=== PATIENT | male | born 1980 | race Caucasian/White ===

== ENCOUNTER 2023-02-22 14:28 | Outpatient (CLI) | payer MEDICARE, MEDICAID, SELFPAY ==
--- OUTSIDE RECORDS SUMMARY | 2023-02-24 09:41 | XMS_ITS ---
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 730652478308889 Problem Encounter for attention to gastrostomy Z43.1 Active 740209558 Problem Other cerebrovascular disease I67.89 Active 28754127 Problem Profound intellectual disabilities F73 Active 29649792 Problem Absence epileptic syndrome, intractable, 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 ALLERGIES Substance Reaction Event Type Date Status Penicillin Unknown Drug Allergy May, Active Levofloxacin Unknown Drug Allergy May, Active Aspirin Unknown Drug Allergy May, Active Vicks BabyRub swelling Drug Allergy May, Active ENCOUNTERS Encounter Location Date Diagnosis [facility] [address] [place] [address] January, Mishawaka-Gastaut syndrome, intractable, 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 [facility] [address] [place] [address] Nov, [place]-Gastaut syndrome, intractable, 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 [facility] [address] [place] [address] Nov, [facility] [address] [place] [address] Oct, [facility] [address] [place] [address] Sep, [facility] [address] [place] [address] Sep, Ayaan-Gastaut syndrome, intractable, 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 [facility] [address] [place] [address] Sep, [facility] [address] [place] [address] Aug, [place]awaka-Gastaut syndrome, intractable, 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 [facility] [address] [place] [address] Jul, [place]awaka-Gastaut syndrome, intractable, 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 [facility] [address] [place] [address] Jul, [facility] [address] [place] [address] Jul, M[place]awaka-Gastaut syndrome, intractable, 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 [facility] [address] [place] [address] Jun, M[place]awaka-Gastaut syndrome, intractable, 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 [facility] [address] [place] [address] May, Ayaan-Gastaut syndrome, intractable, 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 and Other intermediate (current) drug therapy Z79.899 [facility] [address] [place] [address] 15 May, 2022 [facility] [address] [place] [address] May, [facility] [address] [place] [address] May, Ayaan-Gastaut syndrome, intractable, 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 and Other intermediate (current) drug therapy Z79.899 [facility] [address] [place] [address] Apr, Ayaan-Gastaut syndrome, intractable, 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 [facility] [address] [place] [address] Apr, [facility] [address] [place] [address] Apr, [facility] [address] [place] [address] Mar, [facility] [address] [place] [address] Feb, Mishawaka-Gastaut syndrome, intractable, 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 [facility] [address] [place] [address] January, [facility] [address] [place] [address] Nov, [facility] [address] [place] [address] Nov, [facility] [address] [place] [address] Nov, [facility] [address] [place] [address] Nov, [facility] [address] [place] [address] Nov, Ayaan-Gastaut syndrome, intractable, 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 [facility] [address] [place] [address] Oct, [facility] [address] [place] [address] Oct, [facility] [address] [place] [address] 16 Oct, 2021 Mishawaka-Gastaut syndrome, intractable, 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 and Other intermediate (current) drug therapy Z79.899 [facility] [address] [place] [address] Oct, Ayaan-Gastaut syndrome, intractable, 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 [facility] [address] [place] [address] Sep, [facility] [address] [place] [address] 30 Aug, 2021 Mishawaka-Gastaut syndrome, intractable, 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 [facility] [address] [place] [address] 20 Aug, 2021 Mishawaka-Gastaut syndrome, intractable, 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 [facility] [address] [place] [address] 16 Aug, 2021 [place]ishawaka-Gastaut syndrome, intractable, 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 [facility] [address] [place] [address] 09 Aug, 2021 [facility] [address] [place] [address] Aug, Ayaan-Gastaut syndrome, intractable, 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 [facility] [address] [place] [address] Aug, [facility] [address] [place] [address] Aug, [facility] [address] [place] [address] Aug, [facility] [address] [place] [address] Aug, [facility] [address] [place] [address] Jul, Mishawaka-Gastaut syndrome, intractable, 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 [facility] [address] [place] [address] Jul, Mishawaka-Gastaut syndrome, intractable, 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 [facility] [address] [place] [address] Jul, [facility] [address] [place] [address] Jul, [facility] [address] [place] [address] Jul, Ayaan-Gastaut syndrome, intractable, 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 [facility] [address] [place] [address] Jun, [facility] [address] [place] [address] Apr, Mishawaka-Gastaut syndrome, intractable, 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 [facility] [address] [place] [address] Apr, Mishawaka-Gastaut syndrome, intractable, 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 and Other watermaster (current) drug therapy Z79.899 [facility] [address] [place] [address] Apr, [facility] [address] [place] [address] Apr, [facility] [address] [place] [address] Mar, Mishawaka-Gastaut syndrome, intractable, 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 [facility] [address] [place] [address] Mar, Mishawaka-Gastaut syndrome, intractable, 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 [facility] [address] [place] [address] Mar, [facility] [address] [place] [address] Mar, Ayaan-Gastaut syndrome, intractable, 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 [facility] [address] [place] [address] January, Ayaan-Gastaut syndrome, intractable, 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 [facility] [address] [place] [address] Dec, [facility] [address] [place] [address] Dec, Mishawaka-Gastaut syndrome, intractable, 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 [facility] [address] [place] [address] Dec, [facility] [address] [place] [address] Sep, [facility] [address] [place] [address] Sep, Mishawaka-Gastaut syndrome, intractable, 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 and Other watermaster (current) drug therapy Z79.899 [facility] [address] [place] [address] Sep, Ayaan-Gastaut syndrome, intractable, 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 [facility] [address] [place] [address] Jul, Ayaan-Gastaut syndrome, intractable, 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 [facility] [address] [place] [address] Jul, [facility] [address] [place] [address] Jul, [facility] [address] [place] [address] Jun, [facility] [address] [place] [address] Apr, Mishawaka-Gastaut syndrome, intractable, 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 [facility] [address] [place] [address] Mar, Mishawaka-Gastaut syndrome, intractable, 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 and Other watermaster (current) drug therapy Z79.899 [facility] [address] [place] [address] Feb, [facility] [address] [place] [address] January, Ayaan-Gastaut syndrome, intractable, 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 [facility] [address] [place] [address] January, [facility] [address] [place] [address] January, [facility] [address] [place] [address] Nov, [facility] [address] [place] [address] Oct, [facility] [address] [place] [address] Oct, Mishawaka-Gastaut syndrome, intractable, 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 [facility] [address] [place] [address] Sep, Ayaan-Gastaut syndrome, intractable, 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 and Other intermediate (current) drug therapy Z79.899 [facility] [address] [place] [address] Sep, Ayaan-Gastaut syndrome, intractable, 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 [facility] [address] [place] [address] Sep, [facility] [address] [place] [address] Sep, Mishawaka-Gastaut syndrome, intractable, 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 [facility] [address] [place] [address] Jul, [facility] [address] [place] [address] Jul, [facility] [address] [place] [address] May, [facility] [address] [place] [address] May, Mishawaka-Gastaut syndrome, intractable, 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 and Other watermaster (current) drug therapy Z79.899 [facility] [address] [place] [address] May, Mishawaka-Gastaut syndrome, intractable, 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 [facility] [address] [place] [address] May, Mishawaka-Gastaut syndrome, intractable, 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 [facility] [address] [place] [address] May, Mishawaka-Gastaut syndrome, intractable, 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 [facility] [address] [place] [address] Feb, Ayaan-Gastaut syndrome, intractable, 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 [place] [facility] [address] [place], [place] [id number] Feb, [facility] [address] [place] [address] Feb, Mishawaka-Gastaut syndrome, intractable, 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 and Other intermediate (current) drug therapy Z79.899 [facility] [address] [place] [address] Feb, Mishawaka-Gastaut syndrome, intractable, 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 and Other intermediate (current) drug therapy Z79.899 [facility] [address] [place] [address] Feb, Mishawaka-Gastaut syndrome, intractable, 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 [facility] [address] [place] [address] Feb, [facility] [address] [place] [address] January, Other watermaster (current) drug therapy Z79.899 [facility] [address] [place] [address] Dec, [facility] [address] [place] [address] Dec, [facility] [address] [place] [address] Nov, [facility] [address] [place] [address] Nov, Ayaan-Gastaut syndrome, intractable, 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 and Other watermaster (current) drug therapy Z79.899 [facility] [address] [place] [address] Nov, [facility] [address] [place] [address] Nov, [facility] [address] [place] [address] Nov, [facility] [address] [place] [address] Nov, [facility] [address] [place] [address] Nov, Mishawaka-Gastaut syndrome, intractable, 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 and Other intermediate (current) drug therapy Z79.899 [facility] [address] [place] [address] Nov, [facility] [address] [place] [address] Oct, [facility] [address] [place] [address] Oct, [facility] [address] [place] [address] Oct, Ayaan-Gastaut syndrome, intractable, 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 [facility] [address] [place] [address] Sep, Ayaan-Gastaut syndrome, intractable, 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 [facility] [address] [place] [address] Sep, [facility] [address] [place] [address] Sep, [facility] [address] [place] [address] Sep, Ayaan-Gastaut syndrome, intractable, 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 [facility] [address] [place] [address] Sep, [facility] [address] [place] [address] Sep, [facility] [address] [place] [address] Sep, Mishawaka-Gastaut syndrome, intractable, 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 [place] [facility] [address] [facility] [address] [place], [place] [address] Sep, [facility] [address] [place] [address] Sep, [facility] [address] [place] [address] Sep, [facility] [address] [place] [address] Aug, Mishawaka-Gastaut syndrome, intractable, 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 [facility] [address] [place] [address] Aug, [facility] [address] [place] [address] Aug, Mishawaka-Gastaut syndrome, intractable, 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 [facility] [address] [place] [address] Aug, Mishawaka-Gastaut syndrome, intractable, 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 [facility] [address] [place] [address] Aug, [facility] [address] [place] [address] Aug, [facility] [address] [place] [address] Jul, [facility] [address] [place] [address] Jul, [facility] [address] [place] [address] Jul, Mishawaka-Gastaut syndrome, intractable, 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 and Other intermediate (current) drug therapy Z79.899 [facility] [address] [place] [address] Jun, Ayaan-Gastaut syndrome, intractable, 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 [facility] [address] [place] [address] Jun, Mishawaka-Gastaut syndrome, intractable, 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 [facility] [address] [place] [address] Jun, [place]ishawaka-Gastaut syndrome, intractable, 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 [facility] [address] [place] [address] May, [facility] [address] [place] [address] May, Ayaan-Gastaut syndrome, intractable, 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 [facility] [address] [place] [address] Jun, [facility] [address] [place] [address] Jun, [facility] [address] [place] [address] May, Mishawaka-Gastaut syndrome, intractable, 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 [facility] [address] [place] [address] Feb, Mishawaka-Gastaut syndrome, intractable, 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 [facility] [address] [place] [address] Sep, [facility] [address] [place] [address] Sep, [facility] [address] [place] [address] Aug, Ayaan-Gastaut syndrome, intractable, 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 [facility] [address] [place] [address] Jun, Ayaan-Gastaut syndrome, intractable, 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 and Other intermediate (current) drug therapy Z79.899 [facility] [address] [place] [address] Jun, [facility] [address] [place] [address] Jun, [facility] [address] [place] [address] 15 May, 2016 Other watermaster (current) drug therapy Z79.899 [facility] [address] [place] [address] 14 May, 2016 [facility] [address] [place] [address] 14 May, 2016 Other watermaster (current) drug therapy Z79.899 and Absence epileptic syndrome, intractable, 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 [facility] [address] [place] [address] January, Other intermediate (current) drug therapy Z79.899 [facility] [address] [place] [address] January, [facility] [address] [place] [address] Oct, [facility] [address] [place] [address] Sep, [facility] [address] [place] [address] Jul, [facility] [address] [place] [address] Jun, [facility] [address] [place] [address] Jun, Other watermaster (current) drug therapy Z79.899 ; Encounter for attention to gastrostomy Z43.1 ; Profound intellectual disabilities F73 and Absence epileptic syndrome, intractable, 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 [facility] [address] [place] [address] Jun, Absence epileptic syndrome, intractable, 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 [facility] [address] [place] [address] Mar, 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 [facility] [address] [place] [address] Mar, [facility] [address] [place] [address] Mar, Encounter for long-term (current) use of other medications V58.69 and 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 [facility] [address] [place] [address] Mar, Unspecified epilepsy without mention of intractable epilepsy 345.90 [facility] [address] [place] [address] Feb, [facility] [address] [facility] [address] [address] Feb, [facility] [address] [address] Aug, [facility] [address] [facility] [address] [address] Feb, 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 ; Profound mental retardation 318.2 ; Acute, but ill-defined, cerebrovascular disease 436 and Attention to gastrostomy V55.1 [facility] [address] [place] [address] May, 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 ; Acute, but ill-defined, cerebrovascular disease 436 and Attention to gastrostomy V55.1 [facility] [address] [address] January, [facility] [address] [address] January, IMMUNIZATIONS No Known Immunizations SOCIAL HISTORY Qualifiers Date No REASON FOR REFERRAL FUNCTIONAL STATUS PLAN OF CARE Activity Details Future Test CBC (INCLUDES DIFF/P LT) 20220604 Future Test CLOBAZAM 20220604 Future Test COMPREHENSIVE METABO LIC PANEL 20220604 Future Test LAMOTRIGINE 20220604 Future Test LEVETIRACETAM Future Test RUFINAMIDE 20220604 Future Test CBC (INCLUDES DIFF/P LT) 50115462 Future Test COMPREHENSIVE METABO LIC PANEL 88408877 Future Test LEVETIRACETAM 16 Future Test RUFINAMIDE 20211029 Future Test RETICULOCYTE COUNT 2 9562100 Future Test LAMOTRIGINE 74194327 Future Test FELBAMATE 09380596 Future Test CLOBAZAM 85441039 Future Test RUFINAMIDE 85791738 Future Test CLOBAZAM 32485314 Future Test FELBAMATE 88621293 Future Test LEVETIRACETAM 354104 19 Future Test RUFINAMIDE 84702760 Future Test LAMOTRIGINE 63651415 Future Test COMPREHENSIVE METABO LIC PANEL 15832324 Future Test CBC (INCLUDES DIFF/P LT) 13846698 Future Test CBC (INCLUDES DIFF/P LT) 18489473 Future Test COMPREHENSIVE METABO LIC PANEL 49672229 Future Test CLOBAZAM 01052591 Future Test LAMOTRIGINE 06368989 Future Test RUFINAMIDE 78863530 Future Test FELBAMATE 17474312 Future Test LEVETIRACETAM 054594 20 Future Test HEPATIC FUNCTION LEVINE EL 31523508 Future Test CLOBAZAM 84883981 Future Test LAMOTRIGINE 80165555 Future Test RUFINAMIDE 78598353 Future Test FELBAMATE 77649659 Future Test LEVETIRACETAM 056212 26 Future Test Liver Panel (LIVP) 2 9234668 Future Test Liver Panel (LIVP) 2 8699012 Future Test COMPREHENSIVE METABO LIC PANEL 92874501 Future Test CLOBAZAM 55544464 Future Test LAMOTRIGINE 24927564 Future Test RUFINAMIDE 67449834 Future Test LEVETIRACETAM 140520 07 Future Test FELBAMATE 80130079 Future Test CBC (INCLUDES DIFF/P LT) 26009955 Future Test RETICULOCYTE COUNT 2 3364683 Future Test HEPATIC FUNCTION LEVINE EL 74545584 Future Test CLOBAZAM 90914713 Future Test FELBAMATE 63290875 Future Test LAMOTRIGINE 01624831 Future Test LEVETIRACETAM 381866 21 Future Test RUFINAMIDE 52855024 Future Test CBC (INCLUDES DIFF/P LT) 30303323 Future Test RETICULOCYTE COUNT 2 4363728 Future Test COMPREHENSIVE METABO LIC PANEL [id number] Future Test AMMONIA (P) [id number] Pending Test COMPREHENSIVE METABO LIC PANEL Pending Test CBC (INCLUDES DIFF/P LT) Pending Test CLOBAZAM Pending Test FELBAMATE Pending Test LAMOTRIGINE Pending Test LEVETIRACETAM Pending Test RUFINAMIDE VITAL SIGNS Weight 60 kg 2021-05-01 Weight 64.9 kg 2019-06-08 Weight 61.6 kg 2019-03-07 Weight 62.5 kg 2015-06-13 Weight 70 kg 2010-05-20 Height unable to obtain in 2020-09-26 Height unable to obtain in 2019-06-08 Height unable to obtain in 2019-03-07 Height unable to obtain in 2018-07-20 Height unable to obtain in 2017-06-01 Height unable to obtain in 2016-06-26 Height unable to obtain in 2015-06-13 Height unable to obtain in 2015-03-13 Height unable to obtain in 2012-03-08 Heart Rate 44 /min 2019-06-08 Heart Rate 78 /min 2018-07-20 Heart Rate 77 /min 2016-06-26 Respiratory Rate 18 /min 2017-06-01 Blood pressure systolic 89 mm Hg Blood pressure diastolic 60 mm Hg 2019-05 MEDICATIONS Medication Instructions Dosage Frequency Start Date End Date Duration Status Furosemide 20 MG Orally as needed (prn) 1 tablet Active Dulcolax (10 MG) Rectal qd 1 suppository as needed for constipation 24h 30 day(s) Active Centrum Orally qd 10 cc 24h Active Azelastine HCl 0.1 % Nasally Twice a day 1 puff in each nostril 12h 30 day(s) Active Rufinamide 200 MG TAKE 1 TABLET BY MOUTH EVERY MORNING AT 5AM, AND 2 TABLETS BY MOUTH EVERY EVENING AT 7:30PM DIRECTED. NEED TO SCHEDULE APPT FOR FURTHER FILLS. 90 Active immodium 1 mg via g-tube as directed 2 tab Active Epidiolex (cannabidiol) Orally at bedtime (q hs) 4 mL am and 6ml Sep, 30 days Active PriLOSEC OTC 20 MG Orally Once a day 1 tablet 30 minutes before morning meal 24h 30 day(s) Active LaMICtal 100 MG TAKE 1.5 TABLETS BY MOUTH EVERY MORNING AND TAKE ONE TABLET BY MOUTH MIDDAY AND TAKE 1.5 TABLET BY MOUTH AT 9PM VIA G-TUDE DIRECTED 30 Active Felbamate 600 MG/5ML GIVE 12.5 ML BY MOUTH AT 5 AM, 10 ML AT 1 PM AND 10 ML AT 7:30 PM 90 Active cloBAZam 10 MG via g-tube as directed 1.5 tabs (15mg) am 1 tab (10mg) pm Jul, 30 days Active Xyzal Allergy 24HR 5 MG Orally Once a day 1 tablet in the evening 24h 30 day(s) Active Haldol 5 MG/ML Injection as needed for agitation 0.03 ml Active Ibuprofen 600 MG via g-tube Three times a day 1 tablet PRN up to 3x daily PRN 8h Active Mometasone Furoate 50 MCG/ACT Nasally Once a day 2 sprays in each nostril 24h 30 day(s) Active Keppra 100 MG/ML via g-tube as directed 15mL in the AM, 16mL in the PM daily. Give extra 2mL PRN more than one grand mal sz in a day. May repeat PRN dose x 3 within 24 hours 30 days Active Temazepam Orally q hs 15mg Ac tive Baclofen 20 MG TAKE 1 TABLET (20MG) PER G-TUBE FOUR TIMES A DAY. 18 Active Diastat AcuDial (20 MG) Rectal PRN for 3 GTC sz in a row. If sz cont >2min admin 12.5 mg, may repeat x1 if sz cont 2min 20mg (max dose 40mg/in 24 hrs) 30 days Active LaMICtal 200 MG 1 TABLET VIA G-TUBE THREE TIMES A DAY (TID) 30 DAY(S) 30 Active PROCEDURES Procedure Date Ordered Result Body Site NON-VIDEO EEG >1 HOUR March 13, 2015 Video EEG with interpretation 12-24 hrs Sep 29, 2018 Video EEG with interpretation 12-24 hrs Sep 28, 2018 Video EEG with interpretation <12 hours (Mod 52) Sep [id number] PHONE E/M BY PHYS 21-30 MIN May 01, 2021 RESULTS Name Result Date Reference Range CBC (INCLUDES DIFF/PLT) 2022-06-11 ABSOLUTE BASOPHILS ABSOLUTE EOSINOPHILS ABSOLUTE LYMPHOCYTES ABSOLUTE METAMYELOCYTES ABSOLUTE MONOCYTES ABSOLUTE PMN,ADULT BASOPHILS BLASTS CBC MORPHOLOGY COMMENT(S) EOSINOPHILS HEMATOCRIT HEMOGLOBIN IMMATURE GRAN IMMATURE GRAN ABSOLUTE LYMPHOCYTES MCH MCHC MCV METAMYELOCYTES MONOCYTES MORPHOLOGY MPV MYELOCYTES OTHER CELLS PLATELET COUNT PLATELET ESTIMATION PMN, ADULT PROMYELOCYTES RDW RED BLOOD CELL COUNT WHITE BLOOD CELL COUNT WHITE BLOOD CELL COUNT RED BLOOD CELL COUNT HEMOGLOBIN 13.4 HEMATOCRIT MCV MCH MCHC RDW PLATELET COUNT 223 NEUTROPHILS BAND NEUTROPHILS ABSOLUTE BAND NEUTROPHILS METAMYELOCYTES ABSOLUTE METAMYELOCYTES MYELOCYTES ABSOLUTE MYELOCYTES PROMYELOCYTES ABSOLUTE PROMYELOCYTES ABSOLUTE NEUTROPHILS 2.45 LYMPHOCYTES REACTIVE LYMPHOCYTES ABSOLUTE LYMPHOCYTES MONOCYTES ABSOLUTE MONOCYTES EOSINOPHILS ABSOLUTE EOSINOPHILS BASOPHILS ABSOLUTE BASOPHILS BLASTS ABSOLUTE BLASTS NUCLEATED RBC ABSOLUTE NUCLEATED RBC COMMENT(S) MPV CLOBAZAM 2022-06-11 CLOBAZAM 315.0 DESMETHYLCLOBAZAM CLOBAZAM COMPREHENSIVE METABOLIC PANEL 2022-06-11 GLUCOSE UREA NITROGEN (BUN) CREATININE 0.43 eGFR NON-AFR. [facility] eGFR BUN/CREATININE RATIO SODIUM 135 POTASSIUM CHLORIDE CARBON DIOXIDE CALCIUM PROTEIN, TOTAL ALBUMIN GLOBULIN ALBUMIN/GLOBULIN RATIO BILIRUBIN, TOTAL ALKALINE PHOSPHATASE 120 AST 28 ALT 24 EGFR LAMOTRIGINE 2022-06-11 LAMOTRIGINE 10.6 LEVETIRACETAM 2022-06-11 LEVETIRACETAM 53.0 5 - 45 mcg/mL RUFINAMIDE 2022-06-11 RUFINAMIDE LEVEL 4.7 Rufinamide (Banzel) RUFINAMIDE AMMONIA (P) 2021-11-10 Comment: Ammonia 26 Ammonia AMMONIA (P) CBC (INCLUDES DIFF/PLT) 2021-11-10 ABSOLUTE BASOPHILS ABSOLUTE EOSINOPHILS ABSOLUTE LYMPHOCYTES ABSOLUTE METAMYELOCYTES ABSOLUTE MONOCYTES ABSOLUTE PMN,ADULT BASOPHILS BLASTS CBC MORPHOLOGY COMMENT(S) EOSINOPHILS HEMATOCRIT HEMOGLOBIN IMMATURE GRAN IMMATURE GRAN ABSOLUTE LYMPHOCYTES MCH MCHC MCV METAMYELOCYTES MONOCYTES MORPHOLOGY MPV MYELOCYTES OTHER CELLS PLATELET COUNT PLATELET ESTIMATION PMN, ADULT PROMYELOCYTES RDW RED BLOOD CELL COUNT WHITE BLOOD CELL COUNT WHITE BLOOD CELL COUNT RED BLOOD CELL COUNT HEMOGLOBIN 13.2 HEMATOCRIT MCV MCH MCHC RDW PLATELET COUNT 259 NEUTROPHILS BAND NEUTROPHILS ABSOLUTE BAND NEUTROPHILS METAMYELOCYTES ABSOLUTE METAMYELOCYTES MYELOCYTES ABSOLUTE MYELOCYTES PROMYELOCYTES ABSOLUTE PROMYELOCYTES ABSOLUTE NEUTROPHILS 1.85 LYMPHOCYTES REACTIVE LYMPHOCYTES ABSOLUTE LYMPHOCYTES MONOCYTES ABSOLUTE MONOCYTES EOSINOPHILS ABSOLUTE EOSINOPHILS BASOPHILS ABSOLUTE BASOPHILS BLASTS ABSOLUTE BLASTS NUCLEATED RBC ABSOLUTE NUCLEATED RBC COMMENT(S) MPV COMPREHENSIVE METABOLIC PANEL 2021-11-10 GLUCOSE UREA NITROGEN (BUN) CREATININE 0.45 eGFR NON-AFR. [facility] eGFR BUN/CREATININE RATIO SODIUM 133 POTASSIUM CHLORIDE CARBON DIOXIDE CALCIUM PROTEIN, TOTAL ALBUMIN GLOBULIN ALBUMIN/GLOBULIN RATIO BILIRUBIN, TOTAL ALKALINE PHOSPHATASE 97 AST 23 ALT 19 EGFR LEVETIRACETAM 2021-11-10 LEVETIRACETAM 24.2 5 - 45 mcg/mL RUFINAMIDE 2021-11-10 RUFINAMIDE LEVEL 2.6 Rufinamide (Banzel) RUFINAMIDE RETICULOCYTE COUNT 2021-11-10 RETICULOCYTE COUNT, 1.18 RETICULOCYTE, ABSOLUTE 45.8 LAMOTRIGINE 2021-11-10 LAMOTRIGINE 9.8 FELBAMATE 2021-11-10 FELBAMATE 122.4 CLOBAZAM 2021-11-10 CLOBAZAM 196 DESMETHYLCLOBAZAM CLOBAZAM LEVETIRACETAM 2019-11-20 LEVETIRACETAM 42.3 5 - 45 mcg/mL FELBAMATE 2019-11-20 FELBAMATE 116 RUFINAMIDE 2019-11-20 RUFINAMIDE LEVEL 3.7 Rufinamide (Banzel) RUFINAMIDE LAMOTRIGINE 2019-11-20 LAMOTRIGINE 12.7 CLOBAZAM 2019-11-20 CLOBAZAM 360 DESMETHYLCLOBAZAM CLOBAZAM COMPREHENSIVE METABOLIC PANEL 2019-11-20 GLUCOSE UREA NITROGEN (BUN) CREATININE 0.4 eGFR NON-AFR. [facility] eGFR BUN/CREATININE RATIO SODIUM 138 POTASSIUM CHLORIDE CARBON DIOXIDE CALCIUM PROTEIN, TOTAL ALBUMIN GLOBULIN ALBUMIN/GLOBULIN RATIO BILIRUBIN, TOTAL ALKALINE PHOSPHATASE 113 AST 33 ALT 30 EGFR Liver Panel (LIVP) 2019-05-23 Bilirubin- Direct Albumin ALK Phosphatase 111 ALT 29 AST 35 Bilirubin- Total Protein- Total LAMOTRIGINE 2019-03-01 LAMOTRIGINE 11.6 COMPREHENSIVE METABOLIC PANEL 2019-02-28 GLUCOSE UREA NITROGEN (BUN) CREATININE 0.5 eGFR NON-AFR. [facility] eGFR BUN/CREATININE RATIO SODIUM 140 POTASSIUM CHLORIDE CARBON DIOXIDE CALCIUM PROTEIN, TOTAL ALBUMIN GLOBULIN ALBUMIN/GLOBULIN RATIO BILIRUBIN, TOTAL ALKALINE PHOSPHATASE 113 AST 43 ALT 45 EGFR Liver Panel (LIVP) 2019-02-28 Bilirubin- Direct Albumin ALK Phosphatase 113 ALT 45 AST 43 Bilirubin- Total Protein- Total CLOBAZAM 2018-11-17 CLOBAZAM DESMETHYLCLOBAZAM CLOBAZAM 216 HEPATIC FUNCTION PANEL 2018-11-17 PROTEIN, TOTAL ALBUMIN GLOBULIN ALBUMIN/GLOBULIN RATIO BILIRUBIN, TOTAL BILIRUBIN, DIRECT BILIRUBIN, INDIRECT ALKALINE PHOSPHATASE 146 AST 22 ALT 44 RETICULOCYTE COUNT 2018-11-17 RETICULOCYTE COUNT, 1.4 RETICULOCYTE, ABSOLUTE 0.06 CBC (INCLUDES DIFF/PLT) 2018-11-17 ABSOLUTE BASOPHILS ABSOLUTE EOSINOPHILS ABSOLUTE LYMPHOCYTES ABSOLUTE METAMYELOCYTES ABSOLUTE MONOCYTES ABSOLUTE PMN,ADULT BASOPHILS BLASTS CBC MORPHOLOGY COMMENT(S) EOSINOPHILS HEMATOCRIT HEMOGLOBIN IMMATURE GRAN IMMATURE GRAN ABSOLUTE LYMPHOCYTES MCH MCHC MCV METAMYELOCYTES MONOCYTES MORPHOLOGY MPV MYELOCYTES OTHER CELLS PLATELET COUNT PLATELET ESTIMATION PMN, ADULT PROMYELOCYTES RDW RED BLOOD CELL COUNT WHITE BLOOD CELL COUNT WHITE BLOOD CELL COUNT 4.9 RED BLOOD CELL COUNT HEMOGLOBIN 13.1 HEMATOCRIT MCV MCH MCHC RDW PLATELET COUNT 254 NEUTROPHILS BAND NEUTROPHILS ABSOLUTE BAND NEUTROPHILS METAMYELOCYTES ABSOLUTE METAMYELOCYTES MYELOCYTES ABSOLUTE MYELOCYTES PROMYELOCYTES ABSOLUTE PROMYELOCYTES ABSOLUTE NEUTROPHILS 2.6 LYMPHOCYTES REACTIVE LYMPHOCYTES ABSOLUTE LYMPHOCYTES MONOCYTES ABSOLUTE MONOCYTES EOSINOPHILS ABSOLUTE EOSINOPHILS BASOPHILS ABSOLUTE BASOPHILS BLASTS ABSOLUTE BLASTS NUCLEATED RBC ABSOLUTE NUCLEATED RBC COMMENT(S) MPV FELBAMATE 2018-11-17 FELBAMATE 193 LAMOTRIGINE 2018-11-17 LAMOTRIGINE 14.7 RUFINAMIDE 2018-11-17 RUFINAMIDE LEVEL Rufinamide (Banzel) RUFINAMIDE 4.9 LEVETIRACETAM 2018-11-17 LEVETIRACETAM 45.6 5 - 45 mcg/mL CLOBAZAM 2018-08-17 CLOBAZAM DESMETHYLCLOBAZAM CLOBAZAM 59 FELBAMATE 2018-08-17 FELBAMATE 116 LAMOTRIGINE 2018-08-17 LAMOTRIGINE 15.0 LEVETIRACETAM 2018-08-17 LEVETIRACETAM 37.2 5 - 45 mcg/mL RUFINAMIDE 2018-08-17 RUFINAMIDE LEVEL Rufinamide (Banzel) RUFINAMIDE 5.6 CBC (INCLUDES DIFF/PLT) 2018-08-17 ABSOLUTE BASOPHILS ABSOLUTE EOSINOPHILS ABSOLUTE LYMPHOCYTES ABSOLUTE METAMYELOCYTES ABSOLUTE MONOCYTES ABSOLUTE PMN,ADULT BASOPHILS BLASTS CBC MORPHOLOGY COMMENT(S) EOSINOPHILS HEMATOCRIT HEMOGLOBIN IMMATURE GRAN IMMATURE GRAN ABSOLUTE LYMPHOCYTES MCH MCHC MCV METAMYELOCYTES MONOCYTES MORPHOLOGY MPV MYELOCYTES OTHER CELLS PLATELET COUNT PLATELET ESTIMATION PMN, ADULT PROMYELOCYTES RDW RED BLOOD CELL COUNT WHITE BLOOD CELL COUNT WHITE BLOOD CELL COUNT 5.25 RED BLOOD CELL COUNT HEMOGLOBIN 13.8 HEMATOCRIT MCV MCH MCHC RDW PLATELET COUNT 344 NEUTROPHILS BAND NEUTROPHILS ABSOLUTE BAND NEUTROPHILS METAMYELOCYTES ABSOLUTE METAMYELOCYTES MYELOCYTES ABSOLUTE MYELOCYTES PROMYELOCYTES ABSOLUTE PROMYELOCYTES ABSOLUTE NEUTROPHILS 2.85 LYMPHOCYTES REACTIVE LYMPHOCYTES ABSOLUTE LYMPHOCYTES MONOCYTES ABSOLUTE MONOCYTES EOSINOPHILS ABSOLUTE EOSINOPHILS BASOPHILS ABSOLUTE BASOPHILS BLASTS ABSOLUTE BLASTS NUCLEATED RBC ABSOLUTE NUCLEATED RBC COMMENT(S) MPV RETICULOCYTE COUNT 2018-08-17 RETICULOCYTE COUNT, 1.0 RETICULOCYTE, ABSOLUTE COMPREHENSIVE METABOLIC PANEL 2018-08-17 GLUCOSE UREA NITROGEN (BUN) CREATININE 0.5 eGFR NON-AFR. [facility] eGFR BUN/CREATININE RATIO SODIUM 140 POTASSIUM CHLORIDE CARBON DIOXIDE CALCIUM PROTEIN, TOTAL ALBUMIN GLOBULIN ALBUMIN/GLOBULIN RATIO BILIRUBIN, TOTAL ALKALINE PHOSPHATASE 129 AST 50 ALT 74 EGFR AMMONIA (P) 2018-08-17 Comment: Ammonia Ammonia 19 AMMONIA (P) REASON FOR VISIT epidiolex refill, Felbamate, cloBAZam & Banzel refills , f/u appt, Follow up for intractable Ayaan-Gastaut syndrome, Status post lateral medullary stroke, Static encephalopathy, Profound intellectual disabilities, Medication management, Discussion regarding current seizures, anticonvulsants and future plan of care, Urgent Banzel Refill, banzel, BACLOFEN, Diastat refill, Sz Activity, [id number] refill, refill needed, Break through szs, DIASTAT 20MG GEL, epidiolex refill , Send Lab Order,Where To Get Medical Cannabis, 05/14/22 State registry - , f/u appt, Follow up for intractable [place]-Gastaut syndrome, Status post lateral medullary stroke, Static encephalopathy, Profound intellectual disabilities, Medication management, Discussion regarding current seizures, anticonvulsants and future plan of care, epidiolex refill, Refill , 04/16/2022- Scheduled appt - needs appt for 6 month f/u appt , med question, clobazam refill, Drug Interactions, keppra fermin refill, PA needed, fbm refill, epidiolex weight, Req for PA for Epidiolex, Lab orders-Pt is in clinic , LAB RESULTS SCANNE IN - 11/12 PA needed for epidiolex, lab, Lab results , Meds Question , epidiolex refill, Refill Colbazam, rufinamide, ZNS, diastat refill, Progress of PA?, Geri arana, pt out, PA pending, req c/b, PA needed, Pt OUT----Geri PA--waitingGeri PA--diff pharm, LTG PA, Banzel Refill PA, brand name meds , 07/15 Mom called in--Refills, Felbatol refill needed, escribe Meds, Follow up for intractable Ayaan-Gastaut syndrome, Status post lateral medullary stroke, Static encephalopathy, Profound intellectual disabilities, Medication management, Discussion regarding current seizures, anticonvulsants and future plan of care, Jj received fax!, failed escribe fbm refill , epidiolex refill, Lamictal--clarification needed, Refill request Baclofen, lamictal refill, [place] refill request, LMTCB/epidiolex, epidiolex , SCANNED IN - lab results, visit summary, Follow up for intractable [place]-Gastaut syndrome, Status post lateral medullary stroke, Static encephalopathy, Profound intellectual disabilities,Medication management, Discussion regarding current seizures, anticonvulsants and future plan of care, epidiolex refill, clobazam refill, Keppra PA (out of meds), Keppra / Levo Rx refills, update/questions about meds, epidiolex refill, Follow up for intractable [place]-Gastaut syndrome, Status post lateral medullary stroke, Static encephalopathy, Profound intellectual disabilities, Medication management, Discussion regarding current seizures, anticonvulsants and future plan of care, 03/14/20 virtual visit?, clobazam rx refill, Epidiolex PA , Epidiolex PA-Almost Out Req cb Wednesday AM, LMTCB 11/28 lab results, Rx, Epidiolex , 6mo fu, Requesting Lab Order, onfi refill, Refill, FBM refill, Pharm onP.A. Paperwork, P.A. for Lamictal Re-Submit, PA Questions , Follow up for intractable [place]-Gastaut syndrome, Status post lateral medullary stroke, Static encephalopathy, Profound intellectual disabi lities, Medication management, Discussion regarding current seizures, anticonvulsants and future plan of care, Levocarnitine/diastat refill, refills, 3 mos, Req Labs , Epidiolex RX, LFT, Follow up for intractable Ayaan-Gastaut syndrome, Status post lateral medullary stroke, Static encephalopathy, Profound intellectual disabilities, Medication management, Discussion regarding current seizures, anticonvulsants and future plan of care, Re-fax lab Orders, Labs - at the lab now, Sleepiness issues w/rx please contact, Med Questions , refill- DZP Gel, epidiolex PA, refill- DZP Gel, Lab orders , Clarify Diastat Order , Rectal valium, Update for the rx Epidiolex-please contact, please advise/Epidiolex PA Update, Post-hospital follow up for intractable [place]-Gastaut syndrome, Status post lateral medullary stroke, Static encephalopathy, Profound intellectual disabilities, Medication management, Discussion regarding current seizures, anticonvulsants and future plan of care, error, refill- DZP Gel, Epidiolex PA , Questions/ Req CB , refill- [place], [facility] , MD to MD?, Seizures, Frequent seizures/status epilepticus, sz activity , Regarding lab results from 08/17/19, lab/update , Please contact PA status , refills, ltg refill fermin , lab results not received yet, labs & clobazam, 07/22 Calling x2 - - PA Clobazem, Fenfluramine study, Follow up for epilepsy, LEV AND LEVO REFILLS, ltg and banzel refills, fbm refill, needs recertification for medical cannabis , banzel refill, Recertification/out of cannabis-back to BD, PA - pt nearly out of meds., Follow up for epilepsy, recertification for [place] medical cannabis program, FBM refill & annual appt, PA for Lamictal , Requesting PA, fbm refill FERMIN, Annual follow up, recertification , CBD recertification-mom called, refills s/b fermin, Appointment reminder for 06/26/2016, apt scheduled-needs appt/refills, Urgent refills needed-please contact, refills, banzel refill, PA needed for Lamictal 300 mg, 07/15 returned your call, pls try again , FBM REFILL--FERMIN, 07/03 order labs/Fax numberfor lab orders, Follow up regarding epilepsy, refills, Discuss CBD Study, New patient visit to re establish care, new/prev pt - Betsey @ 2:30pm, packet, lmtcb re appt, Record request-pending AUSTYN andguardianship papers, 12-month follow up visit for care of epilepsy, 12-month follow up visit for care of intractable epilepsy, EMR prep Insurance Providers Health Insurance Type Health Plan Insurance Address Health Plan Insurance Phone Health Plan Insurance Name Health Plan Coverage Dates Member ID Patient Relationship to Subscriber Patient Address Patient Phone Patient Name Patient Date of Subscriber ID Subscriber Name Subscriber Date of Group No [place] [address] [place] [id number] [place] self Say Hilario [id number] [facility] [address] [address] [facility] [address] MEDICAID [facility] self Say Hilario [id number]
== END 2023-02-22 14:29 | disposition home or self-care (01) ==
PROVIDERS: Visit Provider Emergency Medicine
DX: R41.82 Altered mental status, unspecified (principal)
CPT/HCPCS: A0425; A0427

== ENCOUNTER 2023-03-11 11:05 | Outpatient (CLI) | payer MEDICARE, MEDICAID, SELFPAY ==
--- OUTSIDE RECORDS SUMMARY | 2023-03-16 11:36 | XMS_ITS | Continuity of Care Document ---
Author Name Unknown Organization Unknown Allergies, Adverse Reactions, Alerts Substance Reaction Status codeine Unknown Active aspirin Unknown Active Vicks Vapor Rub Unknown Active Penicillins Unknown Active Celclor Unknown Active Medications Start Date End Date Medication Signa [id number] oxybutynin 15 mg /24 hr oral tablet, extended release Take 1 tab(s) orally once a day for bladder spasms; Do not crush or chew 91092374 tamsulosin 0.4 mg oral capsu le Take 1 cap(s) orally once a day for kidney stones [id number] Fleet Enema 7 g-19 g rectal enema Administer 133 milliliter(s) rectally Up to 4x/day as needed for Constipation 01704730 bisacodyl 10 mg rectal suppo sitory Administer 1 suppository(ies) rectally once a day as needed for Constipation 58012058 Fleet Enema 7 g-19 g rectal enema Administer 118 milliliter(s) rectally once a day for Constipation 42341650 MiraLax - oral p owder for reconstitution Administer 17 gm(s) via g-tube up to 3x/day as needed for Constipation; Mix with 4 to 8 ounces of water 77816240 baclofen 10 mg oral tablet A dminister 2 tab(s) via g-tube 4 times a day for Spasticity; Do not exceed 80mg daily [id number] torsemide 10 mg oral tablet Administer 1 tab(s) via orally or g-tube once a day as needed for Edema 70538939 Keppra 100 mg/mL oral soluti on Administer 2 milliliter(s) orally 3 times a day as needed for Seizures 80674753 Keppra 100 mg/mL oral soluti on Administer (1500mg) 15 milliliter(s) via g-tube once a day (in the morning) for Seizures 96008594 Keppra 100 mg/mL oral soluti on Administer (1600mg) 16 milliliter(s) via g-tube once a day (at bedtime) for Seizures 79094281 NexIUM 20 mg ora l delayed release capsule Administer 1 cap(s) orally once a day for gerd 60415572 simethicone 125 mg oral tablet, chewable Chew 1 tab(s) chewed up to 3x/day as needed for gas and bloating 67140542 LORazepam 2 mg oral tablet A dminister 1 tab(s) orally once a day as needed for agitation 90430038 gabapentin 300 mg oral capsu le Administer 1 cap(s) orally up to 3x/day as needed for postherpetic pain 78521346 loperamide 1 mg/7.5 mL oral liquid Administer 15 milliliter(s) via g-tube up to 4x/day as needed for Diarrhea 78702148 Silvadene 1% topical cream A pply 1 application applied topically 2 times a day as needed for rash on jennifer area 99622289 Milk of Magnesia 8% oral suspension Administer 30 milliliter(s) orally once a day as needed for Constipation; Titrate dose if needed by 5mL's per family discretion. 20864002 Desitin 40% topical paste Ap ply 1 application applied topically to G/J site 2 times a day for skin protectant 99958113 mometasone 100 m cg/inh inhalation aerosol Administer 2 spray(s) in each nostril once a day for Allergies 12103586 antacid/diphenhy dramine/lidocaine 1-1-1 mix solution Administer 15 milliliter(s) orally every 4 hours as needed for mouth and throat pain 07512548 oxygen 1-2LPM dose Administe r 1-2 liters per minute via nasal cannula once a day overnight and PRN as needed for maintain saturations >90% 81913524 ibuprofen 600 mg oral tablet Administer 1 tab(s) via g-tube 3 times a day as needed for pain/fever 58329199 haloperidol 2 mg /mL oral concentrate Administer (1mg) 0.5 milliliter(s) orally every 6 hours as needed for agitation 89989360 hydrocortisone 2.5% cream Ap ply 1 application applied topically once a day as needed for Itching 08720804 clotrimazole top ical 1% topical cream Apply 1 application applied topically once a day as needed for Rash on clients head 95882119 azelastine 0.15% solution Ad pbx inspector 2 spray(s) in each nostril 2 times a day for Allergies 24111696 silver nitrate - dose Apply 1 application applied topically until redness is gone 1-2x/week as needed for redness around G/J stoma 97963843 acetaminophen 650-1000mg dos e Administer 650 to 1000 milligrams via g-tube every 4-6 hours as needed for pain/fever; not to exceed 5 doses in 24 hours 70752267 albuterol 2.5 mg /3 mL (0.083%) inhalation solution Administer 1 vial(s) by nebulizer every 4 hours as needed for wheezing or shortness of breath 36633896 bacitracin - ointment Apply 1 application applied topically once a day as needed for redness/inflammation 78275534 Banzel 200 mg oral tablet Ad pbx inspector 2 tab(s) via g-tube once a day for Seizures 50496313 Banzel 200 mg oral tablet Ad pbx inspector 1 tab(s) via g-tube once a day for Seizures 84606564 benzoyl peroxide topical 4% topical gel Apply 1 application cleanse skin during shower once a day for folliculitis; (Panoxyl Acne Creamy Wash) 51902960 clear eyes cooli ng comfort drops 0.03-0.5% solution Administer 1-2 drop(s) in each eye up to 4x/day as needed for red, watery eyes 51250014 Cleocin T 1% topical solutio n Apply 1 application applied topically to affected areas once a day after washing for folliculitis; (Clindamycin Phosphate 1% Solution) 87262702 Diastat AcuDial 20 mg rectal kit Administer 20 milligrams rectally once as needed for if having more than 10 generalized tonic-clonic seizures per hour or if seizure lasts more than 3 minutes; May repeat 20mg once. If seizures continue, contact 911. 52994379 duoneb - solution Administer 1 vial(s) via nebulization up to 4x/day as needed for wheezing or shortness of breath 41103393 Felbatol 600 mg/ 5 mL oral suspension Administer (1500mg) 12.5 milliliter(s) via g-tube once a day for Seizures 06564836 Felbatol 600 mg/ 5 mL oral suspension Administer (1200mg) 10 milliliter(s) via g-tube 2 times a day for Seizures 93780151 lamotrigine 100 & 200mg tabl et Administer 300 milligrams via g-tube once a day for Seizures 02959723 lamotrigine 100 & 200mg tabl et Administer 350 milligrams via g-tube 2 times a day for Seizures 16037247 levocetirizine 5 mg oral tab let Administer 1 tab(s) orally once a day for Allergies 07913884 lotrisone cream 1-0.05% crea m Apply 1 application applied topically to affected areas 2 times a day as needed for yeast infection 84318932 mycolog 100,000- 0.1 unit/gram ointment Apply 1 application applied topically 2 times a day as needed for fungal infection 36632420 Onfi 10 mg oral tablet Admin ister (15mg) 1.5 tab(s) via g-tube once a day (in the morning) for yvonne-gastout syndrome 00189199 Onfi 10 mg oral tablet Admin ister 1 tab(s) via g-tube once a day in PM for yvonne-gastout syndrome 32652017 oxyCODONE 5 mg oral tablet A dminister 1 tab(s) orally every 6 hours as needed for pain 08206632 82198276 levoFLOXacin 750 mg oral tab let Administer 1 tab(s) orally once a day before breakfast for 10 day(s) for sepsis Problems Type Code Description Effective Start Effective End Onset/Exacerbation Date Unknown G40.911 Epilepsy` unspecified` intractable` with status epilepticus 86520927 [id number] Primary G40.911 Epilepsy` unspecified` intractable` with status epilepticus 23181939 55610887 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
--- OUTSIDE RECORDS SUMMARY | 2023-03-16 11:37 | XMS_ITS ---
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 Active 912568977132742 Problem Encounter for attention to gastrostomy Z43.1 Active 629983639 Problem Other cerebrovascular disease I67.89 Active 57968097 Problem Profound intellectual disabilities F73 Active 86060011 Problem Absence epileptic syndrome, intractable, 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 ALLERGIES Substance Reaction Event Type Date Status Penicillin Unknown Drug Allergy May, Active Levofloxacin Unknown Drug Allergy May, Active Aspirin Unknown Drug Allergy May, Active Vicks BabyRub swelling Drug Allergy May, Active ENCOUNTERS Encounter Location Date Diagnosis [facility] [address] [place] [address] January, Chico-Gastaut syndrome, intractable, 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 [facility] [address] [place] [address] Nov, [place]-Gastaut syndrome, intractable, 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 [facility] [address] [place] [address] Nov, [facility] [address] [place] [address] Oct, [facility] [address] [place] [address] Sep, [facility] [address] [place] [address] Sep, Ayaan-Gastaut syndrome, intractable, 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 [facility] [address] [place] [address] Sep, [facility] [address] [place] [address] Aug, [place]-Gastaut syndrome, intractable, 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 [facility] [address] [place] [address] Jul, [place]-Gastaut syndrome, intractable, 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 [facility] [address] [place] [address] Jul, [facility] [address] [place] [address] Jul, [place]-Gastaut syndrome, intractable, 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 [facility] [address] [place] [address] Jun, [place]-Gastaut syndrome, intractable, 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 [facility] [address] [place] [address] May, Ayaan-Gastaut syndrome, intractable, 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 and Other mcfp (current) drug therapy Z79.899 [facility] [address] [place] [address] 15 May, 2022 [facility] [address] [place] [address] May, [facility] [address] [place] [address] May, Ayaan-Gastaut syndrome, intractable, 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 and Other mcfp (current) drug therapy Z79.899 [facility] [address] [place] [address] Apr, Ayaan-Gastaut syndrome, intractable, 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 [facility] [address] [place] [address] Apr, [facility] [address] [place] [address] Apr, [facility] [address] [place] [address] Mar, [facility] [address] [place] [address] Feb, Chico-Gastaut syndrome, intractable, 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 [facility] [address] [place] [address] January, [facility] [address] [place] [address] Nov, [facility] [address] [place] [address] Nov, [facility] [address] [place] [address] Nov, [facility] [address] [place] [address] Nov, [facility] [address] [place] [address] Nov, Ayaan-Gastaut syndrome, intractable, 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 [facility] [address] [place] [address] Oct, [facility] [address] [place] [address] Oct, [facility] [address] [place] [address] 16 Oct, 2021 [place]-Gastaut syndrome, intractable, 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 and Other mcfp (current) drug therapy Z79.899 [facility] [address] [place] [address] Oct, Ayaan-Gastaut syndrome, intractable, 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 [facility] [address] [place] [address] Sep, [facility] [address] [place] [address] 30 Aug, 2021 [place]-Gastaut syndrome, intractable, 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 [facility] [address] [place] [address] 20 Aug, 2021 [place]-Gastaut syndrome, intractable, 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 [facility] [address] [place] [address] 16 Aug, 2021 [place]-Gastaut syndrome, intractable, 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 [facility] [address] [place] [address] 09 Aug, 2021 [facility] [address] [place] [address] Aug, Ayaan-Gastaut syndrome, intractable, 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 [facility] [address] [place] [address] Aug, [facility] [address] [place] [address] Aug, [facility] [address] [place] [address] Aug, [facility] [address] [place] [address] Aug, [facility] [address] [place] [address] Jul, Chico-Gastaut syndrome, intractable, 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 [facility] [address] [place] [address] Jul, Chico-Gastaut syndrome, intractable, 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 [facility] [address] [place] [address] Jul, [facility] [address] [place] [address] Jul, [facility] [address] [place] [address] Jul, Ayaan-Gastaut syndrome, intractable, 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 [facility] [address] [place] [address] Jun, [facility] [address] [place] [address] Apr, [place]-Gastaut syndrome, intractable, 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 [facility] [address] [place] [address] Apr, Chico-Gastaut syndrome, intractable, 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 and Other senior ui designer (current) drug therapy Z79.899 [facility] [address] [place] [address] Apr, [facility] [address] [place] [address] Apr, [facility] [address] [place] [address] Mar, [place]ico-Gastaut syndrome, intractable, 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 [facility] [address] [place] [address] Mar, [place]-Gastaut syndrome, intractable, 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 [facility] [address] [place] [address] Mar, [facility] [address] [place] [address] Mar, Ayaan-Gastaut syndrome, intractable, 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 [facility] [address] [place] [address] January, Ayaan-Gastaut syndrome, intractable, 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 [facility] [address] [place] [address] Dec, [facility] [address] [place] [address] Dec, Chico-Gastaut syndrome, intractable, 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 [facility] [address] [place] [address] Dec, [facility] [address] [place] [address] Sep, [facility] [address] [place] [address] Sep, Chico-Gastaut syndrome, intractable, 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 and Other senior ui designer (current) drug therapy Z79.899 [facility] [address] [place] [address] Sep, Ayaan-Gastaut syndrome, intractable, 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 [facility] [address] [place] [address] Jul, Ayaan-Gastaut syndrome, intractable, 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 [facility] [address] [place] [address] Jul, [facility] [address] [place] [address] Jul, [facility] [address] [place] [address] Jun, [facility] [address] [place] [address] Apr, Chico-Gastaut syndrome, intractable, 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 [facility] [place] [address] [place] [address] Mar, Chico-Gastaut syndrome, intractable, 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 and Other senior ui designer (current) drug therapy Z79.899 [facility] [address] [place] [address] Feb, [facility] [address] [place] [address] January, Ayaan-Gastaut syndrome, intractable, 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 [facility] [address] [place] [address] January, [facility] [address] [place] [address] January, [facility] [address] [place] [address] Nov, [facility] [address] [place] [address] Oct, [facility] [address] [place] [address] Oct, [place]ico-Gastaut syndrome, intractable, 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 [facility] [address] [place] [address] Sep, Ayaan-Gastaut syndrome, intractable, 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 and Other mcfp (current) drug therapy Z79.899 [facility] [address] [place] [address] Sep, Ayaan-Gastaut syndrome, intractable, 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 [facility] [address] [place] [address] Sep, [facility] [address] [place] [address] Sep, [place]-Gastaut syndrome, intractable, 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 [facility] [address] [place] [address] Jul, [facility] [address] [place] [address] Jul, [facility] [address] [place] [address] May, [facility] [address] [place] [address] May, Chico-Gastaut syndrome, intractable, 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 and Other senior ui designer (current) drug therapy Z79.899 [facility] [address] [place] [address] May, Chico-Gastaut syndrome, intractable, 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 [facility] [address] [place] [address] May, Chico-Gastaut syndrome, intractable, 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 [facility] [address] [place] [address] May, Chico-Gastaut syndrome, intractable, 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 [facility] [address] [place] [address] Feb, Ayaan-Gastaut syndrome, intractable, 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 [place] [facility] [address] [employer] [address] [place], [place] [address] Feb, [facility] [address] [place] [address] Feb, Chico-Gastaut syndrome, intractable, 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 and Other mcfp (current) drug therapy Z79.899 [facility] [address] [place] [address] Feb, Chico-Gastaut syndrome, intractable, 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 and Other mcfp (current) drug therapy Z79.899 [facility] [address] [place] [address] Feb, Chico-Gastaut syndrome, intractable, 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 [facility] [address] [place] [address] Feb, [facility] [address] [place] [address] January, Other senior ui designer (current) drug therapy Z79.899 [facility] [address] [place] [address] Dec, [facility] [address] [place] [address] Dec, [facility] [address] [place] [address] Nov, [facility] [address] [place] [address] Nov, Ayaan-Gastaut syndrome, intractable, 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 and Other senior ui designer (current) drug therapy Z79.899 [facility] [address] [place] [address] Nov, [facility] [address] [place] [address] Nov, [facility] [address] [place] [address] Nov, [facility] [address] [place] [address] Nov, [facility] [address] [place] [address] Nov, Chico-Gastaut syndrome, intractable, 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 and Other mcfp (current) drug therapy Z79.899 [facility] [address] [place] [address] Nov, [facility] [address] [place] [address] Oct, [facility] [address] [place] [address] Oct, [facility] [address] [place] [address] Oct, Ayaan-Gastaut syndrome, intractable, 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 [facility] [address] [place] [address] Sep, Ayaan-Gastaut syndrome, intractable, 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 [facility] [address] [place] [address] Sep, [facility] [address] [place] [address] Sep, [facility] [address] [place] [address] Sep, Ayaan-Gastaut syndrome, intractable, 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 [facility] [address] [place] [address] Sep, [facility] [address] [place] [address] Sep, [facility] [address] [place] [address] Sep, Chico-Gastaut syndrome, intractable, 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 [place] [facility] [address] [facility] [address] [place] [id number] Sep, [facility] [address] [place] [address] Sep, [facility] [address] [place] [address] Sep, [facility] [address] [place] [address] Aug, [place]ico-Gastaut syndrome, intractable, 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 [facility] [address] [place] [address] Aug, [facility] [address] [place] [address] Aug, Chico-Gastaut syndrome, intractable, 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 [facility] [address] [place] [address] Aug, Chico-Gastaut syndrome, intractable, 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 [facility] [address] [place] [address] Aug, [facility] [address] [place] [address] Aug, [facility] [address] [place] [address] Jul, [facility] [address] [place] [address] Jul, [facility] [address] [place] [address] Jul, Chico-Gastaut syndrome, intractable, 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 and Other mcfp (current) drug therapy Z79.899 [facility] [address] [place] [address] Jun, Ayaan-Gastaut syndrome, intractable, 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 [facility] [address] [place] [address] Jun, [place]-Gastaut syndrome, intractable, 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 [facility] [address] [place] [address] Jun, [place]-Gastaut syndrome, intractable, 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 [facility] [address] [place] [address] May, [facility] [address] [place] [address] May, Ayaan-Gastaut syndrome, intractable, 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 [facility] [address] [place] [address] Jun, [facility] [address] [place] [address] Jun, [facility] [address] [place] [address] May, Chico-Gastaut syndrome, intractable, 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 [facility] [address] [place] [address] Feb, [place]-Gastaut syndrome, intractable, 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 [facility] [address] [place] [address] Sep, [facility] [address] [place] [address] Sep, [facility] [address] [place] [address] Aug, Ayaan-Gastaut syndrome, intractable, 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 [facility] [place] [address] [place] [address] Jun, Ayaan-Gastaut syndrome, intractable, 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 and Other mcfp (current) drug therapy Z79.899 [facility] [address] [place] [address] Jun, [facility] [address] [place] [address] Jun, [facility] [address] [place] [address] 15 May, 2016 Other senior ui designer (current) drug therapy Z79.899 [facility] [address] [place] [address] 14 May, 2016 [facility] [address] [place] [address] 14 May, 2016 Other senior ui designer (current) drug therapy Z79.899 and Absence epileptic syndrome, intractable, 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 [facility] [address] [place] [address] January, Other mcfp (current) drug therapy Z79.899 [facility] [address] [place] [address] January, [facility] [address] [place] [address] Oct, [facility] [address] [place] [address] Sep, [facility] [address] [place] [address] Jul, [facility] [address] [place] [address] Jun, [facility] [address] [place] [address] Jun, Other senior ui designer (current) drug therapy Z79.899 ; Encounter for attention to gastrostomy Z43.1 ; Profound intellectual disabilities F73 and Absence epileptic syndrome, intractable, 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 [facility] [address] [place] [address] Jun, Absence epileptic syndrome, intractable, 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 [facility] [address] [place] [address] Mar, 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 [facility] [address] [place] [address] Mar, [facility] [address] [place] [address] Mar, Encounter for long-term (current) use of other medications V58.69 and 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 [facility] [address] [place] [address] Mar, Unspecified epilepsy without mention of intractable epilepsy 345.90 [facility] [address] [place] [address] Feb, [facility] [address] [facility] [address] [address] Feb, [facility] [address] [address] Aug, [facility] [address] [facility] [address] [address] Feb, 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 ; Profound mental retardation 318.2 ; Acute, but ill-defined, cerebrovascular disease 436 and Attention to gastrostomy V55.1 [facility] [address] [place] [address] May, 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 ; Acute, but ill-defined, cerebrovascular disease 436 and Attention to gastrostomy V55.1 [facility] [address] [address] January, [facility] [address] [address] January, IMMUNIZATIONS No Known Immunizations SOCIAL HISTORY Qualifiers Date No REASON FOR REFERRAL FUNCTIONAL STATUS PLAN OF CARE Activity Details Future Test CBC (INCLUDES DIFF/P LT) 20220604 Future Test CLOBAZAM 20220604 Future Test COMPREHENSIVE METABO LIC PANEL 20220604 Future Test LAMOTRIGINE 20220604 Future Test LEVETIRACETAM Future Test RUFINAMIDE 20220604 Future Test CBC (INCLUDES DIFF/P LT) 94625400 Future Test COMPREHENSIVE METABO LIC PANEL 48425375 Future Test LEVETIRACETAM 16 Future Test RUFINAMIDE 20211029 Future Test RETICULOCYTE COUNT 2 4984700 Future Test LAMOTRIGINE 71594642 Future Test FELBAMATE 45865883 Future Test CLOBAZAM 04204271 Future Test RUFINAMIDE 24037130 Future Test CLOBAZAM 41221087 Future Test FELBAMATE 27595966 Future Test LEVETIRACETAM 367826 19 Future Test RUFINAMIDE 11253193 Future Test LAMOTRIGINE 37661426 Future Test COMPREHENSIVE METABO LIC PANEL 60551734 Future Test CBC (INCLUDES DIFF/P LT) 41777044 Future Test CBC (INCLUDES DIFF/P LT) 72035629 Future Test COMPREHENSIVE METABO LIC PANEL 90206424 Future Test CLOBAZAM 98646033 Future Test LAMOTRIGINE 67957964 Future Test RUFINAMIDE 92982158 Future Test FELBAMATE 04290261 Future Test LEVETIRACETAM 042008 20 Future Test HEPATIC FUNCTION LEVINE [place] 96514343 Future Test CLOBAZAM 32890110 Future Test LAMOTRIGINE 73132233 Future Test RUFINAMIDE 41302470 Future Test FELBAMATE 17492285 Future Test LEVETIRACETAM 874865 26 Future Test Liver Panel (LIVP) 2 3664081 Future Test Liver Panel (LIVP) 2 7447798 Future Test COMPREHENSIVE METABO LIC PANEL 98076076 Future Test CLOBAZAM 46706408 Future Test LAMOTRIGINE [id number] Future Test RUFINAMIDE [id number] Future Test LEVETIRACETAM 082221 07 Future Test FELBAMATE [id number] Future Test CBC (INCLUDES DIFF/P LT) [id number] Future Test RETICULOCYTE COUNT 2 8133118 Future Test HEPATIC FUNCTION LEVINE EL [id number] Future Test CLOBAZAM [id number] Future Test FELBAMATE [id number] Future Test LAMOTRIGINE 14830698 Future Test LEVETIRACETAM 522625 21 Future Test RUFINAMIDE [id number] Future Test CBC (INCLUDES DIFF/P LT) 25186056 Future Test RETICULOCYTE COUNT 2 8289622 Future Test COMPREHENSIVE METABO LIC PANEL 38576144 Future Test AMMONIA (P) 33033308 Pending Test COMPREHENSIVE METABO LIC PANEL Pending [...] Frequency Start Date End Date Duration Status Dulcolax (10 MG) Rectal qd 1 suppository as needed for constipation 24h 30 day(s) Active Felbamate 600 MG/5ML GIVE 12.5 ML BY MOUTH AT 5 AM, 10 ML AT 1 PM AND 10 ML AT 7:30 PM 90 Active LaMICtal 100 MG GIVE 1.5 TABLETS EVERY MORNING, 1 MIDDAY AND 1.5 AT 9 PM VIA G-TUBE 30 Active Rufinamide 200 MG TAKE 1 TABLET BY MOUTH EVERY MORNING AT 5 AM, 2 EVERY EVENING AND 7:30 PM DIRECTED 54 Active Diastat AcuDial (20 MG) Rectal PRN for 3 GTC sz in a row. If sz cont >2min admin 12.5 mg, may repeat x1 if sz cont 2min 20mg (max dose 40mg/in 24 hrs) 30 days Active immodium 1 mg via g-tube as directed 2 tab Active Epidiolex (cannabidiol) Orally at bedtime (q hs) 4 mL am and 6ml 30 Sep, 2018 30 days Active PriLOSEC OTC 20 MG Orally Once a day 1 tablet 30 minutes before morning meal 24h 30 day(s) Active Baclofen 20 MG TAKE 1 TABLET (20MG) PER G-TUBE FOUR TIMES A DAY. 18 Active LaMICtal 200 MG TAKE 1 TABLET VIA G-TUBE THREE TIMES DAILY 30 Active Azelastine HCl 0.1 % Nasally Twice a day 1 puff in each nostril 12h 30 day(s) Active Xyzal Allergy 24HR 5 MG Orally Once a day 1 tablet in the evening 24h 30 day(s) Active Haldol 5 MG/ML Injection as needed for agitation 0.03 ml Active Ibuprofen 600 MG via g-tube Three times a day 1 tablet PRN up to 3x daily PRN 8h Active cloBAZam 10 MG via g-tube as directed 1.5 tabs (15mg) am 1 tab (10mg) pm Jul, 30 days Active Keppra 100 MG/ML via g-tube as directed 15mL in the AM, 16mL in the PM daily. Give extra 2mL PRN more than one grand mal sz in a day. May repeat PRN dose x 3 within 24 hours 30 days Active Temazepam Orally q hs 15mg Ac tive Mometasone Furoate 50 MCG/ACT Nasally Once a day 2 sprays in each nostril 24h 30 day(s) Active Furosemide 20 MG Orally as needed (prn) 1 tablet Active Centrum Orally qd 10 cc 24h Active PROCEDURES Procedure Date Ordered Result Body Site NON-VIDEO EEG >1 HOUR March 13, 2015 Video EEG with interpretation 12-24 hrs Sep 29, 2018 PHONE E/M BY PHYS 21-30 MIN May 01, 2021 Video EEG with interpretation <12 hours (Mod 52) Sep 132018 Video EEG with interpretation 12-24 hrs Sep 28, 2018 RESULTS Name Result Date Reference Range CBC [...] UREA NITROGEN (BUN) CREATININE 0.43 eGFR NON-AFR. [place] eGFR BUN/CREATININE RATIO SODIUM 135 POTASSIUM CHLORIDE CARBON DIOXIDE CALCIUM PROTEIN, TOTAL ALBUMIN GLOBULIN ALBUMIN/GLOBULIN RATIO BILIRUBIN, TOTAL ALKALINE PHOSPHATASE 120 AST 28 ALT 24 EGFR LAMOTRIGINE 2022-06-11 LAMOTRIGINE 10.6 LEVETIRACETAM 2022-06-11 LEVETIRACETAM 53.0 5 - 45 mcg/mL RUFINAMIDE 2022-06-11 RUFINAMIDE LEVEL 4.7 Rufinamide (Banzel) RUFINAMIDE AMMONIA (P) 2021-11-10 Comment: Ammonia 26 Ammonia AMMONIA (P) CLOBAZAM 2021-11-10 CLOBAZAM 196 DESMETHYLCLOBAZAM CLOBAZAM FELBAMATE 2021-11-10 FELBAMATE 122.4 LAMOTRIGINE 2021-11-10 LAMOTRIGINE 9.8 RETICULOCYTE COUNT 2021-11-10 RETICULOCYTE COUNT, 1.18 RETICULOCYTE, ABSOLUTE 45.8 RUFINAMIDE 2021-11-10 RUFINAMIDE LEVEL 2.6 Rufinamide (Banzel) RUFINAMIDE LEVETIRACETAM 2021-11-10 LEVETIRACETAM 24.2 5 - 45 mcg/mL CBC (INCLUDES DIFF/PLT) 2021-11-10 ABSOLUTE BASOPHILS ABSOLUTE [...] UREA NITROGEN (BUN) CREATININE 0.45 eGFR NON-AFR. [place] eGFR BUN/CREATININE RATIO SODIUM 133 POTASSIUM CHLORIDE CARBON DIOXIDE CALCIUM PROTEIN, TOTAL ALBUMIN GLOBULIN ALBUMIN/GLOBULIN RATIO BILIRUBIN, TOTAL ALKALINE PHOSPHATASE 97 AST 23 ALT 19 EGFR LEVETIRACETAM 2019-11-20 LEVETIRACETAM 42.3 5 - 45 mcg/mL FELBAMATE 2019-11-20 FELBAMATE 116 RUFINAMIDE 2019-11-20 RUFINAMIDE LEVEL 3.7 Rufinamide (Banzel) RUFINAMIDE LAMOTRIGINE 2019-11-20 LAMOTRIGINE 12.7 CLOBAZAM 2019-11-20 CLOBAZAM 360 DESMETHYLCLOBAZAM CLOBAZAM COMPREHENSIVE METABOLIC PANEL 2019-11-20 GLUCOSE UREA NITROGEN (BUN) CREATININE 0.4 eGFR NON-AFR. [place] eGFR BUN/CREATININE RATIO SODIUM 138 POTASSIUM CHLORIDE CARBON DIOXIDE CALCIUM PROTEIN, TOTAL ALBUMIN GLOBULIN ALBUMIN/GLOBULIN RATIO BILIRUBIN, TOTAL ALKALINE PHOSPHATASE 113 AST 33 ALT 30 EGFR Liver Panel (LIVP) 2019-05-23 Bilirubin- Direct Albumin ALK Phosphatase 111 ALT 29 AST 35 Bilirubin- Total Protein- Total LAMOTRIGINE 2019-03-01 LAMOTRIGINE 11.6 Liver Panel (LIVP) 2019-02-28 Bilirubin- Direct Albumin ALK Phosphatase 113 ALT 45 AST 43 Bilirubin- Total Protein- Total COMPREHENSIVE METABOLIC PANEL 2019-02-28 GLUCOSE UREA NITROGEN (BUN) CREATININE 0.5 eGFR NON-AFR. [place] eGFR BUN/CREATININE RATIO SODIUM 140 POTASSIUM CHLORIDE CARBON DIOXIDE CALCIUM PROTEIN, TOTAL ALBUMIN GLOBULIN ALBUMIN/GLOBULIN RATIO BILIRUBIN, TOTAL ALKALINE PHOSPHATASE 113 AST 43 ALT 45 EGFR CLOBAZAM 2018-11-17 CLOBAZAM DESMETHYLCLOBAZAM CLOBAZAM 216 FELBAMATE 2018-11-17 FELBAMATE 193 CBC (INCLUDES DIFF/PLT) 2018-11-17 ABSOLUTE BASOPHILS ABSOLUTE [...] ABSOLUTE NUCLEATED RBC COMMENT(S) MPV RETICULOCYTE COUNT 2018-11-17 RETICULOCYTE COUNT, 1.4 RETICULOCYTE, ABSOLUTE 0.06 HEPATIC FUNCTION PANEL 2018-11-17 PROTEIN, TOTAL ALBUMIN GLOBULIN ALBUMIN/GLOBULIN RATIO BILIRUBIN, TOTAL BILIRUBIN, DIRECT BILIRUBIN, INDIRECT ALKALINE PHOSPHATASE 146 AST 22 ALT 44 LEVETIRACETAM 2018-11-17 LEVETIRACETAM 45.6 5 - 45 mcg/mL RUFINAMIDE 2018-11-17 RUFINAMIDE LEVEL Rufinamide (Banzel) RUFINAMIDE 4.9 LAMOTRIGINE 2018-11-17 LAMOTRIGINE 14.7 CBC (INCLUDES DIFF/PLT) 2018-08-17 ABSOLUTE BASOPHILS ABSOLUTE [...] NUCLEATED RBC ABSOLUTE NUCLEATED RBC COMMENT(S) MPV RUFINAMIDE 2018-08-17 RUFINAMIDE LEVEL Rufinamide (Banzel) RUFINAMIDE 5.6 LEVETIRACETAM 2018-08-17 LEVETIRACETAM 37.2 5 - 45 mcg/mL LAMOTRIGINE 2018-08-17 LAMOTRIGINE 15.0 FELBAMATE 2018-08-17 FELBAMATE 116 CLOBAZAM 2018-08-17 CLOBAZAM DESMETHYLCLOBAZAM CLOBAZAM 59 RETICULOCYTE COUNT 2018-08-17 RETICULOCYTE COUNT, 1.0 RETICULOCYTE, ABSOLUTE COMPREHENSIVE METABOLIC PANEL 2018-08-17 GLUCOSE UREA NITROGEN (BUN) CREATININE 0.5 eGFR NON-AFR. [place] eGFR BUN/CREATININE RATIO SODIUM 140 POTASSIUM CHLORIDE [...] Refill, banzel, BACLOFEN, Diastat refill, Sz Activity, [id number] refill, refill needed, Break through szs, DIASTAT [...] pending, req c/b, PA needed, Pt OUT----Geri PA--waiting, Geri PA--diff pharm, LTG PA, Banzel Refill PA, brand name meds , 07/15 Mom called in--Refills, Felbatol refill needed, escribe Meds, Follow up for intractable [place]-Gast[place] syndrome, Status post lateral medullary stroke, Static encephalopathy, Profound intellectual disabilities, Medication management, Discussion regarding current seizures, anticonvulsants and future plan of care, Jj received fax!, failed escribe fbm refill , epidiolex refill, Lamictal--clarification needed, Refill request Baclofen, lamictal refill, [place] refill request, LMTCB/epidiolex, epidiolex , SCANNED IN - lab results, visit summary, Follow up for intractable Aya[place]-Gastaut syndrome, Status post lateral medullary stroke, Static encephalopathy, Profound intellectual disabilities,Medication management, Discussion regarding current seizures, anticonvulsants and future plan of care, epidiolex refill, clobazam refill, Keppra PA (out of meds), Keppra / Levo Rx refills, update/questions about meds, epidiolex refill, Follow up for intractable Ayaan-Gastaut syndrome, Status [...] PA Questions , Follow up for intractable [place]-Gast[place] syndrome, Status post lateral medullary stroke, Static encephalopathy, Profound intellectual disabi lities, Medication management, Discussion regarding current seizures, anticonvulsants and future plan of care, Levocarnitine/diastat refill, refills, 3 mos, Req Labs , Epidiolex RX, LFT, Follow up for intractable [place]-Gast[place] syndrome, Status post lateral medullary stroke, Static [...] PA Update, Post-hospital follow up for intractable [place]-Gast[place] syndrome, Status post lateral medullary stroke, Static encephalopathy, Profound intellectual disabilities, Medication management, Discussion regarding current seizures, anticonvulsants and future plan of care, error, refill- DZP Gel, Epidiolex PA , Questions/ Req CB , refill- [place], Epidiolex , records from in [place] last week ,sz activity , MD to MD?, Seizures, Frequent seizures/status epilepticus, sz activity , Regarding lab results from 08/17/19, lab/update , Please contact LTG PA status , refills, ltg refill fermin [...] packet, lmtcb re appt, Record request-pending AUSTYN andguardianikki papers, 12-month follow up visit for care [...] Subscriber Name Subscriber Date of Group No MEDICAID [place] [address] [id number] [facility] [id number] MEDICAID [place] self Say Hilario [id number] [place] [address] [place] [id number] [place] self Say Hilario [id number]
== END 2023-03-11 11:06 | disposition home or self-care (01) ==
LOC: AMB 03-16 11:33
PROVIDERS: Visit Provider Family Medicine
DX: R41.82 Altered mental status, unspecified (principal); R53.1 Weakness
CPT/HCPCS: A0425; A0429

== ENCOUNTER 2023-03-18 12:26 | Outpatient (CLI) | payer MEDICARE, MEDICAID, SELFPAY | END 2023-03-18 12:27 | disposition home or self-care (01) | LOC: AMB 03-19 09:36 | PROVIDERS: Visit Provider Emergency Medicine | DX: R53.83 Other fatigue (principal) | CPT/HCPCS: A0425; A0429 ==

== ENCOUNTER 2023-08-30 11:13 | Outpatient (CLI) | payer MEDICARE, MEDICAID, SELFPAY ==
--- NOTE | 2023-08-30 11:30 | CRLHL7_ITS ---
For Patients: As a result of the Cures Act, medical imaging exams and procedure reports are released immediately into your electronic medical record. You may view this report before your referring provider. If you have questions, please contact your health care provider. INDICATION: Bilateral hip pain. TECHNIQUE: Single view of the left hip. FINDINGS : Suboptimal positioning. Skeletal demineralization. This could be due to disuse or under use. There is no acute fracture or dislocation. IMPRESSION: Negative single view left hip. Presumed skeletal demineralization. Dictated by Robin Holland MD @ 08/30/2023 6:07:24 PM (Electronically Signed)
--- NOTE | 2023-08-30 11:30 | CRLHL7_ITS ---
For Patients: As a result of the Century Cures Act, medical imaging exams and procedure reports are released immediately into your electronic medical record. You may view this report before your referring provider. If you have questions, please contact your health care provider. INDICATION: Bilateral hip pain. TECHNIQUE: AP pelvis and single view of the right hip. FINDINGS: There appears to be skeletal demineralization. This could be due to disuse or under use. Please correlate clinically. No acute pelvic or hip fracture or dislocation identified. The sacroiliac joints, symphysis pubis, and hip joints are intact. IMPRESSION: Negative pelvis and visualized hips. Dictated by Robin Holland MD @ 08/30/2023 6:08:19 PM (Electronically Signed)
== END 2023-08-30 11:14 | disposition home or self-care (01) ==
PROVIDERS: PCP Family Medicine; Visit Provider Family Medicine
DX: M25.551 Pain in right hip (principal); M25.552 Pain in left hip
CPT/HCPCS: 73501

== ENCOUNTER 2023-09-28 20:14 | Emergency (ER) | payer MEDICARE, MEDICAID, SELFPAY ==
[2023-09-28 20:27] VITALS: BP 91/64; PULSE 102; RESP 20; TEMP 36.6; O2SAT 93
--- NOTE | 2023-09-28 21:28 | CRLHL7_ITS ---
For Patients: As a result of the Century Cures Act, medical imaging exams and procedure reports are released immediately into your electronic medical record. You may view this report before your referring provider. If you have questions, please contact your health care provider. INDICATION: Hypotension, tachycardia. TECHNIQUE: CT chest, abdomen, and pelvis acquired with 72 cc Isovue 370 IV contrast. COMPARISON: None. FINDINGS: CHEST: Lungs and pleura: Mosaic attenuation, reflecting air trapping. No acute infiltrates. No pleural effusions or pneumothorax. Cardiovascular structures: Heart size is normal. Thoracic aorta and main pulmonary artery are normal in caliber. Mediastinum and francisco: No mass or adenopathy. Chest wall and axilla: No mass or adenopathy. Bones: Decreased bone mineralization. Evaluation otherwise limited by significant motion artifact. ABDOMEN AND PELVIS: Liver: Unremarkable. Gallbladder and bile ducts: Distended gallbladder. No radiopaque stones or inflammation. No biliary ductal dilatation. Spleen: Unremarkable. Adrenal glands: Unremarkable. Pancreas: Unremarkable. Kidneys: Right renal cyst. Subcentimeter hypodense foci are too small to accurately characterize. No stones or hydronephrosis. GI tract: Gastrojejunostomy tube. GI tract is normal in caliber. Scattered colonic diverticula without evidence of diverticulitis. No evidence of obstruction. Lymph nodes: Unremarkable. Vascular structures: Unremarkable. Miscellaneous: Unremarkable. No free air or significant free fluid. Pelvic organs: Unremarkable. Bones: Decreased bone mineralization. Evaluation otherwise limited by significant motion artifact. IMPRESSION: 1. Air trapping, likely secondary to small airways disease. 2. Otherwise no acute pulmonary process. 3. Distended gallbladder without evidence of radiopaque gallstone or inflammation. 4. Otherwise no acute abdominal or pelvic abnormality. 5. Incidental findings as above. Please note that all CT scans at this facility use dose modulation, iterative reconstruction, and/or weight-based dosing when appropriate to reduce radiation dose to as low as reasonably achievable. Dictated by Matheus Bain MD @ 09/28/2023 11:10:39 PM (Electronically Signed)
--- NOTE | 2023-09-28 21:37 | ED.GENADULT ---
HPI - General Adult General Time Seen by Provider: 21:37 <Ugo Dewey MD - Last Filed: 09/30/23 21:06> Date Seen: 09/28/23 <Ugo Dewey MD - Last Filed: 09/30/23 21:06> Chief complaint: Unspecified Complaint, Adult <Ugo Dewey MD - Last Filed: 09/30/23 21:06> Stated complaint: Pain, pt nonverbal, history of kidney stones <Ugo Dewey MD - Last Filed: 09/30/23 21:06> Time Seen by Provider: 09/28/23 20:40 <Ugo Dewey MD - Last Filed: 09/30/23 21:06> Source: family, RN notes reviewed and old records reviewed <Ugo Dewey MD - Last Filed: 09/30/23 21:06> Mode of arrival: wheelchair <Ugo Dewey MD - Last Filed: 09/30/23 21:06> Limitations: other (Developmental delay, nonverbal) <Ugo Dewey MD - Last Filed: 09/30/23 21:06> History of Present Illness HPI narrative: 43-year-old male who comes in today with parents for evaluation for pain. Per parents, since yesterday patient has appeared being pain. Patient is nonverbal at baseline. No constipation, no vomiting, feeding tube dependent, no blood in the urine on catheterization, no fevers. They report is blood pressure is little bit low but usually is heart rate is in the 90s. <Ugo Dewey MD - Last Filed: 09/30/23 21:06> Related Data Allergies/adverse reactions: Allergies Allergy/AdvReac Type Severity Reaction Status Date / Time Penicillins Allergy Intermediate Verified 09/28/23 20:36 <Ugo Dewey MD - Last Filed: 09/30/23 21:06> PFSH PFSH Social History: Social History Smoking Status: Never smoker Do you use any of these nicotine containing products: None Second hand tobacco smoke exposure: No How often do you have a drink containing alcohol: never How often do you have six or more drinks on one occasion: Never AUDIT-C Alcohol total score: 0 Non-prescribed substance use: denies use service: No <Ugo Dewey MD - Last Filed: 09/30/23 21:06> Exam Narrative: Exam Narrative: General: Well-developed and well-nourished, appears uncomfortable, respirations nonlabored Head: Atraumatic and normocephalic Eyes: Pupils are equal reactive, extraocular motions intact, conjunctiva clear ENT: External nose and ears are normal, posterior pharynx without erythema or exudate Neck: No midline cervical tenderness, full spontaneous range of motion the neck, trachea midline, no adenopathy Heart: Tachycardic but regular Lungs: Clear to auscultation bilaterally without wheezes or crackles Abdomen: Soft, nontender, nondistended with active bowel sounds Musculoskeletal: No tenderness, deformity, or edema. Bilateral upper extremity contractures, no bony tenderness or deformity, no bruises Neurologic: Awake, nonverbal, appears to be baseline Skin: No rashes <Ugo Dewey MD - Last Filed: 09/30/23 21:06> Const: Vital Signs, click to edit/add: Vital Signs - 24 hr 09/28/23 20:27 09/29/23 00:16 09/29/23 01:22 Temperature 97.8 F Pulse Rate [Right Pulse Oximeter] 102 H 63 67 Respiratory Rate 20 18 Blood Pressure [Le ft Forearm] 91/64 Pulse Oximetry 93 100 100 Oxygen Delivery Me thod Room Air Room Air Room Air <Ugo Dewey MD - Last Filed: 09/30/23 21:06> Vital Signs, click to edit/add: Vital Signs - 24 hr 09/28/23 20:27 09/29/23 00:16 09/29/23 01:22 Temperature 97.8 F Pulse Rate [Right Pulse Oximeter] 102 H 63 67 Respiratory Rate 20 18 Blood Pressure [Le ft Forearm] 91/64 Pulse Oximetry 93 100 100 Oxygen Delivery Me thod Room Air Room Air Room Air <Jacki Weiss MD - Last Filed: 09/29/23 01:51> Course Course ED Course: Patient seen and examined, prior records reviewed. Patient with history of acute CVA, seizures presents evaluation of appearing to be in pain. On exam here, mild tachycardia as well as mild hypotension, blood pressure is about usual but heart rate is higher than usual per mom's report. No focal findings on exam, no abdominal rigidity, G-tube in place. Labs and CT scan ordered. Broad workup due to patient being nonverbal not able to express pain or localize. <Ugo Dewey MD - Last Filed: 09/30/23 21:06> Reevaluation(s) Time of Reevaluation #1: 22:18 <Ugo Dewey MD - Last Filed: 09/30/23 21:06> Reevaluation #1: Labs ordered and independently interpreted by me with normal CBC. CT of the chest independently interpreted by me without acute infiltrate although limited by movement artifact, CT scan of the abdomen pelvis demonstrates distended gallbladder but no other acute findings. <Ugo Dewey MD - Last Filed: 09/30/23 21:06> Time of Reevaluation #2: 22:56 <Ugo Dewey MD - Last Filed: 09/30/23 21:06> Reevaluation #2: Labs ordered and independently interpreted by me with normal basic metabolic panel, hepatic panel normal, lipase is normal. Urinalysis with trace blood but no other acute findings. <Ugo Dewey MD - Last Filed: 09/30/23 21:06> Time of Reevaluation #3: 23:30 <Ugo Dewey MD - Last Filed: 09/30/23 21:06> Reevaluation #3: Patient rechecked and reexamined, sleeping comfortably in heart rate is improved. Examined and palpated all 4 extremities, removed socks and no hair tourniquets or deformities although the right 4th toe nail seems to be clipped a little bit short and should be watched. The oropharynx is dry but no posterior or pharyngeal erythema or swelling. No definite cause for patient's discomfort pretty sick appears clinically much better after Dilaudid. Gallbladder is distended, right upper quadrant ultrasound ordered to better evaluate but labs did not demonstrate any evidence for biliary obstruction or acute cholecystitis <Ugo Dewey MD - Last Filed: 09/30/23 21:06> Additional Reevaluation(s): Update: Dr. Weiss- [id number]- I assumed care from Dr. Dewey, he informs me that CT scan was essentially reassuring, recommended ultrasound, has asked me to follow-up on these findings. I have reviewed ultrasound findings. I reviewed the labs and see no leukocytosis or electrolyte abnormalities. Thankfully, he is resting comfortably. Discussed the findings with parents. They asked me if this could be ??. I let them know that this is certainly a consideration but with only a 2 night streak of symptoms and improvement during the day, it is a little early to tell. Typically behavioral patterns can only be assessed if going on for a couple of weeks or more. I do wonder if their recent trip and therefore the disruption of his routine could be contributing. I have recommended continued home observation and have discussed alarm symptoms that would warrant repeat ER visit. They are comfortable with this plan for now. Re-evaluate with primary care provider if not improving in 48 hours. <Jacik Weiss MD - Last Filed: 09/29/23 01:51> Vital Signs Vital signs: Initial Vital Signs Temperature 97.8 F 09/28/23 20:27 Temperature Source Temporal Artery Scan 09/28/23 20:27 Pulse Rate 102 H 09/28/23 20:27 Pulse Rhythm Regular 09/28/23 20:27 Respiratory Rate 20 09/28/23 20:27 Blood Pressure 91/64 09/28/23 20:27 Blood Pressure Mean 73 09/28/23 20:27 Blood Pressure Position Semi-Fowlers 09/28/23 20:27 Pulse Oximetry 93 09/28/23 20:27 Oxygen Delivery Method Room Air 09/28/23 20:27 Vital Signs Temperature 97.8 F 09/28/23 20:27 Pulse Rate 102 H 09/28/23 20:27 Respiratory Rate 20 09/28/23 20:27 Blood Pressure 91/64 09/28/23 20:27 Pulse Oximetry 93 09/28/23 20:27 Oxygen Delivery Method Room Air 09/28/23 20:27 Temperature 97.8 F 09/28/23 20:27 Pulse Rate 67 09/29/23 01:22 Respiratory Rate 18 09/29/23 01:22 Blood Pressure 91/64 09/28/23 20:27 Pulse Oximetry 100 09/29/23 01:22 Oxygen Delivery Method Room Air 09/29/23 01:22 <Ugo Dewey MD - Last Filed: 09/30/23 21:06> Initial Vital Signs Temperature 97.8 F 09/28/23 20:27 Temperature Source Temporal Artery Scan 09/28/23 20:27 Pulse Rate 102 H 09/28/23 20:27 Pulse Rhythm Regular 09/28/23 20:27 Respiratory Rate 20 09/28/23 20:27 Blood Pressure 91/64 09/28/23 20:27 Blood Pressure Mean 73 09/28/23 20:27 Blood Pressure Position Semi-Fowlers 09/28/23 20:27 Pulse Oximetry 93 09/28/23 20:27 Oxygen Delivery Method Room Air 09/28/23 20:27 Vital Signs Temperature 97.8 F 09/28/23 20:27 Pulse Rate 102 H 09/28/23 20:27 Respiratory Rate 20 09/28/23 20:27 Blood Pressure 91/64 09/28/23 20:27 Pulse Oximetry 93 09/28/23 20:27 Oxygen Delivery Method Room Air 09/28/23 20:27 Temperature 97.8 F 09/28/23 20:27 Pulse Rate 67 09/29/23 01:22 Respiratory Rate 18 09/29/23 01:22 Blood Pressure 91/64 09/28/23 20:27 Pulse Oximetry 100 09/29/23 01:22 Oxygen Delivery Method Room Air 09/29/23 01:22 <Jacki Weiss MD - Last Filed: 09/29/23 01:51> Medications Administered Medications: Discontinued Medications Generic Name Dose Route Start Last Admin Trade Name Freq PRN Reason Stop Dose Admin Hydromorphone HCl 0.3 mg 09/28/23 22:15 09/28/23 22:23 Hydromorphone 0.5 Mg/0.5 Ml Inj IVP 0.3 mg Q2H PRN Administration Sodium Chloride 1,000 mls @ 1,000 mls/hr 09/28/23 21:30 09/28/23 23:21 0.9 % Sodium Chloride 1000 Ml IV 09/28/23 22:29 Infused .Q1H JUILO Infusion Ketorolac Tromethamine 15 mg 09/28/23 21:27 09/28/23 22:23 Ketorolac 15 Mg/Ml Inj IVP 09/28/23 21:28 15 mg ONCE ONE Administration Ondansetron HCl 4 mg 09/28/23 21:27 09/28/23 22:23 Ondansetron 2 Mg/Ml Inj IVP 09/28/23 21:28 4 mg ONCE ONE Administration <Ugo Dewey MD - Last Filed: 09/30/23 21:06> Discontinued Medications Generic Name Dose Route Start Last Admin Trade Name Florinda PRN Reason Stop Dose Admin Hydromorphone HCl 0.3 mg 09/28/23 22:15 09/28/23 22:23 Hydromorphone 0.5 Mg/0.5 Ml Inj IVP 0.3 mg Q2H PRN Administration Sodium Chloride 1,000 mls @ 1,000 mls/hr 09/28/23 21:30 09/28/23 23:21 0.9 % Sodium Chloride 1000 Ml IV 09/28/23 22:29 Infused .Q1H JULIO Infusion Ketorolac Tromethamine 15 mg 09/28/23 21:27 09/28/23 22:23 Ketorolac 15 Mg/Ml Inj IVP 09/28/23 21:28 15 mg ONCE ONE Administration Ondansetron HCl 4 mg 09/28/23 21:27 09/28/23 22:23 Ondansetron 2 Mg/Ml Inj IVP 09/28/23 21:28 4 mg ONCE ONE Administration <Jacki Weiss MD - Last Filed: 09/29/23 01:51> Medical Decision Making Lab Data Lab results reviewed: Yes I reviewed the patient's lab results <Jacki Weiss MD - Last Filed: 09/29/23 01:51> Lab results narrative: No significant leukocytosis, COVID, severe anemia, bladder infection, electrolyte abnormalities, pancreatitis or elevated inflammatory markers. <Jacki Weiss MD - Last Filed: 09/29/23 01:51> Labs: Lab Results 09/28/23 09/28/23 09/29/23 Range/Units 21:44 22:40 00:05 WBC 4.77 (4.50-11.00) K/uL RBC 3.68 L (4.30-5.90) m/uL Hgb 12.8 L (13.5-17.5) gm/dL Hct 37.3 (37.0-53.0) % MCV 101 H (80-100) fL MCH 35 H (26-34) pg MCHC 34 (32-36) gm/dL RDW Coeff of An 12.3 (11.5-15.5) % Plt Count 218 (140-440) K/uL Neut % (Auto) 45.5 (42.0-72.0) % Lymph % (Auto) 37.3 (20-44) % [place] % (Auto) 10.5 (0.0-11.0) % Eos % (Auto) 5.9 (0.0-7.0) % Baso % (Auto) 0.8 (0.0-3.0) % Neut # (Auto) 2.17 (1.7-7.0) K/uL Lymph # (Auto) 1.78 (0.90-2.90) K/uL [place] # (Auto) 0.50 (0.00-0.90) K/UL Eos # (Auto) 0.28 (0.00-0.50) K/uL Baso # (Auto) 0.04 (0.00-0.30) K/uL Abs Immat Gran (auto) 0.00 (0.00-0.30) K/uL Imm/Tot Granulo (auto) 0.0 % Sodium 134 L (135-149) mmol/L Potassium 4.2 (3.6-5.1) mmol/L Chloride 95 L (96-114) mmol/L Carbon Dioxide 29 (20-32) mmol/L Anion Gap 10 (7-15) mEq/L BUN 10 (5-24) mg/dL Creatinine 0.3 L (0.5-1.5) mg/dL Estimated GFR 151 ml/min Glucose 90 (60-115) mg/dL Calcium 9.4 (8.4-10.6) mg/dL Magnesium 1.7 (1.5-2.6) mg/dL Total Bilirubin 0.4 (0.1-1.5) mg/dL Direct Bilirubin 0.1 (0.0-0.5) mg/dL AST 36 H (12-35) U/L ALT 24 (4-50) U/L Alkaline Phosphatase 117 (40-150) U/L Total Protein 8.6 H (6.0-8.3) g/dL Albumin 4.8 (3.3-5.0) g/dL Lipase 16 L (23-300) U/L Urine Color Yellow (Yellow) Urine Appearance Clear (Clear) Urine pH 6.5 (5.0-8.5) Ur Specific [place] 1.010 (1.000-1.030) Urine Protein Negative (Negative) Urine Glucose (UA) Negative (Negative) Urine Ketones Negative (Negative) Urine Blood Trace-intact A (Negative) Urine Nitrite Negative (Negative) Urine Bilirubin Negative (Negative) Urine Urobilinogen 0.2 (0.2-1.0) Ur Leukocyte Esterase Negative (Negative) Urine RBC 0-2 (0-2) Urine WBC 0-2 (0-5) Ur Squamous Epith Cells Few (None-Few) Amorphous Sediment Few A (None) Urine Bacteria Few A (None) Urine Mucus Few A (None) SARS-CoV-2 (PCR) Negative SARS-CoV-2 (Negative) Influenza Type A (PCR) Negative PCR FLU A (Negative) Influenza Type B (PCR) Negative PCR FLU B (Negative) RSV (PCR) Negative PCR RSV (Negative) <Ugo Dewey MD - Last Filed: 09/30/23 21:06> Lab Results 09/28/23 09/28/23 09/29/23 Range/Units 21:44 22:40 00:05 WBC 4.77 (4.50-11.00) K/uL RBC 3.68 L (4.30-5.90) m/uL Hgb 12.8 L (13.5-17.5) gm/dL Hct 37.3 (37.0-53.0) % MCV 101 H (80-100) fL MCH 35 H (26-34) pg MCHC 34 (32-36) gm/dL RDW Coeff of An 12.3 (11.5-15.5) % Plt Count 218 (140-440) K/uL Neut % (Auto) 45.5 (42.0-72.0) % Lymph % (Auto) 37.3 (20-44) % [place] % (Auto) 10.5 (0.0-11.0) % Eos % (Auto) 5.9 (0.0-7.0) % Baso % (Auto) 0.8 (0.0-3.0) % Neut # (Auto) 2.17 (1.7-7.0) K/uL Lymph # (Auto) 1.78 (0.90-2.90) K/uL [place] # (Auto) 0.50 (0.00-0.90) K/UL Eos # (Auto) 0.28 (0.00-0.50) K/uL Baso # (Auto) 0.04 (0.00-0.30) K/uL Abs Immat Gran (auto) 0.00 (0.00-0.30) K/uL Imm/Tot Granulo (auto) 0.0 % Sodium 134 L (135-149) mmol/L Potassium 4.2 (3.6-5.1) mmol/L Chloride 95 L (96-114) mmol/L Carbon Dioxide 29 (20-32) mmol/L Anion Gap 10 (7-15) mEq/L BUN 10 (5-24) mg/dL Creatinine 0.3 L (0.5-1.5) mg/dL Estimated GFR 151 ml/min Glucose 90 (60-115) mg/dL Calcium 9.4 (8.4-10.6) mg/dL Magnesium 1.7 (1.5-2.6) mg/dL Total Bilirubin 0.4 (0.1-1.5) mg/dL Direct Bilirubin 0.1 (0.0-0.5) mg/dL AST 36 H (12-35) U/L ALT 24 (4-50) U/L Alkaline Phosphatase 117 (40-150) U/L Total Protein 8.6 H (6.0-8.3) g/dL Albumin 4.8 (3.3-5.0) g/dL Lipase 16 L (23-300) U/L Urine Color Yellow (Yellow) Urine Appearance Clear (Clear) Urine pH 6.5 (5.0-8.5) Ur Specific [place] 1.010 (1.000-1.030) Urine Protein Negative (Negative) Urine Glucose (UA) Negative (Negative) Urine Ketones Negative (Negative) Urine Blood Trace-intact A (Negative) Urine Nitrite Negative (Negative) Urine Bilirubin Negative (Negative) Urine Urobilinogen 0.2 (0.2-1.0) Ur Leukocyte Esterase Negative (Negative) Urine RBC 0-2 (0-2) Urine WBC 0-2 (0-5) Ur Squamous Epith Cells Few (None-Few) Amorphous Sediment Few A (None) Urine Bacteria Few A (None) Urine Mucus Few A (None) SARS-CoV-2 (PCR) Negative SARS-CoV-2 (Negative) Influenza Type A (PCR) Negative PCR FLU A (Negative) Influenza Type B (PCR) Negative PCR FLU B (Negative) RSV (PCR) Negative PCR RSV (Negative) <Jacki Weiss MD - Last Filed: 09/29/23 01:51> Discharge Plan Discharge Clinical Impression: Pain, Feeding by G-tube <Ugo Dewey MD - Last Filed: 09/30/23 21:06> Patient Disposition: Home w/ Parent or Adult <Ugo Dewey MD - Last Filed: 09/30/23 21:06> Condition: Stable <Ugo Dewey MD - Last Filed: 09/30/23 21:06> Instructions: Pain Management (ED) <Ugo Dewey MD - Last Filed: 09/30/23 21:06> Additional Instructions: As we discussed, the scans and ultrasound are reassuring. The lab work does not point to any major infection or inflammation. This is reassuring also. Unfortunately, I do not know the cause of his restlessness. You could be correct that this is a new Behavioral progressive change for him in the evenings. It is certainly too soon to tell with only a 2 day pattern. He could be reacting to a change in his routine. Continue current schedule with feeding. Follow-up with your primary care doctor in 48 hours if symptoms do not start to improve. Come back to the emergency room if there fevers, vomiting, worsening of symptoms or additional concerns. <Ugo Dewey MD - Last Filed: 09/30/23 21:06> Activity Level: No Restrictions <Ugo Dewey MD - Last Filed: 09/30/23 21:06> No Restrictions <Jacki Weiss MD - Last Filed: 09/29/23 01:51> Discharge Diet: Regular <Ugo Dewey MD - Last Filed: 09/30/23 21:06> Regular <Jacki Weiss MD - Last Filed: 09/29/23 01:51> Follow Up/Referrals: Luis Angel Flores MD [Primary Care Provider] - <Ugo Dewey MD - Last Filed: 09/30/23 21:06> Stand Alone Forms: MyHealth Info Instructions <Ugo Dewey MD - Last Filed: 09/30/23 21:06>
[2023-09-28 21:55] LABS: Basophils Absolute Auto 0.04 K/uL (0.00-0.30); Basophils Percent Auto 0.8 % (0.0-3.0); Eosinophils Absolute Auto 0.28 K/uL (0.00-0.50); Eosinophils Percent Auto 5.9 % (0.0-7.0); Hematocrit 37.3 % (37.0-53.0); Hemoglobin* 12.8 gm/dL (13.5-17.5); Lymphocytes Absolute Auto 1.78 K/uL (0.90-2.90); Lymphocytes Percent Auto 37.3 % (20-44); Mean Corpuscular HGB Conc 34 gm/dL (32-36); Mean Corpuscular Hemoglobin 35 pg (26-34); Mean Corpuscular Volume 101 fL (80-100); Monocytes Percent Auto 10.5 % (0.0-11.0); Neutrophils Absolute Auto 2.17 K/uL (1.7-7.0); Neutrophils Percent Auto 45.5 % (42.0-72.0); Platelet Count* 218 K/uL (140-440); RDW Coefficient of Variation % 12.3 % (11.5-15.5); Red Blood Count 3.68 m/uL (4.30-5.90); White Blood Count* 4.77 K/uL (4.50-11.00)
[2023-09-28 21:59] LABS: Slide Review Reflex No
[2023-09-28 22:06] LABS: Albumin* 4.8 g/dL (3.3-5.0); Chloride* 95 mmol/L (96-114); Potassium* 4.2 mmol/L (3.6-5.1); Sodium* 134 mmol/L (135-149)
[2023-09-28 22:08] LABS: Anion Gap 10 mEq/L (7-15); Carbon Dioxide* 29 mmol/L (20-32); Creatinine* 0.3 mg/dL (0.5-1.5); Estimated Glomerular Filt Rate 151 ml/min
[2023-09-28 22:09] LABS: Alanine Aminotransferase* 24 U/L (4-50); Alkaline Phosphatase* 117 U/L (40-150); Aspartate Amino Transferase* 36 U/L (12-35); Bilirubin Direct* 0.1 mg/dL (0.0-0.5); Bilirubin Total* 0.4 mg/dL (0.1-1.5); Blood Urea Nitrogen* 10 mg/dL (5-24); Calcium* 9.4 mg/dL (8.4-10.6); Glucose* 90 mg/dL (60-115); Lipase* 16 U/L (23-300); Total Protein* 8.6 g/dL (6.0-8.3)
[2023-09-28] MEDS: 0.9 % SODIUM CHLORIDE 1000 ml 1,000 ML IV (22:23)
[2023-09-28] MEDS: HYDROmorphone 0.5 mg/0.5 ml inj 0.3 MG IVP (22:23)
[2023-09-28] MEDS: KETOROLAC 15 MG/ML inj IVP (22:23)
[2023-09-28] MEDS: ONDANSETRON 2 MG/ML inj 4 MG IVP (22:23)
[2023-09-28 22:49] LABS: Appearance Urine Clear (Clear); Bilirubin Urine Negative (Negative); Blood Urine Trace-intact (Negative); Color Urine Yellow (Yellow); Glucose Urine Negative (Negative); Ketones Urine Negative (Negative); Leukocyte Esterase Urine Negative (Negative); Nitrite Urine Negative (Negative); Protein Urine Negative (Negative); Urobilinogen Urine 0.2 (0.2-1.0); pH Urine 6.5 (5.0-8.5)
[2023-09-28 22:55] LABS: Amorphous Sediment Urine Few; Bacteria Urine Few; Mucus Urine Few; RBC Urine 0-2 (0-2); Squamous Epithelial Cell Urine Few (None-Few); WBC Urine 0-2 (0-5)
[2023-09-28 23:00] LABS: Magnesium* 1.7 mg/dL (1.5-2.6)
[2023-09-29 00:16] VITALS: PULSE 63; O2SAT 100
[2023-09-29 00:46] LABS: PCR FLU A Negative PCR FLU A (Negative); PCR FLU B Negative PCR FLU B (Negative); PCR RSV Negative PCR RSV (Negative); SARS PCR* Negative SARS-CoV-2 (Negative)
[2023-09-29 01:22] VITALS: PULSE 67; RESP 18; O2SAT 100
--- NOTE | 2023-09-29 23:33 | CRLHL7_ITS ---
For Patients: As a result of the Century Cures Act, medical imaging exams and procedure reports are released immediately into your electronic medical record. You may view this report before your referring provider. If you have questions, please contact your health care provider. INDICATION: Distended gallbladder on CT. Abdominal pain. TECHNIQUE: Ultrasound abdomen limited. Sonographic images of the gallbladder were obtained using early-scale images. COMPARISON: CT chest/abdomen/pelvis dated 09/28/2023. FINDINGS: Gallbladder: Mildly hydropic gallbladder. No cholelithiasis, significant gallbladder wall thickening, or pericholecystic fluid identified. Negative sonographic Tucker`s sign. IMPRESSION: Mildly hydropic gallbladder. No cholelithiasis, or sonographic evidence of acute cholecystitis. Dictated by Edward Fernando MD @ 09/29/2023 1:14:46 AM (Electronically Signed)
== END 2023-09-29 01:50 | disposition home or self-care (01) ==
PROVIDERS: Family Medicine; Emergency Provider Family Medicine; PCP Family Medicine
DX: G89.29 Other chronic pain (principal); Z43.1 Encounter for attention to gastrostomy
CPT/HCPCS: 36415; 71260; 74177; 76705; 80048; 80076; 81001; 83690; 83735; 85025; 87086; 87631; 96374; 96375; 99284; J1170; J1885; J2405; J7030; Q9967

== ENCOUNTER 2024-02-28 10:29 | Outpatient (CLI) | payer MEDICARE, MEDICAID, SELFPAY ==
--- OUTSIDE RECORDS SUMMARY | 2024-03-14 04:06 | XMS_ITS | Patient Health Record ---
Author Organization [facility] Address [address] [place] [address] Care Team Providers Care Director Of Quality Control Name Role Phone Rogelio Flores Primary Care Provider Jose Martin Maria Unavailable [phone] ALLERGIES Allergen (clinical drug ingredient) Drug/Non Drug [...] UREA NITROGEN (BUN) CREATININE 0.36 eGFR NON-AFR. 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) Active confirmed Problem Ayaan-Gastaut syndrome, intractable, without status epilepticus (G40.814) Active confirmed Ayaan-Gastaut syndrome, refractory (882526225574434) Problem Other cerebrovascular disease (I67.89) Active confirmed Cerebrovasc ular disease (49270564) Problem Encounter for attention to gastrostomy (Z43.1) Active confirmed Attention to gastrostomy (615986850) Problem Other detention (current) drug therapy (Z79.899) Active confirmed Long-term current use of drug therapy (718799257) VITAL SIGNS Height-cm 151 cm 08/11/2023 Weight 60 kg 08/11/2023 BMI 26.31 kg/m2 08/11/2023 Encounters Encounter Location Date Provider Diagnosis [facility] [address] [place] [address] 03/08/2024 [facility] [address] [place] [address] 08/11/2023 Jose Martin White Ayaan-Gastaut syndrome, intractable, 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 and Other medical terminologist (current) drug therapy Z79.899 [facility] [address] [place] [address] 04/29/2023 [facility] [address] [place] [address] 06/03/2023 [facility] [address] [place] [address] 06/24/2023 Jose Martin White [facility] [address] [place] [address] 06/24/2023 [facility] [address] [place] [address] 07/21/2023 Jose Martin [facility] [address] [place] [address] 07/22/2023 Jose Martin White [place]-Gastaut syndrome, intractable, 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 [facility] [address] [place] [address] 08/11/2023 Jose Martin White [facility] [address] [place] [address] 08/20/2023 Jose Martin White [place]-Gastaut syndrome, intractable, 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 [facility] [address] [place] [address] 08/24/2023 Jose Martin White [place]-Gastaut syndrome, intractable, 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 [facility] [address] [place] [address] 10/18/2023 Jose Martin White [place]-Gastaut syndrome, intractable, 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 [facility] [address] [place] [address] 10/18/2023 Jose Martin White Ayaan-Gastaut syndrome, intractable, 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 [facility] [address] [place] [address] 10/18/2023 Jose Martin White Ayaan-Gastaut syndrome, intractable, 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 [facility] [address] [place] [address] 01/18/2024 Jose Martin Eaton [facility] [address] [place] [address] 01/25/2024 Jose Martin Eaton Ayaan-Gastaut syndrome, intractable, 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 [facility] [address] [place] [address] 01/31/2024 Jose Martin White [place]-Gastaut syndrome, intractable, 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 and Other detention (current) drug therapy Z79.899 [facility] [address] [place] [address] 02/03/2024 Jose Martin White [facility] [address] [place] [address] 02/14/2024 Jose Martin Eaton [place]-Gastaut syndrome, intractable, 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 [facility] [address] [place] [address] 03/03/2024 Jose Martin Eaton ASSESSMENTS Encounter Date Diagnosis Assessment Notes Treatment Notes Treatment Clinical Notes 07/22/2023 [place]-Gastaut syndrome, intractable, without status epilepticus (ICD-10 - G40.814) 08/11/2023 Ayaan-Gastaut syndrome, intractable, without status epilepticus (ICD-10 - G40.814) 08/20/2023 Ayaan-Gastaut syndrome, intractable, without status epilepticus (ICD-10 - G40.814) 08/24/2023 Ayaan-Gastaut syndrome, intractable, without status epilepticus (ICD-10 - G40.814) 10/18/2023 [place]-Gastaut syndrome, intractable, without status epilepticus (ICD-10 - G40.814) 10/18/2023 [place]-Gastaut syndrome, intractable, without status epilepticus (ICD-10 - G40.814) 10/18/2023 [place]-Gastaut syndrome, intractable, without status epilepticus (ICD-10 - G40.814) 01/25/2024 [place]-Gastaut syndrome, intractable, without status epilepticus (ICD-10 - G40.814) 01/31/2024 Ayaan-Gastaut syndrome, intractable, without status epilepticus (ICD-10 - G40.814) 01/31/2024 Other medical terminologist (current) drug therapy (ICD-10 - Z79.899) 02/14/2024 Ayaan-Gastaut syndrome, intractable, without status epilepticus (ICD-10 - G40.814) 08/11/2023 Other detention (current) drug therapy (ICD-10 - Z79.899) PLAN OF TREATMENT Pending Test Test Name Order Date COMPREHENSIVE METABOLIC PANEL 05/14/2022 CBC (INCLUDES DIFF/PLT) 05/14/2022 CLOBAZAM 05/14/2022 FELBAMATE 05/14/2022 LAMOTRIGINE 05/14/2022 LEVETIRACETAM 05/14/2022 RUFINAMIDE 05/14/2022 Insurance Providers Payer Name Payer Address Payer Phone Subscriber Number Group Number Insured Name Patient Relationship to Insured Coverage Start Date Coverage End Date [place]IC[place] [address] ROCHELLE Thornton [id number] Hilario, Say Self - patient is the insured 2 [place] [facility] [address] [place] [address] [id number] Say Hilario Self - patient is the insured MEDICAL (GENERAL) HISTORY Medical History History ICD Code Static encephalopathy Lymphoblastic leukemia, now in remission . History of chronic hiccups. Gastrointestinal reflux/gastrointestinal ulcers. Status post lateral medullary stroke. Surgical History Surgery Date(Month/Year) Status post gastrostomy tube placement. Hospitalization History Reason Date(Month/Year) pneumonia 07/2020 At [facility] for seizures 09/27/18 None in the past six months
--- OUTSIDE RECORDS SUMMARY | 2024-03-14 04:06 | XMS_ITS | Clinical Summary ---
Author Organization [facility] Address [place], [place] [address] Care Team Providers Care Wet Process Technician Name Role Phone Luis Angel Flores Unavailable [phone] MarkLuis Angel Primary Care Provider [phone] Allergies Active Allergy Reactions Criticality Noted Date Comments Aspirin 07/10/2010 Cefaclor 07/10/2010 Codeine GI Upset 12/20/2010 Converted from Generic Allergy: Codeinenausea/dyspepsia nausea/dyspepsia Penicillins 07/10/2010 Expfwdr-Eqfcieawfm-Frilrja *Unknown 1 Medications Medication Sig Dispensed Refills [...] screening for COVID-19 12/01/2020 Dysphagia 06/26/2020 Intractable Arnold-Gastaut syndrome 09/27/2018 Breakthrough seizures 09/27/2018 Gastrostomy tube [...] Protocol After Arrest Oc curs Care Teams Wet Process Technician Relationship Specialty Start Date End Date Luis Angel Flores [address] [place] [address] PCP - General Family Practice 06/15/20 Luis Angel Flores [facility] 03/02/14
--- OUTSIDE RECORDS SUMMARY | 2024-03-14 04:07 | XMS_ITS | Clinical Summary ---
Author Organization [facility] Address [address] [place] [address] Care Team Providers Care Faculty Support Coordinator Name Role Phone Elsewhere, Pcp Primary Care Provider Unavailabl e Source Comments Patient records contain information from all sites at [facility]. For routine questions regarding patient records, call [phone] during business hours, M-F 8:00 AM - 5:00 PM Central Time. Record requests for emergency care only can be directed to [phone] at any time.[facility] Allergies Active Allergy Reactions Criticality Noted Date Comments Amoxicillin-Pot Clavulanate Other (see comments) High 07/01/2020 Acute generalized exanthematous pustulosis (severe cutaneous adverse reaction) noted 07/01/2020. Augmentin/ Amoxicillin use contraindicated. Camphor Other (see comments) 12/20/2010 Converted from Generic Allergy: Eucalyptus/Menthol/Campho r Lspezce-Oqoorovbzf-C enthol Other (see comments) 12/01/2020 Cefaclor Other (see comments) 02/17/2010 Converted from Generic Allergy: Cefaclorleukopenia leukopenia Euc Wig-Fejo-Hfu,Rosem Oils-Pt Rash 05/14/2022 Levofloxacin Rash 05/14/2022 Penicillin [...] every morning. 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 Omar, Ibrahim A, M.D. 03/11/2024 1:33 PM CDT - 03/11/2024 4:50 PM CDT Surgery [facility] [address] [place] [phone] Aleks Hinkle M.D. EXPLORATION ABDOMINAL, cholecystectomy, sigmoidectomy, ileocolonic anastomosis, descending colostomy 03/11/2024 9:40 AM CDT Ancillary Procedure Department of Nursing Arrived 03/11/2024 9:35 AM CDT Ancillary Procedure Department of Nursing Arrived 03/10/2024 3:10 PM CDT Ancillary Procedure Department of Trauma and Surgery 03/10/2024 2:09 PM CDT Anesthesia Event [facility] [address] [place] [phone] Shanika Carpenter M.D. Lao, Randolph N, APRN, KRISHAN, DNAP 03/10/2024 1:50 PM CDT - 03/10/2024 4:37 PM CDT Surgery [facility] [address] [place] [phone] Aleks Hinkle M.D. LAPAROSCOPIC EXPLORATION CONVERTED TO OPEN EXPLORATION LAPAROTOMY, RIGHT YAMIL-COLECTOMY, TEMPORARY ABDOMINAL CLOSURE 03/10/2024 10:45 AM CDT Ancillary Procedure Department of Nursing 03/06/2024 9:59 AM CDT Anesthesia Event Department of Radiology, [facility], in [place], [place] [address] [place] [phone] Ginger Hardin APRN, KRISHAN, DNAP 03/05/2024 10:05 PM CDT Ancillary Procedure Department of Nursing 03/03/2024 10:15 PM CDT Ancillary Procedure Department of Nursing 03/01/2024 12:20 PM CDT Ancillary Procedure Department of Nursing 02/29/2024 9:00 AM CDT Ancillary Procedure Department of Nursing 02/29/2024 8:55 AM CDT Ancillary Procedure Department of Nursing 02/29/2024 6:00 AM CDT Ancillary Procedure Department of Radiology in [place], [place] [address] [place] [phone] Erasmo Lloyd APRN, C.N.P., D.N.P. 02/28/2024 4:50 PM CDT Ancillary Procedure Department of Nursing 02/28/2024 3:50 PM CDT Ancillary Procedure Department of Nursing 02/28/2024 2:51 PM CDT - Present Hospital Encounter [facility], [facility], [facility], Seventh Floor [address] [place] [phone] Wes Person M.B.B.S. Rufus Ba M.B.B.S. Buckarma, Eeeln H, M.D. Sonido Cruz M.D., Ph.D. Acute Respiratory Failure With Hypoxia (HCC) (Primary Dx); Aspiration Pneumonia Secondary to Procedure; Decline Functional Status [R53.81]; Pneumoperitoneum 02/28/2024 Intake [facility] 02/02/2024 10:40 AM CDT - 02/02/2024 11:59 PM CDT Hospital Encounter Department of Laboratory Medicine in [place], [place] [address] [place] [phone] Jose Martin Eaton M.D. 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 Snoring (Primary Dx); Hypoxemia; Stroke Cerebrovascular Accident Personal History 12/30/2023 Orders Only Department of Nutrition and Diabetes Education in [place], [place] [address] [place] [phone] Na Brennan, MARYN, LD Burleson Gastaut Syndrome (HCC) (Primary Dx); Gastrojejunostomy Percutaneous Status Post ; Dietary Counseling And Surveillance For Enteral Nutrition 12/29/2023 12:52 PM CDT Anesthesia Event Division of Gastroenterology in [place] [id number] [place] [phone] Cruz Edmonds APRN, KRISHAN 12/29/2023 11:05 AM CDT - 12/29/2023 11:59 PM CDT Hospital Encounter Department of Radiology, [facility] in [place], [place] [address] [place] [phone] Pedro Pablo Kline M.D. Discharge Disposition: Home or Self Care 12/27/2023 12:50 AM CDT Ancillary Procedure Department of Pulmonary and CC Medicine 12/27/2023 Orders Only [facility] in [place], [place] [address] [place] [phone] Srinath Rodriguez M.D. 12/26/2023 4:16 PM CDT - 12/30/2023 12:14 PM CDT Hospital Encounter [facility], [facility], [facility], Sixth Floor [address] [place] [phone] Jamia Lozano M.D. Andria Shaffer M.B.BMaySMay, M.Keren. Wes Person M.B.BMayS. Feliciano Alejandre M.D., Ph.D. Pneumonia (Primary Dx); Sepsis (HCC); Aftercare Feeding Tube; Dehydration; Diarrhea; Acidosis Lactic; Dysphagia Oropharyngeal Phase [R13.12] Discharge Disposition: Home or Self Care 12/26/2023 Nurse Triage Department of Family Medicine, [facility], in [place], [place] [address] [place] [phone] Poonam Jasmine R.N. Vomiting; Tube Problem 12/20/2023 Documentation Division of Endocrinology in [place], [place] [address] [place] [phone] Anastasia Chaney RMayN. Scheduling 12/20/2023 Orders Only Division of Endocrinology in [place], [place] [address] [place] [phone] Anastasia Chaney R.N. Dietary Counseling And Surveillance For Enteral Nutrition (Primary Dx) 12/20/2023 Clinical Communication Division of Endocrinology in [place], [place] [address] [place] [phone] Provider, Unknown Follow-up Orders from Last 3 [...] failure Grandmother maternal Arthritis Maternal Grandfather champ aguirre Coronary artery disease Maternal Grandmother Champ josef nitjessica Depression Maternal Grandmother Champ leon Hypertension Maternal Grandmother Champ leon Sleep apnea Maternal Grandmother Champ leon Transient ischemic attack Maternal Grandmother Champ conchitau chniburt Anemia Mother Ke hilario Anxiety disorder Mother [...] yanelis Grandfather Grandmother maternal Maternal Grandfather champ aguirre Maternal Grandmother Champ edward Mother Ke hilario Paternal Grandfather Suleman aguirre Paternal Grandmother shauna hilario Sister 1 neeta hilario Sister 2 etta hilario Social History Tobacco Use Types Packs/Day Years Used Date Smoking Tobacco: Never Smokeless Tobacco: Never Alcohol Use Standard Drinks/Week Comments Never 0 (1 standard drink = 0.6 oz pur e alcohol) [facility] Utilities Answer Date Recorded In the past 12 months has e [employer], gas, oil, or water [employer] threatened to shut off services in your home? Patient unable to answer 03/13/2024 Humiliation, Afraid, Rape, a nd Kick questionnaire Answer Date Recorded Within the last year, have y ou been afraid of your partner or ex-partner? Patient unable to answer 03/13/2024 Within the last year, have y ou been humiliated or emotionally abused in other ways by your partner or ex-partner? Patient unable to answer 03/13/2024 Within the last year, have y ou been kicked, hit, slapped, or otherwise physically hurt by your partner or ex-partner? Patient unable to answer 03/13/2024 Within the last year, have y ou been raped or forced to have any kind of sexual activity by your partner or ex-partner? Patient unable to answer 03/13/2024 Social Connection and Isolation Panel [NHANES] A nswer Date Recorded In a typical week, how many times do you talk on the phone with family, friends, or neighbors? Never 12/11/2021 How often do you get togethe r with friends or relatives? Patient declined 12/11/2021 How often do you attend alevism or temple serv ices? Patient declined 12/11/2021 [...] and heating? Not hard at all 12/11/2021 [facility] of Occupat ional Health - Occupational Stress [...] to buy more. Patient unable to answer 03/13/2024 Within the past 12 months, t he food you bought just didn't last and you didn't have money to get more. Patient unable to answer 03/13/2024 PRAPARE - Transportation Answer Date Re corded In the past 12 months, has l ack of transportation kept you from medical appointments or from getting medications? Patient unable to answer 03/13/2024 In the past 12 months, has l ack of transportation kept you from meetings, work, or from getting things needed for daily living? Patient unable to answer 03/13/2024 Nutrition Answer Date Recorded On average, how [...] situation today? Patient jimmie ble to answer 03/13/2024 Sex and Gender Information Value Date Recorded Sex Assigned at Male 12/11/2021 2:11 PM CDT Gender Identity Male 12/11/2021 1:44 PM CDT Sexual Orientation Straight 12/11/2021 2: 11 PM CDT Last Filed Vital Signs Vital Sign Reading Time Taken Comments Blood Pressure 94/57 03/13/2024 10:30 PM CDT Pulse 84 03/14/2024 3:55 AM CDT Temperature 37.1 ??C (98.8 ??F) 03/14/2024 3:55 AM CD T Respiratory Rate 15 03/14/2024 3:55 AM CDT Oxygen Saturation 99% 03/14/2024 3:55 AM CDT Inhaled Oxygen Concentration - - Weight 72.9 kg (160 lb 11.5 oz) 024 12:00 AM CDT Height 156 cm (5' 1.42) 03/13/2024 9:12 AM CDT Body Mass Index 29.96 03/13/2024 9:12 AM CDT Plan of Treatment Health Maintenance [...] 2023 04/28/2022, 06/11/2021, 12/18/2020, Additional history exists Depression Screening (Annual PHQ-2) 09/13/2023 Influenza Vaccine (#1) 2024 , 06/04/2021, 05/28/2020, Additional history exists Creatinine Level (Kidney Function Test) 03/13/2025 03/13/2024, 03/12/2024, 03/12/2024, Additional history exists Potassium Level 03/13/2025 03/13/2024, 02/13, 03/12/2024, Additional history exists Sodium Level 03/13/2025 03/13/2024, 02/13, 03/12/2024, Additional history exists Pneumococcal vaccine (0-64 years) Aged Out 01/13/2016, 09/20/2006 No longer eligibl e based on patient's age to complete this topic Glucose Test for Med Monitoring Discontinued 03/13/2024, 03/13/2024, 03/12/2024, Additional history exists HPV Vaccines Aged Out No longer eligi ble based on patient's age to complete this topic Medical Devices Implanted Type Area Spinning Bath Person Device Identifier Shelf Expiration Date Model / Serial / Lot Elena Millsfilpao 3x5 - [id number] Implanted:Qt y: 1 on 03/10/2024 by Aleks Hinkle M.D. at [facility] Mesh or Patch N/A: Abdomen Moore 03/11/2026 [id number] / / [id number] Stnt Uret Inl 6fx24 - Sna - [id number] Implanted:Qt y: 1 on 04/05/2023 by Erika Londono M.D. at [facility] Ureteral Stent C.R.Bard [id number] 04/28/2027 [id number] / NA / [id number] Explanted Type Area Spinning Bath Person Device Identifier Shelf Expiration Date Model / Serial / Lot Stnt Uret Inl 7fx24 - [id number] Implanted:Qty : 1 on 02/22/2023 by Danita Munoz M.D. at [facility] Explanted:Qty : 1 on 04/05/2023 by Erika Londono M.D. Ureteral Stent Left: Ureter C.R.Bard [id number] 08/06/2026 [id number] / / [id number] Procedures The patient is currently admitted. The information in this section might not be complete until the patient is discharged. Procedure Name Priority Date/Time Associated Diagnosis Comments PATIENT STATUS, ABG STAT 03/13/2024 1 :37 PM CDT ABG W/COOX STAT 03/13/2024 1:37 PM CDT PREPARE FRESH FROZEN PLASMA Routine 03/13/2024 10:30 AM CDT NURSING IMAGE EXAM Routine 03/13/2024 10:06 AM CDT NURSING IMAGE EXAM Routine 03/13/2024 10:05 AM CDT PATIENT STATUS Timed 03/13/2024 9:28 AM CDT VENOUS BLOOD GAS W/COOX, B Timed 03/13/2024 9:28 AM CDT MRSA/STAPHYLOCOCCUS AUREUS, NASAL, BY PCR Routine 03/13/2024 9:28 AM CDT PATIENT STATUS, ABG Timed 03/13/2024 9 :00 AM CDT ABG W/COOX Timed 03/13/2024 9:00 AM CDT LACTATE, B/P Timed 03/13/2024 8:50 AM CDT PATIENT STATUS Timed 03/13/2024 8:37 AM CDT VENOUS BLOOD GAS W/COOX, B Timed 03/13/2024 8:37 AM CDT GLUCOSE POCT, B Routine 03/13/2024 7:39 AM CDT DX CHEST PORTABLE 1 VIEW RAD - Routine (most inpatients and all outpatients) 03/13/2024 5:14 AM CDT APIXABAN, ANTI-XA, P Routine 03/13/2024 4:35 AM CDT PROTHROMBIN TIME (PT), P Routine 03/13/2024 4:35 AM CDT PHOSPHORUS (INORGANIC), S Routine 03/13/2024 4:35 AM CDT MAGNESIUM, S Routine 03/13/2024 4:35 AM CDT HEPATIC FUNCTION PANEL, S Routine 03/13/2024 4:35 AM CDT BASIC METABOLIC PANEL, S/P Routine 03/13/2024 4:35 AM CDT CALCIUM, IONIZED, S/B Routine 03/13/2024 4:34 AM CDT CBC WITHOUT DIFFERENTIAL, B Routine 03/13/2024 4:34 AM CDT THROMBOELASTOGRAPH, KAOLIN, B Routine 03/13/2024 4:31 AM CDT PREPARE FRESH FROZEN PLASMA Routine 03/13/2024 4:30 AM CDT CORTISOL, S Routine 03/13/2024 4:25 AM CDT CYSTATIN C WITH EGFR Routine 03/13/2024 4:25 AM CDT MECHANICAL VENTILATOR Routine 03/13/2024 3:00 AM CDT CBC WITHOUT DIFFERENTIAL, B Timed 03/12/2024 11:55 PM CDT THROMBOELASTOGRAPH, KAOLIN, B Timed 03/12/2024 11:53 PM CDT TRANSFUSE CRYOPRECIPITATE Routine 03/12/2024 11:08 PM CDT MECHANICAL VENTILATOR Routine 03/12/2024 11:01 PM CDT TRANSFUSE FRESH FROZEN PLASMA Routine 03/12/2024 10:17 PM CDT TRANSFUSE FRESH FROZEN PLASMA Routine 03/12/2024 9:39 PM CDT GLUCOSE POCT, B Routine 03/12/2024 9:37 PM CDT AIRWAY CARE Routine 03/12/2024 8:00 PM CDT ADULT OXYGEN THERAPY Routine 03/12/2024 8:00 PM CDT TRANSFUSE RED BLOOD CELLS Routine 03/12/2024 7:46 PM CDT MECHANICAL VENTILATOR Routine 03/12/2024 7:00 PM CDT PREPARE CRYOPRECIPITATE Routine 03/12/2024 6:39 PM CDT PREPARE RED BLOOD CELLS Routine 03/12/2024 6:39 PM CDT TYPE AND SCREEN Routine 03/12/2024 6:39 PM CDT THROMBOELASTOGRAPH, KAOLIN, B Timed 03/12/2024 5:18 PM CDT CBC WITHOUT DIFFERENTIAL, B Timed 03/12/2024 5:18 PM CDT GLUCOSE POCT, B Routine 03/12/2024 5:17 PM CDT MECHANICAL VENTILATOR Routine 03/12/2024 3:00 PM CDT TRANSFUSE FRESH FROZEN PLASMA Routine 03/12/2024 2:51 PM CDT THROMBOELASTOGRAPH, KAOLIN, B STAT 03/12/2024 1:18 PM CDT PATIENT STATUS, ABG Timed 03/12/2024 11:59 AM CDT BASIC METABOLIC PANEL, S/P Timed 03/12/2024 11:59 AM CDT ABG W/COOX Timed 03/12/2024 11:59 AM CDT CBC WITHOUT DIFFERENTIAL, B Timed 03/12/2024 11:59 AM CDT GLUCOSE POCT, B Routine 03/12/2024 11:58 AM CDT MECHANICAL VENTILATOR Routine 03/12/2024 11:00 AM CDT GLUCOSE POCT, B Routine 03/12/2024 8:51 AM CDT AIRWAY CARE Routine 03/12/2024 8:00 AM CDT ADULT OXYGEN THERAPY Routine 03/12/2024 8:00 AM CDT MECHANICAL VENTILATOR Routine 03/12/2024 7:00 AM CDT DX CHEST PORTABLE 1 VIEW RAD - Routine (most inpatients and all outpatients) 03/12/2024 5:32 AM CDT PREPARE PLATELETS Routine 03/12/2024 4:3 0 AM CDT MECHANICAL VENTILATOR Routine 03/12/2024 3:00 AM CDT THROMBOELASTOGRAPH, KAOLIN, B Routine 03/12/2024 2:55 AM CDT CALCIUM, IONIZED, S/B Routine 03/12/2024 2:45 AM CDT PATIENT STATUS, ABG Routine 03/12/2024 2 :45 AM CDT ABG W/COOX Routine 03/12/2024 2:45 AM CDT LACTATE, B/P Routine 03/12/2024 2:44 AM CDT PHOSPHORUS (INORGANIC), S Routine 03/12/2024 2:44 AM CDT MAGNESIUM, S Routine 03/12/2024 2:44 AM CDT BASIC METABOLIC PANEL, S/P Routine 03/12/2024 2:44 AM CDT CBC WITHOUT DIFFERENTIAL, B Routine 03/12/2024 2:44 AM CDT PREPARE FRESH FROZEN PLASMA Routine 03/12/2024 2:30 AM CDT MECHANICAL VENTILATOR Routine 03/11/2024 11:00 PM CDT GLUCOSE POCT, B Routine 03/11/2024 9:11 PM CDT AIRWAY CARE Routine 03/11/2024 8:00 PM CDT ADULT OXYGEN THERAPY Routine 03/11/2024 8:00 PM CDT MECHANICAL VENTILATOR Routine 03/11/2024 7:00 PM CDT CALCIUM, IONIZED, S/B STAT 03/11/2024 6:48 PM CDT PHOSPHORUS (INORGANIC), S STAT 03/11/2024 6:48 PM CDT MAGNESIUM, S STAT 03/11/2024 6:48 PM CDT PATIENT STATUS, ABG STAT 03/11/2024 6 :48 PM CDT BASIC METABOLIC PANEL, S/P STAT 03/11/2024 6:48 PM CDT ABG W/COOX STAT 03/11/2024 6:48 PM CDT CBC WITHOUT DIFFERENTIAL, B STAT 03/11/2024 6:48 PM CDT THROMBOELASTOGRAPH, KAOLIN, B STAT 03/11/2024 6:45 PM CDT DX ABDOMEN PORTABLE ANTERIOR POSTERIOR 1 VIEW RAD - Routine (most inpatients and all outpatients) 03/11/2024 6:12 PM CDT CBC WITHOUT DIFFERENTIAL, B STAT 03/11/2024 4:28 PM CDT TRANSFUSE RED BLOOD CELLS Routine 03/11/2024 3:52 PM CDT TRANSFUSE PLATELETS Routine 03/11/2024 3 :34 PM CDT MECHANICAL VENTILATOR Routine 03/11/2024 3:00 PM CDT PREPARE FRESH FROZEN PLASMA Routine 03/11/2024 2:30 PM CDT LACTATE, B/P Timed 03/11/2024 2:06 PM CDT CBC WITHOUT DIFFERENTIAL, B Timed 03/11/2024 2:06 PM CDT THROMBOELASTOGRAPH, KAOLIN, B Timed 03/11/2024 2:05 PM CDT EXPLORATION ABDOMINAL 03/11/2024 1:57 PM CDT Pneumoperitoneum TRANSFUSE FRESH FROZEN PLASMA Routine 03/11/2024 1:57 PM CDT TRANSFUSE RED BLOOD CELLS Routine 03/11/2024 12:07 PM CDT GLUCOSE POCT, B Routine 03/11/2024 11:51 AM CDT MECHANICAL VENTILATOR Routine 03/11/2024 11:00 AM CDT TRANSFUSE FRESH FROZEN PLASMA Routine 03/11/2024 10:33 AM CDT NURSING IMAGE EXAM Routine 03/11/2024 9: 35 AM CDT NURSING IMAGE EXAM Routine 03/11/2024 9: 35 AM CDT TRANSFUSE RED BLOOD CELLS Routine 03/11/2024 9:12 AM CDT AIRWAY CARE Routine 03/11/2024 8:00 AM CDT ADULT OXYGEN THERAPY Routine 03/11/2024 8:00 AM CDT GLUCOSE POCT, B Routine 03/11/2024 7:34 AM CDT MECHANICAL VENTILATOR Routine 03/11/2024 7:00 AM CDT PATIENT STATUS, ABG Routine 03/11/2024 6 :21 AM CDT ABG W/COOX Routine 03/11/2024 6:21 AM CDT PHOSPHORUS (INORGANIC), S Routine 03/11/2024 6:20 AM CDT MAGNESIUM, S Routine 03/11/2024 6:20 AM CDT CALCIUM, IONIZED, S/B Routine 03/11/2024 6:20 AM CDT HEPATIC FUNCTION PANEL, S Routine 03/11/2024 6:20 AM CDT CBC WITHOUT DIFFERENTIAL, B Routine 03/11/2024 6:20 AM CDT BASIC METABOLIC PANEL, S/P Routine 03/11/2024 6:20 AM CDT TRIGLYCERIDES, S Routine 03/11/2024 6:20 AM CDT THROMBOELASTOGRAPH, KAOLIN, B Routine 03/11/2024 6:18 AM CDT DX CHEST PORTABLE 1 VIEW RAD - Routine (most inpatients and all outpatients) 03/11/2024 5:40 AM CDT MECHANICAL VENTILATOR Routine 03/11/2024 3:00 AM CDT TRANSFUSE FRESH FROZEN PLASMA Routine 03/11/2024 1:30 AM CDT TRANSFUSE FRESH FROZEN PLASMA Routine 03/10/2024 11:45 PM CDT MECHANICAL VENTILATOR Routine 03/10/2024 11:00 PM CDT TRANSFUSE FRESH FROZEN PLASMA Routine 03/10/2024 9:27 PM CDT GLUCOSE POCT, B Routine 03/10/2024 9:25 PM CDT TROPONIN T, 2H/6H REFLEX, 5TH GEN, P Timed 03/10/2024 8:25 PM CDT BACTERIA / CHRISTOPHER CULTURE, BLOOD STAT 03/10/2024 8:24 PM CDT AIRWAY CARE Routine 03/10/2024 8:00 PM CDT ADULT OXYGEN THERAPY Routine 03/10/2024 8:00 PM CDT TRANSFUSE FRESH FROZEN PLASMA Routine 03/10/2024 7:40 PM CDT MECHANICAL VENTILATOR Routine 03/10/2024 7:00 PM CDT BACTERIA / CHRISTOPHER CULTURE, BLOOD STAT 03/10/2024 6:25 PM CDT PATIENT STATUS, ABG STAT 03/10/2024 6 :13 PM CDT CALCIUM, IONIZED, S/B STAT 03/10/2024 6:13 PM CDT ABG W/COOX STAT 03/10/2024 6:13 PM CDT TROPONIN T, BASELINE, 5TH GEN, P STAT 03/10/2024 6:12 PM CDT PHOSPHORUS (INORGANIC), S STAT 03/10/2024 6:12 PM CDT MAGNESIUM, S STAT 03/10/2024 6:12 PM CDT LACTATE, B/P STAT 03/10/2024 6:12 PM CDT HEPATIC FUNCTION PANEL, S STAT 03/10/2024 6:12 PM CDT CBC WITHOUT DIFFERENTIAL, B STAT 03/10/2024 6:12 PM CDT BASIC METABOLIC PANEL, S/P STAT 03/10/2024 6:12 PM CDT THROMBOELASTOGRAPH, KAOLIN, B STAT 03/10/2024 6:08 PM CDT DX CHEST PORTABLE 1 VIEW RAD - Emergent (Fastest; for the most critically ill patients) 03/10/2024 5:45 PM CDT ECG Routine 03/10/2024 5:37 PM CDT PATIENT STATUS, ABG STAT 03/10/2024 4 :39 PM CDT PLATELETS, B STAT 03/10/2024 4:39 PM CDT PROTHROMBIN TIME (PT), P STAT 03/10/2024 4:39 PM CDT FIBRINOGEN, P STAT 03/10/2024 4:39 PM CDT ACTIVATED PARTIAL THROMBOPLASTIN TIME (APTT), P STAT 03/10/2024 4:39 PM CDT GLUCOSE, WHOLE BLOOD STAT 03/10/2024 4:39 PM CDT POTASSIUM, B STAT 03/10/2024 4:39 PM CDT SODIUM, B STAT 03/10/2024 4:39 PM CDT CALCIUM, IONIZED, S/B STAT 03/10/2024 4:39 PM CDT ABG W/COOX STAT 03/10/2024 4:39 PM CDT TRANSFUSE RED BLOOD CELLS Routine 03/10/2024 4:24 PM CDT TRANSFUSE RED BLOOD CELLS Routine 03/10/2024 3:59 PM CDT PATIENT STATUS, ABG STAT 03/10/2024 3 :25 PM CDT GLUCOSE, WHOLE BLOOD STAT 03/10/2024 3:25 PM CDT POTASSIUM, B STAT 03/10/2024 3:25 PM CDT SODIUM, B STAT 03/10/2024 3:25 PM CDT CALCIUM, IONIZED, S/B STAT 03/10/2024 3:25 PM CDT ABG W/COOX STAT 03/10/2024 3:25 PM CDT TRAUMA CC AND SURGERY IMAGE EXAM Routine 03/10/2024 3:09 PM CDT MECHANICAL VENTILATOR Routine 03/10/2024 3:00 PM CDT LDA ANE ARTERIAL LINE INSERTION Routine 03/10/2024 2:30 PM CDT VT ARTL CATH/CNULA MONITOR PERC Routine 03/10/2024 2:30 PM CDT LAPAROSCOPIC EXPLORATION - DIAGNOSTIC 03/10/2024 1:49 PM CDT PROTHROMBIN TIME (PT), P STAT 03/10/2024 1:07 PM CDT GLUCOSE POCT, B Routine 03/10/2024 11:38 AM CDT LACTATE, B/P STAT 03/10/2024 11:38 AM CDT MECHANICAL VENTILATOR Routine 03/10/2024 11:00 AM CDT NURSING IMAGE EXAM Routine 03/10/2024 10:[address] ABDOMEN PELVIS WITH IV CONTRAST RAD - Emergent (Fastest; for the most critically ill patients) 03/10/2024 10:13 AM CDT GLUCOSE POCT, B Routine 03/10/2024 8:24 AM CDT AIRWAY CARE Routine 03/10/2024 8:00 AM CDT ADULT OXYGEN THERAPY Routine 03/10/2024 8:00 AM CDT MECHANICAL VENTILATOR Routine 03/10/2024 7:00 AM CDT DX ABDOMEN PORTABLE ANTERIOR POSTERIOR 1 VIEW RAD - Routine (most inpatients and all outpatients) 03/10/2024 6:39 AM CDT CYSTATIN C WITH EGFR Routine 03/10/2024 4:19 AM CDT CBC WITHOUT DIFFERENTIAL, B Routine 03/10/2024 4:19 AM CDT PHOSPHORUS (INORGANIC), S Routine 03/10/2024 4:19 AM CDT MAGNESIUM, S Routine 03/10/2024 4:19 AM CDT BASIC METABOLIC PANEL, S/P Routine 03/10/2024 4:19 AM CDT MECHANICAL VENTILATOR Routine 03/10/2024 3:00 AM CDT GLUCOSE POCT, B Routine 03/10/2024 2:18 AM CDT MECHANICAL VENTILATOR Routine 03/09/2024 11:01 PM CDT GLUCOSE POCT, B Routine 03/09/2024 8:38 PM CDT AIRWAY CARE Routine 03/09/2024 8:00 PM CDT ADULT OXYGEN THERAPY Routine 03/09/2024 8:00 PM CDT MECHANICAL VENTILATOR Routine 03/09/2024 7:00 PM CDT GLUCOSE POCT, B Routine 03/09/2024 5:02 PM CDT DX ABDOMEN PORTABLE ANTERIOR POSTERIOR 1 VIEW RAD - Semiurgent (Fast; most ED patients; some inpatients) 03/09/2024 4:25 PM CDT MECHANICAL VENTILATOR Routine 03/09/2024 3:00 PM CDT PATIENT STATUS Routine 03/09/2024 12:50 PM CDT VENOUS BLOOD GAS W/O COOX Routine 03/09/2024 12:50 PM CDT GLUCOSE POCT, B Routine 03/09/2024 11:50 AM CDT MECHANICAL VENTILATOR Routine 03/09/2024 11:00 AM CDT AIRWAY CARE Routine 03/09/2024 8:00 AM CDT ADULT OXYGEN THERAPY Routine 03/09/2024 8:00 AM CDT GLUCOSE POCT, B Routine 03/09/2024 7:30 AM CDT MECHANICAL VENTILATOR Routine 03/09/2024 7:00 AM CDT CBC WITHOUT DIFFERENTIAL, B Routine 03/09/2024 3:22 AM CDT BASIC METABOLIC PANEL, S/P Routine 03/09/2024 3:22 AM CDT MAGNESIUM, S Routine 03/09/2024 3:17 AM CDT CYSTATIN C WITH EGFR Routine 03/09/2024 3:17 AM CDT MECHANICAL VENTILATOR Routine 03/09/2024 3:00 AM CDT MECHANICAL VENTILATOR Routine 03/08/2024 11:01 PM CDT GLUCOSE POCT, B Routine 03/08/2024 8:37 PM CDT AIRWAY CARE Routine 03/08/2024 8:00 PM CDT ADULT OXYGEN THERAPY Routine 03/08/2024 8:00 PM CDT MECHANICAL VENTILATOR Routine 03/08/2024 7:00 PM CDT GLUCOSE POCT, B Routine 03/08/2024 6:20 PM CDT GLUCOSE POCT, B Routine 03/08/2024 5:10 PM CDT PATIENT STATUS, ABG STAT 03/08/2024 12:19 PM CDT ABG W/O COOX STAT 03/08/2024 12:19 PM CDT GLUCOSE POCT, B Routine 03/08/2024 12:09 PM CDT MECHANICAL VENTILATOR Routine 03/08/2024 11:00 AM CDT AIRWAY CARE Routine 03/08/2024 8:00 AM CDT ADULT OXYGEN THERAPY Routine 03/08/2024 8:00 AM CDT GLUCOSE POCT, B Routine 03/08/2024 7:48 AM CDT MECHANICAL VENTILATOR Routine 03/08/2024 7:00 AM CDT CBC WITHOUT DIFFERENTIAL, B Routine 03/08/2024 5:22 AM CDT BASIC METABOLIC PANEL, S/P Routine 03/08/2024 5:22 AM CDT PREPARE RED BLOOD CELLS STAT 03/08/2024 5:19 AM CDT PREPARE RED BLOOD CELLS Routine 03/08/2024 5:19 AM CDT PREPARE RED BLOOD CELLS STAT 03/08/2024 5:19 AM CDT TYPE AND SCREEN Routine 03/08/2024 5:19 AM CDT MECHANICAL VENTILATOR Routine 03/08/2024 3:00 AM CDT GLUCOSE POCT, B Routine 03/08/2024 2:01 AM CDT GLUCOSE POCT, B Routine 03/07/2024 11:49 PM CDT MECHANICAL VENTILATOR Routine 03/07/2024 11:01 PM CDT GLUCOSE POCT, B Routine 03/07/2024 8:33 PM CDT AIRWAY CARE Routine 03/07/2024 8:00 PM CDT ADULT OXYGEN THERAPY Routine 03/07/2024 8:00 PM CDT MECHANICAL VENTILATOR Routine 03/07/2024 7:00 PM CDT GLUCOSE POCT, B Routine 03/07/2024 5:36 PM CDT MECHANICAL VENTILATOR Routine 03/07/2024 3:[address] ABDOMEN PELVIS WITH IV CONTRAST RAD - Emergent (Fastest; for the most critically ill patients) 03/07/2024 2:52 PM CDT DX ABDOMEN PORTABLE ANTERIOR POSTERIOR 1 VIEW RAD - Emergent (Fastest; for the most critically ill patients) 03/07/2024 1:40 PM CDT GLUCOSE POCT, B Routine 03/07/2024 11:49 AM CDT APIXABAN, ANTI-XA, P Timed 03/07/2024 11:13 AM CDT POTASSIUM, S/P Timed 03/07/2024 11:13 AM CDT MECHANICAL VENTILATOR Routine 03/07/2024 11:00 AM CDT GLUCOSE POCT, B Routine 03/07/2024 9:32 AM CDT AIRWAY CARE Routine 03/07/2024 8:00 AM CDT ADULT OXYGEN THERAPY Routine 03/07/2024 8:00 AM CDT MECHANICAL VENTILATOR Routine 03/07/2024 7:01 AM CDT CYSTATIN C WITH EGFR Routine 03/07/2024 3:45 AM CDT CALCIUM, IONIZED, S/B Routine 03/07/2024 3:45 AM CDT CBC WITHOUT DIFFERENTIAL, B Routine 03/07/2024 3:45 AM CDT BASIC METABOLIC PANEL, S/P Routine 03/07/2024 3:45 AM CDT MECHANICAL VENTILATOR Routine 03/07/2024 3:00 AM CDT MECHANICAL VENTILATOR Routine 03/06/2024 11:01 PM CDT GLUCOSE POCT, B Routine 03/06/2024 8:04 PM CDT AIRWAY CARE Routine 03/06/2024 8:00 PM CDT ADULT OXYGEN THERAPY Routine 03/06/2024 8:00 PM CDT MECHANICAL VENTILATOR Routine 03/06/2024 7:00 PM CDT GLUCOSE POCT, B Routine 03/06/2024 5:46 PM CDT MECHANICAL VENTILATOR Routine 03/06/2024 3:00 PM CDT GLUCOSE POCT, B Routine 03/06/2024 12:10 PM CDT MECHANICAL VENTILATOR Routine 03/06/2024 11:00 AM CDT MR BRAIN WITHOUT IV CONTRAST RAD - Routine (most inpatients and all outpatients) 03/06/2024 10:54 AM CDT RUFINAMIDE, S Timed 03/06/2024 8:45 AM CDT LEVETIRACETAM LEVEL, S Timed 03/06/2024 8:45 AM CDT LAMOTRIGINE LEVEL, S Timed 03/06/2024 8:45 AM CDT CLOBAZAM AND METABOLITE Timed 03/06/2024 8:45 AM CDT GLUCOSE POCT, B Routine 03/06/2024 8:13 AM CDT AIRWAY CARE Routine 03/06/2024 8:00 AM CDT ADULT OXYGEN THERAPY Routine 03/06/2024 8:00 AM CDT EEG ROUTINE - AWAKE AND SLEEP Routine 03/06/2024 7:26 AM CDT MECHANICAL VENTILATOR Routine 03/06/2024 7:00 AM CDT FELBAMATE (FELBATOL) LEVEL, S Timed 03/06/2024 6:01 AM CDT CBC WITHOUT DIFFERENTIAL, B Routine 03/06/2024 6:01 AM CDT BASIC METABOLIC PANEL, S/P Routine 03/06/2024 6:01 AM CDT ALBUMIN, S/P Routine 03/06/2024 5:56 AM CDT MECHANICAL VENTILATOR Routine 03/06/2024 3:00 AM CDT MECHANICAL VENTILATOR Routine 03/05/2024 11:00 PM CDT NURSING IMAGE EXAM Routine 03/05/2024 10:05 PM CDT AIRWAY CARE Routine 03/05/2024 8:00 PM CDT ADULT OXYGEN THERAPY Routine 03/05/2024 8:00 PM CDT GLUCOSE POCT, B Routine 03/05/2024 7:35 PM CDT MECHANICAL VENTILATOR Routine 03/05/2024 7:00 PM CDT GLUCOSE POCT, B Routine 03/05/2024 5:32 PM CDT MECHANICAL VENTILATOR Routine 03/05/2024 3:00 PM CDT MECHANICAL VENTILATOR Routine 03/05/2024 11:00 AM CDT AIRWAY CARE Routine 03/05/2024 8:00 AM CDT ADULT OXYGEN THERAPY Routine 03/05/2024 8:00 AM CDT GLUCOSE POCT, B Routine 03/05/2024 7:13 AM CDT MECHANICAL VENTILATOR Routine 03/05/2024 7:00 AM CDT PHOSPHORUS (INORGANIC), S Routine 03/05/2024 5:19 AM CDT MAGNESIUM, S Routine 03/05/2024 5:19 AM CDT CBC WITHOUT DIFFERENTIAL, B Routine 03/05/2024 5:19 AM CDT BASIC METABOLIC PANEL, S/P Routine 03/05/2024 5:19 AM CDT AIRWAY CARE Routine 03/04/2024 8:01 PM CDT ADULT OXYGEN THERAPY Routine 03/04/2024 8:01 PM CDT GLUCOSE POCT, B Routine 03/04/2024 7:48 PM CDT MECHANICAL VENTILATOR Routine 03/04/2024 7:00 PM CDT GLUCOSE POCT, B Routine 03/04/2024 5:25 PM CDT MECHANICAL VENTILATOR Routine 03/04/2024 3:00 PM CDT GLUCOSE POCT, B Routine 03/04/2024 11:46 AM CDT MECHANICAL VENTILATOR Routine 03/04/2024 11:00 AM CDT AIRWAY CARE Routine 03/04/2024 8:01 AM CDT ADULT OXYGEN THERAPY Routine 03/04/2024 8:01 AM CDT GLUCOSE POCT, B Routine 03/04/2024 7:22 AM CDT MECHANICAL VENTILATOR Routine 03/04/2024 7:01 AM CDT PHOSPHORUS (INORGANIC), S Routine 03/04/2024 3:27 AM CDT CBC WITHOUT DIFFERENTIAL, B Routine 03/04/2024 3:27 AM CDT BASIC METABOLIC PANEL, S/P Routine 03/04/2024 3:27 AM CDT MECHANICAL VENTILATOR Routine 03/03/2024 11:00 PM CDT NURSING IMAGE EXAM Routine 03/03/2024 10:15 PM CDT GLUCOSE POCT, B Routine 03/03/2024 8:48 PM CDT AIRWAY CARE Routine 03/03/2024 8:00 PM CDT ADULT OXYGEN THERAPY Routine 03/03/2024 8:00 PM CDT MECHANICAL VENTILATOR Routine 03/03/2024 7:01 PM CDT GLUCOSE POCT, B Routine 03/03/2024 5:23 PM CDT MECHANICAL VENTILATOR Routine 03/03/2024 3:00 PM CDT GLUCOSE POCT, B Routine 03/03/2024 12:23 PM CDT MECHANICAL VENTILATOR Routine 03/03/2024 11:00 AM CDT AIRWAY CARE Routine 03/03/2024 8:00 AM CDT ADULT OXYGEN THERAPY Routine 03/03/2024 8:00 AM CDT GLUCOSE POCT, B Routine 03/03/2024 7:38 AM CDT MECHANICAL VENTILATOR Routine 03/03/2024 7:01 AM CDT CBC WITHOUT DIFFERENTIAL, B Routine [...] CATHETER (PICC) Routine 03/02/2024 11:59 AM CDT RUFINAMIDE, S Routine 03/02/2024 11:18 AM CDT LEVETIRACETAM LEVEL, S Routine 03/02/2024 11:18 AM CDT LAMOTRIGINE LEVEL, S Routine 03/02/2024 11:18 AM CDT FELBAMATE (FELBATOL) LEVEL, S Routine 03/02/2024 11:18 AM CDT CLOBAZAM AND METABOLITE Routine 03/02/2024 11:18 AM CDT MECHANICAL VENTILATOR [...] BROCHOALVEOLAR LAVAGE Routine 03/02/2024 2:38 AM CDT BACTERIAL CULTURE, AEROBIC + SUSC, RESP Routine 03/02/2024 12:44 AM CDT LEGIONELLA AG, [...] INVASIVE CATHETER Routine 03/01/2024 10:55 PM CDT VT BRONCHOSCOPY W ALVEOLAR LAVAGE Routine 03/01/2024 10:30 [...] CDT Acute Respiratory Failure With Hypoxia (HCC) VT INTUB W ETT Routine 03/01/2024 10:00 PM [...] 02/29/2024 12:22 PM CDT RESPIRATORY PANEL, PCR, SONG PLUGGER Routine 02/29/2024 9:12 AM CDT NURSING IMAGE [...] LEVEL, S Routine 02/02/2024 11:03 AM CDT 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) HEPATIC FUNCTION PANEL, S Routine 02/02/2024 11:03 AM CDT 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 CBC WITH DIFFERENTIAL, B Routine 02/02/2024 11:03 AM CDT Medication Therapy Fpc Not Anticoagulant FELBAMATE (FELBATOL) LEVEL, S Routine 02/02/2024 11:03 AM CDT 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 PERCUTANEOUS ENDOSCOPIC GASTROSTOMY/JEJUNOSTO MY Routine 12/29/2023 1:23 PM CDT FL FLUORO [...] CDT from Last 3 Months Results * Patient Status (03/13/2024 1:37 PM CDT) Only the most recent of15 resultswithin the time period is included. O2 Flow 0.3 L/min 03/13/2024 1:45 PM CDT STMA Device Vent 03/13/2024 1:45 PM CDT STMA Spont. breaths/min 16 03/13/2024 1:45 PM CDT STMA Blood 03/13/2024 1:37 PM CDT 03/13/2024 1:45 PM CDT Alesha J Yuridia BUSTOS, C.N.P., D.N.P. LAB BLOOD NON ADD-ON [facility] [address] [place] [address], [facility] STMA [facility] [address] [place] [address] * (ABNORMAL) Blood Gas with Coox, Arterial (03/13/2024 1:37 PM CDT) Only the most recent of9 resultswithin the time period is included. pO2 145(H) 83 - 108 mm Hg 03/13/2024 1:48 PM CDT STMA pCO2 41 35 - 48 mm Hg 03/13/2024 1:48 PM CDT STMA pH 7.38 7.35 - 7.45 pH 03/13/2024 1:48 PM CDT STMA Base Excess 0 -2 - 3 mmol/L 03/13/2024 1:48 PM CDT STMA HCO3 24 22 - 26 mmol/L 03/13/2024 1:48 PM CDT STMA Hemoglobin, B 8.1(L) 13.2 - 16.6 g/dL 03/13/2024 1:48 PM CDT STMA O2Hb 97.2 94.0 - 98.0 % 03/13/2024 1:48 PM CDT STMA COHb 1.9 <3.0 % 03/13/2024 1:48 PM CDT STMA MetHb <1.0 <1.5 % 03/13/2024 1:48 PM CDT STMA CtO2 11.3(L) 18.0 - 21.0 vol % 03/13/2024 1:48 PM CDT STMA Arterial Sample Site Art Line 03/13/2024 1:45 PM CDT STMA Comment:Wilfredo's test not don e. Blood (Blood, Arterial) 03/13/2024 1:37 PM CDT 03/13/2024 1:45 PM CDT Alesha DiegoGirish mullins APRN.N.P., D.N.P. LAB BLOOD NON ADD-ON [facility] [address] [place] [address], [facility] STMA [facility] [address] [place] [address] * Buttock/Sacrum-Nursing Image Exam (03/13/2024 10:06 AM CDT) Only the most recent of12 resultswithin the time period is included. 03/13/2024 10:0 3 AM CDT Narrative IIMS - 03/13/2024 10:06 AM CDT This order has been created and auto-finalized to support the import of images acquired without order. The clinical documentation to support these images can be found on the encounter that produced images. Provider Not In System IMG NON RAD IMAGI NG PROCEDURES Performing Organization Address City/[facility] Co de Phone Number IIMS NA * Patient Status (03/13/2024 9:28 AM CDT) Only the most recent of10 resultswithin the time period is included. O2 Flow 30.0 L/min 03/13/2024 9:31 AM CDT STMA Device Vent 03/13/2024 9:31 AM CDT STMA Spont. breaths/min 14 03/13/2024 9:31 AM CDT STMA Blood 03/13/2024 9:28 AM CDT 03/13/2024 9:31 AM CDT Xiao Wheeler APRN, Girish.N.P., D.N.P. LAB BLOOD NON ADD-ON Performing Organization Address City/[facility]/ZIP Co de Phone Number [facility] [address] [place] [address], [place] STMA [facility] [address] [place] [address] * Staph aureus / MRSA, Nasal, PCR (03/13/2024 9:28 AM CDT) Only the most recent of2 resultswithin the time period is included. Staphylococcus aureus, PCR Negative Negative 03/13/2024 11:51 AM CDT DTL MRSA, PCR Negative Negative 03/13/2024 11:51 AM CDT DTL Swab (Nares) 03/13/2024 9:28 AM CDT 03/13/2024 10:12 AM CDT Alesha Federico Shi APRN, C.N.P., D.N.P. LAB MICROBIOLOGY - GENERAL ORDERABLES [facility] [address] [place] [address], [facility] [address] [place] [address] * (ABNORMAL) Blood Gas with Coox, Venous (03/13/2024 9:28 AM CDT) Only the most recent of4 resultswithin the time period is included. Pathologist [facility] pO2, Venous, B 52 Not applicable mm Hg 03/13/2024 9:34 AM CDT STMA pCO2, Venous, B 50 41 - 51 mm Hg 03/13/2024 9:34 AM CDT STMA pH, Venous, B 7.35 7.32 - 7.43 pH 024 9:34 AM CDT STMA Base Excess, Venous, B 2 Not applicable mmol/L 03/13/2024 9:34 AM CDT STMA HCO3, Venous, B 27 Not applicable mmol/L 03/13/2024 9:34 AM CDT STMA Hemoglobin, Venous, B 8.5(L) 13.2 - 16.6 g/dL 03/13/2024 9:34 AM CDT STMA O2Hb, Venous, B 80.0 Not applicable % 03/13/2024 9:34 AM CDT STMA COHb, Venous, B 2.1 <3.0 % 03/13/2024 9:34 AM CDT STMA MetHb, Venous, B <1.0 <1.5 % 03/13/2024 9:34 AM CDT STMA CtO2, Venous, B 9.6 Not Applicable vol % 03/13/2024 9:34 AM CDT STMA Sample Site, Venous, B PICC 03/13/2024 9:31 AM CDT STMA Blood (Blood, Venous) 03/13/2024 9:28 AM CDT 03/13/2024 9:31 AM CDT Xiao Wheeler APRN, C.N.P., D.N.P. LAB BLOOD NON ADD-ON [facility] [address] [place] [address] * Lactate (03/13/2024 8:50 AM CDT) Only the most recent of10 resultswithin the time period is included. Pathologist [facility] Lactate, P 0.6 0.5 - 2.2 mmol/L 03/13/2024 9:07 AM CDT STMA Blood (Blood, Venous) 03/13/2024 8:50 AM CDT 03/13/2024 8:54 AM CDT Alesha Shi APRN, C.N.P., D.N.P. LAB BLOOD NON ADD-ON [facility] [address] [place], [place] [id number] [place] [address] [address] [place] [address] * Glucose, POCT (03/13/2024 7:39 AM CDT) Only the most recent of63 resultswithin the time period is included. Glucose, POCT, B 118 70 - 140 mg/dL 03/13/2024 7:43 AM CDT PCLX Site ARTLINE 03/13/2024 7:43 AM CDT PCLX Last Intake TPN 03/13/2024 7:43 AM CDT PCLX Blood 03/13/2024 7:39 AM CDT 03/13/2024 7:43 AM CDT Unknown Provider LAB POCT ORDERABLES- MANUAL POC [facility] [address] [place] [address], [place] PCLX [facility] [place] POC [address] [place] [address] * DX Chest Portable 1 View (03/13/2024 5:14 AM CDT) Only the most recent of8 resultswithin the time period is included. Anatomical Region Laterality Modality Chest, Thoracic RST LOS, Tho racic ARZ LOS, Thoracic FLA LOS N/A Digital Radiography Impressions 03/13/2024 7:33 AM CDT Since 03/12/2024, decreasing but persistent patchy airspace opacities greatest in the mid and upper lungs. Increased small layering left pleural effusion. The remainder is not significantly changed. Small right pleural effusion. Bibasilar atelectasis. ETT tip in the mid intrathoracic trachea. Right arm PICC with tip near the superior cavoatrial junction. Subdiaphragmatic enteric tube. Narrative 03/13/2024 7:33 AM CDT EXAM: ??DX CHEST PORTABLE 1 VIEW Procedure Note Mary Moss M.D. - 03/13/2024 EXAM: DX CHEST PORTABLE 1 VIEW IMPRESSION: Since 03/12/2024, decreasing but persistent patchy airspace opacitiesgreatest in the mid and upper lungs. Increased small layering left pleuraleffusion. The remainder is not significantly changed. Small right pleuraleffusion. Bibasilar atelectasis. ETT tip in the mid intrathoracic trachea. Right arm PICC withtip near the superior cavoatrial junction. Subdiaphragmatic enterictube. Neel Hernandez APRNNMayPMay IMG [facility] GNOST[facility] IMAGING PROCEDURES * Apixaban, Anti-Xa, P (03/13/2024 4:35 AM CDT) Only the most recent of2 resultswithin the time period is included. Apixaban, Anti-Xa, P 14 see interpretation ng/mL 03/13/2024 11:59 AM CDT DTL Comment: ----ADDITIONAL INFORMATION---- This test has been modified from the assembler mechanical ordnance's instructions. Its performance characteristics were determined by [facility] in a manner consistent with CLIA requirements. This test has not been cleared or approved by the U.S. Food and Drug Administration. Interpretation SEE COMMENT 03/13/2024 11:59 AM CDT DTL Comment: Therapeutic reference ranges have not been established. Median (5th-95th percentile) peak and trough levels observed in clinical trials are shown. Non-valvular atrial fibrillation: Peak levels (2-4 hrs post dose): 2.5 mg (twice daily): 123 (69-221) ng/mL 5 mg (twice daily): 171 (91-321) ng/mL Trough levels (10-12 hrs post dose): 2.5 mg (twice daily): 79 (34-162) ng/mL 5 mg (twice daily): 103 (41-230) ng/mL Prevention and treatment of venous thromboembolism: Peak levels (2-4 hrs post dose): 2.5 mg (twice daily): 67 (30-153) ng/mL 5 mg (twice daily): 132 (59-302) ng/mL 10 mg (twice daily): 251 (111-572) ng/mL Trough levels (10-12 hrs post dose): 2.5 mg (twice daily): 32 (11-90) ng/mL 5 mg (twice daily): 63 (22-177) ng/mL 10 mg (twice daily): 120 (41-335) ng/mL Cautions SEE COMMENT 03/13/2024 11:59 AM CDT DTL Comment: This assay is not indicated for monitoring low molecular weight heparin (LMWH) or unfractionated heparin (UFH). Presence of UFH and LMWH will falsely elevate apixaban anti-Xa levels. Date/Time of Last Apixaban Dosage Unknown 03/13/2024 7:08 AM CDT DTL Blood (Blood, Venous) 03/13/2024 4:35 AM CDT 03/13/2024 7:08 AM CDT Samuel Webb Neel Belle APRNN.P. LAB BLOOD NON ADD-ON Performing Organization Address City/[facility]/ZIP Co de Phone Number [facility] [address] [place] [address], [facility] [address] [place] [address] * (ABNORMAL) Hepatic Function Panel (03/13/2024 4:35 AM CDT) Only the most recent of6 resultswithin the time period is included. Pathologist [facility] Bilirubin, Total, S 0.4 0.0 - 1.2 mg/dL 03/13/2024 5:31 AM CDT DTL Bilirubin, Direct, S <0.2 0.0 - 0.3 mg/dL 03/13/2024 5:31 AM CDT DTL Aspartate Aminotransferase (AST), S 63(H) 8 - 48 U/L 03/13/2024 5:31 AM CDT DTL Alanine Aminotransferase (ALT), S 41 7 - 55 U/L 03/13/2024 5:31 AM CDT DTL Alkaline Phosphatase, S 65 40 - 129 U/L 03/13/2024 5:31 AM CDT DTL Albumin, S 2.7(L) 3.5 - 5.0 g/dL 03/13/2024 5:31 AM CDT DTL Protein, Total, S 4.5(L) 6.3 - 7.9 g/dL 03/13/2024 5:31 AM CDT DTL Blood (Blood, Venous) 03/13/2024 4:35 AM CDT 03/13/2024 5:08 AM CDT Neel Hernandez APRNN.P. LAB BLO OD ADD-ON [facility] [address] [place] [address], [facility] [address] [place] [address] * (ABNORMAL) Prothrombin Time (PT) (03/13/2024 4:35 AM CDT) Only the most recent of4 resultswithin the time period is included. Prothrombin Time, P 15.0(H) 9.4 - 12.5 sec 03/13/2024 5:10 AM CDT DTL INR 1.4 0.9 - 1.1 03/13/2024 5:10 AM CDT DTL Comment: ----ADDITIONAL INFORMATION---- Standard intensity warfarin therapeutic range: 2.0 to 3.0 ?? High intensity warfarin therapeutic range: 2.5 to 3.5 Blood (Blood, Venous) 03/13/2024 4:35 AM CDT 03/13/2024 4:52 AM CDT Lauren Kennedy M.D. LAB BLOOD ADD-ON Performing Organization Address [facility]/ZIP Co de Phone Number [address] [place] [address] * Phosphorus Inorganic (03/13/2024 4:35 AM CDT) Only the most recent of9 resultswithin the time period is included. Pathologist [facility] Phosphorus (Inorganic), S 3.5 2.5 - 4.5 mg/dL 03/13/2024 5:31 AM CDT DT Blood (Blood, Venous) 03/13/2024 4:35 AM CDT 03/13/2024 5:08 AM CDT Tiffanie Cagle APRN, C.N.P. LAB BLO OD ADD-ON Performing Organization Address City/[facility]/[place] [address] * Magnesium (03/13/2024 4:35 AM CDT) Only the most recent of9 resultswithin the time period is included. Magnesium, S 1.9 1.7 - 2.3 mg/dL 03/13/2024 5:31 AM CDT DTL Blood (Blood, Venous) 03/13/2024 4:35 AM CDT 03/13/2024 5:08 AM CDT Tiffanie Cagle APRN, C.N.P. LAB BLO OD ADD-ON [facility] [address] [place] [address], [facility] [address] [place] [address] * (ABNORMAL) Basic Metabolic Panel (03/13/2024 4:35 AM CDT) Only the most recent of22 resultswithin the time period is included. Pathologist [facility] Potassium, S 3.8 3.6 - 5.2 mmol/L 03/13/2024 5:31 AM CDT DTL Sodium, S 141 135 - 145 mmol/L 03/13/2024 5:31 AM CDT DTL Chloride, S 106 98 - 107 mmol/L 03/13/2024 5:31 AM CDT DTL Bicarbonate, S 25 22 - 29 mmol/L 03/13/2024 5:31 AM CDT DTL Anion Gap 10 7 - 15 03/13/2024 5:31 AM CDT DTL BUN (Blood Urea Nitrogen), S 16 8 - 24 mg/dL 03/13/2024 5:31 AM CDT DTL Creatinine 0.32(L) 0.74 - 1.35 mg/dL 03/13/2024 5:31 AM CDT DTL Estimated GFR (eGFR) >90 >=60 mL/min/BSA 03/13/2024 5:31 AM CDT DTL Comment: Estimated GFR calculated using the 2020 CKD_EPI creatinine equation. Calcium, Total, S 8.1(L) 8.6 - 10.0 mg/dL 03/13/2024 5:31 AM CDT DTL Glucose, S 100 70 - 140 mg/dL 03/13/2024 5:31 AM CDT DTL Blood (Blood, Venous) 03/13/2024 4:35 AM CDT 03/13/2024 5:08 AM CDT Neel Hernandez APRNNMayPMay LAB BLO OD ADD-ON Performing Organization Address City/[facility]/ZIP Co de Phone Number [facility] [address] [place] [address], [facility] DTL [facility] [address] [place] [address] * (ABNORMAL) CBC without Differential (03/13/2024 4:34 AM CDT) Only the most recent of24 resultswithin the time period is included. Hemoglobin 8.3(L) 13.2 - 16.6 g/dL 03/13/2024 4:59 AM CDT DTL Hematocrit 24.8(L) 38.3 - 48.6 % 03/13/2024 4:59 AM CDT DTL Erythrocytes 2.67(L) 4.35 - 5.65 x10(12)/L 03/13/2024 4:59 AM CDT DTL MCV 92.9 78.2 - 97.9 fL 03/13/2024 4:59 AM CDT DTL RBC Distrib Width 16.8(H) 11.8 - 14.5 % 03/13/2024 4:59 AM CDT DTL Platelet Count 247 135 - 317 x10(9)/L 03/13/2024 4:59 AM CDT DTL Leukocytes 7.3 3.4 - 9.6 x10(9)/L 03/13/2024 4:59 AM CDT DTL Blood (Blood, Venous) 03/13/2024 4:34 AM CDT 03/13/2024 4:52 AM CDT Neel Hernandez APRNN.P. LAB BLO OD ADD-ON Performing Organization Address [facility] Co de Phone Number [facility] [address] [place] [address], [facility] DTL [facility] [address] [place] [address] * Calcium, Ionized (03/13/2024 4:34 AM CDT) Only the most recent of9 resultswithin the time period is included. Calcium, Ionized, S 4.81 4.57 - 5.43 mg/dL 03/13/2024 5:19 AM CDT DTL Comment: ----ADDITIONAL INFORMATION---- This test has been modified from the assembler mechanical ordnance's instructions. Its performance characteristics were determined by [facility] in a manner consistent with CLIA requirements. This test has not been cleared or approved by the U.S. Food and Drug Administration. pH for Ionized Calcium 7.47 7.35 - 7.48 03/13/2024 5:19 AM CDT DTL Blood (Blood, Venous) 03/13/2024 4:34 AM CDT 03/13/2024 5:07 AM CDT Tiffanie Cagle APRN C.N.PMay LAB BLO OD NON ADD-ON [facility] [address] [place] [address], [facility] [address] [place] [address] * (ABNORMAL) Thromboelastograph, Kaolin, Blood (03/13/2024 4:31 AM CDT) Only the most recent of9 resultswithin the time period is included. R, Kaolin, TEG 18.2(H) 4.0 - 9.0 min 03/13/2024 6:26 AM CDT STMA K, Kaolin, TEG 5.6(H) 1.0 - 1.8 min 03/13/2024 6:26 AM CDT STMA Angle, Kaolin, TEG 35.3(L) 64.0 - 78.1 degrees 03/13/2024 6:26 AM CDT STMA MA, Kaolin, TEG 76.0(H) 57.1 - 72.6 mm 03/13/2024 6:26 AM CDT STMA Ly30, Kaolin, TEG 0.0 0.0 - 4.8 % 03/13/2024 6:26 AM CDT STMA Blood (Blood, Venous) 03/13/2024 4:31 AM CDT 03/13/2024 4:37 AM CDT Neel Esparza APRNNAlexandra. LAB BLOOD NON ADD-ON Performing Organization Address City/[facility] Co de Phone Number [facility] [address] STMA [facility] [address] [place] [address] * Cystatin C with Estimated GFR (03/13/2024 4:25 AM CDT) Only the most recent of7 resultswithin the time period is included. eGFR by Cystatin C 91 >60 mL/min/BSA 03/13/2024 9:53 AM CDT DTL Comment: Estimated GFR calculated [...] lower with the new assay. Cystatin C 0.93 0.63 - 1.03 mg/L 03/13/2024 9:53 AM CDT DTL Blood (Blood, Venous) 03/13/2024 4:25 AM CDT 03/13/2024 9:22 AM CDT Sonido Cruz M.D., Ph.D. LAB BLOOD ADD-ON Performing Organization Address City/[facility]/ZIP Co de Phone Number [facility] [address] [place] [address], [facility] DTL [facility] [address] [place] [address] * Cortisol (03/13/2024 4:25 AM CDT) Cortisol, Random, S 16 mcg/dL 03/13/2024 9:53 AM CDT DTL Comment: ----REFERENCE VALUE---- AM ([id number]): 4.8-20 PM ([id number]): 2.5-12 Blood 03/13/2024 4:25 AM CDT 03/13/2024 9:22 AM CDT Paul ParkinsonD., R.Ph., BCCCP LAB BLOOD ADD-ON [facility] [address] [place] [address], [facility] DTA[facility] [address] [place] [address] * Transfuse Pooled Cryoprecipitate:Other (Specify); altered TEG; 180 mL/hr (03/12/2024 11:28 PM CDT) Lauren Kennedy M.D. BLOOD TRANSFUSION ORDERABLES * Transfuse Fresh Frozen Plasma :Bleeding with altered coagulation; 180 mL/hr (03/12/2024 11:10 PM CDT) Only the most recent of9 resultswithin the time period is included. Lauren Kennedy M.D. BLOOD TRANSFUSION ORDERABLES * Transfuse Red Blood Cells : (03/12/2024 9:40 PM CDT) Only the most recent of6 resultswithin the time period is included. Greta Figueroa, B.Ch., B.A.O. B LOOD TRANSFUSION ORDERABLES * Type and Screen (with Reflex Antibody ID) (03/12/2024 6:39 PM CDT) Only the most recent of3 resultswithin the time period is included. ABORh O Pos Not applicable 03/12/2024 7:11 PM CDT STRM Antibody Screen Negative Negative 03/12/2024 7:22 PM CDT STRM Type & Screen Expiration 03/15/2024 23:59 03/12/2024 7:11 PM CDT STRM Testing Location [place] DEFAULT 03/12/2024 6:50 PM CDT STRM Blood (Blood, Venous) 03/12/2024 6:39 PM CDT 03/12/2024 6:50 PM CDT Greta Figueroa, Barron, B.A.O. L AB BLOOD BANK TEST ORDERABLES [facility] [address] [place] [address], [facility] [address] [place] [address] * DX Abdomen Portable Anterior Posterior 1 View (03/11/2024 6:12 PM CDT) Only the most recent of6 resultswithin the time period is included. Anatomical Region Laterality Modality Abdomen, Abdominal RST LOS, Abdominal ARZ LOS, Abdominal FLA LOS N/A Digital Radiography Impressions 03/11/2024 7:50 PM CDT Negative for postoperative purposes. Enteric tube with tip overlying the gastric body. Surgical vimal. Surgical drains. Percutaneous gastrostomy tube. Stoma appliance left abdomen. Narrative 03/11/2024 7:50 PM CDT EXAM: ??DX ABDOMEN PORTABLE ANTERIOR POSTERIOR 1 VIEW Procedure Note Syed Pickett M.D. - 03/11/2024 EXAM: DX ABDOMEN PORTABLE ANTERIOR POSTERIOR 1 VIEW IMPRESSION: Negative for postoperative purposes. Enteric tube with tip overlying thegastric body. Surgical vimal. Surgical drains. Percutaneous gastrostomytube. Stoma appliance left abdomen. Aleks Hinkle M.D. IMTayla DIAGNOSTIC RAVI GING PROCEDURES * Transfuse Platelets :Active bleed with anti-PLT therapies; 180 mL/hr; No Special Requirements (03/11/2024 3:34 PM CDT) Tiffanie Cagle APRN CMayNMayPMay BLOOD T RANSFUSION ORDERABLES * Triglycerides (03/11/2024 6:20 AM CDT) Triglycerides 75 mg/dL 03/11/2024 7:50 AM CDT DTL Comment: ----REFERENCE VALUE---- Normal: <150 mg/dL Borderline High: 150-199 mg/dL High: 200-499 mg/dL Very High: > or =500 mg/dL Fasting (8 HR or more) Unknown 03/11/2024 6:21 AM CDT DTL Blood (Blood, Venous) 03/11/2024 6:20 AM CDT 03/11/2024 7:30 AM CDT Rufus Meng LAB BLOOD ADD-O N Performing Organization Address City/[facility] Co de Phone Number [facility] [address] [place], [place] [id number] [place] [address] [facility] [address] [place] [address] * (ABNORMAL) Troponin T, 2 Hour with 6 Hour Reflex, 5th Gen (03/10/2024 8:25 PM CDT) Troponin T, 2 hr, 5th gen 16(H) <=15 ng/L 03/10/2024 8:44 PM CDT [facility] 2H Delta -2 ng/L 03/10/2024 8:44 PM CDT [facility] Comment:6 hour collection no t indicated. 2H Delta Interp Not Changing 03/10/2024 8:44 PM CDT [facility] Blood 03/10/2024 8:25 PM CDT 03/10/2024 8:29 PM CDT Xiao Wheeler APRN, C.N.P., D.N.P. LAB BLOOD TROPONIN [facility] [address] [place] [address], [facility] STMA [facility] [address] [place] [address] * (ABNORMAL) Troponin T, Baseline with 2 Hour/6 Hour Reflex Biomarker Panel (03/10/2024 6:12 PM CDT) Troponin T, Baseline, 5th gen 18(H) <=15 ng/L 03/10/2024 6:34 PM CDT [facility] Blood (Blood, Venous) 03/10/2024 6:12 PM CDT 03/10/2024 6:18 PM CDT Xiao Wheeler APRN, C.N.P., D.N.P. LAB BLOOD TROPONIN [facility] [address] [place] [address], [facility] [address] [place] [address] * ECG 12 Lead (03/10/2024 5:37 PM CDT) Only the most recent of2 resultswithin the time period is included. Ventricular Rate ECG/Min 70 BPM MUSE VT Interval 128 ms MUSE QRSD Interval 82 ms MUSE QT Interval 436 ms MUSE QTC Interval 470 ms MUSE P [place] -11 degrees MUSE R [place] 38 degrees MUSE T Wave [place] 18 degrees MUSE 03/10/2024 5:37 PM CDT 03/10/2024 5:41 PM CDT Impressions MUSE - 03/10/2024 5:41 PM CDT Normal sinus rhythm T wave abnormality, consider anterolateral ischemia Prolonged QT When compared with ECG of 27-Dec-2023 14:34, QT has lengthened T wave inversion less evident in Anterolateral leads Reviewed by CULLEN Thayer Narrative Procedure Note Glenn Parker M.D. - 03/10/2024 IMPRESSION: Normal sinus rhythm T wave abnormality, consider anterolateral ischemia Prolonged QT When compared with ECG of 27-Dec-2023 14:34, QT has lengthened T wave inversion less evident in Anterolateral leads Reviewed by CULLEN Thayer Xiao Wheeler APRN, C.N.P., D.N.P. ECG ORDERABLES MUSE NA * Sodium, B (03/10/2024 4:39 PM CDT) Only the most recent of2 resultswithin the time period is included. Sodium, B 141 135 - 145 mmol/L 03/10/2024 4:41 PM CDT [facility] Blood (Blood, Arterial Line) 03/10/2024 4:39 PM CDT 03/10/2024 4:39 PM CDT Renea Pelletier M.D. LAB BLOOD NON ADD-ON [facility] [address] [place] [address], [facility] [address] [place] [address] * (ABNORMAL) Potassium, Blood (03/10/2024 4:39 PM CDT) Only the most recent of2 resultswithin the time period is included. Potassium, B 3.1(L) 3.6 - 5.2 mmol/L 03/10/2024 4:42 PM CDT [facility] Blood (Blood, Arterial Line) 03/10/2024 4:39 PM CDT 03/10/2024 4:39 PM CDT Narrative Authorizing Provider Result Kelly Pelletier M.D. LAB BLOOD NON ADD-ON Performing Organization Address City/[facility] Co de Phone Number [facility] [address] [place] [address], [facility] [address] [place] [address] * Glucose, Whole Blood (03/10/2024 4:39 PM CDT) Only the most recent of2 resultswithin the time period is included. Glucose 119 70 - 140 mg/dL 03/10/2024 4:41 PM CDT [facility] Blood (Blood, Arterial Line) 03/10/2024 4:39 PM CDT 03/10/2024 4:39 PM CDT Narrative Authorizing Provider Result Kelly Pelletier M.D. LAB BLOOD ADD-ON Performing Organization Address City/[facility]/ZIP Co de Phone Number [facility] [address] [place], [place] [phone] [place] [address] [address] [place] [address] * (ABNORMAL) APTT (Activated Partial Thromboplastin Time) (03/10/2024 4:39 PM CDT) Activated Partial Thrombopl Time, P 40(H) 25 - 37 sec 03/10/2024 5:01 PM CDT [facility] Blood (Blood, Arterial Line) 03/10/2024 4:39 PM CDT 03/10/2024 4:39 PM CDT Renea Pelletier M.D. LAB BLOOD ADD-ON Performing Organization Address City/[facility]/ZIP Co de Phone Number [facility] [address] [place], [place] [phone] [place] [address] [address] [place] [address] * (ABNORMAL) Fibrinogen (03/10/2024 4:39 PM CDT) Pathologist [facility] Fibrinogen, P 457(H) 200 - 393 mg/dL 03/10/2024 4:59 PM CDT [facility] Blood (Blood, Arterial Line) 03/10/2024 4:39 PM CDT 03/10/2024 4:39 PM CDT Renea Pelletier M.D. LAB BLOOD ADD-ON Performing Organization Address City/[facility]/ZIP Co de Phone Number [facility] [address] [place], [place] [address] [address] [place] [address] * (ABNORMAL) Platelet Count (03/10/2024 4:39 PM CDT) Platelet Count 132(L) 135 - 317 x10(9)/L 03/10/2024 4:48 PM CDT [facility] Blood (Blood, Arterial Line) 03/10/2024 4:39 PM CDT 03/10/2024 4:39 PM CDT Renea Pelletier M.D. LAB BLOOD ADD-ON Performing Organization Address City/[facility]/ZIP Co de Phone Number [facility] [address] [place] [address], [place] STMA [facility] [address] [place] [address] * Abdomen-Trauma CC And Surgery Image Exam (03/10/2024 3:09 PM CDT) 03/10/2024 3:06 PM CDT Narrative IIMS - 03/10/2024 3:09 PM CDT This order has been created and auto-finalized to support the import of images acquired without order. The clinical documentation to support these images can be found on the encounter that produced images. Provider Not In System IMG NON RAD IMAGI NG PROCEDURES Performing Organization Address [facility] Co de Phone Number IIMS NA * VT ARTL CATH/CNULA MONITOR PERC, LDA ANE ARTERIAL LINE INSERTION (03/10/2024 2:30 PM CDT) Narrative Ayad Georges, TUBE BENDER, CARE SERVICES MANAGER, DNAP - 03/10/2024 2:30 PM CDT Anastasiya Lee R.N. ? 03/10/2024 ??2:31 PM Invasive Catheter Date/Time: 03/10/2024 2:30 PM Performed by: Anastasiya Lee R.N. Authorized by: Renea Pelletier M.D. ?? Location: OR PROCEDURE DETAILS: Line type: arterial ?? Laterality: left Location: radial Location details: new site ? Age group: adult Catheter diameter: 20 Ga Technique: palpation ?? Monitored: yes ?? Number of attempts: 1 [...] confirmed in a procedural pause. PRE-PROCEDURE DETAILS: Appropriate hand hygiene, gown, cap, mask, protective eyewear, sterile gloves, skin preparation, sterile drape, and strict aseptic technique were utilized as applicable for the procedure.: yes ?? Skin preparation: chlorhexidine ?? SEDATION / ANESTHESIA Anesthesia method: anesthesia POST-PROCEDURE DETAILS: Procedure completed successfully: yes ?? Line secured: secured with sutureless device Chlorhexidine disc around insertion site and under catheter with slight turn: yes ?? Notable Events - arterial: none Renea Pelletier M.D. PROCEDURE/MINOR SURG ICAL ORDERABLES * CT Abdomen Pelvis with IV Contrast (03/10/2024 10:13 AM CDT) Only the most recent of3 resultswithin the time period is included. Anatomical Region Laterality Modality Abdomen, Pelvis, Abdominal R ST LOS, Abdominal ARZ LOS, Abdominal FLA LOS N/A Computed Tomograp hy, Computed Tomography 03/10/2024 10:0 9 AM CDT Impressions 03/10/2024 11:08 AM CDT 1. New large volume pneumoperitoneum, likely secondary to gastric perforation at the site of the percutaneous gastrojejunostomy balloon. 2. Slightly worsened functional ileus. 3. Persistent consolidative/groundglass opacities in the bibasilar lower lungs. 4. Decreased inflammation of the distal sigmoid colon and rectum. Narrative 03/10/2024 11:08 AM CDT EXAM: ??CT ABDOMEN PELVIS WITH IV CONTRAST COMPARISON: ??CT abdomen pelvis 03/07/2024 FINDINGS: ?? New large volume pneumoperitoneum likely secondary to perforated hollow viscus. Multiple locules of gas adjacent to the percutaneous gastrojejunostomy balloon and gastric wall thinning/attenuation involving the gastric body near the GJ balloon are highly suspicious for site of perforation. Interval placement of enteric tube with tip adjacent to the gastrojejunostomy balloon. Slightly increased diffuse small bowel dilation compared to 03/07/2024 with multiple areas of fecalization. No discrete transition point identified. Findings are compatible with a functional ileus. Normal caliber colon. Improved mucosal hyperenhancement in the distal sigmoid colon and rectum. Increased small volume free fluid in the right paracolic gutter. Mild ileocolic lymphadenopathy, likely reactive. Interval increased distention of the gallbladder. Liver, spleen, pancreas, and adrenal glands are negative. Bilateral renal cysts. Tiny nonobstructing left renal stone. Bilateral renal cysts. Decompressed urinary bladder with Gama catheter in good position. Similar bibasilar regions of consolidative and groundglass opacities. Partially visualized CVC with tip in the SVC/RA junction. Findings were discussed with Tam JEWELL (#[id number]) at 03/10/2024 10:37 AM. Procedure Note Estelle Katz M.D. - 03/10/2024 EXAM: CT ABDOMEN PELVIS WITH IV CONTRAST COMPARISON: CT abdomen pelvis 03/07/2024 FINDINGS: New large volume pneumoperitoneum likely secondary to perforated hollowviscus. Multiple locules of gas adjacent to the percutaneousgastrojejunostomy balloon and gastric wall thinning/attenuation involvingthe gastric body near the GJ balloon are highly suspicious for site of perforation. Interval placement of enteric tubewith tip adjacent to the gastrojejunostomy balloon. Slightly increased diffuse small bowel dilation compared to 03/07/2024 withmultiple areas of fecalization. No discrete transition point identified.Findings are compatible with a functional ileus. Normal caliber colon.Improved mucosal hyperenhancement in the distal sigmoid colon and rectum. Increased small volume free fluid in the right paracolic gutter. Mildileocolic lymphadenopathy, likely reactive. Interval increased distention of the gallbladder. Liver, spleen, pancreas,and adrenal glands are negative. Bilateral renal cysts. Tinynonobstructing left renal stone. Bilateral renal cysts. Decompressedurinary bladder with Gama catheter in good position. Similar bibasilar regions of consolidative and groundglass opacities.Partially visualized CVC with tip in the SVC/RA junction. Findings were discussed with Tam JEWELL (#[id number]) at 0:37 AM. IMPRESSION: 1. New large volume pneumoperitoneum, likely secondary to gastricperforation at the site of the percutaneous gastrojejunostomy balloon. 2. Slightly worsened functional ileus. 3. Persistent consolidative/groundglass opacities in the bibasilar lowerlungs. 4. Decreased inflammation of the distal sigmoid colon and rectum. Basil S Miranda TUBE BENDER, C.N.P. IMG CT [place] OCEDURES * (ABNORMAL) Blood Gas without Coox, Venous (03/09/2024 12:50 PM CDT) Only the most recent of6 resultswithin the time period is included. pO2, Venous, B 40 Not applicable mm Hg 03/09/2024 12:56 PM CDT [facility] pCO2, Venous, B 54(H) 41 - 51 mm Hg 03/09/2024 12:56 PM CDT [facility] pH, Venous, B 7.39 7.32 - 7.43 pH 024 12:56 PM CDT [facility] Base Excess, Venous, B 8 Not applicable mmol/L 03/09/2024 12:56 PM CDT [facility] HCO3, Venous, B 33 Not applicable mmol/L 03/09/2024 12:56 PM CDT [facility] Sample Site, Venous, B PICC 03/09/2024 12:53 PM CDT [facility] Blood (Blood, Venous) 03/09/2024 12:50 PM CDT 03/09/2024 12:53 PM CDT Rashad Sal APRN, C.N.P., M.S.N. LA B BLOOD NON ADD-ON [facility] [address] [place] [address], [facility] [address] [place] [address] * (ABNORMAL) Blood Gas without Coox, Arterial (03/08/2024 12:19 PM CDT) Only the most recent of6 resultswithin the time period is included. pO2 71(L) 83 - 108 mm Hg 03/08/2024 12:24 PM CDT [facility] pCO2 51(H) 35 - 48 mm Hg 03/08/2024 12:24 PM CDT [facility] pH 7.40 7.35 - 7.45 pH 03/08/2024 12:24 PM CDT [facility] Base Excess 7(H) -2 - 3 mmol/L 03/08/2024 12:24 PM CDT [facility] HCO3 32(H) 22 - 26 mmol/L 03/08/2024 12:24 PM CDT [facility] Arterial Sample Site Art Line 03/08/2024 12:22 PM CDT [facility] Comment:Wilfredo's test not don e. Blood (Blood, Arterial Line) 03/08/2024 12:19 PM CDT 03/08/2024 12:22 PM CDT Girish Jennings APRN.N.P., M.S.N. LA B BLOOD NON ADD-ON [facility] [address] [place] [address] * Potassium (03/07/2024 11:13 AM CDT) Pathologist [facility] Potassium, P 5.2 3.6 - 5.2 mmol/L 03/07/2024 11:28 AM CDT [facility] Blood (Blood, Venous) 03/07/2024 11:13 AM CDT 03/07/2024 11:17 AM CDT Girish Jennings APRN.N.P., M.S.N. LA B BLOOD ADD-ON [facility] [address] [place] [address] * MR Brain without IV Contrast (03/06/2024 10:54 AM CDT) Anatomical Region Laterality Modality Head, Brain, Neuroradiology RST LOS, Neuroradiology ARZ LOS, Neuroradiology FLA LOS N/A Magnetic Resonance Impressions 03/06/2024 12:13 PM CDT 1. No acute intracranial abnormality. 2. Small 5 mm presumed meningioma about the left frontal convexity. 3. Stable appearance of presumed small cavernous hemangioma within the right cerebellar hemisphere. 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 4. Global supratentorial and cerebellar volume loss, advanced for patient's age and progressed since 2013. Narrative 03/06/2024 12:13 PM CDT EXAM: MR BRAIN WITHOUT IV CONTRAST COMPARISON: CT head without contrast 03/18/2023, MRI brain 12/01/2013. FINDINGS: No evidence of acute intracranial hemorrhage, acute infarct, mass effect, or midline shift. Stable focal area of susceptibility artifact within the right cerebellar hemisphere, correlating with presumed small cavernous malformation (series 6 image 28). Additional stable small focus of susceptibility artifact near the left frontal convexity (series 6 image 81), consistent with a remote microhemorrhage. Additional focus of increased susceptibility is seen within the right temporal lobe as seen on images 46 and 47 of series 6, also consistent with focus of microhemorrhage. Additional punctate focus of increased susceptibility is seen along the left tentorial leaflet (images 36 through 38 series 6) which is consistent with a punctate calcification as seen on the prior CT of March 18, 2023. Additional punctate focus of increased susceptibility is seen along the inferior aspect of the medial left cerebellar hemisphere (image 22 series 6, likely below the resolution of the previous T2*GRE sequence on the prior MRI from 2013). Small focus of hemosiderin deposition is seen along the left middle frontal gyrus (image 68 series 6 associated with small focus of encephalomalacia and gliosis likely related to remote prior small cortical infarct. No additional new hemosiderin deposition. 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 Particularly prominent diffuse cerebellar volume loss is seen. Small enhancing extra-axial lesion measuring 5 mm (series 801 image 84), overlying the left lateral frontal convexity, likely representing a small meningioma. Normal ventricular caliber. No extra-axial fluid collections otherwise. Paranasal sinuses are clear aside from bilateral ethmoid sinus mucosal thickening without fluid levels. Trace left mastoid effusion. Normal flow voids within the visualized intracranial vessels. Procedure Note Marc, Trent[place] J, M.D. - 03/06/2024 EXAM: MR BRAIN WITHOUT IV CONTRAST COMPARISON: CT head without contrast 03/18/2023, MRI brain 12/01/2013. FINDINGS: No evidence of acute intracranial hemorrhage, acute infarct, mass effect,or midline shift. Stable focal area of susceptibility artifact within theright cerebellar hemisphere, correlating with presumed small cavernousmalformation (series 6 image 28). Additional stable small focus of susceptibility artifact near the leftfrontal convexity (series 6 image 81), consistent with a remotemicrohemorrhage. Additional focus of increased susceptibility is seenwithin the right temporal lobe as seen on images 46 and 47 of series 6, also consistent with focus of microhemorrhage.Additional punctate focus of increased susceptibility is seen along theleft tentorial leaflet (images 36 through 38 series 6) which is consistentwith a punctate calcification as seen on the prior CT of March 18, 2023. Additional punctate focus of increasedsusceptibility is seen along the inferior aspect of the medial leftcerebellar hemisphere (image 22 series 6, likely below the resolution ofthe previous T2*GRE sequence on the prior MRI from 2013). Small focus of hemosiderin deposition is seen alongthe left middle frontal gyrus (image 68 series 6 associated with smallfocus of encephalomalacia and gliosis likely related to remote prior smallcortical infarct. No additional new hemosiderin deposition. Global parenchymal volume loss is seen with associated prominence of thesubarachnoid spaces, more so overlying the left cerebral hemisphere,advanced for patient's age and possibly related to the patient's knownLennox-Gastaut syndrome, chronic medically refractory epilepsy and associated long-term antiepileptic drugtherapy. Particularly prominent diffuse cerebellar volume loss is seen.Small enhancing extra-axial lesion measuring 5 mm (series 801 image 84),overlying the left lateral frontal convexity, likely representing a small meningioma. Normal ventricularcaliber. No extra-axial fluid collections otherwise. Paranasal sinuses are clear aside from bilateral ethmoid sinus mucosalthickening without fluid levels. Trace left mastoid effusion. Normal flowvoids within the visualized intracranial vessels. IMPRESSION: 1. No acute intracranial abnormality. 2. Small 5 mm presumed meningioma about the left frontal convexity. 3. Stable appearance of presumed small cavernous hemangioma within theright cerebellar hemisphere. 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 4. Global supratentorial and cerebellar volume loss, advanced forpatient's age and progressed since 2013. Neel Mccann APRNN.P., M.S.N. IMG MRI PROCEDURES * (ABNORMAL) Clobazam and Metabolite (03/06/2024 8:45 AM CDT) Only the most recent of3 resultswithin the time period is included. Clobazam 221.0 30 - 300 ng/mL 03/07/2024 1:39 AM CDT [facility] N-desmethylclobazam 5420.0(H) 300 - 3000 ng/mL 03/07/2024 1:39 AM CDT [facility] Comment: ----ADDITIONAL INFORMATION---- This test was developed and its performance characteristics determined by [facility] in a manner consistent with CLIA requirements. This test has not been cleared or approved by the U.S. Food and Drug Administration. Blood (Blood, Venous) 03/06/2024 8:45 AM CDT 03/06/2024 1:40 PM CDT Neel Velasco APRNN.P. LAB BLOOD ADD-ON [facility] [address] [place] [address] [facility] [address] [place] [address] [place] [address] * Rufinamide, S (03/06/2024 8:45 AM CDT) Only the most recent of3 resultswithin the time period is included. Rufinamide, S 14.5 5.0 - 30.0 mcg/mL 03/09/2024 2:03 PM CDT [facility] Comment: ----ADDITIONAL INFORMATION---- This test was developed and its performance characteristics determined by [facility] in a manner consistent with CLIA requirements. This test has not been cleared or approved by the U.S. Food and Drug Administration. Blood (Blood, Venous) 03/06/2024 8:45 AM CDT 03/06/2024 1:43 PM CDT Basil Miranda APRN C.N.P. LAB BLOOD NON ADD-ON Performing Organization Address [facility] Co de Phone Number [facility] [address] [place] [address] [facility] [address] [place] [address] [place] [address] * (ABNORMAL) Levetiracetam Level (03/06/2024 8:45 AM CDT) Only the most recent of3 resultswithin the time period is included. Levetiracetam, S 86.7(H) 10.0 - 40.0 mcg/mL 03/06/2024 3:05 PM CDT [facility] Comment: ----ADDITIONAL INFORMATION---- This test was developed and its performance characteristics determined by [facility] in a manner consistent with CLIA requirements. This test has not been cleared or approved by the U.S. Food and Drug Administration. Blood (Blood, Venous) 03/06/2024 8:45 AM CDT 03/06/2024 1:11 PM CDT Basil Miranda APRN C.N.P. LAB BLOOD NON ADD-ON Performing Organization Address [facility] de Phone Number [facility] [address] [place] [address] [facility] [address] [place] [address] [place] [id number] * Lamotrigine Level (03/06/2024 8:45 AM CDT) Only the most recent of3 resultswithin the time period is included. Lamotrigine, S 12.9 3.0 - 15.0 mcg/mL 03/06/2024 2:44 PM CDT [facility] Comment: ----ADDITIONAL INFORMATION---- This test was developed and its performance characteristics determined by [facility] in a manner consistent with CLIA requirements. This test has not been cleared or approved by the U.S. Food and Drug Administration. Blood (Blood, Venous) 03/06/2024 8:45 AM CDT 03/06/2024 1:11 PM CDT Basil Trinidad Ruben BUSTOS CMayNLuis Fernando LAB BLOOD NON ADD-ON [facility] [address] [place] [address] [facility] [facility] [address] [place] [address] [place] [address] * EEG (03/06/2024 7:26 AM CDT) Narrative MMODAL - 03/06/2024 11:04 AM CDT Images from the original result were not included. Clinical Interpretation: The short-term video EEG ,recorded in a intubated patient is who is off sedation, is abnormal due to: Severe degree of diffuse slowing and frequent episodic low amplitude events, indicating severe, nonspecific disturbance in global cerebral function. Frequent epileptiform discharges seen to arise from the midline occipital head region but with a broad posterior predominant field of distribution, indicating increased risk for focal seizures to arise out of this region. No seizures were recorded. Intermittent excess beta activity which could be due to the effect of medications. Classification: SPECIAL STUDY - Short-term video EEG. Dysrhythmia grade 3, ??midline occipital sharp waves/spike waves Delta grade 1, generalized EKG channel. Report: ?The short-term EEG ??is recorded in the patient who is intubated and off sedation. ??There is no posterior dominant rhythm seen. The EEG is not reactive to stimulation. There is diffuse persistent slowing consisting of 1-2 hertz polymorphic delta activity with admixed 4-6 hz theta. There are frequent episodic low amplitude events lasting for 5-10 seconds at a time. ??Intermittent diffuse beta is occasionally seen. There are frequent high amplitude sharp waves/spike waves seen to arise from the midline occipital head region (maximal negativity at OZ or Pz) but with a broad bihemispheric field of distribution involving the posterior head regions. These discharges occur in periodic runs at 1 hertz, lasting 2-3 seconds at a time. The EKG channel shows sinus tachycardia Slowing, frequent episodic low amplitude events. Pz spike and wave discharges with a broad post predominant field of Wing Rubin M.D. NEUROLOGY ORDERABLES Performing Organization Address [facility] Co de Phone Number MMODAL NA * (ABNORMAL) Felbamate (Felbatol) Level (03/06/2024 6:01 AM CDT) Only the most recent of3 resultswithin the time period is included. Felbamate (Felbatol), S 181.6(H) 30.0 - 80.0 mcg/mL 03/06/2024 3:36 PM CDT [facility] Comment: ----ADDITIONAL INFORMATION---- This test was developed and its performance characteristics determined by [facility] in a manner consistent with CLIA requirements. This test has not been cleared or approved by the U.S. Food and Drug Administration. Blood (Blood, Venous) 03/06/2024 6:01 AM CDT 03/06/2024 9:28 AM CDT Basil Miranda APRN, C.N.P. LAB BLOOD NON ADD-ON Performing Organization Address [facility] Co de Phone Number [facility] [address] [place] [address] [facility] [address] [place] [address] [place] [address] * (ABNORMAL) Albumin (03/06/2024 5:56 AM CDT) Pathologist [facility] Albumin, S 2.6(L) 3.5 - 5.0 g/dL 03/06/2024 5:24 PM CDT DTL Blood (Blood, Venous) 03/06/2024 5:56 AM CDT 03/06/2024 5:00 PM CDT Amrita Liz APRN, C.N.P., D.N.P. LAB BLOOD ADD-ON Performing Organization Address City/[facility] Co de Phone Number [facility] [address] [place] [address] * DX Chest Portable Post PICC Placement [...] PICC tip near the superior cavoatrial junction. Neel Donald APRNNAlexandra., M.S.N. IMG DIAGNOSTIC IMAGING PROCEDURES * Ammonia (03/02/2024 12:50 PM CDT) Ammonia, P 27 <=30 mcmol/L 03/02/2024 1:36 PM CDT DTL Blood (Blood, Arterial) 03/02/2024 12:50 PM CDT 03/02/2024 1:06 PM CDT Neel Donald APRNN.P., M.S.N. LAB BLOOD NON ADD-ON [facility] [address] [place] [address], [facility] [address] [place] [address] * Place peripherally inserted central catheter (PICC) [...] PROCE DURE/MINOR SURGICAL ORDERABLES MMODAL NA * CT Head without IV Contrast (03/02/2024 [...] abnormality is evident. Tam Huang P.A.-C., M.S. VENU Stout T PROCEDURES * (ABNORMAL) Comprehensive Metabolic Panel [...] Gordillo APRN, C.N.P., M.S.N. LAB BLOOD ADD-ON [facility] [address] [place] [address], [place] [facility] [address] [place] [address] * Cell Count and Differential, Bronchoalveolar Lavage (03/02/2024 2:38 AM CDT) Fluid Type BAL DEFAULT 03/02/2024 3:03 AM CDT DH Gross appearance Clear 03/02/20 24 3:03 AM CDT DHPM Total Nucleated Cells 10.8 x10(6) 03/02/2024 3:03 AM CDT [facility] Comment: ----REFERENCE VALUE---- The reference range and other method performance specifications have not been established for this body fluid. The test result must be integrated into the clinical context for interpretation. ----ADDITIONAL INFORMATION---- This test has been modified from the assembler mechanical ordnance's instructions. Its performance characteristics were determined by [facility] in a manner consistent with CLIA requirements. This test has not been cleared or approved by the U.S. Food and Drug Administration. Volume Recovered 25 mL 03/02/20 24 3:03 AM CDT [facility] Alveolar Macrophage 15 % 03/02 4:08 AM CDT [facility] Comment: ----REFERENCE VALUE---- The reference range and other method performance specifications have not been established for this body fluid. The test result must be integrated into the clinical context for interpretation. Lymphocytes 3 % 03/02/2024 4:08 AM CDT [facility] Comment: ----REFERENCE VALUE---- The reference range and other method performance specifications have not been established for this body fluid. The test result must be integrated into the clinical context for interpretation. Neutrophils 76 % 03/02/2024 4:08 AM CDT [facility] Comment: ----REFERENCE VALUE---- The reference range and other method performance specifications have not been established for this body fluid. The test result must be integrated into the clinical context for interpretation. Other Cells 6 % 03/02/2024 4:08 AM CDT [facility] Comment: ----REFERENCE VALUE---- The reference range and other method performance specifications have not been established for this body fluid. The test result must be integrated into the clinical context for interpretation. Comment See Comment 03/02/2024 10:55 AM CDT [facility] Comment:Others are lining ce lls.Bacteria present. Fluid 03/02/2024 2:38 AM CDT 03/02/2024 2:38 AM CDT Ivory Paredes P.A.-C. MMaySMay LAB BOD Y FLUIDS AND STOOLS ORDERABLES Performing Organization Address [facility] de Phone Number [facility] [address] [place] [address] * Bacterial Culture, Aerobic + Susceptibility, Respiratory (03/02/2024 12:44 AM CDT) Only the most recent of2 resultswithin the time period is included. [facility] Bacterial Culture, Aerobic, Resp No growth after 2 days of incubation. 03/04/2024 10:44 AM CDT [facility] Lavage (Bronchoalveolar Lavage) 03/02/2024 12:44 AM CDT 03/02/2024 1:36 AM CDT Comment:Specimen Source Site : Lavage Ivory Paredes P.A.-C. M.S. LAB FARIHA ROBIOLOGY - GENERAL ORDERABLES Performing Organization Address [facility] de Phone Number [facility] [address] [place] [address], [facility] [address] [place] [address] * Streptococcus pneumoniae Antigen, Urine (03/02/2024 12:44 AM CDT) [facility] Streptococcus pneumoniae Ag, U Negative Negative 03/02/2024 2:42 PM CDT [facility] Comment: Negative for pneumococcal pneumonia, suggesting no [...] 12:44 AM CDT 03/02/2024 7:25 AM CDT Carmela Baeza P.A.-C.SMay LAB [facility] ROBIOLOGY - GENERAL ORDERABLES Performing Organization Address City/[facility]/ZIP Co de Phone Number [facility] [address] [place] [address] [facility] [address] [place] [address] [place] [address] * Legionella Antigen, Urine (03/02/2024 12:44 AM CDT) [facility] Legionella Ag, U Negative Negative 03/02/20 2:20 PM CDT [facility] Comment: Negative for L. pneumophila serogroup 1 [...] 7:25 AM CDT Ivory Paredes P.A.-C. MMaySMay LAB [facility] ROBIOLOGY - GENERAL ORDERABLES Performing Organization Address City/[facility] Co de Phone Number [facility] [address] [place] [address] [facility] [address] [place] [address] [place] [address] * Bacteria / Christopher Culture, Blood #1 (03/01/2024 11:08 PM CDT) Only the most recent of4 resultswithin the time period is included. [facility] Bacteria/Isabell da Culture, Blood No growth after 5 days of incubation. 03/07/2024 1:02 AM CDT DTL Blood (Blood, Peripheral Draw) 03/01/2024 11:08 PM CDT 03/01/2024 11:26 PM CDT Comment:Specimen Source Site : Blood Ivory Paredes P.A.-C., M.S. LAB FARIHA ROBIOLOGY - GENERAL ORDERABLES [facility] [address] [place] [address], [facility] [address] [place] [address] * Invasive Line (03/01/2024 10:55 PM CDT) Narrative Greogrio Comer R.R.T., L.R.T. - 03/01/2024 10:55 PM CDT Gregorio Comer R.R.T., L.R.T. ? 03/01/2024 10:55 PM Invasive Line Performed by: Gregorio Comer R.R.T., L.R.T. Authorized by: Wes Person M.B.B.SMay ?? Location: ICU/PCU PROCEDURE DETAILS: Line type: [...] Wes Meng PROCEDURE/MINOR RANDOLPH RGICAL ORDERABLES * VT BRONCHOSCOPY W ALVEOLAR LAVAGE (03/01/2024 10:30 PM CDT) Narrative Tam Brower M.D. - 03/01/2024 10:30 PM CDT Ivory Paredes P.A.-C. MMaySMay ? 03/01/2024 10:41 PM Bronchoscopy (Adult) Performed by: Ivory Paredes P.A.-C. MMaySMay Authorized [...] PHYLICIA participated or performed the procedure. The clinical program consultant participated in or was aware of the procedure. Ivory Paredes P.A.-C., M.S. PROCEDU RE/MINOR SURGICAL ORDERABLES * VT INTUB W ETT, LDA ANE ENDOTRACHEAL AIRWAY (03/01/2024 10:00 PM CDT) Narrative Tam Brower M.D. - 03/01/2024 10:00 PM CDT Ivory Paredes P.A.-C. MEfe ? 03/01/2024 10:37 PM Intubation Performed by: Ivory Paredes P.A.-C. MEfe Authorized by: Ivory Paredes P.A.-C. MEfe ?? Care team members present 1. Tam Brower M.D. Patient location during procedure: ICU / PCU PROCEDURE DETAILS: Mask difficulty assessment: easy mask Final airway type: video laryngoscope Laryngeal Manipulation: no ?? Final best view of glottic structures - Cormack/Lehane Score: grade 2A ETT location: oral VL device: glide scope York scope blade size: 4 Tube size: 7.5 [...] PHYLICIA participated or performed the procedure. The clinical program consultant participated in or was aware of the procedure. Ivory Paredes P.A.-C. M.S. ANESTHE BANDAR ORDERABLES * (ABNORMAL) pH (03/01/2024 8:59 PM CDT) Pathologist [facility] pH 7.29(L) 7.35 - 7.45 pH 03/01/2024 9:10 PM CDT [facility] Blood 03/01/2024 8:59 PM CDT 03/01/2024 9:07 PM CDT Ivory Paredes P.A.-C., M.S. LAB HIS TORICAL ORDERS [address] [address], [place] [address] * (TTE) 2D ECHO DOPPLER COLOR AND CONTRAST (03/01/2024 12:44 PM CDT) Pathologist [facility] Ejection Fraction 66 MC CV EIMS Mid-Ascending [...] Comment:Specimen Source Site : Sputum Erasmo Lloyd APRN C.N.P., D.N.P. LAB MICROBIOLOGY - GENERAL ORDERABLES [facility] [place] [address], [facility] [address] [place] [address] * CT Chest Angiogram and Pulmonary Arteries [...] or aspirationpneumonia. Erasmo Lloyd APRN, C.N.P., D.N.P. IMG CT PROCEDURES * Respiratory Panel, PCR, Nasopharyngeal (02/29/2024 9:12 AM CDT) Specimen Source NASOPHARYNGEAL SWAB 02/29/2024 11:04 AM CDT DTL Adenovirus Undetected Undetected 02/29/2024 11:04 AM CDT DTL Coronavirus 229E Undetected Undetected 02/29/20 11:04 AM CDT DTL Coronavirus HKU1 Undetected Undetected 02/29/20 11:04 AM CDT DTL Coronavirus NL63 Undetected Undetected 02/29/20 24 11:04 AM CDT DTL Coronavirus OC43 Undetected [...] using the FDA-Cleared FilmArray Respiratory Panel 2.1 (Quantason). Swab (Nasopharynx) 02/29/2024 9:12 AM CDT 02/29/2024 9:12 AM CDT Erasmo Lloyd TUBE BENDER, C.N.P., D.N.P. LAB MICROBIOLOGY - GENERAL ORDERABLES [facility] [address] [place] [address], [facility] DT [address] [facility] [address] [place] [address] * Interpretation of Outside US Vascular (02/29/2024 6:05 AM CDT) Anatomical Region Laterality Modality Ultrasound RST LOS, Ultrasou nd ARZ LOS, Ultrasound FLA LOS, Procedural, Other, Vascular N/A Ultrasound Impressions 02/29/2024 10:22 AM CDT Positive for acute DVT in the mid to lower femoral vein through popliteal vein. Result discussed with BETO Nguyen ([id number]) by Dr. Schulte on 02/29/2024 at 0950 hours. Narrative 02/29/2024 10:22 AM CDT EXAM: ??INTERPRETATION OF OUTSIDE US VASCULAR. Bilateral lower extremity venous ultrasound performed on 02/28/2024 at outside facility. Interpretation provided without the benefit of real-time scanning or discussion with the knobber. COMPARISON: ??None FINDINGS: ?? RIGHT: The common [...] benefit of real-time scanning ordiscussion with the knobber. COMPARISON: None FINDINGS: RIGHT: The common femoral, [...] through poplitealvein. Result discussed with BETO Nguyen ([id number]) by Dr. Schulte on02/29/2024 at 0950 hours. Erasmo Lloyd APRN, C.N.P., D.N.P. IMG US PROCEDURES * US venous [...] Provider Not In System IMG US PROCEDURES Performing Organization Address City/State/[facility] Co de Phone Number IIMS NA * XR CHEST 1V PORTABLE-Outside [...] DIAGNOSTIC IM AGING PROCEDURES Performing Organization Address City/[facility] Co de Phone Number IIMS NA * Reticulocytes (02/02/2024 11:03 AM CDT) Pathologist [facility] Reticulocytes, B 1.76 0.60 - 2.71 % 02/02/2024 3:18 PM CDT [facility] Absolute Reticulocyte 63.7 30.4 - 110.9 x10(9)/L 02/02/2024 3:18 PM CDT [facility] Blood (Blood, Venous) 02/02/2024 11:03 AM CDT 02/02/2024 3:00 PM CDT Jose Martin Eaton M.D. LAB BLOOD ADD-ON Performing Organization Address [facility] Co de Phone Number [facility] [address] [place] [address], [facility] AUST [facility] [address] [place] [address] * (ABNORMAL) CBC with Differential, Blood (02/02/2024 [...] M.D. LAB BLOOD ADD-ON Performing Organization Address City/State/[facility] Co de Phone Number [facility] [address] [facility] [place] [address], [facility] FB60 [facility] [place] [address] [facility] [place] [address] * FL Swallow Function with Video and [...] further details andrecommendations. Pedro Pablo Kline M.D. [facility] FLUOROSCOPY PROC EDURES * Non-Endoscopic Tube Procedure (12/29/2023 1:23 PM CDT) 12/29/2023 1:23 PM CDT Impressions [facility] - 12/29/2023 1:52 PM CDT Post-op Diagnoses: ? - The PEG-J tube was dislodged and was removed and replaced with a 3.5 ? cm long, 22 Fr Avanos FARIHA-SMALL Low-profile PEG-J gastrostomy tube. ? - No specimens collected. Narrative [facility] - 12/29/2023 1:52 PM CDT Gary 6 [...] to tube site or tube call ? [phone] Wednesday - Wednesday 7;30 am-4:30 pm or after hours, weekends, ? holidays call [facility] acid polymerization operator [phone] ask them to page ? [phone] and wait for MD to answer. May [...] 3.5cm long. A 3.5cm long, 22 Fr [employer] FARIHA-SMALL ? Low-profile PEG-J tube was lubricated [...] GI PROCEDURE ORDERAB LES Performing Organization Address [facility] Co de Phone Number MAE PROVATION NA * FL Fluoro Less Than 1 Hour (12/29/2023 1:19 PM CDT) Narrative ERCP LOS RST - 12/29/2023 1:20 PM CDT This exam does not require a radiologist review or interpretation. Please refer to the patient's medical record on this date for clinical details. Pedro Pablo Kline M.D. IMG FLUOROSCOPY PROC EDURES Performing Organization Address [facility] de Phone Number ERCP LOS RST * (ABNORMAL) Venous Blood Gas and Electrolytes [...] POCT ORD ERABLES - DEVICE POC [facility] [address] [place] [address], [facility] PCLX [facility] POC [address] [place] [address] [facility] POC [address] [place] [address] * EEG (12/28/2023 7:29 AM CDT) Narrative [...] Kline M.D. NEUROLOGY ORDERABLES Performing Organization Address City/[facility] Co de Phone Number MMODAL NA * (ABNORMAL) Creatinine with Estimated GFR (12/27/2023 1:34 AM CDT) Creatinine 0.39(L) 0.74 - 1.35 mg/dL 12/27/2023 2:40 AM CDT DTL Estimated GFR (eGFR) >90 >=60 mL/min/BSA 12/27/2023 2:40 AM CDT DTL Comment: Estimated GFR calculated using the 2020 CKD_EPI creatinine equation. Blood (Blood, Venous) 12/27/2023 1:34 AM CDT 12/27/2023 2:01 AM CDT Fatmata Grier M.D. LAB BLOOD ADD-ON Performing Organization Address City/[facility]/ZIP Co de Phone Number [facility] [address] [place] [address], [facility] DTL [facility] [address] [place] [address] * Non-Radiology Image-Pulmonary And CC Medicine Image [...] RAD IMAGI NG PROCEDURES Performing Organization Address [facility] Co de Phone Number IILA NA * Lactate, POCT (12/26/2023 11:54 PM CDT) Lactate, POCT 1.12 0.50 - 2.20 mmol/L 12/27/2023 12:10 AM CDT PCLX Sample Site, POCT Venstick 12/27/2023 12:10 AM CDT PCLX Blood 12/26/2023 11:5 4 PM CDT 12/27/2023 12:10 AM CDT Unknown Provider LAB POCT ORDERABLES - DEVICE Performing Organization Address [facility] Co de Phone Number POC [facility] [address] [place] [address], [facility] PCLX [facility] POC [address] [place] [address] * Feeding Tube Replacement (12/26/2023 9:36 PM [...] at the following links: For Healthcare Providers: https://www.fda.gov/media/301049/download For Patients: https://www.fda.gov/media/937148/download Infl A/B, SARS CoV-2, PCR, Source Swab, Nasopharynx 12/26/2023 7:56 PM CDT [facility] Swab (Nasopharynx) 12/26/2023 7:50 PM CDT 12/26/2023 7:56 PM CDT Jamia Lozano M.D. LAB MICROBIOLOGY - GENERAL ORDERABLES Performing Organization Address City/[facility]/ZIP Co de Phone Number [facility] [address] [place], [place] [id number] [place] [address] STMA [facility] [address] [place] [address] * Bacterial Culture, Aerobic + Susceptibility, Urine (12/26/2023 7:37 PM CDT) Urine Culture No growth after 1 day of incubation. 12/28/2023 7:28 AM CDT DTL Urine (Urine, Midstream) 12/26/2023 7:37 PM CDT 12/26/2023 8:36 PM CDT Comment:Specimen Source Site : Urine Jamia Lozano M.D. LAB MICROBIOLOGY - GENERAL ORDERABLES Performing Organization Address [facility]/ZIP Co de Phone Number [facility] [address] [place], [place] [phone] [place] [address] DTL [facility] [address] [place] [address] * Dipstick, Urine (12/26/2023 7:07 PM CDT) [...] Jamia Lozano M.D. LAB URINE ORDERABLE S [facility] [address] [place] [address], [facility] [address] [place] [address] * Microscopic Automated (12/26/2023 7:07 PM CDT) Microscopy Normal 12/26/2023 7:54 PM CDT DTL RBC None Seen <3 /hpf 12/26/2023 7:54 PM CDT DTL WBC None Seen /hpf 12/26/2023 7:54 PM CDT DTL Comment: ----REFERENCE VALUE---- <4 ??(Males) <11 (Females) Urine 12/26/2023 7:07 PM CDT 12/26/2023 7:37 PM CDT Jamia Lozano M.D. LAB URINE ORDERABLE S Performing Organization Address City/[facility]/ZIP Co de Phone Number [facility] [address] [place] [address], [facility] [address] [place] [address] * pH, Urine (12/26/2023 7:07 PM CDT) pH, U 7.0 4.5 - 8.0 12/26/2023 7:5 0 PM CDT DTL Urine 12/26/2023 7:07 PM CDT 12/26/2023 7:37 PM CDT Jamia Lozano M.D. LAB URINE ORDERABLE S [facility] [address] [place] [address], [facility] [address] [place] [address] * Osmolality, Urine (12/26/2023 7:07 PM CDT) Osmolality, U 237 150 - 1150 mOsm/kg 12/26/2023 7:50 PM CDT DTL Urine 12/26/2023 7:07 PM CDT 12/26/2023 7:37 PM CDT Jamia Lozano M.D. LAB URINE ORDERABLE S Performing Organization Address [facility] Co de Phone Number [facility] [address] [place] [address], [facility] [address] [place] [address] * (ABNORMAL) Urinalysis, with Microscopic: Urine, Catheter [...] LAB URINE ORDERABLE S Performing Organization Address City/[facility]/ZIP Co de Phone Number [facility] [address] [place] [address], [facility] [address] [place] [address] * Dipstick, POCT, Urine (12/26/2023 7:06 PM CDT) Glucose, POCT, U Negative Negative mg/dL 12/26/2023 7:08 PM CDT PCED Ketone, POCT, U Negative Negative mg/dL 12/26/2023 7:08 PM CDT PCED Specific Spencer, POCT, U 1.015 1.005 - 1.030 12/26/2023 [...] POCT ORDERABLES - DEVICE Performing Organization Address City/[facility]/ZIP Co de Phone Number POC RST [facility] [address] [facility] POC [address] [place] [address] * (ABNORMAL) Lactate for Sepsis with Reflex (12/26/2023 5:49 PM CDT) Pathologist [facility] Lactate, P 2.3(H) 0.5 - 2.2 mmol/L 12/26/2023 6:25 PM CDT [facility] Blood (Blood, Venous) 12/26/2023 5:49 PM CDT 12/26/2023 6:12 PM CDT Jamia Lozano M.D. LAB BLOOD NON ADD-O N Performing Organization Address City/[facility]/ZIP Co de Phone Number [facility] [address] [place], [place] [id number] [place] [address] STMA [facility] [address] [place] [address] * (ABNORMAL) Lipase (12/26/2023 5:49 PM CDT) Pathologist [facility] Lipase, S 8(L) 13 - 60 U/L 12/26/2023 6: 49 PM CDT DTL Blood (Blood, Venous) 12/26/2023 5:49 PM CDT 12/26/2023 6:34 PM CDT Jmaia Lozano M.D. LAB BLOOD ADD-ON Performing Organization Address City/[facility] Co de Phone Number [facility] [address] [place] [address], [facility] [address] [place] [address] * Vitamin B12 Assay (12/26/2023 5:48 PM CDT) [facility] Vitamin B12 Assay, S [phone] [...] M.D. LAB BLOOD ADD-ON Performing Organization Address City/[facility] Co de Phone Number [facility] [address] [place] [address], [place] [facility] [address] [place] [address] from Last 3 Months Advance Directives For more information, please contact: [phone] * Full Code (Latest Code Status on [...] Discussed Discussed with james arias Care Teams Faculty Support Coordinator Relationship Specialty Start Date End Date Elsewhere, Pcp PCP - General Family Medicine 06/24/18
--- OUTSIDE RECORDS SUMMARY | 2024-03-14 04:09 | XMS_ITS | Encounter Summary ---
Author Organization [facility] Address [address] [place] [address] Care Team Providers Care Grey Goods Tester Name Role Phone Elsewhere, Pcp Primary Care Provider Unavailabl e Encounter Details Date Type Department Care Team (Late st Contact Info) Description 03/11/2024 9:35 AM CDT Ancillary Procedure Department of Nursing Arrived Social History Tobacco Use Types Packs/Day Years Used Date Smoking Tobacco: Never Smokeless Tobacco: Never Alcohol Use Standard Drinks/Week Comments Never 0 (1 standard drink = 0.6 oz pur e alcohol) [facility] Utilities Answer Date Recorded In the past 12 months has e [employer], gas, oil, or water [employer] threatened to shut off services in your home? Patient unable to answer 03/12/2024 Humiliation, Afraid, Rape, a nd Kick questionnaire Answer Date Recorded Within the last year, have y ou been afraid of your partner or ex-partner? Patient unable to answer 03/12/2024 Within the last year, have y ou been humiliated or emotionally abused in other ways by your partner or ex-partner? Patient unable to answer 03/12/2024 Within the last year, have y ou been kicked, hit, slapped, or otherwise physically hurt by your partner or ex-partner? Patient unable to answer 03/12/2024 Within the last year, have y ou been raped or forced to have any kind of sexual activity by your partner or ex-partner? Patient unable to answer 03/12/2024 Social Connection and Isolation Panel [NHANES] A nswer Date Recorded In a typical week, how many times do you talk on the phone with family, friends, or neighbors? Never 12/11/2021 How often do you get togethe r with friends or relatives? Patient declined 12/11/2021 How often do you attend mu-ism or scientology serv ices? Patient declined 12/11/2021 Do you [...] heating? Not hard at all 12/11/2021 [facility] - [...] to buy more. Patient unable to answer 03/12/2024 Within the past 12 months, t he food you bought just didn't last and you didn't have money to get more. Patient unable to answer 03/12/2024 PRAPARE - Transportation Answer Date Re corded In the past 12 months, has l ack of transportation kept you from medical appointments or from getting medications? Patient unable to answer 03/12/2024 In the past 12 months, has l ack of transportation kept you from meetings, work, or from getting things needed for daily living? Patient unable to answer 03/12/2024 Nutrition Answer Date Recorded On average, how [...] situation today? Patient jimmie ble to answer 03/12/2024 Sex and Gender Information Value Date Recorded Sex Assigned at Male 12/11/2021 2:11 PM CDT Gender Identity Male 12/11/2021 1:44 PM CDT Sexual Orientation Straight 12/11/2021 2: 11 PM CDT documented as of this encounter Plan of Treatment Not on file documented as of this encounter Procedures Procedure Name Priority Date/Time Associated Diagnosis Comments NURSING IMAGE EXAM Routine 03/11/2024 9: 35 AM CDT documented in this encounter Results * Abdomen-Nursing Image Exam (03/11/2024 9:35 AM CDT) 03/11/2024 9:33 AM CDT Narrative IIMS - 03/11/2024 9:35 AM CDT This order has been created and auto-finalized to support the import of images acquired without order. The clinical documentation to support these images can be found on the encounter that produced images. Provider Not In System IMG NON RAD IMAGI NG PROCEDURES IIMS NA documented in this encounter Visit Diagnoses Not on filedocumented in this encounter Care Teams Grey Goods Tester Relationship Specialty Start Date End Date Elsewhere, Pcp PCP - General Family Medicine 06/24/18 documented as of this encounter
--- OUTSIDE RECORDS SUMMARY | 2024-03-14 04:09 | XMS_ITS ---
Author Organization [facility] Address [address] [place] [address] Care Team Providers Care Vp Of Product Name Role Phone Unavailable Unavailable Unavailable Surgery Details Not on file Complications Check Surgery Details section. Procedure Estimated Blood Loss Check Surgery Details section. Procedure Findings Check Surgery Details section. Procedure Specimens Taken Check Surgery Details section.
--- OUTSIDE RECORDS SUMMARY | 2024-03-14 04:09 | XMS_ITS | Encounter Summary ---
Author Organization [facility] Address [address] [place] [id number] Care Team Providers Care Biometrics Consultant Name Role Phone Elsewhere, Pcp Primary Care Provider Unavailabl e Encounter Details Date Type Department Care Team ( Contact Info) Description 03/11/2024 2:16 PM CDT Anesthesia Event RST ROMB MAIN OR [address] [place] [address] [phone] Devin Gonzales M.D. [address] [place] [phone] Elder Ma M.D. [address] [place] [phone] Anesthesia Record Procedure Summary Procedure Name Responsible Anesthesiologist Anesthesia Start Time Anesthesia Stop Time EXPLORATION ABDOMINAL, cholecystectomy, sigmoidectomy, ileocolonic anastomosis, descending colostomy Devin Gonzales M.D. 03/11/24 1416 03/11/24 1822 Events Date Time Event Comment 03/11/2024 1416 An Start Machine/Equipme nt Checked Infection Precautions Followed Procedure/Site Verified NPO Status Verified Supine Standard ASA Monitors Applied 1433 Turnover to Proceduralist 1450 Proc Start 1620 Lab Drawn 1750 Proc Fin 1812 Airway Device Ma intained to Post Op Area 181 Quick Note Transported on bed with RT, MDX2, and MANAGER LABOR RELATIONS 1821 Turnover to ANE Staff 1821 an stop data 1822 An End I completed my handoff to the receiving staff during which we 1. Identified the patient 2. Identified the responsible provider 3. Reviewed the pertinent medical history 4. Discussed the surgical course 5. Reviewed intra-op anesthesia management and issues during anesthesia 6. Set expectations for post-procedure period 7. Allowed opportunity for questions and acknowledgement of understanding. Meds Name Total rocuronium 10 mg/mL injection 90 mg ondansetron 4 mg/2 mL injection 4 mg fentaNYL 10 mcg/mL in NaCl 0.9% 250 mL i nfusion (Sublimaze) 102.5 mcg ketamine 2 mg/mL in NaCl 0.9 % 250 mL in fusion (Ketalar) 142.27 mg norepinephrine 16 mcg/mL in D5W 250 mL i nfusion 0.87 mg propofol 10 mg/mL infusion (Diprivan) 59 6.84 mg vasopressin 20 unit/100 mL ( 0.2 unit/mL) in D5W 100 mL infusion (Pitressin) 0 Units adult/child > 40 kg central parenteral n utrition (CPN) infusion Cannot be calculated levETIRAcetam in NaCl (iso osm) IVPB 2,0 00 mg (Keppra) 2,000 mg Lactated Ringer's 217.5 mL NaCl 0.9 % free drip 250 mL NaCl 0.9 % free drip 500 mL NaCl 0.9% infusion 1.6 mL * Agents No agents on file. * Blood Name Total PLATELETS 202 mL RED BLOOD CELLS 350 mL Lines, Drains, and Airways Type Details Placement Removal Indwelling Urinary Catheter Inserted by: outside facility; Existing LDA Placed by: Other hospital 02/28/24 1853 by Wound 03/12/23; 0900; Y; U nknown; Moisture; Abdomen; Left, Lower; GJ-Tube 03/12/23 0900 by Shanika Tucker R.N., C.W.O.C.N. NG/OG Tube 12/29/23; 1309; Gastrostomy-jejunostomy, Percutaneous endoscopic; Yes; Yes; 10 mL; 22 Fr; 3.5; Left, Lower, Quadrant (abdomen); Small bore (ENFit??) 12/29/23 1309 by Tricia España R.N. Wound 02/28/24; 1600; Y; 1 month; Friction Inj; Buttocks; with Incontinence Associated Dermatitis to Bilateral Groin 02/28/24 1600 by Tam Parikh R.NMay, CCRN ETT Placement Date: 02/11 06/06; Placement Time: 2236 (created via procedure documentation); Mask Ventilation: Easy mask; Technique: Video laryngoscopy; Type: Standard ETT; Single Lumen Tube Size: 7.5 mm; Cuffed: Yes; Location: Oral; Grade View: Grade 2A; Insertion Attempts: 1; Placement Verification: Bilateral breath sounds, Chest x-ray, Fiberoptic visualization, Positive ETCO2, Symmetrical chest wall movement 03/01/242236 by Ivory Paredes P.A.-C., M.S. PICC Double Lumen Placement Date: 02/12 ; Placement Time: 1200 (created via procedure documentation); Cath Out Checklist Completed: Yes; Size: 4 Fr; Description: PICC; Length: 38 cm; Orientation: Right; Location: Basilic; Site Prep: Chlorhexidine (Preferred); Local Anesth: Intradermal lidocaine; Initial Extremity Circumference: 34 cm; Initial Exposed Catheter: 0 cm; Inserted By: BESSIE; Insertion Attempts: 1; Placement Verification: ECG guidance 03/02/24 1200 by Elisa Chapman RJuli NG/OG Tube 03/09/24; 1600; Orog astric; 18 Fr; Oral 03/09/24 1600 by Iron Salmeron RJuli Arterial Line Placement Date: 02/12 05/06; Placemnt Time: 1430 (created via procedure documentation); Size: 20 G; Orientation: Left; Location: Radial; Site Prep: Chlorhexidine (Preferred); Technique: Anatomical landmarks; Insertion Attempts: 1; Securement: Securement dressing, Securement device 03/10/24 1430 by Anastasiya Lee, R.N. Wound 03/10/24; 1642; Inci bryant; all IPSI(s) removed; Removed; Abdomen; Medial 03/10/24 1642 by Selma Hi, R.NMay Peripheral IV Placement Date: 02/12 05/06; Placement Time: 1946; Catheter Size: 22 G; Orientation: Left; Location: Hand (Thumb nuckle); Site Prep: Chlorhexidine (Preferred); Technique: Anatomical landmarks; Insertion Attempts: 1 03/10/241946 by Adriana Goodwin, R.NMay Peripheral IV Placement Date: 02/12 05/06; Placement Time: 1947; Catheter Size: 22 G; Orientation: Left; Location: Foot (Okay per Sx via phone call); Site Prep: Chlorhexidine (Preferred); Technique: Anatomical landmarks; Insertion Attempts: 1 03/10/24 194 by Adriana Goodwin R.N. Closed/Suction Drain 03/11/24; 1726; 1; Right, Superior; Abdomen; Bulb; 19 Fr. 03/11/24 1726 by Lemuel Suh R.N. Closed/Suction Drain 03/11/24; 172; 2; Right, Inferior; Abdomen; Bulb; 19 Fr. 03/11/24 1727 by Lemuel Suh R.N. Closed/Suction Drain 03/11/24; 172; 3; Left; Abdomen; Bulb; 19 Fr. 03/11/24 172 by Lemuel Suh R.N. Ostomy (NEW) 03/11/24; 173; Dr Uzair huggins; Colostomy; Descending; LLQ 03/11/24 173 by Lemuel Suh R.N. documented in this encounter Social History Tobacco Use Types Packs/Day Years Used Date Smoking Tobacco: Never Smokeless Tobacco: Never Alcohol Use Standard Drinks/Week Comments Never 0 (1 standard drink = 0.6 oz pur e alcohol) [facility] [employer]ities Answer Date Recorded In the past 12 months has [employer], gas, oil, or water [employer] threatened to shut off services in your [...] declined 12/11/2021 How often do you attend mandaeism or adventist serv ices? Patient declined 12/11/2021 Do you belong to any clubs o r organizations such as mandaeism groups, unions, fraternal or athletic groups, or [...] and heating? Not hard at all 12/11/2021 [facility] - Occupational [...] OR Notes * Anesthesia Postprocedure Evaluation - Devin Gonzales M.D. - 03/11/2024 6:22 PM CDT Patient: Say Hilario Procedure Summary Date: 03/11/24 Room / Location: [place] [address] / [facility] in [place], [place] Anesthesia Start: 1415 Anesthesia Stop: 1821 Procedure: EXPLORATION ABDOMINAL, cholecystectomy, sigmoidectomy, ileocolonic anastomosis, descending colostomy Diagnosis: Pneumoperitoneum (Pneumoperitoneum [K66.8]) Providers: Aleks Hinkle M.D. Responsible Provider: Devin Gonzales M.D. Anesthesia Type: general ASA Status: 4 - Emergent Anesthesia Type: general Last vitals Vitals Value Taken Time BP Temp Pulse Resp SpO2 Please reference Vitals flowsheet for most recent vital signs. Anesthesia Post Evaluation Patient Disposition: monitored unit, expectation for recovery time deferred to receiving unit Cardiovascular status: hemodynamics (HR & BP) acceptable Respiratory status: mechanically ventilated Temperature: normothermic Oxygen requirements: assisted ventilation (non-invasive or mechanical ventilation) with additional oxygen Level of consciousness: sedated and difficult to awaken, patient unable to participate in evaluation Pain score: pain adequately controlled and/or at baseline Post Op nausea/vomiting: none Hydration status: euvolemic - Continues to be intubated and sedated - Patient in ICU - Continue sto require pressors at NE 0.05 - UO adequate - minimal EBL - ICU had no further questions Joesph Gonzales MD Obstetric Mobile Tester Department of Anesthesiology and Perioperative Medicine Please contact via [employer]/Secure Chat or mobile 03/11/24 * Anesthesia Preprocedure Evaluation - Devin Gonzales M.D. - 03/11/2024 2:45 PM CDT Preprocedure Anesthesia & H&P Assessment Procedure Summary Anesthesia Start Date/Time: 03/11/24 1416 Procedure: EXPLORATION ABDOMINAL Diagnosis: Pneumoperitoneum [K66.8] Pre-op diagnosis: Pneumoperitoneum [K66.8] Location: [place] [address] / [facility] in [place], [place] Providers: Aleks Hinkle M.D. Pertinent components of the patient's history including current problem list, medical history, surgical history, family history, social history, medications and allergies were reviewed. Present illness and pre-op diagnosis were confirmed. The planned surgery / procedure was verified with the patient / legal guardian. The patient's general health condition remains unchanged RELEVANT COMORBID CONDITIONS ANESTHESIA (within normal limits) CV (+) Acute Embolism And Thrombosis Of Left Femoral Vein (HCC) (+) Severe Sepsis With Septic Shock (HCC) RESP (+) Acute Respiratory Failure With Hypoxia (HCC) RENAL/REPRO (within normal limits) ENDO (within normal limits) NEURO (+) Cerebrovascular Disease PSYCH (+) Delirium (not otherwise specified) GENETICS (within normal limits) MSK/RHEUM (within normal limits) GI (within normal limits) HEME (within normal limits) ENT/EYE (within normal limits) ID (within normal limits) ONC (within normal limits) Other (+) Cannabis Use Unspecified Uncomplicated OBJECTIVE PHYSICAL EXAMINATION Airway (HEENT) Pre-existing airway present Cardiovascular Rhythm: Regular Rate: Normal Cardiovascular Assessment: cardiovascular normal Functional Capacity: <4 METS Pulmonary Pulmonary Assessment: Diminished General / Constitutional Constitutional Assessment: Overweight General State of Health:: ill appearing Neurological Neurologic Assessment: cognitive deficit ASSESSMENT / PLAN ANESTHESIA PLAN ASA: 4 - Emergent Anesthesia Plan: general Patient seen and allergies reviewed, anesthesia plan and risks discussed directly with patient /legal guardian or through an resident medical officer. Risks/Benefits/Alternatives of Blood transfusion discussed with patient / legal guardian, includingan opportunity to ask questions and/or decline some or all transfusion therapies. 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 - Poor vascular access currently w/ 22g in the LEFT foot with multiple infusions running - on NE and vasopressin currently stable - Discussed with film cutter regarding central access due to PICC line being used by multiple otherinfusions; decision was to hold off - 2 units of blood Joesph Gonzales MD Obstetric Mobile Tester Department of Anesthesiology and Perioperative Medicine Please contact via [employer] Bal[employer]/Secure Chat or mobile 03/11/24 documented in this encounter Plan of Treatment Not on file documented as of this encounter Visit Diagnoses Not on filedocumented in this encounter Administered Medications Active Administered Medications - up to 3 most recent administrations Medication Order MAR Action Action Date Dose Rate Site NaCl 0.9% infusion 3 mL/hr, intravenous, Continuous, Starting on Wed03/07/24 at 1100, Hemodynamic Monitoring Lines: catheter lumen of central venous catheter (CVC) and Arterial lines for Intensive Care Units (ICU), Progressive Care Unit (PCU) and Telemetry units. Rate/Dose Verify 03/11/2024 2:16 PM CDT 3 mL/hr Rate/Dose Verify 03/11/2024 2:00 PM CDT 3 mL/hr 3 mL/hr Rate/Dose Verify 03/11/2024 1:00 PM CDT 3 mL/hr 3 mL/hr norepinephrine 16 mcg/mL in D5W 250 mL infusion 0-0.3 mcg/kg/min ? 69.4 kg Dosing weight (0-78.075 mL/hr, rounded to 0-78.08 mL/hr), intravenous, Continuous, Starting on 6/28/24 at 1800, Protect from light and avoid extravasation, Patient Type: Sepsis, Initiate at: 0.05 mcg/kg/min, Titrate at: 0.05 mcg/kg/min. every 5 min., Wean at: 0.01 mcg/kg/min. every 5 min., Goal: MAP 65-75 Rate/Dose Verify 03/14/2024 2:00 AM CDT 0.01 mcg/kg/min 2.6 mL/hr Rate/Dose Change 03/14/2024 1:55 AM CDT 0.01 mcg/kg/min 2. 6 mL/hr Rate/Dose Change 03/14/2024 1:52 AM CDT 0.02 mcg/kg/min 5. 21 mL/hr Inactive Administered Medications - up to 3 most recent administrations Medication Order MAR Action Action Date Dose Rate Site adult/child > 40 kg central parenteral nutrition (CPN) infusion intravenous, at 45.8 mL/hr, Administer over 24 Hours, Continuous PN, Starting on Wed03/10/24 at 2100, For 24 hours, Use a 0.22 micron filter., Indication: Ileus Restarted 03/11/2024 5:08 PM CDT Rate/Dose Verify 03/11/2024 3:00 PM CDT 45.8 mL /hr Rate/Dose Verify 03/11/2024 2:16 PM CDT fentaNYL 10 mcg/mL in NaCl 0.9% 250 mL infusion (Sublimaze) 25 mcg/hr (2.5 mL/hr), intravenous, Continuous, Starting on Wed03/10/24 at 1815, 2,500 mcg in 250 mL bag, Type: Do Not Titrate Rate/Dose Verify 03/13/2024 11:00 PM CDT 25 mcg/hr 2.5 mL/hr Rate/Dose Verify 03/13/2024 10:00 PM CDT 25 mcg/hr 2.5 mL /hr Rate/Dose Verify 03/13/2024 9:00 PM CDT 25 mcg/hr 2.5 mL/ hr ketamine 2 mg/mL in NaCl 0.9 % 250 mL infusion (Ketalar) 0-0.5 mg/kg/hr ? 69.4 kg Dosing weight (0-17.35 mL/hr), intravenous, Continuous, Starting on Wed03/10/24 at 1800, Initiate at 0.1 mg/kg/min; titrate by 0.05 every 15 minutes to goal RASS of -1. Range 0.1-0.5 mg/kg/min 500 mg in 250 mL Rate/Dose Verify 03/12/2024 8:00 PM CDT 0.1 mg/kg/hr 3.47 mL/hr New Bag 03/12/2024 7:00 PM CDT 0.1 mg/kg/hr 3.47 mL/hr Rate/Dose Change 03/12/2024 6:33 PM CDT 0.1 mg/kg/hr 3.47 mL/hr Lactated Ringer's 20 mL/hr, intravenous, Continuous, Starting on Wed03/10/24 at 2345 Rate/Dose Verify 03/13/2024 6:00 PM CDT 20 mL/hr 20 mL/hr Rate/Dose Verify 03/13/2024 5:00 PM CDT 20 mL/hr 20 mL/h r Rate/Dose Verify 03/13/2024 4:00 PM CDT 20 mL/hr 20 mL/h r levETIRAcetam in NaCl (iso osm) IVPB 2,000 mg (Keppra) 2,000 mg, intravenous, at 600 mL/hr, Administer over 20 Minutes, Once, On 03/11/24 at 1730, For 1 dose Given 03/11/2024 5:40 PM CDT 2,000 mg NaCl 0.9% infusion intravenous, Continuous Infusion: Per Instructions PRN, Starting on 03/11/24 at 1432, Anesthesia Intra-op New Bag 03/11/2024 2:32 PM CDT NaCl 0.9% infusion intravenous, Continuous Infusion: Per Instructions PRN, Starting on 03/11/24 at 1433, Anesthesia Intra-op New Bag 03/11/2024 2:33 PM CDT ondansetron (PF) injection (Zofran) intravenous, As needed, Starting on 03/11/24 at 1723, Anesthesia Intra-op Given 03/11/2024 5:23 PM CDT 4 mg propofol 10 mg/mL infusion (Diprivan) 40 mcg/kg/min ? 69.4 kg Dosing weight (16.656 mL/hr, rounded to 16.66 mL/hr), intravenous, Continuous, Starting on Wed03/10/24 at 1800, Type: Do Not Titrate Rate/Dose Verify 03/12/2024 8:00 AM CDT 40 mcg/kg/min 16.66 mL/hr New Bag 03/12/2024 7:46 AM CDT 40 mcg/kg/min 16.66 mL/h r Rate/Dose Verify 03/12/2024 7:00 AM CDT 40 mcg/kg/min 16.6 6 mL/hr rocuronium injection (Zemuron) intravenous, As needed, Starting on 03/11/24 at 1438, Anesthesia Intra-op Given 03/11/2024 4:30 PM CDT 20 mg Given 03/11/2024 2:51 PM CDT 30 mg Given 03/11/2024 2:38 PM CDT 40 mg Transfuse Platelets :Active bleed with anti-PLT therapies; 180 mL/hr; No Special Requirements Routine, Transfusion Indications: Active bleed with anti-PLT therapies, Blood Product Administration Rate (mL/hr): 180 mL/hr, Special Requirements? No Special Requirements, Has consent been obtained? Yes - Written consent obtained via [id number], [id number], or [id number], Attending prescriber supervising blood product administration: RJ SPRAGUE IV Team Comments: 09/13 FFP @ 1357, PLTS to follow/pt off to OR @ 1405/TLD New Bag 03/11/2024 3:34 PM CDT Transfuse Red Blood Cells : Routine New Bag 03/11/2024 3:52 PM CDT documented in this encounter Care Teams Biometrics Consultant Relationship Specialty Start Date End Date Elsewhere, Pcp PCP - General Family Medicine 06/24/18 documented as of this encounter
--- OUTSIDE RECORDS SUMMARY | 2024-03-14 04:09 | XMS_ITS | Encounter Summary ---
Author Organization [facility] Address [address] [place] [address] Care Team Providers Care Floor Covering Printer Name Role Phone Elsewhere, Pcp Primary Care Provider Unavailabl e Encounter Details Date Type Department Care Team (Late st Contact Info) Description 03/11/2024 9:40 AM CDT Ancillary Procedure Department of Nursing Arrived Social History Tobacco Use Types Packs/Day Years Used Date Smoking Tobacco: Never Smokeless Tobacco: Never Alcohol Use Standard Drinks/Week Comments Never 0 (1 standard drink = 0.6 oz pur e alcohol) [facility] Utilities Answer Date Recorded In the past 12 months has e [employer], gas, oil, or water [employer] threatened to shut off services in your [...] How often do you attend adventism or taoism serv ices? Patient declined 12/11/2021 Do you [...] heating? Not hard at all 12/11/2021 [facility] Occupat ional Health - Occupational Stress [...] CDT documented in this encounter Results * Qtyuq-Pyqabwe-Dkzhugh Image Exam (03/11/2024 9:35 AM CDT) 03/11/2024 [...] on filedocumented in this encounter Care Teams Floor Covering Printer Relationship Specialty Start Date End Date Elsewhere, Pcp PCP - General Family Medicine 06/24/18 documented as of this encounter
--- OUTSIDE RECORDS SUMMARY | 2024-03-14 04:09 | XMS_ITS | Referral Summary ---
Author Organization [facility] Address [address] [place] [id number] Care Team Providers Care Candy Maker Name Role Phone Elsewhere, Pcp Primary Care Provider Unavailabl e Source Comments Patient records contain information from all sites at [facility]. For routine questions regarding patient records, call [phone] during business hours, M-F 8:00 AM - 5:00 PM Central Time. Record requests for emergency care only can be directed to [phone] at any time.[facility] Encounters Date Type Department Care Team Description 03/13/2024 10:10 AM CDT Ancillary Procedure Department of Nursing Arrived 03/13/2024 10:05 AM CDT Ancillary Procedure Department of Nursing Arrived 03/11/2024 9:40 AM CDT Ancillary Procedure Department of Nursing Arrived 03/11/2024 9:35 AM CDT Ancillary Procedure Department of Nursing Arrived 03/11/2024 2:16 PM CDT Anesthesia Event [facility] [address] [place] [phone] Devin Gonzales M.D. Omar, Ibrahim A, M.D. 03/11/2024 1:33 PM CDT - 03/11/2024 4:50 PM CDT Surgery [facility] [address] [place] [phone] Aleks Hinkle M.D. EXPLORATION ABDOMINAL, cholecystectomy, sigmoidectomy, ileocolonic anastomosis, descending colostomy 03/10/2024 3:10 PM CDT Ancillary Procedure Department of Trauma and Surgery 03/10/2024 2:09 PM CDT Anesthesia Event [facility] [address] [place] [phone] Shanika Carpenter M.D. Lao, Randolph N, APRN, CRNA, DNAP 03/10/2024 1:50 PM CDT - 03/10/2024 4:37 PM CDT Surgery [facility] [address] [place] [phone] Aleks Hinkle M.D. LAPAROSCOPIC EXPLORATION CONVERTED TO OPEN EXPLORATION LAPAROTOMY, RIGHT YAMIL-COLECTOMY, TEMPORARY ABDOMINAL CLOSURE 03/10/2024 10:45 AM CDT Ancillary Procedure Department of Nursing 03/06/2024 9:59 AM CDT Anesthesia Event Department of Radiology, [facility], in [place], [place] [address] [place] [phone] Ginger Hardin APRN, KRISHAN, DNAP 03/05/2024 10:05 PM CDT Ancillary Procedure Department of Nursing 03/03/2024 10:15 PM CDT Ancillary Procedure Department of Nursing 03/01/2024 12:20 PM CDT Ancillary Procedure Department of Nursing 02/29/2024 9:00 AM CDT Ancillary Procedure Department of Nursing 02/29/2024 8:55 AM CDT Ancillary Procedure Department of Nursing 02/29/2024 6:00 AM CDT Ancillary Procedure Department of Radiology in [place], [place] [address] [place] [address] Erasmo Lloyd APRN, C.N.P., D.N.P. 02/28/2024 4:50 PM CDT Ancillary Procedure Department of Nursing 02/28/2024 3:50 PM CDT Ancillary Procedure Department of Nursing 02/28/2024 2:51 PM CDT - Present Hospital Encounter [facility], [facility], [facility], Seventh Floor [address] [place] [phone] Wes Person M.B.B.S. Rufus Ba M.B.B.S. Buckarma, Eeeln H, M.D. Sonido Cruz M.D., Ph.D. Acute Respiratory Failure With Hypoxia (HCC) (Primary Dx); Aspiration Pneumonia Secondary to Procedure; Decline Functional Status [R53.81]; Pneumoperitoneum 02/28/2024 Intake [facility] 02/02/2024 10:40 AM CDT - 02/02/2024 11:59 PM CDT Hospital Encounter Department of Laboratory Medicine in [place], [place] [address] [place] [address] Jose Martin Eaton M.D. 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 Snoring (Primary Dx); Hypoxemia; Stroke Cerebrovascular Accident Personal History 12/30/2023 Orders Only Department of Nutrition and Diabetes Education in [place], [place] [address] [place] [address] Na Brennan RDN, ADELA Ayaan Gastaut Syndrome (HCC) (Primary Dx); Gastrojejunostomy Percutaneous Status Post ; Dietary Counseling And Surveillance For Enteral Nutrition 12/26/2023 4:16 PM CDT - 12/30/2023 12:14 PM CDT Hospital Encounter [facility], [facility], Sixth Floor [address] [place] [phone] Jamia Lozano M.D. Andria Shaffer M.B.B.S., M.Keren. Wes Person M.B.BMayS. Feliciano Alejandre M.D., Ph.D. Pneumonia (Primary Dx); Sepsis (HCC); Aftercare Feeding Tube; Dehydration; Diarrhea; Acidosis Lactic; Dysphagia Oropharyngeal Phase [R13.12] Discharge Disposition: Home or Self Care 12/29/2023 12:52 PM CDT Anesthesia Event Division of Gastroenterology in [place], [place] [address] [place] [phone] Cruz Edmonds APRN, KRISHAN 12/29/2023 11:05 AM CDT - 12/29/2023 11:59 PM CDT Hospital Encounter Department of Radiology, [facility], in [place], [place] [address] [place] [phone] Pedro Pablo Kline M.D. Discharge Disposition: Home or Self Care 12/27/2023 Orders Only Center [facility] in [place], [place] [address] [place] [address] Srinath Rodriguez M.D. 12/27/2023 12:50 AM CDT Ancillary Procedure Department of Pulmonary and CC Medicine 12/26/2023 Nurse Triage Department of [facility], [facility], in [place], [place] [address] [place] [phone] Poonam Jasmine R.N. Vomiting; Tube Problem 12/20/2023 Documentation Division of Endocrinology in [place], [place] [address] [place] [address] Anastasia Chaney RJuli Scheduling 12/20/2023 Orders Only Division of Endocrinology in [place], [place] [address] [place] [address] Anastasia Chaney RJuli Dietary Counseling And Surveillance For Enteral Nutrition (Primary Dx) 12/20/2023 Clinical Communication Division of Endocrinology in [place], [place] [address] [place] [address] Provider, Unknown Follow-up Orders from Last 3 Months Allergies Active Allergy Reactions Criticality Noted Date Comments Amoxicillin-Pot Clavulanate Other (see comments) High 07/01/2020 Acute generalized exanthematous pustulosis (severe cutaneous adverse reaction) noted 07/01/2020. Augmentin/ Amoxicillin use contraindicated. Camphor Other (see comments) 12/20/2010 Converted from Generic Allergy: Eucalyptus/Menthol/Campho r Itxugdi-Pszlnmehpr-T enthol Other (see comments) 12/01/2020 Cefaclor Other (see comments) 02/17/2010 Converted from Generic Allergy: Cefaclorleukopenia leukopenia Euc Zvw-Gbts-Kjx,Rosem Oils-Pt Rash 05/14/2022 Levofloxacin Rash 05/14/2022 Penicillin [...] drink = 0.6 oz pur e alcohol) [facility] Utilities Answer Date Recorded In the past 12 months has e [employer], gas, oil, or water [employer] threatened to shut off services in [...] How often do you attend sikh or oriental orthodox serv ices? Patient declined [...] and heating? Not hard at all 12/11/2021 [facility] [place] of Occupat ional Health - Occupational Stress [...] 03/13/2024 9:12 AM CDT Plan of Treatment Not on file Medical Devices Implanted Type Area Telegraph Messenger Device Identifier Shelf Expiration Date Model / Serial / Lot Parker [employer] Seprafilm 3x5 - [id number] Implanted:Qt y: 1 on 03/10/2024 by Aleks Hinkle M.D. at [facility] Mesh or Patch N/A: Abdomen Moore 03/11/2026 [id number] / / [id number] Stnt Uret Inl 6fx24 - Sna - [id number] Implanted:Qt y: 1 on 04/05/2023 by Erika Londono M.D. at [facility] Ureteral Stent C.R.Bard [id number] 04/28/2027 [id number] / NA / [id number] Explanted Type Area Telegraph Messenger Device Identifier Shelf Expiration Date Model / Serial / Lot Stnt Uret Inl 7fx24 - [id number] Implanted:Qty : 1 on 02/22/2023 by Danita Munoz M.D. at [facility] Explanted:Qty : 1 on 04/05/2023 by Erika Londono M.D. Ureteral Stent Left: Ureter C.R.Bard [id number] 08/06/2026 [id number] / / [id number] Procedures The patient is currently admitted. The [...] LINE INSERTION Routine 03/10/2024 2:30 PM CDT WA ARTL CATH/CNULA MONITOR PERC Routine 03/10/2024 2:30 [...] INVASIVE CATHETER Routine 03/01/2024 10:55 PM CDT WA BRONCHOSCOPY W ALVEOLAR LAVAGE Routine 03/01/2024 10:30 [...] CDT INTUBATION Routine 03/01/2024 10:28 PM CDT [facility] ANE ENDOTRACHEAL AIRWAY Routine 03/01/2024 10:00 PM CDT Acute Respiratory Failure With Hypoxia (HCC) WA INTUB W ETT Routine 03/01/2024 10:00 PM [...] 02/29/2024 12:22 PM CDT RESPIRATORY PANEL, PCR, PIANO MACHINE OPERATOR Routine 02/29/2024 9:12 AM CDT NURSING [...] Routine 02/02/2024 11:03 AM CDT Medication Therapy Intermediate Not Anticoagulant CBC WITH DIFFERENTIAL, B Routine 02/02/2024 11:03 AM CDT Medication Therapy Reverberatory Skimmer Not Anticoagulant FELBAMATE (FELBATOL) LEVEL, S Routine 02/02/2024 11:03 AM CDT 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 LAB BLOOD NON ADD-ON [facility] [address] [place] [address], [facility] [address] [place] [address] * (ABNORMAL) Blood Gas with Coox, Arterial [...] PM CDT 03/13/2024 1:45 PM CDT Alesha Shi APRN, C.N.P., D.N.P. LAB BLOOD NON ADD-ON [facility] [address] [place] [address], [facility] [address] [place] [address] * Buttock/Sacrum-Nursing Image Exam (03/13/2024 10:06 AM [...] RAD IMAGI NG PROCEDURES Performing Organization Address City/[facility]/ZIP Co de Phone Number [facility] NA * Patient Status (03/13/2024 9:28 AM CDT) Only the most recent of10 resultswithin the time period is included. O2 Flow 30.0 L/min 03/13/2024 9:31 AM CDT ST[facility] Device Vent 03/13/2024 9:31 AM CDT [facility] Spont. breaths/min 14 03/13/2024 9:31 AM CDT [facility] Blood 03/13/2024 9:28 AM CDT 03/13/2024 9:31 AM CDT Xiao Wheeler APRN, C.N.P., D.N.P. LAB BLOOD NON ADD-ON Performing Organization Address [facility] [[email or web address]] Co de Phone Number [facility] [address] [place] [address] * Staph aureus / MRSA, Nasal, PCR (03/13/2024 9:28 AM CDT) Only the most recent of2 resultswithin the time period is included. Staphylococcus aureus, PCR Negative Negative 03/13/2024 11:51 AM CDT DTL MRSA, PCR Negative Negative 03/13/2024 11:51 AM CDT DTL Swab (Nares) 03/13/2024 9:28 AM CDT 03/13/2024 10:12 AM CDT Alesha Shi APRN, C.N.P., D.N.P. LAB MICROBIOLOGY - GENERAL ORDERABLES Performing Organization Address City/[facility]/ZIP Co de Phone Number [facility] [address] [place] [address], [facility] DTL [facility] [address] [place] [address] * (ABNORMAL) Blood Gas with Coox, Venous (03/13/2024 9:28 AM CDT) Only the most recent of4 resultswithin the time period is included. pO2, Venous, B 52 Not applicable mm [...] APRN, C.N.P., D.N.P. LAB BLOOD NON ADD-ON [facility] [address] [place] [address], [facility] [address] [place] [address] * Lactate (03/13/2024 8:50 AM CDT) Only the most recent of10 resultswithin the time period is included. [facility] Lactate, P 0.6 0.5 - 2.2 mmol/L 03/13/2024 9:07 AM CDT ST[facility] Blood (Blood, Venous) 03/13/2024 8:50 AM CDT 03/13/2024 8:54 AM CDT Alesha Shi APRN, C.N.P., D.N.P. LAB BLOOD NON ADD-ON [facility] [address] [place] [address], [facility] [address] [place] [address] * Glucose, POCT (03/13/2024 7:39 AM CDT) Only the most recent of63 resultswithin the time period is included. [facility] Glucose, POCT, B 118 70 - 140 mg/dL 03/13/2024 7:43 AM CDT PCLX Site ARTLINE 03/13/2024 7:43 AM CDT PCLX Last Intake TPN 03/13/2024 7:43 AM CDT PCLX Blood 03/13/2024 7:39 AM CDT 03/13/2024 7:43 AM CDT Unknown Provider LAB POCT ORDERABLES- MANUAL POC [facility] [address] [place] [address], [facility] PCLX [facility] POC [address] [place] [address] * DX Chest Portable 1 View (03/13/2024 [...] near the superior cavoatrial junction. Subdiaphragmatic enterictube. Girish Hernandez APRN.N.P. IM QUITA GNOSTIC IMAGING PROCEDURES * Apixaban, Anti-Xa, P (03/13/2024 4:35 AM CDT) Only the most recent of2 resultswithin the time period is included. Pathologist [facility] Apixaban, Anti-Xa, P 14 see interpretation ng/mL 03/13/2024 11:59 AM CDT DTL Comment: ----ADDITIONAL INFORMATION---- This test has been modified from the crayon painter's instructions. Its performance characteristics were determined by [facility] in a manner consistent with CLIA [...] AM CDT 03/13/2024 7:08 AM CDT Samuel Belle APRN, C.N.P. LAB BLOOD NON ADD-ON [facility] [address] [place] [address], [facility] [address] [place] [address] * (ABNORMAL) Hepatic Function Panel (03/13/2024 4:35 AM CDT) Only the most recent of6 resultswithin the time period is included. Bilirubin, Total, S 0.4 0.0 - 1.2 [...] Cagle APRN, C.N.P. LAB BLO OD ADD-ON [address] [address], [facility] [place] [address] * (ABNORMAL) Prothrombin Time (PT) (03/13/2024 4:35 [...] CDT Lauren Kennedy M.D. LAB BLOOD ADD-ON [facility] [address] [place] [address], [facility] [address] [place] [address] * Phosphorus Inorganic (03/13/2024 4:35 AM CDT) Only the most recent of9 resultswithin the time period is included. Phosphorus (Inorganic), S 3.5 2.5 - 4.5 mg/dL 03/13/2024 5:31 AM CDT DTL Blood (Blood, Venous) 03/13/2024 4:35 AM CDT 03/13/2024 5:08 AM CDT Girish Hernandez APRN.N.PMay LAB BLO OD ADD-ON Performing Organization Address City/[facility]/ZIP Co de Phone Number [facility] [address] [place] [address], [facility] [address] [place] [address] * Magnesium (03/13/2024 4:35 AM CDT) Only the most recent of9 resultswithin the time period is included. Magnesium, S 1.9 1.7 - 2.3 mg/dL 03/13/2024 5:31 AM CDT DTL Blood (Blood, Venous) 03/13/2024 4:35 AM CDT 03/13/2024 5:08 AM CDT Girish Hernandez APRN.N.P. LAB BLO OD ADD-ON Performing Organization Address City/[facility]/ZIP Co de Phone Number [facility] [address] [place] [address], [facility] [address] [place] [address] * (ABNORMAL) Basic Metabolic Panel (03/13/2024 4:35 AM CDT) Only the most recent of22 resultswithin the time period is included. Potassium, [...] CDT 03/13/2024 5:08 AM CDT Neel Hernandez APRNNLuis Fernando LAB BLO OD ADD-ON [facility] [address] [place] [address], [facility] [address] [place] [address] * (ABNORMAL) CBC without Differential (03/13/2024 4:34 [...] CDT 03/13/2024 4:52 AM CDT Neel Hernandez APRNN.PMay LAB BLO OD ADD-ON [facility] [address] [place] [address], [facility] [address] [place] [address] * Calcium, Ionized (03/13/2024 4:34 AM CDT) Only the most recent of9 resultswithin the time period is included. Pathologist [facility] Calcium, Ionized, S 4.81 4.57 - 5.43 mg/dL 03/13/2024 5:19 AM CDT DTL Comment: ----ADDITIONAL INFORMATION---- This test has been modified from the crayon painter's instructions. Its performance characteristics were determined by [facility] in a manner consistent with CLIA requirements. This test has not been cleared or approved by the U.S. Food and Drug Administration. pH for Ionized Calcium 7.47 7.35 - 7.48 03/13/2024 5:19 AM CDT DTL Blood (Blood, Venous) 03/13/2024 4:34 AM CDT 03/13/2024 5:07 AM CDT Neel Hernandez APRNNLuis Fernando LAB BLO OD NON ADD-ON Performing Organization Address City/[facility]/ZIP Co de Phone Number [facility] [address] [place] [address], [facility] DTL [facility] [address] [place] [address] * (ABNORMAL) Thromboelastograph, Kaolin, Blood (03/13/2024 4:31 [...] LAB BLOOD NON ADD-ON Performing Organization Address City/[facility]/ZIP Co de Phone Number [facility] [address] [place] [address], [facility] STMA [facility] [address] [place] [address] * Cystatin C with Estimated GFR (03/13/2024 [...] Ph.D. LAB BLOOD ADD-ON Performing Organization Address City/[facility]/ZIP Co de Phone Number [facility] [address] [facility] [address] [place] [address] * Cortisol (03/13/2024 4:25 AM CDT) Pathologist [facility] Cortisol, Random, S 16 mcg/dL 03/13/2024 9:53 AM CDT DTL Comment: ----REFERENCE VALUE---- AM ([id number]): 4.8-20 PM ([id number]): 2.5-12 Blood 03/13/2024 4:25 AM CDT 03/13/2024 9:22 AM CDT Paul Lee Pharm.D., R.Ph., [facility] LAB BLOOD ADD-ON Performing Organization Address City/[facility]/ZIP Co de Phone Number [facility] [address] [facility] [address] [place] [address] * Transfuse Pooled Cryoprecipitate:Other (Specify); altered TEG; [...] the time period is included. Greta Figueroa, Uzair.Ch., B.A.O. B LOOD TRANSFUSION ORDERABLES * Type and Screen (with Reflex Antibody ID) (03/12/2024 6:39 PM CDT) Only the most recent of3 resultswithin the time period is included. Pathologist [facility] ABORh O Pos Not applicable 03/12/2024 7:11 PM CDT STRM Antibody Screen Negative Negative 03/12/2024 7:22 PM CDT STRM Type & Screen Expiration 03/15/2024 23:59 03/12/2024 7:11 PM CDT STRM Testing Location [facility] 03/12/2024 6:50 PM CDT STRM Blood (Blood, Venous) 03/12/2024 6:39 PM CDT 03/12/2024 6:50 PM CDT Greta Figueroa, B.Ch., B.A.O. L AB BLOOD BANK TEST ORDERABLES [facility] [address] [place] [address], [facility] [address] [place] [address] * DX Abdomen Portable Anterior Posterior 1 [...] Stoma appliance left abdomen. Aleks Hinkle M.D. IMG DIAGNOSTIC RAVI GING PROCEDURES * Transfuse Platelets [...] CDT Rufus Meng LAB BLOOD ADD-O N [facility] [address] [place] [address], [facility] DTL [facility] [address] [place] [address] * (ABNORMAL) Troponin T, 2 Hour with 6 Hour Reflex, 5th Gen (03/10/2024 8:25 PM CDT) Troponin T, 2 hr, 5th gen 16(H) <=15 ng/L 03/10/2024 8:44 PM CDT ST[facility] 2H Delta -2 ng/L 03/10/2024 8:44 PM CDT [facility] Comment:6 hour collection no t indicated. 2H Delta Interp Not Changing 03/10/2024 8:44 PM CDT [facility] 03/10/2024 8:25 PM CDT 03/10/2024 8:29 PM CDT Xiao Wheeler APRN, Girish.N.P., D.N.P. LAB BLOOD TROPONIN [facility] [address] [place] [address], [facility] [address] [place] [address] * (ABNORMAL) Troponin T, Baseline with 2 Hour/6 Hour Reflex Biomarker Panel (03/10/2024 6:12 PM CDT) Pathologist [facility] Troponin T, Baseline, 5th gen 18(H) <=15 ng/L 03/10/2024 6:34 PM CDT [facility] Blood (Blood, Venous) 03/10/2024 6:12 PM CDT 03/10/2024 6:18 PM CDT Xiao Wheeler APRN, C.N.P., D.N.P. LAB BLOOD TROPONIN [facility] [address] [place] [address], [facility] [address] [place] [address] * ECG 12 Lead (03/10/2024 5:37 PM CDT) Only the most recent of2 resultswithin the time period is included. Ventricular Rate ECG/Min 70 BPM MUSE WA Interval 128 ms MUSE QRSD Interval 82 ms MUSE QT Interval 436 ms MUSE QTC Interval 470 ms MUSE P [place] -11 degrees MUSE R [place] 38 degrees MUSE T Wave [place] 18 degrees MUSE 03/10/2024 5:37 PM CDT [...] Xiao Wheeler APRN, C.N.P., D.N.P. ECG ORDERABLES Performing Organization Address City/[facility]/ZIP Co de Phone Number MUSE NA * Sodium, B (03/10/2024 4:39 PM CDT) Only the most recent of2 resultswithin the time period is included. Pathologist [facility] Sodium, B 141 135 - 145 mmol/L 03/10/2024 4:41 PM CDT STMA Blood (Blood, Arterial Line) 03/10/2024 4:39 PM CDT 03/10/2024 4:39 PM CDT Renea Pelletier M.D. LAB BLOOD NON ADD-ON Performing Organization Address City/[facility]/ZIP Co de Phone Number [facility] [address] [place] [address], [facility] [address] [place] [address] * (ABNORMAL) Potassium, Blood (03/10/2024 4:39 PM CDT) Only the most recent of2 resultswithin the time period is included. Potassium, B 3.1(L) 3.6 - 5.2 mmol/L 03/10/2024 4:42 PM CDT STMA Blood (Blood, Arterial Line) 03/10/2024 4:39 PM CDT 03/10/2024 4:39 PM CDT Renea Pelletier M.D. LAB BLOOD NON ADD-ON [facility] [address] [place], [place] [address] [place] [address] [address] [place] [address] * Glucose, Whole Blood (03/10/2024 4:39 PM CDT) Only the most recent of2 resultswithin the time period is included. [facility] Glucose 119 70 - 140 mg/dL 03/10/2024 4:41 PM CDT [facility] Blood (Blood, Arterial Line) 03/10/2024 4:39 PM CDT 03/10/2024 4:39 PM CDT Renea Pelletier M.D. LAB BLOOD ADD-ON [facility] [address] [place] [address], [facility] [address] [place] [address] * (ABNORMAL) APTT (Activated Partial Thromboplastin Time) (03/10/2024 4:39 PM CDT) [facility] Activated Partial Thrombopl Time, P 40(H) 25 - 37 sec 03/10/2024 5:01 PM CDT [facility] Blood (Blood, Arterial Line) 03/10/2024 4:39 PM CDT 03/10/2024 4:39 PM CDT Renea Pelletier M.D. LAB BLOOD ADD-ON Performing Organization Address City/[facility]/ZIP Co de Phone Number [facility] [address] [place] [address] * (ABNORMAL) Fibrinogen (03/10/2024 4:39 PM CDT) Fibrinogen, P 457(H) 200 - 393 mg/dL 03/10/2024 4:59 PM CDT [facility] Blood (Blood, Arterial Line) 03/10/2024 4:39 PM CDT 03/10/2024 4:39 PM CDT Renea Pelletier M.D. LAB BLOOD ADD-ON Performing Organization Address [facility]/ZIP Co de Phone Number [facility] [address] [place], [place] [address] [place] [address] [address] [place] [address] * (ABNORMAL) Platelet Count (03/10/2024 4:39 PM CDT) Pathologist [facility] Platelet Count 132(L) 135 - 317 x10(9)/L 03/10/2024 4:48 PM CDT [facility] Blood (Blood, Arterial Line) 03/10/2024 4:39 PM CDT 03/10/2024 4:39 PM CDT Renea Pelletier M.D. LAB BLOOD ADD-ON Performing Organization Address City/[facility]/ZIP Co de Phone Number [facility] [address] [place] [address] * Abdomen-Trauma CC And Surgery Image Exam [...] RAD IMAGI NG PROCEDURES IIMS NA * WA ARTL CATH/CNULA MONITOR PERC, LDA ANE ARTERIAL LINE INSERTION (03/10/2024 2:30 PM CDT) Narrative Ayad Georges, ORTHOPEDIC SURGEON, SUPERVISOR STATEMENT CLERKS, DNAP - 03/10/2024 2:30 PM CDT Anastasiya [...] junction. Findings were discussed with Tam JEWELL (#[id number]) at 03/10/2024 10:37 AM. Procedure Note Estelle [...] junction. Findings were discussed with Tam JEWELL (#[id number]) at 0:37 AM. IMPRESSION: 1. New large volume pneumoperitoneum, likely secondary to gastricperforation at the site of the percutaneous gastrojejunostomy balloon. 2. Slightly worsened functional ileus. 3. Persistent consolidative/groundglass opacities in the bibasilar lowerlungs. 4. Decreased inflammation of the distal sigmoid colon and rectum. Basil Miranda APRN, C.N.P. IMG CT [place] OCEDURES * (ABNORMAL) Blood Gas without Coox, [...] 12:50 PM CDT 03/09/2024 12:53 PM CDT Girish Jennings APRN.N.Thierry., M.S.N. NEAL Dunne BLOOD NON ADD-ON [facility] [address] [place] [address], [facility] [address] [place] [address] * (ABNORMAL) Blood Gas without Coox, Arterial [...] 12:22 PM CDT Girish Jennings APRN.N.P., M.S.N. ENAL B BLOOD NON ADD-ON [facility] [address] [place] [address], [facility] [address] [place] [address] * Potassium (03/07/2024 11:13 AM CDT) Potassium, P 5.2 3.6 - 5.2 mmol/L 03/07/2024 11:28 AM CDT [facility] Blood (Blood, Venous) 03/07/2024 11:13 AM CDT 03/07/2024 11:17 AM CDT Rashad Sal APRN, C.N.P., M.S.N. NEAL Dunne BLOOD ADD-ON [facility] [address] [place] [address], [facility] [address] [place] [address] * MR Brain without IV Contrast (03/06/2024 [...] within the visualized intracranial vessels. Procedure Note Trenton Tran M.D. - 03/06/2024 EXAM: MR BRAIN WITHOUT [...] advanced forpatient's age and progressed since 2013. Shay Marsh APRN, C.N.P., M.S.N. [facility] MRI PROCEDURES * (ABNORMAL) Clobazam and Metabolite (03/06/2024 8:45 AM CDT) Only the most recent of3 resultswithin the time period is included. Clobazam 221.0 30 - 300 ng/mL 03/07/2024 1:39 AM CDT [facility] N-desmethylclobazam 5420.0(H) 300 - 3000 ng/mL 03/07/2024 1:39 AM CDT [facility] Comment: ----ADDITIONAL INFORMATION---- This test was developed and its performance characteristics determined by [facility] in a manner consistent with CLIA requirements. This test has not been cleared or approved by the U.S. Food and Drug Administration. Blood (Blood, Venous) 03/06/2024 8:45 AM CDT 03/06/2024 1:40 PM CDT Basil Miranda APRN, C.N.P. LAB BLOOD ADD-ON Performing Organization Address City/[facility] [[email or web address]] Co de Phone Number [facility] [address] [place] [address] [facility] [address] [place] [address] [place] [address] * Rufinamide, S (03/06/2024 8:45 AM CDT) Only the most recent of3 resultswithin the time period is included. [facility] Rufinamide, S 14.5 5.0 - 30.0 mcg/mL 03/09/2024 2:03 PM CDT [facility] Comment: ----ADDITIONAL INFORMATION---- This test was developed and its performance characteristics determined by [facility] in a manner consistent with CLIA requirements. This test has not been cleared or approved by the U.S. Food and Drug Administration. Blood (Blood, Venous) 03/06/2024 8:45 AM CDT 03/06/2024 1:43 PM CDT Basil Miranda APRN, C.N.P. LAB BLOOD NON ADD-ON Performing Organization Address City/[facility]/ZIP Co de Phone Number [facility] [address] [place] [address] [facility] [address] [place] [address] [place] [address] * (ABNORMAL) Levetiracetam Level (03/06/2024 8:45 AM CDT) Only the most recent of3 resultswithin the time period is included. Levetiracetam, S 86.7(H) 10.0 - 40.0 mcg/mL 03/06/2024 3:05 PM CDT [facility] Comment: ----ADDITIONAL INFORMATION---- This test was developed and its performance characteristics determined by [facility] in a manner consistent with CLIA requirements. This test has not been cleared or approved by the U.S. Food and Drug Administration. Blood (Blood, Venous) 03/06/2024 8:45 AM CDT 03/06/2024 1:11 PM CDT Basil Miranda APRN, C.N.P. LAB BLOOD NON ADD-ON Performing Organization Address [facility] [[email or web address]] Co de Phone Number [facility] [address] [place] [address] [facility] [address] [place] [address] [place] [address] * Lamotrigine Level (03/06/2024 8:45 AM CDT) Only the most recent of3 resultswithin the time period is included. Lamotrigine, S 12.9 3.0 - 15.0 mcg/mL 03/06/2024 2:44 PM CDT [facility] Comment: ----ADDITIONAL INFORMATION---- This test was developed and its performance characteristics determined by [facility] in a manner consistent with CLIA requirements. This test has not been cleared or approved by the U.S. Food and Drug Administration. Blood (Blood, Venous) 03/06/2024 8:45 AM CDT 03/06/2024 1:11 PM CDT Basil Miranda APRN, C.N.P. LAB BLOOD NON ADD-ON Performing Organization Address City/[facility] [[email or web address]] Co de Phone Number [facility] [address] [place] [address] [facility] [address] [place] [address] [place] [address] * EEG (03/06/2024 7:26 AM CDT) Narrative [...] field of Wing Rubin M.D. NEUROLOGY ORDERABLES MMODAL NA * (ABNORMAL) Felbamate (Felbatol) Level (03/06/2024 6:01 AM CDT) Only the most recent of3 resultswithin the time period is included. Felbamate (Felbatol), S 181.6(H) 30.0 - 80.0 mcg/mL 03/06/2024 3:36 PM CDT [facility] Comment: ----ADDITIONAL INFORMATION---- This test was developed and its performance characteristics determined by [facility] in a manner consistent with CLIA requirements. This test has not been cleared or approved by the U.S. Food and Drug Administration. Blood (Blood, Venous) 03/06/2024 6:01 AM CDT 03/06/2024 9:28 AM CDT Basil Miranda APRN, C.N.P. LAB BLOOD NON ADD-ON Performing Organization Address City/[facility]/ZIP Co de Phone Number [facility] [address] [place] [address] [facility] [address] [place] [address] [place] [address] * (ABNORMAL) Albumin (03/06/2024 5:56 AM CDT) Albumin, S 2.6(L) 3.5 - 5.0 g/dL 03/06/2024 5:24 PM CDT DTL Blood (Blood, Venous) 03/06/2024 5:56 AM CDT 03/06/2024 5:00 PM CDT Amrita Liz APRN, C.N.PMay, D.N.P. LAB BLOOD ADD-ON Performing Organization Address City/[facility] [[email or web address]] Co de Phone Number [address] [address], [facility] [address] [place] [address] * DX Chest Portable Post PICC Placement [...] APRN, C.N.P., M.S.N. LAB BLOOD NON ADD-ON [facility] [address] [place] [address], [facility] [address] [place] [address] * Place peripherally inserted central catheter (PICC) [...] Complications: no apparent complications Tam Huang P.A.-C. MMaySMay PROCE DURE/MINOR SURGICAL ORDERABLES MMODAL NA * CT Head without IV Contrast (03/02/2024 9:50 AM CDT) Anatomical Region Laterality Modality Head, Neuroradiology R[facility] , Neuroradiology [facility], [facility] N/A Computed Tomography, Compute d Tomography 03/02/2024 [...] P.A.-C., M.S. IMG C T PROCEDURES * (ABNORMAL) [...] CDT 03/02/2024 4:32 AM CDT Gardenia Gordillo APRN C.N.P., M.S.N. LAB BLOOD ADD-ON [facility] [address] [place] [address], [facility] DTL [facility] [address] [place] [address] * Cell Count and Differential, Bronchoalveolar Lavage (03/02/2024 2:38 AM CDT) Fluid Type BAL DEFAULT 03/02/2024 3:03 AM CDT DHPM Gross appearance Clear 03/02/20 3:03 AM CDT DHPM Total Nucleated Cells 10.8 x10(6) 03/02/2024 3:03 AM CDT [facility] Comment: ----REFERENCE VALUE---- The reference range and other method performance specifications have not been established for this body fluid. The test result must be integrated into the clinical context for interpretation. ----ADDITIONAL INFORMATION---- This test has been modified from the crayon painter's instructions. Its performance characteristics were determined by [facility] in a manner consistent with CLIA requirements. This test has not been cleared or approved by the U.S. Food and Drug Administration. Volume Recovered 25 mL 03/02/20 24 3:03 AM CDT PM Alveolar Macrophage 15 % 03/02 4:08 AM CDT [facility] Comment: ----REFERENCE VALUE---- The reference range and other method performance specifications have not been established for this body fluid. The test result must be integrated into the clinical context for interpretation. Lymphocytes 3 % 03/02/2024 4:08 AM CDT [facility] [facility] [...] Cells 6 % 03/02/2024 4:08 AM CDT [facility] [...] LAB BOD Y FLUIDS AND STOOLS ORDERABLES [address] [address], [facility] [place] [address] [place] [address] * Bacterial Culture, Aerobic + Susceptibility, Respiratory (03/02/2024 12:44 AM CDT) Only the most recent of2 resultswithin the time period is included. Pathologist [facility] Bacterial Culture, Aerobic, Resp No growth after 2 days of incubation. 03/04/2024 10:44 AM CDT DT Lavage (Bronchoalveolar Lavage) 03/02/2024 12:44 AM CDT 03/02/2024 1:36 AM CDT Comment:Specimen Source Site : Lavage Ivory Paredes P.A.-C. MMaySMay LAB FARIHA ROBIOLOGY - GENERAL ORDERABLES Performing Organization Address [facility] [[email or web address]] Co de Phone Number [facility] [address] [place] [address] * Streptococcus pneumoniae Antigen, Urine (03/02/2024 12:44 AM CDT) Pathologist [facility] Streptococcus pneumoniae Ag, U Negative Negative 03/02/2024 2:42 PM CDT [facility] Comment: Negative for pneumococcal pneumonia, suggesting no [...] AM CDT Ivory Paredes P.A.-C. MMaySMay LAB FARIHA ROBIOLOGY - GENERAL ORDERABLES Performing Organization Address City/[facility] [[email or web address]] Co de Phone Number [facility] [address] [place] [address] [facility] [address] [place] [address] [place] [address] * Legionella Antigen, Urine (03/02/2024 12:44 AM CDT) Pathologist [facility] Legionella Ag, U Negative Negative 03/02/20 2:20 PM CDT [facility] Comment: Negative for L. pneumophila serogroup 1 [...] This assay was performed using the FDA-cleared WalltikaxCoContestW Legionella Urinary Antigen Test, a rapid immunochromatographic assay. Urine (Urine, Indwelling Catheter) 03/02/2024 12:44 AM CDT 03/02/2024 7:25 AM CDT Ivory Paredes P.A.-C., M.S. LAB FARIHA ROBIOLOGY - GENERAL ORDERABLES [facility] [place] [address] [place] [address] [facility] [address] [place] [address] [place] [address] * Bacteria / Christopher Culture, Blood #1 (03/01/2024 11:08 PM CDT) Only the most recent of4 resultswithin the time period is included. Pathologist [facility] Bacteria/Isabell da Culture, Blood No growth after 5 days of incubation. 03/07/2024 1:02 AM CDT DT Blood (Blood, Peripheral Draw) 03/01/2024 11:08 PM CDT 03/01/2024 11:26 PM CDT Comment:Specimen Source Site : Blood Ivory Paredes P.A.-C., M.S. LAB FARIHA ROBIOLOGY - GENERAL ORDERABLES Performing Organization Address City/[facility]/ZIP Co de Phone Number [facility] [address] [place] [address], [facility] DTL [facility] [address] [place] [address] * Invasive Line (03/01/2024 10:55 PM CDT) Narrative Gregorio Comer R.R.T., L.R.T. - 03/01/2024 10:55 PM CDT Gregorio Comer R.R.T., L.R.T. ? 03/01/2024 10:55 PM Invasive Line Performed by: Gregorio Comer R.R.T., L.R.T. Authorized by: Wes Person M.B.B.S. ?? [...] Wes Meng PROCEDURE/MINOR RANDOLPH RGICAL ORDERABLES * WA BRONCHOSCOPY W ALVEOLAR LAVAGE (03/01/2024 10:30 PM [...] PHYLICIA participated or performed the procedure. The quality compliance consultant participated in or was aware of the procedure. Ivory Paredes P.A.-C. M.S. PROCEDU RE/MINOR SURGICAL ORDERABLES * WA INTUB W ETT, LDA ANE ENDOTRACHEAL AIRWAY (03/01/2024 10:00 PM CDT) Narrative Tam Brower M.D. - 03/01/2024 10:00 PM CDT Ivory Paredes P.A.-C., M.SMay ? 03/01/2024 10:37 PM Intubation Performed by: Ivory Paredes P.A.-C. MMayS. Authorized by: Ivory Paredes P.A.-C. MEfe ?? Care team members present 1. Tam Brower M.D. Patient location during procedure: ICU / PCU PROCEDURE DETAILS: Mask difficulty assessment: easy mask Final airway type: video laryngoscope Laryngeal Manipulation: no ?? Final best view of glottic structures - Cormack/Lehane Score: grade 2A ETT location: oral VL device: glide scope Benld scope blade size: 4 Tube size: 7.5 [...] PHYLICIA participated or performed the procedure. The quality compliance consultant participated in or was aware of the procedure. Ivory Paredes P.A.-C. MEfe ANESTHE BANDAR ORDERABLES * (ABNORMAL) pH (03/01/2024 8:59 PM CDT) pH 7.29(L) 7.35 - 7.45 pH 03/01/2024 9:10 PM CDT [facility] Blood 03/01/2024 8:59 PM CDT 03/01/2024 9:07 PM CDT Ivory Paredes P.A.-C. M.S. LAB HIS TORICAL ORDERS [facility] [address] [place] [address], [facility] [address] [place] [address] * (TTE) 2D ECHO DOPPLER COLOR AND CONTRAST (03/01/2024 12:44 PM CDT) Pathologist [facility] Ejection Fraction 66 MC CV EIMS Mid-Ascending [...] Comment:Specimen Source Site : Sputum Erasmo Lloyd AKASH C.N.P., D.N.P. LAB MICROBIOLOGY - GENERAL ORDERABLES [facility] [address] [place] [address], [facility] [address] [place] [address] * CT Chest Angiogram and Pulmonary Arteries [...] or aspirationpneumonia. Erasmo Lloyd APRN, C.N.P., D.N.P. IM CT PROCEDURES * Respiratory Panel, PCR, [...] using the FDA-Cleared FilmArray Respiratory Panel 2.1 (Slingbox). Swab (Nasopharynx) 02/29/2024 9:12 AM CDT 02/29/2024 9:12 AM CDT Erasmo Lloyd APRN C.N.P., D.N.P. LAB MICROBIOLOGY - GENERAL ORDERABLES [facility] [address] [place] [address], [facility] DT [address] [place] [address] * Interpretation of Outside US Vascular (02/29/2024 6:05 AM CDT) Anatomical Region Laterality Modality Ultrasound RST LOS, Ultrasou nd ARZ LOS, Ultrasound FLA LOS, Procedural, Other, Vascular N/A Ultrasound Impressions 02/29/2024 10:22 AM CDT Positive for acute DVT in the mid to lower femoral vein through popliteal vein. Result discussed with BETO Nguyen ([id number]) by Dr. Schulte on 02/29/2024 at 0950 hours. Narrative 02/29/2024 10:22 AM CDT EXAM: ??INTERPRETATION OF OUTSIDE US VASCULAR. Bilateral lower extremity venous ultrasound performed on 02/28/2024 at outside facility. Interpretation provided without the benefit of real-time scanning or discussion with the ironer. COMPARISON: ??None FINDINGS: ?? RIGHT: The common [...] benefit of real-time scanning ordiscussion with the ironer. COMPARISON: None FINDINGS: RIGHT: The common femoral, [...] through poplitealvein. Result discussed with BETO Nguyen ([id number]) by Dr. Schulte on02/29/2024 at 0950 hours. Hayley Lvoe APRNAlexandra., Keren.N.P. IMG US PROCEDURES * US venous LE [...] System IMG US PROCEDURES Performing Organization Address [facility] [[email or web address]] Co de Phone Number IIMS NA * XR CHEST 1V PORTABLE-Outside Chest Xray (02/28/2024 11:30 AM CDT) 02/28/2024 11:3 0 AM CDT Narrative [facility] - 02/28/2024 12:17 PM CDT This order [...] DIAGNOSTIC IM AGING PROCEDURES Performing Organization Address [facility] [[email or web address]] Co de Phone Number IIMS NA * Reticulocytes (02/02/2024 11:03 AM CDT) Reticulocytes, B 1.76 0.60 - 2.71 % 02/02/2024 3:18 PM CDT [facility] Absolute Reticulocyte 63.7 30.4 - 110.9 x10(9)/L 02/02/2024 3:18 PM CDT [facility] Blood (Blood, Venous) 02/02/2024 11:03 AM CDT 02/02/2024 3:00 PM CDT Jose Martin Eaton M.D. LAB BLOOD ADD-ON [facility] [address] [place] [address], [facility] AUST [facility] [address] [place] [address] * (ABNORMAL) CBC with Differential, Blood (02/02/2024 [...] Jose Martin Eaton M.D. LAB BLOOD ADD-ON [facility] [address] [place] [address], [facility] FB60 [facility] [place] [address] [place] [address] * FL Swallow Function with Video and [...] Kline M.D. IMG FLUOROSCOPY PROC EDURES * Non-Endoscopic Tube Procedure (12/29/2023 1:23 PM CDT) 12/29/2023 1:23 PM CDT [facility]ressions [facility] 12/29/2023 1:52 PM CDT Post-op Diagnoses: ? - The PEG-J tube was dislodged and was removed and replaced with a 3.5 ? cm long, 22 Fr Avanos FARIHA-SMALL Low-profile PEG-J gastrostomy tube. ? - No specimens collected. Narrative [facility] [employer] - 12/29/2023 1:52 PM CDT Gary [...] to tube site or tube call ? [phone] Wednesday - Wednesday 7;30 am-4:30 pm or after hours, weekends, ? holidays call [facility] paper folding machine operator [phone] ask them to page ? [phone] and wait for MD to answer. May [...] Pablo Kline M.D. GI PROCEDURE ORDERAB LES CARMELITA DENSON NA * FL Fluoro Less Than 1 Hour (12/29/2023 1:19 PM CDT) Narrative [facility] LOS RST - 12/29/2023 1:20 PM CDT This exam does not require a radiologist review or interpretation. Please refer to the patient's medical record on this date for clinical details. Pedro Pablo LEA FLUOROSCOPY PROC EDURES Performing Organization Address City/[facility] [[email or web address]] Co de Phone Number [facility] LOS RST * (ABNORMAL) Venous Blood Gas and Electrolytes CG8+, POCT (12/28/2023 3:19 PM CDT) Only the most recent of2 resultswithin the time period is included. Pathologist [facility] Sample Site, POCT Venstick 12/28/2023 3:26 PM [...] M.S. LAB POCT ORD ERABLES - DEVICE [facility] [address] [place] [address], [facility] PCLX [facility] [address] [place] [address] PCSM [facility] [address] [place] [address] * EEG (12/28/2023 7:29 AM CDT) Narrative [...] Kline M.D. NEUROLOGY ORDERABLES Performing Organization Address [facility] de Phone Number MMODAL NA * (ABNORMAL) [...] M.D. LAB BLOOD ADD-ON Performing Organization Address [facility] de Phone Number [facility] [address] [place] [address], [facility] DTL [facility] [address] [place] [address] * Non-Radiology Image-Pulmonary And CC Medicine Image [...] RAD IMAGI NG PROCEDURES Performing Organization Address [facility] de Phone Number IIMS NA * Lactate, POCT (12/26/2023 11:54 PM CDT) Lactate, POCT 1.12 0.50 - 2.20 mmol/L 12/27/2023 12:10 AM CDT PCLX Sample Site, POCT Venstick 12/27/2023 12:10 AM CDT PCLX Blood 12/26/2023 11:5 4 PM CDT 12/27/2023 12:10 AM CDT Unknown Provider LAB POCT ORDERABLES - DEVICE POC [facility] [address] [place] [address], [facility] PCLX [facility] [address] [place] [address] * Feeding Tube Replacement (12/26/2023 9:36 PM [...] at the following links: For Healthcare Providers: https://www.fda.gov/media/188690/download For Patients: https://www.fda.gov/media/640209/download Infl A/B, SARS CoV-2, PCR, Source Swab, Nasopharynx 12/26/2023 7:56 PM CDT [facility] Swab (Nasopharynx) 12/26/2023 7:50 PM CDT 12/26/2023 7:56 PM CDT Jamia Lozano M.D. LAB MICROBIOLOGY - GENERAL ORDERABLES [facility] [address] [place] [address], [facility] STMA [facility] [address] [place] [address] * Bacterial Culture, Aerobic + Susceptibility, Urine (12/26/2023 7:37 PM CDT) Urine Culture No growth after 1 day of incubation. 12/28/2023 7:28 AM CDT DTL Urine (Urine, Midstream) 12/26/2023 7:37 PM CDT 12/26/2023 8:36 PM CDT Comment:Specimen Source Site : Urine Jamia Lozano M.D. LAB MICROBIOLOGY - GENERAL ORDERABLES Performing Organization Address [facility] [[email or web address]] Co de Phone Number [facility] [address] [place] [address], [facility] [address] [place] [address] * Dipstick, Urine (12/26/2023 7:07 PM CDT) [...] LAB URINE ORDERABLE S Performing Organization Address [facility] [[email or web address]] Co de Phone Number [facility] [address] [place] [address], [facility] [address] [place] [address] * Microscopic Automated (12/26/2023 7:07 PM CDT) Microscopy Normal 12/26/2023 7:54 PM CDT DTL RBC None Seen <3 /hpf 12/26/2023 7:54 PM CDT DTL WBC None Seen /hpf 12/26/2023 7:54 PM CDT DTL Comment: ----REFERENCE VALUE---- <4 ??(Males) <11 (Females) Urine 12/26/2023 7:07 PM CDT 12/26/2023 7:37 PM CDT Jamia Lozano M.D. LAB URINE ORDERABLE S [facility] [address] [place] [address], [facility] [address] [place] [address] * pH, Urine (12/26/2023 7:07 PM CDT) pH, U 7.0 4.5 - 8.0 12/26/2023 7:5 0 PM CDT DT Urine 12/26/2023 7:07 PM CDT 12/26/2023 7:37 PM CDT Jamia Lozano M.D. LAB URINE ORDERABLE S [facility] [address] [place] [address], [facility] [address] [place] [address] * Osmolality, Urine (12/26/2023 7:07 PM CDT) Osmolality, U 237 150 - 1150 mOsm/kg 12/26/2023 7:50 PM CDT DT Urine 12/26/2023 7:07 PM CDT 12/26/2023 7:37 PM CDT Jamia Lozano M.D. LAB URINE ORDERABLE S [facility] [address] [place] [address], [facility] [address] [place] [address] * (ABNORMAL) Urinalysis, with Microscopic: Urine, Catheter [...] Jamia Lozano M.D. LAB URINE ORDERABLE S [facility] [address] [place] [address], [facility] [address] [place] [address] * Dipstick, POCT, Urine (12/26/2023 7:06 PM CDT) Glucose, POCT, U Negative Negative mg/dL 12/26/2023 7:08 PM CDT PCED Ketone, POCT, U Negative Negative mg/dL 12/26/2023 7:08 PM CDT PCED Specific [place], POCT, U 1.015 1.005 - 1.030 12/26/2023 [...] LAB POCT ORDERABLES - DEVICE POC RST [facility] [address] [place] [address], [facility] PCED [facility] [address] [place] [address] * (ABNORMAL) Lactate for Sepsis with Reflex (12/26/2023 5:49 PM CDT) [facility] Lactate, P 2.3(H) 0.5 - 2.2 mmol/L 12/26/2023 6:25 PM CDT [facility] Blood (Blood, Venous) 12/26/2023 5:49 PM CDT 12/26/2023 6:12 PM CDT Jamia Lozano M.D. LAB BLOOD NON ADD-O N Performing Organization Address City/[facility]/ZIP Co de Phone Number [facility] [address] [place], [place] [address] STMA [facility] [address] [place] [address] * (ABNORMAL) Lipase (12/26/2023 5:49 PM CDT) [facility] Lipase, S 8(L) 13 - 60 U/L 12/26/2023 6: 49 PM CDT DTL Blood (Blood, Venous) 12/26/2023 5:49 PM CDT 12/26/2023 6:34 PM CDT Jamia Lozano M.D. LAB BLOOD ADD-ON Performing Organization Address City/[facility]/ZIP Co de Phone Number [facility] [address] [place] [address], [facility] DTL [facility] [address] [place] [address] * Vitamin B12 Assay (12/26/2023 5:48 PM CDT) [facility] Vitamin B12 Assay, [phone] - [...] Pedro Pablo Kline M.D. LAB BLOOD ADD-ON [facility] [employer] [facility] [address] [place] [address], [place] [facility] [address] [place] [address] from Last 3 Months Advance Directives For more information, please contact: [phone] * Full Code (Latest Code Status on [...] Discussed Discussed with thierry arias Care Teams Candy Maker Relationship Specialty Start Date End Date Elsewhere, Pcp PCP - General Family Medicine 06/24/18
--- OUTSIDE RECORDS SUMMARY | 2024-03-14 04:09 | XMS_ITS | Encounter Summary ---
Author Organization [facility] Address [address] [place] [address] Care Team Providers Care Automatic Silk Screen Printer Name Role Phone Elsewhere, Pcp Primary Care Provider Unavailabl e Encounter Details Date Type Department Care Team (Late st Contact Info) Description 03/13/2024 10:10 AM CDT Ancillary Procedure Department of Nursing Arrived Social History Tobacco Use Types Packs/Day Years Used Date Smoking Tobacco: Never Smokeless Tobacco: Never Alcohol Use Standard Drinks/Week Comments Never 0 (1 standard drink = 0.6 oz pur e alcohol) [facility] Utilities Answer Date Recorded In the past 12 months has e [employer], gas, oil, or water [email or web address] threatened to shut off services in your [...] declined 12/11/2021 How often do you attend jain or alevism serv ices? Patient declined 12/11/2021 Do you belong to any clubs o r organizations such as jain groups, unions, fraternal or athletic groups, or [...] Associated Diagnosis Comments NURSING IMAGE EXAM Routine 03/13/2024 10 :06 AM CDT documented in this encounter Results * Buttock/Sacrum-Nursing Image Exam (03/13/2024 10:06 AM CDT) 03/13/2024 10:0 3 AM CDT Narrative [facility] [...] on filedocumented in this encounter Care Teams Automatic Silk Screen Printer Relationship Specialty Start Date End Date Elsewhere, Pcp PCP - General Family Medicine 06/24/18 documented as of this encounter
--- OUTSIDE RECORDS SUMMARY | 2024-03-14 04:09 | XMS_ITS | Encounter Summary ---
Author Organization [facility] Address [address] [place] [address] Care Team Providers Care Licensed Pesticide Applicator Name Role Phone Elsewhere, Pcp Primary Care Provider Unavailabl e Encounter Details Date Type Department Care Team (Late st Contact Info) Description 03/13/2024 10:05 AM CDT Ancillary Procedure Department of Nursing Arrived Social History Tobacco Use Types Packs/Day Years Used Date Smoking Tobacco: Never Smokeless Tobacco: Never Alcohol Use Standard Drinks/Week Comments Never 0 (1 standard drink = 0.6 oz pur e alcohol) [facility] Utilities Answer Date Recorded In the past 12 months has e [employer], gas, oil, or water [employer] threatened to shut off services in your [...] declined 12/11/2021 How often do you attend lutheran or denominational serv ices? Patient declined 12/11/2021 Do you belong to any clubs o r organizations such as lutheran groups, unions, fraternal or athletic groups, or [...] and heating? Not hard at all 12/11/2021 [facility] - Occupational Stress [...] Comments NURSING IMAGE EXAM Routine 03/13/2024 10 :05 AM CDT documented in this encounter Results * Abdomen-Nursing Image Exam (03/13/2024 10:05 AM CDT) 03/13/2024 10:0 3 AM CDT [...] on filedocumented in this encounter Care Teams Licensed Pesticide Applicator Relationship Specialty Start Date End Date Elsewhere, Pcp PCP - General Family Medicine 06/24/18 documented as of this encounter
--- OUTSIDE RECORDS SUMMARY | 2024-03-14 04:09 | XMS_ITS ---
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 Treatments may have been administered in another system. Lifetime Dose Tracking * Chemical Lifetime Dose Automatic Entry Manual Entr y Radiation 399.56 mGy 399.56 mGy 0 mGy Fluoro Time 33.855 minutes 33.855 minutes 0 minutes Resolved Problems Problem Noted Date Diagnosed Date Resolved Date Hypoxia Sleep Related 06/27/20202019 Hypokalemia 06/27/2020 06/30/2020
--- OUTSIDE RECORDS SUMMARY | 2024-03-14 04:11 | XMS_ITS | Encounter Summary ---
Author Organization [facility] Address [address] [place] [id number] Care Team Providers Care Rivet Tapping Machine Operator Name Role Phone Elsewhere, Pcp Primary Care Provider Unavailabl e Encounter Details Date Type Department Care Team (Late Contact Info) Description 03/11/2024 1:33 PM CDT - 03/11/2024 4:50 PM CDT Surgery [facility] MAIN OR [address] [place] [phone] Aleks Hinkle M.D. [address] [place] [phone] EXPLORATION ABDOMINAL, cholecystectomy, sigmoidectomy, ileocolonic anastomosis, descending colostomy Social History Tobacco Use Types Packs/Day Years Used Date Smoking Tobacco: Never Smokeless Tobacco: Never Alcohol Use Standard Drinks/Week Comments Never 0 (1 standard drink = 0.6 oz pur e alcohol) [facility] Utilities Answer Date Recorded In the past 12 months has e ROXIMITY, gas, oil, or water [employer] threatened to shut off services in your [...] How often do you attend orthodoxy or methodist serv ices? Patient declined 12/11/2021 Do you [...] and heating? Not hard at all 12/11/2021 [facility] - Occupational [...] Sign Reading Time Taken Comments Blood Pressure 111/55 03/11/2024 12:23 PM CDT Pulse 86 03/11/2024 2:15 PM CDT Temperature 37 ??C (98.6 ??F) 03/11/2024 1:57 PM CDT Respiratory Rate 15 03/11/2024 2:15 PM CDT Oxygen Saturation 97% 03/11/2024 2:15 PM CDT Inhaled Oxygen Concentration - - Weight 70.7 kg (155 lb 13.8 oz) 024 12:00 AM CDT Height 156 cm (5' 1.42) 03/10/2024 1:09 PM CDT Body Mass Index 29.96 03/13/2024 9:12 AM CDT documented in this encounter Discharge Summaries * Tam Huang P.A.-C., M.S. - 03/10/2024 2:02 PM CDT SUBJECTIVE REASON FOR TRANSFER Transfer to general surgery service s/p abdominal surgery CONDITION AT TRANSFER: Stable, ill OBJECTIVE PHYSICAL EXAMINATION See physical exam from today's progress note ASSESSMENT / PLAN SUMMARY OF CARE Say Hilario is a 44 y.o. male patient with history of Macomb-Gastaut syndrome, developmental delay, ALL treated with chemoradiation, hx of lateral medullary stroke at age 12, seizures, who presents to [facility] Intensive Care unit via ambulance for further evaluation and management of acute respiratory failure in the setting of pneumonia. Patient presented to [facility] Emergency Department the morning of 02/28/2024 for evaluation of shortness for breath and hypotension. In the past 24 hours, patient has had increased secretions accompanied by lethargy and increased oxygen requirements from 1 L which is his normal at night to 2 L per nasal cannula. Of note, he was admitted on January 01, 2024 for aspiration pneumonia treated with ceftriaxone and doxycycline. Emergency department course Upon his presentation to the emergency department at [facility], patient was started on BiPAP for hypoxia. [...] to the medical intensive care unit at [facility] alert, two IVs in place, as well as a Gama catheter with approximately a 1000 cc of clear yellow urine. Medical intensive care unit course In the ICU, patient was transitioned from BiPAP to face mask oxygen. He initially required vasopressor support. He was started on doxycycline and ceftriaxone for community-acquired pneumonia versus aspiration pneumonia. He had a positive lower extremity ultrasound for DVT and was started on Eliquis. CT for PE negative for acute pulmonary embolism but showed bilateral multifocal opacities concerning for community-acquired pneumonia versus aspiration pneumonia. Patient was intubated the evening of 03/01 for concern for secretion clearance. Neurology was also consulted for encephalopathy. CT of the head revealed no structural abnormality. His symptoms were thought to be related to his acute illness and polypharmacy. Patient was also started on Bactrim for St enotrophomonas in the tracheal secretions Due to persistent encephalopathy despite without a clear explanation, EEG was completed which showed changes not unexpected given his Macomb-Gostout and anti- epileptic medications. MRI of the head was ordered on 03/06 and revealed non- contributory small 5 mm presumed meningioma about the left frontal convexity and stable appearance of presumed small cavernous hemangioma within the right cerebellarhemisphere. On 03/07/24, patient was observed opening his eyes occasionally. Due to concerns for abdominal distention, CT of the abdomen and pelvis was obtained revealing functional ileus. Tube feeds were held. His abdominal distention persisted and an orogastric tube was placed and hooked to low intermittentsuction --a large amount of gastric contents were removed. Abdominal x-ray was performed on 03/[address] abdomen and pelvis was performed on 03/10/2024 and confirmed large abdominal free air with possible defect near the GJ tube. TCGS was consulted and Mr. Hilario was taken for exploratory surgery. RECOMMENDATIONS/ CONSIDERATIONS: -Antibiotics including ceftriaxone, metronidazole, and fluconazole started this morning (allergy topenicillin so zosyn avoided) -PO medication held this morning (importantly his AEDs). Keppra transitioned to IV. Following operation, discuss with neurology resumption of his home anti epileptic drugs (pending ability to give POmeds). -Course of Bactrim to finish today for stenotrophomonas pneumonia -Apixaban held for OR today -NSS consulted for TPN administration, consider starting TPN following OR SUMMARY DIAGNOSES: Patient Active Problem List Diagnosis Ulcer Skin Chronic Leukemia Lymphocytic Acute Remission (HCC) Seizure (HCC) Macomb Gastaut Syndrome (HCC) Overgrowth Bacterial Small Bowel Pneumonia Dysphagia Aftercare Feeding Tube Cerebrovascular Disease Reflux Esophageal Severe Sepsis With Septic Shock (HCC) Nephrolithiasis Weakness General Brain Stem Stroke Syndrome Cannabis Use Unspecified Uncomplicated Intellectual Disability Profound Lethargy Acute Cystitis With Hematuria Anemia Macrocytic Cough Acute Rash Groin Jejunostomy Status Post (HCC) Delirium (not otherwise specified) Aspiration Pneumonia Secondary to Procedure Hematuria Cyst Renal Gastrostomy Status (HCC) Apnea Sleep Obstructive Hyponatremia Change Mental Status Acute Respiratory Failure With Hypoxia (HCC) Acute Embolism And Thrombosis Of Left Femoral Vein (HCC) Coma ([facility]) documented in this encounter Discharge Instructions * Discharge Instr - Diet* Fela Mann RDN, LD - 03/01/2024 2:28 PM CDT NUTRITION Summary provided by: Fela Mann RDN, LD Date completed: 03/01/2024 Oral diet: {Oral diet:54935} Feeding tube information: Transgastric Jejunal 22 [facility] TGJ (transgastric jejunal) *Do Not Rotate* Who placed the tube: [facility] Date of tube placement: December 29, 2023 To maintain enteral access the patient's feeding tube should be replaced at regular intervals. Recommended replacement for feeding tube with internal balloon is every 3-5 months. Tube feeding program: Formula: Promote Feeding method: Continuous pump controlled Feeding schedule/goal: mL/hour over hours. Water flushes: {Water flushes:85687} Vitamin/mineral supplementation: {Vitamin/mineral supplementation:13233} This program provides calories and grams protein per day. Monitor your weight 1-2 time(s) per week. Anthropometrics: Weight: 66.9 kg Height: 156 cm BMI (Calculated): 27.5 kg/m?? Estimated Needs: Total Calorie Needs: 4480-6722 calories/day Method to Estimate Energy Needs: kcal/kg (22-25 kcal/kg) Weight Used for Equation Calculations: 66.9 kg Total Protein Needs: 80 - 100 grams/day Method to Estimate Protein Needs (g/kg): 1.2 - 1.5 gm/kg Weight Used to Calculate Protein Needs (Kg): 66.9 kg Your Durable Medical Equipment (DME)/Infusion company for tube feeding supplies is: [place]: ; [employer] . Please contact this DME company with questions about delivery or re-ordering your supplies and formula. To schedule an appointment with Home Enteral Nutrition team, call . For questions about the recommended tube feeding program and care of your tube, contact Home Enteral Nutrition clinic department. Wednesday - Wednesday, 8 a.m. - 4 p.m. documented in this encounter Progress Notes * Lauren Palencia M.S., CCC-OUTDOOR LANDSCAPE ARCHITECT - 03/13/2024 4:57 PM CDT 03/13/24 1656 Reason Therapy Missed Reason Therapy Missed Medical hold (Patient was not appropriate for speech this date due to concern for ongoing seizures and ongoing sedating medication. OUTDOOR LANDSCAPE ARCHITECT will continue to follow [phone]) * Shanna Boudreaux P.T., Keren.P.TMay, KUNAL - 03/13/2024 1:09 PM CDT 03/13/24 1308 Reason Therapy Missed Reason Therapy Missed Medical hold (Communicated with OT and RN this AM. Patient remains intubated and minimally responsive, ongoing concern for seizures. we will hold therapy today and check back as able.) * Celi Cueva R.N., C.W.C.N. - 03/13/2024 12:31 PM CDT [facility] Wound RN following up to assess Say Hilario skin alterations. Wound assessment, pain, and Javier score noted in the flowsheet. The patient unable to provide consent to photography due to sedation. Photograph obtained for clinical purposes only and are available in QREADS. History: Per provider note, the patient was admitted to the hospital for acute hypoxemic respiratory failure secondary to community-acquired versus aspiration pneumonia. The patient's significant history includes cerebrovascular disease, Ayaan Gastaut Syndrome, chronic dysphagia with PEJ placement, and intellectual disability. Assessment: The groin folds are intact and mildly pink, the Friction and moisture to the buttocks appears to be improving per photo review although satellite lesions are noted to the posterior thighs. There is venous congestion noted with purple discoloration to the buttocks that is fully blanchable. The affected area around the GJ Tube has improved with now mildly pink erythema and less drainagenoted around G-J tube. Will continue acetic acid soaks to all areas but decreasing to the moderate IAD protocol and adding nystatin powder between soaks. 03/13/24 1000 Pain Assessment Resp Rate 12 Wound 02/28/24 Friction Injury Buttocks with Incontinence Associated Dermatitis to Bilateral Groin Date First Assessed/Time First Assessed: 02/28/24 1600 Present on Original Admission: Yes Wound Approximate Age at First Assessment: 1 month Primary Wound Type: Friction Injury Location: Buttocks Wound Description (Comments): with Incontinence A... *Shape Irregular *Wound Bed Partial thickness;Red;Purple (venous congestion) Tissue Exposed None Odor None *Exudate Amount Scant Drainage Description Serous Ana-wound Assessment Blanchable erythema;Edgewood;Rash Treatments Cleansed Periwound Treatment Cleansed (Comment) Wound Cleansed with Foam cleanser *Primary Dressing Acetic acid (nystatin cream (will dc hydrocortisone) with soaks) *Primary Dressing Frequency of Change 2x/day & PRN Primary Dressing Changed Changed Primary Dressing Status Intact *Secondary Dressing Other (Comment) (nystatin powder between soaks) *Secondary Dressing Frequency of Change 2x/day & PRN Changed by Wound property field inspector Ongoing management Nursing;Wound/patternmaker bench Wound 03/12/23 Other Moisture Associated Skin Damage Abdomen Left;Lower GJ-Tube Date First Assessed/Time First Assessed: 03/12/23 0900 Present on Original Admission: Yes Wound Approximate Age at First Assessment: Unknown Primary Wound Type: Other Moisture Associated Skin Damage Location: Abdomen Wound Location Orientation: ... *Shape Irregular *Wound Bed Closed;Edgewood Tissue Exposed None Odor None *Exudate Amount Small Drainage Description Yellow Ana-wound Assessment Fragile;[place]wood Treatments Cleansed Periwound Treatment Cleansed (Comment) Wound Cleansed with Foam cleanser *Primary Dressing Acetic acid (nystatin cream with soaks (hydrocortisone to be dc'd)) *Primary Dressing Frequency of Change 2x/day & PRN Primary Dressing Changed Changed Primary Dressing Status Intact *Secondary Dressing Foam (Mepilex Up between soaks) *Secondary Dressing Frequency of Change 2x/day & PRN Changed by Wound property field inspector Ongoing management Nursing;Wound/patternmaker bench Focused assessment completed DRESSING RECOMMENDATIONS: #1 Friction Injury Buttocks with Incontinence Associated Dermatitis to Bilateral Groin #2 Moisture Associated Skin Damage Abdomen Left;Lower GJ-Tube Moderate IAD/ITD with yeast: -Cleanse the area with foam cleanser and dampened WypAlls, being sure to remove all previous product prior to next application. -Apply a nickel thick layer of Nystatin cream to the affected area(s). -Moisten a WypAll with 0.25% Acetic Acid. Ensure that is not dripping wet. Lay over the affected area(s). -Leave in place for two hours. -Repeat twice daily. In Between Treatments: To Groin/Buttocks: -Apply a thin layer of Nystatin powder to affected skin fold area(s), spread evenly throughout, dusting off any excess powder. To PEJ: -Apply a Mepilex Up under PEJ. Recommended interventions for pressure redistribution and shear [...] prevention. Change every 3 days and PRN. Utilize Isolibrium mattress with InTouch Frame (standard for ICU). Recommended interventions for moisture control: InterDry?? Ag placed between folds. Allow at least 2 inches of fabric exposed to air on at least one side of the skin fold for moisture evaporation. Can be used up to 5 days unless soiled with stool or urine. Do not rinse with water. Utilize the breathable incontinence underpads while in bed. Adult briefs should only be worn while ambulating or in the chair. Cleanse with foaming cleanser or wipes after each incontinence episode and for routine hygiene cares. Utilize Isolibrium mattress with InTouch Frame (standard for ICU). Consult recommendations: NA Education: Discussed the plan of care with the patient and nursing, bedside nurse in agreement withplan and no further concerns at this time. The WOC RN will continue to see the patient, contact or reconsult for worsening wounds or new wounds. Electronically signed by: Celi Cueva R.N., Marleni 03/13/24 12:31 PM CDT * Ross Voss M.D. - 03/13/2024 11:38 AM CDT SUBJECTIVE Postop Day: 2 Days Post-Op Hospital Day: LOS: 14 days No overnight events except for increase in dose of NE from 0.04 to 0.09. Also put on 0.04 of vasopressin. OBJECTIVE VITAL SIGNS Temperature: [36.7 ??C-38.3 ??C] 38.3 ??C Heart Rate: [62-101] 62 Resp Rate: [12-25] 12 Blood Pressure: (100-141)/(47-61) 117/49 Arterial Line BP: (87-170)/(42-79) 139/69 FiO2 (%): [26 %-30 %] 30 % SpO2: [91 %-100 %] 96 % Height: [156 cm] 156 cm Pulse Rate: [62-105] 62 I/O Intake/Output Last 24 Hours: Intake/Output Summary (Last 24 hours) at 03/13/2024 1141 Last data filed at 03/13/2024 1100 Gross per 24 hour Intake 5138.35 ml Output 3474 ml Net 1664.35 ml DIAGNOSTICS Reviewed. PHYSICAL EXAM Constitutional General: He is sleeping. Interventions: He is sedated and intubated. Pulmonary Effort: He is intubated. Abdominal General: The ostomy site is clean. Palpations: Abdomen is soft. Assessment ASSESSMENT AND PLAN #1 Leukemia Lymphocytic Acute Remission (HCC) #2 Seizure (HCC) #3 Macomb Gastaut Syndrome (HCC) #4 Pneumonia #5 Dysphagia #6 Cerebrovascular Disease #7 Reflux Esophageal #8 Severe Sepsis With Septic Shock (HCC) #9 Nephrolithiasis #10 Brain Stem Stroke Syndrome #11 Jejunostomy Status Post (HCC) #12 Delirium (not otherwise specified) #13 Gastrostomy Status (HCC) #14 Apnea Sleep Obstructive #15 Hyponatremia #16 Acute Respiratory Failure With Hypoxia (HCC) #17 Acute Embolism And Thrombosis Of Left Femoral Vein (HCC) #18 Coma (HCC) Mr. Hilario is a 44 year old male with a PMH of Ayaan-Gastaut syndrome, developmental delay, ALL treated with chemoradiation, hx of lateral medullary stroke at age 12, and seizures who presented to OSH ED with shortness of breath and hypotension. He was admitted to the MICU and intubated on 03/01. Neurology was consulted for encephalopathy. CT of the head revealed no structural abnormality. His symptoms were thought to be related to his acute illness and polypharmacy. Due to persistent encephalopathy without a clear explanation, EEG was completed which showed changes not unexpected given his Ayaan-Gostout and anti-epileptic medications. MRI of the head was ordered on 03/06 and revealed non-contributory small 5 mm presumed meningioma about the left frontal convexity and stable appearance of presumed small cavernous hemangioma within the right cerebellar hemisphere. -Neuro critical care team recommended IV Keppra, propofol and ketamine as seizure prophylaxis whilehis oral anti-epileptic meds are held -Epilepsy Dominguez service consulted following along to assist with complex medication therapy for Macomb-Gastaut syndrome On 03/07 noted to have abdominal distention, CT of the abdomen and pelvis was obtained revealing functional ileus. Tube feeds were held. OG was placed with a large amount of gastric drainage with placement. 03/10: HSS consulted by MICU. Abdominal x-ray possible pneumoperitoneum. CT abdomen and pelvis confirmed free air with possible defect near the GJ tube. Proceeded to OR and underwent right hemicolectomy for cecal perforation, mobilization of gallbladder, left in discontinuity, packing (quick clot, lap pad), and temporary abdominal closure. Aborted and closed due to coagulapathy. 03/11: OR Removal of ABThera, Cholecystectomy, Sigmoid colectomy, Ileocolonic anastomosis, End descending colostomy, 2 abdominal TAMARA drains-Superior right at gallbladder fossa, inferior right in pelvis, one subcu drain. Fascia closed, skin closed. -Continue atbx: ceftriaxone, flagyl, stop date 03/15 -NPO, TPN for nutrition while awaiting return of bowel function -GJ capped 03/12: SICU in discussion with family about trach this week as intubated since 03/01. Attempting to wean pressors, and vent today. Keep sedated. Will continue to await return of bowel function. 03/13: Unable to wean pressors. Neurology recommended changing phenobarbital as it can precipitate ileus. PLAN: - CT scan if hemodynamic status doesn't improve. - Change phenobarbital to another AED if no ROBF today (consult neurology). Patient is being cared for by the HSS-B team. Please page [phone] (S-B) with any questions. Plan and assessment were discussed with Dr. Cruz, who was in agreement. * Adriana Sage D.O. - 03/13/2024 9:31 AM CDT SUBJECTIVE Pt seen in follow-up in [facility]. He is followed by Epilepsy, who added phenobarbital to his regimen while he cannot take enteral medications. His family notes he had a couple clinical seizures overnight. This was an improvement compared to earlier yesterday when he had clustered. OBJECTIVE I have reviewed the current vital sign data as applicable. PHYSICAL EXAM He received phenobarbital 30 minutes prior to my evaluation. He was very somnolent, appeared to be sleeping. According to his family, he opens his eyes at times. Gaze midline, pupils equal and reactive. DIAGNOSTICS I have reviewed relevant laboratory, imaging, and other diagnostics as applicable. ASSESSMENT / PLAN #1 Break through seizures #2 Macomb Gastaut Syndrome #3 Ileus with colon perforation s/p sigmoid colectomy, ileocolonic anastomosis, end colostomy #4 TPN #5 Aspiration pneumonia #6 Dysphagia on detention tube feeds via gastrojejunal tube #7 History of ALL #8 History of lateral medullary stroke #9 Encephalopathy secondary to toxic metabolic factors We are holding many of his home antiseizure medications because they are enteral only. His current antiseizure medication regimen consists of levetiracetam 2000 mg BID IV, lacosamide 200mg BID IV, lorazepam 2 mg q6 hours IV, and phenobarbital 50 mg IV TID, which was just added yesterday. It should be noted that phenobarbital can cause a significant ileus. I discussed this with a memberof the TCGS team. If they think it should not be used, we can discuss with epilepsy if there is an alternative to replace it with. Will follow along. Discussed with his family at bedside. Call [phone] with questions/concerns. * Camelia Faustin R.N., EDUAR - 03/13/2024 9:28 AM CDT SUBJECTIVE REASON FOR VISIT Postoperative visit Patient Coping: Patient was not teachable at this time and intubated. Patient has developmental delay and his parents are his caregivers. They were present at bedside during change. WOC RN briefly discussed stoma appearance, diet, and frequency of pouch change. Per his parents he is sensitive to tape and breaks out in hives. OBJECTIVE Physical Exam Ostomy (NEW) Colostomy Descending LLQ (Active) Site Assessment Red;Retracted Stoma Size 1-3/8 x 1-3/4 Skin Assessment Sutures intact Skin Care Water Pouching System (Stomal Appliance) Status Changed Changed by Wound property field inspector Pouching System Removed OR system, urostomy pouch Pouching System [employer] [place] #[id number], [id number] Ongoing management Wound/patternmaker bench Output Description None Stool Output (mL) 0 mL ASSESSMENT / PLAN EDUCATION STATUS Education not started at today's visit. PLAN WOC nurse continuing to follow. WOC RN will return tomorrow to check seal if output. Page [facility] [phone] M-F 6:30AM-2:30PM with questions or leakage issues. Wednesday pager [phone] 8:00AM-2:30PM. * Jennifer Mims M.B., Ch.B. - 03/13/2024 9:14 AM CDT SUBJECTIVE Mr. Hilario was seen with the Nutrition Support Team. OBJECTIVE VITAL SIGNS Temperature: [36.7 ??C-38.3 ??C] 38.3 ??C Heart Rate: [72-101] 80 Resp Rate: [12-20] 12 Blood Pressure: (100-141)/(47-61) 117/49 Arterial Line BP: (87-157)/(42-69) 107/50 FiO2 (%): [26 %] 26 % SpO2: [91 %-100 %] 93 % Height: [156 cm] 156 cm Pulse Rate: [73-105] 80 Intake/Output Summary (Last 24 hours) at 03/13/2024 0915 Last data filed at 03/13/2024 0800 Gross per 24 hour Intake 4674.7 ml Output 3446 ml Net 1228.7 ml PHYSICAL EXAM Constitutional Comments: Intubated and ventilated Cardiovascular Comments: More puffiness of the hands and feet per his parents Abdominal Comments: Low-profile transgastric jejunostomy tube Vitals reviewed DIAGNOSTICS Labs: Results from last 7 days Lab Units 03/13/24 0435 SODIUM mmol/L 141 POTASSIUM mmol/L 3.8 CHLORIDE mmol/L 106 CREATININE mg/dL 0.32* ESTIMATED GFR EGFR mL/min/BSA >90 BUN mg/dL 16 GLUCOSE S mg/dL 100 CALCIUM mg/dL 8.1* MAGNESIUM mg/dL 1.9 PHOSPHORUS INORGANIC mg/dL 3.5 ALBUMIN g/dL 2.7* BILIRUBIN TOTAL mg/dL 0.4 ALK PHOS U/L 65 ALT U/L 41 AST U/L 63* Radiology: DX Chest Portable 1 View Result Date: 03/13/2024 Impression: Since 03/12/2024, decreasing but persistent patchy airspace opacities greatest in the mid and upper lungs. Increased small layering left pleural effusion. The remainder is not significantly changed. Small right pleural effusion. Bibasilar atelectasis. ETT tip in the mid intrathoracic trachea. Right arm PICC with tip near the superior cavoatrial junction. Subdiaphragmatic enteric tube. ASSESSMENT / PLAN #1 Leukemia Lymphocytic Acute Remission (HCC) #2 Seizure ([facility]) #3 Ayaan Gastaut Syndrome (HCC) #4 Pneumonia #5 Dysphagia #6 Cerebrovascular Disease #7 Reflux Esophageal #8 Severe Sepsis With Septic Shock ([facility]) #9 Nephrolithiasis #10 Brain Stem Stroke Syndrome #11 Jejunostomy Status Post ([facility]) #12 Delirium (not otherwise specified) #13 Gastrostomy Status ([facility]) #14 Apnea Sleep Obstructive #15 Hyponatremia #16 Acute Respiratory Failure With Hypoxia (HCC) #17 Acute Embolism And Thrombosis Of Left Femoral Vein (HCC) #18 Coma (HCC) Nutrition Needs: Height: 156 cm Admission Weight: 69.4 kg (02/28/2024) Current Weight: 70.7 kg BMI (Calculated): 29.1 kg/m?? Total Calorie Needs: 5535-2235 (HB Basal and 20-25 kcals/kg) calories/day Method to Estimate Energy Needs: [place] (Basal) Weight Used for Equation Calculations: 69.4 kg Total Protein Needs: 83 - 104 grams/day Method to Estimate Protein Needs (g/kg): 1.2 - 1.5 gm/kg Weight Used to Calculate Protein Needs (Kg): 69.4 kg ASSESSMENT: Mr. Hilario is hospital day 14. Postoperative day two following right hemicolectomy for perforated cecal volvulus, cholecystectomy, sigmoid colectomy, ileocolonic anastomosis, and end colostomy. Some resumption of gut function per nurse. NG output still considerable. Current Parenteral Nutrition Program: Wt Readings from Last 1 Encounters: 03/10/24 70.7 kg Volume: 1100 mL/day Dextrose: 200 g/day Amino Acids: 105 g/day Lipid Emulsion: 40 g/day Calories: 1610 kcal/day RECOMMENDATIONS: Increase SMOF lipid to 50 g Remove thiamine PN is already in minimum volume formulation, noting that the patient is receiving diuresis with intravenous furosemide. Will continue to follow. Please call [facility]SS pager [phone] with any additional questions. * Paul Lee, D., R.Ph., [facility] - 03/13/2024 8:39 AM CDT Pharmacist Progress Note HPI: 44 y.o. male. Admitted on 02/27 for acute hypoxemic respiratory secondary to community acquiredpneumonia. 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 Continues IV lacosamide, levetiracetam, phenobarbital, and lorazepam(julio) Family will provide guidance on when to use rescue benzodiazepines vs extra 200 mg of Keppra if needed. Neuro guiding antiepileptic drug levels and if adjustments are needed CV: NS and HD supported by NE Resp: ETT on spont 30% Hem/Vasc: Acute LLE DVT: Holding full dose a/c given OR(last 03/09), utilizing SQH until ok to resume apixaban. S/p multiple transfusions in the past couple of days. TEG deranged despite multiple blood products, no longer chasing this Neph: BL Scr ~0.3-0.4. Scr appears to be at BL, last cyst c 1.2 on 03/10 suggesting eGFR ~60 insteadof eCrCl ~300. UOP ranging 10-100/hr. Lytes ok ID: Afeb for past 24h and WBC WNL. 02/28 sputum showing yeast and Steno. NGTD since. New blood/sputum cxs pending. D4 ceftriax/metro for IAI coverage, source control as of 03/11. Adding vancomycin and caspofungin today. Has tolerated ceftriax despite documented AGEP/SJS to Augmentin. S/p Cefepime on 03/02, doxy 02/27-03/02, and SMX/TMP 03/03-03/10 for the Steno GI/Hepatic/Nutrition/Endocrine: OG and G/J tubes in place. NPO with functional ileus. On 03/10 foundfree abdominal air, s/p lap converted to open abd explore with right monica-colectomy for cecal volvulus and cecal perforation, left in discont. Return to OR on 03/11 with cholecystectomy, sigmoid colectomy, ileocolonic anastomosis, end colostomy and drain placement(2) with ~20-25/hr output. NSS following for CPN. Glucose <180 Prophylaxis: SQH, PPI(GLOBAL LOGISTICS MANAGER), chlorhex ASSESSMENT / PLAN History of complex seizure disorder with regular breakthrough seizures. Neurology following with regimen transitioned to IV: lacosamide, levetiracetam, phenobarbital(load followed by TID dosing), and lorazepam. Converted propofol to phenobarbital Unable to convert to IV: clobazam, felbamate, lamotrigine, or rufinamide. Free air in abdomen with cecal perforation. S/p laparoscopic converted to open abdominal exploration with right monica-colectomy on 03/10. S/p abdominal exploration with cholecystectomy, sigmoidectomy, ileocolonic anastomosis, and descending colostomy on 03/11 Bowel back in continuity, still NPO, holding all enteral medications and feeds NSS following for CPN, was off SMOF lipids while on propofol ID: IAI and new concern for pneumonia On ceftriaxone/metronidazole until 03/15 for the IAI. Escalating ceftriaxone to cefepime and adding vancomycin and caspofungin for new concern for pneumonia vs IAI source. MRSA nasal swab pending New/acute LLE DVT Holding apixaban in context of recent surgeries. Utilizing subcut heparin for prophylaxis until able to restart apixaban. Pharmacy Specific Dosing Protocols and Consultations: Pharmacist Antimicrobial Dosing Indication: Pneumonia and Intra-abdominal infection Antibiotics: Cefepime, Vancomycin (10-20 mcg/mL), Metronidazole, and Caspofungin Plan to continue the ceftriaxone at 2gm q24h and metronidazole at 500mg q8h. Adding caspofungin at 70mg load followed by 50mg q24h starting later today at 1800. Starting vancomycin with load of 20mg/kg actual BW x1 followed by 1250mg q8h based on the eGFR from the improved cystatin C of 0.9 suggesting an eGFR ~90ml/min today. Paul Lee PharmElsy., R.Ph., [facility] Pager [phone] * Samuel Belle APRN, C.N.P. - 03/13/2024 4:53 AM CDT SUBJECTIVE Brief Summary: Mr. Hilario is a 44 year old male with a PMH of Ayaan-Gastaut syndrome, developmental delay, ALL treated with chemoradiation, hx of lateral medullary stroke at age 12, and seizures who presented to OSH ED with shortness of breath and hypotension. He was admitted to the MICU. Patientwas utilizing BiPAP for respiratory failure and required intubated on 03/01 due to concern for secretion clearance. He was requiring vasopressors. He is s/p courses of doxycycline, ceftriaxone, and bactrim for pneumonia. Neurology was consulted for encephalopathy. CT of the head revealed no structural abnormality. His symptoms were thought to be related to his acute illness and polypharmacy. Due to persistent encephalopathy without a clear explanation, EEG was completed which showed changes not unexpected given his Macomb-Gostout and anti-epileptic medications. MRI of the head was ordered on 03/06 and revealed non-contributory small 5 mm presumed meningioma about the left frontal convexity and stable appearance of presumed small cavernous hemangioma within the right cerebellar hemisphere. Due to concerns for abdominal distention, CT of the abdomen and pelvis was obtained 03/07 revealing a functional ileus. Tube feeds were held. His abdominal distention persisted and an orogastric tube was placed and hooked to low intermittent suction --a large amount of gastric contents were removed.Abdominal x-ray was performed on 03/[address] abdomen and pelvis was performed on 03/10/2024 and confirmed large abdominal free air with possible defect near the GJ tube. HSS was consulted and he proceeded to the OR. He was admitted to the SICU postoperatively for ongoing management. PROCEDURES: - s/p laparoscopic converted to open exploration, right hemicolectomy for cecal perforation, mobilization of gallbladder, discontinuity, packing (quick clot, lap pad), TAC (03/10) - s/p ex lap, sigmoid colectomy, ileocolonic anastomosis, end descending colostomy, TAMARA x 2 (R superior gallbladder fossa, R inferior pelvis), subq TAMARA, fascia and skin closure (03/11) Interval Events: - patient seen and examined, chart reviewed - discussed with Dr. Matson and SICU team on multidisciplinary team - remains intubated OBJECTIVE I have reviewed the current vital sign data as applicable. VITAL SIGNS Temperature: [36.7 ??C-38.1 ??C] 37.4 ??C Heart Rate: [72-101] 87 Resp Rate: [15-20] 15 Blood Pressure: (100-141)/(50-61) 100/50 Arterial Line BP: (85-157)/(42-69) 117/47 FiO2 (%): [26 %] 26 % SpO2: [91 %-100 %] 99 % Pulse Rate: [73-105] 87 I/O last 3 completed shifts: In: 8140.6 [Enteric (NG/OG) Tube:270] Out: 4555.5 [Urine:1882; Emesis or Enteric Tube:1700; Drains:848.5; Stool:125] PHYSICAL EXAM Physical Exam General: no acute distress Neurologic: PERRLA, anicteric sclera Cardiovascular: S1, S2. No murmur. Regular rate, rhythm. Cap refill < 3 seconds Pulmonary: lung sounds clear bilaterally, no wheeze, rales, rhonchi. Non labored. ETT secured, trachea midline. Gastroenterology: bowel sounds absent. Soft, non tender. No rebound, guarding, masses. Ostomy with sweat. TAMARA x 3, serosang. Extremities: 2-3 + generalized peripheral edema. GUZMAN. Pedal pulses 2 + bilaterally. Skin: no rashes, sores, ulcerations. Incision midline with dressing DIAGNOSTICS I have reviewed relevant laboratory, imaging, and other diagnostics as applicable. ASSESSMENT / PLAN PLAN BY SYSTEMS: HEMODYNAMICS/CV: - HR: 80-90; SBP: 110-130; MAP: > 65 - vasopressors: none - lactate: 0.8 (1) - EKG: SR - ECHO (03/01/2024): normal LV size, no regional wall motion abnormalities, LVEF 66% normal LV filling pressure, normal RV size, borderline reduced systolic function, RVSP 34, [id number] tricuspid valve regurgitation, tiny posterior pericardial effusion - PPV single digits, does not drop BP with alveolar recruitment maneuver PLAN: no changes, continue MAP > 65 NEUROLOGIC: - GCS: 6 T; RASS: - 4; CAM ICU: unable - pain medications: fentanyl infusion, currently @ 25 mcg/hr - sleep: none - delirium: none - sedation: none - sedation vacation: no - Epilepsy Dominguez service consulted to assist with complex medication therapy for LGS RECOMMENDATIONS: - levetiracetam 2000 mg BID IV and lacosamide 200 mg BID IV, given phenobarb load and currently on 50 mg IV TID, ativan 2 mg IV Q6H - If there is still a concern after this phenobarb loading dose, another loading dose of 10mg/kg ofphenobarbital could be given (for a total loading dose of 20 mg/kg). If this is unsuccessful, then we would consider whether initiating prolonged EEG may be helpful in making recommendations or whether we should load and start valproic acid. - If medications via the GJ tube are held for longer than 7 days, then we should consider a titration when restarting the lamotrigine, as opposed to just reinitiating his home dose due to a risk of Ren's Anthony Syndrome. 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, but this was due to a reaction to an antibiotic and not due to a reaction to an antiseizure medication PLAN: continue sedation and IV AED for now PULMONARY: - vent settings: CMV 15, 330, PEEP 12, 0.26 - SBT: yes - O2 sats 96-100% - ABG: pending - CXR: pending - continue aggressive pulmonary hygiene - patient intubated since 03/01, plans for tracheostomy in the coming days PLAN: plan for trach, wean vent to SPONT as able RENAL: - I/O: + 9.6 L since admission; + 1.2 L yesterday - UOP: 1.4 L in the past 24 hours - Gama: yes - mIVF: TPN @ 45 mL/hr - given lasix 20 mg IV x 1 overnight given, reasonable response, would consider lasix 40 mg IV today PLAN: consider diuresis, continue to follow volume status closely, continue to follow renal function, electrolytes, and UOP closely ID: - Tmax: 37.4 - WBC: 7.3 (8.2, 10.1, 9.6) - antibiotics: ceftriaxone, flagyl, planned stop date 03/15 - cultures: - see micro PLAN: complete course of antibiotics, follow WBC and fever curve HEME: - Hgb: 8.3 (8.4, 7.7, 8.4, 9.8, 10) - Plts: 247 (204) - INR: 1.4 (1.7) - patient appears to have ongoing coagulopathy with abnormal TEG and inappropriate response to PRBC - given vitamin K 5 mg IV x 1 overnight - given 2 units FFP, 1 cryo, and 1 unit PRBC overnight PLAN: follow up morning CBC, TEG, apixaban anti Xa level VASCULAR ACCESS: - PIV - R PICC - L rad art line GI/NUTRITION: - NGT: LCS - GJ tube capped, redness noted surrounding, WOC consulted and following - diet: NPO - started on TPN for nutrition, currently no lipids given propofol - bowel regimen: none - drains: - 1 (gallbladder fossa): 50 - 2 (pelvis): 470 - 3 (subq): 26 PLAN: await return of bowel function, continue TPN ENDOCRINE: - glucose: stable on BMP - insulin: none - steroids: none PLAN: goal glucose < 180, currently no need for insulin MUSCULOSKELETAL: - PT/OT consulted - activity: mobilize, no contraindications SKIN: - repositioning per nursing - midline incision with surgical dressing: management per nursing and primary surgical team - WOC nurse consulted and following PROPHYLAXIS: - DVT: heparin 5000 Q8H - GI: pantoprazole 40 mg IV daily VENTILATOR PROPHYLAXIS: - HOB elevated: yes - chlorhexidine BID: yes CODE STATUS: - FULL CODE DISPOSITION: - SICU #1 Leukemia Lymphocytic Acute Remission (HCC) #2 Seizure (HCC) #3 Macomb Gastaut Syndrome (HCC) #4 Pneumonia #5 Dysphagia #6 Cerebrovascular Disease #7 Reflux Esophageal #8 Severe Sepsis With Septic Shock (HCC) #9 Nephrolithiasis #10 Brain Stem Stroke Syndrome #11 Jejunostomy Status Post (HCC) #12 Delirium (not otherwise specified) #13 Gastrostomy Status (HCC) #14 Apnea Sleep Obstructive #15 Hyponatremia #16 Acute Respiratory Failure With Hypoxia (HCC) #17 Acute Embolism And Thrombosis Of Left Femoral Vein (HCC) #18 Coma (HCC) Associated attestation - Dylan Matson M.D. - 03/13/2024 6:20 PM CDT I reviewed the resident/fellow's note and agree with the documented findings and plan of care. The reason the patient is critically ill and the nature of the treatment and management provided by the teaching physician () to manage the critically ill patient is: Shock state requiring pressors. Respiratory failure requiring mechanical ventilation. Sepsis. The patient was critically ill during the time that I saw the patient. My Critical Care Time excluding procedures was 45 minutes. 44-year-old male with pneumonia and 3 weeks of mechanical ventilation develop cecal perforation from cecal volvulus, coincident with this he had a sigmoid volvulus, and cholecystitis. He would temporary abdominal closure for coagulopathy with coagulopathic bleeding from the liver during attempted ch olecystectomy. He has had completion cholecystectomy, right hemicolectomy with ileocolonic anastomosis and descending colostomy. Abdomen is now closed. He remains on pressors of norepinephrine and vasopressin. He remains on mechanical ventilation. Chest x-ray shows further opacification of bilateral lower lungs. Peep has been increased to 12 and now to 15. Physical examination: Blood pressure (!) 117/49, pulse 65, temperature 36.9 ??C, temperature source Axillary, resp. rate 15, height 156 cm, weight 70.7 kg, SpO2 97%. Intubated and sedated. With ventilator recruitment maneuver he does not drop his blood pressure Extremities warm and well perfused Chest is clear Heart regular Abdomen with healthy stoma. Absent bowel sounds. Impression/plan: Patient is stable on the ventilator. We have increased PEEP to see if we can reverse atelectasis oropacity due to pneumonia. He will remain on broad-spectrum antibiotics both for his pneumonia as well as an abdominal source. Ceftriaxone is being switched to cefepime to provide better Pseudomonas coverage given history is stenotrophomonas. Antiseizure regimen has been modified as per neurology given lack of reliable enteral absorption. He has received the test dose of Lasix and had an excellentresponse suggesting that he is volume replete. We will gently cut back fluids and gently diurese. He should have a postop day 5 CT with enteric contrast to look for evidence of intra-abdominal abscess or anastomotic leak. * Aleks Hinkle M.D. - 03/12/2024 2:27 PM CDT b patient is a 44-year-old male with a developmental delay who underwent exploratory laparotomy forconcerns for G-tube perforation which ultimately ended up being a colonic perforation from a cecal volvulus. At that time of exploration cecal volvulus with pinpoint hole in found as well as sigmoid volvulus and cholecystitis. At the time we elected to try to remove the gallbladder however got into some bleeding and at that time were made aware of the the patient's Eliquis status. After the cecum was resected I made the decision to leave the patient in discontinuity packed the liver bed and temporarily closed. I brought the patient back the following day for exploratory laparotomy at which time I was able toremove the gallbladder with some difficulty and ongoing bleeding. I was able to perform an ileocolonic anastomosis as well as resect the sigmoid volvulus and bring up a descending colostomy. Patient has convalesced in the ICU with the beginnings of bowel function. I would continue ongoing TPN therapy as I believe there is a significant on going dysmotility whichalso includes the small bowel. The small bowel was evacuated in the operating room of feculent material without observe peristalsis. * Chiquita Grigsby M.D. - 03/12/2024 11:57 AM CDT SUBJECTIVE The patient went back to the OR yesterday. This AM when trying to come down some on propofol, he had brief seizures. The mother notes they were pretty typical in terms of what she saw. There was eye opening with eye movements and she notes his arms stiffened down. They were brief but clustered and more in number than usual at home. When I saw the patient be was sedated on propofol and ketamine. OBJECTIVE VITAL SIGNS Vitals: 03/12/24 0615 03/12/24 0630 03/12/24 0645 03/12/24 0800 BP: 102/58 105/56 (!) 108/52 BP Location: Patient Position: Pulse: 87 85 83 83 Resp: 15 18 15 15 Temp: 37.8 ??C TempSrc: Axillary SpO2: 100% 99% 100% 98% Weight: Height: Intake/Output 03/11/24 0700 - 03/12/24 0659 03/12/24 0700 - 03/13/24 0659 Intake (ml) 8333.3 398.5 Output (ml) 2142.5 372 Net (ml) 6190.8 26.5 PHYSICAL EXAM Neuro: sedated on propofol and ketamine. Intubated and mechanically ventilated. Diagnostics Last EEG done on 03/06/24 while the patient was intubated but off sedation showed: Severe degree of diffuse slowing and frequent [...] be due to the effect of medications. ASSESSMENT / PLAN Say Hilario is a 44 y.o. male who epilepsy is consulted on. 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 Epilepsy is consulted for assistance with antiseizure medications due to his recent GI surgery and inability to take anything via the GI system. Regarding his home and current antiseizure medications: Cannabidiol 400 mg a.m., and 600 mg p.m. --> cannot be given IV Clobazam 15 mg in the a.m. and 10 mg in the evenings --> cannot be given IV (converted to lorazepam) Felbamate 1500 mg before breakfast and 1200 mg at 2:00 p.m. and 2100 --> cannot be given IV Lamictal 350 mg in the a.m., 350 mg at 2:00 p.m., 300 mg at bedtime --> cannot be given IV Levetiracetam 1500 mg in the a.m. and 1600 mg q.h.s. with PRN 200 mg t.i.d. --> transition to levetiracetam 2000 mg BID IV Rufinamide 200 mg AM and 400 mg q.h.s.--> cannot be given IV Since he is unable to take cannabidiol, clobazam, felbamate, lamotrigine, and rufinamide, he was started on lacosamide and lorazepam. While coming off sedation, I have recommended that his antiseizure regimen consist of: -levetiracetam 2000 mg BID IV -lacosamide 200 mg BID IV -lorazepam 2 mg q6 hours IV There was concern for more seizures when weaning propofol today. In review of the chart, he did notreceive the levetiracetam this AM. We recommend that be given. If more seizures than typical occur when temping to wean sedation again, I recommend that phenobarbital be started with a loading dose of 10 mg/kg and starting 50 mg IV TID. If there is still a concern after this loading dose, another loading dose of 10mg/kg of phenobarbital could be given (for a total loading dose of 20 mg/kg). If this is unsuccessful, then we would consider whether initiating prolonged EEG may be helpful in makingrecommendations or whether we should load and start valproic acid. HOSPITAL PROBLEM LIST #1 Leukemia Lymphocytic Acute Remission (HCC) #2 Seizure (HCC) #3 Ayaan Gastaut Syndrome (HCC) #4 Pneumonia #5 Dysphagia #6 Cerebrovascular Disease #7 Reflux Esophageal #8 Severe Sepsis With Septic Shock (HCC) #9 Nephrolithiasis #10 Brain Stem Stroke Syndrome #11 Jejunostomy Status Post (HCC) #12 Delirium (not otherwise specified) #13 Gastrostomy Status (HCC) #14 Apnea Sleep Obstructive #15 Hyponatremia #16 Acute Respiratory Failure With Hypoxia (HCC) #17 Acute Embolism And Thrombosis Of Left Femoral Vein (HCC) #18 Coma (HCC) If there are questions regarding the epilepsy or antiseizure medications, please contact the Epilepsy Dominguez service. * Michael Chu Pharm.D., R.Ph. - 03/12/2024 10:22 AM CDT Pharmacist Progress Note Reason for admission: 44 year old male admitted to [facility] Medical ICU on 02/28/2024 for acute hypoxemicrespiratory secondary to community acquired pneumonia. 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 Neuro guiding antiepileptic drug levels and if adjustments are needed Cardiovascular: NE 0.09 - likely related to sedation needs Respiratory: Intubated since 03/01 Neph: baseline scr 0.3-0.4, cystatin C eGFR 60 on 03/10 ID: Ceftriaxone/flagyl restarted for IA coverage; prior doses and 03/03. Does have documented AGEP/SJS to Augmentin, however has tolerated ceftriaxone Cefepime 03/02 Doxycycline Bactrim 03/03- for steno GI: CT of the abdomen and pelvis was obtained revealing functional ileus NSS following with CPN recs Heme: New acute LLE DVT, apixaban initiated Prophylaxis: SQH, PPI ASSESSMENT / PLAN History of complex seizure disorder with regular breakthrough seizures. Oral meds transitioned to IV regimen per neuro recs. We don't have IV options for clobazam, felbamate, lamotrigine, or rufinamide. Lorazepam 2mg IV q6h started today Remains intubated with aggressive pulm hygiene Acute LLE DVT: Holding full dose a/c given OR, utilizing SQH until ok to resume apixaban. Perforation/Ileus: NSS following with CPN recs; holding lipids while on propofol Michael Chu Pharm.D., R.Ph. [phone] * Ginger Eugene APRN, C.N.P. - 03/12/2024 9:21 AM CDT [facility], CHIEF B PROGRESS NOTE SUBJECTIVE I met and examined Mr. Hilario today. He is intubated, sedated. He continues on pressors (NE) and had 1L bolus for elevated PPV. Responded after bolus. Transfused 2 RBCs, 4 FFPs. He is on TPN for nutrition. Urine output adequate. Bowel sweat only in appliance. OBJECTIVE Temperature: [36.3 ??C-37.8 ??C] 37.8 ??C Heart Rate: [62-96] 82 Resp Rate: [15-18] 15 Blood Pressure: (102-115)/(50-61) 108/52 Arterial Line BP: (85-132)/(41-62) 111/54 FiO2 (%): [26 %-30 %] 26 % SpO2: [95 %-100 %] 98 % Pulse Rate: [60-104] 83 Physical Exam General: no acute distress, sedated Cardiovascular: Regular rate, rhythm. Pulmonary: regular, non labored. ETT Abdomen: Midline incision w/ surgical dressing. GJ capped. Ostomy pink with bowel sweat Extremities: no peripheral edema, warm Diagnostics I have reviewed all pertinent labs and diagnostic reports ASSESSMENT / PLAN Surgery Information This Encounter Past Procedures (03/13/2023 to Today) Date Procedures Providers Loc / Dept 03/10/2024 LAPAROSCOPIC EXPLORATION CONVERTED TO OPEN EXPLORATION LAPAROTOMY, RIGHT MONICA-COLECTOMY,TEMPORARY ABDOMINAL CLOSURE Aleks Hinkle M.D.Steadman, Jessica A, M.B.B.SLauren Flores M.D. [facility] OR 03/11/2024 EXPLORATION ABDOMINAL, cholecystectomy, sigmoidectomy, ileocolonic anastomosis, descending colostomy Aleks Hinkle M.D.Stewart, Brody R, M.D. [facility] OR #1 Leukemia Lymphocytic Acute Remission (HCC) #2 Seizure (HCC) #3 Ayaan Gastaut Syndrome (HCC) #4 Pneumonia #5 Dysphagia #6 Cerebrovascular Disease #7 Reflux Esophageal #8 Severe Sepsis With Septic Shock ([facility]) #9 Nephrolithiasis #10 Brain Stem Stroke Syndrome #11 Jejunostomy Status Post (HCC) #12 Delirium (not otherwise specified) #13 Gastrostomy Status (HCC) #14 Apnea Sleep Obstructive #15 Hyponatremia #16 Acute Respiratory Failure With Hypoxia (HCC) #17 Acute Embolism And Thrombosis Of Left Femoral Vein (HCC) #18 Coma (HCC) Mr. Hilario is a 44 year old male with a PMH of Ayaan-Gastaut syndrome, developmental delay, ALL treated with chemoradiation, hx of lateral medullary stroke at age 12, and seizures who presented to OSH ED with shortness of breath and hypotension. He was admitted to the MICU and intubated on 03/01. Neurology was consulted for encephalopathy. CT of the head revealed no structural abnormality. His symptoms were thought to be related to his acute illness and polypharmacy. Due to persistent encephalopathy without a clear explanation, EEG was completed which showed changes not unexpected given his Macomb-Gostout and anti-epileptic medications. MRI of the head was ordered on 03/06 and revealed non-contributory small 5 mm presumed meningioma about the left frontal convexity and stable appearance of presumed small cavernous hemangioma within the right cerebellar hemisphere. -Neuro critical care team recommended IV Keppra, propofol and ketamine as seizure prophylaxis whilehis oral anti-epileptic meds are held -Epilepsy Dominguez service consulted following along to assist with complex medication therapy for Macomb-Gastaut syndrome On 03/07 noted to have abdominal distention, CT of the abdomen and pelvis was obtained revealing functional ileus. Tube feeds were held. OG was placed with a large amount of gastric drainage with placement. 03/10: HSS consulted by MICU. Abdominal x-ray possible pneumoperitoneum. CT abdomen and pelvis confirmed free air with possible defect near the GJ tube. Proceeded to OR and underwent right hemicolectomy for cecal perforation, mobilization of gallbladder, left in discontinuity, packing (quick clot, lap pad), and temporary abdominal closure. Aborted and closed due to coagulapathy. 03/11: OR Removal of ABThera, Cholecystectomy, Sigmoid colectomy, Ileocolonic anastomosis, End descending colostomy, 2 abdominal TAMARA drains-Superior right at gallbladder fossa, inferior right in pelvis, one subcu drain. Fascia closed, skin closed. -Continue atbx: ceftriaxone, flagyl, stop date 03/15 -NPO, TPN for nutrition while awaiting return of bowel function -GJ capped 03/12: SICU in discussion with family about trach this week as intubated since 03/01. Attempting to wean pressors, and vent today. Keep sedated. Will continue to await return of bowel function. Appreciate the care of the SICU team. We will continue to follow along while Mr. Hilario requires ICU care. If you have any questions or concerns please page the HSS-B service at [phone]. * Rick Casillas M.D. - 03/12/2024 9:14 AM CDT SUBJECTIVE Following patient for nutrition support specifically parenteral nutrition given ileus and bowel perforation. Nutrition History: Wt Readings from Last 6 Encounters: 03/10/24 70.7 kg 12/30/23 70.2 kg 06/25/23 66.6 kg 03/31/23 69 kg 03/11/23 72.5 kg 02/26/23 70.8 kg Body mass index is 29.05 kg/m??. Nutrition Needs: Height: 156 cm Admission Weight: 69.4 kg (02/28/2024) Current Weight: 70.7 kg BMI (Calculated): 29.1 kg/m?? Total Calorie Needs: 4961-7202 (MSJ Basal 1430 kcals) calories/day Method to Estimate Energy Needs: [place]-St Jeor (Basal) Weight Used for Equation Calculations: 69.4 kg Total Protein Needs: 83 - 104 grams/day Method to Estimate Protein Needs (g/kg): 1.2 - 1.5 gm/kg Weight Used to Calculate Protein Needs (Kg): 69.4 kg Current IV Access: PICC Double Lumen 03/02/24 Valved Right Basilic (Active) Placement Date/Time: 03/02/24 (c) 1200 Line Type (REQUIRED): Temporary (non- tunneled, non-implanted) Procedural Pause Completed: Yes Optimal Site Selected: Yes Catheter Time Out Checklist Completed: Yes Hand Hygiene Performed Prior to Insertion:... Peripheral IV 03/01/24 18 G Anterior;Right;Upper Arm (Active) Placement Date/Time: 03/01/24 2300 Size (Gauge): 18 G Orientation: Anterior;Right;Upper Location: Arm OBJECTIVE VITAL SIGNS Temperature: 37.8 ??C Heart Rate: 82 Resp Rate: 15 Blood Pressure: 108/52 Arterial Line BP: 111/54 FiO2 (%): 26 % SpO2: 98 % Intake/Output Summary (Last 24 hours) at 03/12/2024 0914 Last data filed at 03/12/2024 0800 Gross per 24 hour Intake 7708.22 ml Output 2072.5 ml Net 5635.72 ml PHYSICAL EXAM Vital signs reviewed. Remains intubated and sedated. DIAGNOSTICS Labs: Results from last 7 days Lab Units 03/12/24 0244 03/11/24 1848 03/11/24 0620 SODIUM P -- < > -- SODIUM mmol/L 139 -- 140 POTASSIUM mmol/L 4.5 -- 4.4 CHLORIDE P -- < > -- CHLORIDE mmol/L 105 -- 105 CREATININE mg/dL 0.38* < > 0.43* ESTIMATED GFR EGFR mL/min/BSA >90 < > >90 BUN P -- < > -- BUN mg/dL 18 -- 18 GLUCOSE P -- < > -- GLUCOSE S mg/dL 117 -- 135 CALCIUM P -- < > -- CALCIUM mg/dL 7.7* -- 8.5* MAGNESIUM mg/dL 2.0 < > 2.0 PHOSPHORUS INORGANIC mg/dL 4.6* < > 3.1 ALBUMIN g/dL -- -- 3.3* BILIRUBIN TOTAL mg/dL -- -- 0.3 ALK PHOS U/L -- -- 100 ALT U/L -- -- 44 AST U/L -- -- 93* < > = values in this interval not displayed. Result Date: 03/09/2024 Impression: Enteric tube with tip and side-port in the stomach. Swallow Assessment: 12/30/23 dysphagia ASSESSMENT / PLAN # 22 Fr CALISTA low profile T-G/J replaced in GI on 12/29/23 for dysphagia Continue to have nursing performed site care with some breakdown at this site although note no concerning findings regarding the site of the time of his laparotomy on March 10. # Oral gastric tube decompression # Acute Respiratory Failure With Hypoxia # Cecal perforation status post right hemicolectomy March 10, 2024 # sigmoid colectomy, ileocolonic anastomosis with an colostomy distal to this, cholecystectomy 2023 # Parenteral nutrition initiated March 10, 2024 In reviewing the laboratory data, the current TPN remains appropriate. It is volume restricted, generous protein, etc.. Today decrease phosphorus in TPN to 10 millimoles per day. The remainder of the formula can be reordered unchanged. Today we will be last day of thiamine. Please call NSS pager at [phone] at [facility] or [phone] at [facility] with any additional questions. BILLING/CODING Total visit 35 minutes. * MilesSamuel APRN, C.N.P. - 03/12/2024 1:12 AM CDT SUBJECTIVE Brief Summary: Mr. Hilario is a 44 year old male with a PMH of Ayaan-Gastaut syndrome, developmental delay, ALL treated with chemoradiation, hx of lateral medullary stroke at age 12, and seizures who presented to OSH ED with shortness of breath and hypotension. He was admitted to the MICU. Patientwas utilizing BiPAP for respiratory failure and required intubated on 03/01 due to concern for secretion clearance. He was requiring vasopressors. He is s/p courses of doxycycline, ceftriaxone, and bactrim for pneumonia. Neurology was consulted for encephalopathy. CT of the head revealed no structural abnormality. His symptoms were thought to be related to his acute illness and polypharmacy. Due to persistent encephalopathy without a clear explanation, EEG was completed which showed changes not unexpected given his Ayaan-Gostout and anti-epileptic medications. MRI of the head was ordered on 03/06 and revealed non-contributory small 5 mm presumed meningioma about the left frontal convexity and stable appearance of presumed small cavernous hemangioma within the right cerebellar hemisphere. Due to concerns for abdominal distention, CT of the abdomen and pelvis was obtained 03/07 revealing a functional ileus. Tube feeds were held. His abdominal distention persisted and an orogastric tube was placed and hooked to low intermittent suction --a large amount of gastric contents were removed.Abdominal x-ray was performed on 03/[address] abdomen and pelvis was performed on 03/10/2024 and confirmed large abdominal free air with possible defect near the GJ tube. HSS was consulted and he proceeded to the OR. He was admitted to the SICU postoperatively for ongoing management. PROCEDURES: - s/p laparoscopic converted to open exploration, right hemicolectomy for cecal perforation, mobilization of gallbladder, discontinuity, packing (quick clot, lap pad), TAC (03/10) - s/p ex lap, sigmoid colectomy, ileocolonic anastomosis, end descending colostomy, TAMARA x 2 (R superior gallbladder fossa, R inferior pelvis), subq TAMARA, fascia and skin closure (03/11) Interval Events: - patient seen and examined, chart reviewed - discussed with Dr. Shirley and Dr. Martinez and SICU team on multidisciplinary team - OR yesterday for above procedure - give 1 L IVF bolus overnight for elevated PPV and increased need for NE, vasopressin added; PPV back to single digits following bolus OBJECTIVE I have reviewed the current vital sign data as applicable. VITAL SIGNS Temperature: [36.2 ??C-37.8 ??C] 37 ??C Heart Rate: [62-94] 91 Resp Rate: [14-156] 15 Blood Pressure: (104-115)/(48-59) 104/51 Arterial Line BP: (98-130)/(41-66) 115/47 FiO2 (%): [26 %-30 %] 26 % SpO2: [95 %-100 %] 100 % Pulse Rate: [60-95] 92 I/O last 3 completed shifts: In: 57285.7 [Enteric (NG/OG) Tube:170] Out: 2313.5 [Urine:1056; Emesis or Enteric Tube:430; Drains:252.5; Blood:200] PHYSICAL EXAM Physical Exam General: no acute distress, sedated Neurologic: PERRLA, anicteric sclera, sedated Cardiovascular: S1, S2. No murmur. Regular rate, rhythm. Cap refill < 3 seconds. Pulmonary: lung sounds clear bilaterally, no wheeze, rales, rhonchi. Non labored. ETT secured, trachea midline. Gastroenterology: bowel sounds +. Soft, non tender. No rebound, guarding, masses. Ostomy pink. Extremities: no peripheral edema. GUZMAN. Pedal pulses 2 + bilaterally. Skin: no rashes, sores, ulcerations. Incision midline covered with surgical dressing Psychologic: sedated DIAGNOSTICS I have reviewed relevant laboratory, imaging, and other diagnostics as applicable. ASSESSMENT / PLAN PLAN BY SYSTEMS: HEMODYNAMICS/CV: - HR: 90-100; SBP: 110-120; MAP: > 65 - vasopressors: NE 0.04, vaso 0.04 - lactate: 0.8 (1) - EKG: - ECHO (03/01/2024): normal LV size, no regional wall motion abnormalities, LVEF 66% normal LV filling pressure, normal RV size, borderline reduced systolic function, RVSP 34, [id number] tricuspid valve regurgitation, tiny posterior pericardial effusion - given 1 L LR overnight for elevated PPV and increasing dose of NE, added vasopressin back with drastic decrease in NE dose PLAN: continue to follow volume assessment, wean vasopressors to keep MAP > 65 NEUROLOGIC: - GCS: 6 T; RASS: - 4; CAM ICU: unable - pain medications: fentanyl infusion, currently @ 25 mcg/hr - sleep: none - delirium: none - sedation: propofol, 40 mcg/kg/min, ketamine 0.5 mcg/kg/hr - sedation vacation: no - Epilepsy Dominguez service consulted to assist with complex medication therapy for LGS RECOMMENDATIONS: - currently while on sedation, would recommend he be on levetiracetam 2000 mg BID IV and [id number] mg BID IV - as long as he is sedated with propofol, he does not need to be on a scheduled benzodiazepine. Once sedation is being weaned, I would initiate lorazepam 2 mg q6 hours IV - once sedation is weaned, there is concern for worsened seizure frequency or status epilepticus, then there should be a low threshold to initiate prolonged EEG monitoring. However, if seizures remain at baseline---with brief tonic seizures most days around the time of sleep, then prolonged EEG maynot be necessary - If medications via the GJ tube are held for longer than 7 days, then we should consider a titration when restarting the lamotrigine, as opposed to just reinitiating his home dose due to a risk of Ren's Anthony Syndrome. 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, but this was due to a reaction to an antibiotic and not due to a reaction to an antiseizure medication PLAN: continue sedation and IV AED for now PULMONARY: - vent settings: CMV 15, 330, PEEP 10, 0.26 - SBT: yes - O2 sats 98-100% - AB.38/42/79/0/25 - CXR: pending - continue aggressive pulmonary hygiene - patient intubated since 03/01, plans for tracheostomy in the coming days PLAN: plan for trach, wean vent to SPONT as able RENAL: - I/O: + 8 L since admission; + 5.9 L yesterday - UOP: 770 mL in the past 24 hours - Gama: yes - mIVF: LR @ 50 mL/hr + TPN @ 45 mL/hr PLAN: continue to follow volume status closely, continue to follow renal function, electrolytes, and UOP closely ID: - Tmax: 37 - WBC: 10.1 (9.6) - antibiotics: ceftriaxone, flagyl, planned stop date 03/15 - cultures: - see micro PLAN: complete course of antibiotics, follow WBC and fever curve HEME: - Hgb: 9.8 (10) - Plts: 257 (228) - INR: none today (1.7) - TEG: normal this am (normal) PLAN: appears stable VASCULAR ACCESS: - PIV - R PICC - L rad art line GI/NUTRITION: - NGT: LCS - GJ tube capped, redness noted surrounding, WOC consulted and following - diet: NPO - started on TPN for nutrition, currently no lipids given propofol - bowel regimen: none - drains: - 1 (gallbladder fossa): 130 - 2 (pelvis): 245 - 3 (subq): 27.5 PLAN: await return of bowel function, continue TPN ENDOCRINE: - glucose: stable on BMP - insulin: none - steroids: none PLAN: goal glucose < 180, currently no need for insulin MUSCULOSKELETAL: - PT/OT consulted - activity: mobilize, no contraindications SKIN: - repositioning per nursing - midline incision with surgical dressing: management per nursing and primary surgical team - WOC nurse consulted and following PROPHYLAXIS: - DVT: heparin 5000 Q8H - GI: pantoprazole 40 mg IV daily VENTILATOR PROPHYLAXIS: - HOB elevated: yes - chlorhexidine BID: yes CODE STATUS: - FULL CODE DISPOSITION: - SICU #1 Leukemia Lymphocytic Acute Remission (HCC) #2 Seizure (HCC) #3 Ayaan Gastaut Syndrome (HCC) #4 Pneumonia #5 Dysphagia #6 Cerebrovascular Disease #7 Reflux Esophageal #8 Severe Sepsis With Septic Shock (HCC) #9 Nephrolithiasis #10 Brain Stem Stroke Syndrome #11 Jejunostomy Status Post (HCC) #12 Delirium (not otherwise specified) #13 Gastrostomy Status (HCC) #14 Apnea Sleep Obstructive #15 Hyponatremia #16 Acute Respiratory Failure With Hypoxia (HCC) #17 Acute Embolism And Thrombosis Of Left Femoral Vein (HCC) #18 Coma (HCC) Associated attestation - Lary Martinez M.D. - 03/12/2024 12:14 PM CDT I saw and evaluated the patient, participating in the small portions of the service. I reviewed Mr. Belle's note. I agree with his findings and plan. [facility] ICU MEDICAL FACILITIES SECTION DIRECTOR NOTE SUBJECTIVE Mr. 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 On 03/10, he underwent right hemicolectomy for perforated cecal volvulus. Yesterday, he underwent sigmoid colectomy, ileocolonic anastomosis, and end colostomy distal to this, as well as cholecystectomy. Overnight, the patient has been afebrile. He continues on norepinephrine and vasopressin. His norepinephrine requirement has subtly increased since yesterday. Lactate is within normal limits. He remains sedated with fentanyl, ketamine, and propofol. However, with a slight decrease in his propofol, he has had multiple seizures this morning. He remains intubated on CMV mode, with minimal settings otherwise. His chest x-ray demonstrates significant pulmonary edema. The patient was noted to have fresh clots in his abdomen but hemoglobin is 9.8 from 10 yesterday evening. His TEG is within normal limits aside from a mildly increased amplitude. He made 870 cc of urine yesterday while receiving multiple blood products, TPN and maintenance IV fluids. He has no major electrolyte abnormalities. OBJECTIVE I have reviewed the current vital sign data as applicable. VITAL SIGNS BP (!) 108/52 Pulse 83 Temp 37.6 ??C (Axillary) Resp 15 Ht 156 cm Wt 70.7 kg SpO2 100% BMI 29.05 kg/m?? PHYSICAL EXAM GENERAL: Lying in bed quietly. NEUROLOGIC: Sedated and minimally interactive. PULMONARY: Mechanically ventilated, no apparent ventilator dyssynchrony. Drains with serosanguineous output. ABDOMINAL: Soft, without peritonitis. EXTREMITIES: Cool, dry and edematous. ASSESSMENT AND PLAN Mr. 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 On 03/10, he underwent right hemicolectomy for perforated cecal volvulus. Yesterday, he underwent sigmoid colectomy, ileocolonic anastomosis, and end colostomy distal to this, as well as cholecystectomy. Mr. Hilario's coagulopathy seems to have quiesced. However, his pressor requirement has slightly increased and he now has been having seizures. In addition, we are going to work on getting some additional peripheral IV access. If we are unsuccessful, we may place a CVC for access but we will attempt additional PIV placement first. We will continue volume assessments on Mr. Hilario to determine if he needs additional volume resuscitation versus diuresis. With all of these active issues, we will hold off on tracheostomy at this time. We will utilize today to increase his PEEP to improve his lung volumes, which are decreased on today's X-ray, try to wean his vasopressors, discuss his anti- seizure regimen with our Neurology colleagues, secure additional access, and continue to monitor for any bleeding. All of this was discussed with the patient's parents. Critical care time 30 minutes. This is time spent at this critically ill patient's bedside activelyinvolved in patient care as well as the coordination of care and discussions with the patient's family. This does not include any procedural time which has been billed separately * Rafi Vizcarra U - 03/11/2024 1:08 PM CDT [facility] Spiritual Care Consult Note Patient: Say Hilario Age:44 y.o. Location: [id number] Reason(s) for encounter: Spiritual Care contact for ongoing spiritual care. Summary: I was able to meet with Say Hilario. Say was in bed and not communicating. [facility] was sitting in the room waiting on him. Pt's parents were in the room by his bed. They said Say will be having another surgery today and me to pray over him. I shared prayers with them for Say; and words of comfort were given to them before they both received holy communion administered to them. Sacraments administered: The Sacrament of Communion was administered with prayer and blessing. Spiritual Assessment Jewish Identification / Spiritual Practices: Protestant. Coping and support: Pt's parents were in the room giving him emotional comfort. Spiritual Care interventions: Therapeutic and supportive listening was provided with the aim of allowing patient/family expression of emotions, hopes and worries regarding current medical condition and life stage. Facilitated methodist/spiritual practices (prayer, blessing, sacred texts, methodist item) with theaim to reinforce patient's spiritual wellness and connection with source of sacredness. Spiritual Care outcomes: Patient/family achieved a sense of spiritual peace. Patient/family was appreciative of spiritual care support. Spiritual Care Plan / Recommendations: Will remain available for spiritual care as needed or requested. Chaplains can be contacted by paging [phone] ([place]) or [phone] (Jewish). * David Arreaga, RHarika., C.W.C.N. - 03/11/2024 12:33 PM CDT [facility] Wound RN reconsulted to assess Say Hilario skin alterations. Wound assessment, pain, and Javier score noted in the flowsheet. No images were taken during this patient assessment. History: Per provider note, the patient was admitted to the hospital for acute hypoxemic respiratory failure secondary to community-acquired versus aspiration pneumonia. The patient's significant history includes cerebrovascular disease, Macomb Gastaut Syndrome, chronic dysphagia with PEJ placement, and intellectual disability. Assessment: The [facility] nurse was reconsulted to assess for worsening MASD around GJ Tube secondary to increased drainage. On assessment; the affected area around the GJ Tube has slightly improved. The erythema has reducedand the generalized epidermal striping has resolved. There are worsening erosions secondary to moisture and friction from the tubing at 12- 6 o'clock. The [facility] nurse recommends the same modality of care but instructed the primary nurse on the proper application of the Mepilex Up which would provide pr essure, friction, and moisture prevention. 03/11/24 1000 Pain Assessment Resp Rate 15 Wound 03/12/23 Other Moisture Associated Skin Damage Abdomen Left;Lower GJ-Tube Date First Assessed/Time First Assessed: 03/12/23 0900 Present on Original Admission: Yes Wound Approximate Age at First Assessment: Unknown Primary Wound Type: Other Moisture Associated Skin Damage Location: Abdomen Wound Location Orientation: ... *Shape Irregular *Tunneling none *Signs of Infection None Unable to Measure Y *Wound Bed Open;[place];White Odor None *Exudate Amount Small Drainage Description Serosanguineous Ana-wound Assessment Fragile Treatments Cleansed Periwound Treatment Cleansed (Comment) Wound Cleansed with Wound cleanser *Primary Dressing Acetic acid (with [place]/Nystatin Cream) *Primary Dressing Frequency of Change 3x/day & PRN *Secondary Dressing Foam (Mepilex Up) *Secondary Dressing Frequency of Change 3x/day & PRN Secondary Dressing Changed New Changed by Unit based nurse;Wound property field inspector Ongoing management Nursing;Wound/patternmaker bench Wound 03/10/24 Incision IPSI(s) present Abdomen Medial Date First Assessed/Time First Assessed: 03/10/24 1642 Primary Wound Type: Incision Select when Intentionally Packed Surgical Item(s) are placed or removed: IPSI(s) present Status of Intentionally Packed Surgical Item(s) in OR: Initial packing Lo... NPWT Output (mL) 50 mL (new canister) Focused assessment completed DRESSING RECOMMENDATIONS: #1 Friction Injury Buttocks with Incontinence Associated Dermatitis to Bilateral Groin #2 Moisture Associated Skin Damage Abdomen Left;Lower [...] in place for two hours. -Repeat two to three times daily. In Between Treatments: -Apply a Mepilex Up under PEJ. -Apply Sacral Mepilex Border to cover open areas on buttocks. -Place InterDry AG in between groin and abdominal folds. Recommended interventions for pressure redistribution and shear [...] prevention. Change every 3 days and PRN. Utilize Isolibrium mattress with InTouch Frame (standard for ICU). Recommended interventions for moisture control: InterDry?? Ag placed between folds. Allow at least 2 inches of fabric exposed to air on at least one side of the skin fold for moisture evaporation. Can be used up to 5 days unless soiled with stool or urine. Do not rinse with water. Utilize the breathable incontinence underpads while in bed. Adult briefs should only be worn while ambulating or in the chair. Cleanse with foaming cleanser or wipes after each incontinence episode and for routine hygiene cares. Utilize Isolibrium mattress with InTouch Frame (standard for ICU). Consult recommendations: NA Education: Discussed the plan of care with the patient and nursing, bedside nurse in agreement withplan and no further concerns at this time. The WOC RN will continue to see the patient, contact or reconsult for worsening wounds or new wounds. Electronically signed by: David Arreaga R.N., Marleni ([facility] student) 03/11/24 12:34 PM CDT * Ross Voss M.D. - 03/11/2024 11:29 AM CDT SUBJECTIVE Postop Day: 1 Day Post-Op Hospital Day: LOS: 12 days No overnight events. Patient is sedated and on vent. Vent settings: - SCMV, 15 RR, 330 VT, 10 PEEP, 30% O2. Patient is receiving 400ml/hr blood products through 22G thumb catheter. OBJECTIVE VITAL SIGNS Temperature: [36.2 ??C-37.8 ??C] 37.3 ??C Heart Rate: [65-100] 65 Resp Rate: [14-156] 15 Blood Pressure: (100-115)/(48-70) 115/55 Arterial Line BP: (98-130)/(41-70) 103/51 FiO2 (%): [30 %-40 %] 30 % SpO2: [95 %-100 %] 98 % Height: [156 cm] 156 cm Pulse Rate: [65-100] 65 I/O Intake/Output Last 24 Hours: Intake/Output Summary (Last 24 hours) at 03/11/2024 1132 Last data filed at 03/11/2024 1123 Gross per 24 hour Intake 7775.42 ml Output 1679 ml Net 6096.42 ml DIAGNOSTICS Reviewed. PHYSICAL EXAM Constitutional General: He is sleeping. Appearance: He is overweight. Interventions: He is sedated and intubated. Pulmonary Effort: He is intubated. Abdominal General: A surgical scar is present. Palpations: Abdomen is soft. Comments: Wound open, vac dressing placed. There is a [id number] bruise to the right of his incision. G-tube looks well. 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 He underwent right hemicolectomy for cecalvolvulus with perforation. Bleeding in the OR was hard to control because patient was on Eliquis. Wound was packed with VAC dressing and patient was admitted to SICU. Anticoagulation is held for patient to return to OR on wednesday/wednesday. Patient currently NPO on TPN. PLAN: -Hold anticoagulation and keep NPO until return to OR (Wednesday/Wednesday). Patient is being cared for by the HSS-B team. Please page [phone] (HSS-B) with any questions. Plan and assessment were discussed with Dr. Hinkle, who was in agreement. * Rick Casillas M.D. - 03/11/2024 9:27 AM CDT SUBJECTIVE Following patient for nutrition support specifically parenteral nutrition given ileus and bowel perforation. Nutrition History: Wt Readings from Last 6 Encounters: 03/10/24 70.7 kg 12/30/23 70.2 kg 06/25/23 66.6 kg 03/31/23 69 kg 03/11/23 72.5 kg 02/26/23 70.8 kg Body mass index is 29.05 kg/m??. Nutrition Needs: Height: 156 cm Admission Weight: 69.4 kg (02/28/2024) Current Weight: 70.7 kg BMI (Calculated): 29.1 kg/m?? Total Calorie Needs: 3808-0215 (MSJ Basal 1430 kcals) calories/day Method to Estimate Energy Needs: [place]-St Jeor (Basal) Weight Used for Equation Calculations: 69.4 kg Total Protein Needs: 83 - 104 grams/day Method to Estimate Protein Needs (g/kg): 1.2 - 1.5 gm/kg Weight Used to Calculate Protein Needs (Kg): 69.4 kg Current IV Access: PICC Double Lumen 03/02/24 Valved Right Basilic (Active) Placement Date/Time: 03/02/24 (c) 1200 Line Type (REQUIRED): Temporary (non- tunneled, non-implanted) Procedural Pause Completed: Yes Optimal Site Selected: Yes Catheter Time Out Checklist Completed: Yes Hand Hygiene Performed Prior to Insertion:... Peripheral IV 03/01/24 18 G Anterior;Right;Upper Arm (Active) Placement Date/Time: 03/01/24 2300 Size (Gauge): 18 G Orientation: Anterior;Right;Upper Location: Arm OBJECTIVE VITAL SIGNS Temperature: 37.5 ??C Heart Rate: 69 Resp Rate: 156 Blood Pressure: 113/52 Arterial Line BP: 109/50 FiO2 (%): 30 % SpO2: 98 % Height: 156 cm Intake/Output Summary (Last 24 hours) at 03/11/2024 0927 Last data filed at 03/11/2024 0838 Gross per 24 hour Intake 7200.78 ml Output 1808 ml Net 5392.78 ml PHYSICAL EXAM Vital signs reviewed. Remains intubated and sedated. I did not examine his gastrostomy site. DIAGNOSTICS Labs: Results from last 7 days Lab Units 03/11/24 0620 SODIUM mmol/L 140 POTASSIUM mmol/L 4.4 CHLORIDE mmol/L 105 CREATININE mg/dL 0.43* ESTIMATED GFR EGFR mL/min/BSA >90 BUN mg/dL 18 GLUCOSE S mg/dL 135 CALCIUM mg/dL 8.5* MAGNESIUM mg/dL 2.0 PHOSPHORUS INORGANIC mg/dL 3.1 ALBUMIN g/dL 3.3* BILIRUBIN TOTAL mg/dL 0.3 ALK PHOS U/L 100 ALT U/L 44 AST U/L 93* Result Date: 03/09/2024 Impression: Enteric tube with tip and side-port in the stomach. Swallow Assessment: 12/30/23 dysphagia ASSESSMENT / PLAN # 22 Fr CALISTA low profile T-G/J replaced in GI on 12/29/23 for dysphagia Continue to have nursing performed site care with some breakdown at this site although note no concerning findings regarding the site of the time of his laparotomy on March 10. # Oral gastric tube decompression # Acute Respiratory Failure With Hypoxia # Cecal perforation status post right hemicolectomy March 10, 2024 # Aborted cholecystectomy, March 10, 2024 # Parenteral nutrition initiated March 10, 2024 In reviewing the laboratory data, the current TPN remains appropriate. It is volume restricted, a generous protein, the best we can do while we await for return of bowel function has guided by the surgical team. Please call NSS pager at [phone] at [facility] or [phone] at [facility] with any additional questions. BILLING/CODING Total visit 35 minutes. * Savannah Fong M.B.B.S. - 03/11/2024 2:25 AM CDT SICU Progress Note REASON FOR ADMISSION - s/p ex lap, right hemicolectomy for cecal perforation, mobilization of gallbladder, discontinuity, packing (quick clot, lap pad), TAC on 03/10 HISTORY OF PRESENT ILLNESS Mr. Hilario is a 44 year old male with a PMH of Macomb-Gastaut syndrome, developmental delay, ALL treated with chemoradiation, hx of lateral medullary stroke at age 12, and seizures who presented to [facility] ED with shortness of breath and hypotension. He was admitted to the MICU. Patient was utilizing BiPAP for respiratory failure. He was requiring vasopressors. He was started on doxycycline and ceftriaxone. Patient was also started on Bactrim for Stenotrophomonas in the tracheal secretions. He wasintubated 03/01 for concern for secretion clearance. Neurology was consulted for encephalopathy. CT of the head revealed no structural abnormality. His symptoms were thought to be related to his acute illness and polypharmacy. Due to persistent encephalopathy without a clear explanation, EEG was completed which showed changes not unexpected given his Macomb-Gostout and anti-epileptic medications. MRI of the head was ordered on 03/06 and revealed non-contributory small 5 mm presumed meningioma about the left frontal convexity and stable appearance of presumed small cavernous hemangioma within the right cerebellar hemisphere. On 03/07/24, patient was observed opening his eyes occasionally. Due to concerns for abdominal distention, CT of the abdomen and pelvis was obtained revealing functional ileus. Tube feeds were held. His abdominal distention persisted and an orogastric tube was placed and hooked to low intermittentsuction --a large amount of gastric contents were removed. Abdominal x-ray was performed on 03/[address] abdomen and pelvis was performed on 03/10/2024 and confirmed large abdominal free air with possible defect near the GJ tube. HSS was consulted and he proceeded to the OR and underwent right hemicolectomy for cecal perforation, mobilization of gallbladder, discontinuity, packing (quick clot, lap pad), TAC. Interval Events: -Discussed with Dr Martinez and SICU team on multidisciplinary rounds -Mr Hilario remained intubated and sedated overnight -Pressor support overnight with Norepi ranging 0.05-0.08 -Per our discussion with the Neuro critical care team, he remained on IV Keppra, propofol and ketamine as seizure prophylaxis while his oral AEDs remain held -Transfusion totals: 2U pRBC and 4U FFP REVIEW OF SYSTEMS Review of systems not obtained due to patient factors: altered mental status, sedated, and ventilated. OBJECTIVE I have reviewed the current vital sign data as applicable to this admission. PHYSICAL EXAM General appearance: intubated, mechanically ventilated, sedated, chronically ill appearing, and in no acute distress Neurologic: sedated HEENT: normocephalic, without obvious abnormality and sclera anicteric Chest: bilateral breath sounds, wheezing none, crackles none, and rhonchi none Heart: regular rate and rhythm, S1 and S2 normal, no murmur Abdomen: temporary abdominal closure with good suction, serosang output, distended, and tympanic Extremities: warm, well perfused and capillary refill < 3 seconds Skin: see nursing documentation, groin rash, j tube site with redness DIAGNOSTICS I have reviewed relevant laboratory, imaging, and other diagnostics as applicable. ASSESSMENT / PLAN PLAN BY SYSTEMS: HEMODYNAMICS/CV: -HR: 70s-90s, SBP 110s, MAPs >70 ECHO obtained 03/01/2024 demonstrated normal LV size, no regional wall motion abnormalities, LVEF 66% normal LV filling pressure, normal RV size, borderline reduced systolic function, RVSP 34, [id number] tricuspid valve regurgitation, tiny posterior pericardial effusion. PLAN: continue IVF resuscitation, NE to keep MAP > 65 NEUROLOGIC: -Neurocritical care recommendations for seizure prophylaxis: Propofol, ketamine, IV keppra. If propofol needs to be discontinued, can consider scheduled ativan Q6H -Remained sedated and comfortable overnight with no witnessed seizure activity PLAN:He will likely remain sedated until return to OR later today PULMONARY: - vent settings: CMV 30% 15 x 330, PEEP 10 - ABG: pending - AM CXR pending PLAN: Keep intubated for the OR later today RENAL: - +1.3L since admission, +4.4L for the day -615cc UOP for 24hrs -TPN @ 42cc/hr - AM BMP pending PLAN: continue to follow renal function, electrolytes, and UOP closely ID: - WBC: AM pending (8.5) - antibiotics: ceftriaxone, flagyl - cultures: - 03/10: blood c/s pending -02/28: tracheal secretions +ve for Yeast and Stenotrophomonas PLAN: continue empiric antibiotics, HEME: -Patient was found to have DVT of the LLE mid to lower femoral vein through popliteal vein on 02/27 and was started on apixaban. (HELD) -Hb: AM Pending (8.8) -2U pRBC intraop yesterday -4U FFP overnight to correct his TEG -AM TEG Pending PLAN: No acute bleeding concerns VASCULAR ACCESS: - PIVx2 - R PICC - L rad art line GI/NUTRITION: - OGT: 425cc -PEG tube capped. - diet: NPO, TPN - bowel regimen: none PLAN: Strict NPO, TPN until return to OR ENDOCRINE: - glucose: stable thus far, no insulin currently, start if glucose > 180. - steroids: none PLAN: follow glucose on BMP MUSCULOSKELETAL: - activity: no restrictions SKIN: - repositioning per nursing - midline incision, Ab Thera in place, management per surgical team PROPHYLAXIS: - DVT: SCDs, holding given intra operative bleeding - GI: pantoprazole 40 mg IV daily CODE STATUS: - FULL CODE DISPOSITION: - SICU #1 Leukemia Lymphocytic Acute Remission (HCC) #2 Seizure (HCC) #3 Ayaan Gastaut Syndrome (HCC) #4 Pneumonia #5 Dysphagia #6 Cerebrovascular Disease #7 Reflux Esophageal #8 Severe Sepsis With Septic Shock (HCC) #9 Nephrolithiasis #10 Brain Stem Stroke Syndrome #11 Jejunostomy Status Post (HCC) #12 Delirium (not otherwise specified) #13 Gastrostomy Status (HCC) #14 Apnea Sleep Obstructive #15 Hyponatremia #16 Acute Respiratory Failure With Hypoxia (HCC) #17 Acute Embolism And Thrombosis Of Left Femoral Vein (HCC) #18 Coma (HCC) Associated attestation - Lary Martinez M.D. - 03/11/2024 1:57 PM CDT I saw and evaluated the patient, participating in the small portions of the service. I reviewed Dr. Fong's note. I agree with her findings and plan. [facility] ICU MEDICAL FACILITIES SECTION DIRECTOR NOTE SUBJECTIVE Mr. 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 He is nowstatus post laparotomy, right hemicolectomy and temporary abdominal closure for perforated cecal volvulus. Cholecystectomy was attempted but aborted due to significant intraoperative coagulopathy. Overnight, the patient has been afebrile without tachycardia. He has required norepinephrine and vasopressin to maintain map greater than 65. He remains intubated and sedated with infusions of fentanyl, ketamine, propofol. He remains mechanically ventilated on CMV mode, 30% FiO2, PEEP 10. He has significant bilateral pulmonary edema and atelectasis. He made 790 cc of urine yesterday; no major electrolyte abnormalities. Hemoglobin this morning is 6.1 from 8.8. No leukocytosis. OBJECTIVE I have reviewed the current vital sign data as applicable. VITAL SIGNS BP (!) 111/51 Pulse 71 Temp 37.8 ??C (Axillary) Resp 15 Ht 156 cm Wt 70.7 kg SpO2 98% BMI 29.05 kg/m?? PHYSICAL EXAM GENERAL: Lying in bed quietly. NEUROLOGIC: Sedated and minimally interactive. Given the patient's current position, it is difficult for me to palpate the cricothyroid membrane but his thyroid cartilage is easily palpable. Moderateamount of precervical tissue. PULMONARY: Mechanically ventilated, no apparent ventilator dyssynchrony. ABDOMINAL: Soft, without peritonitis. ABThera holding suction. Urine draining from Gama is landry,concentrated-appearing. EXTREMITIES: Warm, well-perfused. No pitting edema in the lower extremities. ASSESSMENT AND PLAN Mr. 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 Yesterday, he underwent laparotomy, right hemicolectomy and temporary abdominal closure for perforated cecal volvulus. Cholecystectomy was aborted due to intraoperative coagulopathy. We will transfuse PRBC and recheck hemoglobin. We will continue to work on correcting his TEG. Willcontinue volume resuscitation and broad-spectrum antibiotics, and see how he responds after today'strip to the operating room with the Hospital Surgical Service. It appears that tracheostomy has been proposed to Mr. Hilario's family before and they would be in favor of this. I discussed this with his mother, and explained the risks (airway compromise, stoma complications) and benefits (comfortable weaning from the ventilator). She indicated her understanding and support of a tracheostomy. We will work on stabilizing him from his septic insult before performing this, possibly tomorrow or Wednesday. Critical care time 30 minutes. This is time spent at this critically ill patient's bedside activelyinvolved in patient care as well as the coordination of care and discussions with the patient's family. This does not include any procedural time which has been billed separately. * Michelle Anderson R.R.T., TezRMayT. - 03/10/2024 5:48 PM CDT 03/10/24 1645 Internal Patient Transport Internal Patient Transport From [place] Transport Equipment Assisted Ventilation;Oxygen Therapy Transport Time (minutes) 45 Pt transported from OR 405 to 516 on T1 ventilator on the following settings: Mode:PCMV PC:15 PEEP:+10 RR:15 FiO2:50% Nursing and Respiratory personnel present for handoff. Anesthesia bag and mask present on transport. No complications during transport. Electronically signed by: Michelle Anderson R.R.T., TezRBarbara 03/10/24 5:49 PM CDT * Rosalina Wagner M.S., O.T. - 03/10/2024 11:48 AM CDT 03/10/24 1148 Reason Therapy Missed Reason Therapy Missed Medical hold Plan for patient to undergo emergent abdominal surgery. Will hold skilled therapies this date and resume therapy plan of cares when patient is medically appropriate. Zunilda Wagner M.S., O.T. * Jose De Jesus Dunn, Pharm.D., R.Ph. - 03/10/2024 8:51 AM CDT Pharmacist Progress Note Reason for admission: 44 year old male admitted to [facility] Medical ICU on 02/28/2024 for acute hypoxemicrespiratory secondary to community acquired pneumonia. 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 Family will provide guidance on when to use rescue benzodiazepines vs extra 200 mg of Keppra if needed. Neuro guiding antiepileptic drug levels and if adjustments are needed Cardiovascular: SR, BP stable Respiratory: ASV 30%, intubated due to difficulty maintaining secretions Neph: Cr 0.59, slowly increasing, baseline 0.3-0.4, cystatin C also slowly rising, eGFR still 60 mL/min, urine output 0.3 mL/kg/hr ID: Steno pneumonia Ceftriaxone 02/27- and 03/03. 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 History of complex seizure disorder with regularbreakthrough seizures. Patient has new gastric perforation so unable to give oral medications. Changing keppra to IV however we don't have IV options for clobazam, felbamate, lamotrigine, or rufinamide. Consulting Neuro to discuss alternative options. Acute hypoxic respiratory failure: BAL cultures growing Stenotrophomonas maltophilia and antibiotics were transitioned to Bactrim : targeting 12 mg/kg for total daily dose. Planning spontaneous breathing trial today. Acute LLE DVT: Continuing Apixaban. Had some oozing around G-tube site as well as some mucosal oozing in mouth/nose thus deferred the initial 10 mg BID load. Given levetiracetam interaction, checked apixaban anti-Xa peak, within expected range. ?RAISSA: Cr/Cys C slowly rising, give 500 mL fluid bolus today to see if a little hypovolemic. Perforation/Ileus: NSS consulted for CPN given functional ileus. Given likely will be on propofol post-op I discussed with NSS and we'll hold lipids today. Resume 50 g daily tomorrow if off propofol.CT shows perforation, planning surgical exploration today. Patient has SJS penicillin allergy so can't get Piperacillin/tazobactam, previously tolerated cephalosporins, starting ceftriaxone/flagyl. Starting fluconazole given concern for gastric perforation, if lower perforation this can be d/c'd post-op. Jose De Jesus Dunn Pharm.D., R.Ph. [phone] * Rufus Ba M.B.BMayS. - 03/10/2024 7:19 AM CDT SUBJECTIVE This is a supervisory note. I have personally seen and examined the patient, reviewed all relevant labs, radiology studies, and chart notes and have discussed the assessment and plan in person with the inter professional critical care team. I have reviewed the team note associated with today's encounter and agree with this documentation with the following additions and exceptions: Brief Summary: Mr. 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 ICU course eventful for functional ileus and extubation attempt has been limited by mental status Interval Events: Abdomen still distended, no bowel movement with bowel regimen including lactulose enema. PEJ and NG tube drainage about 3.5 L , received 1 L IVF I/O -2 L Night 03/09: - lactulose enema given with little results --- blood streaked output Day 03/09: - Abdominal distension. - Kept NPO - Venting PEG-J - More aggressive bowel regimen - Curbsided GI - Placed large bore OG for decompression. - TPN order. NSS to see and start tomorrow. - Finishing 7 day course of Bactrim - Received a total of 1 L IVF today OBJECTIVE VITAL SIGNS I have reviewed the current vital sign data as applicable. PHYSICAL EXAM More alert this morning and tracking intermittently. Abdomen distended DIAGNOSTICS I have reviewed relevant laboratory, imaging, and other diagnostics as applicable. ASSESSMENT / PLAN #1 Acute hypoxemic respiratory failure secondary to aspiration pneumonia; intubated 03/01/2024 #2 Pneumonia secondary to stenotrophomonas maltophilia #3 Encephalopathy on the background of severe cognitive delay #4 Acute left femoral deep venous thrombosis; on apixaban #5 Dysphagia, on long-term tube feeds via a gastrojejunal tube (placed 2019, previously G-tube; last replaced 12/28) #6 Bleeding around PEJ tube after initiation of therapeutic anticoagulation; resolved #7 Macomb-Gastaut syndrome with recurrent seizures and severe cognitive delay #8 Probable sleep disordered breathing; further evaluation deferred given complexities with any PAPimplementation #9 History of ALL, status post treatment with chemoradiation at 20 months #10 History of prior urinary infections secondary to nephrolithiasis, 2022 #11 History of lateral medullary stroke, age 12 #12 Code status: Full code, Tracheostomy okay (surrogate decision maker are his parents) Abdominal Xray with suspicion of pneumoperitoneum and confirmed by CT scan. Appreciate the immediate evaluation by the surgical team by the bedside. Mr. Hilario's parents haveconsented to surgery for this afternoon. Mr. Hilario will be transferred to the surgical ICU after the procedure. We have initiated broad spectrum with Ceftriaxone, Flagyl and Fluconazole. Keppra has been switched to IV and antiseizure medications should be discussed postoperatively withNeuro ICU. Fluid status and electrolytes should be monitored closely. Family is okay with tracheostomy placement to facilitate vent weaning and would appreciate daily evaluation of goals of care. Critical care time: 60 minutes. This is time spent at this critically ill patient's bedside actively involved in patient care as well as the coordination of care and discussions with the patient's family about pneumoperitoneum, surgery and tracheostomy. This does not include any procedural time which has been billed separately. * Tam Huang P.A.-C., M.S. - 03/10/2024 6:10 AM CDT SUBJECTIVE Brief Summary: Mr. Hilario is a 44-year-old male patient with medical comorbidities consisting of Ayaan-Gastaut syndrome who was admitted to the medical intensive care unit for hypoxic and hypercapnic respiratory failure in the setting of community- acquired pneumonia. Interval Events: Night 03/09: - lactulose enema given with little results --- blood streaked output 03/09: - Abdominal distension. - Kept NPO - Venting PEG-J - More aggressive bowel regimen - Curbsided GI - Placed large bore OG for decompression. - TPN order. NSS to see and start tomorrow. - Finishing 7 day course of Bactrim - Received a total of 1 L IVF today OBJECTIVE I have reviewed the current vital sign data as applicable. PHYSICAL EXAM General Appearance: 44 year old male, in bed in no acute distress Neurologic: Opens eyes to touch, pupils equal Heart: regular rate and rhythm, no murmur noted Lungs: clear to auscultation Abdomen: distended, bowel sounds absent, no signs of pain on palpation Extremities: Warm, well perfused. . Skin: Warm, dry. No visible rashes. DIAGNOSTICS I have reviewed relevant laboratory, imaging, and other diagnostics as applicable. #1 Leukemia Lymphocytic Acute Remission (HCC) #2 Pneumonia #3 Brain Stem Stroke Syndrome #4 Apnea Sleep Obstructive #5 Acute Respiratory Failure With Hypoxia (HCC) #6 Acute Embolism And Thrombosis Of Left Femoral Vein (HCC) #7 Coma (HCC) ASSESSMENT / PLAN Mr. Say Hilario is a 44 y.o. male with a past medical history significant for Macomb-Gastaut syndrome, developmental delay, ALL treated with chemoradiation, lateral medullary stroke, and seizures. Mr. Hilario was admitted on 02/27 with respiratory failure secondary to pneumonia. His hospital course has been complicated by DVT, bleeding from gastric tube site following initiation of anticoagulation, encephalopathy, and gastric distention/ileus. Yesterday, given his gastric distention an OG tube was placed for decompression, there has been roughly 3.5L out. AXR repeated this morning forpneumoperitoneum. CT abdomen and pelvis performed and confirmed large free air with possible defectnear the GJ tube balloon. Surgery has been consulted and awaiting evaluation. Plan otherwise as follows: NEURO # Macomb-Gastaut Syndrome # Developmental Delay # History of Lateral Medullary Stroke # Sedation # Query Subclinical Seizure Activity - Seizure precautions - Sedation: Off since 03/02. - Daily SAT/SBT - Hold home PO medications for the time being give question of gastric perforation: Baclofen 10 mg QID (decreased from 20 mg QID on 03/06), Cannabidiol 400 mg AM and 600 mg PM, Clobazam 15 mg AM and 10 mg PM, Felbamate 1500 mg AM and 1200 mg BID, Lamotrigine 350 mg BID and 350 mg QHS, Levetiracetam 1500 mg AM and 1600 mg PM, and Rufinamide 200 mg AM and 400 mg PM. - Switch keppra to IV. Touch base with neurology after OR to discuss AEDs. - Pain regimen: Acetaminophen 1000 m g Q6H PRN - Head CT 03/02: Negative - Neurology ICU signed off 03/08. EEG and MRI from 03/06 unrevealing. Continued clinical observation. - Followed up on levels. No changes to anti-epileptics. CARDIAC/CV - Maintain MAP > 60-65 - Monitoring with cuff pressures. Arterial line removed. PULMONARY # Chronic Nocturnal Supplemental Oxygen (1 L nasal cannula) # Community Acquired Pneumonia # Acute on Chronic Respiratory Failure with Hypoxemia # Mechanical Intubation # Status Post Bronchoscopy 03/01/24 - Maintain SpO2 > 92% - Continue mechanical ventilation: ASV vs Spont - Intubated 03/01 (ETT 7.5) - Chronic oxygen home use: 1 L NC nocturnally. - Daily SBT - Pulmonary hygiene: DuoNeb QID PRN, Chlorhexidine mouthwash BID, 3% saline QID PRN, and frequent oral care. RENAL # Chronic urine retention - At home, he has an I/O catheter routine 4x a day. Gama catheter was placed when he was admitted to the hospital. - Strict I&O and daily weight - Monitor renal function and electrolytes - Avoid nephrotoxins and renally adjust medications as able - Cystatin C continues to rise, question volume depletion in the setting of large OG tube output. We will administer 500 cc of LR and monitor for response. GI # Calista Tube Status # Oozing/Bleeding from Calista Tube Site # Abd distension # Functional ileus # Pneumoperitoneum - Diet: NPO - Antiemetics: None - Bowel regimen: Bisacodyl suppository 10 mg daily PRN, MiraLAX 17 g daily, and Senokot-S 2 tablet BID. PRN enema. - GI PPX: Pantoprazole 40 mg IV daily - Vent G-tube port, OG tube to LIS - CT abd/pelvis 03/07: No mechanical small or large bowel obstruction. Findings in the small and large bowel are suggestive of a functional ileus. -Possible pneumoperitoneum on a x-ray this morning, CT abdomen and pelvis confirmed free air with possible defect in the stomach near GJ tube. -General surgery consulted ID # Community Acquired Pneumonia # Leukocytosis, resolved - Blood cultures 02/27 OSH: 1/2 bottles + [facility] - Blood culture 03/01: NGTD - Sputum cultures 02/28: 2+ Yeast and Stenotrophomonas 2+ - Antibiotics: - Cefepime (03/02-03/03) - Vancomycin (03/01) - Doxycycline (02/27 - 03/02) - Ceftriaxone (02/27 - 03/01 and 03/03) - Bactrim (03/03, day 7 of 7) -we will start broad-spectrum antibiotics including anaerobic coverage given possible gastric perforation. 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 HEME/ONC # Anemia # Left Lower Extremity DVT - No signs of active/acute bleeding - Monitor CBC daily - DVT PPX: Apixaban 5 mg BID (L LE DVT) (Held for possible surgery) ENDOCRINE - Monitor blood glucose 4 times daily - Notify provider for blood glucose > 140 or <70 - Hypoglycemia protocol ordered RHEUM/MUSK # No active issues OTHER PT/OT/ST: As indicated by therapy services Code Status: Full Code Disposition: - ICU Level Cares - Family: Mother, Shelby. Father, Andrés. * Amena Winn PBarbara, D.P.T. - 03/09/2024 2:32 PM CDT Physical Therapy Inpatient Treatment Note SUBJECTIVE Patient's Name: Say Bowen Hilario Referring/Attending: Rufus Ba M.B.B.S. Medical Diagnosis: Acute Respiratory Failure With Hypoxia (HCC) [J96.01] Reason for Referral: PT Evaluate and Treat General acute Onset Date: 02/28/24 Payor: MEDICARE / Plan: MEDICARE A AND B / Product Type: Medicare / History of Present Illness: Pt presenting with severe encephalopathy and hypoxemic and hypercapnic respiratory failure requiring mechanical ventilation Family/Caregiver Present: Yes Patient/Caregiver Goals: none stated Patient Comments: Pt found semi-reclined in bed. Pt intermittently opening eyes. RN and family agreeable to PT/OT session. Precautions Other Precautions: aspiration, severe cognitive deficits (cognition of 18 mo per family), orthostatic hypotension OBJECTIVE Co-treatment with OT this session. The patient benefitted from having two skilled therapists present in order to optimize mobility progression and safety with mobility. PT and OT addressed different goals of mobility within treatment session. Vitals taken during session: Pulse rate: 99 bpm, Blood pressure: 140/86 mmHg, MAP: 101, O2 saturation: 94%, O2 flow: Ventilator: Spontaneous , 30 FiO2, PEEP: 5, PS: 5, and Respiratory Rate:12 Required 1 push of 100% FiO2 by RN due to desaturation to 89%. Additionally, his blood pressure dropped 20 points; difficult to assess symptoms due to mental status. Treatment consisted of: Bed Mobility - Supine to Sit # of Assistants: 2 (+RN for vent management) Level of Assistance: Total assistance Device: Head of bed elevated Cuing: Verbal, Tactile Comments: verbal and tactile cues for sequencing Bed Mobility - Sit to Supine # of Assistants: 2 (+RN for vent management) Level of Assistance: Total assistance Device: None Cuing: Verbal, Tactile Comments: verbal and tactile cues for sequencing Therapeutic Functional Activity Position: Sitting Balance Demand: Static Tolerance-time (min): 12 Physical Assistance Required: Total assistance Cuing Required: Verbal, Tactile Cuing Comments: verbal and tactile cues for posture and midline orientation; pt requiring total assist for head control The following coordination of care occurred today: Co-treatment with: Occupational Therapy Patient's nurse was contacted and patient's status was discussed, Discussed patient's care with OT Inpatient AVS Complete - PT: No Patient was left in bed at end of session with call light in reach, all needs met and questions answered. Outcome Measures AM-PAC Inpatient Short Form: AM-PAC Basic Mobility (V.2) How much help from another person do you currently need???If the patient hasn't done an activity recently, how much help from another person do you think he/she would needif he/she tried? 1. Turning from your back to your side while in a flat bed without using bedrails?: Total 2. Moving from lying on your back to sitting on the side of a flat bed without using bedrails?: Total 3. Moving to and from a bed to a chair (including a wheelchair)?: Total 4. Standing up from a chair using your arms (e.g., wheelchair, or bedside chair)?: Total 5. To walk in hospital room?: Total 6. Climbing 3-5 steps with a railing?: Total -[facility] Basic Mobility (V.2) Raw Score: 6 -[facility] Basic Mobility (V.2) Standardized Score: 16.59 Interpretation: Clinicians answer the -[facility] Inpatient Short Form based on observed patient activity and/or clinical judgement (ie. patient can be scored without physically performing each activity) Based on scoring guidelines using the raw score value: Those going to home had an average score at or above 18 Those going to facility had an average score at or below 17 Assessment Discharge Therapy Needs - PT: Ongoing skilled physical therapy Skilled therapy can include physical therapy provided by home health, outpatient clinic, or a post-acute facility. The location of these services is determined by the patient's care team in partnership with patient/family. Level of Care Needed - PT: Assistance with transfers (Comment), Assistance with walking and moving around the home, Assistance with bed mobility, Cognitive assistance needed Barriers to Discharge Home: Current functional status, Fall risk From a physical therapy perspective, the level of care above has been recommended for Mr. Hilario after hospital discharge. This level of care is based on his functional abilities during today's session. This may change throughout the hospital course and will be updated as appropriate. Clinical Impression of today's session: Pt continues to present below baseline. Pt demonstrating impairments in strength, endurance, balance, cognition, and functional transfers. Pt limited this session due to cognition. Pt largely total assistx2 for bed mobility. Pt would continue to benefit from skilled acute PT to address deficits. Rehab potential: Mr. Hilario has Fair potential to achieve established physical therapy goals within the time frame outlined below. Functional Goals and Timeframes: PT Inpatient Goals PT Goal #1: Pt will sit for 10 minutes with vitals WNLs to increase functional independence PT Goal #2: Educate nursing and family on functional dangles to facilitate improved functional mobility Plan Patient unable to verbalize agreement to the plan of care and goals due to mental status or level of consciousness, but family members present to consult and agree with the plan as stated above. Treatment Plan: Plan: Continue with current plan PT Frequency: PT Frequency: 5 times per week PT Inpatient Duration : Until goals are met or hospital discharge Requires Inpatient Follow-Up: Yes PT - Next Inpatient Appointment: 03/10/24 PT Plan Comments: progress bed mobility and sitting tolerance as pt able; Nursing and family transfer training as appropriate Treatment interventions may include: Treatment/Interventions: Therapeutic exercise, Therapeutic functional activity, Neuromuscular re-education, Gait training, Self-care/home management Billing: Time Spent with Patient Therapeutic Interventions Therapeutic Activity (min): 26 min Time Tracking Total Timed Units (min): 26 min Total Treatment Time (min): 26 min Amena Winn P.T., D.P.T. * Rosalina Wagner M.S., O.T. - 03/09/2024 10:14 AM CDT Occupational Therapy Acute Hospital Inpatient Treatment SUBJECTIVE Patient's Name: Say Hilario Referring/Attending Provider: Rufus Ba M.B.B.S. Reason for Referral: Occupational Therapy Evaluation and Treatment History of Present Illness: Say Hilario is a 44 y.o. male who was admitted to [facility] in [place] on 02/28/2024 for Acute Respiratory Failure With Hypoxia (HCC) [J96.01]. Precautions Other Precautions: aspiration, severe cognitive deficits (cognition of 18 mo per family), orthostatic hypotension Pain Assessment: Critical Care Pain Observation Tool: Facial Expression: Relaxed=0 Body Movements: Absence of movements or normal position=0 Compliance with the Ventilator (Intubated Patients): Tolerating ventilator or movement=0 Muscle Tension: Relaxed=0 Critical-Care Pain Observation Score: 0 Subjective Comments: Patient greeted in bed and agreeable to therapy session. Team Communication: The patient's status was discussed and coordination of care occurred with six pack loader operator/Caregiver Present: Mother and Father Co-treat with physical therapy as patient benefits from 2 skilled therapists present in order to optimize safety and progression of mobility and self-care skills. OBJECTIVE Vital Signs: Vitals taken during session: Pulse rate: 99 bpm, Blood pressure: 140/86 mmHg, MAP: 101, O2 saturation: 94%, O2 flow: Ventilator: Spontaneous , 30 FiO2, PEEP: 5, PS: 5, and Respiratory Rate:12 Required 1 push of 100% FiO2 by RN due to desaturation to 89%. Additionally, his blood pressure dropped 20 points; difficult to assess symptoms due to mental status. Outcome Measures: [facility] Inpatient Short Form: Putting on and taking off regular lower body clothing?: Total Putting on and taking off regular upper body clothing?: Total Taking care of personal grooming such as brushing teeth?: Total Bathing (including washing, rinsing, drying)?: Total Toileting, which includes using toilet, bedpan, or urinal?: Total Eating meals?: Total Daily Activities Raw Score (max 24): 6 Daily Activities Standardized Score: 17.07 Interpretation: Based on scoring guidelines using the raw score value: Those going to home had an average score at or above 18 Those going to facility had an average score at or below 17 Clinicians answer the [facility] Inpatient Short Form based on observed patient activity and/or clinical judgement (ie. patient can be scored without physically performing each activity) Cognition: Cognitive impairments at baseline Cognitive Deficits: Unable to follow directions - Cognitive Assessment Method: Therapist observations, Caregiver/family report - Arousal/Alertness: Delayed responses to stimuli, Localized responses to stimuli - Following Commands: Not following commands - Attention: Impairments noted, Impairments with sustained Cognitive Intervention: Engaged patient in reality orientation, Engaged patient in multimodal stimulation and functional conversation to stimulate arousal and orientation Collaborated with family whoprovided therapeutic touch, read patient his favorite book and utilized patient's favorite toys to stimulate arousal via multimodal input (sound, vision, tactile). Therapeutic Interventions: ACTIVITIES OF DAILY LIVING: GROOMING - Assist Level: Total Assist - Patient Location: Supine - Activity: washing face - Therapist Delivery: assessed, instructed, assisted, facilitated - Assist/Cues: verbal, tactile, visual, and manual for hand over hand guiding techniques - No active participation noted BED MOBILITY: SIT<>SUPINE - Assist Level: Total Assist, x 2, + assist for line management - Device: head of bed elevated, sheet - Therapist Delivery: assessed, instructed, assisted, facilitated - Assist/Cues: verbal, tactile, visual, and manual for technique, trunk support, lower extremity support, step by step instructions, initiation - No active participation noted THERAPEUTIC ACTIVITY: - Position: Sitting - Assist Level: Total Assist - Balance Demand: static and within base of support - Tolerance: 12 minutes - Assist/Cues for: midline positioning, posture, head control , trunk support - Activity: Facilitated ADL, Cognitive stimulation, anterior/posterior trunk leans, Education/Training Provided: Provided education on role of occupational therapy in the acute setting. Collaborated with patient and/or family on goals and plan of care. Delirium: - Patient/Family provided education on delirium prevention strategies including sleep hygiene and regular sleep-wake cycle, getting out of bed during the day into the chair if indicated, participating in familiar activities to stay stimulated throughout the day, frequent re-orientation, and using hearing aids, glasses, and/or dentures if appropriate. Patient was left in bed at end of session with call light in reach, all needs met and questions answered. Assessment Discharge Therapy Needs - OT: No further skilled therapy If skilled therapy is recommended, skilled therapy can include occupational therapy provided in home health, outpatient or post-acute facility. The location of these services is determined by patient's care team in partnership with patient/family. Barriers to Discharge Home: Current functional status Level of Care Needed - OT: Cognitive assistance needed, Physical assistance needed (Assist with self cares and mechanical lift for transfers) Clinical Impression: Facilitated therapy session while patient was mechanically ventilated via ET tube with no distress noted, however patient was had a 20 point drop in blood pressure when sitting edge of bed. He demonstrated slow progress towards therapy goals, but did briefly move left upper extremity when repositioning at edge of bed. However he did not visually track or engage in therapeutic activities despite providing multimodal stimulation. His family was present and actively participated in therapy session. Continue to encourage stimulation outside of therapy sessions via patient's family and favorite toys/activities. The patient will benefit from ongoing occupational therapy services while hospitalizedin order to improve engagement and independence in meaningful occupations. Activity Recommendations: - Delirium prevention - Chair mode // Duc to personal power chair 2-3x day - ROM upper and lower extremities 3x/day - Active participation in ADLs (oral cares, face washing, etc) - Edge of bed sitting with PT/OT Current Assist: x 2 bed mobility Plan OT Plan Comments: EOB dangle to facilitate arousal, collaborate with family with stimulating activities, consider reducing frequency once family/ nursing can carry over plan Functional Goals: OT Goal #1: Patient will play with tabletop toys with modified independence to improve quality of life by hospital discharge. OT Goal #1 Status: Slowly progressing Progress: Slow progress, cognitive deficits Rehab potential: Mr. Hilario has fair potential to achieve established occupational therapy goals within the time frame outlined below. OT Frequency: OT Amount: 1 visit per day OT Frequency: 5 times per week OT Inpatient Duration : Until goals are met or hospital discharge Requires Inpatient OT Follow-Up: Yes OT - Next Inpatient Appointment: 03/10/24 Plan: Continue with current plan Treatment interventions may include: Treatment Interventions: Therapeutic functional activity Occupational Therapy Attestation Statement: Patient unable to verbalize agreement to the plan of care and goals due to mental status or level of consciousness, but family members present to consult and agree with the plan as stated above. Billing: Time Spent with Patient Therapeutic Interventions Home Management Training (min): 26 min Time Tracking Total Timed Units (min): 26 min Total Treatment Time (min): 26 min Zunilda Wagner M.S., O.T. * Eloy Epps M.T.S. - 03/09/2024 9:30 AM CDT [facility] Spiritual Care Progress Note Patient: Say Hilario Age:44 y.o. Location: [id number] Reason(s) for encounter: Spiritual Care contact to introduce spiritual care service and assess for potential spiritual care needs. Spiritual Care contact for ongoing spiritual care. Spiritual Care contact per Family's request. Spiritual Care contact for methodist rites/sacramental encounter. Summary: I was able to meet with Say Hilario who was in bed and the healthcare staff attending to him. Family members were present in the room. Say could not engage. He was still intubated. The family was supported and prayer shared for the continued healing of the patient. Spiritual Assessment Jewish Identification / Spiritual Practices: Say is a Protestant Coping and support: Family members were present and supportive of him. Spiritual well-being, hopes and resources: Prayer was offered for the continued healing of the patient. Spiritual Care interventions: Introduced the role as member of the interdisciplinary care team and assessed spiritual care needs/concerns of patient and/or family Therapeutic and supportive listening was provided with the aim of allowing patient/family expression of emotions, hopes and worries regarding current medical condition and life stage. Facilitated methodist/spiritual practices (prayer, blessing, sacred texts, methodist item) with theaim to reinforce patient's spiritual [...] requested. Chaplains can be contacted by paging [phone] ([place]) or [phone] (Jewish). * Rufus Ba M.B.B.S. - 03/09/2024 7:08 AM CDT SUBJECTIVE I have personally seen and examined the patient, reviewed all relevant labs, radiology studies, andchart notes and have discussed the assessment and plan in person with the inter professional critical care team. I have reviewed the team note associated with today's encounter and agree with this documentation with the following additions and exceptions: Brief Summary: Mr. 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 Interval Events: Minimal vent setting- Spont 01/15 30% Secretions improved Night 03/08: - remains intubated - no acute events Day 03/07: - Kept NPO - Venting PEG-J - Aggressive bowel regimen with good results. Abd still distended. - Stopped ditropan - Bactrim day - No changes to anti-epileptics - Goals of care discussion. Tracheostomy procedure is within goals of care if he needs prolonged ventilator weaning. OBJECTIVE VITAL SIGNS I have reviewed the current vital sign data as applicable. Vitals: 03/09/24 0700 BP: 150/68 Pulse: 98 Resp: 11 Temp: SpO2: 93% PHYSICAL EXAM Intubated, opening eyes spontaneously and withdraws to pain. Abdomen distended DIAGNOSTICS I have reviewed relevant laboratory, imaging, and other diagnostics as applicable. 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 However, they are certain Say would not like to be in a retail planning manager care facility or be on a ventilator chronically. Mom was a nurse and is very motivated to help with trach cares at home if needed. Improvement in mental status, now withdrawing to pain Will continue with daily assessment for extubation. If extubation not possible by Day 11, will planfor a trach Plan: -Lung protective mechanical ventilation -SBT -Bactrim -Anticoagulation with Apixaban -Continue Clobazam, Felbamate, Lamotrigine, Levetiracetam, Baclofen -Bowel regimen -ICU monitoring and cares Critical care time: 35 minutes. This is time spent at this critically ill patient's bedside actively involved in patient care as well as the coordination of care and discussions with the patient's family. This does not include any procedural time which has been billed separately. * Rashad Sal APRN, C.N.P., M.S.N. - 03/09/2024 6:40 AM CDT SUBJECTIVE Brief Summary: Mr. Hilario is a 44-year-old male patient with medical comorbidities consisting of Macomb-Gastaut syndrome who was admitted to the medical intensive care unit for hypoxic and hypercapnic respiratory failure in the setting of community- acquired pneumonia. Interval Events: Night 03/08: - remains intubated - no acute events Day 03/07: - Kept NPO - Venting PEG-J - Aggressive bowel regimen with good results. Abd still distended. - Stopped ditropan - Bactrim day - No changes to anti-epileptics - Goals of care discussion. Tracheostomy procedure is within goals of care if he needs prolonged ventilator weaning. OBJECTIVE I have reviewed the current vital sign data as applicable. PHYSICAL EXAM General Appearance: 44 year old male, intubated and mechanically ventilated, comatose. Neurologic:opens eyes occasionally, pupils 8 mm equal and reactive, flexion to painful stimulus Heart: RRR without murmur, gallop, or rubs. No ectopy. Lungs: clear to auscultation. Abdomen: Distended, tympanic to percussion. G-J tube site intact. Extremities: extremities normal, warm and well-perfused, 2+ edema. DIAGNOSTICS I have reviewed relevant laboratory, imaging, and other diagnostics as applicable. 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 Mental status slightly improved but overall unclear as to what his neurologic prognosis will be. Will continue with neurologic assessments. Doing well with spontaneous breathing modes on vent and minimal support. Finishing 7 day course of Bactrim for stenotrophomonas in pulmonary secretions. Also has ileus for which tube feeds stopped on 03/07 and bowel regimen increased. Had BM yesterday but abdomen is still distended. Will continue with aggressive bowel regimen and vent gastric port to help with distension. Had goals of care discussion with parents Shelby and Andrés yesterday. They are hopeful his mental status will improve in the coming days to the point where he can be safely extubated. If this is not thecase, they are agreeable to tracheostomy and are prepared in the event of a prolonged ventilator wean process. Goals for Say are to return home under the care of his parents. They feel he would not want detention facility and ventilator dependence. Goals of care discussion to continue as Say's situation evolves. Taking one day at a time. Plan By Systems: NEURO # Macomb-Gastaut Syndrome # Developmental Delay # History of Lateral Medullary Stroke # Sedation # Query Subclinical Seizure Activity - Seizure precautions - Sedation: Off since 03/02. - Daily SAT/SBT - Continue home medications: Baclofen 10 mg QID (decreased from 20 mg QID on 03/06), Cannabidiol 400mg AM and 600 mg PM, Clobazam 15 mg AM and 10 mg PM, Felbamate 1500 mg AM and 1200 mg BID, Lamotrigine 350 mg BID and 350 mg QHS, Levetiracetam 1500 mg AM and 1600 mg PM, and Rufinamide 200 mg AM [id number] mg PM. Levels pending - Pain regimen: Acetaminophen 1000 m g Q6H PRN - Head CT 03/02: Negative - Neurology ICU signed off 03/08. EEG and MRI from 03/06 unrevealing. Continued clinical observation. - Followed up on levels. No changes to anti-epileptics. CARDIAC/CV - Maintain MAP > 60-65 - Monitoring with cuff pressures. Arterial line removed yesterday. PULMONARY # Chronic Nocturnal Supplemental Oxygen (1 L nasal cannula) # Community Acquired Pneumonia # Acute on Chronic Respiratory Failure with Hypoxemia # Mechanical Intubation # Status Post Bronchoscopy 03/01/24 - Maintain SpO2 > 92% - Continue mechanical ventilation: Pressure support - Intubated 03/01 (ETT 7.5) - Chronic oxygen home use: 1 L NC nocturnally. - Daily SBT - Pulmonary hygiene: DuoNeb QID PRN, Chlorhexidine mouthwash BID, 3% saline QID PRN, and frequent oral care. RENAL # Chronic urine retention - At home, he has an I/O catheter routine 4x a day. Gama catheter was placed when he was admitted to the hospital. - Strict I&O and daily weight - Monitor renal function and electrolytes - Avoid nephrotoxins and renally adjust medications as able - Mild hyperkalemia, likely due to bactrim. Improving. - Cystatin C mildly elevated. Urine output drifted overnight likely in setting of poor intake with ileus. Gentle hydration with IVF. GI # Calista Tube Status # Oozing/Bleeding from Calista Tube Site # Abd distension # Functional ileus - Diet: NPO - Hold tube feeds for now. Consider resuming trickle feeds if bowel function improves. Previously on Peptamen AF. - Antiemetics: None - Bowel regimen: Bisacodyl suppository 10 mg daily PRN, MiraLAX 17 g daily, and Senokot-S 2 tablet BID. PRN enema. - GI PPX: Pantoprazole 40 mg IV daily - Vent G-tube port - CT abd/pelvis 03/07: No mechanical small or large bowel obstruction. Findings in the small and large bowel are suggestive of a functional ileus. ID # Community Acquired Pneumonia # Leukocytosis, resolved - Blood cultures 02/27 OSH: 1/2 bottles + GPC - Blood culture 03/01: NGTD - Sputum cultures 02/28: 2+ Yeast and Stenotrophomonas 2+ - Antibiotics: - Cefepime (03/02-03/03) - Vancomycin (03/01) - Doxycycline (02/27 - 03/02) - Ceftriaxone (02/27 - 03/01 and 03/03) - Bactrim (03/03, day 7 of 7) HEME/ONC # Anemia # Left Lower Extremity DVT - No signs of active/acute bleeding - Monitor CBC daily - DVT PPX: Apixaban 5 mg BID (L LE DVT) ENDOCRINE - Monitor blood glucose 4 times daily - Notify provider for blood glucose > 140 or <70 - Hypoglycemia protocol ordered RHEUM/MUSK # No active issues OTHER PT/OT/ST: As indicated by therapy services Code Status: Full Code Disposition: - ICU Level Cares - Family: Mother, Shelby. Father, Andrés. - baseline cognitive status is approximately [id number]. * Anastasiya Landrum RDN, LD - 03/08/2024 3:04 PM CDT Nutrition Care Plan Follow Up Clinical [...] for ileus after imaging of abdomen performed. Feeds were restarted on 03/03, reached goal on 03/05 and were held on 03/07 due to functional ileus. Current nutrition orders: none at this time Tube information: GI Tubes (Adults) Gastrostomy-jejunostomy;Percutaneous endoscopic 22 Fr Left;Lower;Quadrant (abdomen) (Active) Placement Date/Time: 12/29/23 1309 Placed by: AL6 GI Tube Type: Gastrostomy-jejunostomy;Percutaneous endoscopic Low Profile? : Yes Does it have a balloon? : Yes Balloon Volume: 10 mL GI Tube Size: 22Fr Stoma Length (cm): 3.5 Tube Location: L... Medications: Scheduled Meds:acetic acid, 1 Application, topical, TID apixaban, 5 mg, gastric tube, BID baclofen, 10 mg, gastric tube, 4x Daily cannabidioL, 400 mg, gastric tube, Daily And cannabidioL, 600 mg, gastric tube, Daily at bedtime chlorhexidine, 15 mL, swish & spit, BID cloBAZam, 10 mg, gastric tube, QPM cloBAZam, 15 mg, gastric tube, QAM felbamate, 1,200 mg, gastric tube, BID felbamate, 1,500 mg, gastric tube, Daily before breakfast hydrocortisone, , topical, TID lactulose, 10 g, small bowel tube, TID lamoTRIgine, 350 mg, gastric tube, QAM And lamoTRIgine, 350 mg, gastric tube, Every afternoon And lamoTRIgine, 300 mg, gastric tube, Daily at bedtime levETIRAcetam, 1,500 mg, gastric tube, QAM levETIRAcetam, 1,600 mg, gastric tube, Daily at bedtime nystatin, 1 Application, topical, TID pantoprazole, 40 mg, intravenous, Daily polyethylene glycol, 17 g, gastric tube, Daily rufinamide, 200 mg, gastric tube, QAM rufinamide, 400 mg, gastric tube, Daily at bedtime sennosides, 10 mL, small bowel tube, BID sodium chloride, 10-30 mL, intravenous, Q7 Days sodium chloride, 10-30 mL, intravenous, Q7 Days sodium chloride, 3 mL, intravenous, Q24H JULIO sulfamethoxazole-trimethoprim, 3.5 mg/kg of trimethoprim, gastric tube, Q8H Continuous Infusions:NaCl 0.9% infusion, 3 mL/hr, Last Rate: Stopped (03/08/24 1350) Pertinent Labs: reviewed GI Function: Last BM Date: 03/07/24, [place] Stool Chart: Type 7: Watery, no solid pieces, Passing Flatus: Yes. Estimated Needs: Calories: 2275-9000 (MSJ Fwqho=1482 kcal) calories/day Method to Estimate Energy Needs: kcal/kg (20-25 kcal/kg) Weight Used for Equation Calculations: 66.9 kg Protein: 80 - 100 grams/day Method to Estimate Protein Needs (g/kg): 1.2 - 1.5 gm/kg Weight Used to Calculate Protein Needs (Kg): 66.9 kg PLAN When medically appropriate, resume enteral nutrition Formula: Peptamen AF Goal: 55 mL/hr x 24 hours (at goal) TF Supplements: none Water flushes: None ordered Clinical Nutrition will continue to follow. For questions about patient's nutritional care please contact pager [phone] on weekdays 07:30-16:00 or [phone] on weekends/holidays ([facility]). * Jose De Jesus Dunn, D., R.Ph. - 03/08/2024 8:36 AM CDT Pharmacist Progress Note Reason for admission: 44 year old male admitted to [facility] Medical ICU on 02/28/2024 for acute hypoxemicrespiratory secondary to community acquired pneumonia. 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 Family will provide guidance on when to use rescue benzodiazepines vs extra 200 mg of Keppra if needed. Neuro guiding antiepileptic drug levels and if adjustments are needed Cardiovascular: SR, BP stable Respiratory: ASV 30%, intubated due to difficulty maintaining secretions Neph: Cr 0.46, stable, baseline 0.3-0.4, cystatin C stable, eGFR demonstrating normal renal function ID: Steno pneumonia Ceftriaxone 02/27- and 03/03. 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 SpotEEG doesn't show nonconvulsive status. Patient has not returned to baseline mentation since admission. True trough AED levels elevated for clobazam, levetiracetam, and felbamate although he has had si milarly high levels in past. Neurology consulted and recommended to continue same doses. Acute hypoxic respiratory failure: : BAL cultures growing Stenotrophomonas maltophilia and antibiotics were transitioned to Bactrim 03/03-: targeting 12 mg/kg for total daily dose. Acute LLE DVT: Continuing Apixaban. Had some oozing around G-tube site as well as some mucosal oozing in mouth/nose thus deferred the initial 10 mg BID load. Given levetiracetam interaction, checked apixaban anti-Xa peak, within expected range. Jose De Jesus Dunn Pharm.D., R.Ph. [phone] * Rufus Ba M.B.B.S. - 03/08/2024 7:01 AM CDT SUBJECTIVE I have personally seen and examined the patient, reviewed all relevant labs, radiology studies, andchart notes and have discussed the assessment and plan in person with the inter professional critical care team. I have reviewed the team note associated with today's encounter and agree with this documentation with the following additions and exceptions: Brief Summary: Mr. Hilario is a 44-year-old male with medical history significant for Ayaan-Gastaut syndrome with recurrent seizures and cognitive delay who was admitted to the MICU 02/27/2014 for acute hypoxemic respiratory failure secondary to aspiration pneumonia necessitating intubation 03/01/2024 and complicated by a left femoral DVT. Interval Events: EEG and MRI unrevealing Low dose Norepinephrine Minimal vent setting- ASV , 100% spontaneous, PEEP 5 Secretions moderate and thick Night 03/07: - remains intubated - no acute events Day 03/07: - Occasionally opening eyes. CPAP pressure support on vent most of the day. - Venting G-tube port for abdominal distension. Abd x ray concerning for volvulus. Stat Abd/Pelvis CT. Functional ileus. Holding tube feeds. More aggressive with bowel regimen. - Bactrim day 5 of 7 - No changes to anti-epileptics OBJECTIVE VITAL SIGNS I have reviewed the current vital sign data as applicable. PHYSICAL EXAM Intubated, no response to pain DIAGNOSTICS I have reviewed relevant laboratory, imaging, and other diagnostics as applicable. ASSESSMENT / PLAN #1 Acute hypoxemic respiratory failure secondary to aspiration pneumonia; intubated 03/01/2024 #2 Pneumonia secondary to stenotrophomonas maltophilia #3 Encephalopathy on the background of severe cognitive delay #4 Acute left femoral deep venous thrombosis; on apixaban #5 Dysphagia, on long-term tube feeds via a gastrojejunal tube (placed 2019, previously G-tube; last replaced 12/28) #6 Bleeding around PEJ tube after initiation of therapeutic anticoagulation; resolved #7 Macomb-Gastaut syndrome with recurrent seizures and severe cognitive delay #8 Probable sleep disordered breathing; further evaluation deferred given complexities with any PAPimplementation #9 History of ALL, status post treatment with chemoradiation at 20 months #10 History of prior urinary infections secondary to nephrolithiasis, 2022 #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 Will continue daily reassessment of mental status Plan: -Lung protective mechanical ventilation -SBT -Bactrim -Anticoagulation with Apixaban -Continue Clobazam, Felbamate, Lamotrigine, Levetiracetam, Baclofen -Tube feeding -Goals of care discussion -ICU monitoring and cares Critical care time: 35 minutes. This is time spent at this critically ill patient's bedside actively involved in patient care as well as the coordination of care and discussions with the patient's family. This does not include any procedural time which has been billed separately. * Rashad Sal APRN, C.N.P., M.S.N. - 03/08/2024 6:32 AM CDT SUBJECTIVE Brief Summary: Mr. Hilario is a 44-year-old male patient with medical comorbidities consisting of Ayaan-Gastaut syndrome who was admitted to the medical intensive care unit for hypoxic and hypercapnic respiratory failure in the setting of community- acquired pneumonia. Intubated on 03/01 for airway protection. Interval Events: Night 03/07: - remains intubated - no acute events Day 03/07: - Occasionally opening eyes. 5/5 pressure support on vent most of the day. - Venting G-tube port for abdominal distension. Abd x ray concerning for volvulus. Stat Abd/Pelvis CT. Functional ileus. Holding tube feeds. More aggressive with bowel regimen. - Bactrim day 5 of 7 - No changes to anti-epileptics OBJECTIVE I have reviewed the current vital sign data as applicable. PHYSICAL EXAM General Appearance: 44 year old male, intubated and mechanically ventilated, comatose. Neurologic:opens eyes occasionally, pupils equal and reactive, flexion to painful stimulus Heart: RRR without murmur, gallop, or rubs. No ectopy. Lungs: clear to auscultation. Abdomen: Distended, tympanic to percussion. G-J tube site intact. Extremities: extremities normal, warm and well-perfused, 2+ edema. DIAGNOSTICS I have reviewed relevant laboratory, imaging, and other diagnostics as applicable. 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 Neurology following. Mental status slightly improved but overall unclear as to what his neurologic prognosis will be. Will continue with neurologic assessments. Doing well with spontaneous breathing modes on vent and minimal support. Day 6 of 7 of Bactrim for stenotrophomonas in pulmonary secretions. Plan By Systems: NEURO # Macomb-Gastaut Syndrome # Developmental Delay # History of Lateral Medullary Stroke # Sedation # Query Subclinical Seizure Activity - Seizure precautions - Sedation: Off since 03/02. - Daily SAT/SBT - Continue home medications: Baclofen 10 mg QID (decreased from 20 mg QID on 03/06), Cannabidiol 400mg AM and 600 mg PM, Clobazam 15 mg AM and 10 mg PM, Felbamate 1500 mg AM and 1200 mg BID, Lamotrigine 350 mg BID and 350 mg QHS, Levetiracetam 1500 mg AM and 1600 mg PM, and Rufinamide 200 mg AM [id number] mg PM. Levels pending - Pain regimen: Acetaminophen 1000 m g Q6H PRN - Head CT 03/02: Negative - Neurology ICU following. EEG and MRI from 03/06 unrevealing. - Followed up on levels. No changes to anti-epileptics. CARDIAC/CV # Hypotension - Maintain MAP > 60-65 - Arterial line - intermittent Norepinephrine to maintain MAP goal - Fluid status: net negative PULMONARY # Chronic Nocturnal Supplemental Oxygen (1 L nasal cannula) # Community Acquired Pneumonia # Acute on Chronic Respiratory Failure with Hypoxemia # Mechanical Intubation # Status Post Bronchoscopy 03/01/24 - Maintain SpO2 > 92% - Continue mechanical ventilation: Pressure support - Intubated 03/01 (ETT 7.5) - Chronic oxygen home use: 1 L NC nocturnally. - Daily SBT - Pulmonary hygiene: DuoNeb QID PRN, Chlorhexidine mouthwash BID, 3% saline QID PRN, and frequent oral care. RENAL # Chronic urine retention - Gama catheter - Strict I&O and daily weight - Monitor renal function and electrolytes - Avoid nephrotoxins and renally adjust medications as able - Ditropan 5 mg TID - Mild hyperkalemia this morning. Likely due to bactrim. Will continue to monitor. GI # Calista Tube Status # Oozing/Bleeding from Calista Tube Site # Abd distension # Functional ileus - Diet: NPO - Hold tube feeds. Previously on Peptamen AF. - Antiemetics: None - Bowel regimen: Bisacodyl suppository 10 mg daily PRN, MiraLAX 17 g daily, and Senokot-S 2 tablet BID. PRN enema. - GI PPX: Pantoprazole 40 mg IV daily - Vent G-tube port - CT abd/pelvis 03/07: Mechanical small or large bowel obstruction. Findings in the small and large bowel are suggestive of a functional ileus. ID # Community Acquired Pneumonia # Leukocytosis, resolved - Blood cultures 02/27 OSH: 1/2 bottles + GPC - Blood culture 03/01: NGTD - Sputum cultures 6/18: 2+ Yeast and Stenotrophomonas 2+ - Antibiotics: - Cefepime (03/02-03/03) - Vancomycin (03/01) - Doxycycline (02/27 - 03/02) - Ceftriaxone (02/27 - 03/01 and 03/03) - Bactrim (03/03, day 6 of 7) HEME/ONC # Anemia # Left Lower Extremity DVT - No signs of active/acute bleeding - Monitor CBC daily - DVT PPX: Apixaban 5 mg BID (L LE DVT) ENDOCRINE - Monitor blood glucose 4 times daily - Notify provider for blood glucose > 140 or <70 - Hypoglycemia protocol ordered RHEUM/MUSK # No active issues OTHER PT/OT/ST: As indicated by therapy services Code Status: Full Code Disposition: - ICU Level Cares - Family: Mother, Shelby. Father, Andrés. - baseline cognitive status is approximately 63-[id number]-sic. * Malini Lamb L.Tayla.S.W., M.S.W. - 03/07/2024 3:30 PM CDT SUBJECTIVE Social Work met with the patient, parents, and family members in the patient's room on 6 . Social Work provided the patient's parents with name and contact information for [facility]. [facility] provides RN and [facility] in home services for medically complex individuals. The family had used [facility] services in the past and were very happy with them. They had to switch services as they moved and [facility] did not have staffing for the area that the family moved to. Social Work encouraged the family to call, start the assessment process and then to keep calling the agency every few weeks if the agency does not have staffing immediately, as staffing availability is always changing. OBJECTIVE Say Hilario is a 44 year old male who resides at home with his parents. The patient is in need of full cares. His mother, Shelby, informed that when Say is feeling better, his baseline abilities are that of an 18 month old. The patient's parents are his full-time caregivers. The patient is on a CAC waiver through [facility], his parent's/guardians gave this neonatal social worker permission to contact [facility] to inquire about available services under the [facility] waiver. Social Work called and left a message with the CAC worker. The patient receives 3 longterm visits per week through [facility]. Their services have been reconnected as has [facility] for patients oxygen needs and services through [facility] for patients TPN nutrition needs. ASSESSMENT / PLAN ASSESSMENT Patient was sleeping when social work entered the room. Both parent's were present as well as otherfamily members. The patient's parents are very committed and attentive caregivers. The are extremely knowledgeable regarding the patients diagnosis, medical and care needs. PLAN - The patient will return to his parents home in [place], [place] at time of discharge. - The patient's family will provide transportation at time of discharge. - Social Work will continue to follow for supportive visits and discharge planning needs. 1.) Patient will return home with their previous nutrition services. Dialysis/Infusion - Admitted Since 02/28/2024 Service Provider Selected Services Address Phone Fax Patient Preferred [facility] [address], [facility] [phone] -- Contact: Tc They will continue to provide the nutrition and supplies for this patient. What infusion is being provided (ie: antibiotics, nutrition, etc): TPN Nutrition Peptamen 3 cartons/day (250 mL/carton. 90 cartons per month). Prosource unflavored 3 packs/day (90 per month). Pump rate: Peptamen 85 mL/hour x 9 hours. Prosource 85 mL/hour x 9 hour. If HPN is following, they will [...] Preferred [facility] [address] [facility] [address] [phone] -- Contact: Jesica What Care are they providing for the patient: Snf visit 7 days a week for 1 hour. How do we reach your agency on a weekend/holiday? [phone] NURSING: - Complete documentation in the Discharge Navigator including Nursing Report Info and Facility/NextLevel of Care Info - Call report and arrange for the patient???s first visit. - Send required packet of dismissal information with patient, including After Visit Summary and advance directive. PRIMARY SERVICE: - Please provide a non-[facility] home health order for resumption of previous [...] Selected Services Address Phone Fax Patient Preferred [facility] Durable Medical Equipment [address] [facility] [phone] -- Contact: Imelda Respiratory Equipment : Concentrator [...] continue to follow and assist if needs arise Emma Kim, M.S.W. 03/08/24 * Rosalina Wagner M.S., O.T. - 03/07/2024 3:18 PM CDT 03/07/24 1518 Reason Therapy Missed Reason Therapy Missed Medical hold Patient out of room for imaging during multiple attempts due to concern for volvulus. Will initiateOT/PT plan of care on 03/08/24, or when patient is medically stable. Zunilda Wagner M.S., O.T. * Rashad Sal APRN, C.N.P., M.S.N. - 03/07/2024 12:34 PM CDT SUBJECTIVE Brief Summary: Mr. Hilario is a 44-year-old male patient with medical comorbidities consisting of Ayaan-Gastaut syndrome who was admitted to the medical intensive care unit for hypoxic and hypercapnic respiratory failure in the setting of community- acquired pneumonia. Interval Events: Night 03/06: - remains intubated - no acute events Day 03/06: - eyes opening intermittently. - Neurology following. EEG changes consistent with underlying chronic Ayaan- Gastaut and medications. MRI unrevealing. Recommended baclofen decrease from 20 QID to 10 mg QID. - Bactrim continues for Stenotrophomonas in the tracheal secretions - Norepinephrine intermittently off. OBJECTIVE I have reviewed the current vital sign data as applicable. PHYSICAL EXAM General Appearance: 44 year old male, comatose. Neurologic:opens eyes occasionally, upward gaze, pupils equal and reactive, flexion to painful stimulus Heart: RRR without murmur, gallop, or rubs. No ectopy. Lungs: clear to auscultation. Abdomen: Distended, tympanic to percussion. G-J tube site intact. Extremities: extremities normal, warm and well-perfused, 2+ edema. DIAGNOSTICS I have reviewed relevant laboratory, imaging, and other diagnostics as applicable. 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 Neurology following. Mental status slightly improved but overall unclear as to what his neurologic prognosis will be. Will continue with neurologic assessments. Doing well with spontaneous breathing modes on vent and minimal support. Day 5 of 7 of Bactrim for stenotrophomonas in pulmonary secretions. Plan By Systems: NEURO # Macomb-Gastaut Syndrome # Developmental Delay # History of Lateral Medullary Stroke # Sedation # Query Subclinical Seizure Activity - Seizure precautions - Sedation: Off since 03/02. - Daily SAT/SBT - Continue home medications: Baclofen 10 mg QID (decreased from 20 mg QID on 03/06), Cannabidiol 400mg AM and 600 mg PM, Clobazam 15 mg AM and 10 mg PM, Felbamate 1500 mg AM and 1200 mg BID, Lamotrigine 350 mg BID and 350 mg QHS, Levetiracetam 1500 mg AM and 1600 mg PM, and Rufinamide 200 mg AM [id number] mg PM. Levels pending - Pain regimen: Acetaminophen 1000 m g Q6H PRN - Head CT 03/02: Negative - Neurology ICU following. EEG and MRI from 03/06 unrevealing. - Followed up on levels. No changes to anti-epileptics. CARDIAC/CV # Hypotension - Maintain MAP > 60-65 - Arterial line - intermittent Norepinephrine to maintain MAP goal - Fluid status: net negative PULMONARY # Chronic Nocturnal Supplemental Oxygen (1 L nasal cannula) # Community Acquired Pneumonia # Acute on Chronic Respiratory Failure with Hypoxemia # Mechanical Intubation # Status Post Bronchoscopy 03/01/24 - Maintain SpO2 > 92% - Continue mechanical ventilation: Pressure support - Intubated 03/01 (ETT 7.5) - Chronic oxygen home use: 1 L NC nocturnally. - Daily SBT - Pulmonary hygiene: DuoNeb QID PRN, Chlorhexidine mouthwash BID, 3% saline QID PRN, and frequent oral care. RENAL - Gama catheter - Strict I&O and daily weight - Monitor renal function and electrolytes - Avoid nephrotoxins and renally adjust medications as able - Ditropan 5 mg TID - Mild hyperkalemia this morning. Likely due to bactrim. Will continue to monitor. GI # Calista Tube Status # Oozing/Bleeding from Calista Tube Site # Abd distension - Diet: NPO and TF: Peptamen AF with a goal of 55 cc/hr. - Antiemetics: None - Bowel regimen: Bisacodyl suppository 10 mg daily PRN, MiraLAX 17 g daily, and Senokot-S 1 tablet BID. PRN enema. - GI PPX: Pantoprazole 40 mg IV daily - Vent G-tube port - PEG-J nurse consult to evaluate tube. Abdominal X-ray to assess for ileus. ID # Community Acquired Pneumonia # Leukocytosis, resolved - Blood cultures 02/27 OSH: 1/2 bottles + [facility] - Blood culture 03/01: NGTD - Sputum cultures 02/28: 2+ Yeast and Stenotrophomonas 2+ - Antibiotics: - Cefepime (03/02-03/03) - Vancomycin (03/01) - Doxycycline (02/27 - 03/02) - Ceftriaxone (02/27 - 03/01 and 03/03) - Bactrim (03/03, day 5 of 7) Will try to follow up results of the 02/27 OSH blood cultures. HEME/ONC # Anemia # Left Lower Extremity DVT # Oozing/Bleeding from Calista Tube Site - No signs of active/acute bleeding - Monitor CBC daily - DVT PPX: Apixaban 5 mg BID (L LE DVT) - ENDOCRINE # Hypoglycemia secondary to lack of Tube Feeding - Monitor blood glucose 4 times daily - Notify provider for blood glucose > 140 or <70 - Hypoglycemia protocol ordered RHEUM/MUSK # No active issues OTHER PT/OT/ST: As indicated by therapy services Code Status: Full Code Disposition: - ICU Level Cares - Family: MotherShelby - baseline cognitive status is approximately [id number]. * Eloy Epps M.T.S. - 03/07/2024 9:30 AM CDT [facility] Spiritual Care Progress Note Patient: Say Hilario Age:44 y.o. Location: [id number] Reason(s) for encounter: Spiritual Care contact to introduce spiritual care service and assess for potential spiritual care needs. Spiritual Care contact for ongoing spiritual care. Spiritual Care contact per Family's request. Spiritual Care contact for methodist rites/sacramental encounter. Summary: I was able to meet with Say Hilario who was in bed, intubated and unable to engage. Familymembers were present together with a health care staff. The family shared that he was almost the same. The family narrated that he opened his eyes two days back and today. Prayer was shared for the continued healing of the patient. Spiritual Assessment Jewish Identification / Spiritual Practices: Say is a Protestant Coping and support: Family members were present and supportive of him. Spiritual well-being, hopes and resources: Prayer was offered for the continued healing of the patient Spiritual Needs and/or Concerns: No new spiritual needs identified at the time. Spiritual Care interventions: Introduced the role as member of the interdisciplinary care team and assessed spiritual care needs/concerns of patient and/or family Therapeutic and supportive listening was provided with the aim of allowing patient/family expression of emotions, hopes and worries regarding current medical condition and life stage. Facilitated methodist/spiritual practices (prayer, blessing, sacred texts, methodist item) with theaim to reinforce patient's spiritual [...] requested. Chaplains can be contacted by paging [phone] ([place]) or [phone] (Jewish). * Ralph Stafford M.D. - 03/07/2024 8:55 AM CDT NEUROLOGY ICU CONSULTS PROGRESS NOTE HISTORY OF PRESENT ILLNESS: Mr. Say Hilario is a 44 y.o. 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 Interval Events: - up trending temperature with T-max of 38?? C overnight, hemodynamically stable on intermittent norepinephrine from off to 0.05, intubated (mechanical ventilation day 6) on ASV 30% FiO2, peep of 5 with h labs today demonstrating hemoglobin of 7.7 with white count of 5.7, potassium of 5.4 and creatinine of 0.5 with felbamate level of 181.6, levetiracetam level of 86.7 clobazam level of 221 (N-D methylclobazam 5420), lamotrigine of 12.9, rufinamide in process, - Remains comatose but perhaps slightly more responsive to painful stimuli today Home Regimen: Baclofen 20 mg q.i.d. Cannabidiol 400 mg a.m., and 600 mg p.m. Clobazam 15 mg in the a.m. and 10 mg in the evenings Felbamate 1500 mg before breakfast and 1200 mg at 2:00 p.m. and 2100 Lamictal 350 mg in the a.m., 350 mg at 2:00 p.m., 300 mg at bedtime Levetiracetam 1500 mg in the a.m. and 1600 mg q.h.s. with PRN 200 mg t.i.d. Rufinamide 200 mg AM and 400 mg q.h.s. Keppra level on 03/02/2024; 134 (compared to 71 on 02/02/2024) Lamotrigine level 03/02/2024: 19.4 (compared to 13.9 on 02/02/2024) Felbamate level: 246.2 (Compared to 145 on 02/01) Clobazam and Metabolite: 268 and 5810 (compared to 313 and >08109 respectively) Rufinamide: 11.6 I have reviewed the current medication list. OBJECTIVE Temperature: [36.3 ??C-38 ??C] 38 ??C Heart Rate: [80-107] 100 Resp Rate: [10-27] 15 Arterial Line BP: (84-128)/(43-63) 87/48 FiO2 (%): [30 %-50 %] 30 % SpO2: [91 %-100 %] 93 % Pulse Rate: [79-107] 100 Physical Exam: General: Comatose , FOUR score [id number] HEENT: ET tube in place, dentition intact with cough reflex Cardiac: Regular rate and rhythm Respiratory: Intubated and ventilated, slightly improved lower lung sounds with mild rhonchi and transmitted upper airway noises Abdomen: Soft, non distended, bowel sounds present Skin: No significant rash or lesions . Neuro: Pupils midposition, preserved oculocephalic, no skew or gaze deviation, no blink to threat, corneal and pupillary reflex intact, flexion to painful stimuli ASSESSMENT / PLAN Mr. Say Hilario is a 44 y.o. 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 #1 Persistent Coma #2 Hypoxemic and hypercapnic respiratory failure, requiring mechanical ventilation #3 Ayaan-Gastaut Syndrome with complicated by refractory epilepsy on numerous anti seizure medications #4 Baseline cognitive impairment #5 Cavernous hemangioma, right cerebellar hemisphere #6 Supratherapeutic anti seizure medication levels, with spot check #7 Spasticity, on chronic baclofen Mr. Hilario is a challenging case of a patient presenting with acute respiratory failure requiring intubation mechanical ventilation now demonstrating persistent coma in the context of a known history of refractory epilepsy, multifactorial cognitive impairment, and polypharmacy to manage his multi morbidity. Undoubtedly, Mr. 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 His antiepileptic levels have are elevated although similar to historical levels and given his refractory seizures requires higher troughlevels in order to minimize breakthrough seizure. Additionally, reviewing his historical levels, these are not dramatically different than his outpatient trough levels of antiepileptics dating back to 2021. Therefore, we would be hesitant to dose reduce these further given his predisposition to recurrent seizure activity. MRI yesterday demonstrated a small left frontal convexity meningioma (approximately 5 mm) without cortical involvement and we discussed with his family that this is independent and not associated with his altered mental status with no indication for intervention at this time. He has a prior history of remote radiation history with ALL but this seems more likely to be a primary rather than secondary meningioma. He remains comatose, but today his exam is slightly improving with improved furrowing of the eyebrows, flexion with painful stimuli of the upper extremities although he does not strictly localize. Prognostication is very challenging at this time but we shared with his family that we see no data to support any structural, toxic metabolic, epileptic or clear polypharmacy which would be a barrier tohis neurologic recovery. Time alone will be important, although the potential for him to recover tohis preadmission functional status is unclear at this time. We did discuss the potential for tracheostomy but would favor continuing supportive management at this time. We will continue to be engagedin daily re-evaluation and goals of care moving forward Recommendations: - Continue dose reduced Baclofen 10 mg 4 times daily - Continue all antiepileptics at current dosing - We will continue to be engaged on daily reassessment and goals of care discussions - For small left convexity meningioma, we did discuss that interval follow-up with repeat MRI in the next 1-2 years could be considered with his primary care provider/neurologist Patient seen and discussed with our aviation consultant Dr. Delatorre. We appreciate the consult. Please page [phone] with any questions regarding our recommendations. Glen Stafford M.D. 03/07/24 Associated attestation - Jose Delatorre M.D. - 03/07/2024 12:41 PM CDT I have reviewed the history and physical examination findings of Dr. Ralph Stafford , and have personally seen the patient. I agree with their documentation other than where indicated in my note. Unless overnight. He remains comatose, yet his examination is slightly improved this morning (see below). Trough AEDs levels are high, but in line with although measurements. Levetiracetam 86.7 mcg per mL. It was 70.9 and 82.5 1 month ago at 11 months ago, respectively. Felbamate 181.6 mcg per mL. It was 145 and 210 1 month and 11 months ago, respectively. Lamotrigine is at range, mcg per mL. N-desmethylclobazam 5420 ng/mL, compared to more than 10,000 and 8920 1 month and 1 year ago, respectively. Rufinamide is pending, but recent levels were not supra therapeutic (11.6 micrograms/milliliter). MRI shows no acute lesions that can explain his altered mental status. There is a small right frontal dural-based mass, likely meningioma, with no mass effect. Examination: Coma, pupils are 4 mm and minimally reactive. Reminder brainstem reflexes are present.Patient's grimaces to pain and lifts eyebrows after sustained stimulation. He weakly withdraws to pain in 4 limbs. Tone is decreased. Toes are mute. ASSESSMENT / PLAN #1 Persistent Coma #2 Hypoxemic and hypercapnic respiratory failure, requiring mechanical ventilation #3 Macomb-Gastaut Syndrome with complicated by refractory epilepsy on numerous anti seizure medications #4 Baseline cognitive impairment #5 Cavernous hemangioma, right cerebellar hemisphere #6 Supratherapeutic anti seizure medication levels, with spot check #7 Spasticity, on chronic baclofen Patient's examination, medical workup, and clinical evolution are suggestive of diffuse encephalopathy over poor brain substrate. Although AED levels are high, the patient has proven to be at his baseline with the same, or higher values in the past. I think observation without changes in antiepileptic medications is the best course of action to avoid decompensations of his seizures. I talked to patient's parents I communicated that we have found no evidence of irreversible brain damage. With that being said, his recovery may be very prolonged and even incomplete. This may impacthis care needs, and thus, placement. They understood. We will continue to follow. Remainder per Dr. Stafford . * Jose De Jesus Dunn, Pharm.D., R.Ph. - 03/07/2024 7:10 AM CDT Pharmacist Progress Note Reason for admission: 44 year old male admitted to [facility] Medical ICU on 02/28/2024 for acute hypoxemicrespiratory secondary to community acquired pneumonia. 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 Family will provide guidance on when to use rescue benzodiazepines vs extra 200 mg of Keppra if needed. Neuro guiding antiepileptic drug levels and if adjustments are needed Cardiovascular: SR, NE 0.02, weaning as able Respiratory: ASV 30%, intubated due to difficulty maintaining secretions Neph: Cr 0.5, stable (may reflect bactrim without change in actual function, checking Cys C), baseline 0.3-0.4, cystatin C eGFR demonstrating normal renal function, appropriate UOP ID: Steno pneumonia Ceftriaxone 02/27- and 03/03. Does have documented AGEP/SJS to Augmentin, however has tolerated ceftriaxone Cefepime 03/02 Doxycycline 02/27- Bactrim 03/03- GI: LBM 03/05 Heme: New acute LLE DVT, apixaban initiated Prophylaxis: Apixaban, PPI ASSESSMENT / PLAN Persistent somnolence: History of complex seizure disorder with regular breakthrough seizures. SpotEEG doesn't show nonconvulsive status. Patient has not returned to baseline mentation since admission. True trough AED levels elevated for clobazam, levetiracetam, and felbamate although he has had si milarly high levels in past. Neurology consulted to assist in interpretation and potential adjustment given complex seizure history. Acute hypoxic respiratory failure: : BAL cultures growing Stenotrophomonas maltophilia and antibiotics were transitioned to Bactrim: targeting 12 mg/kg for total daily dose. Acute LLE DVT: Continuing Apixaban. Had some oozing around G-tube site as well as some mucosal oozing in mouth/nose thus deferred the initial 10 mg BID load. Given levetiracetam interaction, check apixaban anti-Xa peak to compare to expected levels. Jose De Jesus Dunn, Pharm.D., R.Ph. [phone] * Rufus Ba M.B.B.S. - 03/07/2024 6:53 AM CDT SUBJECTIVE I have personally seen and examined the patient, reviewed all relevant labs, radiology studies, andchart notes and have discussed the assessment and plan in person with the inter professional critical care team. I have reviewed the team note associated with today's encounter and agree with this documentation with the following additions and exceptions: Brief Summary: Mr. 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 Interval Events: EEG and MRI unrevealing Low dose Norepinephrine Minimal vent setting- ASV , 100% spontaneous, PEEP 5 Secretions moderate and thick Night 03/06: - remains intubated - no acute events Day 03/06: - eyes opening intermittently. - Neurology following. EEG changes consistent with underlying chronic Ayaan- Gastaut and medications. MRI unrevealing. Recommended baclofen decrease from 20 QID to 10 mg QID. - Bactrim continues for Stenotrophomonas in the tracheal secretions - Norepinephrine intermittently off. OBJECTIVE VITAL SIGNS I have reviewed the current vital sign data as applicable. PHYSICAL EXAM Intubated, no response to pain DIAGNOSTICS I have reviewed relevant laboratory, imaging, and other diagnostics as applicable. 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 Mental status remains a barrier to extubation. EEG and MRI unrevealing. Baclofen decreased. Plan: -Lung protective mechanical ventilation -SBT -Bactrim -Anticoagulation with Apixaban -Continue Clobazam, Felbamate, Lamotrigine, Levetiracetam, Baclofen -Tube feeding -ICU monitoring and cares Critical care time: 35 minutes. This is time spent at this critically ill patient's bedside actively involved in patient care as well as the coordination of care and discussions with the patient's family. This does not include any procedural time which has been billed separately. * Fela Mann RDN, LD - 03/06/2024 2:21 PM CDT Nutrition Care Plan Follow Up Clinical [...] for ileus after imaging of abdomen performed. Feeds were restarted on 03/03 after patient began to have bowel movements. Current nutrition orders: Formula: Peptamen AF Goal: 55 mL/hr x 24 hours (at goal) TF Supplements: none Water flushes: None ordered Calorie containing medications/therapies: none Pressor use: none, norepinephrine stopped on 03/06 at around 1400 Tube feeds at goal are providing a total of: 1584 kcal and 100 g protein. Feeds also contain 1056 mg phosphorus (noted to have mild hyperphosphatemia) Total free water from feeds and flushes:1070 mL Tube information: GI Tubes (Adults) Gastrostomy-jejunostomy;Percutaneous endoscopic 22 Fr Left;Lower;Quadrant (abdomen) (Active) Placement Date/Time: 12/29/23 1309 Placed by: LACEY GI Tube Type: Gastrostomy-jejunostomy;Percutaneous endoscopic Low Profile? : Yes Does it have a balloon? : Yes Balloon Volume: 10 mL GI Tube Size: 22Fr Stoma Length (cm): 3.5 Tube Location: L... Medications: Scheduled Meds:acetic acid, 1 Application, topical, TID apixaban, 5 mg, gastric tube, BID baclofen, 10 mg, gastric tube, 4x Daily cannabidioL, 400 mg, gastric tube, Daily And cannabidioL, 600 mg, gastric tube, Daily at bedtime chlorhexidine, 15 mL, swish & spit, BID [...] sodium chloride, 10-30 mL, intravenous, Q7 Days sulfamethoxazole-trimethoprim, 3.5 mg/kg of trimethoprim, gastric tube, Q8H Continuous Infusions:norepinephrine 16 mcg/mL in D5W 250 mL infusion, 0-0.3 mcg/kg/min (Dosing Weight), Last Rate: Stopped (03/06/24 1352) Pertinent Labs: Latest Reference Range & Units 03/04/24 03:27 03/05/24 05:19 03/06/24 06:01 Sodium, S 135 - 145 mmol/L 135 135 139 Potassium, S 3.6 - 5.2 mmol/L 4.5 4.8 4.2 Chloride, S 98 - 107 mmol/L 101 98 106 Bicarbonate, S 22 - 29 mmol/L 24 26 25 Anion Gap 7 - 15 10 11 8 BUN (Blood Urea Nitrogen), S 8 - 24 mg/dL 10 17 20 Creatinine 0.74 - 1.35 mg/dL 0.51 (L) 0.62 (L) 0.50 (L) Estimated GFR (eGFR) >=60 mL/min/BSA >90 >90 >90 Calcium, Total, S 8.6 - 10.0 mg/dL 8.6 8.5 (L) 6.8 (L) Glucose, S 70 - 140 mg/dL 100 101 79 Magnesium 1.7 - 2.3 mg/dL 1.7 Phosphorus (Inorganic), S 2.5 - 4.5 mg/dL 4.2 4.7 (H) (L): Data is abnormally low (H): Data is abnormally high Latest Reference Range & Units 03/05/24 19:35 03/06/24 08:13 03/06/24 12:10 Glucose, POCT, B 70 - 140 mg/dL 97 107 92 GI Function: Last BM Date: 03/05/24, [place] Stool Chart: Type 7: Watery, no solid pieces, Passing Flatus: Yes. Estimated Needs: Calories: 1320-3447 (MSJ Kfdwh=7084 kcal) calories/day Method to Estimate Energy Needs: kcal/kg (20-25 kcal/kg) Weight Used for Equation Calculations: 66.9 kg Protein: 80 - 100 grams/day Method to Estimate Protein Needs (g/kg): 1.2 - 1.5 gm/kg Weight Used to Calculate Protein Needs (Kg): 66.9 kg PLAN No changes at this time; continue current nutrition orders Clinical Nutrition will continue to follow. For questions about patient's nutritional care please contact pager [phone] on weekdays 07:30-16:00 or [phone] on weekends/holidays ([facility]). * Jose De Jesus Dunn, Pharm.D., R.Ph. - 03/06/2024 10:01 AM CDT Pharmacist Progress Note Reason for admission: 44 year old male admitted to [facility] Medical ICU on 02/28/2024 for acute hypoxemicrespiratory secondary to community acquired pneumonia. 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 Family will provide guidance on when to use rescue benzodiazepines vs extra 200 mg of Keppra if needed. Neuro guiding antiepileptic drug levels and if adjustments are needed Cardiovascular: SR, NE 0.03, weaning as able Respiratory: ASV 30%, intubated due to difficulty maintaining secretions Neph: Scr slightly above BL of 0.3-0.4, cystatin C eGFR demonstrating normal renal function, appropriate UOP ID: Steno pneumonia Ceftriaxone 02/27- and 03/03. Does have documented AGEP/SJS to Augmentin, however has tolerated ceftriaxone Cefepime 03/02 Doxycycline 02/27- Bactrim 03/03- GI: LBM 03/05 Heme: New acute LLE DVT, apixaban initiated Prophylaxis: Apixaban, PPI ASSESSMENT / PLAN Persistent somnolence: History of complex seizure disorder with regular breakthrough seizures. SpotEEG doesn't show nonconvulsive status. Patient has not returned to baseline mentation since admission. True trough AED levels pending. Neurology consulted to assist in interpretation and potential adj ustment. Acute hypoxic respiratory failure: : BAL cultures growing Stenotrophomonas maltophilia and antibiotics were transitioned to Bactrim: targeting 12 mg/kg for total daily dose. Acute LLE DVT: Continuing Apixaban. Had some oozing around G-tube site as well as some mucosal oozing in mouth/nose thus deferred the initial 10 mg BID load. Jose De Jesus Dunn, Pharm.D., R.Ph. [phone] * Danelle Contreras, R.N. - 03/06/2024 9:50 AM CDT [facility] Wound RN reconsulted to assess Say Hilario skin alterations. Wound assessment, pain, and Javier score noted in the flowsheet. No images were taken during this patient assessment. History: Per provider note, the patient was admitted to the hospital for acute hypoxemic respiratory failure secondary to community-acquired versus aspiration pneumonia. The patient's significant history includes cerebrovascular disease, Macomb Gastaut Syndrome, chronic dysphagia with PEJ placement, and intellectual disability. Assessment: The patient was assessed in conjunction with the [facility] nurse and bedside nurse at bedside. Moisture associated skin damage noted around GJ tube, under abdominal fold, bilateral groin and buttocks. 03/06/24 0900 Wound 02/28/24 Friction Injury Buttocks with Incontinence Associated Dermatitis to Bilateral Groin Date First Assessed/Time First Assessed: 02/28/24 1600 Present on Original Admission: Yes Wound Approximate Age at First Assessment: 1 month Primary Wound Type: Friction Injury Location: Buttocks Wound Description (Comments): with Incontinence A... *Shape Irregular *Signs of Infection None *Wound Bed Red Tissue Exposed None Odor None *Exudate Amount None Ana-wound Assessment Flakes;Erythema Treatments Cleansed Periwound Treatment Cleansed (Comment) Wound Cleansed with Acetic acid [place] Protocol (Pre-procedure pause) Y *Primary Dressing Acetic acid (with hydrocortisone and nystatin creams applied prior to acetic acid dressing.) *Primary Dressing Frequency of Change 3x/day & PRN Primary Dressing Changed Changed Primary Dressing Status Intact *Secondary Dressing Foam;Textile (Sacral Mepilex border for buttock, Interdry AG for the groin folds) *Secondary Dressing Frequency of Change 3x/day & PRN Changed by Unit based nurse;Wound property field inspector Ongoing management Nursing;Wound/[facility] Wound 03/12/23 Other Moisture Associated Skin Damage Abdomen Left;Lower GJ-Tube Date First Assessed/Time First Assessed: 03/12/23 0900 Present on Original Admission: Yes Wound Approximate Age at First Assessment: Unknown Primary Wound Type: Other Moisture Associated Skin Damage Location: Abdomen Wound Location Orientation: ... *Signs of Infection None *Wound Bed Red Tissue Exposed None Odor None *Exudate Amount None Ana-wound Assessment Fragile;Red Treatments Cleansed Periwound Treatment Cleansed (Comment) Wound Cleansed with Acetic acid [place] Protocol (Pre-procedure pause) Y *Primary Dressing Acetic acid (Nystatin and Hydrocortisone cream applied prior to application of the Acetic acid dressing) *Primary Dressing Frequency of Change 3x/day & PRN Primary Dressing Changed Changed Primary Dressing Status Clean;Intact *Secondary Dressing Foam;Textile (Mepilex Up around GJ tube and Interdry AG to fold) *Secondary Dressing Frequency of Change 3x/day & PRN Changed by Unit based nurse Ongoing management Nursing;Wound/patternmaker bench Head to toe skin assessment completed and no other concerns DRESSING RECOMMENDATIONS: #1 Friction Injury Buttocks with Incontinence Associated Dermatitis to Bilateral Groin #2 Moisture Associated Skin Damage Abdomen Left;Lower [...] in place for two hours. -Repeat two to three times daily. In Between Treatments: -Apply a Mepilex Up under PEJ. -Apply Sacral Mepilex Border to cover open areas on buttocks. -Place InterDry AG in between groin and abdominal folds. Recommended interventions for pressure redistribution and shear [...] prevention. Change every 3 days and PRN. Utilize Isolibrium mattress with InTouch Frame (standard for ICU). Recommended interventions for moisture control: InterDry?? Ag placed between folds. Allow at least 2 inches of fabric exposed to air on at least one side of the skin fold for moisture evaporation. Can be used up to 5 days unless soiled with stool or urine. Do not rinse with water. Utilize the breathable incontinence underpads while in bed. Adult briefs should only be worn while ambulating or in the chair. Cleanse with foaming cleanser or wipes after each incontinence episode and for routine hygiene cares. Utilize Isolibrium mattress with InTouch Frame (standard for ICU). Consult recommendations: NA Education: Discussed the plan of care with the patient and nursing, bedside nurse in agreement withplan and no further concerns at this time. The [facility] RN will continue to see the patient, contact or reconsult for worsening wounds or new wounds. Electronically signed by: Danelle Contreras R.N. ([facility] student) 03/06/24 10:05 AM CDT * Ralph Stafford M.D. - 03/06/2024 8:10 AM CDT NEUROLOGY ICU CONSULTS PROGRESS NOTE HISTORY OF PRESENT ILLNESS: Mr. Say Hilario is a 44 y.o. 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 Interval Events: - Remains afebrile, intubated (mechanical ventilation day 5) on ASV 30% FiO2, peep of 8, on and offnorepinephrine currently at 0.04 with labs today demonstrating continued downtrending white count now down to 4.7 (completing ceftriaxone on 03/03) with platelets of 148 and hemoglobin 8.1 with creatinine of 0.5 and no new microbiologic data - completed EEG this morning which demonstrates diffuse slowing and low amplitude events (with nearburst suppression) in addition to epileptiform discharges in the mid occipital head as well as betaactivity but no evidence of nonconvulsive status. Home Regimen: Baclofen 20 mg q.i.d. Cannabidiol 400 mg a.m., and 600 mg p.m. Clobazam 15 mg in the a.m. and 10 mg in the evenings Felbamate 1500 mg before breakfast and 1200 mg at 2:00 p.m. and 2100 Lamictal 350 mg in the a.m., 350 mg at 2:00 p.m., 300 mg at bedtime Levetiracetam 1500 mg in the a.m. and 1600 mg q.h.s. with PRN 200 mg t.i.d. Rufinamide 200 mg AM and 400 mg q.h.s. Keppra level on 03/02/2024; 134 (compared to 71 on 02/02/2024) Lamotrigine level 03/02/2024: 19.4 (compared to 13.9 on 02/02/2024) Felbamate level: 246.2 (Compared to 145 on 02/01) Clobazam and Metabolite: 268 and 5810 (compared to 313 and >39089 respectively) Rufinamide: 11.6 I have reviewed the current medication list. OBJECTIVE Temperature: [36.6 ??C-37.1 ??C] 36.9 ??C Heart Rate: [88-105] 98 Resp Rate: [10-23] 12 Arterial Line BP: (84-126)/(42-63) 120/58 FiO2 (%): [30 %] 30 % SpO2: [89 %-100 %] 98 % Pulse Rate: [88-105] 98 Physical Exam: General: Intubated off sedation , FOUR score [id number] HEENT: ET tube in place Cardiac: Regular rate and rhythm Respiratory: Intubated and ventilated, slightly improved lower lung sounds with mild rhonchi and transmitted upper airway noises Abdomen: Soft, non distended, bowel sounds present Skin: No significant rash or lesions . Neuro: Pupils midposition, preserved oculocephalic, no skew or gaze deviation, no evidence of facial twitches or extremity twitching, corneal and pupillary reflex intact, increased tone throughout, no motor reflex to deep painful stimuli ASSESSMENT / PLAN Mr. Say Hilario is a 44 y.o. 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 #1 Persistent Coma #2 Hypoxemic and hypercapnic respiratory failure, requiring mechanical ventilation #3 Ayaan-Gastaut Syndrome with complicated by refractory epilepsy on numerous anti seizure medications #4 Baseline cognitive impairment #5 Cavernous hemangioma, right cerebellar hemisphere #6 Supratherapeutic anti seizure medication levels, with spot check #7 Spasticity, on chronic baclofen Mr. Hilario is a challenging case of a patient presenting with acute respiratory failure requiring intubation mechanical ventilation now demonstrating persistent in the context of a known history of refractory epilepsy, multifactorial cognitive impairment, and polypharmacy to manage his multi morbidity. Undoubtedly, Mr. 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 His antiepileptic levels have returned elevated although a notably were not trough levels but certainly could be contributing to his persistent encephalopathy. Furthermore, interpreting these trough levels when obtain appropriately is exceedingly difficult given he is known to utilize high doses of numerous anti seizure medications to manage his refractory epilepsy and therefore he likely requires higher than anticipated trough levels. His EEG today demonstrates fairly diffuse slowing with epileptiform discharges which are expected in the context of his refractory epilepsy and not indicative of nonconvulsive status which is quite reassuring. Furthermore, he has not demonstrated any generalized seizure activity that would suggest that his encephalopathy exacerbated by an acute on chronic postictal state (more pronounced and his known epileptic encephalopathy). As it relates to other potential confounders/contributors to his persistent encephalopathy/coma it seems unlikely that there is any decreased renal or hepatic metabolism of his anti seizure medications or polypharmacy reviewing this with pharmacy. He is taking chronic baclofen which is dosed appropriately as compared to is taking at home, and we could consider dose reducing this for the time being to decrease any potential contribution polypharmacy as we continue to monitor his clinical status.His community-acquired/aspiration pneumonia seems likely to have contributed to hiss altered mentalstatus. Now has been transitioned to Bactrim from ceftriaxone/cefepime in this seems unlikely to beexacerbating his encephalopathy. As this respiratory process continues to improve, we will continueto monitor his neurologic status which likely will lag behind his pulmonary recovery given his multifactorial chronic cognitive impairment. Overall, his prognosis and the etiology of his persistent comatose state his somewhat unclear. We remain optimistic that time alone will help improve his state of awareness although with innumerable prior neurologic insults, his functional status moving forward remains unclear. Recommendations: - Could consider dose reducing baclofen to 10 mg 4 times daily - No indication for additionally EEG monitoring at this time - We will follow up on MRI today which thus far on review of the DWI sequences appears remarkable with his known cavernous hemangioma in the right cerebellar hemisphere - Continue current antiseizure medications as dose prior to admission - Agree with checking trough levels of lung antiepileptics including clobazam and metabolite, lamotrigine, levetiracetam, rufinamide, felbamate Patient seen and discussed with our aviation consultant Dr. Delatorre. We appreciate the consult. Please page [phone] with any questions regarding our recommendations. Glen Stafford M.D. 03/06/24 Associated attestation - Jose Delatorre M.D. - 03/06/2024 12:07 PM CDT I have reviewed the history and physical examination findings of Dr. Ralph Stafford , and have personally seen the patient. I agree with their documentation other than where indicated in my note. Status remained very poor over the weekend without any consistent improvement. Antiepileptic drugs levels were high, however there were no truly trough levels. EEG this morning showed no seizure activity, but there is a severe encephalopathic pattern. MRI showed no acute lesions that could explain the degree of his encephalopathy. Neurologic examination remains unchanged. ASSESSMENT / PLAN #1 Persistent Coma #2 Hypoxemic and hypercapnic respiratory failure, requiring mechanical ventilation #3 Ayaan-Gastaut Syndrome with complicated by refractory epilepsy on numerous anti seizure medications #4 Baseline cognitive impairment #5 Cavernous hemangioma, right cerebellar hemisphere #6 Supratherapeutic anti seizure medication levels, with spot check #7 Spasticity, on chronic baclofen Recommended Check trough levels of AEDs We will talk to pharmacy to check for potential interactions between the new medications the patient received during this admission and his AEDs Due to his severe seizure disorder I do not think making sudden changes on his AEDs is safe. We will start decreasing baclofen and continue to assess him clinically. Remainder per Dr. Stafford. * Amrita Liz APRN, C.N.P., D.N.P. - 03/06/2024 7:49 AM CDT SUBJECTIVE Brief Summary: Mr. Hilario is a 44-year-old male patient with medical comorbidities consisting of Macomb-Gastaut syndrome who was admitted to the medical intensive care unit for hypoxic and hypercapnic respiratory failure in the setting of community- acquired pneumonia. Continues with comatose state requiring continued intubation for airway protection. Secretions have improved. Interval Events: Night 03/05: - extra 40 mg IV lasix at 0200 - EEG ordered Day 03/05: - SBT, remain intubated on ASV - Bactrim continues for Stenotrophomonas in the tracheal secretions - Wean Norepinephrine as able - Neurology following - Lasix 40 mg IV - MRI of the brain ordered - Antiepileptic drug troughs ordered for 03/06 OBJECTIVE VITAL SIGNS I have reviewed the current vital sign data as applicable PHYSICAL EXAM General: No acute distress noted. Pale. Oral intubation. EEG in place EENT: Eyes with upward gaze, Pupils 8 mm, reactive. Resists eye opening. Moist mucous membranes. Heart: RRR Lungs: Rhonchi Abdomen: Soft, round, nontender, and nondistended. Fariha-Small tube in place. Extremities: 2+ edema to extremities. Skin: Warm and dry. Mental: per mother, flickered / opened eyes to voice this am. For examiner, resist eye opening. BP (!) 93/49 (BP Location: Right arm;Lower, Patient Position: Semi-recumbent) Pulse 97 Temp 36.7 ??C (Axillary) Resp 14 Ht 156 cm Wt 69.9 kg SpO2 94% BMI 28.72 kg/m?? DIAGNOSTICS I have reviewed relevant laboratory, imaging, and other diagnostics as applicable. ASSESSMENT / PLAN #1 Acute hypoxemic respiratory failure secondary to aspiration pneumonia; intubated 03/01/2024 #2 Pneumonia secondary to stenotrophomonas maltophilia #3 Encephalopathy on the background of severe cognitive delay #4 Acute left femoral deep venous thrombosis; on apixaban #5 Dysphagia, on long-term tube feeds via a gastrojejunal tube (placed 2019, previously G-tube; last replaced 12/28) #6 Bleeding around PEJ tube after initiation of therapeutic anticoagulation; resolved #7 Ayaan-Gastaut syndrome with recurrent seizures and severe cognitive delay #8 Probable sleep disordered breathing; further evaluation deferred given complexities with any PAPimplementation #9 History of ALL, status post treatment with chemoradiation at 20 months #10 History of prior urinary infections secondary to nephrolithiasis, 2022 #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 Neurology following. EEG in place. MRI of the brain today. Antiseizure medication levels pending. Day 4 of 7 of Bactrim for stenotrophomonas in pulmonary secretions. Plan By Systems: NEURO # Macomb-Gastaut Syndrome # Developmental Delay # History of Lateral Medullary Stroke # Sedation # Query Subclinical Seizure Activity - Seizure precautions - Sedation: Off since 03/02. - Daily SAT/SBT - Continue home medications: Baclofen 20 mg QID, Cannabidiol 400 mg AM and 600 mg PM, Clobazam 15 mg AM and 10 mg PM, Felbamate 1500 mg AM and 1200 mg BID, Lamotrigine 350 mg BID and 350 mg QHS, Levetiracetam 1500 mg AM and 1600 mg PM, and Rufinamide 200 mg AM and 400 mg PM. Levels pending - Pain regimen: Acetaminophen 1000 m g Q6H PRN - Head CT 03/02: Negative - Neurology ICU following. EEG in place. MRI brain ordered. CARDIAC/CV # Hypotension - Maintain MAP > 60-65 - Arterial line - intermittent Norepinephrine to maintain MAP goal - Fluid status: net negative PULMONARY # Chronic Nocturnal Supplemental Oxygen (1 L nasal cannula) # Community Acquired Pneumonia # Acute on Chronic Respiratory Failure with Hypoxemia # Mechanical Intubation # Status Post Bronchoscopy 03/01/24 - Maintain SpO2 > 92% - Continue mechanical ventilation: ASV P 5, 30%. - Intubated 03/01 (ETT 7.5) - Chronic oxygen home use: 1 L NC nocturnally. - Daily SBT - Pulmonary hygiene: DuoNeb QID PRN, Chlorhexidine mouthwash BID, 3% saline QID PRN, and frequent oral care. RENAL # No acute issues - Goal net fluid balance: Net negative 1 L. - Diuresis: ----- 03/04: Lasix 20 mg IV x 2 and 40 mg IV x 1. ----- 03/05: Lasix 40 mg IV - Gama catheter - Strict I&O and daily weight - Monitor renal function and electrolytes daily - Avoid nephrotoxins and renally adjust medications as able - Ditropan 5 mg TID GI # Calista Tube Status # Oozing/Bleeding from Calista Tube Site - Diet: NPO and TF: Peptamen AF with a goal of 55 cc/hr. - Antiemetics: None - ileus improved. Bowel regimen: Bisacodyl suppository 10 mg daily PRN, MiraLAX 17 g daily, and Senokot-S 1 tablet BID. - GI PPX: Pantoprazole 40 mg IV daily ID # Community Acquired Pneumonia # Leukocytosis, resolved - Blood cultures 02/27 OSH: 1/2 bottles + [facility] - Blood culture 03/01: NGTD - Sputum cultures 02/28: 2+ Yeast and Stenotrophomonas 2+ - Antibiotics: - Cefepime (03/02-03/03) - Vancomycin (03/01) - Doxycycline (02/27 - 03/02) - Ceftriaxone (02/27 - 03/01 and 03/03) - Bactrim (03/03, day 4 of 7) Will try to follow up results of the 02/27 OSH blood cultures. HEME/ONC # Anemia # Left Lower Extremity DVT # Oozing/Bleeding from Calista Tube Site - No signs of active/acute bleeding - Monitor CBC daily - DVT PPX: Apixaban 5 mg BID (L LE DVT) - ENDOCRINE # Hypoglycemia secondary to lack of Tube Feeding - Monitor blood glucose 4 times daily - Notify provider for blood glucose > 140 or <70 - Hypoglycemia protocol ordered RHEUM/MUSK # No active issues OTHER PT/OT/ST: As indicated by therapy services Code Status: Full Code Disposition: - ICU Level Cares - Family: MotherShelby - baseline cognitive status is approximately [id number]. * Rufus Ba M.B.B.SMay - 03/06/2024 7:00 AM CDT SUBJECTIVE I have personally seen and examined the patient, reviewed all relevant labs, radiology studies, andchart notes and have discussed the assessment and plan in person with the inter professional critical care team. I have reviewed the team note associated with today's encounter and agree with this documentation with the following additions and exceptions: Brief Summary: Mr. 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 Interval Events: Low dose Norepinephrine Minimal vent setting- ASV , 100% spontaneous, PEEP 5 Secretions moderate and thick Night 03/05: - extra 40 mg IV lasix at 0200 - EEG ordered Day 03/05: - SBT, remain intubated on ASV - Bactrim continues for Stenotrophomonas in the tracheal secretions - Wean Norepinephrine as able - Neurology following - Lasix 40 mg IV - MRI of the brain ordered - Antiepileptic drug troughs ordered for 03/06 OBJECTIVE VITAL SIGNS I have reviewed the current vital sign data as applicable. Vitals: 03/06/24 0700 BP: Pulse: 99 Resp: 14 Temp: SpO2: 95% DIAGNOSTICS I have reviewed relevant laboratory, imaging, and other diagnostics as applicable. ASSESSMENT / PLAN #1 Acute hypoxemic respiratory failure secondary to aspiration pneumonia; intubated 03/01/2024 #2 Pneumonia secondary to stenotrophomonas maltophilia #3 Encephalopathy on the background of severe cognitive delay #4 Acute left femoral deep venous thrombosis; on apixaban #5 Dysphagia, on long-term tube feeds via a gastrojejunal tube (placed 2019, previously G-tube; last replaced 12/28) #6 Bleeding around PEJ tube after initiation of therapeutic anticoagulation; resolved #7 Macomb-Gastaut syndrome with recurrent seizures and severe cognitive delay #8 Probable sleep disordered breathing; further evaluation deferred given complexities with any PAPimplementation #9 History of ALL, status post treatment with chemoradiation at 20 months #10 History of prior urinary infections secondary to nephrolithiasis, 2022 #11 History of lateral medullary stroke, age 12 #12 Code status: Full code (surrogate decision maker are his parents) Minimal vent settings. Encephalopathy and secretions remain a barrier to extubation. Secretions improved this morning MR without acute intracranial abnormality Plan: -Lung protective mechanical ventilation -SBT -Bactrim -Anticoagulation with Apixaban -Continue Clobazam, Felbamate, Lamotrigine, Levetiracetam, Baclofen -Tube feeding -ICU monitoring and cares Please refer to the CCS note for system based plan Critical care time: 35 minutes. This is time spent at this critically ill patient's bedside actively involved in patient care as well as the coordination of care and discussions with the patient's family. This does not include any procedural time which has been billed separately. * Wes Person M.B.BMayS. - 03/05/2024 6:28 AM CDT SUBJECTIVE This is a supervisory note for the ICU team. I have personally seen and examined the patient, and reviewed all pertinent laboratory, vital signs and imaging data. I have reviewed the history, physical examination, impression, report, and plan with the team in detail and agree with the documentationoutlined in their notes from today. Yesterday, he continued to have relatively slow responses. Overnight, he did have some issues with secretions and had a poor cough reflex. OBJECTIVE BP (!) 93/49 (BP Location: Right arm;Lower, Patient Position: Semi-recumbent) Pulse 98 Temp 36.6 ??C (Axillary) Resp 13 Ht 156 cm Wt 69.5 kg SpO2 95% BMI 28.56 kg/m?? 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 male who is admitted to the ICU with acute respiratory failure secondary to aspiration pneumonia. His presentation was complicated by DVT. He also had worsening of his mental status. At baseline, he sits in bed or his wheelchair and plays with toys, and is able to eat small amounts for pleasure (although most of his nutrition is via PEJ fe eds). This is first intubation for respiratory failure. Currently he remains minimally responsive, and off his baseline. He continues to have substantial secretion burden. Goal is for him to be extubated and returned home to his baseline status. PLAN BY SYSTEMS: 1. BELT SANDER: He remains encephalopathic and quite far off his baseline. Our Neurology ICU team is following. Etiology of his encephalopathy is felt to be toxic/metabolic a background of severe cognitive dysfunction. Ultimately, we will have to make a decision about extubation understanding that he will not be at his baseline at that time. I am hoping we can set him up today and have him interact with family a bit more. 2. Cardiovascular: Low-dose norepinephrine as needed for blood pressure support. 3. Respiratory: Continue on spontaneous ventilation with the majority of breaths being self triggered. Decision-making regarding extubation also informed in part by relatively high secretion burden today. 4. Renal: Diuresis aiming for a 1 L negative fluid balance. He had close to an even fluid balance yesterday. 5. GI: Tube feeds and PPI. 6. Hematology: He is on apixaban for his DVT. 7. ID: Complete seven days of Bactrim for stenotrophomonas infection. He already completed several days of broad-spectrum antibiotics for pneumonia. 8. Lines/Devices: Reviewed and needed for ongoing care. 9. PT/Rehab: Passive range of motion. 10: Goals of care / disposition: He will require ongoing ICU care. Remainder of issues per the systems-based plan of care as outlined in the ICU notes from today. Critical care time 30 minutes. This is time spent at this critically ill patient's bedside activelyinvolved in patient care as well as the coordination of care and discussions as appropriate. This does not include any procedural time which has been billed separately. * Basil Miranda, AKASH, C.N.P. - 03/05/2024 4:45 AM CDT SUBJECTIVE Brief Summary: Mr. Hilario is a 44-year-old male patient with medical comorbidities consisting of Ayaan-Gastaut syndrome who was admitted to the medical intensive care unit for hypoxic and hypercapnic respiratory failure in the setting of community- acquired pneumonia. Interval Events: Night 03/04: - even at midnight - additional 40 mg IV lasix ordered , - 250 cc Day 03/04: - SBT, remain intubated on ASV - Bactrim for Stenotrophomonas in the tracheal secretions - Wean Norepinephrine - Neurology following - Lasix 20 mg IV OBJECTIVE VITAL SIGNS I have reviewed the [...] And Thrombosis Of Left Femoral Vein (HCC) Plan By Systems: NEURO # Ayaan-Gastaut Syndrome [...] CARDIAC/CV # Hypotension - Maintain MAP > 60-65 - Arterial line - Continue Norepinephrine to [...] hygiene: DuoNeb QID PRN, Chlorhexidine mouthwash BID, 3% saline QID PRN, and frequent oral care. - Bronch with BAL sent 03/01/24 - CXR 03/02: Right PICC tip near the superior cavoatrial junction. RENAL # No acute issues - Goal net fluid balance: Net negative 1 L. - Diuresis: ----- 03/04: Lasix 20 mg IV x 2 and 40 mg IV x 1. ----- 03/05: Lasix 40 mg IV - Gama catheter - Strict I&O and [...] - 03/01 and 03/03) - Bactrim (03/03 - 03/10) HEME/ONC # Anemia # Left Lower Extremity [...] Disposition: - ICU Level Cares - Family: MotherShelby * Chelsea Dumont M.D. - 03/04/2024 1:55 PM CDT NEUROCRITICAL CARE CONSULTS SERVICE PROGRESS NOTE SUBJECTIVE Interval Events: No events overnight No changes in exam OBJECTIVE PHYSICAL EXAM Temperature: [36.5 ??C-37.4 ??C] 37.4 ??C Heart Rate: [77-103] 94 Resp Rate: [10-19] 14 Arterial Line BP: (88-124)/(46-63) 95/49 FiO2 (%): [25 %-30 %] 30 % SpO2: [90 %-100 %] 95 % Pulse Rate: [77-124] 94 General: critically ill. Neuro: Not opening eyes and not tracking, pupils 5mm --> 4mm bilaterally, corneals present, not grimacing to supraorbital notch pressure, oculocephalic present, weak gag and no cough. Hypotonic and hyporeflexia in all extremities. No movement to noxious stimulation. DIAGNOSTICS I have reviewed lab and imaging data. AST levels drawn on 03/02 at 11:20 a.m: Clobazam 269 (nl) Felbamate 246.2 (H) Lamotrigine 19.4 (H) Levetiracetam 134.2 (H) ASSESSMENT 44-year-old patient with refractory epilepsy on 5 different antiseizure medications and developmental delay at baseline; who is critically ill with hypoxic respiratory failure and pneumonia. He has been off sedation since 03/02 but remains comatose due to severe encephalopathy in the context of polypharmacy an acute illness on a poor brain subtract. Some of the antiseizure medication levels are back, but I would be cautious while interpretation the results, given that they are not true trough levels. I would not make changes on his doses at this moment, he has been stable in this regimen and given his history of Ayaan- Gastaut, he has high risk for status epilepticus if we were to back down on his medication. We will continue to monitor clinically. Impression Coma Severe encephalopathy Acute hypoxemic respiratory failure secondary to aspiration pneumonia Macomb-Gastaut syndrome Medically refractory epilepsy Cognitive delay RECOMMENDATIONS: - continue to hold sedation - continue home antiseizure medications. Patient discussed with our aviation consultant Dr. Cohen. We appreciate the consult. Please page [phone] with any questions regarding our recommendations. Electronically signed by: Chelsea Spivey M.D. 03/04/24 1:57 PM CDT * Rosanna Joiner, Tami.D., R.Ph. - 03/04/2024 8:28 AM CDT Pharmacist Progress Note Reason for admission: 44 year old male admitted to [facility] Medical ICU on 02/28/2024 for acute hypoxemicrespiratory secondary to community acquired pneumonia. 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 Family will provide guidance on when to use rescue benzodiazepines vs extra 200mg of Keppra if needed. Neuro guiding antiepileptic drug levels and if adjustments are needed Cardiovascular: blood pressure supported with NE, sinus Respiratory: intubated due to difficulty maintaining secretions, transitioned to SPONT Neph: Scr slightly above BL of 0.3-0.4, cystatin C eGFR demonstrating normal renal function, appropriate UOP ID: no leukocytosis, afebrile Does have documented AGEP/SJS to Augmentin, however has tolerated ceftriaxone INTEGRITY ASSESSOR/doxycycline for CAP discontinued and transitioned to Bactrim with Steno speciation from 02/28 OSH blood culture representing a contaminant 1/2 (+) Staph epidermidis Endo/GI: goal BG <180 and not hypoglycemic, Tube feeds restarted, + BR Heme: New acute LLE DVT, apixaban initiated Prophylaxis: Apixaban, PPI ASSESSMENT / PLAN Persistent somnolence: History of complex seizure disorder with regular breakthrough seizures. Has not returned to baseline mentation since admission. AED levels pending. Neurology consulted to assist in interpretation and potential adjustment. Acute hypoxic respiratory failure secondary to pneumonia with likely some component of aspiration as well: BAL cultures growing Stenotrophomonas maltophilia and antibiotics were transitioned to Bactrim: targeting 12mg/kg for total daily dose. Acute LLE DVT: Continuing Apixaban. Had some oozing around G-tube site as well as some mucosal oozing in mouth/nose thus deferred the initial 10 mg BID load. Joanne Joienr, Pharm.D., R.Ph. [phone] * Wes Person M.B.B.S. - 03/04/2024 6:23 AM CDT SUBJECTIVE This is a supervisory note for the ICU team. I have personally seen and examined the patient, and reviewed all pertinent laboratory, vital signs and imaging data. I have reviewed the history, physical examination, impression, report, and plan with the team in detail and agree with the documentationoutlined in their notes from today. He made some progress with regards his mental status yesterday. He was able to transition to spontaneous ventilation, and was opening his eyes and tracking at various points through the day. Remainedon ASV ventilation overnight. OBJECTIVE BP (!) 93/49 (BP Location: Right arm;Lower, Patient Position: Semi-recumbent) Pulse 99 Temp 37 ??C (Axillary) Resp 14 Ht 156 cm Wt 69.5 kg SpO2 96% BMI 28.56 kg/m?? 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 male [...] and frequently withabnormal reflexes including poor cough. Yesterday, he did have some suggestion of improvement in his mental status indicated hopefully this is transient encephalopathy in the setting of acute illnessand complex underlying neurologic disease. He also grew stenotrophomonas from BAL which we have started treatment for. PLAN BY SYSTEMS: 1. BELT SANDER: We have resumed all his home medications, and antiepileptic levels have been sent. Head CT showed no acute changes. Our Neurology ICU team are following. 2. Cardiovascular: Continue norepinephrine as needed for blood pressure support, targeting mean arterial blood pressure of 60-65 mmHg. We have central access via PICC line. 3. Respiratory: Continue on spontaneous ventilation, currently on ASV mode with majority of breath self triggered. I suspect we are a day or so away from a trial of extubation. 4. Renal: Diuresis aiming for a 1L negative fluid balance. 5. GI: Continue enteral feeds and PPI. 6. Hematology: Apixaban for deep venous thrombosis. 7. ID: Bactrim for a total of seven days for treatment of stenotrophomonas maltophilia pneumonia. He has already received several days of ceftriaxone/cefepime and doxycycline. 8. Lines/Devices: Reviewed and needed for ongoing care. 9. PT/Rehab: Passive range of motion. 10: Goals of care / disposition: He requires ongoing ICU care, and we will update the family daily. Remainder of issues per the [...] has been billed separately. * Basil Miranda, AKASH, C.N.P. - 03/04/2024 4:36 AM CDT SUBJECTIVE Brief Summary: Mr. Hilario is a 44-year-old male patient with medical comorbidities consisting of Macomb-Gastaut syndrome who was admitted to the medical intensive care unit for hypoxic and hypercapnic respiratory failure in the setting of community- acquired pneumonia. Interval Events: Night 03/03: - no events overnight Day 03/03: - SBT, remain intubated on ASV - Bactrim started for Stenotrophomonas in the tracheal secretions - Wean Norepinephrine - No further oozing from calista tube. - Neurology consulted. - AED levels pending - Ileus resolved - TF initiated OBJECTIVE VITAL SIGNS I have reviewed the [...] And Thrombosis Of Left Femoral Vein (HCC) Plan By Systems: NEURO # Ayaan-Gastaut Syndrome [...] CARDIAC/CV # Hypotension - Maintain MAP > 60-65 - Arterial line - Continue Norepinephrine to [...] acute issues - Goal net fluid balance: Net negative 1 L. - Diuresis: ----- 03/04: Lasix 20 mg IV - Gama catheter - Strict I&O and [...] Level Cares - Family: Shelby Sapp * Gunjan Pickering, PharmMayD., R.Ph., [facility] - 03/03/2024 1:46 PM CDT Pharmacist Progress Note Reason for admission: 44 year old male admitted to [facility] Medical ICU on 02/28/2024 for acute hypoxemicrespiratory secondary to community acquired pneumonia. 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 Hemoglobin stable. Gunjan Pickering, Pharm.D., R.Ph., BCCCP [phone] * Eloy Epps M.T.S. - 03/03/2024 10:00 AM CDT [facility] Spiritual Care Progress Note Patient: Say Hilario Age:44 y.o. Location: [id number] Reason(s) for encounter: Spiritual Care contact to introduce spiritual care service and assess for potential spiritual care needs. Spiritual Care contact for ongoing spiritual care. Spiritual Care contact per Family's request. Spiritual Care contact for methodist rites/sacramental encounter. Summary: I was able to [...] for continued prayer for Say. Spiritual Assessment Jewish Identification / Spiritual Practices: Say is a Protestant Coping and support: Has family support Spiritual [...] current medical condition and life stage. Facilitated methodist/spiritual practices (prayer, blessing, sacred texts, methodist item) with theaim to reinforce patient's spiritual [...] requested. Chaplains can be contacted by paging [phone] ([place]) or [phone] (Jewish). * Wes Person M.B.B.SMay - 03/03/2024 7:01 AM CDT SUBJECTIVE This [...] including poor cough. PLAN BY SYSTEMS: 1. BELT SANDER: We have sent off antiepileptic levels although [...] has been billed separately. * Basil Miranda, DIFFUSER OPERATOR, C.N.P. - 03/03/2024 4:37 AM CDT SUBJECTIVE Brief Summary: Mr. Hilario is a 44-year-old male patient with medical comorbidities consisting of Ayaan-Gastaut syndrome who was admitted to the medical intensive care unit for hypoxic and hypercapnic respiratory failure in the setting of community- acquired pneumonia. Interval Events: Night 03/02: - Contacted Neuro re: query subclinical seizures > Recommended Neuro Cx in AM with possible spotEEG and/or MRI - Off sedation, still altered - remains on 03/02: - Sedation vacation - Continue Cefepime [...] And Thrombosis Of Left Femoral Vein (HCC) Plan By Systems: NEURO # Ayaan-Gastaut Syndrome [...] Disposition: - ICU Level Cares - Family: MotherShelby * David Arreaga R.N., C.W.C.N. - 03/02/2024 10:59 AM CDT [facility] Wound RN consulted to assess Say Hilario [...] The patient's significant history includes cerebrovascular disease, Ayaan Gastaut Syndrome, chronic dysphagia with PEJ placement, and intellectual disability. Assessment: The [facility] nurse was asked to reassess a worsening PEGJ site secondary to increased sanguinous exudate after Eliquis was initiated. On assessment, the area appears more denuded, erythemic, and with the top layer of epidermal eroded. The [facility] nurse conversed with the family/primary nurse about [...] Cleansed (Comment) *Primary Dressing Acetic acid (with [place]/Nystatin Cream) *Primary Dressing Frequency of Change 2x/day & PRN *Secondary Dressing Foam (Mepilex Up) *Secondary Dressing Frequency of Change 2x/day & PRN Changed by Unit based nurse Ongoing management Nursing;Wound/patternmaker bench Focused assessment completed DRESSING RECOMMENDATIONS: #1 Friction [...] worsening wounds or new wounds. * Gunjan Pickering Pharm.D., R.Ph., [facility] - 03/02/2024 9:34 AM CDT Pharmacist Progress Note Reason for admission: 44 year old male admitted to [facility] Medical ICU on 02/28/2024 for acute hypoxemicrespiratory secondary to community acquired pneumonia. 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 Hemoglobin downtrending, will continue to monitor. Pharm. EfrenD., R.Ph., [facility] [phone] Electronically signed by Gunjan Pickering, Pharm.D., R.Ph., [facility] at 03/02/2024 10:23 AM CDT * Fela Mann RDN, LD - 03/02/2024 [...] (Active) Placement Date/Time: 12/29/23 1309 Placed by: LACEY GI Tube Type: Gastrostomy-jejunostomy;Percutaneous endoscopic Low Profile? [...] Last 3 results Lab Units 03/02/24 0346 03/01/24 2059 03/01/24 0433 02/29/24 0448 02/29/24 0448 02/28/24 [...] displayed. GI Function: Last BM Date: 03/02/24, [place] Stool Chart: Type 7: Watery, no solid pieces, Passing Flatus: Yes. Received tap water enema at 0000 on 03/02. Abdomen noted to be soft and rounded per assessment counselor on 03/02 at 0800. Imaging of abdomen on 03/01 showed Gas is visualized to the level of the distal descending colon, suggestive of a nonobstructive pattern. Estimated Needs: Calories: 9068-1627 calories/day Method to Estimate Energy Needs: kcal/kg [...] about patient's nutritional care please contact pager [phone] on weekdays 07:30-16:00 or [phone] on weekends/holidays ([facility]). * Wes Person M.B.B.S. - 03/02/2024 6:33 AM CDT SUBJECTIVE This [...] tube after initiation of therapeutic anticoagulation #6 Macomb-Gastaut syndrome with recurrent seizures and severe cognitive [...] as outlined below. PLAN BY SYSTEMS: 1. BELT SANDER: We are continuing his home antiepileptics. At [...] And Thrombosis Of Left Femoral Vein (HCC) Mr. Hilario was resting comfortably. Due to [...] of Vancomycin while [facility] [...] of cares as outlined below. NEURO # Ayaan-Gastaut Syndrome # Developmental Delay [...] Code Disposition: ICU Family: Mother, Shelby Varner Duy, M.S.N, C.N.P, AKASH * Gregorio Comer R.R.T., L.R.T. - 03/01/2024 10:57 PM CDT Arterial line placed in the right radial artery * Gregorio Comer R.RMayT., L.R.T. - 03/01/2024 10:30 PM CDT Patient intubated for airway protection and secretion burden. 7.5 ETT secured at 22 cm at teeth. Bronchoscopy performed post intubation, BAL. * Gregorio Comer R.R.T., TezR.Pedro. - 03/01/2024 7:11 PM CDT Patient NT suctioned for thick bloody secretions through Nasal-Pharyngeal airway in the right nare.CCS Team 2 notified of bloody secretions * Gunjan Pickering, PharmMayD., R.Ph., [facility] - 03/01/2024 11:38 AM CDT Pharmacist Progress Note Reason for admission: 44 year old male admitted to [facility] Medical ICU on 02/28/2024 for acute hypoxemicrespiratory secondary to community acquired pneumonia. 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 Family will provide guidance on when to use rescue benzodiazepines vs [id number] of Keppra if needed. Cardiovascular: HD stable, [...] up on speciation. Culture could represent contaminant. Gujnan Pickering, Pharm.D., R.Ph., [facility] [phone] * Malini Lamb L.G.S.Riya., M.S.W. - 03/01/2024 10:29 AM CDT SUBJECTIVE Social Work met with the patient's parents to inform that all in home services have been reconnected. We discussed that the patient is on a [facility] waiver and has not been getting the full benefits due to the difficulty in find RN's that provide in home cares. The patient's mother requested assistance in finding in home longterm services to help fill the gap. Social [...] patient is on a CAC waiver through [facility], his parent's/guardians gave this neonatal social worker permission to contact [facility] to inquire about available services under the CAC waiver. Social Work called and left a message with the CAC worker. The patient receives 3 longterm visits per week through [facility]. Their services have been reconnected as has [facility] for patients oxygen needs and services through [facility] for patients TPN nutrition needs. ASSESSMENT / [...] will return to his parents home in [place], [place] at time of discharge. - The patient's family will provide transportation at time of discharge. - Social Work will continue to follow for supportive visits and discharge planning needs. 1.) Patient will return home with their previous nutrition services. Dialysis/Infusion - Admitted Since 02/28/2024 Service Provider Selected Services Address Phone Fax Patient Preferred [facility] [address], [facility] [phone] -- Contact: Tc They will continue to [...] Selected Services Address Phone Fax Patient Preferred [facility] [address] [facility] [address] [phone] -- Contact: Jesica What Care are they providing for the patient: Snf visit 7 days a week for 1 hour. How do we reach your agency on a weekend/holiday? [phone] NURSING: - Complete documentation in the Discharge Navigator including Nursing Report Info and Facility/NextLevel of Care Info - Call report and arrange for the patient???s first visit. - Send required packet of dismissal information with patient, including After Visit Summary and advance directive. PRIMARY SERVICE: - Please provide a non-[facility] home health order for resumption of previous [...] Selected Services Address Phone Fax Patient Preferred [facility] Durable Medical Equipment [phone] [facility] [phone] -- Contact: Imelda Respiratory Equipment : Concentrator [...] male patient with medical comorbidities consisting of Macomb-Gastaut syndrome, developmental delay, ALL treated with chemoradiation, [...] days - Follow up blood cultures with [facility] OBJECTIVE VITAL SIGNS I have reviewed the [...] And Thrombosis Of Left Femoral Vein (HCC) Mr. Hilario was resting comfortably this morning [...] of cares as outlined below. NEURO # Ayaan-Gastaut Syndrome # Developmental Delay [...] Full Code Disposition: ICU Family: Mother, Shelby Gardenia Gordillo, M.S.N, C.N.P, DIFFUSER OPERATOR * Erasmo Lloyd APRN, C.N.P., D.N.P. - 02/29/2024 11:24 AM CDT SUBJECTIVE [...] for today. Plan by Systems: Neuro: # Macomb-Gastaut syndrome # Developmental delay (non verbal at baseline) # Recurrent seizures # History of remote lateral medullary stroke Plan Pain management: Tylenol, and Baclofen as needed. Holding Trenton at this time. Home Medications to be [...] in the setting of hypotension GI: Diet: Software Design Analyst Consult entered to consider restarting feeds Endo: [...] obtained at outside facility. I communicated with [facility] today 02/29/2024, they state that both blood [...] : yes * Gunjan Pickering, Pharm.D., R.Ph., [facility] - 02/29/2024 11:04 AM CDT Pharmacist Progress Note Reason for admission: 44 year old male admitted to [facility] Medical ICU on 02/28/2024 for acute hypoxemicrespiratory secondary to community acquired pneumonia. 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 Plan to initiate apixaban today. Gunjan Pickering, Pharm.D., R.Ph., [phone] Electronically signed by Gunjan Pickering, PharmMayDMay, R.Ph., [facility] at 02/29/2024 2:13 PM CDT * David Arreaga RMayN., C.W.C.N. 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 * Gunjan Pickering, Pharm.D., R.Ph., [facility] - 02/29/2024 9:26 AM CDT Images from the original note were not included. Admission Medication History Note Adherence issues: No concerns Medication list source: Family member, Outside facility MAR, and Pharmacy or dispense records Prior to Admission Medications Med List Status: Pharmacy Complete Set By: Gunjan Pickering, PharmMayDMay, R.Ph., [facility] at 02/29/2024 9:26 AM Taking? Last [...] times a day as needed (seizures). 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 . Medications reviewed Proph: [facility] Joanne Joiner PharmElys., R.Ph. * Wes Person M.B.BMayS. 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 - 03/10/2024 5:29 PM CDT REFERRAL SOURCE [facility] HSS B, operating room REASON FOR ADMISSION - s/p ex lap, right hemicolectomy for cecal perforation, mobilization of gallbladder, discontinuity, packing (quick clot, lap pad), TAC HISTORY OF PRESENT ILLNESS Mr. Hilario is a 44 year old male with a PMH of Macomb-Gastaut syndrome, developmental delay, ALL treated with chemoradiation, hx of lateral medullary stroke at age 12, and seizures who presented to OSH ED with shortness of breath and hypotension. He was admitted to the MICU. Patient was utilizing BiPAP for respirator failure. He was requiring vasopressors. He was started on doxycycline and ceftriaxone. Patient was also started on Bactrim for Stenotrophomonas in the tracheal secretions. He was intubated 03/01 for concern for secretion clearance. Neurology was consulted for encephalopathy. CT of the head revealed no structural abnormality. His symptoms were thought to be related to his acute illness and polypharmacy. Due to persistent encephalopathy despite without a clear explanation, EEG was completed which showed changes not unexpected given his Ayaan-Gostout and anti-epileptic medications. MRI of the head was ordered on 03/06 and revealed non-contributory small 5 mm presumed meningioma about the left frontal convexity and stable appearance of presumed small cavernous hemangioma within the right cerebellar hemisphere. On 03/07/24, patient was observed opening his eyes occasionally. Due to concerns for abdominal distention, CT of the abdomen and pelvis was obtained revealing functional ileus. Tube feeds were held. His abdominal distention persisted and an orogastric tube was placed and hooked to low intermittentsuction --a large amount of gastric contents were removed. Abdominal x-ray was performed on 03/[address] abdomen and pelvis was performed on 03/10/2024 and confirmed large abdominal free air with possible defect near the GJ tube. HSS was consulted and he proceeded to the OR and underwent right hemicolectomy for cecal perforation, mobilization of gallbladder, discontinuity, packing (quick clot, lap pad), TAC. He was given 1.5 L IVF, 2 units PRBC, 500 mL albumin in OR. REVIEW OF SYSTEMS Review of systems not obtained due to patient factors: altered mental status, sedated, and ventilated. PAST MEDICAL/SURGICAL HISTORY Past Medical History: Diagnosis [...] URETER; Surgeon: Ermias Young M.D., M.P.H.; [facility] EXCHANGE URETERAL STENT Left 04/05/2023 Procedure: EXCHANGE URETERAL STENT.; Surgeon: Bi Rivera M.D.; Location: [facility] OR OTHER SURGICAL HISTORY N/A Gastrocnemius recession (eg, Maren procedure).. RETROGRADE PYELOGRAM Left 04/05/2023 Procedure: RETROGRADE PYELOGRAM; Surgeon: Bi Rivera M.D.; Location: [facility] OR SINUS SURGERY 1987 URETEROSCOPY WITH LASER LITHOTRIPSY Left 04/05/2023 Procedure: URETEROSCOPY WITH LASER LITHOTRIPSY.; Surgeon: Bi Rivera M.D.; Location: [facility] OR SOCIAL HISTORY Social History Socioeconomic History Marital status: Single Spouse name: Not on file Number of children: Not on file Years of education: Not on file Highest education level: Not on file Occupational History Not on file Tobacco Use Smoking status: Never Smokeless tobacco: Never Substance and Sexual Activity Alcohol use: Never Drug use: Never Sexual activity: Not on file Other Topics Concern Not on file Social History Narrative Not on file Social Determinants of Health Food Insecurity: Patient Unable To Answer (03/07/2024) Hunger Vital Sign Worried About Running Out of Food in the Last Year: Patient unable to answer Ran Out of Food in the Last Year: Patient unable to answer Transportation Needs: Patient Unable To Answer (03/07/2024) PRAPARE - Transportation Lack of Transportation (Medical): Patient unable to answer Lack of Transportation (Non-Medical): Patient unable to answer Intimate Partner Violence: Patient Unable To Answer (03/07/2024) Humiliation, Afraid, Rape, and Kick questionnaire Fear of Current or Ex-Partner: Patient unable to answer Emotionally Abused: Patient unable to answer Physically Abused: Patient unable to answer Sexually Abused: Patient unable to answer Housing Stability: Patient Unable To Answer (03/07/2024) Housing Stability Housing: Living Situation: Patient unable to answer FAMILY HISTORY Family History Problem Relation Name [...] Grandmother Champ leon Sleep apnea Maternal Grandmother Champrosetta leon Depression Maternal Grandmother Champrosetta leon Stroke Paternal Grandfather Suleman timothy Diabetes Paternal Grandfather Suleman aguirre Dementia Paternal Grandmother shauna hilario Gestational diabetes Sister neeta hilario Gestational diabetes Daughter neeta hilario Thyroid disease Sister andrés hilario OBJECTIVE I have reviewed the current vital sign data as applicable to this admission. PHYSICAL EXAM General appearance: intubated, mechanically ventilated, sedated, chronically ill appearing, and in no acute distress Neurologic: sedated HEENT: normocephalic, without obvious abnormality and sclera anicteric Chest: bilateral breath sounds, wheezing none, crackles none, and rhonchi none Heart: regular rate and rhythm, S1 and S2 normal, no murmur Abdomen: temporary abdominal closure with good suction, serosang output, distended, and tympanic Extremities: warm, well perfused and capillary refill < 3 seconds Skin: see nursing documentation, groin rash, j tube site with redness DIAGNOSTICS I have reviewed relevant laboratory, imaging, and other diagnostics as applicable. ASSESSMENT / PLAN PLAN BY SYSTEMS: HEMODYNAMICS/CV: Patient currently in SR, HR 70-80. SBP 110's, MAP > 65. Currently on phenylephrine from OR, willchange to NE post operatively and titrate to keep MAP > 65. Will obtain EKG, troponin, lactate. ECHO obtained 03/01/2024 demonstrated normal LV size, no regional wall motion abnormalities, LVEF 66% normal LV filling pressure, normal RV size, borderline reduced systolic function, RVSP 34, [id number] tricuspid valve regurgitation, tiny posterior pericardial effusion. PLAN: continue IVF resuscitation, NE to keep MAP > 65 NEUROLOGIC: Patient is currently sedated with propofol. Will plan to keep propofol at a higher level given his seizure disorder. Will add ketamine infusion. Will add fentanyl infusion for analgosedation. Patientwith severe seizure disorder and takes multiple medications which are currently unable to give given his bowel is in discontinuity. Will consult neuro critical Care for their guidance. Plan to continue keppra, propofol, and ketamine overnight. If unable to use propofol, can schedule ativan 2 mg IV Q6H scheduled. Will continue Keppra IV BID for now. PULMONARY: - vent settings: CMV 15, 330, PEEP 10, 0.40 - ABG: pending - CXR: low lung volumes, ETT and PICC in appropriate position - encourage aggressive pulmonary hygiene RENAL: Will give mIVF LR @ 75 mL/hr. Continue to follow volume status assessments. PLAN: continue to follow renal function, electrolytes, and UOP closely ID: - WBC: pending - antibiotics: ceftriaxone, flagyl - cultures: - see micro PLAN: continue empiric antibiotics, will obtain blood cultures HEME: Patient was found to have DVT of the LLE mid to lower femoral vein through popliteal vein on 02/27 and was started on apixaban. Patient given given 2 units PRBC intra operatively for bleeding. Will check CBC and TEG post operatively and correct coagulopathy as able. VASCULAR ACCESS: - PIV - R PICC - L rad art line GI/NUTRITION: - NGT: LCS - diet: NPO - bowel regimen: none PLAN: strict NPO, NG to LCS, plan for return to OR 03/11 vs 03/12 ENDOCRINE: - glucose: stable thus far, no insulin currently, start if glucose > 180. - steroids: none PLAN: follow glucose on BMP MUSCULOSKELETAL: - activity: no restrictions SKIN: - repositioning per nursing - midline incision, Ab Thera in place, management per surgical team PROPHYLAXIS: - DVT: SCDs, holding given intra operative bleeding, consider starting tonight pending TEG and Hgb - GI: pantoprazole 40 mg IV daily CODE STATUS: - FULL CODE DISPOSITION: - SICU #1 Leukemia Lymphocytic Acute Remission (HCC) #2 Seizure (HCC) #3 Macomb Gastaut Syndrome (HCC) #4 Pneumonia #5 Dysphagia #6 Cerebrovascular Disease #7 Reflux Esophageal #8 Severe Sepsis With Septic Shock (HCC) #9 Nephrolithiasis #10 Brain Stem Stroke Syndrome #11 Jejunostomy Status Post (HCC) #12 Delirium (not otherwise specified) #13 Gastrostomy Status (HCC) #14 Apnea Sleep Obstructive #15 Hyponatremia #16 Acute Respiratory Failure With Hypoxia (HCC) #17 Acute Embolism And Thrombosis Of Left Femoral Vein (HCC) #18 Coma (HCC) Associated attestation - Dylan Matson M.D. - 03/10/2024 7:17 PM CDT I reviewed the resident/fellow's note and agree with the documented findings and plan of care. The reason the patient is critically ill and the nature of the treatment and management provided by the teaching physician (me) to manage the critically ill patient is: Respiratory failure, sepsis, coagulopathy with bleeding, colon perforation, temporary abdominal closure. The patient was critically ill during the time that I saw the patient. My Critical Care Time excluding procedures was 35 minutes. Patient underwent exploration for pneumoperitoneum and was found to have perforated cecum with cecal volvulus. He also has sigmoid volvulus and had cholecystitis. He is on Eliquis which he received today and cholecystectomy had to be abandoned because of coagulopathic bleeding. He has an ABThera inplace and the liver is packed. He is currently on mechanical ventilation SIMV mode as he has been through an endotracheal tube. He is on norepinephrine and vasopressin for pressors. Fluids are going at 75 cc an hour. He received 2 units of packed red cell transfusion in the OR last hemoglobin is 8.8. Thromboelastogram is pending. He has not received Kcentra nor other reversal agents. He does havea history of medullary stroke in the distal past. As he is in intestinal discontinuity neurology has given recommendations for seizure control. Physical examination: Blood pressure 101/63, pulse 67, temperature 36.3 ??C, temperature source Axillary, resp. rate 15, height 156 cm, weight 70.7 kg, SpO2 100%. Intubated and sedated Chest with coarse breath sounds throughout Heart regular Abdomen with ABThera dressing in place. G-tube with chronic inflammation depressed skin at the G-tube site. Serosanguineous drainage in ABThera reservoir. Absent bowel sounds. Extremities cool and dusky peripherally. Impression/plan: 44-year-old male with cecal volvulus status post resection for perforation. He is cholecystitis andcoagulopathy. Cholecystectomy was abandoned because of coagulopathic bleeding. He also has evidenceof the sigmoid volvulus, likely related to his chronic constipation. He is currently requiring pressors. He dropped his blood pressure below 90 with ventilator recruitment maneuver indicating that heis intravascularly depleted. We will increase IV fluids to a resuscitative rate of 150 cc an hour. Given the degree of bleeding intraoperatively I think we can empirically transfuse plasma to try to gently correct his anticoagulation and coagulopathy given his history of CVA. I would reserve Kcentra for evidence of ongoing coagulopathy and bleeding despite plasma transfusion. Patient remains on broad-spectrum antibiotics. * Jose Delatorre M.D. - 03/03/2024 10:17 AM CDT Say Hilario 03/03/24 10:17 AM CDT Hospital Day: 4 Neuro ICU Consult Referral: MICU Chief Complaint: Coma History of Present Illness: Say Hilario is a 44 y.o. male patient with developmental delay secondary to Ayaan-Gastautsyndrome with medically refractory seizures, ALL treated with [...] Father andrés hilario Ulcerative colitis Father andrés a yanelis Arthritis Maternal Grandfather champrosetta aguirre Coronary artery disease Maternal Grandmother Champrosetta leon Transient ischemic attack Maternal Grandmother Champ leon Hypertension Maternal Grandmother Champ leon Sleep apnea Maternal Grandmother Champ leon Depression Maternal Grandmother Champ leon Stroke Paternal Grandfather Suleman timothy Diabetes Paternal Grandfather Suleman aguirre Dementia Paternal [...] hypoxemic respiratory failure secondary to aspiration pneumonia Macomb-Gastaut syndrome Medically refractory epilepsy Cognitive delay The [...] will continue to follow along. Please page [phone] with additional questions. Addendum I re examined the patient around 12 30 p.m. and for p.m.. At 12:30 p.m. the patient opens his eyes to pain a kept them open for brief periods of time. Between 12 30 and 2 he kept his eyes opened intermittently and moved his head [id number] as per family and bedside nurse report. He is also triggering the ventilator. He received his antiseizure medications around 2 and became more somnolent. At 4:00 p.m. the neurologic examination was similar to the morning, likely due to recent administrationof antiseizure medications. We will continue to monitor clinically. Continue to avoid sedation. Continue AEDs at home doses. Bedside nurse, family, and CCM aviation consultant updated. * Erasmo Lloyd APRN, C.N.P., D.N.P. - 02/28/2024 1:07 PM CDT SUBJECTIVE CHIEF COMPLAINT 44-year-old male patient with history of Ayaan-Gastaut syndrome presenting to the medical intensive care unit for further evaluation and management of acute respiratory failure. HISTORY OF PRESENT ILLNESS Say Hilario is a 44 y.o. male patient with history of Macomb-Gastaut syndrome, developmental delay, ALL treated with chemoradiation, hx of lateral medullary stroke at age 12, seizures, who presents to [facility] Medical Intensive Care unit via ambulance for further evaluation and management of acute respiratory failure in the setting of pneumonia (most likely community-acquired). Patient presented to [facility] Emergency Department the morning of [...] his presentation to the emergency department at [facility], patient was started on BiPAP for hypoxia. [...] to the medical intensive care unit at [facility] alert, to IVs in place,as well [...] a 44-year-old male patient with history of Ayaan-Gastaut syndrome in the setting of community- acquired [...] needed, p Plan by Systems: Neuro: # Macomb-Gastaut syndrome # Developmental delay (non verbal at baseline) # Recurrent seizures # History of remote lateral medullary stroke Plan Pain management: Tylenol, Trenton and Baclofen as needed. Home Medications to [...] Elisa Chapman R.N. Authorized by: Tam Huang, P.A.-Girish., M.S. Care team members present 1. Elisa [...] to release the adhesive from the skin. [email or web address]/[email or web address] * Gregorio Comer R.RRoberth., L.R.T. - 03/01/2024 10:55 PM CDTAssociated Order(s): Invasive Line Invasive Line Performed by: Gregorio Comre R.R.T., L.R.T. Authorized by: Wes Person M.B.BMaySMay Location: [...] PHYLICIA participated or performed the procedure. The aviation consultant participated in or was aware of the procedure. Associated attestation - Tam Brower M.D. - 03/02/2024 5:23 AM CDT [facility] Procedure Attestations: Accredited PHYLICIA participated in the case, and the aviation consultant was present for the entire case. * Ivory Paredes P.A.-C., M.S. - 03/01/2024 10:00 PM CDTAssociated Order(s): Intubation Post-Procedure Diagnose(s): Acute Respiratory Failure With Hypoxia (HCC) Intubation Performed by: Ivory Paredes P.A.-C., M.S. Authorized by: Ivory Paredes P.A.-C., M.SMay Care team members present 1. Tam Brower M.D. Patient location during procedure: ICU / PCU PROCEDURE DETAILS: Mask difficulty assessment: easy mask Final airway type: video laryngoscope Laryngeal Manipulation: no Final best view of glottic structures - Cormack/Lehane Score: grade 2A ETT location: oral VL device: glide scope Clark scope blade size: 4 Tube size: 7.5 [...] PHYLICIA participated or performed the procedure. The aviation consultant participated in or was aware of the procedure. Associated attestation - Tam Brower M.D. - 03/02/2024 5:23 AM CDT [facility] Procedure Attestations: Accredited PHYLICIA participated in the case, and the aviation consultant was present for the entire case. documented in this encounter Consult Notes * Chiquita Grigsby M.D. 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 He also has a history of ALL treated with chemoradiation and a prior lateral medullary stroke in childhood. He is nonverbal at baseline. He was admitted to the medical ICU on 02/28/24 for hypoxemic respiratory failure and hypotension from community-acquired pneumonia. During this hospitalization, he developed pneumoperitoneum with concern for gastric perforation and went to the OR for laparotomy, right hemicolectomy and temporary abdominal closure for perforated cecal volvulus. Prior to this he was GJ tube dependent. He will be on TPN and cannot have any meds by the GI system. We are therefore consulted to assist with antiseizuremedication changes to IV while he cannot have his home regimen. Per notes, he developed leukemia at 20 months of age and subsequently received radiation therapy and intrathecal methotrexate. 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 Notes indicate that he has been on many meds in the base including valproic acid, phenobarbital, carbamazepine, ethosuximide, gabapentin, topiramate, zonisamide. I spoke with the patient's parents who were at bedside. They note that he was on valproic acid in childhood but developed hepatic issues.He was on phenobarbital in childhood but was sleepy. At baseline, they note that his seizures are usually brief tonic seizures which cluster while going to sleep or waking up. They occur most days. Sometimes there is more of generalized tonic- clonic activity which can cluster together. They administer the rescue medication about monthly for clusters of these. They note that his seizure frequency at home is very manageable as it has been recently. He is current on the following combination of antiseizure medications: Cannabidiol 400 mg a.m., and 600 mg p.m. Clobazam 15 mg in the a.m. and 10 mg in the evenings Felbamate 1500 mg before breakfast and 1200 mg at 2:00 p.m. and 2100 Lamotrigine 350 mg in the a.m., 350 mg at 2:00 p.m., 300 mg at bedtime Levetiracetam 1500 mg in the a.m. and 1600 mg q.h.s. with PRN 200 mg t.i.d. Rufinamide 200 mg AM and 400 mg q.h.s. OBJECTIVE VITAL SIGNS Vitals: 03/11/24 0615 03/11/24 0630 03/11/24 0645 03/11/24 0700 BP: BP Location: Patient Position: Pulse: 73 73 72 72 Resp: 15 15 15 15 Temp: TempSrc: SpO2: 98% 98% 98% 98% Weight: Height: Intake/Output 03/10/24 0700 - 03/11/24 0659 03/11/24 0700 - 03/12/24 0659 Intake (ml) 6782.2 175.1 Output (ml) 1695 40 Net (ml) 5087.2 135.1 PHYSICAL EXAM Neuro: sedated on propofol. Intubated and mechanically ventilated. Pupils react to light. Diagnostics Last EEG done on 03/06/24 while the patient was intubated but off sedation showed: Severe degree of diffuse slowing and frequent [...] be due to the effect of medications. ASSESSMENT / PLAN Say Hilario is a 44 y.o. male who epilepsy is consulted on. He has a history of intractable epilepsy in the setting of [place] Gastaut Syndrome. Epilepsy is consulted for assistance with antiseizure medications due to his recent GI surgery and inability to take anything via the GI system. In speaking with the primary team, the patient is planned to go back to the OR soon and will remainon sedation due to this. Regarding his current medications: Cannabidiol 400 mg a.m., and 600 mg p.m. --> cannot be given IV Clobazam 15 mg in the a.m. and 10 mg in the evenings --> cannot be given IV Felbamate 1500 mg before breakfast and 1200 mg at 2:00 p.m. and 2100 --> cannot be given IV Lamictal 350 mg in the a.m., 350 mg at 2:00 p.m., 300 mg at bedtime --> cannot be given IV Levetiracetam 1500 mg in the a.m. and 1600 mg q.h.s. with PRN 200 mg t.i.d. --> transition to levetiracetam 2000 mg BID IV Rufinamide 200 mg AM and 400 mg q.h.s.--> cannot be given IV Since he is unable to take cannabidiol, felbamate, lamotrigine, and rufinamide, I would recommend initiating the following: -Load lacosamide 400 mg IV and start 200 mg IV BID So in summary, while on sedation, I would recommend he be on levetiracetam 2000 mg BID IV and lacosamide 200 mg BID IV As long as he is sedated with propofol, he does not need to be on a scheduled benzodiazepine. Once sedation is being weaned, I would initiate lorazepam 2 mg q6 hours IV. If once sedation is weaned, the patient is having seizures that are difficult to control then I would consider the initiation of phenobarbital or potentially valproic acid, depending on the timing ofwhen that may be in relationship to his last dose of lamotrigine. If once sedation is weaned, there is concern for worsened seizure frequency or status epilepticus, then there should be a low threshold to initiate prolonged EEG monitoring. However, if seizures remain at baseline---with brief tonic seizures most days around the time of sleep, then prolonged EEG may not be necessary. The patient will not be completely seizure free, and the family is understandingof this. If medications via the GJ tube are held for longer than 7 days, then we should consider a titrationwhen restarting the lamotrigine, as opposed to just reinitiating his home dose due to a risk of Ren's Anthony Syndrome. 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 HOSPITAL PROBLEM LIST #1 Leukemia Lymphocytic Acute Remission (HCC) #2 Seizure (HCC) #3 Ayaan Gastaut Syndrome (HCC) #4 Pneumonia #5 Dysphagia #6 Cerebrovascular Disease #7 Reflux Esophageal #8 Severe Sepsis With Septic Shock (HCC) #9 Nephrolithiasis #10 Brain Stem Stroke Syndrome #11 Jejunostomy Status Post (HCC) #12 Delirium (not otherwise specified) #13 Gastrostomy Status (HCC) #14 Apnea Sleep Obstructive #15 Hyponatremia #16 Acute Respiratory Failure With Hypoxia (HCC) #17 Acute Embolism And Thrombosis Of Left Femoral Vein (HCC) #18 Coma (HCC) If there are questions regarding the epilepsy or antiseizure medications, please contact the Epilepsy [facility] service. * Jenae Rodriguez - 03/10/2024 12:36 PM CDTAssociated Order(s): IP CONSULT TO DIETITIAN Nutrition Support Service Patient evaluated by Nutrition Support Service with Dr. Rick Casillas. SUBJECTIVE Mr. Hilario is a 44 y.o. male admitted for hypoxic and hypercapnic respiratory failure in the setting of community-acquired pneumonia. Completed visit with family today as part of face to face care. Current Nutrition (since admission): Patient was started on enteral nutrition with Peptamen 1.5 on 02/28 via the J-port of his feeding tube. Formula was switched to Peptamen AF on 03/01 to better reflect his home tube feeding regimen. Feeds only received the rate of 20 mL/hr due to the concern for anileus following imaging of the abdomen. The feeds were then restarted until 03/06-03/07 in which the patient was at his goal rate of 55 mL/hr. Due to a functional ileus, the patient has been made NPO and tube feeds are being held, resulting in the consult for the initiation of TPN. An aggressive bowel regimen has been started (enema, dulcolax, suppository) to allow for the return of bowel function and to aid in reducing stomach distention. An oral gastric tube was placed on 03/09 and is currently being used for suctioning/venting. The G-J tube is also being used currently for venting and medication administration. Patient continues to remain intubated 24 hour Output Tubes: 03/07-03/08: 125 mL 03/08-03/09: 975 mL 03/09-03/10: 3,325 mL Tube Information: GI Tubes (Adults) Gastrostomy-jejunostomy;Percutaneous endoscopic 22 Fr Left;Lower;Quadrant (abdomen) (Active) Placement Date/Time: 12/29/23 1309 Placed by: AL6 GI Tube Type: Gastrostomy-jejunostomy;Percutaneous endoscopic Low Profile? : Yes Does it have a balloon? : Yes Balloon Volume: 10 mL GI Tube Size: 22Fr Stoma Length (cm): 3.5 Tube Location: L... GI Tubes (Adults) Orogastric 18 Fr Oral (Active) Placement Date/Time: 03/09/24 1600 GI Tube Type: Orogastric GI Tube Size: 18 Fr Tube Location: Oral Nutrition history: Patient uses tube feeds at [...] weeks, intake has been minimal to none. Food Allergies: NKFA Chewing/Swallowing Issues: VFSS with OUTDOOR [employer]CH[employer]ECT last noted to be completed on 12/30/23 and recommended regular textured foods with thin liquids for pleasure. OBJECTIVE Current Nutrition Orders: Current Diet adult/child > 40 kg central parenteral nutrition (CPN) infusion at 45.8 mL/hr starting at 03/10 2100 Current Parenteral Nutrition Program: Start Date: 03/10/24 Access: Central (PICC) Volume: 1100 mL/day over 24 hours Dextrose: 200 grams Amino Acids: 105 (1.5 g/kg) Lipid Emulsion: none; ( held due to OR procedure scheduled and most likely need for propofol ) Electrolytes: 90 mEq sodium, 60 mEq potassium, 12 mEq calcium, 15 mEq magnesium, 20 mmol phosphate Chloride/Acetate Ratio: 1:1 Additives: multivitamin, multiple trace element, extra 100 mg thiamine Provides: 1100 calories/day (105% HB or 22.6 kcals/kg- based on 70.7 kg) GI Function: Last BM Date: 03/08/24, [place] Stool Chart: Type 7: Watery, no solid pieces, Passing Flatus: Yes Integumentary/Wounds: Lines/Drains/Airways Wound Duration Wound 03/12/23 Other Moisture Associated Skin Damage Abdomen Left;Lower GJ-Tube 364 days Wound 02/28/24 Friction Injury Buttocks with Incontinence Associated Dermatitis to Bilateral Groin 10 days PIV and CVC Peripherally inserted central catheter Duration PICC Double Lumen 03/02/24 Valved Right Basilic 8d 1h Peripheral IV Duration Peripheral IV 03/01/24 18 G Anterior;Right;Upper Arm 8d 14h Pertinent Labs: Results from last 7 days Lab Units 03/10/24 1138 03/10/24 0824 03/10/2441803/07/24 1149 03/07/24 1113 03/06/24 0601 03/06/24 0556 SODIUM mmol/L -- -- 139 < > -- < > -- POTASSIUM mmol/L -- -- 3.8 < > -- < > -- POTASSIUM P mmol/L -- -- -- -- 5.2 -- -- CHLORIDE mmol/L -- -- 95* < > -- < > -- BICARBONATE S mmol/L -- -- 31* < > -- < > -- ANION GAP -- -- 13 < > -- < > -- BUN mg/dL -- -- 20 < > -- < > -- CREATININE mg/dL -- -- 0.59* < > -- < > -- ESTIMATED GFR EGFR mL/min/BSA -- -- >90 < > -- < > -- GLUCOSE S mg/dL -- -- 88 < > -- < > -- POC GLUCOSE mg/dL 96 < > -- < > -- < > -- CALCIUM mg/dL -- -- 9.2 < > -- < > -- ALBUMIN g/dL -- -- -- -- -- -- 2.6* PHOSPHORUS INORGANIC mg/dL -- -- 2.8 -- -- -- -- < > = values in this interval not displayed. Results from last 7 days Lab Units 03/10/24 1138 03/10/24 0803/10/2441803/07/24 1149 03/07/24 1113 SODIUM mmol/L -- -- 139 < > -- POTASSIUM mmol/L -- -- 3.8 < > -- POTASSIUM P mmol/L -- -- -- -- 5.2 CHLORIDE mmol/L -- -- 95* < > -- BICARBONATE S mmol/L -- -- 31* < > -- CREATININE mg/dL -- -- 0.59* < > -- ESTIMATED GFR EGFR mL/min/BSA -- -- >90 < > -- BUN mg/dL -- -- 20 < > -- ANION GAP -- -- 13 < > -- GLUCOSE S mg/dL -- -- 88 < > -- POC GLUCOSE mg/dL 96 < > -- < > -- CALCIUM mg/dL -- -- 9.2 < > -- < > = values in this interval not displayed. Last 3 results Lab Units 03/10/24 0419 03/09/24 0322 03/09/24 0317 03/08/24 0522 POTASSIUM mmol/L 3.8 4.8 -- 5.0 MAGNESIUM mg/dL 2.4* -- 2.1 -- Medications: Scheduled Meds:acetic acid, 1 Application, topical, TID [Held by provider] baclofen, 10 mg, gastric tube, 4x Daily [Held by provider] cannabidioL, 400 mg, gastric tube, Daily And cannabidioL, 600 mg, gastric tube, Daily at bedtime cefTRIAXone, 2 g, intravenous, Q24H chlorhexidine, 15 mL, swish & spit, BID [Held by provider] cloBAZam, 10 mg, gastric tube, QPM [Held by provider] cloBAZam, 15 mg, gastric tube, QAM [Held by provider] felbamate, 1,200 mg, gastric tube, BID [Held by provider] felbamate, 1,500 mg, gastric tube, Daily before breakfast fluconazole in dextrose (iso osm), 400 mg, intravenous, Q24H hydrocortisone, , topical, TID [Held by provider] lamoTRIgine, 350 mg, gastric tube, QAM And [Held by provider] lamoTRIgine, 350 mg, gastric tube, Every afternoon And [Held by provider] lamoTRIgine, 300 mg, gastric tube, Daily at bedtime levETIRAcetam, 1,600 mg, intravenous, QPM levETIRAcetam, 1,500 mg, intravenous, QAM [Held by provider] levETIRAcetam, 1,500 mg, gastric tube, QAM [Held by provider] levETIRAcetam, 1,600 mg, gastric tube, Daily at bedtime metroNIDAZOLE in NaCl (iso osm), 500 mg, intravenous, Q8H nystatin, 1 Application, topical, TID pantoprazole, 40 mg, intravenous, Daily polyethylene glycol, 17 g, gastric tube, BID [Held by provider] rufinamide, 200 mg, gastric tube, QAM [Held by provider] rufinamide, 400 mg, gastric tube, Daily at bedtime sennosides, 15 mL, small bowel tube, BID sodium chloride, 10-30 mL, intravenous, Q7 Days sodium chloride, 10-30 mL, intravenous, Q7 Days sodium chloride, 3 mL, intravenous, Q24H JULIO sulfamethoxazole-trimethoprim, 3.5 mg/kg of trimethoprim, gastric tube, Q8H Continuous Infusions:adult/child > 40 kg central parenteral nutrition (CPN) infusion, NaCl 0.9% infusion, 3 mL/hr, Last Rate: Stopped (03/08/24 1350) PRN Meds:. acetaminophen bisacodyL dextrose dextrose D5W D5W dextrose 40% docusate sodium glucose ipratropium-albuteroL NaCl 0.9% bacteriostatic NaCl 0.9% NaCl 0.9% sodium chloride sodium chloride sodium chloride sodium chloride sodium chloride sodium phosphates Malnutrition Assessment Malnutrition criteria not met The patient does not meet the ASPEN Criteria of malnutrition based on: Energy Intake: No Change Interpretation of Weight Loss: No Change Body Fat: Normal Muscle Mass: Normal Fluid Accumulation: Mild (Not in the context of malnutrition) This is in the context of Chronic Illness. Anthropometrics: Height: 156 cm Admission Weight: 69.4 kg (02/28/2024) Current Weight: 70.7 kg BMI (Calculated): 29.1 kg/m?? Weight change since admission: 1.3 kg Weight Change History: No significant weight loss seen over the past year. Weight has trended up this admission due to fluid changes. Estimated Needs: Total Calorie Needs: 4825-9963 calories/day (20-25 kcals/kg); 1504 HB Basal Method to Estimate Energy Needs: kcals/kg and HB ( 20-25 kcals/kg; HB Basal ) Weight Used for Equation Calculations: 69.4 kg (admit weight) Total Protein Needs: 83 - 104 grams/day Method to Estimate Protein Needs (g/kg): 1.2 - 1.5 gm/kg Weight Used to Calculate Protein Needs (Kg): 69.4 kg (admit weight) NUTRITION DIAGNOSIS: Altered GI function related to functional ileus as evidenced by need for parenternal nutrition Nutrition Diagnosis Reassessment: Ongoing NUTRITION PLAN/MONITORING/EVALUATION: Interventions: Parenteral nutrition, Collaboration and referral of nutrition care Monitoring: Parenteral, Nausea/Vomiting/Diarrhea, Pertinent Labs, Comparative Standards, Weight Status, Ascites/Edema, Mental Status/Confusion, Fluid Balance Evaluation: Progressing ASSESSMENT / PLAN ASPEN Criteria Malnutrition Status: Malnutrition criteria not met RECOMMENDATIONS: See Dr. Casillas's note for the final TPN recommendations. Nutrition Support Service ([facility]) will continue to follow. Page [phone] with questions. * Aleks Hinkle M.D. - 03/10/2024 11:24 AM CDT 44-year-old male with developmental delay parents at bedside consultation placed for CT scan findings of pneumoperitoneum with concern for gastric perforation. The Patient is hemodynamically stable tender and distended in the abdomen. Appears he has had ongoing distention for several days with intermittent bowel function and ileus. He had been previously tolerating his tube feeds. With aggressive bowel regimen. No leukocytosis CT scan reviewed initially my impression is this is colonic in nature. I see some free fluid next to the hepatic flexure with additional free air. Will plan for minimally invasive exploration to determine etiology and proceed as indicated from there. * Jacki Suh M.B.B.SMay - 03/10/2024 10:56 AM CDTAssociated Order(s): General Surgery consult ([facility]) - [facility] General Surgery consult ([facility]) - [facility] Referring Provider: Tam Huang P.A.-C., M.S. Today's date: 03/10/2024 Reason for Consult: pneumoperitoneum History of Presenting Illness: Mr. Hilario is a 44 y.o. male with [place] Gastaut syndrome with recurrent seizures and cognitive delay who was admitted to MICU on 02/28/2024 for acute hypoxic respiratory failure secondary to aspiration pneumonia. He was intubated on 03/01. He remains intubated. He has been off sedation for several days. He is yet to be extubated. Abdominal x-ray was performed earlier today due to increased abdominal distention. This demonstrated large volume pneumoperitoneum. A follow-up CT scan of the abdomen and pelvis demonstrates large volume pneumoperitoneum. Etiologies of the pneumoperitoneum include gastric perforation versus colonicperforation. The patient underwent percutaneous transgastric jejunostomy tube placement in December of this year. This has never been exchange. He also has a nasogastric tube in place. He has had 3.3 L out of this tube over the prior 24 hours. Last charted bowel movements was 3 days ago. The patient remains intubated and mechanically vented in the MICU. He has not currently sedated. Heis hemodynamically stable with a heart rate in the 90s and systolic blood pressure in the 120s. He is significant abdominal distention and tympany. G port of the feeding tube has enteric content draining. WBC is 5.9, hemoglobin 8.1, creatinine 0.58, cystatin C 1.28 Pertinent History Review: MEDICAL HISTORY - [place]-Gastaut -seizure disorder -cognitive delay (baseline of an [id number]) -chronic constipation (requires enemas for bowel movements) -urinary retention (requires q.6 hour I/O cath) SURGICAL HISTORY No prior abdominal surgeries CURRENT MEDICATIONS No blood thinners or immunomodulators including steroids. ALLERGIES/CONTRAINDICATIONS No allergies to antibiotics FAMILY HISTORY Non-contributory SOCIAL HISTORY Lives with mother and father who are present at bedside. At baseline, interacts with his parents. He has a cognitive age of an [id number]. ROS: as mentioned in HPI, otherwise negative Past Medical History: Diagnosis Date Apnea Sleep [...] URETER; Surgeon: Ermias Young M.D., M.P.H.; [facility]: [facility] EXCHANGE URETERAL STENT Left 04/05/2023 Procedure: EXCHANGE URETERAL STENT.; Surgeon: Bi Rivera M.D.; Location: [facility] OR OTHER SURGICAL HISTORY N/A Gastrocnemius recession (eg, Maren procedure).. RETROGRADE PYELOGRAM Left 04/05/2023 Procedure: RETROGRADE PYELOGRAM; Surgeon: Bi Rivera M.D.; Location: [facility] 1988 URETEROSCOPY WITH LASER LITHOTRIPSY Left 04/05/2023 Procedure: URETEROSCOPY WITH LASER LITHOTRIPSY.; Surgeon: Bi Rivera M.D.; Location: [facility] OBJECTIVE Vitals Temperature: [36.5 ??C-37.2 ??C] 36.8 ??C Heart Rate: [92-103] 100 Resp Rate: [7-] 19 Blood Pressure: (94-137)/(58-111) 115/59 FiO2 (%): [30 %-40 %] 40 % SpO2: [85 %-100 %] 94 % Height: [156 cm] 156 cm Weight: [70.7 kg] 70.7 kg BMI (Calculated): [29.1 kg/m??] 29.1 kg/m?? Pulse Rate: [92-103] 100 Physical exam: General: Unresponsive HEENT: normocephalic, atraumatic Cardiopulmonary: Intubated with endotracheal tube, mechanically ventilated Abdomen: Significant distention. Tympanic. Skin: Dry Extremities: No significant edema noted Diagnostics: I have reviewed diagnostic labs, imaging, or other testing as appropriate Imaging: DX Abdomen Portable Anterior Posterior 1 View Result Date: 03/10/2024 Impression: Decrease gaseous distention of the colon particularly within the right upper quadrant, however, there are findings are suspicious for pneumoperitoneum. Overall paucity of small bowel gas.Percutaneous gastrojejunostomy tube. Enteric tube tip and side-port extents to the stomach. Findings of this study were communicated to Dr. Jesenia PÉREZ at 8:36 AM on 03/10/2024. DX Abdomen Portable Anterior Posterior 1 View Result Date: 03/09/2024 Impression: Enteric tube with tip and side-port in the stomach. ASSESSMENT / PLAN #1 Pneumoperitoneum #2 [place] Gastaut #3 Aspiration pneumonia requiring mechanical ventilation #4 Chronic constipation #5 S/p gastrojejunostomy tube placement in December 2023 In summary, Say Hilario is a 44 y.o. male with [place]-Gastaut, seizure disorder, and cognitive delay who was admitted to MICU for the management of aspiration pneumonia. He remains intubated. Noted to have increased abdominal distention today. Imaging shows large volume hemoperitoneum. Source of the pneumoperitoneum is either gastric (from the gastrojejunostomy tube) versus colonic. Discussed with the patient's parents proceeding to the operating room for exploration. We will plan to start laparoscopically. If the perforation is indeed gastric, we will plan to repair this robotically. If the perforation is found to be colonic, we will convert to an open procedure and plan to resectthe area and will likely bring up a stoma. Discussed the risks of surgery with the patient including bleeding, infection, injuries to surrounding structures, anastomotic leak, and general anesthesia related complications. The patient will be admitted to the surgical intensive care unit postoperatively. Plan: OR for abdominal exploration, proceed as indicated Start empiric IV Zosyn NPO, nasogastric tube to LIS IV fluid resuscitation Plan was discussed with Dr. Hinkle, who was in agreement. Please page [phone] (HSS-B) with any questions or concerns. Carolina OrtizBMayS. * Rick Casillas M.D. - 03/10/2024 10:17 AM CDTAssociated Order(s): Nutrition support service consult ([facility]) SUBJECTIVE Nutrition support service consult ([facility]) Referring Provider: Tam Huang P.A.-C., M.S. REASON FOR CONSULT Evaluation for parenteral nutrition HISTORY OF PRESENT ILLNESS Mr. Hilario is a 44 y.o. male who has medical history significant for hospital day 11 for acute hypoxic respiratory failure now complicated by ileus. His family knows that there was a decline in oralintake noting the patient was eating in addition to tube feeding but became less interested in doing so has he was developing his illness. At this point, he has not been able to have his tube feedingnow for going on two weeks thus the use of parenteral nutrition is raised. Nutrition History: Wt Readings from Last 6 Encounters: 03/10/24 70.7 kg 12/30/23 70.2 kg 06/25/23 66.6 kg 03/31/23 69 kg 03/11/23 72.5 kg 02/26/23 70.8 kg Body mass index is 29.05 kg/m??. Nutrition Needs: Height: 156 cm Admission Weight: 69.4 kg (02/28/2024) Current Weight: 70.7 kg BMI (Calculated): 29.1 kg/m?? Total Calorie Needs: 2721-8582 (MSJ Basal 1430 kcals) calories/day Method to Estimate Energy Needs: [place]-St Jeor (Basal) Weight Used for Equation Calculations: 69.4 kg Total Protein Needs: 83 - 104 grams/day Method to Estimate Protein Needs (g/kg): 1.2 - 1.5 gm/kg Weight Used to Calculate Protein Needs (Kg): 69.4 kg Current IV Access: PICC Double Lumen 03/02/24 Valved Right Basilic (Active) Placement Date/Time: 03/02/24 (c) 1200 Line Type (REQUIRED): Temporary (non- tunneled, non-implanted) Procedural Pause Completed: Yes Optimal Site Selected: Yes Catheter Time Out Checklist Completed: Yes Hand Hygiene Performed Prior to Insertion:... Peripheral IV 03/01/24 18 G Anterior;Right;Upper Arm (Active) Placement Date/Time: 03/01/24 2300 Size (Gauge): 18 G Orientation: Anterior;Right;Upper Location: Arm PAST MEDICAL HISTORY Past Medical History: Diagnosis Date Apnea Sleep Obstructive Chronic Kidney Disease NOS Complication Anesthesia Initial Dermatitis 2017 Dysphagia Gastroesophageal Reflux Disease NOS 1985 Intellectual Disability Profound 12/01/2020 Leukemia 1981 Pneumonia Post Operative Nausea/Vomiting Seizure (HCC) Lennoy Guustaut Syndrome Sepsis (HCC) 02/22/2023 Sickness Motion Personal History Stroke (HCC) brain stem stroke PAST SURGICAL HISTORY Past Surgical History: Procedure Laterality Date CYSTOSCOPY INSERTION STENT URETER Left 02/22/2023 Procedure: CYSTOSCOPY INSERTION STENT URETER; Surgeon: Ermias Young M.D., M.P.H.; Location: [facility] EXCHANGE URETERAL STENT Left 04/05/2023 Procedure: EXCHANGE URETERAL STENT.; Surgeon: Bi Rivera M.D.; Location: [facility] OR OTHER SURGICAL HISTORY N/A Gastrocnemius recession (eg, Maren procedure).. RETROGRADE PYELOGRAM Left 04/05/2023 Procedure: RETROGRADE PYELOGRAM; Surgeon: Bi Rivera M.D.; Location: [facility] 1987 URETEROSCOPY WITH LASER LITHOTRIPSY Left 04/05/2023 Procedure: URETEROSCOPY WITH LASER LITHOTRIPSY.; Surgeon: Bi Rivera M.D.; Location: [facility] FAMILY HISTORY Family History Problem Relation Name [...] Father andrés hilario Arthritis Maternal Grandfather champ timothy Coronary artery disease Maternal Grandmother Champrosetta leon Transient ischemic attack Maternal Grandmother Champ bahenaniburt Hypertension Maternal Grandmother Champ tsvielka Sleep apnea Maternal Grandmother Champ edward Depression Maternal Grandmother Champ edward Stroke Paternal Grandfather Suleman aguirre Diabetes Paternal Grandfather Suleman aguirre Dementia Paternal Grandmother shauna hilario Gestational diabetes Sister neeta hilario Gestational diabetes Daughter neeta hilario Thyroid disease Sister andrés hilario SOCIAL HISTORY Social History Socioeconomic History Marital status: Single Spouse name: Not on file Number of children: Not on file Years of education: Not on file Highest education level: Not on file Occupational History Not on file Tobacco Use Smoking status: Never Smokeless tobacco: Never Substance and Sexual Activity Alcohol use: Never Drug use: Never Sexual activity: Not on file Other Topics Concern Not on file Social History Narrative Not on file Social Determinants of Health Food Insecurity: Patient Unable To Answer (03/07/2024) Hunger Vital Sign Worried About Running Out of Food in the Last Year: Patient unable to answer Ran Out of Food in the Last Year: Patient unable to answer Transportation Needs: Patient Unable To Answer (03/07/2024) PRAPARE - Transportation Lack of Transportation (Medical): Patient unable to answer Lack of Transportation (Non-Medical): Patient unable to answer Intimate Partner Violence: Patient Unable To Answer (03/07/2024) Humiliation, Afraid, Rape, and Kick questionnaire Fear of Current or Ex-Partner: Patient unable to answer Emotionally Abused: Patient unable to answer Physically Abused: Patient unable to answer Sexually Abused: Patient unable to answer Housing Stability: Patient Unable To Answer (03/07/2024) Housing Stability Housing: Living Situation: Patient unable to answer REVIEW OF SYSTEMS Cannot be obtained. OBJECTIVE VITAL SIGNS Temperature: 36.8 ??C Heart Rate: 100 Resp Rate: 19 Blood Pressure: 115/59 FiO2 (%): 40 % SpO2: 94 % Height: 156 cm Weight: 70.7 kg BMI (Calculated): 29.1 kg/m?? Intake/Output Summary (Last 24 hours) at 03/10/2024 1017 Last data filed at 03/10/2024 0800 Gross per 24 hour Intake 1094.17 ml Output 3717 ml Net -2622.83 ml PHYSICAL EXAM General: He is intubated and sedated. Features of development needs a delay in terms of skeletal structure. Muscle mass is relatively low risk some evidence of edema in legs and arms making this harder to assess. Fat stores are adequate. Lungs: Intubated Cardiovascular: Significant edema Abdomen: He is quite distended and tense. Tympanitic. Gastrostomy site left side of the abdomen being inspected by nutrition Support nurse so some area of skin breakdown around the low profile to which could very well happen in the context of the significant edema noting the low profile tube is notadjustable in terms of its length from skin surface to stomach surface. Legs: He has some areas that are had it to prevent pressure injury otherwise his skin looks fine. Edema. DIAGNOSTICS Labs: Results from last 7 days Lab Units 03/10/24 0419 03/06/24 0601 03/06/24 0556 SODIUM mmol/L 139 < > -- POTASSIUM mmol/L 3.8 < > -- CHLORIDE mmol/L 95* < > -- CREATININE mg/dL 0.59* < > -- ESTIMATED GFR EGFR mL/min/BSA >90 < > -- BUN mg/dL 20 < > -- GLUCOSE S mg/dL 88 < > -- CALCIUM mg/dL 9.2 < > -- MAGNESIUM mg/dL 2.4* < > -- PHOSPHORUS INORGANIC mg/dL 2.8 -- -- ALBUMIN g/dL -- -- 2.6* < > = values in this interval not displayed. Result Date: 03/09/2024 Impression: Enteric tube with tip and side-port in the stomach. Swallow Assessment: 12/30/23 dysphagia ASSESSMENT / PLAN # 22 Fr CALISTA low profile T-G/J replaced in GI on 12/29/23 for dysphagia # Oral gastric tube decompression # Acute Respiratory Failure With Hypoxia # Ileus # Possible gastric perforation at site of feeding gastrostomy tube versus colonic perforation, large pneumoperitoneum # Parenteral nutrition Agree with the initiation of TPN noting ileus, concerns for perforation, expectation that we will not be able to return to enteric nutrition soon and it has already been a week or more since he has been able to have nutrition Recommended parenteral nutrition formula: --Volume: Minimal volume (1100 mL) --Amino Acids:105 g per day (1.5 g/kg) --Dextrose: 200 g per day --Lipids: 50 g per day (SMOF) Thiamine 100 mg IV for three days --Electrolytes: standard --Micronutrients: standard Placement of a triglyceride with next blood draw. Consider resting energy expenditure in the next few days if he can be stable enough to perform thistest. Please call NSS pager at [phone] at [facility] or [phone] at [facility] with any additional questions. BILLING/CODING Total visit 55 minutes. * Lauren Palencia M.S., [facility] - 03/09/2024 2:50 PM CDT Speech Language Pathology Communication/Cognitive Evaluation- Acute Care Session Type: Evaluation Length of session: 12 minutes SUBJECTIVE Referred By: [facility] Trauma and General Surgery History: Mr. Hilario is a 44 y.o. male who was admitted to [facility] on 02/28/2024 due to worseningsymptoms related to pneumonia. Mr. Hilario's medical history is well documented in the electronic medical record, please refer to admission notes for full history. Briefly, patient's hospital course has been complicated. He was intubate don 03/01 due to increased difficulty managing secretions, he has been largely sedated, hwoever when off of sedation only intermittent eye opening appreciated. Neurology was consulted and CT, MRI, and EEG were negative for acute pathology. Of note, small non-contributing left frontal miningioma and small vavernouse right cerbellar hemangioma were appreciated onimpaging and reported on by Neurology. EEG was consistent with his known seizures and medicaions related to this. Patient's medical course has been further complicated by functional ileus. [facility] [employer] [facility] was consulted to assess consciousness with use of [facility]3] Coma Recovery Scale-Revised (CRS-R). Patient's family is present and provides history and information regarding current status and baseline functioning. Pain Pain Assessment Pain Assessment: Critical-Care Pain Observation Tool (CPOT) Pain Score: 0 - No pain OBJECTIVE Objective Session Data Cognition Cognition Comments: suspect DOC Generalized responses to tactile stimuli Occasional spontaneous eye opening Assessment Mr. Hilario's reduced consciousness is likely multi-factoral as described in Neurology's note. We are able to assess small incremental changes with use of serial assessment which is completed with the K Coma Recovery Scale-Revised (CRSR). While sedation during this assessment was minimal, it was on board and so CRSR was not completed. Patient's family reports that during sedation holidays he opens his eyes but no tracking to familiar voices or objects. Occasional spontaneous grimmace or change in facial expression to noxious stimuli. In consistnet withdrawal to pain. Speech Pathology will continue to assess, however given multiple other factors and current medical status, we will monitor daily via chart-review, discussion with team, etc., and proceed with CRSR when patient is able to tolerate break in sedation and is medically appropriate and stable to do so. Please do not hesitate tocontact [employer] with questions or concerns. 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 - 03/08/2024 1:58 PM CDT Physical Therapy Inpatient Evaluation/Treatment SUBJECTIVE Patient's Name: Say Hilario Referring/Attending Provider: Rufus Ba M.B.B.S. 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[facility]) Overgrowth Bacterial Small Bowel Pneumonia Dysphagia Aftercare Feeding Tube Cerebrovascular Disease Reflux Esophageal Severe Sepsis With Septic Shock ([facility]) Nephrolithiasis Weakness General Brain Stem Stroke Syndrome Cannabis Use Unspecified Uncomplicated Intellectual Disability Profound Lethargy Acute Cystitis With Hematuria Anemia Macrocytic Cough Acute Rash Groin Jejunostomy Status Post ([facility]) Delirium (not otherwise specified) Aspiration Pneumonia Secondary to Procedure Hematuria Cyst Renal Gastrostomy Status ([facility]) Apnea Sleep Obstructive Hyponatremia Change Mental Status Acute Respiratory Failure With Hypoxia ([facility]) Acute Embolism And Thrombosis Of Left Femoral Vein ([facility]) Coma ([facility]) Past Surgical History: Procedure Laterality Date CYSTOSCOPY INSERTION STENT URETER Left 02/22/2023 Procedure: CYSTOSCOPY INSERTION STENT URETER; Surgeon: Ermias Young M.D., M.P.H.; [facility] EXCHANGE URETERAL STENT Left 04/05/2023 Procedure: EXCHANGE URETERAL STENT.; Surgeon: Bi Rivera M.D.; Location: [facility] OTHER SURGICAL HISTORY N/A Gastrocnemius recession (eg, Maren procedure).. RETROGRADE PYELOGRAM Left 04/05/2023 Procedure: RETROGRADE PYELOGRAM; Surgeon: Bi Rivera M.D.; Location: [facility] S[facility]US [facility]GERY 1987 URETEROSCOPY WITH LASER LITHOTRIPSY Left 04/05/2023 Procedure: URETEROSCOPY WITH LASER LITHOTRIPSY.; Surgeon: Bi Rivera M.D.; Location: [facility] History of Present Illness: Pt presenting with severe encephalopathy and hypoxemic and hypercapnic respiratory failure requiring mechanical ventilation Prior Function/Occupational Profile Lives With: Family, Parent(s) Receives Help From: Family ADL Assistance: Required assistance IADL/Homemaking Assistance: Required assistance Driving: Does not drive Prior Mobility/Functional Transfers Level of [place]: Needs assistance Gait Devices/Wheelchair Used: Manual wheelchair Home Equipment Wheelchair : Manual Home Living Type of Home: House Home Layout: Able to live on main level with bedroom/bathroom Home Access: Ramped entrance Family/Caregiver Present: Yes Patient/Caregiver Goals: none stated Patient Comments: Pt found semi-reclined in bed. Pt intermittently opening eyes but no other displays of alertness noted. RN and family agreeable to PT/OT session. Precautions Other Precautions: aspiration, severe cognitive deficits (cognition of 18 mo per family), orthostatic hypotension OBJECTIVE Co-evaluation and treatment with OT this session. The patient benefitted from having two skilled therapists present in order to optimize mobility progression and safety with mobility. PT and OT addressed different goals of mobility within treatment session. Vitals taken during session: Pulse rate: 101 bpm, Blood pressure: 104-56 mmHg, MAP: 74, O2 saturation: 92%, O2 flow: Ventilator: Spontaneous , 30 FiO2, PEEP: 5, PS: 5, and Respiratory Rate: 16 Patient became hypotensive at edge of bed with MAPs dropping to high 40s; RN present. Cognition Attention: Impairments noted Initiation: Does not initiate Following Commands: Not following commands General ROM / Strength Screening ROM - Lower Extremity Screen: Addressed, no concerns noted ROM - Lower Extremity Screen Comments: passively Strength - Lower Extremity Screen: Impaired right & left Bed Mobility - Supine to Sit # of Assistants: 2 (+RN for vent management) Level of Assistance: Total assistance Device: Head of bed elevated Cuing: Verbal, Tactile Comments: verbal and tactile cues for sequencing Bed Mobility - Sit to Supine # of Assistants: 2 (+RN for vent management) Level of Assistance: Total assistance Device: None Cuing: Verbal, Tactile Comments: verbal and tactile cues for sequencing Therapeutic Functional Activity Position: Sitting Balance Demand: Static Tolerance-time (min): 2.5 Physical Assistance Required: Total assistance Cuing Required: Verbal, Tactile Cuing Comments: verbal and tactile cues for posture and midline orientation; pt requiring total assist for head control The following coordination of care occurred today: Co-treatment with: Occupational Therapy Patient's nurse was contacted and patient's status was discussed, Discussed patient's care with OT Inpatient AVS Complete - PT: No Patient was left in bed at end of session with call light in reach, all needs met and questions answered. Outcome Measures AM-PAC Inpatient Short Form: AM-PAC Basic Mobility (V.2) How much help from another person do you currently need???If the patient hasn't done an activity recently, how much help from another person do you think he/she would needif he/she tried? 1. Turning from your back to your side while in a flat bed without using bedrails?: Total 2. Moving from lying on your back to sitting on the side of a flat bed without using bedrails?: Total 3. Moving to and from a bed to a chair (including a wheelchair)?: Total 4. Standing up from a chair using your arms (e.g., wheelchair, or bedside chair)?: Total 5. To walk in hospital room?: Total 6. Climbing 3-5 steps with a railing?: Total AM-PAC Basic Mobility (V.2) Raw Score: 6 AM-PAC Basic Mobility (V.2) Standardized Score: 16.59 Interpretation: Clinicians answer the AM-[facility] Inpatient Short Form based on observed patient activity and/or clinical judgement (ie. patient can be scored without physically performing each activity) Based on scoring guidelines using the raw score value: Those going to home had an average score at or above 18 Those going to facility had an average score at or below 17 Assessment Discharge Therapy Needs - PT: Ongoing skilled physical therapy Skilled therapy can include physical therapy provided by home health, outpatient clinic, or a post-acute facility. The location of these services is determined by the patient's care team in partnership with patient/family. Level of Care Needed - PT: Assistance with transfers (Comment), Assistance with walking and moving around the home, Assistance with bed mobility, Cognitive assistance needed Barriers to Discharge Home: Current functional status, Fall risk Clinical Impression of today's session: Pt currently presenting below baseline. Pt demonstrating impairments in strength, endurance, balance, and cognition. Pt limited this session due to cognition and respiratory status. Pt largely total assistx2 for bed mobility. Pt would continue to benefit from skilled acute PT to address deficits. Rehab potential: Mr. Hilario has Fair potential to achieve established physical therapy goals within the time frame outlined below. Tiered PT Evaluation Codes: Comorbid Conditions: Cerebrovascular accident, Cognitive/memory disorder Personal Factors: Needs assistive device Examination elements: 3 Clinical Presentation: Unstable Clinical Decision Making: High complexity clinical decision making Functional Goals: PT Inpatient Goals PT Goal #1: Pt will sit for 10 minutes with vitals WNLs to increase functional independence PT Goal #2: Educate nursing and family on functional dangles to facilitate improved functional mobility Plan Patient unable to verbalize agreement to the plan of care and goals due to mental status or level of consciousness, but family members present to consult and agree with the plan as stated above. Treatment Plan: Plan: Plan of care initiated PT Frequency: 5 times per week PT Inpatient Duration : Until goals are met or hospital discharge Requires Inpatient Follow-Up: Yes PT - Next Inpatient Appointment: 03/09/24 PT Plan Comments: progress bed mobility and sitting tolerance as pt able; Nursing and family transfer training as appropriate Treatment interventions may include: Treatment/Interventions: Therapeutic exercise, Therapeutic functional activity, Neuromuscular re-education, Gait training, Self-care/home management Billing: Time Spent with Patient Evaluations PT Eval - High Complexity: 10 min Therapeutic Interventions Therapeutic Activity (min): 13 min Time Tracking Total Timed Units (min): 13 min Total Treatment Time (min): 23 min Amena Winn P.T., D.P.T. * Jose Delatorre M.D. - 03/08/2024 11:32 AM CDTAssociated Order(s): IP CONSULT TO NEUROLOGY Say Bowen Yanelis 03/08/24 11:32 AM CDT Hospital length of stay: 9 Neuro ICU Progress Subjective: This morning the patient is slightly more awake, with spontaneous eye opening. Objective: Blood pressure (!) 93/49, pulse 100, temperature 37.2 ??C, temperature source Axillary, resp. rate 14, height 156 cm, weight 70.1 kg, SpO2 94%. Examination: Eyes opened intermittently. Raise eyebrows to light touch of his head. Pupils are 4-5 mm, reactive. Fixated briefly and tracked to the right in 1 occasion. His withdrawal to noxious stimuli is brisker today. 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 Today he showed mild signs of awareness for the first time. His slow, but persistent improvement is a reason for not modifying his antiseizure medications. I discussed the multifactorial nature of his decreased mental status with patient's family at bedside. I also disclosed that it may take significant time to recover from this insult, and the recoverymay not be complete. Patient's family understand. I recommend to continue clinical observation. We will follow sign off. Page [phone] with additional questions. Total time: 35 minutes * Rosalina Wagner M.S., O.T. - 03/08/2024 11:15 AM CDT Occupational Therapy Acute Hospital Inpatient Evaluation/Treatment SUBJECTIVE Patient's Name: Say Hilario Referring/Attending Provider: Rufus Ba M.B.B.S. Reason for Referral: Occupational Therapy Evaluation and Treatment PERTINENT MEDICAL / SURGICAL HISTORY: Say Hilario has a past medical history of Apnea Sleep Obstructive, Chronic Kidney Disease NOS, Complication Anesthesia Initial, Dermatitis (2016), Dysphagia, Gastroesophageal Reflux Disease NOS (1984), Intellectual Disability Profound (12/01/2020), Leukemia (1980), Pneumonia, Post Operative Nausea/Vomiting, Seizure (HCC), Sepsis (HCC) (02/22/2023), Sickness Motion Personal History, and Stroke ([facility]). Say Hilario has a past surgical history that includes Other Surgical History (N/A); CYSTOSCOPY INSERTION STENT URETER (Left, 02/22/2023); Sinus surgery (1987); Ureteroscopy with Laser Lithotripsy (Left, 04/05/2023); Exchange Ureteral Stent (Left, 04/05/2023); and Retrograde Pyelogram (Left, 04/05/2023). History of Present Illness: Say Hilario is a 44 y.o. male who was admitted to [facility] in [place] on 02/28/2024 for Acute Respiratory Failure With Hypoxia (HCC) [J96.01]. Relevant Medical History: Persistently somnolent with history of complex seizure disorder with regular breakthrough seizures. Precautions Other Precautions: aspiration, severe cognitive deficits (cognition of 18 mo per family), orthostatic hypotension Falls screen: Fall in the last 12 months: No per family Pain Assessment: Critical Care Pain Observation Tool: Facial Expression: Relaxed=0 Body Movements: Absence of movements or normal position=0 Compliance with the Ventilator (Intubated Patients): Coughing but tolerating=1 Muscle Tension: Relaxed=0 Critical-Care Pain Observation Score: 1 Subjective Comments: Nonverbal secondary to mechanical ventilation. Family provided consent for OT/PT co-evaluation and treatment session to increase arousal. Team Communication: The patient's status was discussed and coordination of care occurred with six pack loader operator/Caregiver Present: Mom, Dad, Grandmother, Aunt Co-treat with physical therapy as patient benefits from 2 skilled therapists present in order to optimize safety and progression of mobility and self-care skills. Home Living and Equipment: Lives with: Family Receives help from: Family and Home Health Type of Home: House Home Layout: One Level Home Access: Level entry Bathroom Accessibility: Shower: Walk-in Shower Bathroom Equipment: Electric lift Toilet: Comfort Toilet Assistive Device Owned: Manual wheelchair (tilt in space) Other DME Owned: Mechanical lift Prior Level of Function and Mobility: Basic Activities of Daily Living: Required Assistance Instrumental Activities of Daily Living: Required Assistance Functional Mobility: Required Assistance, Electric wheelchair, Duc Patient/Caregiver Goals: Discharge home per family. OBJECTIVE Vital Signs: Vitals taken during session: Pulse rate: 101 bpm, Blood pressure: 104-56 mmHg, MAP: 74, O2 saturation: 92%, O2 flow: Ventilator: Spontaneous , 30 FiO2, PEEP: 5, PS: 5, and Respiratory Rate: 16 Patient became hypotensive at edge of bed with MAPs dropping to high 40s; RN present. Evaluation Assessment: STRENGTH: Generalized weakness RANGE OF MOTION: Generalized weakness BALANCE: Static Sitting: Poor (Requires assist to maintain balance) Dynamic Sitting: Poor (Requires assist to maintain balance) Static Standing: Unable to perform Dynamic Standing: Unable to perform ACTIVITY TOLERANCE: Endurance: Tolerates less than 10 minutes of activity Outcome Measures: AM-PAC Inpatient Short Form: Putting on and taking off regular lower body clothing?: Total Putting on and taking off regular upper body clothing?: Total Taking care of personal grooming such as brushing teeth?: Total Bathing (including washing, rinsing, drying)?: Total Toileting, which includes using toilet, bedpan, or urinal?: Total Eating meals?: Total Daily Activities Raw Score (max 24): 6 Daily Activities Standardized Score: 17.07 Interpretation: Based on scoring guidelines using the raw score value: Those going to home had an average score at or above 18 Those going to facility had an average score at or below 17 Clinicians answer the -[facility] Inpatient Short Form based on observed patient activity and/or clinical judgment (ie. patient can be scored without physically performing each activity) Cognition: Cognitive impairments at baseline Cognitive Intervention: Engaged patient in reality orientation, Engaged patient in multimodal stimulation and functional conversation to stimulate arousal and orientation Therapeutic Interventions: ACTIVITIES OF DAILY LIVING: GROOMING - Assist Level: Total Assist - Patient Location: Supine - Activity: Brushing teeth - oral suction brush - Therapist Delivery: assessed, instructed, assisted, facilitated - Assist/Cues: verbal, tactile, visual, and manual for hand over hand guiding techniques, assistance for thoroughness, initiation - No active participation noted BED MOBILITY: SIT<>SUPINE - Assist Level: Total Assist, x 2, + assist for line management - Device: head of bed elevated, sheet - Therapist Delivery: assessed, instructed, assisted, facilitated - Assist/Cues: verbal, tactile, visual, and manual for technique, trunk support, lower extremity support, step by step instructions, initiation THERAPEUTIC ACTIVITY: - Position: Sitting - Assist Level: Total Assist - Balance Demand: static and within base of support - Tolerance: 2.5 minutes - Assist/Cues for: midline positioning, posture, head control , trunk support - Activity: Facilitated ADL, Cognitive stimulation; unable to engage in functional activity due to hypotension Education/Training Provided: Provided education on role of occupational therapy in the acute setting. Collaborated with patient and/or family on goals and plan of care. Delirium: - Patient/Family provided education on delirium prevention strategies including sleep hygiene and regular sleep-wake cycle, getting out of bed during the day into the chair if indicated, participating in familiar activities to stay stimulated throughout the day, frequent re-orientation, and using hearing aids, glasses, and/or dentures if appropriate. Patient was left in bed at end of session with call light in reach, all needs met and questions answered. Assessment Discharge Therapy Needs - OT: No further skilled therapy If skilled therapy is recommended, skilled therapy can include occupational therapy provided in home health, outpatient or post-acute facility. The location of these services is determined by patient's care team in partnership with patient/family. Barriers to Discharge Home: Current functional status Level of Care Needed - OT: Cognitive assistance needed, Physical assistance needed (Assist with self cares and mechanical lift for transfers) Clinical Impression: Currently, patient presents with impairments including debility and cognitive deficits resulting infunctional deficits including impaired functional mobility and decreased independence with self care tasks. Prior to current hospitalization, patient was living at home with family and required assistance for all self cares and uses a duc for transfers. Facilitated therapy session while patient was mechanically ventilated via ET tube with no distress noted, however patient was hypotensive with maps dropping to high 40s when edge of bed. He required assist at trunk and to hold head up, but appeared more awake when upright. Facilitated multimodal stimulation with patient only responding to deep pain stimulation. Provided education about stimulating activities family can complete. The patient will benefit from ongoing occupational therapy services while hospitalized in order to improve engagement and independence in meaningful occupations. Activity Recommendations: - Delirium prevention - Chair mode // Duc to personal power chair 2-3x day - ROM upper and lower extremities 3x/day - Active participation in ADLs (oral cares, face washing, etc) - Edge of bed sitting with PT/OT Current Assist: x 2 bed mobility Plan OT Plan Comments: EOB dangle to facilitate arousal, collaborate with family with stimulating activities, consider reducing frequency once family/ nursing can carry over plan Functional Goals: OT Goal #1: Patient will play with tabletop toys with modified independence to improve quality of life by hospital discharge. OT Goal #1 Status: Slowly progressing Progress: Slow progress, cognitive deficits Rehab potential: Mr. Hilario has fair potential to achieve established occupational therapy goals within the time frame outlined below. OT Frequency: OT Amount: 1 visit per day OT Frequency: 5 times per week OT Inpatient Duration : Until goals are met or hospital discharge Requires Inpatient OT Follow-Up: Yes OT - Next Inpatient Appointment: 03/09/24 Plan: Plan of care initiated Treatment interventions may include: Treatment Interventions: Therapeutic functional activity Occupational Therapy Attestation Statement: Patient unable to verbalize agreement to the plan of care and goals due to mental status or level of consciousness, but family members present to consult and agree with the plan as stated above. Billing: Tiered OT Evaluation Codes: Comorbid Conditions: Cerebrovascular accident, Cognitive/memory disorder Personal Factors: Needs assistive device Occupational Profile and History review: Brief Performance Deficits: 1 - 3 performance deficits Evaluation Complexity: Low Time Spent with Patient Evaluations OT Eval - Low Complexity : 10 min Therapeutic Interventions Home Management Training (min): 13 min Time Tracking Total Timed Units (min): 13 min Total Treatment Time (min): 23 min Zunilda Wagner M.S., O.T. * Luci Cohen M.D., Ph.D. - 03/05/2024 11:55 AM CDT SUBJECTIVE REASON FOR CONSULT Followup visit. HISTORY OF PRESENT ILLNESS Patient with an acute hypoxic respiratory failure as a result of aspiration pneumonia, known severeencephalopathy associated with severe cognitive delay and Macomb-Gastaut syndrome with recurrent daily seizures. We now hospital day 7, and he has not woken up since sedation has been discontinued. He had a CT scan of the brain done that showed no abnormalities. No vascular studies were performed. An EEG was deferred because his seizures are clinically recognizable. The primary service has not seen any suspicious seizures today. There is ongoing concerns why he is not waking up. OBJECTIVE PHYSICAL EXAMINATION Neuro: He has a FOUR score E0, M0, B4, R1. His pupils are midposition, but responding. He has intact oculocephalics. No clear skew deviation. No motor response to pain. No eye deviation or facial or extremity twitching or myoclonus. ASSESSMENT / PLAN His marked decreased level of consciousness remains unexplained. It is unlikely he is in nonconvulsive status because clinical seizures are typically clinically recognizable but would obtain a spot EEG I would also opt for an MRI scan of the brain to see if he has a brainstem stroke or severe anoxic -ischemic brain injury that could explain his level of consciousness. Also his antiepileptic medication levels came back markedly elevated throughout, but these are not trough levels and they have to be obtained before we are considering adjusting the medication. His level of consciousness could be decreased if these levels, indeed, are toxic. We will be reluctant to change the medication considering his prior tendency to transition to status epilepticus. I should note that his baseline is quite poor with minimal communication, but this elo major change according to his parents who wish to pursue reasons for his coma We will follow. DIAGNOSIS #1 Coma #2 Hypoxic respiratory failure associated with aspiration pneumonia #3 Ayaan-Gastaut syndrome with recurrent seizures #4 Baseline severe cognitive delay Luci Cohen M.D., Ph.D. CT CT Job ID: [id number] * Sis Swain M.S., SHAYY, ADELA - 03/04/2024 9:33 AM CDTAssociated Order(s): IP CONSULT TO DIETITIAN DESCRIPTION Consult ASSESSMENT Nutrition consulted for positive MST >2. Patient already being followed by SHAYY - will sign off consult at this time. Weight since admission: Height: 156 cm Admission Weight: 69.4 kg (02/28/2024) Current Weight: 69.5 kg BMI (Calculated): 28.6 kg/m?? Weight change since admission: 0.1 kg Net IO Since Admission: 696.14 mL [03/04/24 0933] ASPEN Criteria Malnutrition Status: Malnutrition criteria not met PLAN - Continue current nutrition orders Clinical Nutrition will continue to follow. For questions about patient's nutritional care please contact pager [phone] on weekdays 07:30-16:00 or [phone] on weekends/holidays ([facility]). * Fela Mann RDN, ADELA - 03/03/2024 9:38 AM CDTAssociated Order(s): IP [...] 1.4 GI Function: Last BM Date: 03/02/24, [place] Stool Chart: Type 7: Watery, no solid pieces, Passing Flatus: Yes. Total of 8 BMs noted yesterday (03/02) that were all [place] stool type 7. Noted to havereceived lactulose yesterday Estimated Needs: Calories: 5872-6626 calories/day Method to Estimate Energy Needs: kcal/kg [...] about patient's nutritional care please contact pager [phone] on weekdays 07:30-16:00 or [phone] on weekends/holidays ([facility]). * Fritz Arteaga M.T.S. - 03/02/2024 12:50 PM CDTAssociated Order(s): IP CONSULT TO REFINER OPERATOR CERTIFIED PROFESSIONAL ERGONOMIST [facility] Spiritual Care Consult Note Patient: Say Hilario Age:44 y.o. Location: [id number] Reason(s) for encounter: Spiritual Care contact to introduce spiritual care service and assess for potential spiritual care needs. Responded to Spiritual Care Consult. Spiritual Care contact for methodist rites/sacramental encounter. Summary: I was able to meet with Say Hilario and his family. Say was unable to engage and his mom shared that he had pneumonia and much more better than before. Spiritual Assessment Jewish Identification / Spiritual Practices: Say is a Protestant. The sacrament of Anointing of the sick [...] current medical condition and life stage. Facilitated methodist/spiritual practices (prayer, blessing, sacred texts, methodist item) with theaim to reinforce patient's spiritual [...] requested. Chaplains can be contacted by paging [phone] ([place]) or [phone] (Jewish). * Fela Mann RDN, LD - 03/01/2024 8:23 AM CDTAssociated Order(s): IP CONSULT TO DIETITIAN; IP CONSULT TO DIETITIAN Clinical Nutrition: Initial Assessment Clinical Nutrition was requested to evaluate patient for tube feeding order consult SUBJECTIVE Mr. Hilario is a 44 y.o. male admitted for hypoxic and hypercapnic respiratory failure in the setting of community-acquired pneumonia. PMH: Macomb-Gastaut syndrome, developmental delay, ALL treated with chemoradiation, [...] been minimal to none. Patient does use [facility] as DME for tube feed supplies. He may require updated orders for increased cartons per day if intake remains minimal to none. Food Allergies: NKFA Chewing/Swallowing Issues: VFSS with OUTDOOR LANDSCAPE ARCHITECT last noted to be completed on 12/30/23 and recommended regular textured foods with thin liquids for pleasure. Nutrition education/counseling: Patient is followed by [facility] with last phone call on 12/30/23 OBJECTIVE Current nutrition orders: Dietary Orders (From admission, onward) Start Ordered 02/29/241832 Tube feeding without oral diet -Peptamen 1.5 (RTH); Feeding route: PEG/Gastrostomy; Feed options: Continuous; Starting rate (ml/hr): 20 mL/hr; Rate advancement (ml/hrs): 10 mL/hr every 12 hours; Continuous goal rate (ml/hr): 40 mL/hr; Daily goal v... ([facility] NTR PROVIDER TO INITIATE, DIETITIAN TO MANAGE TUBE FEEDS) Continuous Question Answer Comment Tube Feeding Formula: Peptamen 1.5 (RTH) Feeding route: PEG/Gastrostomy Feed options: Continuous Starting rate (ml/hr): 20 mL/hr Rate advancement (ml/hrs): 10 mL/hr every 12 hours Continuous goal rate (ml/hr): 40 mL/hr Daily goal volume (mL): 960 02/29/24 1833 02/29/24 1805 No oral nutrition, tube feeding allowed ([facility] NTR PROVIDER TO INITIATE, DIETITIAN TOMANAGE TUBE [...] 68 kg Estimated Needs: Total Calorie Needs: 0307-7899 calories/day Method to Estimate Energy Needs: kcal/kg (22-25 kcal/kg) Weight Used for Equation Calculations: 66.9 kg Total Protein Needs: 80 - 100 grams/day (Method to Estimate Protein Needs (g/kg): 1.2 - 1.5 gm/kg) Weight Used to Calculate Protein Needs (Kg): 66.9 kg Nutrition Diagnosis: Inadequate oral intake related to dysphagia as evidenced by detention dependence on supplemental enteral feeds to meet [...] about patient's nutritional care please contact pager [phone] on weekdays 07:30-16:00 or [phone] on weekends/holidays ([facility]). * Malini Lamb L.G.S.W., M.S.W. - 02/29/2024 1:34 PM CDTAssociated Order(s): IP CONSULT TO CARE MANAGEMENT SUBJECTIVE Social Work met with the family to address the care management consult for reconnection of both HHCand oxygen services. The patient was lying in bed sleeping, parents Shelby and Andrés were bedside. Social Work introduced self and explained both the role of an inpatient neonatal social worker and purpose of the visit. Both Shelby and Andrés acknowledged understanding and were agreeable to meet. Shelby confirmed that patient's oxygen supplies are provided by [facility], HHC services are provided by [facility], as well as nutrition supplies are provided by [facility]. She also shared that the patient is on a [facility] waiver through [facility]. They are being provided minimal services through [facility] waiver at this time. The patient's parents inquired if this board writer had other resources as they would like more in home supports. They gave neonatal social worker permission to contact [facility] and talkwith the [facility] neonatal social worker to get information on what services the [facility] waiver covers. OBJECTIVE Say Hilario is a 44 year old male who resides at home with his parents. The patient is in need of full cares. His mother, Shelby, informed that when Say is feeling better, his baseline abilities are that of an 18 month old. The patient's parents are his full-time caregivers. The patient is on a CAC waiver through [facility], his parent's/guardians gave this neonatal social worker permission to contact [facility] to inquire about available services under the [...] discharged back to his parent's home in [place], [place] - The patient's parents will provide transportation at time of discharge. - Social Work will continue to follow for supportive needs and discharge planning needs. Emma Kim, M.S.W. 02/29/24 documented in this encounter Nursing Notes * Polly Fleming L.R.T. - 03/14/2024 1:34 AM CDT Patient is a 44 y.o. male Height: 156 cm admitted on 02/28/2024 Principal Problem: Acute Respiratory [...] Stroke (HCC) brain stem stroke Shift Summary: 1930: Patient remains intubated with a #7.5 ETT at 22 cm at the teeth and mechanically ventilated on SIMV 15, Vt 330 mL, PEEP 15, pressure support 14 and FiO2 30%. 2300: Patient assessed and ventilator check complete. 0300: Patient assessed and ventilator check complete. Airway: ETT Standard ETT (Active) Placement Date/Time: 03/01/24 (c) 1885 Mask Ventilation: Easy mask Technique: Video laryngoscopy ETT Type: Standard ETT Tube Size: 7.5 mm Cuffed: Yes Location: Oral Airway secured at (Initial measurement) : 22 Grade View: Grade 2A Airway Ins... ETT Standard ETT-Currently secured at (cm): 22 ETT Standard ETT-Measured from: Teeth Oxygen Therapy: $Delivery Method: Ventilator FiO2 (%): 30 % Ventilation: Plateau (Pause) Airway Pressure: 29 cm H2O FiO2 (%): [26 %-30 %] 30 % S RR: [14 Breaths/min-15 Breaths/min] 15 Breaths/min S VT: [330 mL] 330 mL PEEP (cmH2O): [10 cm H20-15 cm H20] 15 cm H20 SC SUP: [14 cm H20-15 cm H20] 14 cm H20 Mean Airway Pressure: [14 cm H2O-19 cm H2O] 18 cm H2O Ventilator Mode: SIMV PEEP (cmH2O): 15 cm H20 FiO2 (%): 30 % Peak Airway Pressure: 28 cm H2O Compliance (mL/cm H2O): 25.4 mL/cm H2O Driving Pressure: 13.6 cm H2O Hemodynamic monitoring: Arterial Line 03/10/24 Left Radial (Active) Placement Date/Time: 03/10/24 (c) 3399 Procedural Pause Completed: Yes Catheter Time Out Checklist Completed: Yes Hand Hygiene Performed Prior to Insertion: Yes Site Prep: Chlorhexidine (Preferred) Sterile Barriers Used : Cap;Gloves;Gown;Large d... Recent ABG: Recent Labs 03/13/24 1337 PO2 ART 145 H PCO2 ART 41 PH ART 7.38 HCO3 ART 24 BASE EXC ART 0 Plan of Care: Continue to monitor respiratory status while in the ICU, maintain airway patency, and provide mechanical ventilation. RT to maintain, manage and wean ventilation and oxygenation per protocols and ABGvalues. Suction as needed. Pat Gonzales 03/14/24 1:34 AM * Savannah Pelayo RMayNMay - 03/13/2024 5:09 PM CDT Problem: PAIN - ADULT Goal: PT VERBALIZES/DEMONSTRATES ADEQUATE COMFORT LEVEL OR BASELINE Outcome: Progressing Problem: KNOWLEDGE DEFICIT Goal: Patient/family/caregiver demonstrates understanding of disease process, treatment plan, medications, and discharge instructions Outcome: Progressing Problem: SAFETY ADULT Goal: Maintain a safe environment Outcome: Progressing Shift Goals: Clinical Goals for the Shift: Patient will remain off sedation throughout shift Identify possible barriers to meeting goals/advancing plan of care: ongoing seizures, diminished arousability, and assumed pain End of Shift Summary: Patient remained safe with 1:1 assignment. Parents at bedside and appropriateall day. Patient had approximately 5 seizures since 0700. His seizures are typically fluttering/spasming of the eyelids, and occasionally tremors in his extremities as well. Additional anti-seizure medications given. Patient is now a RASS of -4 with reduced arousability after additional medications. This morning patient would open eyes spontaneously but would not track/make eye contact, and wouldmove all four extremities to painful stimulus. He loves frogs, and has part of a cherished stuffed animal from childhood named Froggy, please do not lose. Patient remained calm throughout shift. * Annabella Woodall L.R.T. - 03/13/2024 4:21 PM CDT Patient is a 44 y.o. male admitted on 02/28/2024 Recent Surgery: Principal Problem: Acute Respiratory Failure With Hypoxia [...] Significant Events During Current Stay: Shift Summary: Pt trialed on SPONT this AM. Patient then switched to SIMV 30%, R 15, Vt 330, PEEP 15, PS 14. No respiratory concerns at this time. Plan of Care: Continue to monitor respiratory status while in the ICU, maintain airway patency, and provide mechanical ventilation, RT to maintain, manage and wean ventilation and oxygenation per protocols and ABGvalues, and ETT repositioned Q4 hours Airway: ETT Standard ETT (Active) Placement Date/Time: 03/01/24 (c) 9517 Mask Ventilation: Easy mask Technique: Video laryngoscopy ETT Type: Standard ETT Tube Size: 7.5 mm Cuffed: Yes Location: Oral Airway secured at (Initial measurement) : 22 Grade View: Grade 2A Airway Ins... ETT Standard ETT-Currently secured at (cm): 22 ETT Standard ETT-Measured from: Teeth Ventilation: Ventilator Mode: SIMV Respiratory Rate Settin Breaths/min PEEP (cmH2O): 15 cm H20 FiO2 (%): 30 % Peak Airway Pressure: 31 cm H2O Plateau (Pause) Airway Pressure: 29 cm H2O Compliance (mL/cm H2O): 23.2 mL/cm H2O Driving Pressure: 13.9 cm H2O Oxygen Therapy: $Delivery Method: Ventilator FiO2 (%): 30 % Flow Rate (L/min): 8 L/min Hemodynamic monitoring: Arterial Line 03/10/24 Left Radial (Active) Placement Date/Time: 03/10/24 (c) 1430 Procedural Pause Completed: Yes Catheter Time Out Checklist Completed: Yes Hand Hygiene Performed Prior to Insertion: Yes Site Prep: Chlorhexidine (Preferred) Sterile Barriers Used : Cap;Gloves;Gown;Large d... Recent ABG: Recent Labs 03/13/24 1337 PO2 ART 145 H PCO2 ART 41 PH ART 7.38 HCO3 ART 24 BASE EXC ART 0 Pat Wetzel 03/13/24 4:21 PM CDT * Leah Jacome RMayN. - 03/13/2024 9:11 AM CDT Feeding Tube Site Care Indication for Consult Tube site check Skin breakdown Tube Type and size: CALISTA Low Profile Transgastric jejunal (Bulldozer Operator Federated Sample ([employer])) Size: 22 Georgian, 3.5 cm length Connector Type: Small bore (ENFit) Date of tube replacement: 12/28 Replaced by: GI Skin integrity at tube site: The skin is less red today compared to when I saw it last Wednesday. The open area from the 3 to 6 o'clock area also looks improved and the tissue looks like it is healing. The wound property field inspector saw the patient last Wednesday and has left site care recommendations. Pain at tube site: Patient is intubate. No physical signs of pain were noted as I assessed the site. Disc position: The CALISTA tube is still hanging slightly loose away from his abdominal wall but this is less than when I saw him last Wednesday. Tube Rotation: Tube was not rotated due to tube type. This tube is not to be rotated. Tube insertion site was assessed and there was a small amount of serosanguineous drainage at the site. Mepilex Up was present under the skin disc. This was removed and left open to air. His RN statedshe planned to do the skin care around the tube site so I did not clean around it on this date. Both ports of thi tube were capped when I saw him. No hypergranulation tissue noted. Yeast not present. Recommendations: Site care to be completed per Wound patternmaker bench recommendations. Do not rotate tube. * Eris Phillips, R.R.T., L.R.T. - 03/13/2024 5:52 AM CDT Patient is a 44 y.o. male admitted on 02/28/2024 Recent Surgery: Principal Problem: Acute Respiratory Failure With Hypoxia [...] Significant Events During Current Stay: Shift Summary: Pt seen for routine ventilator checks without concern. Plan of Care: Continue to monitor respiratory status while in the ICU, maintain airway patency, and provide mechanical ventilation, RT to maintain, manage and wean ventilation and oxygenation per protocols and ABGvalues, and ETT repositioned Q4 hours Airway: ETT Standard ETT (Active) Placement Date/Time: 03/01/24 c) 0232 Mask Ventilation: Easy mask Technique: Video laryngoscopy ETT Type: Standard ETT Tube Size: 7.5 mm Cuffed: Yes Location: Oral Airway secured at (Initial measurement) : 22 Grade View: Grade 2A Airway Ins... ETT Standard ETT-Currently secured at (cm): 22 ETT Standard ETT-Measured from: Teeth Ventilation: Ventilator Mode: (S)CMV Respiratory Rate Settin Breaths/min PEEP (cmH2O): 12 cm H20 FiO2 (%): 26 % Peak Airway Pressure: 27 cm H2O Plateau (Pause) Airway Pressure: 28 cm H2O Compliance (mL/cm H2O): 20.5 mL/cm H2O Driving Pressure: 15 cm H2O Oxygen Therapy: $Delivery Method: Ventilator FiO2 (%): 26 % Flow Rate (L/min): 8 L/min Hemodynamic monitoring: Arterial Line 03/10/24 Left Radial (Active) Placement Date/Time: 03/10/24 (c) 1430 Procedural Pause Completed: Yes Catheter Time Out Checklist Completed: Yes Hand Hygiene Performed Prior to Insertion: Yes Site Prep: Chlorhexidine (Preferred) Sterile Barriers Used : Cap;Gloves;Gown;Large d... Recent ABG: Recent Labs 03/12/24 1159 PO2 ART 139 H PCO2 ART 44 PH ART 7.37 HCO3 ART 25 BASE EXC ART 0 Eris Phillips R.R.T., L.R.T. 03/13/24 5:52 AM CDT * Amilcar Del Valle L.R.T., [facility] - 03/12/2024 3:59 PM CDT Patient is a 44 y.o. male admitted on 02/28/2024 Recent Surgery: Principal Problem: Acute Respiratory Failure With Hypoxia [...] Significant Events During Current Stay: Shift Summary: Plan of Care: Continue to monitor respiratory status while in the ICU, maintain airway patency, and provide mechanical ventilation, RT to maintain, manage and wean ventilation and oxygenation per protocols and ABGvalues, Administer respiratory medications as ordered, Manage hemodynamic lines per protocol, Skin clean and intact with no areas of redness on the face, lips, toungue, neck or ears, and ETT repositioned Q4 hours Airway: ETT Standard ETT (Active) Placement Date/Time: 03/01/24 (c) 4776 Mask Ventilation: Easy mask Technique: Video laryngoscopy ETT Type: Standard ETT Tube Size: 7.5 mm Cuffed: Yes Location: Oral Airway secured at (Initial measurement) : 22 Grade View: Grade 2A Airway Ins... ETT Standard ETT-Currently secured at (cm): 22 ETT Standard ETT-Measured from: Teeth Ventilation: Ventilator Mode: (S)CMV Respiratory Rate Settin Breaths/min PEEP (cmH2O): 10 cm H20 FiO2 (%): 26 % Peak Airway Pressure: 27 cm H2O Plateau (Pause) Airway Pressure: 25 cm H2O Compliance (mL/cm H2O): 21.5 mL/cm H2O Driving Pressure: 14.5 cm H2O Patricia Therapy: Non-Invasive Support: Oxygen Therapy: $Delivery Method: Ventilator FiO2 (%): 26 % Flow Rate (L/min): 8 L/min Hemodynamic monitoring: Arterial Line 03/10/24 Left Radial (Active) Placement Date/Time: 03/10/24 (c) 1430 Procedural Pause Completed: Yes Catheter Time Out Checklist Completed: Yes Hand Hygiene Performed Prior to Insertion: Yes Site Prep: Chlorhexidine (Preferred) Sterile Barriers Used : Cap;Gloves;Gown;Large d... Recent ABG: Recent Labs 03/12/24 1159 PO2 ART 139 H PCO2 ART 44 PH ART 7.37 HCO3 ART 25 BASE EXC ART 0 Pat Newby, CENTRAL OFFICE MAINTAINER-ACCS 03/12/24 3:59 PM CDT * Eris Phillips R.R.T., L.R.T. - 03/12/2024 4:11 AM CDT Patient is a 44 y.o. male admitted on 02/28/2024 Recent Surgery: Principal Problem: Acute Respiratory Failure With Hypoxia (HCC) PMH: Past Medical History: Diagnosis Date Apnea Sleep Obstructive Chronic Kidney Disease NOS Complication Anesthesia Initial Dermatitis 2017 Dysphagia Gastroesophageal Reflux Disease NOS 1985 Intellectual Disability Profound 12/01/2020 Leukemia 1981 Pneumonia Post Operative Nausea/Vomiting Seizure (HCC) Lennoy Guustaut Syndrome Sepsis (HCC) 02/22/2023 Sickness Motion Personal History Stroke ([facility]) brain stem stroke Significant Events During Current Stay: Shift Summary: Pt seen for routine ventilator checks. Pt FiO2 weaned from 30% to 26% per ABG. Plan of Care: Continue to monitor respiratory status while in the ICU, maintain airway patency, and provide mechanical ventilation, RT to maintain, manage and wean ventilation and oxygenation per protocols and ABGvalues, and ETT repositioned Q4 hours Airway: ETT Standard ETT (Active) Placement Date/Time: 03/01/24 (c) 0992 Mask Ventilation: Easy mask Technique: Video laryngoscopy ETT Type: Standard ETT Tube Size: 7.5 mm Cuffed: Yes Location: Oral Airway secured at (Initial measurement) : 22 Grade View: Grade 2A Airway Ins... ETT Standard ETT-Currently secured at (cm): 22 ETT Standard ETT-Measured from: Teeth Ventilation: Ventilator Mode: (S)CMV Respiratory Rate Settin Breaths/min PEEP (cmH2O): 10 cm H20 FiO2 (%): 26 % Peak Airway Pressure: 26 cm H2O Plateau (Pause) Airway Pressure: 24 cm H2O Compliance (mL/cm H2O): 25.5 mL/cm H2O Driving Pressure: 13.9 cm H2O Oxygen Therapy: $Delivery Method: Ventilator FiO2 (%): 26 % Flow Rate (L/min): 8 L/min Hemodynamic monitoring: Arterial Line 03/10/24 Left Radial (Active) Placement Date/Time: 03/10/24 (c) 1430 Procedural Pause Completed: Yes Catheter Time Out Checklist Completed: Yes Hand Hygiene Performed Prior to Insertion: Yes Site Prep: Chlorhexidine (Preferred) Sterile Barriers Used : Cap;Gloves;Gown;Large d... Recent ABG: Recent Labs 03/12/24 0245 PO2 ART 79 L PCO2 ART 42 PH ART 7.38 HCO3 ART 25 BASE EXC ART 0 Eris Weirich, R.R.T., TezRBarbara 03/12/24 4:11 AM CDT * Beatriz Oliveira R.R.T. - 03/11/2024 2:35 AM CDT Patient is a 44 y.o. male admitted on 02/28/2024 Shift Summary: Patient remains on S CMV RR 15 TV 330 +10 30%. Vent checks completed. Plan of Care: Patient remains intubated with 7.5 ETT 22 cm @ teeth and mechanically ventilated. Continue to monitor respiratory status while in the ICU, maintain ETT depth and patency, and provide mechanical ventilation. RT to manage and wean vent per ICU protocol and ABG values. Manage hemodynamicline. Provide supplemental oxygen to maintain adequate saturations. Suction as needed. Principal Problem Acute Respiratory Failure With Hypoxia (HCC) Chief Complaint: No chief complaint on file. Oxygen Therapy: $Delivery Method: Ventilator FiO2 (%): 30 % Flow Rate (L/min): 8 L/min Cough: Weak Smoking History: Social History Tobacco Use Smoking Status Never Smokeless Tobacco Never Airway: ETT Standard ETT (Active) Placement Date/Time: 03/01/24 (c) 4160 Mask Ventilation: Easy mask Technique: Video laryngoscopy ETT Type: Standard ETT Tube Size: 7.5 mm Cuffed: Yes Location: Oral Airway secured at (Initial measurement) : 22 Grade View: Grade 2A Airway Ins... Skin integrity checked: Skin clean and intact with no areas of redness on the face, lips, tongue, neck or ears. ETT repositioned Q4 hours. Vent mode: Ventilator Mode: (S)CMV FiO2 (%): [30 %-40 %] 30 % S RR: [15 Breaths/min-16 Breaths/min] 15 Breaths/min S VT: [330 mL] 330 mL PEEP (cmH2O): [5 cm H20-10 cm H20] 10 cm H20 Mean Airway Pressure: [14 cm H2O-18 cm H2O] 18 cm H2O Plateau pressure: Plateau (Pause) Airway Pressure: 26 cm H2O Compliance: Compliance (mL/cm H2O): 15.1 mL/cm H2O Hemodynamic monitoring Arterial Line 03/10/24 Left Radial (Active) Placement Date/Time: 03/10/24 (c) 1430 Procedural Pause Completed: Yes Catheter Time Out Checklist Completed: Yes Hand Hygiene Performed Prior to Insertion: Yes Site Prep: Chlorhexidine (Preferred) Sterile Barriers Used : Cap;Gloves;Gown;Large d... Recent ABG: Results from last 7 days Lab Units 03/10/24 1813 PH ART pH 7.43 PCO2 ART mm Hg 41 PO2 ART mm Hg 139* HCO3 ART mmol/L 27* BASE EXC ART mmol/L 3 Electronically signed by: Beatriz Oliveira RMayRMayTMay 03/11/24 2:36 AM CDT * Melvin Langston R.R.TMay, L.R.T. - 03/10/2024 5:37 PM CDT Patient is a 44 y.o. male admitted on 02/28/2024 Recent Surgery: Principal Problem: Acute Respiratory Failure With Hypoxia [...] Significant Events During Current Stay: Shift Summary: post op previously in MICU currently on CMV mode plan to wake up and change to spontaneous. Plan of Care: Continue to monitor respiratory status while in the ICU, maintain airway patency, and provide mechanical ventilation, RT to maintain, manage and wean ventilation and oxygenation per protocols and ABGvalues, Manage hemodynamic lines per protocol, and ETT repositioned Q4 hours Airway: ETT Standard ETT (Active) Placement Date/Time: 03/01/24 (c) 1875 Mask Ventilation: Easy mask Technique: Video laryngoscopy ETT Type: Standard ETT Tube Size: 7.5 mm Cuffed: Yes Location: Oral Airway secured at (Initial measurement) : 22 Grade View: Grade 2A Airway Ins... ETT Standard ETT-Currently secured at (cm): 22 ETT Standard ETT-Measured from: Teeth Ventilation: Ventilator Mode: ASV Respiratory Rate Settin Breaths/min PEEP (cmH2O): 10 cm H20 FiO2 (%): 40 % Peak Airway Pressure: 23 cm H2O Plateau (Pause) Airway Pressure: 26 cm H2O Compliance (mL/cm H2O): 15.1 mL/cm H2O Driving Pressure: 15 cm H2O Patricia Therapy: Non-Invasive Support: Oxygen Therapy: $Delivery Method: Ventilator FiO2 (%): 40 % Flow Rate (L/min): 8 L/min Hemodynamic monitoring: Arterial Line 03/10/24 Left Radial (Active) Placement Date/Time: 03/10/24 (c) 1430 Procedural Pause Completed: Yes Catheter Time Out Checklist Completed: Yes Hand Hygiene Performed Prior to Insertion: Yes Site Prep: Chlorhexidine (Preferred) Sterile Barriers Used : Cap;Gloves;Gown;Large d... Recent ABG: Recent Labs 03/10/24 1639 PO2 ART 90 PCO2 ART 44 PH ART 7.41 HCO3 ART 28 H BASE EXC ART 3 Melvin Langston R.R.T., L.R.T. 03/10/24 5:37 PM CDT * Leah Jacome, R.N. - 03/10/2024 10:47 AM CDT Feeding Tube Site Care Indication for Consult: Venting tube site check Skin breakdown Tube Type and size: CALISTA Low Profile Transgastric jejunal (Bulldozer Operator Federated Sample ([employer])) Size: 22 Georgian, 3.5 cm length Connector Type: Small bore (ENFit) Date of tube replacement: 12/28 Replaced by: GI Skin integrity at tube site: The skin around the site is moderately reddened and there is a open area at the 3 to 6 o'clock area approximately 1.5 cm in length that may be related to pressure from the disc of this tube. I have marked this area with a skin marking pen and his RN took pictures of thesite and they are uploaded into [employer]. She will requests the Wound patternmaker bench reevaluate this site for recommendations of cares of this site. Pain at tube site: Patient was intubated at the time of my assessment. No physical signs of pain were noted as I assessed the site. Disc position: The CALISTA tube is hanging loose away from his abdominal wall approximately 1 cm and his abdomen isdistended. When his abdomen returns to normal size and the tube is replaced it may need a shorter length tube. Tube Rotation: Tube was not rotated due to tube type. This tube is not to be rotated. Tube insertion site was assessed and there was a moderate amount of serosanguineous drainage at thesite. Mepilex Up was present under the skin disc. The site was cleaned with saline and was left open to air. Bleeding from the open area at the 3 to 6 o'clock area was noted as site care was completed. A securing device was placed to secure the extensions to his abdomen to avoid tension on the tubeinsertion site. Both ports were hooked to gravity drainage. No hypergranulation tissue noted. Yeast not present. Recommendations: Site care to be completed per Wound patternmaker bench recommendations. Secure extension tubing to abdomen with a tube murphy (Flexi-Trak or other) to avoid tension at theinsertion site. Do not rotate tube. * Lima Gardner RHarika. - 03/10/2024 6:12 AM CDT Problem: POTENTIAL OR ACTUAL PRESSURE INJURY-ADULT Goal: Manage sensory Perception deficits to maintain and/or improve skin integrity Outcome: Progressing Problem: SAFETY ADULT - RISK FOR FALL AND OR FALL INJURY Goal: Patient remains free from fall/fall injury Outcome: Progressing Problem: RESPIRATORY - ADULT Goal: Achieves optimal ventilation and oxygenation Outcome: Progressing Problem: NEUROSENSORY - ADULT Goal: Achieves stable or improved neurological status Outcome: Progressing Problem: CARDIOVASCULAR - ADULT Goal: Maintains optimal cardiac output and hemodynamic stability Outcome: Progressing Shift Goals: Clinical Goals for the Shift: map > 65mmhg, sats > 93% Identify possible barriers to meeting goals/advancing plan of care: icu level of care End of Shift Summary: prn rectal supp was given, 1L lactulose enema given, negative for any bowel motion, episodes of desaturation thick mod-large secretion noted. Rass-3to4, afebrile. Hemodynamically stable. Noted intake and output. * Jess Salazar R.R.TMay, L.R.T. - 03/10/2024 6:02 AM CDT Alert Information: Plan of Care: Pt started the shift on CPAP+5 PS+5 and 30%. At 0130 pt switched to ASV 100% P+5 and 30% due to pt going apneic. Pt continues orally intubated and mechanically ventilated. Principal Problem Acute Respiratory Failure With Hypoxia (HCC) ETT Standard ETT (Active) Placement Date/Time: 03/01/24 (c) 8935 Mask Ventilation: Easy mask Technique: Video laryngoscopy ETT Type: Standard ETT Tube Size: 7.5 mm Cuffed: Yes Location: Oral Airway secured at (Initial measurement) : 22 Grade View: Grade 2A Airway Ins... Ventilator Info: Ventilator Mode: ASV FiO2 (%): 30 % PEEP (cmH2O): 5 cm H20 Plateau (Pause) Airway Pressure: 26 cm H2O Compliance (mL/cm H2O): 16.1 mL/cm H2O No results for input(s): PO2 ART, PCO2 ART, PH ART in the last 24 hours. Skin integrity checked: yes * Iron Salmeron RMayNMay - 03/09/2024 5:52 PM CDT Shift Goals: Clinical Goals for the Shift: Patient will remain safe and hemodynamically stable. Continue off sedation, monitor for increased arousal. Significant changes in patient condition: Patient remains RASS -3, eyes opening but not tracking, response to pain. Patient with no BM today despite scheduled bowel meds, tap water enema, and mineral oil enema. OG tube placed to decompress via LIS. Pain control during shift: Patient appears comfortable CPOT score 0 to 1. Family/social issues or concerns: Family at bedside, supportive, and with continued questions regarding prognosis and potential next interventions. Barriers to discharge: Remains on ventilator, mental status unchanged, continue bowel care. \ Problem: PAIN - ADULT Goal: PT VERBALIZES/DEMONSTRATES ADEQUATE COMFORT LEVEL OR BASELINE Outcome: Progressing Problem: POTENTIAL OR ACTUAL PRESSURE INJURY-ADULT Goal: Manage sensory Perception deficits to maintain and/or improve skin integrity Outcome: Not Progressing Problem: NEUROSENSORY - ADULT Goal: Achieves stable or improved neurological status Outcome: Not Progressing * Jess Salazar R.RBarbara, L.R.T. - 03/09/2024 6:28 AM CDT Alert Information: Plan of Care: Pt continues orally intubated and mechanically ventilated on 30% P+5, PS+5. Will weanas able. Principal Problem Acute Respiratory Failure With Hypoxia (HCC) ETT Standard ETT (Active) Placement Date/Time: 03/01/24 (c) 9848 Mask Ventilation: Easy mask Technique: Video laryngoscopy ETT Type: Standard ETT Tube Size: 7.5 mm Cuffed: Yes Location: Oral Airway secured at (Initial measurement) : 22 Grade View: Grade 2A Airway Ins... Ventilator Info: Ventilator Mode: SPONT FiO2 (%): 30 % PEEP (cmH2O): 5 cm H20 Plateau (Pause) Airway Pressure: 9.9 cm H2O Compliance (mL/cm H2O): 74.5 mL/cm H2O Recent Labs 03/08/24 1219 PO2 ART 71 L PCO2 ART 51 H PH ART 7.40 Skin integrity checked: yes * Umang Whatley R.N. - 03/09/2024 5:30 AM CDT Shift Goals: Clinical Goals for the Shift: Pt will continue to wake up and remain vitally stable all night. Identify possible barriers to meeting goals/advancing plan of care: Unable to extubate safely End of Shift Summary: Pts neuro improved throughout the from being able to only move RUE with painful stimuli to being able to move all extremities to painful stimuli. RASS of -3, opening eye spontaneously but still not tracking. Pt remained on SPONT all night. Patient safety maintained, Q2H oral cares and turned completed. Problem: SKIN/TISSUE INTEGRITY Goal: Skin/Tissue integrity maintained or improved Outcome: Progressing Problem: SAFETY ADULT Goal: Maintain a safe environment Outcome: Progressing Problem: Compromised Skin Integrity Goal: Skin/Tissue integrity maintained or improved Outcome: Progressing Problem: NEUROSENSORY - ADULT Goal: Achieves stable or improved neurological status Outcome: Progressing Electronically signed by: Nino Whatley R.N. 03/09/24 12:22 AM CDT * Carole Ellis R.N., AyeshaS.RMayN. - 03/08/2024 2:16 PM CDT Feeding Tube Site Care Indication for Consult: Feeding tube connector/adaptor Tube type and size: FAROOQ low profile Transgastric jejunal (Bulldozer Operator Federated Sample ([employer])) Size: 22 Georgian, 3.5 stoma length Connector Type: Small bore (ENFit) Date of tube placement: Replaced 12/30/2023 Placed by: GI Consulted with question of if tube could be put to LIS. Provided room RN with required adaptor to be placed on the tube. Order number [id number] ADAPTER ENFIT TO STD PRP Tube and tube site were not assessed on this visit. * Swati Vu, R.R.T., L.R.T. - 03/08/2024 11:47 AM CDT Patient is a 44 y.o. [...] (HCC) brain stem stroke Shift Summary: Patient remained on the ventilator throughout the day. Vent settings checked Q4 hours and he remains on spontaneous mode. 15:45- transported patient from 6 G to 6 F Plan of Care: Continue to monitor respiratory status while in the ICU, maintain airway patency, and provide mechanical ventilation, RT to maintain, manage and wean ventilation and oxygenation per protocols and ABGvalues, and ETT repositioned Q4 hours Airway: ETT Standard ETT (Active) Placement Date/Time: 03/01/24 (c) 8423 Mask Ventilation: Easy mask Technique: Video laryngoscopy ETT Type: Standard ETT Tube Size: 7.5 mm Cuffed: Yes Location: Oral Airway secured at (Initial measurement) : 22 Grade View: Grade 2A Airway Ins... ETT Standard ETT-Currently secured at (cm): 22 ETT Standard ETT-Measured from: Teeth Ventilation: Ventilator Mode: SPONT Respiratory Rate Settin Breaths/min PEEP (cmH2O): 5 cm H20 FiO2 (%): 30 % Peak Airway Pressure: 12 cm H2O Plateau (Pause) Airway Pressure: 10 cm H2O Compliance (mL/cm H2O): 42.1 mL/cm H2O Driving Pressure: 4.7 cm H2O Oxygen Therapy: $Delivery Method: Ventilator FiO2 (%): 30 % Hemodynamic monitoring: Arterial Line 03/01/24 Right Radial (Active) Placement Date/Time: 03/01/24 (c) 8285 Procedural Pause Completed: Yes Catheter Time Out Checklist Completed: Yes Hand Hygiene Performed Prior to Insertion: Yes Site Prep: Chlorhexidine (Preferred) Sterile Barriers Used : Cap;Gloves;Gown;Large d... Swati Vu R.R.T., L.R.T. 03/08/24 11:47 AM CDT * Lima Gardner, R.N. - 03/08/2024 4:17 AM CDT Problem: SKIN/TISSUE INTEGRITY Goal: Skin/Tissue integrity maintained or improved Outcome: Progressing Problem: Compromised Skin Integrity Goal: Skin/Tissue integrity maintained or improved Outcome: Progressing Problem: SAFETY ADULT - RISK FOR FALL AND OR FALL INJURY Goal: Patient remains free from fall/fall injury Outcome: Progressing Problem: RESPIRATORY - ADULT Goal: Achieves optimal ventilation and oxygenation 03/08/2024415 by Lima Gardner, R.N. Outcome: Progressing 03/08/2024415 by Lima Gardner, R.N. Outcome: Progressing Problem: NEUROSENSORY - ADULT Goal: Achieves stable or improved neurological status 03/08/2024415 by Lima Gardner, R.N. Outcome: Progressing 03/08/2024415 by Lima Gardner, R.N. Outcome: Progressing Problem: CARDIOVASCULAR - ADULT Goal: Maintains optimal cardiac output and hemodynamic stability Outcome: Progressing Shift Goals: Clinical Goals for the Shift: map> 65mmhg, sats > 93% Identify possible barriers to meeting goals/advancing plan of care: ICU level of care End of Shift Summary: Rass -4, eye opening spontaneous no tracking, no upper/lower movements. ET toMV spont the whole night, frequent suctioning from tube thick mod-large whitiesh secretion, thick whitiesh with blood tinged from oral. Intake and output noted. Hemodynamically map > 65mmhg, sats > 93%. Afebrile. * Ellie Coello, R.R.T., C.R.T., L.R.T. - 03/08/2024 3:25 AM CDT Patient is a 44 y.o. [...] (HCC) brain stem stroke Shift Summary: Patient remained on the ventilator through the night (SPONT: PS 5, PEEP 5, fio2 30%) Plan of Care: Continue to monitor respiratory status while in the ICU, maintain airway patency, and provide mechanical ventilation, RT to maintain, manage and wean ventilation and oxygenation per protocols and ABGvalues, and ETT repositioned Q4 hours Airway: ETT Standard ETT (Active) Placement Date/Time: 03/01/24 (c) 8322 Mask Ventilation: Easy mask Technique: Video laryngoscopy ETT Type: Standard ETT Tube Size: 7.5 mm Cuffed: Yes Location: Oral Airway secured at (Initial measurement) : 22 Grade View: Grade 2A Airway Ins... ETT Standard ETT-Currently secured at (cm): 22 ETT Standard ETT-Measured from: Teeth Ventilation: Ventilator Mode: SPONT Respiratory Rate Settin Breaths/min PEEP (cmH2O): 5 cm H20 FiO2 (%): 30 % Peak Airway Pressure: 11 cm H2O Plateau (Pause) Airway Pressure: 10 cm H2O Compliance (mL/cm H2O): 61.7 mL/cm H2O Driving Pressure: 4.9 cm H2O Oxygen Therapy: $Delivery Method: Ventilator FiO2 (%): 30 % Hemodynamic monitoring: Arterial Line 03/01/24 Right Radial (Active) Placement Date/Time: 03/01/24 (c) 1005 Procedural Pause Completed: Yes Catheter Time Out Checklist Completed: Yes Hand Hygiene Performed Prior to Insertion: Yes Site Prep: Chlorhexidine (Preferred) Sterile Barriers Used : Cap;Gloves;Gown;Large d... Nico DuranRMayTMay, C.R.T., L.R.T. 03/08/24 3:25 AM CDT * Elisa Rock R.R.T., L.R.T. - 03/07/2024 3:18 PM CDT Patient is a 44 y.o. male admitted on 02/28/2024 Recent Surgery: Principal Problem: Acute Respiratory Failure With Hypoxia [...] Significant Events During Current Stay: Shift Summary: 0735: Patient's morning assessment completed. ETT had been moved to right by nursing. [place] fast was noted to be was pushing on the lip, and moved to position above the lip. Patient placed on Spont 5/5 30%. This white/clear secretions were suctioned with lavage. 1100: [place] fast was changed, bleeding noted on lip. Vent check completed no changes made. 1545: Patient transported to [place] and back without complications via T-1 ventilator. Vent check completed. Arterial line water bag changed. Plan of Care: Continue to monitor respiratory status while in the ICU, maintain airway patency, and provide mechanical ventilation, RT to maintain, manage and wean ventilation and oxygenation per protocols and ABGvalues, and ETT repositioned Q4 hours Airway: ETT Standard ETT (Active) Placement Date/Time: 03/01/24 (c) 4122 Mask Ventilation: Easy mask Technique: Video laryngoscopy ETT Type: Standard ETT Tube Size: 7.5 mm Cuffed: Yes Location: Oral Airway secured at (Initial measurement) : 22 Grade View: Grade 2A Airway Ins... ETT Standard ETT-Currently secured at (cm): 22 ETT Standard ETT-Measured from: Teeth Ventilation: Ventilator Mode: SPONT Respiratory Rate Settin Breaths/min PEEP (cmH2O): 5 cm H20 FiO2 (%): 30 % Peak Airway Pressure: 11 cm H2O Plateau (Pause) Airway Pressure: 10 cm H2O Compliance (mL/cm H2O): 44.4 mL/cm H2O Driving Pressure: 4.3 cm H2O Oxygen Therapy: $Delivery Method: Ventilator FiO2 (%): 30 % Flow Rate (L/min): 8 L/min Hemodynamic monitoring: Arterial Line 03/01/24 Right Radial (Active) Placement Date/Time: 03/01/24 (c) 6923 Procedural Pause Completed: Yes Catheter Time Out Checklist Completed: Yes Hand Hygiene Performed Prior to Insertion: Yes Site Prep: Chlorhexidine (Preferred) Sterile Barriers Used : Cap;Gloves;Gown;Large d... Heidi Rock R.R.T., Pat 03/07/24 3:18 PM CDT * Carole Ellis R.N., CMayMMayS.R.N. - 03/07/2024 1:02 PM CDT Feeding Tube Site Care Indication for Consult: Feeding tube site check Venting tube site check Tube type and size: FAROOQ low profile Transgastric jejunal (Bulldozer Operator Federated Sample ([employer])) Size: 22 Georgian, 3.5 stoma length Connector Type: Small bore (ENFit) Date of tube placement: Replaced 12/30/2023 Placed by: GI Skin integrity at tube site: Moderate redness around entire site. The greatest amount is located from the three to nine o'clock position. This was even more extensive from the 6 to 9 o'clock position. The bleeding noted on the previous NSS RN visit is now minimal. Pain at tube site: Patient intubated Disc position: This type of tube has no skin disc. Stomal length is 3.5 cm Tube Rotation: Tube was not rotated due to tube type. This tube is not to be rotated. Tube insertion site was assessed and there was small amount of serosanguineous drainage at the site. Mepilex Up was present under the skin disc. Site care was not done on this visit. The room RN stated that they are doing acetic acid dressings to the skin per wound care recommendations. Tube securements were not in place at this time. No hypergranulation tissue noted. Yeast not present. Requested to see patient about the venting port of his tube. RN stated that the tube had not been venting well, but it improved some with changing the extension tubing. The drainage in the tubing andbag appeared to be a yellow/waters and is concerning for tube feedings. Attempted to flush the tube with 30cc water and it flushed freely. Only able to aspirate 20cc back. Unable to aspirate any addition al fluid or air. Room RN stated she would discuss findings with primary service. She stated last BMwas 2 days ago and he has gotten multiple bowel meds today. Bowel sounds are present but hypoactive. Recommendations: Site care to be completed per enteral feeding tube exit site care procedure. Secure tube to abdomen with a tube murphy (Flexi-Trak or other). Do not rotate tube. Clean the ENFit?? tube connector every 24 hours and when visibly soiled using a cleaning brush. Continue skin care per WOC RN recommendations. Mepilex UP can be used to protect the skin and absorb drainage. Venting of the gastric port could be dependant on positioning of the patient to allow fluid to get to the holes in the venting tube. Could consider abdominal imaging to assess for other causes of distension. * Catherine Eaton R.N., CCRN - 03/07/2024 10:28 AM CDT Shift Goals: Clinical Goals for the Shift: Mental status will improve; respiratory status will remain stable. Significant changes in patient condition: No acute changes. Pain control during shift: CPOT 0 -2 Family/social issues or concerns: None. Barriers to discharge: Continuing to require ICU level of care as he remains intubated with intermittent vasopressor requirements. Starting goals of care discussions. Patient progress: Respiratory status remains stable. Ventilator settings changed from ASV to SPONT this morning around 0800 and has tolerated well. Norepinephrine off since 1030. Intermittently more responsive to painful stimuli, coughing more spontaneously. Abdomen distended. Attempted venting of G port of Calista tube, no improvement, Nutrition support nurse consulted for possible issues with gastric tube. No issues identified. Abdominal XR and CT completed for concern for ileus which was confirmed this afternoon. Holding tube feeds. Bowel regimen. 1 large brown, liquid bowel movement. Woundcare completed. PT/OT planing to see patient tomorrow. Problem: INFECTION - ADULT Goal: Absence of infection during hospitalization Outcome: Progressing Note: Day 5 of 7 of antibiotics. Problem: RESPIRATORY - ADULT Goal: Achieves optimal ventilation and oxygenation Outcome: Progressing Problem: NEUROSENSORY - ADULT Goal: Achieves stable or improved neurological status Outcome: Progressing Electronically signed by: Catherine Eaton R.N., CCRN 03/07/24 6:14 PM CDT * Jesus Vee R.N. - 03/07/2024 4:53 AM CDT Shift Goals: Clinical Goals for the Shift: Hemodynamically stable, improved mental status Identify possible barriers to meeting goals/advancing plan of care: Altered Mental Status, ventillated End of Shift Summary: Patient Rass -4 most of night. Had moments of spontaneous eye opening & blinking, but no tracking. Patient moved head and clenched teeth when suctioning. No movement in all 4 extremities. Patient spontaneously breathed on ASV 30 % PEEP 5 most of night maintaining O2 > 90. Moderate amount thick white, blood-tinged oral secretions and thick white ETT secretions. MAPs > 65 on 0.02 Norepinephrine. Applied wraps to patients legs for +2 edema. Wound care completed per orders. Patient pain CPOT score 0 throughout night. * Ellie Coello, R.R.T., C.R.T., L.R.T. - 03/07/2024 3:31 AM CDT Patient is a 44 y.o. [...] (HCC) brain stem stroke Shift Summary: Patient remained on the ventilator through the night (ASV, 70%, PEEP 5, 30%). Plan of Care: Continue to monitor respiratory status while in the ICU, maintain airway patency, and provide mechanical ventilation, RT to maintain, manage and wean ventilation and oxygenation per protocols and ABGvalues, and ETT repositioned Q4 hours Airway: ETT Standard ETT (Active) Placement Date/Time: 03/01/24 (c) 8046 Mask Ventilation: Easy mask Technique: Video laryngoscopy [...] FiO2 (%): 30 % Peak Airway Pressure: 12 cm H2O Plateau (Pause) Airway Pressure: 10 cm H2O Compliance (mL/cm H2O): 60.1 mL/cm H2O Driving Pressure: 4.6 cm H2O Oxygen Therapy: $Delivery Method: Ventilator FiO2 (%): 30 % Hemodynamic monitoring: Arterial Line 03/01/24 Right Radial (Active) Placement Date/Time: 03/01/24 (c) 2097 Procedural Pause Completed: Yes Catheter Time Out Checklist Completed: Yes Hand Hygiene Performed Prior to Insertion: Yes Site Prep: Chlorhexidine (Preferred) Sterile Barriers Used : Cap;Gloves;Gown;Large d... Fawad Duran.RMayTMay, C.R.T., L.R.T. 03/07/24 3:31 AM CDT * Catherine Eaton RMayNMay, CCRN - 03/06/2024 5:53 PM CDT Shift Goals: Clinical Goals for the Shift: Patient will maintain stable neurological and respiratory status throughout shift Significant changes in patient condition: None. Pain control during shift: C-POT 0 through day. Family/social issues or concerns: Family at bedside. Appropriate and cooperative. Barriers to discharge: Requiring ICU level of care due to ventilatory support, intermittent pressorrequirement. Patient progress: Remains intubated/ventilated.. ASV 5 35%. Neurologic status unchanged; remains off sedation. EEG, head MRI completed. Problem: RESPIRATORY - ADULT Goal: Achieves optimal ventilation and oxygenation Outcome: Progressing Note: Remains intubated. Ventilator settings mostly unchanged. FIO2 between 30- 50%. Secretion burden improving, required lavage x 2 during shift. Problem: NEUROSENSORY - ADULT Goal: Achieves stable or improved neurological status Outcome: Progressing Note: RASS - 4 throughout day. Intermittent eye opening but not tracking. No spontaneous movement of extremities. Pupil remain 5, reactive and sluggish. Goal: Absence of seizures Outcome: Progressing Note: No seizures noted through shift. Electronically signed by: Catherine Eaton R.N., CCRN 03/06/24 6:03 PM CDT * Abdon Elliott, R.R.T., L.R.T. - 03/06/2024 4:55 PM CDT Patient is a 44 y.o. male admitted on 02/28/2024 Shift summery 07:30 Respiratory assessment completed at this time. Patient remains intubated, and mechanically ventilated with Adaptive Support Ventilation (ASV). Ventilator checked completed, ETT Tube repositioned to the left side at this time. Arterial Line assessment completed, dressing is dry and intact, waveform, and square wave test are appropriate at this time. 11:15 Respiratory Therapy provided patient transport to and from [facility] using ASV Mode 90%, PEEP 5 30%, patient transported without incident. Respiratory Therapies and Medications: DuoNeb QID PRN. Plan of Care: RT to monitor respiratory status while in the ICU, maintain ETT depth and patency, manage and wean ventilator per ABG values, and provide supplemental oxygen to maintain adequate saturations. RT to maintain hemodynamic lines, and suction the patient as needed. Airway: ETT Standard ETT (Active) Placement Date/Time: 03/01/24 (c) 5075 Mask Ventilation: Easy mask Technique: Video laryngoscopy ETT Type: Standard ETT Tube Size: 7.5 mm Cuffed: Yes Location: Oral Airway secured at (Initial measurement) : 22 Grade View: Grade 2A Airway Ins... Oxygen Therapy: $Delivery Method: Ventilator FiO2 (%): 35 % Vent mode: Ventilator Mode: ASV FiO2 (%): [30 %-50 %] 35 % PEEP (cmH2O): [5 cm H20-16 cm H20] 5 cm H20 Mean Airway Pressure: [8 cm H2O-15 cm H2O] 15 cm H2O Plateau pressure: Plateau (Pause) Airway Pressure: 26 cm H2O Compliance: Compliance (mL/cm H2O): 12 mL/cm H2O FiO2 (%): 35 % PEEP (cmH2O): 5 cm H20 Hemodynamic monitoring Arterial Line 03/01/24 Right Radial (Active) Placement Date/Time: 03/01/24 (c) 9597 Procedural Pause Completed: Yes Catheter Time Out Checklist Completed: Yes Hand Hygiene Performed Prior to Insertion: Yes Site Prep: Chlorhexidine (Preferred) Sterile Barriers Used : Cap;Gloves;Gown;Large d... 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 03/06/24 * Ermias May R.R.T., L.R.T., CENTRAL OFFICE MAINTAINER-[facility] - 03/06/2024 5:38 AM CDT Patient is a 44 y.o. [...] Stroke (HCC) brain stem stroke Shift Summary: 729: Patient assessed, vent and art line checked. Patient seen on ASV, no settings changes 2340: Vent checked, no settings changes 032: Vent checked, no settings changes Plan of Care: Continue to monitor respiratory status while in the ICU, maintain airway patency, and provide mechanical ventilation, RT to maintain, manage and wean ventilation and oxygenation per protocols and ABGvalues, Administer respiratory medications as ordered, and Manage hemodynamic lines per protocol Airway: ETT Standard ETT (Active) Placement Date/Time: [...] FiO2 (%): 30 % Peak Airway Pressure: 12 cm H2O Plateau (Pause) Airway Pressure: 11 cm H2O Compliance (mL/cm H2O): 19.3 mL/cm H2O Driving Pressure: 4.6 cm H2O Oxygen Therapy: $Delivery Method: Ventilator FiO2 (%): 30 % Flow Rate (L/min): 8 L/min Hemodynamic monitoring: Arterial Line 03/01/24 Right Radial (Active) Placement Date/Time: 03/01/24 (c) 2586 Procedural Pause Completed: Yes Catheter Time Out Checklist Completed: Yes Hand Hygiene Performed Prior to Insertion: Yes Site Prep: Chlorhexidine (Preferred) Sterile Barriers Used : Cap;Gloves;Gown;Large d... Recent ABG: No results for input(s): PO2 ART, PCO2 ART, PH ART, HCO3 ART, BASE EXC ART in the last 24hours. Ermias May R.R.T., L.R.T., CENTRAL OFFICE MAINTAINER-[facility] 03/06/24 5:38 AM CDT * Abdon Elliott, R.R.T., L.R.T. - 03/05/2024 3:38 PM CDT Patient is a 44 y.o. male admitted on 02/28/2024 Shift summery 07:30 Respiratory assessment completed at this time. Patient remains intubated, and mechanically ventilated with Adaptive Support Ventilation (ASV) Ventilator checked completed, ETT Tube repositioned to the left side at this time. Arterial Line assessment completed, dressing is dry and intact, waveform, and square wave test are appropriate at this time. Respiratory Therapies and Medications: DuoNeb QID PRN. Plan of Care: RT to monitor respiratory status while in the ICU, maintain ETT depth and patency, manage and wean ventilator per ABG values, and provide supplemental oxygen to maintain adequate saturations. RT to maintain hemodynamic lines, and suction the patient as needed. Airway: ETT Standard ETT (Active) Placement Date/Time: 03/01/24 (c) 8013 Mask Ventilation: Easy mask Technique: Video laryngoscopy ETT Type: Standard ETT Tube Size: 7.5 mm Cuffed: Yes Location: Oral Airway secured at (Initial measurement) : 22 Grade View: Grade 2A Airway Ins... Oxygen Therapy: $Delivery Method: Ventilator FiO2 (%): 30 % Vent mode: Ventilator Mode: ASV FiO2 (%): [30 %] 30 % PEEP (cmH2O): [5 cm H20] 5 cm H20 Plateau pressure: Plateau (Pause) Airway Pressure: 17 cm H2O Compliance: Compliance (mL/cm H2O): 21.1 mL/cm H2O FiO2 (%): 30 % PEEP (cmH2O): 5 cm H20 Hemodynamic monitoring Arterial Line 03/01/24 Right Radial (Active) Placement Date/Time: 03/01/24 (c) 6587 Procedural Pause Completed: Yes Catheter Time Out Checklist Completed: Yes Hand Hygiene Performed Prior to Insertion: Yes Site Prep: Chlorhexidine (Preferred) Sterile Barriers Used : Cap;Gloves;Gown;Large d... 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 [...] Stroke (HCC) brain stem stroke Shift Summary: 0730: Patient assessed, vent and art line checked. Patient seen on ASV, no settings changes 2345: Vent checked, no settings changes 0310: Vent checked, no settings changes Plan of Care: Continue to monitor respiratory status while in the ICU, maintain airway patency, and provide mechanical ventilation, RT to maintain, manage and wean ventilation and oxygenation per protocols and ABGvalues, and Manage hemodynamic lines per protocol Airway: ETT Standard ETT (Active) Placement Date/Time: 03/01/24 (c) 7573 Mask Ventilation: Easy mask Technique: Video laryngoscopy [...] FiO2 (%): 30 % Peak Airway Pressure: 11 cm H2O Plateau (Pause) Airway Pressure: 17 cm H2O Compliance (mL/cm H2O): 21.1 mL/cm H2O Driving Pressure: 12.6 cm H2O Oxygen Therapy: $Delivery Method: Ventilator FiO2 (%): 30 % Flow Rate (L/min): 8 L/min Hemodynamic monitoring: Arterial Line 03/01/24 Right Radial (Active) Placement Date/Time: 03/01/24 (c) 9119 Procedural Pause Completed: Yes Catheter Time Out Checklist Completed: Yes Hand Hygiene Performed Prior to Insertion: Yes Site Prep: Chlorhexidine (Preferred) Sterile Barriers Used : Cap;Gloves;Gown;Large d... Recent ABG: No results for input(s): PO2 ART, PCO2 ART, PH ART, HCO3 ART, BASE EXC ART in the last 24hours. Ermias May R.R.T., LMayR.TMay, CENTRAL OFFICE MAINTAINER-[facility] 03/05/24 4:35 AM CDTf Electronically signed by Ermias May R.R.T., LMayR.TMay, CENTRAL OFFICE MAINTAINER-[facility] at 03/05/2024 4:36 AM CDT * Abdon Elliott R.R.T., L.R.T. - 03/04/2024 2:53 PM CDT Patient is a 44 y.o. male admitted on 02/28/2024 Shift summery 07:30 Respiratory assessment completed at this time. Patient remains intubated, and mechanically ventilated with Adaptive Support Ventilation (ASV) Ventilator checked completed, ETT Tube repositioned to the left side at this time. Arterial Line assessment completed, dressing is dry and intact, waveform, and square wave test are appropriate at this time. Respiratory Therapies and Medications: DuoNeb QID PRN. Plan of Care: RT to monitor respiratory status while in the ICU, maintain ETT depth and patency, manage and wean ventilator per ABG values, and provide supplemental oxygen to maintain adequate saturations. RT to maintain hemodynamic lines, and suction the patient as needed. Airway: ETT Standard ETT (Active) Placement Date/Time: 03/01/24 (c) 8026 Mask Ventilation: Easy mask Technique: Video laryngoscopy ETT Type: Standard ETT Tube Size: 7.5 mm Cuffed: Yes Location: Oral Airway secured at (Initial measurement) : 22 Grade View: Grade 2A Airway Ins... Oxygen Therapy: $Delivery Method: Ventilator FiO2 (%): 30 % Vent mode: Ventilator Mode: ASV FiO2 (%): [25 %-30 %] 30 % PEEP (cmH2O): [5 cm H20] 5 cm H20 SC SUP: [15 cm H20] 15 cm H20 Mean Airway Pressure: [6.7 cm H2O-7.7 cm H2O] 7.7 cm H2O Plateau pressure: Plateau (Pause) Airway Pressure: 17 cm H2O Compliance: Compliance (mL/cm H2O): 21.1 mL/cm H2O FiO2 (%): 30 % PEEP (cmH2O): 5 cm H20 Hemodynamic monitoring Arterial Line 03/01/24 Right Radial (Active) Placement Date/Time: 03/01/24 (c) 7608 Procedural Pause Completed: Yes Catheter Time Out Checklist Completed: Yes Hand Hygiene Performed Prior to Insertion: Yes Site Prep: Chlorhexidine (Preferred) Sterile Barriers Used : Cap;Gloves;Gown;Large d... 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 03/04/24 * Ermias May R.R.T., L.R.T., CENTRAL OFFICE MAINTAINER-[facility] - 03/04/2024 6:28 AM CDT Patient is a 44 y.o. [...] Stroke (HCC) brain stem stroke Shift Summary: 729: Patient assessed, vent and art line checked. Mode switched from Spont to ASV to rest overnight. 2300: Vent checked, no settings changes 0300: Vent checked, no settings changes Plan of Care: Continue to monitor respiratory status while in the ICU, maintain airway patency, and provide mechanical ventilation, RT to maintain, manage and wean ventilation and oxygenation per protocols and ABGvalues, and Manage hemodynamic lines per protocol Airway: ETT Standard ETT (Active) Placement Date/Time: [...] FiO2 (%): 30 % Peak Airway Pressure: 23 cm H2O Plateau (Pause) Airway Pressure: 17 cm H2O Compliance (mL/cm H2O): 21.1 mL/cm H2O Driving Pressure: 12.6 cm H2O Oxygen Therapy: $Delivery Method: Ventilator FiO2 (%): 30 % Flow Rate (L/min): 8 L/min Hemodynamic monitoring: Arterial Line 03/01/24 Right Radial (Active) Placement Date/Time: 03/01/24 (c) 8009 Procedural Pause Completed: Yes Catheter Time Out Checklist Completed: Yes Hand Hygiene Performed Prior to Insertion: Yes Site Prep: Chlorhexidine (Preferred) Sterile Barriers Used : Cap;Gloves;Gown;Large d... Recent ABG: No results for input(s): PO2 ART, PCO2 ART, PH ART, HCO3 ART, BASE EXC ART in the last 24hours. Ermias May R.R.T., L.R.T., CENTRAL OFFICE MAINTAINER-[facility] 03/04/24 6:28 AM CDTf * Paula Cruz R.RRoberth., L.R.T. - 03/03/2024 9:12 AM CDT Patient [...] lavaged for small amounts of thick clear waters secretions, nospontaneous breathing unless aroused. 1100: vent checked on ASV 80% 1527: patient placed on SPONT 15/+5 30% Principal Problem Acute Respiratory Failure With Hypoxia (HCC) Airway: ETT Standard ETT (Active) Placement Date/Time: 03/01/24 (c) Mask Ventilation: Easy mask Technique: Video laryngoscopy [...] Right Radial (Active) Placement Date/Time: 03/01/24 (c) 9740 Procedural Pause Completed: Yes Catheter Time Out Checklist Completed: Yes Hand Hygiene Performed Prior to Insertion: Yes Site Prep: Chlorhexidine (Preferred) Sterile Barriers Used : Cap;Gloves;Gown;Large d... Recent ABG: Recent Labs 03/02/24 1715 PO2 ART 88 PCO2 ART 41 PH ART 7.40 HCO3 ART 25 BASE EXC ART 0 Paula Cruz R.R.T., L.R.T. 03/03/24 9:13 AM CDT * Anthony Montilla R.R.T., Pat, [facility] - 03/03/2024 4:53 AM CDT Patient is [...] due to SpO2 88%. Small amounts of waters secretions suctioned via ETT. 2247: Vent assessed, [...] Standard ETT (Active) Placement Date/Time: 03/01/24 (c) 7028 Mask Ventilation: Easy mask Technique: Video laryngoscopy [...] Right Radial (Active) Placement Date/Time: 03/01/24 (c) 5690 Procedural Pause Completed: Yes Catheter Time Out Checklist Completed: Yes Hand Hygiene Performed Prior to Insertion: Yes Site Prep: Chlorhexidine (Preferred) Sterile Barriers Used : Cap;Gloves;Gown;Large d... Recent ABG: Recent Labs 03/02/24 1715 PO2 ART 88 PCO2 ART 41 PH ART 7.40 HCO3 ART 25 BASE EXC ART 0 Anthony Montilla R.R.T., TezRBarbara, CENTRAL OFFICE MAINTAINER-[facility] 03/03/24 4:53 AM CDT Electronically signed by Anthony Montilla R.R.T., LMayRMayTMay, CENTRAL OFFICE MAINTAINER-[facility] at 03/03/2024 5:19 AM CDT * Teagan Beverly R.N., CCRN - 03/02/2024 3:43 PM CDT Shift [...] stool after. Family at bedside throughout day, concrete hopper operator visited at bedside. Problem: RESPIRATORY - ADULT Goal: Achieves optimal ventilation and oxygenation Outcome: Progressing; Improvement in secretion burden noted. Pt still continues to have a small amount of thick waters/blood-tinged secretions w/ ETT suctioning. Electronically signed by: Teagan Beverly R.N.NIKKO 03/02/24 3:50 PM CDT * Paula Cruz R.RRoberth., L.R.T. - 03/02/2024 10:06 AM CDT Patient [...] lavaged for large amounts of thick clear waters secretions. 0930: patient transported to CT on transport vent, APVcmv 14, 320, +5, 30% 1115: patient placed on ASV 100%, +5 30% 1500: vent checked, no changes made 1700: ASV decreased to 80% Principal Problem Acute Respiratory Failure With Hypoxia (HCC) Airway: ETT Standard ETT (Active) Placement Date/Time: 03/01/24 (c) 8378 Mask Ventilation: Easy mask Technique: Video laryngoscopy [...] Right Radial (Active) Placement Date/Time: 03/01/24 (c) 7165 Procedural Pause Completed: Yes Catheter Time Out Checklist Completed: Yes Hand Hygiene Performed Prior to Insertion: Yes Site Prep: Chlorhexidine (Preferred) Sterile Barriers Used : Cap;Gloves;Gown;Large d... Recent ABG: Recent Labs 03/02/24 0346 PO2 ART 127 H PCO2 ART 36 PH ART 7.47 H HCO3 ART 26 BASE EXC ART 2 Paula Cruz R.R.T., L.R.T. 03/02/24 10:06 AM CDT * Zayda Nielson R.N. - 03/02/2024 5:20 AM CDT Problem: [...] unable to follow commands. Patient was intubated [id number] (03/01), and placed on a propofol drip [...] 2:37 AM CDT Alert Information: Shift Summary: 0: Patient NT suctioned 0: Patient intubated and bronchoscopy performed 0: Arterial line placed Plan of Care: Maintain [...] (mL/cm H2O): 20.5 mL/cm H2O Recent Labs 03/01/248 PO2 ART 73 L PCO2 ART 38 PH ART 7.43 * Teagan Beverly, RMayN., CCRN - 03/01/2024 5:59 PM CDT Shift [...] ZEFERINON 03/01/24 6:03 PM CDT * Paula Cruz R.R.T., L.R.T. - 03/01/2024 4:00 PM CDT Patient is a 44 y.o. male admitted on 02/28/2024 Principal Problem: Acute Respiratory Failure With Hypoxia (HCC) Plan of Care: Patient remains on Aerosal mask . RT will continue to assess and monitor while in ICU, emergency bag and mask at bedside. Shift Summary: 729: patient assessed, course breath sounds on aerosal mask 28% 5L, very hard to arouse. Talked with service about getting chest xray and abg, both came back. 1015: Hand held percussion started to help desk analyst in secretion clearance, performed for 15 min patienttolerated it will, suctioned the back of mouth for a moderate amount of waters blood tinged secretions. Try to go down [...] EXC ART 2 Paula Cruz R.R.T., L.R.T. 03/01/24 4:03 PM CDT * Carole Ellis R.N., C.Tracey.S.R.N. - 03/01/2024 12:49 PM CDT Feeding Tube Site Care Indication for Consult: Feeding tube site check Leaking tube Tube Type and size: FAROOQ low profile Transgastric jejunal (Bulldozer Operator [employer] Sample [employer] Size: 22 Georgian, 3.5 stoma length Connector Type: Small bore [...] to follow up with GI. * Ellie Coello R.R.T., CMayR.TMay, L.R.T. - 03/01/2024 6:05 AM CDT Patient [...] NTS and a copious amount of thick, waters/blood tinged secretions were obtained. His oxygen was [...] Rate (L/min): 5 L/min Ellie Coello R.R.T., NeelR.T., L.R.T. 03/01/24 6:05 AM CDT * Zayda Nielson [...] hospitalization Outcome: Progressing * Abdon Elliott R.R.T., L.R.T. - 02/29/2024 4:50 PM CDT Patient is a 44 y.o. male admitted on 02/28/2024 Shift Summary: 08:15 Patient remains aerosol mask for secretions mobilization, and decreased settings from 35%/8 Lto 28%/5L due to high SpO2. 11:00 Nasotracheal Suction Therap completed at this time with large Waters and blood tinged secretions. Patiens aerosol mask [...] Vein (HCC) Electronically signed by: Abdon Elliott R.R.T. LMayR.TMay 02/29/24 4:50 PM CDT * Ellie Coello R.R.T., C.R.T., L.R.T. - 02/29/2024 4:56 AM CDT [...] (HCC) brain stem stroke Shift Summary: Patient remained [...] BASE EXC ART -2 Ellie Coello R.R.T., C.R.T., L.R.T. 02/29/24 4:56 AM CDT * Paula Cruz R.R.T., L.R.T. - 02/28/2024 4:26 PM CDT Patient is a 44 y.o. male admitted on 02/28/2024 Principal Problem: Acute Respiratory Failure With Hypoxia (HCC) Plan of Care: Patient remains on Aerosal mask 35%. RT will continue to assess and monitor while in ICU, emergency bag and mask at bedside. Shift Summary: 1450: patient arrived to unit on BiPAP 8/5 with EMS, patient looked tachypneic and was [...] airway Size (mm): 6.5 Placed by:Paula Cruz CENTRAL OFFICE MAINTAINER Oxygen Therapy: $Delivery Method: Aerosol mask FiO2 (%): 35 % Flow Rate (L/min): 8 L/min Paula Cruz R.R.T., L.R.T. 02/28/24 4:26 PM CDT documented in this encounter OR Notes * Op Note - Pascual Solorzano M.D. - 03/11/2024 2:50 PM CDT Pre-op Diagnosis Pneumoperitoneum Post-op Diagnosis Pneumoperitoneum Care Center Manager A presser first actively participated and was necessary for one or more of the following: opening, exposure and visualization, maintaining hemostasis, wound closure resulting in its safe and expeditious completion. Findings Removal of ABThera Cholecystectomy Sigmoid colectomy Ileocolonic anastomosis End descending colostomy 2 abdominal TAMARA drains: Superior right at gallbladder fossa, inferior right in pelvis One subcu drain Fascia closed During the procedure, the following was observed: - Altered surgical field secondary to tissue friability Complications None Operative Note Narrative Patient was brought to the operating room and placed supine on the operating table. General anesthesia was induced without any complication. Patient was positioned supine with optimal padding of all pressure points. Patient was prepped and draped in the usual sterile fashion and a procedural pause was completed identifying the correct patient, correct procedure, ana-operative antibiotics, allergies, and any safety concerns. ABThera was removed from the abdomen. The abdomen was examined. The colon was significantly dilated. The small bowel was very edematous. Previously placed QuikClot and labs were removed from the right upper quadrant around the gallbladder. There was noted to be some oozing from around the gallbladder. At this point we performed a cholecystectomy in a top-down approach. When we believed to be the cystic artery was identified although it was small and diminutive secondary to inflammation. This was ligated with 3-0 Vicryl The cystic duct was identified and ligated with 3-0 Vicryl. We work to achieve hemostasis of the liver bed. The gallbladder fossa was very inflamed and friable and tore easily as we were dissecting the gallbladder. Eventually hemostasis was achieved. We then packed this area and plan to come back assess later. We next turned our attention to the colon. The section of transverse and descending colon at the hepatic flexure was significantly dilated and appeared to be ischemic. We elected to resect this duskylooking portion of the colon to mid transverse colon. A window was made at the base of mesentery and the colon was stapled with a Endo-MANUEL purple load stapler with Ana strips. The hepatic flexure portion of the colon was dissected free of the mesentery using a LigaSure. Hemostasis was achieved. Yulisa turned our attention to very redundant sigmoid colon. This was significantly dilated although it did not. Ischemic. The sigmoid colon naturally wanted is a twist due to this redundancy. We decided to resect a portion of sigmoid colon. Window was made at the rectosigmoid junction using cautery.The colon was stapled using an Endo-MANUEL stapler with a purple load. The mesentery of the sigmoid colon was dissected using a LigaSure. We next made a window in the proximal sigmoid colon and transected sigmoid using a Endo- MANUEL purple load. At this point we turned our attention to the ileocolonic anastomosis. Patient was doing well in thebowel looked viable. We at this time decided to make ileocolonic anastomosis. A layer of silk Lembert sutures were placed in an isoperistaltic fashion aligning the 2 ends of the small bowel and colon. A Endo- MANUEL purple load with Ana strips was used to create the ileocolonic anastomosis. The commonenterotomy was closed using 4-0 PDS in a running fashion. The staple line of the end of the small bowel as well as the colon were oversewed with 3-0 silk Lembert sutures. A crotch stitch suture was placed between the small bowel and colon. The mesenteric defect was assessed. It was large in us ultimately not closed. We then went back to assess the gallbladder. The gallbladder fossa was hemostatic and packing was removed. Omentum was placed over the ileocolonic anastomosis. A 19 Georgian TAMARA drain was placed in the infra hepatic space at the gallbladder fossa. This came out the right abdomen. Another 19 Georgian TAMARA drain was placed in the right lower abdomen around the rectal stump. We then turned our attention to making the ostomy site. The skin was marked and a circular incisionwas made in the left abdomen over the rectus muscle. This was carried down to the fascia using electrocautery. The fascia was incised in a cruciate fashion. The rectus muscle spread bluntly. The posterior fascia was incised in a cruciate fashion. The ostomy site was not too tight and easily accommodated the sigmoid colon. We then turned our attention to closing the fascia. The fascia was closed in a running fascia with [employer]. The fascia came together nicely although the fascia itself was very thin. Due to his abdominal contamination and concerns for his tenuous fascia we elected to close the skin over a 19 Georgian TAMARA drain which came out the left lower quadrant. Skin was closed with vimal and vertical mattress 3-0 nylon sutures. The skin was covered and the ostomy was then matured. We cut the staple line off the ostomy. We then placed Brooking sutures in all 4 quadrants. The colostomy was brooked and then the edges were tacked to the dermis circumferentially using 4-0 Vicryl. An ostomy appliance was placed over the colostomy. Instrument and sponge counts were counted and correct at the end of the procedure. The patient tolerated the procedure well, was transferred to the ICU still intubated and sedated in stable condition. Pascual Solorzano M.D. * Brief Op Note - Pascual Solorzano M.D. - 03/11/2024 2:50 PM CDT Pre-op Diagnosis Pneumoperitoneum Post-op Diagnosis Pneumoperitoneum Findings Removal of ABThera Cholecystectomy Sigmoid colectomy Ileocolonic anastomosis End descending colostomy 2 abdominal TAMARA drains: Superior right at gallbladder fossa, inferior right in pelvis One subcu drain Fascia closed Complications None Pascual Solorzano M.D. * Op Note - Jacki Suh M.B.B.S. - 03/10/2024 2:51 PM CDT Pre-op Diagnosis None Post-op Diagnosis None Care Center Manager A presser first actively participated and was necessary for one or more of the following: opening, exposure and visualization, maintaining hemostasis, wound closure resulting in its safe and expeditious completion. Findings Cecal volvulus Cecal perforation Right hemicolectomy Coagulopathic bleeding from the liver capsule. Aborted cholecystectomy. Temporary abdominal closure These findings added significant complexity to the procedure because distorted anatomy, coagulopathy, hemodynamic instability. Complications None Operative Note Narrative Patient was brought to the operating room and placed supine on the operating table, already intubated. General anesthesia was induced without any complication. Patient was positioned supine arms tucked with optimal padding of all pressure points. Patient was prepped and draped in the usual sterile fashion and a procedural pause was completed identifying the correct patient, correct procedure, ana-operative antibiotics, allergies, and any safety concerns. We proceeded with a supraumbilical 5 mm incision followed by Optiview entry. No injuries occurred upon abdominal access. Pneumoperitoneum was established to 15 mmHg. On initial abdominal exploration,we noted significantly dilated loops of small bowel. There was no evidence of free fluid or succus.The was insufficient working room due to the dilated intestine, to proceed safetely with a minimally invasive approach, thus the 5 mm trocar was removed a midline laparotomy made. Upon abdominal entry, the cecum was immediately exteriorized. It was significantly dilated and volulized. There was a pinpoint perforation identified in the cecum. The small bowel was run from the ligament of Treitz to the ileocecal valve and no other sites of perforation were identified. The sigmoid colon was significantly dilated and redundant, prone to twisting around the mesenteric access. The stomach was not easily accessible due to omental adhesions around the pre-existing gastrojejunostomy tube, however there was no succus or fluid in that area to suggest a co-existing gastric perforation. The rest of thecolon appeared dilated and thin walled. The splenic flexure was difficult to evaluate, hidden behind the gastrojejunostomy tube. We proceeded with a right hemicolectomy: mesenteric windows were created in the distal ileum and ascending colon. The distal ileum and colon were divided using [id number] mm purple EndoGIA staple loads. The mesentery was divided using the Ligasure. We had little working space at this time despite extending the midline laparotomy incision. We therefore removed part of the ileal staple line and, under controlled conditions, evacuated the succus from the small intestine to decompress it. There was thick, fecalized fluid removed. The ileum was re- stapled at the completion. The abdomen was irrigated. The hepatic flexure was mobilized to prepare for the ileocolonicanastomosis. On further evaluation, the gallbladder was markedly distended and inflamed thus we elected to pursue cholecystectomy. We were unable to grasp the gallbladder, it was therefore decompressed using an Angiocath needle with removal of 60 mL of clear bile. Next we began to separate the gallbladder from the cystic plate. We encountered significant bleeding from the liver during our attemptto dissect the gallbladder and an additional whole was made in the gallbladder wall with spillage of bile. At this point, the patient was clearly coagulopathic, with diffuse oozing from all cut surfaces. We therefore elected to terminate the procedure at this point. The wholes in the gallbladder were oversewn with figure of eight 3-0 silk sutures. Fibrillar was placed in the liver capsule bleeding followed by quickclot tied to a salt. An ABThera temporary abdominal closure was placed with two pieces of blue sponge. Instrument and sponge counts were counted and correct at the end of the procedure. The patient was transferred to the intensive care unit, still intubated, and in a critical state. Wound class IV. Jacki Vikash, M.B.B.S. * Brief Op Note - Lauren Hernandez M.D. - 03/10/2024 2:51 PM CDT Pre-op Diagnosis None Post-op Diagnosis None Findings Diagnostic laparoscopy converted to ex lap for minimal space in abdomen even in context of pneumoperitoneum With ex lap incision volvulized cecum presented with hole in cecum Right hemicolectomy Proximal bowel decompression Attempted cholecystectomy, aborted due to bleeding AbThera closure, 1 quick clot tied to salt packed Complications None Lauren Hernandez M.D. documented in this encounter Miscellaneous Notes * Documentation Clarification - Gardenia Gordillo APRN, C.N.P., M.S.N. - 03/02/2024 8:35 AM CDT PROVIDER RESPONSE TEXT: To clarify, the appropriate diagnosis supported by the clinical indicators: Pancytopenia, QUERY TEXT: Clarification DOCUMENTATION CLARIFICATION REQUEST Please clarify/specify the appropriate diagnosis supported in the clinical indicators below. Clinical Indicators/Risk Factors/Treatment: Date of admission: 02/28/2024 Clinical indicators: H&P by Erasmo Lloyd APRN, C.N.P., D.N.P. at 02/28/2024 44 y.o. male patient with history of Macomb-Gastaut syndrome, developmental delay, ALL treated with chemoradiation, [...] * Documentation Clarification - Gardenia Gordillo APRN, C.N.Bisi, M.S.N. - 03/02/2024 8:33 AM CDT PROVIDER RESPONSE TEXT: To clarify, the appropriate diagnosis supported by the clinical indicators: Sepsis with septic shock due to aspiration pneumonia, QUERY TEXT: Clarification DOCUMENTATION CLARIFICATION REQUEST Please clarify/specify the appropriate diagnosis supported in the clinical indicators below. Clinical Indicators/Risk Factors/Treatment: Date of admission: 02/28/2024 Clinical indicators: H&P by Erasmo Lloyd APRN C.N.P., D.N.P. at 02/28/2024 44 y.o. male patient with history of Macomb-Gastaut syndrome, developmental delay, ALL treated with chemoradiation, hx of lateral medullary stroke at age 12, seizures, who presents for further evaluation and management of acute respiratory failure in the setting of pneumonia (most likely community-acquired)? Vitals: Pulse 103 Temp (!) 35.7 ??C Labs: 02/28/2024 WBC 2.3 02/29/2024 WBC 5.8 03/01/2024 WBC 12.4 Provider documentation: H&P by Erasmo Lloyd APRN C.N.P., D.N.P. at 02/28/2024 # Shock- Currently requiring low-dose norepinephrine for hypotension. PN by Erasmo Lloyd APRN, C.N.P., D.N.P. at 02/29/2024 Patient continues to [...] 03/02/2024 8:33 AM * Documentation Clarification - Gadrenia Gordillo APRN, C.N.PMay, M.S.N. - 03/02/2024 8:21 AM CDT PROVIDER RESPONSE TEXT: To clarify, the appropriate diagnosis supported by the clinical indicators: Respiratory acidosis, QUERY TEXT: Clarification DOCUMENTATION CLARIFICATION REQUEST Please clarify/specify the appropriate diagnosis supported in the clinical indicators below. Clinical Indicators/Risk Factors/Treatment: Date of admission: 02/28/2024 Clinical indicators: H&P by Erasmo Lloyd APRN, C.N.P., D.N.P. at 02/28/2024 44 y.o. male patient with history of Macomb-Gastaut syndrome, developmental delay, ALL treated with chemoradiation, [...] * Documentation Clarification - Gardenia Gordillo APRN C.N.PMay, M.S.N. - 03/02/2024 8:21 AM CDT PROVIDER RESPONSE TEXT: To clarify, the appropriate diagnosis supported by the clinical indicators: Anemia is other chronic disease, QUERY TEXT: Clarification DOCUMENTATION CLARIFICATION REQUEST Please clarify/specify the appropriate diagnosis supported in the clinical indicators below. Clinical Indicators/Risk Factors/Treatment: Date of admission: 02/28/2024 Clinical indicators: H&P by Erasmo Lloyd APRN, C.N.P., D.N.P. at 02/28/2024 44 y.o. male patient [...] 03/02/2024 8:21 AM * Hospital Course - Ross Voss M.D. - 02/28/2024 5:12 PM CDT Say Hilario is a 44 y.o. male patient with history of Macomb-Gastaut syndrome, developmental delay, ALL treated with chemoradiation, hx of lateral medullary stroke at age 12, seizures, who presents to [facility] Intensive [facility] unit via ambulance for further evaluation and management of acute respiratory failure in the setting of pneumonia. Patient presented to [facility] Emergency Department the morning of 02/28/2024 for evaluation of shortness for breath and hypotension. In the past 24 hours, patient has had increased secretions accompanied by lethargy and increased oxygen requirements from 1 L which is his normal at night to 2 L per nasal cannula. Of note, he was admitted on January 01, 2024 for aspiration pneumonia treated with ceftriaxone and doxycycline. Emergency department course Upon his presentation to the emergency department at [place], patient was started on BiPAP for hypoxia. [...] to the medical intensive care unit at [facility] alert, two IVs in place, as well as a Gama catheter with approximately a 1000 cc of clear yellow urine. Medical intensive care unit course In the ICU, patient was transitioned from BiPAP to face mask oxygen. He initially required vasopressor support. He was started on doxycycline and ceftriaxone for community-acquired pneumonia versus aspiration pneumonia. He had a positive lower extremity ultrasound for DVT and was started on Eliquis. CT for PE negative for acute pulmonary embolism but showed bilateral multifocal opacities concerning for community-acquired pneumonia versus aspiration pneumonia. Patient was intubated the evening of 03/01 for concern for secretion clearance. Neurology was also consulted for encephalopathy. CT of the head revealed no structural abnormality. His symptoms were thought to be related to his acute illness and polypharmacy. Patient was also started on Bactrim for St enotrophomonas in the tracheal secretions Due to persistent encephalopathy despite without a clear explanation, EEG was completed which showed changes not unexpected given his Ayaan-Gostout and anti- epileptic medications. MRI of the head was ordered on 03/06 and revealed non- contributory small 5 mm presumed meningioma about the left frontal convexity and stable appearance of presumed small cavernous hemangioma within the right cerebellarhemisphere. On 03/07/24, patient was observed opening his eyes occasionally. Due to concerns for abdominal distention, CT of the abdomen and pelvis was obtained revealing functional ileus. Tube feeds were held. His abdominal distention persisted and an orogastric tube was placed and hooked to low intermittentsuction --a large amount of gastric contents were removed. Abdominal x-ray was performed on 03/[address] abdomen and pelvis was performed on 03/10/2024 and confirmed large abdominal free air with possible defect near the GJ tube. [facility] Chief B service was consulted and Mr. Hilario was taken for exploratory surgery. On 03/10 he underwent right hemicolectomy for cecal perforation, mobilization of gallbladder, bowel was left in discontinuity, packing (quick clot, lap pad), and temporary abdominal closure. Aborted and closed due to coagulapathy. On 03/11 he returned to OR and underwent cholecystectomy, sigmoid colectomy, Ileocolonic anastomosis, End descending colostomy, and 2 abdominal TAMARA drains were placed. His incision was closed. 03/13: plan to wean off pressors was unsuccessful. Neurology recommended changing phenobarbital into another AED as it cause deteriorating in ileus picture. documented in this encounter Plan of Treatment Pending Results Name Type Priority Associated Diagnoses Date/Time Surgical Pathology, Frozen Lab Pathology and Cytology Routine 03/10/2024 3:15 PM CDT Prepare Red Blood Cells, 2 Units Blood Bank STAT 03/08/2024 5:19 AM CDT Bacteria / Christopher Culture, Blood #1 Microbiology STAT 03/10/2024 6:2 5 PM CDT Bacteria / Christopher Culture, Blood #2 Microbiology STAT 03/10/2024 8:2 4 PM CDT Prepare Fresh Frozen Plasma : 4 Units Blood Bank Routine 03/11/2024 2:30 PM CDT Prepare Red Blood Cells, 2 Units Blood Bank Routine 03/08/2024 5:19 AM CDT Prepare Fresh Frozen Plasma : 2 Units Blood Bank Routine 03/12/2024 2:30 AM CDT Prepare Platelets : 1 Units Blood Bank Routine 03/12/2024 4:30 AM CDT Prepare Red Blood Cells, 2 Units Blood Bank STAT 03/08/2024 5:19 AM CDT Surgical Pathology, Frozen Lab Pathology and Cytology Routine Pneumoperitoneum 03/11/2024 3:07 PM CDT Prepare Fresh Frozen Plasma : 1 Units Blood Bank Routine 03/13/2024 4:30 AM CDT Prepare Red Blood Cells, 1 Units Blood Bank Routine 03/12/2024 6:39 PM CDT Prepare Fresh Frozen Plasma : 2 Units Blood Bank Routine 03/13/2024 10:3 0 AM CDT Prepare Pooled Cryoprecipitate : 1 Pools Blood Bank Routine 03/12/2024 6:39 PM CDT Bacterial Culture, Aerobic + Susceptibility, Respiratory Microbiology Routine 03/13/2024 12:29 PM CDT Bacteria / Christopher Culture, Blood #1 Microbiology STAT 03/13/2024 8:3 5 AM CDT Bacteria / Christopher Culture, Blood #2 Microbiology STAT 03/13/2024 8:5 0 AM CDT Scheduled Orders Name Type Priority Associated Diagnoses Order Schedule Pulse oximetry, continuous Intensive Care Unit (ICU) status Respiratory Care Routine respiratory use [id number] sk reminder at 8am and 8pm until discontinued starting 02/28/2024 Adult Oxygen Therapy Continuous (RT) Respiratory Care Routine respiratory use [id number] sk reminder at 8am and 8pm until discontinued starting 02/28/2024, 29 completed Glucose, POCT Point of Care Testing-Docked Device Timed As needed until discontinued starting 02/29/2024 Mechanical Ventilator - Adult; Synchronized Controlled Mandatory Vent (ACV/S-CMV); Respiratory Therapy; 90% - 95%; Respiratory Therapy; 6 Respiratory Care Routine respiratory use only - 0700, 1100, 1500, 1900, 2300 until discontinued starting 03/01/2024, 71 completed Airway Care Respiratory Care Routine respira tory use only - 0800, 2000 until discontinued starting 03/02/2024, 25 completed Surgical Pathology, Frozen Lab Pathology and Cytology Routine Release Upon Ordering for 1 Occurrences starting 03/10/2024 until 03/19/2024 Surgical Pathology, Frozen Lab Pathology and Cytology Routine Pneumoperitoneu m Release Upon Ordering for 1 Occurrences starting 03/11/2024 until 03/20/2024 Bacterial Culture, Aerobic + Susceptibility, Respiratory Microbiology Routine Routine lab collection (next collection) for 1 Occurrences starting 03/13/2024 until 03/13/2024 Bacteria / Christopher Culture, Blood #1 Microbiology STAT STAT for 1 Occurrences starting 03/13/2024 until 03/13/2024 Bacteria / Christopher Culture, Blood #2 Microbiology STAT STAT for 1 Occurrences starting 03/13/2024 until 03/13/2024 Basic Metabolic Panel Lab Routine AM collection: 0405 (default) for 1 Occurrences starting 03/14/2024 until 03/14/2024 Magnesium Lab Routine AM collection: 0405 (default) for 1 Occurrences starting 03/14/2024 until 03/14/2024 Phosphorus Inorganic Lab Routine AM collection: 0405 (default) for 1 Occurrences starting 03/14/2024 until 03/14/2024 Triglycerides Lab Routine AM collecti on: 0405 (default) for 1 Occurrences starting 03/14/2024 until 03/14/2024 CBC without Differential Lab Routine AM collection: 0405 (default) for 1 Occurrences starting 03/14/2024 until 03/14/2024 DX Chest Portable 1 View Imaging RAD - Routine (most inpatients and all outpatients) Once for 1 Occurrences starting 03/14/2024 until 03/14/2024 documented as of this encounter Procedures The patient is currently admitted. The information in this section might not be complete until the patient is discharged. Procedure Name Priority Date/Time Associated Diagnosis Comments PATIENT STATUS, ABG STAT 03/13/2024 1 :37 PM CDT ABG W/COOX STAT 03/13/2024 1:37 PM CDT PREPARE FRESH FROZEN PLASMA Routine 03/13/2024 10:30 AM CDT PATIENT STATUS Timed 03/13/2024 9:28 AM CDT MRSA/STAPHYLOCOCCUS AUREUS, NASAL, BY PCR Routine 03/13/2024 9:28 AM CDT VENOUS BLOOD GAS W/COOX, B Timed 03/13/2024 9:28 AM CDT PATIENT STATUS, ABG [...] ANTI-XA, P Routine 03/13/2024 4:35 AM CDT HEPATIC FUNCTION PANEL, S Routine 03/13/2024 4:35 AM CDT PROTHROMBIN TIME (PT), P Routine 03/13/2024 4:35 AM CDT PHOSPHORUS (INORGANIC), S Routine 03/13/2024 4:35 AM CDT MAGNESIUM, S Routine 03/13/2024 4:35 AM CDT BASIC METABOLIC PANEL, S/P Routine 03/13/2024 4:35 AM CDT CBC WITHOUT DIFFERENTIAL, B Routine 03/13/2024 4:34 AM CDT CALCIUM, IONIZED, S/B Routine 03/13/2024 4:34 AM CDT THROMBOELASTOGRAPH, KAOLIN, B Routine 03/13/2024 4:31 AM CDT PREPARE FRESH FROZEN PLASMA Routine 03/13/2024 4:30 AM CDT CYSTATIN C WITH EGFR Routine 03/13/2024 4:25 AM CDT CORTISOL, S Routine 03/13/2024 4:25 AM CDT MECHANICAL VENTILATOR [...] POCT, B Routine 03/12/2024 9:37 PM CDT ADULT OXYGEN THERAPY Routine 03/12/2024 8:00 PM CDT AIRWAY CARE Routine 03/12/2024 8:00 PM CDT TRANSFUSE RED [...] STATUS, ABG Timed 03/12/2024 11:59 AM CDT ABG W/COOX Timed 03/12/2024 11:59 AM CDT CBC WITHOUT DIFFERENTIAL, B Timed 03/12/2024 11:59 AM CDT BASIC METABOLIC PANEL, S/P Timed 03/12/2024 11:59 AM CDT GLUCOSE POCT, B Routine 03/12/2024 11:58 AM CDT MECHANICAL VENTILATOR Routine 03/12/2024 11:00 AM CDT GLUCOSE POCT, B Routine 03/12/2024 8:51 AM CDT ADULT OXYGEN THERAPY Routine 03/12/2024 8:00 AM CDT AIRWAY CARE Routine 03/12/2024 8:00 AM CDT MECHANICAL VENTILATOR Routine 03/12/2024 7:00 AM CDT DX CHEST PORTABLE 1 VIEW RAD - Routine (most inpatients and all outpatients) 03/12/2024 5:32 AM CDT PREPARE PLATELETS Routine 03/12/2024 4:3 0 AM CDT MECHANICAL VENTILATOR Routine 03/12/2024 3:00 AM CDT THROMBOELASTOGRAPH, KAOLIN, B Routine 03/12/2024 2:55 AM CDT PATIENT STATUS, ABG Routine 03/12/2024 2 :45 AM CDT ABG W/COOX Routine 03/12/2024 2:45 AM CDT CALCIUM, IONIZED, S/B Routine 03/12/2024 2:45 AM CDT CBC WITHOUT DIFFERENTIAL, B Routine 03/12/2024 2:44 AM CDT PHOSPHORUS (INORGANIC), S Routine 03/12/2024 2:44 AM CDT MAGNESIUM, S Routine 03/12/2024 2:44 AM CDT LACTATE, B/P Routine 03/12/2024 2:44 AM CDT BASIC METABOLIC PANEL, S/P Routine 03/12/2024 2:44 AM CDT PREPARE FRESH FROZEN PLASMA Routine 03/12/2024 2:30 AM CDT MECHANICAL VENTILATOR Routine 03/11/2024 11:00 PM CDT GLUCOSE POCT, B Routine 03/11/2024 9:11 PM CDT ADULT OXYGEN THERAPY Routine 03/11/2024 8:00 PM CDT AIRWAY CARE Routine 03/11/2024 8:00 PM CDT MECHANICAL VENTILATOR Routine 03/11/2024 7:00 PM CDT PATIENT STATUS, ABG STAT 03/11/2024 6 :48 PM CDT ABG W/COOX STAT 03/11/2024 6:48 PM CDT CBC WITHOUT DIFFERENTIAL, B STAT 03/11/2024 6:48 PM CDT PHOSPHORUS (INORGANIC), S STAT 03/11/2024 6:48 PM CDT MAGNESIUM, S STAT 03/11/2024 6:48 PM CDT CALCIUM, IONIZED, S/B STAT 03/11/2024 6:48 PM CDT BASIC METABOLIC PANEL, S/P STAT 03/11/2024 6:48 PM CDT THROMBOELASTOGRAPH, KAOLIN, [...] FROZEN PLASMA Routine 03/11/2024 2:30 PM CDT CBC WITHOUT DIFFERENTIAL, B Timed 03/11/2024 2:06 PM CDT LACTATE, B/P Timed 03/11/2024 2:06 PM CDT THROMBOELASTOGRAPH, [place]UL[place], B Timed 03/11/2024 2:05 PM CDT EXPLORATION ABDOMINAL 03/11/2024 1:57 PM CDT Pneumoperitoneum TRANSFUSE FRESH FROZEN PLASMA Routine 03/11/2024 1:57 PM CDT TRANSFUSE RED BLOOD CELLS Routine 03/11/2024 12:07 PM CDT GLUCOSE POCT, B Routine 03/11/2024 11:51 AM CDT MECHANICAL VENTILATOR Routine 03/11/2024 11:00 AM CDT TRANSFUSE FRESH FROZEN PLASMA Routine 03/11/2024 10:33 AM CDT TRANSFUSE RED BLOOD CELLS Routine 03/11/2024 9:12 AM CDT ADULT OXYGEN THERAPY Routine 03/11/2024 8:00 AM CDT AIRWAY CARE Routine 03/11/2024 8:00 AM CDT GLUCOSE POCT, B Routine 03/11/2024 7:34 AM CDT MECHANICAL VENTILATOR Routine 03/11/2024 7:00 AM CDT PATIENT STATUS, ABG Routine 03/11/2024 6 :21 AM CDT ABG W/COOX Routine 03/11/2024 6:21 AM CDT HEPATIC FUNCTION PANEL, S Routine 03/11/2024 6:20 AM CDT CBC WITHOUT DIFFERENTIAL, B Routine 03/11/2024 6:20 AM CDT TRIGLYCERIDES, S Routine 03/11/2024 6:20 AM CDT PHOSPHORUS (INORGANIC), S Routine 03/11/2024 6:20 AM CDT MAGNESIUM, S Routine 03/11/2024 6:20 AM CDT CALCIUM, IONIZED, S/B Routine 03/11/2024 6:20 AM CDT BASIC METABOLIC PANEL, S/P Routine 03/11/2024 6:20 AM CDT THROMBOELASTOGRAPH, KAOLIN, [...] CULTURE, BLOOD STAT 03/10/2024 8:24 PM CDT ADULT OXYGEN THERAPY Routine 03/10/2024 8:00 PM CDT AIRWAY CARE Routine 03/10/2024 8:00 PM CDT TRANSFUSE FRESH FROZEN PLASMA Routine 03/10/2024 7:40 PM CDT MECHANICAL VENTILATOR Routine 03/10/2024 7:00 PM CDT BACTERIA / CHRISTOPHER CULTURE, BLOOD STAT 03/10/2024 6:25 PM CDT PATIENT STATUS, ABG STAT 03/10/2024 6 :13 PM CDT ABG W/COOX STAT 03/10/2024 6:13 PM CDT CALCIUM, IONIZED, S/B STAT 03/10/2024 6:13 PM CDT TROPONIN T, BASELINE, 5TH GEN, P STAT 03/10/2024 6:12 PM CDT HEPATIC FUNCTION PANEL, S STAT 03/10/2024 6:12 PM CDT CBC WITHOUT DIFFERENTIAL, B STAT 03/10/2024 6:12 PM CDT PHOSPHORUS (INORGANIC), S STAT 03/10/2024 6:12 PM CDT MAGNESIUM, S STAT 03/10/2024 6:12 PM CDT LACTATE, B/P STAT 03/10/2024 6:12 PM CDT BASIC METABOLIC PANEL, S/P STAT 03/10/2024 6:12 PM CDT THROMBOELASTOGRAPH, KAOLIN, B STAT 03/10/2024 6:08 PM CDT DX CHEST PORTABLE 1 VIEW RAD - Emergent ([facility]; for the most critically ill patients) 03/10/2024 5:45 PM CDT ECG Routine 03/10/2024 5:37 PM CDT PATIENT STATUS, ABG STAT 03/10/2024 4 :39 PM CDT SODIUM, B STAT 03/10/2024 4:39 PM CDT ABG W/COOX STAT 03/10/2024 4:39 PM CDT POTASSIUM, B STAT 03/10/2024 4:39 PM CDT GLUCOSE, WHOLE BLOOD STAT 03/10/2024 4:39 PM CDT ACTIVATED PARTIAL THROMBOPLASTIN TIME (APTT), P STAT 03/10/2024 4:39 PM CDT PROTHROMBIN TIME (PT), P STAT 03/10/2024 4:39 PM CDT FIBRINOGEN, P STAT 03/10/2024 4:39 PM CDT PLATELETS, B STAT 03/10/2024 4:39 PM CDT CALCIUM, IONIZED, S/B STAT 03/10/2024 4:39 PM CDT TRANSFUSE RED BLOOD CELLS Routine 03/10/2024 4:24 PM CDT TRANSFUSE RED BLOOD CELLS Routine 03/10/2024 3:59 PM CDT PATIENT STATUS, ABG STAT 03/10/2024 3 :25 PM CDT SODIUM, B STAT 03/10/2024 3:25 PM CDT ABG W/COOX STAT 03/10/2024 3:25 PM CDT POTASSIUM, B STAT 03/10/2024 3:25 PM CDT GLUCOSE, WHOLE BLOOD STAT 03/10/2024 3:25 PM CDT CALCIUM, IONIZED, S/B STAT 03/10/2024 3:25 PM CDT MECHANICAL VENTILATOR Routine 03/10/2024 3:00 PM CDT PROTHROMBIN TIME (PT), P STAT 03/10/2024 1:07 PM CDT GLUCOSE POCT, B Routine 03/10/2024 11:38 AM CDT LACTATE, B/P STAT 03/10/2024 11:38 AM CDT MECHANICAL VENTILATOR Routine 03/10/2024 11:[address] ABDOMEN PELVIS WITH IV CONTRAST RAD - Emergent ([facility]; for the most critically ill patients) 03/10/2024 10:13 AM CDT GLUCOSE POCT, B Routine 03/10/2024 8:24 AM CDT ADULT OXYGEN THERAPY Routine 03/10/2024 8:00 AM CDT AIRWAY CARE Routine 03/10/2024 8:00 AM CDT MECHANICAL VENTILATOR [...] POCT, B Routine 03/09/2024 8:38 PM CDT ADULT OXYGEN THERAPY Routine 03/09/2024 8:00 PM CDT AIRWAY CARE Routine 03/09/2024 8:00 PM CDT MECHANICAL VENTILATOR [...] MECHANICAL VENTILATOR Routine 03/09/2024 11:00 AM CDT ADULT OXYGEN THERAPY Routine 03/09/2024 8:00 AM CDT AIRWAY CARE Routine 03/09/2024 8:00 AM CDT GLUCOSE POCT, B Routine 03/09/2024 7:30 AM CDT MECHANICAL VENTILATOR Routine 03/09/2024 7:00 AM CDT CBC WITHOUT DIFFERENTIAL, B Routine 03/09/2024 3:22 AM CDT BASIC METABOLIC PANEL, S/P Routine 03/09/2024 3:22 AM CDT CYSTATIN C WITH EGFR Routine 03/09/2024 3:17 AM CDT MAGNESIUM, S Routine 03/09/2024 3:17 AM CDT MECHANICAL VENTILATOR Routine 03/09/2024 3:00 AM CDT MECHANICAL VENTILATOR Routine 03/08/2024 11:01 PM CDT GLUCOSE POCT, B Routine 03/08/2024 8:37 PM CDT ADULT OXYGEN THERAPY Routine 03/08/2024 8:00 PM CDT AIRWAY CARE Routine 03/08/2024 8:00 PM CDT MECHANICAL VENTILATOR Routine 03/08/2024 7:00 PM CDT GLUCOSE POCT, B Routine 03/08/2024 6:20 PM CDT GLUCOSE POCT, B Routine 03/08/2024 5:10 PM CDT PATIENT STATUS, ABG STAT 03/08/2024 12:19 PM CDT ABG W/O COOX STAT 03/08/2024 12:19 PM CDT GLUCOSE POCT, B Routine 03/08/2024 12:09 PM CDT MECHANICAL VENTILATOR Routine 03/08/2024 11:00 AM CDT ADULT OXYGEN THERAPY Routine 03/08/2024 8:00 AM CDT AIRWAY CARE Routine 03/08/2024 8:00 AM CDT GLUCOSE POCT, [...] POCT, B Routine 03/07/2024 8:33 PM CDT ADULT OXYGEN THERAPY Routine 03/07/2024 8:00 PM CDT AIRWAY CARE Routine 03/07/2024 8:00 PM CDT MECHANICAL VENTILATOR [...] WITH EGFR Routine 03/07/2024 3:45 AM CDT CBC WITHOUT DIFFERENTIAL, B Routine 03/07/2024 3:45 AM CDT CALCIUM, IONIZED, S/B Routine 03/07/2024 3:45 AM CDT BASIC METABOLIC PANEL, S/P Routine 03/07/2024 3:45 AM CDT MECHANICAL VENTILATOR Routine 03/07/2024 3:00 AM CDT MECHANICAL VENTILATOR Routine 03/06/2024 11:01 PM CDT GLUCOSE POCT, B Routine 03/06/2024 8:04 PM CDT ADULT OXYGEN THERAPY Routine 03/06/2024 8:00 PM CDT AIRWAY CARE Routine 03/06/2024 8:00 PM CDT MECHANICAL VENTILATOR Routine 03/06/2024 7:00 PM CDT GLUCOSE POCT, B Routine 03/06/2024 5:46 PM CDT MECHANICAL VENTILATOR Routine 03/06/2024 3:00 PM CDT GLUCOSE POCT, B Routine 03/06/2024 12:10 PM CDT MECHANICAL VENTILATOR Routine 03/06/2024 11:00 AM CDT MR BRAIN WITHOUT IV CONTRAST RAD - Routine (most inpatients and all outpatients) 03/06/2024 10:54 AM CDT CLOBAZAM AND METABOLITE Timed 03/06/2024 8:45 AM CDT RUFINAMIDE, S Timed 03/06/2024 8:45 AM CDT LEVETIRACETAM LEVEL, S Timed 03/06/2024 8:45 AM CDT LAMOTRIGINE LEVEL, S Timed 03/06/2024 8:45 AM CDT GLUCOSE POCT, B Routine 03/06/2024 8:13 AM CDT ADULT OXYGEN THERAPY Routine 03/06/2024 8:00 AM CDT AIRWAY CARE Routine 03/06/2024 8:00 AM CDT EEG ROUTINE [...] MECHANICAL VENTILATOR Routine 03/05/2024 11:00 PM CDT ADULT OXYGEN THERAPY Routine 03/05/2024 8:00 PM CDT AIRWAY CARE Routine 03/05/2024 8:00 PM CDT GLUCOSE POCT, B Routine 03/05/2024 7:35 PM CDT MECHANICAL VENTILATOR Routine 03/05/2024 7:00 PM CDT GLUCOSE POCT, B Routine 03/05/2024 5:32 PM CDT MECHANICAL VENTILATOR Routine 03/05/2024 3:00 PM CDT MECHANICAL VENTILATOR Routine 03/05/2024 11:00 AM CDT ADULT OXYGEN THERAPY Routine 03/05/2024 8:00 AM CDT AIRWAY CARE Routine 03/05/2024 8:00 AM CDT GLUCOSE POCT, B Routine 03/05/2024 7:13 AM CDT MECHANICAL VENTILATOR Routine 03/05/2024 7:00 AM CDT CBC WITHOUT DIFFERENTIAL, B Routine 03/05/2024 5:19 AM CDT PHOSPHORUS (INORGANIC), S Routine 03/05/2024 5:19 AM CDT MAGNESIUM, S Routine 03/05/2024 5:19 AM CDT BASIC METABOLIC PANEL, S/P Routine 03/05/2024 5:19 AM CDT ADULT OXYGEN THERAPY Routine 03/04/2024 8:01 PM CDT AIRWAY CARE Routine 03/04/2024 8:01 PM CDT GLUCOSE POCT, B Routine 03/04/2024 7:48 PM CDT MECHANICAL VENTILATOR Routine 03/04/2024 7:00 PM CDT GLUCOSE POCT, B Routine 03/04/2024 5:25 PM CDT MECHANICAL VENTILATOR Routine 03/04/2024 3:00 PM CDT GLUCOSE POCT, B Routine 03/04/2024 11:46 AM CDT MECHANICAL VENTILATOR Routine 03/04/2024 11:00 AM CDT ADULT OXYGEN THERAPY Routine 03/04/2024 8:01 AM CDT AIRWAY CARE Routine 03/04/2024 8:01 AM CDT GLUCOSE POCT, B Routine 03/04/2024 7:22 AM CDT MECHANICAL VENTILATOR Routine 03/04/2024 7:01 AM CDT CBC WITHOUT DIFFERENTIAL, B Routine 03/04/2024 3:27 AM CDT PHOSPHORUS (INORGANIC), S Routine 03/04/2024 3:27 AM CDT BASIC METABOLIC PANEL, S/P Routine 03/04/2024 3:27 AM CDT MECHANICAL VENTILATOR Routine 03/03/2024 11:00 PM CDT GLUCOSE POCT, B Routine 03/03/2024 8:48 PM CDT ADULT OXYGEN THERAPY Routine 03/03/2024 8:00 PM CDT AIRWAY CARE Routine 03/03/2024 8:00 PM CDT MECHANICAL VENTILATOR Routine 03/03/2024 7:01 PM CDT GLUCOSE POCT, B Routine 03/03/2024 5:23 PM CDT MECHANICAL VENTILATOR Routine 03/03/2024 3:00 PM CDT GLUCOSE POCT, B Routine 03/03/2024 12:23 PM CDT MECHANICAL VENTILATOR Routine 03/03/2024 11:00 AM CDT ADULT OXYGEN THERAPY Routine 03/03/2024 8:00 AM CDT AIRWAY CARE Routine 03/03/2024 8:00 AM CDT GLUCOSE POCT, [...] CATHETER (PICC) Routine 03/02/2024 11:59 AM CDT CLOBAZAM AND METABOLITE Routine 03/02/2024 11:18 AM CDT RUFINAMIDE, S Routine 03/02/2024 11:18 AM CDT FELBAMATE [...] SUSC, RESP Routine 03/02/2024 12:44 AM CDT STREPTOCOCCUS PNEUMONIAE [...] INVASIVE CATHETER Routine 03/01/2024 10:55 PM CDT SC BRONCHOSCOPY W ALVEOLAR LAVAGE Routine 03/01/2024 10:30 [...] CDT Acute Respiratory Failure With Hypoxia (HCC) SC INTUB W ETT Routine 03/01/2024 10:00 PM [...] 02/29/2024 12:22 PM CDT RESPIRATORY PANEL, PCR, NEWS PRODUCTION ASSISTANT Routine 02/29/2024 9:12 AM CDT MRSA/STAPHYLOCOCCUS AUREUS, [...] CDT documented in this encounter Results * Patient Status (03/13/2024 1:37 PM CDT) O2 Flow 0.3 L/min 03/13/2024 1:45 PM CDT STMA Device Vent 03/13/2024 1:45 PM CDT STMA Spont. breaths/min 16 03/13/2024 1:45 PM CDT STMA Blood 03/13/2024 1:37 PM CDT 03/13/2024 1:45 PM CDT Alesha Shi APRN, C.N.P., D.N.P. LAB BLOOD NON ADD-ON [facility] [address] [place] [address], [facility] STMA [facility] [address] [place] [address] * (ABNORMAL) Blood Gas with Coox, Arterial (03/13/2024 1:37 PM CDT) pO2 145(H) 83 - 108 mm Hg [...] APRN, C.N.P., D.N.P. LAB BLOOD NON ADD-ON [facility] [address] [place] [address], [facility] STMA [facility] [address] [place] [address] * Staph aureus / MRSA, Nasal, PCR (03/13/2024 9:28 AM CDT) Staphylococcus aureus, PCR Negative Negative 03/13/2024 11:51 AM CDT DTL MRSA, PCR Negative Negative 03/13/2024 11:51 AM CDT DTL Swab (Nares) 03/13/2024 9:28 AM CDT 03/13/2024 10:12 AM CDT Alesha Shi APRN, C.N.P., D.N.P. LAB MICROBIOLOGY - GENERAL ORDERABLES Performing Organization Address City/[facility]/ZIP Co de Phone Number [facility] [address] [place], [place] [id number] [place] [address] DTL [facility] [address] [place] [address] * Patient Status (03/13/2024 9:28 AM CDT) O2 Flow 30.0 L/min 03/13/2024 9:31 AM CDT STMA Device Vent 03/13/2024 9:31 AM CDT STMA Spont. breaths/min 14 03/13/2024 9:31 AM CDT STMA Blood 03/13/2024 9:28 AM CDT 03/13/2024 9:31 AM CDT Xiao Wheeler APRN, C.N.P., D.N.P. LAB BLOOD NON ADD-ON [facility] [address] [place], [place] [address] STMA [facility] [address] [place] [address] * (ABNORMAL) Blood Gas with Coox, Venous (03/13/2024 9:28 AM CDT) pO2, Venous, B 52 Not applicable mm [...] CDT 03/13/2024 9:31 AM CDT Xiao Wheeler APRN C.N.P., D.N.P. LAB BLOOD NON ADD-ON [facility] [address] [place] [address], [facility] [address] [place] [address] * Patient Status (03/13/2024 9:00 AM CDT) FIO2 0.30 0.21=AIR 03/13/2024 9:0 4 AM CDT STMA Device Vent 03/13/2024 9:0 4 AM CDT STMA Blood 03/13/2024 9:00 AM CDT 03/13/2024 9:04 AM CDT Girish Acevedo APRN.N.P., D.N.P. LAB BLOOD NON ADD-ON [facility] [address] [place] [address], [facility] STMA [facility] [address] [place] [address] * (ABNORMAL) Blood Gas with Coox, Arterial (03/13/2024 9:00 AM CDT) [facility] pO2 131(H) 83 - 108 mm Hg 03/13/2024 9:06 AM CDT STMA pCO2 47 35 - 48 mm Hg 03/13/2024 9:06 AM CDT STMA pH 7.39 7.35 - 7.45 pH 03/13/2024 9:06 AM CDT STMA Base Excess 4(H) -2 - 3 mmol/L 03/13/2024 9:06 AM CDT STMA HCO3 28(H) 22 - 26 mmol/L 03/13/2024 9:06 AM CDT STMA Hemoglobin, B 8.7(L) 13.2 - 16.6 g/dL 03/13/2024 9:06 AM CDT STMA O2Hb 98.0 94.0 - 98.0 % 03/13/2024 9:06 AM CDT STMA COHb 2.2 <3.0 % 03/13/2024 9:06 AM CDT STMA MetHb <1.0 <1.5 % 03/13/2024 9:06 AM CDT STMA CtO2 12.2(L) 18.0 - 21.0 vol % 03/13/2024 9:06 AM CDT STMA Arterial Sample Site Art Line 03/13/2024 9:04 AM CDT STMA Comment:Wilfredo's test not don e. Blood (Blood, Arterial) 03/13/2024 9:00 AM CDT 03/13/2024 9:04 AM CDT Girish Acevedo APRN.N.P., D.N.P. LAB BLOOD NON ADD-ON [facility] [address] [place], [place] [id number] [place] [address] [address] [place] [address] * Lactate (03/13/2024 8:50 AM CDT) Lactate, P 0.6 0.5 - 2.2 mmol/L 03/13/2024 9:07 AM CDT STMA Blood (Blood, Venous) 03/13/2024 8:50 AM CDT 03/13/2024 8:54 AM CDT Alesha Shi APRN, Girish.N.P., D.N.P. LAB BLOOD NON ADD-ON [facility] [address] [place], [place] [phone] [place] [address] [address] [place] [address] * Patient Status (03/13/2024 8:37 AM CDT) Pathologist [facility] FIO2 0.30 0.21=AIR 03/13/2024 8:4 0 AM CDT [facility] 03/13/2024 8:4 0 AM CDT [facility] Blood 03/13/2024 8:37 AM CDT 03/13/2024 8:40 AM CDT Alesha Shi APRN, C.N.P., D.N.P. LAB BLOOD NON ADD-ON [facility] [address] [place], [place] [id number] [place] [address] * (ABNORMAL) Blood Gas with Coox, Venous (03/13/2024 8:37 AM CDT) pO2, Venous, B 112 Not applicable mm Hg 03/13/2024 8:43 AM CDT STMA pCO2, Venous, B 44 41 - 51 mm Hg 03/13/2024 8:43 AM CDT STMA pH, Venous, B 7.38 7.32 - 7.43 pH 024 8:43 AM CDT STMA Base Excess, Venous, B 1 Not applicable mmol/L 03/13/2024 8:43 AM CDT STMA HCO3, Venous, B 25 Not applicable mmol/L 03/13/2024 8:43 AM CDT STMA Hemoglobin, Venous, B 8.8(L) 13.2 - 16.6 g/dL 03/13/2024 8:43 AM CDT STMA O2Hb, Venous, B 95.8 Not applicable % 03/13/2024 8:43 AM CDT STMA COHb, Venous, B 2.1 <3.0 % 03/13/2024 8:43 AM CDT STMA MetHb, Venous, B <1.0 <1.5 % 03/13/2024 8:43 AM CDT STMA CtO2, Venous, B 12.0 Not Applicable vol % 03/13/2024 8:43 AM CDT STMA Sample Site, Venous, B Venipunct 03/13/2024 8:40 AM CDT STMA Blood (Blood, Central Line) 03/13/2024 8:37 AM CDT 03/13/2024 8:40 AM CDT Alesha Shi APRN, C.N.P., D.N.P. LAB BLOOD NON ADD-ON [facility] [address] [place] [address], [facility] [address] [place] [address] * Glucose, POCT (03/13/2024 7:39 AM CDT) [facility] Glucose, POCT, B 118 70 - 140 mg/dL 03/13/2024 7:43 AM CDT PCLX Site ARTLINE 03/13/2024 7:43 AM CDT PCLX Last Intake TPN 03/13/2024 7:43 AM CDT PCLX Blood 03/13/2024 7:39 AM CDT 03/13/2024 7:43 AM CDT Unknown Provider LAB POCT ORDERABLES- MANUAL POC [facility] [address] [place] [address], [place] PCLX [facility] [place] POC [address] [place] [address] * DX Chest Portable 1 View (03/13/2024 5:14 AM CDT) Anatomical Region Laterality Modality Chest, [...] near the superior cavoatrial junction. Subdiaphragmatic enterictube. Tiffanie Cagle APRN C.N.P. IMG [facility]ITA GNOST[facility] IMAGING PROCEDURES * Apixaban, Anti-Xa, P (03/13/2024 4:35 AM CDT) Apixaban, Anti-Xa, P 14 see interpretation ng/mL 03/13/2024 11:59 AM CDT DTL Comment: ----ADDITIONAL INFORMATION---- This test has been modified from the senior finance manager's instructions. Its performance characteristics were determined by [facility] in a manner consistent with CLIA requirements. [...] Belle APRN, C.N.P. LAB BLOOD NON ADD-ON Performing Organization Address City/[facility]/ZIP Co de Phone Number [facility] [address] [place] [address] * (ABNORMAL) Prothrombin Time (PT) (03/13/2024 4:35 AM CDT) Prothrombin Time, P 15.0(H) 9.4 - 12.5 [...] LAB BLOOD ADD-ON Performing Organization Address City/[facility]/ZIP Co de Phone Number [facility] [address] [place] [address] * Phosphorus Inorganic (03/13/2024 4:35 AM CDT) Pathologist [facility] Phosphorus (Inorganic), S 3.5 2.5 - 4.5 mg/dL 03/13/2024 5:31 AM CDT DTL Blood (Blood, Venous) 03/13/2024 4:35 AM CDT 03/13/2024 5:08 AM CDT Neel Hernandez APRNNLuis Fernando LAB BLO OD ADD-ON Performing Organization Address City/[facility]/ZIP Co de Phone Number [facility] [address] [place] [address] * Magnesium (03/13/2024 4:35 AM CDT) Magnesium, S 1.9 1.7 - 2.3 mg/dL 03/13/2024 5:31 AM CDT DTL Blood (Blood, Venous) 03/13/2024 4:35 AM CDT 03/13/2024 5:08 AM CDT Girish Hernandez APRN.N.PMay LAB BLO OD ADD-ON [facility] [address] [place] [address], [facility] DTL [facility] [address] [place] [address] * (ABNORMAL) Hepatic Function Panel (03/13/2024 4:35 AM CDT) Bilirubin, Total, S 0.4 0.0 - 1.2 [...] Girish Hernandez APRN.N.PMay LAB BLO OD ADD-ON [facility] [address] [place] [address], [facility] DTL [facility] [address] [place] [address] * (ABNORMAL) Basic Metabolic Panel (03/13/2024 4:35 AM CDT) Pathologist [facility] Potassium, S 3.8 3.6 - 5.2 mmol/L [...] Cagle APRN, C.N.P. LAB BLO OD ADD-ON [facility] [address] [place] [address], [facility] DTL [facility] [address] [place] [address] * Calcium, Ionized (03/13/2024 4:34 AM CDT) Pathologist [facility] Calcium, Ionized, S 4.81 4.57 - 5.43 mg/dL 03/13/2024 5:19 AM CDT DTL Comment: ----ADDITIONAL INFORMATION---- This test has been modified from the senior finance manager's instructions. Its performance characteristics were determined by [facility] in a manner consistent with CLIA requirements. This test has not been cleared or approved by the U.S. Food and Drug Administration. pH for Ionized Calcium 7.47 7.35 - 7.48 03/13/2024 5:19 AM CDT DTL Blood (Blood, Venous) 03/13/2024 4:34 AM CDT 03/13/2024 5:07 AM CDT Neel Hernandez APRNNMayPMay LAB BLO OD NON ADD-ON [facility] [address] [address], [facility] [address] * (ABNORMAL) CBC without Differential (03/13/2024 4:34 AM CDT) [facility] Hemoglobin 8.3(L) 13.2 - 16.6 g/dL 03/13/2024 [...] 4:34 AM CDT 03/13/2024 4:52 AM CDT Tiffanie H Gurjit BUSTOS, C.N.P. LAB BLO OD ADD-ON Performing Organization Address City/[facility]/ZIP Co de Phone Number [facility] [address] [place] [address], [facility] DTL [facility] [address] [place] [address] * (ABNORMAL) Thromboelastograph, Kaolin, Blood (03/13/2024 4:31 AM CDT) R, Kaolin, TEG 18.2(H) 4.0 - 9.0 [...] 4:31 AM CDT 03/13/2024 4:37 AM CDT Samuel Belle APRN C.N.P. LAB BLOOD NON ADD-ON Performing Organization Address City/[facility]/ZIP Co de Phone Number [facility] [address] [place] [address], [facility] STMA [facility] [address] [place] [address] * Cortisol (03/13/2024 4:25 AM CDT) Cortisol, Random, S 16 mcg/dL 03/13/2024 9:53 AM CDT DTL Comment: ----REFERENCE VALUE---- AM ([id number]): 4.8-20 PM ([id number]): 2.5-12 Blood 03/13/2024 4:25 AM CDT 03/13/2024 9:22 AM CDT Paul Garrett.Keren., R.Ph., [facility] LAB BLOOD ADD-ON Performing Organization Address City/[facility] Co de Phone Number [facility] [address] [facility] 200 [place] [address] * Cystatin C with Estimated GFR (03/13/2024 4:25 AM CDT) Pathologist [facility] eGFR by Cystatin C 91 >60 mL/min/BSA [...] Ph.D. LAB BLOOD ADD-ON Performing Organization Address City/[facility]/ZIP Co de Phone Number [facility] [address] [place] [address], [facility] DTL [facility] [address] [place] [address] * (ABNORMAL) CBC without Differential (03/12/2024 11:55 PM CDT) Hemoglobin 8.4(L) 13.2 - 16.6 g/dL 03/13/2024 12:00 AM CDT STMA Hematocrit 25.2(L) 38.3 - 48.6 % 03/13/2024 12:00 AM CDT STMA Erythrocytes 2.73(L) 4.35 - 5.65 x10(12)/L 03/13/2024 12:00 AM CDT STMA MCV 92.3 78.2 - 97.9 fL 03/13/2024 12:00 AM CDT STMA RBC Distrib Width 17.1(H) 11.8 - 14.5 % 03/13/2024 12:00 AM CDT STMA Platelet Count 204 135 - 317 x10(9)/L 03/13/2024 12:00 AM CDT STMA Leukocytes 8.2 3.4 - 9.6 x10(9)/L 03/13/2024 12:00 AM CDT STMA Blood (Blood, Venous) 03/12/2024 11:55 PM CDT 03/12/2024 11:58 PM CDT Samuel Belle APRN C.N.P. LAB BLOOD ADD- ON [facility] [address] [place] [address], [facility] [address] [place] [address] * (ABNORMAL) Thromboelastograph, Kaolin, Blood (03/12/2024 11:53 PM CDT) R, Kaolin, TEG 30.2(H) 4.0 - 9.0 min 03/13/2024 2:53 AM CDT STMA K, Kaolin, TEG 11.1(H) 1.0 - 1.8 min 03/13/2024 2:53 AM CDT STMA Angle, Kaolin, TEG 19.9(L) 64.0 - 78.1 degrees 03/13/2024 2:53 AM CDT STMA MA, Kaolin, TEG 70.7 57.1 - 72.6 mm 03/13/2024 2:53 AM CDT STMA Ly30, Kaolin, TEG 0.0 0.0 - 4.8 % 03/13/2024 2:53 AM CDT STMA Blood (Blood, Venous) 03/12/2024 11:53 PM CDT 03/12/2024 11:58 PM CDT Samuel Belle APRN, C.N.P. LAB BLOOD NON ADD-ON [facility] [address] [place] [address], [facility] [address] [place] [address] * Transfuse Pooled Cryoprecipitate:Other (Specify); altered TEG; 180 mL/hr (03/12/2024 11:28 PM CDT) Lauren Kennedy M.D. BLOOD TRANSFUSION ORDERABLES * Transfuse Pooled Cryoprecipitate:Other (Specify); altered TEG; 180 mL/hr, 1 Pools (03/12/2024 11:28PM CDT) Lauren Kennedy M.D. BLOOD TRANSFUSION ORDERABLES * Transfuse Fresh Frozen Plasma :Bleeding with altered coagulation; 180 mL/hr (03/12/2024 11:10 PM CDT) Lauren Kennedy M.D. BLOOD TRANSFUSION ORDERABLES * Transfuse Fresh Frozen Plasma :Bleeding with altered coagulation; 180 mL/hr, 2 Units (03/12/2024 11:10 PM CDT) Lauren Kennedy M.D. BLOOD TRANSFUSION ORDERABLES * Transfuse Fresh Frozen Plasma :Bleeding with altered coagulation; 180 mL/hr (03/12/2024 10:19 PM CDT) Lauren Kennedy M.D. BLOOD TRANSFUSION ORDERABLES * Transfuse Red Blood Cells : (03/12/2024 9:40 PM CDT) Greta Figueroa, B.Ch., B.A.O. B LOOD TRANSFUSION ORDERABLES * Transfuse Red Blood Cells : , 1 Units (03/12/2024 9:40 PM CDT) Greta Figueroa, BernieCh., B.A.O. B LOOD TRANSFUSION ORDERABLES * Glucose, POCT (03/12/2024 9:37 PM CDT) Pathologist [facility] Glucose, POCT, B 90 70 - 140 mg/dL 03/12/2024 9:39 PM CDT PCLX Site ARTLINE 03/12/2024 9:39 PM CDT PCLX Last Intake TPN 03/12/2024 9:39 PM CDT PCLX Blood 03/12/2024 9:37 PM CDT 03/12/2024 9:39 PM CDT Unknown Provider LAB POCT ORDERABLES- MANUAL Performing Organization Address City/[facility]/ZIP Co de Phone Number POC [facility] [address] [place] [address], [facility] PCLX [facility] POC [address] [place] [address] * Type and Screen (with Reflex Antibody ID) (03/12/2024 6:39 PM CDT) [facility] ABORh O Pos Not applicable 03/12/2024 7:11 PM CDT STRM Antibody Screen Negative Negative 03/12/2024 7:22 PM CDT STRM Type & Screen Expiration 03/15/2024 23:59 03/12/2024 7:11 PM CDT STRM Testing Location [place] DEFAULT 03/12/2024 6:50 PM CDT STRM Blood (Blood, Venous) 03/12/2024 6:39 PM CDT 03/12/2024 6:50 PM CDT Greta Figueroa, Uzair.Ch., B.A.O. L AB BLOOD BANK TEST ORDERABLES Performing Organization Address City/[facility]/ZIP Co de Phone Number [facility] [address] [place] [address], [facility] STRM [facility] [address] [place] [address] * (ABNORMAL) Thromboelastograph, Kaolin, Blood (03/12/2024 5:18 PM CDT) Pathologist [facility] R, Kaolin, TEG 18.6(H) 4.0 - 9.0 min 03/12/2024 7:16 PM CDT STMA K, Kaolin, TEG 4.9(H) 1.0 - 1.8 min 03/12/2024 7:16 PM CDT STMA Angle, Kaolin, TEG 40.0(L) 64.0 - 78.1 degrees 03/12/2024 7:16 PM CDT STMA MA, Kaolin, TEG 76.1(H) 57.1 - 72.6 mm 03/12/2024 7:16 PM CDT STMA Ly30, Kaolin, TEG 0.0 0.0 - 4.8 % 03/12/2024 7:16 PM CDT STMA Blood (Blood, Venous) 03/12/2024 5:18 PM CDT 03/12/2024 5:22 PM CDT Greta Figueroa, B.Saadia., B.A.O. L AB BLOOD NON ADD-ON [facility] [address] [place] [address], [facility] [address] [place] [address] * (ABNORMAL) CBC without Differential (03/12/2024 5:18 PM CDT) Pathologist [facility] Hemoglobin 7.7(L) 13.2 - 16.6 g/dL 03/12/2024 5:26 PM CDT STMA Hematocrit 23.3(L) 38.3 - 48.6 % 03/12/2024 5:26 PM CDT STMA Erythrocytes 2.48(L) 4.35 - 5.65 x10(12)/L 03/12/2024 5:26 PM CDT STMA MCV 94.0 78.2 - 97.9 fL 03/12/2024 5:26 PM CDT STMA RBC Distrib Width 17.0(H) 11.8 - 14.5 % 03/12/2024 5:26 PM CDT STMA Platelet Count 228 135 - 317 x10(9)/L 03/12/2024 5:26 PM CDT STMA Leukocytes 9.4 3.4 - 9.6 x10(9)/L 03/12/2024 5:26 PM CDT STMA Blood (Blood, Venous) 03/12/2024 5:18 PM CDT 03/12/2024 5:21 PM CDT Greta Figueroa, Uzair.Ch., B.A.O. L AB BLOOD ADD-ON Performing Organization Address City/[facility]/ZIP Co de Phone Number [facility] [address] [place] [address], [facility] STMA [facility] [address] [place] [address] * Glucose, POCT (03/12/2024 5:17 PM CDT) [facility] Glucose, POCT, B 114 70 - 140 mg/dL 03/12/2024 5:20 PM CDT PCLX Site ARTLINE 03/12/2024 5:20 PM CDT PCLX Last Intake TPN 03/12/2024 5:20 PM CDT PCLX Blood 03/12/2024 5:17 PM CDT 03/12/2024 5:20 PM CDT Unknown Provider LAB POCT ORDERABLES- MANUAL POC [facility] [address] [place] [address], [place] PCLX [facility] POC [address] [place] [address] * Transfuse Fresh Frozen Plasma :Bleeding with altered coagulation; 180 mL/hr (03/12/2024 4:46 PM CDT) Greta Figueroa, Uzair.Ch., B.A.O. B LOOD TRANSFUSION ORDERABLES * Transfuse Fresh Frozen Plasma :Bleeding with altered coagulation; 180 mL/hr, 1 Units (03/12/2024 4:46 PM CDT) Greta Figueroa, BCalvin, B.A.O. B LOSANDEEP TRANSFUSION ORDERABLES * (ABNORMAL) Thromboelastograph, Kaolin, Blood (03/12/2024 1:18 PM CDT) R, Kaolin, TEG 10.2(H) 4.0 - 9.0 min 03/12/2024 2:57 PM CDT STMA K, Kaolin, TEG 1.6 1.0 - 1.8 min 03/12/2024 2:57 PM CDT STMA Angle, Kaolin, TEG 68.9 64.0 - 78.1 degrees 03/12/2024 2:57 PM CDT STMA MA, Kaolin, TEG 75.0(H) 57.1 - 72.6 mm 03/12/2024 2:57 PM CDT STMA Ly30, Kaolin, TEG 0.0 0.0 - 4.8 % 03/12/2024 2:57 PM CDT STMA Blood (Blood, Venous) 03/12/2024 1:18 PM CDT 03/12/2024 1:22 PM CDT Neel Hernandez APRNNLuis Fernando LAB BLO OD NON ADD-ON [facility] [address] [place] [address], [facility] [address] [place] [address] * Patient Status (03/12/2024 11:59 AM CDT) FIO2 0.26 0.21=AIR 03/12/2024 12: 04 PM CDT STMA Device VENT 03/12/2024 12: 04 PM CDT STMA Blood 03/12/2024 11:5 9 AM CDT 03/12/2024 12:04 PM CDT Tiffanie H Bausano DIFFUSER OPERATOR, C.NMayPMay LAB BLO OD NON ADD-ON [facility] [address] [place] [address], [facility] STMA [facility] [address] [place] [address] * (ABNORMAL) Basic Metabolic Panel (03/12/2024 11:59 AM CDT) Potassium, P 4.2 3.6 - 5.2 mmol/L 03/12/2024 12:22 PM CDT STMA Sodium, P 137 135 - 145 mmol/L 03/12/2024 12:22 PM CDT STMA Chloride, P 104 98 - 107 mmol/L 03/12/2024 12:22 PM CDT STMA Bicarbonate, P 26 22 - 29 mmol/L 03/12/2024 12:22 PM CDT STMA Anion Gap, P 7 7 - 15 03/12/2024 12:22 PM CDT STMA BUN (Blood Urea Nitrogen), P 18 8 - 24 mg/dL 03/12/2024 12:22 PM CDT STMA Creatinine 0.30(L) 0.74 - 1.35 mg/dL 03/12/2024 12:22 PM CDT STMA Estimated GFR (eGFR) >90 >=60 mL/min/BSA 03/12/2024 12:22 PM CDT STMA Comment: Estimated GFR calculated using the 2020 CKD_EPI creatinine equation. Calcium, Total, P 7.9(L) 8.6 - 10.0 mg/dL 03/12/2024 12:22 PM CDT STMA Glucose, P 152(H) 70 - 140 mg/dL 03/12/2024 12:22 PM CDT STMA Blood (Blood, Venous) 03/12/2024 11:59 AM CDT 03/12/2024 12:05 PM CDT Girish Hernandez APRN.N.PMay LAB BLO OD ADD-ON [facility] [address], [place] [address] [address] [place] [address] * (ABNORMAL) Blood Gas with Coox, Arterial (03/12/2024 11:59 AM CDT) Pathologist [facility] [place] pO2 139(H) 83 - 108 mm Hg 03/12/2024 12:07 PM CDT STMA pCO2 44 35 - 48 mm Hg 03/12/2024 12:07 PM CDT STMA pH 7.37 7.35 - 7.45 pH 03/12/2024 12:07 PM CDT STMA Base Excess 0 -2 - 3 mmol/L 03/12/2024 12:07 PM CDT STMA HCO3 25 22 - 26 mmol/L 03/12/2024 12:07 PM CDT STMA Hemoglobin, B 8.7(L) 13.2 - 16.6 g/dL 03/12/2024 12:07 PM CDT STMA O2Hb 96.7 94.0 - 98.0 % 03/12/2024 12:07 PM CDT STMA COHb 2.2 <3.0 % 03/12/2024 12:07 PM CDT STMA MetHb <1.0 <1.5 % 03/12/2024 12:07 PM CDT STMA CtO2 12.1(L) 18.0 - 21.0 vol % 03/12/2024 12:07 PM CDT STMA Arterial Sample Site Art Line 03/12/2024 12:04 PM CDT STMA Blood (Blood, Arterial) 03/12/2024 11:59 AM CDT 03/12/2024 12:04 PM CDT Tiffanie Cagle APRN C.N.P. LAB BLO OD NON ADD-ON [facility] [address] [place] [address], [facility] [address] [place] [address] * (ABNORMAL) CBC without Differential (03/12/2024 11:59 AM CDT) [facility] Hemoglobin 8.4(L) 13.2 - 16.6 g/dL 03/12/2024 12:07 PM CDT STMA Hematocrit 24.8(L) 38.3 - 48.6 % 03/12/2024 12:07 PM CDT STMA Erythrocytes 2.66(L) 4.35 - 5.65 x10(12)/L 03/12/2024 12:07 PM CDT STMA MCV 93.2 78.2 - 97.9 fL 03/12/2024 12:07 PM CDT STMA RBC Distrib Width 17.0(H) 11.8 - 14.5 % 03/12/2024 12:07 PM CDT STMA Platelet Count 267 135 - 317 x10(9)/L 03/12/2024 12:07 PM CDT STMA Leukocytes 10.8(H) 3.4 - 9.6 x10(9)/L 03/12/2024 12:07 PM CDT STMA Blood (Blood, Venous) 03/12/2024 11:59 AM CDT 03/12/2024 12:05 PM CDT Neel Hernandez APRNNLuis Fernando LAB BLO OD ADD-ON [facility] [address] [place] [address], [place] [address] * (ABNORMAL) Glucose, POCT (03/12/2024 11:58 AM CDT) [facility] Glucose, POCT, B 143(H) 70 - 140 mg/dL 03/12/2024 12:02 PM CDT PCLX Site ARTLINE 03/12/2024 12:02 PM CDT PCLX Last Intake TPN 03/12/2024 12:02 PM CDT PCLX Blood 03/12/2024 11:5 8 AM CDT 03/12/2024 12:02 PM CDT Unknown Provider LAB POCT ORDERABLES- MANUAL POC [facility] [address] [place] [address], [facility] POC [address] [place] [address] * (ABNORMAL) Glucose, POCT (03/12/2024 8:51 AM CDT) Glucose, POCT, B 143(H) 70 - 140 mg/dL 03/12/2024 8:52 AM CDT PCLX Site ARTLINE 03/12/2024 8:52 AM CDT PCLX Last Intake TPN 03/12/2024 8:52 AM CDT PCLX Blood 03/12/2024 8:51 AM CDT 03/12/2024 8:52 AM CDT Unknown Provider LAB POCT ORDERABLES- MANUAL Performing Organization Address [facility] Co de Phone Number POC [facility] [address] [place] [address], [facility] POC [address] [place] [address] * DX Chest Portable 1 View (03/12/2024 5:32 AM CDT) Anatomical Region Laterality Modality Chest, Thoracic RST LOS, Tho racic ARZ LOS, Thoracic FLA LOS N/A Digital Radiography Impressions 03/12/2024 7:42 AM CDT Mild interval worsening since yesterday with decreased lung aeration and increased patchy opacities in both lungs, atelectasis versus consolidation. Pulmonary edema. Right PICC at the mid SVC. Small right pleural effusion. Trace left pleural effusion. Subdiaphragmatic enteric tube. ETT in the mid intrathoracic trachea. Narrative 03/12/2024 7:42 AM CDT EXAM: ??DX CHEST PORTABLE 1 VIEW Procedure Note Mary Moss M.D. - 03/12/2024 EXAM: DX CHEST PORTABLE 1 VIEW IMPRESSION: Mild interval worsening since yesterday with decreased lung aeration andincreased patchy opacities in both lungs, atelectasis versusconsolidation. Pulmonary edema. Right PICC at the mid SVC. Small rightpleural effusion. Trace left pleural effusion. Subdiaphragmatic enteric tube. ETT in the mid intrathoracictrachea. Tiffanie Cagle APRN, C.N.P. IMG QUITA GNOSTIC IMAGING PROCEDURES * (ABNORMAL) Thromboelastograph, Kaolin, Blood (03/12/2024 2:55 AM CDT) R, Kaolin, TEG 8.0 4.0 - 9.0 min 03/12/2024 4:31 AM CDT STMA K, Kaolin, TEG 1.2 1.0 - 1.8 min 03/12/2024 4:31 AM CDT STMA Angle, Kaolin, TEG 72.1 64.0 - 78.1 degrees 03/12/2024 4:31 AM CDT STMA MA, Kaolin, TEG 73.8(H) 57.1 - 72.6 mm 03/12/2024 4:31 AM CDT STMA Ly30, Kaolin, TEG 0.0 0.0 - 4.8 % 03/12/2024 4:31 AM CDT STMA Blood (Blood, Venous) 03/12/2024 2:55 AM CDT 03/12/2024 3:01 AM CDT Samuel Belle APRN, C.N.P. LAB BLOOD NON ADD-ON [facility] [address] [place] [address], [facility] [address] [place] [address] * Calcium, Ionized (03/12/2024 2:45 AM CDT) Calcium, Ionized, B 4.69 4.65 - 5.30 mg/dL 03/12/2024 2:51 AM CDT STMA Blood 03/12/2024 2:45 AM CDT 03/12/2024 2:48 AM CDT Girish Hernandez APRN.N.Bisi LAB BLO OD NON ADD-ON Performing Organization Address City/[facility]/[place] [address] * Patient Status (03/12/2024 2:45 AM CDT) Pathologist [facility] [place] FIO2 0.26 0.21=AIR 03/12/2024 2:4 8 AM CDT STMA Device Vent 03/12/2024 2:4 8 AM CDT STMA Blood 03/12/2024 2:45 AM CDT 03/12/2024 2:48 AM CDT Neel Hernandez APRNN.Bisi LAB BLO OD NON ADD-ON Performing Organization Address [facility] [place] [address] * (ABNORMAL) Blood Gas with Coox, Arterial (03/12/2024 2:45 AM CDT) pO2 79(L) 83 - 108 mm Hg 03/12/2024 2:51 AM CDT STMA pCO2 42 35 - 48 mm Hg 03/12/2024 2:51 AM CDT STMA pH 7.38 7.35 - 7.45 pH 03/12/2024 2:51 AM CDT STMA Base Excess 0 -2 - 3 mmol/L 03/12/2024 2:51 AM CDT STMA HCO3 25 22 - 26 mmol/L 03/12/2024 2:51 AM CDT STMA Hemoglobin, B 9.8(L) 13.2 - 16.6 g/dL 03/12/2024 2:51 AM CDT STMA O2Hb 92.9(L) 94.0 - 98.0 % 03/12/2024 2:51 AM CDT STMA COHb 2.3 <3.0 % 03/12/2024 2:51 AM CDT STMA MetHb <1.0 <1.5 % 03/12/2024 2:51 AM CDT STMA CtO2 12.9(L) 18.0 - 21.0 vol % 03/12/2024 2:51 AM CDT STMA Arterial Sample Site Art Line 03/12/2024 2:48 AM CDT STMA Comment:Wilfredo's test not don e. Blood (Blood, Arterial) 03/12/2024 2:45 AM CDT 03/12/2024 2:48 AM CDT Tiffanie Cagle APRN, C.N.P. LAB BLO OD NON ADD-ON [facility] [address] [place] [address] * Lactate (03/12/2024 2:44 AM CDT) Lactate, P 0.8 0.5 - 2.2 mmol/L 03/12/2024 4:06 AM CDT DTL Blood (Blood, Arterial) 03/12/2024 2:44 AM CDT 03/12/2024 3:46 AM CDT Samuel Tracey Yoshi BUSTOS, C.N.P. LAB BLOOD NON ADD-ON [facility] [address] [place] [address] * (ABNORMAL) Phosphorus Inorganic (03/12/2024 2:44 AM CDT) Phosphorus (Inorganic), S 4.6(H) 2.5 - 4.5 mg/dL 03/12/2024 5:01 AM CDT DTL Blood (Blood, Venous) 03/12/2024 2:44 AM CDT 03/12/2024 3:46 AM CDT Neel Hernandez APRNN.Bisi LAB BLO OD ADD-ON Performing Organization Address City/[facility]/[place] [address] * Magnesium (03/12/2024 2:44 AM CDT) Magnesium, S 2.0 1.7 - 2.3 mg/dL 03/12/2024 5:01 AM CDT DTL Blood (Blood, Venous) 03/12/2024 2:44 AM CDT 03/12/2024 3:46 AM CDT Neel Hernandez APRNNLuis Fernando LAB BLO OD ADD-ON Performing Organization Address City/[facility] Co de Phone Number [facility] [address] [place] [address] * (ABNORMAL) Basic Metabolic Panel (03/12/2024 2:44 AM CDT) Potassium, S 4.5 3.6 - 5.2 mmol/L 03/12/2024 5:01 AM CDT DTL Sodium, S 139 135 - 145 mmol/L 03/12/2024 5:01 AM CDT DTL Chloride, S 105 98 - 107 mmol/L 03/12/2024 5:01 AM CDT DTL Bicarbonate, S 23 22 - 29 mmol/L 03/12/2024 5:01 AM CDT DTL Anion Gap 11 7 - 15 03/12/2024 5:01 AM CDT DTL BUN (Blood Urea Nitrogen), S 18 8 - 24 mg/dL 03/12/2024 5:01 AM CDT DTL Creatinine 0.38(L) 0.74 - 1.35 mg/dL 03/12/2024 5:01 AM CDT DTL Estimated GFR (eGFR) >90 >=60 mL/min/BSA 03/12/2024 5:01 AM CDT DTL Comment: Estimated GFR calculated using the 2020 CKD_EPI creatinine equation. Calcium, Total, S 7.7(L) 8.6 - 10.0 mg/dL 03/12/2024 5:01 AM CDT DTL Glucose, S 117 70 - 140 mg/dL 03/12/2024 5:01 AM CDT DTL Blood (Blood, Venous) 03/12/2024 2:44 AM CDT 03/12/2024 3:46 AM CDT Girish Hernandez APRN.N.PMay LAB BLO OD ADD-ON [facility] [address] [place] [address], [facility] [address] [address] * (ABNORMAL) CBC without Differential (03/12/2024 2:44 AM CDT) [facility] Hemoglobin 9.8(L) 13.2 - 16.6 g/dL 03/12/2024 3:37 AM CDT DTL Hematocrit 29.0(L) 38.3 - 48.6 % 03/12/2024 3:37 AM CDT DTL Erythrocytes 3.17(L) 4.35 - 5.65 x10(12)/L 03/12/2024 3:37 AM CDT DTL MCV 91.5 78.2 - 97.9 fL 03/12/2024 3:37 AM CDT DTL RBC Distrib Width 17.2(H) 11.8 - 14.5 % 03/12/2024 3:37 AM CDT DTL Platelet Count 257 135 - 317 x10(9)/L 03/12/2024 3:37 AM CDT DTL Leukocytes 10.1(H) 3.4 - 9.6 x10(9)/L 03/12/2024 3:37 AM CDT DTL Blood (Blood, Venous) 03/12/2024 2:44 AM CDT 03/12/2024 3:31 AM CDT Tiffanie Cagle APRN C.N.P. LAB BLO OD ADD-ON [facility] [address] [place] [address], [facility] DTL [facility] [address] [place] [address] * Glucose, POCT (03/11/2024 9:11 PM CDT) [facility] Glucose, POCT, B 110 70 - 140 mg/dL 03/11/2024 9:13 PM CDT PCLX Site ARTLINE 03/11/2024 9:13 PM CDT PCLX Last Intake TPN 03/11/2024 9:13 PM CDT PCLX Blood 03/11/2024 9:11 PM CDT 03/11/2024 9:13 PM CDT Unknown Provider LAB POCT ORDERABLES- MANUAL POC [facility] [address] [place], [place] [id number] [place] [address] [facility] POC [address] [place] [address] * Calcium, Ionized (03/11/2024 6:48 PM CDT) [facility] Calcium, Ionized, B 4.74 4.65 - 5.30 mg/dL 03/11/2024 6:58 PM CDT STMA Blood (Blood, Venous) 03/11/2024 6:48 PM CDT 03/11/2024 6:53 PM CDT Samuel Belle APRN C.N.P. LAB BLOOD NON ADD-ON [facility] [address] [place], [place] [id number] [place] [address] STMA [facility] [address] [place] [address] * (ABNORMAL) Phosphorus Inorganic (03/11/2024 6:48 PM CDT) [facility] Phosphorus (Inorganic), S 4.6(H) 2.5 - 4.5 mg/dL 03/11/2024 7:57 PM CDT DTL Blood (Blood, Venous) 03/11/2024 6:48 PM CDT 03/11/2024 7:44 PM CDT Girish Esparza APRN.N.P. LAB BLOOD ADD- ON Performing Organization Address [facility] Co de Phone Number [facility] [address] [place] [address], [facility] [address] [place] [address] * Magnesium (03/11/2024 6:48 PM CDT) [facility] Magnesium, S 1.7 1.7 - 2.3 mg/dL 03/11/2024 7:57 PM CDT DTL Blood (Blood, Venous) 03/11/2024 6:48 PM CDT 03/11/2024 7:44 PM CDT Samuel Belle APRN, Girish.N.P. LAB BLOOD ADD- ON Performing Organization Address [facility] de Phone Number [facility] [address] [place] [address], [address] [address] * Patient Status (03/11/2024 6:48 PM CDT) [facility] FIO2 0.30 0.21=AIR 03/11/2024 6:53 PM CDT STMA Device Vent 03/11/2024 6:53 PM CDT STMA Spont. breaths/min 17 03/11/2024 6:53 PM CDT STMA Blood 03/11/2024 6:48 PM CDT 03/11/2024 6:53 PM CDT Girish Hernandez APRN.N.P. LAB BLO OD NON ADD-ON [facility] [address] [place] [address], [facility] [address] [place] [address] * (ABNORMAL) Basic Metabolic Panel (03/11/2024 6:48 PM CDT) Potassium, P 4.0 3.6 - 5.2 mmol/L 03/11/2024 7:11 PM CDT STMA Sodium, P 141 135 - 145 mmol/L 03/11/2024 7:11 PM CDT STMA Chloride, P 105 98 - 107 mmol/L 03/11/2024 7:11 PM CDT STMA Bicarbonate, P 27 22 - 29 mmol/L 03/11/2024 7:11 PM CDT STMA Anion Gap, P 9 7 - 15 03/11/2024 7:11 PM CDT STMA BUN (Blood Urea Nitrogen), P 22 8 - 24 mg/dL 03/11/2024 7:11 PM CDT STMA Creatinine 0.34(L) 0.74 - 1.35 mg/dL 03/11/2024 7:11 PM CDT STMA Estimated GFR (eGFR) >90 >=60 mL/min/BSA 03/11/2024 7:11 PM CDT STMA Comment: Estimated GFR calculated using the 2020 CKD_EPI creatinine equation. Calcium, Total, P 8.1(L) 8.6 - 10.0 mg/dL 03/11/2024 7:11 PM CDT STMA Glucose, P 128 70 - 140 mg/dL 03/11/2024 7:11 PM CDT STMA Blood (Blood, Venous) 03/11/2024 6:48 PM CDT 03/11/2024 6:53 PM CDT Tiffanie Cagle APRN C.N.PMay LAB BLO OD ADD-ON [facility] [address] [place] [address], [place] [facility] [address] [place] [address] * (ABNORMAL) Blood Gas with Coox, Arterial (03/11/2024 6:48 PM CDT) pO2 132(H) 83 - 108 mm Hg 03/11/2024 6:57 PM CDT STMA pCO2 48 35 - 48 mm Hg 03/11/2024 6:57 PM CDT STMA pH 7.36 7.35 - 7.45 pH 03/11/2024 6:57 PM CDT STMA Base Excess 2 -2 - 3 mmol/L 03/11/2024 6:57 PM CDT STMA HCO3 27(H) 22 - 26 mmol/L 03/11/2024 6:57 PM CDT STMA Hemoglobin, B 10.2(L) 13.2 - 16.6 g/dL 03/11/2024 6:57 PM CDT STMA O2Hb 97.4 94.0 - 98.0 % 03/11/2024 6:57 PM CDT STMA COHb 2.1 <3.0 % 03/11/2024 6:57 PM CDT STMA MetHb <1.0 <1.5 % 03/11/2024 6:57 PM CDT STMA CtO2 14.2(L) 18.0 - 21.0 vol % 03/11/2024 6:57 PM CDT STMA Arterial Sample Site Art Line 03/11/2024 6:53 PM CDT STMA Comment:Wilfredo's test not don e. Blood (Blood, Arterial) 03/11/2024 6:48 PM CDT 03/11/2024 6:53 PM CDT Tiffanie Cagle APRN C.N.P. LAB BLO OD NON ADD-ON [facility] [address] [place] [address], [facility] [address] [place] [address] * (ABNORMAL) CBC without Differential (03/11/2024 6:48 PM CDT) Pathologist [facility] [place] Hemoglobin 10.0(L) 13.2 - 16.6 g/dL 03/11/2024 6:56 PM CDT STMA Hematocrit 29.2(L) 38.3 - 48.6 % 03/11/2024 6:56 PM CDT STMA Erythrocytes 3.16(L) 4.35 - 5.65 x10(12)/L 03/11/2024 6:56 PM CDT STMA MCV 92.4 78.2 - 97.9 fL 03/11/2024 6:56 PM CDT STMA RBC Distrib Width 16.6(H) 11.8 - 14.5 % 03/11/2024 6:56 PM CDT STMA Platelet Count 228 135 - 317 x10(9)/L 03/11/2024 6:56 PM CDT STMA Leukocytes 9.6 3.4 - 9.6 x10(9)/L 03/11/2024 6:56 PM CDT STMA Blood (Blood, Venous) 03/11/2024 6:48 PM CDT 03/11/2024 6:53 PM CDT Neel Hernandez APRNNLuis Fernando LAB BLO OD ADD-ON [address] [address], [address] [address] * Thromboelastograph, Kaolin, Blood (03/11/2024 6:45 PM CDT) R, Kaolin, TEG 7.8 4.0 - 9.0 min 03/11/2024 7:45 PM CDT STMA K, Kaolin, TEG 1.4 1.0 - 1.8 min 03/11/2024 7:45 PM CDT STMA Angle, Kaolin, TEG 68.1 64.0 - 78.1 degrees 03/11/2024 7:45 PM CDT STMA MA, Kaolin, TEG 71.8 57.1 - 72.6 mm 03/11/2024 7:45 PM CDT STMA Ly30, Kaolin, TEG 0.0 0.0 - 4.8 % 03/11/2024 7:45 PM CDT STMA Blood (Blood, Venous) 03/11/2024 6:45 PM CDT 03/11/2024 6:50 PM CDT Tiffanie Cagle APRN, C.N.P. LAB BLO OD NON ADD-ON [facility] [address] [place] [address], [facility] STMA [facility] [address] [place] [address] * DX Abdomen Portable Anterior Posterior 1 View (03/11/2024 6:12 PM CDT) Anatomical Region Laterality Modality Abdomen, [...] IMTayla DIAGNOSTIC RAVI GING PROCEDURES * Transfuse Fresh Frozen Plasma :Bleeding with altered coagulation; 180 mL/hr (03/11/2024 6:11 PM CDT) Tiffanie Cagle APRN, C.N.P. BLOOD T RANSFUSION ORDERABLES * Transfuse Fresh Frozen Plasma :Bleeding with altered coagulation; 180 mL/hr, 2 Units (03/11/2024 6:11 PM CDT) Tiffanie Cagle APRN, C.N.P. BLOOD T RANSFUSION ORDERABLES * (ABNORMAL) CBC without Differential (03/11/2024 4:28 PM CDT) Hemoglobin 8.7(L) 13.2 - 16.6 g/dL 03/11/2024 4:30 PM CDT STMA Hematocrit 25.1(L) 38.3 - 48.6 % 03/11/2024 4:30 PM CDT STMA Erythrocytes 2.71(L) 4.35 - 5.65 x10(12)/L 03/11/2024 4:30 PM CDT STMA MCV 92.6 78.2 - 97.9 fL 03/11/2024 4:30 PM CDT STMA RBC Distrib Width 16.5(H) 11.8 - 14.5 % 03/11/2024 4:30 PM CDT STMA Platelet Count 183 135 - 317 x10(9)/L 03/11/2024 4:30 PM CDT STMA Leukocytes 10.5(H) 3.4 - 9.6 x10(9)/L 03/11/2024 4:30 PM CDT STMA Blood (Blood, Arterial Line) 03/11/2024 4:28 PM CDT 03/11/2024 4:28 PM CDT Devin Goznales M.D. LAB BLOOD ADD-ON [facility] [address] [place] [address], [facility] [address] [place] [address] * Transfuse Red Blood Cells : (03/11/2024 3:52 PM CDT) Devin Gonzales M.D. BLOOD TRANSFUSION OR DERABLES * Transfuse Platelets :Active bleed with anti-PLT therapies; 180 mL/hr; No Special Requirements (03/11/2024 3:34 PM CDT) Tiffanie Cagle APRN, C.N.P. BLOOD T RANSFUSION ORDERABLES * Transfuse Platelets :Active bleed with anti-PLT therapies; 180 mL/hr; No Special Requirements, 1 Units (03/11/2024 3:34 PM CDT) Neel Hernandez APRNN.P. BLOOD T RANSFUSION ORDERABLES * Lactate (03/11/2024 2:06 PM CDT) Pathologist [facility] [place] Lactate, P 1.0 0.5 - 2.2 mmol/L 03/11/2024 2:22 PM CDT STMA Blood (Blood, Venous) 03/11/2024 2:06 PM CDT 03/11/2024 2:10 PM CDT Neel Hernandez APRNN.PMay LAB BLO OD NON ADD-ON [facility] [address] [place] [address], [facility] [address] [place] [address] * (ABNORMAL) CBC without Differential (03/11/2024 2:06 PM CDT) Pathologist [facility] Hemoglobin 7.9(L) 13.2 - 16.6 g/dL 03/11/2024 2:12 PM CDT STMA Hematocrit 23.4(L) 38.3 - 48.6 % 03/11/2024 2:12 PM CDT STMA Erythrocytes 2.48(L) 4.35 - 5.65 x10(12)/L 03/11/2024 2:12 PM CDT STMA MCV 94.4 78.2 - 97.9 fL 03/11/2024 2:12 PM CDT STMA RBC Distrib Width 17.2(H) 11.8 - 14.5 % 03/11/2024 2:12 PM CDT STMA Platelet Count 147 135 - 317 x10(9)/L 03/11/2024 2:12 PM CDT STMA Leukocytes 8.0 3.4 - 9.6 x10(9)/L 03/11/2024 2:12 PM CDT STMA Blood (Blood, Venous) 03/11/2024 2:06 PM CDT 03/11/2024 2:10 PM CDT Neel Hernandez APRNNLuis Fernando LAB BLO OD ADD-ON Performing Organization Address [facility] Co de Phone Number [facility] [address] [place] [address], [facility] [address] [place] [address] * (ABNORMAL) Thromboelastograph, Kaolin, Blood (03/11/2024 2:05 PM CDT) R, Kaolin, TEG 9.2(H) 4.0 - 9.0 min 03/11/2024 3:22 PM CDT STMA K, Kaolin, TEG 1.8 1.0 - 1.8 min 03/11/2024 3:22 PM CDT STMA Angle, Kaolin, TEG 65.8 64.0 - 78.1 degrees 03/11/2024 3:22 PM CDT STMA MA, Kaolin, TEG 71.7 57.1 - 72.6 mm 03/11/2024 3:22 PM CDT STMA Ly30, Kaolin, TEG 0.0 0.0 - 4.8 % 03/11/2024 3:22 PM CDT STMA Blood (Blood, Venous) 03/11/2024 2:05 PM CDT 03/11/2024 2:10 PM CDT Neel Hernandez APRNNLuis Fernando LAB BLO OD NON ADD-ON Performing Organization Address City/[facility]/ZIP Co de Phone Number [facility] [address] [place] [address], [facility] [address] [place] [address] * Transfuse Red Blood Cells : (03/11/2024 1:12 PM CDT) Neel Hernandez APRNNLuis Fernando BLOOD T RANSFUSION ORDERABLES * Transfuse Red Blood Cells : , 2 Units (03/11/2024 1:12 PM CDT) Tiffanie Cagle APRN, C.N.P. BLOOD T RANSFUSION ORDERABLES * (ABNORMAL) Glucose, POCT (03/11/2024 11:51 AM CDT) Glucose, POCT, B 147(H) 70 - 140 mg/dL 03/11/2024 11:53 AM CDT PCLX Site Capillary 03/11/2024 11:53 AM CDT PCLX Blood 03/11/2024 11:5 1 AM CDT 03/11/2024 11:53 AM CDT Unknown Provider LAB POCT ORDERABLES- MANUAL Performing Organization Address City/[facility]/ZIP Co de Phone Number POC [facility] [address] [place] [address], [facility] P[facility] POC [address] [place] [address] * Transfuse Fresh Frozen Plasma :Bleeding with altered coagulation; 180 mL/hr (03/11/2024 11:24 AM CDT) Tiffanie Cagle APRN, C.N.P. BLOOD T RANSFUSION ORDERABLES * Transfuse Red Blood Cells : (03/11/2024 10:03 AM CDT) Tiffanie Cagle APRN, C.N.P. BLOOD T RANSFUSION ORDERABLES * (ABNORMAL) Glucose, POCT (03/11/2024 7:34 AM CDT) Glucose, POCT, B 145(H) 70 - 140 mg/dL 03/11/2024 7:37 AM CDT PCLX Site Capillary 03/11/2024 7:37 AM CDT PCLX Blood 03/11/2024 7:34 AM CDT 03/11/2024 7:37 AM CDT Unknown Provider LAB POCT ORDERABLES- MANUAL Performing Organization Address City/[facility]/ZIP Co de Phone Number POC [facility] [address] [place] [address], [facility] POC [address] [place] [address] * Patient Status (03/11/2024 6:21 AM CDT) FIO2 0.30 0.21=AIR 03/11/2024 6:2 7 AM CDT STMA Device Vent 03/11/2024 6:2 7 AM CDT STMA Blood 03/11/2024 6:21 AM CDT 03/11/2024 6:27 AM CDT Samuel Belle APRN C.N.PMay LAB BLOOD NON ADD-ON [facility] [address] [place] [address], [facility] [address] [place] [address] * (ABNORMAL) Blood Gas with Coox, Arterial (03/11/2024 6:21 AM CDT) pO2 122(H) 83 - 108 mm Hg 03/11/2024 6:27 AM CDT STMA pCO2 45 35 - 48 mm Hg 03/11/2024 6:27 AM CDT STMA pH 7.40 7.35 - 7.45 pH 03/11/2024 6:27 AM CDT STMA Base Excess 3 -2 - 3 mmol/L 03/11/2024 6:27 AM CDT STMA HCO3 28(H) 22 - 26 mmol/L 03/11/2024 6:27 AM CDT [facility] Hemoglobin, B 6.2(L) 13.2 - 16.6 g/dL 03/11/2024 6:27 AM CDT [facility] O2Hb 96.9 94.0 - 98.0 % 03/11/2024 6:27 AM CDT [facility] COHb 1.7 <3.0 % 03/11/2024 6:27 AM CDT [facility] MetHb <1.0 <1.5 % 03/11/2024 6:27 AM CDT [facility] CtO2 8.7(L) 18.0 - 21.0 vol % 03/11/2024 6:27 AM CDT [facility] Arterial Sample Site Art Line 03/11/2024 6:27 AM CDT [facility] Comment:Wilfredo's test not don e. Blood (Blood, Arterial) 03/11/2024 6:21 AM CDT 03/11/2024 6:27 AM CDT Girish Esparza APRN.N.P. LAB BLOOD NON ADD-ON [facility] [address] [place] [address] * Phosphorus Inorganic (03/11/2024 6:20 AM CDT) Phosphorus (Inorganic), S 3.1 2.5 - 4.5 mg/dL 03/11/2024 7:51 AM CDT DTL Blood (Blood, Venous) 03/11/2024 6:20 AM CDT 03/11/2024 7:30 AM CDT Samuel Belle APRN, C.N.P. LAB BLOOD ADD- ON Performing Organization Address City/[facility]/ZIP Co de Phone Number [facility] [address] [place], [place] [id number] [place] [address] [address] [place] [address] * Magnesium (03/11/2024 6:20 AM CDT) Magnesium, S 2.0 1.7 - 2.3 mg/dL 03/11/2024 7:51 AM CDT DTL Blood (Blood, Venous) 03/11/2024 6:20 AM CDT 03/11/2024 7:30 AM CDT Samuel Belle APRN, Girish.N.P. LAB BLOOD ADD- ON [facility] [address] [place] [address], [facility] DTL [facility] [address] * Calcium, Ionized (03/11/2024 6:20 AM CDT) Calcium, Ionized, S 4.93 4.57 - 5.43 mg/dL 03/11/2024 7:48 AM CDT DTL Comment: ----ADDITIONAL INFORMATION---- This test has been modified from the senior finance manager's instructions. Its performance characteristics were determined by [facility] in a manner consistent with CLIA requirements. This test has not been cleared or approved by the U.S. Food and Drug Administration. pH for Ionized Calcium 7.46 7.35 - 7.48 03/11/2024 7:48 AM CDT DTL Blood (Blood, Venous) 03/11/2024 6:20 AM CDT 03/11/2024 7:32 AM CDT Samuel Belle APRN, C.N.P. LAB BLOOD NON ADD-ON [facility] - [address] [address], [facility] [address] [place] [address] * (ABNORMAL) Hepatic Function Panel (03/11/2024 6:20 AM CDT) Bilirubin, Total, S 0.3 0.0 - 1.2 mg/dL 03/11/2024 7:51 AM CDT DTL Bilirubin, Direct, S <0.2 0.0 - 0.3 mg/dL 03/11/2024 7:51 AM CDT DTL Aspartate Aminotransferase (AST), S 93(H) 8 - 48 U/L 03/11/2024 7:51 AM CDT DTL Alanine Aminotransferase (ALT), S 44 7 - 55 U/L 03/11/2024 7:51 AM CDT DTL Alkaline Phosphatase, S 100 40 - 129 U/L 03/11/2024 7:51 AM CDT DTL Albumin, S 3.3(L) 3.5 - 5.0 g/dL 03/11/2024 7:51 AM CDT DTL Protein, Total, S 5.3(L) 6.3 - 7.9 g/dL 03/11/2024 7:51 AM CDT DTL Blood (Blood, Venous) 03/11/2024 6:20 AM CDT 03/11/2024 7:30 AM CDT Samuel Belle APRN C.N.P. LAB BLOOD ADD- ON Performing Organization Address City/[facility]/ZIP Co de Phone Number [facility] [address] [place] [address], [facility] DTL [facility] [address] [place] [address] * (ABNORMAL) CBC without Differential (03/11/2024 6:20 AM CDT) Hemoglobin 6.1(L) 13.2 - 16.6 g/dL 03/11/2024 7:58 AM CDT [facility] Hematocrit 18.4(L) 38.3 - 48.6 % 03/11/2024 7:58 AM CDT [facility] Erythrocytes 1.84(L) 4.35 - 5.65 x10(12)/L 03/11/2024 7:58 AM CDT [facility] MCV 100.0(H) 78.2 - 97.9 fL 03/11/2024 7:58 AM CDT [facility] RBC Distrib Width 15.7(H) 11.8 - 14.5 % 03/11/2024 7:58 AM CDT [facility] Platelet Count 179 135 - 317 x10(9)/L 03/11/2024 7:58 AM CDT DHPM Leukocytes 8.4 3.4 - 9.6 x10(9)/L 03/11/2024 7:58 AM CDT DHPM Blood (Blood, Venous) 03/11/2024 6:20 AM CDT 03/11/2024 7:14 AM CDT Samuel Belle APRN, C.N.P. LAB BLOOD ADD- ON [facility] [address] [place] [address], [facility] [address] [place] [address] * (ABNORMAL) Basic Metabolic Panel (03/11/2024 6:20 AM CDT) Pathologist [facility] [place] Potassium, S 4.4 3.6 - 5.2 mmol/L 03/11/2024 7:51 AM CDT DTL Sodium, S 140 135 - 145 mmol/L 03/11/2024 7:51 AM CDT DTL Chloride, S 105 98 - 107 mmol/L 03/11/2024 7:51 AM CDT DTL Bicarbonate, S 27 22 - 29 mmol/L 03/11/2024 7:51 AM CDT DTL Anion Gap 8 7 - 15 03/11/2024 7:51 AM CDT DTL BUN (Blood Urea Nitrogen), S 18 8 - 24 mg/dL 03/11/2024 7:51 AM CDT DTL Creatinine 0.43(L) 0.74 - 1.35 mg/dL 03/11/2024 7:51 AM CDT DTL Estimated GFR (eGFR) >90 >=60 mL/min/BSA 03/11/2024 7:51 AM CDT DTL Comment: Estimated GFR calculated using the 2020 CKD_EPI creatinine equation. Calcium, Total, S 8.5(L) 8.6 - 10.0 mg/dL 03/11/2024 7:51 AM CDT DTL Glucose, S 135 70 - 140 mg/dL 03/11/2024 7:51 AM CDT DTL Blood (Blood, Venous) 03/11/2024 6:20 AM CDT 03/11/2024 7:30 AM CDT Samuel Belle APRN, C.N.P. LAB BLOOD ADD- ON [facility] [address] [place] [address], [facility] [address] [place] [address] * Triglycerides (03/11/2024 6:20 AM CDT) Pathologist [facility] [place] Triglycerides 75 mg/dL 03/11/2024 7:50 AM CDT DTL Comment: ----REFERENCE VALUE---- Normal: <150 mg/dL Borderline High: 150-199 mg/dL High: 200-499 mg/dL Very High: > or =500 mg/dL Fasting (8 HR or more) Unknown 03/11/2024 6:21 AM CDT DTL Blood (Blood, Venous) 03/11/2024 6:20 AM CDT 03/11/2024 7:30 AM CDT Rufus BrownS. LAB BLOOD ADD-O N Performing Organization Address [facility] Co de Phone Number [facility] [address] [place] [address], [facility] [address] [place] [address] * (ABNORMAL) Thromboelastograph, Kaolin, Blood (03/11/2024 6:18 AM CDT) R, Kaolin, TEG 14.0(H) 4.0 - 9.0 min 03/11/2024 7:50 AM CDT STMA K, Kaolin, TEG 3.3(H) 1.0 - 1.8 min 03/11/2024 7:50 AM CDT STMA Angle, Kaolin, TEG 53.2(L) 64.0 - 78.1 degrees 03/11/2024 7:50 AM CDT ST[facility] MA, Kaolin, TEG 78.0(H) 57.1 - 72.6 mm 03/11/2024 7:50 AM CDT STMA Ly30, Kaolin, TEG 0.0 0.0 - 4.8 % 03/11/2024 7:50 AM CDT STMA Blood (Blood, Venous) 03/11/2024 6:18 AM CDT 03/11/2024 6:22 AM CDT Savannah FigueroaBMaySMay LAB BLOOD NON ADD-O N Performing Organization Address City/[facility]/ZIP Co de Phone Number [facility] [address] [place] [address], [facility] [place] [address] [place] [address] * DX Chest Portable 1 View (03/11/2024 5:40 AM CDT) Anatomical Region Laterality Modality Chest, Thoracic RST LOS, Tho racic ARZ LOS, Thoracic FLA LOS N/A Digital Radiography Impressions 03/11/2024 7:33 AM CDT New patchy opacities in both lungs particularly in the lower lobes and perihilar regions, may represent atelectasis versus consolidations. Trace bilateral pleural effusions. Mild pulmonary edema. ETT 3 cm above the lauro. Right PICC at the low SVC. Subdiaphragmatic enteric tube. Prominent cardiomediastinal silhouette. Narrative 03/11/2024 7:33 AM CDT EXAM: ??DX CHEST PORTABLE 1 VIEW Procedure Note Mary Moss M.D. - 03/11/2024 EXAM: DX CHEST PORTABLE 1 VIEW IMPRESSION: New patchy opacities in both lungs particularly in the lower lobes andperihilar regions, may represent atelectasis versus consolidations. Tracebilateral pleural effusions. Mild pulmonary edema. ETT 3 cm above the lauro. Right PICC at the low SVC. Subdiaphragmaticenteric tube. Prominent cardiomediastinal silhouette. Samuel Belle APRN C.NMayPMay IMG DIAGNOSTIC IMAGING PROCEDURES * Transfuse Fresh Frozen Plasma :Hemorrhagic Shock; 180 mL/hr (03/11/2024 5:37 AM CDT) David Pandya M.D. BLOOD TRANSFUSION OR DERABLES * Transfuse Fresh Frozen Plasma :Hemorrhagic Shock; 180 mL/hr, 4 Units (03/11/2024 5:37 AM CDT) David Pandya M.D. BLOOD TRANSFUSION OR DERABLES * Transfuse Fresh Frozen Plasma :Hemorrhagic Shock; 180 mL/hr (03/11/2024 1:46 AM CDT) David Pandya M.D. BLOOD TRANSFUSION OR DERABLES * Transfuse Fresh Frozen Plasma :Hemorrhagic Shock; 180 mL/hr (03/10/2024 11:49 PM CDT) David Pandya M.D. BLOOD TRANSFUSION OR DERABLES * Transfuse Fresh Frozen Plasma :Hemorrhagic Shock; 180 mL/hr (03/10/2024 9:54 PM CDT) David Pandya M.D. BLOOD TRANSFUSION OR DERABLES * (ABNORMAL) Glucose, POCT (03/10/2024 9:25 PM CDT) Glucose, POCT, B 168(H) 70 - 140 mg/dL 03/10/2024 9:27 PM CDT PCLX Site ARTLINE 03/10/2024 9:27 PM CDT PCLX Last Intake NPO 03/10/2024 9:27 PM CDT PCLX Blood 03/10/2024 9:25 PM CDT 03/10/2024 9:27 PM CDT Unknown Provider LAB POCT ORDERABLES- MANUAL Performing Organization Address City/State/[facility] Co de Phone Number POC [facility] [address] [place] [address], [facility] PCLX [facility] [address] [place] [address] * (ABNORMAL) Troponin T, 2 Hour with [...] Wheeler APRN, C.N.P., D.N.P. LAB BLOOD TROPONIN [facility] [address] [place], [place] [address] [address] [place] [address] * Patient Status (03/10/2024 6:13 PM CDT) Pathologist [facility] [place] FIO2 0.40 0.21=AIR 03/10/2024 6:18 PM CDT STMA Device Vent 03/10/2024 6:18 PM CDT ST[facility] Spont. breaths/min 15 03/10/2024 6:18 PM CDT [facility] Blood 03/10/2024 6:13 PM CDT 03/10/2024 6:18 PM CDT Xiao Wheeler APRN, Girish.N.P., D.N.P. LAB BLOOD NON ADD-ON Performing Organization Address City/[facility]/ZIP Co de Phone Number [facility] [address] [place], [place] [id number] [place] [address] [address] [place] [address] * Calcium, Ionized (03/10/2024 6:13 PM CDT) [facility] Calcium, Ionized, B 4.88 4.65 - 5.30 mg/dL 03/10/2024 6:21 PM CDT [facility] Blood (Blood, Venous) 03/10/2024 6:13 PM CDT 03/10/2024 6:18 PM CDT Xiao Wheeler APRN, C.N.P., D.N.P. LAB BLOOD NON ADD-ON [facility] [address] [place] [address], [facility] [address] [place] [address] * (ABNORMAL) Blood Gas with Coox, Arterial (03/10/2024 6:13 PM CDT) Pathologist [facility] [place] pO2 139(H) 83 - 108 mm Hg 03/10/2024 6:21 PM CDT STMA pCO2 41 35 - 48 mm Hg 03/10/2024 6:21 PM CDT ST[facility] pH 7.43 7.35 - 7.45 pH 03/10/2024 6:21 PM CDT STMA Base Excess 3 -2 - 3 mmol/L 03/10/2024 6:21 PM CDT ST[facility] HCO3 27(H) 22 - 26 mmol/L 03/10/2024 6:21 PM CDT STMA Hemoglobin, B 9.1(L) 13.2 - 16.6 g/dL 03/10/2024 6:21 PM CDT ST[facility] O2Hb 98.1(H) 94.0 - 98.0 % 03/10/2024 6:21 PM CDT STMA COHb 1.5 <3.0 % 03/10/2024 6:21 PM CDT STMA MetHb 1.0 <1.5 % 03/10/2024 6:21 PM CDT ST[facility] CtO2 12.8(L) 18.0 - 21.0 vol % 03/10/2024 6:21 PM CDT STMA Arterial Sample Site Art Line 03/10/2024 6:18 PM CDT ST[facility] Comment:Wilfredo's test not don e. Blood (Blood, Arterial) 03/10/2024 6:13 PM CDT 03/10/2024 6:18 PM CDT Xiao Wheeler APRN, C.N.P., D.N.P. LAB BLOOD NON ADD-ON [facility] [address] [place] [address], [facility] [address] [place] [address] * (ABNORMAL) Troponin T, Baseline with 2 Hour/6 Hour Reflex Biomarker Panel (03/10/2024 6:12 PM CDT) Troponin T, Baseline, 5th gen 18(H) <=15 ng/L 03/10/2024 6:34 PM CDT STMA Blood (Blood, Venous) 03/10/2024 6:12 PM CDT 03/10/2024 6:18 PM CDT Neel Tony APRNN.P., D.N.P. LAB BLOOD TROPONIN Performing Organization Address City/[facility]/ZIP Co de Phone Number [facility] [address] [place] [address], [facility] STMA [facility] [address] [place] [address] * Phosphorus Inorganic (03/10/2024 6:12 PM CDT) Phosphorus (Inorganic), S 4.0 2.5 - 4.5 mg/dL 03/10/2024 7:18 PM CDT DTL Blood (Blood, Venous) 03/10/2024 6:12 PM CDT 03/10/2024 7:03 PM CDT Girish Tony APRN.N.P., D.N.P. LAB BLOOD ADD-ON Performing Organization Address City/[facility]/ZIP Co de Phone Number [facility] [address] [place], [place] [id number] [place] [address] [address] [place] [address] * Magnesium (03/10/2024 6:12 PM CDT) Magnesium, S 1.9 1.7 - 2.3 mg/dL 03/10/2024 7:18 PM CDT DTL Blood (Blood, Venous) 03/10/2024 6:12 PM CDT 03/10/2024 7:03 PM CDT Xiao Wheeler APRN, Girish.N.P., D.N.P. LAB BLOOD ADD-ON [facility] [address] [place], [place] [id number] [place] [address] [address] [place] [address] * Lactate (03/10/2024 6:12 PM CDT) Lactate, P 0.7 0.5 - 2.2 mmol/L 03/10/2024 6:32 PM CDT STMA Blood (Blood, Venous) 03/10/2024 6:12 PM CDT 03/10/2024 6:18 PM CDT Xiao Wheeler APRN, C.N.P., D.N.P. LAB BLOOD NON ADD-ON [facility] [address] [place] [address], [facility] [address] [place] [address] * (ABNORMAL) Hepatic Function Panel (03/10/2024 6:12 PM CDT) Bilirubin, Total, S 0.6 0.0 - 1.2 mg/dL 03/10/2024 7:18 PM CDT DTL Bilirubin, Direct, S 0.5(H) 0.0 - 0.3 mg/dL 03/10/2024 7:18 PM CDT DTL Aspartate Aminotransferase (AST), S 105(H) 8 - 48 U/L 03/10/2024 7:18 PM CDT DTL Alanine Aminotransferase (ALT), S 48 7 - 55 U/L 03/10/2024 7:18 PM CDT DTL Alkaline Phosphatase, S 130(H) 40 - 129 U/L 03/10/2024 7:18 PM CDT DTL Albumin, S 3.0(L) 3.5 - 5.0 g/dL 03/10/2024 7:18 PM CDT DTL Protein, Total, S 4.9(L) 6.3 - 7.9 g/dL 03/10/2024 7:18 PM CDT DTL Blood (Blood, Venous) 03/10/2024 6:12 PM CDT 03/10/2024 7:03 PM CDT Girish Tony APRN.N.P., D.N.P. LAB BLOOD ADD-ON [facility] [address] [place] [address], [facility] DTL [facility] [address] [place] [address] * (ABNORMAL) CBC without Differential (03/10/2024 6:12 PM CDT) Pathologist [facility] [place] Hemoglobin 8.8(L) 13.2 - 16.6 g/dL 03/10/2024 6:20 PM CDT STMA Hematocrit 26.1(L) 38.3 - 48.6 % 03/10/2024 6:20 PM CDT STMA Erythrocytes 2.67(L) 4.35 - 5.65 x10(12)/L 03/10/2024 6:20 PM CDT STMA MCV 97.8 78.2 - 97.9 fL 03/10/2024 6:20 PM CDT ST[facility] RBC Distrib Width 14.8(H) 11.8 - 14.5 % 03/10/2024 6:20 PM CDT STMA Platelet Count 210 135 - 317 x10(9)/L 03/10/2024 6:20 PM CDT STMA Leukocytes 8.8 3.4 - 9.6 x10(9)/L 03/10/2024 6:20 PM CDT STMA Blood (Blood, Venous) 03/10/2024 6:12 PM CDT 03/10/2024 6:18 PM CDT Xiao Wheeler APRN, Girish.N.P., D.N.P. LAB BLOOD ADD-ON [facility] [address] [place] [address], [facility] STMA [facility] [address] [place] [address] * (ABNORMAL) Basic Metabolic Panel (03/10/2024 6:12 PM CDT) Pathologist [facility] [place] Potassium, P 3.6 3.6 - 5.2 mmol/L 03/10/2024 6:35 PM CDT STMA Sodium, P 140 135 - 145 mmol/L 03/10/2024 6:35 PM CDT STMA Chloride, P 103 98 - 107 mmol/L 03/10/2024 6:35 PM CDT STMA Bicarbonate, P 26 22 - 29 mmol/L 03/10/2024 6:35 PM CDT STMA Anion Gap, P 11 7 - 15 03/10/2024 6:35 PM CDT STMA BUN (Blood Urea Nitrogen), P 17 8 - 24 mg/dL 03/10/2024 6:35 PM CDT STMA Creatinine 0.47(L) 0.74 - 1.35 mg/dL 03/10/2024 6:35 PM CDT STMA Estimated GFR (eGFR) >90 >=60 mL/min/BSA 03/10/2024 6:35 PM CDT STMA Comment: Estimated GFR calculated using the 2020 CKD_EPI creatinine equation. Calcium, Total, P 8.6 8.6 - 10.0 mg/dL 03/10/2024 6:35 PM CDT STMA Glucose, P 119 70 - 140 mg/dL 03/10/2024 6:35 PM CDT STMA Blood (Blood, Venous) 03/10/2024 6:12 PM CDT 03/10/2024 6:18 PM CDT Xiao Wheeler APRN, C.N.P., D.N.P. LAB BLOOD ADD-ON [facility] [address] [place] [address], [facility] [address] [place] [address] * (ABNORMAL) Thromboelastograph, Kaolin, Blood (03/10/2024 6:08 PM CDT) R, Kaolin, TEG 14.0(H) 4.0 - 9.0 min 03/10/2024 7:35 PM CDT STMA K, Kaolin, TEG 4.0(H) 1.0 - 1.8 min 03/10/2024 7:35 PM CDT STMA Angle, Kaolin, TEG 45.5(L) 64.0 - 78.1 degrees 03/10/2024 7:35 PM CDT STMA MA, Kaolin, TEG 65.7 57.1 - 72.6 mm 03/10/2024 7:35 PM CDT STMA Ly30, Kaolin, TEG 0.0 0.0 - 4.8 % 03/10/2024 7:35 PM CDT STMA Blood (Blood, Venous) 03/10/2024 6:08 PM CDT 03/10/2024 6:14 PM CDT Xiao Wheeler APRN, C.N.P., D.N.P. LAB BLOOD NON ADD-ON [facility] [address] [place] [address], [facility] [address] [place] [address] * DX Chest Portable 1 View (03/10/2024 5:45 PM CDT) Anatomical Region Laterality Modality Chest, Thoracic RST LOS, Tho racic ARZ LOS, Thoracic FLA LOS N/A Digital Radiography Impressions 03/10/2024 9:13 PM CDT Since 03/02/2024, improved lung volumes and decreased patchy atelectasis/consolidation at the bases. New subdiaphragmatic enteric tube with tip outside the [id number], sidehole overlying the expected stomach. New partially visualized surgical material right upper abdomen, correlate with intentionally packed material during temporary closure. Otherwise no significant change. ETT with tip in midthoracic trachea. Right PICC with tip at the SVC/RA junction. Elevated right hemidiaphragm. Bibasilar atelectasis. Narrative 03/10/2024 9:13 PM CDT EXAM: ??DX CHEST PORTABLE 1 VIEW Procedure Note Syed Pickett M.D. - 03/10/2024 EXAM: DX CHEST PORTABLE 1 VIEW IMPRESSION: Since 03/02/2024, improved lung volumes and decreased patchyatelectasis/consolidation at the bases. New subdiaphragmatic enteric tubewith tip outside the [id number], sidehole overlying the expectedstomach. New partially visualized surgical material right upper abdomen, correlate with intentionally packedmaterial during temporary closure. Otherwise no significant change. ETTwith tip in midthoracic trachea. Right PICC with tip at the SVC/RAjunction. Elevated right hemidiaphragm. Bibasilar atelectasis. Xiao Wheeler APRN, C.N.P., D.N.P. IMG DIAGNOSTIC IMAGING PROCEDURES * ECG 12 Lead (03/10/2024 5:37 PM CDT) Pathologist [facility] [place] Ventricular Rate ECG/Min 70 BPM MUSE SC Interval 128 ms MUSE QRSD Interval 82 ms MUSE QT Interval 436 ms MUSE QTC Interval 470 ms MUSE P Holland -11 degrees MUSE R Holland 38 degrees MUSE T Wave Holland 18 degrees MUSE 03/10/2024 5:37 PM CDT [...] C.N.P., D.N.P. ECG ORDERABLES MUSE NA * Patient Status (03/10/2024 4:39 PM CDT) Temperature 35.8 37.0 deg C 03/10/2024 4:40 PM CDT STMA FIO2 0.50 0.21=AIR 03/10/2024 4:40 PM CDT STMA Blood 03/10/2024 4:39 PM CDT 03/10/2024 4:39 PM CDT Ayad Georges APRN, CANNING MACHINE OPERATOR, DNAP LAB BLOO D NON ADD-ON [facility] [address] [place] [address] * (ABNORMAL) Platelet Count (03/10/2024 4:39 PM CDT) [facility] Platelet Count 132(L) 135 - 317 x10(9)/L 03/10/2024 4:48 PM CDT [facility] Blood (Blood, Arterial Line) 03/10/2024 4:39 PM CDT 03/10/2024 4:39 PM CDT Renea Pelletier M.D. LAB BLOOD ADD-ON Performing Organization Address City/[facility] Co de Phone Number [facility] [address] [place] [address] * (ABNORMAL) Prothrombin Time (PT) (03/10/2024 4:39 PM CDT) Pathologist [facility] [place] Prothrombin Time, P 18.9(H) 9.4 - 12.5 sec 03/10/2024 4:59 PM CDT STMA INR 1.7 0.9 - 1.1 03/10/2024 4:59 PM CDT STMA Comment: ----ADDITIONAL INFORMATION---- Standard intensity warfarin therapeutic range: 2.0 to 3.0 ?? High intensity warfarin therapeutic range: 2.5 to 3.5 Blood (Blood, Arterial Line) 03/10/2024 4:39 PM CDT 03/10/2024 4:39 PM CDT Renea Pelletier M.D. LAB BLOOD ADD-ON [facility] [address] [place], [place] [id number] [place] [address] [address] [place] [address] * (ABNORMAL) Fibrinogen (03/10/2024 4:39 PM CDT) Pathologist [facility] Fibrinogen, P 457(H) 200 - 393 mg/dL 03/10/2024 4:59 PM CDT STMA Blood (Blood, Arterial Line) 03/10/2024 4:39 PM CDT 03/10/2024 4:39 PM CDT Renea Pelletier M.D. LAB BLOOD ADD-ON Performing Organization Address [facility]/ZIP Co de Phone Number [facility] [address] [place], [place] [id number] [place] [address] [address] [place] [address] * (ABNORMAL) APTT (Activated Partial Thromboplastin Time) (03/10/2024 4:39 PM CDT) [facility] Activated Partial Thrombopl Time, P 40(H) 25 - 37 sec 03/10/2024 5:01 PM CDT [facility] Blood (Blood, Arterial Line) 03/10/2024 4:39 PM CDT 03/10/2024 4:39 PM CDT Renea Pelletier M.D. LAB BLOOD ADD-ON [facility] [address] [place], [place] [phone] [place] [address] [address] [place] [address] * Glucose, Whole Blood (03/10/2024 4:39 PM CDT) [facility] Glucose 119 70 - 140 mg/dL 03/10/2024 4:41 PM CDT STMA Blood (Blood, Arterial Line) 03/10/2024 4:39 PM CDT 03/10/2024 4:39 PM CDT Renea Pelletier M.D. LAB BLOOD ADD-ON [facility] [address] [place] [address], [facility] [address] [place] [address] * (ABNORMAL) Potassium, Blood (03/10/2024 4:39 PM CDT) Potassium, B 3.1(L) 3.6 - 5.2 mmol/L 03/10/2024 4:42 PM CDT STMA Blood (Blood, Arterial Line) 03/10/2024 4:39 PM CDT 03/10/2024 4:39 PM CDT Renea Pelletier M.D. LAB BLOOD NON ADD-ON Performing Organization Address City/[facility]/ZIP Co de Phone Number [facility] [address] [place], [place] [phone] [place] [address] [address] [place] [address] * Sodium, B (03/10/2024 4:39 PM CDT) Sodium, B 141 135 - 145 mmol/L 03/10/2024 4:41 PM CDT STMA Blood (Blood, Arterial Line) 03/10/2024 4:39 PM CDT 03/10/2024 4:39 PM CDT Renea Pelletier M.D. LAB BLOOD NON ADD-ON [facility] [address] [place] [address], [facility] [address] [place] [address] * (ABNORMAL) Calcium, Ionized (03/10/2024 4:39 PM CDT) Calcium, Ionized, B 5.44(H) 4.65 - 5.30 mg/dL 03/10/2024 4:42 PM CDT STMA Blood (Blood, Arterial Line) 03/10/2024 4:39 PM CDT 03/10/2024 4:39 PM CDT Renea Pelletier M.D. LAB BLOOD NON ADD-ON [facility] [address] [place] [address], [facility] [address] [place] [address] * (ABNORMAL) Blood Gas with Coox, Arterial (03/10/2024 4:39 PM CDT) Pathologist [facility] pO2 90 83 - 108 mm Hg 03/10/2024 4:41 PM CDT STMA pCO2 44 35 - 48 mm Hg 03/10/2024 4:41 PM CDT ST[facility] pH 7.41 7.35 - 7.45 pH 03/10/2024 4:41 PM CDT STMA Base Excess 3 -2 - 3 mmol/L 03/10/2024 4:41 PM CDT ST[facility] HCO3 28(H) 22 - 26 mmol/L 03/10/2024 4:41 PM CDT STMA Hemoglobin, B 7.7(L) 13.2 - 16.6 g/dL 03/10/2024 4:41 PM CDT STMA O2Hb 95.2 94.0 - 98.0 % 03/10/2024 4:41 PM CDT STMA COHb 1.6 <3.0 % 03/10/2024 4:41 PM CDT STMA MetHb 1.1 <1.5 % 03/10/2024 4:41 PM CDT STMA CtO2 10.5(L) 18.0 - 21.0 vol % 03/10/2024 4:41 PM CDT STMA Blood (Blood, Arterial Line) 03/10/2024 4:39 PM CDT 03/10/2024 4:39 PM CDT Renea Pelletier M.D. LAB BLOOD NON ADD-ON [facility] [address] [place] [address], [facility] [address] [place] [address] * Transfuse Red Blood Cells : (03/10/2024 4:38 PM CDT) Renea Pelletier M.D. BLOOD TRANSFUSION OR DERABLES * Transfuse Red Blood Cells : (03/10/2024 4:12 PM CDT) Renea Pelletier M.D. BLOOD TRANSFUSION OR DERABLES * Patient Status (03/10/2024 3:25 PM CDT) Temperature 36.4 37.0 deg C 03/10/2024 3:26 PM CDT ST[facility] FIO2 0.55 0.21=AIR 03/10/2024 3:26 PM CDT STMA Blood 03/10/2024 3:25 PM CDT 03/10/2024 3:25 PM CDT Ayad Georges APRN, CANNING MACHINE OPERATOR, DNAP LAB BLOO D NON ADD-ON Performing Organization Address City/[facility]/ZIP Co de Phone Number [facility] [address] [place] [address], [facility] [address] [place] [address] * Glucose, Whole Blood (03/10/2024 3:25 PM CDT) Glucose 106 70 - 140 mg/dL 03/10/2024 3:27 PM CDT STMA Blood (Blood, Arterial Line) 03/10/2024 3:25 PM CDT 03/10/2024 3:25 PM CDT Renea Pelletier M.D. LAB BLOOD ADD-ON Performing Organization Address City/[facility]/ZIP Co de Phone Number [facility] [address] [place] [address], [facility] [address] [place] [address] * (ABNORMAL) Potassium, Blood (03/10/2024 3:25 PM CDT) Potassium, B 3.2(L) 3.6 - 5.2 mmol/L 03/10/2024 3:27 PM CDT STMA Blood (Blood, Arterial Line) 03/10/2024 3:25 PM CDT 03/10/2024 3:25 PM CDT Renea Pelletier M.D. LAB BLOOD NON ADD-ON Performing Organization Address City/[facility]/ZIP Co de Phone Number [facility] [address] [place] [address], [facility] [address] [place] [address] * Sodium, B (03/10/2024 3:25 PM CDT) Sodium, B 140 135 - 145 mmol/L 03/10/2024 3:27 PM CDT ST[facility] Blood (Blood, Arterial Line) 03/10/2024 3:25 PM CDT 03/10/2024 3:25 PM CDT Renea Pelletier M.D. LAB BLOOD NON ADD-ON Performing Organization Address City/[facility]/ZIP Co de Phone Number [facility] [address] [place] [address], [facility] [address] [place] [address] * (ABNORMAL) Calcium, Ionized (03/10/2024 3:25 PM CDT) Calcium, Ionized, B 4.59(L) 4.65 - 5.30 mg/dL 03/10/2024 3:27 PM CDT ST[facility] Blood (Blood, Arterial Line) 03/10/2024 3:25 PM CDT 03/10/2024 3:25 PM CDT Renea Pelletier M.D. LAB BLOOD NON ADD-ON [facility] [address] [place] [address], [facility] STMA [facility] [address] [place] [address] * (ABNORMAL) Blood Gas with Coox, Arterial (03/10/2024 3:25 PM CDT) [facility] pO2 102 83 - 108 mm Hg 03/10/2024 3:27 PM CDT STMA pCO2 39 35 - 48 mm Hg 03/10/2024 3:27 PM CDT [facility] pH 7.50(H) 7.35 - 7.45 pH 03/10/2024 3:27 PM CDT ST[facility] Base Excess 7(H) -2 - 3 mmol/L 03/10/2024 3:27 PM CDT [facility] HCO3 30(H) 22 - 26 mmol/L 03/10/2024 3:27 PM CDT [facility] Hemoglobin, B 7.4(L) 13.2 - 16.6 g/dL 03/10/2024 3:27 PM CDT [facility] O2Hb 96.5 94.0 - 98.0 % 03/10/2024 3:27 PM CDT [facility] COHb 1.7 <3.0 % 03/10/2024 3:27 PM CDT [facility] MetHb <1.0 <1.5 % 03/10/2024 3:27 PM CDT [facility] CtO2 10.2(L) 18.0 - 21.0 vol % 03/10/2024 3:27 PM CDT [facility] Blood (Blood, Arterial Line) 03/10/2024 3:25 PM CDT 03/10/2024 3:25 PM CDT Renea Pelletier M.D. LAB BLOOD NON ADD-ON [facility] [address] [place], [place] [id number] [place] [address] [address] [place] [address] * (ABNORMAL) Prothrombin Time (PT) (03/10/2024 1:07 PM CDT) [facility] Prothrombin Time, P 17.4(H) 9.4 - 12.5 sec 03/10/2024 1:20 PM CDT [facility] INR 1.6 0.9 - 1.1 03/10/2024 1:20 PM CDT [facility] Comment: ----ADDITIONAL INFORMATION---- Standard intensity warfarin therapeutic range: 2.0 to 3.0 ?? High intensity warfarin therapeutic range: 2.5 to 3.5 Blood (Blood, Venous) 03/10/2024 1:07 PM CDT 03/10/2024 1:13 PM CDT Tam Huang P.A.-C. M.S. LAB B LOOD ADD-ON [facility] [address] [place] [address], [facility] [address] [place] [address] * Glucose, POCT (03/10/2024 11:38 AM CDT) [facility] Glucose, POCT, B 96 70 - 140 mg/dL 03/10/2024 11:39 AM CDT [facility] Comment: Glucose results collected from venous catheters may be falsely elevated. Site Venline 03/10/2024 11:39 AM CDT [facility] Last Intake NPO 03/10/2024 11:39 AM CDT [facility] Blood 03/10/2024 11:3 8 AM CDT 03/10/2024 11:39 AM CDT Unknown Provider LAB POCT ORDERABLES- MANUAL POC [facility] [address] [place] [address], [facility] POC [address] [place] [address] * Lactate (03/10/2024 11:38 AM CDT) Lactate, P 0.8 0.5 - 2.2 mmol/L 03/10/2024 12:05 PM CDT [facility] Blood (Blood, Venous) 03/10/2024 11:38 AM CDT 03/10/2024 11:43 AM CDT Tam Huang P.A.-C. MMaySMay LAB B LOOD NON ADD-ON [facility] [address] [place] [address], [facility] [address] [place] [address] * CT Abdomen Pelvis with IV Contrast (03/10/2024 10:13 AM CDT) Anatomical Region Laterality Modality Abdomen, Pelvis, [...] junction. Findings were discussed with Tam JEWELL (#[id number]) at 03/10/2024 10:37 AM. Procedure Note Estelle [...] junction. Findings were discussed with Tam JEWELL (#[id number]) at 0:37 AM. IMPRESSION: 1. New large volume pneumoperitoneum, likely secondary to gastricperforation at the site of the percutaneous gastrojejunostomy balloon. 2. Slightly worsened functional ileus. 3. Persistent consolidative/groundglass opacities in the bibasilar lowerlungs. 4. Decreased inflammation of the distal sigmoid colon and rectum. Basil Miranda APRN, C.N.P. IMG CT SC OCEDURES * Glucose, POCT (03/10/2024 8:24 AM CDT) Glucose, POCT, B 91 70 - 140 mg/dL 03/10/2024 8:25 AM CDT PCLX Site Capillary 03/10/2024 8:25 AM CDT PCLX Last Intake NPO 03/10/2024 8:25 AM CDT PCLX Blood 03/10/2024 8:24 AM CDT 03/10/2024 8:26 AM CDT Unknown Provider LAB POCT ORDERABLES- MANUAL Performing Organization Address City/State/[facility] Co de Phone Number POC [facility] [address] [place] [address], [facility] [address] [place] [address] * DX Abdomen Portable Anterior Posterior 1 View (03/10/2024 6:39 AM CDT) Anatomical Region Laterality Modality Abdomen, Abdominal RST LOS, Abdominal ARZ LOS, Abdominal FLA LOS N/A Digital Radiography Impressions 03/10/2024 8:36 AM CDT Decrease gaseous distention of the colon particularly within the right upper quadrant, however, there are findings are suspicious for pneumoperitoneum. Overall paucity of small bowel gas. Percutaneous gastrojejunostomy tube. Enteric tube tip and side-port extents to the stomach. Findings of this study were communicated to Dr. Jesenia PÉREZ at 8:36 AM on 03/10/2024. Narrative 03/10/2024 8:36 AM CDT EXAM: ??DX ABDOMEN PORTABLE ANTERIOR POSTERIOR 1 VIEW Procedure Note Ken Sheriff D.O. - 03/10/2024 EXAM: DX ABDOMEN PORTABLE ANTERIOR POSTERIOR 1 VIEW IMPRESSION: Decrease gaseous distention of the colon particularly within the rightupper quadrant, however, there are findings are suspicious forpneumoperitoneum. Overall paucity of small bowel gas. Percutaneousgastrojejunostomy tube. Enteric tube tip and side-port extents to the stomach. Findings of this study were communicated to Dr. Jesenia PÉREZ at 8:36 AM on03/10/2024. Rashad Sal APRN, C.N.P., M.S.NMay RAMIREZ G DIAGNOSTIC IMAGING PROCEDURES * (ABNORMAL) CBC without Differential (03/10/2024 4:19 AM CDT) Pathologist [facility] [place] Hemoglobin 8.1(L) 13.2 - 16.6 g/dL 03/10/2024 5:23 AM CDT DTL Hematocrit 24.9(L) 38.3 - 48.6 % 03/10/2024 5:23 AM CDT DTL Erythrocytes 2.41(L) 4.35 - 5.65 x10(12)/L 03/10/2024 5:23 AM CDT DTL MCV 103.3(H) 78.2 - 97.9 fL 03/10/2024 5:23 AM CDT DTL RBC Distrib Width 13.2 11.8 - 14.5 % 03/10/2024 5:23 AM CDT DTL Platelet Count 210 135 - 317 x10(9)/L 03/10/2024 5:23 AM CDT DTL Leukocytes 5.9 3.4 - 9.6 x10(9)/L 03/10/2024 5:23 AM CDT DTL Blood (Blood, Venous) 03/10/2024 4:19 AM CDT 03/10/2024 5:16 AM CDT Neel Jennings APRNNLuis Fernando, M.S.NMay LA B BLOOD ADD-ON [facility] [address] [place] [address], [facility] [address] [place] [address] * Phosphorus Inorganic (03/10/2024 4:19 AM CDT) Phosphorus (Inorganic), S 2.8 2.5 - 4.5 mg/dL 03/10/2024 5:44 AM CDT DTL Blood (Blood, Venous) 03/10/2024 4:19 AM CDT 03/10/2024 5:27 AM CDT Rashad Sal APRN, C.N.P., M.S.NMay DELGADO BLOOD ADD-ON Performing Organization Address City/[facility] Co de Phone Number [facility] [address] [place] [address] * (ABNORMAL) Magnesium (03/10/2024 4:19 AM CDT) Magnesium, S 2.4(H) 1.7 - 2.3 mg/dL 03/10/2024 5:44 AM CDT DTL Blood (Blood, Venous) 03/10/2024 4:19 AM CDT 03/10/2024 5:27 AM CDT Neel Jennings APRNNAlexandra., M.S.NMay DELGADO BLOOD ADD-ON Performing Organization Address [facility] de Phone Number [facility] [address] [facility] 200 [place] [address] * (ABNORMAL) Basic Metabolic Panel (03/10/2024 4:19 AM CDT) Potassium, S 3.8 3.6 - 5.2 mmol/L 03/10/2024 5:44 AM CDT DTL Sodium, S 139 135 - 145 mmol/L 03/10/2024 5:44 AM CDT DTL Chloride, S 95(L) 98 - 107 mmol/L 03/10/2024 5:44 AM CDT DTL Bicarbonate, S 31(H) 22 - 29 mmol/L 03/10/2024 5:44 AM CDT DTL Anion Gap 13 7 - 15 03/10/2024 5:44 AM CDT DTL BUN (Blood Urea Nitrogen), S 20 8 - 24 mg/dL 03/10/2024 5:44 AM CDT DTL Creatinine 0.59(L) 0.74 - 1.35 mg/dL 03/10/2024 5:44 AM CDT DTL Estimated GFR (eGFR) >90 >=60 mL/min/BSA 03/10/2024 5:44 AM CDT DTL Comment: Estimated GFR calculated using the 2020 CKD_EPI creatinine equation. Calcium, Total, S 9.2 8.6 - 10.0 mg/dL 03/10/2024 5:44 AM CDT DTL Glucose, S 88 70 - 140 mg/dL 03/10/2024 5:44 AM CDT DTL Blood (Blood, Venous) 03/10/2024 4:19 AM CDT 03/10/2024 5:27 AM CDT Rashad Sal APRN C.N.P., M.S.N. LA B BLOOD ADD-ON [address] [address], [facility] [address] [address] * (ABNORMAL) Cystatin C with Estimated GFR (03/10/2024 4:19 AM CDT) eGFR by Cystatin C 60(L) >60 mL/min/BSA 03/10/2024 5:44 AM CDT DTL Comment: Estimated GFR calculated [...] lower with the new assay. Cystatin C 1.28(H) 0.63 - 1.03 mg/L 03/10/2024 5:44 AM CDT DTL Blood (Blood, Venous) 03/10/2024 4:19 AM CDT 03/10/2024 5:27 AM CDT Neel Jennings APRNNMayPMay, M.S.NMay DELGADO BLOOD ADD-ON [facility] [address] [place] [address], [facility] DTL [facility] [address] [place] [address] * Glucose, POCT (03/10/2024 2:18 AM CDT) Glucose, POCT, B 92 70 - 140 mg/dL 03/10/2024 2:20 AM CDT PCLX Site Capillary 03/10/2024 2:20 AM CDT PCLX Last Intake NPO 03/10/2024 2:20 AM CDT PCLX Blood 03/10/2024 2:18 AM CDT 03/10/2024 2:20 AM CDT Unknown Provider LAB POCT ORDERABLES- MANUAL [facility] [address] [place] [address], [facility]OC [address] [place] [address] * Glucose, POCT (03/09/2024 8:38 PM CDT) Glucose, POCT, B 105 70 - 140 mg/dL 03/09/2024 8:40 PM CDT PCLX Site Capillary 03/09/2024 8:40 PM CDT PCLX Last Intake NPO 03/09/2024 8:40 PM CDT PCLX Blood 03/09/2024 8:38 PM CDT 03/09/2024 8:40 PM CDT Unknown Provider LAB POCT ORDERABLES- MANUAL [facility] [address] [place] [address], [facility]OC [address] [place] [address] * Glucose, POCT (03/09/2024 5:02 PM CDT) Glucose, POCT, B 98 70 - 140 mg/dL 03/09/2024 5:03 PM CDT PCLX Site Capillary 03/09/2024 5:03 PM CDT PCLX Last Intake NPO 03/09/2024 5:03 PM CDT PCLX Blood 03/09/2024 5:02 PM CDT 03/09/2024 5:03 PM CDT Unknown Provider LAB POCT ORDERABLES- MANUAL Performing Organization Address [facility] Co de Phone Number POC [facility] [address] [place] [address], [facility]OC [address] [place] [address] * DX Abdomen Portable Anterior Posterior 1 View (03/09/2024 4:25 PM CDT) Anatomical Region Laterality Modality Abdomen, Abdominal RST LOS, Abdominal ARZ LOS, Abdominal FLA LOS N/A Digital Radiography Impressions 03/09/2024 4:45 PM CDT Enteric tube with tip and side-port in the stomach. Narrative 03/09/2024 4:45 PM CDT EXAM: ??DX ABDOMEN PORTABLE ANTERIOR POSTERIOR 1 VIEW Procedure Note Syed Pickett M.D. - 03/09/2024 EXAM: DX ABDOMEN PORTABLE ANTERIOR POSTERIOR 1 VIEW IMPRESSION: Enteric tube with tip and side-port in the stomach. Rashad Sal APRN C.N.P., M.S.N. IM G DIAGNOSTIC IMAGING PROCEDURES * Patient Status (03/09/2024 12:50 PM CDT) FIO2 0.30 0.21=AIR 03/09/2024 12: 53 PM CDT STMA Device Vent 03/09/2024 12: 53 PM CDT STMA Blood 03/09/2024 12:5 0 PM CDT 03/09/2024 12:53 PM CDT Neel Jennings APRNNAlexandra., M.S.N. NEAL Dunne BLOOD NON ADD-ON [facility] [address] [place] [address], [facility] STMA [facility] [address] [place] [address] * (ABNORMAL) Blood Gas without Coox, Venous (03/09/2024 12:50 PM CDT) pO2, Venous, B 40 Not [...] 12:50 PM CDT 03/09/2024 12:53 PM CDT Neel Jennings APRNNAlexandra., M.S.N. NEAL B BLOOD NON ADD-ON [facility] [address] [place] [address], [facility] STMA [facility] [address] [place] [address] * Glucose, POCT (03/09/2024 11:50 AM CDT) Glucose, POCT, B 102 70 - 140 mg/dL 03/09/2024 11:51 AM CDT PCLX Site Capillary 03/09/2024 11:51 AM CDT PCLX Last Intake NPO 03/09/2024 11:51 AM CDT PCLX Blood 03/09/2024 11:5 0 AM CDT 03/09/2024 11:51 AM CDT Unknown Provider LAB POCT ORDERABLES- MANUAL Performing Organization Address City/[facility]/ZIP Co de Phone Number POC [facility] [address] [place] [address], [facility] [address] [place] [address] * Glucose, POCT (03/09/2024 7:30 AM CDT) Glucose, POCT, B 94 70 - 140 mg/dL 03/09/2024 7:31 AM CDT PCLX Site Capillary 03/09/2024 7:31 AM CDT PCLX Last Intake NPO 03/09/2024 7:31 AM CDT PCLX Blood 03/09/2024 7:30 AM CDT 03/09/2024 7:32 AM CDT Unknown Provider LAB POCT ORDERABLES- MANUAL Performing Organization Address City/[facility] Co de Phone Number POC [facility] [address] [place] [address], [facility] [address] [place] [address] * (ABNORMAL) CBC without Differential (03/09/2024 3:22 AM CDT) Hemoglobin 7.7(L) 13.2 - 16.6 g/dL 03/09/2024 3:56 AM CDT DTL Hematocrit 23.3(L) 38.3 - 48.6 % 03/09/2024 3:56 AM CDT DTL Erythrocytes 2.27(L) 4.35 - 5.65 x10(12)/L 03/09/2024 3:56 AM CDT DTL MCV 102.6(H) 78.2 - 97.9 fL 03/09/2024 3:56 AM CDT DTL RBC Distrib Width 13.8 11.8 - 14.5 % 03/09/2024 3:56 AM CDT DTL Platelet Count 191 135 - 317 x10(9)/L 03/09/2024 3:56 AM CDT DTL Leukocytes 6.4 3.4 - 9.6 x10(9)/L 03/09/2024 3:56 AM CDT DTL Blood (Blood, Venous) 03/09/2024 3:22 AM CDT 03/09/2024 3:49 AM CDT Ivory Paredes P.A.-C., M.S. LAB BLO OD ADD-ON [facility] [address] [place] [address], [facility] [address] [place] [address] * (ABNORMAL) Basic Metabolic Panel (03/09/2024 3:22 AM CDT) Potassium, S 4.8 3.6 - 5.2 mmol/L 03/09/2024 4:29 AM CDT DTL Sodium, S 135 135 - 145 mmol/L 03/09/2024 4:29 AM CDT DTL Chloride, S 95(L) 98 - 107 mmol/L 03/09/2024 4:29 AM CDT DTL Bicarbonate, S 29 22 - 29 mmol/L 03/09/2024 4:29 AM CDT DTL Anion Gap 11 7 - 15 03/09/2024 4:29 AM CDT DTL BUN (Blood Urea Nitrogen), S 19 8 - 24 mg/dL 03/09/2024 4:29 AM CDT DTL Creatinine 0.56(L) 0.74 - 1.35 mg/dL 03/09/2024 4:29 AM CDT DTL Estimated GFR (eGFR) >90 >=60 mL/min/BSA 03/09/2024 4:29 AM CDT DTL Comment: Estimated GFR calculated using the 2020 CKD_EPI creatinine equation. Calcium, Total, S 8.8 8.6 - 10.0 mg/dL 03/09/2024 4:29 AM CDT DTL Glucose, S 86 70 - 140 mg/dL 03/09/2024 4:29 AM CDT DTL Blood (Blood, Venous) 03/09/2024 3:22 AM CDT 03/09/2024 4:05 AM CDT Ivory Paredes P.A.-C., M.S. LAB BLO OD ADD-ON Performing Organization Address City/[facility]/ZIP Co de Phone Number [facility] [address] [place] [address] * Magnesium (03/09/2024 3:17 AM CDT) Magnesium, S 2.1 1.7 - 2.3 mg/dL 03/09/2024 4:58 PM CDT DTL Blood (Blood, Venous) 03/09/2024 3:17 AM CDT 03/09/2024 4:31 PM CDT Rashad Sal APRN, C.N.P., M.S.N. LA B BLOOD ADD-ON Performing Organization Address City/[facility]/ZIP Co de Phone Number [facility] [address] [place] [address] * (ABNORMAL) Cystatin C with Estimated GFR (03/09/2024 3:17 AM CDT) eGFR by Cystatin C 67 >60 mL/min/BSA 03/09/2024 8:37 AM CDT DTL Comment: Estimated GFR calculated [...] lower with the new assay. Cystatin C 1.17(H) 0.63 - 1.03 mg/L 03/09/2024 8:37 AM CDT DTL Blood (Blood, Venous) 03/09/2024 3:17 AM CDT 03/09/2024 8:04 AM CDT Rufus Meng LAB BLOOD ADD-O N [facility] [address] [place] [address], [facility] [address] [place] [address] * Glucose, POCT (03/08/2024 8:37 PM CDT) Glucose, POCT, B 102 70 - 140 mg/dL 03/08/2024 8:38 PM CDT PCLX Site Capillary 03/08/2024 8:38 PM CDT PCLX Last Intake NPO 03/08/2024 8:38 PM CDT PCLX Blood 03/08/2024 8:37 PM CDT 03/08/2024 8:38 PM CDT Unknown Provider LAB POCT ORDERABLES- MANUAL [facility] [address] [place], [place] [address] [place] [address] [facility] [address] [place] [address] * Glucose, POCT (03/08/2024 6:20 PM CDT) Glucose, POCT, B 95 70 - 140 mg/dL 03/08/2024 6:22 PM CDT PCLX Blood 03/08/2024 6:20 PM CDT 03/08/2024 6:22 PM CDT Unknown Provider LAB POCT ORDERABLES- MANUAL Performing Organization Address City/[facility]/ZIP Co de Phone Number POC [facility] [address] [place] [address], [facility] [address] [place] [address] * Glucose, POCT (03/08/2024 5:10 PM CDT) Glucose, POCT, B 86 70 - 140 mg/dL 03/08/2024 5:13 PM CDT PCLX Blood 03/08/2024 5:10 PM CDT 03/08/2024 5:14 PM CDT Unknown Provider LAB POCT ORDERABLES- MANUAL Performing Organization Address [facility] Co de Phone Number [facility] [address] [place] [address], [facility] PCLX [facility] [address] [place] [address] * Patient Status (03/08/2024 12:19 PM CDT) FIO2 0.30 0.21=AIR 03/08/2024 12: 22 PM CDT STMA Device Vent 03/08/2024 12: 22 PM CDT STMA Blood 03/08/2024 12:1 9 PM CDT 03/08/2024 12:22 PM CDT Rashad Sal APRN, C.N.P., M.S.N. LA B BLOOD NON ADD-ON Performing Organization Address City/[facility]/ZIP Co de Phone Number [facility] [address] [place] [address], [facility] STMA [facility] [address] [place] [address] * (ABNORMAL) Blood Gas without Coox, Arterial (03/08/2024 12:19 PM CDT) pO2 71(L) 83 - 108 mm Hg [...] 12:19 PM CDT 03/08/2024 12:22 PM CDT Rashad Sal APRN C.N.P., M.S.N. LA B BLOOD NON ADD-ON Performing Organization Address City/[facility]/ZIP Co de Phone Number [facility] [address] STMA [facility] [address] [place] [address] * Glucose, POCT (03/08/2024 12:09 PM CDT) Glucose, POCT, B 88 70 - 140 mg/dL 03/08/2024 12:10 PM CDT PCLX Blood 03/08/2024 12:0 9 PM CDT 03/08/2024 12:10 PM CDT Unknown Provider LAB POCT ORDERABLES- MANUAL [facility] [address] [place] [address], [facility] [address] [place] [address] * Glucose, POCT (03/08/2024 7:48 AM CDT) Glucose, POCT, B 90 70 - 140 mg/dL 03/08/2024 7:49 AM CDT PCLX Blood 03/08/2024 7:48 AM CDT 03/08/2024 7:50 AM CDT Unknown Provider LAB POCT ORDERABLES- MANUAL Performing Organization Address [facility]/ZIP Co de Phone Number POC [facility] [address] [place] [address], [facility] PCLX [facility] [address] [place] [address] * (ABNORMAL) CBC without Differential (03/08/2024 5:22 AM CDT) Hemoglobin 7.6(L) 13.2 - 16.6 g/dL 03/08/2024 6:20 AM CDT DTL Hematocrit 23.2(L) 38.3 - 48.6 % 03/08/2024 6:20 AM CDT DTL Erythrocytes 2.26(L) 4.35 - 5.65 x10(12)/L 03/08/2024 6:20 AM CDT DTL MCV 102.7(H) 78.2 - 97.9 fL 03/08/2024 6:20 AM CDT DTL RBC Distrib Width 13.9 11.8 - 14.5 % 03/08/2024 6:20 AM CDT DTL Platelet Count 164 135 - 317 x10(9)/L 03/08/2024 6:20 AM CDT DTL Leukocytes 6.0 3.4 - 9.6 x10(9)/L 03/08/2024 6:20 AM CDT DTL Blood (Blood, Venous) 03/08/2024 5:22 AM CDT 03/08/2024 6:11 AM CDT Ivory Paredes P.A.-C., M.S. LAB BLO OD ADD-ON [facility] [address] [place] [address], [facility] DTL [facility] [address] [place] [address] * (ABNORMAL) Basic Metabolic Panel (03/08/2024 5:22 AM CDT) Potassium, S 5.0 3.6 - 5.2 mmol/L 03/08/2024 6:54 AM CDT DTL Sodium, S 134(L) 135 - 145 mmol/L 03/08/2024 6:54 AM CDT DTL Chloride, S 95(L) 98 - 107 mmol/L 03/08/2024 6:54 AM CDT DTL Bicarbonate, S 30(H) 22 - 29 mmol/L 03/08/2024 6:54 AM CDT DTL Anion Gap 9 7 - 15 03/08/2024 6:54 AM CDT DTL BUN (Blood Urea Nitrogen), S 20 8 - 24 mg/dL 03/08/2024 6:54 AM CDT DTL Creatinine 0.46(L) 0.74 - 1.35 mg/dL 03/08/2024 6:54 AM CDT DTL Estimated GFR (eGFR) >90 >=60 mL/min/BSA 03/08/2024 6:54 AM CDT DTL Comment: Estimated GFR calculated using the 2020 CKD_EPI creatinine equation. Calcium, Total, S 8.6 8.6 - 10.0 mg/dL 03/08/2024 6:54 AM CDT DTL Glucose, S 82 70 - 140 mg/dL 03/08/2024 6:54 AM CDT DTL Blood (Blood, Venous) 03/08/2024 5:22 AM CDT 03/08/2024 6:35 AM CDT Ivory Paredes P.A.-C., M.S. LAB BLO OD ADD-ON [facility] [address] [place] [address], [facility] [address] [place] [address] * Type and Screen (with Reflex Antibody ID) (03/08/2024 5:19 AM CDT) ABORh O Pos Not applicable 03/08/2024 7:04 AM CDT STRM Antibody Screen Negative Negative 03/08/2024 7:18 AM CDT STRM Type & Screen Expiration 03/11/2024 23:59 03/08/2024 7:04 AM CDT STRM Testing Location [facility] 03/08/2024 6:44 AM CDT STRM Blood (Blood, Venous) 03/08/2024 5:19 AM CDT 03/08/2024 6:44 AM CDT Rashad Sal APRN, C.N.P., M.SJuli DE JESUS B BLOOD BANK TEST ORDERABLES [facility] [address] [place] [address], [facility] STRM [facility] [address] [place] [address] * Glucose, POCT (03/08/2024 2:01 AM CDT) Glucose, POCT, B 88 70 - 140 mg/dL 03/08/2024 2:03 AM CDT PCLX Site ARTLINE 03/08/2024 2:03 AM CDT PCLX Last Intake NPO 03/08/2024 2:03 AM CDT PCLX Blood 03/08/2024 2:01 AM CDT 03/08/2024 2:04 AM CDT Unknown Provider LAB POCT ORDERABLES- MANUAL [facility] [address] [place] [address], [place] [facility] [address] [place] [address] * Glucose, POCT (03/07/2024 11:49 PM CDT) Glucose, POCT, B 88 70 - 140 mg/dL 03/07/2024 11:50 PM CDT PCLX Site ARTLINE 03/07/2024 11:50 PM CDT PCLX Last Intake NPO 03/07/2024 11:50 PM CDT PCLX Blood 03/07/2024 11:4 9 PM CDT 03/07/2024 11:51 PM CDT Unknown Provider LAB POCT ORDERABLES- MANUAL [facility] [address] [place] [address], [place] [facility] [address] [place] [address] * Glucose, POCT (03/07/2024 8:33 PM CDT) Glucose, POCT, B 80 70 - 140 mg/dL 03/07/2024 8:34 PM CDT PCLX Site ARTLINE 03/07/2024 8:34 PM CDT PCLX Last Intake NPO 03/07/2024 8:34 PM CDT PCLX Blood 03/07/2024 8:33 PM CDT 03/07/2024 8:35 PM CDT Unknown Provider LAB POCT ORDERABLES- MANUAL [facility]OC [facility] [address] [place] [address], [place] [facility] [address] [place] [address] * Glucose, POCT (03/07/2024 5:36 PM CDT) Glucose, POCT, B 94 70 - 140 mg/dL 03/07/2024 5:43 PM CDT PCLX Site ARTLINE 03/07/2024 5:43 PM CDT PCLX Last Intake 2-3 hours 03/07/2024 5:43 PM CDT PCLX Blood 03/07/2024 5:36 PM CDT 03/07/2024 5:44 PM CDT Unknown Provider LAB POCT ORDERABLES- MANUAL POC [facility] [address] [place] [address], [facility] [address] [place] [address] * CT Abdomen Pelvis with IV Contrast (03/07/2024 2:52 PM CDT) Anatomical Region Laterality Modality Abdomen, Pelvis, Abdominal R ST LOS, Abdominal ARZ LOS, Abdominal FLA LOS N/A Computed Tomograp hy, Computed Tomography 03/07/2024 2:47 PM CDT Impressions 03/07/2024 3:29 PM CDT 1. No mechanical small or large bowel obstruction. ??Findings in the small and large bowel are suggestive of a functional ileus. 2. Mild mural hyperenhancement in the distal sigmoid colon and rectum could represent proctocolitis. 3. Persistent consolidative opacities in the perihilar lower lungs. Narrative 03/07/2024 3:29 PM CDT EXAM: ??CT ABDOMEN PELVIS WITH IV CONTRAST COMPARISON: ??CT abdomen pelvis 12/26/2023 FINDINGS: ?? Redemonstrated marked gaseous dilatation of the cecum, which is located in central abdomen. Long and redundant sigmoid colon contains gas. No findings for cecal or sigmoid volvulus. Mild mural hyperenhancement in the distal sigmoid colon and rectum. Small bowel is diffusely fluid-filled and mildly dilated. There is mild edema and reactive lymph nodes within the distal small bowel mesentery. There is no transition point or findings to suggest a mechanical small or large bowel obstruction. Small of free fluid in the right paracolic gutter and in the dependent pelvis. No intra-abdominal free air. Gastrojejunostomy tube is in good position. Mild pericholecystic fluid. No gallbladder wall thickening. Liver, spleen, pancreas, and adrenal glands are negative. Bilateral renal cysts. Tiny nonobstructing left renal stone. Decompressed urinary bladder with Gama catheter in good position. Mild generalized body wall edema, including a more focal region of periumbilical soft tissue edema. Diffuse osseous demineralization. No suspicious osseous lesions. Previously noted bibasilar regions of groundglass opacities have slightly decreased, and now demonstrate more confluent regions of consolidation. Partially visualized CVC with tip in the SVC/RA junction. Procedure Note Say Santana M.D. - 03/07/2024 EXAM: CT ABDOMEN PELVIS WITH IV CONTRAST COMPARISON: CT abdomen pelvis 12/26/2023 FINDINGS: Redemonstrated marked gaseous dilatation of the cecum, which is located incentral abdomen. Long and redundant sigmoid colon contains gas. Nofindings for cecal or sigmoid volvulus. Mild mural hyperenhancement in thedistal sigmoid colon and rectum. Small bowel is diffusely fluid-filled and mildly dilated. There is mildedema and reactive lymph nodes within the distal small bowel mesentery. There is no transition point or findings to suggest a mechanical small orlarge bowel obstruction. Small of free fluid in the right paracolic gutter and in the dependentpelvis. No intra-abdominal free air. Gastrojejunostomy tube is in good position. Mild pericholecystic fluid. No gallbladder wall thickening. Liver, spleen,pancreas, and adrenal glands are negative. Bilateral renal cysts. Tinynonobstructing left renal stone. Decompressed urinary bladder with Foleycatheter in good position. Mild generalized body wall edema, including a more focal region ofperiumbilical soft tissue edema. Diffuse osseous demineralization. Nosuspicious osseous lesions. Previously noted bibasilar regions of groundglass opacities have slightlydecreased, and now demonstrate more confluent regions of consolidation.Partially visualized CVC with tip in the SVC/RA junction. IMPRESSION: 1. No mechanical small or large bowel obstruction. Findings in the smalland large bowel are suggestive of a functional ileus. 2. Mild mural hyperenhancement in the distal sigmoid colon and rectumcould represent proctocolitis. 3. Persistent consolidative opacities in the perihilar lower lungs. Rashad Sal APRN, C.N.P., M.S.N. IM G CT PROCEDURES * DX Abdomen Portable Anterior Posterior 1 View (03/07/2024 1:40 PM CDT) Anatomical Region Laterality Modality Abdomen, Abdominal RST LOS, Abdominal ARZ LOS, Abdominal FLA LOS N/A Digital Radiography Impressions 03/07/2024 1:46 PM CDT Marked gaseous distention of the colon in the right upper quadrant with a coffee whitmore configuration. Consider CT with intravenous contrast to evaluate for sigmoid volvulus. No free air. Moderate gaseous distention of the descending colon. Consolidation in the lung bases. CRITICAL FINDINGS (CF): ??Findings concerning for sigmoid volvulus. Critical findings discussed with Dr. Rufus Ba at 03/07/2024 1:45 PM. Narrative 03/07/2024 1:46 PM CDT EXAM: ??DX ABDOMEN PORTABLE ANTERIOR POSTERIOR 1 VIEW Procedure Note Anastasiya Justice M.D. - 03/07/2024 EXAM: DX ABDOMEN PORTABLE ANTERIOR POSTERIOR 1 VIEW IMPRESSION: Marked gaseous distention of the colon in the right upper quadrant with acoffee whitmore configuration. Consider CT with intravenous contrast toevaluate for sigmoid volvulus. No free air. Moderate gaseous distention ofthe descending colon. Consolidation in the lung bases. CRITICAL FINDINGS (CF): Findings concerning for sigmoid volvulus. Critical findings discussed with Dr. Rufus Ba at 03/07/2024 1:45PM. Rashad Sal APRN, C.N.P., M.S.N. [facility] DIAGNOSTIC IMAGING PROCEDURES * Glucose, POCT (03/07/2024 11:49 AM CDT) Glucose, POCT, B 106 70 - 140 mg/dL 03/07/2024 11:51 AM CDT PCLX Site ARTLINE 03/07/2024 11:51 AM CDT PCLX Last Intake ContTubFdg 03/07/2024 11:51 AM CDT PCLX Blood 03/07/2024 11:4 9 AM CDT 03/07/2024 11:52 AM CDT Unknown Provider LAB POCT ORDERABLES- MANUAL POC [facility] [address] [place] [address], [facility] PCLX [facility] POC [address] [place] [address] * Apixaban, Anti-Xa, P (03/07/2024 11:13 AM CDT) Apixaban, Anti-Xa, P 148 see interpretation ng/mL 03/07/2024 12:24 PM CDT DTL Comment: ----ADDITIONAL INFORMATION---- This test has been modified from the senior finance manager's instructions. Its performance characteristics were determined by [facility] in a manner consistent with CLIA requirements. This test has not been cleared or approved by the U.S. Food and Drug Administration. Interpretation SEE COMMENT 03/07/2024 12:24 PM CDT DTL Comment: Therapeutic reference ranges have [...] daily): 120 (41-335) ng/mL Cautions SEE COMMENT 03/07/2024 12:24 PM CDT DTL Comment: This assay is not indicated for monitoring low molecular weight heparin (LMWH) or unfractionated heparin (UFH). Presence of UFH and LMWH will falsely elevate apixaban anti-Xa levels. Date/Time of Last Apixaban Dosage 8:00 AM 03/07/2024 11:34 AM CDT DTL Blood (Blood, Venous) 03/07/2024 11:13 AM CDT 03/07/2024 11:34 AM CDT Rufus Meng LAB BLOOD NON A DD-ON [facility] [address] [place] [address], [place] DTL [facility] [address] [place] [address] * Potassium (03/07/2024 11:13 AM CDT) Pathologist [facility] Potassium, P 5.2 3.6 - 5.2 mmol/L 03/07/2024 11:28 AM CDT STMA Blood (Blood, Venous) 03/07/2024 11:13 AM CDT 03/07/2024 11:17 AM CDT Rashad Sal APRN, C.N.P., M.S.NMay DELGADO BLOOD ADD-ON Performing Organization Address City/[facility]/ZIP Co de Phone Number [facility] [address] [place] [address], [facility] STMA [facility] [address] [place] [address] * Glucose, POCT (03/07/2024 9:32 AM CDT) [facility] Glucose, POCT, B 104 70 - 140 mg/dL 03/07/2024 9:34 AM CDT PCLX Site ARTLINE 03/07/2024 9:34 AM CDT PCLX Last Intake ContTubFdg 03/07/2024 9:34 AM CDT PCLX Blood 03/07/2024 9:32 AM CDT 03/07/2024 9:34 AM CDT Unknown Provider LAB POCT ORDERABLES- MANUAL Performing Organization Address City/[facility]/ZIP Co de Phone Number POC [facility] [address] [place] [address], [facility] PCLX [facility] POC [address] [place] [address] * (ABNORMAL) Cystatin C with Estimated GFR (03/07/2024 3:45 AM CDT) [facility] eGFR by Cystatin C 78 >60 mL/min/BSA 03/07/2024 9:31 AM CDT DTL Comment: Estimated GFR calculated [...] lower with the new assay. Cystatin C 1.05(H) 0.63 - 1.03 mg/L 03/07/2024 9:31 AM CDT DT Blood (Blood, Venous) 03/07/2024 3:45 AM CDT 03/07/2024 9:00 AM CDT Rufus Meng LAB BLOOD ADD-O N Performing Organization Address City/[facility]/ZIP Co de Phone Number [facility] [address] [place] [address] * (ABNORMAL) Calcium, Ionized (03/07/2024 3:45 AM CDT) [facility] Calcium, Ionized, S 4.69 4.57 - 5.43 mg/dL 03/07/2024 4:31 AM CDT DTL Comment: ----ADDITIONAL INFORMATION---- This test has been modified from the senior finance manager's instructions. Its performance characteristics were determined by [facility] in a manner consistent with CLIA requirements. This test has not been cleared or approved by the U.S. Food and Drug Administration. pH for Ionized Calcium 7.51(H) 7.35 - 7.48 03/07/2024 4:31 AM CDT DTL Blood (Blood, Venous) 03/07/2024 3:45 AM CDT 03/07/2024 4:20 AM CDT Amrita Liz APRN, C.N.P., D.N.P. LAB BLOOD NON ADD-ON [facility] [address] [place] [address], [facility] [address] [place] [address] * (ABNORMAL) CBC without Differential (03/07/2024 3:45 AM CDT) Hemoglobin 7.7(L) 13.2 - 16.6 g/dL 03/07/2024 4:10 AM CDT DTL Hematocrit 22.8(L) 38.3 - 48.6 % 03/07/2024 4:10 AM CDT DTL Erythrocytes 2.26(L) 4.35 - 5.65 x10(12)/L 03/07/2024 4:10 AM CDT DTL MCV 100.9(H) 78.2 - 97.9 fL 03/07/2024 4:10 AM CDT DTL RBC Distrib Width 13.9 11.8 - 14.5 % 03/07/2024 4:10 AM CDT DTL Platelet Count 160 135 - 317 x10(9)/L 03/07/2024 4:10 AM CDT DTL Leukocytes 5.7 3.4 - 9.6 x10(9)/L 03/07/2024 4:10 AM CDT DTL Blood (Blood, Venous) 03/07/2024 3:45 AM CDT 03/07/2024 4:04 AM CDT Ivory Paredes P.A.-C., M.S. [place] [address], [facility] [address] [place] [address] * (ABNORMAL) Basic Metabolic Panel (03/07/2024 3:45 AM CDT) Potassium, S 5.4(H) 3.6 - 5.2 mmol/L 03/07/2024 5:04 AM CDT DTL Sodium, S 135 135 - 145 mmol/L 03/07/2024 5:04 AM CDT DTL Chloride, S 96(L) 98 - 107 mmol/L 03/07/2024 5:04 AM CDT DTL Bicarbonate, S 30(H) 22 - 29 mmol/L 03/07/2024 5:04 AM CDT DTL Anion Gap 9 7 - 15 03/07/2024 5:04 AM CDT DTL BUN (Blood Urea Nitrogen), S 21 8 - 24 mg/dL 03/07/2024 5:04 AM CDT DTL Creatinine 0.50(L) 0.74 - 1.35 mg/dL 03/07/2024 5:04 AM CDT DTL Estimated GFR (eGFR) >90 >=60 mL/min/BSA 03/07/2024 5:04 AM CDT DTL Comment: Estimated GFR calculated using the 2020 CKD_EPI creatinine equation. Calcium, Total, S 8.5(L) 8.6 - 10.0 mg/dL 03/07/2024 5:04 AM CDT DTL Glucose, S 95 70 - 140 mg/dL 03/07/2024 5:04 AM CDT DTL Blood (Blood, Venous) 03/07/2024 3:45 AM CDT 03/07/2024 4:20 AM CDT Ivory Paredes P.A.-C., M.S. LAB BLO OD ADD-ON Performing Organization Address City/[facility]/[place] [address], [facility] [address] [place] [address] * Glucose, POCT (03/06/2024 8:04 PM CDT) Glucose, POCT, B 89 70 - 140 mg/dL 03/06/2024 8:07 PM CDT PCLX Site ARTLINE 03/06/2024 8:07 PM CDT PCLX Last Intake ContTubFdg 03/06/2024 8:07 PM CDT PCLX Blood 03/06/2024 8:04 PM CDT 03/06/2024 8:08 PM CDT Unknown Provider LAB POCT ORDERABLES- MANUAL POC [facility] [address] [place] [address], [place] PCLX [facility] POC [address] [place] [address] * Glucose, POCT (03/06/2024 5:46 PM CDT) Glucose, POCT, B 103 70 - 140 mg/dL 03/06/2024 5:48 PM CDT PCLX Site ARTLINE 03/06/2024 5:48 PM CDT PCLX Last Intake ContTubFdg 03/06/2024 5:48 PM CDT PCLX Blood 03/06/2024 5:46 PM CDT 03/06/2024 5:48 PM CDT Unknown Provider LAB POCT ORDERABLES- MANUAL [facility] [address] [place] [address], [place] PCLX [facility] POC [address] [place] [address] * Glucose, POCT (03/06/2024 12:10 PM CDT) Glucose, POCT, B 92 70 - 140 mg/dL 03/06/2024 12:12 PM CDT PCLX Site ARTLINE 03/06/2024 12:12 PM CDT PCLX Last Intake ContTubFdg 03/06/2024 12:12 PM CDT PCLX Blood 03/06/2024 12:1 0 PM CDT 03/06/2024 12:13 PM CDT Unknown Provider LAB POCT ORDERABLES- MANUAL [facility] [address] [place] [address], [place] PCLX [facility] [address] [place] [address] * MR Brain without IV Contrast (03/06/2024 [...] age and progressed since 2013. Neel Mccann APRNN.Thierry., M.S.N. IMG MRI PROCEDURES * Rufinamide, S (03/06/2024 8:45 AM CDT) Pathologist [facility] Rufinamide, S 14.5 5.0 - 30.0 mcg/mL 03/09/2024 2:03 PM CDT [facility] Comment: ----ADDITIONAL INFORMATION---- This test was developed and its performance characteristics determined by [facility] in a manner consistent with CLIA requirements. This test has not been cleared or approved by the U.S. Food and Drug Administration. Blood (Blood, Venous) 03/06/2024 8:45 AM CDT 03/06/2024 1:43 PM CDT Basil Miranda APRN, C.N.P. LAB BLOOD NON ADD-ON [facility] [employer] [address] [place] [address] [facility] [address] [place] [address] [place] [address] * (ABNORMAL) Levetiracetam Level (03/06/2024 8:45 AM CDT) Levetiracetam, S 86.7(H) 10.0 - 40.0 mcg/mL 03/06/2024 3:05 PM CDT [facility] Comment: ----ADDITIONAL INFORMATION---- This test was developed and its performance characteristics determined by [facility] in a manner consistent with CLIA requirements. This test has not been cleared or approved by the U.S. Food and Drug Administration. Blood (Blood, Venous) 03/06/2024 8:45 AM CDT 03/06/2024 1:11 PM CDT Neel Velasco APRNNAlexandra. LAB BLOOD NON ADD-ON Performing Organization Address [facility] Co de Phone Number [facility] [address] [place] [address] [facility] [address] [place] [address] [place] [address] * Lamotrigine Level (03/06/2024 8:45 AM CDT) Lamotrigine, S 12.9 3.0 - 15.0 mcg/mL 03/06/2024 2:44 PM CDT [facility] Comment: ----ADDITIONAL INFORMATION---- This test was developed and its performance characteristics determined by [facility] in a manner consistent with CLIA requirements. This test has not been cleared or approved by the U.S. Food and Drug Administration. Blood (Blood, Venous) 03/06/2024 8:45 AM CDT 03/06/2024 1:11 PM CDT Basil Miranda APRN, C.N.P. LAB BLOOD NON ADD-ON Performing Organization Address [facility] Co de Phone Number [facility] [address] [place] [address] [facility] [address] [place] [address] [place] [address] * (ABNORMAL) Clobazam and Metabolite (03/06/2024 8:45 AM CDT) Clobazam 221.0 30 - 300 ng/mL 03/07/2024 1:39 AM CDT [facility] N-desmethylclobazam 5420.0(H) 300 - 3000 ng/mL 03/07/2024 1:39 AM CDT [facility] Comment: ----ADDITIONAL INFORMATION---- This test was developed and its performance characteristics determined by [facility] in a manner consistent with CLIA requirements. This test has not been cleared or approved by the U.S. Food and Drug Administration. Blood (Blood, Venous) 03/06/2024 8:45 AM CDT 03/06/2024 1:40 PM CDT Basil Miranda APRN, C.N.P. LAB BLOOD ADD-ON [facility] [address] [place] [address] [facility] [address] [place] [address] [place] [address] * Glucose, POCT (03/06/2024 8:13 AM CDT) [facility] Glucose, POCT, B 107 70 - 140 mg/dL 03/06/2024 8:15 AM CDT PCLX Site ARTLINE 03/06/2024 8:15 AM CDT PCLX Last Intake ContTubFdg 03/06/2024 8:15 AM CDT PCLX Blood 03/06/2024 8:13 AM CDT 03/06/2024 8:15 AM CDT Unknown Provider LAB POCT ORDERABLES- MANUAL Performing Organization Address City/[facility] Co de Phone Number POC [facility] [address] [place] [address], [facility] PCLX [facility] POC [address] [place] [address] * EEG (03/06/2024 7:26 AM CDT) Narrative [...] M.D. NEUROLOGY ORDERABLES MMODAL NA * (ABNORMAL) CBC without Differential (03/06/2024 6:01 AM CDT) Hemoglobin 8.1(L) 13.2 - 16.6 g/dL 03/06/2024 6:40 AM CDT DTL Hematocrit 23.7(L) 38.3 - 48.6 % 03/06/2024 6:40 AM CDT DTL Erythrocytes 2.36(L) 4.35 - 5.65 x10(12)/L 03/06/2024 6:40 AM CDT DTL MCV 100.4(H) 78.2 - 97.9 fL 03/06/2024 6:40 AM CDT DTL RBC Distrib Width 13.9 11.8 - 14.5 % 03/06/2024 6:40 AM CDT DTL Platelet Count 148 135 - 317 x10(9)/L 03/06/2024 6:40 AM CDT DTL Leukocytes 4.7 3.4 - 9.6 x10(9)/L 03/06/2024 6:40 AM CDT DTL Blood (Blood, Venous) 03/06/2024 6:01 AM CDT 03/06/2024 6:33 AM CDT Ivory Paredes P.A.-C. MEfe LAB BLO OD ADD-ON [facility] [address] [place] [address], [facility] DTL [facility] [address] [place] [address] * (ABNORMAL) Basic Metabolic Panel (03/06/2024 6:01 AM CDT) [facility] Potassium, S 4.2 3.6 - 5.2 mmol/L 03/06/2024 7:11 AM CDT DTL Sodium, S 139 135 - 145 mmol/L 03/06/2024 7:11 AM CDT DTL Chloride, S 106 98 - 107 mmol/L 03/06/2024 7:11 AM CDT DTL Bicarbonate, S 25 22 - 29 mmol/L 03/06/2024 7:11 AM CDT DTL Anion Gap 8 7 - 15 03/06/2024 7:11 AM CDT DTL BUN (Blood Urea Nitrogen), S 20 8 - 24 mg/dL 03/06/2024 7:11 AM CDT DTL Creatinine 0.50(L) 0.74 - 1.35 mg/dL 03/06/2024 7:11 AM CDT DTL Estimated GFR (eGFR) >90 >=60 mL/min/BSA 03/06/2024 7:11 AM CDT DTL Comment: Estimated GFR calculated using the 2020 CKD_EPI creatinine equation. Calcium, Total, S 6.8(L) 8.6 - 10.0 mg/dL 03/06/2024 7:11 AM CDT DTL Glucose, S 79 70 - 140 mg/dL 03/06/2024 7:11 AM CDT DTL Blood (Blood, Venous) 03/06/2024 6:01 AM CDT 03/06/2024 6:41 AM CDT Ivory Paredes P.A.-C. MEfe LAB BLO OD ADD-ON [facility] [address] [place] [address], [facility] [address] [place] [address] * (ABNORMAL) Felbamate (Felbatol) Level (03/06/2024 6:01 AM CDT) Felbamate (Felbatol), S 181.6(H) 30.0 - 80.0 mcg/mL 03/06/2024 3:36 PM CDT [facility] Comment: ----ADDITIONAL INFORMATION---- This test was developed and its performance characteristics determined by [facility] in a manner consistent with CLIA requirements. This test has not been cleared or approved by the U.S. Food and Drug Administration. Blood (Blood, Venous) 03/06/2024 6:01 AM CDT 03/06/2024 9:28 AM CDT Basil Miranda APRN, C.N.P. LAB BLOOD NON ADD-ON Performing Organization Address [facility] Co de Phone Number [facility] [address] [place] [address] [facility] [address] [place] [address] [place] [address] * (ABNORMAL) Albumin (03/06/2024 5:56 AM CDT) Albumin, S 2.6(L) 3.5 - 5.0 g/dL 03/06/2024 5:24 PM CDT DTL Blood (Blood, Venous) 03/06/2024 5:56 AM CDT 03/06/2024 5:00 PM CDT Amirta Liz APRN, C.N.P., D.N.P. LAB BLOOD ADD-ON Performing Organization Address [facility] Co de Phone Number [facility] [address] [place] [address], [facility] [address] [place] [address] * Glucose, POCT (03/05/2024 7:35 PM CDT) Glucose, POCT, B 97 70 - 140 mg/dL 03/05/2024 7:37 PM CDT PCLX Site ARTLINE 03/05/2024 7:37 PM CDT PCLX Last Intake ContTubFdg 03/05/2024 7:37 PM CDT PCLX Blood 03/05/2024 7:35 PM CDT 03/05/2024 7:37 PM CDT Unknown Provider LAB POCT ORDERABLES- MANUAL Performing Organization Address City/[facility]/ZIP Co de Phone Number POC [facility] [address] [place] [address], [facility] PCLX [facility] [address] [place] [address] * Glucose, POCT (03/05/2024 5:32 PM CDT) Glucose, POCT, B 94 70 - 140 mg/dL 03/05/2024 5:33 PM CDT PCLX Site ARTLINE 03/05/2024 5:33 PM CDT PCLX Last Intake ContTubFdg 03/05/2024 5:33 PM CDT PCLX Blood 03/05/2024 5:32 PM CDT 03/05/2024 5:34 PM CDT Unknown Provider LAB POCT ORDERABLES- MANUAL Performing Organization Address City/[facility]/ZIP Co de Phone Number POC [facility] [address] [place] [address], [place] PCLX [facility] [address] [place] [address] * Glucose, POCT (03/05/2024 7:13 AM CDT) Glucose, POCT, B 113 70 - 140 mg/dL 03/05/2024 7:14 AM CDT PCLX Site ARTLINE 03/05/2024 7:14 AM CDT PCLX Last Intake ContTubFdg 03/05/2024 7:14 AM CDT PCLX Blood 03/05/2024 7:13 AM CDT 03/05/2024 7:14 AM CDT Unknown Provider LAB POCT ORDERABLES- MANUAL Performing Organization Address City/[facility]/ZIP Co de Phone Number POC [facility] [address] [place] [address], [facility] PCLX [facility] POC [address] [place] [address] * (ABNORMAL) Phosphorus Inorganic (03/05/2024 5:19 AM CDT) Pathologist [facility] Phosphorus (Inorganic), S 4.7(H) 2.5 - 4.5 mg/dL 03/05/2024 6:46 AM CDT DTL Blood (Blood, Venous) 03/05/2024 5:19 AM CDT 03/05/2024 6:18 AM CDT Basil Miranda APRN, C.N.P. LAB BLOOD ADD-ON Performing Organization Address City/[facility] Co de Phone Number [facility] [address] [place] [address], [facility] [address] [place] [address] * Magnesium (03/05/2024 5:19 AM CDT) Pathologist [facility] Magnesium, S 1.7 1.7 - 2.3 mg/dL 03/05/2024 6:46 AM CDT DTL Blood (Blood, Venous) 03/05/2024 5:19 AM CDT 03/05/2024 6:18 AM CDT Basil Miranda APRN, C.N.P. LAB BLOOD ADD-ON Performing Organization Address City/[facility]/ZIP Co de Phone Number [facility] [address] [place], [place] [address] [address] [place] [address] * (ABNORMAL) CBC without Differential (03/05/2024 5:19 AM CDT) Pathologist [facility] Hemoglobin 8.3(L) 13.2 - 16.6 g/dL 03/05/2024 6:18 AM CDT DTL Hematocrit 25.1(L) 38.3 - 48.6 % 03/05/2024 6:18 AM CDT DTL Erythrocytes 2.50(L) 4.35 - 5.65 x10(12)/L 03/05/2024 6:18 AM CDT DTL MCV 100.4(H) 78.2 - 97.9 fL 03/05/2024 6:18 AM CDT DTL RBC Distrib Width 13.8 11.8 - 14.5 % 03/05/2024 6:18 AM CDT DTL Platelet Count 155 135 - 317 x10(9)/L 03/05/2024 6:18 AM CDT DTL Leukocytes 5.1 3.4 - 9.6 x10(9)/L 03/05/2024 6:18 AM CDT DTL Blood (Blood, Venous) 03/05/2024 5:19 AM CDT 03/05/2024 6:09 AM CDT Ivory Paredes P.A.-C., M.S. LAB BLO OD ADD-ON [address] [address], [facility] [place] [address] * (ABNORMAL) Basic Metabolic Panel (03/05/2024 5:19 AM CDT) Pathologist [facility] Potassium, S 4.8 3.6 - 5.2 mmol/L 03/05/2024 6:46 AM CDT DTL Sodium, S 135 135 - 145 mmol/L 03/05/2024 6:46 AM CDT DTL Chloride, S 98 98 - 107 mmol/L 03/05/2024 6:46 AM CDT DTL Bicarbonate, S 26 22 - 29 mmol/L 03/05/2024 6:46 AM CDT DTL Anion Gap 11 7 - 15 03/05/2024 6:46 AM CDT DTL BUN (Blood Urea Nitrogen), S 17 8 - 24 mg/dL 03/05/2024 6:46 AM CDT DTL Creatinine 0.62(L) 0.74 - 1.35 mg/dL 03/05/2024 6:46 AM CDT DTL Estimated GFR (eGFR) >90 >=60 mL/min/BSA 03/05/2024 6:46 AM CDT DTL Comment: Estimated GFR calculated using the 2020 CKD_EPI creatinine equation. Calcium, Total, S 8.5(L) 8.6 - 10.0 mg/dL 03/05/2024 6:46 AM CDT DTL Glucose, S 101 70 - 140 mg/dL 03/05/2024 6:46 AM CDT DTL Blood (Blood, Venous) 03/05/2024 5:19 AM CDT 03/05/2024 6:18 AM CDT Ivory Paredes P.A.-C., M.S. LAB BLO OD ADD-ON [facility] [address] [place] [address], [facility] DTL [facility] [address] [place] [address] * Glucose, POCT (03/04/2024 7:48 PM CDT) Glucose, POCT, B 91 70 - 140 mg/dL 03/04/2024 7:49 PM CDT PCLX Site ARTLINE 03/04/2024 7:49 PM CDT PCLX Last Intake ContTubFdg 03/04/2024 7:49 PM CDT PCLX Blood 03/04/2024 7:48 PM CDT 03/04/2024 7:50 PM CDT Unknown Provider LAB POCT ORDERABLES- MANUAL [facility] [address] [place] [address], [facility] PCLX [facility] [address] [place] [address] * Glucose, POCT (03/04/2024 5:25 PM CDT) Glucose, POCT, B 99 70 - 140 mg/dL 03/04/2024 5:26 PM CDT PCLX Site ARTLINE 03/04/2024 5:26 PM CDT PCLX Last Intake ContTubFdg 03/04/2024 5:26 PM CDT PCLX Blood 03/04/2024 5:25 PM CDT 03/04/2024 5:27 PM CDT Unknown Provider LAB POCT ORDERABLES- MANUAL Performing Organization Address City/[facility]/ZIP Co de Phone Number POC [facility] [address] [place] [address], [facility] PCLX [facility] POC [address] [place] [address] * Glucose, POCT (03/04/2024 11:46 AM CDT) Glucose, POCT, B 97 70 - 140 mg/dL 03/04/2024 11:47 AM CDT PCLX Site ARTLINE 03/04/2024 11:47 AM CDT PCLX Last Intake ContTubFdg 03/04/2024 11:47 AM CDT PCLX Blood 03/04/2024 11:4 6 AM CDT 03/04/2024 11:48 AM CDT Unknown Provider LAB POCT ORDERABLES- MANUAL Performing Organization Address City/[facility]/ZIP Co de Phone Number POC [facility] [address] [place] [address], [place] PCL[facility] [address] [place] [address] * Glucose, POCT (03/04/2024 7:22 AM CDT) Glucose, POCT, B 106 70 - 140 mg/dL 03/04/2024 7:24 AM CDT PCLX Site ARTLINE 03/04/2024 7:24 AM CDT PCLX Last Intake ContTubFdg 03/04/2024 7:24 AM CDT PCLX Blood 03/04/2024 7:22 AM CDT 03/04/2024 7:24 AM CDT Unknown Provider LAB POCT ORDERABLES- MANUAL Performing Organization Address City/[facility]/ZIP Co de Phone Number POC [facility] [address] [place] [address], [facility] PCLX [facility] POC [address] [place] [address] * (ABNORMAL) CBC without Differential (03/04/2024 3:27 AM CDT) Hemoglobin 8.9(L) 13.2 - 16.6 g/dL 03/04/2024 [...] Paredes P.A.-C., M.S. LAB BLO OD ADD-ON [facility] [address] [place] [address], [facility] [address] [place] [address] * (ABNORMAL) Basic Metabolic Panel (03/04/2024 3:27 AM CDT) Pathologist [facility] Potassium, S 4.5 3.6 - 5.2 mmol/L [...] Paredes P.A.-C., M.S. LAB BLO OD ADD-ON [facility] [address] [place] [address], [facility] [address] [place] [address] * Phosphorus Inorganic (03/04/2024 3:27 AM CDT) Phosphorus (Inorganic), S 4.2 2.5 - 4.5 mg/dL 03/04/2024 4:21 AM CDT DTL Blood (Blood, Venous) 03/04/2024 3:27 AM CDT 03/04/2024 3:58 AM CDT Basil Miranda APRN CMayNMayPMay LAB BLOOD ADD-ON [facility] [address] [place] [address], [facility] DTL [facility] [address] [place] [address] * Glucose, POCT (03/03/2024 8:48 PM CDT) Glucose, POCT, B 91 70 - 140 mg/dL 03/03/2024 8:49 PM CDT PCLX Site ARTLINE 03/03/2024 8:49 PM CDT PCLX Last Intake ContTubFdg 03/03/2024 8:49 PM CDT PCLX Blood 03/03/2024 8:48 PM CDT 03/03/2024 8:49 PM CDT Unknown Provider LAB POCT ORDERABLES- MANUAL [facility] [address] [place] [address], [place] PCLX [facility] [address] [place] [address] * Glucose, POCT (03/03/2024 5:23 PM CDT) Glucose, POCT, B 93 70 - 140 mg/dL 03/03/2024 5:24 PM CDT PCLX Site ARTLINE 03/03/2024 5:24 PM CDT PCLX Last Intake ContTubFdg 03/03/2024 5:24 PM CDT PCLX Blood 03/03/2024 5:23 PM CDT 03/03/2024 5:25 PM CDT Unknown Provider LAB POCT ORDERABLES- MANUAL [facility] [address] [place] [address], [place] [facility] [address] [place] [address] * Glucose, POCT (03/03/2024 12:23 PM CDT) Glucose, POCT, B 99 70 - 140 mg/dL 03/03/2024 12:24 PM CDT [facility] Site ARTLINE 03/03/2024 12:24 PM CDT [facility] Blood 03/03/2024 12:2 3 PM CDT 03/03/2024 12:25 PM CDT Unknown Provider LAB POCT ORDERABLES- MANUAL Performing Organization Address City/[facility]/ZIP Co de Phone Number POC [facility] [address] [place] [address], [facility] [address] [place] [address] * Glucose, POCT (03/03/2024 7:38 AM CDT) Pathologist [facility] [place] Glucose, POCT, B 84 70 - 140 mg/dL 03/03/2024 7:39 AM CDT [facility] Site ARTLINE 03/03/2024 7:39 AM CDT [facility] Last Intake NPO 03/03/2024 7:39 AM CDT [facility] Blood 03/03/2024 7:38 AM CDT 03/03/2024 7:40 AM CDT Unknown Provider LAB POCT ORDERABLES- MANUAL Performing Organization Address [facility] Co de Phone Number [facility] [address] [place] [address], [facility] [address] [place] [address] * (ABNORMAL) CBC without Differential (03/03/2024 4:03 [...] CDT 03/03/2024 4:27 AM CDT Ivory Paredes P.A.-C., M.S. LAB BLO OD ADD-ON [facility] [address] [place] [address], [facility] [address] [place] [address] * (ABNORMAL) Basic Metabolic Panel (03/03/2024 4:03 AM CDT) Pathologist [facility] [place] Potassium, S 4.3 3.6 - 5.2 mmol/L [...] LAB BLO OD ADD-ON Performing Organization Address City/[facility]/ZIP Co de Phone Number [facility] [address] DTL [facility] [address] [place] [address] * Glucose, POCT (03/02/2024 9:59 PM CDT) Glucose, POCT, B 98 70 - 140 mg/dL 03/02/2024 10:00 PM CDT PCLX Blood 03/02/2024 9:59 PM CDT 03/02/2024 10:01 PM CDT Unknown Provider LAB POCT ORDERABLES- MANUAL Performing Organization Address [facility] de Phone Number POC [facility] [address] [place] [address], [facility] P[facility] POC [address] [place] [address] * Patient Status (03/02/2024 5:15 PM CDT) FIO2 0.30 0.21=AIR 03/02/2024 5:1 8 PM CDT STMA Device Vent 03/02/2024 5:1 8 PM CDT STMA Blood 03/02/2024 5:15 PM CDT 03/02/2024 5:18 PM CDT Gardenia Gordillo APRN C.N.P., M.S.N. LAB BLOOD NON ADD-ON Performing Organization Address City/[facility]/ZIP Co de Phone Number [facility] [address] [place], [place] [id number] [place] [address] [address] [place] [address] * Blood Gas without Coox, Arterial (03/02/2024 5:15 PM CDT) Pathologist [facility] pO2 88 83 - 108 mm Hg [...] APRN C.N.P., M.S.N. LAB BLOOD NON ADD-ON [facility] [address] [place], [place] [id number] [place] [address] [address] [place] [address] * Glucose, POCT (03/02/2024 5:13 PM CDT) [facility] Glucose, POCT, B 86 70 - 140 mg/dL 03/02/2024 5:41 PM CDT PCLX Site ARTLINE 03/02/2024 5:41 PM CDT PCLX Blood 03/02/2024 5:13 PM CDT 03/02/2024 5:42 PM CDT Unknown Provider LAB POCT ORDERABLES- MANUAL [facility]OC [facility] [address] [place] [address], [facility] POC [address] [place] [address] * DX Chest Portable Post PICC Placement [...] PROCEDURES * Ammonia (03/02/2024 12:50 PM CDT) Pathologist [facility] Ammonia, P 27 <=30 mcmol/L 03/02/2024 1:36 PM CDT DTL Blood (Blood, Arterial) 03/02/2024 12:50 PM CDT 03/02/2024 1:06 PM CDT Gardenia Gordillo APRN, C.N.P., M.S.N. LAB BLOOD NON ADD-ON [facility] [address] [place] [address], [facility] DTL [facility] [address] [place] [address] * Glucose, POCT (03/02/2024 12:29 PM CDT) [facility] Glucose, POCT, B 111 70 - 140 mg/dL 03/02/2024 12:31 PM CDT PCLX Site ARTLINE 03/02/2024 12:31 PM CDT PCLX Last Intake ContTubFdg 03/02/2024 12:31 PM CDT PCLX Blood 03/02/2024 12:2 9 PM CDT 03/02/2024 12:31 PM CDT Unknown Provider LAB POCT ORDERABLES- MANUAL POC [facility] [address] [place] [address], [facility] P[facility] POC [address] [place] [address] * Place peripherally inserted central catheter (PICC) [...] PROCE DURE/MINOR SURGICAL ORDERABLES MMODAL NA * Rufinamide, S (03/02/2024 11:18 AM CDT) Rufinamide, S 11.6 5.0 - 30.0 mcg/mL 03/04/2024 2:22 PM CDT [facility] Comment: ----ADDITIONAL INFORMATION---- This test was developed and its performance characteristics determined by [facility] in a manner consistent with CLIA requirements. This test has not been cleared or approved by the U.S. Food and Drug Administration. Blood (Blood, Arterial) 03/02/2024 11:18 AM CDT 03/02/2024 6:03 PM CDT Gardenia Gordillo APRN, C.N.P., M.S.N. LAB BLOOD NON ADD-ON [facility] [address] [place] [id number] [facility] [address] [place] [address] [place] [id number] * (ABNORMAL) Levetiracetam Level (03/02/2024 11:18 AM CDT) Levetiracetam, S 134.2(H) 10.0 - 40.0 mcg/mL 03/03/2024 11:29 AM CDT [facility] Comment: ----ADDITIONAL INFORMATION---- This test was developed and its performance characteristics determined by [facility] in a manner consistent with CLIA requirements. This test has not been cleared or approved by the U.S. Food and Drug Administration. Blood (Blood, Arterial) 03/02/2024 11:18 AM CDT 03/02/2024 2:48 PM CDT Gardenia Gordillo APRN, C.N.P., M.S.N. LAB BLOOD NON ADD-ON [facility] [address] [place] [id number] [facility] [address] [place] [address] [place] [address] * Lamotrigine Level (03/02/2024 11:18 AM CDT) Lamotrigine, S 19.4 3.0 - 15.0 mcg/mL 03/03/2024 12:03 PM CDT [facility] Comment: ----ADDITIONAL INFORMATION---- This test was developed and its performance characteristics determined by [facility] in a manner consistent with CLIA requirements. This test has not been cleared or approved by the U.S. Food and Drug Administration. Blood (Blood, Arterial) 03/02/2024 11:18 AM CDT 03/02/2024 2:48 PM CDT Gardenia Gordillo APRN, C.N.P., M.S.N. LAB BLOOD NON ADD-ON Performing Organization Address [facility] Co de Phone Number [facility] [address] [place] [address] [facility] [address] [place] [address] [place] [id number] * (ABNORMAL) Felbamate (Felbatol) Level (03/02/2024 11:18 AM CDT) Felbamate (Felbatol), S 246.2(H) 30.0 - 80.0 mcg/mL 03/03/2024 3:14 PM CDT [facility] Comment: ----ADDITIONAL INFORMATION---- This test was developed and its performance characteristics determined by [facility] in a manner consistent with CLIA requirements. This test has not been cleared or approved by the U.S. Food and Drug Administration. Blood (Blood, Arterial) 03/02/2024 11:18 AM CDT 03/02/2024 6:03 PM CDT Gardenia Gordillo APRN, C.N.P., M.S.N. LAB BLOOD NON ADD-ON Performing Organization Address City/[facility]/ZIP Co de Phone Number [facility] [address] [place] [address] [facility] [address] [place] [address] [place] [address] * (ABNORMAL) Clobazam and Metabolite (03/02/2024 11:18 AM CDT) Clobazam 269.0 30 - 300 ng/mL 03/04/2024 7:58 AM CDT [facility] N-desmethylclobazam 5810.0(H) 300 - 3000 ng/mL 03/04/2024 7:58 AM CDT [facility] Comment: ----ADDITIONAL INFORMATION---- This test was developed and its performance characteristics determined by [facility] in a manner consistent with CLIA requirements. This test has not been cleared or approved by the U.S. Food and Drug Administration. Blood (Blood, Arterial) 03/02/2024 11:18 AM CDT 03/03/2024 3:02 PM CDT Girish Donald APRN.N.P., M.S.N. LAB BLOOD ADD-ON [facility] [address] [place] [address] [facility] [address] [place] [address] [place] [address] * (ABNORMAL) CBC without Differential (03/02/2024 10:35 AM CDT) Pathologist [facility] Hemoglobin 9.6(L) 13.2 - 16.6 g/dL 03/02/2024 [...] - 9.6 x10(9)/L 03/02/2024 11:13 AM CDT DH[facility] Blood (Blood, Venous) 03/02/2024 10:35 AM CDT 03/02/2024 10:45 AM CDT Ivory Paredes P.A.-C. MMayS. LAB BLO OD ADD-ON [facility] [address] [place] [address], [facility] [address] [place] [address] [facility] [address] [place] [address] * CT Head without IV Contrast (03/02/2024 [...] * Glucose, POCT (03/02/2024 7:49 AM CDT) Pathologist [facility] Glucose, POCT, B 93 70 - 140 mg/dL 03/02/2024 7:54 AM CDT PCLX Site Capillary 03/02/2024 7:54 AM CDT PCLX Last Intake ContTubFdg 03/02/2024 7:54 AM CDT PCLX Blood 03/02/2024 7:49 AM CDT 03/02/2024 7:54 AM CDT Unknown Provider LAB POCT ORDERABLES- MANUAL Performing Organization Address City/[facility]/ZIP Co de Phone Number [facility]OC [facility] [address] [place] [address], [facility] P[facility] POC [address] [place] [address] * Patient Status (03/02/2024 3:46 AM CDT) Pathologist [facility] FIO2 0.35 0.21=AIR 03/02/2024 3:5 0 AM CDT STMA Device Vent 03/02/2024 3:5 0 AM CDT STMA Blood 03/02/2024 3:46 AM CDT 03/02/2024 3:50 AM CDT Ivory Paredes P.A.-C., M.S. LAB BLO OD NON ADD-ON Performing Organization Address City/[facility]/ZIP Co de Phone Number [facility] [address] [place] [address], [facility] STMA [facility] [address] [place] [address] * (ABNORMAL) Blood Gas without Coox, Arterial [...] P.A.-C., M.S. LAB BLO OD NON ADD-ON [facility] [address] [place] [address], [facility] [address] [place] [address] * (ABNORMAL) Comprehensive Metabolic Panel (03/02/2024 3:46 AM CDT) Potassium, S 4.1 3.6 - 5.2 mmol/L [...] Gordillo APRN, C.N.P., M.S.N. LAB BLOOD ADD-ON [facility] [address] [place] [address], [facility] DTL [facility] [address] [place] [address] * (ABNORMAL) CBC without Differential (03/02/2024 3:46 [...] CDT 03/02/2024 4:21 AM CDT Gardenia Gordillo APRN C.N.P., M.S.N. LAB BLOOD ADD-ON [address] [facility] [address] [place] [address] * (ABNORMAL) Cystatin C with Estimated GFR (03/02/2024 3:42 AM CDT) eGFR by Cystatin C 76 >60 mL/min/BSA [...] LAB BLOOD ADD-ON [facility] [address] [place] [address], [facility] [address] [place] [address] * Cell Count and Differential, Bronchoalveolar Lavage [...] This test has been modified from the senior finance manager's instructions. Its performance characteristics were determined by [facility] in a manner consistent with CLIA requirements. This test has not been cleared or approved by the U.S. Food and Drug Administration. Volume Recovered 25 mL 03/02/20 3:03 AM CDT DH[facility] Alveolar Macrophage 15 % 03/02 4:08 AM CDT [facility] Comment: ----REFERENCE VALUE---- The reference range and other method performance specifications have not been established for this body fluid. The test result must be integrated into the clinical context for interpretation. Lymphocytes 3 % 03/02/2024 4:08 AM CDT [facility] Comment: ----REFERENCE VALUE---- The reference range and other method performance specifications have not been established for this body fluid. The test result must be integrated into the clinical context for interpretation. Neutrophils 76 % 03/02/2024 4:08 AM CDT PM Comment: ----REFERENCE VALUE---- The reference range and other method performance specifications have not been established for this body fluid. The test result must be integrated into the clinical context for interpretation. Other Cells 6 % 03/02/2024 4:08 AM CDT [facility] Comment: ----REFERENCE VALUE---- The reference range and other method performance specifications have not been established for this body fluid. The test result must be integrated into the clinical context for interpretation. Comment See Comment 03/02/2024 10:55 AM CDT [facility] Comment:Others are lining ce lls.Bacteria present. Fluid 03/02/2024 2:38 AM CDT 03/02/2024 2:38 AM CDT Ivory Paredes P.A.-C. MMayS. LAB BOD Y FLUIDS AND STOOLS ORDERABLES Performing Organization Address [facility]/ZIP Co de Phone Number [facility] [address] [place] [address] * Bacterial Culture, Aerobic + Susceptibility, Respiratory (03/02/2024 12:44 AM CDT) Bacterial Culture, Aerobic, Resp No growth after 2 days of incubation. 03/04/2024 10:44 AM CDT [facility] Lavage (Bronchoalveolar Lavage) 03/02/2024 12:44 AM CDT 03/02/2024 1:36 AM CDT Comment:Specimen Source Site : Lavage Ivory Paredes P.A.-C. M.S. LAB FARIHA ROBIOLOGY - GENERAL ORDERABLES Performing Organization Address City/[facility]/ZIP Co de Phone Number [facility] [address] [place] [address], [address] [address] * Legionella Antigen, Urine (03/02/2024 12:44 AM CDT) Legionella Ag, U Negative Negative 03/02/20 2:20 PM CDT [facility] Comment: Negative for L. pneumophila [...] AM CDT Ivory Paredes P.A.-C. MMaySMay LAB [facility] ROBIOLOGY - GENERAL ORDERABLES Performing Organization Address [facility] Co de Phone Number [facility] [address] [place] [address] [facility] [address] [place] [address] [place] [address] * Streptococcus pneumoniae Antigen, Urine (03/02/2024 12:44 AM CDT) [facility] Streptococcus pneumoniae Ag, U Negative Negative 03/02/2024 2:42 PM CDT [facility] Comment: Negative for pneumococcal pneumonia, [...] ROBIOLOGY - GENERAL ORDERABLES Performing Organization Address City/[facility] Co de Phone Number [facility] [address] [place] [address] [facility] [address] [place] [address] [place] [address] * DX Chest Portable 1 View (03/01/2024 [...] opacities in the lower lungs. Ivory Paredes P.A.-C. MMayS. IMG QUITA GNOSTIC IMAGING PROCEDURES * Patient Status (03/01/2024 11:08 PM CDT) Pathologist [facility] FIO2 0.40 0.21=AIR 03/01/2024 11: 15 PM CDT ST[facility] Device Vent 03/01/2024 11: 15 PM CDT ST[facility] Blood 03/01/2024 11:0 8 PM CDT 03/01/2024 11:15 PM CDT Ivory Paredes P.A.-C. MMayS. LAB BLO OD NON ADD-ON [facility] [address] [place] [address], [facility] STMA [facility] [address] [place] [address] * Bacteria / Christopher Culture, Blood #1 (03/01/2024 11:08 PM CDT) [facility] Bacteria/Isabell da Culture, Blood No growth after 5 days of incubation. 03/07/2024 1:02 AM CDT DTL Blood (Blood, Peripheral Draw) 03/01/2024 11:08 PM CDT 03/01/2024 11:26 PM CDT Comment:Specimen Source Site : Blood Ivory Paredes P.A.-C. M.S. LAB FARIHA ROBIOLOGY - GENERAL ORDERABLES Performing Organization Address City/[facility]/ZIP Co de Phone Number [facility] [address] [place] [address], [facility] DTL [facility] [address] [place] [address] * (ABNORMAL) Blood Gas without Coox, Arterial (03/01/2024 11:08 PM CDT) pO2 73(L) 83 - 108 mm Hg [...] 11:08 PM CDT 03/01/2024 11:15 PM CDT Ivory Paredes P.A.-C., M.S. LAB BLO OD NON ADD-ON [facility] [address] [place] [address], [facility] [address] [place] [address] * Cystatin C with Estimated GFR (03/01/2024 11:07 PM CDT) Pathologist [facility] eGFR by Cystatin C 81 >60 mL/min/BSA [...] CDT 03/01/2024 11:35 PM CDT Ivory Paredes P.A.-C., M.S. LAB BLO OD ADD-ON Performing Organization Address City/[facility] Co de Phone Number [facility] [address] [place] [address] * Bacteria / Christopher Culture, Blood #2 (03/01/2024 11:07 PM CDT) Bacteria/Isabell da Culture, Blood No growth after 5 days of incubation. 03/07/2024 1:02 AM CDT DTL Blood (Blood, Peripheral Draw) 03/01/2024 11:07 PM CDT 03/01/2024 11:25 PM CDT Comment:Specimen Source Site : Blood Ivory Paredes P.A.-C., M.S. LAB FARIHA ROBIOLOGY - GENERAL ORDERABLES Performing Organization Address [facility] Co de Phone Number [facility] [address] [place] [address], [place] [address] * Invasive Line (03/01/2024 10:55 PM CDT) [...] Wes Meng PROCEDURE/MINOR RANDOLPH RGICAL ORDERABLES * SC BRONCHOSCOPY W ALVEOLAR LAVAGE (03/01/2024 10:30 PM [...] PHYLICIA participated or performed the procedure. The aviation consultant participated in or was aware of the procedure. Ivory Paredes P.A.-C., M.SMay PROCEDU RE/MINOR SURGICAL ORDERABLES * SC INTUB W ETT, LDA ANE ENDOTRACHEAL AIRWAY (03/01/2024 10:00 PM CDT) Narrative Tam Brower M.D. - 03/01/2024 10:00 PM CDT Ivory Paredes P.A.-C., M.S. ? 03/01/2024 10:37 PM Intubation Performed by: Ivory Paredes P.A.-C., M.SMay Authorized by: Ivory Paredes P.A.-C., M.SMay ?? Care team members present 1. Tam Brower M.D. Patient location during procedure: ICU / PCU PROCEDURE DETAILS: Mask difficulty assessment: easy mask Final airway type: video laryngoscope Laryngeal Manipulation: no ?? Final best view of glottic structures - Cormack/Lehane Score: grade 2A ETT location: oral VL device: glide scope Clark scope blade size: 4 Tube size: 7.5 [...] PHYLICIA participated or performed the procedure. The aviation consultant participated in or was aware of the procedure. Ivory Paredes P.A.-C. M.S. ANESTHE BANDAR ORDERABLES * Patient Status (03/01/2024 9:02 PM CDT) FIO2 0.28 0.21=AIR 03/01/2024 9:07 PM CDT ST[facility] O2 Flow 8.0 L/min 03/01/2024 9:07 PM CDT [facility] Device CFM 03/01/2024 9:07 PM CDT [facility] Spont. breaths/min 25 03/01/2024 9:07 PM CDT [facility] Blood 03/01/2024 9:02 PM CDT 03/01/2024 9:07 PM CDT Ivory Paredes P.A.-C., M.S. LAB BLO OD NON ADD-ON [facility] [address] [place], [place] [address] [address] [place] [address] * (ABNORMAL) Blood Gas without Coox, Venous [...] P.A.-C., M.S. LAB BLO OD NON ADD-ON [facility] [address] [place], [place] [address] [address] [place] [address] * DX Chest Portable 1 View (03/01/2024 [...] ??DX CHEST PORTABLE 1 VIEW Procedure Note Yaneli, Meena L, M.D. - 03/02/2024 EXAM: DX CHEST PORTABLE [...] PM CDT Ivory Paredes P.A.-C. MMayS. LAB HIS TORICAL ORDERS [facility] [address] [place] [address], [facility] [address] [place] [address] * Type and Screen (with Reflex Antibody ID) (03/01/2024 8:59 PM CDT) Pathologist [facility] ABORh O Pos Not applicable 03/01/2024 9:30 PM CDT STRM Antibody Screen Negative Negative 03/01/2024 9:49 PM CDT STRM Type & Screen Expiration 03/04/2024 23:59 03/01/2024 9:30 PM CDT STRM Testing Location [place] DEFAULT 03/01/2024 9:09 PM CDT STRM Blood (Blood, Venous) 03/01/2024 8:59 PM CDT 03/01/2024 9:09 PM CDT Ivory Paredes P.A.-C. M.S. LAB BLO OD BANK TEST ORDERABLES [facility] [address] [place] [address], [facility] [address] [place] [address] * (ABNORMAL) Hepatic Function Panel (03/01/2024 8:59 [...] Paredes P.A.-C., M.S. LAB BLO OD ADD-ON [facility] [address] [place] [address], [place] DTL [facility] [address] [place] [address] * Lactate (03/01/2024 8:59 PM CDT) Lactate, P 1.4 0.5 - 2.2 mmol/L 03/01/2024 9:22 PM CDT [facility] Blood (Blood, Venous) 03/01/2024 8:59 PM CDT 03/01/2024 9:07 PM CDT Ivory Paredes P.A.-C., M.S. LAB BLO OD NON ADD-ON Performing Organization Address City/[facility]/ZIP Co de Phone Number [facility] [address] [place] [address], [facility] [address] [place] [address] * Calcium, Ionized (03/01/2024 8:59 PM CDT) Calcium, Ionized, B 5.17 4.65 - 5.30 mg/dL 03/01/2024 9:10 PM CDT [facility] Blood (Blood, Venous) 03/01/2024 8:59 PM CDT 03/01/2024 9:07 PM CDT Ivory Paredes P.A.-C., M.S. LAB BLO OD NON ADD-ON Performing Organization Address City/[facility] Co de Phone Number [facility] [address] [place] [address], [facility] [address] [place] [address] * Phosphorus Inorganic (03/01/2024 8:59 PM CDT) Phosphorus (Inorganic), S 3.0 2.5 - 4.5 mg/dL 03/01/2024 10:19 PM CDT DTL Blood (Blood, Venous) 03/01/2024 8:59 PM CDT 03/01/2024 9:43 PM CDT Ivory Paredes P.A.-C., M.S. LAB BLO OD ADD-ON Performing Organization Address City/[facility]/ZIP Co de Phone Number [facility] [address] [place] [address], [facility] [address] [place] [address] * Magnesium (03/01/2024 8:59 PM CDT) Magnesium, S 1.8 1.7 - 2.3 mg/dL 03/01/2024 10:19 PM CDT DTL Blood (Blood, Venous) 03/01/2024 8:59 PM CDT 03/01/2024 9:43 PM CDT Ivory Paredes P.A.-C., M.S. LAB BLO OD ADD-ON [facility] [address] [place] [address], [facility] [address] [place] [address] * (ABNORMAL) Basic Metabolic Panel (03/01/2024 8:59 PM CDT) Potassium, P 4.5 3.6 - 5.2 mmol/L [...] 03/01/2024 9:07 PM CDT Ivory Paredes P.A.-C., MMaySMay LAB BLO OD ADD-ON Performing Organization Address City/[facility]/ZIP Co de Phone Number [facility] [address] STMA [facility] [address] [place] [address] * (ABNORMAL) CBC without Differential (03/01/2024 8:59 PM CDT) Hemoglobin 9.9(L) 13.2 - 16.6 g/dL 03/01/2024 [...] - 9.6 x10(9)/L 03/01/2024 10:01 PM CDT [facility] Blood (Blood, Venous) 03/01/2024 8:59 PM CDT 03/01/2024 9:07 PM CDT Ivory Paredes P.A.-C. MMaySMay LAB BLO OD ADD-ON Performing Organization Address City/[facility]/ZIP Co de Phone Number [facility] [address] [place] [address], [facility] STMA [facility] [address] [place] [address] [facility] [address] [place] [address] * Glucose, POCT (03/01/2024 8:53 PM CDT) Pathologist [facility] Glucose, POCT, B 97 70 - 140 mg/dL 03/01/2024 8:56 PM CDT PCLX Site Capillary 03/01/2024 8:56 PM CDT PCLX Blood 03/01/2024 8:53 PM CDT 03/01/2024 8:57 PM CDT Unknown Provider LAB POCT ORDERABLES- MANUAL [facility] [address] [place] [address], [facility] PCLX [facility] POC [address] [place] [address] * Glucose, POCT (03/01/2024 5:12 PM CDT) [facility] Glucose, POCT, B 79 70 - 140 mg/dL 03/01/2024 5:14 PM CDT PCLX Site Capillary 03/01/2024 5:14 PM CDT PCLX Last Intake ContTubFdg 03/01/2024 5:14 PM CDT PCLX Blood 03/01/2024 5:12 PM CDT 03/01/2024 5:14 PM CDT Unknown Provider LAB POCT ORDERABLES- MANUAL [facility] [address] [place] [address], [facility] PCLX [facility] POC [address] [place] [address] * Lactate (03/01/2024 2:05 PM CDT) Pathologist [facility] Lactate, P 1.4 0.5 - 2.2 mmol/L 03/01/2024 2:24 PM CDT [facility] Blood (Blood, Venous) 03/01/2024 2:05 PM CDT 03/01/2024 2:10 PM CDT Gardenia Fawad Gordillo APRN, C.N.P., M.S.N. LAB BLOOD NON ADD-ON [facility] [address] [place] [address], [facility] Laboratories[facility] [address] [place] [address] * (TTE) 2D ECHO DOPPLER COLOR AND CONTRAST (03/01/2024 12:44 PM CDT) Pathologist [facility] Ejection Fraction 66 MC CV EIMS [facility] [...] Unknown Provider LAB POCT ORDERABLES- MANUAL POC [facility] [address] [place] [address], [facility] PCLX [facility] POC [address] [place] [address] * DX Chest Portable 1 View (03/01/2024 [...] 9:51 AM CDT 03/01/2024 9:56 AM CDT Gardenia Gordillo APRN, C.N.P., M.S.N. LAB BLOOD NON ADD-ON Performing Organization Address City/[facility] Co de Phone Number [facility] [address] [place] [address], [facility] [address] [place] [address] * (ABNORMAL) Blood Gas without Coox, Arterial [...] 9:51 AM CDT 03/01/2024 9:56 AM CDT Gardenia Gordillo APRN, C.N.P., M.S.N. LAB BLOOD NON ADD-ON Performing Organization Address City/[facility]/ZIP Co de Phone Number [facility] [address] [place] [address], [facility] [address] [place] [address] * Glucose, POCT (03/01/2024 9:06 AM CDT) Glucose, POCT, B 81 70 - 140 mg/dL 03/01/2024 9:08 AM CDT PCLX Site Capillary 03/01/2024 9:08 AM CDT PCLX Blood 03/01/2024 9:06 AM CDT 03/01/2024 9:08 AM CDT Unknown Provider LAB POCT ORDERABLES- MANUAL Performing Organization Address City/[facility]/ZIP Co de Phone Number [facility] [facility] [address] [place] [address], [facility] [address] [place] [address] * (ABNORMAL) CBC without Differential (03/01/2024 4:33 AM CDT) Hemoglobin 10.8(L) 13.2 - 16.6 g/dL 03/01/2024 [...] 4:33 AM CDT 03/01/2024 5:14 AM CDT Erasmo Lloyd APRN C.N.P., D.N.P. LAB BLOOD ADD-ON [facility] [address] [place] [address], [facility] DTL [facility] [address] [place] [address] * (ABNORMAL) Basic Metabolic Panel (03/01/2024 4:33 AM CDT) Potassium, S 4.7 3.6 - 5.2 mmol/L [...] 4:33 AM CDT 03/01/2024 5:30 AM CDT Girish Love APRN.N.P., D.N.P. LAB BLOOD ADD-ON [facility] [address] [place] [address], [facility] [address] [place] [address] * Glucose, POCT (03/01/2024 12:15 AM CDT) Glucose, POCT, B 99 70 - 140 mg/dL 03/01/2024 12:17 AM CDT PCLX Site Capillary 03/01/2024 12:17 AM CDT PCLX Blood 03/01/2024 12:1 5 AM CDT 03/01/2024 12:17 AM CDT Unknown Provider LAB POCT ORDERABLES- MANUAL POC [facility] [address] [place] [address], [facility] [address] [place] [address] * Glucose, POCT (02/29/2024 10:56 PM CDT) Glucose, POCT, B 85 70 - 140 mg/dL 02/29/2024 10:58 PM CDT PCLX Site Capillary 02/29/2024 10:58 PM CDT PCLX Blood 02/29/2024 10:5 6 PM CDT 02/29/2024 10:58 PM CDT Unknown Provider LAB POCT ORDERABLES- MANUAL POC [facility] [address] [place] [address], [facility] [address] [place] [address] * Glucose, POCT (02/29/2024 10:28 PM CDT) Glucose, POCT, B 84 70 - 140 mg/dL 02/29/2024 10:29 PM CDT PCLX Site Capillary 02/29/2024 10:29 PM CDT PCLX Blood 02/29/2024 10:2 8 PM CDT 02/29/2024 10:29 PM CDT Unknown Provider LAB POCT ORDERABLES- MANUAL POC [facility] [address] [place] [address], [place] [facility] [address] [place] [address] * Glucose, POCT (02/29/2024 9:40 PM CDT) Glucose, POCT, B 112 70 - 140 mg/dL 02/29/2024 9:42 PM CDT PCLX Site Capillary 02/29/2024 9:42 PM CDT PCLX Blood 02/29/2024 9:40 PM CDT 02/29/2024 9:42 PM CDT Unknown Provider LAB POCT ORDERABLES- MANUAL POC [facility] [address] [place] [address], [facility] [address] [place] [address] * (ABNORMAL) Glucose, POCT (02/29/2024 9:11 PM CDT) Glucose, POCT, B 60(L) 70 - 140 mg/dL 02/29/2024 9:14 PM CDT PCLX Site Capillary 02/29/2024 9:14 PM CDT PCLX Blood 02/29/2024 9:11 PM CDT 02/29/2024 9:14 PM CDT Unknown Provider LAB POCT ORDERABLES- MANUAL Performing Organization Address City/[facility]/ZIP Co de Phone Number [facility] [address] [place] [address], [facility] [address] [place] [address] * Glucose, POCT (02/29/2024 6:50 PM CDT) Glucose, POCT, B 98 70 - 140 mg/dL 03/01/2024 3:25 PM CDT PCLX Site Capillary 03/01/2024 3:25 PM CDT PCLX Blood 02/29/2024 6:50 PM CDT 03/01/2024 3:25 PM CDT Unknown Provider LAB POCT ORDERABLES- MANUAL POC [facility] [address] [place] [address], [place] [facility] [address] [place] [address] * Glucose, POCT (02/29/2024 6:28 PM CDT) Glucose, POCT, B 72 70 - 140 mg/dL 03/01/2024 3:25 PM CDT PCLX Site Capillary 03/01/2024 3:25 PM CDT PCLX Blood 02/29/2024 6:28 PM CDT 03/01/2024 3:25 PM CDT Unknown Provider LAB POCT ORDERABLES- MANUAL Performing Organization Address City/[facility]/ZIP Co de Phone Number POC [facility] [address] [place] [address], [facility] [address] [place] [address] * (ABNORMAL) Glucose, POCT (02/29/2024 5:56 PM CDT) Glucose, POCT, B 64(L) 70 - 140 mg/dL 03/01/2024 3:25 PM CDT PCLX Site Capillary 03/01/2024 3:25 PM CDT PCLX Blood 02/29/2024 5:56 PM CDT 03/01/2024 3:25 PM CDT Unknown Provider LAB POCT ORDERABLES- MANUAL POC [facility] [address] [place] [address], [facility] [address] [place] [address] * (ABNORMAL) Glucose, POCT (02/29/2024 5:39 PM CDT) Glucose, POCT, B 60(L) 70 - 140 mg/dL 03/01/2024 3:25 PM CDT PCLX Site Capillary 03/01/2024 3:25 PM CDT PCLX Last Intake NPO 03/01/2024 3:25 PM CDT PCLX Blood 02/29/2024 5:39 PM CDT 03/01/2024 3:25 PM CDT Unknown Provider LAB POCT ORDERABLES- MANUAL [facility] [address] [place] [address], [facility] [address] [place] [address] * (ABNORMAL) Glucose, POCT (02/29/2024 5:15 PM CDT) Pathologist [facility] [place] Glucose, POCT, B 50(L) 70 - 140 mg/dL 02/29/2024 5:17 PM CDT PCLX Site Capillary 02/29/2024 5:17 PM CDT PCLX Last Intake NPO 02/29/2024 5:17 PM CDT PCLX Blood 02/29/2024 5:15 PM CDT 02/29/2024 5:18 PM CDT Unknown Provider LAB POCT ORDERABLES- MANUAL Performing Organization Address City/[facility]/ZIP Co de Phone Number [facility] [address] [place] [address], [facility] [address] [place] [address] * Gram Stain (02/29/2024 12:37 PM CDT) Pathologist [facility] Gram Stain No organisms seen. White blood cells, Many. Epithelial cells, Moderate. 02/29/2024 2:53 PM CDT DTL Tracheal Secretions 02/29/2024 12:37 PM CDT 02/29/2024 1:41 PM CDT Comment:Specimen Source Site : Sputum Girish Love APRN.N.P., D.N.P. LAB MICROBIOLOGY - GENERAL ORDERABLES Performing Organization Address City/[facility]/ZIP Co de Phone Number [facility] [address] [place] [address], [facility] DTL [facility] [address] [place] [address] * (ABNORMAL) Bacterial Culture, Aerobic + Susceptibility, Respiratory (02/29/2024 12:37 PM CDT) Bacterial Culture, Aerobic, Resp With upper respiratory/oral microbiota(A) 03/04/2024 12:05 PM CDT DTL Bacterial Culture, Aerobic, Resp YEAST 2+ (A) 03/04/2024 12:05 PM CDT DTL Bacterial Culture, Aerobic, Resp STENOTROPHOMONAS MALTOPHILIA 2+ (A) 03/04/2024 12:05 PM CDT DTL Sputum (Tracheal Secretions) 02/29/2024 12:37 PM CDT 02/29/2024 1:41 PM CDT Comment:Specimen Source Site : Sputum Narrative Organism Antibiotic Method Susceptibility Stenotrophomonas maltophilia Levofloxacin SUSCEPTIBILITY , FARIHA (MCG/ML) 1 mcg/mL: Susceptible Comment: Levofloxacin should not be used as monotherapy for serious Stenotrophomonas maltophilia infections. Stenotrophomonas maltophilia Trimethoprim + Sulfamethoxazole SUSCEPTIBILITY , FARIHA (MCG/ML) <=0.5/9.5 mcg/mL: Susceptible Comment: Trimethoprim-sulfamethoxazole should not be used as monotherapy for serious Stenotrophomonas maltophilia infections. Stenotrophomonas maltophilia Minocycline SUSCEPTIBILITY , FARIHA (MCG/ML) <=1 mcg/mL: Susceptible Erasmo Lloyd APRN, C.N.P., D.N.P. LAB MICROBIOLOGY - GENERAL ORDERABLES [facility] [address] [place] [address], [facility] [address] [place] [address] * CT Chest Angiogram and Pulmonary Arteries [...] osseous lesion. Procedure Note Flynn Shaffer M.B.B.S., Abbe - 02/29/2024 EXAM: CT CHEST ANGIOGRAM AND [...] consistent with multifocal pneumonia or aspirationpneumonia. Erasmo Gabino BUSTOS, C.N.P., D.N.P. IMG CT PROCEDURES * Respiratory [...] using the FDA-Cleared FilmArray Respiratory Panel 2.1 (Zignals). Swab (Nasopharynx) 02/29/2024 9:12 AM CDT 02/29/2024 9:12 AM CDT Erasmo Lloyd APRN C.N.P., D.N.P. LAB MICROBIOLOGY - GENERAL ORDERABLES Performing Organization Address City/[facility] Co de Phone Number [facility] [address] [place], [place] [address] [place] [id number] * Staph aureus / MRSA, Nasal, PCR (02/29/2024 8:05 AM CDT) Staphylococcus aureus, PCR Negative Negative 02/29/2024 11:46 AM CDT DTL MRSA, PCR Negative Negative 02/29/2024 11:46 AM CDT DTL Swab (Nares) 02/29/2024 8:05 AM CDT 02/29/2024 9:12 AM CDT Erasmo Neel Lloyd APRNN.P., D.N.P. LAB MICROBIOLOGY - GENERAL ORDERABLES Performing Organization Address [facility] Co de Phone Number [facility] [address] [place], [place] [address] [place] [address] * Interpretation of Outside US Vascular (02/29/2024 6:05 AM CDT) Anatomical Region Laterality Modality Ultrasound RST LOS, Ultrasou nd ARZ LOS, Ultrasound FLA LOS, Procedural, Other, Vascular N/A Ultrasound Impressions 02/29/2024 10:22 AM CDT Positive for acute DVT in the mid to lower femoral vein through popliteal vein. Result discussed with BETO Nguyen ([id number]) by Dr. Schulte on 02/29/2024 at 0950 hours. Narrative 02/29/2024 10:22 AM CDT EXAM: ??INTERPRETATION OF OUTSIDE US VASCULAR. Bilateral lower extremity venous ultrasound performed on 02/28/2024 at outside facility. Interpretation provided without the benefit of real-time scanning or discussion with the instructional systems specialist. COMPARISON: ??None FINDINGS: ?? RIGHT: The common [...] benefit of real-time scanning ordiscussion with the instructional systems specialist. COMPARISON: None FINDINGS: RIGHT: The common femoral, [...] through poplitealvein. Result discussed with BETO Nguyen ([id number]) by Dr. Schulte on02/29/2024 at 0950 hours. Erasmo Lloyd APRN C.N.PMay, D.N.P. [facility] US PROCEDURES * (ABNORMAL) Basic Metabolic Panel (02/29/2024 4:48 AM CDT) Potassium, S 4.9 3.6 - 5.2 mmol/L [...] 4:48 AM CDT 02/29/2024 6:03 AM CDT Erasmo Lloyd APRN C.N.P., D.N.P. LAB BLOOD ADD-ON [address] [address], [facility] [address] [address] * (ABNORMAL) CBC without Differential (02/29/2024 4:48 AM CDT) Hemoglobin 10.6(L) 13.2 - 16.6 g/dL 02/29/2024 [...] 4:48 AM CDT 02/29/2024 5:46 AM CDT Erasmo Lloyd APRN, C.N.P., D.N.P. LAB BLOOD ADD-ON [facility] [address] [place] [address], [facility] [address] [place] [address] * Glucose, POCT (02/28/2024 9:10 PM CDT) Glucose, POCT, B 87 70 - 140 mg/dL 02/28/2024 9:11 PM CDT PCLX Site Capillary 02/28/2024 9:11 PM CDT PCLX Blood 02/28/2024 9:10 PM CDT 02/28/2024 9:11 PM CDT Unknown Provider LAB POCT ORDERABLES- MANUAL POC [facility] [address] [place] [address], [facility] [address] [place] [address] * Patient Status (02/28/2024 5:45 PM CDT) O2 Flow 7.0 L/min 02/28/2024 5:50 PM CDT STMA Device CFM 02/28/2024 5:50 PM CDT STMA Spont. breaths/min 14 02/28/2024 5:50 PM CDT STMA Blood 02/28/2024 5:45 PM CDT 02/28/2024 5:50 PM CDT Neel Love APRNNMayP., D.N.P. LAB BLOOD NON ADD-ON Performing Organization Address [facility] Co de Phone Number [facility] [address] [place] [address], [facility] [address] [place] [address] * (ABNORMAL) Blood Gas without Coox, Arterial [...] Love APRNN.P., D.N.P. LAB BLOOD NON ADD-ON Performing Organization Address City/State/[facility] Co de Phone Number [facility] [address] [place] [address], [facility] [address] [place] [address] * Patient Status (02/28/2024 3:30 PM CDT) FIO2 0.40 0.21=AIR 02/28/2024 3:35 PM CDT STMA Device CFM 02/28/2024 3:35 PM CDT STMA Spont. breaths/min 13 02/28/2024 3:35 PM CDT STMA Blood 02/28/2024 3:30 PM CDT 02/28/2024 3:35 PM CDT Girish Love APRN.N.P., D.N.P. LAB BLOOD NON ADD-ON [facility] [address] [place] [address], [facility] [address] [place] [address] * (ABNORMAL) Blood Gas without Coox, Venous (02/28/2024 3:30 PM CDT) [facility] pO2, Venous, B 26 Not applicable mm [...] 3:30 PM CDT 02/28/2024 3:35 PM CDT Girish Love APRN.N.P., D.N.P. LAB BLOOD NON ADD-ON [facility] [address] [place], [place] [address] [place] [address] [address] [place] [address] * (ABNORMAL) CBC without Differential (02/28/2024 3:29 PM CDT) [facility] Hemoglobin 12.0(L) 13.2 - 16.6 g/dL 02/28/2024 [...] Lloyd APRN C.N.P., D.N.P. LAB BLOOD ADD-ON [facility] [address] [place] [address], [facility] [address] [place] [address] * (ABNORMAL) Basic Metabolic Panel (02/28/2024 3:29 PM CDT) [facility] Potassium, P 4.2 3.6 - 5.2 mmol/L [...] CDT 02/28/2024 3:36 PM CDT Erasmo Lloyd APRN, C.N.P., D.N.P. LAB BLOOD ADD-ON [facility] [address] [place] [address], [facility] [address] [place] [address] documented in this encounter Visit Diagnoses Diagnosis Acute Respiratory Failure With Hypoxia (HCC)- Primary Acute Respiratory Failure With Hypoxia (HCC) Aspiration Pneumonia Secondary to Procedure Decline Functional Status [R53.81] Pneumoperitoneum Pneumonia Leukemia Lymphocytic Acute Remission (HCC) Brain Stem Stroke Syndrome Apnea Sleep Obstructive Acute Embolism And Thrombosis Of Left Femoral Vein (HCC) Coma (HCC) Seizure (HCC) Ayaan Gastaut Syndrome (HCC) Cerebrovascular Disease Dysphagia Reflux Esophageal Nephrolithiasis Severe Sepsis With Septic Shock (HCC) Jejunostomy Status Post (HCC) Delirium (not otherwise specified) Gastrostomy Status (HCC) Hyponatremia Pneumoperitoneum documented in this encounter Admitting Diagnoses Diagnosis Acute Respiratory Failure With Hypoxia (HCC) documented in this encounter Administered Medications Active Administered Medications - up to 3 most recent administrations Medication Order MAR Action Action Date Dose Rate Site acetaminophen suppository 650 mg (TylenoL) 650 mg, rectal, Every 6 hours PRN, mild pain or score 1-3 of 10, fever, headaches, Starting on Wed03/12/24 at 1800 Given 03/13/2024 5:14 AM CDT 650 mg acetic acid 0.25 % irrigation solution (sterile) 1 Application 1 Application, topical, 2 times daily, First dose on Wed03/13/24 at 2100, Place 0.25% Acetic acid on Wypalls??, apply on top of cream as soon as cream is applied and leave in place for 2 hours. Given 03/13/2024 8:12 PM CDT 1 Application adult/child > 40 kg central parenteral nutrition (CPN) infusion intravenous, at 45.8 mL/hr, Administer over 24 Hours, Continuous PN, Starting on Wed03/13/24 at 2100, For 24 hours, Use a 0.22 micron filter., Indication: Ileus Rate/Dose Verify 03/14/2024 3:00 AM CDT 45.8 mL/hr Rate/Dose Verify 03/14/2024 2:00 AM CDT 45.8 mL /hr Rate/Dose Verify 03/14/2024 1:00 AM CDT 45.8 mL /hr caspofungin 50 mg in NaCl 0.9% IVPB (Cancidas) 50 mg, intravenous, at 257 mL/hr, Administer over 60 Minutes, Every 24 hours at 1800, First dose on Wed03/13/24 at 1800, Indications: Intra-abdominal infection, healthcare associated New Bag 03/13/2024 5:25 PM CDT 50 mg 257 mL/hr cefepime in dextrose (iso osm) IVPB 1 g (Maxipime) 1 g, intravenous, at 100 mL/hr, Administer over 30 Minutes, Every 8 hours, First dose (after last modification) on Wed03/13/24 at 2200, Drug Monitoring Program: Pharmacist to adjust medication dosing based on indication and drug clearance factors., Indications: Respiratory tract infection, healthcare associated New Bag 03/13/2024 11:00 PM CDT 1 g 100 mL/h r chlorhexidine 0.12 % mouthwash 15 mL (Peridex) 15 mL, swish & spit, 2 times daily, First dose on Tata 03/02/24 at 0900, Swab oral cavity while on ventilator. Avoid brushing or use of mouthwash for at least 2 hours after application. Discontinue after extubation. Given 03/13/2024 8:12 PM CDT 15 mL Given 03/13/2024 9:19 AM CDT 15 mL Given 03/12/2024 8:15 PM CDT 15 mL D10W bolus 250 mL 250 mL (25 g), intravenous, at 1,000 mL/hr, Administer over 15 Minutes, As needed, low blood sugar, For glucose less than 54 mg/dL, Starting on Wed02/29/24 at 1803, If intravenous access is available, administer D10W intravenously D5W infusion 1-999 mL/hr, intravenous, As needed, Medications Incompatible with 0.9% NaCL, Starting on Tata 03/02/24 at 1105, Infuse at the same rate as the piggyback until tubing clears or up to a volume of 20 mL pre and post infusion for medications incompatible with 0.9% NaCL. Use 50 mL bag then discard. diazePAM injection 10 mg (Valium) 10 mg, intravenous, Every 4 hours PRN, seizures, Starting on Wed03/10/24 at 1730 fat emulsion pfj-voh-egapr & fish oil infusion 50 g (SMOFlipid) 50 g, intravenous, at 10.4 mL/hr, Administer over 24 Hours, Every 24 hours, First dose on Wed03/13/24 at 2100, Use a 1.2 micron filter. When fat emulsion is ordered along with a CPN containing iron dextran, administer fat emulsion and CPN through separate lines. Rate/Dose Verify 03/14/2024 3:00 AM CDT 10.4 mL/hr Rate/Dose Verify 03/14/2024 2:00 AM CDT 10.4 mL /hr Rate/Dose Verify 03/14/2024 1:00 AM CDT 10.4 mL /hr fentaNYL injection 25 mcg (Sublimaze) 25 mcg, intravenous, Every 2 hour PRN, severe pain or score 7-10 of 10, Starting on Wed03/13/24 at 2316, If pain uncontrolled, contact provider team for more options. Given 03/14/2024 1:42 AM CDT 25 mcg heparin (porcine) injection 5,000 Units 5,000 Units, subcutaneous, Every 8 hours scheduled, First dose on Wed03/12/24 at 0600 Given 03/13/2024 9:03 PM CDT 5,000 Units Left Upper Arm (Back ) Given 03/13/2024 2:01 PM CDT 5,000 Units L eft Outer Thigh Given 03/13/2024 5:25 AM CDT 5,000 Units L eft Outer Thigh ipratropium-albuteroL 0.5-2.5 mg/3 mL nebulizer solution 3 mL (DUONEB) 3 mL, nebulization, 4 times daily PRN, wheezing, shortness of breath, Starting on Wed02/28/24 at 1625 lacosamide injection 200 mg (Vimpat) 200 mg, intravenous, Every 12 hours, First dose (after last modification) on Wed03/11/24 at 1900 Given 03/13/2024 6:34 PM CDT 200 mg Given 03/13/2024 6:01 AM CDT 200 mg Given 03/12/2024 6:18 PM CDT 200 mg levETIRAcetam 2,000 mg in NaCl 0.9% IVPB (Keppra) 2,000 mg, intravenous, at 210 mL/hr, Administer over 20 Minutes, Every 12 hours, First dose (after last reorder) on Wed03/12/24 at 1045, Do NOT refrigerate. New Bag 03/13/2024 10:05 PM CDT 2,000 mg 210 mL/hr New Bag 03/13/2024 10:16 AM CDT 2,000 mg 210 mL/hr New Bag 03/12/2024 9:49 PM CDT 2,000 mg 210 mL/hr LORazepam injection 2 mg (Ativan) 2 mg, intravenous, Every 6 hours, First dose on Wed03/12/24 at 0900, Shortage on injection, use oral when possible For intravenous use, dilute with equal volume of 0.9% NS Given 03/14/2024 2:17 AM CDT 2 mg Given 03/13/2024 8:19 PM CDT 2 mg Given 03/13/2024 3:43 PM CDT 2 mg metroNIDAZOLE in NaCl (iso osm) IVPB 500 mg (FlagyL) 500 mg, intravenous, at 200 mL/hr, Administer over 30 Minutes, Every 8 hours, First dose on Wed03/10/24 at 1230, For 17 doses, Indications: Intra-abdominal infection, healthcare associated New Bag 03/14/2024 3:44 AM CDT 500 mg 200 mL/hr New Bag 03/13/2024 7:36 PM CDT 500 mg 200 mL/hr New Bag 03/13/2024 12:50 PM CDT 500 mg 200 mL/hr NaCl 0.9% infusion 3 mL/hr, intravenous, Continuous, [...] to 0-78.08 mL/hr), intravenous, Continuous, Starting on Wed03/10/24 at 1800, Protect from light and avoid [...] cream 1 Application (Mycostatin) 1 Application, topical, 2 times daily, First dose on Wed03/13/24 at 2100, Apply cream to affected area(s). Given 03/13/2024 8:12 PM CDT 1 Application nystatin 100,000 unit/gram powder 1 Application (Nystop) 1 Application, topical, 2 times daily, First dose on Wed03/13/24 at 2300, apply to affected area between treatments Given 03/13/2024 10:03 PM CDT 1 Application pantoprazole injection 40 mg (Protonix) 40 mg, intravenous, Daily, First dose (after last modification) on Tata 03/02/24 at 1730, Administer IV push over 2 minutes. Add 10 mL NS to 40 mg vial for a final concentration of 4 mg/mL. Given 03/13/2024 8:17 AM CDT 40 mg Given 03/12/2024 8:57 AM CDT 40 mg Given 03/11/2024 8:08 AM CDT 40 mg PHENobarbital injection 50 mg (LuminaL) 50 mg, intravenous, 3 times daily, First dose on Wed03/12/24 at 2100 Given 03/13/2024 8:28 PM CDT 50 mg Given 03/13/2024 1:54 PM CDT 50 mg Given 03/13/2024 8:27 AM CDT 50 mg propofol bolus from bag 20 mg (Diprivan) 20 mg, intravenous, Every 1 hour PRN, seizure activity, Starting on Wed03/12/24 at 1035 Bolus from Bag 03/12/2024 12:55 PM CDT 20 mg Bolus from Bag 03/12/2024 10:22 AM CDT 20 mg sodium chloride 0.9 % injection 10-30 mL 10-30 mL, intravenous, Every 7 days, First dose on Wed03/08/24 at 0900, Peripherally Inserted Central Catheter (PICC) Valved: When no infusion to maintain patency flush 10 mL per lumen. Given 03/08/2024 8:31 AM CDT 10 mL sodium chloride 0.9 % injection 3 mL 3 mL, intravenous, Every 24 hours scheduled, First dose on Wed03/08/24 at 0900, Peripheral Intravenous Catheter and Rapid Infusion Catheter: When no infusion to maintain patency. Given 03/13/2024 8:17 AM CDT 3 mL Given 03/11/2024 8:41 AM CDT 3 mL Given 03/10/2024 9:07 AM CDT 3 mL vancomycin in NaCl 0.9% IVPB 1,250 mg 1,250 mg (rounded from 1,206 mg = 20 mg/kg ? 60.3 kg Adjusted weight), intravenous, at 167 mL/hr, Administer over 90 Minutes, Every 8 hours, First dose (after last modification) on Wed03/13/24 at 1900, Drug Monitoring Program: Pharmacist to adjust medication dosing based on indication and drug clearance factors., Indications: Respiratory tract infection, healthcare associated New Bag 03/14/2024 2:17 AM CDT 1,250 mg 167 mL/hr New Bag 03/13/2024 6:52 PM CDT 1,250 mg 167 mL/hr vasopressin 20 unit/100 mL (0.2 unit/mL) in D5W 100 mL infusion (Pitressin) 0.04 Units/min (12 mL/hr), intravenous, Continuous, Starting on Wed03/12/24 at 0230, 20 units in 100 mL New Bag 03/13/2024 6:41 PM CDT 0.04 Units/min 12 m L/hr Rate/Dose Verify 03/13/2024 6:00 PM CDT 0.04 Units/min 12 mL/hr Rate/Dose Verify 03/13/2024 5:00 PM CDT 0.04 Units/min 12 mL/hr documented in this encounter Active and Recently Administered Medications Times are shown in CDT. Scheduled Medication Order 03/12/2024 03/13/2024 03/14/2024 acetaminophen injection 1,000 mg (COMPLETED) 1,000 mg, intravenous, at 400 mL/hr, Administer over 15 Minutes, Once, On Wed03/12/24 at 1230, For 1 dose, Restriction Criteria (Pharmacy will review and approve if criteria met): Unable to take or tolerate medications administered via the enteral route or orally (not just NPO) 1323 (New Bag - Provider: Megan Lin RHarika.) acetic acid 0.25 % irrigation solution (sterile) 1 Application (CANCELED) 1 Application, topical, 3 times daily, First dose on Tata 03/02/24 at 2100, Place 0.25% Acetic acid on Wypalls??, apply on top of ointment/cream as soon as applied and leave in place for 2 hours. 0811 (Given - Provider: Megan Lin R.N.)1330 (Given - Provider: Megan Lin R.Violet.)2015 (Given - Provider: Zayda Travis R.N.) 0950 (Given - Provider: Savannah Pelayo R.N.) acetic acid 0.25 % irrigation solution (sterile) 1 Application 1 Application, topical, 2 times daily, First dose on Wed03/13/24 at 2100, Place 0.25% Acetic acid on Wypalls??, apply on top of cream as soon as cream is applied and leave in place for 2 hours. 2011 (Given - Provider: Jerzy Frost RJuli) 0900 (Due)2100 (Due) caspofungin 50 mg in NaCl 0.9% IVPB (Cancidas)(Linked Group 1) 50 mg, intravenous, at 257 mL/hr, Administer over 60 Minutes, Every 24 hours at 1800, First dose on Wed03/13/24 at 1800, Indications: Intra-abdominal infection, healthcare associated 1725 (New Bag - Provider: Savannah Pelayo R.N.) 1800 (Due) caspofungin 70 mg in NaCl 0.9% IVPB (Cancidas) (COMPLETED)(Linked Group 1) 70 mg, intravenous, at 260 mL/hr, Administer over 60 Minutes, Once, On Wed03/13/24 at 0930, For 1 dose, Loading dose, Indications: Intra-abdominal infection, healthcare associated 1056 (New Bag - Provider: Savannah Pelayo R.N. - Comment: lack of IV access) cefepime in dextrose (iso osm) IVPB 1 g (Maxipime) 1 g, intravenous, at 100 mL/hr, Administer over 30 Minutes, Every 8 hours, First dose (after last modification) on Wed03/13/24 at 2200, Drug Monitoring Program: Pharmacist to adjust medication dosing based on indication and drug clearance factors., Indications: Respiratory tract infection, healthcare associated 2300 (New Bag - Provider: Jerzy Frost RMayN. - Comment: re-timed dose for 8 hours after initial dose) 0600 (Due)1400 (Due)2200 (Due) cefepime in dextrose (iso osm) IVPB 2 g (Maxipime) (COMPLETED) 2 g, intravenous, at 200 mL/hr, Administer over 30 Minutes, Once, On Wed03/13/24 at 1115, For 1 dose, Drug Monitoring Program: Pharmacist to adjust medication dosing based on indication and drug clearance factors., Indications: Intra-abdominal infection, healthcare associated, Respiratory tract infection, healthcare associated 1537 (New Bag - Provider: Savannah Pelayo R.N.) cefTRIAXone in dextrose (iso osm) IVPB 2 g (Rocephin) (CANCELED) 2 g, intravenous, at 200 mL/hr, Administer over 15 Minutes, Every 24 hours, First dose on Wed03/10/24 at 1230, For 6 doses, Drug Monitoring Program: Pharmacist to adjust medication dosing based on indication and drug clearance factors., Indications: Intra-abdominal infection, healthcare associated 1157 (New Bag - Provider: Megan Lin R.N.) chlorhexidine 0.12 % mouthwash 15 mL (Peridex) 15 mL, swish & spit, 2 times daily, First dose on [place] 03/02/24 at 0900, Swab oral cavity while on ventilator. Avoid brushing or use of mouthwash for at least 2 hours after application. Discontinue after extubation. 851 (Given - Provider: Megan Lin R.N.)2014 (Given - Provider: Zayda Travis R.N.) 09 (Given - Provider: Savannah Pelayo R.N.)2011 (Given - Provider: Jerzy Frost R.N.) 0900 (Due)2100 (Due) fat emulsion [id number] & fish oil infusion 50 g (SMOFlipid) 50 g, intravenous, at 10.4 mL/hr, Administer over 24 Hours, Every 24 hours, First dose on Wed03/13/24 at 2100, Use a 1.2 micron filter. When fat emulsion is ordered along with a CPN containing iron dextran, administer fat emulsion and CPN through separate lines. 2041 (New Bag - Provider: Jerzy Frost RHarika.)2100 (Rate/Dose Verify - Provider: Jerzy Frost R.N.)2200 (Rate/Dose Verify - Provider: Jerzy Frost R.N.)2300 (Rate/Dose Verify - Provider: Jerzy Frost R.N.) 0000 (Rate/Dose Verify - Provider: Jerzy Frost R.N.)0100 (Rate/Dose Verify - Provider: Fawad Baxter.N.)0200 (Rate/Dose Verify - Provider: Jerzy Frost R.N.)0300 (Rate/Dose Verify - Provider: Jerzy Frost R.N.)2100 (Due) furosemide injection 20 mg (Lasix) (COMPLETED) 20 mg, intravenous, Once, On Wed03/12/24 at 2115, For 1 dose, Adults: Doses less than 120 mg: IV push over 20 mg/minute. Doses 120 mg or greater: IVPB at 4 mg/minute. Peds/Neonates: Doses less than 120 mg over 0.5 mg/kg/minute. Doses 120 mg or greater: IVPB at 4 mg/minute. 2119 (Given - Provider: Zayda Travis R.N.) furosemide injection 20 mg (Lasix) (COMPLETED) 20 mg, intravenous, Once, On Wed03/13/24 at 1530, For 1 dose, Adults: Doses less than 120 mg: IV push over 20 mg/minute. Doses 120 mg or greater: IVPB at 4 mg/minute. Peds/Neonates: Doses less than 120 mg over 0.5 mg/kg/minute. Doses 120 mg or greater: IVPB at 4 mg/minute. 154 (Given - Provider: Savannah Pelayo R.N.) furosemide injection 40 mg (Lasix) (COMPLETED) 40 mg, intravenous, Once, On Wed03/13/24 at 1945, For 1 dose, Adults: Doses less than 120 mg: IV push over 20 mg/minute. Doses 120 mg or greater: IVPB at 4 mg/minute. Peds/Neonates: Doses less than 120 mg over 0.5 mg/kg/minute. Doses 120 mg or greater: IVPB at 4 mg/minute. 193 (Given - Provider: Jerzy Frost RMayNMay) heparin (porcine) injection 5,000 Units 5,000 Units, subcutaneous, Every 8 hours scheduled, First dose on Wed03/12/24 at 0600 0505 (Given - Provider: Zayda Travis R.N.)1348 (Given - Provider: Megan Lin R.N.)212 (Given - Provider: Zayda Travis R.N.) 0525 (Given - Provider: Zayda Travis R.N.)1401 (Given - Provider: Savannah Pelayo R.N.)210 (Given - Provider: Jerzy Frost R.N.) 0600 (Due)1400 (Due)2200 (Due) hydrocortisone 1 % ointment (CANCELED) topical, 3 times daily, First dose on [place] 03/02/24 at 2100, Apply ointment to the affected skin around the PEJ tube and buttocks to groin. If using ointment and cream, mix 50/50 and apply as directed. 0811 (Given - Provider: Megan Lin R.N.)1330 (Given - Provider: Megan Lin R.N.)2015 (Given - Provider: Zayda Travis R.N.) 0950 (Given - Provider: Savannah Pelayo R.N. - Comment: 50/50 mixture with nystatin) lacosamide injection 200 mg (Vimpat) 200 mg, intravenous, Every 12 hours, First dose (after last modification) on [facility] 03/11/24 at 1900 0619 (Given - Provider: Zayda Travis R.N.)1818 (Given - Provider: Megan Lin R.N.) 0601 (Given - Provider: Zayda Travis R.N.)1834 (Given - Provider: Savannah Pelayo R.N.) 0700 (Due)1900 (Due) Lactated Ringer's bolus 1,000 mL (COMPLETED) 1,000 mL, intravenous, at 1,000 mL/hr, Administer over 1 Hours, Once, On 03/12/24 at 0130, For 1 dose 0109 (New Bag - Provider: Iron Cai R.N.) levETIRAcetam 2,000 mg in NaCl 0.9% IVPB (Keppra) 2,000 mg, intravenous, at 210 mL/hr, Administer over 20 Minutes, Every 12 hours, First dose (after last reorder) on 03/12/24 at 1045, Do NOT refrigerate. 1044 (New Bag - Provider: Megan Lin R.N.)2149 (New Bag - Provider: Zayda Travis R.N.) 1016 (New Bag - Provider: Savannah Pelayo R.N.)2205 (New Bag - Provider: Jerzy Frost R.N.) 1045 (Due)2245 (Due) LORazepam injection 2 mg (Ativan) 2 mg, intravenous, Every 6 hours, First dose on 03/12/24 at 0900, Shortage on injection, use oral when possible For intravenous use, dilute with equal volume of 0.9% NS 0944 (Given - Provider: Megan Lin RJuli)1528 (Given - Provider: Megan Lin R.N.)2010 (Given - Provider: Zayda Travis R.N.) 0239 (Given - Provider: Zayda Travis R.N.)0836 (Given - Provider: Savannah Pelayo R.N.)154 (Given - Provider: Savannah Pelayo R.N.)2018 (Given - Provider: Jerzy Frost RMayNMay) 021 (Given - Provider: Jerzy Frost RMayNMay)0900 (Due)1500 (Due)2100 (Due) LORazepam injection 2 mg (Ativan) (COMPLETED) 2 mg, intravenous, Once, On Wed03/12/24 at 2345, For 1 dose, Shortage on injection, use oral when possible For intravenous use, dilute with equal volume of 0.9% NS 2330 (Given - Provider: Zayda Travis R.N.) LORazepam injection 2 mg (Ativan) (COMPLETED) 2 mg, intravenous, Once, On Wed03/13/24 at 1400, For 1 dose, Shortage on injection, use oral when possible For intravenous use, dilute with equal volume of 0.9% NS 1336 (Given - Provider: Savannah Pelayo R.N.) magnesium sulfate in water IVPB 2 g (COMPLETED) 2 g, intravenous, at 25 mL/hr, Administer over 120 Minutes, Once, On Wed03/13/24 at 0615, For 1 dose 0619 (New Bag - Provider: Zayda Travis R.N.) metroNIDAZOLE in NaCl (iso osm) IVPB 500 mg (FlagyL) 500 mg, intravenous, at 200 mL/hr, Administer over 30 Minutes, Every 8 hours, First dose on Wed03/10/24 at 1230, For 17 doses, Indications: Intra-abdominal infection, healthcare associated 0335 (New Bag - Provider: Zayda Travis R.N.)1220 (New Bag - Provider: Megan Lin R.N.)193 (New Bag - Provider: Zayda Travis R.N.) 0336 (New Bag - Provider: Zayda Travis R.N.)1250 (New Bag - Provider: Savannah Pelayo R.N.)193 (New Bag - Provider: Jerzy Frost R.N.) 0344 (New Bag - Provider: Jerzy Frost R.N.)1230 (Due)2030 (Due) nystatin 100,000 unit/gram cream 1 Application (Mycostatin) (CANCELED) 1 Application, topical, 3 times daily, First dose (after last modification) on Wed03/06/24 at 1400, Apply cream to affected tissue around the PEJ tube and buttocks to groin. If using ointment and cream, mix 50/50 and apply as directed. 0811 (Given - Provider: Megan Lin R.N.)1330 (Given - Provider: Megan Lin R.N.)2014 (Given - Provider: Zayda Travis R.N.) 0950 (Given - Provider: Savannah Pelayo R.N.) nystatin 100,000 unit/gram cream 1 Application (Mycostatin) 1 Application, topical, 2 times daily, First dose on Wed03/13/24 at 2100, Apply cream to affected area(s). 2011 (Given - Provider: Jerzy Frost RMayNMay) 0900 (Due)2100 (Due) nystatin 100,000 unit/gram powder 1 Application (Nystop) 1 Application, topical, 2 times daily, First dose on Wed03/13/24 at 2300, apply to affected area between treatments 2203 (Given - Provider: Jerzy Frost RMayNMay) 1100 (Due)2300 (Due) pantoprazole injection 40 mg (Protonix) 40 mg, intravenous, Daily, First dose (after last modification) on Wed03/02/24 at 1730, Administer IV push over 2 minutes. Add 10 mL NS to 40 mg vial for a final concentration of 4 mg/mL. 0857 (Given - Provider: Megan Lin R.N.) 0817 (Given - Provider: Savannah Pelayo R.N.) 0900 (Due) PHENobarbital 695 mg in NaCl 0.9% IVPB (LuminaL) (COMPLETED)(Linked Group 2) 695 mg (rounded from 694 mg = 10 mg/kg ? 69.4 kg Dosing weight), intravenous, at 221 mL/hr, Administer over 15 Minutes, Once, On Wed03/12/24 at 1315, For 1 dose 1401 (New Bag - Provider: Megan Lin R.N.) PHENobarbital 695 mg in NaCl 0.9% IVPB (LuminaL) (COMPLETED) 695 mg (rounded from 694 mg = 10 mg/kg ? 69.4 kg Dosing weight), intravenous, at 221 mL/hr, Administer over 15 Minutes, Once, On Wed03/13/24 at 1315, For 1 dose 1348 (New Bag - Provider: Savannah Pelayo R.N.) PHENobarbital injection 50 mg (LuminaL)(Linked Group 2) 50 mg, intravenous, 3 times daily, First dose on Wed03/12/24 at 2100 2116 (Given - Provider: Zayda Travis R.N.) 0827 (Given - Provider: Savannah Pelayo R.N. - Comment: Joan PRATT)1354 (Given - Provider: Savannah Pelayo R.N.)2028 (Given - Provider: Jerzy Frost R.N. - Comment: verified and witnessed with [facility]) 0900 (Due)1400 (Due)2100 (Due) phytonadione (vitamin K1) 5 mg in NaCl 0.9% IVPB (Aqua-Mephyton) (COMPLETED) 5 mg, intravenous, at 50.5 mL/hr, Administer over 60 Minutes, Once, On Wed03/13/24 at 0100, For 1 dose, Protect from light. 0159 (New Bag - Provider: Zayda Travis R.N.) potassium chloride IVPB 20 mEq (COMPLETED) 20 mEq, intravenous, at 50 mL/hr, Administer over 60 Minutes, Every 1 hour, First dose on Wed03/13/24 at 0615, For 1 dose, Central Line with Telemetry: 20 mEq per bag over 1 hour each. 0623 (New Bag - Provider: Zayda Travis R.N.) sodium chloride 0.9 % injection 10-30 mL 10-30 mL, intravenous, Every 7 days, First dose on Wed03/08/24 at 0900, Peripherally Inserted Central Catheter (PICC) Valved: When no infusion to maintain patency flush 10 mL per lumen. sodium chloride 0.9 % injection 3 mL 3 mL, intravenous, Every 24 hours scheduled, First dose on Wed03/08/24 at 0900, Peripheral Intravenous Catheter and Rapid Infusion Catheter: When no infusion to maintain patency. 0803 (Not Given - Provider: Megan Lin R.N. - Reason: Order parameters not met) 0817 (Given - Provider: Savannah Pelayo R.N.) 0900 (Due) vancomycin in NaCl 0.9% IVPB 1,250 mg 1,250 mg (rounded from 1,206 mg = 20 mg/kg ? 60.3 kg Adjusted weight), intravenous, at 167 mL/hr, Administer over 90 Minutes, Every 8 hours, First dose (after last modification) on Wed03/13/24 at 1900, Drug Monitoring Program: Pharmacist to adjust medication dosing based on indication and drug clearance factors., Indications: Respiratory tract infection, healthcare associated 1852 (New Bag - Provider: Savannah Pelayo RJuli) 0217 (New Bag - Provider: Jerzy Frost RJuli)1100 (Due)1900 (Due) vancomycin in NaCl 0.9% IVPB 1,500 mg (COMPLETED) 1,500 mg (rounded from 1,414 mg = 20 mg/kg ? 70.7 kg), intravenous, at 167 mL/hr, Administer over 90 Minutes, Once, On Wed03/13/24 at 0930, For 1 dose, Drug Monitoring Program: Pharmacist to adjust medication dosing based on indication and drug clearance factors., Indications: Respiratory tract infection, healthcare associated 1059 (New Bag - Provider: Savannah Pelayo R.N. - Comment: lack of IV access) Continuous Medication Order 03/12/2024 03/13/2024 03/14/2024 adult/child > 40 kg central parenteral nutrition (CPN) infusion () intravenous, at 45.8 mL/hr, Administer over 24 Hours, Continuous PN, Starting on 03/11/24 at 2100, For 24 hours, Use a 0.22 micron filter., Indication: Ileus 0000 (Rate/Dose Verify - Provider: Zayda Travis R.N.)0100 (Rate/Dose Verify - Provider: Zayda Travis R.N.)0108 (Stopped - Provider: Iron Cai R.N. - Comment: Paused for fluid bolus)0210 (Restarted - Provider: Zayda Travis R.N.)0300 (Rate/Dose Verify - Provider: Zayda Travis R.N.)0400 (Rate/Dose Verify - Provider: Nico ChesterN.)0500 (Rate/Dose Verify - Provider: Nico ChesterN.)0600 (Rate/Dose Verify - Provider: Zayda Travis R.N.)0700 (Rate/Dose Verify - Provider: Nico GodwinN.)0721 (Handoff - Provider: Zayda Travis R.N.)0800 (Rate/Dose Verify - Provider: Nico GodwinN.)0900 (Rate/Dose Verify - Provider: Megan Lin R.N.)1000 (Rate/Dose Verify - Provider: Megan Lin R.N.)1100 (Rate/Dose Verify - Provider: Megan Lin R.N.)1200 (Rate/Dose Verify - Provider: Megan Lin R.N.)1300 (Rate/Dose Verify - Provider: Megan Lin R.N.)1400 (Rate/Dose Verify - Provider: Fawad Godwin.N.)1500 (Rate/Dose Verify - Provider: Megan Lin R.N.)1600 (Rate/Dose Verify - Provider: Megan Lin R.N.)1700 (Rate/Dose Verify - Provider: Megan Lin R.N.)1800 (Rate/Dose Verify - Provider: Megan Lin R.N.)1900 (Rate/Dose Verify - Provider: Nico ChesterN.)2000 (Rate/Dose Verify - Provider: Nico ChesterN.) adult/child > 40 kg central parenteral nutrition (CPN) infusion () intravenous, at 45.8 mL/hr, Administer over 24 Hours, Continuous PN, Starting on 03/12/24 at 2100, For 24 hours, Use a 0.22 micron filter., Indication: Ileus 2126 (New Bag - Provider: Zayda Travis R.N.)2200 (Rate/Dose Verify - Provider: Zayda Travis R.N.)2300 (Rate/Dose Verify - Provider: Zayda Travis R.N.) 0000 (Rate/Dose Verify - Provider: Zayda Travis R.N.)0100 (Rate/Dose Verify - Provider: Zayda Travis R.N.)0200 (Rate/Dose Verify - Provider: Zayda Travis R.N.)0300 (Rate/Dose Verify - Provider: Zayda Travis R.N.)0400 (Rate/Dose Verify - Provider: Zayda Travis R.N.)0500 (Rate/Dose Verify - Provider: Zayda Travis R.N.)0600 (Rate/Dose Verify - Provider: Zayda Travis R.N.)0700 (Rate/Dose Verify - Provider: Zayda Travis R.N.)0720 (Handoff - Provider: Zayda Travis R.N.)0800 (Rate/Dose Verify - Provider: Savannah Pelayo R.N.)0900 (Rate/Dose Verify - Provider: Savannah Pelayo R.N.)1000 (Rate/Dose Verify - Provider: Savannah Pelayo R.N.)1100 (Rate/Dose Verify - Provider: Savannah Pelayo R.N.)1200 (Rate/Dose Verify - Provider: Savannah Pelayo R.N.)1400 (Rate/Dose Verify - Provider: Savannah Pelayo R.N.)1500 (Rate/Dose Verify - Provider: Savannah Pelayo R.N.)1600 (Rate/Dose Verify - Provider: Savannah Pelayo R.N.)1700 (Rate/Dose Verify - Provider: Savannah Pelayo R.N.)1800 (Rate/Dose Verify - Provider: Savannah Pelayo R.N.)1930 (Rate/Dose Verify - Provider: Jerzy Frost R.N.)2000 (Rate/Dose Verify - Provider: Jerzy Frost R.N.)2036 (Stopped - Provider: Jerzy Frost R.N.) adult/child > 40 kg central parenteral nutrition (CPN) infusion intravenous, at 45.8 mL/hr, Administer over 24 Hours, Continuous PN, Starting on Wed03/13/24 at 2100, For 24 hours, Use a 0.22 micron filter., Indication: Ileus 2036 (New Bag - Provider: Jerzy Frost R.N.)2100 (Rate/Dose Verify - Provider: Jerzy Frost R.N.)2200 (Rate/Dose Verify - Provider: Jerzy Frost R.N.)2300 (Rate/Dose Verify - Provider: Jerzy Frost R.N.) 0000 (Rate/Dose Verify - Provider: Jerzy Frost R.N.)0100 (Rate/Dose Verify - Provider: Jerzy Frost R.N.)0200 (Rate/Dose Verify - Provider: Jerzy Frost R.N.)0300 (Rate/Dose Verify - Provider: Jerzy Frost R.N.) fentaNYL 10 mcg/mL in NaCl 0.9% 250 mL infusion (Sublimaze) (CANCELED) 25 mcg/hr (2.5 mL/hr), intravenous, Continuous, Starting on Wed03/10/24 at 1815, 2,500 mcg in 250 mL bag, Type: Do Not Titrate 0000 (Rate/Dose Verify - Provider: Zayda Travis R.N.)0100 (Rate/Dose Verify - Provider: Zayda Travis R.N.)0200 (Rate/Dose Verify - Provider: Zayda Travis R.N.)0300 (Rate/Dose Verify - Provider: Zayda Travis R.N.)0400 (Rate/Dose Verify - Provider: Zayda Travis R.N.)0500 (Rate/Dose Verify - Provider: Zayda Travis R.N.)0600 (Rate/Dose Verify - Provider: Zayda Travis R.N.)0700 (Rate/Dose Verify - Provider: Megan Lin R.N.)0721 (Handoff - Provider: Zayda Travis R.N.)0800 (Rate/Dose Verify - Provider: Megan Lin R.N.)0900 (Rate/Dose Verify - Provider: Megan Lin R.N.)1000 (Rate/Dose Verify - Provider: Megan Lin R.N.)1100 (Rate/Dose Verify - Provider: Megan Lin R.N.)1200 (Rate/Dose Verify - Provider: Megan Lin R.N.)1300 (Rate/Dose Verify - Provider: Megan Lin R.N.)1400 (Rate/Dose Verify - Provider: Megan Lin R.N.)1500 (Rate/Dose Verify - Provider: Megan Lin R.N.)1600 (Rate/Dose Verify - Provider: Megan Lin R.N.)1700 (Rate/Dose Verify - Provider: Megan Lin R.N.)1800 (Rate/Dose Verify - Provider: Megan Lin R.N.)1900 (Rate/Dose Verify - Provider: Zayda Travis R.N.)2000 (Rate/Dose Verify - Provider: Zayda Travis R.N.)2100 (Rate/Dose Verify - Provider: Zayda Travis R.N.)2200 (Rate/Dose Verify - Provider: Zayda Travis R.N.)2300 (Rate/Dose Verify - Provider: Zayda Travis R.N.) 0000 (Rate/Dose Verify - Provider: Zayda Travis R.N.)0100 (Rate/Dose Verify - Provider: Zayda Travis R.N.)0200 (Rate/Dose Verify - Provider: Zayda Travis R.N.)0300 (Rate/Dose Verify - Provider: Zayda Travis R.N.)0400 (Rate/Dose Verify - Provider: Zayda Travis R.N.)0500 (Rate/Dose Verify - Provider: Zayda Travis R.N.)0600 (Rate/Dose Verify - Provider: Zayda Travis R.N.)0700 (Rate/Dose Verify - Provider: Zayda Travis R.N.)0720 (Handoff - Provider: Zayda Travis R.N.)0800 (Rate/Dose Verify - Provider: Savannah Pelayo RMayN.)0900 (Rate/Dose Verify - Provider: Savannah Pelayo R.N.)1000 (Rate/Dose Verify - Provider: Savannah Pelayo R.N.)1100 (Rate/Dose Verify - Provider: Savannah Pelayo R.N.)1200 (Rate/Dose Verify - Provider: Savannah Pelayo R.N.)1400 (Rate/Dose Verify - Provider: Savannah Pelayo R.N.)1500 (Rate/Dose Verify - Provider: Savannah Pelayo R.N.)1600 (Rate/Dose Verify - Provider: Savannah Pelayo R.N.)1700 (Rate/Dose Verify - Provider: Savannah Pelayo R.N.)1800 (Rate/Dose Verify - Provider: Savannah Pelayo R.N.)1930 (Rate/Dose Verify - Provider: Jerzy Frost RMayN.)2000 (Rate/Dose Verify - Provider: Jerzy Frost R.N.)2100 (Rate/Dose Verify - Provider: Jerzy Frost R.N.)2200 (Rate/Dose Verify - Provider: Jerzy Frost R.N.)2300 (Rate/Dose Verify - Provider: Jerzy Frost R.N.)2334 (Stopped - Provider: Jerzy Frost RMayN.) ketamine 2 mg/mL in NaCl 0.9 % 250 mL infusion (Ketalar) (CANCELED) 0-0.5 mg/kg/hr ? 69.4 kg Dosing weight (0-17.35 mL/hr), intravenous, Continuous, Starting on Wed03/10/24 at 1800, Initiate at 0.1 mg/kg/min; titrate by 0.05 every 15 minutes to goal RASS of -1. Range 0.1-0.5 mg/kg/min 500 mg in 250 mL 0000 (Rate/Dose Verify - Provider: Zayda Travis R.N.)0050 (New Bag - Provider: Zayda Travis R.N.)0100 (Rate/Dose Verify - Provider: Fawad Chester.N.)0200 (Rate/Dose Verify - Provider: Zayda Travis R.N.)0300 (Rate/Dose Verify - Provider: Zayda Travis R.N.)0400 (Rate/Dose Verify - Provider: Zayda Travis R.N.)0500 (Rate/Dose Verify - Provider: Zayda Travis R.N.)0600 (Rate/Dose Verify - Provider: Zayda Travis R.N.)0700 (Rate/Dose Verify - Provider: Nico GodwinN.)0723 (Handoff - Provider: Fawad Chester.N.)0800 (Rate/Dose Verify - Provider: Nico GodwinN.)0845 (Rate/Dose Change - Provider: Nico GodwinN.)0900 (Rate/Dose Verify - Provider: Nico GodwinN.)0948 (Canceled Entry - Provider: Nico GodwinN.)1000 (Rate/Dose Verify - Provider: Nico GodwinN.)1003 (Rate/Dose Change - Provider: Fawad Godwin.N.)1018 (Rate/Dose Change - Provider: Nico GodwinN.)1100 (Rate/Dose Verify - Provider: Fawad Godwin.N.)1200 (Rate/Dose Verify - Provider: Fawad Godwin.N.)1300 (Rate/Dose Verify - Provider: Fawad Godwin.N.)1400 (Rate/Dose Verify - Provider: Fawad Godwin.N.)1500 (Rate/Dose Verify - Provider: Fawad Godwin.N.)1600 (Rate/Dose Verify - Provider: Fawad Godwin.N.)1623 (Rate/Dose Change - Provider: Nico GodwinN.)1642 (Rate/Dose Change - Provider: Fawad Godwin.N.)1657 (Rate/Dose Change - Provider: Nico GodwinN.)1700 (Rate/Dose Verify - Provider: Nico GodwinN.)1723 (Rate/Dose Change - Provider: Megan Lin RMayN.)1744 (Rate/Dose Change - Provider: Megan Lin R.N.)1800 (Rate/Dose Verify - Provider: Fawad Godwin.N.)1802 (Rate/Dose Change - Provider: Megan Lin R.N.)1833 (Rate/Dose Change - Provider: Fawad Godwin.N.)1900 (New Bag - Provider: Nico GodwinN.)2000 (Rate/Dose Verify - Provider: Zayda Travis R.N.)2004 (Stopped - Provider: Zayda Travis R.N.) Lactated Ringer's (CANCELED) 20 mL/hr, intravenous, Continuous, Starting on Wed03/10/24 at 2345 0000 (Rate/Dose Verify - Provider: Zayda Travis R.N.)0100 (Rate/Dose Verify - Provider: Zayda Travis R.N.)0108 (Stopped - Provider: Iron Cai R.N.)0215 (Rate/Dose Change - Provider: Zayda Travis R.N.)0300 (Rate/Dose Verify - Provider: Nico ChesterN.)0400 (Rate/Dose Verify - Provider: Nico ChesterN.)0500 (Rate/Dose Verify - Provider: Nico ChesterN.)0600 (Rate/Dose Verify - Provider: Nico ChesterN.)0616 (New Bag - Provider: Zayda Travis R.N.)0700 (Rate/Dose Verify - Provider: Nico GodwinN.)0722 (Handoff - Provider: Zayda Travis R.N.)0800 (Rate/Dose Verify - Provider: Megan Lin R.N.)0900 (Rate/Dose Verify - Provider: Fawad Godwin.N.)1000 (Rate/Dose Verify - Provider: Megan Lin R.N.)1100 (Rate/Dose Verify - Provider: Megan Lin R.N.)1200 (Rate/Dose Verify - Provider: Megan Lin R.N.)1300 (Rate/Dose Verify - Provider: Megan Lin R.N.)1400 (Rate/Dose Verify - Provider: Megan Lin R.N.)1500 (Rate/Dose Verify - Provider: Megan Lin R.N.)1600 (Rate/Dose Verify - Provider: Megan Lin R.N.)1700 (Rate/Dose Verify - Provider: Megan Lin R.N.)1800 (Rate/Dose Verify - Provider: Megan Lin R.N.)1900 (Rate/Dose Verify - Provider: Zayda Travis R.N.)2000 (Rate/Dose Verify - Provider: Zayda Travis R.N.)2006 (Rate/Dose Change - Provider: Zayda Travis R.N.)2100 (Rate/Dose Verify - Provider: Zayda Travis R.N.)2200 (Rate/Dose Verify - Provider: Zayda Travis R.N.)2300 (Rate/Dose Verify - Provider: Zayda Travis R.N.) 0000 (Rate/Dose Verify - Provider: Zayda Travis R.N.)0100 (Rate/Dose Verify - Provider: Zayda Travis, R.N.)0200 (Rate/Dose Verify - Provider: Zayda Travis R.N.)0300 (Rate/Dose Verify - Provider: Zayda Travis R.N.)0400 (Rate/Dose Verify - Provider: Zayda Travis R.N.)0500 (Rate/Dose Verify - Provider: Zayda Travis R.N.)0600 (Rate/Dose Verify - Provider: Zyada Travis, R.N.)0700 (Rate/Dose Verify - Provider: Zayda Travis R.N.)0721 (Handoff - Provider: Zayda Travis R.N.)0800 (Rate/Dose Verify - Provider: Savannah Pelayo RHarika.)0900 (Rate/Dose Verify - Provider: Savannah Pelayo RJuli)1000 (Rate/Dose Verify - Provider: Savannah Pelayo RMayN.)1100 (Rate/Dose Verify - Provider: Savannah Pelayo RMayN.)1200 (Rate/Dose Verify - Provider: Savannah Pelayo R.N.)1246 (New Bag - Provider: Nico McgheeNMay)1400 (Rate/Dose Verify - Provider: Savannah Pelayo R.N.)1500 (Rate/Dose Verify - Provider: Savannah Pelayo R.N.)1600 (Rate/Dose Verify - Provider: Savannah Pelayo R.N.)1700 (Rate/Dose Verify - Provider: Savannah Pelayo RMayN.)1800 (Rate/Dose Verify - Provider: Nico McgheeNMay)1923 (Stopped - Provider: Jerzy Frost RMayNMay) NaCl 0.9% infusion 3 mL/hr, intravenous, Continuous, Starting on Wed03/07/24 at 1100, Hemodynamic Monitoring Lines: catheter lumen of central venous catheter (CVC) and Arterial lines for Intensive Care Units (ICU), Progressive Care Unit (PCU) and Telemetry units. norepinephrine 16 mcg/mL in D5W 250 mL infusion 0-0.3 mcg/kg/min ? 69.4 kg Dosing weight (0-78.075 mL/hr, rounded to 0-78.08 mL/hr), intravenous, Continuous, Starting on Wed03/10/24 at 1800, Protect from light and avoid extravasation, Patient Type: Sepsis, Initiate at: 0.05 mcg/kg/min, Titrate at: 0.05 mcg/kg/min. every 5 min., Wean at: 0.01 mcg/kg/min. every 5 min., Goal: MAP 65-75 0000 (Rate/Dose Verify - Provider: Zayda Travis R.N.)0021 (Rate/Dose Change - Provider: Zayda Travis R.N.)0029 (Rate/Dose Change - Provider: Zayda Travis R.N.)0100 (Rate/Dose Verify - Provider: Zayda Travis R.N.)0110 (Rate/Dose Change - Provider: Nico OliviaNMay)0200 (Rate/Dose Verify - Provider: Zayad Travis, R.N.)0214 (Rate/Dose Change - Provider: Zayda Travis, R.N.)0220 (Rate/Dose Change - Provider: Zayda Travis, R.N.)0228 (Rate/Dose Change - Provider: Zayda Travis, R.N.)0232 (Rate/Dose Change - Provider: Zayda Travis, R.N.)0238 (Rate/Dose Change - Provider: Zayda Travis, R.N.)0300 (Rate/Dose Verify - Provider: Zayda Travis, R.N.)0400 (Rate/Dose Verify - Provider: Zayda Travis, R.N.)0454 (Rate/Dose Change - Provider: Zayda Travis, R.N.)0500 (Rate/Dose Verify - Provider: Zayda Travis R.N.)0600 (Rate/Dose Verify - Provider: Zayda Travis R.N.)0621 (Rate/Dose Change - Provider: Zayda Travis, R.N.)0700 (Rate/Dose Verify - Provider: Megan Lin R.N.)0722 (Handoff - Provider: Zayda Travis R.N.)0800 (Rate/Dose Verify - Provider: Megan Lin R.N.)0803 (Rate/Dose Change - Provider: Megan Lin R.N.)0846 (New Bag - Provider: Megan Lin R.N.)0900 (Rate/Dose Verify - Provider: Megan Lin R.N.)1000 (Rate/Dose Verify - Provider: Megan Lin R.N.)1017 (Rate/Dose Change - Provider: Megan Lin R.N.)1033 (Rate/Dose Change - Provider: Megan Lin R.N.)1037 (Rate/Dose Change - Provider: Megan Lin R.N.)1100 (Rate/Dose Verify - Provider: Megan Lin R.N.)1136 (Rate/Dose Change - Provider: Megan Lin R.N.)1200 (Rate/Dose Verify - Provider: Megan G Iln, R.N.)1219 (Rate/Dose Change - Provider: eMgan Lin R.N.)1233 (Rate/Dose Change - Provider: Megan Lin R.N.)1240 (Rate/Dose Change - Provider: Megan Lin R.N.)1300 (Rate/Dose Verify - Provider: Fawad Godwin.N.)1341 (Rate/Dose Change - Provider: Megan Lin R.N.)1400 (Rate/Dose Verify - Provider: Megan Lin R.N.)1440 (Rate/Dose Change - Provider: Mariel Vyas R.N., CCRN)1500 (Rate/Dose Verify - Provider: Megan Lin R.N.)1538 (Rate/Dose Change - Provider: Megan Lin R.N.)1600 (Rate/Dose Verify - Provider: Megan Lin R.N.)1610 (Rate/Dose Change - Provider: Megan Lin R.N.)1637 (Rate/Dose Change - Provider: Megan Lin R.N.)1653 (Rate/Dose Change - Provider: Megan Lin R.N.)1657 (Rate/Dose Change - Provider: Megan Lin R.N.)1700 (Rate/Dose Verify - Provider: Megan Lin R.N.)1727 (Rate/Dose Change - Provider: Megan Lin R.N.)1800 (Rate/Dose Verify - Provider: Megan iLn R.N.)1818 (Stopped - Provider: Fawad Godwin.N.) 0532 (New Bag - Provider: Zayda Travis R.N.)0551 (Rate/Dose Change - Provider: Zayda Travis R.N.)0600 (Rate/Dose Verify - Provider: Zayda Travis R.N.)0608 (Rate/Dose Change - Provider: Zayda Travis R.N.)0651 (Rate/Dose Change - Provider: Zayda Travis R.N.)0700 (Rate/Dose Verify - Provider: Zayda Travis R.N.)0704 (Rate/Dose Change - Provider: Nico ChesterN.)0721 (Handoff - Provider: Fawad Chester.N.)0800 (Rate/Dose Verify - Provider: Savannah Pelayo R.N.)0900 (Rate/Dose Verify - Provider: Savannah Pelayo R.N.)0950 (Rate/Dose Change - Provider: Savannah Pelayo R.N.)1000 (Rate/Dose Change - Provider: Savannah Pelayo R.N.)1015 (Rate/Dose Change - Provider: Savannah Pelayo R.N.)1020 (Stopped - Provider: Savannah Pelayo R.N.)195 (New Bag - Provider: Jerzy Frost R.N.)2008 (Rate/Dose Change - Provider: Jerzy Frost R.N.)2010 (Stopped - Provider: Jerzy Frost R.N.)2025 (Restarted - Provider: Jerzy Frost R.N.)2031 (Rate/Dose Change - Provider: Jerzy Frost R.N.)2041 (Stopped - Provider: Jerzy Frost R.N.)204 (Rate/Dose Change - Provider: Jerzy Frost, R.N.)2100 (Rate/Dose Verify - Provider: Jerzy Frost R.N.)2200 (Rate/Dose Verify - Provider: Jerzy Frost R.N.)2300 (Rate/Dose Verify - Provider: Jerzy Frost R.N.) 0000 (Rate/Dose Verify - Provider: Jerzy Frost R.N.)0026 (Stopped - Provider: Jerzy Frost R.N.)0149 (Restarted - Provider: Jerzy Frost R.N.)0152 (Rate/Dose Change - Provider: Jerzy Frost R.N.)0155 (Rate/Dose Change - Provider: Jerzy Frost R.N.)0200 (Rate/Dose Verify - Provider: Jerzy Frost R.N.)0217 (Stopped - Provider: Jerzy Frost R.N.) propofol 10 mg/mL infusion (Diprivan) (CANCELED) 40 mcg/kg/min ? 69.4 kg Dosing weight (16.656 mL/hr, rounded to 16.66 mL/hr), intravenous, Continuous, Starting on Wed03/10/24 at 1800, Type: Do Not Titrate 0000 (Rate/Dose Verify - Provider: Zayda Travis R.N.)0100 (Rate/Dose Verify - Provider: Zayda Travis R.N.)0101 (Rate/Dose Change - Provider: Zayda Travis R.N.)0154 (New Bag - Provider: Iron Cai R.N.)0200 (Rate/Dose Verify - Provider: Zayda Travis R.N.)0300 (Rate/Dose Verify - Provider: Zayda Travis R.N.)0400 (Rate/Dose Verify - Provider: Zayda Travis R.N.)0500 (Rate/Dose Verify - Provider: Zayda Travis R.N.)0600 (Rate/Dose Verify - Provider: Zayda Travis R.N.)0700 (Rate/Dose Verify - Provider: Megan Lin R.N.)0722 (Handoff - Provider: Zayda Travis R.N.)0746 (New Bag - Provider: Megan Lin R.N.)0800 (Rate/Dose Verify - Provider: Megan Lin R.N.)0844 (Stopped - Provider: Megan Lin R.N.) propofol 10 mg/mL infusion (Diprivan) (CANCELED) 0-40 mcg/kg/min ? 69.4 kg Dosing weight (0-16.656 mL/hr, rounded to 0-16.66 mL/hr), intravenous, Continuous, Starting on Wed03/12/24 at 0845, Ok to bolus from bag/vial 20 mg every 1 our for seizure like activity. , Type: Titrate, Initiate at: 5 mcg/kg/min., Titrate at: 5 mcg/kg/min. every 5 min., Goal: For sedation - refer to titratable arousal order for RASS goal 0844 (Restarted - Provider: Megan Lin R.N.)0900 (Rate/Dose Verify - Provider: Megan Lin R.N.)0947 (Rate/Dose Change - Provider: Megan Lin R.N.)1000 (Rate/Dose Verify - Provider: Megan Lin R.N.)1014 (Rate/Dose Change - Provider: Megan Lin R.N.)1018 (Rate/Dose Change - Provider: Megan Lin R.N.)1100 (Rate/Dose Verify - Provider: Megan Lin R.N.)1130 (New Bag - Provider: Megan Lin R.N.)1200 (Rate/Dose Verify - Provider: Megan Lin R.N.)1300 (Rate/Dose Verify - Provider: Megan Lin R.N.)1400 (Rate/Dose Verify - Provider: Megan Lin R.N.)1500 (Rate/Dose Verify - Provider: Megan Lin R.N.)1559 (New Bag - Provider: Megan Lin RMayN.)1600 (Rate/Dose Verify - Provider: Megan Lin R.N.)1622 (Rate/Dose Change - Provider: eMgan Lin R.N.)1653 (Rate/Dose Change - Provider: Megan Lin R.N.)1700 (Rate/Dose Verify - Provider: Megan Lin R.N.)1721 (Rate/Dose Change - Provider: Megan Lin R.N.)1743 (Rate/Dose Change - Provider: Megan Lin R.N.)1750 (Rate/Dose Change - Provider: Megan Lin R.N.)1800 (Rate/Dose Verify - Provider: Megan Lin R.N.)1808 (Rate/Dose Change - Provider: Megan Lin R.N.)1832 (Rate/Dose Change - Provider: Megan Lin R.N.)1853 (Stopped - Provider: Megan Lin RMayNMay) vasopressin 20 unit/100 mL (0.2 unit/mL) in D5W 100 mL infusion (Pitressin) 0.04 Units/min (12 mL/hr), intravenous, Continuous, Starting on 03/12/24 at 0230, 20 units in 100 mL 0219 (New Bag - Provider: Zayda S Thaddeus, R.N.)0300 (Rate/Dose Verify - Provider: Zayda Travis R.N.)0400 (Rate/Dose Verify - Provider: Zayda Travis R.N.)0500 (Rate/Dose Verify - Provider: Zayda Travis R.N.)0600 (Rate/Dose Verify - Provider: Zayda Travis R.N.)0617 (New Bag - Provider: Zayda Travis R.N.)0700 (Rate/Dose Verify - Provider: Fawad Godwin.N.)0722 (Handoff - Provider: Fawad Chester.N.)0800 (Rate/Dose Verify - Provider: Nico GodwinN.)0900 (Rate/Dose Verify - Provider: Megan Lin R.N.)1000 (Rate/Dose Verify - Provider: Fawad Godwin.N.)1016 (Stopped - Provider: Nico GodwinN.)1033 (Restarted - Provider: Megan Lin R.N.)1100 (Rate/Dose Verify - Provider: Fawad Godwin.N.)1126 (Stopped - Provider: Fawad Godwin.N.)1143 (Restarted - Provider: Megan Lin R.N.)1200 (Rate/Dose Verify - Provider: Megan Lin R.N.)1233 (Stopped - Provider: Megan Lin R.N.)1258 (Restarted - Provider: Fawad Godwin.N.)1300 (Rate/Dose Verify - Provider: Megan Lin R.N.)1345 (Stopped - Provider: Fawad Godwin.N.) 0943 (Restarted - Provider: Savannah Pelayo R.N.)1000 (Rate/Dose Verify - Provider: Savannah Pelayo R.N.)1054 (New Bag - Provider: Savannah Pelayo RMayN.)1100 (Rate/Dose Verify - Provider: Savannah Pelayo RMayN.)1200 (Rate/Dose Verify - Provider: Savannah Pelayo RMayN.)1400 (Rate/Dose Verify - Provider: Savannah Pelayo RMayN.)1500 (Rate/Dose Verify - Provider: Savannah Pelayo R.N.)1600 (Rate/Dose Verify - Provider: Savannah Pelayo R.N.)1700 (Rate/Dose Verify - Provider: Savannah Pelayo R.N.)1800 (Rate/Dose Verify - Provider: Savannah Pelayo R.N.)1841 (New Bag - Provider: Savannah Pelayo R.N.)1923 (Stopped - Provider: Jerzy Frost RJuli) PRN Medication Order 03/12/2024 03/13/2024 03/14/2024 acetaminophen suppository 650 mg (TylenoL) 650 mg, rectal, Every 6 hours PRN, mild pain or score 1-3 of 10, fever, headaches, Starting on Wed03/12/24 at 1800 0514 (Given - Provider: Zayda Travis R.N.) D10W bolus 250 mL 250 mL (25 g), intravenous, at 1,000 mL/hr, Administer over 15 Minutes, As needed, low blood sugar, For glucose less than 54 mg/dL, Starting on Tu02/29/24 at 1803, If intravenous access is available, administer D10W intravenously D5W infusion 1-999 mL/hr, intravenous, As needed, Medications Incompatible with 0.9% NaCL, Starting on [place] 03/02/24 at 1105, Infuse at the same rate as the piggyback until tubing clears or up to a volume of 20 mL pre and post infusion for medications incompatible with 0.9% NaCL. Use 50 mL bag then discard. diazePAM injection 10 mg (Valium) 10 mg, intravenous, Every 4 hours PRN, seizures, Starting on Wed03/10/24 at 1730 fentaNYL injection 25 mcg (Sublimaze) 25 mcg, intravenous, Every 2 hour PRN, severe pain or score 7-10 of 10, Starting on Wed03/13/24 at 2316, If pain uncontrolled, contact provider team for more options. 0142 (Given - Provider: Jerzy Frost RMayNMay) ipratropium-albuteroL 0.5-2.5 mg/3 mL nebulizer solution 3 mL (DUONEB) 3 mL, nebulization, 4 times daily PRN, wheezing, shortness of breath, Starting on Wed02/28/24 at 1625 propofol bolus from bag 20 mg (Diprivan) 20 mg, intravenous, Every 1 hour PRN, seizure activity, Starting on Wed03/12/24 at 1035 1022 (Bolus from Bag - Provider: Megan Lin R.N.)1255 (Bolus from Bag - Provider: Megan Lin RMayNMay) Linked Groups Order Group 1: caspofungin 70 mg in NaCl 0.9% IVPB (Cancidas) (COMPLETED)Jump to med 70 mg, intravenous, at 260 mL/hr, Administer over 60 Minutes, Once, On Wed03/13/24 at 0930, For 1 dose, Loading dose, Indications: Intra-abdominal infection, healthcare associated Followed by caspofungin 50 mg in NaCl 0.9% IVPB (Cancidas)Jump to med 50 mg, intravenous, at 257 mL/hr, Administer over 60 Minutes, Every 24 hours at 1800, First dose on Wed03/13/24 at 1800, Indications: Intra-abdominal infection, healthcare associated Group 2: PHENobarbital 695 mg in NaCl 0.9% IVPB (LuminaL) (COMPLETED)Jump to med 695 mg (rounded from 694 mg = 10 mg/kg ? 69.4 kg Dosing weight), intravenous, at 221 mL/hr, Administer over 15 Minutes, Once, On Wed03/12/24 at 1315, For 1 dose Followed by PHENobarbital injection 50 mg (LuminaL)Jump to med 50 mg, intravenous, 3 times daily, First dose on Wed03/12/24 at 2100 documented in this encounter Additional Health Concerns Infection Onset Date Last Indicated Resolved Time COVID19 Pending 02/29/2024 02/29/2024 02/29/2024 1 1:04 AM CDT documented as of this encounter Care Teams [employer] Relationship Specialty Start Date End Date Elsewhere, Pcp PCP - General Family Medicine 06/24/18 documented as of this encounter
--- OUTSIDE RECORDS SUMMARY | 2024-03-14 04:12 | XMS_ITS | Encounter Summary ---
Author Organization [facility] Address [address] [place] [id number] Care Team Providers Care Marine Habitat Resource Specialist Name Role Phone Elsewhere, Pcp Primary Care Provider Unavailabl e Encounter Details Date Type Department Care Team (Late Contact Info) Description 03/10/2024 2:09 PM CDT Anesthesia Event RST ROMB MAIN OR [address] [place] [address] [phone] Shanika Carpenter M.D. [address] [place] [phone] Ayad Georges, INSPECTOR CIRCUITRY NEGATIVE, CEREAL MILLER, DNAP [address] [place] [address] [phone] Anesthesia Record Procedure Summary Procedure Name Responsible Anesthesiologist Anesthesia Start Time Anesthesia Stop Time LAPAROSCOPIC EXPLORATION CONVERTED TO OPEN EXPLORATION LAPAROTOMY, RIGHT YAMIL-COLECTOMY, TEMPORARY ABDOMINAL CLOSURE (Abdomen) Shanika Carpenter M.D. 03/10/24 1409 03/10/24 1732 Events Date Time Event Comment 03/10/2024 1409 An Start Machine/Equipme nt Checked Infection Precautions Followed Procedure/Site Verified NPO Status Verified Supine Standard ASA Monitors Applied 1430 Turnover to Proceduralist 1451 Proc Start 1522 Lab Drawn ABG w/ electrol ytes drawn 1635 Lab Drawn ABG w/ electrol ytes, Coags, Plt 1659 Turnover to ANE Staff 1701 Proc Fin 1713 Airway Device Ma intained to Post Op Area 1714 Monitored Transport 1714 Transfer to ICU/PCU Anesthes ia transport medically necessary Report received and care transferred Transfer Details: Vital signs stable during transfer, Ventilation and oxygen saturation stable during transport, and 1714 an stop data 1730 Care transferred to ICU Staf f 1732 An End I completed my handoff to the receiving staff during which we 1. Identified the patient 2. Identified the responsible provider 3. Reviewed the pertinent medical history 4. Discussed the surgical course 5. Reviewed intra-op anesthesia management and issues during anesthesia 6. Set expectations for post-procedure period 7. Allowed opportunity for questions and acknowledgement of understanding. Meds Name Total fentanyl injection 50 mcg/mL 50 mcg rocuronium 10 mg/mL injection 100 mg phenylephrine 100 mcg/mL injection 300 m cg ePHEDrine PF 5 mg/mL syringe injection 1 0 mg ondansetron 4 mg/2 mL injection 4 mg sugammadex 100 mg/mL injection 200 mg levETIRAcetam in NaCl (iso osm) IVPB 1,5 00 mg (Keppra) 1,500 mg heparin 5,000 Units/mL injection 5,000 U nits metroNIDAZOLE in NaCl (iso osm) IVPB 500 mg (FlagyL) 500 mg albumin human injection 5% 500 mL calcium gluconate 100 mg/mL (10%) inject ion 2 g HYDROmorphone PF 2 mg/mL injection 0.6 m g dexAMETHasone (DECADRON) injection 4 mg/ mL 8 mg haloperidol 5 mg/mL injection 1 mg phenylephrine 20 mg/250 mL infusion 2.36 mg vasopressin 20 Units/mL injection 3 Unit s propofol 10 mg/mL infusion 62.22 mg Lactated Ringers Free Drip 1,000 mL lactated ringers free drip 0 mL * Agents No agents on file. * Blood Name Total RED BLOOD CELLS 630 mL Lines, Drains, and Airways Type Details Placement Removal Indwelling Urinary Catheter Inserted by: outside facility; Existing LDA Placed by: Other [facility] 02/28/24 1853 by Wound 03/12/23; 0900; Y; Unknown; Moisture; Abdomen; [...] Bilateral Groin 02/28/24 1600 by Tam Parikh R.N., CCRN ETT Placement Date: 03/01/24; Placement Time: 2236 (created via procedure documentation); Mask Ventilation: Easy mask; Technique: Video laryngoscopy; Type: Standard ETT; Single Lumen Tube Size: 7.5 mm; Cuffed: Yes; Location: Oral; Grade View: Grade 2A; Insertion Attempts: 1; Placement Verification: Bilateral breath sounds, Chest x-ray, Fiberoptic visualization, Positive ETCO2, Symmetrical chest wall movement 03/01/242236 by Ivory Paredes P.A.-C., M.S. PICC Double Lumen Placement Date: 03/02/24; Placement Time: 1199 (created via procedure documentation); Cath Out Checklist Completed: Yes; Size: 4 Fr; Description: PICC; Length: 38 cm; Orientation: Right; Location: Basilic; Site Prep: Chlorhexidine (Preferred); Local Anesth: Intradermal lidocaine; Initial Extremity Circumference: 34 cm; Initial Exposed Catheter: 0 cm; Inserted By: BESSIE; Insertion Attempts: 1; Placement Verification: ECG guidance 03/02/24 1200 by Elisa Chapman RJuli NG/OG Tube 03/09/24; 1600; Orogastric; 18 Fr; Oral 03/09/24 1600 by Iron Salmeron RJuli Arterial Line Placement Date: 03/10/24; Placemnt Time: 143 (created via procedure documentation); Size: 20 G; Orientation: Left; Location: Radial; Site Prep: Chlorhexidine (Preferred); Technique: Anatomical landmarks; Insertion Attempts: 1; Securement: Securement dressing, Securement device 03/10/24 1430 by Anastasiya Lee, RMayNMay Wound 03/10/24; 1641; Incision; all IPSI(s) removed; Removed; Abdomen; Medial 03/10/24 164 by Selma Hi R.NMay Peripheral IV Placement Date: 03/01/24; Placement Time: 2300; Catheter Size: 18 G; Orientation: Anterior, Right, Upper; Location: Arm; Removal Date: 03/10/24; Removal Time: 1948; Removal Reason: Leaking 03/01/240 by Zayda Nielson RMayNMay 03/10/241948 by Adriana Goodwin R.N. documented in this encounter Social History Tobacco Use Types Packs/Day Years Used Date Smoking Tobacco: Never Smokeless Tobacco: Never Alcohol Use Standard Drinks/Week Comments Never 0 (1 standard drink = 0.6 oz pur e alcohol) [facility] Utilities Answer Date Recorded In the past 12 months has e [place], gas, oil, or water Remote threatened to shut off services in your home? Patient unable to answer 03/07/2024 Humiliation, Afraid, Rape, a nd Kick questionnaire Answer Date Recorded Within the last year, have y ou been afraid of your partner or ex-partner? Patient unable to answer 03/07/2024 Within the last year, have y ou been humiliated or emotionally abused in other ways by your partner or ex-partner? Patient unable to answer 03/07/2024 Within the last year, have y ou been kicked, hit, slapped, or otherwise physically hurt by your partner or ex-partner? Patient unable to answer 03/07/2024 Within the last year, have y ou been raped or forced to have any kind of sexual activity by your partner or ex-partner? Patient unable to answer 03/07/2024 Social Connection and Isolation Panel [NHANES] A nswer Date Recorded In a typical week, how many times do you talk on the phone with family, friends, or neighbors? Never 12/11/2021 How often do you get togethe r with friends or relatives? Patient declined 12/11/2021 How often do you attend denominational or mosque serv ices? Patient declined 12/11/2021 Do you belong to any clubs o r organizations such as denominational groups, unions, fraternal or athletic groups, or [...] and heating? Not hard at all 12/11/2021 [facility] - Occupational Stress Questionnaire Answer Date Recorded [...] to buy more. Patient unable to answer 03/07/2024 Within the past 12 months, t he food you bought just didn't last and you didn't have money to get more. Patient unable to answer 03/07/2024 PRAPARE - Transportation Answer Date Re corded In the past 12 months, has l ack of transportation kept you from medical appointments or from getting medications? Patient unable to answer 03/07/2024 In the past 12 months, has l ack of transportation kept you from meetings, work, or from getting things needed for daily living? Patient unable to answer 03/07/2024 Nutrition Answer Date Recorded On average, how [...] situation today? Patient jimmie ble to answer 03/07/2024 Sex and Gender Information Value Date Recorded Sex Assigned at Male 12/11/2021 2:11 PM CDT Gender Identity Male 12/11/2021 1:44 PM CDT Sexual Orientation Straight 12/11/2021 2: 11 PM CDT documented as of this encounter OR Notes * Anesthesia Postprocedure Evaluation - Ayad Georges APRN, CRNA, DNAP - 03/10/2024 5:33 PM CDT Patient: Say Hilario Procedure Summary Date: 03/10/24 Room / Location: [address] [facility] in [place], [place] Anesthesia Start: 1409 Anesthesia Stop: 173 Procedure: LAPAROSCOPIC EXPLORATION CONVERTED TO OPEN EXPLORATION LAPAROTOMY, RIGHT YAMIL-COLECTOMY,TEMPORARY ABDOMINAL CLOSURE (Abdomen) Diagnosis: Providers: Aleks Hinkle M.D. Responsible Provider: Shanika Carpenter M.D. Anesthesia Type: general ASA Status: 4 Anesthesia Type: general Last vitals Vitals Value Taken Time BP 101/63 03/10/24 1731 Temp Pulse 71 03/10/24 1733 Resp 18 03/10/24 1733 SpO2 100 % 03/10/24 1732 Vitals shown include unfiled device data. Please reference Vitals flowsheet for most recent vital signs. Anesthesia Post Evaluation Patient Disposition: monitored unit, expectation for recovery time deferred to receiving unit Cardiovascular status: hemodynamics (HR & BP) unacceptable requiring ongoing treatment Respiratory status: mechanically ventilated Temperature: normothermic Oxygen requirements: assisted ventilation (non-invasive or mechanical ventilation) with additional oxygen Level of consciousness: unconscious, patient unable to participate in evaluation Pain score: pain unable to be assessed Hydration status: hypo or hypervolemic requiring ongoing treatment * Anesthesia Procedure Notes - Anastasiya Lee R.N. - 03/10/2024 2:30 PM CDT Associated Order(s): Invasive Catheter Invasive Catheter Date/Time: 03/10/2024 2:30 PM Performed by: Anastasiya Lee R.N. Authorized by: Renea Pelletier M.D. Location: OR PROCEDURE DETAILS: Line type: arterial Laterality: left Location: radial Location details: new site Age group: adult Catheter diameter: 20 Ga Technique: palpation Monitored: yes Number of attempts: 1 UNIVERSAL [...] preparation: chlorhexidine SEDATION / ANESTHESIA Anesthesia method: anesthesia POST-PROCEDURE DETAILS: Procedure completed successfully: yes Line secured: secured with sutureless device Chlorhexidine disc around insertion site and under catheter with slight turn: yes Notable Events - arterial: none * Anesthesia Preprocedure Evaluation - Renea Pelletier M.D. - 03/10/2024 1:27 PM CDT Preprocedure Anesthesia & H&P Assessment Procedure Summary Date/Time: 03/10/24 1350 Procedure: LAPAROSCOPIC EXPLORATION - DIAGNOSTIC, POSSIBLE ROBOTIC ASSISTED GASTRIC REPAIR, POSSIBLE EXPLORATION LAPAROTOMY, POSSIBLE STOMA, PROCEED INDICATED, POSSIBLE MULTIPLE TRIPS TO THE OR Location: [address] [facility] in [place], [place] Providers: Aleks Hinkle M.D. Pertinent components of the patient's history including current problem list, medical history, surgical history, family history, social history, medications and allergies were reviewed. Present illness and pre-op diagnosis were confirmed. The planned surgery / procedure was verified with the patient / legal guardian. 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) (+) Severe Sepsis With Septic Shock (HCC) RESP (+) Acute Respiratory Failure With Hypoxia (HCC) NEURO (+) Cerebrovascular Disease PSYCH (+) Delirium (not otherwise specified) Other (+) Cannabis Use Unspecified Uncomplicated OBJECTIVE PHYSICAL EXAMINATION Airway (HEENT) Pre-existing airway present Cardiovascular Rhythm: Regular Rate: Abnormal Cardiovascular Assessment: peripheral edema and weak pulses Functional Capacity: <4 METS Pulmonary Pulmonary Assessment: Crackles General / Constitutional Constitutional Assessment: Overweight General State of Health:: ill appearing ASSESSMENT / PLAN ANESTHESIA PLAN ASA: 4 Anesthesia Plan: general Patient seen and allergies reviewed, anesthesia plan and risks discussed directly with patient /legal guardian or through an thermostat repairer. Risks/Benefits/Alternatives of Blood transfusion discussed with patient / legal guardian, includingan opportunity to ask questions and/or decline some or all transfusion therapies. The patient / legal guardian consented to the use of all blood products, as deemed medically necessary Approval to Proceed: approved for anesthesia documented in this encounter Plan of Treatment Not on file documented as of this encounter Procedures Procedure Name Priority Date/Time Associated Diagnosis Comments LDA ANE ARTERIAL LINE INSERTION Routine 03/10/2024 2:30 PM CDT NV ARTL CATH/CNULA MONITOR PERC Routine 03/10/2024 2:30 PM CDT documented in this encounter Results * NV ARTL CATH/CNULA MONITOR PERC, LDA ANE ARTERIAL LINE INSERTION (03/10/2024 2:30 PM CDT) Narrative Ayad Georges APRN, KRSIHAN, DNAP - 03/10/2024 2:30 PM CDT Anastasiya [...] Renea Pelletier M.D. PROCEDURE/MINOR SURG ICAL ORDERABLES documented in this encounter Visit Diagnoses Not on filedocumented in this encounter Administered Medications Active Administered Medications - up to 3 most recent administrations Medication Order MAR Action Action Date Dose Rate Site metroNIDAZOLE in NaCl (iso osm) IVPB 500 [...] 12:50 PM CDT 500 mg 200 mL/hr Inactive Administered Medications - up to 3 most recent administrations Medication Order MAR Action Action Date Dose Rate Site albumin human 5 % injection intravenous, As needed, Starting on Wed03/10/24 at 1512, Anesthesia Intra-op Given 03/10/2024 3:35 PM CDT 250 mL Given 03/10/2024 3:12 PM CDT 250 mL calcium gluconate injection intravenous, As needed, Starting on Wed03/10/24 at 1543, Anesthesia Intra-op Given 03/10/2024 4:30 PM CDT 1 g Given 03/10/2024 3:43 PM CDT 1 g dexAMETHasone injection (Decadron) intravenous, As needed, Starting on Wed03/10/24 at 1600, Anesthesia Intra-op Given 03/10/2024 4:00 PM CDT 8 mg ePHEDrine (PF) injection intravenous, As needed, Starting on Wed03/10/24 at 1630, Anesthesia Intra-op Given 03/10/2024 4:30 PM CDT 5 mg Given 03/10/2024 4:05 PM CDT 5 mg fentaNYL injection (Sublimaze) intravenous, As needed, Starting on Wed03/10/24 at 1452, Anesthesia Intra-op Given 03/10/2024 2:52 PM CDT 50 mcg haloperidol lactate injection (HaldoL) intravenous, As needed, Starting on Wed03/10/24 at 1615, Anesthesia Intra-op Given 03/10/2024 4:15 PM CDT 1 mg heparin (porcine) injection subcutaneous, As needed, Starting on Wed03/10/24 at 1433, Anesthesia Intra-op Given 03/10/2024 2:33 PM CDT 5,000 Units HYDROmorphone (PF) injection (Dilaudid) intravenous, As needed, Starting on Wed03/10/24 at 1550, Anesthesia Intra-op Given 03/10/2024 3:50 PM CDT 0.6 mg Lactated Ringer's intravenous, Continuous Infusion: Per Instructions PRN, Starting on Wed03/10/24 at 1416, Anesthesia Intra-op New Bag 03/10/2024 4:08 PM CDT New Bag 03/10/2024 2:16 PM CDT Lactated Ringer's intravenous, Continuous Infusion: Per Instructions PRN, Starting on Wed03/10/24 at 1530, Anesthesia Intra-op New Bag 03/10/2024 3:30 PM CDT levETIRAcetam in NaCl (iso osm) IVPB 1,500 mg (Keppra) 1,500 mg, intravenous, at 300 mL/hr, Administer over 20 Minutes, Every morning, First dose on Wed03/10/24 at 1245 New Bag 03/11/2024 8:38 AM CDT 1,500 mg 300 mL/hr Given 03/10/2024 2:13 PM CDT 1,500 mg ondansetron (PF) injection (Zofran) intravenous, As needed, Starting on Wed03/10/24 at 1659, Anesthesia Intra-op Given 03/10/2024 4:59 PM CDT 4 mg phenylephrine 80 mcg/mL in NaCl 0.9% 250 mL infusion intravenous, Continuous Infusion: Per Instructions PRN, Starting on Wed03/10/24 at 1515, Anesthesia Intra-op Rate/Dose Change 03/10/2024 5:13 PM CDT 0.4 mcg/kg/min 21.21 mL/hr Rate/Dose Change 03/10/2024 4:35 PM CDT 0.2 mcg/kg/min 10. 605 mL/hr Rate/Dose Change 03/10/2024 4:13 PM CDT 0.3 mcg/kg/min 15. 907 mL/hr phenylephrine injection intravenous, As needed, Starting on Wed03/10/24 at 1449, Anesthesia Intra-op Given 03/10/2024 2:56 PM CDT 100 mcg Given 03/10/2024 2:49 PM CDT 200 mcg propofol 10 mg/mL infusion (Diprivan) intravenous, Continuous Infusion: Per Instructions PRN, Starting on Wed03/10/24 at 1710, Anesthesia Intra-op New Bag 03/10/2024 5:10 PM CDT 40 mcg/kg/min 16.968 mL/hr rocuronium injection (Zemuron) intravenous, As needed, Starting on Wed03/10/24 at 1454, Anesthesia Intra-op Given 03/10/2024 3:22 PM CDT 50 mg Given 03/10/2024 2:54 PM CDT 50 mg sugammadex injection (Bridion) intravenous, As needed, Starting on Wed03/10/24 at 1728, Anesthesia Intra-op Given 03/10/2024 5:28 PM CDT 200 mg Transfuse Red Blood Cells : Routine New Bag 03/10/2024 3:59 PM CDT Transfuse Red Blood Cells : Routine New Bag 03/10/2024 4:24 PM CDT vasopressin injection (Pitressin) intravenous, As needed, Starting on Wed03/10/24 at 1613, Anesthesia Intra-op Given 03/10/2024 4:33 PM CDT 1 Units Given 03/10/2024 4:13 PM CDT 1 Units Given 03/10/2024 3:29 PM CDT 1 Units documented in this encounter Care Teams Marine Habitat Resource Specialist Relationship Specialty Start Date End Date Elsewhere, Pcp PCP - General Family Medicine 06/24/18 documented as of this encounter
--- OUTSIDE RECORDS SUMMARY | 2024-03-14 04:12 | XMS_ITS | Encounter Summary ---
Author Organization [facility] Address [address] [place] [address] Care Team Providers Care Oncology Rep Specialist Name Role Phone Elsewhere, Pcp Primary Care Provider Unavailabl e Encounter Details Date Type Department Care Team (Late st Contact Info) Description 03/10/2024 3:10 PM CDT Ancillary Procedure Department of Trauma and Surgery Social History Tobacco Use Types Packs/Day Years Used Date Smoking Tobacco: Never Smokeless Tobacco: Never Alcohol Use Standard Drinks/Week Comments Never 0 (1 standard drink = 0.6 oz pur e alcohol) [facility] Utilities Answer Date Recorded In the past 12 months has e [place], gas, oil, or water [employer] threatened to shut off services in your [...] How often do you attend gnosticist or spiritism serv ices? Patient declined 12/11/2021 Do you [...] and heating? Not hard at all 12/11/2021 [facility] - Occupational Stress Questionnaire Answer Date Recorded [...] Procedure Name Priority Date/Time Associated Diagnosis Comments TRAUMA CC AND SURGERY IMAGE EXAM Routine 03/10/2024 3:09 PM CDT documented in this encounter Results * Abdomen-Trauma CC And Surgery Image Exam [...] on filedocumented in this encounter Care Teams Oncology Rep Specialist Relationship Specialty Start Date End Date Elsewhere, Pcp PCP - General Family Medicine 06/24/18 documented as of this encounter
--- OUTSIDE RECORDS SUMMARY | 2024-03-14 04:14 | XMS_ITS | Encounter Summary ---
Author Organization [facility] Address [address] [place] [id number] Care Team Providers Care Artificial Teeth Inspector Name Role Phone Elsewhere, Pcp Primary Care Provider Unavailabl e Encounter Details Date Type Department Care Team (Late Contact Info) Description 03/06/2024 9:59 AM CDT Anesthesia Event Department of Radiology, [facility], in [place], [place] [address] [place] [address] Ginger Hardin APRN, CRNA, DNAP [address] [place] [id number] Anesthesia Record Procedure Summary Procedure Name Responsible Anesthesiologist Anesthesia Start Time Anesthesia Stop Time MR BRAIN WITHOUT IV CONTRAST Ginger Hardin APRN, CRNA, DNAP 03/06/24 0959 03/06/24 1052 Events Date Time Event Comment 03/06/2024 0959 An Start Machine/Equipme nt Checked Infection Precautions Followed Procedure/Site Verified NPO Status Verified Supine Standard ASA Monitors Applied 1005 An Induction 1009 Turnover to Proceduralist 1015 Anesthesia Time Out 1015 Image Start 1034 Quick Note Contrast given by train control technician 1042 Image End 1046 Turnover to ANE Staff 1051 an stop data 1052 Airway Device Ma intained to Post Op Area 1052 Care transferred to ICU Staf f 1052 An End I completed my handoff to the receiving staff during which we 1. Identified the patient 2. Identified the responsible provider 3. Reviewed the pertinent medical history 4. Discussed the surgical course 5. Reviewed intra-op anesthesia management and issues during anesthesia 6. Set expectations for post-procedure period 7. Allowed opportunity for questions and acknowledgement of understanding. Meds Name Total norepinephrine 16 mcg/mL in D5W 250 mL i nfusion 0.11 mg * Agents No agents on file. * [...] chest wall movement 03/01/242236 by Ivory Paredes P.A.-Girish., M.S. PICC Double Lumen Placement Date: 03/02/24; [...] ECG guidance 03/02/24 1200 by Elisa Chapman R.N. Arterial Line Placement Date: 03/01/24; Placemnt Time: 2254 (created via procedure documentation); Size: 20 G; Orientation: Right; Location: Radial; Site Prep: Chlorhexidine (Preferred); Technique: Ultrasound guidance; Insertion Attempts: 1; Securement: Securement dressing, Securement device; Removal Date: 03/08/24; Removal Time: 1349; Removal Reason: Per order 03/01/242254 by Gregorio Comer, R.R.T., L.R.T. 03/08/241349 by Jen Magana RJuli Peripheral IV Placement Date: 03/01/24; Placement Time: 2299; Catheter Size: 18 G; Orientation: Anterior, Right, Upper; Location: Arm; Removal Date: 03/10/24; Removal Time: 1948; Removal Reason: Leaking 03/01/242299 by Zayda Nielson RMayNMay 03/10/241948 by Adriana Goodwin RJuli Wound 03/05/24; 1999; N; IntertrigDer; Groin; Bilateral; 03/06/24; 0941 03/05/241999 by Jennifer Arreola R.N., [facility] 03/06/24 0941 by Aliya Reis R.N., C.W.O.C.N. documented in this encounter Social History Tobacco Use Types Packs/Day Years Used Date Smoking Tobacco: Never Smokeless Tobacco: Never Alcohol Use Standard Drinks/Week Comments Never 0 (1 standard drink = 0.6 oz pur e alcohol) [facility] Utilities Answer Date Recorded In the past 12 months has [employer], [employer], oil, or water [employer] threatened to shut off services in your [...] declined 12/11/2021 How often do you attend quaker or protestant serv ices? Patient declined 12/11/2021 Do you belong to any clubs o r organizations such as quaker groups, unions, fraternal or athletic groups, or [...] OR Notes * Anesthesia Postprocedure Evaluation - Ginger Hardin APRN, KRISHAN, DNAP - 03/06/2024 10:53 AM CDT Patient: Say Hilario Procedure Summary Date: 03/06/24 Room / Location: Department of Radiology, [facility], in [place], [place] Anesthesia Start: 958 Anesthesia Stop: 1051 Procedure: MR BRAIN WITHOUT IV CONTRAST Diagnosis: (Altered Mental Status, please assess for causes) Scheduled Providers: Responsible Provider: Ginger Hardin APRN, [employer], DNAP Anesthesia Type: general ASA Status: 3 Anesthesia Type: general Last vitals Vitals Value Taken Time BP Temp Pulse 87 03/06/24 0958 Resp 10 03/06/24 0958 SpO2 99 % 03/06/24 0958 Vitals shown include unfiled device data. Please reference Vitals flowsheet for most recent vital signs. Anesthesia Post Evaluation Patient Disposition: monitored unit, expectation for recovery time deferred to receiving unit Cardiovascular status: hemodynamics (HR & BP) unacceptable requiring ongoing treatment Respiratory status: mechanically ventilated Oxygen requirements: assisted ventilation (non-invasive or mechanical ventilation) with additional oxygen Level of consciousness: unconscious, patient unable to participate in evaluation Pain score: pain unable to be assessed * Anesthesia Preprocedure Evaluation - Ginger Hardin APRN, CRNA, DNAP - 03/06/2024 10:27 AM CDT Preprocedure Anesthesia & H&P Assessment Procedure Summary Anesthesia Start Date/Time: 03/06/2459 Procedure: MR BRAIN WITHOUT IV CONTRAST Indications: Altered Mental Status, please assess for causes Location: Department of Radiology, [facility], in [place], [place] Pertinent components of the patient's history [...] airway present Cardiovascular Rhythm: Regular Rate: Normal Pulmonary Pulmonary Assessment: Diminished General / Constitutional Constitutional Assessment: Normal ASSESSMENT / PLAN ANESTHESIA PLAN ASA: 3 Anesthesia Plan: general Patient seen and allergies reviewed, anesthesia plan and risks discussed directly with patient /legal guardian or through an coin machine collector. The use of blood products not discussed Approval to Proceed: approved for anesthesia documented in this encounter Plan of Treatment Not on file documented as of this encounter Visit Diagnoses Not on filedocumented in this encounter Administered Medications Inactive Administered Medications - up to 3 most recent administrations Medication Order MAR Action Action Date Dose Rate Site norepinephrine 16 mcg/mL in D5W 250 mL infusion 0-0.3 mcg/kg/min ? 69.4 kg Dosing weight (0-78.075 mL/hr, rounded to 0-78.08 mL/hr), intravenous, Continuous, Starting on 03/04/24 at 0915, Protect from light and avoid extravasation, Patient Type: Sepsis, Initiate at: 0.05 mcg/kg/min, Titrate at: 0.05 mcg/kg/min. every 5 min., Wean at: 0.01 mcg/kg/min. every 5 min., Goal: Other, Goal: 60-65 Rate/Dose Change 03/07/2024 10:10 AM CDT 0.01 mcg/kg/min 2.6 mL/hr Rate/Dose Verify 03/07/2024 10:00 AM CDT 0.02 mcg/kg/min 5 .21 mL/hr Rate/Dose Verify 03/07/2024 9:00 AM CDT 0.02 mcg/kg/min 5. 21 mL/hr documented in this encounter Care Teams Artificial Teeth Inspector Relationship Specialty Start Date End Date Elsewhere, Pcp PCP - General Family Medicine 06/24/18 documented as of this encounter
--- OUTSIDE RECORDS SUMMARY | 2024-03-14 04:14 | XMS_ITS | Encounter Summary ---
Author Organization [facility] Address [address] [place] [address] Care Team Providers Care Fabric Sourcer Name Role Phone Elsewhere, Pcp Primary Care Provider Unavailabl e Encounter Details Date Type Department Care Team (Late st Contact Info) Description 03/10/2024 10:45 AM CDT Ancillary Procedure Department of Nursing Social History Tobacco Use Types Packs/Day Years Used Date Smoking Tobacco: Never Smokeless Tobacco: Never Alcohol Use Standard Drinks/Week Comments Never 0 (1 standard drink = 0.6 oz pur e alcohol) [facility] Utilities Answer Date Recorded In the past 12 months has e [employer], gas, oil, or water [employer] threatened to shut off services in your [...] declined 12/11/2021 How often do you attend islam or nondenominational serv ices? Patient declined 12/11/2021 Do you belong to any clubs o r organizations such as islam groups, unions, fraternal or athletic groups, or [...] and heating? Not hard at all 12/11/2021 [facility] - Occupational [...] Associated Diagnosis Comments NURSING IMAGE EXAM Routine 03/10/2024 10 :45 AM CDT documented in this encounter Results * Abdomen-Nursing Image Exam (03/10/2024 10:45 AM CDT) 03/10/2024 10:4 3 AM CDT Narrative [facility] - 03/10/2024 10:46 AM CDT This order has been created and auto-finalized to support the import of images acquired without order. The clinical documentation to support these images can be found on the encounter that produced images. Provider Not In System IMG NON RAD IMAGI NG PROCEDURES [facility] NA documented in this encounter Visit Diagnoses Not on filedocumented in this encounter Care Teams Fabric Sourcer Relationship Specialty Start Date End Date Elsewhere, Pcp PCP - General Family Medicine 06/24/18 documented as of this encounter
--- OUTSIDE RECORDS SUMMARY | 2024-03-14 04:14 | XMS_ITS | Encounter Summary ---
Author Organization [facility] Address [address] [place] [id number] Care Team Providers Care Pullman Car Repairer Name Role Phone Elsewhere, Pcp Primary Care Provider Unavailabl e Encounter Details Date Type Department Care Team ([facility] st Contact Info) Description 03/10/2024 1:50 PM CDT - 03/10/2024 4:37 PM CDT Surgery RST ROMB MAIN OR [address] [place] [phone] Aleks Hinkle M.D. [address] [place] [phone] LAPAROSCOPIC EXPLORATION CONVERTED TO OPEN EXPLORATION LAPAROTOMY, RIGHT MONICA-COLECTOMY, TEMPORARY ABDOMINAL CLOSURE Social History Tobacco Use Types Packs/Day Years Used Date Smoking Tobacco: Never Smokeless Tobacco: Never Alcohol Use Standard Drinks/Week Comments Never 0 (1 standard drink = 0.6 oz pur e alcohol) [facility] Utilities Answer Date Recorded In the past 12 months has e 5k Fans, gas, oil, or water [employer] threatened to shut off services in your [...] declined 12/11/2021 How often do you attend hinduism or denominational serv ices? Patient declined 12/11/2021 Do you belong to any clubs o r organizations such as hinduism groups, unions, fraternal or athletic groups, or [...] and heating? Not hard at all 12/11/2021 [facility] [place] of Occupat ional Health - Occupational Stress [...] Sign Reading Time Taken Comments Blood Pressure 106/69 03/10/2024 2:00 PM CDT Pulse 97 03/10/2024 2:00 PM CDT Temperature 36.9 ??C (98.4 ??F) 03/10/2024 1 2:00 PM CDT Respiratory Rate 18 03/10/2024 2:00 PM CDT Oxygen Saturation 97% 03/10/2024 2:00 PM CDT Inhaled Oxygen Concentration - - [...] at age 12, seizures, who presents to [facility] Intensive Care unit via ambulance for further evaluation and management of acute respiratory failure in the setting of pneumonia. Patient presented to [facility] Emergency Department the morning of 02/28/2024 [...] his presentation to the emergency department at [place], patient was started on BiPAP for hypoxia. [...] to the medical intensive care unit at [facility] alert, two IVs in place, as well [...] Remission (HCC) Seizure (HCC) Ayaan Gastaut Syndrome (HCC) Overgrowth Bacterial Small Bowel [...] Of Left Femoral Vein (HCC) Coma (HCC) documented in this encounter Discharge Instructions * Discharge Instr - Diet* Fela Mann RDN, ADELA - 03/01/2024 2:28 PM CDT NUTRITION Summary provided by: Fela Mann RDN, LD Date completed: 03/01/2024 Oral diet: {Oral diet:50789} Feeding tube information: Transgastric Jejunal 22 [facility] TGJ (transgastric jejunal) *Do Not Rotate* Who placed the tube: [facility] Date of tube placement: December 29, 2023 To maintain enteral access the patient's feeding tube should be replaced at regular intervals. Recommended replacement for feeding tube with internal balloon is every 3-5 months. Tube feeding program: Formula: Promote Feeding method: Continuous pump controlled Feeding schedule/goal: mL/hour over hours. Water flushes: {Water flushes:90443} Vitamin/mineral supplementation: {Vitamin/mineral supplementation:72815} This program provides calories and grams protein per day. Monitor your weight 1-2 time(s) per week. Anthropometrics: Weight: 66.9 kg Height: 156 cm BMI (Calculated): 27.5 kg/m?? Estimated Needs: Total Calorie Needs: 4196-4724 calories/day Method to Estimate Energy Needs: kcal/kg (22-25 kcal/kg) Weight Used for Equation Calculations: 66.9 kg Total Protein Needs: 80 - 100 grams/day Method to Estimate Protein Needs (g/kg): 1.2 - 1.5 gm/kg Weight Used to Calculate Protein Needs (Kg): 66.9 kg Your Durable Medical Equipment (DME)/Infusion company for tube feeding supplies is: [place]: ; [place] [employer] . Please contact this DME [...] encounter Progress Notes * Lauren Palencia M.S., CCC-OLIVING MACHINE OPERATOR - 03/13/2024 4:57 PM CDT 03/13/24 1656 Reason Therapy Missed Reason Therapy Missed Medical hold (Patient was not appropriate for speech this date due to concern for ongoing seizures and ongoing sedating medication. OLIVING MACHINE OPERATOR will continue to follow [phone]) * Shanna Boudreaux P.T., Keren.P.TMay, KUNAL - 03/13/2024 1:09 PM CDT 03/13/24 1308 Reason Therapy Missed Reason Therapy Missed Medical hold (Communicated with OT and RN this AM. Patient remains intubated and minimally responsive, ongoing concern for seizures. we will hold therapy today and check back as able.) * Celi Cueva R.N., C.W.C.N. - 03/13/2024 12:31 PM CDT [facility] Wound RN following up to assess Say [...] Scant Drainage Description Serous Ana-wound Assessment Blanchable erythema;[place];Rash Treatments Cleansed Periwound Treatment Cleansed (Comment) Wound Cleansed with Foam cleanser *Primary Dressing Acetic acid (nystatin cream (will dc hydrocortisone) with soaks) *Primary Dressing Frequency of Change 2x/day & PRN Primary Dressing Changed Changed Primary Dressing Status Intact *Secondary Dressing Other (Comment) (nystatin powder between soaks) *Secondary Dressing Frequency of Change 2x/day & PRN Changed by Wound laborer pipeline Ongoing management Nursing;Wound/cherry grower Wound 03/12/23 Other Moisture Associated Skin Damage Abdomen Left;Lower GJ-Tube Date First Assessed/Time First Assessed: 03/12/23 0900 Present on Original Admission: Yes Wound Approximate Age at First Assessment: Unknown Primary Wound Type: Other Moisture Associated Skin Damage Location: Abdomen Wound Location Orientation: ... *Shape Irregular *Wound Bed Closed;[place] Tissue Exposed None Odor None *Exudate Amount Small Drainage Description Yellow Ana-wound Assessment Fragile;[place] Treatments Cleansed Periwound Treatment Cleansed (Comment) Wound Cleansed with Foam cleanser *Primary Dressing Acetic acid (nystatin cream with soaks (hydrocortisone to be dc'd)) *Primary Dressing Frequency of Change 2x/day & PRN Primary Dressing Changed Changed Primary Dressing Status Intact *Secondary Dressing Foam (Mepilex Up between soaks) *Secondary Dressing Frequency of Change 2x/day & PRN Changed by Wound laborer pipeline Ongoing management Nursing;Wound/cherry grower Focused assessment completed DRESSING RECOMMENDATIONS: #1 Friction [...] Acute Remission (HCC) #2 Seizure (HCC) #3 [place] Gastaut Syndrome (HCC) #4 Pneumonia #5 Dysphagia [...] Of Left Femoral Vein (HCC) #18 Coma ([facility]) Mr. Hilario is a 44 year old [...] which showed changes not unexpected given his [place]-Gost[place] and anti-epileptic medications. MRI of the head [...] to assist with complex medication therapy for Ayaan-Gastaut syndrome On 03/07 noted to have abdominal [...] for by the HSS-B team. Please page [phone] (S-B) with any questions. Plan and assessment [...] / PLAN #1 Break through seizures #2 [place] Gastaut Syndrome #3 Ileus with colon perforation s/p sigmoid colectomy, ileocolonic anastomosis, end colostomy #4 TPN #5 Aspiration pneumonia #6 Dysphagia on long term care phlebotomist tube feeds via gastrojejunal tube #7 History [...] Discussed with his family at bedside. Call [phone] with questions/concerns. * Camelia Faustin R.N., EDUAR [...] ([employer]) Status Changed Changed by Wound laborer pipeline Pouching System Removed OR system, urostomy pouch Pouching System Applied [employer]avan #[id number], [id number], [id number] Ongoing management Wound/cherry grower Output Description None Stool Output (mL) 0 mL ASSESSMENT / PLAN EDUCATION STATUS Education not started at today's visit. PLAN WOC nurse continuing to follow. WOC RN will return tomorrow to check seal if output. Page [facility] [phone] M-F 6:30AM-2:30PM with questions or leakage issues. Wednesday pager [phone] 8:00AM-2:30PM. * Jennifer Mims M.B., Ch.B. - [...] Esophageal #8 Severe Sepsis With Septic Shock ([facility]) #9 Nephrolithiasis #10 Brain Stem Stroke Syndrome #11 Jejunostomy Status Post ([facility]) #12 Delirium (not otherwise specified) #13 Gastrostomy Status ([facility]) #14 Apnea Sleep Obstructive #15 Hyponatremia #16 Acute Respiratory Failure With Hypoxia (HCC) #17 Acute Embolism And Thrombosis Of Left Femoral Vein (HCC) #18 Coma (HCC) Nutrition Needs: Height: 156 cm Admission Weight: 69.4 kg (02/28/2024) Current Weight: 70.7 kg BMI (Calculated): 29.1 kg/m?? Total Calorie Needs: 9133-4903 (HB Basal and 20-25 kcals/kg) calories/day Method to Estimate Energy Needs: [place] (Basal) Weight Used for Equation Calculations: 69.4 [...] furosemide. Will continue to follow. Please call [facility] pager [phone] with any additional questions. * Paul Lee, Pharm.D., R.Ph., [facility] - 03/13/2024 8:39 AM CDT Pharmacist Progress Note HPI: 44 y.o. male. Admitted on 02/27 for acute hypoxemic respiratory secondary to community acquiredpneumonia. 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, chronic G-tube placement (placed age 10, converted to GJ tube in 2019), history of lateral medullary stroke at age 12, as well as recurrent seizures OBJECTIVE Outpatient medication history: Reviewed and verified by a Pharmacist(or pharmacy cashier) on 02/28 Procedures(this encounter): - 03/01: Intubation and bronchoscopy - 03/10: laparoscopic converted to open abdominal exploration with right monica-colectomy - 03/11: abdominal exploration with cholecystectomy, sigmoidectomy, ileocolonic anastomosis, and descending colostomy Neuro/Psych: RASS -3to-4, no orient, CAM+, pain 0 with fent infusion. Neuro following for encephalopathy and complex ARBORICULTURIST anti-epileptic regimen that has been transitioned to [...] following for CPN. Glucose <180 Prophylaxis: SQH, PPI(ARBORICULTURIST), chlorhex ASSESSMENT / PLAN History of complex [...] today. Paul Lee PharmElsy., R.Ph., BCCCP Pager [phone] * Samuel Belle APRN, C.N.P. - 03/13/2024 4:53 AM CDT SUBJECTIVE Brief Summary: Mr. Hilario is a 44 year old male with a PMH of Ayaan-Gastaut syndrome, developmental delay, ALL treated with chemoradiation, hx of lateral medullary stroke at age 12, and seizures who presented to [facility] ED with shortness of breath and hypotension. [...] which showed changes not unexpected given his [place]-Gostout and anti-epileptic medications. MRI of the head [...] size, borderline reduced systolic function, RVSP 34, aism-br-gsfljupf tricuspid valve regurgitation, tiny posterior pericardial effusion [...] Acute Remission (HCC) #2 Seizure (HCC) #3 [place] Gastaut Syndrome (HCC) #4 Pneumonia #5 Dysphagia [...] Intake/Output 03/11/24 0700 - 03/12/24 0659 03/12/24 07 - 03/13/24 0659 Intake (ml) 8333.3 398.5 [...] Acute Remission (HCC) #2 Seizure (HCC) #3 [place] Gastaut Syndrome (HCC) #4 Pneumonia #5 Dysphagia [...] admission: 44 year old male admitted to [facility] Medical ICU on 02/28/2024 for acute hypoxemicrespiratory secondary to community acquired pneumonia. 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 [phone] * Ginger Eugene, AKASH, C.N.P. - 03/12/2024 9:21 AM CDT [facility] PROGRESS NOTE SUBJECTIVE [...] ABDOMINAL CLOSURE Aleks Hinkle M.D.Steadman, Jessica A, M.B.BMaySLauren Flores M.D. [facility] ROMB OR 03/11/2024 EXPLORATION ABDOMINAL, cholecystectomy, sigmoidectomy, ileocolonic anastomosis, descending colostomy Aleks Hinkle M.D.Stewart, Brody R, M.D. [facility] OR #1 Leukemia Lymphocytic Acute Remission (HCC) #2 Seizure (HCC) #3 [place] Gastaut Syndrome (HCC) #4 Pneumonia #5 Dysphagia [...] year old male with a PMH of Corapeake-Gastaut syndrome, developmental delay, ALL treated with chemoradiation, hx of lateral medullary stroke at age 12, and seizures who presented to [facility] ED with shortness of breath and hypotension. [...] to assist with complex medication therapy for Corapeake-Gastaut syndrome On 03/07 noted to have abdominal [...] concerns please page the HSS-B service at [phone]. * Rick Casillas M.D. - 03/12/2024 9:14 [...] BMI (Calculated): 29.1 kg/m?? Total Calorie Needs: 2425-4151 (MSJ Basal 1430 kcals) calories/day Method to Estimate Energy Needs: [place] (Basal) Weight Used for Equation Calculations: [...] of thiamine. Please call NSS pager at [phone] at [facility] or [phone] at [facility] with any additional questions. BILLING/CODING Total visit 35 minutes. * Samuel Belle APRN, C.N.P. - 03/12/2024 1:12 AM CDT [...] which showed changes not unexpected given his [place]-Gostout and anti-epileptic medications. MRI of the head [...] 92 I/O last 3 completed shifts: In: 85828.7 [Enteric (NG/OG) Tube:170] Out: 2313.5 [Urine:1056; Emesis [...] 0.04 - lactate: 0.8 (1) - EKG: SR - ECHO (03/01/2024): normal LV size, no regional wall motion abnormalities, LVEF 66% normal LV filling pressure, normal RV size, borderline reduced systolic function, RVSP 34, zrjf-wo-wcgufawg tricuspid valve regurgitation, tiny posterior pericardial effusion [...] on levetiracetam 2000 mg BID IV and [id number] mg BID IV - as long as [...] Acute Remission (HCC) #2 Seizure (HCC) #3 [place] Gastaut Syndrome (HCC) #4 Pneumonia #5 Dysphagia [...] I agree with his findings and plan. [facility] ICU ATTIC BLOWER NOTE SUBJECTIVE Mr. 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 On 6/28, he underwent right hemicolectomy for perforated cecal [...] Vizcarra U - 03/11/2024 1:08 PM CDT [facility] Spiritual Care Consult Note Patient: aSy Hilario Age:44 y.o. Location: [id number] Reason(s) for encounter: Spiritual Care contact for ongoing spiritual care. Summary: I was able to meet with Say Hilario. Say was in bed and not communicating. [facility] was sitting in the room waiting [...] administered with prayer and blessing. Spiritual Assessment Congregational Identification / Spiritual Practices: Restorationist. Coping and support: Pt's parents were in the room giving him emotional comfort. Spiritual Care interventions: Therapeutic and supportive listening was provided with the aim of allowing patient/family expression of emotions, hopes and worries regarding current medical condition and life stage. Facilitated denominational/spiritual practices (prayer, blessing, sacred texts, denominational item) with theaim to reinforce patient's spiritual wellness and connection with source of sacredness. Spiritual Care outcomes: Patient/family achieved a sense of spiritual peace. Patient/family was appreciative of spiritual care support. Spiritual Care Plan / Recommendations: Will remain available for spiritual care as needed or requested. Chaplains can be contacted by paging [phone] ([place]) or [phone] (Christianity). * David Arreaga R.N., C.W.C.N. - 03/11/2024 12:33 PM CDT [facility] Wound RN reconsulted to assess Say Hilario skin alterations. Wound assessment, pain, and Javier score noted in the flowsheet. No images were taken during this patient assessment. History: Per provider note, the patient was admitted to the hospital for acute hypoxemic respiratory failure secondary to community-acquired versus aspiration pneumonia. The patient's significant history includes cerebrovascular disease, Corapeake Gastaut Syndrome, chronic dysphagia with PEJ placement, and intellectual disability. Assessment: The [facility] nurse was reconsulted to assess for worsening MASD around GJ Tube secondary to increased drainage. On assessment; the affected area around the GJ Tube has slightly improved. The erythema has reducedand the generalized epidermal striping has resolved. There are worsening erosions secondary to moisture and friction from the tubing at 12- 6 o'clock. The [facility] nurse recommends the same modality of care [...] None Unable to Measure Y *Wound Bed Open;[place];White Odor None *Exudate Amount Small Drainage Description Serosanguineous Ana-wound Assessment Fragile Treatments Cleansed Periwound Treatment Cleansed (Comment) Wound Cleansed with Wound cleanser *Primary Dressing Acetic acid (with [place]/Nystatin Cream) *Primary Dressing Frequency of Change 3x/day & PRN *Secondary Dressing Foam (Mepilex Up) *Secondary Dressing Frequency of Change 3x/day & PRN Secondary Dressing Changed New Changed by Unit based nurse;Wound laborer pipeline Ongoing management Nursing;Wound/cherry grower Wound 03/10/24 Incision IPSI(s) present Abdomen Medial [...] no further concerns at this time. The [facility] RN will continue to see the patient, contact or reconsult for worsening wounds or new wounds. Electronically signed by: David Arreaga R.N., Marleni ([facility] student) 03/11/24 12:34 PM CDT * Ross [...] open, vac dressing placed. There is a [id number] bruise to the right of his incision. G-tube looks well. Assessment ASSESSMENT AND PLAN #1 Leukemia Lymphocytic Acute Remission (HCC) #2 Seizure (HCC) #3 [place] Gastaut Syndrome (HCC) #4 Pneumonia #5 Dysphagia [...] (HCC) This is a 44-year-old male with [place] Gastaut Syndrome. He underwent right hemicolectomy for [...] for by the HSS-B team. Please page [phone] (HSS-B) with any questions. Plan and assessment [...] BMI (Calculated): 29.1 kg/m?? Total Calorie Needs: 6041-7480 (MSJ Basal 1430 kcals) calories/day Method to Estimate Energy Needs: [place] (Basal) Weight Used for Equation Calculations: [...] surgical team. Please call NSS pager at [phone] at [facility] or [phone] at [facility] with any additional questions. BILLING/CODING Total visit 35 minutes. * Savannah Fong M.B.B.SMay - 03/11/2024 2:25 AM CDT SICU Progress Note REASON FOR ADMISSION - s/p ex lap, right hemicolectomy for cecal perforation, mobilization of gallbladder, discontinuity, packing (quick clot, lap pad), TAC on 03/10 HISTORY OF PRESENT ILLNESS Mr. Hilario is a 44 year old male with a PMH of [place]ape[place]-Gastaut syndrome, developmental delay, ALL treated with chemoradiation, hx of lateral medullary stroke at age 12, and seizures who presented to [facility] ED with shortness of breath and hypotension. [...] which showed changes not unexpected given his [place]ost[place] and anti-epileptic medications. MRI of the head [...] size, borderline reduced systolic function, RVSP 34, bxbn-nc-svndcrxp tricuspid valve regurgitation, tiny posterior pericardial effusion. [...] Acute Remission (HCC) #2 Seizure (HCC) #3 [place] Gastaut Syndrome (HCC) #4 Pneumonia #5 Dysphagia [...] I agree with her findings and plan. [facility] ICU ATTIC BLOWER NOTE SUBJECTIVE Mr. Hilario is a 44 [...] a 44 year old male patient with Corape[place]-Gostout syndrome complicated by refractory epilepsy, prior stroke, [...] been billed separately. * Michelle Anderson R.R.T., TezR.T. - 03/10/2024 5:48 PM CDT 03/10/24 1645 Internal Patient Transport Internal Patient Transport From PA Transport Equipment Assisted Ventilation;Oxygen Therapy Transport Time (minutes) 45 Pt transported from OR 405 to 516 on T1 ventilator on the following settings: Mode:PCMV PC:15 PEEP:+10 RR:15 FiO2:50% Nursing and Respiratory personnel present for handoff. Anesthesia bag and mask present on transport. No complications during transport. Electronically signed by: Michelle Anderson R.R.T., TezR.T. 03/10/24 5:49 PM CDT * Rosalina Wagner M.S., O.T. - 03/10/2024 11:48 AM CDT 03/10/24 1148 Reason Therapy Missed Reason Therapy Missed Medical hold Plan for patient to undergo emergent abdominal surgery. Will hold skilled therapies this date and resume therapy plan of cares when patient is medically appropriate. Zunilda Wagner M.S., O.T. * Jose De Jesus Dunn, PharmMayD., R.Ph. - 03/10/2024 8:51 AM CDT Pharmacist Progress Note Reason for admission: 44 year old male admitted to [facility] Medical ICU on 02/28/2024 for acute hypoxemicrespiratory secondary to community acquired pneumonia. 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 Jose De Jesus Dunn, Emmett, R.Ph. [phone] * Rufus Ba M.B.B.S. - 03/10/2024 7:19 AM CDT SUBJECTIVE This [...] 44-year-old male with medical history significant for Corapeake-Gastaut syndrome with recurrent seizures and cognitive delay [...] male patient with medical comorbidities consisting of Corapeake-Gastaut syndrome who was admitted to the medical [...] with a past medical history significant for Corapeake-Gastaut syndrome, developmental delay, ALL treated with chemoradiation, [...] evaluation. Plan otherwise as follows: NEURO # [place]-Gastaut Syndrome # Developmental Delay # History of [...] Family: Mother, Shelby. Father, Andrés. * Amena Winn, PBarbara, D.P.T. - 03/09/2024 2:32 PM CDT Physical Therapy Inpatient Treatment Note SUBJECTIVE Patient's Name: Say Hilario Referring/Attending: Rufus Ba M.B.B.S. Medical Diagnosis: [...] Standardized Score: 16.59 Interpretation: Clinicians answer the AM-PAC Inpatient Short Form based on observed patient [...] 44 y.o. male who was admitted to [facility] in [place] on 02/28/2024 for Acute Respiratory Failure With [...] discussed and coordination of care occurred with furnace stock inspector/Caregiver Present: Mother and Father Co-treat with physical [...] symptoms due to mental status. Outcome Measures: [facility] Inpatient Short Form: Putting on and taking [...] at or below 17 Clinicians answer the [facility] Inpatient Short Form based on observed patient [...] Epps M.T.S. - 03/09/2024 9:30 AM CDT [facility] Spiritual Care Progress Note Patient: Say Hilario Age:44 y.o. Location: [id number] Reason(s) for encounter: Spiritual Care contact to introduce spiritual care service and assess for potential spiritual care needs. Spiritual Care contact for ongoing spiritual care. Spiritual Care contact per Family's request. Spiritual Care contact for denominational rites/sacramental encounter. Summary: I was able to meet with Say Hilario who was in bed and the healthcare staff attending to him. Family members were present in the room. Say could not engage. He was still intubated. The family was supported and prayer shared for the continued healing of the patient. Spiritual Assessment Congregational Identification / Spiritual Practices: Say is a Restorationist Coping and support: Family members were present [...] current medical condition and life stage. Facilitated denominational/spiritual practices (prayer, blessing, sacred texts, denominational item) with theaim to reinforce patient's spiritual [...] requested. Chaplains can be contacted by paging [phone] ([place]) or [phone] (Christianity). * Rufus Ba M.B.B.S. - 03/09/2024 7:08 [...] after initiation of therapeutic anticoagulation; resolved #7 Corapeake-Gastaut syndrome with recurrent seizures and severe cognitive [...] would not like to be in a long term care phlebotomist care facility or be on a ventilator [...] after initiation of therapeutic anticoagulation; resolved #7 [place]apeake-Gastaut syndrome with recurrent seizures and severe cognitive [...] a time. Plan By Systems: NEURO # Ayaan-Gastaut Syndrome [...] mg PM, and Rufinamide 200 mg AM [id number] mg PM. Levels pending - Pain regimen: [...] Andrés. - baseline cognitive status is approximately 87-vyhak-oog. * Anastasiya Landrum RDN, LD - 03/08/2024 [...] reviewed GI Function: Last BM Date: 03/07/24, [place] Stool Chart: Type 7: Watery, no solid pieces, Passing Flatus: Yes. Estimated Needs: Calories: 1794-0474 (MSJ Ojavs=0285 kcal) calories/day Method to Estimate Energy Needs: [...] about patient's nutritional care please contact pager [phone] on weekdays 07:30-16:00 or [phone] on weekends/holidays ([facility]). * Jose De Jesus Dunn, Pharm.D., R.Ph. - 03/08/2024 8:36 AM CDT Pharmacist Progress Note Reason for admission: 44 year old male admitted to [facility] Medical ICU on 02/28/2024 for acute hypoxemicrespiratory secondary to community acquired pneumonia. 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 Jose De Jesus Dunn, Tami.D., R.Ph. [phone] * Rufus Ba M.B.BMayS. 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 Plan By Systems: NEURO # Ayaan-Gastaut Syndrome [...] mg PM, and Rufinamide 200 mg AM [id number] mg PM. Levels pending - Pain regimen: [...] Andrés. - baseline cognitive status is approximately 64-cunbc-vjs. * Malini Lamb L.Tayla.S.W., M.S.W. - 03/07/2024 3:30 PM CDT SUBJECTIVE Social Work met with the patient, parents, and family members in the patient's room on 6 . Social Work provided the patient's parents with name and contact information for [facility]. [facility] provides RN and ACTIVITY THERAPY SPECIALIST in home services for medically complex individuals. [...] patient is on a CAC waiver through [facility], his parent's/guardians gave this social media sr strategy manager permission to contact [facility] to inquire about available services under the [facility] waiver. Social Work called and left a message with the CAC worker. The patient receives 3 care home visits per week through [facility]. Their services have been reconnected as has [facility] for patients oxygen needs and services through [facility] for patients TPN nutrition needs. ASSESSMENT / PLAN ASSESSMENT Patient was sleeping when social work entered the room. Both parent's were present as well as otherfamily members. The patient's parents are very committed and attentive caregivers. The are extremely knowledgeable regarding the patients diagnosis, medical and care needs. PLAN - The patient will return to his parents home in [place], [place] at time of discharge. - The patient's family will provide transportation at time of discharge. - Social Work will continue to follow for supportive visits and discharge planning needs. 1.) Patient will return home with their previous nutrition services. Dialysis/Infusion - Admitted Since 02/28/2024 Service Provider Selected Services Address Phone Fax Patient Preferred [facility] Infusion and IV Therapy [phone], [facility] [phone] -- Contact: Tc They will continue to [...] Selected Services Address Phone Fax Patient Preferred [facility] [address] [facility] [place] [address] [phone] -- Contact: Jesica What Care are they providing for the patient: Long Term visit 7 days a week for 1 hour. How do we reach your agency on a weekend/holiday? [phone] NURSING: - Complete documentation in the Discharge [...] Selected Services Address Phone Fax Patient Preferred [facility] Durable Medical Equipment [address] [phone] -- Contact: Imelda Respiratory Equipment : Concentrator [...] to follow and assist if needs arise Malini Lamb L.G.S.Riya., M.S.W. 03/08/24 * Rosalina Wagner M.S., O.T. - 03/07/2024 3:18 PM CDT 03/07/24 1518 Reason Therapy Missed Reason Therapy Missed Medical hold Patient out of room for imaging during multiple attempts due to concern for volvulus. Will initiateOT/PT plan of care on 03/08/24, or when patient is medically stable. Zunilda Wagner M.S., O.T. * Rashad Sal APRN, C.N.PMay, M.S.N. - 03/07/2024 12:34 PM CDT SUBJECTIVE Brief Summary: Mr. Hilario is a 44-year-old male patient with medical comorbidities consisting of Corapeake-Gastaut syndrome who was admitted to the medical [...] pulmonary secretions. Plan By Systems: NEURO # Ayaan-Gastaut Syndrome [...] mg PM, and Rufinamide 200 mg AM [id number] mg PM. Levels pending - Pain regimen: [...] MotherShelby - baseline cognitive status is approximately 68-grmiw-nrg. * Eloy Epps M.T.S. - 03/07/2024 9:30 AM CDT [facility] Spiritual Care Progress Note Patient: Say Hilario Age:44 y.o. Location: [id number] Reason(s) for encounter: Spiritual Care contact to introduce spiritual care service and assess for potential spiritual care needs. Spiritual Care contact for ongoing spiritual care. Spiritual Care contact per Family's request. Spiritual Care contact for denominational rites/sacramental encounter. Summary: I was able to meet with Say Hilario who was in bed, intubated and unable to engage. Familymembers were present together with a health care staff. The family shared that he was almost the same. The family narrated that he opened his eyes two days back and today. Prayer was shared for the continued healing of the patient. Spiritual Assessment Congregational Identification / Spiritual Practices: Say is a Restorationist Coping and support: Family members were present [...] current medical condition and life stage. Facilitated denominational/spiritual practices (prayer, blessing, sacred texts, denominational item) with theaim to reinforce patient's spiritual [...] requested. Chaplains can be contacted by paging [phone] ([place]) or [phone] (Christianity). * Ralph Stafford M.D. - 03/07/2024 8:55 AM CDT NEUROLOGY ICU CONSULTS PROGRESS NOTE HISTORY OF PRESENT ILLNESS: Mr. Say Hilario is a 44 y.o. 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 OBJECTIVE Temperature: [36.3 ??C-38 ??C] 38 ??C Heart Rate: [80-107] 100 Resp Rate: [10-27] 15 Arterial Line BP: (84-128)/(43-63) 87/48 FiO2 (%): [30 %-50 %] 30 % SpO2: [91 %-100 %] 93 % Pulse Rate: [79-107] 100 Physical Exam: General: Comatose , FOUR score [id number] HEENT: ET tube in place, dentition intact [...] y.o. 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 Delatorre. We appreciate the consult. Please page [phone] with any questions regarding our recommendations. Glen [...] hypercapnic respiratory failure, requiring mechanical ventilation #3 Corapeake-Gastaut Syndrome with complicated by refractory epilepsy on [...] admission: 44 year old male admitted to [facility] Medical ICU on 02/28/2024 for acute hypoxemicrespiratory secondary to community acquired pneumonia. 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 Jose De Jesus Dunn, Pharm.D., R.Ph. [phone] * Rufus Ba M.B.BMayS. - 03/07/2024 6:53 AM CDT SUBJECTIVE I [...] following. EEG changes consistent with underlying chronic Corapeake- Gastaut and medications. MRI unrevealing. Recommended baclofen [...] (Active) Placement Date/Time: 12/29/23 1309 Placed by: [facility] GI Tube Type: Gastrostomy-jejunostomy;Percutaneous endoscopic Low Profile? [...] 92 GI Function: Last BM Date: 03/05/24, [place] Stool Chart: Type 7: Watery, no solid pieces, Passing Flatus: Yes. Estimated Needs: Calories: 5184-0936 (MSJ Wwnee=8667 kcal) calories/day Method to Estimate Energy Needs: [...] about patient's nutritional care please contact pager [phone] on weekdays 07:30-16:00 or [phone] on weekends/holidays ([facility]). * Jose De Jesus Dunn, Pharm.D., R.Ph. - 03/06/2024 10:01 AM CDT Pharmacist Progress Note Reason for admission: 44 year old male admitted to [facility] Medical ICU on 02/28/2024 for acute hypoxemicrespiratory secondary to community acquired pneumonia. 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 Jose De Jesus Dunn, Pharm.D., R.Ph. [phone] * Danelle Contreras, R.N. - 03/06/2024 9:50 AM CDT [facility] Wound RN reconsulted to assess Say Hilario skin alterations. Wound assessment, pain, and Javier score noted in the flowsheet. No images were taken during this patient assessment. History: Per provider note, the patient was admitted to the hospital for acute hypoxemic respiratory failure secondary to community-acquired versus aspiration pneumonia. The patient's significant history includes cerebrovascular disease, Corapeake Gastaut Syndrome, chronic dysphagia with PEJ placement, and intellectual disability. Assessment: The patient was assessed in conjunction with the [facility] nurse and bedside nurse at bedside. Moisture [...] Cleansed (Comment) Wound Cleansed with Acetic acid [place] Protocol (Pre-procedure pause) Y *Primary Dressing Acetic acid (with hydrocortisone and nystatin creams applied prior to acetic acid dressing.) *Primary Dressing Frequency of Change 3x/day & PRN Primary Dressing Changed Changed Primary Dressing Status Intact *Secondary Dressing Foam;Textile (Sacral Mepilex border for buttock, Interdry AG for the groin folds) *Secondary Dressing Frequency of Change 3x/day & PRN Changed by Unit based nurse;Wound laborer pipeline Ongoing management Nursing;Wound/Ostomy Clinic Wound 03/12/23 Other [...] Cleansed (Comment) Wound Cleansed with Acetic acid [place] Protocol (Pre-procedure pause) Y *Primary Dressing Acetic [...] Changed by Unit based nurse Ongoing management Nursing;Wound/cherry grower Head to toe skin assessment completed and [...] no further concerns at this time. The [facility] RN will continue to see the patient, contact or reconsult for worsening wounds or new wounds. Electronically signed by: Danelle Contreras R.N. ([facility] student) 03/06/24 10:05 AM CDT * Ralph [...] 268 and 5810 (compared to 313 and >77000 respectively) Rufinamide: 11.6 I have reviewed the current medication list. OBJECTIVE Temperature: [36.6 ??C-37.1 ??C] 36.9 ??C Heart Rate: [88-105] 98 Resp Rate: [10-23] 12 Arterial Line BP: (84-126)/(42-63) 120/58 FiO2 (%): [30 %] 30 % SpO2: [89 %-100 %] 98 % Pulse Rate: [88-105] 98 Physical Exam: General: Intubated off sedation , FOUR score [id number] HEENT: ET tube in place Cardiac: Regular [...] y.o. male with medical comorbidities significant for Corapeake--Gastaut syndrome complicated by medically refractory epilepsy on [...] hypercapnic respiratory failure, requiring mechanical ventilation #3 Corapeake-Gastaut Syndrome with complicated by refractory epilepsy on [...] felbamate Patient seen and discussed with our cardiology clinical consultant Dr. Delatorre. We appreciate the consult. Please page [phone] with any questions regarding our recommendations. Glen [...] clinically. Remainder per Dr. Stafford. * Amrita Liz, KAASH, C.N.P., D.N.P. - 03/06/2024 7:49 AM CDT [...] pulmonary secretions. Plan By Systems: NEURO # Ayaan-Gastaut Syndrome [...] MotherShelby - baseline cognitive status is approximately 62-zujnr-anr. * Rufus Ba M.B.B.SMay - 03/06/2024 7:00 [...] 44-year-old male with medical history significant for Corapeake-Gastaut syndrome with recurrent seizures and cognitive delay [...] has been billed separately. * Wes Person M.B.B.S. - 03/05/2024 6:28 AM CDT SUBJECTIVE This [...] his baseline status. 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 - 03/04/2024 1:55 [...] Ayaan-Gastaut syndrome Medically refractory epilepsy Cognitive delay RECOMMENDATIONS: - continue to hold sedation - continue home antiseizure medications. Patient discussed with our cardiology clinical consultant Dr. Cohen. We appreciate the consult. Please page [phone] with any questions regarding our recommendations. Electronically signed by: Chelsea Spivey M.D. 03/04/24 1:57 PM CDT * Rosanna Joiner Pharm.D., R.Ph. - 03/04/2024 8:28 AM CDT Pharmacist Progress Note Reason for admission: 44 year old male admitted to [facility] Medical ICU on 02/28/2024 for acute hypoxemicrespiratory secondary to community acquired pneumonia. 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 Joanne Joiner, PharmMayD., R.Ph. [phone] * Wes Person M.B.B.S. 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 PLAN BY SYSTEMS: 1. FARM CONTRACTOR BUYER: We have resumed all his home medications, [...] which has been billed separately. * Basil Miranda APRN, C.N.P. - 03/04/2024 4:36 AM CDT SUBJECTIVE [...] Embolism And Thrombosis Of Left Femoral Vein ([facility]) Plan By Systems: NEURO # Ayaan-Gastaut Syndrome [...] ICU Level Cares - Family: MotherShelby * Gunjan Pickering, Pharm.D., R.Ph., [facility] - 03/03/2024 1:46 PM CDT Pharmacist Progress Note Reason for admission: 44 year old male admitted to [facility] Medical ICU on 02/28/2024 for acute hypoxemicrespiratory secondary to community acquired pneumonia. 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 Gunjan Pickering, Pharm.D., R.Ph., [facility]CP [phone] * Eloy Epps M.T.S. - 03/03/2024 10:00 AM CDT [facility] Spiritual Care Progress Note Patient: Say Hilario Age:44 y.o. Location: [id number] Reason(s) for encounter: Spiritual Care contact to introduce spiritual care service and assess for potential spiritual care needs. Spiritual Care contact for ongoing spiritual care. Spiritual Care contact per Family's request. Spiritual Care contact for denominational rites/sacramental encounter. Summary: I was able to [...] for continued prayer for Say. Spiritual Assessment Congregational Identification / Spiritual Practices: Say is a Restorationist Coping and support: Has family support Spiritual [...] current medical condition and life stage. Facilitated denominational/spiritual practices (prayer, blessing, sacred texts, denominational item) with theaim to reinforce patient's spiritual [...] requested. Chaplains can be contacted by paging [phone] ([place]) or [phone] (Christianity). * Wes Person M.B.B.SMay - 03/03/2024 7:01 [...] after initiation of therapeutic anticoagulation; improved #6 Corapeake-Gastaut syndrome with recurrent seizures and severe cognitive [...] including poor cough. PLAN BY SYSTEMS: 1. FARM CONTRACTOR BUYER: We have sent off antiepileptic levels although [...] which has been billed separately. * Basil Miranda APRN, C.N.P. - 03/03/2024 4:37 AM CDT SUBJECTIVE [...] Vein (HCC) Plan By Systems: NEURO # Corapeake-Gastaut Syndrome # Developmental Delay # History of [...] Cares - Family: Shelby Sapp * David Arreaga R.N., C.W.C.N. - 03/02/2024 10:59 AM CDT [facility] Wound RN consulted to assess Say [...] PEJ placement, and intellectual disability. Assessment: The [facility] nurse was asked to reassess a worsening PEGJ site secondary to increased sanguinous exudate after Eliquis was initiated. On assessment, the area appears more denuded, erythemic, and with the top layer of epidermal eroded. The [facility] nurse conversed with the family/primary nurse [...] Cleansed (Comment) *Primary Dressing Acetic acid (with [place]/Nystatin Cream) *Primary Dressing Frequency of Change 2x/day & PRN *Secondary Dressing Foam (Mepilex Up) *Secondary Dressing Frequency of Change 2x/day & PRN Changed by Unit based nurse Ongoing management Nursing;Wound/cherry grower Focused assessment completed DRESSING RECOMMENDATIONS: #1 Friction [...] new wounds. * Gunjan Pickering Pharm.D., R.Ph., [facility] - 03/02/2024 9:34 AM CDT Pharmacist Progress Note Reason for admission: 44 year old male admitted to [facility] Medical ICU on 02/28/2024 for acute hypoxemicrespiratory secondary to community acquired pneumonia. 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 Gunjan Pickering, PharmMayD., R.Ph., [facility] [phone] * Fela Mann RDN, LD - 03/02/2024 [...] displayed. GI Function: Last BM Date: 03/02/24, [place] Stool Chart: Type 7: Watery, no solid pieces, Passing Flatus: Yes. Received tap water enema at 0000 on 03/02. Abdomen noted to be soft and rounded per assessment rn on 03/02 at 0800. Imaging of abdomen on 03/01 showed Gas is visualized to the level of the distal descending colon, suggestive of a nonobstructive pattern. Estimated Needs: Calories: 3012-6673 calories/day Method to Estimate Energy Needs: kcal/kg [...] about patient's nutritional care please contact pager [phone] on weekdays 07:30-16:00 or [phone] on weekends/holidays ([facility]). * Wes Person M.B.B.S. - 03/02/2024 6:33 [...] tube after initiation of therapeutic anticoagulation #6 Corapeake-Gastaut syndrome with recurrent seizures and severe cognitive [...] as outlined below. PLAN BY SYSTEMS: 1. 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 At [...] of Vancomycin while [facility] speciation. [facility] [...] the right radial artery * Gregorio Comer R.RRoberth., L.R.T. - 03/01/2024 10:30 PM CDT Patient intubated for airway protection and secretion burden. 7.5 ETT secured at 22 cm at teeth. Bronchoscopy performed post intubation, BAL. * Gregorio Comer R.R.T., TezR.Pedro. - 03/01/2024 7:11 PM CDT Patient NT suctioned for thick bloody secretions through Nasal-Pharyngeal airway in the right nare.CCS Team 2 notified of bloody secretions * Gunjan Pickering, Pharm.D., R.Ph., [facility] - 03/01/2024 11:38 AM CDT Pharmacist Progress Note Reason for admission: 44 year old male admitted to [facility] Medical ICU on 02/28/2024 for acute hypoxemicrespiratory secondary to community acquired pneumonia. 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 Family will provide guidance on when to use rescue benzodiazepines vs [id number] of Keppra if needed. Cardiovascular: HD stable, [...] on speciation. Culture could represent contaminant. Gunjan Pickering, Pharm.D., R.Ph., [facility] [phone] * Malini Lamb, Radha.G.S.W., M.S.W. - 03/01/2024 10:29 AM CDT SUBJECTIVE Social Work met with the patient's parents to inform that all in home services have been reconnected. We discussed that the patient is on a CAC waiver and has not been getting the full benefits due to the difficulty in find RN's that provide in home cares. The patient's mother requested assistance in finding in home care home services to help fill the gap. Social [...] patient is on a CAC waiver through [facility], his parent's/guardians gave this social media sr strategy manager permission to contact [facility] to inquire about available services under the CAC waiver. Social Work called and left a message with the [facility] worker. The patient receives 3 care home visits per week through [facility]. Their services have been reconnected as has [facility] for patients oxygen needs and services through [facility] for patients TPN nutrition needs. ASSESSMENT / [...] will return to his parents home in [place], [place] at time of discharge. - The patient's family will provide transportation at time of discharge. - Social Work will continue to follow for supportive visits and discharge planning needs. 1.) Patient will return home with their previous nutrition services. Dialysis/Infusion - Admitted Since 02/28/2024 Service Provider Selected Services Address Phone Fax Patient Preferred [facility] Infusion and IV Therapy [id number], [facility] [phone] -- Contact: Tc They will continue to [...] Selected Services Address Phone Fax Patient Preferred [facility] [address] [facility] [address] [phone] -- Contact: Jesica What Care are they providing for the patient: Long Term visit 7 days a week for 1 hour. How do we reach your agency on a weekend/holiday? [phone] NURSING: - Complete documentation in the Discharge Navigator including Nursing Report Info and Facility/NextLevel of Care Info - Call report and arrange for the patient???s first visit. - Send required packet of dismissal information with patient, including After Visit Summary and advance directive. PRIMARY SERVICE: - Please provide a non-Assumption home health order for resumption of previous [...] Selected Services Address Phone Fax Patient Preferred [facility] Durable Medical Equipment [address] [phone] -- Contact: Imelda Respiratory Equipment : Concentrator [...] Emma Kim, M.S.W. 03/01/24 * Wes Person M.B.BMayS. - 03/01/2024 6:58 AM CDT SUBJECTIVE This [...] last replaced 12/28) #3 Acute DVT #4 Corapeake-Gastaut syndrome with recurrent seizures #5 Severe cognitive [...] male patient with medical comorbidities consisting of Corapeake-Gastaut syndrome, developmental delay, ALL treated with chemoradiation, [...] days - Follow up blood cultures with [facility] OBJECTIVE VITAL SIGNS I have reviewed the [...] of cares as outlined below. NEURO # Corapeake-Gastaut Syndrome # Developmental Delay # History of [...] Full Code Disposition: ICU Family: Mother, Shelby Bedoyafabien Gordillo, M.S.N, C.N.P, MODEL AND MOLD MAKER * Erasmo Lloyd APRN, Girish.Violet.Thierry., D.N.P. - 02/29/2024 11:24 AM CDT SUBJECTIVE [...] for today. Plan by Systems: Neuro: # Corapeake-Gastaut syndrome # Developmental delay (non verbal at baseline) # Recurrent seizures # History of remote lateral medullary stroke Plan Pain management: Tylenol, and Baclofen as needed. Holding Gilbert at this time. Home Medications to be [...] in the setting of hypotension GI: Diet: Fellmongery Worker Consult entered to consider restarting feeds Endo: [...] obtained at outside facility. I communicated with [facility] today 02/29/2024, they state that both blood [...] Family updated : yes * Gunjan Pickering, Tami.D., R.Ph., [facility] - 02/29/2024 11:04 AM CDT Pharmacist Progress Note Reason for admission: 44 year old male admitted to [facility] Medical ICU on 02/28/2024 for acute hypoxemicrespiratory secondary to community acquired pneumonia. 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 Gunjan Pickering Pharm.D., R.Ph., BCCCP [phone] * David Arreaga RJuli, C.W.C.N. - 02/29/2024 10:30 AM CDT [facility] Wound RN consulted to assess Say [...] The patient's significant history includes cerebrovascular disease, Corapeake Gastaut Syndrome, chronic dysphagia with PEJ placement, [...] Changed by Unit based nurse Ongoing management Nursing;Wound/cherry grower Wound 03/12/23 Other Moisture Associated Skin Damage [...] Primary Dressing Status Intact Changed by Wound laborer pipeline Ongoing management Nursing;Wound/cherry grower Head to toe skin assessment completed and [...] new wounds. * Gunjan Pickering, Pharm.D., R.Ph., [facility] - 02/29/2024 9:26 AM CDT Images from the original note were not included. Admission Medication History Note Adherence issues: No concerns Medication list source: Family member, Outside facility MAR, and Pharmacy or dispense records Prior to Admission Medications Med List Status: Pharmacy Complete Set By: Gunjan Pickering, Emmett, R.Ph., [facility] at 02/29/2024 9:26 AM Taking? Last Dose [...] times a day as needed (seizures). 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 Home meds: provider reviewed seizure regimen with mom, will try to review home meds ASSESSMENT and PLAN: Neuro: - resume boat captain felbamate, clobazam, lamotrigine, levetiracetam, epidiolex, rufinamide [...] BMI 28.85 kg/m?? . Medications reviewed Proph: [facility] Joanne Joiner, PharmElsy., R.Ph. * Wes Person M.B.BMayS. 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 RETROGRADE PYELOGRAM Left 04/05/2023 Procedure: RETROGRADE PYELOGRAM; Surgeon: Bi Rivera M.D.; Location: [facility] OR SINUS SURGERY 1987 URETEROSCOPY WITH LASER LITHOTRIPSY Left 04/05/2023 Procedure: URETEROSCOPY WITH LASER LITHOTRIPSY.; Surgeon: Bi Rivera M.D.; Location: [facility] OR SOCIAL HISTORY Social History Socioeconomic History [...] Maternal Grandmother Champ leon Depression Maternal Grandmother Champrosetta leon Stroke Paternal Grandfather Suleman aguirre Diabetes [...] size, borderline reduced systolic function, RVSP 34, chib-kd-hdwpwjor tricuspid valve regurgitation, tiny posterior pericardial effusion. [...] Acute Remission (HCC) #2 Seizure (HCC) #3 Corapeake Gastaut Syndrome (HCC) #4 Pneumonia #5 Dysphagia [...] hypoxemic respiratory failure secondary to aspiration pneumonia Corapeake-Gastaut syndrome Medically refractory epilepsy Cognitive delay The [...] will continue to follow along. Please page [phone] with additional questions. Addendum I re examined the patient around 12 30 p.m. and for p.m.. At 12:30 p.m. the patient opens his eyes to pain a kept them open for brief periods of time. Between 12 30 and 2 he kept his eyes opened intermittently and moved his head psqs-gb-nlvn as per family and bedside nurse report. He is also triggering the ventilator. He received his antiseizure medications around 2 and became more somnolent. At 4:00 p.m. the neurologic examination was similar to the morning, likely due to recent administrationof antiseizure medications. We will continue to monitor clinically. Continue to avoid sedation. Continue AEDs at home doses. Bedside nurse, family, and CCM cardiology clinical consultant updated. * Erasmo Lloyd APRN, C.N.P., [...] at age 12, seizures, who presents to [facility] Intensive Care unit via ambulance for further evaluation and management of acute respiratory failure in the setting of pneumonia (most likely community-acquired). Patient presented to [facility] Emergency Department the morning of 02/28/2024 [...] his presentation to the emergency department at [facility], patient was started on BiPAP for hypoxia. [...] to the medical intensive care unit at [facility] alert, to IVs in place,as well as [...] a 44-year-old male patient with history of Corapeake-Gastaut syndrome in the setting of community- acquired [...] needed, p Plan by Systems: Neuro: # Corapeake-Gastaut syndrome # Developmental delay (non verbal at baseline) # Recurrent seizures # History of remote lateral medullary stroke Plan Pain management: Tylenol, Gilbert and Baclofen as needed. Home Medications to [...] to release the adhesive from the skin. http://[email or web address]/products/[email or web address] * Gregorio Comer R.RRoberth., L.R.T. - 03/01/2024 10:55 PM CDTAssociated Order(s): Invasive Line Invasive Line Performed by: Gregorio Comer R.R.T., L.R.T. Authorized by: Wes Person M.B.BMaySMay [...] PHYLICIA participated or performed the procedure. The cardiology clinical consultant participated in or was aware of the procedure. Associated attestation - Tam Brower M.D. - 03/02/2024 5:23 AM CDT [facility] Procedure Attestations: Accredited PHYLICIA participated in the case, and the cardiology clinical consultant was present for the entire case. [...] ETT location: oral VL device: glide scope [place] scope blade size: 4 Tube size: 7.5 [...] PHYLICIA participated or performed the procedure. The cardiology clinical consultant participated in or was aware of the procedure. Associated attestation - Tam Brower M.D. - 03/02/2024 5:23 AM CDT MC Procedure Attestations: Accredited PHYLICIA participated in the case, and the cardiology clinical consultant was present for the entire case. documented in this encounter Consult Notes * Chiquita Grigsby M.D. - 03/11/2024 8:02 AM CDTAssociated Order(s): IP CONSULT TO NEUROLOGY SUBJECTIVE Reason for consult: LGS patient, on TPN post hemicolectomy, need recs for medication conversion Referring provider: Caridad Shin APRN, ONCOLOGY TRANSPLANT NETWORK MANAGER, MSN HPI: The patient is a 44-year-old gentleman with intractable epilepsy in the setting of Corapeake-Gastaut Syndrome on multiple antiseizure medications. He also [...] of intractable epilepsy in the setting of Corapeake Gastaut Syndrome. Epilepsy is consulted for assistance [...] Esophageal #8 Severe Sepsis With Septic Shock ([facility]) #9 Nephrolithiasis #10 Brain Stem Stroke Syndrome [...] Food Allergies: NKFA Chewing/Swallowing Issues: VFSS with OLIVING MACHINE OPERATOR last noted to be completed on 12/30/23 [...] kg) GI Function: Last BM Date: 03/08/24, [place] Stool Chart: Type 7: Watery, no solid [...] 03/10/24 1138 03/10/24 0803/10/2441803/07/24 1149 03/07/24 1113 03/06/24 0601 03/06/24 0556 [...] fluid changes. Estimated Needs: Total Calorie Needs: 9667-4076 calories/day (20-25 kcals/kg); 1504 HB Basal Method [...] the final TPN recommendations. Nutrition Support Service ([facility]) will continue to follow. Page [phone] with questions. * Aleks Hinkle M.D. - [...] as indicated from there. * Jacki Suh M.B.BMaySMay - 03/10/2024 10:56 AM CDTAssociated Order(s): General Surgery consult (hospital) - [facility] General Surgery consult (hospital) - [facility] Referring Provider: Tam Huang P.A.-C., M.S. Today's date: 03/10/2024 Reason for Consult: pneumoperitoneum History of Presenting Illness: Mr. Hilario is a 44 y.o. male with Ayaan Gastaut syndrome with recurrent seizures and cognitive [...] 1.28 Pertinent History Review: MEDICAL HISTORY - Corapeake-Gastaut -seizure disorder -cognitive delay (baseline of an 11-mwkri-mqu) -chronic constipation (requires enemas for bowel movements) -urinary retention (requires q.6 hour I/O cath) SURGICAL HISTORY No prior abdominal surgeries CURRENT MEDICATIONS No blood thinners or immunomodulators including steroids. ALLERGIES/CONTRAINDICATIONS No allergies to antibiotics FAMILY HISTORY Non-contributory SOCIAL HISTORY Lives with mother and father who are present at bedside. At baseline, interacts with his parents. He has a cognitive age of an 49-qqjhb-dhe. ROS: as mentioned in HPI, otherwise negative [...] M.P.H.; Location: [facility] EXCHANGE URETERAL STENT Left 04/05/2023 Procedure: EXCHANGE URETERAL STENT.; Surgeon: Bi Rivera M.D.; Location: [facility] OR OTHER SURGICAL HISTORY N/A Gastrocnemius [...] stomach. ASSESSMENT / PLAN #1 Pneumoperitoneum #2 Ayaan Gastaut #3 Aspiration pneumonia requiring mechanical ventilation #4 Chronic constipation #5 S/p gastrojejunostomy tube placement in December 2023 In summary, Say Hilario is a 44 y.o. male with Ayaan-Gastaut, seizure disorder, and cognitive delay who was [...] Hinkle, who was in agreement. Please page [phone] (HSS-B) with any questions or concerns. Laura Ortiz. * Rick Casillas M.D. - 03/10/2024 10:17 AM CDTAssociated Order(s): Nutrition support service consult ([facility]) SUBJECTIVE Nutrition support service consult ([facility]) Referring Provider: Tam Huang P.A.-C., M.S. [...] BMI (Calculated): 29.1 kg/m?? Total Calorie Needs: 6190-7397 (MSJ Basal 1430 kcals) calories/day Method to Estimate Energy Needs: [place] Jeor (Basal) Weight Used for Equation Calculations: [...] M.P.H.; Location: [facility] EXCHANGE URETERAL STENT Left 04/05/2023 Procedure: EXCHANGE URETERAL STENT.; Surgeon: Bi Rivera M.D.; Location: [facility] OR OTHER SURGICAL HISTORY N/A Gastrocnemius recession (eg, Maren procedure).. RETROGRADE PYELOGRAM Left 04/05/2023 Procedure: RETROGRADE PYELOGRAM; Surgeon: Bi Rivera M.D.; Location: [facility] OR SINUS SURGERY 1988 URETEROSCOPY WITH LASER LITHOTRIPSY Left 04/05/2023 Procedure: URETEROSCOPY WITH LASER LITHOTRIPSY.; Surgeon: Bi Rivera M.D.; Location: [facility] OR FAMILY HISTORY Family History Problem [...] perform thistest. Please call NSS pager at [phone] at [facility] or [phone] at [facility] with any additional questions. BILLING/CODING Total visit 55 minutes. * Lauren Palencia M.S., [facility]-OLIVING MACHINE OPERATOR - 03/09/2024 2:50 PM CDT Speech Language Pathology Communication/Cognitive Evaluation- Acute Care Session Type: Evaluation Length of session: 12 minutes SUBJECTIVE Referred By: [facility] Trauma and General Surgery History: Mr. Hilario is a 44 y.o. male who was admitted to [facility] on 02/28/2024 due to worseningsymptoms [...] has been further complicated by functional ileus. OLIVING MACHINE OPERATOR was consulted to assess consciousness with use of [facility] Coma Recovery Scale-Revised (CRS-R). Patient's family is [...] do so. Please do not hesitate tocontact OLIVING MACHINE OPERATOR with questions or concerns. 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 - 03/08/2024 1:58 PM CDT Physical [...] Remission (HCC) Seizure (HCC) Ayaan Gastaut Syndrome (HCC) Overgrowth Bacterial Small Bowel Pneumonia Dysphagia Aftercare Feeding Tube Cerebrovascular Disease Reflux Esophageal Severe Sepsis With Septic Shock ([facility]) Nephrolithiasis Weakness General Brain Stem Stroke Syndrome [...] Of Left Femoral Vein (HCC) Coma (HCC) Past Surgical History: Procedure Laterality Date CYSTOSCOPY INSERTION STENT URETER Left 02/22/2023 Procedure: CYSTOSCOPY INSERTION STENT URETER; Surgeon: Ermias Young M.D., M.P.H.; Location: [facility] EXCHANGE URETERAL STENT Left 04/05/2023 Procedure: EXCHANGE URETERAL STENT.; Surgeon: Bi Rivera M.D.; Location: [facility] OR OTHER SURGICAL HISTORY N/A Gastrocnemius recession (eg, Maren procedure).. RETROGRADE PYELOGRAM Left 04/05/2023 Procedure: RETROGRADE PYELOGRAM; Surgeon: Bi Rivera M.D.; Location: [facility] OR SINUS SURGERY 1987 URETEROSCOPY WITH LASER LITHOTRIPSY Left 04/05/2023 Procedure: URETEROSCOPY WITH LASER LITHOTRIPSY.; Surgeon: Bi Rivera M.D.; Location: [facility] OR History of Present Illness: Pt presenting with severe encephalopathy and hypoxemic and hypercapnic respiratory failure requiring mechanical ventilation Prior Function/Occupational Profile Lives With: Family, Parent(s) Receives Help From: Family ADL Assistance: Required assistance IADL/Homemaking Assistance: Required assistance Driving: Does not drive Prior Mobility/Functional Transfers Level of [place]: Needs assistance Gait Devices/Wheelchair Used: Manual wheelchair [...] Standardized Score: 16.59 Interpretation: Clinicians answer the [facility] Inpatient Short Form based on observed patient [...] Order(s): IP CONSULT TO NEUROLOGY Say Bowen Hilario 03/08/24 11:32 AM CDT Hospital length of [...] observation. We will follow sign off. Page [phone] with additional questions. Total time: 35 minutes [...] (02/22/2023), [place] Personal History, and Stroke ([facility]). Say Hilario has a past surgical history that includes Other Surgical History (N/A); CYSTOSCOPY INSERTION STENT URETER (Left, 02/22/2023); Sinus surgery (1987); Ureteroscopy with Laser Lithotripsy (Left, 04/05/2023); Exchange Ureteral Stent (Left, 04/05/2023); and Retrograde Pyelogram (Left, 04/05/2023). History of Present Illness: Say Hilario is a 44 y.o. male who was admitted to [facility] in [place] on 02/28/2024 for Acute Respiratory Failure With [...] discussed and coordination of care occurred with furnace stock inspector/Caregiver Present: Mom, Dad, Grandmother, Aunt Co-treat with [...] at or below 17 Clinicians answer the [facility] Inpatient Short Form based on observed patient [...] severeencephalopathy associated with severe cognitive delay and Ayaan-Gastaut syndrome with recurrent daily seizures. We now [...] Cohen M.D., Ph.D. CT CT Job ID: [id number] * Sis Swain M.S., SHAYY, ADELA - [...] about patient's nutritional care please contact pager [phone] on weekdays 07:30-16:00 or [phone] on weekends/holidays ([facility]). * Fela Mann RDN, LD - 03/03/2024 [...] 1.4 GI Function: Last BM Date: 03/02/24, [place] Stool Chart: Type 7: Watery, no solid pieces, Passing Flatus: Yes. Total of 8 BMs noted yesterday (03/02) that were all [place] stool type 7. Noted to havereceived lactulose yesterday Estimated Needs: Calories: 1913-0486 calories/day Method to Estimate Energy Needs: kcal/kg [...] about patient's nutritional care please contact pager [phone] on weekdays 07:30-16:00 or [phone] on weekends/holidays ([facility]). * Fritz Arteaga M.T.S. - 03/02/2024 12:50 PM CDTAssociated Order(s): IP CONSULT TO SHAPE BRICK MOLDER VICE PRESIDENT CORPORATE COMMUNICATIONS [facility] Spiritual Care Consult Note Patient: Say Hilario Age:44 y.o. Location: [id number] Reason(s) for encounter: Spiritual Care contact to introduce spiritual care service and assess for potential spiritual care needs. Responded to Spiritual Care Consult. Spiritual Care contact for denominational rites/sacramental encounter. Summary: I was able to meet with Say Hilario and his family. Say was unable to engage and his mom shared that he had pneumonia and much more better than before. Spiritual Assessment Congregational Identification / Spiritual Practices: Say is a Restorationist. The sacrament of Anointing of the sick [...] current medical condition and life stage. Facilitated denominational/spiritual practices (prayer, blessing, sacred texts, denominational item) with theaim to reinforce patient's spiritual [...] requested. Chaplains can be contacted by paging [phone] ([place]) or [phone] (Christianity). * Fela Mann RDN, LD - 03/01/2024 8:23 AM CDTAssociated Order(s): IP CONSULT TO DIETITIAN; IP CONSULT TO DIETITIAN Clinical Nutrition: Initial Assessment Clinical Nutrition was requested to evaluate patient for tube feeding order consult SUBJECTIVE Mr. Hilario is a 44 y.o. male admitted for hypoxic and hypercapnic respiratory failure in the setting of community-acquired pneumonia. PMH: Corapeake-Gastaut syndrome, developmental delay, ALL treated with chemoradiation, [...] been minimal to none. Patient does use [facility] as DME for tube feed supplies. He may require updated orders for increased cartons per day if intake remains minimal to none. Food Allergies: NKFA Chewing/Swallowing Issues: VFSS with OLIVING MACHINE OPERATOR last noted to be completed on 12/30/23 [...] rate (ml/hr): 40 mL/hr; Daily goal v... ([facility] NTR PROVIDER TO INITIATE, DIETITIAN TO MANAGE TUBE FEEDS) Continuous Question Answer Comment Tube Feeding Formula: Peptamen 1.5 (RTH) Feeding route: PEG/Gastrostomy Feed options: Continuous Starting rate (ml/hr): 20 mL/hr Rate advancement (ml/hrs): 10 mL/hr every 12 hours Continuous goal rate (ml/hr): 40 mL/hr Daily goal volume (mL): 960 02/29/24 1833 02/29/24 1805 No oral nutrition, tube feeding allowed ([facility] NTR PROVIDER TO INITIATE, DIETITIAN TOMANAGE [...] 68 kg Estimated Needs: Total Calorie Needs: 1872-6595 calories/day Method to Estimate Energy Needs: kcal/kg (22-25 kcal/kg) Weight Used for Equation Calculations: 66.9 kg Total Protein Needs: 80 - 100 grams/day (Method to Estimate Protein Needs (g/kg): 1.2 - 1.5 gm/kg) Weight Used to Calculate Protein Needs (Kg): 66.9 kg Nutrition Diagnosis: Inadequate oral intake related to dysphagia as evidenced by long term care phlebotomist dependence on supplemental enteral feeds to meet [...] about patient's nutritional care please contact pager [phone] on weekdays 07:30-16:00 or [phone] on weekends/holidays ([facility]). * Malini Lamb L.G.S.W., M.S.W. - 02/29/2024 1:34 PM CDTAssociated Order(s): IP CONSULT TO CARE MANAGEMENT SUBJECTIVE Social Work met with the family to address the care management consult for reconnection of both HHCand oxygen services. The patient was lying in bed sleeping, parents Shelby and Andrés were bedside. Social Work introduced self and explained both the role of an inpatient social media sr strategy manager and purpose of the visit. Both Shelby and Andrés acknowledged understanding and were agreeable to meet. Shelby confirmed that patient's oxygen supplies are provided by [facility], HHC services are provided by [facility], as well as nutrition supplies are provided by [facility]. She also shared that the patient is on a [facility] waiver through [facility]. They are being provided minimal services through [facility] waiver at this time. The patient's parents inquired if this racebook writer had other resources as they would like more in home supports. They gave social media sr strategy manager permission to contact [facility] and talkwith the [facility] social media sr strategy manager to get information on what services the [facility] waiver covers. OBJECTIVE Say Hilario is a 44 year old male who resides at home with his parents. The patient is in need of full cares. His mother, Shelby, informed that when Say is feeling better, his baseline abilities are that of an 18 month old. The patient's parents are his full-time caregivers. The patient is on a CAC waiver through [facility], his parent's/guardians gave this social media sr strategy manager permission to contact [facility] to inquire about available services under the [...] discharged back to his parent's home in [place], [place] - The patient's parents will provide [...] (HCC) 02/22/2023 [place] Personal History Stroke ([facility]) brain stem stroke Shift Summary: 193: Patient remains intubated with a #7.5 ETT at 22 cm at the teeth and mechanically ventilated on SIMV 15, Vt 330 mL, PEEP 15, pressure support 14 and FiO2 30%. 2300: Patient assessed and ventilator check complete. 0300: Patient assessed and ventilator check complete. Airway: ETT Standard ETT (Active) Placement Date/Time: 03/01/24 (c) 6423 Mask Ventilation: Easy mask Technique: Video laryngoscopy [...] cm H20-15 cm H20] 15 cm H20 NV SUP: [14 cm H20-15 cm H20] 14 [...] Standard ETT (Active) Placement Date/Time: 03/01/24 (c) 7477 Mask Ventilation: Easy mask Technique: Video laryngoscopy [...] Wetzel 03/13/24 4:21 PM CDT * Leah Jacome, RMayN. - 03/13/2024 9:11 AM CDT Feeding Tube Site Care Indication for Consult Tube site check Skin breakdown Tube Type and size: CALISTA Low Profile Transgastric jejunal (Clinical Research Associate YUPIQ (EnglishUp)) Size: 22 [place] Citizen, 3.5 cm length Connector Type: Small bore (ENFit) Date of tube replacement: 12/28 Replaced by: GI Skin integrity at tube site: The skin is less red today compared to when I saw it last Wednesday. The open area from the 3 to 6 o'clock area also looks improved and the tissue looks like it is healing. The wound laborer pipeline saw the patient last Wednesday and has [...] Site care to be completed per Wound cherry grower recommendations. Do not rotate tube. * Eris [...] Standard ETT (Active) Placement Date/Time: 03/01/24 c) 4069 Mask Ventilation: Easy mask Technique: Video laryngoscopy [...] AM CDT * Amilcar Del Valle L.R.T., [facility] - 03/12/2024 3:59 PM CDT Patient is [...] Standard ETT (Active) Placement Date/Time: 03/01/24 (c) 3329 Mask Ventilation: Easy mask Technique: Video laryngoscopy [...] 25 BASE EXC ART 0 Pat Newby, LINUX UNIX ENGINEER-ACCS 03/12/24 3:59 PM CDT * Eris Phillips [...] Standard ETT (Active) Placement Date/Time: 03/01/24 (c) 5156 Mask Ventilation: Easy mask Technique: Video laryngoscopy [...] Left Radial (Active) Placement Date/Time: 03/10/24 (c) 1432 Procedural Pause Completed: Yes Catheter Time Out Checklist Completed: Yes Hand Hygiene Performed Prior to Insertion: Yes Site Prep: Chlorhexidine (Preferred) Sterile Barriers Used : Cap;Gloves;Gown;Large d... Recent ABG: Recent Labs 03/12/24 0245 PO2 ART 79 L PCO2 ART 42 PH ART 7.38 HCO3 ART 25 BASE EXC ART 0 Eris Phillips R.R.T., TezR.TMay 03/12/24 4:11 AM CDT * Beatriz Oliveira [...] Standard ETT (Active) Placement Date/Time: 03/01/24 (c) 7487 Mask Ventilation: Easy mask Technique: Video laryngoscopy [...] EXC ART mmol/L 3 Electronically signed by: Beatirz Oliveira RMayR.TMay 03/11/24 2:36 AM CDT * Melvin Langston [...] Standard ETT (Active) Placement Date/Time: 03/01/24 (c) 3118 Mask Ventilation: Easy mask Technique: Video laryngoscopy [...] 03/10/24 5:37 PM CDT * Leah Jacome, RMayN. - 03/10/2024 10:47 AM CDT Feeding Tube Site Care Indication for Consult: Venting tube site check Skin breakdown Tube Type and size: CALISTA Low Profile Transgastric jejunal (Clinical Research Associate YUPIQ (EnglishUp)) Size: 22 [place] Citizen, 3.5 cm length Connector Type: Small bore [...] of thesite and they are uploaded into Toptal. She will requests the Wound cherry grower reevaluate this site for recommendations of cares [...] Site care to be completed per Wound cherry grower recommendations. Secure extension tubing to abdomen with [...] Noted intake and output. * Jess Salazar R.R.Viktor, L.R.T. - 03/10/2024 6:02 AM CDT Alert Information: Plan of Care: Pt started the shift on CPAP+5 PS+5 and 30%. At 0130 pt switched to ASV 100% P+5 and 30% due to pt going apneic. Pt continues orally intubated and mechanically ventilated. Principal Problem Acute Respiratory Failure With Hypoxia (HCC) ETT Standard ETT (Active) Placement Date/Time: 03/01/24 (c) 0563 Mask Ventilation: Easy mask Technique: Video laryngoscopy [...] Skin integrity checked: yes * Iron Salmeron RMayN. - 03/09/2024 5:52 PM CDT Shift Goals: [...] Standard ETT (Active) Placement Date/Time: 03/01/24 (c) 5365 Mask Ventilation: Easy mask Technique: Video laryngoscopy [...] 12:22 AM CDT * Carole Ellis R.N., AyeshaS.R.N. - 03/08/2024 2:16 PM CDT Feeding Tube Site Care Indication for Consult: Feeding tube connector/adaptor Tube type and size: FAROOQ low profile Transgastric jejunal (Clinical Research Associate YUPIQ (EnglishUp)) Size: 22 [place] Citizen, 3.5 stoma length Connector Type: Small bore (ENFit) Date of tube placement: Replaced 12/30/2023 Placed by: GI Consulted with question of if tube could be put to LIS. Provided room RN with required adaptor to be placed on the tube. Order number [id number] ADAPTER ENFIT TO [facility] PRP Tube and tube site were not [...] Standard ETT (Active) Placement Date/Time: 03/01/24 (c) 5429 Mask Ventilation: Easy mask Technique: Video laryngoscopy [...] Right Radial (Active) Placement Date/Time: 03/01/24 (c) 4229 Procedural Pause Completed: Yes Catheter Time Out [...] Standard ETT (Active) Placement Date/Time: 03/01/24 (c) 2 Mask Ventilation: Easy mask Technique: Video laryngoscopy [...] Right Radial (Active) Placement Date/Time: 03/01/24 (c) 3311 Procedural Pause Completed: Yes Catheter Time Out [...] had been moved to right by nursing. [place] fast was noted to be was pushing on the lip, and moved to position above the lip. Patient placed on Spont 5/5 30%. This white/clear secretions were suctioned with lavage. 1100: [place] fast was changed, bleeding noted on lip. Vent check completed no changes made. 1545: Patient transported to CT and back without complications via T-1 ventilator. Vent check completed. Arterial line water bag changed. Plan of Care: Continue to monitor respiratory status while in the ICU, maintain airway patency, and provide mechanical ventilation, RT to maintain, manage and wean ventilation and oxygenation per protocols and ABGvalues, and ETT repositioned Q4 hours Airway: ETT Standard ETT (Active) Placement Date/Time: 03/01/24 (c) 1812 Mask Ventilation: Easy mask Technique: Video laryngoscopy [...] Right Radial (Active) Placement Date/Time: 03/01/24 (c) 3163 Procedural Pause Completed: Yes Catheter Time Out Checklist Completed: Yes Hand Hygiene Performed Prior to Insertion: Yes Site Prep: Chlorhexidine (Preferred) Sterile Barriers Used : Cap;Gloves;Gown;Large d... Heidi Rock R.R.T., L.R.T. 03/07/24 3:18 PM CDT * Carole Ellis R.N., CMayMMayS.R.N. - 03/07/2024 1:02 PM CDT Feeding Tube Site Care Indication for Consult: Feeding tube site check Venting tube site check Tube type and size: FAROOQ low profile Transgastric jejunal (Clinical Research Associate YUPIQ (EnglishUp)) Size: 22 [place] Citizen, 3.5 stoma length Connector Type: Small bore [...] shift. Electronically signed by: Catherine Eaton R.N., NIKKO 03/06/24 6:03 PM CDT * Abdon Elliott, [...] Therapy provided patient transport to and from [facility] using ASV Mode 90%, PEEP 5 30%, [...] Standard ETT (Active) Placement Date/Time: 03/01/24 (c) 1801 Mask Ventilation: Easy mask Technique: Video laryngoscopy [...] Right Radial (Active) Placement Date/Time: 03/01/24 (c) 9538 Procedural Pause Completed: Yes Catheter Time Out [...] L.R.T. 03/06/24 * Ermias May R.R.T., L.R.T., [facility] - 03/06/2024 5:38 AM CDT Patient is [...] Stroke (HCC) brain stem stroke Shift Summary: 07: Patient assessed, vent and art line checked. Patient seen on ASV, no settings changes 2339: Vent checked, no settings changes 032: Vent [...] Right Radial (Active) Placement Date/Time: 03/01/24 (c) 4129 Procedural Pause Completed: Yes Catheter Time Out Checklist Completed: Yes Hand Hygiene Performed Prior to Insertion: Yes Site Prep: Chlorhexidine (Preferred) Sterile Barriers Used : Cap;Gloves;Gown;Large d... Recent ABG: No results for input(s): PO2 ART, PCO2 ART, PH ART, HCO3 ART, BASE EXC ART in the last 24hours. Ermias May R.R.T., L.R.T., LINUX UNIX ENGINEER-ACCS 03/06/24 5:38 AM CDT * Abdon Elliott R.R.T., L.R.T. - 03/05/2024 3:38 PM CDT [...] Standard ETT (Active) Placement Date/Time: 03/01/24 (c) 9896 Mask Ventilation: Easy mask Technique: Video laryngoscopy [...] Right Radial (Active) Placement Date/Time: 03/01/24 (c) 3106 Procedural Pause Completed: Yes Catheter Time Out [...] (HCC) Electronically signed by: Abdon Elliott R.R.T., Pat 03/05/24 * Ermias May R.R.T., TezRMayTMay, LINUX UNIX ENGINEER-ACCS - 03/05/2024 4:35 AM CDT Patient is [...] Standard ETT (Active) Placement Date/Time: 03/01/24 (c) 1122 Mask Ventilation: Easy mask Technique: Video laryngoscopy [...] Right Radial (Active) Placement Date/Time: 03/01/24 (c) 8393 Procedural Pause Completed: Yes Catheter Time Out Checklist Completed: Yes Hand Hygiene Performed Prior to Insertion: Yes Site Prep: Chlorhexidine (Preferred) Sterile Barriers Used : Cap;Gloves;Gown;Large d... Recent ABG: No results for input(s): PO2 ART, PCO2 ART, PH ART, HCO3 ART, BASE EXC ART in the last 24hours. Ermias May R.R.T., LMayR.TMay, LINUX UNIX ENGINEER-ACCS 03/05/24 4:35 AM CDTf * Abdon Elliott R.R.T., L.R.T. - 03/04/2024 [...] Standard ETT (Active) Placement Date/Time: 03/01/24 (c) 9355 Mask Ventilation: Easy mask Technique: Video laryngoscopy ETT Type: Standard ETT Tube Size: 7.5 mm Cuffed: Yes Location: Oral Airway secured at (Initial measurement) : 22 Grade View: Grade 2A Airway Ins... Oxygen Therapy: $Delivery Method: Ventilator FiO2 (%): 30 % Vent mode: Ventilator Mode: ASV FiO2 (%): [25 %-30 %] 30 % PEEP (cmH2O): [5 cm H20] 5 cm H20 NV SUP: [15 cm H20] 15 cm H20 Mean Airway Pressure: [6.7 cm H2O-7.7 cm H2O] 7.7 cm H2O Plateau pressure: Plateau (Pause) Airway Pressure: 17 cm H2O Compliance: Compliance (mL/cm H2O): 21.1 mL/cm H2O FiO2 (%): 30 % PEEP (cmH2O): 5 cm H20 Hemodynamic monitoring Arterial Line 03/01/24 Right Radial (Active) Placement Date/Time: 03/01/24 (c) 0225 Procedural Pause Completed: Yes Catheter Time Out [...] L.R.T. 03/04/24 * Ermias May R.R.T., L.R.T., LINUX UNIX ENGINEER-[facility] - 03/04/2024 6:28 AM CDT Patient is [...] Right Radial (Active) Placement Date/Time: 03/01/24 (c) 4597 Procedural Pause Completed: Yes Catheter Time Out Checklist Completed: Yes Hand Hygiene Performed Prior to Insertion: Yes Site Prep: Chlorhexidine (Preferred) Sterile Barriers Used : Cap;Gloves;Gown;Large d... Recent ABG: No results for input(s): PO2 ART, PCO2 ART, PH ART, HCO3 ART, BASE EXC ART in the last 24hours. Ermias May R.R.T., L.R.T., LINUX UNIX ENGINEER-ACCS 03/04/24 6:28 AM CDTf * Paula Cruz R.R.T., LMayRRoberth. - 03/03/2024 9:12 AM CDT Patient is [...] Standard ETT (Active) Placement Date/Time: 03/01/24 (c) 0 Mask Ventilation: Easy mask Technique: Video laryngoscopy [...] Right Radial (Active) Placement Date/Time: 03/01/24 (c) 0774 Procedural Pause Completed: Yes Catheter Time Out Checklist Completed: Yes Hand Hygiene Performed Prior to Insertion: Yes Site Prep: Chlorhexidine (Preferred) Sterile Barriers Used : Cap;Gloves;Gown;Large d... Recent ABG: Recent Labs 03/02/24 1715 PO2 ART 88 PCO2 ART 41 PH ART 7.40 HCO3 ART 25 BASE EXC ART 0 Paula Cruz R.R.T., L.R.T. 03/03/24 9:13 AM CDT * Anthony Montilla R.R.T., Pat, LINUX UNIX ENGINEER-ACCS - 03/03/2024 4:53 AM CDT Patient is [...] Standard ETT (Active) Placement Date/Time: 03/01/24 (c) 0841 Mask Ventilation: Easy mask Technique: Video laryngoscopy [...] Right Radial (Active) Placement Date/Time: 03/01/24 (c) 5564 Procedural Pause Completed: Yes Catheter Time Out Checklist Completed: Yes Hand Hygiene Performed Prior to Insertion: Yes Site Prep: Chlorhexidine (Preferred) Sterile Barriers Used : Cap;Gloves;Gown;Large d... Recent ABG: Recent Labs 03/02/24 1715 PO2 ART 88 PCO2 ART 41 PH ART 7.40 HCO3 ART 25 BASE EXC ART 0 Anthony Montilla R.R.T., TezRMayTMay, LINUX UNIX ENGINEER-ACCS 03/03/24 4:53 AM CDT * Teagan Beverly R.N., CCRN [...] stool after. Family at bedside throughout day, blender laborer visited at bedside. Problem: RESPIRATORY - ADULT Goal: Achieves optimal ventilation and oxygenation Outcome: Progressing; Improvement in secretion burden noted. Pt still continues to have a small amount of thick waters/blood-tinged secretions w/ ETT suctioning. Electronically signed by: Teagan Beverly R.N., CCRN 03/02/24 3:50 PM CDT * Paula Cruz [...] Standard ETT (Active) Placement Date/Time: 03/01/24 (c) 8653 Mask Ventilation: Easy mask Technique: Video laryngoscopy [...] Right Radial (Active) Placement Date/Time: 03/01/24 (c) 8109 Procedural Pause Completed: Yes Catheter Time Out Checklist Completed: Yes Hand Hygiene Performed Prior to Insertion: Yes Site Prep: Chlorhexidine (Preferred) Sterile Barriers Used : Cap;Gloves;Gown;Large d... Recent ABG: Recent Labs 03/02/24 0346 PO2 ART 127 H PCO2 ART 36 PH ART 7.47 H HCO3 ART 26 BASE EXC ART 2 Paula Curz R.R.T., L.R.T. 03/02/24 10:06 AM CDT * Zayda Nielson RJuli - 03/02/2024 5:20 AM CDT Problem: KNOWLEDGE [...] unable to follow commands. Patient was intubated [id number] (03/01), and placed on a propofol drip [...] given at 2330. * Gregorio Comer R.R.T., L.R.TMay - 03/02/2024 2:37 AM CDT Alert Information: [...] (mL/cm H2O): 20.5 mL/cm H2O Recent Labs 03/01/24 2308 PO2 ART 73 L PCO2 ART 38 PH ART 7.43 * [place]Teagan Wagner, RMayN., CCRN - 03/01/2024 5:59 PM CDT [...] bag and mask at bedside. Shift Summary: 07: patient assessed, course breath sounds on aerosal mask 28% 5L, very hard to arouse. Talked with service about getting chest xray and abg, both came back. 1015: Hand held percussion started to blasting helper in secretion clearance, performed for 15 [...] 4:03 PM CDT * Carole Ellis R.N., Francis.S.R.N. - 03/01/2024 12:49 PM CDT Feeding Tube Site Care Indication for Consult: Feeding tube site check Leaking tube Tube Type and size: FAROOQ low profile Transgastric jejunal (Clinical Research Associate YUPIQ (EnglishUp)) Size: 22 [place] Citizen, 3.5 stoma length Connector Type: Small bore [...] up with GI. * Ellie Coello R.R.T., C.R.TMay, L.R.T. - 03/01/2024 6:05 AM CDT Patient [...] Rate (L/min): 5 L/min Ellie Coello R.R.T., C.R.T., L.R.T. 03/01/24 6:05 AM CDT * Zayda [...] infection during hospitalization Outcome: Progressing * Abdon Elliott, R.R.T., L.R.T. - 02/29/2024 4:50 PM CDT [...] (HCC) Electronically signed by: Abdon Elliott R.R.T., L.RMayTMay 02/29/24 4:50 PM CDT * Ellie Coello R.R.T., C.R.TMay, L.R.T. - 02/29/2024 4:56 AM CDT Patient [...] airway Size (mm): 6.5 Placed by:Paula Cruz LINUX UNIX ENGINEER Oxygen Therapy: $Delivery Method: Aerosol mask FiO2 (%): 35 % Flow Rate (L/min): 8 L/min Paula Cruz R.R.T., L.R.T. 02/28/24 4:26 PM CDT documented in this encounter OR Notes * Op Note - Pascual Solorzano M.D. - 03/11/2024 2:50 PM CDT Pre-op Diagnosis Pneumoperitoneum Post-op Diagnosis Pneumoperitoneum Family Law Attorney A journeyman operator assistant actively participated and was necessary for one [...] placed over the ileocolonic anastomosis. A 19 [place] Citizen TAMARA drain was placed in the infra hepatic space at the gallbladder fossa. This came out the right abdomen. Another 19 [place] TAMARA drain was placed in the right [...] to close the skin over a 19 [place] Citizen TAMARA drain which came out the left [...] CDT Pre-op Diagnosis None Post-op Diagnosis None Family Law Attorney A journeyman operator assistant actively participated and was necessary for one [...] distal ileum and colon were divided using [id number] mm purple EndoGIA staple loads. The mesentery [...] in a critical state. Wound class IV. Yusra Ortiz * Brief Op Note - Lauren Hernandez [...] 44 y.o. 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 - 03/02/2024 8:33 AM CDT PROVIDER [...] Provider documentation: H&P by Erasmo Lloyd APRN, C.N.P., D.N.P. at 02/28/2024 # Shock- Currently [...] 44 y.o. 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 - 03/02/2024 8:21 AM CDT PROVIDER RESPONSE TEXT: To clarify, the appropriate diagnosis supported by the clinical indicators: Anemia is other chronic disease, QUERY TEXT: Clarification DOCUMENTATION CLARIFICATION REQUEST Please clarify/specify the appropriate diagnosis supported in the clinical indicators below. Clinical Indicators/Risk Factors/Treatment: Date of admission: 02/28/2024 Clinical indicators: H&P by Erasmo Lloyd APRN, C.N.Bisi, D.N.P. at 02/28/2024 44 y.o. male patient with history of Corape[place]-Gastaut syndrome, developmental delay, ALL treated with chemoradiation, hx of lateral medullary stroke at age 12, seizures, who presents with acute respiratory failure in the setting of pneumonia (most likely community-acquired). Labs: 12/29/2023 Hgb 11.1 02/02/2024 Hgb 12.5 02/28/2024 Hgb 12.0 02/29/2024 Hgb 10.6 03/01/2024 Hgb 10.8 03/01/2024 Hgb 9.9 03/02/2024 Hgb 8.9 Provider documentation: Progress Notes by Gardenia Gordillo APRN, C.N.Bisi, M.S.N. at 03/01/2024 # Anemia Treatment: Monitoring [...] 44 y.o. 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 Intensive Care unit via ambulance for further evaluation and management of acute respiratory failure in the setting of pneumonia. Patient presented to [facility] Emergency Department the morning of 02/28/2024 [...] his presentation to the emergency department at [place], patient was started on BiPAP for hypoxia. [...] to the medical intensive care unit at [facility] alert, two IVs in place, as well [...] (ICU) status Respiratory Care Routine respiratory use ewwt-gqwroecyr-dh sk reminder at 8am and 8pm until discontinued starting 02/28/2024 Adult Oxygen Therapy Continuous (RT) Respiratory Care Routine respiratory use qsvy-iqaeysyof-an sk reminder at 8am and 8pm until [...] B/P Timed 03/11/2024 2:06 PM CDT THROMBOELASTOGRAPH, KAOLIN, B Timed 03/11/2024 2:05 PM CDT TRANSFUSE FRESH FROZEN PLASMA Routine 03/11/2024 1:57 [...] MECHANICAL VENTILATOR Routine 03/10/2024 3:00 PM CDT LAPAROSCOPIC EXPLORATION - DIAGNOSTIC 03/10/2024 [...] INVASIVE CATHETER Routine 03/01/2024 10:55 PM CDT NV BRONCHOSCOPY W ALVEOLAR LAVAGE Routine 03/01/2024 10:30 [...] CDT Acute Respiratory Failure With Hypoxia (HCC) NV INTUB W ETT Routine 03/01/2024 10:00 PM [...] 02/29/2024 12:22 PM CDT RESPIRATORY PANEL, PCR, MARKETING SUPPORT ASSISTANT Routine 02/29/2024 9:12 AM CDT MRSA/STAPHYLOCOCCUS [...] APRN, C.N.P., D.N.P. LAB BLOOD NON ADD-ON [facility] [address] [place] [address], [facility] STMA [facility] [address] [place] [address] * (ABNORMAL) Blood Gas with Coox, Arterial [...] APRN, C.N.P., D.N.P. LAB BLOOD NON ADD-ON [facility] [address] [place] [address], [facility] STMA [facility] [address] [place] [address] * Staph aureus / MRSA, Nasal, PCR (03/13/2024 9:28 AM CDT) Staphylococcus aureus, PCR Negative Negative 03/13/2024 11:51 AM CDT DTL MRSA, PCR Negative Negative 03/13/2024 11:51 AM CDT DTL Swab (Nares) 03/13/2024 9:28 AM CDT 03/13/2024 10:12 AM CDT Alesha Shi APRN, C.N.P., D.N.P. LAB MICROBIOLOGY - GENERAL ORDERABLES Performing Organization Address City/[facility] Co de Phone Number [facility] [address] DTL [facility] [address] [place] [address] * Patient Status (03/13/2024 9:28 AM CDT) O2 Flow 30.0 L/min 03/13/2024 9:31 AM CDT STMA Device Vent 03/13/2024 9:31 AM CDT STMA Spont. breaths/min 14 03/13/2024 9:31 AM CDT STMA Blood 03/13/2024 9:28 AM CDT 03/13/2024 9:31 AM CDT Xiao Wheeler APRN, C.N.P., D.N.P. LAB BLOOD NON ADD-ON [facility] [address] STMA [facility] [address] [place] [address] * (ABNORMAL) Blood Gas with Coox, Venous [...] APRN, C.N.P., D.N.P. LAB BLOOD NON ADD-ON [facility] [address] [place] [address], [facility] [address] [place] [address] * Patient Status (03/13/2024 9:00 AM CDT) FIO2 0.30 0.21=AIR 03/13/2024 9:0 4 AM CDT STMA Device Vent 03/13/2024 9:0 4 AM CDT STMA Blood 03/13/2024 9:00 AM CDT 03/13/2024 9:04 AM CDT Girish Acevedo APRN.N.P., D.N.P. LAB BLOOD NON ADD-ON [facility] [address] [place] [address], [facility] STMA [facility] [address] [place] [address] * (ABNORMAL) Blood Gas with Coox, Arterial (03/13/2024 9:00 AM CDT) pO2 131(H) 83 - 108 mm Hg [...] Acevedo APRN.N.P., D.N.P. LAB BLOOD NON ADD-ON [facility] [address] [place] [address] * Lactate (03/13/2024 8:50 AM CDT) Lactate, P 0.6 0.5 - 2.2 mmol/L 03/13/2024 9:07 AM CDT [facility] (Blood, Venous) 03/13/2024 8:50 AM CDT 03/13/2024 8:54 AM CDT Girish Acevedo APRN.N.P., D.N.P. LAB BLOOD NON ADD-ON Performing Organization Address City/[facility] Co de Phone Number [facility] [address] [place] [address] * Patient Status (03/13/2024 8:37 AM CDT) Pathologist [facility] FIO2 0.30 0.21=AIR 03/13/2024 8:4 0 AM CDT [facility] Device Vent 03/13/2024 8:4 0 AM CDT [facility] Blood 03/13/2024 8:37 AM CDT 03/13/2024 8:40 AM CDT Alesha Shi APRN, Girish.N.P., D.N.P. LAB BLOOD NON ADD-ON [facility] [address] [place] [address] * (ABNORMAL) Blood Gas with Coox, Venous [...] APRN, C.N.P., D.N.P. LAB BLOOD NON ADD-ON [facility] [address] [place] [address], [facility] [address] [place] [address] * Glucose, POCT (03/13/2024 7:39 AM CDT) [facility] Glucose, POCT, B 118 70 - 140 mg/dL 03/13/2024 7:43 AM CDT PCLX Site ARTLINE 03/13/2024 7:43 AM CDT PCLX Last Intake TPN 03/13/2024 7:43 AM CDT PCLX Blood 03/13/2024 7:39 AM CDT 03/13/2024 7:43 AM CDT Unknown Provider LAB POCT ORDERABLES- MANUAL POC [facility] [address] [place] [address], [place] PCLX [facility] [place] POC [address] [place] [address] * DX Chest Portable 1 View (03/13/2024 [...] This test has been modified from the regional director of finance's instructions. Its performance characteristics were determined by [facility] in a manner consistent with CLIA requirements. [...] LAB BLOOD NON ADD-ON Performing Organization Address City/[facility]/ZIP Co de Phone Number [facility] 200 [place], [place] [id number] [place] [address] 200 [place] [address] * (ABNORMAL) Prothrombin Time (PT) (03/13/2024 4:35 AM CDT) Prothrombin Time, P 15.0(H) 9.4 - 12.5 sec 03/13/2024 5:10 AM CDT DT INR 1.4 0.9 - 1.1 03/13/2024 5:10 AM CDT DT Comment: ----ADDITIONAL INFORMATION---- Standard intensity warfarin therapeutic range: 2.0 to 3.0 ?? High intensity warfarin therapeutic range: 2.5 to 3.5 Blood (Blood, Venous) 03/13/2024 4:35 AM CDT 03/13/2024 4:52 AM CDT Lauren Kennedy M.D. LAB BLOOD ADD-ON Performing Organization Address [facility] Co de Phone Number [facility] [address] [place] [address] * Phosphorus Inorganic (03/13/2024 4:35 AM CDT) Pathologist [facility] Phosphorus (Inorganic), S 3.5 2.5 - 4.5 mg/dL 03/13/2024 5:31 AM CDT DTL Blood (Blood, Venous) 03/13/2024 4:35 AM CDT 03/13/2024 5:08 AM CDT Neel Hernandez APRNNMayPMay LAB BLO OD ADD-ON Performing Organization Address City/[facility]/ZIP Co de Phone Number [facility] [address] [place] [address] * Magnesium (03/13/2024 4:35 AM CDT) Magnesium, S 1.9 1.7 - 2.3 mg/dL 03/13/2024 5:31 AM CDT DTL Blood (Blood, Venous) 03/13/2024 4:35 AM CDT 03/13/2024 5:08 AM CDT Girish Hernandez APRN.NMayPMay LAB BLO OD ADD-ON [facility] [address] [place] [address], [facility] DTL [facility] [address] [place] [address] * (ABNORMAL) Hepatic Function Panel (03/13/2024 4:35 [...] Girish Hernandez APRN.N.P. LAB BLO OD ADD-ON [facility] [address] [place] [address], [facility] DTL [facility] [address] [place] [address] * (ABNORMAL) Basic Metabolic Panel (03/13/2024 4:35 AM CDT) Potassium, S 3.8 3.6 - [...] CDT 03/13/2024 5:08 AM CDT Tiffanie Cagle APRN C.N.P. LAB BLO OD ADD-ON [facility] [address] [place] [address], [facility] DTL [facility] [address] [place] [address] * Calcium, Ionized (03/13/2024 4:34 AM CDT) Pathologist [facility] Calcium, Ionized, S 4.81 4.57 - 5.43 mg/dL 03/13/2024 5:19 AM CDT DTL Comment: ----ADDITIONAL INFORMATION---- This test has been modified from the regional director of finance's instructions. Its performance characteristics were determined by [facility] in a manner consistent with CLIA requirements. This test has not been cleared or approved by the U.S. Food and Drug Administration. pH for Ionized Calcium 7.47 7.35 - 7.48 03/13/2024 5:19 AM CDT DTL Blood (Blood, Venous) 03/13/2024 4:34 AM CDT 03/13/2024 5:07 AM CDT Neel Hernandez APRNNMayPMay LAB BLO OD NON ADD-ON [facility] [place] [address], [facility] [place] [address] * (ABNORMAL) CBC without Differential (03/13/2024 4:34 AM CDT) [facility] Hemoglobin 8.3(L) 13.2 - 16.6 g/dL 03/13/2024 [...] 03/13/2024 4:52 AM CDT Tiffanie H Gurjit BUSTOS C.N.P. LAB BLO OD ADD-ON Performing Organization Address City/[facility]/ZIP Co de Phone Number [facility] [address] [place], [place] [id number] [place] [address] DTL [facility] [address] [place] [address] * (ABNORMAL) Thromboelastograph, Kaolin, Blood (03/13/2024 4:31 [...] CDT 03/13/2024 4:37 AM CDT Samuel Belle APRN, C.N.P. LAB BLOOD NON ADD-ON [facility] [address] [place] [address], [facility] STMA [facility] [address] [place] [address] * Cortisol (03/13/2024 4:25 AM CDT) Cortisol, Random, S 16 mcg/dL 03/13/2024 9:53 AM CDT DTL Comment: ----REFERENCE VALUE---- AM ([id number]): 4.8-20 PM ([id number]): 2.5-12 Blood 03/13/2024 4:25 AM CDT 03/13/2024 9:22 AM CDT Paul Garrett.D., R.Ph., [facility] LAB BLOOD ADD-ON Performing Organization Address City/[facility] Co de Phone Number [facility] [address] [facility] [address] [place] [address] * Cystatin C with Estimated GFR (03/13/2024 4:25 AM CDT) Pathologist [facility] eGFR by Cystatin C 91 >60 mL/min/BSA [...] Ph.D. LAB BLOOD ADD-ON Performing Organization Address City/[facility]/ZIP Co de Phone Number [facility] [address] [place] [address], [facility] [address] [place] [address] * (ABNORMAL) CBC without Differential (03/12/2024 11:55 [...] 11:55 PM CDT 03/12/2024 11:58 PM CDT Girish Esparza APRN.N.P. [place] [address], [facility] [address] [place] [address] * (ABNORMAL) Thromboelastograph, Kaolin, Blood (03/12/2024 11:53 [...] Belle APRN, C.N.P. LAB BLOOD NON ADD-ON [facility] [address] [place] [address], [facility] [address] [place] [address] * Transfuse Pooled Cryoprecipitate:Other (Specify); altered TEG; [...] : (03/12/2024 9:40 PM CDT) Greta Figueroa, B.Saadia., B.A.O. B LOOD TRANSFUSION ORDERABLES * Transfuse Red Blood Cells : , 1 Units (03/12/2024 9:40 PM CDT) Uzair Atkinson.Saadia., B.A.O. B LOOD TRANSFUSION ORDERABLES * Glucose, POCT (03/12/2024 9:37 PM CDT) [facility] Glucose, POCT, B 90 70 - 140 mg/dL 03/12/2024 9:39 PM CDT PCLX Site ARTLINE 03/12/2024 9:39 PM CDT PCLX Last Intake TPN 03/12/2024 9:39 PM CDT PCLX Blood 03/12/2024 9:37 PM CDT 03/12/2024 9:39 PM CDT Unknown Provider LAB POCT ORDERABLES- MANUAL Performing Organization Address City/[facility]/ZIP Co de Phone Number POC [facility] [address] [place] [address], [facility] PCLX [facility] POC [address] [place] [address] * Type and Screen (with Reflex Antibody ID) (03/12/2024 6:39 PM CDT) [facility] ABORh O Pos Not applicable 03/12/2024 7:11 PM CDT STRM Antibody Screen Negative Negative 03/12/2024 7:22 PM CDT STRM Type & Screen Expiration 03/15/2024 23:59 03/12/2024 7:11 PM CDT STRM Testing Location [place] DEFAULT 03/12/2024 6:50 PM CDT STRM Blood (Blood, Venous) 03/12/2024 6:39 PM CDT 03/12/2024 6:50 PM CDT Greta Figueroa, Uzair.Ch., B.A.O. L AB BLOOD BANK TEST ORDERABLES Performing Organization Address City/[facility]/ZIP Co de Phone Number [facility] [address] [place] [address], [place] STRM [facility] [address] [place] [address] * (ABNORMAL) Thromboelastograph, Kaolin, Blood (03/12/2024 5:18 PM CDT) Pathologist [facility] R, Kaolin, TEG 18.6(H) 4.0 - 9.0 [...] CDT 03/12/2024 5:22 PM CDT Greta Figueroa, B.Ch., B.A.O. L AB BLOOD NON ADD-ON [facility] [address] [place] [address], [facility] [address] [place] [address] * (ABNORMAL) CBC without Differential (03/12/2024 5:18 PM CDT) Pathologist [facility] Hemoglobin 7.7(L) 13.2 - 16.6 g/dL 03/12/2024 [...] CDT 03/12/2024 5:21 PM CDT Greta Figueroa, B.Ch., B.A.O. L AB BLOOD ADD-ON Performing Organization Address City/[facility]/ZIP Co de Phone Number [facility] [address] [place] [address], [facility] STMA [facility] [address] [place] [address] * Glucose, POCT (03/12/2024 5:17 PM CDT) [facility] Glucose, POCT, B 114 70 - 140 mg/dL 03/12/2024 5:20 PM CDT PCLX Site ARTLINE 03/12/2024 5:20 PM CDT PCLX Last Intake TPN 03/12/2024 5:20 PM CDT PCLX Blood 03/12/2024 5:17 PM CDT 03/12/2024 5:20 PM CDT Unknown Provider LAB POCT ORDERABLES- MANUAL POC [facility] [address] [place] [address], [facility] PCLX [facility] [address] [place] [address] * Transfuse Fresh Frozen Plasma :Bleeding with altered coagulation; 180 mL/hr (03/12/2024 4:46 PM CDT) Greta Figueroa, B.Ch., B.A.O. B LOOD TRANSFUSION ORDERABLES * Transfuse Fresh Frozen Plasma :Bleeding with altered coagulation; 180 mL/hr, 1 Units (03/12/2024 4:46 PM CDT) Greta Figueroa, Barron, B.A.O. B LILIA TRANSFUSION ORDERABLES * (ABNORMAL) Thromboelastograph, Kaolin, Blood [...] 1:18 PM CDT 03/12/2024 1:22 PM CDT Tiffanie Cagle APRN C.NMayPMay LAB BLO OD NON ADD-ON [facility] [address] [place] [address], [facility] [address] [place] [address] * Patient Status (03/12/2024 11:59 AM CDT) FIO2 0.26 0.21=AIR 03/12/2024 12: 04 PM CDT STMA Device VENT 03/12/2024 12: 04 PM CDT STMA Blood 03/12/2024 11:5 9 AM CDT 03/12/2024 12:04 PM CDT Neel Hernandez APRNNLuis Fernando LAB BLO OD NON ADD-ON [facility] [address] [place] [address], [facility] STMA [facility] [address] [place] [address] * (ABNORMAL) Basic Metabolic Panel (03/12/2024 11:59 AM CDT) Pathologist [facility] Potassium, P 4.2 3.6 - 5.2 mmol/L [...] CDT 03/12/2024 12:05 PM CDT Neel Hernandez APRNN.Bisi LAB BLO OD ADD-ON [facility] [address] [place] [address], [facility] [address] [place] [address] * (ABNORMAL) Blood Gas with Coox, Arterial (03/12/2024 11:59 AM CDT) [facility] pO2 139(H) 83 - 108 mm Hg [...] APRN C.N.P. LAB BLO OD NON ADD-ON [facility] [address] [place] [address], [facility] [address] [place] [address] * (ABNORMAL) CBC without Differential (03/12/2024 11:59 AM CDT) [facility] Hemoglobin 8.4(L) 13.2 - 16.6 g/dL 03/12/2024 [...] LAB BLO OD ADD-ON Performing Organization Address City/State/[facility] Co de Phone Number [facility] [address] [place] [address], [facility] [address] [place] [address] * (ABNORMAL) Glucose, POCT (03/12/2024 11:58 AM CDT) Pathologist [facility] Glucose, POCT, B 143(H) 70 - 140 mg/dL 03/12/2024 12:02 PM CDT PCLX Site ARTLINE 03/12/2024 12:02 PM CDT PCLX Last Intake TPN 03/12/2024 12:02 PM CDT PCLX Blood 03/12/2024 11:5 8 AM CDT 03/12/2024 12:02 PM CDT Unknown Provider LAB POCT ORDERABLES- MANUAL Performing Organization Address City/[facility]/ZIP Co de Phone Number POC [facility] [address] [place] [address], [facility] PCLX [facility] POC [address] [place] [address] * (ABNORMAL) Glucose, POCT (03/12/2024 8:51 AM CDT) Glucose, POCT, B 143(H) 70 - 140 mg/dL 03/12/2024 8:52 AM CDT PCLX Site ARTLINE 03/12/2024 8:52 AM CDT PCLX Last Intake TPN 03/12/2024 8:52 AM CDT PCLX Blood 03/12/2024 8:51 AM CDT 03/12/2024 8:52 AM CDT Unknown Provider LAB POCT ORDERABLES- MANUAL Performing Organization Address [facility] Co de Phone Number POC [facility] [address] [place] [address], [facility] PCLX [facility] POC [address] [place] [address] * DX Chest Portable 1 View (03/12/2024 [...] enteric tube. ETT in the mid intrathoracictrachea. Girish Hernandez APRN.N.P. IMG QUITA GNOSTIC IMAGING PROCEDURES * (ABNORMAL) [...] Belle APRN, C.N.P. LAB BLOOD NON ADD-ON [facility] [address] [place] [address], [facility] STMA [facility] [address] [place] [address] * Calcium, Ionized (03/12/2024 2:45 AM CDT) Calcium, Ionized, B 4.69 4.65 - 5.30 mg/dL 03/12/2024 2:51 AM CDT STMA Blood 03/12/2024 2:45 AM CDT 03/12/2024 2:48 AM CDT Tiffanie Cagle APRN C.N.P. LAB BLO OD NON ADD-ON Performing Organization Address City/[facility] [place] [address] * Patient Status (03/12/2024 2:45 AM CDT) FIO2 0.26 0.21=AIR 03/12/2024 2:4 8 AM CDT STMA Device Vent 03/12/2024 2:4 8 AM CDT STMA Blood 03/12/2024 2:45 AM CDT 03/12/2024 2:48 AM CDT Tiffanie Cagle APRN C.N.P. LAB BLO OD NON ADD-ON Performing Organization Address [facility] [place] [address] * (ABNORMAL) Blood Gas with Coox, Arterial [...] APRN, C.N.P. LAB BLO OD NON ADD-ON [facility] [address] STMA [facility] [address] [place] [address] * Lactate (03/12/2024 2:44 AM CDT) Lactate, P 0.8 0.5 - 2.2 mmol/L 03/12/2024 4:06 AM CDT DTL Blood (Blood, Arterial) 03/12/2024 2:44 AM CDT 03/12/2024 3:46 AM CDT Samuel Belle APRN, C.N.P. LAB BLOOD NON ADD-ON Performing Organization Address City/[facility]/ZIP Co de Phone Number [facility] [address] DTL [facility] [address] [place] [address] * (ABNORMAL) Phosphorus Inorganic (03/12/2024 2:44 AM CDT) Phosphorus (Inorganic), S 4.6(H) 2.5 - 4.5 mg/dL 03/12/2024 5:01 AM CDT DTL Blood (Blood, Venous) 03/12/2024 2:44 AM CDT 03/12/2024 3:46 AM CDT Neel Hernandez APRNNLuis Fernando LAB BLO OD ADD-ON [facility] [address] [place], [place] [address] [place] [address] * Magnesium (03/12/2024 2:44 AM CDT) Magnesium, S 2.0 1.7 - 2.3 mg/dL 03/12/2024 5:01 AM CDT DTL Blood (Blood, Venous) 03/12/2024 2:44 AM CDT 03/12/2024 3:46 AM CDT Neel Hernandez APRNNLuis Fernando LAB BLO OD ADD-ON Performing Organization Address City/[facility] Co de Phone Number [facility] [address] [place], [place] [address] [place] [address] * (ABNORMAL) Basic Metabolic Panel (03/12/2024 2:44 [...] CDT 03/12/2024 3:46 AM CDT Neel Hernandez APRNNMayPMay LAB BLO OD ADD-ON [facility] [address] [place] [address], [facility] [address] [address] * (ABNORMAL) CBC without Differential (03/12/2024 2:44 AM CDT) [facility] Hemoglobin 9.8(L) 13.2 - 16.6 g/dL 03/12/2024 [...] CDT 03/12/2024 3:31 AM CDT Tiffanie Cagle APRN, C.N.P. LAB BLO OD ADD-ON [facility] [address] [place] [address], [facility] DTL [facility] [address] [place] [address] * Glucose, POCT (03/11/2024 9:11 PM CDT) Glucose, POCT, B 110 70 - 140 mg/dL 03/11/2024 9:13 PM CDT PCLX Site ARTLINE 03/11/2024 9:13 PM CDT PCLX Last Intake TPN 03/11/2024 9:13 PM CDT PCLX Blood 03/11/2024 9:11 PM CDT 03/11/2024 9:13 PM CDT Unknown Provider LAB POCT ORDERABLES- MANUAL Performing Organization Address City/[facility] Co de Phone Number POC [facility] [address] [place] [address], [facility] PCLX [facility] POC [address] [place] [address] * Calcium, Ionized (03/11/2024 6:48 PM CDT) Calcium, Ionized, B 4.74 4.65 - 5.30 mg/dL 03/11/2024 6:58 PM CDT STMA Blood (Blood, Venous) 03/11/2024 6:48 PM CDT 03/11/2024 6:53 PM CDT Samuel Belle APRN, C.N.P. LAB BLOOD NON ADD-ON [facility] [address] [place] [address], [facility] STMA [facility] [address] [place] [address] * (ABNORMAL) Phosphorus Inorganic (03/11/2024 6:48 PM CDT) [facility] Phosphorus (Inorganic), S 4.6(H) 2.5 - 4.5 mg/dL 03/11/2024 7:57 PM CDT DTL Blood (Blood, Venous) 03/11/2024 6:48 PM CDT 03/11/2024 7:44 PM CDT Girish Esparza APRN.N.P. LAB BLOOD ADD- ON Performing Organization Address City/[facility] Co de Phone Number [facility] 200 [place] [address] * Magnesium (03/11/2024 6:48 PM CDT) [facility] Magnesium, S 1.7 1.7 - 2.3 mg/dL 03/11/2024 7:57 PM CDT DTL Blood (Blood, Venous) 03/11/2024 6:48 PM CDT 03/11/2024 7:44 PM CDT Girish Esparza APRN.N.P. LAB BLOOD ADD- ON Performing Organization Address City/[facility] de Phone Number [facility] [address] [place] [address], [place] [address] * Patient Status (03/11/2024 6:48 PM CDT) [facility] FIO2 0.30 0.21=AIR 03/11/2024 6:53 PM CDT STMA Device Vent 03/11/2024 6:53 PM CDT STMA Spont. breaths/min 17 03/11/2024 6:53 PM CDT STMA Blood 03/11/2024 6:48 PM CDT 03/11/2024 6:53 PM CDT Girish Hernandez APRN.N.P. LAB BLO OD NON ADD-ON [facility] [address] [place] [address], [facility] [address] [place] [address] * (ABNORMAL) Basic Metabolic Panel (03/11/2024 6:48 [...] CDT 03/11/2024 6:53 PM CDT Neel Hernandez APRNNMayPMay LAB BLO OD ADD-ON [facility] [address] [place] [address], [facility] [address] [place] [address] * (ABNORMAL) Blood Gas with Coox, Arterial (03/11/2024 6:48 PM CDT) Pathologist [facility] pO2 132(H) 83 - 108 mm Hg [...] APRN C.N.P. LAB BLO OD NON ADD-ON [facility] [address] [place] [address], [facility] [address] [place] [address] * (ABNORMAL) CBC without Differential (03/11/2024 6:48 PM CDT) [facility] Hemoglobin 10.0(L) 13.2 - 16.6 g/dL 03/11/2024 [...] CDT 03/11/2024 6:53 PM CDT Neel Hernandez APRNNMayPMay LAB BLO OD ADD-ON [facility] [address] [place] [address], [facility] [address] [place] [address] * Thromboelastograph, Kaolin, Blood (03/11/2024 6:45 PM CDT) [facility] Signature R, Kaolin, TEG 7.8 4.0 - 9.0 [...] APRN, C.N.P. LAB BLO OD NON ADD-ON [facility] [address] [place] [address], [facility] STMA [facility] [address] [place] [address] * DX Abdomen Portable Anterior Posterior 1 [...] CBC without Differential (03/11/2024 4:28 PM CDT) [facility] Hemoglobin 8.7(L) 13.2 - 16.6 g/dL 03/11/2024 [...] PM CDT 03/11/2024 4:28 PM CDT Devin Gonzales M.D. LAB BLOOD ADD-ON [facility] [address] [place] [address], [facility] [address] [place] [address] * Transfuse Red Blood Cells : (03/11/2024 3:52 PM CDT) Devin Gonzales M.D. BLOOD TRANSFUSION OR DERABLES * Transfuse Platelets :Active bleed with anti-PLT therapies; 180 mL/hr; No Special Requirements (03/11/2024 3:34 PM CDT) Tiffanie Cagle APRN C.N.P. BLOOD T RANSFUSION ORDERABLES * Transfuse Platelets :Active bleed with anti-PLT therapies; 180 mL/hr; No Special Requirements, 1 Units (03/11/2024 3:34 PM CDT) Girish Hernandez APRN.N.P. BLOOD T RANSFUSION ORDERABLES * Lactate (03/11/2024 2:06 PM CDT) Pathologist [facility] Lactate, P 1.0 0.5 - 2.2 mmol/L 03/11/2024 2:22 PM CDT STMA Blood (Blood, Venous) 03/11/2024 2:06 PM CDT 03/11/2024 2:10 PM CDT Girish Hernandez APRN.N.P. LAB BLO OD NON ADD-ON [facility] [address] [place] [address], [facility] [address] [place] [address] * (ABNORMAL) CBC without Differential (03/11/2024 2:06 PM CDT) [facility] Hemoglobin 7.9(L) 13.2 - 16.6 g/dL 03/11/2024 [...] LAB BLO OD ADD-ON Performing Organization Address [facility] Co de Phone Number [facility] [address] [place] [address], [facility] [address] [place] [address] * (ABNORMAL) Thromboelastograph, Kaolin, Blood (03/11/2024 2:05 [...] 2:05 PM CDT 03/11/2024 2:10 PM CDT Girish Hernandez APRN.N.Bisi LAB BLO OD NON ADD-ON Performing Organization Address [facility]/ZIP Co de Phone Number [facility] [address] [place] [address], [facility] [address] [place] [address] * Transfuse Red Blood Cells : (03/11/2024 1:12 PM CDT) Neel Hernandez APRNN.PMay BLOOD T RANSFUSION ORDERABLES * Transfuse Red [...] LAB POCT ORDERABLES- MANUAL Performing Organization Address City/[facility]/ZIP Co de Phone Number [facility] [address] [place] [address], [facility] PCLX [facility] POC [address] [place] [address] * Transfuse Fresh Frozen Plasma :Bleeding with [...] LAB POCT ORDERABLES- MANUAL Performing Organization Address City/[facility]/ZIP Co de Phone Number POC [facility] [address] [place] [address], [place] PCLX [facility] POC [address] [place] [address] * Patient Status (03/11/2024 6:21 AM CDT) FIO2 0.30 0.21=AIR 03/11/2024 6:2 7 AM CDT STMA Device Vent 03/11/2024 6:2 7 AM CDT STMA Blood 03/11/2024 6:21 AM CDT 03/11/2024 6:27 AM CDT Samuel Belle APRN C.N.P. LAB BLOOD NON ADD-ON [facility] [address] [place] [address], [facility] [address] [place] [address] * (ABNORMAL) Blood Gas with Coox, Arterial (03/11/2024 6:21 AM CDT) Pathologist [facility] pO2 122(H) 83 - 108 mm Hg [...] Site Art Line 03/11/2024 6:27 AM CDT [facility] Comment:Wilfredo's test not don e. Blood (Blood, Arterial) 03/11/2024 6:21 AM CDT 03/11/2024 6:27 AM CDT Samuel Belle APRN, C.N.P. LAB BLOOD NON ADD-ON [facility] [address] [place] [address] * Phosphorus Inorganic (03/11/2024 6:20 AM CDT) Phosphorus (Inorganic), S 3.1 2.5 - 4.5 mg/dL 03/11/2024 7:51 AM CDT DTL Blood (Blood, Venous) 03/11/2024 6:20 AM CDT 03/11/2024 7:30 AM CDT Samuel Belle APRN, C.N.P. LAB BLOOD ADD- ON [facility] [address] [place] [address], [facility] [address] [place] [address] * Magnesium (03/11/2024 6:20 AM CDT) Magnesium, S 2.0 1.7 - 2.3 mg/dL 03/11/2024 7:51 AM CDT DTL Blood (Blood, Venous) 03/11/2024 6:20 AM CDT 03/11/2024 7:30 AM CDT Girish Esparza APRN.N.P. LAB BLOOD ADD- ON [facility] [address] [place] [address], [facility] [address] [place] [address] * Calcium, Ionized (03/11/2024 6:20 AM CDT) Calcium, Ionized, S 4.93 4.57 - 5.43 mg/dL 03/11/2024 7:48 AM CDT DTL Comment: ----ADDITIONAL INFORMATION---- This test has been modified from the regional director of finance's instructions. Its performance characteristics were determined by [facility] in a manner consistent with CLIA requirements. This test has not been cleared or approved by the U.S. Food and Drug Administration. pH for Ionized Calcium 7.46 7.35 - 7.48 03/11/2024 7:48 AM CDT DTL Blood (Blood, Venous) 03/11/2024 6:20 AM CDT 03/11/2024 7:32 AM CDT Samuel Belle APRN C.N.P. LAB BLOOD NON ADD-ON [facility] [address] [place] [address], [facility] DTL [facility] [address] [place] [address] * (ABNORMAL) Hepatic Function Panel (03/11/2024 6:20 [...] LAB BLOOD ADD- ON Performing Organization Address City/[facility]/ZIP Co de Phone Number [facility] [address] [place] [address], [facility] DTL [facility] [address] [place] [address] * (ABNORMAL) CBC without Differential (03/11/2024 6:20 [...] Belle APRN, C.N.P. LAB BLOOD ADD- ON [facility] [address] [place] [address], [facility] [address] [place] [address] * (ABNORMAL) Basic Metabolic Panel (03/11/2024 6:20 AM CDT) Pathologist [facility] Potassium, S 4.4 3.6 - 5.2 mmol/L [...] Belle APRN, C.N.P. LAB BLOOD ADD- ON [facility] [address] [place] [address], [facility] [address] [place] [address] * Triglycerides (03/11/2024 6:20 AM CDT) [facility] Triglycerides 75 mg/dL 03/11/2024 7:50 AM CDT DTL Comment: ----REFERENCE VALUE---- Normal: <150 mg/dL Borderline High: 150-199 mg/dL High: 200-499 mg/dL Very High: > or =500 mg/dL Fasting (8 HR or more) Unknown 03/11/2024 6:21 AM CDT DTL Blood (Blood, Venous) 03/11/2024 6:20 AM CDT 03/11/2024 7:30 AM CDT Rufus BrownSMay LAB BLOOD ADD-O N Performing Organization Address [facility] Co de Phone Number [facility] [address] [place] [address], [facility] DTL [facility] [address] [place] [address] * (ABNORMAL) Thromboelastograph, Kaolin, Blood (03/11/2024 6:18 [...] BLOOD NON ADD-O N Performing Organization Address City/[facility] Co de Phone Number [facility] [address] [place] [address], [facility] [facility] [address] [place] [address] * DX Chest Portable 1 View (03/11/2024 [...] tube. Prominent cardiomediastinal silhouette. Samuel Belle APRN C.N.PMay IMG DIAGNOSTIC IMAGING PROCEDURES * Transfuse Fresh [...] Shock; 180 mL/hr (03/10/2024 11:49 PM CDT) Daivd Pandya M.D. BLOOD TRANSFUSION OR DERABLES * [...] Unknown Provider LAB POCT ORDERABLES- MANUAL POC [facility] [address] [place] [address], [facility] PCLX [facility] POC [address] [place] [address] * (ABNORMAL) Troponin T, 2 Hour with [...] Wheeler APRN, C.N.P., D.N.P. LAB BLOOD TROPONIN [facility] [address] [place] [address], [facility] [address] [place] [address] * Patient Status (03/10/2024 6:13 PM CDT) Pathologist [facility] FIO2 0.40 0.21=AIR 03/10/2024 6:18 PM CDT ST[facility] Device Vent 03/10/2024 6:18 PM CDT ST[facility] Spont. breaths/min 15 03/10/2024 6:18 PM CDT [facility] Blood 03/10/2024 6:13 PM CDT 03/10/2024 6:18 PM CDT Girish Tony APRN.N.P., D.N.P. LAB BLOOD NON ADD-ON Performing Organization Address City/[facility]/ZIP Co de Phone Number [facility] [address] [place], [place] [address] [place] [address] 200 [place] [address] * Calcium, Ionized (03/10/2024 6:13 PM CDT) [facility] Calcium, Ionized, B 4.88 4.65 - 5.30 mg/dL 03/10/2024 6:21 PM CDT [facility] Blood (Blood, Venous) 03/10/2024 6:13 PM CDT 03/10/2024 6:18 PM CDT Xiao Wheeler APRN, C.N.P., D.N.P. LAB BLOOD NON ADD-ON [facility] [address] [place] [address], [facility] [address] [place] [address] * (ABNORMAL) Blood Gas with Coox, Arterial (03/10/2024 6:13 PM CDT) [facility] pO2 139(H) 83 - 108 mm Hg [...] APRN, C.N.P., D.N.P. LAB BLOOD NON ADD-ON [facility] [address] [place] [address], [facility] [address] [place] [address] * (ABNORMAL) Troponin T, Baseline with 2 Hour/6 Hour Reflex Biomarker Panel (03/10/2024 6:12 PM CDT) Troponin T, Baseline, 5th gen 18(H) <=15 ng/L 03/10/2024 6:34 PM CDT STMA Blood (Blood, Venous) 03/10/2024 6:12 PM CDT 03/10/2024 6:18 PM CDT Girish oTny APRN.N.P., D.N.P. LAB BLOOD TROPONIN [facility] [address] STMA [facility] 200 [place] [address] * Phosphorus Inorganic (03/10/2024 6:12 PM CDT) Phosphorus (Inorganic), S 4.0 2.5 - 4.5 mg/dL 03/10/2024 7:18 PM CDT DTL Blood (Blood, Venous) 03/10/2024 6:12 PM CDT 03/10/2024 7:03 PM CDT Xiao Wheeler APRN, Girish.N.P., D.N.P. LAB BLOOD ADD-ON Performing Organization Address City/[facility]/ZIP Co de Phone Number [facility] [address] 200 [place] [address] * Magnesium (03/10/2024 6:12 PM CDT) Magnesium, S 1.9 1.7 - 2.3 mg/dL 03/10/2024 7:18 PM CDT DTL Blood (Blood, Venous) 03/10/2024 6:12 PM CDT 03/10/2024 7:03 PM CDT Xiao Wheeler APRN, Girish.N.P., D.N.P. LAB BLOOD ADD-ON [facility] [address] 200 [place] [address] * Lactate (03/10/2024 6:12 PM CDT) Lactate, P 0.7 0.5 - 2.2 mmol/L 03/10/2024 6:32 PM CDT STMA Blood (Blood, Venous) 03/10/2024 6:12 PM CDT 03/10/2024 6:18 PM CDT Xiao Wheeler APRN, C.N.P., D.N.P. LAB BLOOD NON ADD-ON [address] [address], [address] [address] * (ABNORMAL) Hepatic Function Panel (03/10/2024 6:12 [...] 6:12 PM CDT 03/10/2024 7:03 PM CDT Neel Tony APRNN.P., D.N.P. LAB BLOOD ADD-ON [facility] [address] [place] [address], [facility] DTL [facility] [address] [place] [address] * (ABNORMAL) CBC without Differential (03/10/2024 6:12 PM CDT) Pathologist [facility] Hemoglobin 8.8(L) 13.2 - 16.6 g/dL 03/10/2024 [...] 6:12 PM CDT 03/10/2024 6:18 PM CDT Girish Tony APRN.N.P., D.N.P. LAB BLOOD ADD-ON [facility] [address] [place] [address], [facility] STMA [facility] [address] [place] [address] * (ABNORMAL) Basic Metabolic Panel (03/10/2024 6:12 PM CDT) Pathologist [facility] Potassium, P 3.6 3.6 - 5.2 mmol/L [...] Wheeler APRN, C.N.P., D.N.P. LAB BLOOD ADD-ON [facility] [address] [place] [address], [facility] [address] [place] [address] * (ABNORMAL) Thromboelastograph, Kaolin, Blood (03/10/2024 6:08 PM CDT) [facility] R, Kaolin, TEG 14.0(H) 4.0 - 9.0 [...] APRN, C.N.P., D.N.P. LAB BLOOD NON ADD-ON [facility] [address] [place] [address], [facility] [address] [place] [address] * DX Chest Portable 1 View (03/10/2024 5:45 PM CDT) Anatomical Region Laterality Modality Chest, Thoracic RST LOS, Tho racic ARZ LOS, Thoracic FLA LOS N/A Digital Radiography Impressions 03/10/2024 9:13 PM CDT Since 03/02/2024, improved lung volumes and decreased patchy atelectasis/consolidation at the bases. New subdiaphragmatic enteric tube with tip outside the [id number], sidehole overlying the expected stomach. New partially [...] New subdiaphragmatic enteric tubewith tip outside the [id number], sidehole overlying the expectedstomach. New partially visualized surgical material right upper abdomen, correlate with intentionally packedmaterial during temporary closure. Otherwise no significant change. ETTwith tip in midthoracic trachea. Right PICC with tip at the SVC/RAjunction. Elevated right hemidiaphragm. Bibasilar atelectasis. Xiao Wheeler APRN, C.N.P., D.N.P. IMG DIAGNOSTIC IMAGING PROCEDURES * ECG 12 Lead (03/10/2024 5:37 PM CDT) Ventricular Rate ECG/Min 70 BPM MUSE NV Interval 128 ms MUSE QRSD Interval 82 ms MUSE QT Interval 436 ms MUSE QTC Interval 470 ms MUSE P [place] -11 degrees MUSE R [place] 38 degrees MUSE T Wave [place] 18 degrees MUSE 03/10/2024 5:37 PM CDT [...] 03/10/2024 4:39 PM CDT Ayad Georges APRN, KRISHAN, DNAP LAB BLOO D NON ADD-ON Performing Organization Address City/[facility]/ZIP Co de Phone Number [facility] [address] 200 [place] [address] * (ABNORMAL) Platelet Count (03/10/2024 4:39 PM CDT) [facility] Platelet Count 132(L) 135 - 317 x10(9)/L 03/10/2024 4:48 PM CDT [facility] Blood (Blood, Arterial Line) 03/10/2024 4:39 PM CDT 03/10/2024 4:39 PM CDT Renea Pelletier M.D. LAB BLOOD ADD-ON Performing Organization Address City/[facility] Co de Phone Number [facility] [address] 200 [place] [address] * (ABNORMAL) Prothrombin Time (PT) (03/10/2024 4:39 PM CDT) Pathologist [facility] Prothrombin Time, P 18.9(H) 9.4 - 12.5 sec 03/10/2024 4:59 PM CDT STMA INR 1.7 0.9 - 1.1 03/10/2024 4:59 PM CDT STMA Comment: ----ADDITIONAL INFORMATION---- Standard intensity warfarin therapeutic range: 2.0 to 3.0 ?? High intensity warfarin therapeutic range: 2.5 to 3.5 Blood (Blood, Arterial Line) 03/10/2024 4:39 PM CDT 03/10/2024 4:39 PM CDT Renea Pelletier M.D. LAB BLOOD ADD-ON [facility] [address] [place] [place] [address] [place] [address] [address] [place] [address] * (ABNORMAL) Fibrinogen (03/10/2024 4:39 PM CDT) [facility] Fibrinogen, P 457(H) 200 - 393 mg/dL 03/10/2024 4:59 PM CDT STMA Blood (Blood, Arterial Line) 03/10/2024 4:39 PM CDT 03/10/2024 4:39 PM CDT Renea Pelletier M.D. LAB BLOOD ADD-ON Performing Organization Address City/[facility]/ZIP Co de Phone Number [facility] [address] [place], [place] [address] [address] [place] [address] * (ABNORMAL) APTT (Activated Partial Thromboplastin Time) (03/10/2024 4:39 PM CDT) [facility] Activated Partial Thrombopl Time, P 40(H) 25 - 37 sec 03/10/2024 5:01 PM CDT [facility] Blood (Blood, Arterial Line) 03/10/2024 4:39 PM CDT 03/10/2024 4:39 PM CDT Renea Pelletier M.D. LAB BLOOD ADD-ON [facility] [address] [place], [place] [address] [place] [address] [address] [place] [address] * Glucose, Whole Blood (03/10/2024 4:39 PM CDT) Glucose 119 70 - 140 mg/dL 03/10/2024 4:41 PM CDT STMA Blood (Blood, Arterial Line) 03/10/2024 4:39 PM CDT 03/10/2024 4:39 PM CDT Renea Pelletier M.D. LAB BLOOD ADD-ON Performing Organization Address City/[facility]/ZIP Co de Phone Number [facility] [address] [place] [address], [facility] [address] [place] [address] * (ABNORMAL) Potassium, Blood (03/10/2024 4:39 PM CDT) Potassium, B 3.1(L) 3.6 - 5.2 mmol/L 03/10/2024 4:42 PM CDT ST[facility] Blood (Blood, Arterial Line) 03/10/2024 4:39 PM CDT 03/10/2024 4:39 PM CDT Renea Pelletier M.D. LAB BLOOD NON ADD-ON Performing Organization Address City/[facility]/ZIP Co de Phone Number [facility] [address] [place], [place] [address] [place] [address] [address] [place] [address] * Sodium, B (03/10/2024 4:39 PM CDT) Sodium, B 141 135 - 145 mmol/L 03/10/2024 4:41 PM CDT [facility] Blood (Blood, Arterial Line) 03/10/2024 4:39 PM CDT 03/10/2024 4:39 PM CDT Narrative Authorizing Provider Result Kelly Pelletier M.D. LAB BLOOD NON ADD-ON Performing Organization Address City/[facility]/ZIP Co de Phone Number [facility] [address] [place] [address], [facility] [address] [place] [address] * (ABNORMAL) Calcium, Ionized (03/10/2024 4:39 PM CDT) Calcium, Ionized, B 5.44(H) 4.65 - 5.30 mg/dL 03/10/2024 4:42 PM CDT STMA Blood (Blood, Arterial Line) 03/10/2024 4:39 PM CDT 03/10/2024 4:39 PM CDT Renea Pelletier M.D. LAB BLOOD NON ADD-ON [facility] [address] [place] [address], [address] [address] * (ABNORMAL) Blood Gas with Coox, Arterial (03/10/2024 4:39 PM CDT) Pathologist [facility] pO2 90 83 - 108 mm Hg [...] Renea Pelletier M.D. LAB BLOOD NON ADD-ON [facility] [address] [place] [address], [facility] [address] [place] [address] * Transfuse Red Blood Cells : (03/10/2024 [...] 03/10/2024 3:25 PM CDT Ayad Georges APRN, FAMILY SERVICES COORDINATOR, DNAP LAB BLOO D NON ADD-ON Performing Organization Address City/[facility]/ZIP Co de Phone Number [facility] [address] [place] [address], [facility] [address] [place] [address] * Glucose, Whole Blood (03/10/2024 3:25 PM CDT) Glucose 106 70 - 140 mg/dL 03/10/2024 3:27 PM CDT [facility] Blood (Blood, Arterial Line) 03/10/2024 3:25 PM CDT 03/10/2024 3:25 PM CDT Renea Pelletier M.D. LAB BLOOD ADD-ON Performing Organization Address City/[facility]/ZIP Co de Phone Number [facility] [address] [place] [address], [facility] [address] [place] [address] * (ABNORMAL) Potassium, Blood (03/10/2024 3:25 PM CDT) Potassium, B 3.2(L) 3.6 - 5.2 mmol/L 03/10/2024 3:27 PM CDT ST[facility] Blood (Blood, Arterial Line) 03/10/2024 3:25 PM CDT 03/10/2024 3:25 PM CDT Renea Pelletier M.D. LAB BLOOD NON ADD-ON Performing Organization Address City/[facility]/ZIP Co de Phone Number [facility] [address] [place] [address], [facility] [address] [place] [address] * Sodium, B (03/10/2024 3:25 PM CDT) Sodium, B 140 135 - 145 mmol/L 03/10/2024 3:27 PM CDT ST[facility] Blood (Blood, Arterial Line) 03/10/2024 3:25 PM CDT 03/10/2024 3:25 PM CDT Renea Pelletier M.D. LAB BLOOD NON ADD-ON Performing Organization Address City/[facility]/ZIP Co de Phone Number [facility] [address] [place] [address], [facility] [address] [place] [address] * (ABNORMAL) Calcium, Ionized (03/10/2024 3:25 PM CDT) Calcium, Ionized, B 4.59(L) 4.65 - 5.30 mg/dL 03/10/2024 3:27 PM CDT [facility] Blood (Blood, Arterial Line) 03/10/2024 3:25 PM CDT 03/10/2024 3:25 PM CDT Renea Pelletier M.D. LAB BLOOD NON ADD-ON [facility] [address] [place] [address], [facility] STMA [facility] [address] [place] [address] * (ABNORMAL) Blood Gas with Coox, Arterial (03/10/2024 3:25 PM CDT) pO2 102 83 - 108 mm Hg [...] Renea Pelletier M.D. LAB BLOOD NON ADD-ON [facility] [address] [place], [place] [address] [place] [address] [place] [address] * (ABNORMAL) Prothrombin Time (PT) (03/10/2024 1:07 PM CDT) Pathologist [facility] Prothrombin Time, P 17.4(H) 9.4 - 12.5 sec 03/10/2024 1:20 PM CDT [facility] IN[facility] 1.6 0.9 - 1.1 03/10/2024 1:20 PM CDT [facility] Comment: ----ADDITIONAL INFORMATION---- Standard intensity warfarin therapeutic range: 2.0 to 3.0 ?? High intensity warfarin therapeutic range: 2.5 to 3.5 Blood (Blood, Venous) 03/10/2024 1:07 PM CDT 03/10/2024 1:13 PM CDT Tam Huang P.A.-C. M.S. LAB B LOOD ADD-ON [facility] [address] [place] [address], [facility] [address] [place] [address] * Glucose, POCT (03/10/2024 11:38 AM CDT) [facility] Glucose, POCT, B 96 70 - 140 mg/dL 03/10/2024 11:39 AM CDT PCLX Comment: Glucose results collected from venous catheters may be falsely elevated. Site Venline 03/10/2024 11:39 AM CDT PCLX Last Intake NPO 03/10/2024 11:39 AM CDT PCLX Blood 03/10/2024 11:3 8 AM CDT 03/10/2024 11:39 AM CDT Unknown Provider LAB POCT ORDERABLES- MANUAL POC [facility] [address] [place] [address], [facility] PCLX [facility] POC [address] [place] [address] * Lactate (03/10/2024 11:38 AM CDT) Lactate, P 0.8 0.5 - 2.2 mmol/L 03/10/2024 12:05 PM CDT ST[facility] Blood (Blood, Venous) 03/10/2024 11:38 AM CDT 03/10/2024 11:43 AM CDT Tam Huang P.A.-C. MEfe LAB B LOOD NON ADD-ON [facility] [address] [place] [address], [facility] [address] [place] [address] * CT Abdomen Pelvis with IV Contrast [...] junction. Findings were discussed with Tam JEWELL (#[id number]) at 03/10/2024 10:37 AM. Procedure Note Estelle [...] junction. Findings were discussed with Tam JEWELL (#[id number]) at 0:37 AM. IMPRESSION: 1. New large volume pneumoperitoneum, likely secondary to gastricperforation at the site of the percutaneous gastrojejunostomy balloon. 2. Slightly worsened functional ileus. 3. Persistent consolidative/groundglass opacities in the bibasilar lowerlungs. 4. Decreased inflammation of the distal sigmoid colon and rectum. Basil Miranda APRN, C.N.P. IMG CT [place] OCEDURES * Glucose, POCT (03/10/2024 8:24 AM CDT) Glucose, POCT, B 91 70 - 140 mg/dL 03/10/2024 8:25 AM CDT PCLX Site Capillary 03/10/2024 8:25 AM CDT PCLX Last Intake NPO 03/10/2024 8:25 AM CDT PCLX Blood 03/10/2024 8:24 AM CDT 03/10/2024 8:26 AM CDT Unknown Provider LAB POCT ORDERABLES- MANUAL POC [facility] [address] [place] [address], [facility] PCLX [facility] POC [address] [place] [address] * DX Abdomen Portable Anterior Posterior 1 [...] CBC without Differential (03/10/2024 4:19 AM CDT) Hemoglobin 8.1(L) 13.2 - 16.6 g/dL 03/10/2024 [...] 4:19 AM CDT 03/10/2024 5:16 AM CDT Rashad Sal APRN, C.N.P., M.S.NMay DE JESUS B BLOOD ADD-ON [facility] [address] [place] [address], [place] DTL [facility] [address] [place] [address] * Phosphorus Inorganic (03/10/2024 4:19 AM CDT) Phosphorus (Inorganic), S 2.8 2.5 - 4.5 mg/dL 03/10/2024 5:44 AM CDT DTL Blood (Blood, Venous) 03/10/2024 4:19 AM CDT 03/10/2024 5:27 AM CDT Neel Jennings APRNNAlexandra., M.S.NMay DELGADO BLOOD ADD-ON Performing Organization Address City/[facility]/ZIP Co de Phone Number [facility] 200 [place] [address] * (ABNORMAL) Magnesium (03/10/2024 4:19 AM CDT) Magnesium, S 2.4(H) 1.7 - 2.3 mg/dL 03/10/2024 5:44 AM CDT DTL Blood (Blood, Venous) 03/10/2024 4:19 AM CDT 03/10/2024 5:27 AM CDT Girish Jennings APRN.N.P., M.S.NMay DELGADO BLOOD ADD-ON Performing Organization Address [facility] Co de Phone Number [facility] [address] [facility] 200 [place] [address] * (ABNORMAL) Basic Metabolic Panel (03/10/2024 4:19 [...] APRN C.N.P., M.S.N. LA B BLOOD ADD-ON [facility] [address] [place] [address], [facility] [address] [place] [address] * (ABNORMAL) Cystatin C with Estimated GFR (03/10/2024 4:19 AM CDT) Pathologist [facility] eGFR by Cystatin C 60(L) >60 mL/min/BSA [...] 5:27 AM CDT Rashad Sal APRN, C.N.P., M.S.N. NEAL Dunne BLOOD ADD-ON [facility] [address] [place], [place] [id number] [place] [address] DTL [facility] [address] [place] [address] * Glucose, POCT (03/10/2024 2:18 AM CDT) Glucose, POCT, B 92 70 - 140 mg/dL 03/10/2024 2:20 AM CDT PCLX Site Capillary 03/10/2024 2:20 AM CDT PCLX Last Intake NPO 03/10/2024 2:20 AM CDT PCLX Blood 03/10/2024 2:18 AM CDT 03/10/2024 2:20 AM CDT Unknown Provider LAB POCT ORDERABLES- MANUAL Performing Organization Address City/State/[facility] Co de Phone Number POC [facility] [address] [place], [place] [address] PCLX [facility] POC [address] [place] [address] * Glucose, POCT (03/09/2024 8:38 PM CDT) Glucose, POCT, B 105 70 - 140 mg/dL 03/09/2024 8:40 PM CDT PCLX Site Capillary 03/09/2024 8:40 PM CDT PCLX Last Intake NPO 03/09/2024 8:40 PM CDT PCLX Blood 03/09/2024 8:38 PM CDT 03/09/2024 8:40 PM CDT Unknown Provider LAB POCT ORDERABLES- MANUAL POC [facility] [address] [place] [address], [facility] PCLX [facility] POC [address] [place] [address] * Glucose, POCT (03/09/2024 5:02 PM CDT) Glucose, POCT, B 98 70 - 140 mg/dL 03/09/2024 5:03 PM CDT PCLX Site Capillary 03/09/2024 5:03 PM CDT PCLX Last Intake NPO 03/09/2024 5:03 PM CDT PCLX Blood 03/09/2024 5:02 PM CDT 03/09/2024 5:03 PM CDT Unknown Provider LAB POCT ORDERABLES- MANUAL Performing Organization Address [facility] Co de Phone Number POC [facility] [address] [place] [address], [facility] PCLX [facility] P[facility] [address] [place] [address] * DX Abdomen Portable Anterior Posterior 1 [...] and side-port in the stomach. Rashad Sal APRN, C.N.P., M.S.N. IM G DIAGNOSTIC IMAGING PROCEDURES * Patient Status (03/09/2024 12:50 PM CDT) FIO2 0.30 0.21=AIR 03/09/2024 12: 53 PM CDT ST[facility] Device Vent 03/09/2024 12: 53 PM CDT STMA Blood 03/09/2024 12:5 0 PM CDT 03/09/2024 12:53 PM CDT Neel Jennings APRNNAlexandra., M.S.N. NEAL Dunne BLOOD NON ADD-ON [facility] [address] [place] [address], [facility] STMA [facility] [address] [place] [address] * (ABNORMAL) Blood Gas without Coox, Venous [...] CDT 03/09/2024 12:53 PM CDT Neel Jennings APRNNMayP., M.S.N. NEAL Dunne BLOOD NON ADD-ON [facility] [address] [place] [address], [facility] STMA [facility] [address] [place] [address] * Glucose, POCT (03/09/2024 11:50 AM CDT) Glucose, POCT, B 102 70 - 140 mg/dL 03/09/2024 11:51 AM CDT PCLX Site Capillary 03/09/2024 11:51 AM CDT PCLX Last Intake NPO 03/09/2024 11:51 AM CDT PCLX Blood 03/09/2024 11:5 0 AM CDT 03/09/2024 11:51 AM CDT Unknown Provider LAB POCT ORDERABLES- MANUAL Performing Organization Address City/[facility] Co de Phone Number POC [facility] [address] [place] [address], [facility] PCLX [facility] P[facility] [address] [place] [address] * Glucose, POCT (03/09/2024 7:30 AM CDT) Glucose, POCT, B 94 70 - 140 mg/dL 03/09/2024 7:31 AM CDT PCLX Site Capillary 03/09/2024 7:31 AM CDT PCLX Last Intake NPO 03/09/2024 7:31 AM CDT PCLX Blood 03/09/2024 7:30 AM CDT 03/09/2024 7:32 AM CDT Unknown Provider LAB POCT ORDERABLES- MANUAL Performing Organization Address City/[facility] Co de Phone Number POC [facility] [address] [place] [address], [facility] PCLX [facility] POC [address] [place] [address] * (ABNORMAL) CBC without Differential (03/09/2024 3:22 [...] Paredes P.A.-C., M.S. LAB BLO OD ADD-ON [facility] [address] [place] [address], [facility] DTA[facility] [address] [place] [address] * (ABNORMAL) Basic Metabolic Panel (03/09/2024 3:22 AM CDT) Pathologist [facility] Potassium, S 4.8 3.6 - 5.2 mmol/L [...] LAB BLO OD ADD-ON Performing Organization Address City/[facility]/ZIP Co de Phone Number [address] [place] [address] * Magnesium (03/09/2024 3:17 AM CDT) Magnesium, S 2.1 1.7 - 2.3 mg/dL 03/09/2024 4:58 PM CDT DTL Blood (Blood, Venous) 03/09/2024 3:17 AM CDT 03/09/2024 4:31 PM CDT Neel Jennings APRNNAlexandra., M.S.N. LA B BLOOD ADD-ON Performing Organization Address City/[facility]/ZIP Co de Phone Number [facility] [address] [address] * (ABNORMAL) Cystatin C with Estimated GFR [...] LAB BLOOD ADD-O N Performing Organization Address City/[facility]/ZIP Co de Phone Number [facility] [address] [place] [address], [facility] DTL [facility] [address] [place] [address] * Glucose, POCT (03/08/2024 8:37 PM CDT) Glucose, POCT, B 102 70 - 140 mg/dL 03/08/2024 8:38 PM CDT PCLX Site Capillary 03/08/2024 8:38 PM CDT PCLX Last Intake NPO 03/08/2024 8:38 PM CDT PCLX Blood 03/08/2024 8:37 PM CDT 03/08/2024 8:38 PM CDT Unknown Provider LAB POCT ORDERABLES- MANUAL Performing Organization Address City/[facility]/ZIP Co de Phone Number POC [facility] [address] [place] [address], [facility] PCLX [facility] P[facility] [address] [place] [address] * Glucose, POCT (03/08/2024 6:20 PM CDT) Glucose, POCT, B 95 70 - 140 mg/dL 03/08/2024 6:22 PM CDT PCLX Blood 03/08/2024 6:20 PM CDT 03/08/2024 6:22 PM CDT Unknown Provider LAB POCT ORDERABLES- MANUAL Performing Organization Address City/[facility] Co de Phone Number POC [facility] [address] [place] [address], [facility] PCLX [facility] [address] [place] [address] * Glucose, POCT (03/08/2024 5:10 PM CDT) Glucose, POCT, B 86 70 - 140 mg/dL 03/08/2024 5:13 PM CDT PCLX Blood 03/08/2024 5:10 PM CDT 03/08/2024 5:14 PM CDT Unknown Provider LAB POCT ORDERABLES- MANUAL Performing Organization Address [facility] Co de Phone Number [facility] [address] [place] [address], [facility] PCLX [facility] [address] [place] [address] * Patient Status (03/08/2024 12:19 PM CDT) FIO2 0.30 0.21=AIR 03/08/2024 12: 22 PM CDT STMA Device Vent 03/08/2024 12: 22 PM CDT STMA Blood 03/08/2024 12:1 9 PM CDT 03/08/2024 12:22 PM CDT Rashad Sal APRN, C.N.P., M.S.N. LA B BLOOD NON ADD-ON Performing Organization Address City/[facility]/ZIP Co de Phone Number [facility] [address] [place] [address], [facility] STMA [facility] [address] [place] [address] * (ABNORMAL) Blood Gas without Coox, Arterial [...] B BLOOD NON ADD-ON Performing Organization Address City/[facility]/ZIP Co de Phone Number [facility] [address] STMA [facility] 200 [place] [address] * Glucose, POCT (03/08/2024 12:09 PM CDT) Glucose, POCT, B 88 70 - 140 mg/dL 03/08/2024 12:10 PM CDT PCLX Blood 03/08/2024 12:0 9 PM CDT 03/08/2024 12:10 PM CDT Unknown Provider LAB POCT ORDERABLES- MANUAL POC [facility] [address] [place] [address], [facility] PCLX [facility] P[facility] [address] [place] [address] * Glucose, POCT (03/08/2024 7:48 AM CDT) Glucose, POCT, B 90 70 - 140 mg/dL 03/08/2024 7:49 AM CDT PCLX Blood 03/08/2024 7:48 AM CDT 03/08/2024 7:50 AM CDT Unknown Provider LAB POCT ORDERABLES- MANUAL Performing Organization Address City/[facility]/ZIP Co de Phone Number POC [facility] [address] [place] [address], [facility] PCLX [facility] [address] [place] [address] * (ABNORMAL) CBC without Differential (03/08/2024 5:22 [...] CDT 03/08/2024 6:11 AM CDT Ivory Paredes P.A.-C. M.S. LAB BLO OD ADD-ON Performing Organization Address City/[facility]/ZIP Co de Phone Number [facility] [address] [place] [address], [facility] [address] [place] [address] * (ABNORMAL) Basic Metabolic Panel (03/08/2024 5:22 [...] Paredes P.A.-C., M.S. LAB BLO OD ADD-ON [facility] [address] [place] [address], [facility] [address] [place] [address] * Type and Screen (with Reflex Antibody ID) (03/08/2024 5:19 AM CDT) ABORh O Pos Not applicable 03/08/2024 7:04 AM CDT STRM Antibody Screen Negative Negative 03/08/2024 7:18 AM CDT STRM Type & Screen Expiration 03/11/2024 23:59 03/08/2024 7:04 AM CDT STRM Testing Location [facility] 03/08/2024 6:44 AM CDT STRM Blood (Blood, Venous) 03/08/2024 5:19 AM CDT 03/08/2024 6:44 AM CDT Rashad Sal APRN, C.N.P., M.SJuli DELGADO BLOOD BANK TEST ORDERABLES [facility] [place] [address] [place] [address], [facility] STRM [facility] [address] [place] [address] * Glucose, POCT (03/08/2024 2:01 AM CDT) Glucose, POCT, B 88 70 - 140 mg/dL 03/08/2024 2:03 AM CDT PCLX Site ARTLINE 03/08/2024 2:03 AM CDT PCLX Last Intake NPO 03/08/2024 2:03 AM CDT PCLX Blood 03/08/2024 2:01 AM CDT 03/08/2024 2:04 AM CDT Unknown Provider LAB POCT ORDERABLES- MANUAL POC [facility] [address] [place] [address], [facility] PCLX [facility] [address] [place] [address] * Glucose, POCT (03/07/2024 11:49 PM CDT) Glucose, POCT, B 88 70 - 140 mg/dL 03/07/2024 11:50 PM CDT PCLX Site ARTLINE 03/07/2024 11:50 PM CDT PCLX Last Intake NPO 03/07/2024 11:50 PM CDT PCLX Blood 03/07/2024 11:4 9 PM CDT 03/07/2024 11:51 PM CDT Unknown Provider LAB POCT ORDERABLES- MANUAL POC [facility] [address] [place] [address], [facility]CLX [facility] [address] [place] [address] * Glucose, POCT (03/07/2024 8:33 PM CDT) Glucose, POCT, B 80 70 - 140 mg/dL 03/07/2024 8:34 PM CDT PCLX Site ARTLINE 03/07/2024 8:34 PM CDT PCLX Last Intake NPO 03/07/2024 8:34 PM CDT PCLX Blood 03/07/2024 8:33 PM CDT 03/07/2024 8:35 PM CDT Unknown Provider LAB POCT ORDERABLES- MANUAL Performing Organization Address City/[facility]/ZIP Co de Phone Number POC [facility] [address] [place] [address], [place] [facility] [address] [place] [address] * Glucose, POCT (03/07/2024 5:36 PM CDT) Glucose, POCT, B 94 70 - 140 mg/dL 03/07/2024 5:43 PM CDT PCLX Site ARTLINE 03/07/2024 5:43 PM CDT PCLX Last Intake 2-3 hours 03/07/2024 5:43 PM CDT PCLX Blood 03/07/2024 5:36 PM CDT 03/07/2024 5:44 PM CDT Unknown Provider LAB POCT ORDERABLES- MANUAL Performing Organization Address City/[facility]/ZIP Co de Phone Number POC [facility] [address] [place] [address], [facility] PCLX [facility] P[facility] [address] [place] [address] * CT Abdomen Pelvis with IV Contrast [...] with Dr. Rufus Ba at 03/07/2024 1:45PM. Neel Jennings APRNNLuis Fernando, M.S.N. ASHLEY G DIAGNOSTIC IMAGING PROCEDURES * Glucose, POCT (03/07/2024 11:49 AM CDT) Glucose, POCT, B 106 70 - 140 mg/dL 03/07/2024 11:51 AM CDT PCLX Site ARTLINE 03/07/2024 11:51 AM CDT PCLX Last Intake ContTubFdg 03/07/2024 11:51 AM CDT PCLX Blood 03/07/2024 11:4 9 AM CDT 03/07/2024 11:52 AM CDT Unknown Provider LAB POCT ORDERABLES- MANUAL POC [facility] [address] [facility] POC [address] [place] [address] * Apixaban, Anti-Xa, P (03/07/2024 11:13 AM CDT) Pathologist [facility] Apixaban, Anti-Xa, P 148 see interpretation ng/mL 03/07/2024 12:24 PM CDT DTL Comment: ----ADDITIONAL INFORMATION---- This test has been modified from the regional director of finance's instructions. Its performance characteristics were determined by [facility] in a manner consistent with CLIA requirements. [...] Rufus Meng LAB BLOOD NON A DD-ON [facility] [address] [place] [address], [place] DTL [facility] [address] [place] [address] * Potassium (03/07/2024 11:13 AM CDT) Potassium, P 5.2 3.6 - 5.2 mmol/L 03/07/2024 11:28 AM CDT STMA Blood (Blood, Venous) 03/07/2024 11:13 AM CDT 03/07/2024 11:17 AM CDT Rashad Sal APRN, C.N.P., M.S.NMay DELGADO BLOOD ADD-ON [facility] [address] [place] [address], [facility] STMA [facility] [address] [place] [address] * Glucose, POCT (03/07/2024 9:32 AM CDT) Pathologist [facility] Glucose, POCT, B 104 70 - 140 mg/dL 03/07/2024 9:34 AM CDT PCLX Site ARTLINE 03/07/2024 9:34 AM CDT PCLX Last Intake ContTubFdg 03/07/2024 9:34 AM CDT PCLX Blood 03/07/2024 9:32 AM CDT 03/07/2024 9:34 AM CDT Unknown Provider LAB POCT ORDERABLES- MANUAL POC [facility] [address] [place] [address], [facility] PCLX [facility] P[facility] [address] [place] [address] * (ABNORMAL) Cystatin C with Estimated GFR (03/07/2024 3:45 AM CDT) Pathologist [facility] eGFR by Cystatin C 78 >60 mL/min/BSA [...] - 1.03 mg/L 03/07/2024 9:31 AM CDT DTL Blood (Blood, Venous) 03/07/2024 3:45 AM CDT 03/07/2024 9:00 AM CDT Rufus Meng LAB BLOOD ADD-O N Performing Organization Address City/[facility] Co de Phone Number [facility] [address] [place] [address] * (ABNORMAL) Calcium, Ionized (03/07/2024 3:45 AM CDT) [facility] Calcium, Ionized, S 4.69 4.57 - 5.43 mg/dL 03/07/2024 4:31 AM CDT DTL Comment: ----ADDITIONAL INFORMATION---- This test has been modified from the regional director of finance's instructions. Its performance characteristics were determined by [facility] in a manner consistent with CLIA requirements. This test has not been cleared or approved by the U.S. Food and Drug Administration. pH for Ionized Calcium 7.51(H) 7.35 - 7.48 03/07/2024 4:31 AM CDT DTL Blood (Blood, Venous) 03/07/2024 3:45 AM CDT 03/07/2024 4:20 AM CDT Girish Pacheco APRN.N.P., D.N.P. LAB BLOOD NON ADD-ON Performing Organization Address City/[facility] Co de Phone Number [facility] [address] [place] [address], [facility] [address] [place] [address] * (ABNORMAL) CBC without Differential (03/07/2024 3:45 [...] Paredes P.A.-C., M.S. LAB BLO OD ADD-ON [facility] [address] [place] [address], [facility] [address] [place] [address] * (ABNORMAL) Basic Metabolic Panel (03/07/2024 3:45 [...] Paredes P.A.-C., M.S. LAB BLO OD ADD-ON [facility] [address] [place] [address], [facility] [address] [place] [address] * Glucose, POCT (03/06/2024 8:04 PM CDT) Glucose, POCT, B 89 70 - 140 mg/dL 03/06/2024 8:07 PM CDT PCLX Site ARTLINE 03/06/2024 8:07 PM CDT PCLX Last Intake ContTubFdg 03/06/2024 8:07 PM CDT PCLX Blood 03/06/2024 8:04 PM CDT 03/06/2024 8:08 PM CDT Unknown Provider LAB POCT ORDERABLES- MANUAL POC [facility] [address] [place] [address], [place] [facility] [address] [place] [address] * Glucose, POCT (03/06/2024 5:46 PM CDT) Glucose, POCT, B 103 70 - 140 mg/dL 03/06/2024 5:48 PM CDT PCLX Site ARTLINE 03/06/2024 5:48 PM CDT PCLX Last Intake ContTubFdg 03/06/2024 5:48 PM CDT PCLX Blood 03/06/2024 5:46 PM CDT 03/06/2024 5:48 PM CDT Unknown Provider LAB POCT ORDERABLES- MANUAL POC [facility] [address] [place] [address], [place] [facility] [address] [place] [address] * Glucose, POCT (03/06/2024 12:10 PM CDT) Glucose, POCT, B 92 70 - 140 mg/dL 03/06/2024 12:12 PM CDT PCLX Site ARTLINE 03/06/2024 12:12 PM CDT PCLX Last Intake ContTubFdg 03/06/2024 12:12 PM CDT PCLX Blood 03/06/2024 12:1 0 PM CDT 03/06/2024 12:13 PM CDT Unknown Provider LAB POCT ORDERABLES- MANUAL POC [facility] [address] [place] [address], [facility] PCLX [facility] P[facility] [address] [place] [address] * MR Brain without IV Contrast (03/06/2024 [...] * Rufinamide, S (03/06/2024 8:45 AM CDT) Rufinamide, S 14.5 5.0 - 30.0 mcg/mL 03/09/2024 2:03 PM CDT [facility] Comment: ----ADDITIONAL INFORMATION---- This test was developed and its performance characteristics determined by [facility] in a manner consistent with CLIA requirements. This test has not been cleared or approved by the U.S. Food and Drug Administration. Blood (Blood, Venous) 03/06/2024 8:45 AM CDT 03/06/2024 1:43 PM CDT Basil Miranda APRN, C.N.P. LAB BLOOD NON ADD-ON [facility] [address] [place] [address] [facility] [address] [place] [address] [place] [address] * (ABNORMAL) Levetiracetam Level (03/06/2024 8:45 AM CDT) Levetiracetam, S 86.7(H) 10.0 - 40.0 mcg/mL 03/06/2024 3:05 PM CDT [facility] Comment: ----ADDITIONAL INFORMATION---- This test was developed and its performance characteristics determined by [facility] in a manner consistent with CLIA requirements. This test has not been cleared or approved by the U.S. Food and Drug Administration. Blood (Blood, Venous) 03/06/2024 8:45 AM CDT 03/06/2024 1:11 PM CDT Neel Velasco APRNN.P. LAB BLOOD NON ADD-ON Performing Organization Address [facility] Co de Phone Number [facility] [address] [place] [address] [facility] [address] [place] [address] [place] [address] * Lamotrigine Level (03/06/2024 8:45 AM CDT) Lamotrigine, S 12.9 3.0 - 15.0 mcg/mL 03/06/2024 2:44 PM CDT [facility] Comment: ----ADDITIONAL INFORMATION---- This test was developed and its performance characteristics determined by [facility] in a manner consistent with CLIA requirements. This test has not been cleared or approved by the U.S. Food and Drug Administration. Blood (Blood, Venous) 03/06/2024 8:45 AM CDT 03/06/2024 1:11 PM CDT Bg Velasco APRNP. LAB BLOOD NON ADD-ON Performing Organization Address City/[facility] Co de Phone Number [facility] [address] [place] [address] [facility] [address] [place] [address] [place] [address] * (ABNORMAL) Clobazam and Metabolite (03/06/2024 8:45 AM CDT) Clobazam 221.0 30 - 300 ng/mL 03/07/2024 1:39 AM CDT [facility] N-desmethylclobazam 5420.0(H) 300 - 3000 ng/mL 03/07/2024 1:39 AM CDT [facility] Comment: ----ADDITIONAL INFORMATION---- This test was developed and its performance characteristics determined by [facility] in a manner consistent with CLIA requirements. This test has not been cleared or approved by the U.S. Food and Drug Administration. Blood (Blood, Venous) 03/06/2024 8:45 AM CDT 03/06/2024 1:40 PM CDT Basil Miranda APRN, C.N.P. LAB BLOOD ADD-ON [facility] [address] [place] [address] [facility] [address] [place] [address] [place] [address] * Glucose, POCT (03/06/2024 8:13 AM CDT) [facility] Signature Glucose, POCT, B 107 70 - 140 mg/dL 03/06/2024 8:15 AM CDT PCLX Site ARTLINE 03/06/2024 8:15 AM CDT PCLX Last Intake ContTubFdg 03/06/2024 8:15 AM CDT PCLX Blood 03/06/2024 8:13 AM CDT 03/06/2024 8:15 AM CDT Unknown Provider LAB POCT ORDERABLES- MANUAL Performing Organization Address City/[facility] Co de Phone Number POC [facility] [address] [place] [address], [facility] PCLX [facility] [address] [place] [address] * EEG (03/06/2024 7:26 AM CDT) Narrative [...] Paredes P.A.-C. MEfe LAB BLO OD ADD-ON [facility] [address] [place] [address], [facility] DTL [facility] [address] [place] [address] * (ABNORMAL) Basic Metabolic Panel (03/06/2024 6:01 AM CDT) Potassium, S 4.2 3.6 - 5.2 mmol/L [...] 03/06/2024 6:41 AM CDT Ivory Paredes P.A.-C. MMaySMay LAB BLO OD ADD-ON Performing Organization Address City/[facility]/ZIP Co de Phone Number [facility] [address] [place] [address], [facility] [address] [place] [address] * (ABNORMAL) Felbamate (Felbatol) Level (03/06/2024 6:01 AM CDT) Felbamate (Felbatol), S 181.6(H) 30.0 - 80.0 mcg/mL 03/06/2024 3:36 PM CDT [facility] Comment: ----ADDITIONAL INFORMATION---- This test was developed and its performance characteristics determined by [facility] in a manner consistent with CLIA requirements. This test has not been cleared or approved by the U.S. Food and Drug Administration. Blood (Blood, Venous) 03/06/2024 6:01 AM CDT 03/06/2024 9:28 AM CDT Basil Miranda APRN, C.N.P. LAB BLOOD NON ADD-ON Performing Organization Address City/[facility] Co de Phone Number [facility] [address] [place] [address] [facility] [address] [place] [address] [place] [address] * (ABNORMAL) Albumin (03/06/2024 5:56 AM CDT) Albumin, S 2.6(L) 3.5 - 5.0 g/dL 03/06/2024 5:24 PM CDT DTL Blood (Blood, Venous) 03/06/2024 5:56 AM CDT 03/06/2024 5:00 PM CDT Amrita Liz APRN, C.N.P., D.N.P. LAB BLOOD ADD-ON Performing Organization Address City/[facility]/ZIP Co de Phone Number [facility] [address] [place] [address], [facility] [address] [place] [address] * Glucose, POCT (03/05/2024 7:35 PM CDT) Glucose, POCT, B 97 70 - 140 mg/dL 03/05/2024 7:37 PM CDT PCLX Site ARTLINE 03/05/2024 7:37 PM CDT PCLX Last Intake ContTubFdg 03/05/2024 7:37 PM CDT PCLX Blood 03/05/2024 7:35 PM CDT 03/05/2024 7:37 PM CDT Unknown Provider LAB POCT ORDERABLES- MANUAL Performing Organization Address City/[facility]/ZIP Co de Phone Number POC [facility] [address] [place] [address], [facility] PCLX [facility] POC [address] [place] [address] * Glucose, POCT (03/05/2024 5:32 PM CDT) Glucose, POCT, B 94 70 - 140 mg/dL 03/05/2024 5:33 PM CDT PCLX Site ARTLINE 03/05/2024 5:33 PM CDT PCLX Last Intake ContTubFdg 03/05/2024 5:33 PM CDT PCLX Blood 03/05/2024 5:32 PM CDT 03/05/2024 5:34 PM CDT Unknown Provider LAB POCT ORDERABLES- MANUAL Performing Organization Address City/[facility]/ZIP Co de Phone Number [facility] [address] [place] [address], [place] [facility] POC [address] [place] [address] * Glucose, POCT (03/05/2024 7:13 AM CDT) Glucose, POCT, B 113 70 - 140 mg/dL 03/05/2024 7:14 AM CDT PCLX Site ARTLINE 03/05/2024 7:14 AM CDT PCLX Last Intake ContTubFdg 03/05/2024 7:14 AM CDT PCLX Blood 03/05/2024 7:13 AM CDT 03/05/2024 7:14 AM CDT Unknown Provider LAB POCT ORDERABLES- MANUAL POC [facility] [address] [place] [address], [facility] PCLX [facility] POC [address] [place] [address] * (ABNORMAL) Phosphorus Inorganic (03/05/2024 5:19 AM CDT) Phosphorus (Inorganic), S 4.7(H) 2.5 - 4.5 mg/dL 03/05/2024 6:46 AM CDT DTL Blood (Blood, Venous) 03/05/2024 5:19 AM CDT 03/05/2024 6:18 AM CDT Basil Miranda APRN, C.N.P. LAB BLOOD ADD-ON Performing Organization Address City/[facility]/ZIP Co de Phone Number [facility] [address] [place] [address], [facility] [address] [place] [address] * Magnesium (03/05/2024 5:19 AM CDT) Magnesium, S 1.7 1.7 - 2.3 mg/dL 03/05/2024 6:46 AM CDT DT Blood (Blood, Venous) 03/05/2024 5:19 AM CDT 03/05/2024 6:18 AM CDT Basil Miranda APRN, C.N.P. LAB BLOOD ADD-ON Performing Organization Address City/[facility]/ZIP Co de Phone Number [facility] [address] [place], [place] [address] [address] [place] [address] * (ABNORMAL) CBC without Differential (03/05/2024 5:19 AM CDT) Hemoglobin 8.3(L) 13.2 - 16.6 g/dL 03/05/2024 [...] Paredes P.A.-C., M.S. LAB BLO OD ADD-ON [address] [address], [facility] [place] [address] * (ABNORMAL) Basic Metabolic Panel (03/05/2024 5:19 AM CDT) [facility] Potassium, S 4.8 3.6 - 5.2 mmol/L [...] LAB BLO OD ADD-ON Performing Organization Address City/[facility]/ZIP Co de Phone Number [facility] [address] [place] [address], [facility] DTL [facility] [address] [place] [address] * Glucose, POCT (03/04/2024 7:48 PM CDT) [facility] Glucose, POCT, B 91 70 - 140 mg/dL 03/04/2024 7:49 PM CDT PCLX Site ARTLINE 03/04/2024 7:49 PM CDT PCLX Last Intake ContTubFdg 03/04/2024 7:49 PM CDT PCLX Blood 03/04/2024 7:48 PM CDT 03/04/2024 7:50 PM CDT Unknown Provider LAB POCT ORDERABLES- MANUAL POC [facility] [address] [place] [address], [facility] PCLX [facility] POC [address] [place] [address] * Glucose, POCT (03/04/2024 5:25 PM CDT) Glucose, POCT, B 99 70 - 140 mg/dL 03/04/2024 5:26 PM CDT PCLX Site ARTLINE 03/04/2024 5:26 PM CDT PCLX Last Intake ContTubFdg 03/04/2024 5:26 PM CDT PCLX Blood 03/04/2024 5:25 PM CDT 03/04/2024 5:27 PM CDT Unknown Provider LAB POCT ORDERABLES- MANUAL Performing Organization Address City/[facility]/ZIP Co de Phone Number POC [facility] [address] [place] [address], [facility] PCLX [facility] POC [address] [place] [address] * Glucose, POCT (03/04/2024 11:46 AM CDT) Glucose, POCT, B 97 70 - 140 mg/dL 03/04/2024 11:47 AM CDT PCLX Site ARTLINE 03/04/2024 11:47 AM CDT PCLX Last Intake ContTubFdg 03/04/2024 11:47 AM CDT PCLX Blood 03/04/2024 11:4 6 AM CDT 03/04/2024 11:48 AM CDT Unknown Provider LAB POCT ORDERABLES- MANUAL Performing Organization Address City/[facility]/ZIP Co de Phone Number POC [facility] [address] [place] [address], [place] [facility] POC [address] [place] [address] * Glucose, POCT (03/04/2024 7:22 AM CDT) Glucose, POCT, B 106 70 - 140 mg/dL 03/04/2024 7:24 AM CDT PCLX Site ARTLINE 03/04/2024 7:24 AM CDT PCLX Last Intake ContTubFdg 03/04/2024 7:24 AM CDT PCLX Blood 03/04/2024 7:22 AM CDT 03/04/2024 7:24 AM CDT Unknown Provider LAB POCT ORDERABLES- MANUAL Performing Organization Address City/[facility]/ZIP Co de Phone Number POC [facility] [address] [place] [address], [facility] PCLX [facility] [address] [place] [address] * (ABNORMAL) CBC without Differential (03/04/2024 3:27 AM CDT) Pathologist [facility] Hemoglobin 8.9(L) 13.2 - 16.6 g/dL 03/04/2024 [...] LAB BLO OD ADD-ON Performing Organization Address City/[facility]/ZIP Co de Phone Number [facility] [address] [place] [address], [facility] DTL [facility] [address] [place] [address] * (ABNORMAL) Basic Metabolic Panel (03/04/2024 3:27 AM CDT) Pathologist [facility] Potassium, S 4.5 3.6 - 5.2 mmol/L [...] Paredes P.A.-C., M.S. LAB BLO OD ADD-ON [facility] [address] [place] [address], [facility] [address] [place] [address] * Phosphorus Inorganic (03/04/2024 3:27 AM CDT) Phosphorus (Inorganic), S 4.2 2.5 - 4.5 mg/dL 03/04/2024 4:21 AM CDT DTL Blood (Blood, Venous) 03/04/2024 3:27 AM CDT 03/04/2024 3:58 AM CDT Neel Velasco APRNNMayPMay LAB BLOOD ADD-ON [facility] [address] [place] [address], [place] DTL [facility] [address] [place] [address] * Glucose, POCT (03/03/2024 8:48 PM CDT) Glucose, POCT, B 91 70 - 140 mg/dL 03/03/2024 8:49 PM CDT PCLX Site ARTLINE 03/03/2024 8:49 PM CDT PCLX Last Intake ContTubFdg 03/03/2024 8:49 PM CDT PCLX Blood 03/03/2024 8:48 PM CDT 03/03/2024 8:49 PM CDT Unknown Provider LAB POCT ORDERABLES- MANUAL [facility] [address] [place] [address], [place] [facility] POC [address] [place] [address] * Glucose, POCT (03/03/2024 5:23 PM CDT) Glucose, POCT, B 93 70 - 140 mg/dL 03/03/2024 5:24 PM CDT PCLX Site ARTLINE 03/03/2024 5:24 PM CDT PCLX Last Intake ContTubFdg 03/03/2024 5:24 PM CDT PCLX Blood 03/03/2024 5:23 PM CDT 03/03/2024 5:25 PM CDT Unknown Provider LAB POCT ORDERABLES- MANUAL POC [facility] [address] [place] [address], [place] [facility] P[facility] [address] [place] [address] * Glucose, POCT (03/03/2024 12:23 PM CDT) Glucose, POCT, B 99 70 - 140 mg/dL 03/03/2024 12:24 PM CDT PCLX Site ARTLINE 03/03/2024 12:24 PM CDT PCLX Blood 03/03/2024 12:2 3 PM CDT 03/03/2024 12:25 PM CDT Unknown Provider LAB POCT ORDERABLES- MANUAL Performing Organization Address City/[facility] Co de Phone Number POC [facility] [address] [place] [address], [facility]CL[facility] POC [address] [place] [address] * Glucose, POCT (03/03/2024 7:38 AM CDT) Pathologist [facility] Glucose, POCT, B 84 70 - 140 mg/dL 03/03/2024 7:39 AM CDT PCLX Site ARTLINE 03/03/2024 7:39 AM CDT PCLX Last Intake NPO 03/03/2024 7:39 AM CDT PCLX Blood 03/03/2024 7:38 AM CDT 03/03/2024 7:40 AM CDT Unknown Provider LAB POCT ORDERABLES- MANUAL Performing Organization Address [facility] de Phone Number [facility] [address] [place] [address], [facility] PCLX [facility] POC [address] [place] [address] * (ABNORMAL) CBC without Differential (03/03/2024 4:03 AM CDT) Pathologist [facility] Hemoglobin 9.3(L) 13.2 - 16.6 g/dL 03/03/2024 [...] Paredes P.A.-C., M.S. LAB BLO OD ADD-ON [facility] [address] [place] [address], [facility] [address] [place] [address] * (ABNORMAL) Basic Metabolic Panel (03/03/2024 4:03 AM CDT) Pathologist [facility] Potassium, S 4.3 3.6 - 5.2 mmol/L [...] LAB BLO OD ADD-ON Performing Organization Address City/[facility]/ZIP Co de Phone Number [facility] [address] [place] [address], [facility] DTL [facility] [address] [place] [address] * Glucose, POCT (03/02/2024 9:59 PM CDT) Glucose, POCT, B 98 70 - 140 mg/dL 03/02/2024 10:00 PM CDT PCLX Blood 03/02/2024 9:59 PM CDT 03/02/2024 10:01 PM CDT Unknown Provider LAB POCT ORDERABLES- MANUAL Performing Organization Address [facility] de Phone Number POC [facility] [address] [place] [address], [facility] P[facility]X [facility] POC [address] [place] [address] * Patient Status (03/02/2024 5:15 PM CDT) FIO2 0.30 0.21=AIR 03/02/2024 5:1 8 PM CDT STMA Device Vent 03/02/2024 5:1 8 PM CDT STMA Blood 03/02/2024 5:15 PM CDT 03/02/2024 5:18 PM CDT Gardenia Gordillo APRN C.N.P., M.S.N. LAB BLOOD NON ADD-ON Performing Organization Address City/[facility]/ZIP Co de Phone Number [facility] [address] [place] [address] * Blood Gas without Coox, Arterial (03/02/2024 [...] APRN, C.N.P., M.S.N. LAB BLOOD NON ADD-ON [facility] [address] [place] [address] * Glucose, POCT (03/02/2024 5:13 PM CDT) Pathologist [facility] Glucose, POCT, B 86 70 - 140 mg/dL 03/02/2024 5:41 PM CDT PCLX Site ARTLINE 03/02/2024 5:41 PM CDT PCLX Blood 03/02/2024 5:13 PM CDT 03/02/2024 5:42 PM CDT Unknown Provider LAB POCT ORDERABLES- MANUAL POC [facility] [address] [place] [id number], [facility]X [facility] POC [address] [place] [address] * DX Chest Portable Post PICC Placement [...] * Ammonia (03/02/2024 12:50 PM CDT) Pathologist [facility] Ammonia, P 27 <=30 mcmol/L 03/02/2024 1:36 PM CDT DTL Blood (Blood, Arterial) 03/02/2024 12:50 PM CDT 03/02/2024 1:06 PM CDT Gardenia Gordillo APRN, C.N.P., M.S.N. LAB BLOOD NON ADD-ON [facility] [address] [place] [address], [facility] DTL [facility] [address] [place] [address] * Glucose, POCT (03/02/2024 12:29 PM CDT) Pathologist [facility] Glucose, POCT, B 111 70 - 140 mg/dL 03/02/2024 12:31 PM CDT PCLX Site ARTLINE 03/02/2024 12:31 PM CDT PCLX Last Intake ContTubFdg 03/02/2024 12:31 PM CDT PCLX Blood 03/02/2024 12:2 9 PM CDT 03/02/2024 12:31 PM CDT Unknown Provider LAB POCT ORDERABLES- MANUAL POC [facility] [address] [place] [address], [facility] P[facility]X [facility] POC [address] [place] [address] * Place peripherally inserted central catheter (PICC) [...] - 30.0 mcg/mL 03/04/2024 2:22 PM CDT [facility] Comment: ----ADDITIONAL INFORMATION---- This test was developed and its performance characteristics determined by [facility] in a manner consistent with CLIA requirements. This test has not been cleared or approved by the U.S. Food and Drug Administration. Blood (Blood, Arterial) 03/02/2024 11:18 AM CDT 03/02/2024 6:03 PM CDT Gardenia Gordillo APRN, C.N.P., M.S.N. LAB BLOOD NON ADD-ON [facility] [address] [place] [address] [facility] [address] [place] [address] [place] [address] * (ABNORMAL) Levetiracetam Level (03/02/2024 11:18 AM CDT) Pathologist [facility] Levetiracetam, S 134.2(H) 10.0 - 40.0 mcg/mL 03/03/2024 11:29 AM CDT [facility] Comment: ----ADDITIONAL INFORMATION---- This test was developed and its performance characteristics determined by [facility] in a manner consistent with CLIA requirements. This test has not been cleared or approved by the U.S. Food and Drug Administration. Blood (Blood, Arterial) 03/02/2024 11:18 AM CDT 03/02/2024 2:48 PM CDT Neel Donald APRNNAlexandra., M.S.N. LAB BLOOD NON ADD-ON [facility] [address] [place] [address] [facility] [address] [place] [address] [place] [address] * Lamotrigine Level (03/02/2024 11:18 AM CDT) Lamotrigine, S 19.4 3.0 - 15.0 mcg/mL 03/03/2024 12:03 PM CDT [facility] Comment: ----ADDITIONAL INFORMATION---- This test was developed and its performance characteristics determined by [facility] in a manner consistent with CLIA requirements. This test has not been cleared or approved by the U.S. Food and Drug Administration. Blood (Blood, Arterial) 03/02/2024 11:18 AM CDT 03/02/2024 2:48 PM CDT Gardenia Gordillo APRN, C.N.P., M.S.N. LAB BLOOD NON ADD-ON Performing Organization Address [facility] Co de Phone Number [facility] [address] [place] [address] [facility] [address] [place] [address] [place] [address] * (ABNORMAL) Felbamate (Felbatol) Level (03/02/2024 11:18 AM CDT) Felbamate (Felbatol), S 246.2(H) 30.0 - 80.0 mcg/mL 03/03/2024 3:14 PM CDT [facility] Comment: ----ADDITIONAL INFORMATION---- This test was developed and its performance characteristics determined by [facility] in a manner consistent with CLIA requirements. This test has not been cleared or approved by the U.S. Food and Drug Administration. Blood (Blood, Arterial) 03/02/2024 11:18 AM CDT 03/02/2024 6:03 PM CDT Gardenia Gordillo APRN, C.N.P., M.S.N. LAB BLOOD NON ADD-ON Performing Organization Address City/[facility]/ZIP Co de Phone Number [facility] [address] [place] [address] [facility] [address] [place] [address] [place] [address] * (ABNORMAL) Clobazam and Metabolite (03/02/2024 11:18 AM CDT) Pathologist [facility] Clobazam 269.0 30 - 300 ng/mL 03/04/2024 7:58 AM CDT [facility] N-desmethylclobazam 5810.0(H) 300 - 3000 ng/mL 03/04/2024 7:58 AM CDT [facility] Comment: ----ADDITIONAL INFORMATION---- This test was developed and its performance characteristics determined by [facility] in a manner consistent with CLIA requirements. This test has not been cleared or approved by the U.S. Food and Drug Administration. Blood (Blood, Arterial) 03/02/2024 11:18 AM CDT 03/03/2024 3:02 PM CDT Girish Donald APRN.N.Thierry., M.S.N. LAB BLOOD ADD-ON [facility] [address] [place] [address] [facility] [address] [place] [address] [place] [address] * (ABNORMAL) CBC without Differential (03/02/2024 10:35 AM CDT) Pathologist [facility] Hemoglobin 9.6(L) 13.2 - 16.6 g/dL 03/02/2024 [...] - 9.6 x10(9)/L 03/02/2024 11:13 AM CDT [facility] Blood (Blood, Venous) 03/02/2024 10:35 AM CDT 03/02/2024 10:45 AM CDT Ivory Paredes P.A.-C. MMayS. LAB BLO OD ADD-ON [facility] [address] [place] [address], [facility] [address] [place] [address] [facility] [address] [place] [address] * CT Head without IV Contrast (03/02/2024 [...] LAB POCT ORDERABLES- MANUAL Performing Organization Address City/[facility]/ZIP Co de Phone Number POC [facility] [address] [place] [address], [facility] PCLX [facility] POC [address] [place] [address] * Patient Status (03/02/2024 3:46 AM CDT) Pathologist [facility] FIO2 0.35 0.21=AIR 03/02/2024 3:5 0 AM CDT ST[facility] Device Vent 03/02/2024 3:5 0 AM CDT [facility] Blood 03/02/2024 3:46 AM CDT 03/02/2024 3:50 AM CDT Ivory Paredes P.A.-C., M.S. LAB BLO OD NON ADD-ON Performing Organization Address City/[facility]/ZIP Co de Phone Number [facility] [address] [place] [address], [facility] STMA [facility] [address] [place] [address] * (ABNORMAL) Blood Gas without Coox, Arterial [...] P.A.-C., M.S. LAB BLO OD NON ADD-ON [facility] [address] [place] [address], [facility] [address] [place] [address] * (ABNORMAL) Comprehensive Metabolic Panel (03/02/2024 3:46 [...] Gordillo APRN, C.N.P., M.S.N. LAB BLOOD ADD-ON [facility] [address] [place] [address], [facility] [address] [place] [address] * (ABNORMAL) CBC without Differential (03/02/2024 3:46 [...] Gordillo APRN C.N.P., M.S.N. [place] [address], [facility] [address] [place] [address] * (ABNORMAL) Cystatin C with Estimated GFR [...] AM CDT Wes Meng LAB BLOOD ADD-ON [facility] [address] [place] [address], [facility] [address] [place] [address] * Cell Count and Differential, Bronchoalveolar Lavage [...] This test has been modified from the regional director of finance's instructions. Its performance characteristics were determined by [facility] in a manner consistent with CLIA requirements. This test has not been cleared or approved by the U.S. Food and Drug Administration. Volume Recovered 25 mL 03/02/20 3:03 AM CDT DHPM Alveolar Macrophage 15 % 03/02 4:08 AM CDT PM Comment: ----REFERENCE VALUE---- The reference range and other method performance specifications have not been established for this body fluid. The test result must be integrated into the clinical context for interpretation. Lymphocytes 3 % 03/02/2024 4:08 AM CDT PM Comment: ----REFERENCE VALUE---- The reference range and other method performance specifications have not been established for this body fluid. The test result must be integrated into the clinical context for interpretation. Neutrophils 76 % 03/02/2024 4:08 AM CDT [facility] Comment: ----REFERENCE VALUE---- The reference range and other method performance specifications have not been established for this body fluid. The test result must be integrated into the clinical context for interpretation. Other Cells 6 % 03/02/2024 4:08 AM CDT [facility] Comment: ----REFERENCE VALUE---- The reference range and other method performance specifications have not been established for this body fluid. The test result must be integrated into the clinical context for interpretation. Comment See Comment 03/02/2024 10:55 AM CDT [facility] Comment:Others are lining ce lls.Bacteria present. Fluid 03/02/2024 2:38 AM CDT 03/02/2024 2:38 AM CDT Ivory Paredes P.A.-C. MMayS. LAB BOD Y FLUIDS AND STOOLS ORDERABLES Performing Organization Address [facility]/ZIP Co de Phone Number [facility] [address] [place] [address] * Bacterial Culture, Aerobic + Susceptibility, Respiratory (03/02/2024 12:44 AM CDT) Bacterial Culture, Aerobic, Resp No growth after 2 days of incubation. 03/04/2024 10:44 AM CDT [facility] Lavage (Bronchoalveolar Lavage) 03/02/2024 12:44 AM CDT 03/02/2024 1:36 AM CDT Comment:Specimen Source Site : Lavage Ivory Paredes P.A.-C. M.S. LAB FARIHA ROBIOLOGY - GENERAL ORDERABLES Performing Organization Address City/[facility]/ZIP Co de Phone Number [facility] [address] [place] [address], [place] [address] * Legionella Antigen, Urine (03/02/2024 12:44 AM CDT) Legionella Ag, U Negative Negative 03/02/20 24 2:20 PM CDT [facility] Comment: Negative for L. pneumophila serogroup 1 [...] ROBIOLOGY - GENERAL ORDERABLES Performing Organization Address City/[facility] Co de Phone Number [facility] [address] [place] [address] [facility] [address] [place] [address] [place] [address] * Streptococcus pneumoniae Antigen, Urine (03/02/2024 12:44 AM CDT) [facility] Streptococcus pneumoniae Ag, U Negative Negative 03/02/2024 2:42 PM CDT [facility] Comment: Negative for pneumococcal pneumonia, suggesting no [...] ROBIOLOGY - GENERAL ORDERABLES Performing Organization Address City/[facility]/ZIP Co de Phone Number [facility] [address] [place] [address] [facility] [address] [place] [address] [place] [address] * DX Chest Portable 1 View (03/01/2024 [...] in the lower lungs. Ivory Paredes P.A.-C. M.S. IMG QUITA GNOSTIC IMAGING PROCEDURES * Patient Status (03/01/2024 11:08 PM CDT) Pathologist [facility] FIO2 0.40 0.21=AIR 03/01/2024 11: 15 PM CDT ST[facility] Device Vent 03/01/2024 11: 15 PM CDT [facility] Blood 03/01/2024 11:0 8 PM CDT 03/01/2024 11:15 PM CDT Ivory Paredes P.A.-C. MMayS. LAB BLO OD NON ADD-ON Performing Organization Address City/[facility]/ZIP Co de Phone Number [facility] [address] [place] [address], [facility] STMA [facility] [address] [place] [address] * Bacteria / Christopher Culture, Blood #1 (03/01/2024 11:08 PM CDT) [facility] Bacteria/Isabell da Culture, Blood No growth after 5 days of incubation. 03/07/2024 1:02 AM CDT DTL Blood (Blood, Peripheral Draw) 03/01/2024 11:08 PM CDT 03/01/2024 11:26 PM CDT Comment:Specimen Source Site : Blood Ivory Paredes P.A.-C. M.S. LAB FARIHA ROBIOLOGY - GENERAL ORDERABLES Performing Organization Address City/[facility]/ZIP Co de Phone Number [facility] [address] [place] [address], [facility] DTL [facility] [address] [place] [address] * (ABNORMAL) Blood Gas without Coox, Arterial [...] P.A.-C., M.S. LAB BLO OD NON ADD-ON [facility] [address] [place] [address], [facility] [address] [place] [address] * Cystatin C with Estimated GFR (03/01/2024 [...] LAB BLO OD ADD-ON Performing Organization Address [facility] Co de Phone Number [facility] [address] [place] [address] * Bacteria / Christopher Culture, Blood #2 (03/01/2024 11:07 PM CDT) Bacteria/Isabell da Culture, Blood No growth after 5 days of incubation. 03/07/2024 1:02 AM CDT DT Blood (Blood, Peripheral Draw) 03/01/2024 11:07 PM CDT 03/01/2024 11:25 PM CDT Comment:Specimen Source Site : Blood Ivory Paredes P.A.-C., M.S. LAB FARIHA ROBIOLOGY - GENERAL ORDERABLES Performing Organization Address [facility] de Phone Number [facility] [address] [place] [address], [place] [address] * Invasive Line (03/01/2024 10:55 PM CDT) [...] Wes Meng PROCEDURE/MINOR RANDOLPH RGICAL ORDERABLES * NV BRONCHOSCOPY W ALVEOLAR LAVAGE (03/01/2024 10:30 PM [...] PHYLICIA participated or performed the procedure. The cardiology clinical consultant participated in or was aware of the procedure. Ivory Paredes P.A.-C., M.SMay PROCEDU RE/MINOR SURGICAL ORDERABLES * NV INTUB W ETT, LDA ANE ENDOTRACHEAL AIRWAY [...] ETT location: oral VL device: glide scope [place] scope blade size: 4 Tube size: 7.5 [...] PHYLICIA participated or performed the procedure. The cardiology clinical consultant participated in or was aware of [...] P.A.-C., M.S. LAB BLO OD NON ADD-ON [facility] [address] [place], [place] [address] [address] [place] [address] * (ABNORMAL) Blood Gas without Coox, Venous [...] P.A.-C., M.S. LAB BLO OD NON ADD-ON [facility] [address] [place], [place] [address] [address] [place] [address] * DX Chest Portable 1 View (03/01/2024 [...] (ABNORMAL) pH (03/01/2024 8:59 PM CDT) Pathologist [facility] pH 7.29(L) 7.35 - 7.45 pH 03/01/2024 9:10 PM CDT ST[facility] Blood 03/01/2024 8:59 PM CDT 03/01/2024 9:07 PM CDT Ivory Paredes P.A.-C. MMayS. LAB HIS TORICAL ORDERS [facility] [address] [place] [address], [facility] [address] [place] [address] * Type and Screen (with Reflex Antibody ID) (03/01/2024 8:59 PM CDT) Pathologist [facility] ABORh O Pos Not applicable 03/01/2024 9:30 PM CDT STRM Antibody Screen Negative Negative 03/01/2024 9:49 PM CDT STRM Type & Screen Expiration 03/04/2024 23:59 03/01/2024 9:30 PM CDT STRM Testing Location [place] DEFAULT 03/01/2024 9:09 PM CDT STRM Blood (Blood, Venous) 03/01/2024 8:59 PM CDT 03/01/2024 9:09 PM CDT Ivory Paredes P.A.-C., M.S. LAB BLO OD BANK TEST ORDERABLES [facility] [address] [place] [address], [facility] [address] [place] [address] * (ABNORMAL) Hepatic Function Panel (03/01/2024 8:59 [...] Paredes P.A.-C., M.S. LAB BLO OD ADD-ON [facility] [address] [place] [address], [facility] [address] [place] [address] * Lactate (03/01/2024 8:59 PM CDT) Lactate, P 1.4 0.5 - 2.2 mmol/L 03/01/2024 9:22 PM CDT ST[facility] Blood (Blood, Venous) 03/01/2024 8:59 PM CDT 03/01/2024 9:07 PM CDT Ivory Paredes P.A.-C., M.S. LAB BLO OD NON ADD-ON Performing Organization Address City/[facility]/ZIP Co de Phone Number [facility] [address] [place] [address], [facility] [address] [place] [address] * Calcium, Ionized (03/01/2024 8:59 PM CDT) Calcium, Ionized, B 5.17 4.65 - 5.30 mg/dL 03/01/2024 9:10 PM CDT ST[facility] Blood (Blood, Venous) 03/01/2024 8:59 PM CDT 03/01/2024 9:07 PM CDT Ivory Paredes P.A.-C., M.S. LAB BLO OD NON ADD-ON Performing Organization Address City/[facility]/ZIP Co de Phone Number [facility] [address] [place] [address] * Phosphorus Inorganic (03/01/2024 8:59 PM CDT) Phosphorus (Inorganic), S 3.0 2.5 - 4.5 mg/dL 03/01/2024 10:19 PM CDT DTL Blood (Blood, Venous) 03/01/2024 8:59 PM CDT 03/01/2024 9:43 PM CDT Ivory Paredes P.A.-C., M.S. LAB BLO OD ADD-ON Performing Organization Address City/[facility]/ZIP Co de Phone Number [facility] [address] [place] [address], [facility] [address] [place] [address] * Magnesium (03/01/2024 8:59 PM CDT) Magnesium, S 1.8 1.7 - 2.3 mg/dL 03/01/2024 10:19 PM CDT DTL Blood (Blood, Venous) 03/01/2024 8:59 PM CDT 03/01/2024 9:43 PM CDT Ivory Paredes P.A.-C., M.S. LAB BLO OD ADD-ON [facility] [address] [place] [address], [facility] [address] [place] [address] * (ABNORMAL) Basic Metabolic Panel (03/01/2024 8:59 [...] 03/01/2024 9:07 PM CDT Ivory Paredes P.A.-C., M.SMay LAB BLO OD ADD-ON Performing Organization Address City/[facility]/ZIP Co de Phone Number [facility] [address] [place] [address], [facility] [address] [place] [address] * (ABNORMAL) CBC without Differential (03/01/2024 8:59 [...] - 9.6 x10(9)/L 03/01/2024 10:01 PM CDT [facility] Blood (Blood, Venous) 03/01/2024 8:59 PM CDT 03/01/2024 9:07 PM CDT Ivory Paredes P.A.-C. M.SMay LAB BLO OD ADD-ON Performing Organization Address City/[facility]/ZIP Co de Phone Number [facility] [address] [place] [address], [facility] STMA [facility] [address] [place] [address] [facility] [address] [place] [address] * Glucose, POCT (03/01/2024 8:53 PM CDT) [facility] Glucose, POCT, B 97 70 - 140 mg/dL 03/01/2024 8:56 PM CDT PCLX Site Capillary 03/01/2024 8:56 PM CDT PCLX Blood 03/01/2024 8:53 PM CDT 03/01/2024 8:57 PM CDT Unknown Provider LAB POCT ORDERABLES- MANUAL [facility] [address] [place] [address], [facility] PCLX [facility] POC [address] [place] [address] * Glucose, POCT (03/01/2024 5:12 PM CDT) [facility] Glucose, POCT, B 79 70 - 140 mg/dL 03/01/2024 5:14 PM CDT PCLX Site Capillary 03/01/2024 5:14 PM CDT PCLX Last Intake ContTubFdg 03/01/2024 5:14 PM CDT PCLX Blood 03/01/2024 5:12 PM CDT 03/01/2024 5:14 PM CDT Unknown Provider LAB POCT ORDERABLES- MANUAL [facility] [address] [place] [address], [facility] PCLX [facility] POC [address] [place] [address] * Lactate (03/01/2024 2:05 PM CDT) Pathologist [facility] Lactate, P 1.4 0.5 - 2.2 mmol/L 03/01/2024 2:24 PM CDT [facility] Blood (Blood, Venous) 03/01/2024 2:05 PM CDT 03/01/2024 2:10 PM CDT Gardenia Fawad Gordillo APRN, C.N.P., M.S.N. LAB BLOOD NON ADD-ON [facility] [address] [place] [address], [place] STMA [facility] [address] [place] [address] * (TTE) 2D ECHO DOPPLER COLOR AND [...] Unknown Provider LAB POCT ORDERABLES- MANUAL POC [facility] [address] [place] [address], [facility] PCLX [facility] POC [address] [place] [address] * DX Chest Portable 1 View (03/01/2024 [...] LAB BLOOD NON ADD-ON Performing Organization Address City/[facility] Co de Phone Number [facility] [address] [place], [place] [address] [place] [address] 200 [place] [address] * (ABNORMAL) Blood Gas without Coox, Arterial [...] 9:51 AM CDT 03/01/2024 9:56 AM CDT Neel Dnoald APRNNAlexandra., M.S.N. LAB BLOOD NON ADD-ON Performing Organization Address City/[facility]/ZIP Co de Phone Number [facility] [address] [place] [address], [facility] [address] [place] [address] * Glucose, POCT (03/01/2024 9:06 AM CDT) Glucose, POCT, B 81 70 - 140 mg/dL 03/01/2024 9:08 AM CDT PCLX Site Capillary 03/01/2024 9:08 AM CDT PCLX Blood 03/01/2024 9:06 AM CDT 03/01/2024 9:08 AM CDT Unknown Provider LAB POCT ORDERABLES- MANUAL Performing Organization Address City/[facility]/ZIP Co de Phone Number POC [facility] [address] [place] [address], [facility] PCLX [facility] POC [address] [place] [address] * (ABNORMAL) CBC without Differential (03/01/2024 4:33 [...] 4:33 AM CDT 03/01/2024 5:14 AM CDT Girish Love APRN.N.P., D.N.P. LAB BLOOD ADD-ON [facility] [address] [place] [address], [facility] DTL [facility] [address] [place] [address] * (ABNORMAL) Basic Metabolic Panel (03/01/2024 4:33 [...] 4:33 AM CDT 03/01/2024 5:30 AM CDT Erasmo Lloyd APRN, C.N.P., D.N.P. LAB BLOOD ADD-ON [facility] [address] [place] [address], [place] [facility] [address] [place] [address] * Glucose, POCT (03/01/2024 12:15 AM CDT) Glucose, POCT, B 99 70 - 140 mg/dL 03/01/2024 12:17 AM CDT PCLX Site Capillary 03/01/2024 12:17 AM CDT PCLX Blood 03/01/2024 12:1 5 AM CDT 03/01/2024 12:17 AM CDT Unknown Provider LAB POCT ORDERABLES- MANUAL POC [facility] [address] [place] [address], [facility] PCL[facility] [address] [place] [address] * Glucose, POCT (02/29/2024 10:56 PM CDT) Glucose, POCT, B 85 70 - 140 mg/dL 02/29/2024 10:58 PM CDT PCLX Site Capillary 02/29/2024 10:58 PM CDT PCLX Blood 02/29/2024 10:5 6 PM CDT 02/29/2024 10:58 PM CDT Unknown Provider LAB POCT ORDERABLES- MANUAL POC [facility] [address] [place] [address], [facility] [address] [place] [address] * Glucose, POCT (02/29/2024 10:28 PM CDT) Glucose, POCT, B 84 70 - 140 mg/dL 02/29/2024 10:29 PM CDT PCLX Site Capillary 02/29/2024 10:29 PM CDT PCLX Blood 02/29/2024 10:2 8 PM CDT 02/29/2024 10:29 PM CDT Unknown Provider LAB POCT ORDERABLES- MANUAL POC [facility] [address] [place] [address], [facility] [address] [place] [address] * Glucose, POCT (02/29/2024 9:40 PM CDT) Glucose, POCT, B 112 70 - 140 mg/dL 02/29/2024 9:42 PM CDT PCLX Site Capillary 02/29/2024 9:42 PM CDT PCLX Blood 02/29/2024 9:40 PM CDT 02/29/2024 9:42 PM CDT Unknown Provider LAB POCT ORDERABLES- MANUAL POC [facility] [address] [place] [address], [facility] [address] [place] [address] * (ABNORMAL) Glucose, POCT (02/29/2024 9:11 PM CDT) Glucose, POCT, B 60(L) 70 - 140 mg/dL 02/29/2024 9:14 PM CDT PCLX Site Capillary 02/29/2024 9:14 PM CDT PCLX Blood 02/29/2024 9:11 PM CDT 02/29/2024 9:14 PM CDT Unknown Provider LAB POCT ORDERABLES- MANUAL Performing Organization Address City/[facility]/ZIP Co de Phone Number [facility] [address] [place] [address], [facility] [address] [place] [address] * Glucose, POCT (02/29/2024 6:50 PM CDT) Glucose, POCT, B 98 70 - 140 mg/dL 03/01/2024 3:25 PM CDT PCLX Site Capillary 03/01/2024 3:25 PM CDT PCLX Blood 02/29/2024 6:50 PM CDT 03/01/2024 3:25 PM CDT Unknown Provider LAB POCT ORDERABLES- MANUAL POC [facility] [address] [place] [address], [place] [facility] [address] [place] [address] * Glucose, POCT (02/29/2024 6:28 PM CDT) Glucose, POCT, B 72 70 - 140 mg/dL 03/01/2024 3:25 PM CDT PCLX Site Capillary 03/01/2024 3:25 PM CDT PCLX Blood 02/29/2024 6:28 PM CDT 03/01/2024 3:25 PM CDT Unknown Provider LAB POCT ORDERABLES- MANUAL POC [facility] [address] [place] [address], [facility] [address] [place] [address] * (ABNORMAL) Glucose, POCT (02/29/2024 5:56 PM CDT) Glucose, POCT, B 64(L) 70 - 140 mg/dL 03/01/2024 3:25 PM CDT PCLX Site Capillary 03/01/2024 3:25 PM CDT PCLX Blood 02/29/2024 5:56 PM CDT 03/01/2024 3:25 PM CDT Unknown Provider LAB POCT ORDERABLES- MANUAL POC [facility] [address] [place] [address], [facility] [address] [place] [address] * (ABNORMAL) Glucose, POCT (02/29/2024 5:39 PM CDT) Glucose, POCT, B 60(L) 70 - 140 mg/dL 03/01/2024 3:25 PM CDT PCLX Site Capillary 03/01/2024 3:25 PM CDT PCLX Last Intake NPO 03/01/2024 3:25 PM CDT PCLX Blood 02/29/2024 5:39 PM CDT 03/01/2024 3:25 PM CDT Unknown Provider LAB POCT ORDERABLES- MANUAL Performing Organization Address City/[facility]/ZIP Co de Phone Number [facility] [address] [place] [address], [facility] [address] [place] [address] * (ABNORMAL) Glucose, POCT (02/29/2024 5:15 PM CDT) Glucose, POCT, B 50(L) 70 - 140 mg/dL 02/29/2024 5:17 PM CDT PCLX Site Capillary 02/29/2024 5:17 PM CDT PCLX Last Intake NPO 02/29/2024 5:17 PM CDT PCLX Blood 02/29/2024 5:15 PM CDT 02/29/2024 5:18 PM CDT Unknown Provider LAB POCT ORDERABLES- MANUAL Performing Organization Address City/[facility]/ZIP Co de Phone Number [facility] [address] [place] [address], [facility] [address] [place] [address] * Gram Stain (02/29/2024 12:37 PM CDT) Pathologist [facility] Gram Stain No organisms seen. White blood cells, Many. Epithelial cells, Moderate. 02/29/2024 2:53 PM CDT DTL Tracheal Secretions 02/29/2024 12:37 PM CDT 02/29/2024 1:41 PM CDT Comment:Specimen Source Site : Sputum Erasmo Lloyd APRN, C.N.P., D.N.P. LAB MICROBIOLOGY - GENERAL ORDERABLES Performing Organization Address City/[facility]/ZIP Co de Phone Number [facility] [address] [place] [address], [facility] DTL [facility] [address] [place] [address] * (ABNORMAL) Bacterial Culture, Aerobic + Susceptibility, [...] C.N.P., D.N.P. LAB MICROBIOLOGY - GENERAL ORDERABLES [facility] [address] [place] [address], [facility] [address] [place] [address] * CT Chest Angiogram and Pulmonary Arteries [...] using the FDA-Cleared FilmArray Respiratory Panel 2.1 ([employer]). Swab (Nasopharynx) 02/29/2024 9:12 AM CDT 02/29/2024 9:12 AM CDT Erasmo Lloyd MODEL AND MOLD MAKER, C.N.P., D.N.P. LAB MICROBIOLOGY - GENERAL ORDERABLES Performing Organization Address City/[facility]/ZIP Co de Phone Number [facility] [address] [place], [place] [address] [place] [address] * Staph aureus / MRSA, Nasal, PCR (02/29/2024 8:05 AM CDT) Staphylococcus aureus, PCR Negative Negative 02/29/2024 11:46 AM CDT DTL MRSA, PCR Negative Negative 02/29/2024 11:46 AM CDT DTL Swab (Nares) 02/29/2024 8:05 AM CDT 02/29/2024 9:12 AM CDT Erasmo Lloyd Neel BUSTOSN.P., D.N.P. LAB MICROBIOLOGY - GENERAL ORDERABLES Performing Organization Address [facility] Co de Phone Number [facility] [address] [place], [place] [address] [place] [address] * Interpretation of Outside US Vascular (02/29/2024 6:05 AM CDT) Anatomical Region Laterality Modality Ultrasound RST LOS, Ultrasou nd ARZ LOS, Ultrasound FLA LOS, Procedural, Other, Vascular N/A Ultrasound Impressions 02/29/2024 10:22 AM CDT Positive for acute DVT in the mid to lower femoral vein through popliteal vein. Result discussed with BETO Nguyen ([id number]) by Dr. Schulte on 02/29/2024 at 0950 hours. Narrative 02/29/2024 10:22 AM CDT EXAM: ??INTERPRETATION OF OUTSIDE US VASCULAR. Bilateral lower extremity venous ultrasound performed on 02/28/2024 at outside facility. Interpretation provided without the benefit of real-time scanning or discussion with the woodworker. COMPARISON: ??None FINDINGS: ?? RIGHT: The common [...] benefit of real-time scanning ordiscussion with the woodworker. COMPARISON: None FINDINGS: RIGHT: The common femoral, [...] through poplitealvein. Result discussed with BETO Nguyen ([id number]) by Dr. Schulte on02/29/2024 at 0950 hours. Erasmo Lloyd APRN, C.N.P., D.N.P. [facility] PROCEDURES * (ABNORMAL) Basic Metabolic Panel [...] CDT 02/29/2024 6:03 AM CDT Girish Love APRN.N.P., D.N.P. LAB BLOOD ADD-ON [facility] [address] [address], [facility] [place] [address] * (ABNORMAL) CBC without Differential (02/29/2024 4:48 [...] Girish Love APRN.N.P., D.N.P. LAB BLOOD ADD-ON [facility] [address] [place] [address], [facility] [address] [place] [address] * Glucose, POCT (02/28/2024 9:10 PM CDT) Glucose, POCT, B 87 70 - 140 mg/dL 02/28/2024 9:11 PM CDT PCLX Site Capillary 02/28/2024 9:11 PM CDT PCLX Blood 02/28/2024 9:10 PM CDT 02/28/2024 9:11 PM CDT Unknown Provider LAB POCT ORDERABLES- MANUAL POC [facility] [address] [place] [address], [facility] PCLX [facility] [address] [place] [address] * Patient Status (02/28/2024 5:45 PM CDT) O2 Flow 7.0 L/min 02/28/2024 5:50 PM CDT STMA Device CFM 02/28/2024 5:50 PM CDT STMA Spont. breaths/min 14 02/28/2024 5:50 PM CDT STMA Blood 02/28/2024 5:45 PM CDT 02/28/2024 5:50 PM CDT Girish Love APRN.N.P., D.N.P. LAB BLOOD NON ADD-ON Performing Organization Address [facility] Co de Phone Number [facility] [address] [place] [address], [facility] [address] [place] [address] * (ABNORMAL) Blood Gas without Coox, Arterial [...] 5:45 PM CDT 02/28/2024 5:50 PM CDT Girish Love APRN.N.P., D.N.P. LAB BLOOD NON ADD-ON Performing Organization Address City/[facility] Co de Phone Number [facility] [address] [place] [address], [facility] [address] [place] [address] * Patient Status (02/28/2024 3:30 PM CDT) FIO2 0.40 0.21=AIR 02/28/2024 3:35 PM CDT STMA Device CFM 02/28/2024 3:35 PM CDT STMA Spont. breaths/min 13 02/28/2024 3:35 PM CDT STMA Blood 02/28/2024 3:30 PM CDT 02/28/2024 3:35 PM CDT Girish Love APRN.N.P., D.N.P. LAB BLOOD NON ADD-ON Performing Organization Address City/[facility]/ZIP Co de Phone Number [facility] [address] [place], [place] [id number] [place] [address] [address] [place] [address] * (ABNORMAL) Blood Gas without Coox, Venous (02/28/2024 3:30 PM CDT) [facility] pO2, Venous, B 26 Not applicable mm [...] Love APRN.N.P., D.N.P. LAB BLOOD NON ADD-ON Performing Organization Address City/[facility]/ZIP Co de Phone Number [facility] [address] [place] [address], [facility] [address] [place] [address] * (ABNORMAL) CBC without Differential (02/28/2024 3:29 PM CDT) [facility] Hemoglobin 12.0(L) 13.2 - 16.6 g/dL 02/28/2024 [...] Lloyd APRN C.N.P., D.N.P. LAB BLOOD ADD-ON [facility] [address] [place] [address], [facility] [address] [place] [address] * (ABNORMAL) Basic Metabolic Panel (02/28/2024 3:29 PM CDT) [facility] Potassium, P 4.2 3.6 - 5.2 [...] Lloyd APRN, C.N.P., D.N.P. LAB BLOOD ADD-ON [facility] [address] [place] [address], [facility] [address] [place] [address] documented in this encounter Visit Diagnoses Not on filedocumented in this encounter Admitting Diagnoses Diagnosis Acute Respiratory Failure With Hypoxia (HCC) documented in this encounter Administered Medications Active Administered Medications - up to 3 most recent administrations Medication Order MAR Action Action Date Dose Rate Site acetaminophen suppository 650 mg (TylenoL) 650 mg, rectal, Every 6 hours PRN, mild pain or score 1-3 of 10, fever, headaches, Starting on 03/12/24 at 1800 Given 03/13/2024 5:14 AM CDT 650 mg acetic acid 0.25 % irrigation solution (sterile) 1 Application 1 Application, topical, 2 times daily, First dose on 03/13/24 at 2100, Place 0.25% Acetic acid on [...] Starting on Wed03/10/24 at 1730 fat emulsion oqi-cik-[id number] & fish oil infusion 50 g (SMOFlipid) [...] 5:00 PM CDT 0.04 Units/min 12 mL/hr Inactive Administered Medications - up to 3 most recent administrations Medication Order MAR Action Action Date Dose Rate Site cellulose, oxidized 2 x 4 pad (Surgicel) As needed, Starting on Wed03/10/24 at 1650, Intra-Op Given 03/10/2024 4:50 PM CDT 1 each Abdominal Tissue documented in this encounter Active and Recently [...] NPO) 1323 (New Bag - Provider: Megan Lin, R.N.) acetic acid 0.25 % irrigation solution (sterile) 1 Application (CANCELED) 1 Application, topical, 3 times daily, First dose on Wed03/02/24 at 2100, Place 0.25% Acetic acid on Wypalls??, apply on top of ointment/cream as soon as applied and leave in place for 2 hours. 0811 (Given - Provider: Megan Lin, R.N.)1330 (Given - Provider: Megan Lin R.Violet.)2015 (Given - Provider: Zayda Travis RMayN.) 0950 (Given - Provider: Savannah Pelayo RMayN.) acetic acid 0.25 % irrigation solution (sterile) 1 Application 1 Application, topical, 2 times daily, First dose on Wed03/13/24 at 2100, Place 0.25% Acetic acid on Wypalls??, apply on top of cream as soon as cream is applied and leave in place for 2 hours. 2011 (Given - Provider: Jerzy Frost RMayN.) 0900 (Due)2100 (Due) caspofungin 50 mg in NaCl 0.9% IVPB (Cancidas)(Linked Group 1) 50 mg, intravenous, at 257 mL/hr, Administer over 60 Minutes, Every 24 hours at 1800, First dose on Wed03/13/24 at 1800, Indications: Intra-abdominal infection, healthcare associated 1725 (New Bag - Provider: Savannah Pelayo RJuli) 1800 (Due) caspofungin 70 mg in NaCl 0.9% IVPB (Cancidas) (COMPLETED)(Linked Group 1) 70 mg, intravenous, at 260 mL/hr, Administer over 60 Minutes, Once, On Wed03/13/24 at 0930, For 1 dose, Loading dose, Indications: Intra-abdominal infection, healthcare associated 1056 (New Bag - Provider: Savannah Pelayo RHarika. - Comment: lack of IV access) cefepime [...] associated 2300 (New Bag - Provider: Jerzy Frost, R.N. - Comment: re-timed dose for 8 hours [...] 1537 (New Bag - Provider: Savannah Pelayo RMayN.) cefTRIAXone in dextrose (iso osm) IVPB 2 g (Rocephin) (CANCELED) 2 g, intravenous, at 200 mL/hr, Administer over 15 Minutes, Every 24 hours, First dose on Wed03/10/24 at 1230, For 6 doses, Drug Monitoring Program: Pharmacist to adjust medication dosing based on indication and drug clearance factors., Indications: Intra-abdominal infection, healthcare associated 1157 (New Bag - Provider: Megan Lin RJuli) chlorhexidine 0.12 % mouthwash 15 mL (Peridex) 15 mL, swish & spit, 2 times daily, First dose on Tata 03/02/24 at 0900, Swab oral cavity while on ventilator. Avoid brushing or use of mouthwash for at least 2 hours after application. Discontinue after extubation. 851 (Given - Provider: Megan Lin RHarika.)2014 (Given - Provider: Zayda Travis RMayNMay) 918 (Given - Provider: Savannah Pelayo RMayNMay)2011 (Given - Provider: Jerzy Frost RMayNMay) 0900 (Due)2100 (Due) fat emulsion bod-gjc-kpatc & fish oil infusion 50 g (SMOFlipid) 50 g, intravenous, at 10.4 mL/hr, Administer over 24 Hours, Every 24 hours, First dose on Wed03/13/24 at 2100, Use a 1.2 micron filter. When fat emulsion is ordered along with a CPN containing iron dextran, administer fat emulsion and CPN through separate lines. 2041 (New Bag - Provider: Jerzy Frost RMayN.)2100 (Rate/Dose Verify - Provider: Jerzy Frost RMayN.)2200 (Rate/Dose Verify - Provider: Jerzy Frost RMayN.)2300 (Rate/Dose Verify - Provider: Jerzy Frost R.N.) [...] mg or greater: IVPB at 4 mg/minute. 1542 (Given - Provider: aSvannah Pelayo R.N.) furosemide injection 40 mg (Lasix) (COMPLETED) 40 mg, intravenous, Once, On Wed03/13/24 at 1945, For 1 dose, Adults: Doses less than 120 mg: IV push over 20 mg/minute. Doses 120 mg or greater: IVPB at 4 mg/minute. Peds/Neonates: Doses less than 120 mg over 0.5 mg/kg/minute. Doses 120 mg or greater: IVPB at 4 mg/minute. 1935 (Given - Provider: Jerzy Frost R.N.) heparin (porcine) injection 5,000 Units 5,000 Units, [...] hours, First dose (after last modification) on 03/11/24 at 1900 0619 (Given - Provider: Zayda Travis R.N.)1818 (Given - Provider: Megan Lin R.N.) 0601 (Given - Provider: Zayda Travis R.N.)1834 (Given - Provider: Savannah Pelayo R.N.) 0700 (Due)1900 (Due) Lactated Ringer's bolus 1,000 mL (COMPLETED) 1,000 mL, intravenous, at 1,000 mL/hr, Administer over 1 Hours, Once, On 03/12/24 at 0130, For 1 dose 0109 (New Bag - Provider: rIon Cai RMayNMay) levETIRAcetam 2,000 mg in NaCl 0.9% IVPB (Keppra) 2,000 mg, intravenous, at 210 mL/hr, Administer over 20 Minutes, Every 12 hours, First dose (after last reorder) on 03/12/24 at 1045, Do NOT refrigerate. 1044 (New Bag - Provider: Megan Lin R.N.)2149 (New Bag - Provider: Zayda Travis R.N.) 1016 (New Bag - Provider: Savannah Pelayo RJuli)2205 (New Bag - Provider: Jerzy Frost RMayNMay) 1045 (Due)2245 (Due) LORazepam injection 2 mg (Ativan) 2 mg, intravenous, Every 6 hours, First dose on 03/12/24 at 0900, Shortage on injection, use oral when possible For intravenous use, dilute with equal volume of 0.9% NS 0944 (Given - Provider: Megan Lin R.N.)1528 (Given - Provider: Megan Lin R.N.)2010 (Given - Provider: Zayda Travis R.N.) 0239 (Given - Provider: Zayda Travis R.N.)0836 (Given - Provider: Savannah Pelayo R.N.)1543 (Given - Provider: Savannah Pelayo R.N.)2018 (Given - Provider: Jerzy Frost R.N.) 021 (Given - Provider: Jerzy Frost R.N.)0900 (Due)1500 (Due)2100 (Due) LORazepam injection 2 mg [...] R.N.)1220 (New Bag - Provider: Megan Lin R.N.)1936 (New Bag - Provider: Zayda Travis R.N.) 0336 (New Bag - Provider: Zayda S Thaddeus, R.N.)1250 (New Bag - Provider: Savannah Pelayo RMayN.)1936 (New Bag - Provider: Jerzy Frost R.N.) 0344 (New Bag - Provider: Jerzy Frost RMayN.)1230 (Due)2030 (Due) nystatin 100,000 unit/gram cream 1 Application (Mycostatin) (CANCELED) 1 Application, topical, 3 times daily, First dose (after last modification) on Wed03/06/24 at 1400, Apply cream to affected tissue around the PEJ tube and buttocks to groin. If using ointment and cream, mix 50/50 and apply as directed. 0811 (Given - Provider: Megan Lin RHarika.)1330 (Given - Provider: Megan Lin R.Violet.)2014 (Given - Provider: Zayda Travis R.N.) 0950 (Given - Provider: Savannah Pelayo RMayN.) nystatin 100,000 unit/gram cream 1 Application (Mycostatin) 1 Application, topical, 2 times daily, First dose on Wed03/13/24 at 2100, Apply cream to affected area(s). 2011 (Given - Provider: Jerzy Frost RMayN.) 0900 (Due)2100 (Due) nystatin 100,000 unit/gram powder 1 Application (Nystop) 1 Application, topical, 2 times daily, First dose on Wed03/13/24 at 2300, apply to affected area between treatments 2203 (Given - Provider: Jerzy Frost RMayN.) 1100 (Due)2300 (Due) pantoprazole injection 40 mg (Protonix) 40 mg, intravenous, Daily, First dose (after last modification) on [facility] 03/02/24 at 1730, Administer IV push over 2 minutes. Add 10 mL NS to 40 mg vial for a final concentration of 4 mg/mL. 0857 (Given - Provider: Megan Lin RHarika.) 0817 (Given - Provider: Savannah Pelayo RMayN.) 0900 (Due) PHENobarbital 695 mg in NaCl [...] Joan PRATT)1354 (Given - Provider: Savannah Pelayo R.N.)2027 (Given - Provider: Jerzy Frost R.N. - [...] 1852 (New Bag - Provider: Savannah Pelayo R.N.) 0217 (New Bag - Provider: Jerzy Frost R.N.)1100 (Due)1900 (Due) vancomycin in NaCl 0.9% IVPB [...] Provider: Nico ChesterN.)0500 (Rate/Dose Verify - Provider: Zayda Travis R.N.)0600 (Rate/Dose Verify - Provider: Nico ChesterN.)0700 (Rate/Dose Verify - Provider: Fawad Godwin.N.)0721 (Handoff - Provider: Zayda Travis R.N.)0800 (Rate/Dose Verify - Provider: Fawad Godwin.N.)0900 (Rate/Dose Verify - Provider: Fawad Godwin.N.)1000 (Rate/Dose [...] Provider: Nico ChesterN.)2000 (Rate/Dose Verify - Provider: Zayda Travis R.N.) adult/child > 40 kg central parenteral nutrition (CPN) infusion () intravenous, at 45.8 mL/hr, Administer over 24 Hours, Continuous PN, Starting on 03/12/24 at 2100, For 24 hours, Use a 0.22 micron filter., Indication: Ileus 2126 (New Bag - Provider: Zayda S Thaddeus, R.N.)2200 (Rate/Dose Verify - Provider: Zayda Travis, R.N.)2300 (Rate/Dose Verify - Provider: Zayda Travis, R.N.) 0000 (Rate/Dose Verify - Provider: Zayda Travis, R.N.)0100 (Rate/Dose Verify - Provider: Zayda Travis, R.N.)0200 (Rate/Dose Verify - Provider: Zayda Travis, R.N.)0300 (Rate/Dose Verify - Provider: Zayda Travis, R.N.)0400 (Rate/Dose Verify - Provider: Zayda Travis, R.N.)0500 (Rate/Dose Verify - Provider: Zayda Travis, R.N.)0600 (Rate/Dose Verify - Provider: Zayda Travis [...] Jerzy Frost R.N.)2200 (Rate/Dose Verify - Provider: Nico BaxterNMay)2300 (Rate/Dose Verify - Provider: Jerzy Frost R.N.) 0000 (Rate/Dose Verify - Provider: Nico BaxterN.)0100 (Rate/Dose Verify - Provider: Nico BaxterNMay)0200 (Rate/Dose Verify - Provider: Nico BaxterN.)0300 (Rate/Dose Verify - Provider: Jerzy Frost R.N.) [...] Lin R.N.)0900 (Rate/Dose Verify - Provider: Megan G Lin, R.N.)1000 (Rate/Dose Verify - Provider: Megan Lin [...] Travis R.N.)0800 (Rate/Dose Verify - Provider: Savannah R Pelayo, R.N.)0900 (Rate/Dose Verify - Provider: Savannah Pelayo [...] RMayN.)2000 (Rate/Dose Verify - Provider: Jerzy Frost RMayN.)2100 (Rate/Dose Verify - Provider: Jerzy Frost RMayN.)2200 (Rate/Dose Verify - Provider: Jerzy Frost R.N.)2300 (Rate/Dose Verify - Provider: Jerzy Frost R.N.)2334 (Stopped - Provider: Nico BaxterNMay) ketamine 2 mg/mL in NaCl 0.9 % [...] Zayda Travis R.N.)0200 (Rate/Dose Verify - Provider: Nico ChesterN.)0300 (Rate/Dose Verify - Provider: Nico ChesterN.)0400 (Rate/Dose Verify - Provider: Fawad Chester.N.)0500 (Rate/Dose Verify - Provider: Fawad Chester.N.)0600 (Rate/Dose Verify - Provider: Fawad Chester.N.)0700 (Rate/Dose Verify - Provider: Nico GodwinN.)0723 (Handoff - Provider: Nico ChesterN.)0800 (Rate/Dose Verify - Provider: Fawad Godwin.N.)0845 (Rate/Dose Change - Provider: Fawad Godwin.N.)0900 (Rate/Dose Verify - Provider: Fawad Godwin.N.)0948 (Canceled Entry - Provider: Nico GodwinN.)1000 (Rate/Dose Verify - Provider: Nico GodwinN.)1003 (Rate/Dose Change - Provider: Fawad Godwin.N.)1018 (Rate/Dose Change - Provider: Fawad Godwin.N.)1100 (Rate/Dose Verify - Provider: Fawad Godwin.N.)1200 (Rate/Dose Verify - Provider: Fawad Godwin.N.)1300 (Rate/Dose Verify - Provider: Megan Lin R.N.)1400 (Rate/Dose Verify - Provider: Fawad Godwin.N.)1500 (Rate/Dose Verify - Provider: Fawad Godwin.N.)1600 (Rate/Dose Verify - Provider: Megan Lin R.N.)1623 (Rate/Dose Change - Provider: Fawad Godwin.N.)1642 (Rate/Dose Change - Provider: Fawad Godwin.N.)1657 (Rate/Dose Change - Provider: Megan Lin R.N.)1700 (Rate/Dose Verify - Provider: Megan Lin R.N.)1723 (Rate/Dose Change - Provider: Megan Lin R.N.)1744 (Rate/Dose Change - Provider: Fawad Godwin.N.)1800 (Rate/Dose Verify - Provider: Megan Lin R.N.)1802 (Rate/Dose Change - Provider: Megan Lin R.N.)1833 (Rate/Dose Change - Provider: Megan Lin R.N.)1900 (New Bag - Provider: Megan Lin R.N.)2000 (Rate/Dose Verify - Provider: Zayda Travis R.N.)2005 (Stopped - Provider: Zayda Travis R.N.) Lactated [...] R.N.)0600 (Rate/Dose Verify - Provider: Zayda Travis R.N.)0616 (New Bag - Provider: Zayda Travis R.N.)0700 (Rate/Dose Verify - Provider: Megan Lin R.N.)0722 (Handoff - Provider: Zayda Travis R.N.)0800 (Rate/Dose Verify - Provider: Nico GodwinN.)0900 (Rate/Dose Verify - Provider: Fawad Godwin.N.)1000 (Rate/Dose Verify - Provider: Fawad Godwin.N.)1100 (Rate/Dose Verify - Provider: Fawad Godwin.N.)1200 (Rate/Dose Verify - Provider: Fawad Godwin.N.)1300 (Rate/Dose Verify - Provider: Nico GodwinN.)1400 (Rate/Dose Verify - Provider: Megan G Lin, R.N.)1500 (Rate/Dose Verify - Provider: Megan Lin R.N.)1600 (Rate/Dose Verify - Provider: Megan Lin R.N.)1700 (Rate/Dose Verify - Provider: Megan Lin R.N.)1800 (Rate/Dose Verify - Provider: Megan Lin R.N.)1900 (Rate/Dose Verify - Provider: Zayda Travis R.N.)2000 (Rate/Dose Verify - Provider: Zayda Travis R.N.)2006 (Rate/Dose Change - Provider: Zayda Travis R.N.)2100 (Rate/Dose Verify - Provider: Zayda Travis R.N.)2200 (Rate/Dose Verify - Provider: Zayda Travis, R.N.)2300 (Rate/Dose Verify - Provider: Zayda Travis R.N.) 0000 (Rate/Dose Verify - Provider: Zayda Travis R.N.)0100 (Rate/Dose Verify - Provider: Zayda Travis, R.N.)0200 (Rate/Dose Verify - Provider: Zayda Travis, R.N.)0300 (Rate/Dose Verify - Provider: Zayda Travis, R.N.)0400 (Rate/Dose Verify - Provider: Zayda Travis, R.N.)0500 (Rate/Dose Verify - Provider: Zayda Travis R.N.)0600 (Rate/Dose Verify - Provider: Zayda Travis, R.N.)0700 (Rate/Dose Verify - Provider: Zayda Travis R.N.)0721 (Handoff - Provider: Zayda Travis R.N.)0800 (Rate/Dose Verify - Provider: Savannah Pelayo RHarika.)0900 (Rate/Dose Verify - Provider: Savannah Pelayo RHarika.)1000 (Rate/Dose Verify - Provider: Savannah Pelayo RHarika.)1100 (Rate/Dose Verify - Provider: Savannah Pelayo RHarika.)1200 (Rate/Dose Verify - Provider: Nico McgheeNMay)1246 (New Bag - Provider: Savannah Pelayo R.N.)1400 (Rate/Dose Verify - Provider: Savannah Pelayo R.N.)1500 (Rate/Dose Verify - Provider: Nico McgheeNMay)1600 (Rate/Dose Verify - Provider: Savannah Pelayo R.N.)1700 (Rate/Dose Verify - Provider: Savannah Pelayo R.N.)1800 (Rate/Dose Verify - Provider: Savannah Pelayo R.N.)1923 (Stopped - Provider: Jerzy Frost RMayNMay) NaCl [...] Zayda Travis R.N.)0110 (Rate/Dose Change - Provider: Iron Cai R.N.)0200 (Rate/Dose Verify - Provider: Zayda Travis R.N.)0214 (Rate/Dose Change - Provider: Zayda Travis R.N.)0220 (Rate/Dose Change - Provider: Zayda Travis, [...] Travis R.N.)0621 (Rate/Dose Change - Provider: Zayda Travis R.N.)0700 (Rate/Dose Verify - Provider: Megan Lin R.N.)0722 (Handoff - Provider: Zayda Travis R.N.)0800 (Rate/Dose Verify - Provider: Megan Lin R.N.)0803 (Rate/Dose Change - Provider: Megan Lin R.N.)0846 (New Bag - Provider: Fawad Godwin.N.)0900 (Rate/Dose Verify - Provider: Fawad Godwin.N.)1000 (Rate/Dose Verify - Provider: Megan Lin R.N.)1017 (Rate/Dose Change - Provider: Megan Lin R.N.)1033 (Rate/Dose Change - Provider: Fawad Godwin.N.)1037 (Rate/Dose Change - Provider: Megan Lin R.N.)1100 (Rate/Dose Verify - Provider: Megan Lin R.N.)1136 (Rate/Dose Change - Provider: Megan Lin R.N.)1200 (Rate/Dose Verify - Provider: Megan Lin R.N.)1219 (Rate/Dose Change - Provider: Megan Lin R.N.)1233 (Rate/Dose Change - Provider: Megan Lin R.N.)1240 (Rate/Dose Change - Provider: Megan Lin R.N.)1300 (Rate/Dose Verify - Provider: Megan Lin R.N.)1341 (Rate/Dose Change - Provider: Megan Lin R.N.)1400 [...] R.N.)1800 (Rate/Dose Verify - Provider: Megan Lin R.N.)1818 (Stopped - Provider: Fawad Godwin.N.) 0532 (New Bag - Provider: Zayda Travis R.N.)0551 (Rate/Dose Change - Provider: Nico ChesterN.)0600 (Rate/Dose Verify - Provider: Fawad Chester.N.)0608 (Rate/Dose Change - Provider: Fawad Chester.N.)0651 (Rate/Dose Change - Provider: Fawad Chester.N.)0700 (Rate/Dose Verify - Provider: Zayda Travis R.N.)0704 (Rate/Dose Change - Provider: Fawad Chester.N.)0721 (Handoff - Provider: Zayda Travis R.N.)0800 (Rate/Dose Verify - Provider: Savannah Pelayo RMayN.)0900 (Rate/Dose Verify - Provider: Savannah Pelayo R.N.)0950 (Rate/Dose Change - Provider: Savannah Pelayo R.N.)1000 (Rate/Dose Change - Provider: Savannah Pelayo R.N.)1015 (Rate/Dose Change - Provider: Savannah Pelayo R.N.)1020 (Stopped - Provider: Savannah Pelayo R.N.)195 (New Bag - Provider: Jerzy Frost R.N.)2008 (Rate/Dose Change - Provider: Jerzy Frost, R.N.)2010 (Stopped - Provider: Jerzy Frost R.N.)2025 (Restarted - Provider: Jerzy Frost R.N.)2031 (Rate/Dose Change - Provider: Jerzy Frost R.N.)2041 (Stopped - Provider: Jerzy Frost R.N.)204 (Rate/Dose Change - Provider: Jerzy Frost, R.N.)2100 (Rate/Dose Verify - Provider: Jerzy Frost, R.N.)2200 (Rate/Dose Verify - Provider: Jerzy Frost, R.N.)2300 (Rate/Dose Verify - Provider: Jerzy Frost, R.N.) 0000 (Rate/Dose Verify - Provider: Jerzy Frost, R.N.)0026 (Stopped - Provider: Jerzy Frost, R.N.)0149 (Restarted - Provider: Jerzy Frost, R.N.)0152 (Rate/Dose Change - Provider: Jerzy Frost, R.N.)0155 (Rate/Dose Change - Provider: Jerzy Frost, R.N.)0200 (Rate/Dose Verify - Provider: Jerzy Frost, R.N.)0217 (Stopped - Provider: Jerzy Frost, R.N.) propofol 10 mg/mL infusion (Diprivan) (CANCELED) [...] Provider: Nico ChesterN.)0400 (Rate/Dose Verify - Provider: Fawad Chester.N.)0500 (Rate/Dose Verify - Provider: Nico ChesterN.)0600 (Rate/Dose Verify - Provider: Nico ChesterN.)0700 (Rate/Dose Verify - Provider: Megan Lin R.N.)0722 [...] Megan Lin R.N.)1014 (Rate/Dose Change - Provider: Nico GodwinN.)1018 (Rate/Dose Change - Provider: Megan Lin R.N.)1100 (Rate/Dose Verify - Provider: Megan Lin RMayN.)1130 (New Bag - Provider: Nico GodwinN.)1200 (Rate/Dose Verify - Provider: Megan Lin R.N.)1300 (Rate/Dose Verify - Provider: Nico GodwinN.)1400 (Rate/Dose Verify - Provider: Megan Lin R.N.)1500 (Rate/Dose Verify - Provider: Megan Lin R.N.)1559 (New Bag - Provider: Nico GodwinN.)1600 (Rate/Dose Verify - Provider: Megan Lin R.N.)1622 (Rate/Dose Change - Provider: Fawad Godwin.N.)1653 (Rate/Dose Change - Provider: Nico GodwinN.)1700 (Rate/Dose Verify - Provider: Megan Lin R.N.)1721 (Rate/Dose Change - Provider: Megan Lin R.N.)1743 (Rate/Dose Change - Provider: Megan Lin R.N.)1750 (Rate/Dose Change - Provider: Megan Lin R.N.)1800 (Rate/Dose Verify - Provider: Megan Lin R.N.)1808 (Rate/Dose Change - Provider: Megan Lin R.N.)1832 (Rate/Dose Change - Provider: Nico GodwinN.)1853 (Stopped - Provider: Nico GodwinNMay) vasopressin 20 unit/100 mL (0.2 unit/mL) in D5W 100 mL infusion (Pitressin) 0.04 Units/min (12 mL/hr), intravenous, Continuous, Starting on 03/12/24 at 0230, 20 units in 100 mL 0219 (New Bag - Provider: Zayda Travis R.N.)0300 (Rate/Dose Verify - Provider: Zayda Travis R.N.)0400 (Rate/Dose Verify - Provider: Zayda S Thaddeus, R.N.)0500 (Rate/Dose Verify - Provider: Zayda Travis R.N.)0600 (Rate/Dose Verify - Provider: Zayda Travis R.N.)0617 (New Bag - Provider: Zayda Travis R.N.)0700 (Rate/Dose Verify - Provider: Megan Lin R.N.)0722 (Handoff - Provider: Fawad Chester.N.)0800 (Rate/Dose Verify - Provider: Megan Lin R.N.)0900 (Rate/Dose Verify - Provider: Megan Lin R.N.)1000 (Rate/Dose Verify - Provider: Megan Lin R.N.)1016 (Stopped - Provider: Megan Lin R.N.)1033 (Restarted - Provider: Megan Lin R.N.)1100 (Rate/Dose Verify - Provider: Megan Lin R.N.)1126 (Stopped - Provider: Megan Lin R.N.)1143 (Restarted - Provider: Megan Lin R.N.)1200 (Rate/Dose Verify - Provider: Megan Lin R.N.)1233 (Stopped - Provider: Megan Lin R.N.)1258 (Restarted - Provider: Megan Lin R.N.)1300 (Rate/Dose Verify - Provider: Megan Lin R.N.)1345 (Stopped - Provider: Megan Lin R.N.) 0943 (Restarted - Provider: Savannah Pelayo R.N.)1000 (Rate/Dose Verify - Provider: Savannah Pelayo R.N.)1054 (New Bag - Provider: Savannah Pelayo R.N.)1100 (Rate/Dose Verify [...] Pelayo R.N.)1923 (Stopped - Provider: Jerzy Frost R.N.) PRN Medication Order 03/12/2024 03/13/2024 03/14/2024 acetaminophen [...] options. 0142 (Given - Provider: Jerzy Frost R.N.) ipratropium-albuteroL 0.5-2.5 mg/3 mL nebulizer solution 3 mL (DUONEB) 3 mL, nebulization, 4 times daily PRN, wheezing, shortness of breath, Starting on Wed02/28/24 at 1625 propofol bolus from bag 20 mg (Diprivan) 20 mg, intravenous, Every 1 hour PRN, seizure activity, Starting on Wed03/12/24 at 1035 1022 (Bolus from Bag - Provider: Megan Lin R.N.)1255 (Bolus from Bag - Provider: Megan Lin R.N.) Linked Groups Order Group 1: caspofungin 70 [...] documented as of this encounter Care Teams Pullman Car Repairer Relationship Specialty Start Date End Date Elsewhere, Pcp PCP - General Family Medicine 06/24/18 documented as of this encounter
--- OUTSIDE RECORDS SUMMARY | 2024-03-14 04:15 | XMS_ITS | Encounter Summary ---
Author Organization [facility] Address [address] [place] [address] Care Team Providers Care Motor Grader Rough Grade Name Role Phone Elsewhere, Pcp Primary Care Provider Unavailabl e Encounter Details Date Type Department Care Team (Late st Contact Info) Description 03/01/2024 12:20 PM CDT Ancillary Procedure Department of Nursing Social History Tobacco Use Types Packs/Day Years Used Date Smoking Tobacco: Never Smokeless Tobacco: Never Alcohol Use Standard Drinks/Week Comments Never 0 (1 standard drink = 0.6 oz pur e alcohol) [facility] Utilities Answer Date Recorded In the past 12 months has th e [employer], gas, oil, or water [employer] threatened to shut off services in your [...] How often do you attend sikh or hoahaoism serv ices? Patient declined 12/11/2021 [...] and heating? Not hard at all 12/11/2021 [facility]at [facility] - Occupational Stress Questionnaire Answer Date Recorded [...] on filedocumented in this encounter Care Teams Motor Grader Rough Grade Relationship Specialty Start Date End Date Elsewhere, Pcp PCP - General Family Medicine 06/24/18 documented as of this encounter
--- OUTSIDE RECORDS SUMMARY | 2024-03-14 04:15 | XMS_ITS | Encounter Summary ---
Author Organization [facility] Address [address] [place] [address] Care Team Providers Care Instrument Worker Name Role Phone Elsewhere, Pcp Primary Care [...] declined 12/11/2021 How often do you attend advent or jew serv ices? Patient declined 12/11/2021 Do you belong to any clubs o r organizations such as advent groups, unions, fraternal or athletic groups, or [...] and heating? Not hard at all 12/11/2021 [facility] of Occupat ional Health - Occupational Stress [...] on filedocumented in this encounter Care Teams Instrument Worker Relationship Specialty Start Date End Date Elsewhere, Pcp PCP - General Family Medicine 06/24/18 documented as of this encounter
--- OUTSIDE RECORDS SUMMARY | 2024-03-14 04:15 | XMS_ITS | Encounter Summary ---
Author Organization [facility] Address [address] [place] [address] Care Team Providers Care Software Tools Build Engineer Name Role Phone Elsewhere, Pcp Primary Care [...] declined 12/11/2021 How often do you attend scientology or pentecostalism serv ices? Patient declined 12/11/2021 Do you belong to any clubs o r organizations such as scientology groups, unions, fraternal or athletic groups, or [...] and heating? Not hard at all 12/11/2021 [facility] [place] of Occupat ional Health - Occupational Stress [...] slept in a retirement (including now)? No 12/11/2021 Nutrition Answer Date [...] documented as of this encounter Care Teams Software Tools Build Engineer Relationship Specialty Start Date End Date Elsewhere, Pcp PCP - General Family Medicine 06/24/18 documented as of this encounter
--- OUTSIDE RECORDS SUMMARY | 2024-03-14 04:15 | XMS_ITS | Encounter Summary ---
Author Organization [facility] Address [address] [place] [address] Care Team Providers Care Records Section Supervisor Name Role Phone Elsewhere, Pcp Primary Care Provider Unavailabl e Encounter Details Date Type Department Care Team (Late st Contact Info) Description 03/03/2024 10:15 PM CDT Ancillary Procedure Department of Nursing Social History Tobacco Use Types Packs/Day Years Used Date Smoking Tobacco: Never Smokeless Tobacco: Never Alcohol Use Standard Drinks/Week Comments Never 0 (1 standard drink = 0.6 oz pur e alcohol) [facility] Utilities Answer Date Recorded In the past 12 months has e [employer], gas, oil, or water [employer] threatened to shut off services in your home? Patient unable to answer 03/04/2024 Humiliation, Afraid, Rape, a nd Kick questionnaire Answer Date Recorded Within the last year, have y ou been afraid of your partner or ex-partner? Patient unable to answer 03/04/2024 Within the last year, have y ou been humiliated or emotionally abused in other ways by your partner or ex-partner? Patient unable to answer 03/04/2024 Within the last year, have y ou been kicked, hit, slapped, or otherwise physically hurt by your partner or ex-partner? Patient unable to answer 03/04/2024 Within the last year, have y ou been raped or forced to have any kind of sexual activity by your partner or ex-partner? Patient unable to answer 03/04/2024 Social Connection and Isolation Panel [NHANES] A nswer Date Recorded In a typical week, how many times do you talk on the phone with family, friends, or neighbors? Never 12/11/2021 How often do you get togethe r with friends or relatives? Patient declined 12/11/2021 How often do you attend faith or mandaeism serv ices? Patient declined 12/11/2021 Do you belong to any clubs o r organizations such as faith groups, unions, fraternal or athletic groups, or [...] heating? Not hard at all 12/11/2021 [facility] of Occupat ional Health [...] to buy more. Patient unable to answer 03/04/2024 Within the past 12 months, t he food you bought just didn't last and you didn't have money to get more. Patient unable to answer 03/04/2024 PRAPARE - Transportation Answer Date Re corded In the past 12 months, has l ack of transportation kept you from medical appointments or from getting medications? Patient unable to answer 03/04/2024 In the past 12 months, has l ack of transportation kept you from meetings, work, or from getting things needed for daily living? Patient unable to answer 03/04/2024 Nutrition Answer Date Recorded On average, how [...] situation today? Patient jimmie ble to answer 03/04/2024 Sex and Gender Information Value Date Recorded [...] on filedocumented in this encounter Care Teams Records Section Supervisor Relationship Specialty Start Date End Date Elsewhere, Pcp PCP - General Family Medicine 06/24/18 documented as of this encounter
--- OUTSIDE RECORDS SUMMARY | 2024-03-14 04:15 | XMS_ITS | Encounter Summary ---
Author Organization [facility] Address [address] [place] [address] Care Team Providers Care General Service Technician Name Role Phone Elsewhere, Pcp Primary Care Provider Unavailabl e Encounter Details Date Type Department Care Team (Late st Contact Info) Description 03/05/2024 10:05 PM CDT Ancillary Procedure Department of Nursing Social History Tobacco Use Types Packs/Day Years Used Date Smoking Tobacco: Never Smokeless Tobacco: Never Alcohol Use Standard Drinks/Week Comments Never 0 (1 standard drink = 0.6 oz pur e alcohol) [facility] Utilities Answer Date Recorded In the past 12 months has e [employer], gas, oil, or water [employer] threatened to shut off services in your home? Patient unable to answer 03/05/2024 Humiliation, Afraid, Rape, a nd Kick questionnaire Answer Date Recorded Within the last year, have y ou been afraid of your partner or ex-partner? Patient unable to answer 03/05/2024 Within the last year, have y ou been humiliated or emotionally abused in other ways by your partner or ex-partner? Patient unable to answer 03/05/2024 Within the last year, have y ou been kicked, hit, slapped, or otherwise physically hurt by your partner or ex-partner? Patient unable to answer 03/05/2024 Within the last year, have y ou been raped or forced to have any kind of sexual activity by your partner or ex-partner? Patient unable to answer 03/05/2024 Social Connection and Isolation Panel [NHANES] A nswer Date Recorded In a typical week, how many times do you talk on the phone with family, friends, or neighbors? Never 12/11/2021 How often do you get togethe r with friends or relatives? Patient declined 12/11/2021 How often do you attend shinto or evangelical serv ices? Patient declined 12/11/2021 Do you belong to any clubs o r organizations such as shinto groups, unions, fraternal or athletic groups, or [...] to buy more. Patient unable to answer 03/05/2024 Within the past 12 months, t he food you bought just didn't last and you didn't have money to get more. Patient unable to answer 03/05/2024 PRAPARE - Transportation Answer Date Re corded In the past 12 months, has l ack of transportation kept you from medical appointments or from getting medications? Patient unable to answer 03/05/2024 In the past 12 months, has l ack of transportation kept you from meetings, work, or from getting things needed for daily living? Patient unable to answer 03/05/2024 Nutrition Answer Date Recorded On average, how [...] situation today? Patient jimmie ble to answer 03/05/2024 Sex and Gender Information Value Date Recorded Sex Assigned at Male 12/11/2021 2:11 PM CDT Gender Identity Male 12/11/2021 1:44 PM CDT Sexual Orientation Straight 12/11/2021 2: 11 PM CDT documented as of this encounter Plan of Treatment Not on file documented as of this encounter Procedures Procedure Name Priority Date/Time Associated Diagnosis Comments NURSING IMAGE EXAM Routine 03/05/2024 10 :05 PM CDT documented in this encounter Results * Groin,-Nursing Image Exam (03/05/2024 10:05 PM CDT) 03/05/2024 10:0 4 PM CDT Narrative IIMS - 03/05/2024 10:06 PM CDT This order has been created and auto-finalized to support the import of images acquired without order. The clinical documentation to support these images can be found on the encounter that produced images. Provider Not In System IMG NON RAD IMAGI NG PROCEDURES [facility] NA documented in this encounter Visit Diagnoses Not on filedocumented in this encounter Care Teams General Service Technician Relationship Specialty Start Date End Date Elsewhere, Pcp PCP - General Family Medicine 06/24/18 documented as of this encounter
--- OUTSIDE RECORDS SUMMARY | 2024-03-14 04:15 | XMS_ITS | Encounter Summary ---
Author Organization [facility] Address [address] [place] [address] Care Team Providers Care Senior Planning Manager Name Role Phone Elsewhere, Pcp Primary Care Provider Unavailabl e Encounter Details Date Type Department Care Team (Late st Contact Info) Description 02/29/2024 6:00 AM CDT Ancillary Procedure Department of Radiology in [place], [place] [address] [place] [phone] Erasmo Lloyd APRN, C.N.P., D.N.P. [address] [place] [id number] Social History Tobacco Use Types Packs/Day [...] declined 12/11/2021 How often do you attend synagogue or taoism serv ices? Patient declined 12/11/2021 Do you belong to any clubs o r organizations such as synagogue groups, unions, fraternal or athletic groups, or [...] Not hard at all 12/11/2021 [facility] of Occupat ional Health - Occupational Stress [...] popliteal vein. Result discussed with BETO Nguyen ([id number]) by Dr. Schulte on 02/29/2024 at 0950 hours. Narrative 02/29/2024 10:22 AM CDT EXAM: ??INTERPRETATION OF OUTSIDE US VASCULAR. Bilateral lower extremity venous ultrasound performed on 02/28/2024 at outside facility. Interpretation provided without the benefit of real-time scanning or discussion with the parking inspector. COMPARISON: ??None FINDINGS: ?? RIGHT: The common [...] benefit of real-time scanning ordiscussion with the parking inspector. COMPARISON: None FINDINGS: RIGHT: The common femoral, [...] through poplitealvein. Result discussed with BETO Nguyen ([id number]) by Dr. Schulte on02/29/2024 at 0950 hours. Erasmo Lloyd APRN, C.N.P., D.N.P. IMG US PROCEDURES documented in this encounter Visit Diagnoses Not on filedocumented in this encounter Care Teams Senior Planning Manager Relationship Specialty Start Date End Date Elsewhere, Pcp PCP - General Family Medicine 06/24/18 documented as of this encounter
--- OUTSIDE RECORDS SUMMARY | 2024-03-14 04:15 | XMS_ITS | Encounter Summary ---
Author Organization [facility] Address [address] [place] [address] Care Team Providers Care Certified Orthotist Name Role Phone Elsewhere, Pcp Primary Care [...] How often do you attend baptist or anabaptism serv ices? Patient declined 12/11/2021 [...] and heating? Not hard at all 12/11/2021 [facility] of Occupat ional Health - Occupational [...] place to sleep or slept in a custodial (including now)? No 12/11/2021 Nutrition Answer Date [...] documented as of this encounter Care Teams Certified Orthotist Relationship Specialty Start Date End Date Elsewhere, Pcp PCP - General Family Medicine 06/24/18 documented as of this encounter
--- OUTSIDE RECORDS SUMMARY | 2024-03-14 04:15 | XMS_ITS | Encounter Summary ---
Author Organization [facility] Address [address] [place] [address] Care Team Providers Care Pc Support Specialist Name Role Phone Elsewhere, Pcp Primary [...] How often do you attend sikh or mu-ism serv ices? Patient declined 12/11/2021 Do you [...] all 12/11/2021 [facility] [place] of Occupat ional Health - Occupational Stress [...] on filedocumented in this encounter Care Teams Pc Support Specialist Relationship Specialty Start Date End Date Elsewhere, Pcp PCP - General Family Medicine 06/24/18 documented as of this encounter
--- OUTSIDE RECORDS SUMMARY | 2024-03-14 04:17 | XMS_ITS | Encounter Summary ---
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 [address] [place] [address] [phone] Rufus Ba M.B.B.S. [address] [place] [phone] Aleks Hinkle M.D. [address] [place] [address] [phone] Sonido Cruz M.D., Ph.D. [address] [place] [phone] Acute Respiratory Failure With Hypoxia (HCC) (Primary Dx); Aspiration Pneumonia Secondary to Procedure; Decline Functional Status [R53.81]; Pneumoperitoneum Social History Tobacco Use Types Packs/Day Years Used Date Smoking Tobacco: Never Smokeless Tobacco: Never Alcohol Use Standard Drinks/Week Comments Never 0 (1 standard drink = 0.6 oz pur e alcohol) [facility] Utilities Answer Date Recorded In the past 12 months has th e electric, gas, oil, or water Nitch threatened to shut off services in your [...] declined 12/11/2021 How often do you attend pentecostal or yazidi serv ices? Patient declined 12/11/2021 Do you belong to any clubs o r organizations such as pentecostal groups, unions, fraternal or athletic groups, or [...] and heating? Not hard at all 12/11/2021 [facility] [place] of Occupat ional Health - Occupational Stress [...] 44 y.o. male patient with history of Paris-Gastaut syndrome, developmental delay, ALL treated with chemoradiation, hx of lateral medullary stroke at age 12, seizures, who presents to [facility] Medical Intensive Care unit via ambulance for further evaluation and management of acute respiratory failure in the setting of pneumonia. Patient presented to [facility] Emergency Department the morning of 02/28/2024 for [...] his presentation to the emergency department at [place], patient was started on BiPAP for hypoxia. [...] to the medical intensive care unit at [facility] alert, two IVs in place, as [...] medication held this morning (importantly his AEDs). Charlyppra transitioned to IV. Following operation, discuss with neurology resumption of his home anti epileptic drugs (pending ability to give POmeds). -Course of Bactrim to finish today for stenotrophomonas pneumonia -Apixaban held for OR today -NSS consulted for TPN administration, consider starting TPN following OR SUMMARY DIAGNOSES: Patient Active Problem List Diagnosis Ulcer Skin Chronic Leukemia Lymphocytic Acute Remission (HCC) Seizure (HCC) Paris Gastaut Syndrome (HCC) Overgrowth Bacterial Small Bowel [...] LD Date completed: 03/01/2024 Oral diet: {Oral diet:24534} Feeding tube information: Transgastric Jejunal 22 [facility] TGJ (transgastric jejunal) *Do Not Rotate* Who placed the tube: [facility] Date of tube placement: December 29, 2023 To maintain enteral access the patient's feeding tube should be replaced at regular intervals. Recommended replacement for feeding tube with internal balloon is every 3-5 months. Tube feeding program: Formula: Promote Feeding method: Continuous pump controlled Feeding schedule/goal: mL/hour over hours. Water flushes: {Water flushes:60485} Vitamin/mineral supplementation: {Vitamin/mineral supplementation:74053} This program provides calories and grams protein per day. Monitor your weight 1-2 time(s) per week. Anthropometrics: Weight: 66.9 kg Height: 156 cm BMI (Calculated): 27.5 kg/m?? Estimated Needs: Total Calorie Needs: 3392-2448 calories/day Method to Estimate Energy Needs: kcal/kg (22-25 kcal/kg) Weight Used for Equation Calculations: 66.9 kg Total Protein Needs: 80 - 100 grams/day Method to Estimate Protein Needs (g/kg): 1.2 - 1.5 gm/kg Weight Used to Calculate Protein Needs (Kg): 66.9 kg Your Durable Medical Equipment (DME)/Infusion company for tube feeding supplies is: [place]: ; [employer] Clinical Liaison . Please contact this DME [...] encounter Progress Notes * Lauren Palencia M.S., [facility]-DIRECTOR [employer] - 03/13/2024 4:57 PM CDT 03/13/24 1656 Reason Therapy Missed Reason Therapy Missed Medical hold (Patient was not appropriate for speech this date due to concern for ongoing seizures and ongoing sedating medication. DIRECTOR AUDIENCE MARKETING will continue to follow [phone]) Electronically signed by Lauren Palencia M.S., [facility]-DIRECT[employer] at 03/13/2024 4:57 PM CDT * Shanna Boudreaux P.T., D.P.T., KUNAL - 03/13/2024 1:09 PM CDT 03/13/24 1308 Reason Therapy Missed Reason Therapy Missed Medical hold (Communicated with OT and RN this AM. Patient remains intubated and minimally responsive, ongoing concern for seizures. we will hold therapy today and check back as able.) * Celi Cueva R.N., C.W.C.N. - 03/13/2024 12:31 PM CDT [facility] Wound RN following up to assess [...] Scant Drainage Description Serous Ana-wound Assessment Blanchable erythema;Bogart;Rash Treatments Cleansed Periwound Treatment Cleansed (Comment) Wound Cleansed with Foam cleanser *Primary Dressing Acetic acid (nystatin cream (will dc hydrocortisone) with soaks) *Primary Dressing Frequency of Change 2x/day & PRN Primary Dressing Changed Changed Primary Dressing Status Intact *Secondary Dressing Other (Comment) (nystatin powder between soaks) *Secondary Dressing Frequency of Change 2x/day & PRN Changed by Wound welding technician Ongoing management Nursing;Wound/furniture restorer Wound 03/12/23 Other Moisture Associated Skin Damage Abdomen Left;Lower GJ-Tube Date First Assessed/Time First Assessed: 03/12/23 0900 Present on Original Admission: Yes Wound Approximate Age at First Assessment: Unknown Primary Wound Type: Other Moisture Associated Skin Damage Location: Abdomen Wound Location Orientation: ... *Shape Irregular *Wound Bed Closed;Bogart Tissue Exposed None Odor None *Exudate Amount Small Drainage Description Yellow Ana-wound Assessment Fragile;Bogart Treatments Cleansed Periwound Treatment Cleansed (Comment) Wound Cleansed with Foam cleanser *Primary Dressing Acetic acid (nystatin cream with soaks (hydrocortisone to be dc'd)) *Primary Dressing Frequency of Change 2x/day & PRN Primary Dressing Changed Changed Primary Dressing Status Intact *Secondary Dressing Foam (Mepilex Up between soaks) *Secondary Dressing Frequency of Change 2x/day & PRN Changed by Wound welding technician Ongoing management Nursing;Wound/furniture restorer Focused assessment completed DRESSING RECOMMENDATIONS: #1 Friction [...] no further concerns at this time. The C RN will continue to see the patient, [...] Stem Stroke Syndrome #11 Jejunostomy Status Post ([facility]) #12 Delirium (not otherwise specified) #13 Gastrostomy Status ([facility]) #14 Apnea Sleep Obstructive #15 Hyponatremia #16 Acute Respiratory Failure With Hypoxia ([facility]) #17 Acute Embolism And Thrombosis Of Left Femoral Vein ([facility]) #18 Coma ([facility]) Mr. Hilario is a 44 year old male with a PMH of Paris-Gastaut syndrome, developmental delay, ALL treated with chemoradiation, [...] for by the HSS-B team. Please page [phone] (HSS-B) with any questions. Plan and assessment [...] / PLAN #1 Break through seizures #2 Ayaan Gastaut Syndrome #3 Ileus with colon perforation s/p sigmoid colectomy, ileocolonic anastomosis, end colostomy #4 TPN #5 Aspiration pneumonia #6 Dysphagia on intermission coordinator tube feeds via gastrojejunal tube #7 History [...] Discussed with his family at bedside. Call [phone] with questions/concerns. * Camelia Faustin R.N., ON - 03/13/2024 9:28 AM CDT SUBJECTIVE REASON [...] ([employer]) Status Changed Changed by Wound welding technician Pouching System Removed OR system, urostomy pouch Pouching System Applied [employer] #[id number], 2098, 45940 Ongoing management Wound/furniture restorer Output Description None Stool Output (mL) 0 mL ASSESSMENT / PLAN EDUCATION STATUS Education not started at today's visit. PLAN WOC nurse continuing to follow. WOC RN will return tomorrow to check seal if output. Page [facility] [phone] M-F 6:30AM-2:30PM with questions or leakage issues. Wednesday pager [phone] 8:00AM-2:30PM. * Jennifer Mims M.B., Ch.B. - [...] Acute Remission (HCC) #2 Seizure (HCC) #3 Paris Gastaut Syndrome (HCC) #4 Pneumonia #5 Dysphagia #6 Cerebrovascular Disease #7 Reflux Esophageal #8 Severe Sepsis With Septic Shock (HCC) #9 Nephrolithiasis #10 Brain Stem Stroke Syndrome #11 Jejunostomy Status Post ([facility]) #12 Delirium (not otherwise specified) #13 Gastrostomy Status ([facility]) #14 Apnea Sleep Obstructive #15 Hyponatremia #16 Acute Respiratory Failure With Hypoxia ([facility]) #17 Acute Embolism And Thrombosis Of Left Femoral Vein ([facility]) #18 Coma ([facility]) Nutrition Needs: Height: 156 cm Admission Weight: 69.4 kg (02/28/2024) Current Weight: 70.7 kg BMI (Calculated): 29.1 kg/m?? Total Calorie Needs: 1329-7733 (HB Basal and 20-25 kcals/kg) calories/day Method to Estimate Energy Needs: [place] (Basal) Weight Used for Equation Calculations: 69.4 [...] furosemide. Will continue to follow. Please call [facility] pager [phone] with any additional questions. * Paul Lee, PharmMayD., R.Ph., [facility] - 03/13/2024 8:39 AM CDT Pharmacist Progress Note HPI: 44 y.o. male. Admitted on 02/27 for acute hypoxemic respiratory secondary to community acquiredpneumonia. 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, chronic G-tube placement (placed age 10, converted to GJ tube in 2019), history of lateral medullary stroke at age 12, as well as recurrent seizures OBJECTIVE Outpatient medication history: Reviewed and verified by a Pharmacist(or pharmacy operations manager) on 02/28 Procedures(this encounter): - 03/01: Intubation and bronchoscopy - 03/10: laparoscopic converted to open abdominal exploration with right monica-colectomy - 03/11: abdominal exploration with cholecystectomy, sigmoidectomy, ileocolonic anastomosis, and descending colostomy Neuro/Psych: RASS -3to-4, no orient, CAM+, pain 0 with fent infusion. Neuro following for encephalopathy and complex SHEEP FARM MANAGER anti-epileptic regimen that has been transitioned [...] following for CPN. Glucose <180 Prophylaxis: SQH, PPI(SHEEP FARM MANAGER), chlorhex ASSESSMENT / PLAN History of [...] suggesting an eGFR ~90ml/min today. Paul Lee Pharm.D., R.Ph., BCCCP Pager [phone] * Samuel Belle APRN, C.N.P. - 03/13/2024 4:53 AM CDT SUBJECTIVE Brief Summary: Mr. Hilario is a 44 year old male with a PMH of Paris-Gastaut syndrome, developmental delay, ALL treated with chemoradiation, [...] which showed changes not unexpected given his Paris-Gostout and anti-epileptic medications. MRI of the head [...] size, borderline reduced systolic function, RVSP 34, ksmx-kf-esadcljy tricuspid valve regurgitation, tiny posterior pericardial effusion [...] of intractable epilepsy in the setting of Paris Gastaut Syndrome. Epilepsy is consulted for assistance [...] Acute Remission (HCC) #2 Seizure (HCC) #3 Paris Gastaut Syndrome (HCC) #4 Pneumonia #5 Dysphagia [...] admission: 44 year old male admitted to [facility] Medical ICU on 02/28/2024 for acute hypoxemicrespiratory secondary to community acquired pneumonia. 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 [phone] * Ginger Eugene, AKASH, C.N.P. - 03/12/2024 9:21 AM CDT [facility] SURGICAL SERVICE, CHIEF B PROGRESS NOTE SUBJECTIVE [...] Hinkle M.D.Steadman, Jessica A, M.B.B.SLauren Flores M.D. RST ROMB OR 03/11/2024 EXPLORATION ABDOMINAL, cholecystectomy, sigmoidectomy, ileocolonic anastomosis, descending colostomy Aleks Hinkle M.D.Stewart, Brody R, M.D. [facility]ST [facility] OR #1 Leukemia Lymphocytic Acute Remission [...] Embolism And Thrombosis Of Left Femoral Vein ([facility]) #18 Coma ([facility]) Mr. Hilario is a 44 year old male with a PMH of Paris-Gastaut syndrome, developmental delay, ALL treated with chemoradiation, [...] concerns please page the HSS-B service at [phone]. * Rick Casillas M.D. - 03/12/2024 9:14 [...] BMI (Calculated): 29.1 kg/m?? Total Calorie Needs: 7292-5884 (MSJ Basal 1430 kcals) calories/day Method to Estimate Energy Needs: Gregory-St Jeor (Basal) Weight Used for Equation Calculations: [...] 18 G Anterior;Right;Upper Arm (Active) Placement Date/Time: 03/01/240 Size (Gauge): 18 G Orientation: Anterior;Right;Upper Location: [...] of thiamine. Please call NSS pager at [phone] at [facility] or [phone] at [facility] with any additional questions. BILLING/CODING Total visit 35 minutes. * Samuel Belle APRN, C.N.P. - 03/12/2024 1:12 AM CDT SUBJECTIVE Brief Summary: Mr. Hilario is a 44 year old male with a PMH of Paris-Gastaut syndrome, developmental delay, ALL treated with chemoradiation, hx of lateral medullary stroke at age 12, and seizures who presented to [facility] ED with shortness of breath and hypotension. [...] 92 I/O last 3 completed shifts: In: 31694.7 [Enteric (NG/OG) Tube:170] Out: 2313.5 [Urine:1056; Emesis [...] size, borderline reduced systolic function, RVSP 34, tsjz-fe-lvjzjcdf tricuspid valve regurgitation, tiny posterior pericardial effusion [...] on levetiracetam 2000 mg BID IV and [id number] mg BID IV - as long as [...] Acute Remission (HCC) #2 Seizure (HCC) #3 Paris Gastaut Syndrome (HCC) #4 Pneumonia #5 Dysphagia [...] I agree with his findings and plan. [facility] ICU CODER NOTE SUBJECTIVE Mr. 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 Location: [id number] Reason(s) for encounter: Spiritual Care contact for ongoing spiritual care. Summary: I was able to meet with Say Hilario. Say was in bed and not communicating. [facility] on [...] administered with prayer and blessing. Spiritual Assessment Faith Identification / Spiritual Practices: Sabianist. Coping and support: Pt's parents were in the room giving him emotional comfort. Spiritual Care interventions: Therapeutic and supportive listening was provided with the aim of allowing patient/family expression of emotions, hopes and worries regarding current medical condition and life stage. Facilitated yazidi/spiritual practices (prayer, blessing, sacred texts, yazidi item) with theaim to reinforce patient's spiritual wellness and connection with source of sacredness. Spiritual Care outcomes: Patient/family achieved a sense of spiritual peace. Patient/family was appreciative of spiritual care support. Spiritual Care Plan / Recommendations: Will remain available for spiritual care as needed or requested. Chaplains can be contacted by paging [phone] ([place]) or [phone] (Hindu). * David Arreaga R.N., C.W.C.N. - 03/11/2024 12:33 PM CDT [facility] Wound RN reconsulted to assess Say Hilario skin alterations. Wound assessment, pain, and Javier score noted in the flowsheet. No images were taken during this patient assessment. History: Per provider note, the patient was admitted to the hospital for acute hypoxemic respiratory failure secondary to community-acquired versus aspiration pneumonia. The patient's significant history includes cerebrovascular disease, Paris Gastaut Syndrome, chronic dysphagia with PEJ placement, and intellectual disability. Assessment: The [facility] nurse was reconsulted to assess for worsening MASD around GJ Tube secondary to increased drainage. On assessment; the affected area around the GJ Tube has slightly improved. The erythema has reducedand the generalized epidermal striping has resolved. There are worsening erosions secondary to moisture and friction from the tubing at 12- 6 o'clock. The [facility] nurse recommends the same modality of [...] None Unable to Measure Y *Wound Bed Open;Bogart;White Odor None *Exudate Amount Small Drainage Description Serosanguineous Ana-wound Assessment Fragile Treatments Cleansed Periwound Treatment Cleansed (Comment) Wound Cleansed with Wound cleanser *Primary Dressing Acetic acid (with [place]/Nystatin Cream) *Primary Dressing Frequency of Change 3x/day & PRN *Secondary Dressing Foam (Mepilex Up) *Secondary Dressing Frequency of Change 3x/day & PRN Secondary Dressing Changed New Changed by Unit based nurse;Wound welding technician Ongoing management Nursing;Wound/furniture restorer Wound 03/10/24 Incision IPSI(s) present Abdomen Medial [...] no further concerns at this time. The [facility] RN will continue to see the patient, contact or reconsult for worsening wounds or new wounds. Electronically signed by: David Arreaga R.N., MalloryCJuli ([facility] student) 03/11/24 12:34 PM CDT * [...] open, vac dressing placed. There is a 14tat20xa bruise to the right of his incision. G-tube looks well. Assessment ASSESSMENT AND PLAN #1 Leukemia Lymphocytic Acute Remission (HCC) #2 Seizure ([facility]) #3 Paris Gastaut Syndrome ([facility]) #4 Pneumonia #5 Dysphagia #6 Cerebrovascular Disease #7 Reflux Esophageal #8 Severe Sepsis With Septic Shock ([facility]) #9 Nephrolithiasis #10 Brain Stem Stroke Syndrome #11 Jejunostomy Status Post ([facility]) #12 Delirium (not otherwise specified) #13 Gastrostomy Status ([facility]) #14 Apnea Sleep Obstructive #15 Hyponatremia #16 Acute Respiratory Failure With Hypoxia ([facility]) #17 Acute Embolism And Thrombosis Of Left Femoral Vein ([facility]) #18 Coma ([facility]) This is a 44-year-old male with Ayaan [...] for by the HSS-B team. Please page [phone] (HSS-B) with any questions. Plan and assessment [...] BMI (Calculated): 29.1 kg/m?? Total Calorie Needs: 0370-1916 (MSJ Basal 1430 kcals) calories/day Method to Estimate Energy Needs: Gregory-St Jeor (Basal) Weight Used for Equation Calculations: [...] surgical team. Please call NSS pager at [phone] at [facility] or [phone] at [facility] with any additional questions. BILLING/CODING Total visit 35 minutes. * Savannah Fong M.B.B.S. - 03/11/2024 2:25 AM CDT SICU Progress Note REASON FOR ADMISSION - s/p ex lap, right hemicolectomy for cecal perforation, mobilization of gallbladder, discontinuity, packing (quick clot, lap pad), TAC on 03/10 HISTORY OF PRESENT ILLNESS Mr. Hilario is a 44 year old male with a PMH of Paris-Gastaut syndrome, developmental delay, ALL treated with chemoradiation, [...] size, borderline reduced systolic function, RVSP 34, culu-ul-anceldzj tricuspid valve regurgitation, tiny posterior pericardial effusion. [...] Acute Remission (HCC) #2 Seizure (HCC) #3 Paris Gastaut Syndrome (HCC) #4 Pneumonia #5 Dysphagia [...] I agree with her findings and plan. [facility] ICU CODER NOTE SUBJECTIVE Mr. 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 * Michelle Anderson R.R.T., L.R.T. - 03/10/2024 5:48 PM CDT 03/10/24 1645 Internal Patient Transport Internal Patient Transport From [place] Transport Equipment Assisted Ventilation;Oxygen Therapy Transport Time (minutes) 45 Pt transported from OR 405 to 516 on T1 ventilator on the following settings: Mode:PCMV PC:15 PEEP:+10 RR:15 FiO2:50% Nursing and Respiratory personnel present for handoff. Anesthesia bag and mask present on transport. No complications during transport. Electronically signed by: Michelle Anderson R.R.T., L.R.T. 03/10/24 5:49 PM CDT * Rosalina Wagner [...] admission: 44 year old male admitted to [facility] Medical ICU on 02/28/2024 for acute hypoxemicrespiratory secondary to community acquired pneumonia. 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 Jose De Jesus Dnun, Pharm.D., R.Ph. [phone] * Rufus Ba M.B.BMayS. - 03/10/2024 7:19 [...] 44-year-old male with medical history significant for Paris-Gastaut syndrome with recurrent seizures and cognitive delay [...] after initiation of therapeutic anticoagulation; resolved #7 Paris-Gastaut syndrome with recurrent seizures and severe cognitive [...] male patient with medical comorbidities consisting of Paris-Gastaut syndrome who was admitted to the medical [...] Obstructive #5 Acute Respiratory Failure With Hypoxia ([facility]) #6 Acute Embolism And Thrombosis Of Left Femoral Vein ([facility]) #7 Coma ([facility]) ASSESSMENT / PLAN Mr. Say Hilario is a 44 y.o. male with a past medical history significant for Paris-Gastaut syndrome, developmental delay, ALL treated with chemoradiation, [...] evaluation. Plan otherwise as follows: NEURO # Ayaan-Gastaut Syndrome # Developmental Delay [...] Mother, Shelby. Father, Andrés. * Amena Winn P.T., D.P.T. - 03/09/2024 2:32 PM CDT Physical [...] needs met and questions answered. Outcome Measures [facility] Inpatient Short Form: -[facility] Basic Mobility (V.2) How much help from [...] Climbing 3-5 steps with a railing?: Total -[facility] Basic Mobility (V.2) Raw Score: 6 -[facility] Basic Mobility (V.2) Standardized Score: 16.59 Interpretation: Clinicians answer the -[facility] Inpatient Short Form based on observed [...] Name: Say Hilario Referring/Attending Provider: Rufus Ba M.B.B.SMay Reason for Referral: Occupational Therapy Evaluation and Treatment History of Present Illness: Say Hilario is a 44 y.o. male who was admitted to [facility] in [place] on 02/28/2024 for Acute Respiratory Failure With [...] discussed and coordination of care occurred with special education kindergarten teacher/Caregiver Present: Mother and Father Co-treat with physical [...] symptoms due to mental status. Outcome Measures: -[facility] Inpatient Short Form: Putting on and [...] at or below 17 Clinicians answer the -[facility] Inpatient Short Form based on observed [...] Epps M.T.S. - 03/09/2024 9:30 AM CDT [facility] Spiritual Care Progress Note Patient: Say Hilario Age:44 y.o. Location: [id number] Reason(s) for encounter: Spiritual Care contact to introduce spiritual care service and assess for potential spiritual care needs. Spiritual Care contact for ongoing spiritual care. Spiritual Care contact per Family's request. Spiritual Care contact for yazidi rites/sacramental encounter. Summary: I was able to meet with Say Hilario who was in bed and the healthcare staff attending to him. Family members were present in the room. Say could not engage. He was still intubated. The family was supported and prayer shared for the continued healing of the patient. Spiritual Assessment Faith Identification / Spiritual Practices: Say is a Sabianist Coping and support: Family members were present [...] current medical condition and life stage. Facilitated yazidi/spiritual practices (prayer, blessing, sacred texts, yazidi item) with theaim to reinforce patient's spiritual [...] requested. Chaplains can be contacted by paging [phone] ([place]) or [phone] (Hindu). * Rufus Ba M.B.B.S. 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 They feel he would not want care home facility and ventilator dependence. Goals of care discussion to continue as Say's situation evolves. Taking one day at a time. Plan By Systems: NEURO # Paris-Gastaut Syndrome # Developmental Delay # History of [...] mg PM, and Rufinamide 200 mg AM [id number] mg PM. Levels pending - Pain regimen: [...] Andrés. - baseline cognitive status is approximately 92-bxvhz-yev. * Anastasiya Landrum, RDN, LD - 03/08/2024 3:04 PM CDT [...] reviewed GI Function: Last BM Date: 03/07/24, [place] Stool Chart: Type 7: Watery, no solid pieces, Passing Flatus: Yes. Estimated Needs: Calories: 9650-1273 (MSJ Ixprs=2164 kcal) calories/day Method to Estimate Energy Needs: [...] about patient's nutritional care please contact pager [phone] on weekdays 07:30-16:00 or [phone] on weekends/holidays ([facility]). * Jose De Jesus Dunn, Pharm.D., R.Ph. - 03/08/2024 8:36 AM CDT Pharmacist Progress Note Reason for admission: 44 year old male admitted to [facility] Medical ICU on 02/28/2024 for acute hypoxemicrespiratory secondary to community acquired pneumonia. 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 Jose De Jesus Dunn, Pharm.D., R.Ph. [phone] * Rufus Ba M.B.B.S. - 03/08/2024 7:01 [...] 44-year-old male with medical history significant for Paris-Gastaut syndrome with recurrent seizures and cognitive delay [...] male patient with medical comorbidities consisting of Paris-Gastaut syndrome who was admitted to the medical [...] aggressive with bowel regimen. - Bactrim day of 7 - No changes to anti-epileptics [...] mg PM, and Rufinamide 200 mg AM [id number] mg PM. Levels pending - Pain regimen: [...] Andrés. - baseline cognitive status is approximately 96-vigzc-jjw. * Malini Lamb L.Tayla.S.Riya., M.S.W. - 03/07/2024 3:30 PM CDT SUBJECTIVE Social Work met with the patient, parents, and family members in the patient's room on MB 6 G. Social Work provided the patient's parents with name and contact information for [facility]. [facility] provides RN and REMOTE INPATIENT CODER in home services for medically complex individuals. [...] full-time caregivers. The patient is on a [facility] waiver through [facility], his parent's/guardians gave this hospice social worker permission to contact [facility] to inquire about available services under the [facility] waiver. Social Work called and left a message with the [facility] worker. The patient receives 3 senior living visits per week through [facility]. Their services have been reconnected as has [facility] for patients oxygen needs and services through [facility] for patients TPN nutrition needs. ASSESSMENT / PLAN ASSESSMENT Patient was sleeping when social work entered the room. Both parent's were present as well as otherfamily members. The patient's parents are very committed and attentive caregivers. The are extremely knowledgeable regarding the patients diagnosis, medical and care needs. PLAN - The patient will return to his parents home in [place], [place] at time of discharge. - The patient's family will provide transportation at time of discharge. - Social Work will continue to follow for supportive visits and discharge planning needs. 1.) Patient will return home with their previous nutrition services. Dialysis/Infusion - Admitted Since 02/28/2024 Service Provider Selected Services Address Phone Fax Patient Preferred [facility] [address], [facility] [phone] -- Contact: Tc They will continue to [...] Selected Services Address Phone Fax Patient Preferred [facility] [address] [place], [facility] [phone] -- Contact: Jesica What Care are they providing for the patient: Shelter visit 7 days a week for 1 hour. How do we reach your agency on a weekend/holiday? [phone] NURSING: - Complete documentation in the Discharge Navigator including Nursing Report Info and Facility/NextLevel of Care Info - Call report and arrange for the patient???s first visit. - Send required packet of dismissal information with patient, including After Visit Summary and advance directive. PRIMARY SERVICE: - Please provide a non-[place] home health order for resumption of previous [...] Selected Services Address Phone Fax Patient Preferred [facility] Durable Medical Equipment [address] [place] [phone] -- Contact: Imelda Respiratory Equipment : [...] pulmonary secretions. Plan By Systems: NEURO # Paris-Gastaut Syndrome # Developmental Delay # History of [...] mg PM, and Rufinamide 200 mg AM [id number] mg PM. Levels pending - Pain regimen: [...] MotherShelby - baseline cognitive status is approximately 11-zmtrd-xot. * Eloy Epps, M.T.S. - 03/07/2024 9:30 AM CDT [facility] Spiritual Care Progress Note Patient: Say Hilario Age:44 y.o. [id number] Reason(s) for encounter: Spiritual Care contact to introduce spiritual care service and assess for potential spiritual care needs. Spiritual Care contact for ongoing spiritual care. Spiritual Care contact per Family's request. Spiritual Care contact for yazidi rites/sacramental encounter. Summary: I was able to meet with Say Hilario who was in bed, intubated and unable to engage. Familymembers were present together with a health care staff. The family shared that he was almost the same. The family narrated that he opened his eyes two days back and today. Prayer was shared for the continued healing of the patient. Spiritual Assessment Faith Identification / Spiritual Practices: Say is a Sabianist Coping and support: Family members were present [...] current medical condition and life stage. Facilitated yazidi/spiritual practices (prayer, blessing, sacred texts, yazidi item) with theaim to reinforce patient's spiritual [...] requested. Chaplains can be contacted by paging [phone] ([place]) or [phone] (Hindu). * Ralph Stafford M.D. - 03/07/2024 8:55 [...] 268 and 5810 (compared to 313 and >11691 respectively) Rufinamide: 11.6 I have reviewed the current medication list. 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 His antiepileptic levels have are elevated [...] provider/neurologist Patient seen and discussed with our consultant internship Dr. Delatorre. We appreciate the consult. Please page [phone] with any questions regarding our recommendations. 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 Jose De Jesus Dunn, Pharm.D., R.Ph. [phone] * Rufus Ba M.B.B.S. 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 Estimated Needs: Calories: 6060-6423 (MSJ Qlmyz=4368 kcal) calories/day Method to Estimate Energy Needs: [...] about patient's nutritional care please contact pager [phone] on weekdays 07:30-16:00 or [phone] on weekends/holidays ([facility]). * Jose De Jesus Dunn, Pharm.D., R.Ph. - 03/06/2024 10:01 AM CDT Pharmacist Progress Note Reason for admission: 44 year old male admitted to [facility] Medical ICU on 02/28/2024 for acute hypoxemicrespiratory secondary to community acquired pneumonia. 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 Jose De Jesus Dunn, Pharm.D., R.Ph. [phone] * Danelle Contreras, R.N. - 03/06/2024 9:50 AM CDT [facility] Wound RN reconsulted to assess Say Hilario skin alterations. Wound assessment, pain, and Javier score noted in the flowsheet. No images were taken during this patient assessment. History: Per provider note, the patient was admitted to the hospital for acute hypoxemic respiratory failure secondary to community-acquired versus aspiration pneumonia. The patient's significant history includes cerebrovascular disease, Paris Gastaut Syndrome, chronic dysphagia with PEJ placement, and intellectual disability. Assessment: The patient was assessed in conjunction with the [facility] nurse and bedside nurse at bedside. [...] Cleansed (Comment) Wound Cleansed with Acetic acid Mallard Protocol (Pre-procedure pause) Y *Primary Dressing Acetic acid (with hydrocortisone and nystatin creams applied prior to acetic acid dressing.) *Primary Dressing Frequency of Change 3x/day & PRN Primary Dressing Changed Changed Primary Dressing Status Intact *Secondary Dressing Foam;Textile (Sacral Mepilex border for buttock, Interdry AG for the groin folds) *Secondary Dressing Frequency of Change 3x/day & PRN Changed by Unit based nurse;Wound welding technician Ongoing management Nursing;Wound/Ostomy Clinic Wound 03/12/23 Other [...] Cleansed (Comment) Wound Cleansed with Acetic acid Mallard Protocol (Pre-procedure pause) Y *Primary Dressing Acetic [...] Changed by Unit based nurse Ongoing management Nursing;Wound/furniture restorer Head to toe skin assessment completed and [...] no further concerns at this time. The [facility] RN will continue to see the patient, contact or reconsult for worsening wounds or new wounds. Electronically signed by: Danelle Contreras R.N. ([facility] student) 03/06/24 10:05 AM CDT * [...] 268 and 5810 (compared to 313 and >16269 respectively) Rufinamide: 11.6 I have reviewed the current medication list. OBJECTIVE Temperature: [36.6 ??C-37.1 ??C] 36.9 ??C Heart Rate: [88-105] 98 Resp Rate: [10-23] 12 Arterial Line BP: (84-126)/(42-63) 120/58 FiO2 (%): [30 %] 30 % SpO2: [89 %-100 %] 98 % Pulse Rate: [88-105] 98 Physical Exam: General: Intubated off sedation , FOUR score [id number] HEENT: ET tube in place Cardiac: Regular [...] felbamate Patient seen and discussed with our consultant internship Dr. Delatorre. We appreciate the consult. Please page [phone] with any questions regarding our recommendations. 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 Plan By Systems: NEURO # Paris-Gastaut Syndrome # Developmental Delay # History of [...] ICU Level Cares - Family: Mother, Shelby - baseline cognitive status is approximately 54-nbqgn-yzi. * Rufus Ba M.B.BMayS. 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 male who is admitted to the ICU with acute respiratory failure secondary to aspiration pneumonia. His presentation was complicated by DVT. He also had worsening of his mental status. At baseline, he sits in bed or his wheelchair and plays with toys, and is able to eat small amounts for pleasure (although most of his nutrition is via [facility]). This is first intubation for respiratory failure. Currently he remains minimally responsive, and off his baseline. He continues to have substantial secretion burden. Goal is for him to be extubated and returned home to his baseline status. PLAN BY SYSTEMS: 1. CHIP SEPARATOR: He remains encephalopathic and quite far off [...] separately. * Basil Miranda APRN, C.N.P. 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 We will continue to monitor clinically. Impression Coma Severe encephalopathy Acute hypoxemic respiratory failure secondary to aspiration pneumonia Ayaan-Gastaut syndrome Medically refractory epilepsy Cognitive delay RECOMMENDATIONS: - continue to hold sedation - continue home antiseizure medications. Patient discussed with our consultant internship Dr. Cohen. We appreciate the consult. Please page [phone] with any questions regarding our recommendations. Electronically signed by: Chelsea Spivey M.D. 03/04/24 1:57 PM CDT * Rosanna Joiner Pharm.D., R.Ph. - 03/04/2024 8:28 AM CDT Pharmacist Progress Note Reason for admission: 44 year old male admitted to [facility] Medical ICU on 02/28/2024 for acute hypoxemicrespiratory secondary to community acquired pneumonia. 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 Joanne Joiner, PharmMayD., R.Ph. [phone] * Wes Person M.B.BMayS. - 03/04/2024 6:23 AM CDT SUBJECTIVE This [...] started treatment for. PLAN BY SYSTEMS: 1. CHIP SEPARATOR: We have resumed all his home medications, [...] Vein (HCC) Plan By Systems: NEURO # Paris-Gastaut Syndrome # Developmental Delay # History of [...] Level Cares - Family: MotherShelby * Gunjan Pickering Pharm.D., R.Ph., [facility] - 03/03/2024 1:46 PM CDT Pharmacist Progress Note Reason for admission: 44 year old male admitted to [facility] Medical ICU on 02/28/2024 for acute hypoxemicrespiratory secondary to community acquired pneumonia. 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 Hemoglobin stable. Gunjan Pickering, PharmMayD., R.Ph., [facility]CP [phone] * Eloy Epps M.T.S. - 03/03/2024 10:00 AM CDT [facility] Spiritual Care Progress Note Patient: Say Hilario Age:44 y.o. Location: [address] Reason(s) for encounter: Spiritual Care contact to introduce spiritual care service and assess for potential spiritual care needs. Spiritual Care contact for ongoing spiritual care. Spiritual Care contact per Family's request. Spiritual Care contact for yazidi rites/sacramental encounter. Summary: I was able to [...] for continued prayer for Say. Spiritual Assessment Faith Identification / Spiritual Practices: Say is a Sabianist Coping and support: Has family support Spiritual [...] current medical condition and life stage. Facilitated yazidi/spiritual practices (prayer, blessing, sacred texts, yazidi item) with theaim to reinforce patient's spiritual [...] requested. Chaplains can be contacted by paging [phone] ([place]) or [phone] (Hindu). * Wes Person M.B.B.S. - 03/03/2024 7:01 [...] including poor cough. PLAN BY SYSTEMS: 1. CHIP SEPARATOR: We have sent off antiepileptic levels although [...] Vein (HCC) Plan By Systems: NEURO # Paris-Gastaut Syndrome # Developmental Delay # History of [...] Level Cares - Family: MotherShelby * David Arreaga, RMayN., C.W.C.N. - 03/02/2024 10:59 AM CDT [facility] Wound RN consulted to assess Say Bowen Hilario skin alterations. Wound assessment, pain, andBraden score noted in the flowsheet. The patient consented to photography of the affected area for clinical trending purposes. Images were taken and are available in QREADS. History: Per provider note, the patient was admitted to the hospital for acute hypoxemic respiratory failure secondary to community-acquired versus aspiration pneumonia. The patient's significant history includes cerebrovascular disease, Paris Gastaut Syndrome, chronic dysphagia with PEJ placement, and intellectual disability. Assessment: The [facility] nurse was asked to reassess a worsening PEGJ site secondary to increased sanguinous exudate after Eliquis was initiated. On assessment, the area appears more denuded, erythemic, and with the top layer of epidermal eroded. The [facility] nurse conversed with the family/primary nurse [...] Cleansed (Comment) *Primary Dressing Acetic acid (with [place]/Nystatin Cream) *Primary Dressing Frequency of Change 2x/day & PRN *Secondary Dressing Foam (Mepilex Up) *Secondary Dressing Frequency of Change 2x/day & PRN Changed by Unit based nurse Ongoing management Nursing;Wound/furniture restorer Focused assessment completed DRESSING RECOMMENDATIONS: #1 Friction [...] new wounds. * Gunjan Pickering, Pharm.D., R.Ph., [facility] - 03/02/2024 9:34 AM CDT Pharmacist Progress Note Reason for admission: 44 year old male admitted to [facility] Medical ICU on 02/28/2024 for acute hypoxemicrespiratory secondary to community acquired pneumonia. 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 Gunjan Raheel, Pharm.D., R.Ph., [facility] [phone] * JohnathanFela RDN, LD - 03/02/2024 9:33 AM CDT [...] not displayed. GI Function: Last BM Date: 06/20/24, [place] Stool Chart: Type 7: Watery, no solid pieces, Passing Flatus: Yes. Received tap water enema at 0000 on 03/02. Abdomen noted to be soft and rounded per hand wrapper operator on 03/02 at 0800. Imaging of abdomen on 03/01 showed Gas is visualized to the level of the distal descending colon, suggestive of a nonobstructive pattern. Estimated Needs: Calories: 3385-8615 calories/day Method to Estimate Energy Needs: kcal/kg [...] about patient's nutritional care please contact pager [phone] on weekdays 07:30-16:00 or [phone] on weekends/holidays ([facility]). * Wes Person M.B.B.S. - 03/02/2024 [...] as outlined below. PLAN BY SYSTEMS: 1. CHIP SEPARATOR: We are continuing his home antiepileptics. At [...] has been billed separately. * Gardenia Gordillo APRN C.N.P., M.S.N. - 03/02/2024 5:59 AM CDT SUBJECTIVE Brief Summary: Mr. Hilario is a 44-year-old male patient with medical comorbidities consisting of Paris-Gastaut syndrome, developmental delay, ALL treated with chemoradiation, [...] of Vancomycin while [facility]. [facility] [...] Family: Mother, Shelby Gardenia Gordillo, M.S.N, C.N.P, SUPERVISOR WINDING DEPARTMENT * Gregorio Comer R.R.T., L.R.T. - 03/01/2024 [...] bloody secretions * Gunjan Pickering Pharm.D., R.Ph., [facility] - 03/01/2024 11:38 AM CDT Pharmacist Progress Note Reason for admission: 44 year old male admitted to [facility] Medical ICU on 02/28/2024 for acute hypoxemicrespiratory secondary to community acquired pneumonia. 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 Family will provide guidance on when to use rescue benzodiazepines vs antqb450xv of Keppra if needed. Cardiovascular: HD stable, [...] speciation. Culture could represent contaminant. Gunjan Pickering, PharmMayD., R.Ph., BCCCP [phone] * Malini Lamb L.G.S.Riya., M.S.W. - 03/01/2024 [...] mother requested assistance in finding in home senior living services to help fill the gap. Social [...] patient is on a CAC waiver through [facility], his parent's/guardians gave this hospice social worker permission to contact [facility] to inquire about available services under the CAC waiver. Social Work called and left a message with the CAC worker. The patient receives 3 senior living visits per week through [facility]. Their services have been reconnected as has [facility] for patients oxygen needs and services through [facility] for patients TPN nutrition needs. ASSESSMENT / [...] will return to his parents home in [place], [place] at time of discharge. - The patient's family will provide transportation at time of discharge. - Social Work will continue to follow for supportive visits and discharge planning needs. 1.) Patient will return home with their previous nutrition services. Dialysis/Infusion - Admitted Since 02/28/2024 Service Provider Selected Services Address Phone Fax Patient Preferred [facility] [address], [facility] [phone] -- Contact: Tc They will continue to [...] Selected Services Address Phone Fax Patient Preferred [facility] [address] [facility] [phone] -- Contact: Jesica What Care are they providing for the patient: Shelter visit 7 days a week for 1 hour. How do we reach your agency on a weekend/holiday? [phone] NURSING: - Complete documentation in the Discharge Navigator including Nursing Report Info and Facility/NextLevel of Care Info - Call report and arrange for the patient???s first visit. - Send required packet of dismissal information with patient, including After Visit Summary and advance directive. PRIMARY SERVICE: - Please provide a non-[place] home health order for resumption of previous [...] Selected Services Address Phone Fax Patient Preferred [facility] Durable Medical Equipment [address] [phone] -- Contact: Imelda Respiratory Equipment : Concentrator [...] last replaced 12/28) #3 Acute DVT #4 Paris-Gastaut syndrome with recurrent seizures #5 Severe cognitive [...] male patient with medical comorbidities consisting of Paris-Gastaut syndrome, developmental delay, ALL treated with chemoradiation, [...] days - Follow up blood cultures with [facility] OBJECTIVE VITAL SIGNS I have reviewed the [...] of cares as outlined below. NEURO # Paris-Gastaut Syndrome # Developmental Delay # History of [...] Code Disposition: ICU Family: Mother, Shelby Tracey Ly.S.N, C.N.P, AKASH * Erasmo Lloyd APRN, C.N.PMay, [...] for today. Plan by Systems: Neuro: # Paris-Gastaut syndrome # Developmental delay (non verbal at baseline) # Recurrent seizures # History of remote lateral medullary stroke Plan Pain management: Tylenol, and Baclofen as needed. Holding [place] at this time. Home Medications to be [...] in the setting of hypotension GI: Diet: Cut Off Sawyer Consult entered to consider restarting feeds Endo: [...] obtained at outside facility. I communicated with [facility] today 02/29/2024, they state that both blood [...] -Social: Family updated : yes * Gunjan Pickering Pharm.D., R.Ph., [facility] - 02/29/2024 11:04 AM CDT Pharmacist Progress Note Reason for admission: 44 year old male admitted to [facility] Medical ICU on 02/28/2024 for acute hypoxemicrespiratory secondary to community acquired pneumonia. 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 Gunjan Pickering Pharm.D., R.Ph., [facility] [phone] * David Arreaga R.N., C.W.C.N. - 02/29/2024 10:30 AM CDT [facility] Wound RN consulted to assess Say [...] The patient's significant history includes cerebrovascular disease, Paris Gastaut Syndrome, chronic dysphagia with PEJ placement, [...] Changed by Unit based nurse Ongoing management Nursing;Wound/furniture restorer Wound 03/12/23 Other Moisture Associated Skin Damage [...] Primary Dressing Status Intact Changed by Wound welding technician Ongoing management Nursing;Wound/furniture restorer Head to toe skin assessment completed and [...] new wounds. * Gunjan Pickering Pharm.D., R.Ph., [facility] - 02/29/2024 9:26 AM CDT Images from the original note were not included. Admission Medication History Note Adherence issues: No concerns Medication list source: Family member, Outside facility MAR, and Pharmacy or dispense records Prior to Admission Medications Med List Status: Pharmacy Complete Set By: Gunjan Pickering, PharmMayD., R.Ph., [facility] at 02/29/2024 9:26 AM Taking? Last Dose [...] times a day as needed (seizures). 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 Home meds: provider reviewed seizure regimen with mom, will try to review home meds ASSESSMENT and PLAN: Neuro: - resume plane captain felbamate, clobazam, lamotrigine, levetiracetam, epidiolex, rufinamide [...] Joanne Joiner, PharmElsy., R.Ph. * Wes Person M.B.B.S. 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 - 03/10/2024 5:29 PM CDT REFERRAL SOURCE [facility] HSS B, operating room REASON FOR ADMISSION - s/p ex lap, right hemicolectomy for cecal perforation, mobilization of gallbladder, discontinuity, packing (quick clot, lap pad), TAC HISTORY OF PRESENT ILLNESS Mr. Hilario is a 44 year old male with a PMH of Paris-Gastaut syndrome, developmental delay, ALL treated with chemoradiation, [...] URETERAL STENT.; Surgeon: Bi Rivera M.D.; Location: [facility] OR OTHER SURGICAL HISTORY N/A Gastrocnemius recession (eg, Maren procedure).. RETROGRADE PYELOGRAM Left 04/05/2023 Procedure: RETROGRADE PYELOGRAM; Surgeon: Bi Rivera M.D.; Location: [facility] OR SINUS SURGERY 1987 URETEROSCOPY WITH LASER LITHOTRIPSY Left 04/05/2023 Procedure: URETEROSCOPY WITH LASER LITHOTRIPSY.; Surgeon: Bi Rivera M.D.; Location: [facility] OR SOCIAL HISTORY Social History Socioeconomic History [...] leon Transient ischemic attack Maternal Grandmother Champ tsjorge lniburt Hypertension Maternal Grandmother Champ tsvielka Sleep apnea Maternal Grandmother Champ tsjorge lniburt Depression Maternal Grandmother Champ leon Stroke Paternal [...] size, borderline reduced systolic function, RVSP 34, sxop-by-dxsndrcj tricuspid valve regurgitation, tiny posterior pericardial effusion. [...] Acute Remission (HCC) #2 Seizure (HCC) #3 Paris Gastaut Syndrome (HCC) #4 Pneumonia #5 Dysphagia [...] male patient with developmental delay secondary to Paris-Gastautsyndrome with medically refractory seizures, ALL treated with [...] Grandmother Champ leon Stroke Paternal Grandfather Suleman robertinocencio Diabetes Paternal Grandfather Suleman robertniburt Dementia Paternal Grandmother shauna hilario Gestational diabetes [...] hypoxemic respiratory failure secondary to aspiration pneumonia Paris-Gastaut syndrome Medically refractory epilepsy Cognitive delay The [...] will continue to follow along. Please page [phone] with additional questions. Addendum I re examined the patient around 12 30 p.m. and for p.m.. At 12:30 p.m. the patient opens his eyes to pain a kept them open for brief periods of time. Between 12 30 and 2 he kept his eyes opened intermittently and moved his head xdby-zw-stsv as per family and bedside nurse report. He is also triggering the ventilator. He received his antiseizure medications around 2 and became more somnolent. At 4:00 p.m. the neurologic examination was similar to the morning, likely due to recent administrationof antiseizure medications. We will continue to monitor clinically. Continue to avoid sedation. Continue AEDs at home doses. Bedside nurse, family, and CCM consultant internship updated. * Erasmo Lloyd APRN, C.N.P., D.N.P. - 02/28/2024 1:07 PM CDT SUBJECTIVE CHIEF COMPLAINT 44-year-old male patient with history of Paris-Gastaut syndrome presenting to the medical intensive care unit for further evaluation and management of acute respiratory failure. HISTORY OF PRESENT ILLNESS Say Hilario is a 44 y.o. male patient with history of Paris-Gastaut syndrome, developmental delay, ALL treated with chemoradiation, hx of lateral medullary stroke at age 12, seizures, who presents to [facility] Intensive Care unit via ambulance for further evaluation and management of acute respiratory failure in the setting of pneumonia (most likely community-acquired). Patient presented to [facility] Emergency Department the morning of 02/28/2024 for [...] his presentation to the emergency department at [facility], patient was started on BiPAP for hypoxia. [...] to the medical intensive care unit at [facility] alert, to IVs in place,as well [...] a 44-year-old male patient with history of Paris-Gastaut syndrome in the setting of community- acquired [...] lateral medullary stroke Plan Pain management: Tylenol, [place] and Baclofen as needed. Home Medications to [...] Elisa Chapman R.N. Authorized by: Tam Huang PMayAMay-Neel, M.S. Care team members present 1. Elisa [...] to release the adhesive from the skin. [email or web address] * Gregorio Comer R.R.T., L.R.T. - 03/01/2024 10:55 PM CDTAssociated Order(s): Invasive Line Invasive Line Performed by: Gregorio Comer R.R.T., L.R.T. Authorized by: Wes Person M.B.B.S. Location: ICU/PCU PROCEDURE DETAILS: Line type: arterial [...] PHYLICIA participated or performed the procedure. The consultant internship participated in or was aware of the procedure. Associated attestation - Tam Brower M.D. - 03/02/2024 5:23 AM CDT Procedure Attestations: Accredited PHYLICIA participated in the case, and the consultant internship was present for the entire case. * [...] ETT location: oral VL device: glide scope [place] scope blade size: 4 Tube size: 7.5 [...] PHYLICIA participated or performed the procedure. The consultant internship participated in or was aware of the procedure. Associated attestation - Tam Brower M.D. - 03/02/2024 5:23 AM CDT Procedure Attestations: Accredited PHYLICIA participated in the case, and the consultant internship was present for the entire case. documented in this encounter Consult Notes * Chiquita Grigsby M.D. 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 He also [...] of intractable epilepsy in the setting of Paris Gastaut Syndrome. Epilepsy is consulted for assistance [...] Food Allergies: NKFA Chewing/Swallowing Issues: VFSS with DIRECTOR AUDIENCE MARKETING last noted to be completed on 12/30/23 [...] kg) GI Function: Last BM Date: 03/08/24, [place] Stool Chart: Type 7: Watery, no solid [...] days Lab Units 03/10/24 1138 03/10/24 0824 03/10/24 0419 03/07/24 1149 03/07/24 1113 03/06/24 0601 03/06/24 0556 [...] days Lab Units 03/10/24 1138 03/10/24 0824 03/10/24 0419 03/07/24 1149 03/07/24 1113 SODIUM mmol/L -- -- [...] fluid changes. Estimated Needs: Total Calorie Needs: 4286-2941 calories/day (20-25 kcals/kg); 1504 HB Basal Method [...] the final TPN recommendations. Nutrition Support Service ([facility]) will continue to follow. Page [phone] with questions. * Aleks Hinkle M.D. - [...] as indicated from there. * Jacki Suh M.B.B.S. - 03/10/2024 10:56 AM CDTAssociated Order(s): General Surgery consult (hospital) - [facility] General Surgery consult (hospital) - [facility] Referring Provider: Tam Huang P.A.-C., M.S. Today's date: 03/10/2024 Reason for Consult: pneumoperitoneum History of Presenting Illness: Mr. Hilario is a 44 y.o. male with Paris Gastaut syndrome with recurrent seizures and cognitive [...] 1.28 Pertinent History Review: MEDICAL HISTORY - Ayaan-Gastaut -seizure disorder -cognitive delay (baseline of an 56-wxwul-xtp) -chronic constipation (requires enemas for bowel movements) -urinary retention (requires q.6 hour I/O cath) SURGICAL HISTORY No prior abdominal surgeries CURRENT MEDICATIONS No blood thinners or immunomodulators including steroids. ALLERGIES/CONTRAINDICATIONS No allergies to antibiotics FAMILY HISTORY Non-contributory SOCIAL HISTORY Lives with mother and father who are present at bedside. At baseline, interacts with his parents. He has a cognitive age of an 88-kzulx-vht. ROS: as mentioned in HPI, otherwise negative [...] URETER; Surgeon: Ermias Young M.D., M.P.H.; Location: [facility] EXCHANGE URETERAL STENT Left 04/05/2023 Procedure: EXCHANGE [...] Hilario is a 44 y.o. male with Paris-Gastaut, seizure disorder, and cognitive delay who was [...] Hinkle, who was in agreement. Please page [phone] (HSS-B) with any questions or concerns. Carolina OrtizBMayS. * Rick Casillas M.D. - 03/10/2024 10:17 AM CDTAssociated Order(s): Nutrition support service consult (hospital) SUBJECTIVE Nutrition support service consult (hospital) Referring Provider: Tam Huang P.A.-C., M.S. REASON [...] BMI (Calculated): 29.1 kg/m?? Total Calorie Needs: 0407-6928 (MSJ Basal 1430 kcals) calories/day Method to Estimate Energy Needs: Gregory-St Jeor (Basal) Weight Used for Equation Calculations: [...] URETER; Surgeon: Ermias Young M.D., M.P.H.; Location: [facility] EXCHANGE URETERAL STENT Left 04/05/2023 Procedure: EXCHANGE URETERAL STENT.; Surgeon: Bi Rivera M.D.; Location: [facility] OR OTHER SURGICAL HISTORY N/A Gastrocnemius recession (eg, Maren procedure).. RETROGRADE PYELOGRAM Left 04/05/2023 Procedure: RETROGRADE PYELOGRAM; Surgeon: Bi Rivera M.D.; Location: [facility] OR SINUS SURGERY 1987 URETEROSCOPY WITH LASER LITHOTRIPSY Left 04/05/2023 Procedure: URETEROSCOPY WITH LASER LITHOTRIPSY.; Surgeon: iB Rivera M.D.; Location: [facility] OR FAMILY [...] perform thistest. Please call NSS pager at [phone] at [facility] or [phone] at [facility] with any additional questions. BILLING/CODING Total visit 55 minutes. * Luaren Palencia M.S., CCC-DIRECTOR AUDIENCE MARKETING - 03/09/2024 2:50 PM CDT Speech Language Pathology Communication/Cognitive Evaluation- Acute Care Session Type: Evaluation Length of session: 12 minutes SUBJECTIVE Referred By: [facility] Trauma and General Surgery History: Mr. Hilario is a 44 y.o. male who was admitted to [facility] on 02/28/2024 due to worseningsymptoms related to [...] has been further complicated by functional ileus. DIRECTOR AUDIENCE MARKETING was consulted to assess consciousness with use of [facility] Coma Recovery Scale-Revised (CRS-R). Patient's family is [...] do so. Please do not hesitate tocontact DIRECTOR AUDIENCE MARKETING with questions or concerns. 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 - 03/08/2024 [...] URETERAL STENT.; Surgeon: Bi Rivera M.D.; Location: [facility] OR OTHER SURGICAL HISTORY N/A Gastrocnemius recession (eg, Maren procedure).. RETROGRADE PYELOGRAM Left 04/05/2023 Procedure: RETROGRADE PYELOGRAM; Surgeon: Bi Rivera M.D.; Location: [facility] OR SINUS SURGERY 1988 URETEROSCOPY WITH LASER LITHOTRIPSY Left 04/05/2023 Procedure: URETEROSCOPY WITH LASER LITHOTRIPSY.; Surgeon: Bi Rivera M.D.; Location: [facility] History of Present Illness: Pt presenting with severe encephalopathy and hypoxemic and hypercapnic respiratory failure requiring mechanical ventilation Prior Function/Occupational Profile Lives With: Family, Parent(s) Receives Help From: Family ADL Assistance: Required assistance IADL/Homemaking Assistance: Required assistance Driving: Does not drive Prior Mobility/Functional Transfers Level of [place]: Needs assistance Gait Devices/Wheelchair Used: Manual wheelchair [...] needs met and questions answered. Outcome Measures [facility] Inpatient Short Form: -[facility] Basic Mobility (V.2) How much help from [...] Climbing 3-5 steps with a railing?: Total -[facility] Basic Mobility (V.2) Raw Score: 6 -[facility] Basic Mobility (V.2) Standardized Score: 16.59 Interpretation: Clinicians answer the -[facility] Inpatient Short Form based on observed [...] CDTAssociated Order(s): IP CONSULT TO NEUROLOGY Say Hilario 03/08/24 11:32 AM CDT Hospital length [...] observation. We will follow sign off. Page [phone] with additional questions. Total time: 35 minutes [...] (02/22/2023), [place] Personal History, and Stroke (). Say Hilario has a past surgical history that includes Other Surgical History (N/A); CYSTOSCOPY INSERTION STENT URETER (Left, 02/22/2023); Sinus surgery (1987); Ureteroscopy with Laser Lithotripsy (Left, 04/05/2023); Exchange Ureteral Stent (Left, 04/05/2023); and Retrograde Pyelogram (Left, 04/05/2023). History of Present Illness: Say Hilario is a 44 y.o. male who was admitted to [facility] in [place] on 02/28/2024 for Acute Respiratory Failure With [...] discussed and coordination of care occurred with special education kindergarten teacher/Caregiver Present: Mom, Dad, Grandmother, Aunt Co-treat with [...] than 10 minutes of activity Outcome Measures: [facility] Inpatient Short Form: Putting on and taking [...] at or below 17 Clinicians answer the [facility] Inpatient Short Form based on observed patient [...] Cohen M.D., Ph.D. CT CT Job ID: [id number] * Sis Swain M.S., SHAYY, ADELA - 03/04/2024 9:33 AM CDTAssociated Order(s): IP CONSULT TO DIETITIAN DESCRIPTION Consult ASSESSMENT Nutrition consulted for positive MST >2. Patient already being followed by RDN - will sign off consult at this [...] about patient's nutritional care please contact pager [phone] on weekdays 07:30-16:00 or [phone] on weekends/holidays ([facility]). * Fela Mann, RDN, LD - 03/03/2024 9:38 AM CDTAssociated [...] 1.4 GI Function: Last BM Date: 03/02/24, [place] Stool Chart: Type 7: Watery, no solid pieces, Passing Flatus: Yes. Total of 8 BMs noted yesterday (03/02) that were all [place] stool type 7. Noted to havereceived lactulose yesterday Estimated Needs: Calories: 2051-3007 calories/day Method to Estimate Energy Needs: kcal/kg [...] about patient's nutritional care please contact pager [phone] on weekdays 07:30-16:00 or [phone] on weekends/holidays ([facility]). * Fritz Arteaga M.T.S. - 03/02/2024 12:50 PM CDTAssociated Order(s): IP CONSULT TO LOADING UNIT OPERATOR CRIMPING TOY ASSEMBLER WOOD [facility] Spiritual Care Consult Note Patient: Say Hilario Age:44 y.o. Location: [id number] Reason(s) for encounter: Spiritual Care contact to introduce spiritual care service and assess for potential spiritual care needs. Responded to Spiritual Care Consult. Spiritual Care contact for yazidi rites/sacramental encounter. Summary: I was able to meet with Say Hilario and his family. Say was unable to engage and his mom shared that he had pneumonia and much more better than before. Spiritual Assessment Faith Identification / Spiritual Practices: Say is a Sabianist. The sacrament of Anointing of the sick [...] current medical condition and life stage. Facilitated yazidi/spiritual practices (prayer, blessing, sacred texts, yazidi item) with theaim to reinforce patient's spiritual [...] requested. Chaplains can be contacted by paging [phone] ([place]) or [phone] (Hindu). * Fela Mann RDN, LD - 03/01/2024 8:23 AM CDTAssociated Order(s): IP CONSULT TO DIETITIAN; IP CONSULT TO DIETITIAN Clinical Nutrition: Initial Assessment Clinical Nutrition was requested to evaluate patient for tube feeding order consult SUBJECTIVE Mr. Hilario is a 44 y.o. male admitted for hypoxic and hypercapnic respiratory failure in the setting of community-acquired pneumonia. PMH: Ayaan-Gastaut syndrome, developmental delay, ALL treated with [...] been minimal to none. Patient does use [facility] as DME for tube feed supplies. He may require updated orders for increased cartons per day if intake remains minimal to none. Food Allergies: NKFA Chewing/Swallowing Issues: VFSS with DIRECTOR AUDIENCE MARKETING last noted to be completed on 12/30/23 [...] rate (ml/hr): 40 mL/hr; Daily goal v... ([facility] NTR PROVIDER TO INITIATE, DIETITIAN TO MANAGE TUBE FEEDS) Continuous Question Answer Comment Tube Feeding Formula: Peptamen 1.5 (RTH) Feeding route: PEG/Gastrostomy Feed options: Continuous Starting rate (ml/hr): 20 mL/hr Rate advancement (ml/hrs): 10 mL/hr every 12 hours Continuous goal rate (ml/hr): 40 mL/hr Daily goal volume (mL): 960 02/29/24 1833 02/29/24 1805 No oral nutrition, tube feeding allowed ([facility] PROVIDER TO INITIATE, DIETITIAN TOMANAGE TUBE FEEDS) [...] 68 kg Estimated Needs: Total Calorie Needs: 7723-7341 calories/day Method to Estimate Energy Needs: kcal/kg (22-25 kcal/kg) Weight Used for Equation Calculations: 66.9 kg Total Protein Needs: 80 - 100 grams/day (Method to Estimate Protein Needs (g/kg): 1.2 - 1.5 gm/kg) Weight Used to Calculate Protein Needs (Kg): 66.9 kg Nutrition Diagnosis: Inadequate oral intake related to dysphagia as evidenced by care home dependence on supplemental enteral feeds to [...] about patient's nutritional care please contact pager [phone] on weekdays 07:30-16:00 or [phone] on weekends/holidays ([facility]). * Malini Lamb, L.G.S.W., M.S.W. - 02/29/2024 1:34 PM CDTAssociated Order(s): IP CONSULT TO CARE MANAGEMENT SUBJECTIVE Social Work met with the family to address the care management consult for reconnection of both [facility] oxygen services. The patient was lying in bed sleeping, parents Shelby and Andrés were bedside. Social Work introduced self and explained both the role of an inpatient hospice social worker and purpose of the visit. Both Shelby and Andrés acknowledged understanding and were agreeable to meet. Shelby confirmed that patient's oxygen supplies are provided by [facility], HHC services are provided by [facility], as well as nutrition supplies are provided by [facility]. She also shared that the patient is on a [facility] waiver through [facility]. They are being provided minimal services through [facility] waiver at this time. The patient's parents inquired if this marketing writer had other resources as they would like more in home supports. They gave hospice social worker permission to contact [facility] and talkwith the [facility] hospice social worker to get information on what services the [facility] waiver covers. OBJECTIVE Say Hilario is a 44 year old male who resides at home with his parents. The patient is in need of full cares. His mother, Shelby, informed that when Say is feeling better, his baseline abilities are that of an 18 month old. The patient's parents are his full-time caregivers. The patient is on a [facility] waiver through [facility], his parent's/guardians gave this hospice social worker permission to contact [facility] to inquire about available services under the [facility] waiver. Social Work called and left a message with the [facility] worker. ASSESSMENT / PLAN ASSESSMENT The patient [...] discharged back to his parent's home in [place], [place] - The patient's parents will provide [...] Standard ETT (Active) Placement Date/Time: 03/01/24 (c) 223 Mask Ventilation: Easy mask Technique: Video laryngoscopy [...] cm H20-15 cm H20] 15 cm H20 VA SUP: [14 cm H20-15 cm H20] 14 [...] Gonzales 03/14/24 1:34 AM * Savannah Pelayo R.N. - 03/13/2024 5:09 PM CDT Problem: PAIN [...] Standard ETT (Active) Placement Date/Time: 03/01/24 (c) 7428 Mask Ventilation: Easy mask Technique: Video laryngoscopy [...] Left Radial (Active) Placement Date/Time: 03/10/24 (c) 143 Procedural Pause Completed: Yes Catheter Time Out Checklist Completed: Yes Hand Hygiene Performed Prior to Insertion: Yes Site Prep: Chlorhexidine (Preferred) Sterile Barriers Used : Cap;Gloves;Gown;Large d... Recent ABG: Recent Labs 03/13/24 1337 PO2 ART 145 H PCO2 ART 41 PH ART 7.38 HCO3 ART 24 BASE EXC ART 0 Pat Wetzel 03/13/24 4:21 PM CDT * Leah Jacome R.N. - 03/13/2024 9:11 AM CDT Feeding Tube Site Care Indication for Consult Tube site check Skin breakdown Tube Type and size: CALISTA Low Profile Transgastric jejunal (Polysomnographic Tech uTest (Envysion)) Size: 22 Grenadian, 3.5 cm length Connector Type: Small bore (ENFit) Date of tube replacement: 12/28 Replaced by: GI Skin integrity at tube site: The skin is less red today compared to when I saw it last Wednesday. The open area from the 3 to 6 o'clock area also looks improved and the tissue looks like it is healing. The wound welding technician saw the patient last Wednesday and has [...] Site care to be completed per Wound furniture restorer recommendations. Do not rotate tube. * Eris Phillips R.R.T., L.R.T. - 03/13/2024 5:52 AM CDT [...] (HCC) 02/22/2023 Sickness Motion Personal History Stroke ([facility]) brain stem stroke Significant Events During Current [...] Standard ETT (Active) Placement Date/Time: 03/01/24 (c) 9432 Mask Ventilation: Easy mask Technique: Video laryngoscopy [...] AM CDT * Amilcar Del Valle L.R.T., AUDIOMETRIC TECHNICIAN-ACCS - 03/12/2024 3:59 PM CDT Patient is [...] Standard ETT (Active) Placement Date/Time: 03/01/24 (c) 2207 Mask Ventilation: Easy mask Technique: Video laryngoscopy [...] Left Radial (Active) Placement Date/Time: 03/10/24 (c) 9204 Procedural Pause Completed: Yes Catheter Time Out Checklist Completed: Yes Hand Hygiene Performed Prior to Insertion: Yes Site Prep: Chlorhexidine (Preferred) Sterile Barriers Used : Cap;Gloves;Gown;Large d... Recent ABG: Recent Labs 03/12/24 1159 PO2 ART 139 H PCO2 ART 44 PH ART 7.37 HCO3 ART 25 BASE EXC ART 0 Pat Newby, AUDIOMETRIC TECHNICIAN-ACCS 03/12/24 3:59 PM CDT * Eris Phillips R.R.T., Pat - 03/12/2024 4:11 AM CDT Patient is [...] Standard ETT (Active) Placement Date/Time: 03/01/24 (c) 9648 Mask Ventilation: Easy mask Technique: Video laryngoscopy [...] EXC ART 0 Eris Phillips R.R.T., L.R.T. 03/12/24 4:11 AM CDT * Beatriz Oliveira R.R.TMay - 03/11/2024 2:35 AM CDT Patient is [...] Standard ETT (Active) Placement Date/Time: 03/01/24 (c) 9614 Mask Ventilation: Easy mask Technique: Video laryngoscopy [...] mmol/L 3 Electronically signed by: Beatriz Oliveira R.R.TMay 03/11/24 2:36 AM CDT * Melvin Langston [...] (HCC) 02/22/2023 Sickness Motion Personal History Stroke ([facility]) brain stem stroke Significant Events During Current [...] Standard ETT (Active) Placement Date/Time: 03/01/24 (c) 8585 Mask Ventilation: Easy mask Technique: Video laryngoscopy [...] and size: CALISTA Low Profile Transgastric jejunal (Polysomnographic Tech uTest (FARIHA)) Size: 22 Grenadian, 3.5 cm length Connector Type: Small bore [...] of thesite and they are uploaded into [employer]. She will requests the Wound furniture restorer reevaluate this site for recommendations of cares [...] Site care to be completed per Wound furniture restorer recommendations. Secure extension tubing to abdomen with a tube murphy (Flexi-Trak or other) to avoid tension at theinsertion site. Do not rotate tube. * Lima Gardner RMayN. - 03/10/2024 6:12 AM CDT Problem: POTENTIAL [...] stable. Noted intake and output. * Jess Salazar, R.R.T., L.R.T. - 03/10/2024 6:02 AM CDT Alert Information: Plan of Care: Pt started the shift on CPAP+5 PS+5 and 30%. At 0130 pt switched to ASV 100% P+5 and 30% due to pt going apneic. Pt continues orally intubated and mechanically ventilated. Principal Problem Acute Respiratory Failure With Hypoxia (HCC) ETT Standard ETT (Active) Placement Date/Time: 03/01/24 c) 7565 Mask Ventilation: Easy mask Technique: Video laryngoscopy [...] Skin integrity checked: yes * Iron Salmeron R.Violet. - 03/09/2024 5:52 PM CDT Shift Goals: [...] Standard ETT (Active) Placement Date/Time: 03/01/24 c) 4692 Mask Ventilation: Easy mask Technique: Video laryngoscopy [...] 12:22 AM CDT * Carole Ellis R.N., C.M.S.RMayN. - 03/08/2024 2:16 PM CDT Feeding Tube Site Care Indication for Consult: Feeding tube connector/adaptor Tube type and size: FAROOQ low profile Transgastric jejunal (Polysomnographic Tech uTest (Envysion)) Size: 22 Grenadian, 3.5 stoma length Connector Type: Small bore (ENFit) Date of tube placement: Replaced 12/30/2023 Placed by: GI Consulted with question of if tube could be put to LIS. Provided room RN with required adaptor to be placed on the tube. Order number [id number] ADAPTER ENFIT TO STD PRP Tube and tube site were not assessed on this visit. * Swati Vu R.R.Pedro., L.R.T. - 03/08/2024 11:47 AM CDT Patient [...] Standard ETT (Active) Placement Date/Time: 03/01/24 (c) 5996 Mask Ventilation: Easy mask Technique: Video laryngoscopy [...] Right Radial (Active) Placement Date/Time: 03/01/24 (c) 0781 Procedural Pause Completed: Yes Catheter Time Out Checklist Completed: Yes Hand Hygiene Performed Prior to Insertion: Yes Site Prep: Chlorhexidine (Preferred) Sterile Barriers Used : Cap;Gloves;Gown;Large d..May Vu R.R.T., Pat 03/08/24 11:47 AM CDT * Lima Gardner, [...] 03/08/2024415 by Lima Gardner, R.N. Outcome: Progressing 03/08/2024 0416 by Lima Gardner, R.N. Outcome: Progressing Problem: NEUROSENSORY - ADULT Goal: Achieves stable or improved neurological status 03/08/2024415 by Lima Gardner P, R.N. Outcome: Progressing 03/08/2024415 by Lima Gardner, [...] > 65mmhg, sats > 93%. Afebrile. * EvelinmelodyElile, R.R.T., C.R.T., L.R.T. 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 Ellie Coello R.R.T., Theo, Pat 03/08/24 3:25 AM CDT * Elisa Rock R.R.T., Pat - 03/07/2024 3:18 PM CDT Patient is [...] had been moved to right by nursing. [place] fast was noted to be was pushing on the lip, and moved to position above the lip. Patient placed on Spont 5/5 30%. This white/clear secretions were suctioned with lavage. 1100: Rockwood fast was changed, bleeding noted on lip. [...] Standard ETT (Active) Placement Date/Time: 03/01/24 (c) 2693 Mask Ventilation: Easy mask Technique: Video laryngoscopy [...] Right Radial (Active) Placement Date/Time: 03/01/24 (c) 0394 Procedural Pause Completed: Yes Catheter Time Out Checklist Completed: Yes Hand Hygiene Performed Prior to Insertion: Yes Site Prep: Chlorhexidine (Preferred) Sterile Barriers Used : Cap;Gloves;Gown;Large d... Heidi Rock R.R.T., L.R.TMay 03/07/24 3:18 PM CDT * Carole Ellis R.N., C.M.S.R.N. - 03/07/2024 1:02 PM CDT Feeding Tube Site Care Indication for Consult: Feeding tube site check Venting tube site check Tube type and size: FAROOQ low profile Transgastric jejunal (Polysomnographic Tech uTest (Envysion)) Size: 22 Grenadian, 3.5 stoma length Connector Type: Small bore [...] Standard ETT (Active) Placement Date/Time: 03/01/24 (c) 5600 Mask Ventilation: Easy mask Technique: Video laryngoscopy [...] Right Radial (Active) Placement Date/Time: 03/01/24 (c) 3337 Procedural Pause Completed: Yes Catheter Time Out Checklist Completed: Yes Hand Hygiene Performed Prior to Insertion: Yes Site Prep: Chlorhexidine (Preferred) Sterile Barriers Used : Cap;Gloves;Gown;Large d... Ellie Coello R.R.T., C.R.T., L.R.T. 03/07/24 3:31 AM CDT * Catherine Eaton R.N., CCRN - 03/06/2024 5:53 PM CDT Shift [...] 03/06/24 6:03 PM CDT * Abdon Elliott, RMayRMayT., L.R.T. - 03/06/2024 4:55 PM CDT Patient [...] Therapy provided patient transport to and from [facility] using ASV Mode 90%, PEEP 5 [...] Standard ETT (Active) Placement Date/Time: 03/01/24 (c) 4 Mask Ventilation: Easy mask Technique: Video laryngoscopy [...] Right Radial (Active) Placement Date/Time: 03/01/24 (c) 7164 Procedural Pause Completed: Yes Catheter Time Out [...] by: Abdon Elliott R.R.T., L.R.T. 03/06/24 * Erimas May, Fawad.R.TMay, TezRBarbara, AUDIOMETRIC TECHNICIAN-ACCS - 03/06/2024 5:38 AM CDT Patient is [...] changes 2340: Vent checked, no settings changes 0325: Vent checked, no settings changes Plan of Care: Continue to monitor respiratory status while in the ICU, maintain airway patency, and provide mechanical ventilation, RT to maintain, manage and wean ventilation and oxygenation per protocols and ABGvalues, Administer respiratory medications as ordered, and Manage hemodynamic lines per protocol Airway: ETT Standard ETT (Active) Placement Date/Time: 03/01/24 (c) 1516 Mask Ventilation: Easy mask Technique: Video laryngoscopy [...] Right Radial (Active) Placement Date/Time: 03/01/24 (c) 0754 Procedural Pause Completed: Yes Catheter Time Out Checklist Completed: Yes Hand Hygiene Performed Prior to Insertion: Yes Site Prep: Chlorhexidine (Preferred) Sterile Barriers Used : Cap;Gloves;Gown;Large d... Recent ABG: No results for input(s): PO2 ART, PCO2 ART, PH ART, HCO3 ART, BASE EXC ART in the last 24hours. Ermias May R.R.T., Pat, AUDIOMETRIC TECHNICIAN-ACCS 03/06/24 5:38 AM CDT * Abdon Elliott R.R.T., Pat - 03/05/2024 3:38 PM CDT Patient is [...] Standard ETT (Active) Placement Date/Time: 03/01/24 c) 1304 Mask Ventilation: Easy mask Technique: Video laryngoscopy [...] Right Radial (Active) Placement Date/Time: 03/01/24 (c) 1522 Procedural Pause Completed: Yes Catheter Time Out [...] (HCC) Electronically signed by: Abdon Elliott R.R.T., L.R.TMay 03/05/24 * Ermias May R.R.T., L.R.T., AUDIOMETRIC TECHNICIAN-[facility] - 03/05/2024 4:35 AM CDT Patient is [...] Standard ETT (Active) Placement Date/Time: 03/01/24 (c) 8864 Mask Ventilation: Easy mask Technique: Video laryngoscopy [...] Right Radial (Active) Placement Date/Time: 03/01/24 (c) 7293 Procedural Pause Completed: Yes Catheter Time Out Checklist Completed: Yes Hand Hygiene Performed Prior to Insertion: Yes Site Prep: Chlorhexidine (Preferred) Sterile Barriers Used : Cap;Gloves;Gown;Large d... Recent ABG: No results for input(s): PO2 ART, PCO2 ART, PH ART, HCO3 ART, BASE EXC ART in the last 24hours. Ermias May R.R.T., L.R.T., AUDIOMETRIC TECHNICIAN-ACCS 03/05/24 4:35 AM CDTf * Abdon Elliott [...] Standard ETT (Active) Placement Date/Time: 03/01/24 (c) 9854 Mask Ventilation: Easy mask Technique: Video laryngoscopy ETT Type: Standard ETT Tube Size: 7.5 mm Cuffed: Yes Location: Oral Airway secured at (Initial measurement) : 22 Grade View: Grade 2A Airway Ins... Oxygen Therapy: $Delivery Method: Ventilator FiO2 (%): 30 % Vent mode: Ventilator Mode: ASV FiO2 (%): [25 %-30 %] 30 % PEEP (cmH2O): [5 cm H20] 5 cm H20 VA SUP: [15 cm H20] 15 cm H20 Mean Airway Pressure: [6.7 cm H2O-7.7 cm H2O] 7.7 cm H2O Plateau pressure: Plateau (Pause) Airway Pressure: 17 cm H2O Compliance: Compliance (mL/cm H2O): 21.1 mL/cm H2O FiO2 (%): 30 % PEEP (cmH2O): 5 cm H20 Hemodynamic monitoring Arterial Line 03/01/24 Right Radial (Active) Placement Date/Time: 03/01/24 (c) 2323 Procedural Pause Completed: Yes Catheter Time Out [...] Vein (HCC) Electronically signed by: Abdon Elliott RMayR.T., L.R.T. 06/22/24 * Ermias May R.R.T., TezRBarbara, AUDIOMETRIC TECHNICIAN-[facility] - 03/04/2024 6:28 AM CDT Patient [...] Standard ETT (Active) Placement Date/Time: 03/01/24 (c) 4856 Mask Ventilation: Easy mask Technique: Video laryngoscopy [...] Right Radial (Active) Placement Date/Time: 03/01/24 (c) 8822 Procedural Pause Completed: Yes Catheter Time Out Checklist Completed: Yes Hand Hygiene Performed Prior to Insertion: Yes Site Prep: Chlorhexidine (Preferred) Sterile Barriers Used : Cap;Gloves;Gown;Large d... Recent ABG: No results for input(s): PO2 ART, PCO2 ART, PH ART, HCO3 ART, BASE EXC ART in the last 24hours. Ermias May R.R.T., TezRMayTMay, AUDIOMETRIC TECHNICIAN-ACCS 03/04/24 6:28 AM CDTf * Paula Cruz R.R.T., LMayR.T. - 03/03/2024 9:12 AM CDT Patient is [...] Standard ETT (Active) Placement Date/Time: 03/01/24 (c) 8852 Mask Ventilation: Easy mask Technique: Video laryngoscopy [...] Right Radial (Active) Placement Date/Time: 03/01/24 (c) 8587 Procedural Pause Completed: Yes Catheter Time Out Checklist Completed: Yes Hand Hygiene Performed Prior to Insertion: Yes Site Prep: Chlorhexidine (Preferred) Sterile Barriers Used : Cap;Gloves;Gown;Large d... Recent ABG: Recent Labs 03/02/24 1715 PO2 ART 88 PCO2 ART 41 PH ART 7.40 HCO3 ART 25 BASE EXC ART 0 Paula Cruz R.R.T., LMayR.T. 03/03/24 9:13 AM CDT * Anthony Montilla R.R.T., L.R.T., AUDIOMETRIC TECHNICIAN-ACCS - 03/03/2024 4:53 AM CDT Patient is [...] Right Radial (Active) Placement Date/Time: 03/01/24 (c) 9743 Procedural Pause Completed: Yes Catheter Time Out Checklist Completed: Yes Hand Hygiene Performed Prior to Insertion: Yes Site Prep: Chlorhexidine (Preferred) Sterile Barriers Used : Cap;Gloves;Gown;Large d... Recent ABG: Recent Labs 03/02/24 1715 PO2 ART 88 PCO2 ART 41 PH ART 7.40 HCO3 ART 25 BASE EXC ART 0 Anthony Montilla R.R.T., L.R.T., AUDIOMETRIC TECHNICIAN-ACCS 03/03/24 4:53 AM CDT * Teagan Beverly RMayN., CCRN - 03/02/2024 3:43 PM CDT Shift [...] stool after. Family at bedside throughout day, telegraph installer visited at bedside. Problem: RESPIRATORY - ADULT Goal: Achieves optimal ventilation and oxygenation Outcome: Progressing; Improvement in secretion burden noted. Pt still continues to have a small amount of thick waters/blood-tinged secretions w/ ETT suctioning. Electronically signed by: Teagan Beverly R.N., CCRN 03/02/24 3:50 PM CDT * Paula Cruz, Fawad.R.Pedro., L.R.T. - 03/02/2024 10:06 AM CDT Patient [...] Standard ETT (Active) Placement Date/Time: 03/01/24 (c) 1344 Mask Ventilation: Easy mask Technique: Video laryngoscopy [...] Right Radial (Active) Placement Date/Time: 03/01/24 (c) 0629 Procedural Pause Completed: Yes Catheter Time Out [...] unable to follow commands. Patient was intubated [id number] (03/01), and placed on a propofol drip [...] catheter tubing. PEG/J site continues to ooze [facility] blood - service aware. WOC nurse and PEG nurse assessed at bedside. Dressings changed frequently with skin protectant applied. Problem: RESPIRATORY - ADULT Goal: Achieves optimal ventilation and oxygenation Outcome: Progressing; see above. Electronically signed by: Teagan Beverly R.N., NIKKO 03/01/24 6:03 PM CDT * Paula Cruz, [...] back. 1015: Hand held percussion started to chemist helper in secretion clearance, performed for 15 [...] 4:03 PM CDT * Carole Ellis R.N., C.M.S.R.N. - 03/01/2024 12:49 PM CDT Feeding Tube Site Care Indication for Consult: Feeding tube site check Leaking tube Tube Type and size: FAROOQ low profile Transgastric jejunal (Polysomnographic Tech uTest (Envysion)) Size: 22 Grenadian, 3.5 stoma length Connector Type: Small bore [...] up with GI. * Ellie Coello R.R.T., C.RBarbara, L.R.T. - 03/01/2024 6:05 AM CDT Patient [...] Rate (L/min): 5 L/min Ellie Coello R.R.T., CMayR.T., L.R.T. 03/01/24 6:05 AM CDT * Zayda Nielson RJuli - 03/01/2024 5:20 AM CDT Shift Goals: [...] (HCC) Electronically signed by: Abdon Elliott R.R.T., L.R.TMay 02/29/24 4:50 PM CDT * Ellie Coello R.R.TMay, C.R.T., L.R.T. - 02/29/2024 4:56 AM CDT [...] NPA in and it was removed around 033. Plan of Care: Continue to monitor respiratory [...] BASE EXC ART -2 Ellie Coello R.R.T., NeelRMayTMay, L.R.TMay 02/29/24 4:56 AM CDT * Paula Cruz R.R.T., L.RMayTMay - 02/28/2024 4:26 PM CDT Patient is [...] wet cough and crackles in the lung rois, patient was NT suctioned was not able [...] airway Size (mm): 6.5 Placed by:Paula Cruz AUDIOMETRIC TECHNICIAN Oxygen Therapy: $Delivery Method: Aerosol mask FiO2 (%): 35 % Flow Rate (L/min): 8 L/min Paula Cruz R.R.T., TezRMayTMay 02/28/24 4:26 PM CDT documented in this encounter OR Notes * Op Note - Pascual Solorzano M.D. - 03/11/2024 2:50 PM CDT Pre-op Diagnosis Pneumoperitoneum Post-op Diagnosis Pneumoperitoneum Silk Folder A first grade teacher actively participated and was necessary for one [...] placed over the ileocolonic anastomosis. A 19 Grenadian TAMARA drain was placed in the infra hepatic space at the gallbladder fossa. This came out the right abdomen. Another 19 Grenadian TAMARA drain was placed in the right [...] to close the skin over a 19 Grenadian TAMARA drain which came out the left [...] M.D. * Op Note - Jacki Suh M.B.BMaySMay - 03/10/2024 2:51 PM CDT Pre-op Diagnosis None Post-op Diagnosis None Silk Folder A first grade teacher actively participated and was necessary for one [...] distal ileum and colon were divided using [id number] mm purple EndoGIA staple loads. The mesentery [...] 44 y.o. male patient with history of Paris-Gastaut syndrome, developmental delay, ALL treated with chemoradiation, hx of lateral medullary stroke at age 12, seizures, who presents to [facility] Intensive Care unit via ambulance for further evaluation and management of acute respiratory failure in the setting of pneumonia. Patient presented to [facility] Emergency Department the morning of 02/28/2024 for [...] his presentation to the emergency department at [place], patient was started on BiPAP for hypoxia. [...] to the medical intensive care unit at [facility] alert, two IVs in place, as [...] (ICU) status Respiratory Care Routine respiratory use [id number] sk reminder at 8am and 8pm until discontinued starting 02/28/2024 Adult Oxygen Therapy Continuous (RT) Respiratory Care Routine respiratory use [id number] sk reminder at 8am and 8pm until [...] INVASIVE CATHETER Routine 03/01/2024 10:55 PM CDT VA BRONCHOSCOPY W ALVEOLAR LAVAGE Routine 03/01/2024 10:30 [...] CDT Acute Respiratory Failure With Hypoxia (HCC) VA INTUB W ETT Routine 03/01/2024 10:00 PM [...] 02/29/2024 12:22 PM CDT RESPIRATORY PANEL, PCR, READING SPECIALIST Routine 02/29/2024 9:12 AM CDT MRSA/STAPHYLOCOCCUS AUREUS, [...] APRN, C.N.P., D.N.P. LAB BLOOD NON ADD-ON [facility] [address] [place] [address], [facility] STMA [facility] [address] [place] [address] * (ABNORMAL) Blood Gas with Coox, Arterial (03/13/2024 1:37 PM CDT) Pathologist [facility] pO2 145(H) 83 - 108 mm Hg [...] 1:37 PM CDT 03/13/2024 1:45 PM CDT Neel Acevedo APRNN.Bisi, D.N.P. LAB BLOOD NON ADD-ON [facility] [address] [place] [address] * Staph aureus / MRSA, Nasal, PCR (03/13/2024 9:28 AM CDT) Staphylococcus aureus, PCR Negative Negative 03/13/2024 11:51 AM CDT DTL MRSA, PCR Negative Negative 03/13/2024 11:51 AM CDT DTL Swab (Nares) 03/13/2024 9:28 AM CDT 03/13/2024 10:12 AM CDT Girish Acevedo APRN.N.PMay, D.N.P. LAB MICROBIOLOGY - GENERAL ORDERABLES Performing Organization Address [facility] Co de Phone Number [facility] [address] [place] [address], [facility] DTL [facility] [address] [place] [address] * Patient Status (03/13/2024 9:28 AM CDT) O2 Flow 30.0 L/min 03/13/2024 9:31 AM CDT [facility] Device Vent 03/13/2024 9:31 AM CDT [facility] Spont. breaths/min 14 03/13/2024 9:31 AM CDT [facility] Blood 03/13/2024 9:28 AM CDT 03/13/2024 9:31 AM CDT Xiao Wheeler APRN, Girish.N.P., D.N.P. LAB BLOOD NON ADD-ON [facility] [address] [place] [address], [place] STMA [facility] [address] [place] [address] * (ABNORMAL) Blood Gas with Coox, Venous (03/13/2024 9:28 AM CDT) [facility] pO2, Venous, B 52 Not applicable mm [...] LAB BLOOD NON ADD-ON Performing Organization Address City/[facility] Co de Phone Number [facility] [address] [place] [address] * Patient Status (03/13/2024 9:00 AM CDT) FIO2 0.30 0.21=AIR 03/13/2024 9:0 4 AM CDT [facility] Device Vent 03/13/2024 9:0 4 AM CDT [facility] Blood 03/13/2024 9:00 AM CDT 03/13/2024 9:04 AM CDT Girish Acevedo APRN.N.P., D.N.P. LAB BLOOD NON ADD-ON Performing Organization Address [facility] Co de Phone Number [facility] [address] [place] [address] * (ABNORMAL) Blood Gas with Coox, Arterial [...] 9:00 AM CDT 03/13/2024 9:04 AM CDT Alesha Shi APRN, Girish.N.P., D.N.P. LAB BLOOD NON ADD-ON Performing Organization Address City/[facility]/ZIP Co de Phone Number [facility] [address] [place] [address], [place] [address] * Lactate (03/13/2024 8:50 AM CDT) Lactate, P 0.6 0.5 - 2.2 mmol/L 03/13/2024 9:07 AM CDT ST[facility] Blood (Blood, Venous) 03/13/2024 8:50 AM CDT 03/13/2024 8:54 AM CDT Girish Acevedo APRN.N.P., D.N.P. LAB BLOOD NON ADD-ON [facility] [address] [place] [address], [facility] [address] [place] [address] * Patient Status (03/13/2024 8:37 AM CDT) FIO2 0.30 0.21=AIR 03/13/2024 8:4 0 AM CDT [facility] Device Vent 03/13/2024 8:4 0 AM CDT [facility] Blood 03/13/2024 8:37 AM CDT 03/13/2024 8:40 AM CDT Girish Acevedo APRN.N.P., D.N.P. LAB BLOOD NON ADD-ON [facility] [address] [place] [address], [facility] [facility] [address] [place] [address] * (ABNORMAL) Blood Gas with Coox, Venous (03/13/2024 8:37 AM CDT) [facility] Signature pO2, Venous, B 112 Not applicable mm Hg 03/13/2024 8:43 AM CDT STMA pCO2, Venous, B 44 41 - 51 mm Hg 03/13/2024 8:43 AM CDT STMA pH, Venous, B 7.38 7.32 - 7.43 pH 8:43 AM CDT STMA Base Excess, Venous, [...] 8:37 AM CDT 03/13/2024 8:40 AM CDT Neel Acevedo APRNNAlexandra., D.N.P. LAB BLOOD NON ADD-ON [facility] [address] [place] [address], [facility] STMA [facility] [address] [place] [address] * Glucose, POCT (03/13/2024 7:39 AM CDT) Glucose, POCT, B 118 70 - 140 mg/dL 03/13/2024 7:43 AM CDT PCLX Site ARTLINE 03/13/2024 7:43 AM CDT PCLX Last Intake TPN 03/13/2024 7:43 AM CDT PCLX Blood 03/13/2024 7:39 AM CDT 03/13/2024 7:43 AM CDT Unknown Provider LAB POCT ORDERABLES- MANUAL POC [facility] [address] [place] [address], [facility] PCLX [facility] POC [address] [place] [address] * DX Chest Portable 1 View (03/13/2024 [...] superior cavoatrial junction. Subdiaphragmatic enterictube. Neel Hernandez APRNNLuis Fernando IMTayla QUITA GNOSTIC IMAGING PROCEDURES * Apixaban, Anti-Xa, P (03/13/2024 4:35 AM CDT) Apixaban, Anti-Xa, P 14 see interpretation ng/mL 03/13/2024 11:59 AM CDT DTL Comment: ----ADDITIONAL INFORMATION---- This test has been modified from the travel clerk's instructions. Its performance characteristics were determined by [facility] in a manner consistent with CLIA [...] 4:35 AM CDT 03/13/2024 7:08 AM CDT Girish Esparza APRN.N.PMay LAB BLOOD NON ADD-ON Performing Organization Address City/[facility] Co de Phone Number [facility] [address] [place] [address], [facility] [place] [place] [address] [place] [address] * (ABNORMAL) Prothrombin Time (PT) (03/13/2024 4:35 [...] M.D. LAB BLOOD ADD-ON Performing Organization Address City/[facility]/ZIP Co de Phone Number [facility] [address] [place] [address], [facility] [place] [place] [facility] [place] [address] [place] [address] * Phosphorus Inorganic (03/13/2024 4:35 AM CDT) Phosphorus (Inorganic), S 3.5 2.5 - 4.5 mg/dL 03/13/2024 5:31 AM CDT DTL Blood (Blood, Venous) 03/13/2024 4:35 AM CDT 03/13/2024 5:08 AM CDT Girish Hernandez APRN.N.P. LAB BLO OD ADD-ON [facility] [address] [place] [address], [facility] [address] [place] [address] * Magnesium (03/13/2024 4:35 AM CDT) Magnesium, S 1.9 1.7 - 2.3 mg/dL 03/13/2024 5:31 AM CDT DTL Blood (Blood, Venous) 03/13/2024 4:35 AM CDT 03/13/2024 5:08 AM CDT Girish Hernandez APRN.N.P. LAB BLO OD ADD-ON [facility] [address] [place] [address], [facility] [address] [place] [address] * (ABNORMAL) Hepatic Function Panel (03/13/2024 4:35 [...] Neel Hernandez APRNNMayPMay LAB BLO OD ADD-ON [facility] [address] [place] [address], [facility] [place] [facility] [place] [address] [place] [address] * (ABNORMAL) Basic Metabolic Panel (03/13/2024 4:35 [...] LAB BLO OD ADD-ON Performing Organization Address City/[facility] [place] [address] * Calcium, Ionized (03/13/2024 4:34 AM CDT) Pathologist [facility] Calcium, Ionized, S 4.81 4.57 - 5.43 mg/dL 03/13/2024 5:19 AM CDT DTL Comment: ----ADDITIONAL INFORMATION---- This test has been modified from the travel clerk's instructions. Its performance characteristics were determined by [facility] in a manner consistent with CLIA requirements. This test has not been cleared or approved by the U.S. Food and Drug Administration. pH for Ionized Calcium 7.47 7.35 - 7.48 03/13/2024 5:19 AM CDT DTL Blood (Blood, Venous) 03/13/2024 4:34 AM CDT 03/13/2024 5:07 AM CDT Tiffanie Cagle APRN C.N.P. LAB BLO OD NON ADD-ON Performing Organization Address City/[facility] [place] [address] * (ABNORMAL) CBC without Differential (03/13/2024 4:34 AM CDT) Pathologist [facility] Hemoglobin 8.3(L) 13.2 - 16.6 g/dL 03/13/2024 [...] CDT 03/13/2024 4:52 AM CDT Neel Hernandez APRNNMayPMay LAB BLO OD ADD-ON [address] [address], [address] [address] * (ABNORMAL) Thromboelastograph, Kaolin, Blood (03/13/2024 4:31 [...] 03/13/2024 4:37 AM CDT Samuel Belle APRN, C.N.PMay LAB BLOOD NON ADD-ON Performing Organization Address City/[facility]/ZIP Co de Phone Number [facility] [address] STMA [facility] [address] [place] [address] * Cortisol (03/13/2024 4:25 AM CDT) Cortisol, Random, S 16 mcg/dL 03/13/2024 9:53 AM CDT DTL Comment: ----REFERENCE VALUE---- AM ([id number]): 4.8-20 PM ([id number]): 2.5-12 Blood 03/13/2024 4:25 AM CDT 03/13/2024 9:22 AM CDT Paul Lee Pharm.D., R.Ph., [facility] LAB BLOOD ADD-ON Performing Organization Address City/[facility] Co de Phone Number [facility] [address] [place] [address], [facility] DTL [facility] [address] [place] [address] * Cystatin C with Estimated GFR (03/13/2024 4:25 AM CDT) eGFR by Cystatin C 91 >60 mL/min/BSA [...] Ph.D. LAB BLOOD ADD-ON Performing Organization Address [facility] Co de Phone Number [facility] [address] [place] [address], [facility]TF[facility] [place] [facility] [place] [address] [place] [address] * (ABNORMAL) CBC without Differential (03/12/2024 11:55 [...] LAB BLOOD ADD- ON Performing Organization Address [facility]/ZIP Co de Phone Number [facility] [address] [place] [address], [facility] [address] [place] [address] * (ABNORMAL) Thromboelastograph, Kaolin, Blood (03/12/2024 11:53 PM CDT) [facility] Signature R, Kaolin, TEG 30.2(H) 4.0 - 9.0 [...] Belle APRN, C.N.P. LAB BLOOD NON ADD-ON [facility] [address] [place] [address], [facility] [address] [place] [address] * Transfuse Pooled Cryoprecipitate:Other (Specify); altered TEG; [...] Units (03/12/2024 9:40 PM CDT) Greta Figueroa, B.Ch., B.A.O. B LOOD TRANSFUSION ORDERABLES * Glucose, POCT (03/12/2024 9:37 PM CDT) [facility] Glucose, POCT, B 90 70 - 140 mg/dL 03/12/2024 9:39 PM CDT PCLX Site ARTLINE 03/12/2024 9:39 PM CDT PCLX Last Intake TPN 03/12/2024 9:39 PM CDT PCLX Blood 03/12/2024 9:37 PM CDT 03/12/2024 9:39 PM CDT Unknown Provider LAB POCT ORDERABLES- MANUAL POC [facility] [address] [place] [address], [facility] PCLX [facility] POC [address] [place] [address] * Type and Screen (with Reflex Antibody ID) (03/12/2024 6:39 PM CDT) [facility] ABORh O Pos Not applicable 03/12/2024 7:11 PM CDT STRM Antibody Screen Negative Negative 03/12/2024 7:22 PM CDT STRM Type & Screen Expiration 03/15/2024 23:59 03/12/2024 7:11 PM CDT STRM Testing Location Kim DEFAULT 03/12/2024 6:50 PM CDT STRM Blood (Blood, Venous) 03/12/2024 6:39 PM CDT 03/12/2024 6:50 PM CDT Bernie AtkinsonCh., B.A.O. L AB BLOOD BANK TEST ORDERABLES Performing Organization Address [facility] Co de Phone Number [facility] [address] [place] [address], [facility] [address] [place] [address] * (ABNORMAL) Thromboelastograph, Kaolin, Blood (03/12/2024 5:18 PM CDT) R, Kaolin, TEG 18.6(H) 4.0 - 9.0 [...] CDT 03/12/2024 5:22 PM CDT Greta Figueroa, Uzair.Ch., B.A.O. L AB BLOOD NON ADD-ON Performing Organization Address City/[facility]/ZIP Co de Phone Number [facility] [address] [place] [address], [facility] [address] [place] [address] * (ABNORMAL) CBC without Differential (03/12/2024 5:18 PM CDT) [facility] Hemoglobin 7.7(L) 13.2 - 16.6 g/dL 03/12/2024 [...] Figueroa, B.Ch., B.A.O. L AB BLOOD ADD-ON [facility] [address] [place] [address], [facility] [address] [place] [address] * Glucose, POCT (03/12/2024 5:17 PM CDT) [facility] Glucose, POCT, B 114 70 - 140 mg/dL 03/12/2024 5:20 PM CDT PCLX Site ARTLINE 03/12/2024 5:20 PM CDT PCLX Last Intake TPN 03/12/2024 5:20 PM CDT PCLX Blood 03/12/2024 5:17 PM CDT 03/12/2024 5:20 PM CDT Unknown Provider LAB POCT ORDERABLES- MANUAL POC [facility] [address] [place] [address], [facility] PCLX [facility] [place] POC [address] [place] [address] * Transfuse Fresh Frozen Plasma :Bleeding with altered coagulation; 180 mL/hr (03/12/2024 4:46 PM CDT) Greta Figueroa, B.Ch., B.A.O. B LOOD TRANSFUSION ORDERABLES * Transfuse Fresh Frozen Plasma :Bleeding with altered coagulation; 180 mL/hr, 1 Units (03/12/2024 4:46 PM CDT) Greta Figueroa, B.Ch., B.A.O. B LOOD TRANSFUSION ORDERABLES * (ABNORMAL) Thromboelastograph, Kaolin, Blood [...] 1:18 PM CDT 03/12/2024 1:22 PM CDT Bg Hernandez APRNP. LAB BLO OD NON ADD-ON Performing Organization Address City/[facility]/[place] [address] * Patient Status (03/12/2024 11:59 AM CDT) FIO2 0.26 0.21=AIR 03/12/2024 12: 04 PM CDT STMA Device VENT 03/12/2024 12: 04 PM CDT STMA Blood 03/12/2024 11:5 9 AM CDT 03/12/2024 12:04 PM CDT Tiffanie Dennis Gurjit BUSTOS C.N.P. LAB BLO OD NON ADD-ON Performing Organization Address City/[facility] [place] [address] * (ABNORMAL) Basic Metabolic Panel (03/12/2024 11:59 [...] 11:59 AM CDT 03/12/2024 12:05 PM CDT Tiffanie Cagle APRN C.N.P. LAB BLO OD ADD-ON [facility] [address] [place] [address], [facility] [address] [place] [address] * (ABNORMAL) Blood Gas with Coox, Arterial (03/12/2024 11:59 AM CDT) pO2 139(H) 83 - 108 mm Hg [...] BLO OD NON ADD-ON Performing Organization Address [facility]/ZIP Co de Phone Number [facility] [address] STMA [facility] [address] [place] [address] * (ABNORMAL) CBC without Differential (03/12/2024 11:59 AM CDT) Hemoglobin 8.4(L) 13.2 - 16.6 g/dL 03/12/2024 [...] 11:59 AM CDT 03/12/2024 12:05 PM CDT Tiffanie Cagle APRN, C.N.P. LAB BLO OD ADD-ON Performing Organization Address City/[facility]/ZIP Co de Phone Number [facility] [address] [place] [address], [place] STMA [facility] [address] [place] [address] * (ABNORMAL) Glucose, POCT (03/12/2024 11:58 AM CDT) Glucose, POCT, B 143(H) 70 - 140 mg/dL 03/12/2024 12:02 PM CDT PCLX Site ARTLINE 03/12/2024 12:02 PM CDT PCLX Last Intake TPN 03/12/2024 12:02 PM CDT PCLX Blood 03/12/2024 11:5 8 AM CDT 03/12/2024 12:02 PM CDT Unknown Provider LAB POCT ORDERABLES- MANUAL [facility] [address] [place] [address], [facility] PCLX [facility] POC [address] [place] [address] * (ABNORMAL) Glucose, POCT (03/12/2024 8:51 AM CDT) Glucose, POCT, B 143(H) 70 - 140 mg/dL 03/12/2024 8:52 AM CDT PCLX Site ARTLINE 03/12/2024 8:52 AM CDT PCLX Last Intake TPN 03/12/2024 8:52 AM CDT PCLX Blood 03/12/2024 8:51 AM CDT 03/12/2024 8:52 AM CDT Unknown Provider LAB POCT ORDERABLES- MANUAL [facility] [address] [place] [address], [facility] PCLX [facility] POC [address] [place] [address] * DX Chest Portable 1 View (03/12/2024 [...] 2:55 AM CDT 03/12/2024 3:01 AM CDT Neel Esparza APRNNLuis Fernando LAB BLOOD NON ADD-ON [facility] [address] [place] [address] * Calcium, Ionized (03/12/2024 2:45 AM CDT) Calcium, Ionized, B 4.69 4.65 - 5.30 mg/dL 03/12/2024 2:51 AM CDT STMA Blood 03/12/2024 2:45 AM CDT 03/12/2024 2:48 AM CDT Neel Hernandez APRNNLuis Fernando LAB BLO OD NON ADD-ON Performing Organization Address City/[facility]/ZIP Co de Phone Number [facility] [address] [place] [address] * Patient Status (03/12/2024 2:45 AM CDT) FIO2 0.26 0.21=AIR 03/12/2024 2:4 8 AM CDT STMA Device Vent 03/12/2024 2:4 8 AM CDT STMA Blood 03/12/2024 2:45 AM CDT 03/12/2024 2:48 AM CDT Girish Hernandez APRN.N.Bisi LAB BLO OD NON ADD-ON [facility] [address] [place] [address] * (ABNORMAL) Blood Gas with Coox, Arterial [...] APRN C.N.P. LAB BLO OD NON ADD-ON [facility] [address] [place] [address], [facility] [address] [place] [address] * Lactate (03/12/2024 2:44 AM CDT) Lactate, P 0.8 0.5 - 2.2 mmol/L 03/12/2024 4:06 AM CDT DTL Blood (Blood, Arterial) 03/12/2024 2:44 AM CDT 03/12/2024 3:46 AM CDT Neel Esparza APRNNLuis Fernando LAB BLOOD NON ADD-ON Performing Organization Address City/[facility]/ZIP Co de Phone Number [facility] [address] [place] [address] * (ABNORMAL) Phosphorus Inorganic (03/12/2024 2:44 AM CDT) Pathologist [facility] Phosphorus (Inorganic), S 4.6(H) 2.5 - 4.5 mg/dL 03/12/2024 5:01 AM CDT DTL Blood (Blood, Venous) 03/12/2024 2:44 AM CDT 03/12/2024 3:46 AM CDT Neel Hernandez APRNN.Bisi LAB BLO OD ADD-ON Performing Organization Address City/[facility] Co de Phone Number [facility] [address] [place] [address] * Magnesium (03/12/2024 2:44 AM CDT) Pathologist [facility] Magnesium, S 2.0 1.7 - 2.3 mg/dL 03/12/2024 5:01 AM CDT DTL Blood (Blood, Venous) 03/12/2024 2:44 AM CDT 03/12/2024 3:46 AM CDT Girish Hernandez APRN.N.PMay LAB BLO OD ADD-ON Performing Organization Address City/[facility] Co de Phone Number [facility] [address] [place] [address] * (ABNORMAL) Basic Metabolic Panel (03/12/2024 2:44 [...] 2:44 AM CDT 03/12/2024 3:46 AM CDT Tiffanie Cagle APRN, C.N.P. LAB BLO OD ADD-ON [facility] [address] [place] [address], [facility] [place] [facility] [place] [address] [place] [address] * (ABNORMAL) CBC without Differential (03/12/2024 2:44 AM CDT) Hemoglobin 9.8(L) 13.2 - 16.6 g/dL 03/12/2024 [...] 2:44 AM CDT 03/12/2024 3:31 AM CDT Neel Hernandez APRNNMayPMay LAB BLO OD ADD-ON Performing Organization Address City/[facility]/ZIP Co de Phone Number [facility] [address] [place] [address], [facility] [place] [facility] [place] [address] [place] [address] * Glucose, POCT (03/11/2024 9:11 PM CDT) [facility] Glucose, POCT, B 110 70 - 140 mg/dL 03/11/2024 9:13 PM CDT PCLX Site ARTLINE 03/11/2024 9:13 PM CDT PCLX Last Intake TPN 03/11/2024 9:13 PM CDT PCLX Blood 03/11/2024 9:11 PM CDT 03/11/2024 9:13 PM CDT Unknown Provider LAB POCT ORDERABLES- MANUAL POC [facility] [address] [place] [address], [facility] PCLX [facility] POC [address] [place] [address] * Calcium, Ionized (03/11/2024 6:48 PM CDT) Calcium, Ionized, B 4.74 4.65 - 5.30 mg/dL 03/11/2024 6:58 PM CDT STMA Blood (Blood, Venous) 03/11/2024 6:48 PM CDT 03/11/2024 6:53 PM CDT Samuel Belle APRN, C.N.P. LAB BLOOD NON ADD-ON Performing Organization Address City/[facility]/ZIP Co de Phone Number [facility] [address] STMA [facility] [address] [place] [address] * (ABNORMAL) Phosphorus Inorganic (03/11/2024 6:48 PM CDT) Phosphorus (Inorganic), S 4.6(H) 2.5 - 4.5 mg/dL 03/11/2024 7:57 PM CDT DTL Blood (Blood, Venous) 03/11/2024 6:48 PM CDT 03/11/2024 7:44 PM CDT Samuel Belle APRN C.N.P. LAB BLOOD ADD- ON Performing Organization Address [facility] Co de Phone Number [facility] [address] [place], [place] [address] [place] [address] [address] [place] [address] * Magnesium (03/11/2024 6:48 PM CDT) Magnesium, S 1.7 1.7 - 2.3 mg/dL 03/11/2024 7:57 PM CDT DTL Blood (Blood, Venous) 03/11/2024 6:48 PM CDT 03/11/2024 7:44 PM CDT Samuel Belle APRN, C.N.P. LAB BLOOD ADD- ON [facility] [address] DTL [facility] [address] [place] [address] * Patient Status (03/11/2024 6:48 PM CDT) [facility] FIO2 0.30 0.21=AIR 03/11/2024 6:53 PM CDT STMA Device Vent 03/11/2024 6:53 PM CDT STMA Spont. breaths/min 17 03/11/2024 6:53 PM CDT STMA Blood 03/11/2024 6:48 PM CDT 03/11/2024 6:53 PM CDT Neel Hernandez APRNNMayPMay LAB BLO OD NON ADD-ON [facility] [address] [place] [address], [facility] STMA [facility] [address] [place] [address] * (ABNORMAL) Basic Metabolic Panel (03/11/2024 6:48 PM CDT) [facility] Potassium, P 4.0 3.6 - 5.2 mmol/L [...] CDT 03/11/2024 6:53 PM CDT Tiffanie Cagle APRN, C.N.P. LAB BLO OD ADD-ON [facility] [address] [place] [address], [facility] STMA [facility] [address] [place] [address] * (ABNORMAL) Blood Gas with Coox, Arterial [...] BLO OD NON ADD-ON Performing Organization Address City/[facility] Co de Phone Number [facility] [address] [place], [place] [address] [place] [address] [address] [place] [address] * (ABNORMAL) CBC without Differential (03/11/2024 6:48 PM CDT) Hemoglobin 10.0(L) 13.2 - 16.6 g/dL 03/11/2024 [...] CDT 03/11/2024 6:53 PM CDT Girish Hernandez APRN.N.PMay LAB BLO OD ADD-ON Performing Organization Address City/[facility]/ZIP Co de Phone Number [facility] [address] [place] [address], [facility] [address] [place] [address] * Thromboelastograph, Kaolin, Blood (03/11/2024 6:45 PM [...] 6:45 PM CDT 03/11/2024 6:50 PM CDT Neel Hernandez APRNNLuis Fernando LAB BLO OD NON ADD-ON [facility] [address] [place] [address], [facility] [address] [place] [address] * DX Abdomen Portable Anterior Posterior 1 [...] IMG DIAGNOSTIC RAVI GING PROCEDURES * Transfuse Fresh [...] CDT Devin Gonzales M.D. LAB BLOOD ADD-ON Performing Organization Address [facility] Co de Phone Number [facility] [address] [place] [address], [facility] [address] [place] [address] * Transfuse Red Blood Cells : (03/11/2024 3:52 PM CDT) Devin Gonzales M.D. BLOOD TRANSFUSION OR DERABLES * Transfuse Platelets :Active bleed with anti-PLT therapies; 180 mL/hr; No Special Requirements (03/11/2024 3:34 PM CDT) Tiffanie Cagle APRN, C.N.P. BLOOD T RANSFUSION ORDERABLES * Transfuse Platelets :Active bleed with anti-PLT therapies; 180 mL/hr; No Special Requirements, 1 Units (03/11/2024 3:34 PM CDT) Tiffanie Cagle APRN, C.N.P. BLOOD T RANSFUSION ORDERABLES * Lactate (03/11/2024 2:06 PM CDT) Pathologist [facility] Lactate, P 1.0 0.5 - 2.2 mmol/L 03/11/2024 2:22 PM CDT STMA Blood (Blood, Venous) 03/11/2024 2:06 PM CDT 03/11/2024 2:10 PM CDT Tiffanie Cagle APRN, C.N.P. LAB BLO OD NON ADD-ON Performing Organization Address City/[facility]/ZIP Co de Phone Number [facility] [address] [place] [address], [facility] [address] [place] [address] * (ABNORMAL) CBC without Differential (03/11/2024 2:06 PM CDT) [facility] Hemoglobin 7.9(L) 13.2 - 16.6 g/dL [...] 2:06 PM CDT 03/11/2024 2:10 PM CDT Tiffanie Cagle APRN C.N.P. LAB BLO OD ADD-ON [facility] [address] [place] [address], [facility] [address] [place] [address] * (ABNORMAL) Thromboelastograph, Kaolin, Blood (03/11/2024 2:05 [...] 2:05 PM CDT 03/11/2024 2:10 PM CDT Tiffanie Cagle APRN, C.N.P. LAB BLO OD NON ADD-ON [facility] [address] [place] [address], [facility] STMA [facility] [address] [place] [address] * Transfuse Red Blood Cells : (03/11/2024 1:12 PM CDT) Tiffanie Cagle APRN, C.N.P. BLOOD T RANSFUSION ORDERABLES * Transfuse Red Blood Cells : , 2 Units (03/11/2024 1:12 PM CDT) Tiffanie Cagle APRN, C.N.P. BLOOD T RANSFUSION ORDERABLES * (ABNORMAL) Glucose, POCT (03/11/2024 11:51 AM CDT) [facility] Glucose, POCT, B 147(H) 70 - 140 mg/dL 03/11/2024 11:53 AM CDT PCLX Site Capillary 03/11/2024 11:53 AM CDT PCLX Blood 03/11/2024 11:5 1 AM CDT 03/11/2024 11:53 AM CDT Unknown Provider LAB POCT ORDERABLES- MANUAL Performing Organization Address City/[facility]/ZIP Co de Phone Number POC [facility] [address] [place] [address], [facility] PCLX [facility] POC [address] [place] [address] * Transfuse Fresh Frozen Plasma :Bleeding with [...] Unknown Provider LAB POCT ORDERABLES- MANUAL POC [facility] [address] [place] [address], [facility] PCLX [facility] POC [address] [place] [address] * Patient Status (03/11/2024 6:21 AM CDT) FIO2 0.30 0.21=AIR 03/11/2024 6:2 7 AM CDT [facility] Device Vent 03/11/2024 6:2 7 AM CDT [facility] Blood 03/11/2024 6:21 AM CDT 03/11/2024 6:27 AM CDT Girish Esparza APRN.N.P. LAB BLOOD NON ADD-ON [facility] [address] [place] [address], [facility] STMA [facility] [address] [place] [address] * (ABNORMAL) Blood Gas with Coox, Arterial [...] Site Art Line 03/11/2024 6:27 AM CDT STMA Comment:Wilfredo's test not don e. Blood (Blood, Arterial) 03/11/2024 6:21 AM CDT 03/11/2024 6:27 AM CDT Samuel Belle APRN, C.N.P. LAB BLOOD NON ADD-ON Performing Organization Address City/[facility]/ZIP Co de Phone Number [facility] [address] [place] [address], [facility] STMA [facility] [address] [place] [address] * Phosphorus Inorganic (03/11/2024 6:20 AM CDT) Phosphorus (Inorganic), S 3.1 2.5 - 4.5 mg/dL 03/11/2024 7:51 AM CDT DTL Blood (Blood, Venous) 03/11/2024 6:20 AM CDT 03/11/2024 7:30 AM CDT Samuel Belle APRN, C.N.P. LAB BLOOD ADD- ON Performing Organization Address City/[facility]/ZIP Co de Phone Number [facility] [address] [place] [address], [facility] DTL [facility] [address] [place] [address] * Magnesium (03/11/2024 6:20 AM CDT) Magnesium, S 2.0 1.7 - 2.3 mg/dL 03/11/2024 7:51 AM CDT DTL Blood (Blood, Venous) 03/11/2024 6:20 AM CDT 03/11/2024 7:30 AM CDT Girish Esparza APRN.N.P. LAB BLOOD ADD- ON Performing Organization Address City/[facility]/ZIP Co de Phone Number [id number] [place] [address] * Calcium, Ionized (03/11/2024 6:20 AM CDT) Calcium, Ionized, S 4.93 4.57 - 5.43 mg/dL 03/11/2024 7:48 AM CDT DTL Comment: ----ADDITIONAL INFORMATION---- This test has been modified from the travel clerk's instructions. Its performance characteristics were determined by [facility] in a manner consistent with CLIA requirements. This test has not been cleared or approved by the U.S. Food and Drug Administration. pH for Ionized Calcium 7.46 7.35 - 7.48 03/11/2024 7:48 AM CDT DTL Blood (Blood, Venous) 03/11/2024 6:20 AM CDT 03/11/2024 7:32 AM CDT Samuel Belle APRN, C.N.P. LAB BLOOD NON ADD-ON Performing Organization Address City/[facility]/ZIP Co de Phone Number [facility] [address] [place] [address], [address] [address] * (ABNORMAL) Hepatic Function Panel (03/11/2024 6:20 [...] Belle APRN, C.N.P. LAB BLOOD ADD- ON [facility] [address] [place] [address], [facility] [address] [place] [address] * (ABNORMAL) CBC without Differential (03/11/2024 6:20 [...] - 14.5 % 03/11/2024 7:58 AM CDT [facility] Platelet Count 179 135 - 317 x10(9)/L 03/11/2024 7:58 AM CDT PM Leukocytes 8.4 3.4 - 9.6 x10(9)/L 03/11/2024 7:58 AM CDT [facility] Blood (Blood, Venous) 03/11/2024 6:20 AM CDT 03/11/2024 7:14 AM CDT Neel Esparza APRNNMayPMay LAB BLOOD ADD- ON [facility] [address] [place] [address], [facility] [address] [place] [address] * (ABNORMAL) Basic Metabolic Panel (03/11/2024 6:20 AM CDT) [facility] Potassium, S 4.4 3.6 - 5.2 [...] Belle APRN, C.N.P. LAB BLOOD ADD- ON [facility] [address] [place] [address], [facility] [address] [place] [address] * Triglycerides (03/11/2024 6:20 AM CDT) Triglycerides 75 mg/dL 03/11/2024 7:50 AM CDT DT Comment: ----REFERENCE VALUE---- Normal: <150 mg/dL Borderline High: 150-199 mg/dL High: 200-499 mg/dL Very High: > or =500 mg/dL Fasting (8 HR or more) Unknown 03/11/2024 6:21 AM CDT DT Blood (Blood, Venous) 03/11/2024 6:20 AM CDT 03/11/2024 7:30 AM CDT Rufus Meng LAB BLOOD ADD-O N [facility] [address] [place] [address], [facility] [address] [place] [address] * (ABNORMAL) Thromboelastograph, Kaolin, Blood (03/11/2024 6:18 [...] AM CDT 03/11/2024 6:22 AM CDT Savannah Meng LAB BLOOD NON ADD-O N [facility] [address] [place] [address], [facility] [address] [place] [address] * DX Chest Portable 1 View (03/11/2024 [...] Subdiaphragmaticenteric tube. Prominent cardiomediastinal silhouette. Samuel Belle APRN, C.N.P. IMG DIAGNOSTIC IMAGING PROCEDURES * Transfuse Fresh [...] (ABNORMAL) Glucose, POCT (03/10/2024 9:25 PM CDT) [facility] Glucose, POCT, B 168(H) 70 - 140 mg/dL 03/10/2024 9:27 PM CDT PCLX Site ARTLINE 03/10/2024 9:27 PM CDT PCLX Last Intake NPO 03/10/2024 9:27 PM CDT PCLX Blood 03/10/2024 9:25 PM CDT 03/10/2024 9:27 PM CDT Unknown Provider LAB POCT ORDERABLES- MANUAL POC [facility] [address] [place] [address], [facility] PCLX [facility] POC [address] [place] [address] * (ABNORMAL) Troponin T, 2 Hour with [...] Wheeler APRN, Girish.N.P., D.N.P. LAB BLOOD TROPONIN [facility] [address] [place] [address] * Patient Status (03/10/2024 6:13 PM CDT) Pathologist [facility] FIO2 0.40 0.21=AIR 03/10/2024 6:18 PM CDT STMA Device Vent 03/10/2024 6:18 PM CDT STMA Spont. breaths/min 15 03/10/2024 6:18 PM CDT STMA Blood 03/10/2024 6:13 PM CDT 03/10/2024 6:18 PM CDT Xiao Wheeler APRN, C.N.P., D.N.P. LAB BLOOD NON ADD-ON [facility] [address] [place] [address] * Calcium, Ionized (03/10/2024 6:13 PM CDT) Calcium, Ionized, B 4.88 4.65 - 5.30 mg/dL 03/10/2024 6:21 PM CDT STMA Blood (Blood, Venous) 03/10/2024 6:13 PM CDT 03/10/2024 6:18 PM CDT Xiao Neel Mon APRNN.P., D.N.P. LAB BLOOD NON ADD-ON [facility] [address] [place] [address], [facility] STMA [facility] [address] [place] [address] * (ABNORMAL) Blood Gas with Coox, Arterial (03/10/2024 6:13 PM CDT) pO2 139(H) 83 - 108 mm Hg [...] 6:13 PM CDT 03/10/2024 6:18 PM CDT Neel Tony APRNN.P., D.N.P. LAB BLOOD NON ADD-ON [facility] [address] [place] [address], [facility] [address] [place] [address] * (ABNORMAL) Troponin T, Baseline with 2 Hour/6 Hour Reflex Biomarker Panel (03/10/2024 6:12 PM CDT) Troponin T, Baseline, 5th gen 18(H) <=15 ng/L 03/10/2024 6:34 PM CDT STMA Blood (Blood, Venous) 03/10/2024 6:12 PM CDT 03/10/2024 6:18 PM CDT Neel Tony APRNN.P., D.N.P. LAB BLOOD TROPONIN Performing Organization Address City/[facility]/ZIP Co de Phone Number [facility] [address] [place] [address], [facility] [address] [place] [address] * Phosphorus Inorganic (03/10/2024 6:12 PM CDT) Phosphorus (Inorganic), S 4.0 2.5 - 4.5 mg/dL 03/10/2024 7:18 PM CDT DTL Blood (Blood, Venous) 03/10/2024 6:12 PM CDT 03/10/2024 7:03 PM CDT Girish Tony APRN.N.P., D.N.P. LAB BLOOD ADD-ON [facility] [address] [place] [address], [facility] DTL [facility] [address] [place] [address] * Magnesium (03/10/2024 6:12 PM CDT) Magnesium, S 1.9 1.7 - 2.3 mg/dL 03/10/2024 7:18 PM CDT DTL Blood (Blood, Venous) 03/10/2024 6:12 PM CDT 03/10/2024 7:03 PM CDT Girish Tony APRN.N.P., D.N.P. LAB BLOOD ADD-ON Performing Organization Address City/[facility]/ZIP Co de Phone Number [facility] [address] [place], [place] [address] [place] [address] 200 [place] [address] * Lactate (03/10/2024 6:12 PM CDT) Lactate, P 0.7 0.5 - 2.2 mmol/L 03/10/2024 6:32 PM CDT STMA Blood (Blood, Venous) 03/10/2024 6:12 PM CDT 03/10/2024 6:18 PM CDT Xiao Wheeler APRN, C.N.P., D.N.P. LAB BLOOD NON ADD-ON Performing Organization Address [facility]/ZIP Co de Phone Number [facility] [address] [place], [place] [phone] [place], [place] [address]A [facility] [address] [place] [address] * (ABNORMAL) Hepatic Function Panel (03/10/2024 6:12 [...] PM CDT 03/10/2024 7:03 PM CDT Xiao Wheeelr APRN, C.N.P., D.N.P. LAB BLOOD ADD-ON [facility] [address] [place] [address], [facility] [place] [address] [place] [address] * (ABNORMAL) CBC without Differential (03/10/2024 6:12 PM CDT) Hemoglobin 8.8(L) 13.2 - 16.6 g/dL 03/10/2024 [...] CDT 03/10/2024 6:18 PM CDT Neel Tony APRNNLuis Fernando, D.N.P. LAB BLOOD ADD-ON [facility] [address] [place] [address], [facility] STMA [facility] [address] [place] [address] * (ABNORMAL) Basic Metabolic Panel (03/10/2024 6:12 PM CDT) Potassium, P 3.6 3.6 - 5.2 mmol/L [...] Neel Tony APRNN.P., D.N.P. LAB BLOOD ADD-ON Performing Organization Address City/[facility] Co de Phone Number [facility] [address] [place], [place] [address] [place] [address] 200 [place] [address] * (ABNORMAL) Thromboelastograph, Kaolin, Blood (03/10/2024 6:08 [...] 6:08 PM CDT 03/10/2024 6:14 PM CDT Girish Tony APRN.N.P., D.N.P. LAB BLOOD NON ADD-ON [facility] [address] [place] [address], [facility] [address] [place] [address] * DX Chest Portable 1 View (03/10/2024 5:45 PM CDT) Anatomical Region Laterality Modality Chest, Thoracic RST LOS, Tho racic ARZ LOS, Thoracic FLA LOS N/A Digital Radiography Impressions 03/10/2024 9:13 PM CDT Since 03/02/2024, improved lung volumes and decreased patchy atelectasis/consolidation at the bases. New subdiaphragmatic enteric tube with tip outside the [id number], sidehole overlying the expected stomach. New partially [...] New subdiaphragmatic enteric tubewith tip outside the [id number], sidehole overlying the expectedstomach. New partially visualized surgical material right upper abdomen, correlate with intentionally packedmaterial during temporary closure. Otherwise no significant change. ETTwith tip in midthoracic trachea. Right PICC with tip at the SVC/RAjunction. Elevated right hemidiaphragm. Bibasilar atelectasis. Xiao Wheeler APRN C.N.P., D.N.P. IMG DIAGNOSTIC IMAGING PROCEDURES * ECG 12 Lead (03/10/2024 5:37 PM CDT) [facility] Ventricular Rate ECG/Min 70 BPM MUSE VA Interval 128 ms MUSE QRSD Interval 82 ms MUSE QT Interval 436 ms MUSE QTC Interval 470 ms MUSE P [place] -11 degrees MUSE R [place] 38 degrees MUSE T Wave [place] 18 degrees MUSE 03/10/2024 5:37 PM CDT [...] C.N.P., D.N.P. ECG ORDERABLES Performing Organization Address City/[facility]/ZIP Co de Phone Number MUSE NA * Patient Status (03/10/2024 4:39 PM CDT) Temperature 35.8 37.0 deg C 03/10/2024 4:40 PM CDT STMA FIO2 0.50 0.21=AIR 03/10/2024 4:40 PM CDT STMA Blood 03/10/2024 4:39 PM CDT 03/10/2024 4:39 PM CDT Ayad Georges APRN, KRISHAN, DNAP LAB BLOO D NON ADD-ON Performing Organization Address [facility] de Phone Number [facility] [address] [place] [address], [facility] STMA [facility] [address] [place] [address] * (ABNORMAL) Platelet Count (03/10/2024 4:39 PM CDT) Platelet Count 132(L) 135 - 317 x10(9)/L 03/10/2024 4:48 PM CDT STMA Blood (Blood, Arterial Line) 03/10/2024 4:39 PM CDT 03/10/2024 4:39 PM CDT Renea Pelletier M.D. LAB BLOOD ADD-ON Performing Organization Address [facility] Co de Phone Number [facility] [address] [place] [address], [facility] [address] [place] [address] * (ABNORMAL) Prothrombin Time (PT) (03/10/2024 4:39 PM CDT) [facility] Prothrombin Time, P 18.9(H) 9.4 - 12.5 sec 03/10/2024 4:59 PM CDT [facility] INR 1.7 0.9 - 1.1 03/10/2024 4:59 PM CDT [facility] Comment: ----ADDITIONAL INFORMATION---- Standard intensity warfarin therapeutic range: 2.0 to 3.0 ?? High intensity warfarin therapeutic range: 2.5 to 3.5 Blood (Blood, Arterial Line) 03/10/2024 4:39 PM CDT 03/10/2024 4:39 PM CDT Renea Pelletier M.D. LAB BLOOD ADD-ON [facility] [address] [place] [address], [facility] [address] [place] [address] * (ABNORMAL) Fibrinogen (03/10/2024 4:39 PM CDT) [facility] Fibrinogen, P 457(H) 200 - 393 mg/dL 03/10/2024 4:59 PM CDT [facility] Blood (Blood, Arterial Line) 03/10/2024 4:39 PM CDT 03/10/2024 4:39 PM CDT Renea Pelletier M.D. LAB BLOOD ADD-ON [facility] [address] [place] [address], [facility] [address] [place] [address] * (ABNORMAL) APTT (Activated Partial Thromboplastin Time) (03/10/2024 4:39 PM CDT) [facility] Activated Partial Thrombopl Time, P 40(H) 25 - 37 sec 03/10/2024 5:01 PM CDT STMA Blood (Blood, Arterial Line) 03/10/2024 4:39 PM CDT 03/10/2024 4:39 PM CDT Renea Pelletier M.D. LAB BLOOD ADD-ON [facility] [address] [place] [address] * Glucose, Whole Blood (03/10/2024 4:39 PM CDT) [facility] Glucose 119 70 - 140 mg/dL 03/10/2024 4:41 PM CDT [facility] Blood (Blood, Arterial Line) 03/10/2024 4:39 PM CDT 03/10/2024 4:39 PM CDT Renea Pelletier M.D. LAB BLOOD ADD-ON Performing Organization Address City/[facility]/ZIP Co de Phone Number [facility] [address] [place], [place] [phone] [place] [address] 200 [place] [address] * (ABNORMAL) Potassium, Blood (03/10/2024 4:39 PM CDT) Pathologist [facility] Potassium, B 3.1(L) 3.6 - 5.2 mmol/L 03/10/2024 4:42 PM CDT STMA Blood (Blood, Arterial Line) 03/10/2024 4:39 PM CDT 03/10/2024 4:39 PM CDT Renea Pelletier M.D. LAB BLOOD NON ADD-ON Performing Organization Address City/[facility]/ZIP Co de Phone Number [facility] [address] [place], [place] [phone] [place] [address] 200 [place] [address] * Sodium, B (03/10/2024 4:39 PM CDT) Sodium, B 141 135 - 145 mmol/L 03/10/2024 4:41 PM CDT STMA Blood (Blood, Arterial Line) 03/10/2024 4:39 PM CDT 03/10/2024 4:39 PM CDT Renea Pelletier M.D. LAB BLOOD NON ADD-ON Performing Organization Address City/[facility]/ZIP Co de Phone Number [facility] [address] [place], [place] [phone] [place] [address] [address] [place] [address] * (ABNORMAL) Calcium, Ionized (03/10/2024 4:39 PM CDT) Calcium, Ionized, B 5.44(H) 4.65 - 5.30 mg/dL 03/10/2024 4:42 PM CDT STMA Blood (Blood, Arterial Line) 03/10/2024 4:39 PM CDT 03/10/2024 4:39 PM CDT Renea Pelletier M.D. LAB BLOOD NON ADD-ON Performing Organization Address City/[facility]/ZIP Co de Phone Number [facility] [address] [place] [address], [facility] [address] [place] [address] * (ABNORMAL) Blood Gas with Coox, Arterial (03/10/2024 4:39 PM CDT) pO2 90 83 - 108 mm Hg [...] Renea Pelletier M.D. LAB BLOOD NON ADD-ON [facility] [address] [place] [address], [facility] [address] [place] [address] * Transfuse Red Blood Cells : (03/10/2024 [...] 03/10/2024 3:25 PM CDT Ayad Georges APRN, BOX FOLDING MACHINE OPERATOR, DNAP LAB BLOO D NON ADD-ON Performing Organization Address City/[facility] Co de Phone Number [facility] [address] [place] [address], [facility] [address] [place] [address] * Glucose, Whole Blood (03/10/2024 3:25 PM CDT) Glucose 106 70 - 140 mg/dL 03/10/2024 3:27 PM CDT STMA Blood (Blood, Arterial Line) 03/10/2024 3:25 PM CDT 03/10/2024 3:25 PM CDT Renea Pelletier M.D. LAB BLOOD ADD-ON Performing Organization Address City/[facility] Co de Phone Number [facility] [address] [place] [address], [facility] [address] [place] [address] * (ABNORMAL) Potassium, Blood (03/10/2024 3:25 PM CDT) Potassium, B 3.2(L) 3.6 - 5.2 mmol/L 03/10/2024 3:27 PM CDT STMA Blood (Blood, Arterial Line) 03/10/2024 3:25 PM CDT 03/10/2024 3:25 PM CDT Renea Pelletier M.D. LAB BLOOD NON ADD-ON Performing Organization Address City/[facility]/ZIP Co de Phone Number [facility] [address] [place] [address], [facility] [address] [place] [address] * Sodium, B (03/10/2024 3:25 PM CDT) Sodium, B 140 135 - 145 mmol/L 03/10/2024 3:27 PM CDT STMA Blood (Blood, Arterial Line) 03/10/2024 3:25 PM CDT 03/10/2024 3:25 PM CDT Renea Pelletier M.D. LAB BLOOD NON ADD-ON [facility] [address] [place], [place] [phone] [place] [address] [address] [place] [address] * (ABNORMAL) Calcium, Ionized (03/10/2024 3:25 PM CDT) Calcium, Ionized, B 4.59(L) 4.65 - 5.30 mg/dL 03/10/2024 3:27 PM CDT STMA Blood (Blood, Arterial Line) 03/10/2024 3:25 PM CDT 03/10/2024 3:25 PM CDT Renea Pelletier M.D. LAB BLOOD NON ADD-ON Performing Organization Address City/[facility] Co de Phone Number [facility] [address] [place], [place] [phone] [place] [address] 200 [place] [address] * (ABNORMAL) Blood Gas with Coox, Arterial [...] LAB BLOOD NON ADD-ON Performing Organization Address City/[facility] [place] [address] * (ABNORMAL) Prothrombin Time (PT) (03/10/2024 1:07 PM CDT) Pathologist [facility] Prothrombin Time, P 17.4(H) 9.4 - 12.5 sec 03/10/2024 1:20 PM CDT STMA INR 1.6 0.9 - 1.1 03/10/2024 1:20 PM CDT STMA Comment: ----ADDITIONAL INFORMATION---- Standard intensity warfarin therapeutic range: 2.0 to 3.0 ?? High intensity warfarin therapeutic range: 2.5 to 3.5 Blood (Blood, Venous) 03/10/2024 1:07 PM CDT 03/10/2024 1:13 PM CDT Tam Huang P.A.-C. M.S. LAB B LOOD ADD-ON Performing Organization Address City/[facility]/ZIP Co de Phone Number [facility] [address] [place] [address] * Glucose, POCT (03/10/2024 11:38 AM CDT) Pathologist [facility] Glucose, POCT, B 96 70 - 140 mg/dL 03/10/2024 11:39 AM CDT PCLX Comment: Glucose results collected from venous catheters may be falsely elevated. Site Venline 03/10/2024 11:39 AM CDT PCLX Last Intake NPO 03/10/2024 11:39 AM CDT PCLX Blood 03/10/2024 11:3 8 AM CDT 03/10/2024 11:39 AM CDT Unknown Provider LAB POCT ORDERABLES- MANUAL POC [facility] [address] [place] [address], [facility] PCLX [facility] POC [address] [place] [address] * Lactate (03/10/2024 11:38 AM CDT) Pathologist [facility] Lactate, P 0.8 0.5 - 2.2 mmol/L 03/10/2024 12:05 PM CDT STMA Blood (Blood, Venous) 03/10/2024 11:38 AM CDT 03/10/2024 11:43 AM CDT Tam Huang P.A.-C. M.S. LAB B LOOD NON ADD-ON Performing Organization Address City/[facility]/ZIP Co de Phone Number [facility] [address] [place] [address], [facility] STMA [facility] [address] [place] [address] * CT Abdomen Pelvis with IV Contrast [...] junction. Findings were discussed with Tam JEWELL (#[id number]) at 03/10/2024 10:37 AM. Procedure Note Estelle [...] junction. Findings were discussed with Tam JEWELL (#[id number]) at 0:37 AM. IMPRESSION: 1. New large volume pneumoperitoneum, likely secondary to gastricperforation at the site of the percutaneous gastrojejunostomy balloon. 2. Slightly worsened functional ileus. 3. Persistent consolidative/groundglass opacities in the bibasilar lowerlungs. 4. Decreased inflammation of the distal sigmoid colon and rectum. Basil Miranda APRN, C.N.P. IMG CT [facility] OCEDURES * Glucose, POCT (03/10/2024 8:24 AM CDT) Glucose, POCT, B 91 70 - 140 mg/dL 03/10/2024 8:25 AM CDT PCLX Site Capillary 03/10/2024 8:25 AM CDT PCLX Last Intake NPO 03/10/2024 8:25 AM CDT PCLX Blood 03/10/2024 8:24 AM CDT 03/10/2024 8:26 AM CDT Unknown Provider LAB POCT ORDERABLES- MANUAL POC [facility] [address] [place] [address], [facility] PCLX [facility] POC [address] [place] [address] * DX Abdomen Portable Anterior Posterior 1 [...] Dr. Jesenia PÉREZ at 8:36 AM on03/10/2024. Girish Jennings APRN.N.P., M.S.N. G DIAGNOSTIC IMAGING PROCEDURES * (ABNORMAL) CBC [...] 5:16 AM CDT Rashad Sal APRN, C.N.P., M.SMayNMay DELGADO BLOOD ADD-ON Performing Organization Address City/[facility] Co de Phone Number [facility] [address] [place] [address] * Phosphorus Inorganic (03/10/2024 4:19 AM CDT) Phosphorus (Inorganic), S 2.8 2.5 - 4.5 mg/dL 03/10/2024 5:44 AM CDT DTL Blood (Blood, Venous) 03/10/2024 4:19 AM CDT 03/10/2024 5:27 AM CDT Rashad Sal APRN, C.N.P., M.S.NMay DELGADO BLOOD ADD-ON Performing Organization Address [facility] Co de Phone Number [facility] [address] [place] [address] * (ABNORMAL) Magnesium (03/10/2024 4:19 AM CDT) Magnesium, S 2.4(H) 1.7 - 2.3 mg/dL 03/10/2024 5:44 AM CDT DTL Blood (Blood, Venous) 03/10/2024 4:19 AM CDT 03/10/2024 5:27 AM CDT Neel Jennings APRNNAlexandra., M.S.NMay DELGADO BLOOD ADD-ON Performing Organization Address City/[facility] Co de Phone Number [facility] [address] [place] [address], [facility] DTL [facility] [address] [place] [address] * (ABNORMAL) Basic Metabolic Panel (03/10/2024 4:19 AM CDT) Pathologist [facility] Potassium, S 3.8 3.6 - 5.2 mmol/L [...] CDT Rashad Sal APRN, C.N.P., M.S.N. NEAL B BLOOD ADD-ON [facility] [address] [place] [address], [facility] DTL [facility] [address] [place] [address] * (ABNORMAL) Cystatin C with Estimated GFR (03/10/2024 4:19 AM CDT) Pathologist [facility] eGFR by Cystatin C 60(L) >60 mL/min/BSA [...] AM CDT Rashad Sal APRN, C.N.P., M.S.N. LA B BLOOD ADD-ON [facility] [address] [place] [address], [facility] [place] [address] [place] [address] * Glucose, POCT (03/10/2024 2:18 AM CDT) Pathologist [facility] Glucose, POCT, B 92 70 - 140 mg/dL 03/10/2024 2:20 AM CDT PCLX Site Capillary 03/10/2024 2:20 AM CDT PCLX Last Intake NPO 03/10/2024 2:20 AM CDT PCLX Blood 03/10/2024 2:18 AM CDT 03/10/2024 2:20 AM CDT Unknown Provider LAB POCT ORDERABLES- MANUAL POC [facility] [address] [place] [address], [facility] PCLX [facility] POC [address] [place] [address] * Glucose, POCT (03/09/2024 8:38 PM CDT) Glucose, POCT, B 105 70 - 140 mg/dL 03/09/2024 8:40 PM CDT PCLX Site Capillary 03/09/2024 8:40 PM CDT PCLX Last Intake NPO 03/09/2024 8:40 PM CDT PCLX Blood 03/09/2024 8:38 PM CDT 03/09/2024 8:40 PM CDT Unknown Provider LAB POCT ORDERABLES- MANUAL POC [facility] [address] [place] [address], [facility] PCLX [facility] POC [address] [place] [address] * Glucose, POCT (03/09/2024 5:02 PM CDT) Glucose, POCT, B 98 70 - 140 mg/dL 03/09/2024 5:03 PM CDT PCLX Site Capillary 03/09/2024 5:03 PM CDT PCLX Last Intake NPO 03/09/2024 5:03 PM CDT PCLX Blood 03/09/2024 5:02 PM CDT 03/09/2024 5:03 PM CDT Unknown Provider LAB POCT ORDERABLES- MANUAL POC [facility] [address] [place] [address], [facility] PCLX [facility] POC [address] [place] [address] * DX Abdomen Portable Anterior Posterior 1 [...] 0 PM CDT 03/09/2024 12:53 PM CDT Rashad Sal APRN, C.N.P., M.S.N. LA B BLOOD NON ADD-ON [facility] [address] [place] [address], [facility] [address] [place] [address] * (ABNORMAL) Blood Gas without Coox, Venous [...] CDT 03/09/2024 12:53 PM CDT Rashad Sal APRN C.N.P., M.S.N. LA B BLOOD NON ADD-ON [facility] [address] [place], [place] [id number] [place] [address] STMA [facility] [address] [place] [address] * Glucose, POCT (03/09/2024 11:50 AM CDT) Glucose, POCT, B 102 70 - 140 mg/dL 03/09/2024 11:51 AM CDT PCLX Site Capillary 03/09/2024 11:51 AM CDT PCLX Last Intake NPO 03/09/2024 11:51 AM CDT PCLX Blood 03/09/2024 11:5 0 AM CDT 03/09/2024 11:51 AM CDT Unknown Provider LAB POCT ORDERABLES- MANUAL POC [facility] [address] [place], [place] [id number] [place] [address] PCLX [facility] POC [address] [place] [address] * Glucose, POCT (03/09/2024 7:30 AM CDT) Glucose, POCT, B 94 70 - 140 mg/dL 03/09/2024 7:31 AM CDT PCLX Site Capillary 03/09/2024 7:31 AM CDT PCLX Last Intake NPO 03/09/2024 7:31 AM CDT PCLX Blood 03/09/2024 7:30 AM CDT 03/09/2024 7:32 AM CDT Unknown Provider LAB POCT ORDERABLES- MANUAL Performing Organization Address City/[facility] Co de Phone Number POC [facility] [address] [place] [address], [facility] PCLX [facility] [address] [place] [address] * (ABNORMAL) CBC without Differential (03/09/2024 3:22 [...] LAB BLO OD ADD-ON Performing Organization Address City/[facility]/ZIP Co de Phone Number [facility] [address] [place] [address], [facility] DTL [facility] [address] [place] [address] * (ABNORMAL) Basic Metabolic Panel (03/09/2024 3:22 AM CDT) Pathologist [facility] Potassium, S 4.8 3.6 - 5.2 mmol/L [...] Paredes P.A.-C., M.S. LAB BLO OD ADD-ON [facility] [address] [place] [address], [facility] [address] [place] [address] * Magnesium (03/09/2024 3:17 AM CDT) Magnesium, S 2.1 1.7 - 2.3 mg/dL 03/09/2024 4:58 PM CDT DTL Blood (Blood, Venous) 03/09/2024 3:17 AM CDT 03/09/2024 4:31 PM CDT Rashad Sal APRN, C.N.P., M.S.N. LA B BLOOD ADD-ON [facility] [address] [place] [address], [facility] [address] [place] [address] * (ABNORMAL) Cystatin C with Estimated GFR [...] LAB BLOOD ADD-O N Performing Organization Address City/[facility]/ZIP Co de Phone Number [facility] [address] [place] [address], [facility] [address] [place] [address] * Glucose, POCT (03/08/2024 8:37 PM CDT) Glucose, POCT, B 102 70 - 140 mg/dL 03/08/2024 8:38 PM CDT PCLX Site Capillary 03/08/2024 8:38 PM CDT PCLX Last Intake NPO 03/08/2024 8:38 PM CDT PCLX Blood 03/08/2024 8:37 PM CDT 03/08/2024 8:38 PM CDT Unknown Provider LAB POCT ORDERABLES- MANUAL Performing Organization Address City/[facility]/ZIP Co de Phone Number POC [facility] [address] [place] [address], [facility] PCLX [facility] POC [address] [place] [address] * Glucose, POCT (03/08/2024 6:20 PM CDT) Glucose, POCT, B 95 70 - 140 mg/dL 03/08/2024 6:22 PM CDT PCLX Blood 03/08/2024 6:20 PM CDT 03/08/2024 6:22 PM CDT Unknown Provider LAB POCT ORDERABLES- MANUAL Performing Organization Address City/[facility] Co de Phone Number [facility] [address] [place] [address], [facility] PCLX [facility] POC [address] [place] [address] * Glucose, POCT (03/08/2024 5:10 PM CDT) Glucose, POCT, B 86 70 - 140 mg/dL 03/08/2024 5:13 PM CDT PCLX Blood 03/08/2024 5:10 PM CDT 03/08/2024 5:14 PM CDT Unknown Provider LAB POCT ORDERABLES- MANUAL Performing Organization Address City/[facility]/ZIP Co de Phone Number [facility] [address] [place] [address], [facility] PCLX [facility] POC [address] [place] [address] * Patient Status (03/08/2024 12:19 PM CDT) FIO2 0.30 0.21=AIR 03/08/2024 12: 22 PM CDT [facility] Device Vent 03/08/2024 12: 22 PM CDT [facility] Blood 03/08/2024 12:1 9 PM CDT 03/08/2024 12:22 PM CDT Rashad Sal APRN, C.N.P., M.S.N. NEAL Dunne BLOOD NON ADD-ON [facility] [address] [place], [place] [id number] [place] [address] [address] [place] [address] * (ABNORMAL) Blood Gas without Coox, Arterial [...] PM CDT Rashad Sal APRN, C.N.P., M.S.N. NEAL Dunne BLOOD NON ADD-ON [facility] [address] [place] [address], [facility] [address] [place] [address] * Glucose, POCT (03/08/2024 12:09 PM CDT) Glucose, POCT, B 88 70 - 140 mg/dL 03/08/2024 12:10 PM CDT PCLX Blood 03/08/2024 12:0 9 PM CDT 03/08/2024 12:10 PM CDT Unknown Provider LAB POCT ORDERABLES- MANUAL POC [facility] [address] [place] [address], [facility] PCLX [facility] POC [address] [place] [address] * Glucose, POCT (03/08/2024 7:48 AM CDT) Glucose, POCT, B 90 70 - 140 mg/dL 03/08/2024 7:49 AM CDT PCLX Blood 03/08/2024 7:48 AM CDT 03/08/2024 7:50 AM CDT Unknown Provider LAB POCT ORDERABLES- MANUAL Performing Organization Address City/[facility] Co de Phone Number POC [facility] [address] [place] [address], [facility] PCLX [facility] POC [address] [place] [address] * (ABNORMAL) CBC without Differential (03/08/2024 5:22 [...] 5:22 AM CDT 03/08/2024 6:11 AM CDT vIory Paredes P.A.-C., M.S. LAB BLO OD ADD-ON [facility] [address] [place] [address], [facility] DTL [facility] [address] [place] [address] * (ABNORMAL) Basic Metabolic Panel (03/08/2024 5:22 [...] LAB BLO OD ADD-ON Performing Organization Address City/[facility]/ZIP Co de Phone Number [facility] [address] [place], [place] [id number] [place] [address] DTL [facility] [address] [place] [address] * Type and Screen (with Reflex Antibody ID) (03/08/2024 5:19 AM CDT) Pathologist [facility] ABORh O Pos Not applicable 03/08/2024 7:04 AM CDT STRM Antibody Screen Negative Negative 03/08/2024 7:18 AM CDT STRM Type & Screen Expiration 03/11/2024 23:59 03/08/2024 7:04 AM CDT STRM Testing Location Kim DEFAULT 03/08/2024 6:44 AM CDT STRM Blood (Blood, Venous) 03/08/2024 5:19 AM CDT 03/08/2024 6:44 AM CDT Neel Jennings APRNNAlexandra., M.S.NMay DELGADO BLOOD BANK TEST ORDERABLES Performing Organization Address [facility] Co de Phone Number [facility] [address] [place], [place] [phone] [place] [address] [address] [place] [address] * Glucose, POCT (03/08/2024 2:01 AM CDT) Pathologist [facility] Glucose, POCT, B 88 70 - 140 mg/dL 03/08/2024 2:03 AM CDT PCLX Site ARTLINE 03/08/2024 2:03 AM CDT PCLX Last Intake NPO 03/08/2024 2:03 AM CDT PCLX Blood 03/08/2024 2:01 AM CDT 03/08/2024 2:04 AM CDT Unknown Provider LAB POCT ORDERABLES- MANUAL Performing Organization Address City/[facility]/ZIP Co de Phone Number POC [facility] [address] [place] [address], [place] PCLX [facility] POC [address] [place] [address] * Glucose, POCT (03/07/2024 11:49 PM CDT) Glucose, POCT, B 88 70 - 140 mg/dL 03/07/2024 11:50 PM CDT PCLX Site ARTLINE 03/07/2024 11:50 PM CDT PCLX Last Intake NPO 03/07/2024 11:50 PM CDT PCLX Blood 03/07/2024 11:4 9 PM CDT 03/07/2024 11:51 PM CDT Unknown Provider LAB POCT ORDERABLES- MANUAL POC [facility] [address] [place] [address], [place] PCLX [facility] POC [address] [place] [address] * Glucose, POCT (03/07/2024 8:33 PM CDT) Glucose, POCT, B 80 70 - 140 mg/dL 03/07/2024 8:34 PM CDT PCLX Site ARTLINE 03/07/2024 8:34 PM CDT PCLX Last Intake NPO 03/07/2024 8:34 PM CDT PCLX Blood 03/07/2024 8:33 PM CDT 03/07/2024 8:35 PM CDT Unknown Provider LAB POCT ORDERABLES- MANUAL POC [facility] [address] [place] [address], [place] PCLX [facility] POC [address] [place] [address] * Glucose, POCT (03/07/2024 5:36 PM CDT) Glucose, POCT, B 94 70 - 140 mg/dL 03/07/2024 5:43 PM CDT PCLX Site ARTLINE 03/07/2024 5:43 PM CDT PCLX Last Intake 2-3 hours 03/07/2024 5:43 PM CDT PCLX Blood 03/07/2024 5:36 PM CDT 03/07/2024 5:44 PM CDT Unknown Provider LAB POCT ORDERABLES- MANUAL POC [facility] [address] [place] [address], [place] PCLX [facility] POC [address] [place] [address] * CT Abdomen Pelvis with IV Contrast [...] 03/07/2024 1:45PM. Rashad Sal APRN, C.N.P., M.S.N. IM G DIAGNOSTIC IMAGING PROCEDURES * Glucose, POCT (03/07/2024 11:49 AM CDT) Glucose, POCT, B 106 70 - 140 mg/dL 03/07/2024 11:51 AM CDT PCLX Site ARTLINE 03/07/2024 11:51 AM CDT PCLX Last Intake ContTubFdg 03/07/2024 11:51 AM CDT PCLX Blood 03/07/2024 11:4 9 AM CDT 03/07/2024 11:52 AM CDT Unknown Provider LAB POCT ORDERABLES- MANUAL POC [facility] [address] [place] [address], [facility] PCLX [facility] P[facility] [address] [place] [address] * Apixaban, Anti-Xa, P (03/07/2024 11:13 AM CDT) Apixaban, Anti-Xa, P 148 see interpretation ng/mL 03/07/2024 12:24 PM CDT DTL Comment: ----ADDITIONAL INFORMATION---- This test has been modified from the travel clerk's instructions. Its performance characteristics were determined by [facility] in a manner consistent with CLIA [...] Rufus Meng LAB BLOOD NON A DD-ON Performing Organization Address City/[facility] Co de Phone Number [facility] [address] DTL [facility] [address] [place] [address] * Potassium (03/07/2024 11:13 AM CDT) Potassium, P 5.2 3.6 - 5.2 mmol/L 03/07/2024 11:28 AM CDT STMA Blood (Blood, Venous) 03/07/2024 11:13 AM CDT 03/07/2024 11:17 AM CDT Rashad Sal APRN, C.N.P., M.S.N. NEAL B BLOOD ADD-ON Performing Organization Address City/[facility] Co de Phone Number [facility] [address] STMA [facility] [address] [place] [address] * Glucose, POCT (03/07/2024 9:32 AM CDT) Glucose, POCT, B 104 70 - 140 mg/dL 03/07/2024 9:34 AM CDT PCLX Site ARTLINE 03/07/2024 9:34 AM CDT PCLX Last Intake ContTubFdg 03/07/2024 9:34 AM CDT PCLX Blood 03/07/2024 9:32 AM CDT 03/07/2024 9:34 AM CDT Unknown Provider LAB POCT ORDERABLES- MANUAL Performing Organization Address City/[facility]/ZIP Co de Phone Number POC [facility] [address] [place] [address], [facility] PCLX [facility] [address] [place] [address] * (ABNORMAL) Cystatin C with Estimated GFR (03/07/2024 3:45 AM CDT) eGFR by Cystatin C 78 >60 mL/min/BSA [...] LAB BLOOD ADD-O N Performing Organization Address City/[facility]/ZIP Co de Phone Number [facility] [address] [place] [address], [facility] DTL [facility] [address] [place] [address] * (ABNORMAL) Calcium, Ionized (03/07/2024 3:45 AM CDT) Calcium, Ionized, S 4.69 4.57 - 5.43 mg/dL 03/07/2024 4:31 AM CDT DTL Comment: ----ADDITIONAL INFORMATION---- This test has been modified from the travel clerk's instructions. Its performance characteristics were determined by [facility] in a manner consistent with CLIA requirements. This test has not been cleared or approved by the U.S. Food and Drug Administration. pH for Ionized Calcium 7.51(H) 7.35 - 7.48 03/07/2024 4:31 AM CDT DTL Blood (Blood, Venous) 03/07/2024 3:45 AM CDT 03/07/2024 4:20 AM CDT Amrita Liz APRN C.N.P., D.N.P. LAB BLOOD NON ADD-ON Performing Organization Address [facility] de Phone Number [facility] [address] [place] [address], [facility] [place] [address] * (ABNORMAL) CBC without Differential (03/07/2024 3:45 [...] LAB BLO OD ADD-ON Performing Organization Address City/[facility] Co de Phone Number [facility] [address] [place] [address], [facility] DTL [facility] [address] [place] [address] * (ABNORMAL) Basic Metabolic Panel (03/07/2024 3:45 [...] Paredes P.A.-C., M.S. LAB BLO OD ADD-ON [facility] [address] [place] [address], [facility] DTL [facility] [address] [place] [address] * Glucose, POCT (03/06/2024 8:04 PM CDT) Glucose, POCT, B 89 70 - 140 mg/dL 03/06/2024 8:07 PM CDT PCLX Site ARTLINE 03/06/2024 8:07 PM CDT PCLX Last Intake ContTubFdg 03/06/2024 8:07 PM CDT PCLX Blood 03/06/2024 8:04 PM CDT 03/06/2024 8:08 PM CDT Unknown Provider LAB POCT ORDERABLES- MANUAL Performing Organization Address City/[facility]/ZIP Co de Phone Number POC [facility] [address] [place] [address], [facility] PCLX [facility] POC [address] [place] [address] * Glucose, POCT (03/06/2024 5:46 PM CDT) Glucose, POCT, B 103 70 - 140 mg/dL 03/06/2024 5:48 PM CDT PCLX Site ARTLINE 03/06/2024 5:48 PM CDT PCLX Last Intake ContTubFdg 03/06/2024 5:48 PM CDT PCLX Blood 03/06/2024 5:46 PM CDT 03/06/2024 5:48 PM CDT Unknown Provider LAB POCT ORDERABLES- MANUAL Performing Organization Address City/[facility]/ZIP Co de Phone Number POC [facility] [address] [place] [address], [place] PCLX [facility] POC [address] [place] [address] * Glucose, POCT (03/06/2024 12:10 PM CDT) Glucose, POCT, B 92 70 - 140 mg/dL 03/06/2024 12:12 PM CDT PCLX Site ARTLINE 03/06/2024 12:12 PM CDT PCLX Last Intake ContTubFdg 03/06/2024 12:12 PM CDT PCLX Blood 03/06/2024 12:1 0 PM CDT 03/06/2024 12:13 PM CDT Unknown Provider LAB POCT ORDERABLES- MANUAL POC [facility] [address] [place] [address], [place] PCLX [facility] POC [address] [place] [address] * MR Brain without IV Contrast (03/06/2024 [...] 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 Shay Marsh APRN, C.N.P., M.S.N. IMG MRI PROCEDURES * Rufinamide, S (03/06/2024 8:45 AM CDT) [facility] Rufinamide, S 14.5 5.0 - 30.0 mcg/mL 03/09/2024 2:03 PM CDT [facility] Comment: ----ADDITIONAL INFORMATION---- This test was developed and its performance characteristics determined by [facility] in a manner consistent with CLIA requirements. This test has not been cleared or approved by the U.S. Food and Drug Administration. Blood (Blood, Venous) 03/06/2024 8:45 AM CDT 03/06/2024 1:43 PM CDT Basil Miranda APRN, C.N.P. LAB BLOOD NON ADD-ON [facility] [address] [place] [address] [facility] [address] [place] [place] [address] * (ABNORMAL) Levetiracetam Level (03/06/2024 8:45 AM CDT) Levetiracetam, S 86.7(H) 10.0 - 40.0 mcg/mL 03/06/2024 3:05 PM CDT [facility] Comment: ----ADDITIONAL INFORMATION---- This test was developed and its performance characteristics determined by [facility] in a manner consistent with CLIA requirements. This test has not been cleared or approved by the U.S. Food and Drug Administration. Blood (Blood, Venous) 03/06/2024 8:45 AM CDT 03/06/2024 1:11 PM CDT Basil Miranda APRN, C.N.P. LAB BLOOD NON ADD-ON Performing Organization Address City/[facility]/ZIP Co de Phone Number [facility] [address] [place] [address] [facility] [address] [place] [address] [place] [address] * Lamotrigine Level (03/06/2024 8:45 AM CDT) Lamotrigine, S 12.9 3.0 - 15.0 mcg/mL 03/06/2024 2:44 PM CDT [facility] Comment: ----ADDITIONAL INFORMATION---- This test was developed and its performance characteristics determined by [facility] in a manner consistent with CLIA requirements. This test has not been cleared or approved by the U.S. Food and Drug Administration. Blood (Blood, Venous) 03/06/2024 8:45 AM CDT 03/06/2024 1:11 PM CDT Basil Miranda APRN, C.N.P. LAB BLOOD NON ADD-ON [facility] [address] [place] [address] [facility] [address] [place] [id number] * (ABNORMAL) Clobazam and Metabolite (03/06/2024 8:45 AM CDT) Clobazam 221.0 30 - 300 ng/mL 03/07/2024 1:39 AM CDT [facility] N-desmethylclobazam 5420.0(H) 300 - 3000 ng/mL 03/07/2024 1:39 AM CDT [facility] Comment: ----ADDITIONAL INFORMATION---- This test was developed and its performance characteristics determined by [facility] in a manner consistent with CLIA requirements. This test has not been cleared or approved by the U.S. Food and Drug Administration. Blood (Blood, Venous) 03/06/2024 8:45 AM CDT 03/06/2024 1:40 PM CDT Basil Miranda APRN, C.N.P. LAB BLOOD ADD-ON [facility] [address] [place] [address] [facility] [address] [place] [address] * Glucose, POCT (03/06/2024 8:13 AM CDT) Glucose, POCT, B 107 70 - 140 mg/dL 03/06/2024 8:15 AM CDT PCLX Site ARTLINE 03/06/2024 8:15 AM CDT PCLX Last Intake ContTubFdg 03/06/2024 8:15 AM CDT PCLX Blood 03/06/2024 8:13 AM CDT 03/06/2024 8:15 AM CDT Unknown Provider LAB POCT ORDERABLES- MANUAL POC [facility] [address] [place] [address], [place] PCLX [facility] POC [address] [place] [address] * EEG (03/06/2024 7:26 AM CDT) Narrative MMVANITA - 03/06/2024 11:04 AM CDT Images from [...] CDT 03/06/2024 6:33 AM CDT Ivory Paredes P.A.-C., M.S. LAB BLO OD ADD-ON [address] [address], [facility] [place] [address] * (ABNORMAL) Basic Metabolic Panel (03/06/2024 6:01 [...] CDT 03/06/2024 6:41 AM CDT Ivory Paredes P.A.-C., M.S. LAB BLO OD ADD-ON [facility] [address] [place] [address], [facility]TF[facility] [place] [address] [place] [address] * (ABNORMAL) Felbamate (Felbatol) Level (03/06/2024 6:01 AM CDT) Felbamate (Felbatol), S 181.6(H) 30.0 - 80.0 mcg/mL 03/06/2024 3:36 PM CDT [facility] Comment: ----ADDITIONAL INFORMATION---- This test was developed and its performance characteristics determined by [facility] in a manner consistent with CLIA requirements. This test has not been cleared or approved by the U.S. Food and Drug Administration. Blood (Blood, Venous) 03/06/2024 6:01 AM CDT 03/06/2024 9:28 AM CDT Basil Miranda APRN, C.N.P. LAB BLOOD NON ADD-ON [facility] [address] [place] [address] [facility] [address] [place] [address] * (ABNORMAL) Albumin (03/06/2024 5:56 AM CDT) Albumin, S 2.6(L) 3.5 - 5.0 g/dL 03/06/2024 5:24 PM CDT DTL Blood (Blood, Venous) 03/06/2024 5:56 AM CDT 03/06/2024 5:00 PM CDT Girish Pacheco APRN.N.P., D.N.P. LAB BLOOD ADD-ON [facility] [address] [place] [address], [facility] DTL [facility] [address] [place] [address] * Glucose, POCT (03/05/2024 7:35 PM CDT) Glucose, POCT, B 97 70 - 140 mg/dL 03/05/2024 7:37 PM CDT PCLX Site ARTLINE 03/05/2024 7:37 PM CDT PCLX Last Intake ContTubFdg 03/05/2024 7:37 PM CDT PCLX Blood 03/05/2024 7:35 PM CDT 03/05/2024 7:37 PM CDT Unknown Provider LAB POCT ORDERABLES- MANUAL Performing Organization Address City/[facility] Co de Phone Number POC [facility] [address] [place] [address], [facility] PCLX [facility] POC [address] [place] [address] * Glucose, POCT (03/05/2024 5:32 PM CDT) Glucose, POCT, B 94 70 - 140 mg/dL 03/05/2024 5:33 PM CDT PCLX Site ARTLINE 03/05/2024 5:33 PM CDT PCLX Last Intake ContTubFdg 03/05/2024 5:33 PM CDT PCLX Blood 03/05/2024 5:32 PM CDT 03/05/2024 5:34 PM CDT Unknown Provider LAB POCT ORDERABLES- MANUAL Performing Organization Address City/[facility]/ZIP Co de Phone Number [facility] [address] [place] [address], [facility] PCLX [facility] POC [address] [place] [address] * Glucose, POCT (03/05/2024 7:13 AM CDT) Glucose, POCT, B 113 70 - 140 mg/dL 03/05/2024 7:14 AM CDT PCLX Site ARTLINE 03/05/2024 7:14 AM CDT PCLX Last Intake ContTubFdg 03/05/2024 7:14 AM CDT PCLX Blood 03/05/2024 7:13 AM CDT 03/05/2024 7:14 AM CDT Unknown Provider LAB POCT ORDERABLES- MANUAL Performing Organization Address [facility] Co de Phone Number [facility] [address] [place] [address], [facility] PCLX [facility] [address] [place] [address] * (ABNORMAL) Phosphorus Inorganic (03/05/2024 5:19 AM CDT) Phosphorus (Inorganic), S 4.7(H) 2.5 - 4.5 mg/dL 03/05/2024 6:46 AM CDT DTL Blood (Blood, Venous) 03/05/2024 5:19 AM CDT 03/05/2024 6:18 AM CDT Basil Miranda APRN, C.N.P. LAB BLOOD ADD-ON Performing Organization Address [facility] [employer]/ZIP Co de Phone Number [facility] [address] [place] [address], [facility] [place] [facility] [place] [address] [place] [address] * Magnesium (03/05/2024 5:19 AM CDT) Magnesium, S 1.7 1.7 - 2.3 mg/dL 03/05/2024 6:46 AM CDT DTL Blood (Blood, Venous) 03/05/2024 5:19 AM CDT 03/05/2024 6:18 AM CDT Basil Miranda APRN CMayNMayP. LAB BLOOD ADD-ON Performing Organization Address [facility]/ZIP Co de Phone Number [facility] [address] [place] [address], [facility] DTL [facility] [address] [place] [address] * (ABNORMAL) CBC without Differential (03/05/2024 5:19 AM CDT) Pathologist [facility] Hemoglobin 8.3(L) 13.2 - 16.6 g/dL 03/05/2024 [...] LAB BLO OD ADD-ON Performing Organization Address City/[facility]/ZIP Co de Phone Number [facility] [address] [place] [address], [facility] DTL [facility] [address] [place] [address] * (ABNORMAL) Basic Metabolic Panel (03/05/2024 5:19 AM CDT) Pathologist [facility] Potassium, S 4.8 3.6 - 5.2 mmol/L [...] Paredes P.A.-C., M.S. LAB BLO OD ADD-ON [facility] [address] [place] [address], [facility] [place] [facility] [place] [address] [place] [address] * Glucose, POCT (03/04/2024 7:48 PM CDT) Pathologist [facility] Glucose, POCT, B 91 70 - 140 mg/dL 03/04/2024 7:49 PM CDT PCLX Site ARTLINE 03/04/2024 7:49 PM CDT PCLX Last Intake ContTubFdg 03/04/2024 7:49 PM CDT PCLX Blood 03/04/2024 7:48 PM CDT 03/04/2024 7:50 PM CDT Unknown Provider LAB POCT ORDERABLES- MANUAL Performing Organization Address City/[facility] Co de Phone Number POC [facility] [address] [place] [address], [facility] PCLX [facility] POC [address] [place] [address] * Glucose, POCT (03/04/2024 5:25 PM CDT) Glucose, POCT, B 99 70 - 140 mg/dL 03/04/2024 5:26 PM CDT PCLX Site ARTLINE 03/04/2024 5:26 PM CDT PCLX Last Intake ContTubFdg 03/04/2024 5:26 PM CDT PCLX Blood 03/04/2024 5:25 PM CDT 03/04/2024 5:27 PM CDT Unknown Provider LAB POCT ORDERABLES- MANUAL Performing Organization Address [facility] de Phone Number POC [facility] [address] [place] [address], [facility] PCLX [facility] POC [address] [place] [address] * Glucose, POCT (03/04/2024 11:46 AM CDT) Glucose, POCT, B 97 70 - 140 mg/dL 03/04/2024 11:47 AM CDT PCLX Site ARTLINE 03/04/2024 11:47 AM CDT PCLX Last Intake ContTubFdg 03/04/2024 11:47 AM CDT PCLX Blood 03/04/2024 11:4 6 AM CDT 03/04/2024 11:48 AM CDT Unknown Provider LAB POCT ORDERABLES- MANUAL Performing Organization Address City/[facility]/ZIP Co de Phone Number [facility] [address] [place] [address], [facility] PCLX [facility] POC [address] [place] [address] * Glucose, POCT (03/04/2024 7:22 AM CDT) [facility] Glucose, POCT, B 106 70 - 140 mg/dL 03/04/2024 7:24 AM CDT PCLX Site ARTLINE 03/04/2024 7:24 AM CDT PCLX Last Intake ContTubFdg 03/04/2024 7:24 AM CDT PCLX Blood 03/04/2024 7:22 AM CDT 03/04/2024 7:24 AM CDT Unknown Provider LAB POCT ORDERABLES- MANUAL Performing Organization Address [facility] Co de Phone Number POC [facility] [address] [place] [address], [facility] PCLX [facility] POC [address] [place] [address] * (ABNORMAL) CBC without Differential (03/04/2024 3:27 AM CDT) [facility] Hemoglobin 8.9(L) 13.2 - 16.6 g/dL [...] Paredes P.A.-C., M.S. LAB BLO OD ADD-ON [facility] [address] [place] [address], [facility] DTL [facility] [address] [place] [address] * (ABNORMAL) Basic Metabolic Panel (03/04/2024 3:27 AM CDT) Potassium, S 4.5 3.6 - [...] LAB BLO OD ADD-ON Performing Organization Address City/[facility]/ZIP Co de Phone Number [facility] [address] [place] [address], [facility] 200 [place] [address] * Phosphorus Inorganic (03/04/2024 3:27 AM CDT) Pathologist [facility] Phosphorus (Inorganic), S 4.2 2.5 - 4.5 mg/dL 03/04/2024 4:21 AM CDT DTL Blood (Blood, Venous) 03/04/2024 3:27 AM CDT 03/04/2024 3:58 AM CDT Basil Miranda APRN, C.N.P. LAB BLOOD ADD-ON Performing Organization Address City/[facility]/ZIP Co de Phone Number [facility] [address] [place] [address], [facility] [address] [place] [address] * Glucose, POCT (03/03/2024 8:48 PM CDT) [facility] Glucose, POCT, B 91 70 - 140 mg/dL 03/03/2024 8:49 PM CDT PCLX Site ARTLINE 03/03/2024 8:49 PM CDT PCLX Last Intake ContTubFdg 03/03/2024 8:49 PM CDT PCLX Blood 03/03/2024 8:48 PM CDT 03/03/2024 8:49 PM CDT Unknown Provider LAB POCT ORDERABLES- MANUAL Performing Organization Address City/[facility]/ZIP Co de Phone Number POC [facility] [address] [place] [address], [facility] PCLX [facility] POC [address] [place] [address] * Glucose, POCT (03/03/2024 5:23 PM CDT) Pathologist [facility] Glucose, POCT, B 93 70 - 140 mg/dL 03/03/2024 5:24 PM CDT PCLX Site ARTLINE 03/03/2024 5:24 PM CDT PCLX Last Intake ContTubFdg 03/03/2024 5:24 PM CDT PCLX Blood 03/03/2024 5:23 PM CDT 03/03/2024 5:25 PM CDT Unknown Provider LAB POCT ORDERABLES- MANUAL Performing Organization Address City/[facility]/ZIP Co de Phone Number [facility] [address] [place] [address], [facility] PCLX [facility] POC [address] [place] [address] * Glucose, POCT (03/03/2024 12:23 PM CDT) Glucose, POCT, B 99 70 - 140 mg/dL 03/03/2024 12:24 PM CDT PCLX Site ARTLINE 03/03/2024 12:24 PM CDT PCLX Blood 03/03/2024 12:2 3 PM CDT 03/03/2024 12:25 PM CDT Unknown Provider LAB POCT ORDERABLES- MANUAL Performing Organization Address [facility] Co de Phone Number [facility] [address] [place] [address], [facility] PCLX [facility] POC [address] [place] [address] * Glucose, POCT (03/03/2024 7:38 AM CDT) Glucose, POCT, B 84 70 - 140 mg/dL 03/03/2024 7:39 AM CDT PCLX Site ARTLINE 03/03/2024 7:39 AM CDT PCLX Last Intake NPO 03/03/2024 7:39 AM CDT PCLX Blood 03/03/2024 7:38 AM CDT 03/03/2024 7:40 AM CDT Unknown Provider LAB POCT ORDERABLES- MANUAL [facility] [address] [place] [address], [facility] PCLX [facility] POC [address] [place] [address] * (ABNORMAL) CBC without Differential (03/03/2024 4:03 AM CDT) [facility] Hemoglobin 9.3(L) 13.2 - 16.6 g/dL 03/03/2024 [...] Paredes P.A.-C., M.S. LAB BLO OD ADD-ON [facility] [address] [place] [address], [facility] [place] [facility] [place] [address] [place] [address] * (ABNORMAL) Basic Metabolic Panel (03/03/2024 4:03 AM CDT) [facility] Potassium, S 4.3 3.6 - 5.2 mmol/L [...] LAB BLO OD ADD-ON Performing Organization Address City/[facility]/ZIP Co de Phone Number [facility] [address] [place] [address], [facility] DTL [facility] [address] [place] [address] * Glucose, POCT (03/02/2024 9:59 PM CDT) [facility] Glucose, POCT, B 98 70 - 140 mg/dL 03/02/2024 10:00 PM CDT PCLX Blood 03/02/2024 9:59 PM CDT 03/02/2024 10:01 PM CDT Unknown Provider LAB POCT ORDERABLES- MANUAL Performing Organization Address City/[facility]/ZIP Co de Phone Number POC [facility] [address] [place] [address], [facility] PCLX [facility] [address] [place] [address] * Patient Status (03/02/2024 5:15 PM CDT) FIO2 0.30 0.21=AIR 03/02/2024 5:1 8 PM CDT STMA Device Vent 03/02/2024 5:1 8 PM CDT STMA Blood 03/02/2024 5:15 PM CDT 03/02/2024 5:18 PM CDT Gardenia Gordillo APRN, C.N.P., M.S.N. LAB BLOOD NON ADD-ON Performing Organization Address City/[facility]/ZIP Co de Phone Number [facility] [address] [place] [address], [facility] [address] [place] [address] * Blood Gas without Coox, Arterial (03/02/2024 [...] CDT 03/02/2024 5:18 PM CDT Neel Donald APRNNMayP., M.S.N. LAB BLOOD NON ADD-ON Performing Organization Address City/[facility]/ZIP Co de Phone Number [facility] [address] [place] [address], [facility] [address] [place] [address] * Glucose, POCT (03/02/2024 5:13 PM CDT) Glucose, POCT, B 86 70 - 140 mg/dL 03/02/2024 5:41 PM CDT PCLX Site ARTLINE 03/02/2024 5:41 PM CDT PCLX Blood 03/02/2024 5:13 PM CDT 03/02/2024 5:42 PM CDT Unknown Provider LAB POCT ORDERABLES- MANUAL [facility] [address] [place] [address], [facility] PCLX [facility] [address] [place] [address] * DX Chest Portable Post PICC Placement [...] in both lower lungs. ETT. Girish Donald APRN.N.Thierry., M.S.N. IMG DIAGNOSTIC IMAGING PROCEDURES * Ammonia (03/02/2024 12:50 PM CDT) Pathologist [facility] Ammonia, P 27 <=30 mcmol/L 03/02/2024 1:36 PM CDT DTL Blood (Blood, Arterial) 03/02/2024 12:50 PM CDT 03/02/2024 1:06 PM CDT Girish Donald APRN.N.P., M.S.N. LAB BLOOD NON ADD-ON [facility] [address] [place] [address], [facility] [address] [place] [address] * Glucose, POCT (03/02/2024 12:29 PM CDT) Glucose, POCT, B 111 70 - 140 mg/dL 03/02/2024 12:31 PM CDT PCLX Site ARTLINE 03/02/2024 12:31 PM CDT PCLX Last Intake ContTubFdg 03/02/2024 12:31 PM CDT PCLX Blood 03/02/2024 12:2 9 PM CDT 03/02/2024 12:31 PM CDT Unknown Provider LAB POCT ORDERABLES- MANUAL [facility]OC [facility] [address] [place] [address], [place] PCLX [facility] POC [address] [place] [address] * Place peripherally inserted central catheter (PICC) [...] Huang P.A.-C., M.S. PROCE DURE/MINOR SURGICAL ORDERABLES Performing Organization Address City/[facility] Co de Phone Number MMODAL NA * Rufinamide, S (03/02/2024 11:18 AM CDT) Pathologist [facility] Rufinamide, S 11.6 5.0 - 30.0 mcg/mL 03/04/2024 2:22 PM CDT [facility] Comment: ----ADDITIONAL INFORMATION---- This test was developed and its performance characteristics determined by [facility] in a manner consistent with CLIA requirements. This test has not been cleared or approved by the U.S. Food and Drug Administration. Blood (Blood, Arterial) 03/02/2024 11:18 AM CDT 03/02/2024 6:03 PM CDT Gardenia Gordillo APRN, C.N.P., M.S.N. LAB BLOOD NON ADD-ON Performing Organization Address [facility] Co de Phone Number [facility] [address] [place] [address] [facility] [address] [place] [address] [place] [address] * (ABNORMAL) Levetiracetam Level (03/02/2024 11:18 AM CDT) Levetiracetam, S 134.2(H) 10.0 - 40.0 mcg/mL 03/03/2024 11:29 AM CDT [facility] Comment: ----ADDITIONAL INFORMATION---- This test was developed and its performance characteristics determined by [facility] in a manner consistent with CLIA requirements. This test has not been cleared or approved by the U.S. Food and Drug Administration. Blood (Blood, Arterial) 03/02/2024 11:18 AM CDT 03/02/2024 2:48 PM CDT Gardenia Gordillo APRN, C.N.P., M.S.N. LAB BLOOD NON ADD-ON Performing Organization Address City/[facility]/ZIP Co de Phone Number [facility] [address] [place] [address] [facility] [address] [place] [address] [place] [id number] * Lamotrigine Level (03/02/2024 11:18 AM CDT) Lamotrigine, S 19.4 3.0 - 15.0 mcg/mL 03/03/2024 12:03 PM CDT [facility] Comment: ----ADDITIONAL INFORMATION---- This test was developed and its performance characteristics determined by [facility] in a manner consistent with CLIA requirements. This test has not been cleared or approved by the U.S. Food and Drug Administration. Blood (Blood, Arterial) 03/02/2024 11:18 AM CDT 03/02/2024 2:48 PM CDT Gardenia Gordillo APRN, C.N.P., M.S.N. LAB BLOOD NON ADD-ON Performing Organization Address City/[facility] Co de Phone Number [facility] [address] [place] [address] [facility] [address] [place] [address] [place] [address] * (ABNORMAL) Felbamate (Felbatol) Level (03/02/2024 11:18 AM CDT) Felbamate (Felbatol), S 246.2(H) 30.0 - 80.0 mcg/mL 03/03/2024 3:14 PM CDT [facility] Comment: ----ADDITIONAL INFORMATION---- This test was developed and its performance characteristics determined by [facility] in a manner consistent with CLIA requirements. This test has not been cleared or approved by the U.S. Food and Drug Administration. Blood (Blood, Arterial) 03/02/2024 11:18 AM CDT 03/02/2024 6:03 PM CDT Gardenia Gordillo APRN, C.N.P., M.S.N. LAB BLOOD NON ADD-ON Performing Organization Address City/[facility]/ZIP Co de Phone Number [facility] [address] [place] [address] [facility] [address] [place] [address] [place] [address] * (ABNORMAL) Clobazam and Metabolite (03/02/2024 11:18 AM CDT) [facility] Clobazam 269.0 30 - 300 ng/mL 03/04/2024 7:58 AM CDT [facility] N-desmethylclobazam 5810.0(H) 300 - 3000 ng/mL 03/04/2024 7:58 AM CDT [facility] Comment: ----ADDITIONAL INFORMATION---- This test was developed and its performance characteristics determined by [facility] in a manner consistent with CLIA requirements. This test has not been cleared or approved by the U.S. Food and Drug Administration. Blood (Blood, Arterial) 03/02/2024 11:18 AM CDT 03/03/2024 3:02 PM CDT Gardenia Gordillo APRN, C.N.P., M.S.N. LAB BLOOD ADD-ON Performing Organization Address City/[facility]/ZIP Co de Phone Number [facility] [address] [place] [address] [facility] [address] [place] [address] [place] [address] * (ABNORMAL) CBC without Differential (03/02/2024 10:35 [...] - 9.6 x10(9)/L 03/02/2024 11:13 AM CDT [facility] Blood (Blood, Venous) 03/02/2024 10:35 AM CDT 03/02/2024 10:45 AM CDT Ivory Paredes P.A.-C., M.S. LAB BLO OD ADD-ON [facility] [address] [place] [address], [facility] [address] [place] [address] [facility] [address] [place] [address] * CT Head without IV Contrast (03/02/2024 9:50 AM CDT) Anatomical Region Laterality Modality Head, Neuroradiology RST [facility] , Neuroradiology ARZ [facility], Neuroradiology FLA [facility] N/A Computed Tomography, Compute d [...] Glucose, POCT (03/02/2024 7:49 AM CDT) Pathologist [facility] Glucose, POCT, B 93 70 - 140 mg/dL 03/02/2024 7:54 AM CDT PCLX Site Capillary 03/02/2024 7:54 AM CDT PCLX Last Intake ContTubFdg 03/02/2024 7:54 AM CDT PCLX Blood 03/02/2024 7:49 AM CDT 03/02/2024 7:54 AM CDT Unknown Provider LAB POCT ORDERABLES- MANUAL [facility] [address] [place] [address], [facility] PCLX [facility] POC [address] [place] [address] * Patient Status (03/02/2024 3:46 AM CDT) FIO2 0.35 0.21=AIR 03/02/2024 3:5 0 AM CDT STMA Device Vent 03/02/2024 3:5 0 AM CDT STMA Blood 03/02/2024 3:46 AM CDT 03/02/2024 3:50 AM CDT Ivory Paredes P.A.-C. M.S. LAB BLO OD NON ADD-ON Performing Organization Address City/[facility] Co de Phone Number [facility] [address] [place] [address] * (ABNORMAL) Blood Gas without Coox, Arterial [...] BLO OD NON ADD-ON Performing Organization Address City/[facility]/ZIP Co de Phone Number [facility] [address] [facility] [address] [place] [address] * (ABNORMAL) Comprehensive Metabolic Panel (03/02/2024 3:46 [...] Gordillo APRN, C.N.P., M.S.N. LAB BLOOD ADD-ON [facility] [address] [place] [address], [facility] DTL [facility] [address] [place] [address] * (ABNORMAL) CBC without Differential (03/02/2024 3:46 [...] Gordillo APRN, C.N.P., M.S.N. LAB BLOOD ADD-ON [facility] [address] [place] [address], [facility] DTL [facility] [address] [place] [address] * (ABNORMAL) Cystatin C with Estimated GFR [...] AM CDT Wes [place] [address], [place] [address] * Cell Count and Differential, Bronchoalveolar Lavage [...] This test has been modified from the travel clerk's instructions. Its performance characteristics were determined by [facility] in a manner consistent with CLIA requirements. This test has not been cleared or approved by the U.S. Food and Drug Administration. Volume Recovered 25 mL 03/02/20 3:03 AM CDT [facility] Alveolar Macrophage 15 % 03/02 4:08 AM CDT [facility] Comment: ----REFERENCE VALUE---- The reference range and other method performance specifications have not been established for this body fluid. The test result must be integrated into the clinical context for interpretation. Lymphocytes 3 % 03/02/2024 4:08 AM CDT [facility] Comment: ----REFERENCE VALUE---- The reference range and other method performance specifications have not been established for this body fluid. The test result must be integrated into the clinical context for interpretation. Neutrophils 76 % 03/02/2024 4:08 AM CDT [facility] Comment: ----REFERENCE VALUE---- The reference range and other method performance specifications have not been established for this body fluid. The test result must be integrated into the clinical context for interpretation. Other Cells 6 % 03/02/2024 4:08 AM CDT [facility] Comment: ----REFERENCE VALUE---- The reference range and other method performance specifications have not been established for this body fluid. The test result must be integrated into the clinical context for interpretation. Comment See Comment 03/02/2024 10:55 AM CDT [facility] Comment:Others are lining ce lls.Bacteria present. Fluid 03/02/2024 2:38 AM CDT 03/02/2024 2:38 AM CDT Ivory Paredes P.A.-C., M.S. LAB BOD Y FLUIDS AND STOOLS ORDERABLES [facility] [address] [place] [address], [facility] [address] [place] [address] * Bacterial Culture, Aerobic + Susceptibility, Respiratory (03/02/2024 12:44 AM CDT) Bacterial Culture, Aerobic, Resp No growth after 2 days of incubation. 03/04/2024 10:44 AM CDT DTL Lavage (Bronchoalveolar Lavage) 03/02/2024 12:44 AM CDT 03/02/2024 1:36 AM CDT Comment:Specimen Source Site : Lavage Ivory Paredes P.A.-C., M.S. LAB [facility] ROBIOLOGY - GENERAL ORDERABLES Performing Organization Address City/[facility] Co de Phone Number [facility] [address] [place] [address], [place] DTL [facility] [address] [place] [address] * Legionella Antigen, Urine (03/02/2024 12:44 AM CDT) Legionella Ag, U Negative Negative 03/02/20 2:20 PM CDT [facility] Comment: Negative for L. pneumophila serogroup [...] This assay was performed using the FDA-cleared [employer] Legionella Urinary Antigen Test, a rapid immunochromatographic assay. Urine (Urine, Indwelling Catheter) 03/02/2024 12:44 AM CDT 03/02/2024 7:25 AM CDT Carmela Baeza P.A.-C.SMay LAB [facility] ROBIOLOGY - GENERAL ORDERABLES Performing Organization Address City/[facility] Co de Phone Number [facility] [address] [place] [address] [facility] [address] [place] [address] [place] [address] * Streptococcus pneumoniae Antigen, Urine (03/02/2024 12:44 AM CDT) Streptococcus pneumoniae Ag, U Negative Negative 03/02/2024 2:42 PM CDT [facility] Comment: Negative for pneumococcal pneumonia, suggesting [...] M.S. LAB [facility] ROBIOLOGY - GENERAL ORDERABLES [facility] [address] [place] [address] [facility] [address] [place] [address] [place] [address] * DX Chest Portable 1 View (03/01/2024 [...] throughout both lungs. No pneumothorax. Ivory Paredes P.A.-C. MMayS. IMG QUITA GNOSTIC IMAGING PROCEDURES * DX [...] * Patient Status (03/01/2024 11:08 PM CDT) [facility] FIO2 0.40 0.21=AIR 03/01/2024 11: 15 PM CDT STMA Device Vent 03/01/2024 11: 15 PM CDT [facility] Blood 03/01/2024 11:0 8 PM CDT 03/01/2024 11:15 PM CDT Ivory Paredes P.A.-C., M.S. LAB BLO OD NON ADD-ON [facility] [address] [place] [address], [facility] [address] [place] [address] * Bacteria / Christopher Culture, Blood #1 (03/01/2024 11:08 PM CDT) [facility] Bacteria/Isabell da Culture, Blood No growth after 5 days of incubation. 03/07/2024 1:02 AM CDT DTL Blood (Blood, Peripheral Draw) 03/01/2024 11:08 PM CDT 03/01/2024 11:26 PM CDT Comment:Specimen Source Site : Blood Ivory Paredes P.A.-C., M.S. LAB [facility] ROBIOLOGY - GENERAL ORDERABLES [facility] [address] [place] [address], [facility] DTL [facility] [address] [place] [address] * (ABNORMAL) Blood Gas without Coox, Arterial (03/01/2024 11:08 PM CDT) [facility] Signature pO2 73(L) 83 - 108 mm Hg [...] 03/01/2024 11:15 PM CDT Ivory Paredes P.A.-C. MMaySMay LAB BLO OD NON ADD-ON Performing Organization Address City/[facility]/ZIP Co de Phone Number [facility] [address] [place] [address], [facility] STMA [facility] [address] [place] [address] * Cystatin C with Estimated GFR (03/01/2024 [...] LAB BLO OD ADD-ON Performing Organization Address City/[facility]/ZIP Co de Phone Number [facility] [address] [place] [address], [facility] [address] [place] [address] * Bacteria / Christopher Culture, Blood #2 (03/01/2024 11:07 PM CDT) Pathologist [facility] Bacteria/Isabell da Culture, Blood No growth after 5 days of incubation. 03/07/2024 1:02 AM CDT DT Blood (Blood, Peripheral Draw) 03/01/2024 11:07 PM CDT 03/01/2024 11:25 PM CDT Comment:Specimen Source Site : Blood Ivory Paredes P.A.-C., M.S. LAB FARIHA ROBIOLOGY - GENERAL ORDERABLES Performing Organization Address City/[facility]/ZIP Co de Phone Number [facility] [address] [facility] [place] [address] [place] [address] * Invasive Line (03/01/2024 10:55 PM CDT) Narrative Gregorio Comer R.RMayTMay, L.R.T. - 03/01/2024 10:55 PM CDT Gregorio [...] Wes Meng PROCEDURE/MINOR RANDOLPH RGICAL ORDERABLES * VA BRONCHOSCOPY W ALVEOLAR LAVAGE (03/01/2024 10:30 PM [...] PHYLICIA participated or performed the procedure. The consultant internship participated in or was aware of the procedure. Ivory Paredes P.A.-C. M.SMay PROCEDU RE/MINOR SURGICAL ORDERABLES * VA INTUB W ETT, LDA ANE ENDOTRACHEAL AIRWAY [...] ETT location: oral VL device: glide scope [place] scope blade size: 4 Tube size: 7.5 [...] PHYLICIA participated or performed the procedure. The consultant internship participated in or was aware of the [...] BLO OD NON ADD-ON Performing Organization Address City/[facility] Co de Phone Number [facility] [address] [place] [address], [facility] STMA [facility] [address] [place] [address] * (ABNORMAL) Blood Gas without Coox, Venous [...] BLO OD NON ADD-ON Performing Organization Address City/[facility]/ZIP Co de Phone Number [facility] [address] [place] [address], [facility] [address] [place] [address] * DX Chest Portable 1 View (03/01/2024 [...] - 7.45 pH 03/01/2024 9:10 PM CDT [facility] Blood 03/01/2024 8:59 PM CDT 03/01/2024 9:07 PM CDT Ivory Paredes P.A.-C., M.S. LAB HIS TORICAL ORDERS [facility] [address] [place] [address], [facility] [address] [place] [address] * Type and Screen (with Reflex Antibody ID) (03/01/2024 8:59 PM CDT) Pathologist [facility] ABORh O Pos Not applicable 03/01/2024 9:30 PM CDT STRM Antibody Screen Negative Negative 03/01/2024 9:49 PM CDT STRM Type & Screen Expiration 03/04/2024 23:59 03/01/2024 9:30 PM CDT STRM Testing Location Kim DEFAULT 03/01/2024 9:09 PM CDT STRM Blood (Blood, Venous) 03/01/2024 8:59 PM CDT 03/01/2024 9:09 PM CDT Ivory Paredes P.A.-C., M.S. LAB BLO OD BANK TEST ORDERABLES [facility] [address] [place] [address], [facility]Department [facility] Affairs [facility] [address] [place] [address] * (ABNORMAL) Hepatic Function Panel (03/01/2024 8:59 PM CDT) Pathologist [facility] Bilirubin, Total, S 0.3 0.0 - 1.2 [...] 03/01/2024 9:43 PM CDT Ivory Paredes P.A.-C. MMayS. LAB BLO OD ADD-ON Performing Organization Address City/[facility]/ZIP Co de Phone Number [facility] [address] DTL [facility] [address] [place] [address] * Lactate (03/01/2024 8:59 PM CDT) Lactate, P 1.4 0.5 - 2.2 mmol/L 03/01/2024 9:22 PM CDT STMA Blood (Blood, Venous) 03/01/2024 8:59 PM CDT 03/01/2024 9:07 PM CDT Ivory Paredes P.A.-C., MMayS. LAB BLO OD NON ADD-ON Performing Organization Address City/[facility]/ZIP Co de Phone Number [facility] [address] [place] [address] * Calcium, Ionized (03/01/2024 8:59 PM CDT) Calcium, Ionized, B 5.17 4.65 - 5.30 mg/dL 03/01/2024 9:10 PM CDT STMA Blood (Blood, Venous) 03/01/2024 8:59 PM CDT 03/01/2024 9:07 PM CDT Ivory Paredes P.A.-C. M.S. LAB BLO OD NON ADD-ON Performing Organization Address City/[facility] Co de Phone Number [facility] [address] [place] [address] * Phosphorus Inorganic (03/01/2024 8:59 PM CDT) Pathologist [facility] Phosphorus (Inorganic), S 3.0 2.5 - 4.5 mg/dL 03/01/2024 10:19 PM CDT DTL Blood (Blood, Venous) 03/01/2024 8:59 PM CDT 03/01/2024 9:43 PM CDT Ivory Paredes P.A.-C., M.S. LAB BLO OD ADD-ON Performing Organization Address City/[facility] Co de Phone Number [facility] [address] [place] [address], [facility] [address] [place] [address] * Magnesium (03/01/2024 8:59 PM CDT) Pathologist [facility] Magnesium, S 1.8 1.7 - 2.3 mg/dL 03/01/2024 10:19 PM CDT DTL Blood (Blood, Venous) 03/01/2024 8:59 PM CDT 03/01/2024 9:43 PM CDT Ivory Paredes P.A.-C., M.S. LAB BLO OD ADD-ON Performing Organization Address City/[facility] Co de Phone Number [facility] [address] [place] [address], [facility] [address] [place] [address] * (ABNORMAL) Basic Metabolic Panel (03/01/2024 8:59 [...] Paredes P.A.-C., M.S. LAB BLO OD ADD-ON [facility] [address] [place] [address], [facility] [address] [place] [address] * (ABNORMAL) CBC without Differential (03/01/2024 8:59 [...] - 9.6 x10(9)/L 03/01/2024 10:01 PM CDT [facility] Blood (Blood, Venous) 03/01/2024 8:59 PM CDT 03/01/2024 9:07 PM CDT Ivory Paredes P.A.-C. MMayS. LAB BLO OD ADD-ON Performing Organization Address City/[facility]/ZIP Co de Phone Number [facility] [address] [place] [address], [facility] STMA [facility] [address] [place] [address] DHPM [facility] [address] [place] [address] * Glucose, POCT (03/01/2024 8:53 PM CDT) Glucose, POCT, B 97 70 - 140 mg/dL 03/01/2024 8:56 PM CDT PCLX Site Capillary 03/01/2024 8:56 PM CDT PCLX Blood 03/01/2024 8:53 PM CDT 03/01/2024 8:57 PM CDT Unknown Provider LAB POCT ORDERABLES- MANUAL Performing Organization Address City/[facility]/ZIP Co de Phone Number POC [facility] [address] [place] [address], [facility] PCLX [facility] POC [address] [place] [address] * Glucose, POCT (03/01/2024 5:12 PM CDT) Glucose, POCT, B 79 70 - 140 mg/dL 03/01/2024 5:14 PM CDT PCLX Site Capillary 03/01/2024 5:14 PM CDT PCLX Last Intake ContTubFdg 03/01/2024 5:14 PM CDT PCLX Blood 03/01/2024 5:12 PM CDT 03/01/2024 5:14 PM CDT Unknown Provider LAB POCT ORDERABLES- MANUAL POC [facility] [address] [place] [address], [facility] PCLX [facility] [address] [place] [address] * Lactate (03/01/2024 2:05 PM CDT) Pathologist [facility] Lactate, P 1.4 0.5 - 2.2 mmol/L 03/01/2024 2:24 PM CDT [facility] Blood (Blood, Venous) 03/01/2024 2:05 PM CDT 03/01/2024 2:10 PM CDT Gardenia Gordillo APRN, C.N.P., M.S.N. LAB BLOOD NON ADD-ON Performing Organization Address City/[facility]/ZIP Co de Phone Number [facility] [address] [place] [address], [facility] STMA [facility] [address] [place] [address] * (TTE) 2D ECHO DOPPLER COLOR AND CONTRAST (03/01/2024 12:44 PM CDT) [facility] Ejection Fraction 66 MC CV EIMS [...] report, see the Order-Level Documents. Tam Huang P.A.-C. M.S. CV EC HO PROCEDURES * Glucose, POCT (03/01/2024 11:57 AM CDT) Glucose, POCT, B 85 70 - 140 mg/dL 03/01/2024 11:59 AM CDT PCLX Site Capillary 03/01/2024 11:59 AM CDT PCLX Last Intake ContTubFdg 03/01/2024 11:59 AM CDT PCLX Blood 03/01/2024 11:5 7 AM CDT 03/01/2024 11:59 AM CDT Unknown Provider LAB POCT ORDERABLES- MANUAL POC [facility] [address] [place] [address], [facility] PCLX [facility] POC [address] [place] [address] * DX Chest Portable 1 View (03/01/2024 [...] 9:51 AM CDT 03/01/2024 9:56 AM CDT Hayley Donald APRN.Thierry., M.S.N. LAB BLOOD NON ADD-ON [facility] [address] [place] [address], [facility] [address] [place] [address] * (ABNORMAL) Blood Gas without Coox, Arterial (03/01/2024 9:51 AM CDT) Pathologist [facility] pO2 94 83 - 108 mm Hg [...] APRN, C.N.P., M.S.N. LAB BLOOD NON ADD-ON [facility] [address] [place] [address], [facility] [address] [place] [address] * Glucose, POCT (03/01/2024 9:06 AM CDT) Pathologist [facility] Glucose, POCT, B 81 70 - 140 mg/dL 03/01/2024 9:08 AM CDT PCLX Site Capillary 03/01/2024 9:08 AM CDT PCLX Blood 03/01/2024 9:06 AM CDT 03/01/2024 9:08 AM CDT Unknown Provider LAB POCT ORDERABLES- MANUAL Performing Organization Address City/[facility]/ZIP Co de Phone Number POC [facility] [address] [place] [address], [facility] PCLX [facility] POC [address] [place] [address] * (ABNORMAL) CBC without Differential (03/01/2024 4:33 AM CDT) Pathologist [facility] Hemoglobin 10.8(L) 13.2 - 16.6 g/dL 03/01/2024 [...] Girish Love APRN.N.P., D.N.P. LAB BLOOD ADD-ON [facility] [address] [place] [address], [facility] DTFroedtert [place] [facility] [place] [address] [place] [address] * (ABNORMAL) Basic Metabolic Panel (03/01/2024 4:33 [...] 5:30 AM CDT Erasmo Lloyd APRN, C.N.P., Keren.N.P. LAB BLOOD ADD-ON [facility] [address] [place] [address], [facility] DTL [facility] [address] [place] [address] * Glucose, POCT (03/01/2024 12:15 AM CDT) Glucose, POCT, B 99 70 - 140 mg/dL 03/01/2024 12:17 AM CDT PCLX Site Capillary 03/01/2024 12:17 AM CDT PCLX Blood 03/01/2024 12:1 5 AM CDT 03/01/2024 12:17 AM CDT Unknown Provider LAB POCT ORDERABLES- MANUAL POC [facility] [address] [place] [address], [facility] PCLX [facility] POC [address] [place] [address] * Glucose, POCT (02/29/2024 10:56 PM CDT) Glucose, POCT, B 85 70 - 140 mg/dL 02/29/2024 10:58 PM CDT PCLX Site Capillary 02/29/2024 10:58 PM CDT PCLX Blood 02/29/2024 10:5 6 PM CDT 02/29/2024 10:58 PM CDT Unknown Provider LAB POCT ORDERABLES- MANUAL POC [facility] [address] [place] [address], [facility] PCLX [facility] POC [address] [place] [address] * Glucose, POCT (02/29/2024 10:28 PM CDT) Glucose, POCT, B 84 70 - 140 mg/dL 02/29/2024 10:29 PM CDT PCLX Site Capillary 02/29/2024 10:29 PM CDT PCLX Blood 02/29/2024 10:2 8 PM CDT 02/29/2024 10:29 PM CDT Unknown Provider LAB POCT ORDERABLES- MANUAL POC [facility] [address] [place] [address], [facility] PCLX [facility] POC [address] [place] [address] * Glucose, POCT (02/29/2024 9:40 PM CDT) Glucose, POCT, B 112 70 - 140 mg/dL 02/29/2024 9:42 PM CDT PCLX Site Capillary 02/29/2024 9:42 PM CDT PCLX Blood 02/29/2024 9:40 PM CDT 02/29/2024 9:42 PM CDT Unknown Provider LAB POCT ORDERABLES- MANUAL Performing Organization Address City/[facility] Co de Phone Number [facility] [address] [place] [address], [facility] PCLX [facility] POC [address] [place] [address] * (ABNORMAL) Glucose, POCT (02/29/2024 9:11 PM CDT) Glucose, POCT, B 60(L) 70 - 140 mg/dL 02/29/2024 9:14 PM CDT PCLX Site Capillary 02/29/2024 9:14 PM CDT PCLX Blood 02/29/2024 9:11 PM CDT 02/29/2024 9:14 PM CDT Unknown Provider LAB POCT ORDERABLES- MANUAL [facility] [address] [place] [address], [place] PCLX [facility] POC [address] [place] [address] * Glucose, POCT (02/29/2024 6:50 PM CDT) Glucose, POCT, B 98 70 - 140 mg/dL 03/01/2024 3:25 PM CDT PCLX Site Capillary 03/01/2024 3:25 PM CDT PCLX Blood 02/29/2024 6:50 PM CDT 03/01/2024 3:25 PM CDT Unknown Provider LAB POCT ORDERABLES- MANUAL POC [facility] [address] [place] [address], [facility] PCLX [facility] POC [address] [place] [address] * Glucose, POCT (02/29/2024 6:28 PM CDT) Glucose, POCT, B 72 70 - 140 mg/dL 03/01/2024 3:25 PM CDT PCLX Site Capillary 03/01/2024 3:25 PM CDT PCLX Blood 02/29/2024 6:28 PM CDT 03/01/2024 3:25 PM CDT Unknown Provider LAB POCT ORDERABLES- MANUAL POC [facility] [address] [place] [address], [facility] PCLX [facility] POC [address] [place] [address] * (ABNORMAL) Glucose, POCT (02/29/2024 5:56 PM CDT) Glucose, POCT, B 64(L) 70 - 140 mg/dL 03/01/2024 3:25 PM CDT PCLX Site Capillary 03/01/2024 3:25 PM CDT PCLX Blood 02/29/2024 5:56 PM CDT 03/01/2024 3:25 PM CDT Unknown Provider LAB POCT ORDERABLES- MANUAL Performing Organization Address City/[facility] Co de Phone Number POC [facility] [address] [place] [address], [facility] PCLX [facility] POC [address] [place] [address] * (ABNORMAL) Glucose, POCT (02/29/2024 5:39 PM CDT) Glucose, POCT, B 60(L) 70 - 140 mg/dL 03/01/2024 3:25 PM CDT PCLX Site Capillary 03/01/2024 3:25 PM CDT PCLX Last Intake NPO 03/01/2024 3:25 PM CDT PCLX Blood 02/29/2024 5:39 PM CDT 03/01/2024 3:25 PM CDT Unknown Provider LAB POCT ORDERABLES- MANUAL Performing Organization Address [facility] Co de Phone Number [facility] [address] [place] [address], [facility] PCLX [facility] POC [address] [place] [address] * (ABNORMAL) Glucose, POCT (02/29/2024 5:15 PM CDT) Glucose, POCT, B 50(L) 70 - 140 mg/dL 02/29/2024 5:17 PM CDT PCLX Site Capillary 02/29/2024 5:17 PM CDT PCLX Last Intake NPO 02/29/2024 5:17 PM CDT PCLX Blood 02/29/2024 5:15 PM CDT 02/29/2024 5:18 PM CDT Unknown Provider LAB POCT ORDERABLES- MANUAL Performing Organization Address City/[facility]/ZIP Co de Phone Number [facility] [address] [place] [address], [facility] PCLX [facility] POC [address] [place] [address] * Gram Stain (02/29/2024 12:37 PM CDT) Gram Stain No organisms seen. White blood cells, Many. Epithelial cells, Moderate. 02/29/2024 2:53 PM CDT DTL Tracheal Secretions 02/29/2024 12:37 PM CDT 02/29/2024 1:41 PM CDT Comment:Specimen Source Site : Sputum Girish Love APRN.N.P., D.N.P. LAB MICROBIOLOGY - GENERAL ORDERABLES Performing Organization Address [facility]/ZIP Co de Phone Number [facility] [address] [place] [address], [facility] DTL [facility] [address] [place] [address] * (ABNORMAL) Bacterial Culture, Aerobic + Susceptibility, [...] FARIHA (MCG/ML) <=1 mcg/mL: Susceptible Erasmo Lloyd APRN C.N.P., D.N.P. LAB MICROBIOLOGY - GENERAL ORDERABLES [facility] [address] [place] [address], [place] DTL [facility] [address] [place] [address] * CT Chest Angiogram and Pulmonary Arteries [...] are consistent with multifocal pneumonia or aspirationpneumonia. Girish Love APRN.N.P., D.N.P. [facility] CT PROCEDURES * Respiratory Panel, [...] using the FDA-Cleared FilmArray Respiratory Panel 2.1 (Nautal). Swab (Nasopharynx) 02/29/2024 9:12 AM CDT 02/29/2024 9:12 AM CDT Girish Love APRN.N.P., D.N.P. LAB MICROBIOLOGY - GENERAL ORDERABLES Performing Organization Address City/[facility]/ZIP [place] [address] * Staph aureus / MRSA, Nasal, PCR (02/29/2024 8:05 AM CDT) Staphylococcus aureus, PCR Negative Negative 02/29/2024 11:46 AM CDT DTL MRSA, PCR Negative Negative 02/29/2024 11:46 AM CDT DTL Swab (Nares) 02/29/2024 8:05 AM CDT 02/29/2024 9:12 AM CDT Girish Love APRN.N.P., D.N.P. LAB MICROBIOLOGY - GENERAL ORDERABLES Performing Organization Address City/[facility]/[place] [address] * Interpretation of Outside US Vascular (02/29/2024 6:05 AM CDT) Anatomical Region Laterality Modality Ultrasound RST LOS, Ultrasou nd ARZ LOS, Ultrasound FLA LOS, Procedural, Other, Vascular N/A Ultrasound Impressions 02/29/2024 10:22 AM CDT Positive for acute DVT in the mid to lower femoral vein through popliteal vein. Result discussed with BETO Nguyen ([id number]) by Dr. Schulte on 02/29/2024 at 0950 hours. Narrative 02/29/2024 10:22 AM CDT EXAM: ??INTERPRETATION OF OUTSIDE US VASCULAR. Bilateral lower extremity venous ultrasound performed on 02/28/2024 at outside facility. Interpretation provided without the benefit of real-time scanning or discussion with the manufacturing maintenance mechanic. COMPARISON: ??None FINDINGS: ?? RIGHT: The common [...] benefit of real-time scanning ordiscussion with the manufacturing maintenance mechanic. COMPARISON: None FINDINGS: RIGHT: The common femoral, [...] through poplitealvein. Result discussed with BETO Nguyen ([id number]) by Dr. Schulte on02/29/2024 at 0950 hours. Erasmo Lloyd APRN, C.N.P., Keren.N.P. [facility] US PROCEDURES * (ABNORMAL) Basic Metabolic Panel [...] CDT 02/29/2024 6:03 AM CDT Erasmo Lloyd APRN, C.N.P., Keren.N.P. LAB BLOOD ADD-ON [facility] [address] [place] [address], [facility] DTL [facility] [address] [place] [address] * (ABNORMAL) CBC without Differential (02/29/2024 4:48 AM CDT) Pathologist [facility] Hemoglobin 10.6(L) 13.2 - 16.6 g/dL 02/29/2024 [...] CDT 02/29/2024 5:46 AM CDT Erasmo Lloyd APRN C.N.P., D.N.P. LAB BLOOD ADD-ON [facility] [address] [place] [address] [address] [place] [address] * Glucose, POCT (02/28/2024 9:10 PM CDT) Pathologist [facility] Glucose, POCT, B 87 70 - 140 mg/dL 02/28/2024 9:11 PM CDT PCLX Site Capillary 02/28/2024 9:11 PM CDT PCLX Blood 02/28/2024 9:10 PM CDT 02/28/2024 9:11 PM CDT Unknown Provider LAB POCT ORDERABLES- MANUAL POC [facility] [address] [place] [address], [facility] PCLX [facility] [address] [place] [address] * Patient Status (02/28/2024 5:45 PM CDT) O2 Flow 7.0 L/min 02/28/2024 5:50 PM CDT STMA Device CFM 02/28/2024 5:50 PM CDT STMA Spont. breaths/min 14 02/28/2024 5:50 PM CDT STMA Blood 02/28/2024 5:45 PM CDT 02/28/2024 5:50 PM CDT Erasmo Lloyd APRN, C.N.P., D.N.P. LAB BLOOD NON ADD-ON [facility] [address] [place] [address], [facility] STMA [facility] [address] [place] [address] * (ABNORMAL) Blood Gas without Coox, Arterial [...] Love APRNNMayP., D.N.P. LAB BLOOD NON ADD-ON [facility] [address] [place] [address], [facility] [address] [place] [address] * Patient Status (02/28/2024 3:30 PM CDT) Pathologist [facility] FIO2 0.40 0.21=AIR 02/28/2024 3:35 PM CDT STMA Device CFM 02/28/2024 3:35 PM CDT STMA Spont. breaths/min 13 02/28/2024 3:35 PM CDT STMA Blood 02/28/2024 3:30 PM CDT 02/28/2024 3:35 PM CDT eNel Love APRNN.PMay, D.N.P. LAB BLOOD NON ADD-ON Performing Organization Address City/[facility] Co de Phone Number [facility] [address] [place] [address], [facility] [address] [place] [address] * (ABNORMAL) Blood Gas without Coox, Venous [...] Love APRN.N.P., D.N.P. LAB BLOOD NON ADD-ON [facility] [address] STMA [facility] [address] [place] [address] * (ABNORMAL) CBC without Differential (02/28/2024 3:29 [...] Lloyd APRN C.N.P., D.N.P. LAB BLOOD ADD-ON [facility] [address] [place] [address], [facility] [address] [place] [address] * (ABNORMAL) Basic Metabolic Panel (02/28/2024 3:29 PM CDT) Potassium, P 4.2 3.6 - 5.2 [...] Lloyd APRN, C.N.P., D.N.P. LAB BLOOD ADD-ON [facility] [address] [place] [address], [facility] STMA [facility] [address] [place] [address] documented in this encounter Visit Diagnoses Diagnosis Acute Respiratory Failure With Hypoxia (HCC)- Primary Acute Respiratory Failure With Hypoxia (HCC) Aspiration Pneumonia Secondary to Procedure Decline Functional Status [R53.81] Pneumoperitoneum Pneumonia Leukemia Lymphocytic Acute Remission (HCC) Brain Stem Stroke Syndrome Apnea Sleep Obstructive Acute Embolism And Thrombosis Of Left Femoral Vein (HCC) Coma (HCC) Seizure (HCC) [place] Gastaut Syndrome (HCC) Cerebrovascular Disease Dysphagia Reflux Esophageal Nephrolithiasis Severe Sepsis With Septic Shock (HCC) Jejunostomy Status Post (HCC) Delirium (not otherwise specified) Gastrostomy Status (HCC) Hyponatremia documented in this encounter Admitting Diagnoses Diagnosis [...] Starting on Wed03/10/24 at 1730 fat emulsion [id number] & fish oil infusion 50 g (SMOFlipid) [...] or score 7-10 of 10, Starting on 03/13/24 at 2316, If pain uncontrolled, contact provider team for more options. Given 03/14/2024 1:42 AM CDT 25 mcg heparin (porcine) injection 5,000 Units 5,000 Units, subcutaneous, Every 8 hours scheduled, First dose on 03/12/24 at 0600 Given 03/13/2024 9:03 PM CDT 5,000 Units Left Upper Arm (Back ) Given 03/13/2024 2:01 PM CDT 5,000 Units L eft Outer Thigh Given 03/13/2024 5:25 AM CDT 5,000 Units L eft Outer Thigh ipratropium-albuteroL 0.5-2.5 mg/3 mL nebulizer solution 3 mL (DUONEB) 3 mL, nebulization, 4 times daily PRN, wheezing, shortness of breath, Starting on 02/28/24 at 1625 lacosamide injection 200 mg (Vimpat) 200 mg, intravenous, Every 12 hours, First dose (after last modification) on [facility] 03/11/24 at 1900 Given 03/13/2024 6:34 PM CDT 200 mg Given 03/13/2024 6:01 AM CDT 200 mg Given 03/12/2024 6:18 PM CDT 200 mg levETIRAcetam 2,000 mg in NaCl 0.9% IVPB (Keppra) 2,000 mg, intravenous, at 210 mL/hr, Administer over 20 Minutes, Every 12 hours, First dose (after last reorder) on [place] 03/12/24 at 1045, Do NOT refrigerate. New Bag [...] Action Action Date Dose Rate Site acetaminophen injection 1,000 mg 1,000 mg, intravenous, at 400 mL/hr, Administer over 15 Minutes, Once, On Wed03/12/24 at 1230, For 1 dose, Restriction Criteria (Pharmacy will review and approve if criteria met): Unable to take or tolerate medications administered via the enteral route or orally (not just NPO) New Bag 03/12/2024 1:23 PM CDT 1,000 mg 400 mL/hr acetaminophen tablet 1,000 mg (TYLENOL) 1,000 mg, gastric tube, Every 6 hours PRN, mild pain or score 1-3 of 10, fever, Starting on 02/28/24 at 1617 Given 03/08/2024 11:54 PM CDT 1,000 mg Given 03/04/2024 2:55 PM CDT 1,000 mg Given 03/01/2024 6:56 PM CDT 1,000 mg acetic acid 0.25 % irrigation solution (sterile) 1 Application 1 Application, topical, 3 times daily, First dose on Wed03/02/24 at 2100, Place 0.25% Acetic acid on [place]??, apply on top of ointment/cream as soon as applied and leave in place for 2 hours. Given 03/13/2024 9:50 AM CDT 1 Application Given 03/12/2024 8:15 PM CDT 1 Application Given 03/12/2024 1:30 PM CDT 1 Application adult/child > 40 kg central parenteral nutrition (CPN) infusion intravenous, at 45.8 mL/hr, Administer over 24 Hours, Continuous PN, Starting on Wed03/10/24 at 2100, For 24 hours, Use a 0.22 micron filter., Indication: Ileus Restarted 03/11/2024 5:08 PM CDT Rate/Dose Verify 03/11/2024 3:00 PM CDT 45.8 mL /hr Rate/Dose Verify 03/11/2024 2:16 PM CDT adult/child > 40 kg central parenteral nutrition (CPN) infusion intravenous, at 45.8 mL/hr, Administer over 24 Hours, Continuous PN, Starting on Wed03/11/24 at 2100, For 24 hours, Use a 0.22 micron filter., Indication: Ileus Rate/Dose Verify 03/12/2024 8:00 PM CDT 45.8 mL/h r Rate/Dose Verify 03/12/2024 7:00 PM CDT 45.8 mL /hr Rate/Dose Verify 03/12/2024 6:00 PM CDT 45.8 mL /hr adult/child > 40 kg central parenteral nutrition (CPN) infusion intravenous, at 45.8 mL/hr, Administer over 24 Hours, Continuous PN, Starting on Wed03/12/24 at 2100, For 24 hours, Use a 0.22 micron filter., Indication: Ileus Rate/Dose Verify 03/13/2024 8:00 PM CDT 45.8 mL/h r Rate/Dose Verify 03/13/2024 7:30 PM CDT 45.8 mL /hr Rate/Dose Verify 03/13/2024 6:00 PM CDT 45.8 mL /hr albumin human 5 % injection 25 g [...] days Given 03/01/2024 8:42 AM CDT 10 m g Given 02/29/2024 8:47 PM CDT 10 mg Given 02/29/2024 11:28 AM CDT 10 mg apixaban tablet 5 mg (Eliquis) 5 mg, gastric tube, 2 times daily, First dose (after last modification) on Wed03/02/24 at 2100 Given 03/09/2024 8:33 PM CDT 5 mg Given 03/09/2024 8:23 AM CDT 5 mg Given 03/08/2024 8:10 PM CDT 5 mg baclofen tablet 10 mg (LioresaL) 10 mg, gastric tube, 4 times daily, First dose (after last modification) on Wed03/06/24 at 1700 Given 03/09/2024 8:35 PM CDT 10 mg Given 03/09/2024 5:04 PM CDT 10 mg Given 03/09/2024 1:22 PM CDT 10 mg baclofen tablet 20 mg (LioresaL) 20 mg, gastric tube, 4 times daily, First dose on Wed02/28/24 at 1700 Given 03/06/2024 11:54 AM CDT 20 mg Given 03/06/2024 8:57 AM CDT 20 mg Given 03/05/2024 8:42 PM CDT 20 mg bisacodyL suppository 10 mg (DULCOLAX) 10 mg, rectal, Daily PRN, constipation, if no results from AM miralax, Starting on Wed02/28/24 at 1643 Given 03/10/2024 2:19 AM CDT 10 mg Given 03/09/2024 11:04 AM CDT 10 mg Given 03/07/2024 8:11 AM CDT 10 mg cannabidioL solution 400 mg (EPIDIOLEX) 400 mg, gastric tube, Daily, First dose on Wed02/29/24 at 0900 Given 03/09/2024 8:31 AM CDT 400 mg Given 03/08/2024 8:30 AM CDT 400 mg Given 03/07/2024 8:12 AM CDT 400 mg cannabidioL solution 600 mg (EPIDIOLEX) 600 mg, gastric tube, Daily at bedtime, First dose on Wed02/28/24 at 2100 Given 03/09/2024 8:33 PM CDT 600 mg Given 03/08/2024 8:26 PM CDT 600 mg Given 03/07/2024 8:42 PM CDT 600 mg caspofungin 70 mg in NaCl 0.9% IVPB (Cancidas) 70 mg, intravenous, at 260 mL/hr, Administer over 60 Minutes, Once, On Wed03/13/24 at 0930, For 1 dose, Loading dose, Indications: Intra-abdominal infection, healthcare associated New Bag 03/13/2024 10:56 AM CDT 70 mg 260 mL/h r cefepime in dextrose (iso osm) IVPB 2 [...] 12:31 AM CDT 2 g 200 mL/hr cefepime in dextrose (iso osm) IVPB 2 g (Maxipime) 2 g, intravenous, at 200 mL/hr, Administer over 30 Minutes, Once, On Wed03/13/24 at 1115, For 1 dose, Drug Monitoring Program: Pharmacist to adjust medication dosing based on indication and drug clearance factors., Indications: Intra-abdominal infection, healthcare associated, Respiratory tract infection, healthcare associated New Bag 03/13/2024 3:37 PM CDT 2 g 200 mL/hr cefTRIAXone [...] 12:16 PM CDT 2 g 200 mL/hr cefTRIAXone in dextrose (iso osm) IVPB 2 g (Rocephin) 2 g, intravenous, at 200 mL/hr, Administer over 15 Minutes, Every 24 hours, First dose on Wed03/10/24 at 1230, For 6 doses, Drug Monitoring Program: Pharmacist to adjust medication dosing based on indication and drug clearance factors., Indications: Intra-abdominal infection, healthcare associated New Bag 03/12/2024 11:57 AM CDT 2 g 200 mL/hr New Bag 03/11/2024 11:43 AM CDT 2 g 200 mL/hr New Bag 03/10/2024 1:35 PM CDT 2 g 200 mL/hr cloBAZam tablet 10 mg (ONFI) 10 mg, gastric tube, Every evening, First dose on Wed02/28/24 at 1800 Given 03/09/2024 5:04 PM CDT 10 mg Given 03/08/2024 5:15 PM CDT 10 mg Given 03/07/2024 5:14 PM CDT 10 mg cloBAZam tablet 15 mg (ONFI) 15 mg, gastric tube, Every morning, First dose on Wed02/29/24 at 0900 Given 03/09/2024 8:27 AM CDT 15 mg Given 03/08/2024 8:29 AM CDT 15 mg Given 03/07/2024 8:11 AM CDT 15 mg D10W bolus 125 [...] 9:15 PM CDT 125 mL 500 mL/hr D5W and NaCl 0.9 % bolus 500 mL 500 mL, intravenous, at 125 mL/hr, Administer over 4 Hours, Once, On [place] 03/09/24 at 1600, For 1 dose Rate/Dose Verify 03/09/2024 7:00 PM CDT 125 mL/hr Rate/Dose Verify 03/09/2024 6:00 PM CDT 125 mL/ hr Rate/Dose Verify 03/09/2024 5:00 PM CDT 125 mL/ hr docusate sodium 283 mg/5 mL enema 1 enema (Enemeez) 1 enema, rectal, Daily PRN, constipation, Starting on 03/05/24 at 1855 Given 03/10/2024 12:45 AM CDT 1 enema Given 03/07/2024 10:32 AM CDT 1 enema Given 03/05/2024 7:59 PM CDT 1 enema doxycycline 100 mg in NaCl 0.9% IVPB (VIBRAMYCIN) 100 mg, intravenous, at 100 mL/hr, Administer over 60 Minutes, Every 12 hours, First dose on Wed02/28/24 at 1630, Mini-Bag Plus bag, Indications: Respiratory tract infection, community acquired New Bag 02/29/2024 4:29 AM CDT 100 mg 1 00 mL/hr New Bag 02/28/2024 7:13 PM CDT [...] Given 02/28/2024 6:27 PM CDT 1,200 mg felbamate suspension 1,200 mg (FELBATOL) 1,200 mg, gastric tube, 2 times daily, First dose on Wed02/28/24 at 2100 Given 03/09/2024 8:34 PM CDT 1,200 mg Given 03/09/2024 2:27 PM CDT 1,200 mg Given 03/08/2024 8:25 PM CDT 1,200 mg felbamate suspension 1,500 mg (FELBATOL) 1,500 mg, gastric tube, Daily before breakfast, First dose on Wed02/29/24 at 0700 Given 03/10/2024 6:17 AM CDT 1,500 mg Given 03/09/2024 6:03 AM CDT 1,500 mg Given 03/08/2024 6:19 AM CDT 1,500 mg fentaNYL 10 mcg/mL in NaCl 0.9% [...] PM CDT 25 mcg/hr 2.5 mL/ hr fluconazole in NaCl 0.9 % (iso osm) IVPB 400 mg (Diflucan) 400 mg, intravenous, at 100 mL/hr, Every 24 hours, First dose on Wed03/10/24 at 1230, Drug Monitoring Program: Pharmacist to adjust medication dosing based on indication and drug clearance factors., Indications: Intra-abdominal infection, healthcare associated New Bag 03/10/2024 12:51 PM CDT 400 mg 100 mL/hr furosemide injection 20 mg (Lasix) 20 mg, intravenous, Once, On 03/04/24 at 0800, For 1 dose, Adults: Doses less than 120 mg: IV push over 20 mg/minute. Doses 120 mg or greater: IVPB at 4 mg/minute. Peds/Neonates: Doses less than 120 mg over 0.5 mg/kg/minute. Doses 120 mg or greater: IVPB at 4 mg/minute. Given 03/04/2024 8:06 AM CDT 20 mg furosemide injection 20 mg (Lasix) 20 mg, intravenous, Once, On 03/04/24 at 1300, For 1 dose, Adults: Doses less than 120 mg: IV push over 20 mg/minute. Doses 120 mg or greater: IVPB at 4 mg/minute. Peds/Neonates: Doses less than 120 mg over 0.5 mg/kg/minute. Doses 120 mg or greater: IVPB at 4 mg/minute. Given 03/04/2024 1:04 PM CDT 20 mg furosemide injection 20 mg (Lasix) 20 mg, intravenous, Once, On Wed03/12/24 at 2115, For 1 dose, Adults: Doses less than 120 mg: IV push over 20 mg/minute. Doses 120 mg or greater: IVPB at 4 mg/minute. Peds/Neonates: Doses less than 120 mg over 0.5 mg/kg/minute. Doses 120 mg or greater: IVPB at 4 mg/minute. Given 03/12/2024 9:20 PM CDT 20 mg furosemide injection 20 mg (Lasix) 20 mg, intravenous, Once, On Wed03/13/24 at 1530, For 1 dose, Adults: Doses less than 120 mg: IV push over 20 mg/minute. Doses 120 mg or greater: IVPB at 4 mg/minute. Peds/Neonates: Doses less than 120 mg over 0.5 mg/kg/minute. Doses 120 mg or greater: IVPB at 4 mg/minute. Given 03/13/2024 3:43 PM CDT 20 mg furosemide injection 40 mg (Lasix) 40 mg, intravenous, Once, On [facility] 03/04/24 at 2045, For 1 dose, Adults: Doses less than 120 mg: IV push over 20 mg/minute. Doses 120 mg or greater: IVPB at 4 mg/minute. Peds/Neonates: Doses less than 120 mg over 0.5 mg/kg/minute. Doses 120 mg or greater: IVPB at 4 mg/minute. Given 03/04/2024 8:31 PM CDT 40 mg furosemide injection 40 mg (Lasix) 40 mg, intravenous, Once, On [place] 03/05/24 at 0645, For 1 dose, Adults: Doses less than 120 mg: IV push over 20 mg/minute. Doses 120 mg or greater: IVPB at 4 mg/minute. Peds/Neonates: Doses less than 120 mg over 0.5 mg/kg/minute. Doses 120 mg or greater: IVPB at 4 mg/minute. Given 03/05/2024 6:31 AM CDT 40 mg furosemide injection 40 mg (Lasix) 40 mg, intravenous, Once, On 03/06/24 at 0215, For 1 dose, Adults: Doses less than 120 mg: IV push over 20 mg/minute. Doses 120 mg or greater: IVPB at 4 mg/minute. Peds/Neonates: Doses less than 120 mg over 0.5 mg/kg/minute. Doses 120 mg or greater: IVPB at 4 mg/minute. Given 03/06/2024 2:31 AM CDT 40 mg furosemide injection 40 mg (Lasix) 40 mg, intravenous, Once, On Wed03/13/24 at 1945, For 1 dose, Adults: Doses less than 120 mg: IV push over 20 mg/minute. Doses 120 mg or greater: IVPB at 4 mg/minute. Peds/Neonates: Doses less than 120 mg over 0.5 mg/kg/minute. Doses 120 mg or greater: IVPB at 4 mg/minute. Given 03/13/2024 7:36 PM CDT 40 mg heparin (porcine) injection 5,000 Units 5,000 Units, subcutaneous, Every 8 hours scheduled, First dose on Wed02/28/24 at 1530 Given 02/29/2024 6:06 AM CDT 5,000 Units Right Upper Arm (Back) Given 02/28/2024 9:53 PM CDT 5,000 Units L eft Lower Abdomen Given 02/28/2024 4:20 PM CDT 5,000 Units R ight Lower Abdomen hydrocortisone 1 % ointment topical, 3 times daily, First dose on Wed03/02/24 at 2100, Apply ointment to the affected skin around the PEJ tube and buttocks to groin. If using ointment and cream, mix 50/50 and apply as directed. Given 03/13/2024 9:50 AM CDT 1 g Given 03/12/2024 8:15 PM CDT Given 03/12/2024 1:30 PM CDT iohexoL 300 mg iodine/mL solution 1-200 mL (Omnipaque) 1-200 mL, intravenous, Once in imaging, contrast, Starting on Wed03/07/24 at 1441, For 1 dose, Imaging Protocol Orders, Dose per Radiant Medication Guidelines Given 03/07/2024 2:41 PM CDT 140 mL iohexoL 300 mg iodine/mL solution 1-200 mL (Omnipaque) 1-200 mL, intravenous, Once in imaging, contrast, Starting on Wed03/10/24 at 0951, For 1 dose, Imaging Protocol Orders, Dose per Radiant Medication Guidelines Given 03/10/2024 10:04 AM CDT 140 mL iopromide 370 mg iodine/mL injection 1-162 mL (ULTRAVIST) 1-162 mL, intravenous, Once in imaging, contrast, Starting on Wed02/29/24 at 1209, For 1 dose, Imaging Protocol Orders, Dose per Radiant Medication Guidelines Given 02/29/2024 12:17 PM CDT 80 mL ketamine 2 mg/mL in NaCl 0.9 % [...] 6:33 PM CDT 0.1 mg/kg/hr 3.47 mL/hr lacosamide injection 400 mg (Vimpat) 400 mg, intravenous, Once, On Wed03/11/24 at 1100, For 1 dose Given 03/11/2024 12:09 PM CDT 400 mg Lactated Ringer's bolus 1,000 mL 1,000 mL, intravenous, at 1,000 mL/hr, Administer over 1 Hours, Once, On Wed03/12/24 at 0130, For 1 dose New Bag 03/12/2024 1:09 AM CDT 1,000 mL 1000 mL/hr Lactated Ringer's bolus 500 mL 500 mL, intravenous, at 500 mL/hr, Administer over 1 Hours, Once, On Wed03/10/24 at 1000, For 1 dose New Bag 03/10/2024 11:17 AM CDT 500 mL 500 mL/hr Lactated Ringer's 150 mL/hr, intravenous, Continuous, Starting on Wed03/10/24 at 1800 Rate/Dose Verify 03/10/2024 10:00 PM CDT 150 mL/hr 150 mL/hr Rate/Dose Verify 03/10/2024 9:00 PM CDT 150 mL/hr 150 mL/ hr Rate/Dose Verify 03/10/2024 8:00 PM CDT 150 mL/hr 150 mL/ hr Lactated Ringer's 20 mL/hr, intravenous, Continuous, Starting on Wed03/10/24 at 2345 Rate/Dose Verify 03/13/2024 6:00 PM CDT 20 mL/hr 20 mL/hr Rate/Dose Verify 03/13/2024 5:00 PM CDT 20 mL/hr 20 mL/h r Rate/Dose Verify 03/13/2024 4:00 PM CDT 20 mL/hr 20 mL/h r lactulose in sterile water 200 gram/1000 mL enema 1,000 mL 1,000 mL, rectal, Once, On Wed03/02/24 at 1245, For 1 dose, Total dose= 1000 mL; Instill ~ 300 mL at a time, and retain for 15-20 minutes each Given 03/02/2024 2:07 PM CDT 1,000 mL lactulose in sterile water 200 gram/1000 mL enema 1,000 mL 1,000 mL, rectal, Once, On Wed03/10/24 at 0245, For 1 dose, Total dose= 1000 mL; Instill ~ 300 mL at a time, and retain for 15-20 minutes each Given 03/10/2024 2:33 AM CDT 1,000 mL lactulose solution 10 g 10 g, small bowel tube, 3 times daily, First dose on Wed03/08/24 at 1400 Given 03/08/2024 2:34 PM CDT 10 g lactulose solution 20 g 20 g, gastric tube, Once, On Wed03/02/24 at 1245, For 1 dose Given 03/02/2024 12:52 PM CDT 20 g lactulose solution 20 g 20 g, small bowel tube, 3 times daily, First dose (after last modification) on Wed03/08/24 at 2100 Given 03/09/2024 1:52 PM CDT 20 g Given 03/09/2024 8:34 AM CDT 20 g Given 03/08/2024 8:29 PM CDT 20 g lamoTRIgine tablet 300 mg (LaMICtaL) 300 mg, gastric tube, Daily at bedtime, First dose on Wed02/28/24 at 2100 Given 03/09/2024 8:33 PM CDT 300 mg Given 03/08/2024 8:11 PM CDT 300 mg Given 03/07/2024 8:37 PM CDT 300 mg lamoTRIgine tablet 350 mg (LaMICtaL) 350 mg, gastric tube, Once, On Wed02/28/24 at 1545, For 1 dose Given 02/28/2024 4:18 PM CDT 350 mg lamoTRIgine tablet 350 mg (LaMICtaL) 350 mg, gastric tube, Every morning, First dose on Wed02/29/24 at 0900 Given 03/09/2024 8:24 AM CDT 350 mg Given 03/08/2024 8:28 AM CDT 350 mg Given 03/07/2024 8:11 AM CDT 350 mg lamoTRIgine tablet 350 mg (LaMICtaL) 350 mg, gastric tube, Every afternoon, First dose on Wed02/29/24 at 1400 Given 03/09/2024 5:03 PM CDT 350 mg Given 03/08/2024 4:26 PM CDT 350 mg Given 03/07/2024 3:49 PM CDT 350 mg levETIRAcetam 1,600 mg in NaCl 0.9% IVPB (Keppra) 1,600 mg, intravenous, at 198 mL/hr, Administer over 20 Minutes, Every evening, First dose on Wed03/10/24 at 2100, Do NOT refrigerate. New Bag 03/10/2024 9:12 PM CDT 1,600 mg 198 mL/hr levETIRAcetam in NaCl (iso osm) IVPB 1,500 mg (Keppra) 1,500 mg, intravenous, at 300 mL/hr, Administer over 20 Minutes, Every morning, First dose on Wed03/10/24 at 1245 New Bag 03/11/2024 8:38 AM CDT 1,500 mg 300 mL/hr Given 03/10/2024 2:13 PM CDT 1,500 mg levETIRAcetam solution 1,500 mg (Keppra) 1,500 mg, gastric tube, Every morning, First dose on Wed02/29/24 at 0900 Given 03/09/2024 8:31 AM CDT 1,500 mg Given 03/08/2024 8:30 AM CDT 1,500 mg Given 03/07/2024 9:12 AM CDT 1,500 mg levETIRAcetam solution 1,600 mg (Keppra) 1,600 mg, gastric tube, Daily at bedtime, First dose on Wed02/28/24 at 2100 Given 03/09/2024 8:34 PM CDT 1,600 mg Given 03/08/2024 8:26 PM CDT 1,600 mg Given 03/07/2024 8:42 PM CDT 1,600 mg LORazepam injection 2 mg (Ativan) 2 mg, intravenous, Once, On [place] 03/12/24 at 2345, For 1 dose, Shortage on injection, use oral when possible For intravenous use, dilute with equal volume of 0.9% NS Given 03/12/2024 11:30 PM CDT 2 mg LORazepam injection 2 mg (Ativan) 2 mg, intravenous, Once, On Wed03/13/24 at 1400, For 1 dose, Shortage on injection, use oral when possible For intravenous use, dilute with equal volume of 0.9% NS Given 03/13/2024 1:36 PM CDT 2 mg magnesium citrate solution 296 mL 296 mL, oral, Once, On [place] 03/09/24 at 1215, For 1 dose Given 03/09/2024 1:22 PM CDT 296 mL magnesium sulfate in water IVPB 2 g 2 g, intravenous, at 25 mL/hr, Administer over 120 Minutes, Once, On [place] 03/05/24 at 0715, For 1 dose, Over 2 hours. New Bag 03/05/2024 7:22 AM CDT 2 g 25 mL/hr magnesium sulfate in water IVPB 2 g 2 g, intravenous, at 25 mL/hr, Administer over 120 Minutes, Once, On [facility] 03/11/24 at 2245, For 1 dose New Bag 03/11/2024 10:54 PM CDT 2 g 25 mL/hr magnesium sulfate in water IVPB 2 g 2 g, intravenous, at 25 mL/hr, Administer over 120 Minutes, Once, On Wed03/13/24 at 0615, For 1 dose New Bag 03/13/2024 6:19 AM CDT 2 g 25 mL/hr mineral oil-glycerin enema 1 enema 1 enema, rectal, Once, On [place] 03/09/24 at 1615, For 1 dose Given 03/09/2024 4:31 PM CDT 1 enema NaCl 0.9 % bolus 500 mL 500 mL, intravenous, at 1,000 mL/hr, Administer over 30 Minutes, Once, On Wed02/29/24 at 1830, For 1 dose New Bag 02/29/2024 6:13 PM CDT 500 mL 1000 mL/hr NaCl 0.9 % bolus 500 mL 500 mL, intravenous, at 125 mL/hr, Administer over 4 Hours, Once, On [place] 03/09/24 at 0645, For 1 dose New Bag 03/09/2024 6:36 AM CDT 500 mL 125 mL/hr NaCl 0.9% bacteriostatic 0.9 % injection 20 mL 20 mL, intravenous, As needed, for agitated saline (bubble) studies, Starting on Wed03/01/24 at 1233, Intraprocedure - Diagnostic, See Ani. Given 03/01/2024 12:34 PM CDT 20 mL norepinephrine 16 mcg/mL in D5W 250 mL [...] AM CDT 0.02 mcg/kg/min 5. 21 mL/hr norepinephrine 16 mcg/mL in D5W 250 mL infusion 0-0.3 mcg/kg/min ? 69.4 kg Dosing weight (0-78.075 mL/hr, rounded to 0-78.08 mL/hr), intravenous, Continuous, Starting on 03/01/24 at 2045, Protect from light and avoid extravasation, Patient Type: Sepsis, Initiate at: 0.05 mcg/kg/min, Titrate at: 0.05 mcg/kg/min. every 5 min., Wean at: 0.01 mcg/kg/min. every 5 min., Goal: MAP 65-75 Rate/Dose Verify 03/04/2024 8:00 AM CDT 0.02 mcg/kg/min 5.21 mL/hr Rate/Dose Verify 03/04/2024 7:00 AM CDT 0.02 mcg/kg/min 5. 21 mL/hr Rate/Dose Change 03/04/2024 6:41 AM CDT 0.02 mcg/kg/min 5. 21 mL/hr norepinephrine 16 mcg/mL in D5W 250 [...] dose on [place] 03/02/24 at 2100, Apply cream to affected tissue around the PEJ tube. If using ointment and cream, mix 50/50 and apply as directed. Given 03/06/2024 9:12 AM CDT 1 Application Given 03/05/2024 8:42 PM CDT 1 Application Given 03/05/2024 2:15 PM CDT 1 Application nystatin 100,000 unit/gram cream 1 Application (Mycostatin) 1 Application, topical, 3 times daily, First dose (after last modification) on Wed03/06/24 at 1400, Apply cream to affected tissue around the PEJ tube and buttocks to groin. If using ointment and cream, mix 50/50 and apply as directed. Given 03/13/2024 9:50 AM CDT 1 Application Given 03/12/2024 8:15 PM CDT 1 Application Given 03/12/2024 1:30 PM CDT 1 Application oxyBUTYnin tablet 5 mg (Ditropan) 5 mg, gastric tube, 3 times daily, First dose on Wed03/02/24 at 0900 Given 03/08/2024 8:29 AM CDT 5 mg Given 03/07/2024 8:37 PM CDT 5 mg Given 03/07/2024 1:25 PM CDT 5 mg PHENobarbital 695 mg in NaCl 0.9% IVPB (LuminaL) 695 mg (rounded from 694 mg = 10 mg/kg ? 69.4 kg Dosing weight), intravenous, at 221 mL/hr, Administer over 15 Minutes, Once, On Wed03/12/24 at 1315, For 1 dose New Bag 03/12/2024 2:01 PM CDT 695 mg 221 mL/hr PHENobarbital 695 mg in NaCl 0.9% IVPB (LuminaL) 695 mg (rounded from 694 mg = 10 mg/kg ? 69.4 kg Dosing weight), intravenous, at 221 mL/hr, Administer over 15 Minutes, Once, On Wed03/13/24 at 1315, For 1 dose New Bag 03/13/2024 1:48 PM CDT 695 mg 221 mL/hr phenylephrine 1 mg/10 mL (100 mcg/mL) injection - ADS Override Pull Starting on Wed03/01/24 at 2132, For 1 dose, Created by cabinet override phenylephrine injection 200 mcg 200 mcg, intravenous, Once, On Wed03/01/24 at 2245, For 1 dose Given 03/01/2024 9:49 PM CDT 200 mcg phytonadione (vitamin K1) 5 mg in NaCl 0.9% IVPB (Aqua-Mephyton) 5 mg, intravenous, at 50.5 mL/hr, Administer over 60 Minutes, Once, On Wed03/13/24 at 0100, For 1 dose, Protect from light. New Bag 03/13/2024 1:59 AM CDT 5 mg 50.5 mL/hr polyethylene glycol powder packet 17 g (Miralax) 17 g, gastric tube, Daily, First dose on Wed03/01/24 at 1415, Dissolve in 240 mLs (8 ounces) of water prior to giving. Avoid mixing with starch-based thickened liquids. Given 03/09/2024 9:26 AM CDT 17 g Given 03/08/2024 8:29 AM CDT 17 g Given 03/07/2024 8:11 AM CDT 17 g polyethylene glycol powder packet 17 g (Miralax) 17 g, gastric tube, 2 times daily, First dose (after last modification) on [place] 03/09/24 at 2100, Dissolve in 240 mLs (8 ounces) of water prior to giving. Avoid mixing with starch-based thickened liquids. Given 03/09/2024 8:33 PM CDT 17 g potassium chloride IVPB 20 mEq 20 mEq, intravenous, at 50 mL/hr, Administer over 60 Minutes, Every 1 hour, First dose on Wed03/10/24 at 1900, For 2 doses, Central Line with Telemetry: 20 mEq per bag over 1 hour each. New Bag 03/10/2024 8:22 PM CDT 20 mEq 50 mL/hr New Bag 03/10/2024 7:32 PM CDT 20 mEq 50 mL/hr potassium chloride IVPB 20 mEq 20 mEq, intravenous, at 50 mL/hr, Administer over 60 Minutes, Every 1 hour, First dose on Wed03/13/24 at 0615, For 1 dose, Central Line with Telemetry: 20 mEq per bag over 1 hour each. New Bag 03/13/2024 6:23 AM CDT 20 mEq 50 mL/hr propofoL (Diprivan) 10 mg/mL injection - ADS Override Pull Starting on Wed03/01/24 at 2134, For 1 dose, Created by cabinet override propofol 10 mg/mL infusion (Diprivan) 5-80 mcg/kg/min [...] 3:00 AM CDT 10 mcg/kg/min 4.16 mL/hr propofol 10 mg/mL infusion (Diprivan) 40 mcg/kg/min ? 69.4 kg Dosing weight (16.656 mL/hr, rounded to 16.66 mL/hr), intravenous, Continuous, Starting on Wed03/10/24 at 1800, Type: Do Not Titrate Rate/Dose Verify 03/12/2024 8:00 AM CDT 40 mcg/kg/min 16.66 mL/hr New Bag 03/12/2024 7:46 AM CDT 40 mcg/kg/min 16.66 mL/h r Rate/Dose Verify 03/12/2024 7:00 AM CDT 40 mcg/kg/min 16.6 6 mL/hr propofol 10 mg/mL infusion (Diprivan) 0-40 mcg/kg/min ? 69.4 kg Dosing weight (0-16.656 mL/hr, rounded to 0-16.66 mL/hr), intravenous, Continuous, Starting on Wed03/12/24 at 0845, Ok to bolus from bag/vial 20 mg every 1 our for seizure like activity. , Type: Titrate, Initiate at: 5 mcg/kg/min., Titrate at: 5 mcg/kg/min. every 5 min., Goal: For sedation - refer to titratable arousal order for RASS goal Rate/Dose Change 03/12/2024 6:32 PM CDT 5 mcg/kg/min 2.08 mL/hr Rate/Dose Change 03/12/2024 6:08 PM CDT 10 mcg/kg/min 4.16 mL/hr Rate/Dose Verify 03/12/2024 6:00 PM CDT 15 mcg/kg/min 6.25 mL/hr rocuronium (Zemuron) 10 mg/mL injection - ADS Override Pull Starting on Wed03/01/24 at 2132, For 1 dose, Created by cabinet override rocuronium injection 50 mg (Zemuron) 50 mg, intravenous, Once, On Wed03/01/24 at 2245, For 1 dose Given 03/01/2024 9:49 PM CDT 50 mg rufinamide tablet 200 mg (BANZEL) 200 mg, gastric tube, Every morning, First dose on Wed02/29/24 at 0900 Given 03/09/2024 8:26 AM CDT 200 mg Given 03/08/2024 8:29 AM CDT 200 mg Given 03/07/2024 8:12 AM CDT 200 mg rufinamide tablet 400 mg (BANZEL) 400 mg, gastric tube, Daily at bedtime, First dose on Wed02/28/24 at 2100 Given 03/09/2024 8:33 PM CDT 400 mg Given 03/08/2024 8:10 PM CDT 400 mg Given 03/07/2024 8:37 PM CDT 400 mg sennosides 8.8 mg/5 mL syrup 17.6 mg (Senna) 17.6 mg (10 mL), small bowel tube, 2 times daily, First dose on Wed03/08/24 at 2100 Given 03/09/2024 8:31 AM CDT 17. 6 mg Given 03/08/2024 8:26 PM CDT 17.6 mg sennosides 8.8 mg/5 mL syrup 26.4 mg (Senna) 26.4 mg (15 mL), small bowel tube, 2 times daily, First dose (after last modification) on Wed03/09/24 at 2100 Given 03/09/2024 8:35 PM CDT 26.4 mg sennosides-docusate sodium 8.6-50 mg per tablet 1 tablet (Senokot-S) 1 tablet, gastric tube, 2 times daily, First dose on Wed03/01/24 at 2100 Given 03/07/2024 8:37 PM CDT 1 tablet Given 03/07/2024 8:11 AM CDT 1 tablet Given 03/06/2024 8:17 PM CDT 1 tablet sennosides-docusate sodium 8.6-50 mg per tablet 2 tablet (Senokot-S) 2 tablet, gastric tube, 2 times daily, First dose (after last modification) on Wed03/08/24 at 0900 Given 03/08/2024 8:29 AM CDT 2 tablets sodium chloride (PF) 0.9 % injection 1-100 mL 1-100 mL, intravenous, Once, On Wed02/29/24 at 1230, For 1 dose, Imaging Protocol Orders, Dose per Radiant Medication Guidelines Given 02/29/2024 12:17 PM CDT 50 mL sodium chloride (PF) 0.9 % injection 1-100 mL 1-100 mL, intravenous, Once, On Wed03/07/24 at 1500, For 1 dose, Imaging Protocol Orders, Dose per Radiant Medication Guidelines Given 03/07/2024 2:41 PM CDT 48 mL sodium chloride (PF) 0.9 % injection 1-100 mL 1-100 mL, intravenous, Once, On Wed03/10/24 at 1015, For 1 dose, Imaging Protocol Orders, Dose per Radiant Medication Guidelines Given 03/10/2024 10:04 AM CDT 50 mL sodium chloride 0.9 % injection 10-30 mL 10-30 mL, intravenous, Every 7 days, First dose on Wed03/03/24 at 0900, Peripherally Inserted Central Catheter (PICC) Valved: When no infusion to maintain patency flush 10 mL per lumen. Given 03/10/2024 8:00 AM CDT 10 m L Given 03/03/2024 8:05 AM CDT 10 mL sodium phosphates enema 1 enema (Fleet) 1 enema, rectal, Daily PRN, constipation, Starting on Wed03/07/24 at 1254 Given 03/08/2024 1:14 PM CDT 1 enema sulfamethoxazole-trimethoprim suspension 240 mg of trimethoprim 240 mg of trimethoprim (rounded from 240.1 mg of trimethoprim = 3.5 mg/kg of trimethoprim ? 68.6 kg), gastric tube, Every 8 hours, First dose on Wed03/03/24 at 1545, For 23 doses, Drug Monitoring Program: Pharmacist to adjust medication dosing based on indication and drug clearance factors., Indications: Respiratory tract infection, healthcare associated Given 03/09/2024 11:04 PM CDT 240 mg of trimethoprim Given 03/09/2024 5:03 PM CDT 240 mg of trimethoprim Given 03/09/2024 8:16 AM CDT 240 mg of trimethoprim vancomycin in NaCl 0.9% IVPB 1,250 mg [...] 10:17 AM CDT 1,250 mg 167 mL/hr vancomycin in NaCl 0.9% IVPB 1,500 mg 1,500 mg (rounded from 1,414 mg = 20 mg/kg ? 70.7 kg), intravenous, at 167 mL/hr, Administer over 90 Minutes, Once, On Wed03/13/24 at 0930, For 1 dose, Drug Monitoring Program: Pharmacist to adjust medication dosing based on indication and drug clearance factors., Indications: Respiratory tract infection, healthcare associated New Bag 03/13/2024 10:59 AM CDT 1,500 mg 167 mL/hr vasopressin 20 unit/100 mL (0.2 unit/mL) in D5W 100 mL infusion (Pitressin) 0.04 Units/min (12 mL/hr), intravenous, Continuous, Starting on Wed03/10/24 at 1845, 20 units in 100 mL Rate/Dose Verify 03/11/2024 12:00 PM CDT 0.04 Units/min 12 mL/hr Rate/Dose Verify 03/11/2024 11:00 AM CDT 0.04 Units/min 12 mL/hr Rate/Dose Verify 03/11/2024 10:00 AM CDT 0.04 Units/min 12 mL/hr documented in [...] 1323 (New Bag - Provider: Megan Lin R.N.) acetic acid 0.25 % irrigation solution [...] hours. 2011 (Given - Provider: Jerzy Frost RMayNMay) 0900 (Due)2100 (Due) caspofungin 50 mg in [...] 2 hours after application. Discontinue after extubation. 0852 (Given - Provider: Megan Lin R.N.)2014 (Given - Provider: Zayda Travis R.N.) 918 (Given - Provider: Savannah Pelayo R.N.)2011 (Given - Provider: Jerzy Frost RMayNMay) 0900 (Due)2100 (Due) fat emulsion ykb-oqy-hjdke & fish oil infusion 50 g (SMOFlipid) [...] RMayN.)2100 (Rate/Dose Verify - Provider: Jerzy Frost R.N.)2200 [...] mg or greater: IVPB at 4 mg/minute. 1543 (Given - Provider: Savannah Pelayo R.N.) furosemide injection 40 mg (Lasix) (COMPLETED) 40 mg, intravenous, Once, On Wed03/13/24 at 1945, For 1 dose, Adults: Doses less than 120 mg: IV push over 20 mg/minute. Doses 120 mg or greater: IVPB at 4 mg/minute. Peds/Neonates: Doses less than 120 mg over 0.5 mg/kg/minute. Doses 120 mg or greater: IVPB at 4 mg/minute. 1936 (Given - Provider: Jerzy Frost R.N.) heparin (porcine) injection 5,000 Units 5,000 Units, subcutaneous, Every 8 hours scheduled, First dose on [place] 03/12/24 at 0600 0505 (Given - Provider: Zayda Travis R.N.)1348 (Given - Provider: Megan Lin R.N.)2121 (Given - Provider: Zayda Travis R.N.) 0525 (Given - Provider: Zayda Travis R.N.)1401 (Given - Provider: Savannah Pelyao R.N.)2103 (Given - Provider: Jerzy Frost R.N.) 0600 [...] hours, First dose (after last modification) on [facility] 03/11/24 at 1900 0619 (Given - Provider: Zayda Travis R.N.)1818 (Given - Provider: Megan Lin R.N.) 0601 (Given - Provider: Zayda Travis R.N.)1834 (Given - Provider: Savannah Pelayo R.N.) 0700 (Due)1900 (Due) Lactated Ringer's bolus 1,000 mL (COMPLETED) 1,000 mL, intravenous, at 1,000 mL/hr, Administer over 1 Hours, Once, On 03/12/24 at 0130, For 1 dose 0109 (New Bag - Provider: Nico OliviaNMay) levETIRAcetam 2,000 mg in NaCl 0.9% IVPB (Keppra) 2,000 mg, intravenous, at 210 mL/hr, Administer over 20 Minutes, Every 12 hours, First dose (after last reorder) on 03/12/24 at 1045, Do NOT refrigerate. 1044 (New Bag - Provider: Megan Lin R.N.)2149 (New Bag - Provider: Zayda Travis R.N.) 1016 (New Bag - Provider: Savannah Pelayo R.N.)2205 (New Bag - Provider: Jerzy Frost RJuli) 1045 (Due)2245 (Due) LORazepam injection 2 mg [...] Pelayo R.N.)1543 (Given - Provider: Savannah Pelayo RJuli)2019 (Given - Provider: Jerzy Frost R.N.) 0217 (Given - Provider: Jerzy Frost RMayN.)0900 (Due)1500 (Due)2100 (Due) LORazepam injection 2 mg (Ativan) (COMPLETED) 2 mg, intravenous, Once, On 03/12/24 at 2345, For 1 dose, Shortage on [...] R.N.)1250 (New Bag - Provider: Savannah Pelayo R.N.)1936 (New Bag - Provider: Jerzy Frost R.N.) [...] as directed. 0811 (Given - Provider: Megan iLn R.N.)1330 (Given - Provider: Megan Lin R.N.)2014 [...] mL/hr, Administer over 15 Minutes, Once, On 03/12/24 at 1315, For 1 dose 1401 (New Bag - Provider: Megan Lin RJuli) PHENobarbital 695 mg in NaCl 0.9% IVPB (LuminaL) (COMPLETED) 695 mg (rounded from 694 mg = 10 mg/kg ? 69.4 kg Dosing weight), intravenous, at 221 mL/hr, Administer over 15 Minutes, Once, On Wed03/13/24 at 1315, For 1 dose 1348 (New Bag - Provider: Savannah Pelayo RMayNMay) PHENobarbital injection 50 mg (LuminaL)(Linked Group 2) 50 mg, intravenous, 3 times daily, First dose on 03/12/24 at 2100 211 (Given - Provider: Zayad Travis R.N.) 0827 (Given - Provider: Savannah [...] factors., Indications: Respiratory tract infection, healthcare associated 185 (New Bag - Provider: Savannah Pelayo R.N.) [...] Megan Lin R.N.)1100 (Rate/Dose Verify - Provider: Nico GodwinN.)1200 (Rate/Dose Verify - [...] Zayda Travis R.N.)2200 (Rate/Dose Verify - Provider: Fawad Chester.N.)2300 (Rate/Dose Verify - Provider: Fawad Chester.N.) 0000 (Rate/Dose Verify - Provider: Fawad Chester.N.)0100 (Rate/Dose Verify - Provider: Zayda Travis R.N.)0200 (Rate/Dose Verify - Provider: Zayda Travis R.N.)0300 (Rate/Dose Verify - Provider: Zayda Travis R.N.)0400 (Rate/Dose Verify - Provider: Fawad Chester.N.)0500 (Rate/Dose Verify - Provider: Zayda Travis R.N.)0600 (Rate/Dose Verify - Provider: Zayda Travis R.N.)0700 (Rate/Dose Verify - Provider: Fawad Chester.N.)0720 (Handoff - Provider: Fawad Chester.N.)0800 (Rate/Dose Verify - Provider: Savannah Pelayo RMayN.)0900 [...] RMayN.)2000 (Rate/Dose Verify - Provider: Jerzy Frost RMayN.)203 (Stopped - Provider: Nico BaxterNMay) adult/child > 40 kg central parenteral nutrition (CPN) infusion intravenous, at 45.8 mL/hr, Administer over 24 Hours, Continuous PN, Starting on Wed03/13/24 at 2100, For 24 hours, Use a 0.22 micron filter., Indication: Ileus 2036 (New Bag - Provider: Jerzy Frost RMayNMay)2100 (Rate/Dose Verify - Provider: Jerzy Frost RMayN.)2200 (Rate/Dose Verify - Provider: Jerzy Frost RMayN.)2300 (Rate/Dose Verify - Provider: Nico BaxterN.) 0000 (Rate/Dose Verify - Provider: Fawad Baxter.N.)0100 (Rate/Dose Verify - Provider: Jerzy Frost R.N.)0200 (Rate/Dose Verify - Provider: Jerzy Frost RMayN.)0300 (Rate/Dose Verify - Provider: Jerzy Frost RMayN.) fentaNYL 10 mcg/mL in NaCl 0.9% 250 mL infusion (Sublimaze) (CANCELED) 25 mcg/hr (2.5 mL/hr), intravenous, Continuous, Starting on Wed03/10/24 at 1815, 2,500 mcg in 250 mL bag, Type: Do Not Titrate 0000 (Rate/Dose Verify - Provider: Nico ChesterN.)0100 (Rate/Dose Verify - Provider: Zayda Travis R.N.)0200 (Rate/Dose Verify - Provider: Zayda Travis R.N.)0300 (Rate/Dose Verify - Provider: Zayda Travis R.N.)0400 (Rate/Dose Verify - Provider: Zayda Travis R.N.)0500 (Rate/Dose Verify - Provider: Zayda Travis R.N.)0600 (Rate/Dose Verify - Provider: Zayda Travis R.N.)0700 (Rate/Dose Verify - Provider: Megan Lin R.N.)0721 (Handoff - Provider: Nico ChesterN.)0800 (Rate/Dose Verify - Provider: Megan Lin R.N.)0900 [...] Zayda Travis, R.N.)0400 (Rate/Dose Verify - Provider: Zadya Travis, R.N.)0500 (Rate/Dose Verify - Provider: Zayda Travis, R.N.)0600 (Rate/Dose Verify - Provider: Zayda Travis, [...] R.N.)2000 (Rate/Dose Verify - Provider: Jerzy Frost R.N.)2100 (Rate/Dose Verify - Provider: Jerzy Frost R.N.)2200 (Rate/Dose Verify - Provider: Jerzy Frost R.N.)2300 (Rate/Dose Verify - Provider: Jerzy Frost R.N.)2334 (Stopped - Provider: Jerzy Frost R.N.) ketamine 2 mg/mL in NaCl 0.9 % [...] R.N.)0700 (Rate/Dose Verify - Provider: Megan Lin R.N.)0723 (Handoff - Provider: Zayda Travis R.N.)0800 (Rate/Dose Verify - Provider: Meagn Lin R.N.)0845 (Rate/Dose Change - Provider: Megan Lin R.N.)0900 (Rate/Dose Verify - Provider: Megan Lin R.N.)0948 (Canceled Entry - Provider: Megan Lin R.N.)1000 (Rate/Dose Verify - Provider: Megan Lin R.N.)1003 (Rate/Dose Change - Provider: Megan Lin R.N.)1018 (Rate/Dose Change - Provider: Megan Lin RMayN.)1100 (Rate/Dose Verify - Provider: Fawad Godwin.N.)1200 (Rate/Dose Verify - Provider: Fawad Godwin.N.)1300 (Rate/Dose Verify - Provider: Fawad Godwin.N.)1400 (Rate/Dose Verify - Provider: Fawad Godwin.N.)1500 (Rate/Dose Verify - Provider: Fawad Godwin.N.)1600 (Rate/Dose Verify - Provider: Megan Lin R.N.)1623 (Rate/Dose Change - Provider: Megan Lin R.N.)1642 (Rate/Dose Change - Provider: Nico GodwinN.)1657 (Rate/Dose Change - Provider: Megan Lin R.N.)1700 (Rate/Dose Verify - Provider: Fawad Godwin.N.)1723 (Rate/Dose Change - Provider: Nico GodwinN.)1744 (Rate/Dose Change - Provider: Megan Lin R.N.)1800 (Rate/Dose Verify - Provider: Fawad Godwin.N.)1802 (Rate/Dose Change - Provider: Nico GodwinN.)1833 (Rate/Dose Change - Provider: Megan Lin RMayN.)1900 (New Bag - Provider: Nico GodwinNMay)2000 (Rate/Dose Verify - Provider: Zayda Travis R.N.)2005 (Stopped - Provider: Zayda Travis R.N.) Lactated Ringer's (CANCELED) 20 mL/hr, intravenous, Continuous, Starting on Wed03/10/24 at 2345 0000 (Rate/Dose Verify - Provider: Zayda Travis R.N.)0100 (Rate/Dose Verify - Provider: Zayda Travis R.N.)0108 (Stopped - Provider: Iron Cai R.N.)0215 (Rate/Dose Change - Provider: Zayda Travis R.N.)0300 (Rate/Dose Verify - Provider: Zayda S Thaddeus, R.N.)0400 (Rate/Dose Verify - Provider: Zayda Travis R.N.)0500 (Rate/Dose Verify - Provider: Zayda Travis R.N.)0600 (Rate/Dose Verify - Provider: Zayda Travis R.N.)0616 (New Bag - Provider: Fawad Chester.N.)0700 (Rate/Dose Verify - Provider: Megan Lin RMayN.)0722 (Handoff - Provider: Fawad Chester.N.)0800 (Rate/Dose Verify - Provider: Fawad Godwin.N.)0900 (Rate/Dose Verify - Provider: Fawad Godwin.N.)1000 (Rate/Dose Verify - Provider: Fawad Godwin.N.)1100 (Rate/Dose Verify - Provider: Fawad Godwin.N.)1200 (Rate/Dose Verify - Provider: Fawad Godwin.N.)1300 (Rate/Dose Verify - Provider: Nico GodiwnN.)1400 (Rate/Dose Verify - Provider: Fawad Godwin.N.)1500 (Rate/Dose [...] Provider: Nico ChesterN.)0300 (Rate/Dose Verify - Provider: Zayda Travis R.N.)0400 (Rate/Dose Verify - Provider: Zayda Travis R.N.)0500 (Rate/Dose Verify - Provider: Zayda Travis R.N.)0600 (Rate/Dose Verify - Provider: Zayda Travis R.N.)0700 (Rate/Dose Verify - Provider: Zayda Travis R.N.)0721 (Handoff - Provider: Nico ChesterN.)0800 (Rate/Dose Verify - Provider: Savannah Pelayo RMayN.)0900 (Rate/Dose Verify - Provider: Savannah Pelayo RMayN.)1000 (Rate/Dose Verify - Provider: Savannah Pelayo RMayN.)1100 (Rate/Dose Verify - Provider: Savannah Pelayo RMayN.)1200 (Rate/Dose Verify - Provider: Savannah Pelayo R.N.)1246 (New Bag - Provider: Savannah Pelayo R.N.)1400 [...] Travis R.N.)0021 (Rate/Dose Change - Provider: Zayda Travis, R.N.)0029 (Rate/Dose Change - Provider: Zayda Travis, R.N.)0100 (Rate/Dose Verify - Provider: Zayda Travis, R.N.)0110 (Rate/Dose Change - Provider: Fawad Olivia.N.)0200 (Rate/Dose Verify - Provider: Zayda Travis, R.N.)0214 (Rate/Dose Change - Provider: Zayda [...] Travis, R.N.)0600 (Rate/Dose Verify - Provider: Zayda Travis, R.N.)0621 (Rate/Dose Change - Provider: Zayda Travis, R.N.)0700 (Rate/Dose Verify - Provider: Megan Lin R.N.)0722 (Handoff - Provider: Zayda S Thaddeus, R.N.)0800 (Rate/Dose Verify - Provider: Megan Lin R.N.)0803 (Rate/Dose Change - Provider: Megan Lin R.N.)0846 (New Bag - Provider: Fawad Godwin.N.)0900 (Rate/Dose Verify - Provider: Megan Lin R.N.)1000 [...] Provider: Megan Lin R.N.)1818 (Stopped - Provider: Megan Lin R.N.) 0532 (New Bag - Provider: Zayda Travis R.N.)0551 (Rate/Dose Change - Provider: Nico ChesterN.)0600 (Rate/Dose Verify - Provider: Fawad Chester.N.)0608 (Rate/Dose Change - Provider: Nico ChesterN.)0651 (Rate/Dose Change - Provider: Fawad Chester.N.)0700 (Rate/Dose Verify - Provider: Fawad Chester.N.)0704 (Rate/Dose Change - Provider: Nico ChesterN.)0721 (Handoff - Provider: Nico ChesterN.)0800 (Rate/Dose Verify - Provider: Savannah Pelayo R.N.)0900 (Rate/Dose Verify - Provider: Savannah Pelayo R.N.)0950 (Rate/Dose Change - Provider: Savannah Pelayo R.N.)1000 (Rate/Dose Change - Provider: Savannah Pelayo R.N.)1015 (Rate/Dose Change - Provider: Savannah Pelayo R.N.)1020 (Stopped - Provider: Savannah Pelayo R.N.)195 (New Bag - Provider: eJrzy Frost RMayN.)2008 (Rate/Dose Change - Provider: Jerzy Frost R.N.)2010 (Stopped - Provider: Jerzy Frost R.N.)2025 (Restarted - Provider: Jerzy Frost R.N.)2031 (Rate/Dose Change - Provider: Jerzy Frost R.N.)2041 (Stopped - Provider: Jrezy Frost R.N.)204 (Rate/Dose Change - Provider: Jerzy Frost R.N.)2100 (Rate/Dose Verify [...] Zayda Travis R.N.)0101 (Rate/Dose Change - Provider: Nico ChesterN.)0154 (New Bag - Provider: Iron Cai R.N.)0200 (Rate/Dose Verify - Provider: Zayda Travis R.N.)0300 (Rate/Dose Verify - Provider: Fawad Chester.N.)0400 (Rate/Dose Verify - Provider: Fawad Chester.N.)0500 (Rate/Dose Verify - Provider: Nico ChesterN.)0600 (Rate/Dose Verify - Provider: Nico ChesterN.)0700 (Rate/Dose Verify - Provider: Megan Lin R.N.)0722 (Handoff - Provider: Zayda Travis R.N.)0746 (New Bag - Provider: Megan Lin R.N.)0800 (Rate/Dose Verify - Provider: Megan Lin RMayN.)0844 (Stopped - Provider: Nico GodwinNMay) propofol 10 mg/mL infusion (Diprivan) (CANCELED) 0-40 [...] for RASS goal 0844 (Restarted - Provider: Nico GodwinN.)0900 (Rate/Dose Verify - Provider: Nico GodwinN.)0947 (Rate/Dose Change - Provider: Nico GodwinN.)1000 (Rate/Dose Verify - Provider: Fawad Godwin.N.)1014 (Rate/Dose Change - Provider: Fawad Godwin.N.)1018 (Rate/Dose Change - Provider: Fawad Godwin.N.)1100 (Rate/Dose Verify - Provider: Fawad Godwin.N.)1130 (New Bag - Provider: Fawad Godwin.N.)1200 (Rate/Dose Verify - Provider: Fawad Godwin.N.)1300 (Rate/Dose Verify - Provider: Megan Lin R.N.)1400 (Rate/Dose Verify - Provider: Megan Lin R.N.)1500 (Rate/Dose Verify - Provider: Megan Lin R.N.)1559 (New Bag - Provider: Megan Lin R.N.)1600 (Rate/Dose Verify - Provider: Megan Lin R.N.)1622 (Rate/Dose Change - Provider: Fawad Godwin.N.)1653 (Rate/Dose Change - Provider: Megan Lin R.N.)1700 (Rate/Dose Verify - Provider: Megan Lin R.N.)1721 (Rate/Dose Change - Provider: Nico GodwinN.)1743 (Rate/Dose Change - Provider: Nico GodwinN.)1750 (Rate/Dose Change - Provider: Nico GodwinN.)1800 (Rate/Dose Verify - Provider: Nico GodwinN.)1808 (Rate/Dose Change - Provider: Nico GodwinN.)1832 (Rate/Dose Change - Provider: Nico GodwinNMay)1853 (Stopped - Provider: Nico GodwinNMay) vasopressin 20 [...] Megan Lin R.N.)0900 (Rate/Dose Verify - Provider: Nico GodwinN.)1000 (Rate/Dose Verify - Provider: Megan Lin R.N.)1016 (Stopped - Provider: Nico GodwinN.)1033 (Restarted - Provider: Nico GodwinN.)1100 (Rate/Dose Verify - Provider: Nico GodwinN.)1126 (Stopped - Provider: Megan Lin R.N.)1143 (Restarted - Provider: Nico GodwinN.)1200 (Rate/Dose Verify - Provider: Nico GodwinNMay)1233 (Stopped - Provider: Megan Lin R.N.)1258 (Restarted - Provider: Nico GodwinNMay)1300 (Rate/Dose Verify - Provider: Nico GodwinNMay)1345 (Stopped - Provider: Nico GodwinNMay) 0943 (Restarted - Provider: Nico McgheeNMay)1000 (Rate/Dose Verify - Provider: Savannah Pelayo RMayNMay)1054 (New Bag - Provider: Savannah Pelayo R.N.)1100 (Rate/Dose Verify - Provider: Savannah Pelayo RMayNMay)1200 (Rate/Dose Verify - Provider: Nico McgheeNMay)1400 (Rate/Dose Verify - Provider: Nico McgheeNMay)1500 (Rate/Dose Verify - Provider: Savannah Pelayo RMayNMay)1600 (Rate/Dose Verify - Provider: Savannah Pelayo RMayNMay)1700 (Rate/Dose Verify - Provider: Savannah Pelayo RMayNMay)1800 (Rate/Dose Verify - Provider: Savannah Pelayo RMayNMay)1841 (New Bag - Provider: Savannah Pelayo RMayNMay)1923 (Stopped - Provider: Jerzy Frost RMayNMay) PRN Medication Order 03/12/2024 03/13/2024 03/14/2024 acetaminophen suppository 650 mg (TylenoL) 650 mg, rectal, Every 6 hours PRN, mild pain or score 1-3 of 10, fever, headaches, Starting on Wed03/12/24 at 1800 0514 (Given - Provider: Zayda Travis RJuli) D10W bolus 250 mL 250 mL (25 g), intravenous, at 1,000 mL/hr, Administer over 15 Minutes, As needed, low blood sugar, For glucose less than 54 mg/dL, Starting on 02/29/24 at 1803, If intravenous access is available, [...] options. 0142 (Given - Provider: Jerzy Frost RMyaN.) ipratropium-albuteroL 0.5-2.5 mg/3 mL nebulizer solution 3 mL (DUONEB) 3 mL, nebulization, 4 times daily PRN, wheezing, shortness of breath, Starting on Wed02/28/24 at 1625 propofol bolus from bag 20 mg (Diprivan) 20 mg, intravenous, Every 1 hour PRN, seizure activity, Starting on Wed03/12/24 at 1035 1022 (Bolus from Bag - Provider: Megan Lin R.N.)1255 (Bolus from Bag - Provider: Megan Lin RMayN.) Linked Groups Order Group 1: caspofungin 70 [...] mL/hr, Administer over 15 Minutes, Once, On 03/12/24 at 1315, For 1 dose Followed by PHENobarbital injection 50 mg (LuminaL)Jump to med 50 mg, intravenous, 3 times daily, First dose on 03/12/24 at 2100 documented in this encounter Additional Health Concerns Infection Onset Date Last Indicated Resolved Time COVID19 Pending 02/29/2024 02/29/2024 02/29/2024 1 1:04 AM CDT documented as of this encounter Care Teams Sheet Metal Layout Mechanic Relationship Specialty Start Date End Date Elsewhere, Pcp PCP - General Family Medicine 06/24/18 documented as of this encounter
--- OUTSIDE RECORDS SUMMARY | 2024-03-14 04:18 | XMS_ITS | Encounter Summary ---
Author Organization [facility] Address [address] [place] [id number] Care Team Providers Care Coal Handler Name Role Phone Elsewhere, Pcp Primary Care Provider Unavailabl e Encounter Details Date Type Department Care Team (Late st Contact Info) Description 12/30/2023 Orders Only Department of Nutrition and Diabetes Education in [place], [place] [address] [place] [address] Na Brennan, RDN, LD [address] [place] [id number] Ayaan Gastaut Syndrome (HCC) (Primary Dx); Gastrojejunostomy [...] declined 12/11/2021 How often do you attend latter-day or islam serv ices? Patient declined 12/11/2021 Do you belong to any clubs o r organizations such as latter-day groups, unions, fraternal or athletic groups, or [...] and heating? Not hard at all 12/11/2021 [employer] [facility] - Occupational Stress [...] needed adaptors/extension sets and will fax to [place] once signed by our provider. Reminded mom that the feeding tube will need to be replaced in 3 to 5 months and Say will be due for his yearly home enteral clinic visits this Fall (May/early June). She verbalized understanding. documented in this encounter Plan of Treatment Not on file documented as of this encounter Visit Diagnoses Diagnosis [place] Gastaut Syndrome (HCC)- Primary Gastrojejunostomy Percutaneous Status Post Dietary Counseling And Surveillance For Enteral Nutrition documented in this encounter Care Teams Coal Handler Relationship Specialty Start Date End Date Elsewhere, Pcp PCP - General Family Medicine 06/24/18 documented as of this encounter
--- OUTSIDE RECORDS SUMMARY | 2024-03-14 04:18 | XMS_ITS | Encounter Summary ---
Author Organization [facility] Address [address] [place] [address] Care Team Providers Care Project Management Analyst Name Role Phone Elsewhere, Pcp Primary Care Provider Unavailabl e Encounter Details Date Type Department Care Team (Latest Contact Info) Description 02/28/2024 Intake [facility] Social History Tobacco Use Types Packs/Day Years Used Date Smoking Tobacco: Never Smokeless Tobacco: Never Alcohol Use Standard Drinks/Week Comments Never 0 (1 standard drink = 0.6 oz pur e alcohol) [facility] Utilities Answer Date Recorded In the past 12 months has e [employer], gas, oil, or water [employer] threatened to shut off services in your [...] How often do you attend baptism or mosque serv ices? Patient declined 12/11/2021 [...] and heating? Not hard at all 12/11/2021 [facility] - Occupational Stress Questionnaire Answer Date Recorded [...] documented as of this encounter Care Teams Project Management Analyst Relationship Specialty Start Date End Date Elsewhere, Pcp PCP - General Family Medicine 06/24/18 documented as of this encounter
--- OUTSIDE RECORDS SUMMARY | 2024-03-14 04:18 | XMS_ITS | Encounter Summary ---
Author Organization [facility] Address [address] [place] [address] Care Team Providers Care Reading Specialist Name Role Phone Elsewhere, Pcp Primary Care Provider Unavailabl e Encounter Details Date Type Department Care Team (Latest Contact Info) Description 02/02/2024 10:40 AM CDT - 02/02/2024 11:59 PM CDT Hospital Encounter Department of Laboratory Medicine in [place], [place] [address] [facility] [place] [phone] Jose Martin Eaton M.D. 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 Patient declined 12/11/2021 Do you belong to any clubs o r organizations such as oriental orthodox groups, unions, fraternal or athletic groups, [...] and heating? 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) LEVETIRACETAM LEVEL, S Routine 02/02/2024 11:03 AM CDT 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) LAMOTRIGINE LEVEL, S Routine 02/02/2024 11:03 AM CDT [place] Gast[place] Syndrome Intractable Without Status Epilepticus (HCC) RETICULOCYTES, B Routine 02/02/2024 11:0 3 AM CDT Medication Therapy Custodial Not Anticoagulant CBC WITH DIFFERENTIAL, B Routine 02/02/2024 11:03 AM CDT Medication Therapy Correctional Therapy Teacher Not Anticoagulant COMPREHENSIVE METABOLIC PANEL, S/P Routine 02/02/2024 11:03 AM CDT Medication Therapy Correctional Therapy Teacher Not Anticoagulant documented in this encounter Results * Lamotrigine Level (02/02/2024 11:03 AM CDT) [facility] Signature Lamotrigine, S 13.9 3.0 - 15.0 mcg/mL 02/03/2024 9:35 AM CDT [facility] Comment: ----ADDITIONAL INFORMATION---- This test was developed and its performance characteristics determined by [facility] in a manner consistent with CLIA requirements. This test has not been cleared or approved by the U.S. Food and Drug Administration. Blood (Blood, Venous) 02/02/2024 11:03 AM CDT 02/03/2024 7:47 AM CDT Jose Martin R White M.D. LAB BLOOD NON ADD-ON [facility] [address] [place], [place] [id number] [facility] [address] [place] [address] [place] [id number] * Hepatic Function Panel (02/02/2024 11:03 AM [...] Jose Martin Eaton M.D. LAB BLOOD ADD-ON [facility] [address] [place] [address], [facility] [place] [facility] [place] [address] [place] [address] * (ABNORMAL) CBC with Differential, Blood (02/02/2024 [...] Jose Martin Eaton M.D. LAB BLOOD ADD-ON [facility] [address] [place] [address], [facility] [address]60 [facility] in [place] [address] [place] [address] * (ABNORMAL) Felbamate (Felbatol) Level (02/02/2024 11:03 AM CDT) Felbamate (Felbatol), S 145.7(H) 30.0 - 80.0 mcg/mL 02/04/2024 3:14 PM CDT [facility] Comment: ----ADDITIONAL INFORMATION---- This test was developed and its performance characteristics determined by [facility] in a manner consistent with CLIA requirements. This test has not been cleared or approved by the U.S. Food and Drug Administration. Blood (Blood, Venous) 02/02/2024 11:03 AM CDT 02/03/2024 7:41 AM CDT Jose Martin Eaton M.D. LAB BLOOD NON ADD-ON Performing Organization Address City/[facility]/ZIP Co de Phone Number [facility] [address] [place] [address] [facility] [address] [place] [address] [place] [address] * (ABNORMAL) Levetiracetam Level (02/02/2024 11:03 AM CDT) Levetiracetam, S 71.9(H) 10.0 - 40.0 mcg/mL 02/03/2024 11:39 AM CDT [facility] Comment: ----ADDITIONAL INFORMATION---- This test was developed and its performance characteristics determined by [facility] in a manner consistent with CLIA requirements. This test has not been cleared or approved by the U.S. Food and Drug Administration. Blood (Blood, Venous) 02/02/2024 11:03 AM CDT 02/03/2024 7:48 AM CDT Jose Martin Eaton M.D. LAB BLOOD NON ADD-ON Performing Organization Address City/[facility]/ZIP Co de Phone Number [facility] [address] [place] [address] [facility] [address] [place] [address] [place] [address] * Rufinamide, S (02/02/2024 11:03 AM CDT) Rufinamide, S 9.0 5.0 - 30.0 mcg/mL 02/03/2024 1:20 PM CDT [facility] Comment: ----ADDITIONAL INFORMATION---- This test was developed and its performance characteristics determined by [facility] in a manner consistent with CLIA requirements. This test has not been cleared or approved by the U.S. Food and Drug Administration. Blood (Blood, Venous) 02/02/2024 11:03 AM CDT 02/03/2024 7:47 AM CDT Jose Martin Eaton M.D. LAB BLOOD NON ADD-ON [facility] [address] [place] [address] [facility] [address] [place] [address] [place] [address] * (ABNORMAL) Comprehensive Metabolic Panel (02/02/2024 11:03 [...] M.D. LAB BLOOD ADD-ON Performing Organization Address City/[facility]/ZIP Co de Phone Number [facility] [address], [place] [address], [facility] in [place] [address], [place] [address] * Reticulocytes (02/02/2024 11:03 AM CDT) Reticulocytes, B 1.76 0.60 - 2.71 % 02/02/2024 3:18 PM CDT [facility] Absolute Reticulocyte 63.7 30.4 - 110.9 x10(9)/L 02/02/2024 3:18 PM CDT [facility] Blood (Blood, Venous) 02/02/2024 11:03 AM CDT 02/02/2024 3:00 PM CDT Jose Martin Eaton M.D. LAB BLOOD ADD-ON Performing Organization Address City/[facility]/ZIP Co de Phone Number [facility] [address] [place] [address], [place] [facility] [address] [place] [address] * (ABNORMAL) Clobazam and Metabolite (02/02/2024 11:03 AM CDT) Clobazam 313.0(H) 30 - 300 ng/mL 02/04/2024 3:01 AM CDT [facility] N-desmethylclobazam >89069(H) 300 - 3000 ng/mL 02/04/2024 3:01 AM CDT [facility] Comment: ----ADDITIONAL INFORMATION---- This test was developed and its performance characteristics determined by [facility] in a manner consistent with CLIA requirements. This test has not been cleared or approved by the U.S. Food and Drug Administration. Blood (Blood, Venous) 02/02/2024 11:03 AM CDT 02/03/2024 2:51 PM CDT Jose Martin Eaton M.D. LAB BLOOD ADD-ON [facility] [place] [address] [place] [address] [facility] [address] 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
--- OUTSIDE RECORDS SUMMARY | 2024-03-14 04:18 | XMS_ITS | Encounter Summary ---
Author Organization [facility] Address [address] [place] [address] Care Team Providers Care Bone Worker Name Role Phone Elsewhere, Pcp Primary Care Provider Unavailabl e Reason for Visit * Outpatient (Routine) - Closed Specialty Diagnoses / Procedures Referred By Valorie copeland Referred To Contact Sleep Medicine Srinath Rodriguez M.D. [address] [place] [phone] Jessy Pisano M.D. [address] [place] [phone] Referral ID Status Reason Start Date Expiration Date Visits Re quested Visits Authorized [id number] Closed 12/27/2023 06/27/2025 1 1 Encounter Details Date Type Department Care Team (Latest Contact Info) Description 01/12/2024 9:30 AM CDT [facility] in [place], [place] [address] [place] [phone] Jessy Pisano M.D. [address] [place] [phone] Snoring (Primary Dx); Hypoxemia; Stroke Cerebrovascular Accident [...] declined 12/11/2021 How often do you attend religion or scientology serv ices? Patient declined 12/11/2021 Do you belong to any clubs o r organizations such as religion groups, unions, fraternal or athletic groups, or [...] and heating? Not hard at all 12/11/2021 [facility] [place] of Occupat ional Health - Occupational Stress [...] somnolence during his stay for which an INSURANCE SALES PROFESSIONAL was called, VBG showed pH 7.27, pCO2 [...] he can do/participate in during the day. [place] Score: 17 (01/11/24 1531 : Patient, Online Services) Prior [place] Score: 24 on 07/08/23 VITAL SIGNS Blood [...] effect for Nick may be hard to juvenile court judge, since it is hard to know how [...] History documented in this encounter Care Teams Bone Worker Relationship Specialty Start Date End Date Elsewhere, Pcp PCP - General Family Medicine 06/24/18 documented as of this encounter
--- OUTSIDE RECORDS SUMMARY | 2024-03-14 04:19 | XMS_ITS | Encounter Summary ---
Author Organization [facility] Address [address] [place] [address] Care Team Providers Care Gasoline Pump Mechanic Name Role Phone Elsewhere, Pcp Primary [...] declined 12/11/2021 How often do you attend restorationist or judaism serv ices? Patient declined 12/11/2021 Do you belong to any clubs o r organizations such as restorationist groups, unions, fraternal or athletic groups, or [...] on filedocumented in this encounter Care Teams Gasoline Pump Mechanic Relationship Specialty Start Date End Date Elsewhere, Pcp PCP - General Family Medicine 06/24/18 documented as of this encounter
--- OUTSIDE RECORDS SUMMARY | 2024-03-14 04:19 | XMS_ITS | Encounter Summary ---
Author Organization [facility] Address [address] [place] [address] Care Team Providers Care Able Bodied Seaman Name Role Phone Elsewhere, Pcp Primary Care Provider Unavailabl e Reason for Referral * Outpatient (Routine) - Authorized Specialty Diagnoses / Procedures Referred By Contac t Referred To Contact Diagnoses Dietary Counseling And Surveillance For Enteral Nutrition Procedures EGD ? Percutaneous Endoscopic Gastrostomy/Jejunostomy Sis Brown APRN, C.N.P., D.N.P. [address] [place] [phone] [facility] Referral ID Status Reason Start Date Expiration Date V isits Requested Visits Authorized [id number] Authorized 12/20/2023 12/19/2024 1 1 * Outpatient (Routine) - Authorized Specialty Diagnoses / Procedures Referred By Contac t Referred To Contact Endocrinology Diagnoses Dietary Counseling And Surveillance For Enteral Nutrition Sis Brown APRN, C.N.P., D.N.P. [address] [place] [phone] [facility] Referral ID Status Reason Start Date Expiration Date V isits Requested Visits Authorized [id number] Authorized 12/20/2023 06/20/2025 1 1 Scheduling Instructions For triage only Encounter Details Date Type Department Care Team ([facility] st Contact Info) Description 12/20/2023 Orders Only Division of Endocrinology in [place], [place] [address] [place] [phone] Anastasia Chaney RMayN. Dietary Counseling And Surveillance [...] declined 12/11/2021 How often do you attend holiness or quaker serv ices? Patient declined 12/11/2021 Do you belong to any clubs o r organizations such as holiness groups, unions, fraternal or athletic groups, or [...] and heating? Not hard at all 12/11/2021 [facility] [place] of Occupat ional Health - Occupational Stress [...] documented as of this encounter Care Teams Able Bodied Seaman Relationship Specialty Start Date End Date Elsewhere, Pcp PCP - General Family Medicine 06/24/18 documented as of this encounter
--- OUTSIDE RECORDS SUMMARY | 2024-03-14 04:19 | XMS_ITS | Encounter Summary ---
Author Organization [facility] Address [address] [place] [address] Care Team Providers Care Biodiesel Technology Manager Name Role Phone Elsewhere, Pcp Primary Care Provider Unavailabl e Encounter Details Date Type Department Care Team (Latest Contact Info) Description 12/29/2023 12:52 PM CDT Anesthesia Event Division of Gastroenterology in [place], [place] [address] [place] [phone] Cruz Edmonds APRN, KRISHAN [address] [place] [phone] Anesthesia Record Procedure Summary Procedure Name Responsible Anesthesiologist Anesthesia Start Time Anesthesia Stop Time EGD ? PERCUTANEOUS ENDOSCOPIC GASTROSTOMY/JEJUNOSTOM Y Cruz Edmonds APRN, OUTREACH WORKER 12/29/23 1252 12/29/23 1315 Events Date Time [...] Mathis, R.NMay 12/30/23 1144 by Tong Gilbert, R.NaMy Peripheral IV Placement Date: 12/12 02/03; Placement [...] How often do you attend gnosticist or confucianism serv ices? Patient declined 12/11/2021 Do you [...] and heating? Not hard at all 12/11/2021 [facility] of Occupat ional Health - Occupational [...] Room / Location: Division of Gastroenterology in [place], [place] Anesthesia Start: 1252 Anesthesia Stop: 131 [...] ENDOSCOPIC GASTROSTOMY/JEJUNOSTOMY Location: Division of Gastroenterology in [place], [place] Pertinent components of the patient's history [...] with patient /legal guardian or through an consumer product advisor. The use of blood products not discussed [...] CDT documented in this encounter Care Teams Biodiesel Technology Manager Relationship Specialty Start Date End Date Elsewhere, Pcp PCP - General Family Medicine 06/24/18 documented as of this encounter
--- OUTSIDE RECORDS SUMMARY | 2024-03-14 04:19 | XMS_ITS | Encounter Summary ---
Author Organization [facility] Address [address] [place] [address] Care Team Providers Care Bookbinder Chief Name Role Phone Elsewhere, Pcp Primary Care Provider Unavailabl e Reason for Visit * Reason Comments Fever J-tube fell out Altered Mental Status Encounter Details Date Type Department Care Team (Latest Contact Info) Description 12/26/2023 4:16 PM CDT - 12/30/2023 12:14 PM CDT Hospital Encounter [facility], [facility], [facility], Sixth Floor [address] [place] [phone] Jamia Lozano M.D. [address] [place] [phone] Andria Shaffer M.B.B.S., M.D. [address] [place] [address] Wes Person M.B.B.S. [address] [place] [phone] Feliciano Alejandre M.D., Ph.D. [address] [place] [phone] Pneumonia (Primary Dx); Sepsis (HCC); Aftercare [...] How often do you attend alevism or orthodox serv ices? Patient declined 12/11/2021 [...] and heating? Not hard at all 12/11/2021 [facility] [place] [facility] - Occupational [...] AM CDT DISCHARGE SUMMARY BRIEF OVERVIEW Hospital: [facility] Discharge Provider: Feliciano Alejandre M.D. Primary Team: T [facility] Medicine 3 Primary Care Providers: Elsewhere, Pcp (General) No address on file Primary Care Provider Phone Number: None Primary Care Provider Fax Number: None Admission Date: 12/26/2023 Discharge Date: 12/30/2023 PRINCIPAL DIAGNOSIS Aspiration Pneumonia Secondary to Procedure SECONDARY DIAGNOSES Principal Problem: Aspiration Pneumonia Secondary to Procedure Active Problems: Leukemia Lymphocytic Acute Remission (HCC) Seizure (HCC) Angie Gastaut Syndrome (HCC) Dysphagia Reflux Esophageal Nephrolithiasis [...] related to tube site or tube call [phone] Wednesday - Wednesday 7;30 am-4:30 pm or after hours, weekends, holidays call [facility] refinery operator vapor recovery unit [phone] ask them to page [phone] and wait for MD to answer. May [...] no other acute intra-abdominal findings. Medicine 6: PROTOTYPE ENGINEER MANAGER was called overnight on 12/26/2023 for increased [...] related to tube site or tube call [phone] Wednesday - Wednesday 7;30 am-4:30 pm or after hours, weekends, holidays call [facility] refinery operator vapor recovery unit [phone] ask themto page [phone] and wait for MD to answer. May need to repeat call if they don't answer they could be busy doing procedure. Intranasal naloxone has been prescribed and sent to your pharmacy. * Patient Instructions* Imelda Judge M.S., [facility] MACH[facility] - 12/30/2023 11:38 AM CDT SPEECH PATHOLOGY DISCHARGE SUMMARY DIAGNOSIS: Moderate oral stage dysphagia, pharyngeal stage [facility] SPEECH PATHOLOGY TREATMENT COURSE: Mr. Hilario was [...] provided on 12/30/2023 by Imelda Judge M.S., CCC-BURRER MACHINE Should you have questions/concerns regarding Speech Pathology services received during this hospitalization please contact: [facility], Department of Neurology, . * Discharge Instr - Diet* Anastasiya Davalos RDN, LD, M.P.H. - 12/30/2023 11:28 AM CDT NUTRITION Date completed: 12/30/2023 Oral diet: Per BURRER MACHINE Feeding tube information: Transgastric Jejunal 22 [place] Who placed the tube: [place] [id number] Date of tube placement: December 29, 2023 [...] 28.8 kg/m?? Estimated Needs: Total Calorie Needs: 8168-6323 calories/day Method to Estimate Energy Needs: kcal/kg [...] to goal rate. VFSS scheduled today with BURRER MACHINE. GI Tubes (Adults) Gastrostomy-jejunostomy;Percutaneous endoscopic 22 Fr [...] movement documented was 12/29; type 6 per boot repairer. Estimated Needs: Calories: 2612-2943 calories/day Method to Estimate Energy Needs: kcal/kg [...] about patient's nutritional care please contact pager [phone] on weekdays 07:30-16:00 or [phone] on weekends/holidays. * Little Johnson M.D. 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 Estimated Needs: Calories: 4843-7101 calories/day Method to Estimate Energy Needs: kcal/kg [...] about patient's nutritional care please contact pager [phone] on weekdays 07:30-16:00 or [phone] on weekends/holidays. * Little Johnson M.D. 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 - 12/29/2023 6:23 AM CDT T [facility] Medicine 3 Progress Note SUBJECTIVE Brief Summary: Say Hilario is a 43 y.o. male admitted on 12/26 for aspiration pneumonia. PROTOTYPE ENGINEER MANAGER'd to ICU for AMS.PMH significant for Angie-Gastaut syndrome, developmental delay (non verbal at baseline), chronic G-tube (placed age 10, converted to GJ tube 2019), recurrent seizures (1-4 seizures daily, on Kepp ra/Lamictal/Clobazam/ felbamate/rufinamide), CHEKO on nocturnal 1 L O2. Interval Events: Patient received 2 mg dilaudid yesterday for pain control, as the patient had increased BP and heart rate. At home he takes [place] (10 mg hydrocodone/acetaminophen). Patient became difficulty to [...] and heart rate. At home he takes [place] (10 mg hydrocodone/acetaminophen). Patient became difficulty to arouse with decreased respiratory rate. He received 5 doses of Narcan before Narco drip was initiated. There was a subsequent improvement in respiratory status with pC02 improved from of 62 to 50. He is planned for GJ tube exchange and video swallow study today. Plan for Today GJ tube exchange Video swallow study, Epilepsy Consult Angie-Gastaut syndrome # Developmental delay (non verbal at [...] Pain management: Tylenol 100 mg q8h PRN [place] 10-325 q6h PRN Baclofen 20 mg 4x [...] Judge M.S., [facility]ACH[facility] - 12/28/2023 3:30 PM CDT BURRER MACHINE attempted to initiate clinical swallow evaluation. Mr. [...] tube exchange. Please page Imelda Judge M.S., CCC-BURRER MACHINE with questions or concerns at [phone] Mon-Fri or Speech Pathology Service Pager: Dysphagia [phone] Sat/Sun. * Breanna Alicea RDN, LD - 12/28/2023 8:58 AM CDT Nutrition Care Plan Follow Up Clinical Nutrition continuing to follow patient requiring nutrition support. ASSESSMENT Tube feeds initiated 12/26; advancing towards goal per protocol. BURRER MACHINE attempted evaluation yesterday but pt was very [...] BM charted during admission Estimated Needs: Calories: 4972-6449 calories/day Method to Estimate Energy Needs: kcal/kg [...] about patient's nutritional care please contact pager [phone] on weekdays 07:30-16:00 or [phone] on weekends/holidays. * Little Johnson M.D. 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. Yesterday, his mom was hoping for a [...] M.D. - 12/28/2023 6:09 AM CDT RST [facility] Medicine 3 Progress Note SUBJECTIVE Brief Summary: Say Hilario is a 43 y.o. male admitted on 12/26 for GJ tube dislodgement, fever, diarrhea, and increased somnolence. PROTOTYPE ENGINEER MANAGER'd to ICU for AMS. PMH significant for Angie-Gastaut syndrome, developmental delay (non verbal at baseline), [...] Miralax and senna Tylenol prn for pain Angie-Gastaut syndrome # Developmental delay (non verbal at [...] Pain management: Tylenol 100 mg q8h PRN [place] 10-325 q6h PRN Baclofen 20 mg 4x [...] PM CDT SUBJECTIVE Patient is in of [address], room [address] HISTORY OF PRESENT ILLNESS Say Hilario is a 43 y.o. male who presents with altered mental status following PEJ tube repositioning in the setting of Angie Gastaut syndrome. The patient was seen and [...] (HCC) #4 Jejunostomy Status Post (HCC) #5 Angie Gastaut Syndrome (HCC) #6 Leukemia Lymphocytic Acute [...] Margin Code: SH3 * Imelda Judge M.S., CCC-BURRER MACHINE - 12/27/2023 11:26 AM CDT BURRER MACHINE received orders to evaluate Mr. Hilario's swallow [...] complete a clinical swallow evaluation. Please page Iemlda Judge M.S., CCC-BURRER MACHINE with questions or concerns at [phone] Mon-Fri or Speech Pathology Service Pager: Dysphagia [phone] Sat/Sun. * Rosanna Joiner Pharm.D., R.Ph. - [...] times a day as needed (seizures). Notes: Jj--[place] mnvsqvchnlgsqha-hrkjthgmf-bivuvtr (MAGIC MOUTHWASH) 1:1:1 More than a month [...] male admitted 12/26/2023.GJ tube dislodgement, fever, diarrhea. PROTOTYPE ENGINEER MANAGER for somnolence PMH: Ayaan-Gastaut syndrome, ALL (age 20 months, s/p chemoradiation), developmental delay (non verbal at baseline), chronic G-tube (placed age 10, converted to GJ tube 2019), lateral medullary stroke (age 12), recurrent seizures (1-4 seizures daily), CHEKO on nocturnal 1 L O2, urosepsis 02/2023 in the setting of UTI with left obstructing ureteral stone s/p ureteral stent placement. Home meds: reviewed by [facility] ASSESSMENT and PLAN: Neuro: mentation back to BL, nonverbal of BL - resumed [employer] felbamate, clobazam, lamotrigine, levetiracetam, epidiolex, rufinamide and [...] ID: Afeb, mild WBC. CAP coverage with TANKER DRIVER and doxy. Noted PCN allergy but appears [...] tube dislodgement, fever, diarrhea, and increased somnolence. PROTOTYPE ENGINEER MANAGER'd to ICU for AMS. PMH significant for Ayaan-Gastaut syndrome, developmental delay (non verbal at baseline), chronic G-tube (placed age 10, converted to GJ tube 2019), recurrent seizures (1-4 seizures daily, on Keppra/Lamictal/Clobazam/felbamate/rufinamide), CHEKO on nocturnal 1 L O2. Edited by: Pedro Pablo Kline M.D. at 12/27/2023 0702 Interval Events: PROTOTYPE ENGINEER MANAGER'd due to Somnolence, appeared to be at [...] increased somnolence with concern for aspiration pneumonia. PROTOTYPE ENGINEER MANAGER'd to ICU for AMS. Summary 12/26: Mr. [...] floor today. PLAN BY SYSTEMS: NEUROLOGICAL: # Angie-Gastaut syndrome # Developmental delay (non verbal at [...] Pain management: Tylenol 650 mg q6h PRN [place] 10-325 q6h PRN Baclofen 20 mg 4x [...] See ID for ABX, concern for aspiration/CAP. BURRER MACHINE consult for concern of aspiration. Sleep medicine [...] with GI. Recommended placing inpatient order and accounts payable technician will look at availability. 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 Patient on a 2L [...] at baseline and at time of the PROTOTYPE ENGINEER MANAGER the snoring and breathing pattern were at [...] presented to the emergency department. ED Course: [place] [facility] Vitals: Afebrile, HR 90-100s, BP [...] emergency department, able to replace G J-tube. PROTOTYPE ENGINEER MANAGER was called for increased somnolence. On arrival, [...] mg (CLARITIN) 10 mg, oral, Daily Ordered jwdnkifliyiv-uofq-WA-Ca-minerals 400 mcg (folic acid) tablet 1 tablet [...] Syndrome 02/17/2010 Camphor Other (see comments) 12/20/2010 Mjabkmb-ktnnubroez-ldmlxiq Other (see comments) 12/01/2020 Cefaclor Other (see comments) 02/17/2010 Euc eya-elmt-cks,rosem oils-pt Rash 05/14/2022 Levofloxacin Rash 05/14/2022 Petrolatum [...] with a past medical history significant for Angie-Gastaut syndrome, ALL (age 20 months, s/p chemoradiation), [...] setting of his vomiting episode. He was PROTOTYPE ENGINEER MANAGER'd to the MICU for concerns of increased [...] neurologic status. PLAN BY SYSTEMS: NEURO: # Angie-Gastaut syndrome # Developmental delay (non verbal at [...] Tylenol prn for fevers and pain. Home [place] 10-325 Q6H PRN, Baclofen (20 mg fourtimes [...] likely related to a drug reaction. - BURRER MACHINE consult - Will email sleep physician Dr. Vsaquez to inquire about doing sleep study inpatient [...] If any questions arise, please page the [facility] 3 service pagerat [phone]. Adia Samuel M.D. PGY-2 #[id number] * Wes Person M.B.BMayS. - 12/27/2023 12:51 [...] history is complex with a background of Angie-Gastaut syndrome, developmental delay, ALL in his early childhood education worker treated with chemoradiation, chronic G-tube placement (placed [...] of apneas noted at bedside andsomnolence so PROTOTYPE ENGINEER MANAGER was called. He was brought to the [...] Grier M.D. - 12/27/2023 12:07 AM CDT [facility] 6 ([facility]) Admission Note SUBJECTIVE 43 year-old male with a history of Angie-Gastaut syndrome; recurrent aspiration pneumonia; suspected sleep apnoea, and other co-morbidities, who is presenting with recurrent pneumonia and significant PCO2 retention causing acidaemia. CHIEF COMPLAINT / REASON FOR VISIT Fever J-Tube falling out HISTORY OF PRESENT ILLNESS Mr. Say Hilario is a 43 year-old male with a history of Angie-Gastaut syndrome; recurrent seizure activity with intermittent generalized [...] and other co-morbidities.. He presented to the [facility] ED with 1-day complaint of subjective [...] mg) was ordered to the bedside, An PROTOTYPE ENGINEER MANAGER was activated, because he did not appear [...] stayawake or take adequate depths of breaths.The PROTOTYPE ENGINEER MANAGER members also attempted to wake him up [...] (three) times a day as needed (seizures). djmsrbhyejyvdir-dwandnedt-rfdxsrt (MAGIC MOUTHWASH) 1:1:1, Swish and spit 15 [...] the disruption in administration. #7 History of Angie-Gastaut syndrome #8 Recurrent seizure activity with intermittent [...] Disposition: Home with Home Health Discussed with PROTOTYPE ENGINEER MANAGER Team I personally spent a total of 75 min + 60 minutes of PROTOTYPE ENGINEER MANAGER time minutes providing and coordinating care today. [...] Judge M.S., [facility] - 12/30/2023 9:15 AM CDT Images from the original note were not included. Speech Pathology Dysphagia Videofluoroscopic Swallow Study (VFSS) Outpatient Session Type: Evaluation Length of session: 30 minutes SUBJECTIVE Referred By: RST [facility] Medicine 3 Reason for Consult: Dysphagia History: Mr. Hilario was seen for a clinical swallow evaluation yesterday and this VFSS was arranged for today. Please see yesterday's BURRER MACHINE consult note for history. Pain Patient does [...] care to reduce oral bacteria as able BURRER MACHINE will follow while hospitalized Discharge Location: Home BURRER MACHINE Ongoing Services: Ongoing formal Speech Pathology services Duration of Treatment: until goals are met * Erika Scruggs CCC-BURRER MACHINE - 12/29/2023 10:35 AM CDT Speech Language Pathology Dysphagia Evaluation- Acute Care Session Type: Evaluation Length of session: 10 minutes Time of Dysphagia Session: 1035 SUBJECTIVE Referred By: RST [facility] Medicine 3 History: Mr. Hilario is a 43 y.o. male who was admitted to [facility] on 12/26/2023 due to fever andJ-tube becoming dislodged. There is concern for aspiration PNA. His history is significant for Angie-Gastaut syndrome, developmental delay, prior L medullary stroke [...] afternoon. This is now scheduled for 12/30/23 [id number] with further recommendations to follow. His parents expressed excellent understanding. Goals: Dysphagia Auger Machine Offbearer Goal Dysphagia Auger Machine Offbearer Goal: Patient will tolerate least restrictive diet without overt s/s suggestiveof aspiration Dysphagia Longterm Goal Progress Toward Goal: Progress toward goal [...] RECOMMENDATIONS: Video swallow study 4/118/24 at 0915 BURRER MACHINE will follow. Please page [phone] M-F or [phone] on weekends/holidays with questions or concerns. Discharge Location: Home BURRER MACHINE Ongoing Services: Ongoing formal Speech Pathology services Duration of Treatment: until goals are met Speech Pathology Service Pager: Dysphagia [phone] Speech Pathology Service Pager: Communication [phone] [place] Rothman, CCC-BURRER MACHINE, CBIS * Pebbles Shaikh, Judy.S.W., M.S.W. - [...] Selected Services Address Phone Fax Patient Preferred [facility] [address] [place], [place] [address] [phone] -- Contact: Jesica NURSING: - Complete documentation in the Discharge Navigator including Nursing Report Info and Facility/NextLevel of Care Info - Call report and arrange for the patient???s first visit. - Send required packet of dismissal information with patient, including After Visit Summary and advance directive. PRIMARY SERVICE: - Please provide a non-[facility] order for resumption of previous services [...] Selected Services Address Phone Fax Patient Preferred [facility] Durable Medical Equipment [address] [facility] [phone] -- Contact: Intake Respiratory Equipment : [...] scheduling of his outpatient polysomnography test. #1 Angie-Gastaut syndrome with developmental delay (nonverbal at baseline) [...] setting of his vomiting episode. He was PROTOTYPE ENGINEER MANAGER'd to the MICU for concerns of increased somnolence. Past medical history includes but is not limited to: Angie-Gastaut syndrome, ALL (age 20 months, s/p chemoradiation), [...] changes noted. Estimated Needs: Total Calorie Needs: 0657-7896 calories/day Method to Estimate Energy Needs: kcal/kg (15-20 kcal/kg) Weight Used for Equation Calculations: 67.8 kg Total Protein Needs: 81 - 102 grams/day (Method to Estimate Protein Needs (g/kg): 1.2 - 1.5 gm/kg) Weight Used to Calculate Protein Needs (Kg): 67.8 kg Nutrition Diagnosis: Inadequate oral intake related to dysphagia as evidenced by prison dependence on supplemental enteral feeds to meet [...] about patient's nutritional care please contact pager [phone] on weekdays 07:30-16:00 or [phone] on weekends/holidays. Addendum At 1412: RDN was [...] Duenas M.D. - 12/26/2023 11:42 PM CDT PROTOTYPE ENGINEER MANAGER EVALUATION REASON FOR PROTOTYPE ENGINEER MANAGER: Increased somnolence SUBJECTIVE SUMMARY OF SITUATION Say [...] in the ED approximately 5 hours prior. PROTOTYPE ENGINEER MANAGER was called in this setting. On arrival by the PROTOTYPE ENGINEER MANAGER team, the patient is somnolent as above. [...] U Negative Ketone, POCT, U Negative Specific [place], POCT, U 1.015 Blood, POCT, U Negative [...] Influenza A/B, SARS CoV-2, PCR, Rapid Symptomatic [[id number]] Collected: 12/26/23 1950 Lab Status: Final result [...] at the following links: For Healthcare Providers: https://www.fda.gov/media/041666/download For Patients: https://www.fda.gov/media/459472/download Infl A/B, SARS CoV-2, PCR, Source Swab, Nasopharynx Bacterial Culture, Aerobic + Susceptibility, Urine [[id number]] Collected: 12/26/23 193 Lab Status: In process Specimen: Urine, Midstream Updated: 12/26/232035 Bacteria / Christopher Culture, Blood #2 [[id number]] Collected: 12/26/23 180 Lab Status: In process Specimen: Blood, Peripheral Draw Updated: 12/26/231816 Narrative: Received Bactec aerobic and Bactec anaerobic bottles Specimen Information: Specimen ID: [id number] Specimen Source: Blood, Peripheral Draw Specimen Comment: Specimen Source Site: Blood Specimen Collection Start Date: 12/26/2023 6:06 PM Specimen Received Date: 12/26/2023 6:17 PM Specimen ID: [id number] Specimen Source: Blood, Peripheral Draw Specimen Comment: Specimen Source Site: Blood Specimen Collection Start Date: 12/26/2023 6:06 PM Specimen Received Date: 12/26/2023 6:17 PM Specimen ID: [id number] Specimen Source: Blood, Peripheral Draw Specimen Comment: Specimen Source Site: Blood Specimen Collection Start Date: 12/26/2023 6:06 PM Specimen Received Date: 12/26/2023 6:17 PM Bacteria / Christopher Culture, Blood #1 [[id number]] Collected: 12/26/231749 Lab Status: In process Specimen: Blood, Peripheral Draw Updated: 12/26/231816 Narrative: Received Bactec aerobic and Bactec anaerobic bottles Specimen Information: Specimen ID: [id number] Specimen Source: Blood, Peripheral Draw Specimen Comment: Specimen Source Site: Blood Specimen Collection Start Date: 12/26/2023 5:50 PM Specimen Received Date: 12/26/2023 6:17 PM Specimen ID: [id number] Specimen Source: Blood, Peripheral Draw Specimen Comment: Specimen Source Site: Blood Specimen Collection Start Date: 12/26/2023 5:50 PM Specimen Received Date: 12/26/2023 6:17 PM Specimen ID: [id number] Specimen Source: Blood, Peripheral Draw Specimen Comment: Specimen Source Site: Blood Specimen Collection Start Date: 12/26/2023 5:50 PM Specimen Received Date: 12/26/2023 6:17 PM ASSESSMENT / PLAN PROTOTYPE ENGINEER MANAGER ASSESSMENT Say Hilario is a 43 y.o. [...] STATUS: Full Code Disposition discussed with eICU search consultant, Dr. Booth. Recommendations and disposition discussed with primary team and bedside nurse who are in agreement. Thank you for this consultation. Ravi Duenas M.D. Internal Medicine PGY-3 Pager [phone] documented in this encounter Nursing Notes * [...] CDT Under the direction of Heidi Rock PROTOTYPE ENGINEER MANAGER * Africa Winkler RMayN. - 12/29/2023 1:18 PM CDT PEG/PEJ Nursing Procedure Note ASSESSMENT / PLAN Patient Name: Say Hilario Department : [facility] SUBJECTIVE Past Medical History: Diagnosis [...] URETER; Surgeon: Ermias Young M.D., M.P.H.; Location: [facility] EXCHANGE URETERAL STENT Left 04/05/2023 Procedure: EXCHANGE URETERAL STENT.; Surgeon: Bi Rivera M.D.; Location: [facility] OR OTHER SURGICAL HISTORY N/A Gastrocnemius recession (eg, Maren procedure).. RETROGRADE PYELOGRAM Left 04/05/2023 Procedure: RETROGRADE PYELOGRAM; Surgeon: Bi Rivera M.D.; Location: [facility] OR SINUS SURGERY 1987 URETEROSCOPY WITH LASER LITHOTRIPSY Left 04/05/2023 Procedure: URETEROSCOPY WITH LASER LITHOTRIPSY.; Surgeon: Bi Rivera M.D.; Location: [facility] OR Social History Socioeconomic History Marital status: [...] Learning preference: Listening Education: PEG/PEJ Wallet Card ([id number]) Exchanged without sedation. Stoma was measured for [...] the direction of Ermias May R.R.T., TezRMayTMay, PROTOTYPE ENGINEER MANAGER-ACCS Electronically signed by Ermias May R.R.T., LMayR.TMay, PROTOTYPE ENGINEER MANAGER-ACCS at 12/29/2023 4:55 AM CDT * Jb Valencia RHarika. - 12/28/2023 7:19 [...] AM CDT * Ermias May R.R.T., TezR.TMay, PROTOTYPE ENGINEER MANAGER-ACCS - 12/28/2023 6:04 AM CDT Patient is [...] the last 24hours. Ermias May R.R.T., TezRMayTMay, PROTOTYPE ENGINEER MANAGER-ACCS 12/28/23 6:04 AM CDT * Carine Lopez [...] CDT Under the direction of Say Swartz PROTOTYPE ENGINEER MANAGER * Mariana Marsh M.S.N., R.N. - 12/27/2023 [...] and his hands were cool tothe touch. PROTOTYPE ENGINEER MANAGER initiated, see subsequent note and orders. documented [...] gentleman with a history brainstem stroke syndrome, Angie-Gastaut syndrome and difficult to control seizures, recent [...] history of intellectual disability, brainstem stroke syndrome, Angie-Gastaut syndrome who presents with 3 days of [...] Lan Kumar., M.H.Fabien., R.NMay, CCDS Clinical Documentation Shop Worker Query created by: Charlie Kumar, Ct, RJuli, CCDS 12/30/2023 11:34 AM CDT </LCI> * Hospital Course - Ralph Neil M.D. - 12/27/2023 4:34 AM CDT Say Hilario is a 43 y.o. male admitted on 12/26 for GJ tube dislodgement, fever, diarrhea, and increased somnolence with concern for aspiration pneumonia. Past medical history significant for Angie-Gastaut syndrome, ALL (age 20 months, s/p chemoradiation), [...] no other acute intra-abdominal findings. Medicine 6: PROTOTYPE ENGINEER MANAGER was called overnight on 12/26/2023 for increased [...] CDT Ralph Neil M.D. LAB BLOOD ADD-ON [facility] [address] [place] [address], [facility] DTL [facility] [address] [place] [address] * (ABNORMAL) CBC with Differential, Blood (12/30/2023 [...] CDT Ralph Neil M.D. LAB BLOOD ADD-ON [facility] [address] [place] [address], [facility] DTL [facility] [address] [place] [address] [facility] [address] [place] [address] * Non-Endoscopic Tube Procedure (12/29/2023 1:23 PM CDT) 12/29/2023 1:23 PM CDT Impressions [facility] - 12/29/2023 1:52 PM CDT Post-op Diagnoses: ? - The PEG-J tube was dislodged and was removed and replaced with a 3.5 ? cm long, 22 Fr Avanos FARIHA-SMALL Low-profile PEG-J gastrostomy tube. ? - No specimens collected. Narrative [facility] - 12/29/2023 1:52 PM CDT Gary [...] to tube site or tube call ? [phone] Wednesday - Wednesday 7;30 am-4:30 pm or after hours, weekends, ? holidays call [facility] refinery operator vapor recovery unit [phone] ask them to page ? [phone] and wait for MD to answer. May [...] 3.5cm long. A 3.5cm long, 22 Fr [facility] FARIHA-SMALL ? Low-profile PEG-J tube was lubricated [...] GI PROCEDURE ORDERAB LES Performing Organization Address [facility]/ZIP Co de Phone Number MAE PROVATION NA * FL Fluoro Less Than 1 Hour (12/29/2023 1:19 PM CDT) Narrative [facility] - 12/29/2023 1:20 PM CDT This exam does not require a radiologist review or interpretation. Please refer to the patient's medical record on this date for clinical details. Pedro Pablo Kline M.D. IMG FLUOROSCOPY PROC EDURES Performing Organization Address [facility] Co de Phone Number ERCP LOS [...] CDT Ralph Neil M.D. LAB BLOOD ADD-ON [facility] [address] [place] [address], [facility] [address] [address] * (ABNORMAL) CBC with Differential, Blood (12/29/2023 4:01 AM CDT) Pathologist [facility] Hemoglobin 11.1(L) 13.2 - 16.6 g/dL 12/29/2023 [...] CDT Ralph Neil M.D. LAB BLOOD ADD-ON [facility] [address] [place], [place] [id number] [place] [address] DTL [facility] [address] [place] [address] DHPM [facility] [address] [place] [address] * Patient Status (12/28/2023 11:11 PM CDT) [facility] Signature O2 Flow 2.0 L/min 12/28/2023 11:15 PM CDT STMA Device NC 12/28/2023 11:15 PM CDT STMA Spont. breaths/min 19 12/28/2023 11:15 PM CDT STMA Blood 12/28/2023 11:1 1 PM CDT 12/28/2023 11:15 PM CDT Adia Samuel M.D. LAB BLOOD NON AD D-ON [facility] [address] [place], [place] [id number] [place] [address] STMA [facility] [address] [place] [address] * (ABNORMAL) Blood Gas without Coox, Venous [...] Samuel M.D. LAB BLOOD NON AD D-ON [facility] [address] [place] [address], [facility] [address] [place] [address] * Patient Status (12/28/2023 4:39 PM CDT) O2 Flow 2.0 L/min 12/28/2023 4:45 PM CDT STMA Device NC 12/28/2023 4:45 PM CDT STMA Spont. breaths/min 10 12/28/2023 4:45 PM CDT STMA Blood 12/28/2023 4:39 PM CDT 12/28/2023 4:45 PM CDT Ralph Neil M.D. LAB BLOOD NON ADD- ON [facility] [address] [place] [address], [facility] STMA [facility] [address] [place] [address] * (ABNORMAL) Blood Gas with Coox, Venous (12/28/2023 4:39 PM CDT) Pathologist [facility] pO2, Venous, B 77 Not applicable mm [...] Neil M.D. LAB BLOOD NON ADD- ON [facility] [address] [place] [address], [facility] [address] [place] [address] * (ABNORMAL) Venous Blood Gas and Electrolytes CG8+, POCT (12/28/2023 3:19 PM CDT) [facility] Sample Site, POCT Venstick 12/28/2023 3:26 [...] ORD ERABLES - DEVICE Performing Organization Address [facility] Co de Phone Number [facility] [address] [place] [address], [facility] PCLX [facility] POC [address] [place] [address] PCSM [facility] POC [address] [place] [address] * EEG (12/28/2023 7:29 AM CDT) Narrative [...] NEUROLOGY ORDERABLES Performing Organization Address [facility] Co de Phone Number MMODAL NA * [...] CDT Adia Samuel M.D. LAB BLOOD ADD-ON [facility] [address] [place] [address], [place] DTL [facility] [address] [place] [address] [facility] [address] [place] [address] * (ABNORMAL) Basic Metabolic Panel (12/28/2023 6:42 AM CDT) [facility] Potassium, S 3.8 3.6 - 5.2 [...] CDT Adia Samuel M.D. LAB BLOOD ADD-ON [facility] [address] [place] [address], [facility] [address] [place] [address] * Glucose, POCT (12/28/2023 6:26 AM CDT) Glucose, POCT, B 97 70 - 140 mg/dL 12/29/2023 3:30 PM CDT PCLX Site Capillary 12/29/2023 3:30 PM CDT PCLX Last Intake ContTubFdg 12/29/2023 3:30 PM CDT PCLX Blood 12/28/2023 6:26 AM CDT 12/29/2023 3:30 PM CDT Unknown Provider LAB POCT ORDERABLES- MANUAL Performing Organization Address City/[facility] Co de Phone Number [facility] [address] [place] [address], [place] PCLX [facility] P[facility] [address] [place] [address] * ECG 12 Lead (12/27/2023 2:34 PM CDT) Ventricular Rate ECG/Min 95 BPM MUSE [place] Interval 150 ms MUSE QRSD Interval 96 ms MUSE QT Interval 358 ms MUSE QTC Interval 449 ms MUSE P [place] 19 degrees MUSE R [place] -4 degrees MUSE T Wave [place] 84 degrees MUSE 12/27/2023 2:34 PM CDT [...] Kline M.D. ECG ORDERABLES Performing Organization Address City/[facility] Co de Phone Number MUSE NA * Patient Status (12/27/2023 2:33 PM CDT) FIO2 0.21 0.21=AIR 12/27/2023 2:37 PM CDT STMA Spont. breaths/min 14 12/27/2023 2:37 PM CDT STMA Blood 12/27/2023 2:33 PM CDT 12/27/2023 2:37 PM CDT Pedro Pablo Kline M.D. LAB BLOOD NON ADD-ON [facility] [address] [place] [address], [facility] STMA [facility] [address] [place] [address] * (ABNORMAL) Blood Gas with Coox, Venous [...] Pablo Kline M.D. LAB BLOOD NON ADD-ON [facility] [address] [place] [address], [facility] [address] [place] [address] * Patient Status (12/27/2023 10:30 AM CDT) Pathologist [facility] FIO2 0.21 0.21=AIR 12/27/2023 10:33 AM CDT STMA Spont. breaths/min 13 12/27/2023 10:33 AM CDT STMA Blood 12/27/2023 10:3 0 AM CDT 12/27/2023 10:33 AM CDT Pedro Pablo Kline M.D. LAB BLOOD NON ADD-ON [facility] [address] [place] [address], [facility] [address] [place] [address] * Blood Gas without Coox, Venous (12/27/2023 [...] Pablo Kline M.D. LAB BLOOD NON ADD-ON [facility] [address] [place] [address] * Lactate (12/27/2023 10:29 AM CDT) Pathologist [facility] Lactate, P 0.6 0.5 - 2.2 mmol/L 12/27/2023 10:47 AM CDT STMA Blood (Blood, Venous) 12/27/2023 10:29 AM CDT 12/27/2023 10:33 AM CDT Pedro Pablo Kline M.D. LAB BLOOD NON ADD-ON [facility] [address] [place] [address] * Patient Status (12/27/2023 1:34 AM CDT) [facility] O2 Flow 2.0 L/min 12/27/2023 1:38 AM CDT STMA Device NC 12/27/2023 1:38 AM CDT STMA Spont. breaths/min 13 12/27/2023 1:38 AM CDT [facility] Blood 12/27/2023 1:34 AM CDT 12/27/2023 1:38 AM CDT Adia Samuel M.D. LAB BLOOD NON AD D-ON Performing Organization Address City/[facility]/ZIP Co de Phone Number [facility] [address] [place], [place] [address] [place] [address] [address] [place] [address] * (ABNORMAL) Blood Gas without Coox, Venous (12/27/2023 1:34 AM CDT) Pathologist [facility] pO2, Venous, B 41 Not applicable mm [...] BLOOD NON AD D-ON Performing Organization Address [facility] Co de Phone Number [facility] [address] [place] [address] * (ABNORMAL) Creatinine with Estimated GFR (12/27/2023 1:34 AM CDT) Creatinine 0.39(L) 0.74 - 1.35 mg/dL 12/27/2023 2:40 AM CDT DTL Estimated GFR (eGFR) >90 >=60 mL/min/BSA 12/27/2023 2:40 AM CDT DTL Comment: Estimated GFR calculated using the 2020 CKD_EPI creatinine equation. Blood (Blood, Venous) 12/27/2023 1:34 AM CDT 12/27/2023 2:01 AM CDT Fatmata Grier M.D. LAB BLOOD ADD-ON Performing Organization Address City/[facility]/ZIP Co de Phone Number [facility] [address] [place] [address], [facility] [place] [address] * (ABNORMAL) CBC with Differential, Blood (12/27/2023 [...] CDT Fatmata Grier M.D. LAB BLOOD ADD-ON [facility] [address] [place] [address], [facility] DTL [facility] [address] [place] [address] DHPM [facility] [address] [place] [address] * (ABNORMAL) Comprehensive Metabolic Panel (12/27/2023 1:34 AM CDT) [facility] Potassium, S 4.4 3.6 - 5.2 [...] M.D. LAB BLOOD ADD-ON Performing Organization Address City/[facility]/ZIP Co de Phone Number [facility] [address] [place] [address], [facility] DTL [facility] [address] [place] [address] * Lactate, POCT (12/26/2023 11:54 PM CDT) [facility] Lactate, POCT 1.12 0.50 - 2.20 mmol/L 12/27/2023 12:10 AM CDT PCLX Sample Site, POCT Venstick 12/27/2023 12:10 AM CDT PCLX Blood 12/26/2023 11:5 4 PM CDT 12/27/2023 12:10 AM CDT Unknown Provider LAB POCT ORDERABLES - DEVICE Performing Organization Address [facility] de Phone Number [facility] [address] [place] [address], [facility] PCLX [facility] POC [address] [place] [address] * (ABNORMAL) Venous Blood Gas and Electrolytes CG8+, POCT (12/26/2023 11:50 PM CDT) Pathologist [facility] Sample Site, POCT Venstick 12/27/2023 12:10 AM [...] LAB POCT ORDERABLES - DEVICE POC RST [facility] [address] [place] [address], [facility] PCSM [facility] POC [address] [place] [address] * Feeding Tube Replacement (12/26/2023 9:36 PM [...] Lozano M.D. LAB BLOOD NON ADD-O N [facility] [address] [place] [address], [facility] [address] [place] [address] * Influenza A/B, SARS CoV-2, PCR, Rapid [...] at the following links: For Healthcare Providers: https://www.fda.gov/media/723677/download For Patients: https://www.fda.gov/media/211635/download Infl A/B, SARS CoV-2, PCR, Source Swab, Nasopharynx 12/26/2023 7:56 PM CDT STMA Swab (Nasopharynx) 12/26/2023 7:50 PM CDT 12/26/2023 7:56 PM CDT Jamia Lozano M.D. LAB MICROBIOLOGY - GENERAL ORDERABLES [facility] [address] [place] [address], [facility] [address] [place] [address] * Bacterial Culture, Aerobic + Susceptibility, Urine (12/26/2023 7:37 PM CDT) Urine Culture No growth after 1 day of incubation. 12/28/2023 7:28 AM CDT DTL Urine (Urine, Midstream) 12/26/2023 7:37 PM CDT 12/26/2023 8:36 PM CDT Comment:Specimen Source Site : Urine Jamia Lozano M.D. LAB MICROBIOLOGY - GENERAL ORDERABLES [facility] [address] [place] [address], [place] DTL [facility] [address] [place] [address] * CT Abdomen Pelvis with IV Contrast [...] Jamia Lozano M.D. LAB URINE ORDERABLE S [facility] [address] [place] [address], [facility] [address] [place] [address] * pH, Urine (12/26/2023 7:07 PM CDT) pH, U 7.0 4.5 - 8.0 12/26/2023 7:5 0 PM CDT DTL Urine 12/26/2023 7:07 PM CDT 12/26/2023 7:37 PM CDT Jamia Lozano M.D. LAB URINE ORDERABLE S [facility] [address] [place] [address], [facility] [address] [place] [address] * Osmolality, Urine (12/26/2023 7:07 PM CDT) Osmolality, U 237 150 - 1150 mOsm/kg 12/26/2023 7:50 PM CDT DTL Urine 12/26/2023 7:07 PM CDT 12/26/2023 7:37 PM CDT Jamia Lozano M.D. LAB URINE ORDERABLE S Performing Organization Address [facility]/ZIP Co de Phone Number [facility] [address] [place] [address], [facility] [address] [place] [address] * Microscopic Automated (12/26/2023 7:07 PM CDT) Microscopy Normal 12/26/2023 7:54 PM CDT DTL RBC None Seen <3 /hpf 12/26/2023 7:54 PM CDT DTL WBC None Seen /hpf 12/26/2023 7:54 PM CDT DTL Comment: ----REFERENCE VALUE---- <4 ??(Males) <11 (Females) Urine 12/26/2023 7:07 PM CDT 12/26/2023 7:37 PM CDT Jamia Lozaon M.D. LAB URINE ORDERABLE S Performing Organization Address City/[facility]/ZIP Co de Phone Number [facility] [address] [place] [address], [facility] [address] [place] [address] * (ABNORMAL) Urinalysis, with Microscopic: Urine, Catheter [...] Jamia Lozano M.D. LAB URINE ORDERABLE S [facility] [address] [place] [address], [address] [address] * Dipstick, POCT, Urine (12/26/2023 7:06 PM CDT) Glucose, POCT, U Negative Negative mg/dL 12/26/2023 7:08 PM CDT PCED Ketone, POCT, U Negative Negative mg/dL 12/26/2023 7:08 PM CDT PCED Specific [place], POCT, U 1.015 1.005 - 1.030 12/26/2023 [...] LAB POCT ORDERABLES - DEVICE POC RST [facility] [address] [place] [address], [place] PCED [facility] POC [address] [place] [address] * DX Chest Portable 1 View (12/26/2023 [...] CDT Comment:Specimen Source Site : Blood Narrative [facility] - 12/31/2023 7:02 PM CDT Received Bactec aerobic and Bactec anaerobic bottles Jamia Lozano M.D. LAB MICROBIOLOGY - GENERAL ORDERABLES Performing Organization Address City/[facility] Hospital/ZIP Co de Phone Number [facility] [address] [place] [address], [facility] [address] [place] [address] * Bacteria / Christopher Culture, Blood #1 (12/26/2023 5:50 PM CDT) Pathologist [facility] Bacteria/Isabell da Culture, Blood No growth after 5 days of incubation. 12/31/2023 7:02 PM CDT DTL Blood (Blood, Peripheral Draw) 12/26/2023 5:50 PM CDT 12/26/2023 6:17 PM CDT Comment:Specimen Source Site : Blood Narrative [facility] - 12/31/2023 7:02 PM CDT Received Bactec aerobic and Bactec anaerobic bottles Jamia Lozano M.D. LAB MICROBIOLOGY - GENERAL ORDERABLES Performing Organization Address [facility] Co de Phone Number [facility] [address] [place] [address], [facility] [address] [place] [address] * (ABNORMAL) Hepatic Function Panel (12/26/2023 5:49 [...] BLOOD ADD-ON Performing Organization Address [facility]/ZIP Co de Phone Number [address] [place] [address] * (ABNORMAL) Lipase (12/26/2023 5:49 PM CDT) Lipase, S 8(L) 13 - 60 U/L 12/26/2023 6: 49 PM CDT DTL Blood (Blood, Venous) 12/26/2023 5:49 PM CDT 12/26/2023 6:34 PM CDT Jamia Lozano M.D. LAB BLOOD ADD-ON Performing Organization Address City/[facility]/ZIP Co de Phone Number [facility] [address] [place] [address] * (ABNORMAL) Lactate for Sepsis with Reflex (12/26/2023 5:49 PM CDT) Lactate, P 2.3(H) 0.5 - 2.2 mmol/L 12/26/2023 6:25 PM CDT STMA Blood (Blood, Venous) 12/26/2023 5:49 PM CDT 12/26/2023 6:12 PM CDT Jamia Lozano M.D. LAB BLOOD NON ADD-O N Performing Organization Address [facility] Co de Phone Number [facility] [address] [place] [address], [facility] [address] [place] [address] * (ABNORMAL) Prothrombin Time (PT) (12/26/2023 5:49 [...] BLOOD ADD-ON Performing Organization Address [facility] de Phone Number [facility] [address] [place] [address], [facility] [address] [place] [address] * (ABNORMAL) CBC with Differential, Blood (12/26/2023 [...] CDT Jamia Lozano M.D. LAB BLOOD ADD-ON [facility] [address] [place] [address], [facility] STMA [facility] [address] [place], [place] [address] [place] [address] [place] [address] * (ABNORMAL) Basic Metabolic Panel (12/26/2023 5:49 PM CDT) [facility] Potassium, P 4.4 3.6 - 5.2 [...] CDT Jamia Lozano M.D. [place] [address], [facility] [address] [place] [address] * Vitamin B12 Assay (12/26/2023 5:48 PM [...] Pedro Pablo Kline M.D. LAB BLOOD ADD-ON [facility] [address] [place] [address] * Cystatin C with Estimated GFR (12/26/2023 [...] CDT Adia Samuel M.D. LAB BLOOD ADD-ON [facility] [address] [place], [place] [address] [address] [place] [address] * (ABNORMAL) Lactate (12/26/2023 4:33 PM CDT) Lactate, P 2.6(H) 0.5 - 2.2 mmol/L 12/26/2023 5:02 PM CDT STMA Blood (Blood, Venous) 12/26/2023 4:33 PM CDT 12/26/2023 4:47 PM CDT Jamia Lozano M.D. LAB BLOOD NON ADD-O N Performing Organization Address City/[facility] Hospital/ZIP Co de Phone Number [facility] [address] [place] [address], [facility] STMA [facility] [address] [place] [address] * Glucose, POCT (12/26/2023 4:32 PM CDT) Glucose, POCT, B 101 70 - 140 mg/dL 12/26/2023 4:55 PM CDT PCLX Site Venstick 12/26/2023 4:55 PM CDT PCLX Blood 12/26/2023 4:32 PM CDT 12/26/2023 4:56 PM CDT Unknown Provider LAB POCT ORDERABLES- MANUAL Performing Organization Address City/[facility] Co de Phone Number [facility] [address] [place] [address], [facility] PCLX [facility] POC [address] [place] [address] documented in this encounter Visit Diagnoses Diagnosis Aspiration Pneumonia Secondary to Procedure- Primary Pneumonia Sepsis (HCC) Aftercare Feeding Tube Dehydration Diarrhea Acidosis Lactic Dysphagia Oropharyngeal Phase [R13.12] Leukemia Lymphocytic Acute Remission (HCC) Seizure (HCC) Ayaan Gastaut Syndrome (HCC) Dysphagia Intellectual Disability Profound [...] mL/hr, Administer over 15 Minutes, Once, On [facility] 12/30/23 at 1200, For 1 dose, Drug Monitoring Program: Pharmacist to adjust medication dosing based on indication and drug clearance factors., Indications: Respiratory tract infection, community acquired New Bag 12/30/2023 11:00 AM CDT 2 g 200 mL/hr cefTRIAXone injection 2 g (ROCEPHIN) 2 g, intravenous, Once, On [place] 12/26/23 at 2013, For 1 dose, Adminster [...] dilute with equal volume of 0.9% NS qqxyfqspycya-khef-NO-Ca-minerals 400 mcg (folic acid) tablet 1 tablet [...] Wed12/28/23 at 0700 0617 (Given - Provider: Csome Freire R.N., CCRN) 0619 (Given - Provider: [...] 0820 (Given - Provider: Tong Gilbert R.N.) hqxxjsukrnna-ceuj-LA-Ca-m inerals 400 mcg (folic acid) tablet 1 [...] Jb Valencia R.N.)1427 (Given - Provider: Jb Valenica R.N.)2136 (Given - Provider: Cosme Freire R.N., [...] Magana R.N., CCRN) 0818 (Given - Provider: Togn Gilbert R.N.) rufinamide tablet 400 mg (BANZEL) [...] documented as of this encounter Care Teams Bookbinder Chief Relationship Specialty Start Date End Date Elsewhere, Pcp PCP - General Family Medicine 06/24/18 documented as of this encounter
--- OUTSIDE RECORDS SUMMARY | 2024-03-14 04:19 | XMS_ITS | Encounter Summary ---
Author Organization [facility] Address [address] [place] [id number] Care Team Providers Care Labor Mediator Name Role Phone Elsewhere, Pcp Primary Care Provider Unavailabl e Reason for Referral * Outpatient (Routine) - Closed Specialty Diagnoses / Procedures Referred By Valorie copeland Referred To Contact Sleep Medicine Srinath Rodriguez M.D. [address] [place] [phone] Jessy Pisano M.D. [address] [place] [phone] Referral ID Status Reason Start Date Expiration Date Visits Re quested Visits Authorized [id number] Closed 12/27/2023 06/27/2025 1 1 Scheduling Instructions Pre PSG visit Encounter Details Date Type Department Care Team (Late st Contact Info) Description 12/27/2023 Orders Only [facility] [place], [place] [address] [place] [phone] Srinath Rodriguez M.D. [address] [place] [phone] Social History Tobacco Use Types Packs/Day Years [...] declined 12/11/2021 How often do you attend mormon or oriental orthodox serv ices? Patient declined 12/11/2021 Do you belong to any clubs o r organizations such as mormon groups, unions, fraternal or athletic groups, or [...] and heating? Not hard at all 12/11/2021 [facility] [place] [facility] Occupat ional [facility] - Occupational Stress [...] place to sleep or slept in a nursing home (including now)? No 12/11/2021 Nutrition Answer [...] on filedocumented in this encounter Care Teams Labor Mediator Relationship Specialty Start Date End Date Elsewhere, Pcp PCP - General Family Medicine 06/24/18 documented as of this encounter
--- OUTSIDE RECORDS SUMMARY | 2024-03-14 04:19 | XMS_ITS | Encounter Summary ---
Author Organization [facility] Address [address] [place] [id number] Care Team Providers Care Circular Saw Filer Name Role Phone Elsewhere, Pcp Primary Care Provider Unavailabl e Encounter Details Date Type Department Care Team (Latest Contact Info) Description 12/29/2023 11:05 AM CDT - 12/29/2023 11:59 PM CDT Hospital Encounter Department of Radiology, [facility] in [place], [place] [address] [place] [phone] Pedro Pablo Kline M.D. [address] [place] [address] Discharge Disposition: Home or Self Care Social [...] How often do you attend faith or orthodox serv ices? Patient declined 12/11/2021 [...] place to sleep or slept in a halfway (including now)? No 12/11/2021 Nutrition Answer Date [...] on filedocumented in this encounter Care Teams Circular Saw Filer Relationship Specialty Start Date End Date Elsewhere, Pcp PCP - General Family Medicine 06/24/18 documented as of this encounter
--- OUTSIDE RECORDS SUMMARY | 2024-03-14 04:19 | XMS_ITS | Encounter Summary ---
Author Organization [facility] Address [address] [place] [address] Care Team Providers Care Italian Lecturer Name Role Phone Elsewhere, Pcp Primary Care Provider Unavailabl e Reason for Referral * Speech Pathology (Routine) - Authorized Specialty Diagnoses / Procedures [facility] Referred To Contact Diagnoses Dietary Counseling And Surveillance For Enteral Nutrition Procedures CONTINUITY COORDINATOR - Ongoing treatment Sis Brown APRN, C.N.P., D.N.P. [address] [place] [phone] [facility] [place] Referral ID Status Reason Start Date Expiration Date V isits Requested Visits Authorized [id number] Authorized 12/22/2023 12/21/2024 99 99 * Outpatient (Routine) - Authorized Specialty Diagnoses / Procedures Referred By Contac t Referred To Contact Diagnoses Dietary Counseling And Surveillance For Enteral Nutrition Procedures FL Swallow Function with Video and Speech or OT Sis Brown APRN, C.N.P., D.N.P. [address] [place] [phone] [facility] [place] Referral ID Status Reason Start Date Expiration Date V isits Requested Visits Authorized [id number] Authorized 12/22/2023 12/21/2024 1 1 * Speech Pathology (Routine) - Authorized Specialty Diagnoses / Procedures Referred By Contac t Referred To Contact Diagnoses Dietary Counseling And Surveillance For Enteral Nutrition Procedures CONTINUITY COORDINATOR Dysphagia evaluate and treat Sis Brown APRN, C.N.PMay, Keren.N.P. [address] [place] [address] [facility] [place] Referral ID Status Reason Start Date Expiration Date V isits Requested Visits Authorized [id number] Authorized 12/22/2023 12/21/2024 99 99 Reason for Visit * Reason Onset Date Comments Follow-up Orders 12/20/2023 Encounter Details Date Type Department Care Team (Latest Contact Info) Description 12/20/2023 Clinical Communication Division of Endocrinology in [place], [place] [address] [place] [address] Provider, Unknown Follow-up Orders Social History Tobacco [...] How often do you attend temple or methodist serv ices? Patient declined 12/11/2021 [...] and heating? Not hard at all 12/11/2021 [facility] - Occupational [...] documented as of this encounter Care Teams Italian Lecturer Relationship Specialty Start Date End Date Elsewhere, Pcp PCP - General Family Medicine 06/24/18 documented as of this encounter
--- OUTSIDE RECORDS SUMMARY | 2024-03-14 04:19 | XMS_ITS | Encounter Summary ---
Author Organization [facility] Address [address] [place] [address] Care Team Providers Care Craft Demonstrator Name Role Phone Elsewhere, Pcp Primary Care Provider Unavailabl e Reason for Visit * Reason Comments Scheduling Encounter Details Date Type Department Care Team ( Contact Info) Description 12/20/2023 Documentation Division of Endocrinology in [place], [place] [address] [place] [address] Anastasia Chaney, RMayNMay Scheduling Social History Tobacco [...] How often do you attend jewish or hinduism serv ices? Patient declined 12/11/2021 [...] and heating? Not hard at all 12/11/2021 [facility] - [...] place to sleep or slept in a care home (including now)? No 12/11/2021 Nutrition Answer [...] in GI. Patient has a history of [place]-Gastout syndrome and developmental delay. He currently has a 8250-22 TGJ tube last replaced 06/10/23 in GI. He will need a 30 minute slot, no anesthesia at --[facility], any complex doctor to do. Patient is not currently on any anticoagulants. No HEN appointments are needed at this time. HEN annual appointmentsdone June 2023. Requesting appointments next available. documented in this encounter Plan of Treatment Not on file documented as of this encounter Visit Diagnoses Not on filedocumented in this encounter Care Teams Craft Demonstrator Relationship Specialty Start Date End Date Elsewhere, Pcp PCP - General Family Medicine 06/24/18 documented as of this encounter
--- OUTSIDE RECORDS SUMMARY | 2024-03-14 04:19 | XMS_ITS | Encounter Summary ---
Author Organization [facility] Address [address] [place] [address] Care Team Providers Care Breakfast Host Name Role Phone Elsewhere, Pcp Primary Care Provider Unavailabl e Reason for Visit * Reason Onset Date Comments Vomiting 12/26/2023 Tube Problem 12/26/2023 Encounter Details Date Type Department Care Team (Late st Contact Info) Description 12/26/2023 Nurse Triage Department of Family Medicine, [facility], in [place], [place] [address] [place] [phone] Poonam Jasmine RJuli [address] [place] [phone] Vomiting; Tube Problem Social History Tobacco Use [...] How often do you attend hoahaoism or presybeterian serv ices? Patient declined 12/11/2021 Do you [...] and heating? Not hard at all 12/11/2021 [facility] - Occupational [...] place to sleep or slept in a alf (including now)? No 12/11/2021 Nutrition Answer Date [...] care advice?: Yes, able to teach back [id number]-[id number]-[id number] De La Cruz R.N. Sun Dec 26, [...] You become worse Feeding Tube Symptoms and Mydxuygou-WWSUT-EPPoonam De La Cruz R.N. Sun Dec 26, 2023 01:46 PM Care Advice GO TO ED NOW: * You need to be seen in the Emergency Department. * Go to the ED at nearest Hospital. * Leave now. Drive carefully. NOTE TO TRIAGER - TUBE REPLACEMENT: * Contacting the patient's doctor (or POLITICAL RESEARCHER/PA) may be indicated in some cases to [...] of site in abdominal wall Protocols used: [id number], Feeding Tube Symptoms and [id number] documented in this encounter Plan of Treatment Not on file documented as of this encounter Visit Diagnoses Not on filedocumented in this encounter Care Teams Breakfast Host Relationship Specialty Start Date End Date Elsewhere, Pcp PCP - General Family Medicine 06/24/18 documented as of this encounter
== END 2024-02-28 10:30 | disposition home or self-care (01) ==
LOC: AMB 03-14 04:04
PROVIDERS: PCP Family Medicine; Visit Provider Family Medicine
DX: R53.1 Weakness (principal); R06.09 Other forms of dyspnea
CPT/HCPCS: A0425; A0427

== ENCOUNTER 2024-02-28 11:21 | Emergency (ER) | payer MEDICARE, MEDICAID, SELFPAY ==
[2024-02-28] VITALS (32 sets, daily range): BP systolic 97–133; BP diastolic 54–92; PULSE 80–100; RESP 18; TEMP 36.3; O2SAT 91–98; BMI 32.3
--- NOTE | 2024-02-28 11:23 | CRLHL7_ITS ---
For Patients: As a result of the Century Cures Act, medical imaging exams and procedure reports are released immediately into your electronic medical record. You may view this report before your referring provider. If you have questions, please contact your health care provider. Indication: Shortness of breath, BiPAP Technique: Chest 1 view Comparison: None Findings/Impression: Cardiovascular and mediastinum: Upper normal heart size Lungs and pleural space: Low lung volumes without pleural effusion or pneumothorax. Minimal patchy opacities at the lung bases, likely atelectasis. Bones and soft tissues: No acute findings. Dictated by Lázaro Mock MD @ 02/28/2024 11:58:28 AM (Electronically Signed)
--- NOTE | 2024-02-28 11:32 | CRLHL7_ITS ---
For Patients: As a result of the Century Cures Act, medical imaging exams and procedure reports are released immediately into your electronic medical record. You may view this report before your referring provider. If you have questions, please contact your health care provider. INDICATION: Shortness of breath TECHNIQUE: Ultrasound venous duplex lower extremity bilateral. Compression venous exam was performed using early-scale, color Doppler, and spectral Doppler imaging. COMPARISON: None. FINDINGS: Right lower extremity: Right common femoral, greater saphenous, profunda femoris, femoral, popliteal, peroneal and posterior tibial veins show normal compression and waveforms. Left lower extremity: The left common femoral, greater saphenous and profunda femoris veins show normal compression and waveforms spread at the level of the mid left femoral vein there is occlusive thrombus extending to the level of the popliteal vein. Posterior tibial veins normal compressibility. Normal compressibility left peroneal veins. IMPRESSION: 1. Acute occlusive deep venous thrombosis within the mid left femoral vein extending to the popliteal vein. 2. Remaining deep veins of the bilateral lower extremities are widely patent. Results called to Dr. Feldman at 1322 on 02/28/2024 Dictated by Lázaro Mock MD @ 02/28/2024 1:23:28 PM (Electronically Signed)
--- NOTE | 2024-02-28 11:34 | ED_ITS ---
HPI - General Adult General Chief complaint: Shortness of Breath/Dyspnea Stated complaint: shortness of breath Time Seen by Provider: 02/28/24 11:25 Source: patient Mode of arrival: ambulatory Limitations: no limitations History of Present Illness HPI narrative: 44-year-old male presenting via EMS secondary to shortness of breath and hypotension. Patient is nonverbal, history Ayaan-Gastaut syndrome, development al delay, ALL. Discussed with patient's parents who are present: They state that yesterday he became slightly more lethargic than his usual. This morning mom stated that she had to suction a lot of secretions from his mouth. They do have a home health nurse that comes once a week and she was here this morning and had increased his oxygen. Mom states that he wears oxygen at night at 1 L and was requiring oxygen this morning. He was 80% on 2 L nasal cannula. Patient does have history of aspiration pneumonia requiring ICU care. He is full code. Mom also states that in the last 24 hours he has had decreased urine output. She states that when she catheterization since she usually gets about 400 mL of urine each time she caths, in the last 24 hours got about half of that, despite normal fluid input. Patient does have a g-tube present. No fevers that they are aware of. He has been coughing, but not more than usual. Patient presents after 500 mL of normal saline, on a nor epi drip and BiPap Related Data Home Medications ?Medication ?Instructions ?Recorded ?Confirmed baclofen 20 mg tablet 20 mg PO QID 02/28/24 02/28/24 cannabidiol 100 mg/mL oral mg PO 02/28/24 solution (Epidiolex) clobazam 10 mg tablet mg 02/28/24 diazepam 12.5 mg-15 mg-17.5 mg-20 NH 02/28/24 mg rectal kit felbamate 600 mg/5 mL oral mg PO 02/28/24 suspension hydrocodone 5 mg-acetaminophen 325 2 tab PO Q6H PRN severe pain 02/28/24 02/28/24 mg tablet lamotrigine 100 mg tablet mg PO 02/28/24 (Lamictal) lamotrigine 200 mg tablet 200 mg 3XD 02/28/24 (Lamictal) levetiracetam 100 mg/mL oral PO 02/28/24 solution (Keppra) rufinamide 200 mg tablet mg PO 02/28/24 triamcinolone acetonide 0.1 % applic topical BID PRN 02/28/24 topical cream Allergies Allergy/AdvReac Type Severity Reaction Status Date / Time Penicillins Allergy Intermediate Verified 09/28/23 20:36 Review of Systems Status of ROS: Reports: unobtainable due to medical condition PFSH [facility] Social History Smoking Status: Never smoker Do you use any of these nicotine containing products: None Second hand tobacco smoke exposure: No How often do you have a drink containing alcohol: never How often do you have six or more drinks on one occasion: Never AUDIT-C Alcohol total score: 0 Non-prescribed substance use: denies use service: No Exam Narrative: Exam Narrative: Well-nourished well-developed patient presents via EMS on BiPAP. Nonverbal. HEENT: Normocephalic atraumatic. Pupils are equally round reactive to light. Conjunctivae are moist without any icterus noted. Moist mucous membranes, he does have a little bit of blood around his lips. Neck is soft. Cardiovascular: Heart is regular rate and rhythm S1 and S2 are present without any murmurs. Lungs: Coarse breath sounds bilaterally. Abdomen: Soft and nondistended with normal bowel sounds. G-tube in place. Extremities: Bilateral lower extremities are without edema. Skin: Well perfused, appear somewhat pale. Skin is warm dry and intact. Const: Vital Signs, click to edit/add: Vital Signs - 24 hr 02/28/24 11:28 Temperature 97.3 F L Pulse Rate [Pulse Oximeter] 83 Respiratory Rate 18 Blood Pressure [Le ft Upper Arm] 105/69 Pulse Oximetry 95 Oxygen Delivery Me thod BiPAP Course Course ED Course: Upon arrival, fluids were restarted and patient received a total of 2 L of normal saline, nor epi drip was continued. His blood pressure did remain in the 1 teens to 120s systolic. He remained on BiPAP with good oxygen saturation. Chest x-ray was done which, read by me, did not show any acute infiltrates. Blood was drawn as we contacted [facility] for a transfer. Patient was just at [facility] in December for aspiration pneumonia and required ICU treatment. EKG, read by me, showed normal sinus rhythm with a pulse of 88. He had inverted T-waves in V3 V2 and V1 While waiting for results we also did ultrasound the bilateral lower extremities looking for any evidence of DVT to give us a clue about potential PE causing his symptoms. Per the tech these were negative. While we waited for the [facility] to call us back we did get some blood work done: A CBC showed a hemoglobin of 13.3, white blood cell count was normal at 4.96, platelets slightly low at 128. VBG showed a normal pH, CO2 slightly of a 58 and HC03 slightly up at 31. His sodium was low at 124, normal potassium. Chloride low at 90. Normal renal function, unremarkable LFTs. CRP slightly up at 1.5. Normal lactate, normal procalcitonin. Triple swab was negative. D-dimer was normal. Given his history of aspiration pneumonia and presentation of acute respiratory failure, we did start him on imipenem after blood and urine cultures were drawn. I did eventually speak to Dr. Thomas at [facility] who accepted the patient for transfer. Vital Signs Vital signs: Initial Vital Signs Temperature 97.3 F L 02/28/24 11:28 Temperature Source Temporal Artery Scan 02/28/24 11:28 Pulse Rate 83 02/28/24 11:28 Respiratory Rate 18 02/28/24 11:28 Blood Pressure 105/69 02/28/24 11:28 Blood Pressure Mean 81 02/28/24 11:28 Pulse Oximetry 95 02/28/24 11:28 Oxygen Delivery Method BiPAP 02/28/24 11:28 Vital Signs Temperature 97.3 F L 02/28/24 11:28 Pulse Rate 83 02/28/24 11:28 Respiratory Rate 18 02/28/24 11:28 Blood Pressure 105/69 02/28/24 11:28 Pulse Oximetry 95 02/28/24 11:28 Oxygen Delivery Method BiPAP 02/28/24 11:28 Temperature 97.3 F L 02/28/24 11:28 Pulse Rate 83 02/28/24 11:28 Respiratory Rate 18 02/28/24 11:28 Blood Pressure 105/69 02/28/24 11:28 Pulse Oximetry 95 02/28/24 11:28 Oxygen Delivery Method BiPAP 02/28/24 11:28 Medications Administered Medications: Discontinued Medications Generic Name Dose Route Start Last Admin Trade Name Freq PRN Reason Stop Dose Admin Sodium Chloride 500 mls @ 1,000 mls/hr 02/28/24 11:26 02/28/24 12:11 0.9 % Sodium Chloride 500 Ml IV 02/28/24 11:55 Infused .Q30M JULIO Infusion Sodium Chloride 1,000 mls @ 500 mls/hr 02/28/24 12:08 02/28/24 12:12 0.9 % Sodium Chloride 1000 Ml IV 02/28/24 14:07 500 mls/hr .Q2H JULIO Administration Medical Decision Making MDM Narrative Medical decision making narrative: 44-year-old male with complex medical history presenting with acute hypoxic respiratory failure. Treatment/interventions per above. Medical Records Medical records reviewed: Yes I reviewed the patient's medical records Lab Data Lab results reviewed: Yes I reviewed the patient's lab results Labs: Lab Results 02/28/24 02/28/24 02/28/24 Range/Units 11:33 11:54 11:55 WBC 4.96 (4.50-11.00) K/uL RBC 3.85 L (4.30-5.90) m/uL Hgb 13.3 L (13.5-17.5) gm/dL Hct 38.5 (37.0-53.0) % MCV 100 (80-100) fL MCH 35 H (26-34) pg MCHC 35 (32-36) gm/dL RDW Coeff of An 13.0 (11.5-15.5) % Plt Count 128 L (140-440) K/uL Neut % (Auto) 62.1 (42.0-72.0) % Lymph % (Auto) 26.8 (20-44) % [place] % (Auto) 7.3 (0.0-11.0) % Eos % (Auto) 3.6 (0.0-7.0) % Baso % (Auto) 0.2 (0.0-3.0) % Neut # (Auto) 3.08 (1.7-7.0) K/uL Lymph # (Auto) 1.33 (0.90-2.90) K/uL [place] # (Auto) 0.40 (0.00-0.90) K/UL Eos # (Auto) 0.18 (0.00-0.50) K/uL Baso # (Auto) 0.01 (0.00-0.30) K/uL Abs Immat Gran (auto) 0.00 (0.00-0.30) K/uL Imm/Tot Granulo (auto) 0.0 % D-Dimer Quant (PE/DVT) < 0.27 (0.00-0.50) ug/ml VBG pH 7.343 (7.32-7.43) VBG pCO2 58 H (40-50) mmHG VBG pO2 37.0 (25-47) mmHG VBG HCO3 31 H (21-28) mmol/L Sodium 124 L* (135-149) mmol/L Potassium 4.1 (3.6-5.1) mmol/L Chloride 90 L (96-114) mmol/L Carbon Dioxide 26 (20-32) mmol/L Anion Gap 8 (7-15) mEq/L BUN 10 (5-24) mg/dL Creatinine 0.3 L (0.5-1.5) mg/dL Estimated Creat Clear 283.56 Estimated GFR 151 ml/min Glucose 85 (60-115) mg/dL Lactate 1.6 (0.5-1.9) mmol/L Calcium 8.2 L (8.4-10.6) mg/dL Total Bilirubin 0.5 (0.1-1.5) mg/dL Direct Bilirubin 0.4 (0.0-0.5) mg/dL AST 36 H (12-35) U/L ALT 26 (4-50) U/L Alkaline Phosphatase 149 (40-150) U/L Troponin I 0.07 H* (0.01-0.04) ng/mL C-Reactive Protein 1.5 H (0.5-1.0) mg/dL NT-Pro-B Natriuret Pep 124 pg/mL Total Protein 6.8 (6.0-8.3) g/dL Albumin 4.0 (3.3-5.0) g/dL Procalcitonin 0.05 (<0.50) ng/mL SARS-CoV-2 (PCR) Negative SARS-CoV-2 (Negative) Influenza Type A (PCR) Negative PCR FLU A (Negative) Influenza Type B (PCR) Negative PCR FLU B (Negative) RSV (PCR) Negative PCR RSV (Negative) POC Troponin I 0.00 L (0.01-0.04) ng/ml Imaging Data Chest x-ray: Attestation: I have reviewed the pertinent imaging results. Radiologist's impression: Chest 1 view Comparison: None Findings/Impression: Cardiovascular and mediastinum: Upper normal heart size Lungs and pleural space: Low lung volumes without pleural effusion or pneumothorax. Minimal patchy opacities at the lung bases, likely atelectasis. Bones and soft tissues: No acute findings. ECG Data Attestation: I personally reviewed and interpreted this ECG as follows: Discharge Plan Discharge Clinical Impression: Acute hypoxemic respiratory failure, Acute hypotension Patient Disposition: [facility] Condition: Critical Prescriptions: No Action lamotrigine [Lamictal] 200 mg tablet 200 mg 3XD hydrocodone-acetaminophen 5-325 mg tablet 2 tab PO Q6H PRN (Reason: severe pain) triamcinolone acetonide 0.1 % cream topical BID PRN baclofen 20 mg tablet 20 mg PO QID felbamate 600 mg/5 mL suspension PO lamotrigine [Lamictal] 100 mg tablet PO levetiracetam [Keppra] 100 mg/mL solution PO diazepam 12.5-15-17.5-20 mg kit NH rufinamide 200 mg tablet PO clobazam 10 mg tablet Patient Comments: TAKE 1 1/2 TABLET VIA GIVE TUBE EVERY AM AND 1 TABLET EVERY PM Epidiolex 100 mg/mL solution PO Follow Up/Referrals: Luis Angel Flores MD [Primary Care Provider] - Stand Alone Forms: [facility] Info Instructions
--- OUTSIDE RECORDS SUMMARY | 2024-02-28 11:37 | XMS_ITS | Clinical Summary ---
Author Organization [facility] Address [place], [place] [address] Care Team Providers Care Computer Networker Name Role Phone Luis Angel Flores Unavailable MarkLuis Angel Primary Care Provider [phone] Allergies Active Allergy Reactions Criticality Noted Date Comments Aspirin 07/10/2010 Cefaclor 07/10/2010 Codeine GI Upset 12/20/2010 Converted from Generic Allergy: Codeinenausea/dyspepsia nausea/dyspepsia Penicillins 07/10/2010 [id number] *Unknown 1 Medications Medication Sig Dispensed Refills Start Date End Date Status baclofen (LIORESAL) 20 mg tablet Administer 20 mg via G-tube four times daily. Active cetirizine-pseudoep hedrine, 5-120 mg, (ZYRTEC-D) 5-120 mg tablet Administer 1 tablet via G-tube once daily. Active diazePAM RECTAL (Diastat) 2.5 mg kitIndications:acut e repetitive seizures Insert 20 mg rectally each time if needed. May repeat dose 4 to 12 hours after the initial dose if necessary; MAX, 2 doses/episode Active felbamate (FELBATOL) 600 mg/5 mL suspension Administer 12.5 mL via G-tube in the AM, give 10 mL in the afternoon, and give 10 mL at bedtime. Brand only all scheduled antiepileptic medications. Active lamoTRIgine (LAMICTAL) 100 mg tablet Administer 350 mg via G-tube in the AM, then give 300 mg at 2 pm, then give 350 mg at 9 pm. Brand only all scheduled antiepileptic medications. Active levETIRAcetam (KEPPRA) 100 mg/mL oral solution Administer 12 mL via G-tube in the AM and 13 mL in the PM. Brand only all scheduled antiepileptic medications. Active multivitamins with iron-mineral (CENTRUM) liquid Administer 10 mL via G-tube once daily. Active rufinamide (BANZEL) 200 mg tab Administer 200 mg via G-tube daily in the AM and 400 mg in the afternoon. Active temazepam (RESTORIL) 15 mg capsule Administer 45 mg via G-tube at bedtime as needed for sleep. Active levOCARNitine 10 % soln Administer 400 mg via G-tube 3 times daily. Active polyethylene glycoL (MIRALAX) 17 gram/dose powder Administer 1 scoop via G-tube once daily if needed for Constipation. Active LORazepam (ATIVAN) 2 mg tab Administer 2 mg via G-tube at bedtime if needed. Active mometasone (NASONEX) (50 mcg each actuation) nasal spray Inhale 2 Sprays into both nostrils once daily. Active bisacodyl (DULCOLAX) 10 mg suppositoryIndicati ons:constipation Insert 10 mg rectally once daily if needed. Active cloBAZam (ONFI) 10 mg Administer 15 mg via G-tube in the AM and give 10 mg at bedtime. Active HYDROcodone-acetami nophen, 10-325 mg, (NORCO) 10-325 mg per tablet Administer 1 Tablet via G-tube every 6 hours if needed for Pain. Max acetaminophen 4000mg in 24 hours. Active acetaminophen (TYLENOL) 325 mg tablet Administer 650 mg via G-tube every 6 hours if needed. Max acetaminophen dose: 4000mg in 24 hrs. Active bacitracin ointmentIndications :minor bacterial skin infections Apply topically to affected area(s) 2 times daily if needed. Active mupirocin (BACTROBAN) 2 % cream Apply topically to affected area(s) 2 times daily if needed. Active carboxymethylcellul ose (REFRESH CELLUVISC) 1 % eye gel in dropperette Place 1 Drop into both eyes each time if needed for Dry Eyes. Active hydrocortisone (CORTIZONE-10) 1 % ointment Apply topically to rash as needed. Active ibuprofen (ADVIL; MOTRIN) 600 mg tablet Administer 600 mg via G-tube three times daily with meals. Active ketoconazole 2% shampoo (NIZORAL) 2 % shampoo Apply topically to affected area(s) once daily if needed. Lather on damp scalp, leave on for 5min, then rinse with water. Active diazePAM (VALIUM) 10 mg tablet Administer 10 mg via G-tube every 8 hours if needed. 0 09/30/2018 Active albuterol (PROVENTIL) 0.083 % neb solution Inhale 2.5 mg via a nebulizer every 4 hours if needed. Active diphenhydrAMINE-zin c acetate, 1%-0.1%, (BENADRYL ITCH STOPPING CREAM) cream Apply topically to affected area(s) 4 times daily if needed for Itching. Active omeprazole 2 mg/mL suspension Administer 20 mg via G-tube once daily. Active cannabidioL (Epidiolex) 100 mg/mL soln oral solution Administer 2 mL via G-tube in the AM and give 4 mL at bedtime. Active albuterol-ipratropi um (DUONEB) (2.5-0.5 mg) in 3 mL NEBULIZATION solutionIndications :Pneumonia of right middle lobe due to infectious organism,Pneumonia of right lower lobe due to infectious organism Inhale 3 mL via a nebulizer 4 times daily if needed (SOB/cough/wheeze). 180 mL 12/02/2020 Active NebulizerIndication s:Pneumonia of right lower lobe due to infectious organism,Pneumonia of right middle lobe due to infectious organism Nebulizer, disposable neb kit x 4, reuseable neb kit x 1, mask x 1, filters x 1. Frequency of use: daily; Length of need: 99 months 1 Device 12/02/2020 Active Active Problems Problem Noted Date Diagnosed Date Profound mental handicap 12/01/2020 Brain stem stroke syndrome 12/01/2020 DNR (do not resuscitate) 12/01/2020 Overview: Discussed with mom, allow a natural . Use of cannabis oil 12/01/2020 On tube feeding diet 12/01/2020 Overview: Via J-tube: 85 ml/hr for 10-12 hours. 4 boxes of specific formula. Starts at 21:30. 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 Overview: Lymphoid leukemia, other, specified, in remission lymphoblastic leukemia Gastro-esophageal reflux disease without esophag itis 12/07/2011 Immunizations Name Administration Dates Next Due COVID-19 vaccine (Moderna 100mcg/0.5mL) PF, MDV 11/20/2020 DTP 02/11/1991, 2,1980,1979,1980 Influenza Virus, Unspecified 05/26/2017, 06/24/2016,06/27/2015,2013,06/29/2012,07/07/2010,06/26/2008,1 ,07/12/2006,07/16/2005, 004,08/27/2003 Influenza, IIV3 (Age 6-35 mos) 0,06/26/2008,07/05/2007,2005,07/16/2005 Influenza, IIV3 (Age >=3 years) 05/26/20 17,06/24/2016,06/27/2015,2013,06/27/2014,06/29/2012,06/19/2011,1 11/07/2009,07/10/2004,08/27/2003 Influenza, IIV4 05/28/2020, 9,07/06/2018,2016,07/16/2016 MMR 05/14/1981 Pneumococcal Poly,23-Valent (Pneumovax) 09/20/2006 Pneumococcal conj 13-Valent (Prevnar 13) 01/13/2016 Polio Virus, Unspecified 1980,1980,0 1980 Td (Age >=7 Years) 07/07/2010 Td, Preservative Free (age > = 7 Years) 07/07/2010 Tdap 07/10/2010 Zoster (Shingrix-RZV, recombinant) 02/14/2019,,07/28/2018 Social History Tobacco Use Types Packs/Day Years Used Date Smoking Tobacco: Never Smokeless Tobacco: Never Alcohol Use Standard Drinks/Week Comments No 0 (1 standard drink = 0.6 oz pur e alcohol) Sex and Gender Information Value Date Recorded Sex Assigned at Not on file Gender Identity Not on file Sexual Orientation Not on file Obstetrics History Last Filed Vital Signs Vital Sign Reading Time Taken Comments Blood Pressure 100/56 12/02/2020 9:00 AM CDT Pulse 92 12/02/2020 12:00 PM CDT Temperature 36.4 ??C (97.6 ??F) 12/02/2020 11:18 AM C DT Respiratory Rate 18 12/02/2020 12:04 PM CDT Oxygen Saturation 99% 12/02/2020 12:04 PM CDT Inhaled Oxygen Concentration - - Weight 59.9 kg (132 lb) 06/01/2022 3:12 PM CDT Height 144.8 cm (4' 9) 06/01/2022 3:12 PM CDT Body Mass Index 28.56 06/01/2022 3:12 PM CDT Plan of Treatment Health Maintenance Due Date Last Done Comments Depression screening for age 12+ 1992 HIV for age 15-65 02/15/1995 BMI (ht and wt on same day) for age 18+ 02/15/1998 Hepatitis C screening for age 18-79 02/15/1998 Lipids for age 35-44 02/15/2015 Tetanus booster 07/10/2020 07/10/2010, 06/14, 07/07/2010 COVID-19 vaccine series (2022- season) 2023 04/28/2022, 06/11/2021, 12/18/2020, Additional history exists Influenza for age 9-49 05/14/2024 0, 06/27/2019, 07/06/2018, Additional history exists Tdap Completed 07/10/2010 Pneumococcal series for age 6-64 Aged Out 01/13/2016, 09/20/2006 No longer eligibl e based on patient's age to complete this topic Advance Directives * DNR (Latest Code Status on File) Date Activated Date Inactivated Comments 12/01/2020 6:23 PM 12/02/2020 3:37 PM Question Answer Comments Code Status Discussion: Discussed with mom who is guardian * Partial Code Date Activated Date Inactivated Comments 09/27/2018 10:38 PM 10/02/2018 1:07 PM Question Answer Comments Cardio Resuscitation: No Chest CompressionsNo De fibrillation/Cardioversion Ventilation: No Restrictions Drug Protocol: No Drug Protocol After Arrest Oc curs Care Teams Computer Networker Relationship Specialty Start Date End Date Luis Angel Flores [address] [place] [id number] PCP - General Family Practice 06/15/20 [facility] 03/02/14
--- OUTSIDE RECORDS SUMMARY | 2024-02-28 11:37 | XMS_ITS | Patient Health Record ---
Author Organization [facility] Address [address] [place] [address] Care Team Providers Care Candy Feeder Name Role Phone Rogelio Flores Primary Care Provider Jose Martin Maria Unavailable [phone] ALLERGIES Allergen (clinical drug ingredient) Drug/Non Drug Allergy documented on EMR Reaction Allergy Type Onset Date Status aspirin Aspirin Unknown Drug Allergy Active levofloxacin Levofloxacin Unknown Drug Allergy A ctive Vicks BabyRub swelling Drug Allergy Act deniz Penicillin Unknown Drug Allergy Active RESULTS Component Value Reference Range Notes COMPREHENSIVE METABOLIC PANE L Reviewed date:02/04/2024 11:41:45 AM Interpretation: Performing Lab: Notes/Report: GLUCOSE UREA NITROGEN (BUN) CREATININE 0.36 eGFR NON-AFR. LITHUANIAN eGFR BUN/CREATININE RATIO SODIUM 128 POTASSIUM CHLORIDE CARBON DIOXIDE CALCIUM PROTEIN, TOTAL ALBUMIN GLOBULIN ALBUMIN/GLOBULIN RATIO BILIRUBIN, TOTAL ALKALINE PHOSPHATASE 127 AST 27 ALT 25 EGFR HEPATIC FUNCTION PANEL Reviewed date:02/04/2024 11:44:26 AM Interpretation: Performing Lab: Notes/Report: PROTEIN, TOTAL ALBUMIN GLOBULIN ALBUMIN/GLOBULIN RATIO BILIRUBIN, TOTAL BILIRUBIN, DIRECT BILIRUBIN, INDIRECT ALKALINE PHOSPHATASE 127 AST 27 ALT 25 CBC (INCLUDES DIFF/PLT) Reviewed date:02/04/2024 11:43:48 AM Interpretation: Performing Lab: Notes/Report: ABSOLUTE BASOPHILS ABSOLUTE EOSINOPHILS ABSOLUTE LYMPHOCYTES ABSOLUTE METAMYELOCYTES ABSOLUTE MONOCYTES ABSOLUTE PMN,ADULT BASOPHILS BLASTS CBC MORPHOLOGY COMMENT(S) EOSINOPHILS HEMATOCRIT HEMOGLOBIN IMMATURE GRAN IMMATURE GRAN ABSOLUTE LYMPHOCYTES MCH MCHC MCV METAMYELOCYTES MONOCYTES MORPHOLOGY MPV MYELOCYTES OTHER CELLS PLATELET COUNT PLATELET ESTIMATION PMN, ADULT PROMYELOCYTES RDW RED BLOOD CELL COUNT WHITE BLOOD CELL COUNT WHITE BLOOD CELL COUNT RED BLOOD CELL COUNT HEMOGLOBIN 12.5 HEMATOCRIT MCV MCH MCHC RDW PLATELET COUNT 138 NEUTROPHILS BAND NEUTROPHILS ABSOLUTE BAND NEUTROPHILS METAMYELOCYTES ABSOLUTE METAMYELOCYTES MYELOCYTES ABSOLUTE MYELOCYTES PROMYELOCYTES ABSOLUTE PROMYELOCYTES ABSOLUTE NEUTROPHILS 0.97 LYMPHOCYTES REACTIVE LYMPHOCYTES ABSOLUTE LYMPHOCYTES MONOCYTES ABSOLUTE MONOCYTES EOSINOPHILS ABSOLUTE EOSINOPHILS BASOPHILS ABSOLUTE BASOPHILS BLASTS ABSOLUTE BLASTS NUCLEATED RBC ABSOLUTE NUCLEATED RBC COMMENT(S) MPV RETICULOCYTE COUNT Reviewed date:02/04/2024 11:40:58 AM Interpretation: Performing Lab: Notes/Report: RETICULOCYTE COUNT, 1.76 RETICULOCYTE, ABSOLUTE 63.7 CLOBAZAM Reviewed date:02/04/2024 11:40:06 AM Interpretation: Performing Lab: Notes/Report: CLOBAZAM 313.0 DESMETHYLCLOBAZAM CLOBAZAM FELBAMATE Reviewed date:02/25/2024 12:34:59 PM Interpretation: Performing Lab: Notes/Report: FELBAMATE 145.7 LAMOTRIGINE Reviewed date:02/04/2024 11:44:56 AM Interpretation: Performing Lab: Notes/Report: LAMOTRIGINE 13.9 LEVETIRACETAM Reviewed date:02/04/2024 11:42:46 AM Interpretation: Performing Lab: Notes/Report: LEVETIRACETAM 71.9 5 - 45 mcg/mL RUFINAMIDE Reviewed date:02/04/2024 11:42:18 AM Interpretation: Performing Lab: Notes/Report: RUFINAMIDE LEVEL 9.0 Rufinamide (Banzel) RUFINAMIDE REASON FOR REFERRAL No Information MEDICATIONS Medication SIG (Take, Route, Frequency, Duration) Notes Start Date End Date Status Temazepam 15mg Orally q hs Act deniz Haldol 5 MG/ML 0.03 ml Injection as needed for agitation Active PriLOSEC OTC 20 MG 1 tablet 30 minutes before morning meal Orally Once a day for 30 day(s) Active levETIRAcetam 100 MG/ML TAKE 15ML EVERY MORNING AND 16ML EVERY EVENING. GIVE EXTRA 2ML NEEDED FOR>1 SEIZURE PER DAY, MAX REPEAT THREE TIMES DAILY for 90 days Active Mometasone Furoate 50 MCG/ACT 2 sprays in each nostril Nasally Once a day for 30 day(s) Active LaMICtal 200 MG 1 tablet Gtube three times a day for 30 days Active Azelastine HCl 0.1 % 1 puff in each nostril Nasally Twice a day for 30 day(s) Active Ibuprofen 600 MG 1 tablet PRN up to 3x daily PRN via g-tube Three times a day Active Dulcolax (10 MG) 1 suppository as needed for constipation Rectal qd for 30 day(s) Active Centrum 10 cc Orally qd Acti ve Furosemide 20 MG 1 tablet Orally as needed (prn) Active Baclofen 20 MG TAKE 1 TABLET (20MG) PER G-TUBE FOUR TIMES A DAY. for 18 Active Diastat AcuDial (20 MG) 20mg (max dose 40mg/in 24 hrs) Rectal PRN for 3 GTC sz in a row. If sz cont > 2min admin 12.5 mg, may repeat x1 if sz cont 2min for 30 days Active immodium 1 mg 2 tab via g-tube as directed Active Xyzal Allergy 24HR 5 MG 1 tablet in the evening Orally Once a day for 30 day(s) Active Felbamate 600 MG/5ML TAKE 12.5 MLS BY MOUTH AT 5AM, 10 MLS BY MOUTH AT 1PM AND 10 MLS BY MOUTH AT 7:30PM for 90 days APPOINTMENT NEEDED Active Epidiolex (cannabidiol) 4 mL am and 6ml Orally at bedtime (q hs) for 30 days G40.814 Ayaan Gastaut Syndrome 63.5KG 10/12/2018 Active cloBAZam 10 MG 1.5 tabs (15mg) am 1 tab (10mg) pm via g-tube as directed for 30 days 07/20/2018 Active LaMICtal 100 MG GIVE 1.5 TABLETS BY G-TUBE IN THE MORNING, 1 TABLET MIDDAY AND 1.5 TABLETS IN THE EVENING for 30 days Active Rufinamide 200 MG TAKE 1 TABLET BY G-TUBE IN THE MORNING AT 5 AM, 2 TABLETS IN THE EVENING AT 7:30 for 30 APPOINTMENT NEEDED Active SOCIAL HISTORY Sex Assigned At : Social History Observation Description Sex Assigned At Unknown Alcohol Question Answer Notes Did you have a drink containing alcohol in the p ast year? 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) Active confirmed [place]-Gastaut syndrome, refractory (807559737310276) Problem Other cerebrovascular disease (I67.89) Active confirmed Cerebrovasc ular disease (52508912) Problem Encounter for attention to gastrostomy (Z43.1) Active confirmed Attention to gastrostomy (316359251) Problem 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) Active confirmed Long-term current use of drug therapy (180807068) VITAL SIGNS Height-cm 151 cm 08/11/2023 Weight 60 kg 08/11/2023 BMI 26.31 kg/m2 08/11/2023 Encounters Encounter Location Date Provider Diagnosis [facility] [address] [place] [address] 08/11/2023 Jose Martin White Ayaan-Gastaut syndrome, intractable, 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 and 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 Z79.899 [facility] [address] [place] [address] 04/29/2023 [facility] [address] [place] [address] 06/03/2023 Jose Martin White [facility] [address] [place] [address] 06/24/2023 [facility] [address] [place] [address] 06/24/2023 [facility] [address] [place] [address] 07/21/2023 [facility] [address] [place] [address] 07/22/2023 Jose Martin White Ayaan-Gastaut syndrome, intractable, 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 [facility] [address] [place] [address] 08/11/2023 Jose Martin White [facility] [address] [place] [address] 08/20/2023 Jose Martin White Robes[place]-Gastaut syndrome, intractable, 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 [facility] [address] [place] [address] 08/24/2023 Jose Martin White Ayaan-Gastaut syndrome, intractable, 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 [facility] [address] [place] [address] 10/18/2023 Jose Martin White Robes[place]-Gastaut syndrome, intractable, 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 [facility] [address] [place] [address] 10/18/2023 Jose Martin White Ayaan-Gastaut syndrome, intractable, 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 [facility] [address] [place] [address] 10/18/2023 Jose Martin White Robesonia-Gastaut syndrome, intractable, 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 [facility] [address] [place] [address] 01/18/2024 Jose Martin White [facility] [address] [place] [address] 01/25/2024 Jose Martin White Robesonia-Gastaut syndrome, intractable, 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 [facility] [address] [place] [address] 01/31/2024 Jose Martin White Ayaan-Gastaut syndrome, intractable, 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 and Other assisted (current) drug therapy Z79.899 [facility] [address] [place] [address] 02/03/2024 Jose Martin White [facility] [address] [place] [address] 02/14/2024 Jose Martin White Ayaan-Gastaut syndrome, intractable, 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 ASSESSMENTS Encounter Date Diagnosis Assessment Notes Treatment Notes Treatment Clinical Notes 07/22/2023 Ayaan-Gastaut syndrome, intractable, without status epilepticus (ICD-10 - G40.814) 08/11/2023 Ayaan-Gastaut syndrome, intractable, without status epilepticus (ICD-10 - G40.814) 08/20/2023 [place]esonia-Gastaut syndrome, intractable, without status epilepticus (ICD-10 - G40.814) 08/24/2023 Ayaan-Gastaut syndrome, intractable, without status epilepticus (ICD-10 - G40.814) 10/18/2023 Ayaan-Gastaut syndrome, intractable, without status epilepticus (ICD-10 - G40.814) 10/18/2023 [place]esonia-Gastaut syndrome, intractable, without status epilepticus (ICD-10 - G40.814) 10/18/2023 [place]es[place]-Gastaut syndrome, intractable, without status epilepticus (ICD-10 - G40.814) 01/25/2024 [place]esonia-Gastaut syndrome, intractable, without status epilepticus (ICD-10 - G40.814) 01/31/2024 [place]esonia-Gastaut syndrome, intractable, without status epilepticus (ICD-10 - G40.814) 01/31/2024 Other assisted (current) drug therapy (ICD-10 - Z79.899) 02/14/2024 Ayaan-Gastaut syndrome, intractable, without status epilepticus (ICD-10 - G40.814) 08/11/2023 Other assisted (current) drug therapy (ICD-10 - Z79.899) PLAN OF TREATMENT Pending Test Test Name Order Date COMPREHENSIVE METABOLIC PANEL 05/14/2022 CBC (INCLUDES DIFF/PLT) 05/14/2022 CLOBAZAM 05/14/2022 FELBAMATE 05/14/2022 LAMOTRIGINE 05/14/2022 LEVETIRACETAM 05/14/2022 RUFINAMIDE 05/14/2022 Next Appt Details Provider Name:Jose Martin Eaton, 03/08/2024 01:00:00 PM, [address] [facility] [address], [place], [address], Insurance Providers Payer Name Payer Address Payer Phone Subscriber Number Group Number Insured Name Patient Relationship to Insured Coverage Start Date Coverage End Date [place] [address] [place] [id number] Say Hilario Self - patient is the insured 2 MEDICAID [place] [facility] [address] [address] [place] [address] [id number] Say Hilario Self - patient is the insured MEDICAL (GENERAL) HISTORY Medical History History ICD Code Static encephalopathy Lymphoblastic leukemia, now in remission . History of chronic hiccups. Gastrointestinal reflux/gastrointestinal ulcers. Status post lateral medullary stroke. Surgical History Surgery Date(Month/Year) Status post gastrostomy tube placement. Hospitalization History Reason Date(Month/Year) pneumonia 07/2020 At [facility] for seizures 09/27/18 None in the past six months
[2024-02-28 11:38] LABS: HCO3 VBG 31 mmol/L (21-28); Lactate* 1.6 mmol/L (0.5-1.9); PCO2 VBG 58 mmHG (40-50); pH VBG 7.343 (7.32-7.43)
--- OUTSIDE RECORDS SUMMARY | 2024-02-28 11:38 | XMS_ITS | Clinical Summary ---
Author Organization [facility] Address [address] [place] [address] Care Team Providers Care Housekeeper Manager Name Role Phone Elsewhere, Pcp Primary Care Provider Unavailabl e Source Comments Patient records contain information from all sites at [facility]. For routine questions regarding patient records, call [phone] during business hours, M-F 8:00 AM - 5:00 PM Central Time. Record requests for emergency care only can be directed to [phone] at any time.[facility] Allergies Active Allergy Reactions Criticality Noted Date Comments Amoxicillin-Pot Clavulanate Other (see comments) High 07/01/2020 Acute generalized exanthematous pustulosis (severe cutaneous adverse reaction) noted 07/01/2020. Augmentin/ Amoxicillin use contraindicated. Camphor Other (see comments) 12/20/2010 Converted from Generic Allergy: Eucalyptus/Menthol/Campho r Hzdnuiw-Qhqamipdpp-X enthol Other (see comments) 12/01/2020 Cefaclor Other (see comments) 02/17/2010 Converted from Generic Allergy: Cefaclorleukopenia leukopenia Euc Afo-Labk-Pkh,Rosem Oils-Pt Rash 05/14/2022 Levofloxacin Rash 05/14/2022 Penicillin Rash,Huang-Robin son Syndrome High 02/17/2010 SJS like reaction Petrolatum Other (see comments) 12/20/2010 Converted from Generic Allergy: Eucalyptus/Menthol/Campho r Turpentine Oil Other (see comments) 12/20/2010 Converted from Generic Allergy: Eucalyptus/Menthol/Campho r Medications Medication Sig Dispensed Refills Start Date End Date Status mometasone (NASONEX) 50 mcg/actuation nasal spray Administer 2 sprays into each nostril daily. 49 g 3 12/29/2017 Active DIASTAT ACUDIAL 12.5-15-17.5-20 mg rectal kit Insert 20 mg into the rectum as needed for seizures (if having more than 10 generalized tonic-clonic seizures per hour or if seizure lasts more than 3 minutes, may repeat once. if seizures continue, call 911). 11/26/2017 Active acetaminophen (TYLENOL) 325 mg tablet 1,000 mg by g-tube route every 6 (six) hours as needed. Active albuterol (ACCUNEB) 2.5 mg /3 mL nebulizer solution Inhale 2.5 mg every 6 (six) hours as needed for wheezing. 09/21/2019 Active cloBAZam (ONFI) 10 mg tablet 15 mg by g-tube route every morning. 05/06/2020 Active ibuprofen (ADVIL,MOTRIN) 600 mg tablet 600 mg by g-tube route every 8 (eight) hours as needed for pain. Active levocetirizine (XYZAL) 5 mg tablet 5 mg by gastric tube route every evening. Active rufinamide (BANZEL) 400 mg tablet 400 mg by g-tube route at bedtime. Active cloBAZam (ONFI) 10 mg tablet Take 10 mg by mouth at bedtime. Active levETIRAcetam (KEPPRA) 100 mg/mL solution Administer 1,600 mg via gastric tube at bedtime. Active diazePAM (VALIUM) 10 mg tablet 1 tablet (10 mg total) by g-tube route 3 (three) times a day as needed (seizures). 30 tablet 06/30/2020 Active bacitracin 500 unit/gram ointment Apply 1 Application topically as needed (redness, inflammation on skin). Active LORazepam (ATIVAN) 2 mg tablet Administer 2 mg via gastric tube daily as needed (seizures, agitation). Active baclofen (LIORESAL) 20 mg tablet TAKE 1 TABLET (20MG) PER G-TUBE FOUR TIMES A DAY. DO NOT EXCEED 80MG PER DAY. 01/27/2021 Active LaMICtaL 100 mg tablet Take 100 mg by mouth 3 (three) times a day. 350 mg morning, 350 mg at 2pm, 300 mg at bedtime. (has both 100 mg & 200 mg for the total of 350mg and 300 mg doses) 01/27/2021 Active haloperidol (HALDOL) 2 mg/mL concentrated solution Take 1 mg by mouth 4 (four) times a day as needed for agitation. 07/18/2020 Active bisacodyL (DULCOLAX) 10 mg suppository Insert 10 mg into the rectum daily as needed for constipation (if no results from AM miralax). 12/22/2022 Active felbamate (FELBATOL) 600 mg/5 mL suspension Take 1,500 mg by mouth every morning before breakfast. Active felbamate (FELBATOL) 600 mg/5 mL suspension Take 1,200 mg by mouth 2 (two) times a day. At 1400 and 2100 Active ipratropium-albute roL (DUONEB) 0.5-2.5 mg/3 mL nebulizer solution Inhale 3 mL by nebulization 4 (four) times a day as needed for shortness of breath. 06/26/2022 Active ketoconazole (NIZORAL) 2 % cream Apply 1 Application topically 2 (two) times a day as needed for irritation or rash. 07/08/2021 Active levETIRAcetam (KEPPRA) 100 mg/mL solution Administer 1,500 mg via gastric tube every morning. Active magnesium hydroxide (MILK OF MAGNESIA) 400 mg/5 mL suspension Administer 30 mL via gastric tube daily as needed (if needed for constipation If no results from Miralax, Dulcolax Sup, Fleet, and Mineral Oil enemas.). 10/09/2022 Active diphenhydramine-li docaine-antacid (MAGIC MOUTHWASH) 1:1:1 Swish and spit 15 mL every 4 (four) hours as needed. Active levETIRAcetam (KEPPRA) 100 mg/mL solution Administer 200 mg via gastric tube 3 (three) times a day as needed (seizures). Active clotrimazole-betam ethasone (LOTRISONE) 1-0.05 % cream Apply 1 Application topically 2 (two) times a day as needed (rash or concerns for yeast infection). Apply to affected areas. Active nystatin-triamcino lone (MYCOLOG II) 100,000 Unit/g-0.1 % cream Apply 1 Application topically 2 (two) times a day as needed (fungal infection). Apply to affected areas. Active olopatadine (PATADAY) 0.2 % ophthalmic solution Administer 1 drop into both eyes 4 (four) times a day as needed for allergies (redness). Active silver sulfADIAZINE (SILVADENE, SSD) 1 % cream Apply 1 Application topically daily as needed for wound care. Apply to skin break down in groin. Active zinc oxide 40 % ointment Apply 1 g topically 2 (two) times a day. Apply to GT site for skin protectant. Active simethicone (MYLICON,GAS-X) 125 mg capsule Take 125 mg by mouth every 6 (six) hours as needed for flatulence (bloating). Active torsemide (DEMADEX) 10 mg tablet Administer 10 mg via gastric tube daily as needed (edema). Active cannabidioL (EPIDIOLEX) 100 mg/mL solution Administer 400-600 mg via gastric tube 2 (two) times a day. 400 mg AM, 600 mg PM Active azelastine (ASTEPRO) 205.5 mcg/spray (0.15 %) nasal spray Administer 1 spray into each nostril daily. 11 mL 02/26/2023 Active hydrocortisone (HYTONE) 2.5 % cream Apply 1 Application topically daily as needed (itching). 20 g 02/26/2023 Active clotrimazole (FUNGI CURE) 1 % external solution Apply 1 Application topically daily as needed (rash on head). 15 mL 02/26/2023 Active pseudoephedrine (Sudafed) 30 mg tablet Take 30 mg by mouth every 6 (six) hours as needed for congestion. 01/27/2022 Active acetic acid 0.25 % irrigation (sterile) Irrigate with as directed 2 (two) times a day. For groin to perirectal/perinea l area. 1000 mL 03/13/2023 Active zinc oxide (DESITIN) 13 % cream Apply 1 Application topically as needed (skin cares). Apply to irritated perineal/jennifer-rect al skin. 136 g 03/13/2023 Active nystatin (MYCOSTATIN) 100,000 unit/gram cream Apply 1 Application topically 2 (two) times a day. Apply to groin irritation. 30 g 03/13/2023 Active nystatin (NYSTOP) 100,000 unit/gram powder Apply 1 Application topically 3 (three) times a day. Apply to groin irritation. 60 g 03/13/2023 Active multivitamin with minerals liquid 10 mL by g-tube route. 06/26/2022 Active gabapentin (NEURONTIN) 300 mg capsule Take 300 mg by mouth 3 (three) times a day as needed (pain). 07/28/2021 Active loperamide (IMODIUM A-D) 1 mg/7.5 mL liquid Take 15 mL by mouth daily as needed. 11/27/2022 Active benzoyl peroxide (BREVOXYL) 4 % external liquid Apply 1 Application topically. Active clindamycin (CLEOCIN T) 1 % external solution Apply 1 Application topically. 08/11/2021 Active mineral oil enema Insert 1 enema into the rectum daily as needed. 10/09/2022 Active polyethylene glycol (MIRALAX) 17 gram/dose oral powder Administer 17 g via gastric tube daily as needed for constipation. 510 g 04/05/2023 Active silver nitrate (ARZOL) 75-25 % topical stick Apply 1 Application topically as needed (for treatment of granulation tissue). Use every 3-4 days as needed as educated by HEN nurse 100 Stick 06/25/2023 06/24/2024 Active zaleplon (SONATA) 5 mg capsule Take 1 capsule (5 mg total) by mouth See Admin Instructions. Take as needed, if unable to sleep during sleep study. May repeat if needed. Allow a minimum of 4 hours prior to driving after last dose. If drowsy after sleep study do not drive until adequately alert. 2 capsule 07/08/2023 Active naloxone (NARCAN) 4 mg/actuation nasal spray Administer 1 spray (4 mg total) into one nostril as needed for reversal. Use 1 spray in 1 nostril. Repeat with second device in other nostril after 2-3 minutes if no or minimal response. 2 each 12/30/2023 Active lamoTRIgine (LaMICtaL) 200 mg tablet Administer 1 tablet (200 mg total) via gastric tube 3 (three) times a day. 350 mg morning, 350 mg at 2pm, 300 mg at bedtime. (has both 100 mg & 200 mg for the total of 350mg and 300 mg doses 270 tablet 3 12/30/2023 12/29/2024 Active rufinamide (BANZEL) 200 mg tablet Administer 1 tablet (200 mg total) via gastric tube every morning. 90 tablet 3 12/30/2023 12/29/2024 Active HYDROcodone-acetam inophen (NORCO) 10-325 mg per tabletIndications: Chronic Pain/Nonacute Pain Take 0.5 tablets by mouth every 6 (six) hours as needed for severe pain or score 7-10 of 10 Indication: Chronic Pain/Nonacute Pain. 12/30/2023 Active nystatin (NYSTOP) 100,000 unit/gram powder Apply 1 Application topically 3 (three) times a day. Apply to areas of intertrigo 60 g 12/30/2023 Active nystatin (NYSTOP) 100,000 unit/gram powder Apply 1 Application topically 3 (three) times a day. Apply to areas of intertrigo 60 g 12/30/2023 Active nystatin (MYCOSTATIN) 100,000 unit/gram cream Apply 1 Application topically 2 (two) times a day. Apply to areas of intertrigo 30 g 12/30/2023 Active Active Problems Problem Noted Date Diagnosed Date Change Mental Status 12/27/2023 Apnea Sleep Obstructive 12/26/2023 Hyponatremia 12/26/2023 Hematuria 03/19/2023 Cyst Renal 03/19/2023 Aspiration Pneumonia Secondary to Procedure 02/2023 Cough Acute 03/12/2023 Rash Groin 03/12/2023 Jejunostomy Status Post 03/12/2023 Delirium (not otherwise specified) 03/12/2023 Weakness General 03/11/2023 Lethargy 03/11/2023 Acute Cystitis With Hematuria 03/11/2023 Anemia Macrocytic 03/11/2023 Severe Sepsis With Septic Shock 02/23/2023 Nephrolithiasis 02/23/2023 Brain Stem Stroke Syndrome 12/01/2020 Cannabis Use Unspecified Uncomplicated Intellectual Disability Profound 12/01/2020 Dysphagia 06/26/2020 Aftercare Feeding Tube 06/26/2020 Overgrowth Bacterial Small Bowel 06/19/2020 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 Gastrostomy Status 09/27/2018 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, other, specified, in remission lymphoblastic leukemia Ulcer Skin Chronic 01/31/2014 Overview: Pressure Ulcer, Other Site Cerebrovascular Disease 01/31/2014 Overview: lateral medullary stroke Seizure 11/21/2013 Overview: Seizure (SZ) NOS Reflux Esophageal 12/07/2011 Resolved Problems Problem Noted Date Diagnosed Date Resolved Date Hypoxia Sleep Related 06/27/20202019 Hypokalemia 06/27/2020 06/30/2020 Pneumonia 06/25/2020 06/30/2020 Encounters Date Type Department Care Team Description 02/02/2024 10:40 AM CDT - 02/02/2024 11:59 PM CDT Hospital Encounter Department of Laboratory Medicine in [place], [place] [address] [place] [id number] Jose Martin Eaton M.D. 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 Snoring (Primary Dx); Hypoxemia; Stroke Cerebrovascular Accident Personal History 12/30/2023 Orders Only Department of Nutrition and Diabetes Education in [place], [place] [address] [place] [phone] Na Brennan, RDN, LD Herndon Gastaut Syndrome (HCC) (Primary Dx); Gastrojejunostomy Percutaneous Status Post ; Dietary Counseling And Surveillance For Enteral Nutrition 12/29/2023 12:52 PM CDT Anesthesia Event Division of Gastroenterology in [place] [id number] [place] [phone] Cruz Edmonds APRN, ADVOCACY DIRECTOR 12/29/2023 11:05 AM CDT - 12/29/2023 11:59 PM CDT Hospital Encounter Department of Radiology, [facility] in [address] [phone] Pedro Pablo Kline M.D. Discharge Disposition: Home or Self Care 12/27/2023 12:50 AM CDT Ancillary Procedure Department of Pulmonary and CC Medicine 12/27/2023 Orders Only [facility] in [place], [place] [address] [place] [phone] Srinath Rodriguez M.D. 12/26/2023 4:16 PM CDT - 12/30/2023 12:14 PM CDT Hospital Encounter [facility], [facility], [facility], Sixth Floor [address] [place] [phone] Jamia Lozano M.D. Andria Shaffer M.B.BMaySMay, MElsy. Wes Person M.B.BMayS. Feliciano Alejandre M.D., Ph.D. Pneumonia (Primary Dx); Sepsis (HCC); Aftercare Feeding Tube; Dehydration; Diarrhea; Acidosis Lactic; Dysphagia Oropharyngeal Phase [R13.12] Discharge Disposition: Home or Self Care 12/26/2023 Nurse Triage Department of Family Medicine, [facility], in [place], [place] [address] [place] [phone] Poonam Jasmine R.N. Vomiting; Tube Problem 12/20/2023 Documentation Division of Endocrinology in [place], [place] [address] [place] [phone] Anastasia Chaney R.N. Scheduling 12/20/2023 Orders Only Division of Endocrinology in [place], [place] [address] [place] [phone] Anastasia Chaney R.N. Dietary Counseling And Surveillance For Enteral Nutrition (Primary Dx) 12/20/2023 Clinical Communication Division of Endocrinology in [place], [place] [address] [place] [phone] Provider, Unknown Follow-up Orders from Last 3 Months Immunizations Name Administration Dates Next Due DTP 02/11/1991, 2,1980,1979,1980 Influenza, Unspecified 05/26/2017,2015,06/27/2015,2013,06/29/2012,07/07/2010,06/26/2008,1 ,07/12/2006,07/16/2005, 004,08/27/2003 MMR 05/14/1981 PCV13 01/13/2016 PPSV23 09/20/2006 SARS-COV-2 (COVID-19) - MODERNA(Discontinued) 04/28/2022,06/11/2021 Td (Adult), adsorbed 07/07/2010 Family History Medical History Relation Name Comments Gestational diabetes Daughter neeta hilario Sleep apnea Father etta a yanelis Ulcerative colitis Father etta a yanelis Diabetes type II Grandfather Pernicious anemia Grandfather CABG - Coronary artery bypass graft Grandmother mater nal COPD Grandmother maternal Heart failure Grandmother maternal Arthritis Maternal Grandfather teresa aguirre Coronary artery disease Maternal Grandmother Teresa painter Depression Maternal Grandmother Teresa leon Hypertension Maternal Grandmother Teresa leon Sleep apnea Maternal Grandmother Teresa leon Transient ischemic attack Maternal Grandmother Teresa adkins chinocencio Anemia Mother Ke hilario Anxiety disorder Mother Ke hilario Hyperlipidemia Mother Ke hilario Leukemia Mother Ke hilario Migraines Mother Ke hilario Diabetes Paternal Grandfather Suleman aguirre Stroke Paternal Grandfather Suleman aguirre Dementia Paternal Grandmother shauna hilario Gestational diabetes Sister 1 neeta hilario Thyroid disease Sister 2 etta hilario Relation Name Status Comments Daughter neeta hilario Father etta a yanelis Grandfather Grandmother maternal Maternal Grandfather teresa aguirre Maternal Grandmother Teresa edward Mother Ke hilario Paternal Grandfather Suleman aguirre Paternal Grandmother shauna hilario Sister 1 neeta hilario Sister 2 etta hilario Social History Tobacco Use Types Packs/Day Years Used Date Smoking Tobacco: Never Smokeless Tobacco: Never Alcohol Use Standard Drinks/Week Comments Never 0 (1 standard drink = 0.6 oz pur e alcohol) Humiliation, Afraid, Rape, and Kick questionnair e Answer Date Recorded Within the last year, have y ou been afraid of your partner or ex-partner? No 03/10/2023 Within the last year, have y ou been humiliated or emotionally abused in other ways by your partner or ex-partner? No Within the last year, have y ou been kicked, hit, slapped, or otherwise physically hurt by your partner or ex-partner? No 03/10/2023 Within the last year, have y ou been raped or forced to have any kind of sexual activity by your partner or ex-partner? No 03/10/2023 Social Connection and Isolation Panel [NHANES] A nswer Date Recorded In a typical week, how many times do you talk on the phone with family, friends, or neighbors? Never 12/11/2021 How often do you get togethe r with friends or relatives? Patient declined 12/11/2021 How often do you attend jainism or moravian serv ices? Patient declined 12/11/2021 Do you belong to any clubs o r organizations such as jainism groups, unions, fraternal or athletic groups, or school groups? No 12/11/2021 How often do you attend meet ings of the clubs or organizations you belong to? Never 12/11/2021 Are you , , di vorced, , never , or living with a partner? Never 12/11/2021 AUDIT-C Answer Date Recorded Q1: How often do you have a drink containing alc ohol? Never 12/11/2021 Average Number of Drinks Not on file 022 Frequency of Binge Drinking Not on file 11/13 Overall Financial Resource Strain (CARDIA) Answe r Date Recorded How hard is it for you to pa y for the very basics like food, housing, medical care, and heating? Not hard at all 12/11/2021 [facility] - Occupational Stress Questionnaire Answer Date Recorded Do you feel stress - tense, restless, nervous, or anxious, or unable to sleep at night because your mind is troubled all the time - these days? Patient declined 12/11/2021 Exercise Vital Sign Answer Date Recorde d On average, how many days pe r week do you engage in moderate to strenuous exercise (like a brisk walk)? Patient declined On average, how many minutes do you engage in exercise at this level? Patient declined 12/11/2021 Hunger Vital Sign Answer Date Recorded Within the past 12 months, y ou worried that your food would run out before you got the money to buy more. Never true 03/10/20 23 Within the past 12 months, t he food you bought just didn't last and you didn't have money to get more. Never true 03/10/2023 PRAPARE - Transportation Answer Date Re corded In the past 12 months, has l ack of transportation kept you from medical appointments or from getting medications? No 12/11/2021 Lack of Transportation (Non-Medical) Not on file 12/11/2021 Housing Stability Vital Sign Answer Edil e Recorded In the last 12 months, was t here a time when you were not able to pay the mortgage or rent on time? Patient refused 12/12/19 22 In the last 12 months, how many places have you lived? 1 12/11/2021 In the last 12 months, was t here a time when you did not have a steady place to sleep or slept in a senior care (including now)? No 12/11/2021 Nutrition Answer Date Recorded Nutrition: EVOO Fat Source Yes 03/10 On average, how many serving s of fruits and vegetables do you eat per day (serving size is equal to 1 cup or approximately the size of a tennis ball)? 3-5 03/10/2023 Dental Answer Date Recorded Dental: Regular Dentist Yes 11/01/19 Employment Answer Date Recorded Employment status N/A 12/11/2021 Sex and Gender Information Value Date Recorded Sex Assigned at Male 12/11/2021 2:11 PM CDT Gender Identity Male 12/11/2021 1:44 PM CDT Sexual Orientation Straight 12/11/2021 2: 11 PM CDT Last Filed Vital Signs Vital Sign Reading Time Taken Comments Blood Pressure 115/98 12/30/2023 11:45 AM CDT Pulse 86 12/30/2023 11:45 AM CDT Temperature 36.9 ??C (98.4 ??F) 12/30/2023 1 1:45 AM CDT Respiratory Rate 16 12/30/2023 11:4 5 AM CDT Oxygen Saturation 92% 12/30/2023 11: 45 AM CDT Inhaled Oxygen Concentration - - Weight 70.2 kg (154 lb 12.2 oz) 12/30/2023 8:00 AM CDT Height 156 cm (5' 1.42) 12/27/2023 9:09 AM CDT Body Mass Index 28.85 12/27/2023 9:09 AM CDT Plan of Treatment Health Maintenance Due Date Last Done Comments HIV Screening 1980 Hepatitis C Screening 1980 Lipid (Cholesterol) Screening 1980 Hepatitis A Vaccines (1 of 2 - Risk 2-dose series) 02/15/1999 Hepatitis B Vaccines (1 of 3 - 19+ 3-dose series) 02/15/1999 DTaP,Tdap,and Td Vaccines (8 - Td or Tdap) 07/10/2020 07/10/2010, 07/07/2010, 02/11/1991, Additional history exists COVID-19 Vaccine ( season) 2023 04/28/2022, 06/11/2021, 12/18/2020, Additional history exists Influenza Vaccine (#1) 2023 , 06/04/2021, 05/28/2020, Additional history exists Depression Screening (Annual PHQ-2) 09/13/2023 Creatinine Level (Kidney Function Test) 02/01/2025 02/02/2024, 12/30/2023, 12/29/2023, Additional history exists Potassium Level 02/01/2025 02/02/2024, 12/12, 12/29/2023, Additional history exists Sodium Level 02/01/2025 02/02/2024, 12/12, 12/29/2023, Additional history exists Pneumococcal vaccine (0-64 years) Aged Out 01/13/2016, 09/20/2006 No longer eligibl e based on patient's age to complete this topic Zoster Vaccines Completed 02/14/2019, 020 09/2018, 07/28/2018 Glucose Test for Med Monitoring Discontinued 02/02/2024, 12/30/2023, 12/29/2023, Additional history exists HPV Vaccines Aged Out No longer eligi ble based on patient's age to complete this topic Medical Devices Implanted Type Area Software [employer] Architect Device Identifier Shelf Expiration Date Model / Serial / Lot Stnt Uret Inl 6fx24 - Sna - [id number] Implanted:Qty : 1 on 04/05/2023 by Erika Londono M.D. at [facility] Ureteral Stent [employer] [id number] 04/28/2027 [id number] / NA / [id number] Explanted Type [employer] Architect Device Identifier Shelf Expiration Date Model / Serial / Lot Stnt Uret Inl 7fx24 - [id number] Implanted:Qty : 1 on 02/22/2023 by Danita Munoz M.D. at [facility] Explanted:Qty : 1 on 04/05/2023 by Erika Londono M.D. 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) LEVETIRACETAM LEVEL, S Routine 02/02/2024 11:03 AM CDT 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) RUFINAMIDE, S Routine 02/02/2024 11:03 AM CDT 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) COMPREHENSIVE METABOLIC PANEL, S/P Routine 02/02/2024 11:03 AM CDT Medication Therapy Sugar Grinder Not Anticoagulant RETICULOCYTES, B Routine 02/02/2024 11:03 AM CDT Medication Therapy Group Home Not Anticoagulant CLOBAZAM AND METABOLITE Routine 02/02/2024 11:03 AM CDT 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 PERCUTANEOUS ENDOSCOPIC GASTROSTOMY/JEJUNOS CLAUDINE Routine 12/29/2023 1:23 PM CDT FL FLUORO LESS THAN 1 HOUR RAD - Routine (most inpatients and all outpatients) 12/29/2023 1:19 PM CDT BASIC METABOLIC PANEL, S/P Routine 12/29/2023 4:01 AM CDT CBC WITH DIFFERENTIAL, B Routine 12/29/2023 4:01 AM CDT PATIENT STATUS Timed 12/28/2023 11:11 PM CDT VENOUS BLOOD GAS W/O COOX Timed 12/28/2023 11:11 PM CDT PATIENT STATUS STAT 12/28/2023 4:39 PM CDT VENOUS BLOOD GAS W/COOX, B STAT 12/28/2023 4:39 PM CDT VBG & LYTES CG8+, POCT, B STAT 12/28/2023 3:19 PM CDT EEG ROUTINE - AWAKE AND SLEEP Routine 12/28/2023 7:29 AM CDT CBC WITH DIFFERENTIAL, B Routine 12/28/2023 6:42 AM CDT BASIC METABOLIC PANEL, S/P Routine 12/28/2023 6:42 AM CDT GLUCOSE POCT, B Routine 12/28/2023 6:26 AM CDT ECG Routine 12/27/2023 2:34 PM CDT PATIENT STATUS STAT 12/27/2023 2:33 PM CDT VENOUS BLOOD GAS W/COOX, B STAT 12/27/2023 2:33 PM CDT PATIENT STATUS STAT 12/27/2023 10:30 AM CDT VENOUS BLOOD GAS W/O COOX STAT 12/27/2023 10:30 AM CDT LACTATE, B/P STAT 12/27/2023 10:29 AM CDT PATIENT STATUS Routine 12/27/2023 1:34 AM CDT VENOUS BLOOD GAS W/O COOX Routine 12/27/2023 1:34 AM CDT CREATININE WITH EGFR, S/P Routine 12/27/2023 1:34 AM CDT CBC WITH DIFFERENTIAL, B Routine 12/27/2023 1:34 AM CDT COMPREHENSIVE METABOLIC PANEL, S/P Routine 12/27/2023 1:34 AM CDT PULMONARY AND CC MEDICINE IMAGE EXAM Routine 12/27/2023 12:50 AM CDT LACTATE, POCT, B Routine 12/26/2023 11:54 PM CDT VBG & LYTES CG8+, POCT, B Routine 12/26/2023 11:50 PM CDT FEEDING TUBE REPLACEMENT Routine 12/26/2023 9:36 PM CDT LACTATE, B/P Timed 12/26/2023 9:01 PM CDT IFLU A, B, SARS COV-2, PCR, RAPID,V STAT 12/26/2023 7:50 PM CDT BACTERIAL CULTURE, AEROBIC + SUSC, URINE STAT 12/26/2023 7:[address] ABDOMEN PELVIS WITH IV CONTRAST RAD - Semiurgent (Fast; most ED patients; some inpatients) 12/26/2023 7:35 PM CDT DIPSTICK, U STAT 12/26/2023 7:07 PM CDT PH, U STAT 12/26/2023 7:07 PM CDT OSMOLALITY, U STAT 12/26/2023 7:07 PM CDT MICROSCOPIC AUTOMATED STAT 12/26/2023 7:07 PM CDT URINALYSIS WITH MICROSCOPIC STAT 12/26/2023 7:07 PM CDT HC URINALYSIS AUTO WO MICRO Routine 12/26/2023 7:06 PM CDT DX CHEST PORTABLE 1 VIEW RAD - Semiurgent (Fast; most ED patients; some inpatients) 12/26/2023 6:21 PM CDT BACTERIA / SHANAE CULTURE, BLOOD STAT 12/26/2023 6:06 PM CDT BACTERIA / SHANAE CULTURE, BLOOD STAT 12/26/2023 5:50 PM CDT HEPATIC FUNCTION PANEL, S STAT 12/26/2023 5:49 PM CDT LIPASE, S/P STAT 12/26/2023 5:49 PM CDT LACTATE FOR SEPSIS WITH REFLEX STAT 12/26/2023 5:49 PM CDT PROTHROMBIN TIME (PT), P STAT 12/26/2023 5:49 PM CDT CBC WITH DIFFERENTIAL, B STAT 12/26/2023 5:49 PM CDT BASIC METABOLIC PANEL, S/P STAT 12/26/2023 5:49 PM CDT VITAMIN B12 ASSAY, S Routine 12/26/2023 5:48 PM CDT CYSTATIN C WITH EGFR Routine 12/26/2023 5:48 PM CDT LACTATE, B/P STAT 12/26/2023 4:33 PM CDT GLUCOSE POCT, B Routine 12/26/2023 4:32 PM CDT from Last 3 Months Results * (ABNORMAL) Clobazam and Metabolite (02/02/2024 11:03 AM CDT) [facility] Clobazam 313.0(H) 30 - 300 ng/mL 02/04/2024 3:01 AM CDT [facility] N-desmethylclobazam >58322(H) 300 - 3000 ng/mL 02/04/2024 3:01 AM CDT [facility] Comment: ----ADDITIONAL INFORMATION---- This test was developed and its performance characteristics determined by [facility] in a manner consistent with CLIA requirements. This test has not been cleared or approved by the U.S. Food and Drug Administration. Blood (Blood, Venous) 02/02/2024 11:03 AM CDT 02/03/2024 2:51 PM CDT Jose Martin Eaton M.D. LAB BLOOD ADD-ON Performing Organization Address City/[facility]/ZIP Co de Phone Number [facility] [address] [place] [address] [facility] [address] [place] [address] [place] [address] * Rufinamide, S (02/02/2024 11:03 AM CDT) Pathologist [facility] Rufinamide, S 9.0 5.0 - 30.0 mcg/mL 02/03/2024 1:20 PM CDT [facility] Comment: ----ADDITIONAL INFORMATION---- This test was developed and its performance characteristics determined by [facility] in a manner consistent with CLIA requirements. This test has not been cleared or approved by the U.S. Food and Drug Administration. Blood (Blood, Venous) 02/02/2024 11:03 AM CDT 02/03/2024 7:47 AM CDT Jose Martin Eaton M.D. LAB BLOOD NON ADD-ON Performing Organization Address [facility]/ZIP Co de Phone Number [facility] [address] [place] [address] [facility] [address] [place] [address] [place] [address] * Hepatic Function Panel (02/02/2024 11:03 AM CDT) Only the most recent of2 resultswithin the time period is included. Bilirubin, Total, P 0.5 0.0 - 1.2 mg/dL 02/02/2024 2:18 PM CDT [facility] Bilirubin, Direct, P <0.2 0.0 - 0.3 mg/dL 02/02/2024 2:18 PM CDT [facility] Aspartate Aminotransferase (AST), P 27 8 - 48 U/L 02/02/2024 2:18 PM CDT [facility] Alanine Aminotransferase (ALT), P 25 7 - 55 U/L 02/02/2024 2:18 PM CDT [facility] Alkaline Phosphatase, P 127 40 - 129 U/L 02/02/2024 2:18 PM CDT [facility] Albumin, P 4.6 3.5 - 5.0 g/dL 02/02/2024 2:18 PM CDT [facility] Protein, Total, P 7.9 6.3 - 7.9 g/dL 02/02/2024 2:18 PM CDT [facility] Blood (Blood, Venous) 02/02/2024 11:03 AM CDT 02/02/2024 1:22 PM CDT Jose Martin Eaton M.D. LAB BLOOD ADD-ON Performing Organization Address City/[facility] Co de Phone Number [facility] [address] [place] [address], [place] OW[facility] [place] [address] [place] [address] * (ABNORMAL) Felbamate (Felbatol) Level (02/02/2024 11:03 AM CDT) Felbamate (Felbatol), S 145.7(H) 30.0 - 80.0 mcg/mL 02/04/2024 3:14 PM CDT [facility] Comment: ----ADDITIONAL INFORMATION---- This test was developed and its performance characteristics determined by [facility] in a manner consistent with CLIA requirements. This test has not been cleared or approved by the U.S. Food and Drug Administration. Blood (Blood, Venous) 02/02/2024 11:03 AM CDT 02/03/2024 7:41 AM CDT Jose Martin Eaton M.D. LAB BLOOD NON ADD-ON [facility] [address] [place] [address] [facility] [address] [place] [address] [place] [address] * (ABNORMAL) Levetiracetam Level (02/02/2024 11:03 AM CDT) Levetiracetam, S 71.9(H) 10.0 - 40.0 mcg/mL 02/03/2024 11:39 AM CDT [facility] Comment: ----ADDITIONAL INFORMATION---- This test was developed and its performance characteristics determined by [facility] in a manner consistent with CLIA requirements. This test has not been cleared or approved by the U.S. Food and Drug Administration. Blood (Blood, Venous) 02/02/2024 11:03 AM CDT 02/03/2024 7:48 AM CDT Jose Martin Eaton M.D. LAB BLOOD NON ADD-ON Performing Organization Address [facility] de Phone Number [facility] [address] [place] [address] [facility] [address] [place] [address] [place] [address] * Lamotrigine Level (02/02/2024 11:03 AM CDT) Lamotrigine, S 13.9 3.0 - 15.0 mcg/mL 02/03/2024 9:35 AM CDT [facility] Comment: ----ADDITIONAL INFORMATION---- This test was developed and its performance characteristics determined by [facility] in a manner consistent with CLIA requirements. This test has not been cleared or approved by the U.S. Food and Drug Administration. Blood (Blood, Venous) 02/02/2024 11:03 AM CDT 02/03/2024 7:47 AM CDT Jose Martin Eaton M.D. LAB BLOOD NON ADD-ON Performing Organization Address [facility] de Phone Number [facility] [address] [place] [address] [facility] [address] [place] [address] [place] [address] * Reticulocytes (02/02/2024 11:03 AM CDT) Reticulocytes, B 1.76 0.60 - 2.71 % 02/02/2024 3:18 PM CDT [facility] Absolute Reticulocyte 63.7 30.4 - 110.9 x10(9)/L 02/02/2024 3:18 PM CDT [facility] Blood (Blood, Venous) 02/02/2024 11:03 AM CDT 02/02/2024 3:00 PM CDT Jose Martin Eaton M.D. LAB BLOOD ADD-ON [facility] [address] [place] [address], [facility] [address] [place] [address] * (ABNORMAL) CBC with Differential, Blood (02/02/2024 11:03 AM CDT) Only the most recent of6 resultswithin the time period is included. Hemoglobin 12.5(L) 13.2 - 16.6 g/dL 02/02/2024 11:16 AM CDT FB60 Hematocrit 36.5(L) 38.3 - 48.6 % 02/02/2024 11:16 AM CDT FB60 Erythrocytes 3.67(L) 4.35 - 5.65 x10(12)/L 02/02/2024 11:16 AM CDT FB60 MCV 99.5(H) 78.2 - 97.9 fL 02/02/2024 11:16 AM CDT FB60 RBC Distrib Width 12.3 11.8 - 14.5 % 02/02/2024 11:16 AM CDT FB60 Platelet Count 138 135 - 317 x10(9)/L 02/02/2024 11:16 AM CDT FB60 Leukocytes 3.1(L) 3.4 - 9.6 x10(9)/L 02/02/2024 11:16 AM CDT FB60 Neutrophils 0.97(L) 1.56 - 6.45 x10(9)/L 02/02/2024 11:16 AM CDT FB60 Lymphocytes 1.45 0.95 - 3.07 x10(9)/L 02/02/2024 11:16 AM CDT FB60 Monocytes 0.38 0.26 - 0.81 x10(9)/L 02/02/2024 11:16 AM CDT FB60 Eosinophils 0.24 0.03 - 0.48 x10(9)/L 02/02/2024 11:16 AM CDT FB60 Basophils <0.04 0.01 - 0.08 x10(9)/L 02/02/2024 11:16 AM CDT FB60 Blood (Blood, Venous) 02/02/2024 11:03 AM CDT 02/02/2024 11:03 AM CDT Jose Martin Eaton M.D. LAB BLOOD ADD-ON [facility] [address] [place] [address], [facility] FB60 [facility] [place] [address] [place] [address] * (ABNORMAL) Comprehensive Metabolic Panel (02/02/2024 11:03 AM CDT) Only the most recent of2 resultswithin the time period is included. Potassium, P 4.6 3.6 - 5.2 mmol/L 02/02/2024 2:18 PM CDT [facility] Sodium, P 128(L) 135 - 145 mmol/L 02/02/2024 2:18 PM CDT [facility] Chloride, P 93(L) 98 - 107 mmol/L 02/02/2024 2:18 PM CDT [facility] Bicarbonate, P 26 22 - 29 mmol/L 02/02/2024 2:18 PM CDT [facility] Anion Gap, P 9 7 - 15 02/02/2024 2:18 PM CDT [facility] BUN (Blood Urea Nitrogen), P 9 8 - 24 mg/dL 02/02/2024 2:18 PM CDT [facility] Creatinine 0.36(L) 0.74 - 1.35 mg/dL 02/02/2024 2:18 PM CDT [facility] Estimated GFR (eGFR) >90 >=60 mL/min/BS A 02/02/2024 2:18 PM CDT [facility] Comment: Estimated GFR calculated using the 2020 CKD_EPI creatinine equation. Calcium, Total, P 9.3 8.6 - 10.0 mg/dL 02/02/2024 2:18 PM CDT [facility] Glucose, P 76 70 - 140 mg/dL 02/02/2024 2:18 PM CDT [facility] Protein, Total, P 7.9 6.3 - 7.9 g/dL 02/02/2024 2:18 PM CDT [facility] Albumin, P 4.6 3.5 - 5.0 g/dL 02/02/2024 2:18 PM CDT [facility] Aspartate Aminotransferase (AST), P 27 8 - 48 U/L 02/02/2024 2:18 PM CDT [facility] Alkaline Phosphatase, P 127 40 - 129 U/L 02/02/2024 2:18 PM CDT [facility] Alanine Aminotransferase (ALT), P 25 7 - 55 U/L 02/02/2024 2:18 PM CDT [facility] Bilirubin, Total, P 0.5 0.0 - 1.2 mg/dL 02/02/2024 2:18 PM CDT [facility] Blood (Blood, Venous) 02/02/2024 11:03 AM CDT 02/02/2024 1:22 PM CDT Jose Martin Eaton M.D. LAB BLOOD ADD-ON [facility] [address] [place] [address], [facility] OWAT [facility] [place] [address], [place] [address] * [place] Swallow Function with Video and Speech or OT (12/30/2023 9:29 AM CDT) Anatomical Region Laterality Modality Gastro Intestinal, Abdominal RST LOS, Abdominal ARZ LOS, Abdominal FLA LOS N/A Digital Radiography Impressions 12/30/2023 10:58 AM CDT Fluoroscopic video swallow study was performed in conjunction with speech therapy, using thin liquid, mildly thickened, moderately thickened, and solid consistencies of barium. No laryngeal penetration or aspiration with the observed consistencies of barium. Vallecular residuals with solid barium consistency. Please see speech pathology report for further details and recommendations. Narrative 12/30/2023 10:58 AM CDT EXAM: FL SWALLOW FUNCTION WITH VIDEO AND SPEECH OR OT FOR RST COMPARISON: video swallow 06/26/2020. Procedure Note Bob Ladd M.D. - 12/30/2023 EXAM: FL SWALLOW FUNCTION WITH VIDEO AND SPEECH OR OT FOR RST COMPARISON: video swallow 06/26/2020. IMPRESSION: Fluoroscopic video swallow study was performed in conjunction with speechtherapy, using thin liquid, mildly thickened, moderately thickened, andsolid consistencies of barium. No laryngeal penetration or aspiration withthe observed consistencies of barium. Vallecular residuals with solid bariumconsistency. Please see speech pathology report for further details andrecommendations. Pedro Pablo Kline M.D. G FLUOROSCOPY PROC EDURES * (ABNORMAL) Basic Metabolic Panel (12/30/2023 3:21 AM CDT) Only the most recent of4 resultswithin the time period is included. Potassium, S 3.8 3.6 - 5.2 mmol/L 12/30/2023 4:57 AM CDT DTL Sodium, S 138 135 - 145 mmol/L 12/30/2023 4:57 AM CDT DTL Chloride, S 101 98 - 107 mmol/L 12/30/2023 4:57 AM CDT DTL Bicarbonate, S 28 22 - 29 mmol/L 12/30/2023 4:57 AM CDT DTL Anion Gap 9 7 - 15 12/30/2023 4:57 AM CDT DTL BUN (Blood Urea Nitrogen), S 9 8 - 24 mg/dL 12/30/2023 4:57 AM CDT DTL Creatinine 0.35(L) 0.74 - 1.35 mg/dL 12/30/2023 4:57 AM CDT DTL Estimated GFR (eGFR) >90 >=60 mL/min/BSA 12/30/2023 4:57 AM CDT DTL Comment: Estimated GFR calculated using the 2020 CKD_EPI creatinine equation. Calcium, Total, S 8.6 8.6 - 10.0 mg/dL 12/30/2023 4:57 AM CDT DTL Glucose, S 86 70 - 140 mg/dL 12/30/2023 4:57 AM CDT DTL Blood (Blood, Venous) 12/30/2023 3:21 AM CDT 12/30/2023 4:37 AM CDT Ralph Neil M.D. LAB BLOOD ADD-ON [facility] [address] [place] [address], [facility] DTL [facility] [address] [place] [address] * Non-Endoscopic Tube Procedure (12/29/2023 1:23 PM CDT) 12/29/2023 1:23 PM CDT Impressions [facility] - 12/29/2023 1:52 PM CDT Post-op Diagnoses: ? - The PEG-J tube was dislodged and was removed and replaced with a 3.5 ? cm long, 22 Fr [employer] FARIHA-SMALL Low-profile PEG-J gastrostomy tube. ? - No specimens collected. Narrative [facility] - 12/29/2023 1:52 PM CDT Gary 6 GI GI Patient Name: Say Hilario Date of : 1980 Age: 43 Procedure Date: 12/29/2023 Procedure: ? Non-endoscopic Tube Procedure Providers: ? Cosme Hutchinson MD, Gallo Serra (Fellow) Referring Provider: ?Pedro Pablo Kline Pre-op Diagnoses: ?Routine exchange PEG-J tube Recommendation: ? - The patient will be observed post-procedure, until all discharge ? criteria are met. ? - May use tube immediately . Please follow nursing guidelines in regards ? to tube and the site. ? - Tube will need to be replaced in 3 months (sooner if needed) ? - If at anytime questions or concerns related to tube site or tube call ? [phone] Wednesday - Wednesday 7;30 am-4:30 pm or after hours, weekends, ? holidays call [facility] dust collector operator [phone] ask them to page ? [phone] and wait for MD to answer. May need to repeat call if they ? don't answer they could be busy doing procedure. ? - Return patient to hospital medel for ongoing care. Findings: ? The gastrostomy tube required removal because it was dislodged. The ? existing PEG-J site was cleaned. Contrast under fluoroscopy documented ? the old tube to be in good position. A guidewire was advanced through ? the existing tube. The tip of the guidewire was confirmed ? fluoroscopically. The existing tube was removed while retaining the ? guidewire in position. The existing PEG-J balloon was deflated and by ? using traction, removal was easily accomplished. At the request of the ? patient's family there was hopes of going to a low-profile tube. The ? tract was measured to be 3.5cm long. A 3.5cm long, 22 Fr [employer] FARIHA-SMALL ? Low-profile PEG-J tube was lubricated and placed into the existing ? gastrostomy port over the guidewire. A total of 10 mL saline was used to ? distend the balloon that was previously tested and the guidewire was ? removed. The final tension and compression of the abdominal wall by the ? gastrostomy tube and external bumper were checked. Placement of the ? jport into the jejunum was confirmed using fluoroscopy with contrast. ? The tube was capped, and the tube site was cleaned and dressed. Procedural Details: ? The patient was seen, evaluated, history reviewed, airway and heart-lung ? exams were performed by licensed provider and were satisfactory for ? planned level of sedation care. ? The risks, benefits and alternatives for the procedure and sedation were ? discussed and informed consent was obtained. A procedural pause was ? conducted in the presence of assisting personnel to verify the correct ? patient identity and procedure to be performed. Throughout the ? procedure, the patient's blood pressure, pulse, and oxygen saturations ? were monitored continuously. The procedure was accomplished without ? difficulty. The patient tolerated the procedure well. Estimated Blood Loss: ?Estimated blood loss: none. Complications: ? No immediate complications. Attending Participation: I was present and participated during the entire ? procedure, including non-small portions. Cosme Hutchinson MD 12/29/2023 1:52:17 PM This report has been signed electronically. Number of Addenda: 0 Pedro Pablo Kline M.D. GI PROCEDURE ORDERAB LES Performing Organization Address [facility] Co de Phone Number [employer] NA * FL Fluoro Less Than 1 Hour (12/29/2023 1:19 PM CDT) Narrative ERCP LOS RST - 12/29/2023 1:20 PM CDT This exam does not require a radiologist review or interpretation. Please refer to the patient's medical record on this date for clinical details. Pedro Pablo Kline M.D. IMG FLUOROSCOPY PROC EDURES Performing Organization Address [facility] Co de Phone Number ERCP LOS RST * Patient Status (12/28/2023 11:11 PM CDT) Only the most recent of5 resultswithin the time period is included. O2 Flow 2.0 L/min 12/28/2023 11:15 PM CDT [facility] Device NC 12/28/2023 11:15 PM CDT [facility] Spont. breaths/min 19 12/28/2023 11:15 PM CDT [facility] Blood 12/28/2023 11:1 1 PM CDT 12/28/2023 11:15 PM CDT Adia Samuel M.D. LAB BLOOD NON AD D-ON Performing Organization Address [facility] Co de Phone Number [facility] [address] [place] [address], [facility] STMA [facility] [address] [place] [address] * (ABNORMAL) Blood Gas without Coox, Venous (12/28/2023 11:11 PM CDT) Only the most recent of3 resultswithin the time period is included. pO2, Venous, B 44 Not applicable mm Hg 12/28/2023 11:17 PM CDT [facility]MA pCO2, Venous, B 55(H) 41 - 51 mm Hg 12/28/2023 11:17 PM CDT [facility] pH, Venous, B 7.35 7.32 - 7.43 pH 024 11:17 PM CDT [facility] Base Excess, Venous, B 5 Not applicable mmol/L 12/28/2023 11:17 PM CDT [facility] HCO3, Venous, B 31 Not applicable mmol/L 12/28/2023 11:17 PM CDT [facility] Sample Site, Venous, B Venipunct 12/28/2023 11:15 PM CDT [facility] Blood (Blood, Venous) 12/28/2023 11:11 PM CDT 12/28/2023 11:15 PM CDT Adia Samuel M.D. LAB BLOOD NON AD D-ON [facility] [address] [place] [address], [facility] [address] [place] [address] * (ABNORMAL) Blood Gas with Coox, Venous (12/28/2023 4:39 PM CDT) Only the most recent of2 resultswithin the time period is included. pO2, Venous, B 77 Not applicable mm Hg 12/28/2023 4:46 PM CDT [facility]MA pCO2, Venous, B 50 41 - 51 mm Hg 12/28/2023 4:46 PM CDT [facility] pH, Venous, B 7.36 7.32 - 7.43 pH 024 4:46 PM CDT [facility] Base Excess, Venous, B 3 Not applicable mmol/L 12/28/2023 4:46 PM CDT [facility] HCO3, Venous, B 28 Not applicable mmol/L 12/28/2023 4:46 PM CDT [facility] Hemoglobin, Venous, B 11.3(L) 13.2 - 16.6 g/dL 12/28/2023 4:46 PM CDT [facility] O2Hb, Venous, B 94.8 Not applicable % 12/28/2023 4:46 PM CDT [facility] COHb, Venous, B 2.0 <3.0 % 12/28/2023 4:46 PM CDT [facility] MetHb, Venous, B <1.0 <1.5 % 12/28/2023 4:46 PM CDT [facility] CtO2, Venous, B 15.1 Not Applicable vol % 12/28/2023 4:46 PM CDT [facility] Sample Site, Venous, B Venipunct 12/28/2023 4:45 PM CDT [facility] Blood (Blood, Venous) 12/28/2023 4:39 PM CDT 12/28/2023 4:45 PM CDT Ralph Neil M.D. LAB BLOOD NON ADD- ON [facility] [address] [place] [address], [facility] [address] [place] [address] * (ABNORMAL) Venous Blood Gas and Electrolytes CG8+, POCT (12/28/2023 3:19 PM CDT) Only the most recent of2 resultswithin the time period is included. Sample Site, POCT Venstick 12/28/2023 3:26 PM CDT PCLX Comment: ----ADDITIONAL INFORMATION---- Performed at the Point of Care pH, Venous, POCT, B 7.27(L) 7.32 - 7.43 12/28/2023 3:26 PM CDT PCSM Comment: ----ADDITIONAL INFORMATION---- Performed at the Point of Care pCO2, Venous, POCT, B 62(H) 41 - 51 mm Hg 12/28/2023 3:26 PM CDT PCSM Comment: ----ADDITIONAL INFORMATION---- Performed at the Point of Care pO2, Venous, POCT, B 86 Not Applicable mm Hg 12/28/2023 3:26 PM CDT PCSM Comment: ----ADDITIONAL INFORMATION---- Performed at the Point of Care Base Excess, Venous, POCT, B 2 Not Applicable mmol/L 12/28/2023 3:26 PM CDT PCSM Comment: ----ADDITIONAL INFORMATION---- Performed at the Point of Care HCO3, Venous, POCT, B 29 Not Applicable mmol/L 12/28/2023 3:26 PM CDT PCSM Comment: ----ADDITIONAL INFORMATION---- Performed at the Point of Care Sodium, POCT, B 139 135 - 145 mmol/L 12/28/2023 3:26 PM CDT PCLX Comment: ----ADDITIONAL INFORMATION---- Performed at the Point of Care Potassium, POCT, B 3.8 3.6 - 5.2 mmol/L 12/28/2023 3:26 PM CDT PCLX Comment: ----ADDITIONAL INFORMATION---- Performed at the Point of Care Calcium, Ionized, POCT, B 5.20 4.65 - 5.30 mg/dL 12/28/2023 3:26 PM CDT PCL[facility] Comment: ----ADDITIONAL INFORMATION---- Performed at the Point of Care Glucose, POCT, B 94 70 - 140 mg/dL 12/28/2023 3:26 PM CDT [facility] Comment: ----ADDITIONAL INFORMATION---- Performed at the Point of Care Hematocrit, POCT, B 33.0(L) 38.3 - 48.6 % 12/28/2023 3:26 PM CDT P[facility] Comment: ----ADDITIONAL INFORMATION---- Performed at the Point of Care Blood (Blood, Venous) 12/28/2023 3:19 PM CDT 12/28/2023 3:19 PM CDT Letha Valiente M.D., M.S. LAB POCT ORD ERABLES - DEVICE POC [facility] [address] [place] [address], [place] PCLX [facility] [address] [place] [address] PCSM [facility] [address] [place] [address] * EEG (12/28/2023 7:29 AM CDT) Narrative [facility] - 12/28/2023 10:12 AM CDT Clinical Interpretation: This inpatient short-term video EEG shows a moderate degree of diffuse nonspecific slow wave abnormalities. ??There was also an excess of fast activity which could be seen as a result of medication effect. ??No potentially epileptogenic activity was present during the awake-only recording. Classification: SPECIAL STUDY - Short-term video EEG. Dysrhythmia grade 2 generalized. Sleep - unsuccessful. EKG channel. Report: This inpatient short-term video EEG contains up to 6 Hz theta activity over the posterior head regions. ?? An excess of beta activity is present. ??Moderate diffuse slowing in the range of 2-7 Hz was intermittently present throughout the recording. ??Photic stimulation and hyperventilation were omitted. ?? A sleep recording was not obtained. The EKG channel was unremarkable. Pedro Pablo Kline M.D. NEUROLOGY ORDERABLES Performing Organization Address City/[facility]/ZIP Co de Phone Number [facility] NA * Glucose, POCT (12/28/2023 6:26 AM CDT) Only the most recent of2 resultswithin the time period is included. Glucose, POCT, B 97 70 - 140 mg/dL 12/29/2023 3:30 PM CDT PCL[facility] Site Capillary 12/29/2023 3:30 PM CDT P[facility] Last Intake ContTubFdg 12/29/2023 3:30 PM CDT PCLX Blood 12/28/2023 6:26 AM CDT 12/29/2023 3:30 PM CDT Unknown Provider LAB POCT ORDERABLES- MANUAL POC [facility] [address] [place] [address], [facility] PCLX [facility] [address] [place] [address] * ECG 12 Lead (12/27/2023 2:34 PM CDT) Ventricular Rate ECG/Min 95 BPM MUSE TN Interval 150 ms MUSE QRSD Interval 96 ms MUSE QT Interval 358 ms MUSE QTC Interval 449 ms MUSE P Manor 19 degrees MUSE R Manor -4 degrees MUSE T Wave [place] 84 degrees MUSE 12/27/2023 2:34 PM CDT 12/27/2023 2:39 PM CDT Impressions MUSE - 12/27/2023 2:39 PM CDT Normal sinus rhythm Nonspecific ST abnormality T wave abnormality, consider anterolateral ischemia When compared with ECG of 18-Mar-2023 13:54, T wave inversion now evident in Anterolateral leads Reviewed by Akin Soto III, CRAT Narrative Procedure Note Pavel Olivera Jr., M.D. - 12/27/2023 IMPRESSION: Normal sinus rhythm Nonspecific ST abnormality T wave abnormality, consider anterolateral ischemia When compared with ECG of 18-Mar-2023 13:54, T wave inversion now evident in Anterolateral leads Reviewed by Akin Soto III, CRAT Pedro Pablo Kline M.D. ECG ORDERABLES MUSE NA * Lactate (12/27/2023 10:29 AM CDT) Only the most recent of3 resultswithin the time period is included. Pathologist [facility] Lactate, P 0.6 0.5 - 2.2 mmol/L 12/27/2023 10:47 AM CDT STMA Blood (Blood, Venous) 12/27/2023 10:29 AM CDT 12/27/2023 10:33 AM CDT Pedro Pablo Kline M.D. LAB BLOOD NON ADD-ON [facility] [address] [place] [address], [facility] [address] [place] [address] * (ABNORMAL) Creatinine with Estimated GFR (12/27/2023 1:34 AM CDT) Creatinine 0.39(L) 0.74 - 1.35 mg/dL 12/27/2023 2:40 AM CDT DTL Estimated GFR (eGFR) >90 >=60 mL/min/BSA 12/27/2023 2:40 AM CDT DTL Comment: Estimated GFR calculated using the 2020 CKD_EPI creatinine equation. Blood (Blood, Venous) 12/27/2023 1:34 AM CDT 12/27/2023 2:01 AM CDT Fatmata Grier M.D. LAB BLOOD ADD-ON Performing Organization Address [facility] Co de Phone Number [facility] [address] [place] [address], [facility] DTDepartment of [facility] Affairs [facility] [address] [place] [address] * Non-Radiology Image-Pulmonary And CC Medicine Image Exam (12/27/2023 12:50 AM CDT) 12/27/2023 12:4 8 AM CDT Narrative [facility] - 12/27/2023 1:05 AM CDT This order has been created and auto-finalized to support the import of images acquired without order. The clinical documentation to support these images can be found on the encounter that produced images. Provider Not In System IMG NON RAD IMAGI NG PROCEDURES Performing Organization Address [facility] Co de Phone Number [facility] NA * Lactate, POCT (12/26/2023 11:54 PM CDT) Lactate, POCT 1.12 0.50 - 2.20 mmol/L 12/27/2023 12:10 AM CDT PCLX Sample Site, POCT Venstick 12/27/2023 12:10 AM CDT PCLX Blood 12/26/2023 11:5 4 PM CDT 12/27/2023 12:10 AM CDT Unknown Provider LAB POCT ORDERABLES - DEVICE Performing Organization Address [facility] Co de Phone Number POC [facility] [address] [place] [address], [facility] PCLX [facility] POC [address] [place] [address] * Feeding Tube Replacement (12/26/2023 9:36 PM CDT) Narrative Jamia Lozano M.D. - 12/26/2023 9:36 PM CDT Jamia Lozano M.D. ? 12/26/2023 ??9:38 PM Feeding Tube Replacement Performed by: Jamia Lozano M.D. Authorized by: Jamia Lozano M.D. ?? Care team members present 1. Jamia Lozano M.D. PROCEDURE DETAILS ?? Old tube details Old tube type: gastrojejunostomy New Tube Details Patient position: recumbent Dilation of tract needed: no ?? Placement difficulty: none Fluoroscopic image guidance used to localize target, identify at risk structures, and dynamically used to direct therapy to the target. Image(s) acquired and saved. (CT imaging confirms placement) CONSENT Consent obtained: verbal Consent given by: parent [employer] All relevant documentation and testing were reviewed and available. All required blood products, implants, devices and or special equipment were made available as applicable. Pre-procedure verification was conducted and the correct site was marked if required. A fire risk assessment was done as applicable. The procedural time-out to verify correct patient, correct side/site, and procedure was conducted prior to performing the procedure and confirmed in a procedural pause. PRE-PROCEDURE DETAILS Indications comment: Tube withdrawn partially, balloon out Procedure type: repositioning Procedure prep: Surgilube. SEDATION / ANESTHESIA Anesthesia method: none POST-PROCEDURE DETAILS Procedure completed successfully: yes ?? Placement/position confirmation: auscultation and gastric contents aspirated Complications: no immediate complications ?? Jamia Lozano M.D. PROCEDURE/MINOR WADE GICAL ORDERABLES * Influenza A/B, SARS CoV-2, PCR, Rapid Symptomatic (12/26/2023 7:50 PM CDT) Influenza A, PCR, Rapid, V Negative Negative 12/26/2023 8:18 PM CDT STMA Influenza B, PCR, Rapid, V Negative Negative 12/26/2023 8:18 PM CDT STMA SARS CoV-2, PCR, Rapid, V Undetected Undetected 12/26/2023 8:18 PM CDT STMA Comment: ----ADDITIONAL INFORMATION---- This RT-PCR test was performed using the [employer] SARS-CoV-2 and Influenza A/B Reagent assay from [employer], which has received Emergency Use Authorization(EUA) by the U.S. Food and Drug Administration. Fact sheets for this Emergency Use Authorization (EUA) assay can be found at the following links: For Healthcare Providers: https://www.fda.gov/media/580986/download For Patients: https://www.fda.gov/media/219226/download Infl A/B, SARS CoV-2, PCR, Source Swab, Nasopharynx 12/26/2023 7:56 PM CDT ST[facility] Swab (Nasopharynx) 12/26/2023 7:50 PM CDT 12/26/2023 7:56 PM CDT Jamia Lozano M.D. LAB MICROBIOLOGY - GENERAL ORDERABLES Performing Organization Address City/[facility]/ZIP Co de Phone Number [facility] [address] STMA [facility] [address] [place] [address] * Bacterial Culture, Aerobic + Susceptibility, Urine (12/26/2023 7:37 PM CDT) Urine Culture No growth after 1 day of incubation. 12/28/2023 7:28 AM CDT DTL Urine (Urine, Midstream) 12/26/2023 7:37 PM CDT 12/26/2023 8:36 PM CDT Comment:Specimen Source Site : Urine Jamia Lozano M.D. LAB MICROBIOLOGY - GENERAL ORDERABLES Performing Organization Address City/[facility]/ZIP Co de Phone Number [facility] [address] DTL [facility] [address] [place] [address] * CT Abdomen Pelvis with IV Contrast (12/26/2023 7:35 PM CDT) Anatomical Region Laterality Modality Abdomen, Pelvis, Abdominal R ST LOS, Abdominal ARZ LOS, Abdominal FLA LOS N/A Computed Tomograp hy, Computed Tomography 12/26/2023 7:30 PM CDT Impressions 12/26/2023 7:50 PM CDT 1. ??GJ tube terminates in the proximal jejunum. No acute intra-abdominal findings. 2. ??Bibasilar mixed consolidative and groundglass opacities, concerning for new infection/inflammation. Narrative 12/26/2023 7:50 PM CDT EXAM: ??CT ABDOMEN PELVIS WITH IV CONTRAST COMPARISON: ??CT abdomen pelvis 03/31/2023 FINDINGS: ?? Noncirrhotic liver morphology. Distended gallbladder without inflammatory changes. GJ tube terminates in the proximal jejunum. Negative pancreas, spleen, and adrenal glands. Symmetric nephrograms. No hydronephrosis. Tiny bilateral renal cysts. Stable right lower pole exophytic renal cyst. Normal caliber bowel. Scattered infrarenal mixed density aortic atherosclerotic plaque. Demineralization. Chronic fracture deformity of the left superior pubic ramus. Heterogenous appearance of the bone marrow. No adenopathy in the abdomen or pelvis. Bibasilar mixed consolidative and groundglass opacities with bronchial wall thickening, likely infectious/inflammatory. Procedure Note Bold, Say Trinidad M.D. - 12/26/2023 EXAM: CT ABDOMEN PELVIS WITH IV CONTRAST COMPARISON: CT abdomen pelvis 03/31/2023 FINDINGS: Noncirrhotic liver morphology. Distended gallbladder without inflammatorychanges. GJ tube terminates in the proximal jejunum. Negative pancreas,spleen, and adrenal glands. Symmetric nephrograms. No hydronephrosis. Tinybilateral renal cysts. Stable right lower pole exophytic renal cyst. Normal caliber bowel. Scatteredinfrarenal mixed density aortic atherosclerotic plaque. Demineralization. Chronic fracture deformity of the left superior pubicramus. Heterogenous appearance of the bone marrow. No adenopathy in theabdomen or pelvis. Bibasilar mixed consolidative and groundglass opacities with bronchialwall thickening, likely infectious/inflammatory. IMPRESSION: 1. GJ tube terminates in the proximal jejunum. No acute intra-abdominalfindings. 2. Bibasilar mixed consolidative and groundglass opacities, concerningfor new infection/inflammation. Jamia Lozano M.D. IMG CT PROCEDURES * Dipstick, Urine (12/26/2023 7:07 PM CDT) Hemoglobin, QL, U Negative Negative 12/26/2023 7:54 PM CDT DTL Leukocyte Esterase, U Negative Negative 12/26/2023 7:54 PM CDT DTL Nitrite, U Negative Negative 12/26/2023 7:54 PM CDT DTL Ketone, U Negative Negative mg/dL 12/26/2023 7:54 PM CDT DTL Glucose, U Negative Negative mg/dL 12/26/2023 7:54 PM CDT DTL Urine 12/26/2023 7:07 PM CDT 12/26/2023 7:37 PM CDT Jamia Lozano M.D. LAB URINE ORDERABLE S Performing Organization Address City/[facility]/ZIP Co de Phone Number [facility] [address] [place] [address] * Microscopic Automated (12/26/2023 7:07 PM CDT) Microscopy Normal 12/26/2023 7:54 PM CDT DTL RBC None Seen <3 /hpf 12/26/2023 7:54 PM CDT DTL WBC None Seen /hpf 12/26/2023 7:54 PM CDT DTL Comment: ----REFERENCE VALUE---- <4 ??(Males) <11 (Females) Urine 12/26/2023 7:07 PM CDT 12/26/2023 7:37 PM CDT Jamia Lozano M.D. LAB URINE ORDERABLE S Performing Organization Address City/[facility]/ZIP Co de Phone Number [facility] [address] [place] [address], [facility] [address] [place] [address] * pH, Urine (12/26/2023 7:07 PM CDT) pH, U 7.0 4.5 - 8.0 12/26/2023 7:5 0 PM CDT DTL Urine 12/26/2023 7:07 PM CDT 12/26/2023 7:37 PM CDT Jamia Lozano M.D. LAB URINE ORDERABLE S [facility] [address] [place], [place] [address] [place] [address] [address] [place] [address] * Osmolality, Urine (12/26/2023 7:07 PM CDT) Osmolality, U 237 150 - 1150 mOsm/kg 12/26/2023 7:50 PM CDT DTL Urine 12/26/2023 7:07 PM CDT 12/26/2023 7:37 PM CDT Jamia Lozano M.D. LAB URINE ORDERABLE S [facility] [address] [place], [place] [id number] [place] [address] [address] [place] [address] * (ABNORMAL) Urinalysis, with Microscopic: Urine, Catheter (12/26/2023 7:07 PM CDT) Source Urine, Urine, Catheter 12/26/2023 7:36 PM CDT DTL Color, U Yellow 12/26/2023 7:37 PM CDT DTL Clarity, U Clear 12/26/2023 7:37 PM CDT DTL Protein, U 8 <26 mg/dL 12/26/2023 8:11 PM CDT DTL Protein/Osmola lity 0.34 <0.42 ratio 12/26/2023 8:11 PM CDT DTL Predicted 24 HR Protein, U 335(H) <229 mg/24 h 12/26/2023 8:11 PM CDT DTL Predicted Range 106-1054 mg/24 h 12/26/2023 8:11 PM CDT DTL Urine (Urine, Catheter) 12/26/2023 7:07 PM CDT 12/26/2023 7:36 PM CDT Jamia Lozano M.D. LAB URINE ORDERABLE S [facility] [address] [place] [address], [facility] [address] [address] * Dipstick, POCT, Urine (12/26/2023 7:06 PM CDT) Glucose, POCT, U Negative Negative mg/dL 12/26/2023 7:08 PM CDT PCED Ketone, POCT, U Negative Negative mg/dL 12/26/2023 7:08 PM CDT PCED Specific [place], POCT, U 1.015 1.005 - 1.030 12/26/2023 7:08 PM CDT PCED Blood, POCT, U Negative Negative 12/26/2023 7:08 PM CDT PCED pH, POCT, Urine 7.0 5.0 - 8.0 12/26/2023 7:08 PM CDT PCED Protein, POCT, U Negative Negative mg/dL 12/26/2023 7:08 PM CDT PCED Nitrites, POCT, U Negative Negative 12/26/2023 7:08 PM CDT PCED Leukocytes, POCT, U Negative Negative 12/26/2023 7:08 PM CDT PCED Urine 12/26/2023 7:06 PM CDT 12/26/2023 7:08 PM CDT Unknown Provider LAB POCT ORDERABLES - DEVICE POC RST [facility] [address] [place] [address], [facility] PCED [facility] POC [address] [place] [address] * DX Chest Portable 1 View (12/26/2023 6:21 PM CDT) Anatomical Region Laterality Modality Chest, Thoracic RST LOS, Tho racic ARZ LOS, Thoracic FLA LOS N/A Digital Radiography Impressions 12/26/2023 6:51 PM CDT Since 03/18/2023, decreased but persistent patchy pulmonary opacities throughout both lungs. Otherwise no significant change. Shallow inspiration with accentuation of the cardiac silhouette and pulmonary vasculature. No pleural effusion or pneumothorax. Narrative 12/26/2023 6:51 PM CDT EXAM: ??DX CHEST PORTABLE 1 VIEW Procedure Note Bold, Say Trinidad M.D. - 12/26/2023 EXAM: DX CHEST PORTABLE 1 VIEW IMPRESSION: Since 03/18/2023, decreased but persistent patchy pulmonary opacitiesthroughout both lungs. Otherwise no significant change. Shallowinspiration with accentuation of the cardiac silhouette and pulmonaryvasculature. No pleural effusion or pneumothorax. Jamia Lozano M.D. IMG DIAGNOSTIC IMAG ING PROCEDURES * Bacteria / Shanae Culture, Blood #2 (12/26/2023 6:06 PM CDT) Only the most recent of2 resultswithin the time period is included. Bacteria/Isabell da Culture, Blood No growth after 5 days of incubation. 12/31/2023 7:02 PM CDT DTL Blood (Blood, Peripheral Draw) 12/26/2023 6:06 PM CDT 12/26/2023 6:17 PM CDT Comment:Specimen Source Site : Blood Narrative [facility] - 12/31/2023 7:02 PM CDT Received Bactec aerobic and Bactec anaerobic bottles Jamia Lozano M.D. LAB MICROBIOLOGY - GENERAL ORDERABLES [facility] [address] [place], [place] [address] DTL [facility] [address] [place] [address] * (ABNORMAL) Lactate for Sepsis with Reflex (12/26/2023 5:49 PM CDT) Lactate, P 2.3(H) 0.5 - 2.2 mmol/L 12/26/2023 6:25 PM CDT [facility] Blood (Blood, Venous) 12/26/2023 5:49 PM CDT 12/26/2023 6:12 PM CDT Jamia Lozano M.D. LAB BLOOD NON ADD-O N Performing Organization Address City/[facility]/ZIP Co de Phone Number [facility] [address] [place], [place] [address] [address] [place] [address] * (ABNORMAL) Prothrombin Time (PT) (12/26/2023 5:49 PM CDT) Prothrombin Time, P 12.8(H) 9.4 - 12.5 sec 12/26/2023 6:21 PM CDT [facility] IN[facility] 1.2 0.9 - 1.1 12/26/2023 6:21 PM CDT [facility] Comment: ----ADDITIONAL INFORMATION---- Standard intensity warfarin therapeutic range: 2.0 to 3.0 ?? High intensity warfarin therapeutic range: 2.5 to 3.5 Blood (Blood, Venous) 12/26/2023 5:49 PM CDT 12/26/2023 6:12 PM CDT Jamia Lozano M.D. LAB BLOOD ADD-ON [facility] [address] [place] [address], [facility] [address] [place] [address] * (ABNORMAL) Lipase (12/26/2023 5:49 PM CDT) [facility] Lipase, S 8(L) 13 - 60 U/L 12/26/2023 6: 49 PM CDT DT Blood (Blood, Venous) 12/26/2023 5:49 PM CDT 12/26/2023 6:34 PM CDT Jamia Lozano M.D. LAB BLOOD ADD-ON Performing Organization Address City/[facility]/ZIP Co de Phone Number [facility] [address] [place] [address], [facility] [address] [place] [address] * Cystatin C with Estimated GFR (12/26/2023 5:48 PM CDT) [facility] eGFR by Cystatin C 116 >60 mL/min/BSA 12/27/2023 1:50 AM CDT DT Comment: Estimated GFR calculated using the CKD-EPI Cystatin C (2012) equation. ----ADDITIONAL INFORMATION---- Cystatin C-based eGFR may differ substantially from creatinine- based eGFR in patients with abnormal muscle mass or acutely changing renal function. ??Please interpret together with relevant clinical features. On 02/06/2021 the cystatin C assay method changed. Cystatin C eGFR results > 50 ml/min/1.73m2 are approximately 10% lower with the new assay. Cystatin C 0.74 0.63 - 1.03 mg/L 12/27/2023 1:50 AM CDT DT Blood (Blood, Venous) 12/26/2023 5:48 PM CDT 12/27/2023 1:32 AM CDT Adia Samuel M.D. LAB BLOOD ADD-ON Performing Organization Address City/[facility]/ZIP Co de Phone Number [facility] [address] [place] [address], [facility] DTDepartment of Veterans Affairs [facility] [address] [place] [address] * Vitamin B12 Assay (12/26/2023 5:48 PM CDT) Vitamin B12 Assay, S 656 180 - 914 ng/L 12/28/2023 8:37 AM CDT DTL Comment: ----ADDITIONAL INFORMATION---- In patients being evaluated for vitamin B12 deficiency who have intrinsic factor blocking antibodies (IFBA), false elevations of B12 may occur due to IFBA interference thus potentially obscuring a physiological deficiency of B12. If observed B12 concentrations are discordant with clinical presentation, measurement of methylmalonic acid (MMA) should be considered. Blood (Blood, Venous) 12/26/2023 5:48 PM CDT 12/27/2023 2:21 PM CDT Pedro Pablo Kline M.D. LAB BLOOD ADD-ON [facility] [address] [place] [address], [place] [facility] [address] [place] [address] from Last 3 Months Advance Directives For more information, please contact: [phone] * Full Code (Latest Code Status on File) Date Activated Date Inactivated Comments 12/26/2023 11:02 PM 12/30/2023 2:14 PM Question Answer Comments Full Code: Discussed with Shelby Guerrero r/mother * Full Code Date Activated Date Inactivated Comments 03/18/2023 7:50 PM 03/19/2023 4:54 PM Question Answer Comments Full Code: Not Discussed Due to: Patient does not have the capaci ty * Full Code Date Activated Date Inactivated Comments 03/11/2023 6:17 PM 03/13/2023 7:17 PM Question Answer Comments Full Code: Discussed * Full Code Date Activated Date Inactivated Comments 02/22/2023 11:14 PM 02/26/2023 2:38 PM Question Answer Comments Full Code: Discussed Discussed with james arias * Full Code Date Activated Date Inactivated Comments 06/25/2020 4:36 PM 06/30/2020 11:57 AM Question Answer Comments Full Code: Discussed Care Teams Housekeeper Manager Relationship Specialty Start Date End Date Elsewhere, Pcp PCP - General Family Medicine 06/24/18
--- OUTSIDE RECORDS SUMMARY | 2024-02-28 11:39 | XMS_ITS | Encounter Summary ---
Author Organization [facility] Address [address] [place] [id number] Care Team Providers Care Pump Erector Name Role Phone Elsewhere, Pcp Primary Care Provider Unavailabl e Reason for Visit * Outpatient (Routine) - Closed Specialty Diagnoses / Procedures Referred By Valorie copeland Referred To Contact Sleep Medicine Srinath Rodriguez M.D. [address] [place] [phone] Jessy Pisano M.D. [address] [place] [phone] Referral ID Status Reason Start Date Expiration Date Visits Re quested Visits Authorized [id number] Closed 12/27/2023 06/27/2025 1 1 Encounter Details Date Type Department Care Team (Latest Contact Info) Description 01/12/2024 9:30 AM CDT [facility] [place], [place] [address] [place] [phone] Jessy Pisano M.D. [address] [place] [phone] Snoring (Primary Dx); Hypoxemia; Stroke Cerebrovascular Accident Personal History Social History Tobacco Use Types Packs/Day Years [...] declined 12/11/2021 How often do you attend yazidi or christianity serv ices? Patient declined 12/11/2021 Do you belong to any clubs o r organizations such as yazidi groups, unions, fraternal or athletic groups, or [...] and heating? Not hard at all 12/11/2021 [facility] - Occupational Stress [...] place to sleep or slept in a half-way (including now)? No 12/11/2021 Nutrition Answer Date Recorded Nutrition: EVOO Fat Source Yes 03/10 On average, how many serving s of fruits and vegetables do you eat per day (serving size is equal to 1 cup or approximately the size of a tennis ball)? 3-5 03/10/2023 Dental Answer Date Recorded Dental: Regular Dentist Yes 11/01/19 21 Employment Answer Date Recorded Employment status N/A 12/11/2021 Sex and Gender Information Value Date Recorded Sex Assigned at Male 12/11/2021 2:11 PM CDT Gender Identity Male 12/11/2021 1:44 PM CDT Sexual Orientation Straight 12/11/2021 2: 11 PM CDT documented as of this encounter Progress Notes * Jessy Pisano M.D. - 01/12/2024 9:30 AM CDT Images from the original note were not included. SUBJECTIVE CHIEFCOMPLAINT/REASON FOR CONSULT Sleep Apnea Return Visit HISTORY OF PRESENT ILLNESS Mr. Hilario is a 43 y.o. 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 I last saw him on 07/08/2023 by video visit at which time we had discussed proceeding with polysomnography to evaluate for both central and obstructive sleep apnea and hypoventilation. At our previous visit we had discussed recurrent hospitalizations for pneumonia (aspiration), and ausage of 1LPM oxygen at night for nocturnal hypoxemia without formal sleep study. They report frequent witnessed apneas, snorts, snoring, mouth breathing, sleeping with head of bed elevated, daytime somnolence, multiple naps per day. During previous hospitalizations concern for sleep apnea has beenbrought up multiple times. Noted drops of his saturations into the 70s at home per mom, which she responds by adjusting supplemental oxygen. He has frequent seizures, multiple seizure types and has rectal diazepam for rescue. Family history of CHEKO in dad and cousins. I had reviewed his overnight oximetry from 08/19/2020 which was done on 1LPM oxygen and showed frequent oscillations, KENIA 9.8, and may have represented a pattern more consistent with central apnea. He has a history of lateral medullary stroke, recurrent seizures, recurrent aspirations, reflux, elevated BMI (28.85), use of benzodiazepines (clobazam, rescue medications), hypotonia (per outside notes) - multiple risk factors for both central and obstructive sleep apnea. Our team was recently contacted when Mr. Hilario was hospitalized after presenting for GJ tube dislodgement, fever, diarrhea, increased somnolence, diagnosed with aspiration pneumonia. to assist withgetting them reconnected to arrange sleep study. He had elevated lactate of 2.7 on arrival to ER, CXR showed persistent patchy pulmonary opacities throughout bilateral lung spaces. He had increased somnolence during his stay for which an [employer] was called, VBG showed pH 7.27, pCO2 62. Later that day (12/27) improved to pH 7.35, pCO2 55 (appears to have been done on 2L O2). During hospitalization he did have decreased respiratory rate and hypoxia after a dose of dilaudid requiring narcan drip. He had a swallow study that showed no evidence of aspiration. Today, mom and his nurse Ny are present as with Nick and provide history. They report he has been using oxygen when asleep (more regularly than before) but otherwise not using it during wakefulhours. Mostly just when he's sleeping. Seems back to baseline. They think since he has started oxygen at night on a regular basis they think he's been more awake/alert. Making more eye contact, playing with his toys, saying no no mama. He enjoys playing in his work center, with balls, he does like eating too - small amounts very slowly and carefully. Enjoys car rides and walks. He is not weightbearing, non ambulatory, wheelchair bound. Using suction machine when he is sick mostly, occasionally otherwise. They have noticed some higher blood pressures when he is sleeping. Sleepiness and snoring has been ongoing for years, in the setting of losing milestones/skills over the years so it is hard to say how much the sleepiness is really affecting what he can do/participate in during the day. Reynolds Score: 17 (01/11/24 1531 : Patient, Online Services) Prior Reynolds Score: 24 on 07/08/23 VITAL SIGNS Blood Pressure: (!) 115/98 (12/30/2023 11:45 AM) Temperature: 36.9 ??C (12/30/2023 11:45 AM) Temp Source: Axillary (12/30/2023 11:45 AM) Heart Rate: 96 (12/30/2023 3:30 AM) Heart Rate Source: ECG (12/30/2023 12:45 AM) Pulse Rate: 86 (12/30/2023 11:45 AM) Pulse Rate Source: Pulse oximetry (12/30/2023 11:45 AM) Resp Rate: 16 (12/30/2023 11:45 AM) BMI (Calculated): 28.8 kg/m?? (12/30/2023 8:00 AM) SpO2: 92 % (12/30/2023 11:45 AM) Height: 156 cm (12/27/2023 9:09 AM) Weight: 70.2 kg (12/30/2023 8:00 AM) On video, asleep in bed. Appears in no acute distress. ASSESSMENT / PLAN #1 Snoring #2 Hypoxemia #3 Stroke Cerebrovascular Accident Personal History We had a long discussion today about Nick's specific situation - given his stroke history, epileptic encephalopathy, past radiation treatment, hypotonia, medications (benzodiazepines for example),recurrent aspiration pneumonias - he has numerous risk factors for obstructive sleep apnea, centralsleep apnea, hypoventilation/restrictive lung disease secondary to neuromuscular weakness, and may also have some lung parenchyma changes. We discussed that a sleep study would help us answer the questions of obstructive sleep apnea, central sleep apnea, and hypoventilation. We discussed that it ishard to anticipate which treatment would be indicated without the results, but likely the discussion would be about qualifying diagnoses for PAP therapy of some modality using a ventilator (for the alarms and battery feature given his instability and frequent respiratory exacerbations) with or without oxygen. I did recommend we pause and discuss today to think about what PAP therapy would look like for Nick and balance the risks and benefits. 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 We discussed that while we typically focus on the benefits of PAP therapy - for improving daytime symptoms, reducing risk for cardiovascular events - there are also the downsides/risks to the therapy itself. We talked abo ut Nick's inability to remove a mask himself - which would mean he could absolutely never use a full face mask as he would not be able to remove this himself were he to vomit for example. We also talked in general about positive airway pressure increasing aspiration risk given that it would be pushing things down his airway (secretions, vomit, etc). He does have a GJ tube but he does eat by mouth and he does not have a Hayden fundoplication. We also discussed the challenges for PAP therapy -tolerance, comfort, finding a mask that works. And in nick's case being a mouth breather, he mayhave significant issues with leak and we would not be able to safely use methods of treating mouth leak (chinstrap, mouth tape, full face mask - all contraindicated in his situation). We talked aboutthe hassles of an added device, cleaning, etc, which I am sure these loving caregivers would have no problem doing for him if they were to proceed with this, but is something they should be aware of as well. They have noticed improvement in his daytime functioning with addition of oxygen, which would have limited risk for him at this point. We left the discussion at mom taking time to talk to dad and think about things further. They will contact me if they want to proceed with testing/PAP therapy consideration. We did talk about some other ways to treat obstructive sleep apnea such as elevating the head of the bed, having him sleep on his side (he does prefer this they tell me). These would all be low risk/no risk things for them to do at this point. IF they were to want to proceed with an in lab PSG I would recommend the following study design: Family to be present. DO NOT USE FULL FACE MASK. If obstructive sleep apnea is present, start with CPAP. If CPAP pressure more than 15 cm H2O and unable to tolerate go to BiPAP S (assuming no central sleep apnea) If central sleep apnea present during diagnostic OR emerging during treatment portion: IF transcutaneous CO2 >50 initiate BiPAP S/T if transcutaneous CO2 <50, initiate ASV If transcutaneous CO2 remains elevated above 50mm Hg despite AHI <5, optimize BiPAP S/T to tidalvolume goal of approximately 400mL, minute ventilation of approximately 7LPM. Plan was discussed with Dr. Mantilla who agrees with above. Jessy Pisano M.D. Sleep Medicine Fellow PATIENT EDUCATION Ready to learn, no apparent learning barriers were identified; learning preferences include listening. Explained diagnosis and treatment plan; patient expressed understanding of the content. I personally spent 45 minutes in care of the patient today. Time includes both non face to face andface to face patient care. documented in this encounter Plan of Treatment Not on file documented as of this encounter Visit Diagnoses Diagnosis Snoring- Primary Hypoxemia Stroke Cerebrovascular Accident Personal History documented in this encounter Care Teams Pump Erector Relationship Specialty Start Date End Date Elsewhere, Pcp PCP - General Family Medicine 06/24/18 documented as of this encounter
--- OUTSIDE RECORDS SUMMARY | 2024-02-28 11:39 | XMS_ITS ---
Author Organization [facility] Address [address] [place] [address] Care Team Providers Care Boat Oar Maker Name Role Phone Unavailable Unavailable Unavailable Surgery Details Not on file Complications Check Surgery Details section. Procedure Estimated Blood Loss Check Surgery Details section. Procedure Findings Check Surgery Details section. Procedure Specimens Taken Check Surgery Details section.
--- OUTSIDE RECORDS SUMMARY | 2024-02-28 11:39 | XMS_ITS ---
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 Past Plans No past plan information found. Radiation Treatments * No radiation treatments are documented for this patient in [facility]. Treatments may have been administered in another system. Lifetime Dose Tracking * Chemical Lifetime Dose Automatic Entry Manual Entr y Radiation 399.56 mGy 399.56 mGy 0 mGy Fluoro Time 33.855 minutes 33.855 minutes 0 minutes Resolved Problems Problem Noted Date Diagnosed Date Resolved Date Hypoxia Sleep Related 06/27/20202019 Hypokalemia 06/27/2020 06/30/2020 Pneumonia 06/25/2020 06/30/2020
--- OUTSIDE RECORDS SUMMARY | 2024-02-28 11:39 | XMS_ITS | Referral Summary ---
Author Organization [facility] Address [address] [place] [address] Care Team Providers Care Superintendent Laundry Name Role Phone Elsewhere, Pcp Primary Care Provider Unavailabl e Source Comments Patient records contain information from all sites at [facility]. For routine questions regarding patient records, call [phone] during business hours, M-F 8:00 AM - 5:00 PM Central Time. Record requests for emergency care only can be directed to [phone] at any time.[facility] Encounters Date Type Department Care Team Description 02/02/2024 10:40 AM CDT - 02/02/2024 11:59 PM CDT Hospital Encounter Department of Laboratory Medicine in [place], [place] [address] [place] [phone] Jose Martin Eaton M.D. 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 Snoring (Primary Dx); Hypoxemia; Stroke Cerebrovascular Accident Personal History 12/30/2023 Orders Only Department of Nutrition and Diabetes Education in [place], [place] [address] [place] [phone] Na Brennan RDN, LD Ayaan Gastaut Syndrome (HCC) (Primary Dx); Gastrojejunostomy Percutaneous Status Post ; Dietary Counseling And Surveillance For Enteral Nutrition 12/26/2023 4:16 PM CDT - 12/30/2023 12:14 PM CDT Hospital Encounter [facility], [facility], Sixth Floor [address] [place] [phone] Jamia Lozano M.D. Andria Shaffer M.B.B.S., M.D. Wes Person M.B.B.S. Feliciano Alejandre M.D., Ph.D. Pneumonia (Primary Dx); Sepsis (HCC); Aftercare Feeding Tube; Dehydration; Diarrhea; Acidosis Lactic; Dysphagia Oropharyngeal Phase [R13.12] Discharge Disposition: Home or Self Care 12/29/2023 12:52 PM CDT Anesthesia Event Division of Gastroenterology in [address] [phone] Cruz Edmonds APRN, KRISHAN 12/29/2023 11:05 AM CDT - 12/29/2023 11:59 PM CDT Hospital Encounter Department of Radiology, [facility] in [place], [place] [address] [place] [phone] Pedro Pablo Kline M.D. Discharge Disposition: Home or Self Care 12/27/2023 Orders Only [facility] in [place], [place] [address] [place] [phone] Srinath Rodriguez M.D. 12/27/2023 12:50 AM CDT Ancillary Procedure Department of Pulmonary and CC Medicine 12/26/2023 Nurse Triage Department of Family Medicine, [facility], in [place] [address] [place] [phone] Poonam Jasmine R.N. Vomiting; Tube Problem 12/20/2023 Documentation Division of Endocrinology in [place], [place] [address] [place] [phone] Anastasia Chaney R.N. Scheduling 12/20/2023 Orders Only Division of Endocrinology in [place], [place] [address] [place] [phone] Anastasia Chaney RJuli Dietary Counseling And Surveillance For Enteral Nutrition (Primary Dx) 12/20/2023 Clinical Communication Division of Endocrinology in [place], [place] [address] [place] [address] Provider, Unknown Follow-up Orders from Last 3 Months Allergies Active Allergy Reactions Criticality Noted Date Comments Amoxicillin-Pot Clavulanate Other (see comments) High 07/01/2020 Acute generalized exanthematous pustulosis (severe cutaneous adverse reaction) noted 07/01/2020. Augmentin/ Amoxicillin use contraindicated. 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 Witter Gastaut Syndrome 05/28/2020 Gastrostomy Status 09/27/2018 Leukemia [...] 06/27/20202019 Hypokalemia 06/27/2020 06/30/2020 Pneumonia 06/25/2020 06/30/2020 Immunizations Name Administration Dates Next Due DTP 02/11/1991, 2,1980,1979,1980 Influenza, Unspecified 05/26/2017,2015,06/27/2015,2013,06/29/2012,07/07/2010,06/26/2008,1 ,07/12/2006,07/16/2005, 004,08/27/2003 MMR 05/14/1981 PCV13 01/13/2016 PPSV23 09/20/2006 SARS-COV-2 (COVID-19) - MODERNA(Discontinued) 04/28/2022,06/11/2021 Td (Adult), adsorbed 07/07/2010 Social History Tobacco Use Types Packs/Day Years [...] declined 12/11/2021 How often do you attend restorationism or hindu serv ices? Patient declined 12/11/2021 Do you belong to any clubs o r organizations such as restorationism groups, unions, fraternal or athletic groups, or [...] and heating? Not hard at all 12/11/2021 [facility] - Occupational Stress Questionnaire Answer Date Recorded [...] place to sleep or slept in a intermediate (including now)? No 12/11/2021 Nutrition Answer Date [...] 12/27/2023 9:09 AM CDT Plan of Treatment Not on file Medical Devices Implanted Type Area Cheese Blender Device Identifier Shelf Expiration Date Model / Serial / Lot Stnt Uret Inl 6fx24 - Sna - [id number] Implanted:Qty : 1 on 04/05/2023 by Erika Londono M.D. at [facility] Ureteral Stent C.[employer].Bard [id number] 04/28/2027 [id number] / NA / [id number] Explanted Type Area Cheese Blender Device Identifier Shelf Expiration Date Model / Serial / Lot Stnt Uret Inl 7fx24 - [id number] Implanted:Qty : 1 on 02/22/2023 by Danita Munoz M.D. at [facility] Explanted:Qty : 1 on 04/05/2023 by Erika Londono M.D. 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) LEVETIRACETAM LEVEL, S Routine 02/02/2024 11:03 AM CDT 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) RUFINAMIDE, S Routine 02/02/2024 11:03 AM CDT 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) COMPREHENSIVE METABOLIC PANEL, S/P Routine 02/02/2024 11:03 AM CDT Medication Therapy Halfway Not Anticoagulant RETICULOCYTES, B Routine 02/02/2024 11:03 AM CDT Medication Therapy Manager Gyn Not Anticoagulant CLOBAZAM AND METABOLITE Routine 02/02/2024 11:03 AM CDT Ayaan Gastaut [...] Clobazam and Metabolite (02/02/2024 11:03 AM CDT) Clobazam 313.0(H) 30 - 300 ng/mL 02/04/2024 3:01 AM CDT [facility] N-desmethylclobazam >75460(H) 300 - 3000 ng/mL 02/04/2024 3:01 AM CDT [facility] Comment: ----ADDITIONAL INFORMATION---- This test was developed and its performance characteristics determined by [facility] in a manner consistent with CLIA requirements. This test has not been cleared or approved by the U.S. Food and Drug Administration. Blood (Blood, Venous) 02/02/2024 11:03 AM CDT 02/03/2024 2:51 PM CDT Jose Martin Eaton M.D. LAB BLOOD ADD-ON [facility] [place] [address] [place] [address] [facility] [address] [place] [address] [place] [address] * Rufinamide, S (02/02/2024 11:03 AM CDT) Rufinamide, S 9.0 5.0 - 30.0 mcg/mL 02/03/2024 1:20 PM CDT [facility] Comment: ----ADDITIONAL INFORMATION---- This test was developed and its performance characteristics determined by [facility] in a manner consistent with CLIA requirements. This test has not been cleared or approved by the U.S. Food and Drug Administration. Blood (Blood, Venous) 02/02/2024 11:03 AM CDT 02/03/2024 7:47 AM CDT Jose Martin Eaton M.D. LAB BLOOD NON ADD-ON [facility] [address] [place] [address] [facility] [address] [place] [address] [place] [address] * Hepatic Function Panel (02/02/2024 11:03 AM [...] Jose Martin Eaton M.D. LAB BLOOD ADD-ON [facility] [address] [place] [address], [facility] OWAT [facility] in [place] [address] [place] [address] * (ABNORMAL) Felbamate (Felbatol) Level (02/02/2024 11:03 AM CDT) Felbamate (Felbatol), S 145.7(H) 30.0 - 80.0 mcg/mL 02/04/2024 3:14 PM CDT [facility] Comment: ----ADDITIONAL INFORMATION---- This test was developed and its performance characteristics determined by [facility] in a manner consistent with CLIA requirements. This test has not been cleared or approved by the U.S. Food and Drug Administration. Blood (Blood, Venous) 02/02/2024 11:03 AM CDT 02/03/2024 7:41 AM CDT Jose Martni Eaton M.D. LAB BLOOD NON ADD-ON Performing Organization Address [facility] Co de Phone Number [facility] [address] [place] [address] [facility] [address] [place] [address] [place] [address] * (ABNORMAL) Levetiracetam Level (02/02/2024 11:03 AM CDT) Levetiracetam, S 71.9(H) 10.0 - 40.0 mcg/mL 02/03/2024 11:39 AM CDT [facility] Comment: ----ADDITIONAL INFORMATION---- This test was developed and its performance characteristics determined by [facility] in a manner consistent with CLIA requirements. This test has not been cleared or approved by the U.S. Food and Drug Administration. Blood (Blood, Venous) 02/02/2024 11:03 AM CDT 02/03/2024 7:48 AM CDT Jose Martin Eaton M.D. LAB BLOOD NON ADD-ON Performing Organization Address City/[facility]/ZIP Co de Phone Number [facility] [address] [place] [address] [facility] [address] [place] [address] [place] [address] * Lamotrigine Level (02/02/2024 11:03 AM CDT) Pathologist [facility] Lamotrigine, S 13.9 3.0 - 15.0 mcg/mL 02/03/2024 9:35 AM CDT [facility] Comment: ----ADDITIONAL INFORMATION---- This test was developed and its performance characteristics determined by [facility] in a manner consistent with CLIA requirements. This test has not been cleared or approved by the U.S. Food and Drug Administration. Blood (Blood, Venous) 02/02/2024 11:03 AM CDT 02/03/2024 7:47 AM CDT Jose Martin Eaton M.D. LAB BLOOD NON ADD-ON [facility] [address] [place] [address] [facility] [address] [place] [address] [place] [address] * Reticulocytes (02/02/2024 11:03 AM CDT) [facility] Reticulocytes, B 1.76 0.60 - 2.71 % 02/02/2024 3:18 PM CDT [facility] Absolute Reticulocyte 63.7 30.4 - 110.9 x10(9)/L 02/02/2024 3:18 PM CDT [facility] Blood (Blood, Venous) 02/02/2024 11:03 AM CDT 02/02/2024 3:00 PM CDT Jose Martin Eaton M.D. LAB BLOOD ADD-ON [facility] [address] [place] [address], [facility] [address] [place] [address] * (ABNORMAL) CBC with Differential, Blood (02/02/2024 11:03 AM CDT) Only the most recent of6 resultswithin the time period is included. [facility] Hemoglobin 12.5(L) 13.2 - 16.6 g/dL 02/02/2024 [...] Jose Martin Eaton M.D. LAB BLOOD ADD-ON [facility] [address] [place] [address], [facility] FB60 [facility] [place] [address] [place] [address] * (ABNORMAL) Comprehensive Metabolic Panel (02/02/2024 11:03 [...] Jose Martin Eaton M.D. LAB BLOOD ADD-ON [facility] [address] [place] [address], [place] [facility] [place] [address] [place] [address] * FL Swallow Function with Video and [...] further details andrecommendations. Pedro Pablo Kline M.D. IMG FLUOROSCOPY PROC EDURES * (ABNORMAL) Basic Metabolic [...] CDT Ralph Neil M.D. LAB BLOOD ADD-ON [facility] [address] [place] [address], [facility] [address] [place] [address] * Non-Endoscopic Tube Procedure (12/29/2023 1:23 PM CDT) 12/29/2023 1:23 PM CDT [facility] - 12/29/2023 1:52 PM CDT Post-op Diagnoses: ? - The PEG-J tube was dislodged and was removed and replaced with a 3.5 ? cm long, 22 Fr Avanos FARIHA-SMALL Low-profile PEG-J gastrostomy tube. ? - No specimens collected. Narrative PAOLI PROVATION - 12/29/2023 1:52 PM CDT Gary 6 [...] to tube site or tube call ? [phone] Wednesday - Wednesday 7;30 am-4:30 pm or after hours, weekends, ? holidays call [facility] pony ride operator [phone] ask them to page ? [phone] and wait for MD to answer. May [...] 3.5cm long. A 3.5cm long, 22 Fr Avanos FARIHA-SMALL ? Low-profile PEG-J tube was lubricated [...] Pablo Kline M.D. GI PROCEDURE ORDERAB LES MAE PROVATION NA * FL Fluoro Less Than 1 Hour (12/29/2023 1:19 PM CDT) Narrative ERCP LOS RST - 12/29/2023 1:20 PM CDT This exam does not require a radiologist review or interpretation. Please refer to the patient's medical record on this date for clinical details. Pedro Pablo Kline M.D. IMG FLUOROSCOPY PROC EDURES Performing Organization Address City/[facility]/ZIP Co de Phone Number ERCP LOS RST [...] BLOOD NON AD D-ON Performing Organization Address City/[facility]/ZIP Co de Phone Number [facility] [address] STMA [facility] [address] [place] [address] * (ABNORMAL) Blood Gas without Coox, Venous [...] Samuel M.D. LAB BLOOD NON AD D-ON [facility] [address] [place] [address], [facility] [address] [place] [address] * (ABNORMAL) Blood Gas with Coox, Venous [...] Neil M.D. LAB BLOOD NON ADD- ON [facility] [address] [place] [address], [facility] [address] [place] [address] * (ABNORMAL) Venous Blood Gas and Electrolytes CG8+, POCT (12/28/2023 3:19 PM CDT) Only the most recent of2 resultswithin the time period is included. Pathologist [facility] Sample Site, POCT Venstick 12/28/2023 3:26 PM [...] LAB POCT ORD ERABLES - DEVICE POC [facility] [address] [place] [address], [facility] PCLX [facility] POC [address] [place] [address] [facility] P[facility] [address] [place] [address] * EEG (12/28/2023 7:29 AM CDT) Narrative [...] Kline M.D. NEUROLOGY ORDERABLES Performing Organization Address City/[facility]/ZIP Co de Phone Number MMODAL NA * [...] CDT Unknown Provider LAB POCT ORDERABLES- MANUAL Performing Organization Address City/[facility] Co de Phone Number POC [facility] [address] [place] [address], [facility] PCLX [facility] 200 [place] [address] * ECG 12 Lead (12/27/2023 2:34 PM CDT) Ventricular Rate ECG/Min 95 BPM MUSE [place] Interval 150 ms MUSE QRSD Interval 96 ms MUSE QT Interval 358 ms MUSE QTC Interval 449 ms MUSE P [place] 19 degrees MUSE R [place] -4 degrees MUSE T Wave [place] 84 degrees MUSE 12/27/2023 2:34 PM CDT [...] Anterolateral leads Reviewed by Akin Soto III, BRITTANYT Pedro Pablo Kline M.D. ECG ORDERABLES Performing Organization Address City/[facility]/ZIP Co de Phone Number MUSE NA * Lactate (12/27/2023 10:29 AM CDT) Only the most recent of3 resultswithin the time period is included. Lactate, P 0.6 0.5 - 2.2 mmol/L 12/27/2023 10:47 AM CDT [facility] Blood (Blood, Venous) 12/27/2023 10:29 AM CDT 12/27/2023 10:33 AM CDT Pedro Pablo Kline M.D. LAB BLOOD NON ADD-ON Performing Organization Address [facility] de Phone Number [facility] [address] [place] [address], [facility] [address] [place] [address] * (ABNORMAL) Creatinine with Estimated GFR (12/27/2023 1:34 AM CDT) Pathologist [facility] Creatinine 0.39(L) 0.74 - 1.35 mg/dL 12/27/2023 2:40 AM CDT D[facility] Estimated GFR (eGFR) >90 >=60 mL/min/BSA 12/27/2023 2:40 AM CDT [facility] Comment: Estimated GFR calculated using the 2020 CKD_EPI creatinine equation. Blood (Blood, Venous) 12/27/2023 1:34 AM CDT 12/27/2023 2:01 AM CDT Fatmata Grier M.D. LAB BLOOD ADD-ON Performing Organization Address City/[facility]/ZIP Co de Phone Number [facility] [address] [place] [address], [facility] DTL [facility] [address] [place] [address] * Non-Radiology Image-Pulmonary And CC Medicine Image [...] RAD IMAGI NG PROCEDURES Performing Organization Address City/[facility]/ZIP Co de Phone Number IINV NA * Lactate, POCT (12/26/2023 11:54 PM CDT) Lactate, POCT 1.12 0.50 - 2.20 mmol/L 12/27/2023 12:10 AM CDT PCLX Sample Site, POCT Venstick 12/27/2023 12:10 AM CDT PCLX Blood 12/26/2023 11:5 4 PM CDT 12/27/2023 12:10 AM CDT Unknown Provider LAB POCT ORDERABLES - DEVICE POC [facility] [address] [place] [address], [facility] PCLX [facility] P[facility] 200 [place] [address] * Feeding Tube Replacement (12/26/2023 9:36 PM [...] at the following links: For Healthcare Providers: https://www.fda.gov/media/115381/download For Patients: https://www.fda.gov/media/508514/download Infl A/B, SARS CoV-2, PCR, Source Swab, Nasopharynx 12/26/2023 7:56 PM CDT [facility] Swab (Nasopharynx) 12/26/2023 7:50 PM CDT 12/26/2023 7:56 PM CDT Jamia Lozano M.D. LAB MICROBIOLOGY - GENERAL ORDERABLES Performing Organization Address [facility] Co de Phone Number [facility] [address] [facility] [address] [place] [address] * Bacterial Culture, Aerobic + Susceptibility, Urine (12/26/2023 7:37 PM CDT) Urine Culture No growth after 1 day of incubation. 12/28/2023 7:28 AM CDT DTL Urine (Urine, Midstream) 12/26/2023 7:37 PM CDT 12/26/2023 8:36 PM CDT Comment:Specimen Source Site : Urine Jamia Lozano M.D. LAB MICROBIOLOGY - GENERAL ORDERABLES Performing Organization Address [facility] Co de Phone Number [facility] [address] [place] [address] * CT Abdomen Pelvis with IV Contrast [...] opacities, concerningfor new infection/inflammation. Jamia Lozano M.D. [facility] CT PROCEDURES * Dipstick, Urine (12/26/2023 7:07 [...] Jamia Lozano M.D. LAB URINE ORDERABLE S [facility] [address] [place], [place] [id number] [place] [address] [facility] [facility] [address] [place] [address] * Microscopic Automated (12/26/2023 7:07 PM CDT) Microscopy Normal 12/26/2023 7:54 PM CDT DTL RBC None Seen <3 /hpf 12/26/2023 7:54 PM CDT DTL WBC None Seen /hpf 12/26/2023 7:54 PM CDT DTL Comment: ----REFERENCE VALUE---- <4 ??(Males) <11 (Females) Urine 12/26/2023 7:07 PM CDT 12/26/2023 7:37 PM CDT Jamia Lozano M.D. LAB URINE ORDERABLE S Performing Organization Address City/[facility]/ZIP Co de Phone Number [facility] [address] [place], [place] [phone] [place] [address] [facility] [facility] [address] [place] [address] * pH, Urine (12/26/2023 7:07 PM CDT) pH, U 7.0 4.5 - 8.0 12/26/2023 7:5 0 PM CDT DTL Urine 12/26/2023 7:07 PM CDT 12/26/2023 7:37 PM CDT Jamia Lozano M.D. LAB URINE ORDERABLE S [facility] [address] [place], [place] [id number] [place] [address] [facility] [facility] [address] [facility] [address] [place] [address] * Osmolality, Urine (12/26/2023 7:07 PM CDT) Osmolality, U 237 150 - 1150 mOsm/kg 12/26/2023 7:50 PM CDT DTL Urine 12/26/2023 7:07 PM CDT 12/26/2023 7:37 PM CDT Jamia Lozano M.D. LAB URINE ORDERABLE S [facility] [address] [place], [place] [address] [address] [place] [address] * (ABNORMAL) Urinalysis, with Microscopic: Urine, Catheter [...] Jamia Lozano M.D. LAB URINE ORDERABLE S [facility] [address] [place] [address], [facility] 200 [place] [address] * Dipstick, POCT, Urine (12/26/2023 7:06 PM CDT) Glucose, POCT, U Negative Negative mg/dL 12/26/2023 7:08 PM CDT PC[facility] Ketone, POCT, U Negative Negative mg/dL 12/26/2023 7:08 PM CDT [facility] Specific [place], POCT, U 1.015 1.005 - 1.030 12/26/2023 [...] LAB POCT ORDERABLES - DEVICE POC RST [facility] 200 [place] [address], [facility] PCED [facility] P[facility] 200 [place] [address] * DX Chest Portable 1 View (12/26/2023 [...] of2 resultswithin the time period is included. Pathologist [facility] Bacteria/Isabell da Culture, Blood No growth after 5 days of incubation. 12/31/2023 7:02 PM CDT DTL Blood (Blood, Peripheral Draw) 12/26/2023 6:06 PM CDT 12/26/2023 6:17 PM CDT Comment:Specimen Source Site : Blood Narrative [facility] - 12/31/2023 7:02 PM CDT Received Bactec aerobic and Bactec anaerobic bottles Jamia Lozano M.D. LAB MICROBIOLOGY - GENERAL ORDERABLES Performing Organization Address City/[facility] [place] [address], [facility] [place] [address] * (ABNORMAL) Lactate for Sepsis with Reflex (12/26/2023 5:49 PM CDT) Pathologist [facility] Lactate, P 2.3(H) 0.5 - 2.2 mmol/L 12/26/2023 6:25 PM CDT [facility] Blood (Blood, Venous) 12/26/2023 5:49 PM CDT 12/26/2023 6:12 PM CDT Jamia Lozano M.D. LAB BLOOD NON ADD-O N [facility] [address] [place] [address], [facility] 200 [place] [address] * (ABNORMAL) Prothrombin Time (PT) (12/26/2023 5:49 PM CDT) Pathologist [facility] Prothrombin Time, P 12.8(H) 9.4 - 12.5 sec 12/26/2023 6:21 PM CDT [facility] INR 1.2 0.9 - 1.1 12/26/2023 6:21 PM CDT [facility] Comment: ----ADDITIONAL INFORMATION---- Standard intensity warfarin therapeutic range: 2.0 to 3.0 ?? High intensity warfarin therapeutic range: 2.5 to 3.5 Blood (Blood, Venous) 12/26/2023 5:49 PM CDT 12/26/2023 6:12 PM CDT Jamia Lozano M.D. LAB BLOOD ADD-ON [facility] [address] [place] [address], [facility] 200 [place] [address] * (ABNORMAL) Lipase (12/26/2023 5:49 PM CDT) Pathologist [facility] Lipase, S 8(L) 13 - 60 U/L 12/26/2023 6: 49 PM CDT DTL Blood (Blood, Venous) 12/26/2023 5:49 PM CDT 12/26/2023 6:34 PM CDT Jamia Lozano M.D. LAB BLOOD ADD-ON [facility] 200 [place] [address], [facility] [address] [place] [address] * Cystatin C with Estimated GFR (12/26/2023 5:48 PM CDT) Pathologist [facility] eGFR by Cystatin C 116 >60 mL/min/BSA 12/27/2023 1:50 AM CDT DTL Comment: Estimated GFR calculated using the CKD-EPI [...] - 1.03 mg/L 12/27/2023 1:50 AM CDT DTL Blood (Blood, Venous) 12/26/2023 5:48 PM CDT 12/27/2023 1:32 AM CDT Adia Samuel M.D. LAB BLOOD ADD-ON Performing Organization Address [facility] Co de Phone Number [facility] [address] [place] [address], [facility] 2001 [address] [place] [address] * Vitamin B12 Assay (12/26/2023 5:48 PM CDT) [facility] Vitamin B12 Assay, S [phone] - [...] Pedro Pablo Kline M.D. LAB BLOOD ADD-ON Performing Organization Address [facility] Co de Phone Number [facility] [address] [place] [address], [place] DTL [facility] [address] [place] [address] from Last 3 Months Advance Directives For more information, please contact: [phone] * Full Code (Latest Code Status on [...] Answer Comments Full Code: Discussed Care Teams Superintendent Laundry Relationship Specialty Start Date End Date Elsewhere, Pcp PCP - General Family Medicine 06/24/18
--- OUTSIDE RECORDS SUMMARY | 2024-02-28 11:39 | XMS_ITS | Encounter Summary ---
Author Organization [facility] Address [address] [place] [address] Care Team Providers Care Tongsman Name Role Phone Elsewhere, Pcp Primary Care Provider Unavailabl e Encounter Details Date Type Department Care Team (Late st Contact Info) Description 12/30/2023 Orders Only Department of Nutrition and Diabetes Education in [place], [place] [address] [place] [address] Na Brennan, RDN, LD [address] [place] [phone] Ayaan Gastaut Syndrome (HCC) (Primary Dx); Gastrojejunostomy Percutaneous Status Post ; Dietary Counseling And Surveillance For Enteral Nutrition Social History Tobacco Use Types Packs/Day Years [...] declined 12/11/2021 How often do you attend alevism or hoahaoism serv ices? Patient declined 12/11/2021 Do you belong to any clubs o r organizations such as alevism groups, unions, fraternal or athletic groups, or [...] and heating? Not hard at all 12/11/2021 [facility] - Occupational [...] place to sleep or slept in a fdc (including now)? No 12/11/2021 Nutrition Answer Date [...] as of this encounter Progress Notes * Na Brennan RDN, ADELA - 12/30/2023 1:24 PM CDT Received a call from the patient's mother that Say had a low profile transgastric jejunal feeding tube placed yesterday during a brief hospital stay. He previously had a standard transgastric jejunal feeding tube. He was dismissed today and he does have one adaptor to use to administer feedingsand medications. I updated his supply order for the needed adaptors/extension sets and will fax to [facility] once signed by our provider. Reminded mom that the feeding tube will need to be replaced in 3 to 5 months and Say will be due for his yearly home enteral clinic visits this Fall (May/early June). She verbalized understanding. documented in this encounter Plan of Treatment Not on file documented as of this encounter Visit Diagnoses Diagnosis Ayaan Gastaut Syndrome (HCC)- Primary Gastrojejunostomy Percutaneous Status Post Dietary Counseling And Surveillance For Enteral Nutrition documented in this encounter Care Teams Tongsman Relationship Specialty Start Date End Date Elsewhere, Pcp PCP - General Family Medicine 06/24/18 documented as of this encounter
--- OUTSIDE RECORDS SUMMARY | 2024-02-28 11:39 | XMS_ITS | Encounter Summary ---
Author Organization [facility] Address [address] [place] [address] Care Team Providers Care Steaming Machine Operator Name Role Phone Elsewhere, Pcp Primary Care Provider Unavailabl e Encounter Details Date Type Department Care Team (Latest Contact Info) Description 02/02/2024 10:40 AM CDT - 02/02/2024 11:59 PM CDT Hospital Encounter Department of Laboratory Medicine in [place], [place] [address] [facility] [phone] Jose [place] Eaton M.D. 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 Patient declined 12/11/2021 Do you belong to any clubs o r organizations such as buddhism groups, unions, fraternal or athletic groups, or [...] and heating? Not hard at all 12/11/2021 [facility] Occupat ional Health - Occupational Stress [...] place to sleep or slept in a prison (including now)? No 12/11/2021 Nutrition Answer Date [...] PM CDT documented as of this encounter Medications at Time of Discharge Medication Sig Dispensed Refills Start Date End Date acetaminophen (TYLENOL) 325 mg tablet 1,000 mg by g-tube route every 6 (six) hours as needed. acetic acid 0.25 % irrigation (sterile) Irrigate with as directed 2 (two) times a day. For groin to perirectal/perineal area. 1000 mL 03/13/2023 azelastine (ASTEPRO) 205.5 mcg/spray (0.15 %) nasal spray Administer 1 spray into each nostril daily. 11 mL 02/26/2023 bacitracin 500 unit/gram ointment Apply 1 Application topically as needed (redness, inflammation on skin). baclofen (LIORESAL) 20 mg tablet TAKE 1 TABLET (20MG) PER G-TUBE FOUR TIMES A DAY. DO NOT EXCEED 80MG PER DAY. 01/27/2021 benzoyl peroxide (BREVOXYL) 4 % external liquid Apply 1 Application topically. bisacodyL (DULCOLAX) 10 mg suppository Insert 10 mg into the rectum daily as needed for constipation (if no results from AM miralax). 12/22/2022 cannabidioL (EPIDIOLEX) 100 mg/mL solution Administer 400-600 mg via gastric tube 2 (two) times a day. 400 mg AM, 600 mg PM clindamycin (CLEOCIN T) 1 % external solution Apply 1 Application topically. 08/11/2021 cloBAZam (ONFI) 10 mg tablet 15 mg by g-tube route every morning. 05/06/2020 cloBAZam (ONFI) 10 mg tablet Take 10 mg by mouth at bedtime. clotrimazole (FUNGI CURE) 1 % external solution Apply 1 Application topically daily as needed (rash on head). 15 mL 02/26/2023 clotrimazole-betameth asone (LOTRISONE) 1-0.05 % cream Apply 1 Application topically 2 (two) times a day as needed (rash or concerns for yeast infection). Apply to affected areas. DIASTAT ACUDIAL 12.5-15-17.5-20 mg rectal kit Insert 20 mg into the rectum as needed for seizures (if having more than 10 generalized tonic-clonic seizures per hour or if seizure lasts more than 3 minutes, may repeat once. if seizures continue, call 911). 11/26/2017 diphenhydramine-lidoc kelly-antacid (MAGIC MOUTHWASH) 1:1:1 Swish and spit 15 mL every 4 (four) hours as needed. felbamate (FELBATOL) 600 mg/5 mL suspension Take 1,500 mg by mouth every morning before breakfast. felbamate (FELBATOL) 600 mg/5 mL suspension Take 1,200 mg by mouth 2 (two) times a day. At 1400 and 2100 gabapentin (NEURONTIN) 300 mg capsule Take 300 mg by mouth 3 (three) times a day as needed (pain). 07/28/2021 haloperidol (HALDOL) 2 mg/mL concentrated solution Take 1 mg by mouth 4 (four) times a day as needed for agitation. 07/18/2020 HYDROcodone-acetamino phen (NORCO) 10-325 mg per tabletIndications:Chr onic Pain/Nonacute Pain Take 0.5 tablets by mouth every 6 (six) hours as needed for severe pain or score 7-10 of 10 Indication: Chronic Pain/Nonacute Pain. 12/30/2023 hydrocortisone (HYTONE) 2.5 % cream Apply 1 Application topically daily as needed (itching). 20 g 02/26/2023 ibuprofen (ADVIL,MOTRIN) 600 mg tablet 600 mg by g-tube route every 8 (eight) hours as needed for pain. ipratropium-albuteroL (DUONEB) 0.5-2.5 mg/3 mL nebulizer solution Inhale 3 mL by nebulization 4 (four) times a day as needed for shortness of breath. 06/26/2022 ketoconazole (NIZORAL) 2 % cream Apply 1 Application topically 2 (two) times a day as needed for irritation or rash. 07/08/2021 LaMICtaL 100 mg tablet Take 100 mg by mouth 3 (three) times a day. 350 mg morning, 350 mg at 2pm, 300 mg at bedtime. (has both 100 mg & 200 mg for the total of 350mg and 300 mg doses) 01/27/2021 lamoTRIgine (LaMICtaL) 200 mg tablet Administer 1 tablet (200 mg total) via gastric tube 3 (three) times a day. 350 mg morning, 350 mg at 2pm, 300 mg at bedtime. (has both 100 mg & 200 mg for the total of 350mg and 300 mg doses 270 tablet 3 12/30/2023 12/29/2024 levETIRAcetam (KEPPRA) 100 mg/mL solution Administer 1,600 mg via gastric tube at bedtime. levETIRAcetam (KEPPRA) 100 mg/mL solution Administer 1,500 mg via gastric tube every morning. levETIRAcetam (KEPPRA) 100 mg/mL solution Administer 200 mg via gastric tube 3 (three) times a day as needed (seizures). levocetirizine (XYZAL) 5 mg tablet 5 mg by gastric tube route every evening. loperamide (IMODIUM A-D) 1 mg/7.5 mL liquid Take 15 mL by mouth daily as needed. 11/27/2022 LORazepam (ATIVAN) 2 mg tablet Administer 2 mg via gastric tube daily as needed (seizures, agitation). magnesium hydroxide (MILK OF MAGNESIA) 400 mg/5 mL suspension Administer 30 mL via gastric tube daily as needed (if needed for constipation If no results from Miralax, Dulcolax Sup, Fleet, and Mineral Oil enemas.). 10/09/2022 mineral oil enema Insert 1 enema into the rectum daily as needed. 10/09/2022 mometasone (NASONEX) 50 mcg/actuation nasal spray Administer 2 sprays into each nostril daily. 49 g 3 12/29/2017 multivitamin with minerals liquid 10 mL by g-tube route. 06/26/2022 naloxone (NARCAN) 4 mg/actuation nasal spray Administer 1 spray (4 mg total) into one nostril as needed for reversal. Use 1 spray in 1 nostril. Repeat with second device in other nostril after 2-3 minutes if no or minimal response. 2 each 12/30/2023 nystatin (MYCOSTATIN) 100,000 unit/gram cream Apply 1 Application topically 2 (two) times a day. Apply to groin irritation. 30 g 03/13/2023 nystatin (MYCOSTATIN) 100,000 unit/gram cream Apply 1 Application topically 2 (two) times a day. Apply to areas of intertrigo 30 g 12/30/2023 nystatin (NYSTOP) 100,000 unit/gram powder Apply 1 Application topically 3 (three) times a day. Apply to groin irritation. 60 g 03/13/2023 nystatin (NYSTOP) 100,000 unit/gram powder Apply 1 Application topically 3 (three) times a day. Apply to areas of intertrigo 60 g 12/30/2023 nystatin (NYSTOP) 100,000 unit/gram powder Apply 1 Application topically 3 (three) times a day. Apply to areas of intertrigo 60 g 12/30/2023 nystatin-triamcinolon e (MYCOLOG II) 100,000 Unit/g-0.1 % cream Apply 1 Application topically 2 (two) times a day as needed (fungal infection). Apply to affected areas. olopatadine (PATADAY) 0.2 % ophthalmic solution Administer 1 drop into both eyes 4 (four) times a day as needed for allergies (redness). polyethylene glycol (MIRALAX) 17 gram/dose oral powder Administer 17 g via gastric tube daily as needed for constipation. 510 g 04/05/2023 pseudoephedrine (Sudafed) 30 mg tablet Take 30 mg by mouth every 6 (six) hours as needed for congestion. 01/27/2022 rufinamide (BANZEL) 200 mg tablet Administer 1 tablet (200 mg total) via gastric tube every morning. 90 tablet 3 12/30/2023 12/29/2024 rufinamide (BANZEL) 400 mg tablet 400 mg by g-tube route at bedtime. silver nitrate (ARZOL) 75-25 % topical stick Apply 1 Application topically as needed (for treatment of granulation tissue). Use every 3-4 days as needed as educated by HEN nurse 100 Stick 06/25/2023 06/24/2024 silver sulfADIAZINE (SILVADENE, SSD) 1 % cream Apply 1 Application topically daily as needed for wound care. Apply to skin break down in groin. simethicone (MYLICON,GAS-X) 125 mg capsule Take 125 mg by mouth every 6 (six) hours as needed for flatulence (bloating). torsemide (DEMADEX) 10 mg tablet Administer 10 mg via gastric tube daily as needed (edema). zaleplon (SONATA) 5 mg capsule Take 1 capsule (5 mg total) by mouth See Admin Instructions. Take as needed, if unable to sleep during sleep study. May repeat if needed. Allow a minimum of 4 hours prior to driving after last dose. If drowsy after sleep study do not drive until adequately alert. 2 capsule 07/08/2023 zinc oxide (DESITIN) 13 % cream Apply 1 Application topically as needed (skin cares). Apply to irritated perineal/jennifer-rectal skin. 136 g 03/13/2023 zinc oxide 40 % ointment Apply 1 g topically 2 (two) times a day. Apply to GT site for skin protectant. 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) HEPATIC FUNCTION PANEL, S Routine 02/02/2024 11:03 AM CDT Medication Therapy Websphere Commerce Architect Not Anticoagulant FELBAMATE (FELBATOL) LEVEL, S Routine 02/02/2024 11:03 AM CDT 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) LEVETIRACETAM LEVEL, S Routine 02/02/2024 11:03 AM CDT 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) LAMOTRIGINE LEVEL, S Routine 02/02/2024 11:03 AM CDT 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) RETICULOCYTES, B Routine 02/02/2024 11:0 3 AM CDT Medication Therapy Websphere Commerce Architect Not Anticoagulant CBC WITH DIFFERENTIAL, B Routine 02/02/2024 11:03 AM CDT Medication Therapy Long-Term Not Anticoagulant COMPREHENSIVE METABOLIC PANEL, S/P Routine 02/02/2024 11:03 AM CDT Medication Therapy Long-Term Not Anticoagulant documented in this encounter Results * Lamotrigine Level (02/02/2024 11:03 AM CDT) [facility] Lamotrigine, S 13.9 3.0 - 15.0 mcg/mL 02/03/2024 9:35 AM CDT [facility] Comment: ----ADDITIONAL INFORMATION---- This test was developed and its performance characteristics determined by [facility] in a manner consistent with CLIA requirements. This test has not been cleared or approved by the U.S. Food and Drug Administration. Blood (Blood, Venous) 02/02/2024 11:03 AM CDT 02/03/2024 7:47 AM CDT Jose [place] Eaton M.D. LAB BLOOD NON ADD-ON [facility] [address] [place] [address] [facility] [address] [place] [address] [place] [id number] * Hepatic Function Panel (02/02/2024 11:03 AM CDT) Bilirubin, Total, P 0.5 0.0 - 1.2 [...] Jose [place] Eaton M.D. LAB BLOOD ADD-ON [facility] [address] [place] [address], [facility] in [place] [address] [place] [address] * (ABNORMAL) CBC with Differential, Blood (02/02/2024 11:03 AM CDT) Hemoglobin 12.5(L) 13.2 - 16.6 g/dL 02/02/2024 [...] Jose [place] Eaton M.D. LAB BLOOD ADD-ON [facility] [address] [place] [address], [facility] [address]60 [facility] in [place] [address] [place] [address] * (ABNORMAL) Felbamate (Felbatol) Level (02/02/2024 11:03 AM CDT) Felbamate (Felbatol), S 145.7(H) 30.0 - 80.0 mcg/mL 02/04/2024 3:14 PM CDT [facility] Comment: ----ADDITIONAL INFORMATION---- This test was developed and its performance characteristics determined by [facility] in a manner consistent with CLIA requirements. This test has not been cleared or approved by the U.S. Food and Drug Administration. Blood (Blood, Venous) 02/02/2024 11:03 AM CDT 02/03/2024 7:41 AM CDT Jose [place] Eaton M.D. LAB BLOOD NON ADD-ON Performing Organization Address City/[facility]/ZIP Co de Phone Number [facility] [address] [place] [address] [facility] [address] [place] [address] [place] [address] * (ABNORMAL) Levetiracetam Level (02/02/2024 11:03 AM CDT) Levetiracetam, S 71.9(H) 10.0 - 40.0 mcg/mL 02/03/2024 11:39 AM CDT [facility] Comment: ----ADDITIONAL INFORMATION---- This test was developed and its performance characteristics determined by [facility] in a manner consistent with CLIA requirements. This test has not been cleared or approved by the U.S. Food and Drug Administration. Blood (Blood, Venous) 02/02/2024 11:03 AM CDT 02/03/2024 7:48 AM CDT Jose [place] Eaton M.D. LAB BLOOD NON ADD-ON Performing Organization Address City/[facility]/ZIP Co de Phone Number [facility] [address] [place] [address] [facility] [address] [place] [address] [place] [id number] * Rufinamide, S (02/02/2024 11:03 AM CDT) Rufinamide, S 9.0 5.0 - 30.0 mcg/mL 02/03/2024 1:20 PM CDT [facility] Comment: ----ADDITIONAL INFORMATION---- This test was developed and its performance characteristics determined by [facility] in a manner consistent with CLIA requirements. This test has not been cleared or approved by the U.S. Food and Drug Administration. Blood (Blood, Venous) 02/02/2024 11:03 AM CDT 02/03/2024 7:47 AM CDT Jose [place] Eaton M.D. LAB BLOOD NON ADD-ON [facility] [address] [place] [address] [facility] [address] [place] [address] [place] [address] * (ABNORMAL) Comprehensive Metabolic Panel (02/02/2024 11:03 AM CDT) Potassium, P 4.6 3.6 - 5.2 mmol/L [...] Jose [place] Eaton M.D. LAB BLOOD ADD-ON [facility] [address] [place] [address], [facility] in [place] [address] [place] [address] * Reticulocytes (02/02/2024 11:03 AM CDT) Reticulocytes, B 1.76 0.60 - 2.71 % 02/02/2024 3:18 PM CDT [facility] Absolute Reticulocyte 63.7 30.4 - 110.9 x10(9)/L 02/02/2024 3:18 PM CDT [facility] Blood (Blood, Venous) 02/02/2024 11:03 AM CDT 02/02/2024 3:00 PM CDT Jose [place] Eaton M.D. LAB BLOOD ADD-ON [facility] [address] [place] [address], [place] [facility] [address] [place] [address] * (ABNORMAL) Clobazam and Metabolite (02/02/2024 11:03 AM CDT) Clobazam 313.0(H) 30 - 300 ng/mL 02/04/2024 3:01 AM CDT [facility] N-desmethylclobazam >[address](H) 300 - 3000 ng/mL 02/04/2024 3:01 AM CDT [facility] Comment: ----ADDITIONAL INFORMATION---- This test was developed and its performance characteristics determined by [facility] in a manner consistent with CLIA requirements. This test has not been cleared or approved by the U.S. Food and Drug Administration. Blood (Blood, Venous) 02/02/2024 11:03 AM CDT 02/03/2024 2:51 PM CDT Jose [place] Eaton M.D. LAB BLOOD ADD-ON [facility] [address] [place] [address] [facility] [address] 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
--- OUTSIDE RECORDS SUMMARY | 2024-02-28 11:40 | XMS_ITS | Encounter Summary ---
Author Organization [facility] Address [address] [place] [address] Care Team Providers Care Investigations Director Name Role Phone Elsewhere, Pcp Primary Care Provider Unavailabl e Reason for Visit * Reason Comments Scheduling Encounter Details Date Type Department Care Team ( Contact Info) Description 12/20/2023 Documentation Division of Endocrinology in [place], [place] [address] [place] [address] Anastasia Chaney, RMayNMay Scheduling Social History Tobacco Use Types Packs/Day Years [...] declined 12/11/2021 How often do you attend temple or yazidi serv ices? Patient declined 12/11/2021 Do you belong to any clubs o r organizations such as temple groups, unions, fraternal or athletic groups, or [...] heating? Not hard at all 12/11/2021 [facility] of Occupat ional Health - Occupational Stress [...] place to sleep or slept in a [facility] (including now)? No 12/11/2021 Nutrition Answer Date [...] as of this encounter Progress Notes * Anastasia Chaney R.N. - 12/20/2023 10:05 AM CDT Order in for TGJ tube replacement in GI. Patient has a history of Mantador-Gastout syndrome and developmental delay. He currently has a 8250-22 TGJ tube last replaced 06/10/23 in GI. He will need a 30 minute slot, no anesthesia at [facility], any complex doctor to do. Patient is not currently on any anticoagulants. No HEN appointments are needed at this time. HEN annual appointmentsdone June 2023. Requesting appointments next available. documented in this encounter Plan of Treatment Not on file documented as of this encounter Visit Diagnoses Not on filedocumented in this encounter Care Teams Investigations Director Relationship Specialty Start Date End Date Elsewhere, Pcp PCP - General Family Medicine 06/24/18 documented as of this encounter
--- OUTSIDE RECORDS SUMMARY | 2024-02-28 11:40 | XMS_ITS | Encounter Summary ---
Author Organization [facility] Address [address] [place] [id number] Care Team Providers Care Location And Measurement Technician Name Role Phone Elsewhere, Pcp Primary Care Provider Unavailabl e Encounter Details Date Type Department Care Team (Latest Contact Info) Description 12/29/2023 12:52 PM CDT Anesthesia Event Division of Gastroenterology in [place], [place] [address] [place] [phone] Cruz Edmonds APRN, QUALITY CONTROL ANALYST [address] [place] [phone] Anesthesia Record Procedure Summary Procedure Name Responsible Anesthesiologist Anesthesia Start Time Anesthesia Stop Time EGD ? PERCUTANEOUS ENDOSCOPIC GASTROSTOMY/JEJUNOSTOM Y Cruz Edmonds APRN, QUALITY CONTROL ANALYST 12/29/23 1252 12/29/23 1315 Events Date Time Event Comment 12/29/2023 1252 An Start Machine/Equipme nt Checked Infection Precautions Followed Procedure/Site Verified NPO Status Verified Supine Standard ASA Monitors Applied 1254 Turnover to Proceduralist 1257 Proc Start 1307 Proc Fin 1311 Turnover to ANE Staff 1314 an stop data 1315 An End I completed my handoff to the receiving staff during which we 1. Identified the patient 2. Identified the responsible provider 3. Reviewed the pertinent medical history 4. Discussed the surgical course 5. Reviewed intra-op anesthesia management and issues during anesthesia 6. Set expectations for post-procedure period 7. Allowed opportunity for questions and acknowledgement of understanding. Meds Name Total NaCl 0.9 % free drip 20 mL * Agents No agents on file. * Blood No blood administrations on file. Lines, Drains, and Airways Type Details Placement Removal Wound 03/12/23; 0900; Y; U nknown; Moisture; Abdomen; Left, Lower; GJ-Tube 03/12/23 0900 by Shanika Serna R.N., C.W.O.C.N. Wound 03/12/23; 0900; Y; U nknown; Incontinence; Groin; to Perineum and Perirectal Area 03/12/23 0900 by Shanika Serna R.N., C.W.O.C.N. Airway Adjuncts Placement Date: 12/12 03/06; Placement Time: 1504; Non-Surgical Airway Device: Nasal pharyngeal airway; Airway Size: 7.5 12/28/23 1504 by Jenny Middleton, R.R.T., L.R.T. NG/OG Tube 12/29/23; 1309; Gastrostomy-jejunostomy, Percutaneous endoscopic; Yes; Yes; 10 mL; 22 Fr; 3.5; Left, Lower, Quadrant (abdomen); Small bore (ENFit??) 12/29/23 1309 by Tricia España R.N. NG/OG Tube 06/10/23; 1318; Percutaneous endoscopic, Gastrostomy-jejunostomy; No; 22 Fr; 4.5 cm; Left, Quadrant (abdomen), Lower; Small bore (ENFit??); 12/29/23; 1309 06/10/23 1318 by Rowdy Chandler R.N. 12/29/23 1309 by Tricia España R.N. Peripheral IV Placement Date: 12/12 01/04; Placement Time: 175; Catheter Size: 20 G; Orientation: Anterior, Right; Site Prep: Chlorhexidine (Preferred); Technique: Anatomical landmarks; Insertion Attempts: 4; Removal Date: 12/30/23; Removal Time: 1144 12/26/23 1753 by Blade Mathis, R.NMay 12/30/23 1144 by Tong Gilbert R.NMay Peripheral IV Placement Date: 12/12 02/03; Placement Time: 0007; Catheter Size: 20 G; Orientation: Anterior, Lower, Right; Location: Forearm; Site Prep: Chlorhexidine (Preferred); Technique: Ultrasound guidance; Inserted by: shy; Insertion Attempts: 1; Removal Date: 12/30/23; Removal Time: 1143; Removal Reason: Patient discharged 12/27/23 0007 by Pebbles Avelar, RMayNMay 12/30/23 1144 by Tong Gilbert R.N. documented in this encounter Social History Tobacco Use Types Packs/Day Years [...] declined 12/11/2021 How often do you attend amish or protestant serv ices? Patient declined 12/11/2021 Do you belong to any clubs o r organizations such as amish groups, unions, fraternal or athletic groups, or [...] and heating? Not hard at all 12/11/2021 [facility] - Occupational Stress [...] place to sleep or slept in a usp (including now)? No 12/11/2021 Nutrition Answer Date [...] PM CDT documented as of this encounter OR Notes * Anesthesia Postprocedure Evaluation - Cruz Edmonds APRN, CRNA - 12/29/2023 1:15 PM CDT Patient: Say Hilario Procedure Summary Date: 12/29/23 Room / Location: Division of Gastroenterology in [place], [place] Anesthesia Start: 1252 Anesthesia Stop: 1315 Procedure: EGD - PERCUTANEOUS ENDOSCOPIC GASTROSTOMY/JEJUNOSTOMY Diagnosis: Scheduled Providers: Cosme Hutchinson M.D., M.H.P.E. Responsible Provider: Cruz Edmodns APRN, CRNA Anesthesia Type: MAC ASA Status: 3 Anesthesia Type: MAC Last vitals Vitals Value Taken Time BP 128/90 12/29/23 1244 Temp Pulse 86 12/29/23 1246 Resp 10 12/29/23 1246 SpO2 98 % 12/29/23 1246 Vitals shown include unfiled device data. Please reference Vitals flowsheet for most recent vital signs. Anesthesia Post Evaluation Patient Disposition: monitored unit, expectation for recovery time deferred to receiving unit Cardiovascular status: hemodynamics (HR & BP) acceptable Respiratory status: patent airway with spontaneous effort Temperature: normothermic Oxygen requirements: room air Level of consciousness: awake Pain score: pain adequately controlled and/or at baseline Post Op nausea/vomiting: none Hydration status: euvolemic * Anesthesia Preprocedure Evaluation - Cruz Edmonds APRN, CRNA - 12/29/2023 1:01 PM CDT Preprocedure Anesthesia & H&P Assessment Procedure Summary Anesthesia Start Date/Time: 12/29/23 1252 Scheduled providers: Cosme Hutchinsno M.D., M.H.P.E. Procedure: EGD - PERCUTANEOUS ENDOSCOPIC GASTROSTOMY/JEJUNOSTOMY Location: Division of Gastroenterology in [place], [place] Pertinent components of the patient's history including current problem list, medical history, surgical history, family history, social history, medications and allergies were reviewed. Present illness and pre-op diagnosis were confirmed. The planned surgery / procedure was verified with the patient / legal guardian. The patient's general health condition remains unchanged RELEVANT COMORBID CONDITIONS CV (+) Severe Sepsis With Septic Shock (HCC) NEURO (+) Cerebrovascular Disease PSYCH (+) Delirium (not otherwise specified) Other (+) Cannabis Use Unspecified Uncomplicated OBJECTIVE PHYSICAL EXAMINATION Airway (HEENT) Mallampati: III TM Distance: >3 FB Neck ROM: Limited Mouth Opening: >3 cm Cardiovascular Rhythm: Regular Rate: Normal Cardiovascular Assessment: cardiovascular normal Functional Capacity: <4 METS Pulmonary Pulmonary Assessment: Clear General / Constitutional Constitutional Assessment: Overweight General State of Health:: calm Neurological Neurologic Assessment: cognitive deficit Dental Dental Assessment: dentition intact ASSESSMENT / PLAN ANESTHESIA PLAN ASA: 3 Anesthesia Plan: MAC Patient seen and allergies reviewed, anesthesia plan and risks discussed directly with patient /legal guardian or through an adoption services manager. The use of blood products not discussed Approval to Proceed: approved for anesthesia documented in this encounter Plan of Treatment Not on file documented as of this encounter Visit Diagnoses Not on filedocumented in this encounter Administered Medications Inactive Administered Medications - up to 3 most recent administrations Medication Order MAR Action Action Date Dose Rate Site NaCl 0.9% infusion intravenous, Continuous Infusion: Per Instructions PRN, Starting on Wed12/29/23 at 1255, Anesthesia Intra-op New Bag 12/29/2023 12:55 PM CDT documented in this encounter Care Teams Location And Measurement Technician Relationship Specialty Start Date End Date Elsewhere, Pcp PCP - General Family Medicine 06/24/18 documented as of this encounter
--- OUTSIDE RECORDS SUMMARY | 2024-02-28 11:40 | XMS_ITS | Clinical Summary ---
Author Organization [facility] er Address [address] [place] [address] Care Team Providers Care Distribution [facility] Associate Name Role Phone Luis Angel Flores MD Primary Care Provider [phone] Allergies Active Allergy Reactions Criticality Noted Date Comments Aspirin 07/10/2010 Camphor 12/20/2010 Other reaction(s): Other (see comments) Converted from Generic Allergy: Eucalyptus/Menthol/ Camphor Jxjwjra-Fggcopicjj-Ihfq hol 12/01/2020 Other reaction(s): *Unknown, Other (see comments) Cefaclor 07/10/2010 Codeine GI intolerance,Unknown 12/20/2010 Other reaction(s): GI intolerance Converted from Generic Allergy: Codeinenausea/dyspe psia nausea/dyspepsia Converted from Generic Allergy: Codeinenausea/dyspe psia nausea/dyspepsia Levofloxacin 05/14/2022 Other reaction(s): Unknown Other High 04/07/2019 Vicks rub Penicillins 07/10/2010 Petrolatum 12/20/2010 Other reaction(s): Other (see comments) Converted from Generic Allergy: Eucalyptus/Menthol/ Camphor Turpentine Oil 12/20/2010 Other reaction(s): Other (see comments) Converted from Generic Allergy: Eucalyptus/Menthol/ Camphor Medications Medication Sig Dispensed Refills Start Date End Date Status DiphenhydrAMINE HCl (ALLERGY MED PO) 1-2 capsules by Per G Tube route 1 (one) time each day Allergy Pro Active Wound Dressings (AQUACEL HYDROFIBER PACKING EX) Apply 1 application topically 1 (one) time each day if needed (Fill cavity space around GT Topically.) Active Emollient (AQUAPHOR EX)Indications:Uri nary Incontinence Apply 1 application topically 2 (two) times a day And PRN Active rufinamide (BANZEL) 400 MG tablet 1 tablet (400 mg total) by Per G Tube route 1 (one) time each day Active rufinamide (BANZEL) 200 MG tablet 1 tablet (200 mg total) by Per G Tube route 1 (one) time each day Active benzoyl peroxide (BREVOXYL) 4 % external liquidIndications: Folliculitis Apply 1 application topically 1 (one) time each day Active Wtdoln-Azwrav-Jdfg sorb-Zn Sulf (CLEAR EYES COMPLETE) solution Administer 1-2 drops into affected eye(s) 4 (four) times a day if needed (Red Watery Eyes) Active diazePAM (DIASTAT) 10 mg rectal kit Insert 10-30 mg into the rectum if needed (Cluster Seizures/Extreme Agitation) If seizures/agitatio n continues, administer another 10mg. Do not exceed 30mg/day Active EMOLLIENT EXIndications:Foll iculitis Apply 1 application topically 1 (one) time each day Active Rubber Goods (ENEMA BOTTLE) misc Insert 1 Bottle into the rectum 1 (one) time each day if needed Active felbamate (FELBATOL) 600 MG/5ML suspension Take 12.5 mL (1,500 mg total) by mouth 1 (one) time each day in the morning Active felbamate (FELBATOL) 600 MG/5ML suspension 10 mL (1,200 mg total) by Per G Tube route 2 (two) times a day Active Nutritional Supplements (NUTRITIONAL DRINK MIX PO) 1 Dose by Per G Tube route 1 (one) time each day 85 ML/per hour of Replete Active levETIRAcetam (KEPPRA) 100 MG/ML solution 13 mL (1,300 mg total) by Per G Tube route 1 (one) time each day in the morning Active levETIRAcetam (KEPPRA) 100 MG/ML solution 12 mL (1,200 mg total) by Per G Tube route at bed time Active levocetirizine (XYZAL) 5 MG tabletIndications: Perennial Allergic Rhinitis Take 1 tablet (5 mg total) by mouth 1 (one) time each day if needed for allergies Active EPIDIOLEX 100 MG/ML solution 9 Active Carboxymethylcellu lose Sod PF 1 % gel Apply 1 drop to affected eye(s) Active cloBAZam (ONFI) 10 MG tablet GIVE 1&1/2 TABLETS VIA G-TUBE EVERY MORNING & 1 TABLET EVERY EVENING 5 9 Active diazePAM (VALIUM) 10 MG tablet Take 1 tablet (10 mg total) by mouth 9 Active Oral Syringe miscIndications:Co gnitive developmental delay 1 Syringe every 2 (two) hours if needed (PRN for oral medication) 2 each 9 Active Respiratory Therapy Supplies (NEBULIZER/ADULT MASK) kitIndications:Whe ezing,SOB (shortness of breath) 1 Device every 4 (four) hours if needed (Wheezing/SOB) 4 each 3 0 Active lamoTRIgine (LaMICtal) 100 MG tabletIndications: Seizure (HCC) Take 1.5 tablet in AM, 1 tablet at 2pm, 1.5 tablet PM (Use with 200mg tablet to = 350mg, 300mg, 350mg) 360 tablet 3 0 Active LAMICTAL 100 MG tabletIndications: Seizure (HCC) Take 1.5 tablet in AM, 1 tablet at 2pm, 1.5 tablet PM (Use with 200mg tablet to = 350mg, 300mg, 350mg) 360 tablet 3 0 Active LAMICTAL 200 MG tabletIndications: Seizure (HCC) TAKE 1 TABLET BY MOUTH THREE TIMES A DAY WITH 1&1/2-100MG TABS IN THE MORNING AND 9PM AND WITH 1-100MG TABLET AT 2PM (350mg, 300mg, 350mg) 180 tablet 3 0 Active Syringe, Disposable, 60 ML miscIndications:Ga strostomy tube in place (HCC) USE NEEDED 4 each 0 Active Syringe, Disposable, 10 ML miscIndications:Ga strostomy tube in place (HCC) USE NEEDED 200 each 0 Active Gauze Pads 2X2 padsIndications:Ga strostomy tube in place (HCC) SPLIT GAUZE. USE NEEDED 200 each 0 Active Disposable Gloves (RA NITRILE MEDICAL GLOVES) miscIndications:Ga strostomy tube in place (HCC) USE NEEDED 400 each 0 Active omeprazole (PriLOSEC) [address] capsule Take 1 capsule (40 mg total) by mouth daily 0 Active Distilled Water (Purified Water) liquid 0 Active Sodium Bicarbonate powder 0 Active Sulfatrim Pediatric 200-40 MG/5ML suspension TK 20 ML PO BID 0 Active oxygen (O2) gas Inhale 2 L/min continuously via nasal canula at night and PRN Active haloperidol (HALDOL) 2 MG/ML solutionIndication s:Agitation Take 0.5 mL (1 mg total) by mouth every 6 (six) hours if needed for agitation 120 mL 3 0 Active LIDOCAINE/DIPHENHY DRAMINE/AL-MG SIM 1:1:1 191-95-345-40 mg/30 mL mouth washIndications:Mo uth pain Use 15 mL in the mouth or throat every 4 (four) hours if needed (pain) 250 mL 11 1 Active temazepam (RESTORIL) 15 MG capsuleIndications :Insomnia, unspecified type Take 3 capsules (45 mg total) by mouth every night 90 capsule 5 1 Active omeprazole 2 mg/mL in sodium bicarbonateIndicat ions:Gastroesophag eal reflux disease with esophagitis, unspecified whether hemorrhage Take 20 mL (40 mg total) by mouth 1 (one) time each day 600 mL 11 1 Active ketoconazole (NIZORAL) 2 % creamIndications:F olliculitis Apply 1 application topically 2 (two) times a day if needed for itching or rash 60 g 11 1 Active povidone-iodine 10 % swabIndications:Ur inary retention Apply topically every 6 (six) hours 360 each 3 1 Active Lubricants (K-Y Jelly) gelIndications:Uri nary retention Apply 1 application topically every 6 (six) hours 113 g 11 1 Active silver sulfADIAZINE (Silvadene) 1 % creamIndications:D ermatitis Apply topically 2 (two) times a day 400 g 11 1 Active gabapentin (Neurontin) 300 MG capsuleIndications :Acute pain associated with herpes zoster Take 1 capsule (300 mg total) by mouth 3 (three) times a day if needed (Postherpatic pain) 90 capsule 1 Active clotrimazole-betam ethasone (Lotrisone) creamIndications:Y east Apply 1 application topically 2 (two) times a day if needed (scalp) 30 g 1 1 Active clindamycin (Cleocin-T) 1 % external solutionIndication s:Folliculitis Apply 1 application topically 1 (one) time each day DX: folliculitis 30 mL 1 1 Active acetaminophen (TYLENOL) 325 MG tabletIndications: Rash 2-3 tablets (650-975 mg total) by Per G Tube route every 6 (six) hours if needed for mild pain (Not to exceed 5 doses in 24 hours) 30 tablet 3 1 Active bacitracin 500 UNIT/GM ointmentIndication s:Rash Apply 1 g (500 Units total) topically 1 (one) time each day if needed for wound care (Redness and Inflammation) 15 g 3 1 Active Catheters (Self-Cath Plus Straight Tip) miscIndications:Ur inary retention USE SIX TIMES DAILY DIRECTED 180 each 11 1 Active pseudoephedrine (SUDAFED) 30 MG tabletIndications: Head congestion Take 1 tablet (30 mg total) by mouth every 4 (four) hours if needed for congestion 30 tablet 3 2 Active Control Gel Formula Dressing (DuoDerm Signal Dressing) miscIndications:Pr essure injury of coccygeal region, stage 2 (HCC) Apply 1 each topically every 3rd (third) day And PRN 10 each 3 2 Active hydrocortisone 2.5 % creamIndications:R matthew APPLY TO AFFECTED AREAS 2 (TWO) TIMES A DAY 28 g 2 Active Omeprazole+Syrspen d SF Tsering 2 MG/ML suspension 20 mg by Intragastric route 1 (one) time each day Active simethicone (MYLICON) 125 MG chewable tabletIndications: Gas bloat syndrome Chew 1 tablet (125 mg total) every 6 (six) hours if needed for flatulence 270 tablet 3 2 Active ipratropium-albute rol (DUO-NEB) 0.5-2.5 mg/3 mL nebulizer solutionIndication s:Wheezing Take 3 mL by nebulization 4 (four) times a day if needed for wheezing or shortness of breath 180 mL 11 2 Active Multiple Vitamins-Minerals (multivitamin with iron-minerals) liquidIndications: Takes dietary supplements 9 mL by Per G Tube route 1 (one) time each day 236 mL 11 2 Active mineral oil enemaIndications:C hronic constipation Insert 1 enema into the rectum 1 (one) time each day if needed for constipation If no results from Miralax, Suppository, and Fleets 30 enema 3 3 Active polyethylene glycol (MiraLax) 17 GM/SCOOP powderIndications: Chronic constipation Take 17 g by mouth 2 (two) times a day 850 g 11 3 Active magnesium hydroxide (MILK OF MAGNESIA) 400 MG/5ML suspensionIndicati ons:Chronic constipation Take 30 mL by mouth 1 (one) time each day if needed for constipation If no results from Miralax, Dulcolax Sup, Fleet, and Mineral Oil enemas. 769 mL 11 3 Active Loperamide HCl 2 MG/15ML solutionIndication s:Diarrhea, unspecified type Take 15 mL by mouth if needed (Diarrhea) 120 mL 11 3 Active bisacodyl (Dulcolax) 10 MG suppositoryIndicat ions:Chronic constipation Insert 1 suppository (10 mg total) into the rectum 1 (one) time each day if needed for constipation If no results from Miralax in AM 50 suppository 3 3 Active albuterol HFA (PROVENTIL HFA;VENTOLIN HFA) 108 (90 Base) MCG/ACT inhalerIndications :Wheezing Inhale 2 puffs every 4 (four) hours if needed for wheezing or shortness of breath 18 g 11 3 Active albuterol (2.5 MG/3ML) 0.083% nebulizer solutionIndication s:Wheezing,SOB (shortness of breath) INHALE CONTENTS OF 1 VIAL VIA NEBULIZER EVERY 4 HOURS IF NEEDED FOR WHEEZING OR SHORTNESS OF BREATH 90 mL 3 3 Active cyclobenzaprine (FLEXERIL) 10 MG tabletIndications: Muscle spasm Take 1 tablet (10 mg total) by mouth 3 (three) times a day if needed for muscle spasms 90 tablet 1 3 Active tamsulosin (FLOMAX) 0.4 MG 24 hr capsuleIndications :Ureteral stone,Bladder spasms TAKE 1 CAPSULE(0.4 MG) BY MOUTH EVERY DAY 90 capsule 3 Active silver nitrate 75-25 % applicatorIndicati ons:Attention to G-tube (HCC) Apply topically 1 (one) time each day if needed (Stoma care) 100 each 3 Active mupirocin (BACTROBAN) 2 % ointmentIndication s:Skin Breakdown Apply 1 application topically 3 (three) times a day Until resolved, then TID PRN 30 g 1 3 Active torsemide (DEMADEX) 10 MG tabletIndications: Edema, unspecified type TAKE 1 TABLET(10 MG) BY MOUTH EVERY DAY NEEDED FOR SWELLING 90 tablet 3 Active oxybutynin XL (DITROPAN-XL) 15 MG 24 hr tabletIndications: Bladder spasms TAKE 1 TABLET(15 MG) BY MOUTH EVERY DAY. DO NOT CRUSH, CHEW, OR SPLIT 90 tablet 3 4 Active baclofen (LIORESAL) 20 MG tabletIndications: Spasm of muscle TAKE 1 TABLET(20 MG) VIA GTUBE FOUR TIMES DAILY. DO NOT EXCEED 80 MG DAILY 360 tablet 3 4 Active LORazepam (ATIVAN) 2 MG tabletIndications: Agitation TAKE 1 TABLET(2 MG) BY MOUTH EVERY DAY NEEDED FOR AGITATION 30 tablet 2 4 Active azelastine (ASTELIN) 0.1 % nasal sprayIndications:A llergy, initial encounter INSTILL 2 SPRAYS INTO EACH NOSTRIL TWICE DAILY 30 mL 11 4 Active mometasone (NASONEX) 50 MCG/ACT nasal sprayIndications:A llergy, initial encounter INSTILL 2 SPRAYS INTO EACH NOSTRIL DAILY 17 g 3 4 Active Sodium Fluoride 1.1 % gelIndications:Poo r oral hygiene Use in place of regular toothpaste and brush two times daily. Spit out excess. 168 g 3 4 Active triamcinolone (Triderm) 0.1 % creamIndications:D ermatitis Apply to affected area 2 times daily as needed. Avoid face and groin. 454 g 1 4 02/01/20 25 Active HYDROcodone-acetam inophen ([place]) 5-325 MG per tabletIndications: Chronic pain syndrome Take 2 tablets by mouth every 6 (six) hours if needed for severe pain 240 tablet 4 Active HYDROcodone-acetam inophen ([place]) 5-325 MG per tabletIndications: Chronic pain syndrome Take 2 tablets by mouth every 6 (six) hours if needed for severe pain 240 tablet 4 02/17/20 24 Discontinu ed(Reorder ) Active Problems Problem Noted Date Diagnosed Date Encephalopathy chronic 07/12/2020 Intractable epilepsy without status epilepticus 07/12/2020 Gastroesophageal reflux disease with esophagitis 07/12/2020 Encounters Date Type Department Care Team Description 02/01/2024 Orders Only [address] [address] Luis Angel Flores MD Dermatitis (Primary Dx) 01/18/2024 3:45 PM CDT Telemedicine [address] [address] Luis Angel Flores MD 12/31/[address] [address] Luis Angel Flores MD TCM Follow-up from Last 3 Months Immunizations Name Administration Dates Next Due DTP 02/11/1991, 2,1980,07/14,1980 INFLUENZA QUADRIVALENT MDV (IM) 06/04/2021 Influenza (IM) Preservative Free 010,06/26/2008,07/05/2007,07/12,07/16/2005 Influenza 6mo-64yrs Quad Pre servative Free IM 06/02/2022,05/28/2020,06/27/2019,07/06,06/01/2017,07/16/2016 Influenza TIV (IM) 07/06/2018, 7,06/24/2016,06/27,07/01/2014,06/27/2014,06/29/2012 ,06/19/2011,09/06/2010,07/10/2004,08/13 Influenza, Unspecified 05/26/2017,2015,06/27/2015,06/27,06/29/2012,07/07/2010,06/26/2008 ,07/05/2007,07/12/2006,07/16/2005,06/14,08/27/2003 MMR 05/14/1981 Pneumococcal Conjugate 13-Valent 01/13/2016 Pneumococcal Polysaccharide 09/20/2006 Polio, Unspecified 1980,1980, 980 TD Preservative Free 07/07/2010 Td 07/07/2010 Tdap 07/10/2010 Zoster Recombinant 02/14/2019,10/14/2018, 018 Family History Medical History Relation Comments Arthritis Maternal Grandfather Asthma Maternal Grandfather Depression Maternal Grandfather Diabetes Maternal Grandfather Heart disease Maternal Grandfather Hyperlipidemia Maternal Grandfather Kidney disease Maternal Grandfather Arthritis Maternal Grandmother Asthma Maternal Grandmother COPD Maternal Grandmother Depression Maternal Grandmother Heart disease Maternal Grandmother Hyperlipidemia Maternal Grandmother Mental illness Maternal Grandmother Vision loss Maternal Grandmother Anxiety disorder Mother Hyperlipidemia Mother Miscarriages / Stillbirths Mother Arthritis Paternal Grandfather Depression Paternal Grandfather Heart disease Paternal Grandfather Hyperlipidemia Paternal Grandfather Arthritis Paternal Grandmother Depression Paternal Grandmother Diabetes Paternal Grandmother Hearing loss Paternal Grandmother Heart disease Paternal Grandmother Hyperlipidemia Paternal Grandmother Vision loss Paternal Grandmother Relation Status Comments Maternal Grandfather Maternal Grandmother Mother Paternal Grandfather Paternal Grandmother Social History Tobacco Use Types Packs/Day Years Used Date Smoking Tobacco: Never Smokeless Tobacco: Never Alcohol Use Standard Drinks/Week Comments Never 0 (1 standard drink = 0.6 oz pur e alcohol) AUDIT-C Answer Date Recorded Q1: How often do you have a drink containing alcohol? Never 01/18/2024 Q2: How many drinks containi ng alcohol do you have on a typical day when you are drinking? Patient does not drink Q3: How often do you have si x or more drinks on one occasion? Never 01/18/2024 Overall Financial Resource Strain (CARDIA) Answe r Date Recorded How hard is it for you to pa y for the very basics like food, housing, medical care, and heating? Patient declined 01/18/2024 PHQ-2 Answer Date Recorded PHQ-9 Total Score 6 01/18/2024 Hunger Vital Sign Answer Date Recorded Within the past 12 months, y ou worried that your food would run out before you got the money to buy more. Never true 01/18/20 24 Within the past 12 months, t he food you bought just didn't last and you didn't have money to get more. Never true 01/18/2024 PRAPARE - Transportation Answer Date Re corded In the past 12 months, has l ack of transportation kept you from medical appointments or from getting medications? No 03/2024 In the past 12 months, has l ack of transportation kept you from meetings, work, or from getting things needed for daily living? No 01/18/2024 Housing Stability Vital Sign Answer Edil e Recorded In the last 12 months, was t here a time when you were not able to pay the mortgage or rent on time? No 01/18/2024 [address] Lived in the Last Year Not on f ile 01/18/2024 In the last 12 months, was t here a time when you did not have a steady place to sleep or slept in a retirement (including now)? 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 Oxygen Saturation 99% 10/06/2022 1:05 PM MARINE DRAFTER Inhaled Oxygen Concentration - - Weight 61.7 kg (136 lb) 06/02/2022 11:18 AM CDT Height 149.9 cm (4' 11) 06/02/2022 11:18 AM CDT Body Mass Index 27.47 06/02/2022 11:18 AM CDT Plan of Treatment Health Maintenance Due Date Last Done Comments Medicare Annual Wellness Visit (AWV) 02/15/1998 Pneumococcal Vaccine: Pediatrics (0 to 5 Years) and At-Risk Patients (6 to 64 Years) (3 of 3 - PPSV23 or PCV20) 03/09/2016 01/13/2016, 09/20/2006 DTaP,Tdap,and Td Vaccines (9 - Td or Tdap) 07/10/2020 07/10/2010, 07/07/2010, 07/07/2010, Additional history exists COVID-19 Vaccine (2022- season) 2023 04/28/2022, 06/11/2021, 12/18/2020, Additional history exists Influenza Vaccine (Season Ended) 2024 06/02/2022, 06/04/2021, 05/28/2020, Additional history exists HPV Vaccines Aged Out No longer eligi ble based on patient's age to complete this topic Care Teams Distribution Center Associate Relationship Specialty Start Date End Date Luis Angel Flores MD [address] [place] [phone] PCP - General 05/27/18
--- OUTSIDE RECORDS SUMMARY | 2024-02-28 11:40 | XMS_ITS | Encounter Summary ---
Author Organization [facility] er Address [address] [place] [address] Care Team Providers Care Postbed Stitcher Name Role Phone Luis Angel Flores MD Primary Care Provider [phone] Encounter Details Date Type Department Care Team (Late st Contact Info) Description 01/18/2024 3:45 PM CDT Telemedicine [address] [address] Luis Angel Flores MD [address] [place] [phone] Social History Tobacco Use Types Packs/Day Years [...] place to sleep or slept in a long term (including now)? No 01/18/2024 Sex and Gender Information Value Date Recorded Sex Assigned at Not on file Gender Identity Not on file Sexual Orientation Not on file documented as of this encounter Progress Notes * Luis Angel Flores MD - 01/18/2024 3:45 PM CDT Subjective Patient ID: Say Hilario is a 43 y.o. male. HPI I saw him today via telehealth with mother. She consented to this visit. He does have very severe chronic encephalopathy. Clinically stable. Pain control continues to do well on hydrocodone. No side effect problems. His mother has no new concerns. Also has intractable epilepsy. I am glad to hear things have been doing a little better. No new neurologic complaints. Past medical history: 1. 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 Intractable epilepsy 3. GERD 4. Recurrent aspiration pneumonia Current medications Review of Systems Objective Physical Exam On examination today appears stable otherwise no distress. Assessment/Plan 1. Very severe chronic encephalopathy with secondary chronic pain syndrome. Doing well hydrocodone therefore it will be continued. I will recheck things in 6 months. 2. Intractable epilepsy. Doing well on current antiepileptic medications therefore they will be continued. I will recheck things in 6 months. documented in this encounter Plan of Treatment Not on file documented as of this encounter Visit Diagnoses Not on filedocumented in this encounter Care Teams Postbed Stitcher Relationship Specialty Start Date End Date Luis Angel Flores MD [address] [place] [phone] PCP - General 05/27/18 documented as of this encounter
--- OUTSIDE RECORDS SUMMARY | 2024-02-28 11:40 | XMS_ITS | Encounter Summary ---
Author Organization [facility] Address [address] [place] [id number] Care Team Providers Care Crime Scene Specialist Name Role Phone Elsewhere, Pcp Primary Care Provider Unavailabl e Reason for Visit * Reason Comments Fever J-tube fell out Altered Mental Status Encounter Details Date Type Department Care Team (Latest Contact Info) Description 12/26/2023 4:16 PM CDT - 12/30/2023 12:14 PM CDT Hospital Encounter [facility], [facility], [facility], Sixth Floor [address] [place] [phone] Jamia Lozano M.D. [address] [place] [phone] Adnria Shaffer M.B.B.S., M.D. [address] [place] [phone] Wes Person M.B.B.S. [address] [place] [address] [phone] Feliciano Alejandre M.D., Ph.D. [address] [place] [phone] Pneumonia (Primary Dx); Sepsis (HCC); Aftercare Feeding Tube; Dehydration; Diarrhea; Acidosis Lactic; Dysphagia Oropharyngeal Phase [R13.12] Discharge Disposition: Home or Self Care Social [...] declined 12/11/2021 How often do you attend sikh or congregational serv ices? Patient declined 12/11/2021 Do you belong to any clubs o r organizations such as sikh groups, unions, fraternal or athletic groups, or [...] and heating? Not hard at all 12/11/2021 [facility] of Occupat ional Health - Occupational Stress [...] place to sleep or slept in a fci (including now)? No 12/11/2021 Nutrition Answer Date [...] PM CDT documented as of this encounter Last Filed Vital Signs Vital Sign Reading [...] Mass Index 28.85 12/27/2023 9:09 AM CDT documented in this encounter Discharge Summaries * Ralph Neil M.D. - 12/30/2023 10:11 AM CDT DISCHARGE SUMMARY BRIEF OVERVIEW Hospital: [facility] Discharge Provider: Feliciano Alejandre M.D. Primary Team: [facility] Medicine 3 Primary Care Providers: Elsewhere, Pcp (General) No address on file Primary Care Provider Phone Number: None Primary Care Provider Fax Number: None Admission Date: 12/26/2023 Discharge Date: 12/30/2023 PRINCIPAL DIAGNOSIS Aspiration Pneumonia Secondary to Procedure SECONDARY DIAGNOSES Principal Problem: Aspiration Pneumonia Secondary to Procedure Active Problems: Leukemia Lymphocytic Acute Remission (HCC) Seizure (HCC) [place] Gastaut Syndrome (HCC) Dysphagia Reflux Esophageal Nephrolithiasis Brain Stem Stroke Syndrome Intellectual Disability Profound Anemia Macrocytic Jejunostomy Status Post (HCC) Apnea Sleep Obstructive Hyponatremia Change Mental Status Resolved Problems: * No resolved hospital problems. * DISCHARGE DISPOSITION Home or Self Care [1] ACTIVE ISSUES REQUIRING FOLLOW UP Tube will need to be replaced in 3 months (sooner if needed) If at anytime questions or concerns related to tube site or tube call [phone] Wednesday - Wednesday 7;30 am-4:30 pm or after hours, weekends, holidays call [facility] drying tunnel operator [phone] ask them to page [phone] and wait for MD to answer. May need to repeat call if they don't answer they could be busy doing procedure. Sleep medicine follow up has been arranged Strongly recommend PCP follow up within 1 week OUTPATIENT FOLLOW UP Scheduled Appointments 01/12/2024 9:30 Jessy Lilly M.D. Sleep Medicine For appointment details refer to your Patient Appointment Guide. TEST RESULTS PENDING AT DISCHARGE Pending Labs Order Current Status Bacteria / Christopher Culture, Blood #1 Preliminary result Bacteria / Christopher Culture, Blood #2 Preliminary result DETAILS OF HOSPITAL STAY REASON FOR ADMISSION Acidosis Lactic Pneumonia Diarrhea Sepsis (HCC) Dehydration Aftercare Feeding Tube HOSPITAL COURSE Say Hilario is a 43 y.o. male admitted on 12/26 for GJ tube dislodgement, fever, diarrhea, and increased somnolence with concern for aspiration pneumonia. Past medical history significant for Ayaan-Gastaut syndrome, ALL (age 20 months, s/p chemoradiation), developmental delay (non verbal at baseline), chronic G-tube (placed age 10, converted to GJ tube 2019), lateral medullary stroke (age 12), recurrent seizures (1-4 seizures daily, on Keppra/Lamicta l/Clobazam/felbamate/rufinamide), CHEKO on nocturnal 1 L O2, urosepsis 02/2023 in the setting of UTI with left obstructing ureteral stone s/p ureteral stent placement. ED: In the emergency department, noted to be mildly hyponatremic with an elevated lactate level to 2.7.Chest x-ray demonstrated persistent patchy pulmonary opacities throughout both lungs. Emergency department was able to replace his GJ tube, and CT confirmed his tube terminates in the proximal jejunum with no other acute intra-abdominal findings. Medicine 6: FLOW COORDINATOR was called overnight on 12/26/2023 for increased somnolence, with decreased ability to respond to verbal stimuli. VBG demonstrated some respiratory acidosis, however lactate was improved. He was transferred to the MICU for further evaluation and management. MICU: Upon arrival to the MICU, he was afebrile and hemodynamically stable. Mental status at baseline permother. Antibiotics were continued for concern of aspiration pneumonia. A formal swallow study was without evidence of aspiration. Sleep Medicine was consulted given concern for sleep apnea and recommended outpatient follow up with an outpatient polysomnography test. EEGwas performed which demonstrated moderate degree of diffuse nonspecific slow wave abnormalities. Hebriefly required a narcan drip after Dilaudid 2mg PO for somnolence and decreased respiratory rate with hypoxia. Patient returned to cognitive and respiratory baseline. GJ tube exchange without incident. It is recommended to replace tube in 3 months. Patient was discharged with sleep medicine follow up scheduled. Post hospital PCP visit was strongly recommended. Mother of patient reports that they have supplemental oxygen at home and all necessary supplies. CONSULTS ORDERED DURING THIS ADMISSION IP CONSULT TO DIETITIAN IP CONSULT TO SLEEP MEDICINE IP CONSULT TO DIETITIAN IP CONSULT TO NEUROLOGY CONDITION AT DISCHARGE stable Discharge instructions were provided to the patient and caregiver(s). Total time spent in discharge services today: 60 minutes. documented in this encounter Discharge Instructions * Discharge Instructions* Ralph Neil M.D. - 12/30/2023 7:46 AM CDT - Tube will need to be replaced in 3 months (sooner if needed) - If at anytime questions or concerns related to tube site or tube call [phone] Wednesday - Wednesday 7;30 am-4:30 pm or after hours, weekends, holidays call [facility] drying tunnel operator [phone] ask themto page [phone] and wait for MD to answer. May need to repeat call if they don't answer they could be busy doing procedure. Intranasal naloxone has been prescribed and sent to your pharmacy. * Patient Instructions* Imelda Judge M.S., [facility]-REPAIR TECHNICIAN - 12/30/2023 11:38 AM CDT SPEECH PATHOLOGY DISCHARGE SUMMARY DIAGNOSIS: Moderate oral stage dysphagia, pharyngeal stage WFL SPEECH PATHOLOGY TREATMENT COURSE: Mr. Hilario was seen for dysphagia during this hospitalization. A VFSS was performed on 12/30/2023 which showed moderate oral stage dysphagia characterized by reduced bolus control with anterior loss and impaired mastication with some of the cookie remaining unchewed in the anterior sulcus. The pharyngeal stage of swallow was grossly within functional limits with post-swallow residue of the cookiein the valleculae which appeared to be more related to the impaired mastication/bolus prep. This was cleared with an applesauce bolus. DYSPHAGIA RECOMMENDATIONS: Continue feeding tube for primary nutrition, hydration, and medications. Continue oral intake for pleasure: Softer, moister foods cut small Watch for the swallow to be initiated before offering another bite/sip Complete thorough oral care to reduce oral bacteria as able. ONGOING SPEECH PATHOLOGY RECOMMENDATIONS: No further Speech Pathology services are recommended at this time. If the patient develops loss of function or has a change in status an evaluation may be warranted. Discharge recommendations were provided on 12/30/2023 by Imelda Judge M.S., CCC-REPAIR TECHNICIAN Should you have questions/concerns regarding Speech Pathology services received during this hospitalization please contact: [facility], Department of Neurology, . * Discharge Instr - Diet* Anastasiya Davalos, SHAYY, LD, M.P.H. - 12/30/2023 11:28 AM CDT NUTRITION Date completed: 12/30/2023 Oral diet: Per REPAIR TECHNICIAN Feeding tube information: Transgastric Jejunal 22 [place] Who placed the tube: [place] [id number] Date of tube placement: December 29, 2023 To maintain enteral access the patient's feeding tube should be replaced at regular intervals. Recommended replacement for feeding tube with internal balloon is every 3-5 months. Tube feeding program: Patient to continue on previous home tube feeding program. Vitamin/mineral supplementation: Formula at goal volume provides less than 100% of the Recommended Daily Intake for vitamins and minerals. One dose daily liquid multivitamin with minerals recommendedfor additional supplementation. This program provides 1296 calories and 82 grams protein per day. Monitor your weight 1-2 time(s) per week. Anthropometrics: Weight: 70.2 kg Height: 156 cm BMI (Calculated): 28.8 kg/m?? Estimated Needs: Total Calorie Needs: 5573-4434 calories/day Method to Estimate Energy Needs: kcal/kg (15-20 kcal/kg) Weight Used for Equation Calculations: 67.8 kg Total Protein Needs: 81 - 102 grams/day Method to Estimate Protein Needs (g/kg): 1.2 - 1.5 gm/kg Weight Used to Calculate Protein Needs (Kg): 67.8 kg To schedule an appointment with Home Enteral Nutrition team, call . For questions about the recommended tube feeding program and care of your tube, contact Home Enteral Nutrition clinic department. Wednesday - Wednesday, 8 a.m. - 4 p.m. documented in this encounter Medications at Time of Discharge [...] Apply to GT site for skin protectant. doxycycline monohydrate (ADOXA) 100 mg tabletIndications:Res piratory tract infection, community acquired Administer 1 tablet (100 mg total) via gastric tube 2 (two) times a day before breakfast and dinner for 2 doses Indications: Respiratory tract infection, community acquired. 2 tablet 12/30/2023 12/31/2023 documented as of this encounter Progress Notes * Anastasiya Davalos, MARYN, LD, M.P.H. - 12/30/2023 9:26 AM CDT Nutrition Care Plan Follow Up Clinical Nutrition continuing to follow patient requiring nutrition support. ASSESSMENT Tube feeds initiated 12/26; advancing towards goal per protocol. Was at 40 ml/hr late 12/27; TF stopped at midnight r/t procedures 12/28. Pt had TGJ tube replaced yesterday. Tube feedings were restartedat 20 mL/hr last evening and advancing back to goal rate. VFSS scheduled today with REPAIR TECHNICIAN. GI Tubes (Adults) Gastrostomy-jejunostomy;Percutaneous endoscopic 22 Fr Left;Lower;Quadrant (abdomen) (Active) Placement Date/Time: 12/29/23 1309 Placed by: AL6 GI Tube Type: Gastrostomy-jejunostomy;Percutaneous endoscopic Low Profile? : Yes Does it have a balloon? : Yes Balloon Volume: 10 mL GI Tube Size: 22Fr Stoma Length (cm): 3.5 Tube Location: L... Current nutrition orders: Formula: Peptamen AF Goal: 45 mL/hr x 24 hours Enteral nutrition as recommended will provide 1296 total calories and 82 grams of protein and less than 100% of the Reference Daily Intake of vitamins and minerals per day. Medications: Scheduled Meds:azelastine, 1 spray, each nostril, Daily baclofen, 20 mg, gastric tube, 4x Daily cannabidioL, 400 mg, gastric tube, QAM cannabidioL, 600 mg, gastric tube, Daily at bedtime cefTRIAXone, 2 g, intravenous, Once cloBAZam, 10 mg, gastric tube, Daily at bedtime cloBAZam, 15 mg, gastric tube, QAM doxycycline monohydrate, 100 mg, gastric tube, BID before breakfast and dinner felbamate, 1,200 mg, gastric tube, BID felbamate, 1,500 mg, gastric tube, Daily before breakfast fluticasone propionate, 2 spray, each nostril, Daily hydrocortisone, 1 Application, topical, BID lamoTRIgine, 300 mg, gastric tube, Daily at bedtime lamoTRIgine, 350 mg, gastric tube, BID levETIRAcetam, 1,500 mg, gastric tube, QAM levETIRAcetam, 1,600 mg, gastric tube, Daily at bedtime loratadine, 10 mg, gastric tube, Daily multivitamin/mineral-adult, 1 tablet, gastric tube, Daily NaCl, 1,000 mL, intravenous, Once nystatin, 1 Application, topical, BID nystatin, 1 Application, topical, TID polyethylene glycol, 17 g, oral, Daily rufinamide, 200 mg, gastric tube, QAM rufinamide, 400 mg, gastric tube, Daily at bedtime sennosides, 8.6 mg, gastric tube, BID sodium chloride, 3 mL, intravenous, Q12H JULIO sodium chloride, 3 mL, intravenous, Q12H JULIO zinc oxide, 1 g, topical, BID Pertinent Labs: Last 3 results Lab Units 12/30/23 0321 12/29/23 0401 12/28/23 1519 12/28/23 0642 POC SODIUM mmol/L -- -- 139 -- SODIUM mmol/L 138 140 -- 139 POTASSIUM mmol/L 3.8 4.3 -- 3.8 POC POTASSIUM VENOUS mmol/L -- -- 3.8 -- CHLORIDE mmol/L 101 103 -- 105 BUN mg/dL 9 11 -- 7* CREATININE mg/dL 0.35* 0.36* -- 0.37* GI Function: last bowel movement documented was 12/29; type 6 per instrument repair specialist. Estimated Needs: Calories: 9104-8772 calories/day Method to Estimate Energy Needs: kcal/kg (15-20 kcal/kg) Weight Used for Equation Calculations: 67.8 kg Protein: 81 - 102 grams/day Method to Estimate Protein Needs (g/kg): 1.2 - 1.5 gm/kg Weight Used to Calculate Protein Needs (Kg): 67.8 kg PLAN No changes at this time; continue current nutrition orders Follow up on results of VFSS For questions about patient's nutritional care please contact pager [phone] on weekdays 07:30-16:00 or [phone] on weekends/holidays. * Little Johnson M.D. 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 Interval events: -PEG tube exchange yesterday,with no complications. -Mental status at basleline. OBJECTIVE Vitals: 12/30/23 0630 BP: 124/75 Pulse: 90 Resp: 18 Temp: 36.6 ??C SpO2: 96% Physical exam General: not in acute distress Heart: Regular Chest: Symmetric, no accessory muscle use Abdomen:nondistended, PEG tube in place Extremities: 1+ pedal edema bilaterally Skin: Dry, warm Neuro: alert, nonfocal,opens eyes spontaneously ASSESSMENT / PLAN #1 Altered mental status secondary to medications and likely hypoactive delirium #2 Pneumonia, community-acquired versus aspiration #3 Dysphagia, on long-term tube feeds via a gastrojejunal tube (placed 2019, previously G-tube); dislodged at initial presentation and repositioned in ER #4 Ayaan-Gastaut syndrome with recurrent seizures #5 Severe cognitive delay #6 Likely obstructive sleep apnea #7 History of ALL, status post treatment with chemoradiation at 20 months #8 History of recurrent aspiration pneumonias #9 History of prior urinary infections secondary to nephrolithiasis, 2022 #10 History of lateral medullary stroke, age 12 #10 Code status: Full code Andrés is now back to his baseline per his mother at bedside. I think his mental status changes were largely driven by medications as well as a component of hypoactive delirium in the setting of aspiration pneumonia. EEG was reassuring and I do not think that his mentation changes were related to seizures. He will complete a 5-day antibiotic course today, and he is ready to be discharged home today. Plan: -Swallow study today. Given recurrent aspiration events, it is important to know if it is still safe for him to continue with nutrition by mouth. -Continue home antiepileptics. PRN benzos if generalized tonic-clonic seizures. -Will give one last dose of ceftriaxone before discharge and give a prescription for oral doxy to complete a 5-day course. -Outpatient sleep follow-up is scheduled -Since he is on chronic opioids at home,clarified with mother that he only gets one pill of hydrocodone 5 as needed and not two pills. Will discharge with a prescription for intranasal naloxone as well. Dispo: Discharge home Case discussed with Dr Pili Zeearilys [facility]??nMD Pulmonary/ Critical Care Medicine Associated attestation - Feliciano Alejandre M.D., Ph.D. - 12/30/2023 3:27 PM CDT I saw and evaluated the patient, participating in the small portions of the service. I reviewed the resident/fellow???s note. I agree with the resident/fellow???s findings and plan. The PEJ tube was exchanged yesterday by GI without any sedative medication and without incident. Noevent overnight. This morning, I discussed with the patient's mother. She is very happy by the progress and eager to have his son dismissed home. We discussed about having nasal naloxone available athome, and being careful about the use of potent narcotic medication. A swallow study is scheduled this morning and the patient will be discharged home today. * Oklahoma CityDmitryia Radha, RDN, LD - 12/29/2023 8:41 AM CDT Nutrition Care Plan Follow Up Clinical Nutrition continuing to follow patient requiring nutrition support. ASSESSMENT Tube feeds initiated 12/26; advancing towards goal per protocol. Was at 40 ml/hr late last evening; TF stopped at midnight r/t procedures today. Pt is planning for tube exchange. VFSS scheduled for later this afternoon as well. Current nutrition orders: Formula: Peptamen AF Goal: 45 mL/hr x 24 hours Enteral nutrition as recommended will provide 1296 total calories and 82 grams of protein and less than 100% of the Reference Daily Intake of vitamins and minerals per day. Medications: Scheduled Meds:azelastine, 1 spray, each nostril, Daily baclofen, 20 mg, gastric tube, 4x Daily cannabidioL, 400 mg, gastric tube, QAM cannabidioL, 600 mg, gastric tube, Daily at bedtime cefTRIAXone, 2 g, intravenous, Q24H cloBAZam, 10 mg, gastric tube, Daily at bedtime cloBAZam, 15 mg, gastric tube, QAM doxycycline monohydrate, 100 mg, gastric tube, BID before breakfast and dinner felbamate, 1,200 mg, gastric tube, BID felbamate, 1,500 mg, gastric tube, Daily before breakfast fluticasone propionate, 2 spray, each nostril, Daily hydrocortisone, 1 Application, topical, BID lamoTRIgine, 300 mg, gastric tube, Daily at bedtime lamoTRIgine, 350 mg, gastric tube, BID levETIRAcetam, 1,500 mg, gastric tube, QAM levETIRAcetam, 1,600 mg, gastric tube, Daily at bedtime loratadine, 10 mg, gastric tube, Daily multivitamin/mineral-adult, 1 tablet, gastric tube, Daily NaCl, 1,000 mL, intravenous, Once nystatin, 1 Application, topical, BID nystatin, 1 Application, topical, TID polyethylene glycol, 17 g, oral, Daily rufinamide, 200 mg, gastric tube, QAM rufinamide, 400 mg, gastric tube, Daily at bedtime sennosides, 8.6 mg, gastric tube, BID sodium chloride, 3 mL, intravenous, Q12H JULIO sodium chloride, 3 mL, intravenous, Q12H JULIO zinc oxide, 1 g, topical, BID Pertinent Labs: Last 3 results Lab Units 12/29/23 0401 12/28/23 1519 12/28/23 0642 12/27/23 0134 12/27/23 0134 12/26/23 2350 12/26/23 8419 SODIUM P mmol/L -- -- -- -- -- -- 131* POC SODIUM mmol/L -- 139 -- -- -- 138 -- SODIUM mmol/L 140 -- 139 < > 139 -- -- POTASSIUM mmol/L 4.3 -- 3.8 -- 4.4 -- -- POC POTASSIUM VENOUS mmol/L -- 3.8 -- -- -- 4.5 -- POTASSIUM P mmol/L -- -- -- -- -- -- 4.4 CHLORIDE P mmol/L -- -- -- -- -- -- 92* CHLORIDE mmol/L 103 -- 105 -- 105 -- -- BUN P mg/dL -- -- -- -- -- -- 8 BUN mg/dL 11 -- 7* -- 5* -- -- CREATININE mg/dL 0.36* -- 0.37* -- 0.39* 0.40* -- 0.40* < > = values in this interval not displayed. GI Function: last bowel movement documented was 12/28; type 6 per instrument repair specialist. Estimated Needs: Calories: 9145-6620 calories/day Method to Estimate Energy Needs: kcal/kg (15-20 kcal/kg) Weight Used for Equation Calculations: 67.8 kg Protein: 81 - 102 grams/day Method to Estimate Protein Needs (g/kg): 1.2 - 1.5 gm/kg Weight Used to Calculate Protein Needs (Kg): 67.8 kg PLAN No changes at this time; continue current nutrition orders Follow up on results of VFSS For questions about patient's nutritional care please contact pager [phone] on weekdays 07:30-16:00 or [phone] on weekends/holidays. * Little Johnson M.D. 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 Interval events: -He received a dose of oral hydromorphone for pain yesterday. Subsequently, he became more somnolent and bradypneic, with respiratory acidosis. He responded to narcan administration, but he required several doses and ultimately a narcan drip. Afterwards, he came back to his baseline. -This morning, at baseline per mother OBJECTIVE Vitals: 12/29/23 0645 BP: Pulse: 88 Resp: 20 Temp: SpO2: 95% Physical exam General: not in acute distress, Heart: Regular Chest: Symmetric, no accessory muscle use Abdomen:nondistended, PEG tube Extremities: 1+ pedal edema bilaterally Skin: Dry, warm Neuro: alert, nonfocal,opens eyes spontaneously ASSESSMENT / PLAN #1 Altered mental status secondary to medications and likely hypoactive delirium #2 Pneumonia, community-acquired versus aspiration #3 Dysphagia, on long-term tube feeds via a gastrojejunal tube (placed 2019, previously G-tube); dislodged at initial presentation and repositioned in ER #4 [place]-Gastaut syndrome with recurrent seizures #5 Severe cognitive delay #6 Likely obstructive sleep apnea #7 History of ALL, status post treatment with chemoradiation at 20 months #8 History of recurrent aspiration pneumonias #9 History of prior urinary infections secondary to nephrolithiasis, 2022 #10 History of lateral medullary stroke, age 12 #10 Code status: Full code Unfortunately, Andrés required a narcan drip for respiratory depression after a single dose of hydromorphone. After treating with naloxone, he came back to his baseline. He is clearly very sensitive tonarcotics and will minimize narcotic use in the future. Today, he is scheduled to have PEG tube exchange. We will make sure to let the anesthesia/ GI team know about his sensitivity to narcotics. Plan: -Gastrojejunal tube exchange today -Swallow study this afternoon. -Continue home antiepileptics. PRN benzos if generalized tonic-clonic seizures. Epilepsy team consulted. -Continue doxy+ceftriaxone for CAP for a 5 day course (end-date 12/29) -Continue tube feeds. Hold intake until swallow evaluation is done. -Will need outpatient sleep study. Appreciate sleep medicine recommendations and assistance scheduling when he is ready for discharge. Will keep in the ICU, as he might require sedation for procedure, which has led to altered mentation in the past. Case discussed with Dr Pili Bhat??MD perez Pulmonary/ Critical Care Medicine Associated attestation - Feliciano Alejandre M.D., Ph.D. - 12/29/2023 5:29 PM CDT I saw and evaluated the patient, participating in the small portions of the service. I reviewed the resident/fellow???s note. I agree with the resident/fellow???s findings and plan. The patient received the 2 mg hydromorphone yesterday for severe pain which is technically appropriate based on his use of hydrocodone. However he developed respiratory failure and had to be given naloxone. He has recovered fully. Today he had the PEJ tube placed. This was placed without any sedation and was well tolerated. I anticipate the patient will be able to go home tomorrow. * Ralph Neil M.D. - 12/29/2023 6:23 AM CDT [facility] HOSPITAL Medicine 3 Progress Note SUBJECTIVE Brief Summary: Say Hilario is a 43 y.o. male admitted on 12/26 for aspiration pneumonia. 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 Interval Events: Patient received 2 mg dilaudid yesterday for pain control, as the patient had increased BP and heart rate. At home he takes [place] (10 mg hydrocodone/acetaminophen). Patient became difficulty to arouse with decreased respiratory rate. He received 5 doses of Narcan before Narco drip was initiated. There was a subsequent improvement in respiratory status with pC02 improved from of 62 to 50. EEG shows a moderate degree of diffuse nonspecific slow wave abnormalities. There was also an excess of fast activity which could be seen as a result of medication effect. No potentially epileptogenic activity was present during the awake-only recording. Put on capnography Narcan off around midnight Most recent from 2310 reported VBG ph 7.35/pCO2 55/ pO2 44/ HCO3 31 OBJECTIVE I have reviewed the current vital sign data as applicable. Past 24 hours: Intake/Output Summary (Last 24 hours) at 12/29/2023 0623 Last data filed at 12/28/2023 2352 Gross per 24 hour Intake 1390.83 ml Output 500 ml Net 890.83 ml Wt Readings from Last 6 Encounters: 12/27/23 67.8 kg 06/25/23 66.6 kg 03/31/23 69 kg 03/11/23 72.5 kg 02/26/23 70.8 kg 06/25/20 67.4 kg PHYSICAL EXAM BP 129/76 Pulse 87 Temp 37.2 ??C Resp 20 Ht 156 cm Wt 67.8 kg SpO2 97% BMI 27.86 kg/m?? Unmeasured Stool Occurrence: 1 (12/29/23 0400) General: No acute distress, opens eyes to voice. Nonverbal at baseline. HEENT: Lips are chapped. Respiratory: No use of accessory muscles, lungs clear to auscultation bilaterally. Cardiovascular: Regular rate and rhythm. S1, S2 heard without murmurs. Abdomen: Nondistended, soft, nontender to palpation Neurologic: Nonverbal. Opens eyes. Able to lift head off pillow DIAGNOSTICS I have reviewed relevant laboratory, imaging, and other diagnostics as applicable. ASSESSMENT / PLAN Say Hilario is a 43 y.o. male with a past medical history significant for Ayaan-Gastaut syndrome, ALL (age 20 months, s/p chemoradiation), developmental delay (non verbal at baseline), chronic G-tube (placed age 10, converted to GJ tube 2019), lateral medullary stroke (age 12), recurrent s eizures (1-4 seizures daily, on Keppra/Lamictal/Clobazam/felbamate/rufinamide), CHEKO on nocturnal 1 L O2, recent history urosepsis 02/2023 in the setting of UTI with left obstructing ureteral stone s/pureteral stent placement. Mr. Hilario was admitted to the ICU for concern of change in mental status.Overall his clinical picture is reassuring. Mother of patient reports that he is at cognitive baseline, but with decreased energy. EEG showed diffuse nonspecific slow wave abnormalities without evidence of focal epileptic act ivity. Patient received 2 mg dilaudid yesterday for pain control, as the patient had increased BP and heart rate. At home he takes [place] (10 mg hydrocodone/acetaminophen). Patient became difficulty to arouse with decreased respiratory rate. He received 5 doses of Narcan before Narco drip was initiated. There was a subsequent improvement in respiratory status with pC02 improved from of 62 to 50. He is planned for GJ tube exchange and video swallow study today. Plan for Today GJ tube exchange Video swallow study, Epilepsy Consult Ayaan-Gastaut syndrome # Developmental delay (non verbal at baseline) # Recurrent seizures (1-4 seizures daily, on Keppra/Lamictal/Clobazam/felbamate/rufinamide) # History of remote lateral medullary stroke Per mother, patient was multiple seizures daily that are tonic in nature (full- body clenching). Seizures typically not treated unless they are prolonged or generalized tonic-clonic. Family can provide guidance on when to use rescue benzodiazepines as listed below. AMS: Patient at baseline per mother. Pain management: Tylenol 100 mg q8h PRN [place] 10-325 q6h PRN Baclofen 20 mg 4x daily Medications: Rufinamide (200 mg AM, 400 mg PM) Felbamate (1500 mg AM, 1200 mg at 1400, 1200 mg at 2100) Levetiracetam (1500 mg AM, 1600 mg PM) Clobazam (15 mg AM, 10 mg PM) Cannabidiol (400 mg AM and 600 mg qPM) Seizure Rescue: For tonic-clonic seizures lasting longer than 3 minutes, give 20 mg diazepam and additional 200 mg levetiracetam up to three times daily as needed Epilepsy Consult CARDIOVASCULAR: MAP Goal: > 65 Vasoactive meds: None PULMONARY: # Nocturnal hypoxia concerning for obstructive vs central sleep apnea # Possible aspiration pneumonia/CAP Oxygen via NC to keep sats > 90% CXR: Compared to prior, decreased but persistent patchy pulmonary opacities throughout both lungs. CT with bibasilar mixed consolidative and ground-glass opacities. See ID for ABX, concern for aspiration/CAP. Outpatient sleep medicine evaluation RENAL: Net 860 ml yesterday Monitor and replace electrolytes as needed. Avoid nephrotoxic medications. GASTROENTEROLOGY: # Chronic G-tube (placed age 10, converted to GJ tube 2019), replaced in ED # Diarrhea, query overflow with stool burden on CT GJ exchange Video swallow study Diet: currently NPO Tube feeds (home formula Peptamen 1.0) with as tolerated oral intake (mechanical soft) Last Bowel Movement: 12/25. Scheduled bowel regimen with Miralax and senna ENDOCRINE: BG PRN and per BMP INFECTIOUS: # Possible aspiration pneumonia/CAP Cultures: Blood Cultures x 2 (12/25) COVID/Flu Negative Abx: Ceftriaxone (12/25 - 12/29 ) Doxycycline (12/25 - 12/29 ) HEMATOLOGY: # History of ALL (age 20 months, s/p chemoradiation) Anticoagulation/DVT prophylaxis: held for procedure SKIN: # left neck and shoulder erythematous eruption Hydrocortisone 0.5% BID ACCESS: PIV x 2 GJ Tube (repositioned 12/26) DISPO Code Status: FULL Med/surg level of cares. * Imelda Judge M.S., [facility]-REPAIR TECHNICIAN - 12/28/2023 3:30 PM CDT REPAIR TECHNICIAN attempted to initiate clinical swallow evaluation. Mr. Hilario was sleeping soundly during an attempt this morning around 11:45. Upon return this afternoon, he was awake in bed, but had recently required Narcan and nasal trumpet, so swallow evaluation was again held. As previously reported, 's mother has been concerned with some increased coughing when eating and since eating is a source of pleasure for Mr. Hilario she is hopeful to learn more about his swallow function and what might be easiest and most comfortable for him to eat. We are tentatively planning a VFSS tomorrow at15:15 which will hopefully allow enough time for him to be awake after her PEG tube exchange. Please page Imelda Judge M.S., CCC-REPAIR TECHNICIAN with questions or concerns at [phone] Mon-Fri or Speech Pathology Service Pager: Dysphagia [phone] Sat/Sun. * Breanna Alicea RDN, LD - 12/28/2023 8:58 AM CDT Nutrition Care Plan Follow Up Clinical Nutrition continuing to follow patient requiring nutrition support. ASSESSMENT Tube feeds initiated 12/26; advancing towards goal per protocol. REPAIR TECHNICIAN attempted evaluation yesterday but pt was very sleepy; VFSS scheduled for 12/28, tentatively. GI consulted for GJ tube replacement; also tentatively scheduled for 12/28. Current nutrition orders: Formula: Peptamen AF Goal: 45 mL/hr x 24 hours Enteral nutrition as recommended will provide 1296 total calories and 82 grams of protein and less than 100% of the Reference Daily Intake of vitamins and minerals per day. Medications: Scheduled Meds:azelastine, 1 spray, each nostril, Daily baclofen, 20 mg, gastric tube, 4x Daily cannabidioL, 400 mg, gastric tube, QAM cannabidioL, 600 mg, gastric tube, Daily at bedtime cefTRIAXone, 2 g, intravenous, Q24H cloBAZam, 10 mg, gastric tube, Daily at bedtime cloBAZam, 15 mg, gastric tube, QAM doxycycline, 100 mg, intravenous, Q12H doxycycline monohydrate, 100 mg, gastric tube, BID before breakfast and dinner enoxaparin, 40 mg, subcutaneous, Q24H JULIO felbamate, 1,200 mg, gastric tube, BID felbamate, 1,500 mg, gastric tube, Daily before breakfast fluticasone propionate, 2 spray, each nostril, Daily hydrocortisone, 1 Application, topical, BID lamoTRIgine, 300 mg, gastric tube, Daily at bedtime lamoTRIgine, 350 mg, gastric tube, BID levETIRAcetam, 1,500 mg, gastric tube, QAM levETIRAcetam, 1,600 mg, gastric tube, Daily at bedtime loratadine, 10 mg, gastric tube, Daily multivitamin/mineral-adult, 1 tablet, gastric tube, Daily NaCl, 1,000 mL, intravenous, Once nystatin, 1 Application, topical, BID nystatin, 1 Application, topical, TID polyethylene glycol, 17 g, oral, Daily rufinamide, 200 mg, gastric tube, QAM rufinamide, 400 mg, gastric tube, Daily at bedtime sennosides, 8.6 mg, oral, BID sodium chloride, 3 mL, intravenous, Q12H JULIO sodium chloride, 3 mL, intravenous, Q12H JULIO zinc oxide, 1 g, topical, BID Pertinent Labs: Last 3 results Lab Units 12/28/23 0642 12/27/23 0134 12/26/23 2350 12/26/23 1749 SODIUM P mmol/L -- -- -- 131* POC SODIUM mmol/L -- -- 138 -- SODIUM mmol/L 139 139 -- -- POTASSIUM mmol/L 3.8 4.4 -- -- POC POTASSIUM VENOUS mmol/L -- -- 4.5 -- POTASSIUM P mmol/L -- -- -- 4.4 CHLORIDE P mmol/L -- -- -- 92* CHLORIDE mmol/L 105 105 -- -- BUN P mg/dL -- -- -- 8 BUN mg/dL 7* 5* -- -- CREATININE mg/dL 0.37* 0.39* 0.40* -- 0.40* GI Function: no BM charted during admission Estimated Needs: Calories: 6487-4530 calories/day Method to Estimate Energy Needs: kcal/kg (15-20 kcal/kg) Weight Used for Equation Calculations: 67.8 kg Protein: 81 - 102 grams/day Method to Estimate Protein Needs (g/kg): 1.2 - 1.5 gm/kg Weight Used to Calculate Protein Needs (Kg): 67.8 kg PLAN No changes at this time; continue current nutrition orders Monitor for BM; none charted thus far. For questions about patient's nutritional care please contact pager [phone] on weekdays 07:30-16:00 or [phone] on weekends/holidays. * Little Johnson M.D. 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 Interval events: -Improvement in mental status. More awake today -Stable on room air -EEG done this morning. Showed diffuse nonspecific slow wave abnormalities. No evidence of seizures. OBJECTIVE Vitals: 12/28/23 0715 BP: Pulse: 106 Resp: 20 Temp: SpO2: 93% Physical exam General: not in acute distress Heart: Regular Chest: Symmetric, no accessory muscle use Abdomen:nondistended, PEG tube Extremities: 1+ pedal edema bilaterally Skin: Dry, warm Neuro: alert, nonfocal ASSESSMENT / PLAN #1 Altered mental status- improved #2 Pneumonia, community-acquired versus aspiration #3 Dysphagia, on long-term tube feeds via a gastrojejunal tube (placed 2019, previously G-tube); dislodged at initial presentation and repositioned in ER #4 Ayaan-Gastaut syndrome with recurrent seizures #5 Severe cognitive delay #6 Likely obstructive sleep apnea #7 History of ALL, status post treatment with chemoradiation at 20 months #8 History of recurrent aspiration pneumonias #9 History of prior urinary infections secondary to nephrolithiasis, 2022 #10 History of lateral medullary stroke, age 12 #10 Code status: Full code Today, Andrés is more awake and per his mom at bedside, he is back to his baseline. He remains afebrile and hemodynamically stable, on room air. We did an EEG due to concerns that changes in mental status could be secondary to seizures, but that is less likely. Appreciate recommendations from the epilepsy team. Somnolence could have been secondary to medications and possibly a component of hypoactive delirium in the setting of pneumonia. Since he has improved, [facility] Yesterday, his mom was hoping for a discharge home today. However, he has PEG tube exchange and video swallow evaluation scheduled for tomorrow. She agrees to stay tonight, with reevaluation tomorrow to see if he could go home in the next couple of days. Plan: -Continue home antiepileptics. PRN benzos if generalized tonic-clonic seizures. Epilepsy team consulted. -Continue doxy+ceftriaxone for CAP for a 5 day course -Appreciate recommendations from the epilepsy team. -Continue tube feeds. Hold intake until swallow evaluation is done. Hold tube feeds after midnight for PEG exchange tomorrow. -Will need outpatient sleep study. Appreciate sleep medicine recommendations and assistance scheduling when he is ready for discharge. -Transfer to floor. Case discussed with Dr Pili Bhat??nMD Pulmonary/ Critical Care Medicine Associated attestation - Feliciano Alejandre M.D., Ph.D. - 12/28/2023 2:22 PM CDT I saw and evaluated the patient, participating in the small portions of the service. I reviewed the resident/fellow???s note. I agree with the resident/fellow???s findings and plan. The patient remained stable overnight. Since the PEJ tub exchange will occur tomorrow, it would be appropriate to keep the patient in close proximity. * Ralph Neil M.D. - 12/28/2023 6:09 AM CDT [facility] Medicine 3 Progress Note SUBJECTIVE Brief Summary: Say Hilario is a 43 y.o. male admitted on 12/26 for GJ tube dislodgement, fever, diarrhea, and increased somnolence. FLOW COORDINATOR'd to ICU for AMS. PMH significant for [place]-Gastaut syndrome, developmental delay (non verbal at baseline), chronic G-tube (placed age 10, converted to GJ tube 2019), recurrent seizures (1-4 seizures daily, on Keppra/Lamictal/Clobazam/felbamate/rufinamide), CHEKO on nocturnal 1 L O2. Interval Events: Day: +Continued abx for pneumonia concerns +Sleep medicine consult -> Outpatient study +Placed order for GJ exchange (planned for 12/28) +Continued waxing/waning mental status -> VBG normal +Neuro Epilepsy consult pending with EEG on 12/27 OBJECTIVE I have reviewed the current vital sign data as applicable. Past 24 hours: Intake/Output Summary (Last 24 hours) at 12/28/2023 0609 Last data filed at 12/28/2023 0400 Gross per 24 hour Intake 845 ml Output 850 ml Net -5 ml Wt Readings from Last 6 Encounters: 12/27/23 67.8 kg 06/25/23 66.6 kg 03/31/23 69 kg 03/11/23 72.5 kg 02/26/23 70.8 kg 06/25/20 67.4 kg PHYSICAL EXAM BP 114/71 Pulse 98 Temp 37.4 ??C (Axillary) Resp 13 Ht 156 cm Wt 67.8 kg SpO2 93% BMI27.86 kg/m?? General: No acute distress, opens eyes to voice. Nonverbal at baseline. HEENT: Lips are chapped. Respiratory: No use of accessory muscles, lungs clear to auscultation bilaterally. Cardiovascular: Regular rate and rhythm. S1, S2 heard without murmurs. Abdomen: Nondistended, soft, nontender to palpation Neurologic: Nonverbal. Opens eyes. Able to lift head off pillow DIAGNOSTICS I have reviewed relevant laboratory, imaging, and other diagnostics as applicable. ASSESSMENT / PLAN Say Hilario is a 43 y.o. male with a past medical history significant for Ayaan-Gastaut syndrome, ALL (age 20 months, s/p chemoradiation), developmental delay (non verbal at baseline), chronic G-tube (placed age 10, converted to GJ tube 2019), lateral medullary stroke (age 12), recurrent s eizures (1-4 seizures daily, on Keppra/Lamictal/Clobazam/felbamate/rufinamide), CHEKO on nocturnal 1 L O2, recent history urosepsis 02/2023 in the setting of UTI with left obstructing ureteral stone s/pureteral stent placement. Mr. Hilario was admitted to the ICU for concern of change in mental status. Overall his clinical picture is reassuring. His lactate normalized, and his VBG is also within normal limits. On consultation with the neuro ICU, and out of abundance of precaution we will do an EEG. Additionally, we will plan for GJ tube exchange and video swallow study tomorrow. Plan for Today epilepsy consult, EEG GJ tube exchange ordered for tomorrow Video swallow study, likely tomorrow Hold tube feeds, DVT prophylaxis at midnight in preparation for procedure Continue CAP coverage with ceftriaxone and doxycyline Scheduled bowel regimen with Miralax and senna Tylenol prn for pain [place]-Gast[place] syndrome # Developmental delay (non verbal at baseline) # Recurrent seizures (1-4 seizures daily, on Keppra/Lamictal/Clobazam/felbamate/rufinamide) # History of remote lateral medullary stroke Per mother, patient was multiple seizures daily that are tonic in nature (full- body clenching). Seizures typically not treated unless they are prolonged or generalized tonic-clonic. Family can provide guidance on when to use rescue benzodiazepines as listed below. AMS: Patient at baseline per mother. Pain management: Tylenol 100 mg q8h PRN [place] 10-325 q6h PRN Baclofen 20 mg 4x daily Medications: Rufinamide (200 mg AM, 400 mg PM) Felbamate (1500 mg AM, 1200 mg at 1400, 1200 mg at 2100) Levetiracetam (1500 mg AM, 1600 mg PM) Clobazam (15 mg AM, 10 mg PM) Cannabidiol (400 mg AM and 600 mg qPM) Seizure Rescue: For tonic-clonic seizures lasting longer than 3 minutes, give 20 mg diazepam and additional 200 mg levetiracetam up to three times daily as needed Epilepsy Consult, EEG CARDIOVASCULAR: MAP Goal: > 65 BP at home 90/50s Vasoactive meds: None PULMONARY: # Nocturnal hypoxia concerning for obstructive vs central sleep apnea # Possible aspiration pneumonia/CAP Oxygen via NC to keep sats > 90% CXR: Compared to prior, decreased but persistent patchy pulmonary opacities throughout both lungs. CT with bibasilar mixed consolidative and ground-glass opacities. See ID for ABX, concern for aspiration/CAP. Outpatient sleep medicine evaluation RENAL: 850 ml urine, net -5 ml 04/27 Monitor and replace electrolytes as needed. Avoid nephrotoxic medications. GASTROENTEROLOGY: # Chronic G-tube (placed age 10, converted to GJ tube 2019), replaced in ED # Diarrhea, query overflow with stool burden on CT Diet: Tube feeds (home formula Peptamen 1.0) with as tolerated oral intake (mechanical soft) GJ exchange Last Bowel Movement: 12/25. Scheduled bowel regimen with Miralax and senna Video swallow study, likely tomorrow ENDOCRINE: BG PRN and per BMP INFECTIOUS: # Possible aspiration pneumonia/CAP Cultures: Blood Cultures x 2 (12/25) COVID/Flu Negative Abx: Ceftriaxone (12/25 - 12/29 ) Doxycycline (12/25 - 12/29 ) HEMATOLOGY: # History of ALL (age 20 months, s/p chemoradiation) Anticoagulation/DVT prophylaxis: held for procedure SKIN: # left neck and shoulder erythematous eruption Hydrocortisone 0.5% BID ACCESS: PIV x 2 GJ Tube (repositioned 12/26) DISPO Code Status: FULL Med/surg level of cares. * Feliciano Alejandre M.D., Ph.D. - 12/27/2023 2:02 PM CDT SUBJECTIVE Patient is in of [address], room [address] HISTORY OF PRESENT ILLNESS Say Hilario is a 43 y.o. male who presents with altered mental status following PEJ tube repositioning in the setting of Ayaan Gastaut syndrome. The patient was seen and examined. The plan of care was discussed with the ICU team (critical care med 3) and the mother present at the bedside. Overnight: No event. The patient returned to baseline according to the mother. OBJECTIVE I have reviewed the current vital sign data as applicable. PHYSICAL EXAMINATION Vitals reviewed. Cardiovascular Rate and Rhythm: Normal rate. Pulmonary Effort: Pulmonary effort is normal. Skin Coloration: Skin is pale. Neurological Mental Status: He is alert. DIAGNOSTICS I have reviewed relevant laboratory, imaging, and other diagnostics as applicable. pH 7.35 pCO2 49 (VBG). Hemoglobin 11.3, creatinine 0.39. 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 GI consult for replacement of the PEG tube. 2. Sleep consult for sleep study to be scheduled. 3. Swallow study. 4. Transfer to the floor for further management BILLING: Margin Code: SH3 * Imelda Judge M.S., CCC-REPAIR TECHNICIAN - 12/27/2023 11:26 AM CDT REPAIR TECHNICIAN received orders to evaluate Mr. Hilario's swallow function. He was very sleepy at the time of this attempt after a very eventful night. Spoke with Mr. Hilario's parents who provided swallowing history information including recent increase in coughing during/after meals. Eating is a source of pleasure for him and his parents are interested in swallow evaluation to determine what foods and/or liquids would be easiest and most comfortable for him to swallow. He last had a VFSS in 2019, so a repeat study would be reasonable. Radiology slots are booked until 12/28, but we can tentatively plan on VFSS that date. Should he discharge before a VFSS can be completed, recommend outpatient follow up. I will return later today or tomorrow to complete a clinical swallow evaluation. Please page Imelda Judge M.S., CCC-REPAIR TECHNICIAN with questions or concerns at [phone] Mon-Fri or Speech Pathology Service Pager: Dysphagia [phone] Sat/Sun. * Rosanna Joiner Pharm.D., R.Ph. - 12/27/2023 11:10 AM CDT Images from the original note were not included. Admission Medication History Note Adherence issues: No concerns Medication list source: Family member Medication related information: Reviewed with Mom - Increased cannabidiol dose to match home of 400mg qAM, 600mg qPM - PRN lorazepam is for agitation mostly - Has not needed PRN rescue diazepam in a while. Sometimes uses extra 200mg of keppra Prior to Admission Medications Med List Status: Pharmacy/RN Complete Set By: Rosanna Joiner, PharmMayDMay, R.Ph. at 12/27/2023 10:17 AM Taking? Last Dose Informant Start Date End Date LT acetaminophen (TYLENOL) 325 mg tablet 12/26/2023 -- -- -- 1,000 mg by g-tube route every 6 (six) hours as needed. acetic acid 0.25 % irrigation (sterile) Unknown -- 03/13/23 -- Irrigate with as directed 2 (two) times a day. For groin to perirectal/perineal area. albuterol (ACCUNEB) 2.5 mg /3 mL nebulizer solution () -- -- 09/21/19 02/23/23 Inhale 2.5 mg every 6 (six) hours as needed for wheezing. azelastine (ASTEPRO) 205.5 mcg/spray (0.15 %) nasal spray 12/26/2023 -- 02/26/23 -- Administer 1 spray into each nostril daily. bacitracin 500 unit/gram ointment 12/24/2023 -- -- -- Apply 1 Application topically as needed (redness, inflammation on skin). baclofen (LIORESAL) 20 mg tablet 12/26/2023 at 2100 -- 01/27/21 -- TAKE 1 TABLET (20MG) PER G-TUBE FOUR TIMES A DAY. DO NOT EXCEED 80MG PER DAY. benzoyl peroxide (BREVOXYL) 4 % external liquid Unknown -- -- -- Apply 1 Application topically. bisacodyL (DULCOLAX) 10 mg suppository Unknown -- 12/22/22 -- Insert 10 mg into the rectum daily as needed for constipation (if no results from AM miralax). cannabidioL (EPIDIOLEX) 100 mg/mL solution 12/26/2023 at 2100 -- -- -- Administer 400-600 mg via gastric tube 2 (two) times a day. 400 mg AM, 600 mg PM clindamycin (CLEOCIN T) 1 % external solution 12/26/2023 -- 08/11/21 -- Apply 1 Application topically. cloBAZam (ONFI) 10 mg tablet 12/25/2023 -- 05/06/20 -- 15 mg by g-tube route every morning. cloBAZam (ONFI) 10 mg tablet 12/26/2023 at 2100 -- -- -- Take 10 mg by mouth at bedtime. clotrimazole (FUNGI CURE) 1 % external solution 12/26/2023 -- 02/26/23 -- Apply 1 Application topically daily as needed (rash on head). clotrimazole-betamethasone (LOTRISONE) 1-0.05 % cream 12/26/2023 -- -- -- Apply 1 Application topically 2 (two) times a day as needed (rash or concerns for yeast infection).Apply to affected areas. DIASTAT ACUDIAL 12.5-15-17.5-20 mg rectal kit More than a month -- 11/26/17 -- Insert 20 mg into the rectum as needed for seizures (if having more than 10 generalized tonic-clonic seizures per hour or if seizure lasts more than 3 minutes, may repeat once. if seizures continue, call 911). diazePAM (VALIUM) 10 mg tablet () -- -- 06/30/20 07/30/20 1 tablet (10 mg total) by g-tube route 3 (three) times a day as needed (seizures). Notes: Jj--[place] yizqfuktupvuemm-insnvkslo-qhzddbz (MAGIC MOUTHWASH) 1:1:1 More than a month -- -- -- Swish and spit 15 mL every 4 (four) hours as needed. felbamate (FELBATOL) 600 mg/5 mL suspension 12/25/2023 -- -- -- Take 1,500 mg by mouth every morning before breakfast. felbamate (FELBATOL) 600 mg/5 mL suspension 12/26/2023 at 2100 -- -- -- Take 1,200 mg by mouth 2 (two) times a day. At 1400 and 2100 gabapentin (NEURONTIN) 300 mg capsule Past Week -- 07/28/21 -- Take 300 mg by mouth 3 (three) times a day as needed (pain). haloperidol (HALDOL) 2 mg/mL concentrated solution Unknown -- 07/18/20 -- Take 1 mg by mouth 4 (four) times a day as needed for agitation. HYDROcodone-acetaminophen (NORCO) 10-325 mg per tablet Past Week -- 03/29/23 -- Take 1 tablet by mouth every 6 (six) hours as needed. hydrocortisone (HYTONE) 2.5 % cream Unknown -- 02/26/23 -- Apply 1 Application topically daily as needed (itching). ibuprofen (ADVIL,MOTRIN) 600 mg tablet More than a month -- -- -- 600 mg by g-tube route every 8 (eight) hours as needed for pain. ipratropium-albuteroL (DUONEB) 0.5-2.5 mg/3 mL nebulizer solution More than a month -- 06/26/22 -- Inhale 3 mL by nebulization 4 (four) times a day as needed for shortness of breath. ketoconazole (NIZORAL) 2 % cream More than a month -- 07/08/21 -- Apply 1 Application topically 2 (two) times a day as needed for irritation or rash. LaMICtaL 100 mg tablet 12/26/2023 at 2099 Self 01/27/21 -- Take 100 mg by mouth 3 (three) times a day. 350 mg morning, 350 mg at 2pm, 300 mg at bedtime. (has both 100 mg & 200 mg for the total of 350mg and 300 mg doses) LaMICtal 200 mg tablet 12/26/2023 at 2099 -- 03/10/23 -- TAKE 1 TABLET VIA GTUBE THREE TIMES DAILY levETIRAcetam (KEPPRA) 100 mg/mL solution 12/26/2023 at 2099 -- -- -- Administer 1,600 mg via gastric tube at bedtime. levETIRAcetam (KEPPRA) 100 mg/mL solution 12/26/2023 -- -- -- Administer 1,500 mg via gastric tube every morning. levETIRAcetam (KEPPRA) 100 mg/mL solution More than a month at 2099 -- -- -- Administer 200 mg via gastric tube 3 (three) times a day as needed (seizures). levocetirizine (XYZAL) 5 mg tablet 12/26/2023 at 0800 -- -- -- 5 mg by gastric tube route every evening. loperamide (IMODIUM A-D) 1 mg/7.5 mL liquid Past Week -- 11/27/22 -- Take 15 mL by mouth daily as needed. LORazepam (ATIVAN) 2 mg tablet More than a month -- -- -- Administer 2 mg via gastric tube daily as needed (seizures, agitation). magnesium hydroxide (MILK OF MAGNESIA) 400 mg/5 mL suspension More than a month -- 10/09/22 -- Administer 30 mL via gastric tube daily as needed (if needed for constipation If no results from Miralax, Dulcolax Sup, Fleet, and Mineral Oil enemas.). mineral oil enema More than a month -- 10/09/22 -- Insert 1 enema into the rectum daily as needed. mometasone (NASONEX) 50 mcg/actuation nasal spray 12/26/2023 at 0800 -- 12/29/17 -- Administer 2 sprays into each nostril daily. multivitamin with minerals liquid 12/26/2023 at 0800 -- 06/26/22 -- 10 mL by g-tube route. nystatin (MYCOSTATIN) 100,000 unit/gram cream -- -- 03/13/23 -- Apply 1 Application topically 2 (two) times a day. Apply to groin irritation. nystatin (NYSTOP) 100,000 unit/gram powder 12/26/2023 -- 03/13/23 -- Apply 1 Application topically 3 (three) times a day. Apply to groin irritation. nystatin-triamcinolone (MYCOLOG II) 100,000 Unit/g-0.1 % cream More than a month -- -- -- Apply 1 Application topically 2 (two) times a day as needed (fungal infection). Apply to affected areas. olopatadine (PATADAY) 0.2 % ophthalmic solution Past Week -- -- -- Administer 1 drop into both eyes 4 (four) times a day as needed for allergies (redness). polyethylene glycol (MIRALAX) 17 gram/dose oral powder Past Week -- 04/05/23 -- Administer 17 g via gastric tube daily as needed for constipation. pseudoephedrine (Sudafed) 30 mg tablet More than a month -- 01/27/22 -- Take 30 mg by mouth every 6 (six) hours as needed for congestion. rufinamide (BANZEL) 200 mg tablet 12/26/2023 at 0800 -- -- -- Administer 200 mg via gastric tube every morning. rufinamide (BANZEL) 400 mg tablet 12/26/2023 at 2100 -- -- -- 400 mg by g-tube route at bedtime. silver nitrate (ARZOL) 75-25 % topical stick More than a month -- -- -- Apply 1 Application topically as needed (redness). Apply 1-2x/week as needed for redness topically around GT stoma until redness is gone or no longer needed. silver nitrate (ARZOL) 75-25 % topical stick More than a month -- 06/25/23 06/24/24 Apply 1 Application topically as needed (for treatment of granulation tissue). Use every 3-4 days as needed as educated by HEN nurse silver sulfADIAZINE (SILVADENE, SSD) 1 % cream More than a month -- -- -- Apply 1 Application topically daily as needed for wound care. Apply to skin break down in groin. simethicone (MYLICON,GAS-X) 125 mg capsule More than a month -- -- -- Take 125 mg by mouth every 6 (six) hours as needed for flatulence (bloating). torsemide (DEMADEX) 10 mg tablet Past Month -- -- -- Administer 10 mg via gastric tube daily as needed (edema). zaleplon (SONATA) 5 mg capsule Unknown -- 07/08/23 -- Take 1 capsule (5 mg total) by mouth See Admin Instructions. Take as needed, if unable to sleep during sleep study. May repeat if needed. Allow a minimum of 4 hours prior to driving after last dose. If drowsy after sleep study do not drive until adequately alert. zinc oxide (DESITIN) 13 % cream 12/26/2023 at 0830 -- 03/13/23 -- Apply 1 Application topically as needed (skin cares). Apply to irritated perineal/jennifer-rectal skin. zinc oxide 40 % ointment 12/25/2023 -- -- -- Apply 1 g topically 2 (two) times a day. Apply to GT site for skin protectant. * Rosanna Joiner Pharm.D., R.Ph. - 12/27/2023 8:49 AM CDT Pharmacist Progress Note Reason for admission: 43 y.o. male admitted 12/26/2023.GJ tube dislodgement, fever, diarrhea. FLOW COORDINATOR for somnolence PMH: [place]-Gastaut syndrome, ALL (age 20 months, s/p chemoradiation), developmental delay (non verbal at baseline), chronic G-tube (placed age 10, converted to GJ tube 2019), lateral medullary stroke (age 12), recurrent seizures (1-4 seizures daily), CHEKO on nocturnal 1 L O2, urosepsis 02/2023 in the setting of UTI with left obstructing ureteral stone s/p ureteral stent placement. 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 Seizures typically not treated unless they are prolonged or generalized tonic-clonic. Family will provide guidance on when to use rescue benzodiazepines vs extra 200mg of keppra. PRN lorazepam more for agitation. Resp: NC 2L CV: HD stable Neph: Scr 0.4 is baseline but note he is bedbound so likely overestimates ID: Afeb, mild WBC. CAP coverage with VALVE GRINDER and doxy. Noted PCN allergy but appears have tolerated cefepime in past. Willmonitor GI: TF, chronic GJ tube due for exchange 12/28, diarrhea Endo: goal glucose of less than 180 and not hypoglycemic Weight Based Dosing: Admission Weight: 67.8 kg, last measured Weight: 67.8 kg (12/27/2023 9:01 AM) Height: 156 cm (12/27/2023 9:09 AM) , and BMI 27.86 kg/m?? . Medications reviewed Proph: [facility]ox Joanne Joiner Pharm.D., R.Ph. * Pedro Pablo Kline M.D. - 12/27/2023 7:00 AM CDT CCM 3 Progress Note SUBJECTIVE Brief Summary: Say Hilario is a 43 y.o. male admitted on 12/26 for GJ tube dislodgement, fever, diarrhea, and increased somnolence. FLOW COORDINATOR'd to ICU for AMS. PMH significant for Ayaan-Gastaut syndrome, developmental delay (non verbal at baseline), chronic G-tube (placed age 10, converted to GJ tube 2019), recurrent seizures (1-4 seizures daily, on Keppra/Lamictal/Clobazam/felbamate/rufinamide), CHEKO on nocturnal 1 L O2. Edited by: Pedro Pablo Kline M.D. at 12/27/2023 0702 Interval Events: FLOW COORDINATOR'd due to Somnolence, appeared to be at neurologic baseline upon admission to the MICU OBJECTIVE Blood Pressure: 116/76 (12/27/2023 11:00 AM) Temperature: 37.5 ??C (12/27/2023 11:00 AM) Temp Source: Axillary (12/27/2023 11:00 AM) Heart Rate: 97 (12/27/2023 11:00 AM) Heart Rate Source: ECG (12/27/2023 8:00 AM) Pulse Rate: 96 (12/27/2023 11:00 AM) Pulse Rate Source: Pulse oximetry (12/27/2023 8:00 AM) Resp Rate: 16 (12/27/2023 11:00 AM) BMI (Calculated): 27.9 kg/m?? (12/27/2023 9:01 AM) SpO2: 94 % (12/27/2023 11:00 AM) Height: 156 cm (12/27/2023 9:09 AM) Weight: 67.8 kg (12/27/2023 9:01 AM) I/Os I/O 04/13 0000 04/13 12/25 Enteric (NG/OG) Tube 75 Intermittent Medications 100 Total Intake(mL/kg) 175 (2.6) Urine (mL/kg/hr) 460 500 (0.6) Other 1 Total Output 461 500 Net -461 -325 Unmeasured Urine Occurrence 2 x I have reviewed the current vital sign data as applicable. PHYSICAL EXAM General: Patient is no apparent distress., well-groomed, and laying in bed.. CV: Regular rate and rhythm with normal S1 and S2. No murmurs, rubs, or gallops. No peripheral edema. Lungs: Clear to anterior auscultation bilaterally. Abdomen: Soft, non-tender, and non-distended. GJ tube in place. Skin/MSK: Erythematous plaques over left neck and shoulder. No scaling. Non pruritic. Neuro: Non-verbal but responsive to stimuli. DIAGNOSTICS Recent Labs 12/27/2313312/26/23234912/26/23 1749 NA 139 138 131 L KSERUM 4.4 -- -- CL 105 -- 92 L BICARB 24 28 28 BUN 5 L -- 8 CREATININE 0.39 L 0.40 L -- 0.40 L GLUCOSE 90 -- 103 Recent Labs 12/27/2313312/26/23 1749 HGB 11.3 L 12.2 L PLT 170 170 WBC 10.3 H 9.4 Recent Labs 12/27/2313312/26/23 1749 AST 53 H 68 H ALT 32 37 ALKPHOS 117 131 H BILITOT 0.4 1.2 ALBUMIN 4.0 4.3 LIPASE -- 8 L I have reviewed relevant laboratory, imaging, and other diagnostics as applicable. ASSESSMENT / PLAN Say Hilario is a 43 y.o. male admitted on 12/26 for GJ tube dislodgement, fever, diarrhea, and increased somnolence with concern for aspiration pneumonia. FLOW COORDINATOR'd to ICU for AMS. Summary 12/26: Mr. Hilario was doing well this morning and is at his baseline mental status. There are concerns for aspiration related pneumonitis or pneumonia, so he is on empiric antibiotics and we will obtain a formal swallow evaluation. Furthermore, he was scheduled for a routine GJ tube exchange on 12/28, but we will see if this can be done earlier with patient preference for a FARIHA-SMALL tube. Overall his clinical picture is reassuring. His lactate has normalized, and his VBG is also within normal limits. We will continue antibiotics and transfer to the floor today. PLAN BY SYSTEMS: NEUROLOGICAL: # Ayaan-Gastaut syndrome # Developmental delay (non verbal at baseline) # Recurrent seizures (1-4 seizures daily, on Keppra/Lamictal/Clobazam/felbamate/rufinamide) # History of remote lateral medullary stroke Per mother, patient was multiple seizures daily that are tonic in nature (full- body clenching). Seizures typically not treated unless they are prolonged or generalized tonic-clonic. Family can provide guidance on when to use rescue benzodiazepines as listed below. AMS: Patient at baseline per mother. Pain management: Tylenol 650 mg q6h PRN [place] 10-325 q6h PRN Baclofen 20 mg 4x daily Medications: Rufinamide (200 mg AM, 400 mg PM) Felbamate (1500 mg AM, 1200 mg at 1400, 1200 mg at 2100) Levetiracetam (1500 mg AM, 1600 mg PM) Clobazam (15 mg AM, 10 mg PM) Cannabidiol (400 mg AM and 600 mg qPM) Seizure Rescue: For tonic-clonic seizures lasting longer than 3 minutes, give 20 mg diazepam and additional 200 mg levetiracetam up to three times daily as needed CARDIOVASCULAR: MAP Goal: > 65 BP at home 90/50s Vasoactive meds: None PULMONARY: # Nocturnal hypoxia concerning for obstructive vs central sleep apnea # Possible aspiration pneumonia/CAP Oxygen via NC to keep sats > 90% CXR: Compared to prior, decreased but persistent patchy pulmonary opacities throughout both lungs. CT with bibasilar mixed consolidative and ground-glass opacities. See ID for ABX, concern for aspiration/CAP. REPAIR TECHNICIAN consult for concern of aspiration. Sleep medicine consult RENAL: Monitor and replace electrolytes as needed. Avoid nephrotoxic medications. GASTROENTEROLOGY: # Chronic G-tube (placed age 10, converted to GJ tube 2019), replaced in ED # Diarrhea, query overflow with stool burden on CT Diet: Tube feeds (home formula Peptamen 1.0) with as tolerated oral intake (mechanical soft) Due for GJ tube exchange on 12/28, discussed with GI. Recommended placing inpatient order and project scheduler will look at availability. Last Bowel Movement: 12/25. Continue to monitor stool output for consideration of infectious diarrhea vs other etiology. ENDOCRINE: BG PRN and per BMP INFECTIOUS: # Possible aspiration pneumonia/CAP Cultures: Blood Cultures x 2 (12/25) COVID/Flu Negative Abx: Ceftriaxone (12/25 - 12/29 ) Doxycycline (12/25 - 12/29 ) HEMATOLOGY: # History of ALL (age 20 months, s/p chemoradiation) Anticoagulation/DVT prophylaxis: Lovenox 40 mg daily SKIN: # left neck and shoulder erythematous eruption Hydrocortisone 0.5% BID ACCESS: PIV x 2 GJ Tube (repositioned 12/26) DISPO Code Status: FULL Med/surg level of cares. Family updated on 12/26 Pedro Pablo Kline M.D. PGY-2 CCM 3 * Little Johnson M.D. 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 Interval events: -Mentation was improved and back to baseline in the morning. However in the afternoon, he falls asleep quickly and opens his eyes briefly to tactile stimulation intermittently OBJECTIVE Blood Pressure: 116/76 (12/27/2023 11:00 AM) Temperature: 37.5 ??C (12/27/2023 11:00 AM) Temp Source: Axillary (12/27/2023 11:00 AM) Heart Rate: 97 (12/27/2023 11:00 AM) Heart Rate Source: ECG (12/27/2023 8:00 AM) Pulse Rate: 96 (12/27/2023 11:00 AM) Pulse Rate Source: Pulse oximetry (12/27/2023 8:00 AM) Resp Rate: 16 (12/27/2023 11:00 AM) BMI (Calculated): 27.9 kg/m?? (12/27/2023 9:01 AM) SpO2: 94 % (12/27/2023 11:00 AM) Height: 156 cm (12/27/2023 9:09 AM) Weight: 67.8 kg (12/27/2023 9:01 AM) Physical exam General: not in acute distress Heart: Regular Chest: Symmetric, no accessory muscle use Abdomen:nondistended, PEG tube Extremities: 1+ pedal edema bilaterally Skin: Dry, warm Neuro: intermittently somnolent, but arouses with tactile stimuli. Nonfocal. ASSESSMENT / PLAN #1 Altered mental status #2 Pneumonia, community-acquired versus aspiration #3 Dysphagia, on long-term tube feeds via a gastrojejunal tube (placed 2019, previously G-tube); dislodged at initial presentation and repositioned in ER #4 Ayaan-Gastaut syndrome with recurrent seizures #5 Severe cognitive delay #6 Likely obstructive sleep apnea #7 History of ALL, status post treatment with chemoradiation at 20 months #8 History of recurrent aspiration pneumonias #9 History of prior urinary infections secondary to nephrolithiasis, 2022 #10 History of lateral medullary stroke, age 12 #10 Code status: Full code Mr. Hilario is still intermittently sleepy, which could be secondary to hypoactive delirium vs medications. Initially it was all attributed to fentanyl given for enteral tube replacement in the ED, but he had another even this afternoon. He had a similar presentation during a prior admission for pneumonia last year, which was attributed to delirium. Less likely increasing subclinical seizures or post ictal period. Lactic acidosis improved after fluid resuscitation. Plan: -Continue home antiepileptics. PRN benzos if generalized tonic-clonic seizures. Epilepsy team consulted. -Neurology consultation. Spot EEG -Trend lactate. Continue doxy+ceftriaxone for CAP -Continue tube feeds. Stop oral intake until swallow evaluation once more awake -We will discuss with GI about replacing his PEG tube as inpatient (currently scheduled for 12/28 asoutpatient). -Will need likely outpatient sleep study Case discussed with Dr Pili Bhat??MD perez Pulmonary/ Critical Care Medicine * YashiraZeferino R.R.T., TezR.T. - 12/27/2023 12:43 AM CDT Patient is a 43 y.o. male admitted on 12/26/2023 2331- RT responded to FLOW COORDINATOR call for somnolence. Patient on a 2L nasal cannula. Patient noted to be breathing shallow, obstructing, and would have periods of apneas. Mother was at bedside and reported that patient wears 1L O2 at night at baseline. Also of note mother reports trying to get patient in for a sleep study but it has not yet been scheduled. She reports that he snores at baseline and at time of the FLOW COORDINATOR the snoring and breathing pattern were at patients baseline per mother. VBG was obtained, 7.30, 58, 32, 28. Patient transferred to the MICU room 526. Report given to covering RT. Principal Problem Pneumonia Oxygen Therapy $Delivery Method: Nasal cannula Electronically signed by: Zeferino Ac R.R.T., L.R.T. 12/27/23 12:47 AM CDT documented in this encounter H&P Notes * Adia Samuel M.D. - 12/27/2023 1:10 AM CDT MICU 3 ADMISSION NOTE CHIEF COMPLAINT Altered mental status HISTORY OF PRESENT ILLNESS Say Hilario is a 43 y.o. male with a past medical history significant for [place]-Gastaut syndrome, ALL (age 20 months, s/p chemoradiation), developmental delay (non verbal at baseline), chronic G-tube (placed age 10, converted to GJ tube 2019), lateral medullary stroke (age 12), recurrent s eizures (1-4 seizures daily, on Keppra/Lamictal/Clobazam/felbamate/rufinamide), CHEKO on nocturnal 1 L O2, urosepsis 02/2023 in the setting of UTI with left obstructing ureteral stone s/p ureteral stentplacement. History provided from the patient's mother as the patient is nonverbal at baseline. On the evening of 12/25/2023, the patient was screaming and appeared to be in pain, and his mom was unable to discern exactly where this pain was. She felt it got better with the administration of hydrocodone. He was able to take his morning meds on 12/26/2023, but unfortunately he pulled his GJ tube out andhe missed his afternoon medications (gabapentin, baclofen, Lamictal). At baseline, mom states that he has multiple seizures per day. She states he is multiple tonic episodes where his muscles tighten. These are brief and resolve spontaneously without notable postictal period. They do not do a rescue medications unless he has a full-body generalized tonic-clonic seizure or has multiple episodes in a row. In addition, he has had diarrhea over the past 3-4 days that she describes as liquidy. Recently tried Imodium which has helped. He had an episode of vomiting on the morning of 12/26/2023 where he vomited some pudding. She notes he has been coughing while eating. He does have tube feeds that run overnight, but additionally eat soft foods as well. She noted an increase in his baseline temperature to 100?? F, typically is 95-96. She notes he has had a rash over his left shoulder for the past week and a half. They have tried mupirocin and Cetaphil without improvement. She states his baseline blood pressures are 90s/50s. Due to multiple medical concerns including the dislodgement of his GJ tube, they presented to the emergency department. ED Course: [facility] Vitals: Afebrile, HR 90-100s, BP 90-110s/60-90s, on 2L NC Labs: Hemoglobin 12.2 (baseline 10-12), platelets 170, WBC 9.4 with left shift, INR 1.2, sodium 131, potassium 4.4, creatinine 0.40, total bilirubin 1.2, direct bilirubin 0.7, AST 68, ALT 37, alk phos 131 (has intermittently been elevated in the past), lactate 2.6 -> 2.3 -> 2.7, UA unremarkable, blood cultures drawn, COVID, flu negative Imaging/EKG: CXR: Persistent patchy pulmonary opacities throughout both lungs CT A/P: G-tube terminates in the proximal jejunum, no acute intra-abdominal findings, bibasilar mixed consolidative and ground-glass opacities concerning for new infection/inflammation Interventions: Ceftriaxone, doxycycline, 75 mcg fentanyl, 2 L IV fluids In the emergency department, able to replace G J-tube. FLOW COORDINATOR was called for increased somnolence. On arrival, the patient appeared somnolent and not responding to verbal stimuli. Would briefly awakened with painful stimuli. Per mom, she felt he maybe sleepier than his baseline. No documented seizures. VBG was obtained which demonstrated 7.30/58/32. Lactate 1.12. Given the change in the patient's mental status he was transferred to the MICU for further evaluation and management. Upon arrival to the ICU, the patient is afebrile and hemodynamically stable. He was able to awaken,open his eyes, and lift his head. Per mom he is close to his neurologic baseline and seems more awake than he did when he was on the floor. CURRENT MEDICATIONS Medications Scheduled Medication Ordered Dose/Rate, Route, Frequency Last Action azelastine 137 mcg/spray (0.1 %) nasal spray 1 spray (ASTELIN) 1 spray, each nostril, Daily Ordered baclofen tablet 20 mg (LioresaL) 20 mg, gastric tube, 4x Daily Ordered cannabidioL solution 165 mg (EPIDIOLEX) 2.5 mg/kg, sm bowel tu, BID Ordered cloBAZam tablet 10 mg (ONFI) 10 mg, oral, Daily at bedtime Ordered cloBAZam tablet 15 mg (ONFI) 15 mg, gastric tube, QAM Ordered enoxaparin injection 40 mg (LOVENOX) 40 mg, SC, Q24H JULIO Ordered EPINEPHrine 0.3 mg/0.3 mL injection 0.3 mg 0.3 mg, IM, Once Ordered felbamate suspension 1,200 mg (FELBATOL) 1,200 mg, oral, BID Ordered felbamate suspension 1,500 mg (FELBATOL) 1,500 mg, oral, Daily before breakfast Ordered fluticasone propionate 50 mcg/actuation nasal spray 2 spray (FLONASE) 2 spray, each nostril, Daily Ordered lamoTRIgine tablet 100 mg (LaMICtaL) 100 mg, oral, TID Ordered lamoTRIgine tablet 200 mg (LaMICtaL) 200 mg, gastric tube, TID Ordered levETIRAcetam solution 1,500 mg (KEPPRA) 1,500 mg, gastric tube, QAM Ordered levETIRAcetam solution 1,600 mg (KEPPRA) 1,600 mg, gastric tube, Daily at bedtime Ordered loratadine tablet 10 mg (CLARITIN) 10 mg, oral, Daily Ordered zulwkpymixmj-amck-XK-Ca-minerals 400 mcg (folic acid) tablet 1 tablet (THERAPEUTIC-M) 1 tablet, gastric tube, Daily Ordered NaCl 0.9 % bolus 1,000 mL 1,000 mL, IV, Once Ordered nystatin 100,000 unit/gram cream 1 Application (MYCOSTATIN) 1 Application, top, BID Ordered nystatin 100,000 unit/gram powder 1 Application (NYSTOP) 1 Application, top, TID Ordered rufinamide tablet 200 mg (BANZEL) 200 mg, gastric tube, QAM Ordered rufinamide tablet 400 mg (BANZEL) 400 mg, gastric tube, Daily at bedtime Ordered sodium chloride 0.9 % injection 3 mL 3 mL, IV, Q12H JULIO Ordered sodium chloride 0.9 % injection 3 mL 3 mL, IV, Q12H JULIO Ordered zinc oxide 20 % ointment 1 g 1 g, top, BID Ordered PRN Medication Ordered Dose/Rate, Route, Frequency Last Action acetaminophen tablet 1,000 mg (TYLENOL) 1,000 mg, gastric tube, Q6H PRN Ordered bacitracin 500 unit/gram ointment packet 1 packet 1 Application, top, PRN Ordered clotrimazole 1 % external solution 1 Application (FUNGI CURE) 1 Application, top, Daily PRN Ordered clotrimazole-betamethasone 1-0.05 % cream 1 Application (LOTRISONE) 1 Application, top, BID PRN Ordered diazePAM rectal kit 20 mg (DIASTAT ACUDIAL) 20 mg, rectal, PRN Ordered HYDROcodone-acetaminophen 10-325 mg per tablet 1 tablet (NORCO) 1 tablet, oral, Q6H PRN Ordered ketotifen 0.025 % (0.035 %) ophthalmic solution 1 drop (ZADITOR) 1 drop, both eyes, 4x Daily PRN Ordered levETIRAcetam solution 200 mg (KEPPRA) 200 mg, gastric tube, TID PRN Ordered loperamide liquid 2 mg (IMODIUM A-D) 2 mg, oral, Daily PRN Ordered LORazepam injection 2 mg (ATIVAN) 2 mg, IV, Q1H PRN Ordered ondansetron (PF) injection 4 mg (ZOFRAN) (Or Linked Group #1) 4 mg, IV, Once PRN Ordered ondansetron ODT disintegrating tablet 4 mg (ZOFRAN-ODT) (Or Linked Group #1) 4 mg, oral, Once PRN Ordered prochlorperazine injection 5 mg (COMPAZINE) 5 mg, IV, Q6H PRN Ordered simethicone chewable tablet 125 mg (MYLICON) 125 mg, oral, Q6H PRN Ordered sodium chloride 0.9 % injection 10 mL 10 mL, IV, PRN Ordered sodium chloride 0.9 % injection 10 mL 10 mL, IV, PRN Ordered sodium chloride 0.9 % injection 3 mL 3 mL, IV, PRN Ordered sodium chloride 0.9 % injection 3 mL 3 mL, IV, PRN Ordered torsemide tablet 10 mg (DEMADEX) 10 mg, gastric tube, Daily PRN Ordered zinc oxide 13 % cream 1 Application (DESITIN) 1 Application, top, PRN Ordered ALLERGIES/ADVERSE REACTIONS Allergies as of 12/26/2023 - Reviewed 12/26/2023 Allergen Reaction Noted Augmentin [amoxicillin-pot clavulanate] Other (see comments) 07/01/2020 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 PAST MEDICAL/SURGICAL HISTORY Past Medical History: Diagnosis Date Apnea Sleep Obstructive Chronic Kidney Disease NOS Complication Anesthesia Initial Dermatitis 2017 Dysphagia Gastroesophageal Reflux Disease NOS 1985 Intellectual Disability Profound 12/01/2020 Leukemia 1981 Pneumonia Post Operative Nausea/Vomiting Seizure (HCC) Lennoy Guustaut Syndrome Sepsis (HCC) 02/22/2023 Sickness Motion Personal History Stroke (HCC) brain stem stroke SOCIAL HISTORY Social History Socioeconomic History Marital status: Single Tobacco Use Smoking status: Never Smokeless tobacco: Never Substance and Sexual Activity Alcohol use: Never Drug use: Never Social Determinants of Health Food Insecurity: No Food Insecurity (03/10/2023) Hunger Vital Sign Worried About Running Out of Food in the Last Year: Never true Ran Out of Food in the Last Year: Never true Transportation Needs: Unknown (12/11/2021) PRAPARE - Transportation Lack of Transportation (Medical): No Lack of Transportation (Non-Medical): Patient declined Intimate Partner Violence: Not At Risk (03/10/2023) Humiliation, Afraid, Rape, and Kick questionnaire Fear of Current or Ex-Partner: No Emotionally Abused: No Physically Abused: No Sexually Abused: No Housing Stability: Unknown (12/11/2021) Housing Stability Vital Sign Unable to Pay for Housing in the Last Year: Patient refused Number of Places Lived in the Last Year: 1 Unstable Housing in the Last Year: No FAMILY HISTORY Family History Problem Relation Name Age of Onset Anemia Mother Ke hilario Leukemia Mother Ke hilario Hyperlipidemia Mother Ke hilario Migraines Mother Ke hilario Anxiety disorder Mother Ke hilario COPD Grandmother maternal CABG - Coronary artery bypass graft Grandmother maternal 68 Heart failure Grandmother maternal Pernicious anemia Grandfather Diabetes type II Grandfather Sleep apnea Father andrés hilario Ulcerative colitis Father andrés hilario Arthritis Maternal Grandfather champ aguirre Coronary artery disease Maternal Grandmother [place] Transient ischemic attack Maternal Grandmother [place] Hypertension Maternal Grandmother [place] Sleep apnea Maternal Grandmother [place] Depression Maternal Grandmother [place] Stroke Paternal Grandfather Suleman aguirre Diabetes Paternal Grandfather Suleman aguirre Dementia Paternal Grandmother shauna hilario Gestational diabetes Sister neeta hilario Gestational diabetes Daughter neeta hilario Thyroid disease Sister andrés hilario VITAL SIGNS Vitals: 12/27/23 0100 BP: 126/68 Pulse: 101 Resp: 21 Temp: SpO2: 99% PHYSICAL EXAMINATION Vital signs reviewed. General: Awakens and opens eyes to voice. Lifts head off bed. Otherwise nonverbal. HEENT: Chapped lips with some lip swelling Chest: Normal vesicular breathing with equal air entry bilaterally. No wheezes, rales, or rhonchi. CVS: Normal rate, regular rhythm. Normal first and second heart sounds. No added sounds. No rubs, murmurs, or gallops Abdomen: Soft and lax. GJ tube in place, no erythema, redness, drainage around site. Appears nontender to palpation. Extremities: Skin with patchy erythematous eruption along left side of neck and shoulder. Lower limb edema: negative. LABS Recent Labs 12/26/23 2350 12/26/23 1749 NA 138 131 L CL -- 92 L BICARB 28 28 CALCIUM -- 9.0 BUN -- 8 CREATININE -- 0.40 L GLUCOSE -- 103 ALBUMIN -- 4.3 HGB -- 12.2 L HCT -- 35.9 L WBC -- 9.4 PLT -- 170 INR -- 1.2 PT -- 12.8 H ASSESSMENT / PLAN Say Hilario is a 43 y.o. male with a past medical history significant for Ayaan-Gastaut syndrome, ALL (age 20 months, s/p chemoradiation), developmental delay (non verbal at baseline), chronic G-tube (placed age 10, converted to GJ tube 2019), lateral medullary stroke (age 12), recurrent s eizures (1-4 seizures daily, on Keppra/Lamictal/Clobazam/felbamate/rufinamide), CHEKO on nocturnal 1 L O2, urosepsis 02/2023 in the setting of UTI with left obstructing ureteral stone s/p ureteral stentplacement. Mr. Hilario presented to the emergency department with concerns for loose stools, low-grade temperature to 100?? F, 1 episode of vomiting, and dislodgement of his G J-tube. His GJ tube has been replaced and is in adequate position as seen on CT. Chest x-ray has demonstrated pulmonary opacities throu ghout both lungs, and he has been initiated on treatment for pneumonia, possibly aspiration pneumonia in the setting of his vomiting episode. He was FLOW COORDINATOR'd to the MICU for concerns of increased somnolence, however reassuringly he is at/is close to his neurologic baseline upon arrival to the MICU. Itis unclear cause his decrease in alertness/mental status changes, but possibly multifactorial secondary to underlying infection, IV fentanyl, hypercarbia. Although his lips are swollen, no signs of anaphylaxis with no wheezing, respiratory compromise, and spontaneous improvement in his neurologic status. PLAN BY SYSTEMS: NEURO: # Ayaan-Gastaut syndrome # Developmental delay (non verbal at baseline) # Recurrent seizures (1-4 seizures daily, on Keppra/Lamictal/Clobazam/felbamate/rufinamide) # History of remote lateral medullary stroke - Per Mom, he has multiple seizures per day. They do not treat his seizures unless they are prolonged or generalized tonic-clonic. Would let family guide on when rescue benzodiazepines are needed. - Pain management: Tylenol prn for fevers and pain. Home [place] 10-325 Q6H PRN, Baclofen (20 mg fourtimes daily) for spasticity - Home regimen: Seizures: - rufinamide (200 mg AM, 400 mg PM) - felbamate (1,500 mg AM, 1,200 mg at 1400, and 1,200 mg at 2100) - levetiracetam (1,500 mg AM, 1,600 mg PM) - lamotrigine (350 mg AM, 350 mg at 1400, 300 mg PM) - clobazam (15 mg AM, 10 mg PM) for seizures - cannabidioL (Epidiolex), 200mg via G-tube in the AM and give 400 mg at bedtime - Seizure rescue plan: for tonic-clonic seizures lasting longer than 3 minutes, give 20 mg rectal diazepam and additional 200 mg levetiracetam up to three times daily as needed CARDIAC: - MAP Goal: > 65. Per Mom, home blood pressures are 90s/50s. RESP: # Nocturnal hypoxia concerning for obstructive vs central sleep apnea # Possible aspiration pneumonia/CAP - Oxygen via NC to keep sats >90% - CXR: Bilateral pulmonary opacities - CAP/aspiration pneumonia treatment: Ceftriaxone (12/25 - ) and doxycycline (12/25 - ). Anticipate short course (3-5 days). Previously thought to have had a skin rash ceftriaxone however rash was feltto be benign and likely related to a drug reaction. - REPAIR TECHNICIAN consult - Will email sleep physician Dr. Vasquez to inquire about doing sleep study inpatient given the logistical challenges RENAL/: - Electrolyte goals: K: 4-5 and Mg: >2. GI: # Chronic G-tube (placed age 10, converted to GJ tube 2019), replaced in ED # Diarrhea, query overflow with stool burden on CT - Nutrition: tube feeds (home formula Peptamen 1.0) with as tolerated oral intake - Bowel regimen considering stool burden on CT - PPI not indicated ENDO: - Glucose checks per protocol ID: # Possible aspiration pneumonia/CAP - CAP treatment: Ceftriaxone (12/25 - ) and doxycycline (12/25 - ). Anticipate short course (3-5 days). Previously thought to have had a skin rash ceftriaxone however rash was felt to be benign and likely related to a drug reaction HEME: # History of ALL (age 20 months, s/p chemoradiation) - Anticoagulation/DVT prophylaxis: Lovenox SKIN # left neck and shoulder erythematous eruption - Hydrocortisone 0.5% b.i.d. ACCESS: - PIV x2, GJ tube - Code Status: Full - Surrogate decision maker, Mom - ICU level of cares. - Family updated. This case was discussed with Dr. Person. If any questions arise, please page the [facility] 3 service pagerat [phone]. Adia Samuel M.D. PGY-2 #[id number] * Wes Person M.B.BMayS. - 12/27/2023 12:51 AM CDT SUBJECTIVE CHIEF COMPLAINT: Pneumonia HISTORY OF PRESENTING ILLNESS: This is a supervisory note for the multidisciplinary critical care team. I have personally seen andexamined the patient, and reviewed all pertinent laboratory, vital signs and imaging data. I have reviewed the history, physical examination, impression, report, and plan with the team in detail and agree with the documentation outlined in their notes from today. Say Hilario is a 43 y.o. male who is admitted to the ICU with pneumonia. The main reason for ICU transfer was neurologic observation and cardiorespiratory monitoring. 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 He was last admitted for pneumonia and lethargy in March 2023. He was admitted to the hospital this evening with sepsis secondary to pneumonia that may or may notbe aspiration related. He also had partial dislodgement of his gastrojejunal tube that was repositioned by our emergency medicine colleagues with CT and aspiration of gastric contents confirming goodposition. Laboratory studies on admission noted mild hyponatremia, mild neutrophilia, and a mildly elevated lactate of 2.7 that subsequently normalized. He had episodes of apneas noted at bedside andsomnolence so FLOW COORDINATOR was called. He was brought to the medical ICU for neurologic in cardiorespiratorymonitoring. Antimicrobial received so far include ceftriaxone and doxycycline. He has also received 2 L of IV saline, and received 75 mcg of fentanyl for his tube repositioning earlier today. Point of care ultrasound on arrival shows poor windows, but adequate biventricular function with no pericardial effusion. OBJECTIVE BP (!) 136/110 Pulse (!) 114 Temp 36.9 ??C (Axillary) Resp 16 SpO2 99% ASSESSMENT / PLAN #1 Pneumonia, community-acquired versus aspiration #2 Dysphagia, on long-term tube feeds via a gastrojejunal tube (placed 2019, previously G-tube); dislodged at initial presentation and repositioned in ER #3 Ayaan-Gastaut syndrome with recurrent seizures #4 Severe cognitive delay #5 Likely obstructive sleep apnea #6 History of ALL, status post treatment with chemoradiation at 20 months #7 History of recurrent aspiration pneumonias #8 History of prior urinary infections secondary to nephrolithiasis, 2022 #9 History of lateral medullary stroke, age 12 #10 Code status: Full code (surrogate decision maker are his parents) Say Hilario is a 43 y.o. male who is admitted to the ICU with pneumonia. He has somnolencethat is slightly worse than baseline in the context of intercurrent illness. Cardiorespiratory status is stable. SUMMARY PLAN: 1. Continue ceftriaxone and doxycycline for antimicrobial coverage. 2. Continue tube feeds per home protocol. 3. Continue home medications. 4. Benzodiazepines for generalized tonic-clonic seizure if needed. He does have multiple seizures aday, with multiple seizure types including staring, myoclonic and tonic-clonic. Again family will be a good guide for this. 5. Regular updates with family. 6. Reach out to his sleep medicine physician in the morning to see whether inpatient sleep study isindicated or he should have a sleep study done in the outpatient setting. I'd personally favor the latter. Remaining issues per the systems-based plan outlined in the ICU notes from today. Critical care time 30 minutes. This is time spent at this critically ill patient's bedside activelyinvolved in patient care as well as the coordination of care and discussions as appropriate. This does not include any procedural time which has been billed separately. * Fatmata Grier M.D. - 12/27/2023 12:07 AM CDT [facility] Medicine 6 ([facility]) Admission Note SUBJECTIVE 43 year-old male with a history of [place]-Gastaut syndrome; recurrent aspiration pneumonia; suspected sleep apnoea, and other co-morbidities, who is presenting with recurrent pneumonia and significant PCO2 retention causing acidaemia. CHIEF COMPLAINT / REASON FOR VISIT Fever J-Tube falling out HISTORY OF PRESENT ILLNESS Mr. Say Hilario is a 43 year-old male with a history of Ayaan-Gastaut syndrome; recurrent seizure activity with intermittent generalized tonic-clonic seizures requiring multiple anti-epileptic drugs (Keppra/Lamictal/Clobazam/felbamate/rufinamide); developmental delay (reportedly functions at ~a 9 month-old); acute lymphocytic leukaemia (age 20 months; s/p chemotherapy and radiation therapy); s/p lateral medullary cerebrovascular accident at age 12 years; nocturnal hypoxia raising suspicion for obstructive versus central sleep apnoea (not investigated because parents do not believe he can tolerate an overnight polysomnography; uses oxygen supplementation 1 L/min per n.c. at bedtime); previous aspiration pneumonia and at high risk for subsequent aspiration ; s/p chronic PEG-J usage for medications and nutritional support, and other co-morbidities.. He presented to the [facility] ED with 1-day complaint of subjective fever associated with increased somnolence; screams due to pain, grimacing and shedding tears (he is usually non-verbal and cannot report/describe his symptoms); darker urine, decreased urinary output; and loose stools.His J-tube became partially dislodged. During my encounter, I obtained the history from his mother, because Mr. Hilario cannot speak. ED Course: BP 87/49 mmHg; HR 90-114 bpm; T 3 6.7-36.9 WBC 9.4; lactate 2.6-2.7; Cr 0.4 CXR: patchy opacities (decreased from CT abdomen: no acute disease; revealed bibasilar mixed consolidative and ground- glass opacities, concerning for new infection/inflammation.. His J-tube was replaced in the ED. He received two 1L boluses of 0.9% NaCl and was started empirically on IV ceftriaxone and IV doxycycline to treat pneumonia, and he was referred for admission to the Medicine 6 Service. Within an hour of being moved from the ED (where I evaluated him for admission to hospital) to his room on the general medel, his nurse and mother noticed that his lower lip and probably, his tongue were swollen; although his mother was unsure of such changes. 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 One dose of intramuscular epinephrine (0.3 mg) was ordered to the bedside, An FLOW COORDINATOR was activated, because he did not appear to be taking breathes, while the nurse was waiting for the remainder of the team, and the epinephrine to arrive at the bedside. Upon arrival at the bedside, he appeared to be apnoeic, despite the recording of the depth of respirations on his bedside monitor - I applied very vigorous sternal rubs which made him open his eyes only briefly. His mother, whose voice he recognizes best, shook him vigorously, but he could not stayawake or take adequate depths of breaths.The FLOW COORDINATOR members also attempted to wake him up (see detailsin their note). It was concerning that he could not remain awake between intermittent snoring. His blood gases indicated a low pH with PCO2 retention. These findings are consistent with his undiagnosed sleep apnoea.I explained to his mother that the required respiratory support (BiPAP therapy) would be best initiated in the MICU; thus, his transfer to the MICU Meds, allergies, medical, surgical, social & family histories have been reviewed & updated as necessary. Current Outpatient Medications on File Prior to Encounter: acetaminophen (TYLENOL) 325 mg tablet, 1,000 mg by g-tube route every 6 (six) hours as needed. , 12/26/2023 azelastine (ASTEPRO) 205.5 mcg/spray (0.15 %) nasal spray, Administer 1 spray into each nostril daily., 12/26/2023 baclofen (LIORESAL) 20 mg tablet, TAKE 1 TABLET (20MG) PER G-TUBE FOUR TIMES A DAY. DO NOT EXCEED 80MG PER DAY., 12/26/2023 at 2099 cannabidioL (Epidiolex) 100 mg/mL solution, Administer 200-400 mg via small bowel tube 2 (two) times a day. 200 mg AM, 400 mg PM, 12/26/2023 at 2099 clindamycin (CLEOCIN T) 1 % external solution, Apply 1 Application topically., 12/26/2023 cloBAZam (ONFI) 10 mg tablet, 15 mg by g-tube route every morning. , 12/25/2023 cloBAZam (ONFI) 10 mg tablet, Take 10 mg by mouth at bedtime., 12/26/2023 at 2099 clotrimazole (FUNGI CURE) 1 % external solution, Apply 1 Application topically daily as needed (rash on head)., 12/26/2023 clotrimazole-betamethasone (LOTRISONE) 1-0.05 % cream, Apply 1 Application topically 2 (two) times a day as needed (rash or concerns for yeast infection). Apply to affected areas., 12/26/2023 felbamate (FELBATOL) 600 mg/5 mL suspension, Take 1,500 mg by mouth every morning before breakfast., 12/25/2023 felbamate (FELBATOL) 600 mg/5 mL suspension, Take 1,200 mg by mouth 2 (two) times a day. At 1400 and 2100, 12/26/2023 at 2099 gabapentin (NEURONTIN) 300 mg capsule, Take 300 mg by mouth 3 (three) times a day as needed., 12/25/2023 HYDROcodone-acetaminophen (NORCO) 10-325 mg per tablet, Take 1 tablet by mouth every 6 (six) hours as needed., 12/25/2023 LaMICtaL 100 mg tablet, Take 100 mg by mouth 3 (three) times a day. 350 mg morning, 350 mg at 2pm, 300 mg at bedtime. (has both 100 mg & 200 mg for the total of 350mg and 300 mg doses), 12/26/2023t 2099 LaMICtal 200 mg tablet, TAKE 1 TABLET VIA GTUBE THREE TIMES DAILY, 12/26/2023 at 2100 levETIRAcetam (KEPPRA) 100 mg/mL solution, Administer 1,600 mg via gastric tube at bedtime., 12/26/2023 at 2100 levETIRAcetam (KEPPRA) 100 mg/mL solution, Administer 1,500 mg via gastric tube every morning., 12/26/2023 levocetirizine (XYZAL) 5 mg tablet, 5 mg by gastric tube route every evening. , 12/26/2023 at 0800 loperamide (IMODIUM A-D) 1 mg/7.5 mL liquid, Take 15 mL by mouth daily as needed., 12/25/2023 mometasone (NASONEX) 50 mcg/actuation nasal spray, Administer 2 sprays into each nostril daily., 12/26/2023 at 0800 multivitamin with minerals liquid, 9 mL by g-tube route., 12/26/2023 at 0800 nystatin (NYSTOP) 100,000 unit/gram powder, Apply 1 Application topically 3 (three) times a day. Apply to groin irritation., 12/26/2023 olopatadine (PATADAY) 0.2 % ophthalmic solution, Administer 1 drop into both eyes 4 (four) times a day as needed for allergies (redness)., Past Week polyethylene glycol (MIRALAX) 17 gram/dose oral powder, Administer 17 g via gastric tube daily as needed for constipation., Past Week rufinamide (BANZEL) 200 mg tablet, Administer 200 mg via gastric tube every morning., 12/26/2023 at 0800 rufinamide (BANZEL) 400 mg tablet, 400 mg by g-tube route at bedtime., 12/26/2023 at 2100 torsemide (DEMADEX) 10 mg tablet, Administer 10 mg via gastric tube daily as needed (edema)., Past Month zinc oxide (DESITIN) 13 % cream, Apply 1 Application topically as needed (skin cares). Apply to irritated perineal/jennifer-rectal skin., 12/26/2023 at 0830 zinc oxide 40 % ointment, Apply 1 g topically 2 (two) times a day. Apply to GT site for skin protectant., 12/25/2023 acetic acid 0.25 % irrigation (sterile), Irrigate with as directed 2 (two) times a day. For groin to perirectal/perineal area., Unknown albuterol (ACCUNEB) 2.5 mg /3 mL nebulizer solution, Inhale 2.5 mg every 6 (six) hours as needed for wheezing. bacitracin 500 unit/gram ointment, Apply 1 Application topically as needed (redness, inflammation on skin)., 12/24/2023 benzoyl peroxide (BREVOXYL) 4 % external liquid, Apply 1 Application topically., More than a month bisacodyL (DULCOLAX) 10 mg suppository, Insert 10 mg into the rectum daily as needed for constipation (if no results from AM miralax)., More than a month DIASTAT ACUDIAL 12.5-15-17.5-20 mg rectal kit, Insert 20 mg into the rectum as needed for seizures (if having more than 10 generalized tonic-clonic seizures per hour or if seizure lasts more than 3 minutes, may repeat once. if seizures continue, call 911)., More than a month diazePAM (VALIUM) 10 mg tablet, 1 tablet (10 mg total) by g-tube route 3 (three) times a day as needed (seizures). fevarqmuqlgviov-osvkzrjfj-ifjanvk (MAGIC MOUTHWASH) 1:1:1, Swish and spit 15 mL every 4 (four) hours as needed., More than a month haloperidol (HALDOL) 2 mg/mL concentrated solution, Take 1 mg by mouth 4 (four) times a day as needed for agitation., More than a month hydrocortisone (HYTONE) 2.5 % cream, Apply 1 Application topically daily as needed (itching)., Morethan a month ibuprofen (ADVIL,MOTRIN) 600 mg tablet, 600 mg by g-tube route every 8 (eight) hours as needed for pain. , More than a month ipratropium-albuteroL (DUONEB) 0.5-2.5 mg/3 mL nebulizer solution, Inhale 3 mL by nebulization 4 (four) times a day as needed for shortness of breath., More than a month ketoconazole (NIZORAL) 2 % cream, Apply 1 Application topically 2 (two) times a day as needed for irritation or rash., More than a month levETIRAcetam (KEPPRA) 100 mg/mL solution, Administer 200 mg via gastric tube 3 (three) times a dayas needed (seizures)., at 2100 LORazepam (ATIVAN) 2 mg tablet, Administer 2 mg via gastric tube daily as needed (seizures)., More than a month magnesium hydroxide (MILK OF MAGNESIA) 400 mg/5 mL suspension, Administer 30 mL via gastric tube daily as needed (if needed for constipation If no results from Miralax, Dulcolax Sup, Fleet, and Mineral Oil enemas.)., More than a month mineral oil enema, Insert 1 enema into the rectum daily as needed., More than a month nystatin (MYCOSTATIN) 100,000 unit/gram cream, Apply 1 Application topically 2 (two) times a day. Apply to groin irritation. nystatin-triamcinolone (MYCOLOG II) 100,000 Unit/g-0.1 % cream, Apply 1 Application topically 2 (two) times a day as needed (fungal infection). Apply to affected areas., More than a month pseudoephedrine (Sudafed) 30 mg tablet, Take 30 mg by mouth every 6 (six) hours as needed for congestion., More than a month silver nitrate (ARZOL) 75-25 % topical stick, Apply 1 Application topically as needed (redness). Apply 1-2x/week as needed for redness topically around GT stoma until redness is gone or no longer needed., More than a month silver nitrate (ARZOL) 75-25 % topical stick, Apply 1 Application topically as needed (for treatment of granulation tissue). Use every 3-4 days as needed as educated by HEN nurse, More than a month silver sulfADIAZINE (SILVADENE, SSD) 1 % cream, Apply 1 Application topically daily as needed for wound care. Apply to skin break down in groin., More than a month simethicone (MYLICON,GAS-X) 125 mg capsule, Take 125 mg by mouth every 6 (six) hours as needed for flatulence (bloating)., More than a month zaleplon (SONATA) 5 mg capsule, Take 1 capsule (5 mg total) by mouth See Admin Instructions. Take as needed, if unable to sleep during sleep study. May repeat if needed. Allow a minimum of 4 hours prior to driving after last dose. If drowsy after sleep study do not drive until adequately alert., More than a month OBJECTIVE VITAL SIGNS Temperature: [36.7 ??C-36.9 ??C] 36.9 ??C Heart Rate: [90-103] 100 Resp Rate: [8-19] 12 Blood Pressure: (87-124)/(49-93) 87/49 SpO2: [86 %-100 %] 100 % Flow Rate (L/min): [2 L/min] 2 L/min Pulse Rate: [90-114] 114 PHYSICAL EXAMINATION GEN: sleeping; NAD MENT: briefly opened his eyes to noxious stimuli and his mother's voice NEURO: cannot test; did not remain alert beyond a few seconds of opening eyes HENT: lower lip appears larger than upper; old ulcers at left corner of lower lip; dry mm; thick plaques on visible lower teeth with only a portion of the tongue visualized EYES: mostly closed; dilated pupils LUNGS: good A/E; deep snoring intermittently; no adventitia anteriorly; no cyanosis HEART: RRR; S1S2 present ABDO: PEG-J tube in place; clean site; ND, no grimacing when palpated MSK: no jerking movements during the exam; can be passively moved/repositioned in bed; maintains position of head when moved on pillow SKIN: old erythematous macular eruption along left side of neck, shoulder and upper arm EXT: cold feet; peripheral IV in medial aspect of right root; no pitting oedema DIAGNOSTICS I have independently reviewed the labs, ECG, and xray from 12/26/2023 ASSESSMENT / PLAN #1 Recurrent aspiration pneumonia #2 Dislodged J-Tube, repositioned in the ED #3 History of lateral medullary cerebrovascular accident at age 12 years #4 On-going nocturnal hypoxia raising suspicion for obstructive versus central sleep apnoea He is at high of aspirating, and probably has on-going micro-aspirations of his GI tract contents into his lungs - He cannot control his posture in bed and is intermittently apnoeic. He also has severe periodontal disease. 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 Will administer IV aztreonam in place of penicillins. #5 Nutrition support #6 Dislodged J-Tube, repositioned in the ED Will consult Dietitian to order his Peptamen to be re-started at the appropriate rate after the disruption in administration. 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 Diet: NPO; Needs orders by Dietitian to re-start Peptamen via J-tube Tubes/lines: PIV and PEG-J tube VTE prophylaxis: enoxaparin Code status: Full Code Baseline Mobility: BMAT Level 1 (Bedbound) Disposition: Home with Home Health Discussed with FLOW COORDINATOR Team I personally spent a total of 75 min + 60 minutes of FLOW COORDINATOR time minutes providing and coordinating care today. documented in this encounter Procedure Notes * Jamia Lozano M.D. - 12/26/2023 9:36 PM CDTAssociated Order(s): Feeding Tube Replacement Procedure Feeding Tube Replacement Performed by: Jamia Lozano M.D. Authorized by: Jamia Lozano M.D. Care team members present 1. Jamia Lozano M.D. PROCEDURE DETAILS Old tube details Old tube type: gastrojejunostomy New Tube Details Patient position: recumbent Dilation of tract needed: no Placement difficulty: none Fluoroscopic image guidance used [...] none POST-PROCEDURE DETAILS Procedure completed successfully: yes Placement/position confirmation: auscultation and gastric contents aspirated Complications: no immediate complications Jamia Lozano M.D. 12/26/23 2138 documented in this encounter Consult Notes * Imelda Judge M.S., [facility]-REPAIR TECHNICIAN - 12/30/2023 9:15 AM CDT Images from the original note were not included. Speech Pathology Dysphagia Videofluoroscopic Swallow Study (VFSS) Outpatient Session Type: Evaluation Length of session: 30 minutes SUBJECTIVE Referred By: [facility] Medicine 3 Reason for Consult: Dysphagia History: Mr. Hilario was seen for a clinical swallow evaluation yesterday and this VFSS was arranged for today. Please see yesterday's REPAIR TECHNICIAN consult note for history. Pain Patient does not appear to be in any pain OBJECTIVE Flowsheet Row Most Recent Value Description of Procedure Previous MBS/VFSS Yes Results and Recommendations 2020, oral stage deficits Planes Tested Lateral Type Assessment MBS IMP Statement of Consent Yes, Discussed goals, risks, alternatives, and the necessity of other members of the procedureal team participating in the procedure with the patient., The patient understands and wishes to proceed [patient's HCA gave consent] Consistencies Assessed (MBS) Consistencies Assessed Yes Level 0 Thin Lip Closure 4: Escape beyond mid-chin Bolus Transport/Lingual Motion 1: Delayed initiation of tongue motion Oral Residue 1: Trace residue lining oral structures Onset of Pharyngeal Swallow 0: Bolus head at posterior angle of ramus (first hyoid excursion) Laryngeal Elevation 0: Complete superior movement of thyroid cartilage with complete approximation of arytenoids to epiglottic petiole Anterior Hyoid Excursion 0: Complete anterior movement Epiglottic Movement 0: Complete inversion Laryngeal Vestibular Closure 0: Complete, no air/contrast in laryngeal vestibule Pharyngeal Stripping Wave 0: Present - complete Pharyngoesophageal Segment Opening 0: Complete distension and complete duration, no obstruction of flow Tongue Base Retraction 0: No contrast between TB and posterior pharyngeal wall (PW) Pharyngeal Residue 1: Trace residue within or on pharyngeal structures Penetration/Aspiration Scale 1: Material does not enter airway Penetration No Aspiration No Level 4 Puree Lip Closure 3: Escape progressing to mid-chin Bolus Transport/Lingual Motion 1: Delayed initiation of tongue motion Oral Residue 1: Trace residue lining oral structures Onset of Pharyngeal Swallow 0: Bolus head at posterior angle of ramus (first hyoid excursion) Soft Palate Elevation 0: No bolus between soft palate (SP)/pharyngeal wall (PW) Laryngeal Elevation 0: Complete superior movement of thyroid cartilage with complete approximation of arytenoids to epiglottic petiole Anterior Hyoid Excursion 0: Complete anterior movement Epiglottic Movement 0: Complete inversion Laryngeal Vestibular Closure 0: Complete, no air/contrast in laryngeal vestibule Pharyngeal Stripping Wave 0: Present - complete Pharyngoesophageal Segment Opening 0: Complete distension and complete duration, no obstruction of flow Tongue Base Retraction 0: No contrast between TB and posterior pharyngeal wall (PW) Pharyngeal Residue 1: Trace residue within or on pharyngeal structures Penetration/Aspiration Scale 1: Material does not enter airway Penetration No Aspiration No Level 7 Regular Lip Closure 2: Escape from interlabial space or lateral juncture, no extension beyond vermilion border Bolus Prep/Mastication 2: Disorganized chewing/mashing with solid pieces of bolus unchewed Bolus Transport/Lingual Motion 1: Delayed initiation of tongue motion Oral Residue 3: Majority of bolus remaining Oral Residue Location Tongue MBSImP Scores Oral Impairment Score 10 Pharyngeal Impairment Score 0 Assessment During the videofluoroscopic swallow study, lateral views were recorded as the patient swallowed controlled and larger amounts of thin liquid barium, applesauce mixed with barium, and cookie tagged with barium. Oral control of all consistencies was impaired with anterior loss of all consistencies. Mastication of the cookie was prolonged with solid pieces left unchewed. There was oral residue of most of the cookie bolus which required liquid washes to clear. The pharyngeal swallow response was timely. Range of tongue base retraction, hyolaryngeal excursion, and epiglottic inversion were withinnormal limits and offered adequate airway protection. There was no evidence of laryngeal penetration or aspiration with any test consistencies during today's evaluation. After the liquid wash to clear the cookie bolus from the oral cavity, there was post-swallow residue in the valleculae. Additional liquid washes were not effective for clearing this, but an applesauce bolus was effective. Relaxation through the cricopharyngeal segment was adequate. Overall, the patient continues to demonstrate moderate oral stage dysphagia and a pharyngeal phase that is grossly within functional limits. The post-swallow residue in the valleculae appeared to be due to incomplete mastication more than to any physiologic deficit in the pharynx. The results of today's swallow study were reviewed in detail with the patient's mother. Select images and clips from today's study are available in QREADS. Functional Oral Intake Scale: Level 3 - Tube dependent with consistent oral intake of food or liquid Diagnosis: Moderate oral stage dysphagia Plan DYSPHAGIA RECOMMENDATIONS: PEG tube for primary nutrition, hydration, and medications. Diet Recommendation-Solids: IDDSI Level 7 Regular (for pleasure) Diet Recommendation-Liquids: IDDSI Level 0 Thin (for pleasure) Medication Recommendation: Feeding tube Safety Precautions: Patient must be alert and upright for oral intake Small bites and sips one at a time Watch for patient to swallow before presenting additional trials Use liquid or puree washes with solids as needed Complete thorough oral care to reduce oral bacteria as able REPAIR TECHNICIAN will follow while hospitalized Discharge Location: Home REPAIR TECHNICIAN Ongoing Services: Ongoing formal Speech Pathology services Duration of Treatment: until goals are met * Erika Scruggs CCC-REPAIR TECHNICIAN - 12/29/2023 10:35 AM CDT Speech Language Pathology Dysphagia Evaluation- Acute Care Session Type: Evaluation Length of session: 10 minutes Time of Dysphagia Session: 1035 SUBJECTIVE Referred By: [facility] Medicine 3 History: Mr. Hilario is a 43 y.o. male who was admitted to [facility] on 12/26/2023 due to fever andJ-tube becoming dislodged. There is concern for aspiration PNA. His history is significant for Ayaan-Gastaut syndrome, developmental delay, prior L medullary stroke at age 12, and CHEKO. Mr. Hilario's medical history is well documented in the electronic medical record, please refer to admission notes for full history. He completed a video swallow study with occupational therapy in 2019 at which time no aspiration or penetration was reported. Mr. Hilario previously received Speech Pathology services addressing dysphagia. He was seen during hospitalization in 02/2023 and it was recommended that he continue regular solids and thin liquids. Speech Pathology consult was received for evaluation of dysphagia. Prior Level of Functioning: History was obtained from patient's parents. He receives tube feeding and consumes some soft solidsand purees orally. He consumes very minimal liquid. Family reports concern for increased coughing with oral intake. Patient/Family Goal(s): To eat and drink safely General Arousal/Alertness: Generalized responses to stimuli Behavior: Alert, Cooperative Pain Not formally assessed OBJECTIVE Objective Session Data Oral Motor Facial Symmetry: Within Functional Limits (WFL) Labial Structure and Function: Impaired Lingual Structure and Function: Impaired Mandible Strength and Function: Within Functional Limits (WFL) Assessment Suspected dysphagia. Patient does not follow commands for completion of oromotor assessment. Lingual and labial movement is disorganized and is possibly weak. Mandibular ROM appears functional. He did not appear to have difficulty managing secretions today and was able to maintain appropriate alertness for PO intake. Oral trials were not offered as he was planned to have a procedure this PM. Given ongoing concern for aspiration PNA and parents concerns for increased coughing with oral intake, avideo swallow study is recommended. Initially this was planned for this afternoon, but I recommended moving to tomorrow AM given planned procedure this afternoon. This is now scheduled for 12/30/23 [id number] with further recommendations to follow. His parents expressed excellent understanding. Goals: Dysphagia Clockmaker Goal Dysphagia Clockmaker Goal: Patient will tolerate least restrictive diet without overt s/s suggestiveof aspiration Dysphagia Clockmaker Goal Progress Toward Goal: Progress toward goal completion: continue on target Dysphagia Short Term Goal 1 Dysphagia Short Term Goal 1: Patient will complete instrumental evaluation to evaluate pharyngeal swallow function. Dysphagia Short Term Goal 1 Progress Toward Goal: Progress toward goal completion: continue on target Diagnosis: Impressions Dysphagia Consistent with a diagnosis of:: Suspected needs further assessment Plan DYSPHAGIA RECOMMENDATIONS: Video swallow study at 0915 REPAIR TECHNICIAN will follow. Please page [phone] M-F or [phone] on weekends/holidays with questions or concerns. Discharge Location: Home REPAIR TECHNICIAN Ongoing Services: Ongoing formal Speech Pathology services Duration of Treatment: until goals are met Speech Pathology Service Pager: Dysphagia [phone] Speech Pathology Service Pager: Communication [phone] [place] Rothman, CCC-REPAIR TECHNICIAN, CBIS * Pebbles Shaikh, Judy.S.W., M.S.W. - 12/27/2023 2:20 PM CDT SUBJECTIVE Social work met with the patient and his parents, Shelby and Andrés, to update previous assessment, offer support, and assist as needed. The patient lives with family in a one level home. Between family and home health care staff the patient has 24 hour care. Family notes there is a nursing shortage, but otherwise they have no concerns. The patient has oxygen with [facility]. He has a shower seatand a wheelchair. Shelby and Andrés report feeling things are well managed at home and anticipate no need for resources/support. OBJECTIVE Please see social work assessment completed 02/23/2023 for further detail. ASSESSMENT / PLAN ASSESSMENT It appears that the patient/family has insight into their needs at discharge and are planning appropriately at this time. PLAN Patient to discharge with home health care. Home Medical Care - Admitted Since 12/26/2023 Service Provider Selected Services Address Phone Fax Patient Preferred [facility] [address] [place], [facility] [address] [phone] -- Contact: Jesica NURSING: - Complete documentation in the Discharge Navigator including Nursing Report Info and Facility/NextLevel of Care Info - Call report and arrange for the patient???s first visit. - Send required packet of dismissal information with patient, including After Visit Summary and advance directive. PRIMARY SERVICE: - Please provide a non-[facility] health order for resumption of previous services by home health care on the After Visit Summary. If additional services are needed, please provide order. - Communicate with the patient???s local primary care provider by telephone for writing of home care orders. This needs to be done to help prevent discharge delays. A copy of the After Visit Summary needs to be sent there as well. SOCIAL WORK: -Reviewed patient's insurance coverage for the services noted above. The parents Shelby and Andrés appear(s) to have an understanding of this. -Will continue to follow and assist if needs arise. Oxygen Reconnect: Durable Medical Equipment - Admitted Since 12/26/2023 Service Provider Selected Services Address Phone Fax Patient Preferred [facility] [employer] [facility] Medical Equipment [phone] [address] -- Contact: Intake Respiratory Equipment : concentrator, tanks Oxygen provider reports patient???s current orders are for 2 liters continuous. NURSING: - Arrange transportation oxygen tank if needed. - If new oxygen requirements are needed, assist primary service with new prescription and fax to provider. PRIMARY SERVICE: - Complete and sign new oxygen prescription if needed. SOCIAL WORK: -Reviewed patient's insurance coverage for the services noted above. The parents Shelby and Andrés appear(s) to have an understanding of this. -Will continue to follow and assist if needs arise. Fausto Osorio, M.S.W. 12/27/23 * Srinath Rodriguez M.D. - 12/27/2023 1:19 PM CDTAssociated Order(s): IP CONSULT TO SLEEP MEDICINE SUBJECTIVE REASON FOR CONSULT Evaluation of sleep disordered breathing HISTORY OF PRESENT ILLNESS Mr. Hilario is a pleasant 43 y.o. male with a past medical history of ayaan- gastaut syndrome, severe cognitive delay, ALL s/p treatment age 20 months, GJ tube, lateral medullary stroke (age 12), recurrent seizures who was admitted on 12/26 for GJ tube dislodgement, fever, diarrhea, and increased somnolence with concern for aspiration pneumonia and transferred to the medical ICU for concerns of increased somnolence and possible sepsis. Of note, patient was last seen in the sleep Medicine Clinic on 07/08/2023 where he concern for obstructive sleep apnea was brought up by the patient's primary caretakers with documented history of witnessed apneas, snort arousals, and snoring with excessive daytime sleepiness. At that time the planwas to perform an in-lab polysomnography, since the patient was already using nocturnal oxygen and due to his current medical comorbidities a home sleep apnea test might serve to be too difficult. However, since that test was ordered the patient had not gone ahead with scheduling this test. Sleep Medicine was contacted by the primary medical ICU team today as they are looking to downgradethe patient since he has become more medically stable at this time and we are hoping to get more clarity upon the scheduling of his outpatient polysomnography test. #1 Ayaan-Gastaut syndrome with developmental delay (nonverbal at baseline) #2 Recurrent seizures #3 Nocturnal hypoxia on nocturnal supplemental oxygen #4 Concern for obstructive sleep apnea At this time we have discussed with the primary team in the patient's family and decided that we will schedule a pre PSG visit outpatient as soon as the patient was discharged at which point he will be re-evaluated and be followed up with an outpatient polysomnography test to be scheduled. Patient's family noted that the reason the 1st polysomnography never got scheduled was because he just fell t hrough the cracks and with the winter coming around the corner they were just unable to get this sorted out. Case discussed with Dr. Vernell Rodriguez Sleep Medicine Fellow * Breanna Alicea, SHAYY, LD - 12/27/2023 9:07 AM CDTAssociated Order(s): IP CONSULT TO DIETITIAN Clinical Nutrition: Initial Assessment Clinical Nutrition was requested to evaluate patient for tube feeding recommendations/management SUBJECTIVE Mr. Hilario presented to the emergency department with concerns for loose stools, low-grade temperature to 100?? F, 1 episode of vomiting, and dislodgement of his G J-tube. His GJ tube has been repositioned.. Chest x-ray has demonstrated pulmonary opacities throughout both lungs, and he has been ini tiated on treatment for pneumonia, possibly aspiration pneumonia in the setting of his vomiting episode. He was FLOW COORDINATOR'd to the MICU for concerns of increased somnolence. Past medical history includes but is not limited to: Ayaan-Gastaut syndrome, ALL (age 20 months, s/p chemoradiation), developmental delay (non verbal at baseline), chronic G-tube (placed age 10, converted to GJ tube 2019), lateral medullary stroke (age 12), recurrent seizures Current Nutrition (since admission): none thus far. Noted plan for possible tube replacement today vs tomorrow, as this was due to be completed 12/28. Nutrition history: Pt is on home tube feeds and followed by the HEN team. Additionally, does take oral intake. Notes indicate pt had been coughing with intake. Pt's mom was not present at time of RDNinterview to verify nutrition history. At last HEN appointment in June, it was recommended that pt consume minimal oral intake until a VFSS could be completed. I do not see that this has been done. Additionally, tube feeding volume was decreased to support goal of gradual weight loss. Home Nutrition Prescription Formula Type: Peptamen Additive: Prosource TF Infusion Schedule: 3 cartons given overnight at 85 mL/hr x9 hours. 3 packets Prosource TF daily viaflush Water Flushes: 60 mL before and after feeds Other Flushes: 250 mL water added to feeds, 220 mL with medication administration as they are - adjust pending hydration status Additional Multivitamin: Continue additional multivitamin, formula volume provides 50% DRIs At goal, this will provide a total of: 870 calories/day, 63 g protein/day, and 638 mL of fluid/day.Water flushes will provide extra fluid. OBJECTIVE Current nutrition orders: Dietary Orders (From admission, onward) Start Ordered 12/27/23 0855 No oral nutrition, no tube feeding Diet effective now 12/27/23 0854 Pertinent Labs: Reviewed for nutrition related care plan implications GI Function: nothing charted yet this admission. Integumentary/Wounds: Lines/Drains/Airways Wound Duration Wound 03/12/23 Incontinence Associated Dermatitis Groin to Perineum and Perirectal Area 290 days Wound 03/12/23 Other Moisture Associated Skin Damage Abdomen Left;Lower GJ-Tube 290 days Medications: Scheduled Meds:azelastine, 1 spray, each nostril, Daily baclofen, 20 mg, gastric tube, 4x Daily cannabidioL, 200 mg, gastric tube, Once [START ON 12/28/2023] cannabidioL, 400 mg, gastric tube, QAM cannabidioL, 600 mg, gastric tube, Daily at bedtime cefTRIAXone, 2 g, intravenous, Q24H cloBAZam, 10 mg, gastric tube, Daily at bedtime cloBAZam, 15 mg, gastric tube, QAM doxycycline, 100 mg, intravenous, Q12H enoxaparin, 40 mg, subcutaneous, Q24H JULIO felbamate, 1,200 mg, gastric tube, BID [START ON 12/28/2023] felbamate, 1,500 mg, gastric tube, Daily before breakfast fluticasone propionate, 2 spray, each nostril, Daily hydrocortisone, 1 Application, topical, BID lamoTRIgine, 300 mg, gastric tube, Daily at bedtime lamoTRIgine, 350 mg, gastric tube, BID levETIRAcetam, 1,500 mg, gastric tube, QAM levETIRAcetam, 1,600 mg, gastric tube, Daily at bedtime [START ON 12/28/2023] loratadine, 10 mg, gastric tube, Daily multivitamin/mineral-adult, 1 tablet, gastric tube, Daily NaCl, 1,000 mL, intravenous, Once nystatin, 1 Application, topical, BID nystatin, 1 Application, topical, TID rufinamide, 200 mg, gastric tube, QAM rufinamide, 400 mg, gastric tube, Daily at bedtime sodium chloride, 3 mL, intravenous, Q12H JULIO sodium chloride, 3 mL, intravenous, Q12H JULIO zinc oxide, 1 g, topical, BID Anthropometrics: Height: 156 cm Admission Weight: 67.8 kg (12/26/2023) Current Weight: 67.8 kg BMI (Calculated): 27.9 kg/m?? Weight change since admission: 0 kg Net IO Since Admission: -831 mL [12/27/23 1051] Weight history: Per EMR, 06/25 66.6 kg. 02/22 71.1 kg. No significant changes noted. Estimated Needs: Total Calorie Needs: 0102-3922 calories/day Method to Estimate Energy Needs: kcal/kg (15-20 kcal/kg) Weight Used for Equation Calculations: 67.8 kg Total Protein Needs: 81 - 102 grams/day (Method to Estimate Protein Needs (g/kg): 1.2 - 1.5 gm/kg) Weight Used to Calculate Protein Needs (Kg): 67.8 kg Nutrition Diagnosis: Inadequate oral intake related to dysphagia as evidenced by group home dependence on supplemental enteral feeds to meet estimated needs ASSESSMENT / PLAN Nutrition Intervention: Interventions: Enteral nutrition, Collaboration and referral of nutrition care. Recommendations: Continuous tube feeds while in the ICU; all nutrition needs to be met enterally. Formal swallow evaluation prior to initiation of oral intake Start enteral nutrition: Peptamen AF via J port (most equivalent to home formula which is not available on our inpatient formulary) with standard initiation and advancement to goal rate of 45 mL/hourfor 24 hours/day. Water flushes: Minimum 60 mL every 6 hours or per primary team Enteral nutrition as recommended will provide 1296 total calories and 82 grams of protein and less than 100% of the Reference Daily Intake of vitamins and minerals per day. Monitoring/Evaluation: Nutrition parameter to monitor: Diet Progression/NPO Status, Enteral, Weight Status, Pertinent Labs, Chewing/Swallowing, Nausea/Vomiting/Diarrhea Desired Outcome: Tolerate enteral nutrition at goal Patient Goal(s): Tolerate enteral nutrition at goal rate Clinical Nutrition will continue to follow. For questions about patient's nutritional care please contact pager [phone] on weekdays 07:30-16:00 or [phone] on weekends/holidays. Addendum At 1412: RDN was able to meet w/ pt's mom. She verified above enteral nutrition regimen iscorrect, as outlined in the nutrition history section. She also noted that when pt is not feeling well or not swallowing well, she will increase his feeds from 3 cartons per day to 4, since she puts oral intake on hold. She was doing this prior to admit as pt had not been eating for the past 5-7 days related to coughing on foods, emesis. When he is feeling well he eats three meals per day. Breakfast is something like cream of wheat with pudding or applesauce. Lunch is mashed potatoes with peas.Dinner might be a grilled cheese sandwich or cream chipped beef on toast. Fluid intake is only sips. She has no questions or concerns related to his tube feeds. * Ravi Duenas M.D. - 12/26/2023 11:42 PM CDT FLOW COORDINATOR EVALUATION REASON FOR FLOW COORDINATOR: Increased somnolence SUBJECTIVE SUMMARY OF SITUATION Say Hilario is a 43 y.o. male who presented with fever, diarrhea, partial dislodgment of GJ tube, found to have pneumonia in the ED. Patient was admitted to the hospital medicine service for further evaluation and management. On original arrival to the floor, the patient appeared somnolent and not responding significantly to verbal stimuli. He briefly would awaken with pain stimuli. He had received 75 mcg of Fentanyl in the ED approximately 5 hours prior. FLOW COORDINATOR was called in this setting. On arrival by the FLOW COORDINATOR team, the patient is somnolent as above. He awakens relatively easily to painful stimuli, however quickly falls back asleep. He occasionally furrows his brow. The patient is nonverbal at baseline. On discussion with his mother, she feels that he may be slightly sleepier than his baseline, and he is not generally responding to stimuli that he would typically (i.e. verbal stimuli, he is not currently tracking, and painful stimuli is only momentarily keeping him awake). 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 PHYSICAL EXAMINATION BP 92/55 (BP Location: Left arm) Pulse 93 Temp 36.9 ??C (Axillary) Resp 12 SpO2 98% General: Tired appearing, developmentally disabled, awakens momentarily with sternal rub, not tracking with eyes, non verbal. HEENT: Possible lip swelling CV: Normal rate, 2+ radial pulses, warm Respiratory: No upper airway sounds, CTAB anteriorly LABS/DIAGNOSTICS VBG: pH 7.298, PCO2 57.7, HCO3 28.3 Lactate: 1.1 Last Labs from Hospitalization Recent Results (from the past 24 hour(s)) Glucose, POCT Collection Time: 12/26/23 4:32 PM Result Value Glucose, POCT, B 101 Site Venstick Lactate Collection Time: 12/26/23 4:33 PM Result Value Lactate, P 2.6 (H) Basic Metabolic Panel Collection Time: 12/26/23 5:49 PM Result Value Potassium, P 4.4 Sodium, P 131 (L) Chloride, P 92 (L) Bicarbonate, P 28 Anion Gap, P 11 BUN (Blood Urea Nitrogen), P 8 Creatinine 0.40 (L) Estimated GFR (eGFR) >90 Calcium, Total, P 9.0 Glucose, P 103 CBC with Differential, Blood Collection Time: 12/26/23 5:49 PM Result Value Hemoglobin 12.2 (L) Hematocrit 35.9 (L) Erythrocytes 3.54 (L) MCV 101.4 (H) RBC Distrib Width 13.1 Platelet Count 170 Leukocytes 9.4 Neutrophils 8.04 (H) Lymphocytes 0.85 (L) Monocytes 0.38 Eosinophils 0.09 Basophils 0.03 Prothrombin Time (PT) Collection Time: 12/26/23 5:49 PM Result Value Prothrombin Time, P 12.8 (H) INR 1.2 Lactate for Sepsis with Reflex Collection Time: 12/26/23 5:49 PM Result Value Lactate, P 2.3 (H) Lipase Collection Time: 12/26/23 5:49 PM Result Value Lipase, S 8 (L) Hepatic Function Panel Collection Time: 12/26/23 5:49 PM Result Value Bilirubin, Total, S 1.2 Bilirubin, Direct, S 0.7 (H) Aspartate Aminotransferase (AST), S 68 (H) Alanine Aminotransferase (ALT), S 37 Alkaline Phosphatase, S 131 (H) Albumin, S 4.3 Protein, Total, S 6.9 Dipstick, POCT, Urine Collection Time: 12/26/23 7:06 PM Result Value Glucose, POCT, U Negative Ketone, POCT, U Negative Specific [place], POCT, U 1.015 Blood, POCT, U Negative pH, POCT, Urine 7.0 Protein, POCT, U Negative Nitrites, POCT, U Negative Leukocytes, POCT, U Negative Urinalysis, with Microscopic: Urine, Catheter Collection Time: 12/26/23 7:07 PM Result Value Source Urine, Urine, Catheter Color, U Yellow Clarity, U Clear Protein, U 8 Protein/Osmolality 0.34 Predicted 24 HR Protein, U 335 (H) Predicted Range 106-1054 Microscopic Automated Collection Time: 12/26/23 7:07 PM Result Value Microscopy Normal RBC None Seen WBC None Seen Osmolality, Urine Collection Time: 12/26/23 7:07 PM Result Value Osmolality, U 237 pH, Urine Collection Time: 12/26/23 7:07 PM Result Value pH, U 7.0 Dipstick, Urine Collection Time: 12/26/23 7:07 PM Result Value Hemoglobin, QL, U Negative Leukocyte Esterase, U Negative Nitrite, U Negative Ketone, U Negative Glucose, U Negative Influenza A/B, SARS CoV-2, PCR, Rapid Symptomatic Collection Time: 12/26/23 7:50 PM Specimen: Nasopharynx; Swab Result Value Influenza A, PCR, Rapid, V Negative Influenza B, PCR, Rapid, V Negative SARS CoV-2, PCR, Rapid, V Undetected Infl A/B, SARS CoV-2, PCR, Source Swab, Nasopharynx Lactate Collection Time: 12/26/23 9:01 PM Result Value Lactate, P 2.7 (H) Microbiology Results (last 10 days) Procedure Component Value - Date/Time Influenza A/B, SARS CoV-2, PCR, Rapid Symptomatic [[id number]] Collected: 12/26/23 1950 Lab Status: Final result Specimen: Swab from Nasopharynx Updated: 12/26/232017 Influenza A, PCR, Rapid, V Negative Influenza B, PCR, Rapid, V Negative SARS CoV-2, PCR, Rapid, V Undetected Comment: ----ADDITIONAL INFORMATION---- This RT-PCR test was performed using the Jo[employer] SARS-CoV-2 and Influenza A/B Reagent assay from [employer], which has received Emergency Use Authorization(EUA) by the U.S. Food and Drug Administration. Fact sheets for this Emergency Use Authorization (EUA) assay can be found at the following links: For Healthcare Providers: https://www.fda.gov/media/494972/download For Patients: https://www.fda.gov/media/876107/download Infl A/B, SARS CoV-2, PCR, Source Swab, Nasopharynx Bacterial Culture, Aerobic + Susceptibility, Urine [[id number]] Collected: 12/26/23 193 Lab Status: In process Specimen: Urine, Midstream Updated: 12/26/232035 Bacteria / Christopher Culture, Blood #2 [[id number]] Collected: 12/26/23 180 Lab Status: In process Specimen: Blood, Peripheral Draw Updated: 12/26/231816 Narrative: Received Bactec aerobic and Bactec anaerobic bottles Specimen Information: Specimen ID: [id number] Specimen Source: Blood, Peripheral Draw Specimen Comment: Specimen Source Site: Blood Specimen Collection Start Date: 12/26/2023 6:06 PM Specimen Received Date: 12/26/2023 6:17 PM Specimen ID: [id number] Specimen Source: Blood, Peripheral Draw Specimen Comment: Specimen Source Site: Blood Specimen Collection Start Date: 12/26/2023 6:06 PM Specimen Received Date: 12/26/2023 6:17 PM Specimen ID: [id number] Specimen Source: Blood, Peripheral Draw Specimen Comment: Specimen Source Site: Blood Specimen Collection Start Date: 12/26/2023 6:06 PM Specimen Received Date: 12/26/2023 6:17 PM Bacteria / Christopher Culture, Blood #1 [[id number]] Collected: 12/26/23 175 Lab Status: In process Specimen: Blood, Peripheral Draw Updated: 12/26/231816 Narrative: Received Bactec aerobic and Bactec anaerobic bottles Specimen Information: Specimen ID: [id number] Specimen Source: Blood, Peripheral Draw Specimen Comment: Specimen Source Site: Blood Specimen Collection Start Date: 12/26/2023 5:50 PM Specimen Received Date: 12/26/2023 6:17 PM Specimen ID: [id number] Specimen Source: Blood, Peripheral Draw Specimen Comment: Specimen Source Site: Blood Specimen Collection Start Date: 12/26/2023 5:50 PM Specimen Received Date: 12/26/2023 6:17 PM Specimen ID: [id number] Specimen Source: Blood, Peripheral Draw Specimen Comment: Specimen Source Site: Blood Specimen Collection Start Date: 12/26/2023 5:50 PM Specimen Received Date: 12/26/2023 6:17 PM ASSESSMENT / PLAN FLOW COORDINATOR ASSESSMENT Say Hilario is a 43 y.o. male who presented with fever, diarrhea, partial dislodgment of GJ tube, found to have pneumonia in the ED. Medical comorbidities are notable for brainstem stroke syndrome, [place]-Gastaut syndrome and difficult to control seizures, recent urosepsis in the context urinary stones, GJ tube presents for evaluation of fever, decreased jean urine with in and out caths, diarrhea, and feeding tube partial dislodgement At the current time, it is unclear the cause of Mr. Hilario's AMS. Narcotics less likely given thathe received Fentanyl over 5 hours ago, no decrease in respiratory rate, and pupils dilated. Query if this is acute metabolic encephalopathy in the setting of pneumonia and poor neurologic reserve. No documented significant seizures outside of Mr. Hilario's normal to point towards post-ictal state. He previously has elevated CO2 on VBG and bicarbonate of 28 as well points to this being less likelyrelated to hypercarbia. Discussed with primary team, nursing, and patient's mother. Overall, given the change in his mentalstatus and difficulty in evaluating the patient given his nonverbal status, as well as his recent pneumonia, we will plan to transfer him to MICU for further evaluation and management. DISPOSITION: Transfer to MICU CODE STATUS: Full Code Disposition discussed with eICU employee relations consultant, Dr. Booth. Recommendations and disposition discussed with primary team and bedside nurse who are in agreement. Thank you for this consultation. Ravi Duenas M.D. Internal Medicine PGY-3 Pager [phone] documented in this encounter Nursing Notes * Tong Gilbert R.N. - 12/30/2023 12:03 PM CDT Discharge Note Pt discharged to home accompanied by family members; escorted in pt's own wheelchair by transport. Vital signs stable at time of discharge. Pt and family state that all questions have been answered and discharge education was completed adequately. All belongings sent with family. Vitals: 12/30/23 1145 BP: (!) 115/98 Pulse: 86 Resp: 16 Temp: 36.9 ??C SpO2: 92% * Brittney Dsouza R.N. - 12/30/2023 5:39 AM CDT Shift Goals: Clinical Goals for the Shift: patient will remain hemodynamically stable. Identify possible barriers to meeting goals/advancing plan of care: multiple stools. End of Shift Summary: VSS on 1L NC, patient had multiple loose stools. TF started overnight, and patient tolerated well. Patient will discharge home today. Blood pressure 120/63, pulse 80, temperature 36.8 ??C, resp. rate 17, height 156 cm, weight 70.2 kg, SpO2 99%. Problem: Incontinence and/or Moisture Goal: Skin integrity is maintained or improved Outcome: Progressing * Paris Magana R.N., CCRN - 12/29/2023 6:07 PM CDT Problem: PAIN - ADULT Goal: PT VERBALIZES/DEMONSTRATES ADEQUATE COMFORT LEVEL OR BASELINE Outcome: Progressing Problem: SAFETY ADULT Goal: Maintain a safe environment Outcome: Progressing Problem: Incontinence and/or Moisture Goal: Skin integrity is maintained or improved Outcome: Progressing Shift Goals: Clinical Goals for the Shift: Hemodynamic Stability End of Shift Summary: Pt has limited verbal response. RASS 0 to -2. Underwent G/J tube exchange. Mother at bedside for support. Requiring 1L of O2 during sleep for desaturations. Vitals within range. Electronically signed by: Paris Magana R.N., CCRN 12/29/23 6:10 PM CDT * Carine Lopez - 12/29/2023 4:25 PM CDT Patient is a 43 y.o. male admitted on 12/26/2023 Alert Information: Plan of Care: Pt seen on Nasal Cannula 2 L. Continue to monitor respiratory status. Wean oxygen perprotocol. Principal Problem Aspiration Pneumonia Secondary to Procedure Electronically signed by: Carine Lopez 12/29/23 4:26 PM CDT Under the direction of Heidi Rock FLOW COORDINATOR * Africa Winkler, R.N. - 12/29/2023 1:18 PM CDT PEG/PEJ Nursing Procedure Note ASSESSMENT / PLAN Patient Name: Say Hilario Department : [facility], SIXTH FLOOR SUBJECTIVE Past Medical History: Diagnosis Date Apnea Sleep Obstructive Chronic Kidney Disease NOS Complication Anesthesia Initial Dermatitis 2017 Dysphagia Gastroesophageal Reflux Disease NOS 1985 Intellectual Disability Profound 12/01/2020 Leukemia 1981 Pneumonia Post Operative Nausea/Vomiting Seizure (HCC) Lennoy Guustaut Syndrome Sepsis (HCC) 02/22/2023 [place] Personal History Stroke (HCC) brain stem stroke Past Surgical History: Procedure Laterality Date CYSTOSCOPY INSERTION STENT URETER Left 02/22/2023 Procedure: CYSTOSCOPY INSERTION STENT URETER; Surgeon: Ermias Young M.D., M.P.H.; Location: [facility] EXCHANGE URETERAL STENT Left 04/05/2023 Procedure: EXCHANGE URETERAL STENT.; Surgeon: Bi Rivera M.D.; Location: [facility] OR OTHER SURGICAL HISTORY N/A Gastrocnemius recession (eg, Maren procedure).. RETROGRADE PYELOGRAM Left 04/05/2023 Procedure: RETROGRADE PYELOGRAM; Surgeon: Bi Rivera M.D.; Location: [facility] OR SINUS SURGERY 1987 URETEROSCOPY WITH LASER LITHOTRIPSY Left 04/05/2023 Procedure: URETEROSCOPY WITH LASER LITHOTRIPSY.; Surgeon: Bi Rivera M.D.; Location: [facility] OR Social History Socioeconomic History Marital status: Single Tobacco Use Smoking status: Never Smokeless tobacco: Never Substance and Sexual Activity Alcohol use: Never Drug use: Never Social Determinants of Health Food Insecurity: No Food Insecurity (03/10/2023) Hunger Vital Sign Worried About Running Out of Food in the Last Year: Never true Ran Out of Food in the Last Year: Never true Transportation Needs: Unknown (12/11/2021) PRAPARE - Transportation Lack of Transportation (Medical): No Lack of Transportation (Non-Medical): Patient declined Intimate Partner Violence: Not At Risk (03/10/2023) Humiliation, Afraid, Rape, and Kick questionnaire Fear of Current or Ex-Partner: No Emotionally Abused: No Physically Abused: No Sexually Abused: No Housing Stability: Unknown (12/11/2021) Housing Stability Vital Sign Unable to Pay for Housing in the Last Year: Patient refused Number of Places Lived in the Last Year: 1 Unstable Housing in the Last Year: No OBJECTIVE Procedure Patient presents to [facility] Patient being seen for: TGJ Type of procedure: Replacement Location of tube: Stomach and Jejunum (stoma in stomach, tip in jejunum) Brand of tube: Avanos Type of connector: small-bore Reference number: [id number] Size of Tube: 22 Fr Top of skin disc level: 3.5 Internal Retention Device: Balloon Balloon volume in mL: 10 T Fasteners: Not Present Skin integrity of site: Erythema Ostomy tube not altered. Ostomy appliance not applied. Complications: None Was the tube labeled: No Verification of tube done by: Fluoroscopy After Visit Information Recommendations for after procedure: Follow nursing guideline PEG/PEJ Tube Site Care and Tube Replacement, Home [facility], Follow instructions page 6-12 in PEG/PEJ booklet for post tube placement activity, pain control, site care and Contact number is in wallet card and PEG/PEJ booklet for any questions or concers related to tube Return appointment timeframe: 3-5 months Tube is used for: Feeding and Venting When may you use tube: May use tube immediately Tube placed to gravity: No Patient Education Learning needs assessment. Who is being assessed: Family Any barriers to learning: None Learning preference: Listening Education: PEG/PEJ Wallet Card ([id number]) Exchanged without sedation. Stoma was measured for a low profile tube per family's request. * Yuniel Josue - 12/29/2023 4:13 AM CDT Patient is a 43 y.o. male admitted on 12/26/2023 Principal Problem: Aspiration Pneumonia Secondary to Procedure PMH: Past Medical History: Diagnosis Date Apnea Sleep Obstructive Chronic Kidney Disease NOS Complication Anesthesia Initial Dermatitis 2017 Dysphagia Gastroesophageal Reflux Disease NOS 1985 Intellectual Disability Profound 12/01/2020 Leukemia 1981 Pneumonia Post Operative Nausea/Vomiting Seizure (HCC) Lennoy Guustaut Syndrome Sepsis (HCC) 02/22/2023 [place] Personal History Stroke (HCC) brain stem stroke Plan of Care: Ambulate as tolerated, Continue to encourage coughing and deep breathing, Anesthesia bag and mask at bedside, Wean supplemental oxygen as tolerated by patient, Assess and monitor respiratory status per ICU protocol, and Continue to assess BID Oxygen Therapy: $Delivery Method: Room air Flow Rate (L/min): 2 L/min Yuniel Josue 12/29/23 4:13 AM CDT Under the direction of Ermias May R.R.T., TezRMayTMay, FLOW COORDINATOR-ACCS * Jb Valencia RJuli - 12/28/2023 7:19 PM CDT Problem: SAFETY ADULT - RISK FOR FALL AND OR FALL INJURY Goal: Patient remains free from fall/fall injury 12/28/2023 1918 by Jb Valencia, RMayN. Outcome: Progressing Note: Free from fall/fall injury during the shift 12/28/2023 1637 by Jb Valencia, RMayN. Outcome: Progressing Shift Goals: Clinical Goals for the Shift: Hemodynamic Stability Identify possible barriers to meeting goals/advancing plan of care: ICU Level of Care End of Shift Summary: Mr. Hilario remains ICU level of care. Patient given 2mg PO Dilaudid as ordered my service around 1200. At 1500, patient was noted to be more somnolent, RASS -3 and acute desaturation to 81% that required anesthesia bag for recovery with RR 4-6. Service immediately responded to bedside. Narcan IV given and patient RASS 0 with RR 12-14 after 4 minutes. 5 doses given then IV narcan drip started. Patient will remain in ICU overnight for close monitoring. Handoff given 1900. Electronically signed by: Manas Valencia R.N. 12/28/23 7:22 PM CDT * Jenny Middleton R.R.T., L.R.T. - 12/28/2023 4:05 PM CDT Patient is a 43 y.o. male admitted on 12/26/2023 Principal Problem: Aspiration Pneumonia Secondary to Procedure PMH: Past Medical History: Diagnosis Date Apnea Sleep Obstructive Chronic Kidney Disease NOS Complication Anesthesia Initial Dermatitis 2017 Dysphagia Gastroesophageal Reflux Disease NOS 1985 Intellectual Disability Profound 12/01/2020 Leukemia 1981 Pneumonia Post Operative Nausea/Vomiting Seizure (HCC) Lennoy Guustaut Syndrome Sepsis (HCC) 02/22/2023 [place] Personal History Stroke (HCC) brain stem stroke Shift Summary: Patient did well on NC - this afternoon he became more somnolent and was obstructing - narcan was given, and nasal trumpet was placed. He was breathing more comfortably after placement. Plan of Care: Anesthesia bag and mask at bedside, Wean supplemental oxygen as tolerated by patient, Assess and monitor respiratory status per ICU protocol, and Continue to assess BID Airway: Airway Adjuncts Nasal pharyngeal airway 7.5 (Active) Placement Date/Time: 12/28/23 1504 Airway Device: Nasal pharyngeal airway Size (mm): 7.5 Oxygen Therapy: $Delivery Method: Nasal cannula Flow Rate (L/min): 2 L/min Jenny Middleton R.R.T., L.R.T. 12/28/23 4:05 PM CDT * Elisa Rock R.R.T., L.R.T. - 12/28/2023 8:04 AM CDT Patient is a 43 y.o. male admitted on 12/26/2023 Recent Surgery: Principal Problem: Aspiration Pneumonia Secondary to Procedure PMH: Past Medical History: Diagnosis Date Apnea Sleep Obstructive Chronic Kidney Disease NOS Complication Anesthesia Initial Dermatitis 2016 Dysphagia Gastroesophageal Reflux Disease NOS 1985 Intellectual Disability Profound 12/01/2020 Leukemia 1981 Pneumonia Post Operative Nausea/Vomiting Seizure (HCC) Lennoy Guustaut Syndrome Sepsis (HCC) 02/22/2023 [place] Personal History Stroke (HCC) brain stem stroke Significant Events During Current Stay: Shift Summary:\ 0800: Patient see for morning assessment on with no acute respiratory concerns at this time. Plan of Care: Anesthesia bag and mask at bedside and Assess and monitor respiratory status per ICU protocol Oxygen Therapy: $Delivery Method: Room air Flow Rate (L/min): 2 L/min Heidi Rock R.R.T., LMayR.TMay 12/28/23 8:04 AM CDT * Ermias May R.R.T., TezR.TMay, FLOW COORDINATOR-ACCS - 12/28/2023 6:04 AM CDT Patient is a 43 y.o. male admitted on 12/26/2023 Principal Problem: Aspiration Pneumonia Secondary to Procedure PMH: Past Medical History: Diagnosis Date Apnea Sleep Obstructive Chronic Kidney Disease NOS Complication Anesthesia Initial Dermatitis 2016 Dysphagia Gastroesophageal Reflux Disease NOS 1985 Intellectual Disability Profound 12/01/2020 Leukemia 1981 Pneumonia Post Operative Nausea/Vomiting Seizure (HCC) Lennoy Guustaut Syndrome Sepsis (HCC) 02/22/2023 [place] Personal History Stroke (HCC) brain stem stroke Shift Summary: Patient weaned from nasal cannula to room air overnight. Plan of Care: Anesthesia bag and mask at bedside, Wean supplemental oxygen as tolerated by patient, and Assess and monitor respiratory status per ICU protocol Oxygen Therapy: $Delivery Method: Room air Recent ABG: No results for input(s): PO2 ART, PCO2 ART, PH ART, HCO3 ART, BASE EXC ART in the last 24hours. Ermias May R.R.T., TezRMayTMay, FLOW COORDINATOR-ACCS 12/28/23 6:04 AM CDT * Carine Lopez - 12/27/2023 4:29 PM CDT Patient is a 43 y.o. male admitted on 12/26/2023 Alert Information: Shift Notes: Pt seen on 2 L NC. No respiratory concerns noted. Emergency bag and mask present at bedside. Plan of Care: Continue to monitor respiratory status and wean oxygen per protocol. Principal Problem Aspiration Pneumonia Secondary to Procedure Oxygen Therapy $Delivery Method: Nasal cannula Electronically signed by: Carine Lopez 12/27/23 4:32 PM CDT Under the direction of Say Swartz FLOW COORDINATOR * Mariana Marsh M.S.N., R.N. - 12/27/2023 12:00 AM CDT Pt arrived to room from ED around 2230 awake but sleepy. Assessment completed in which swollen lipsand tongue were noted. Pt's mom stated he has had several reactions to antibiotics in the past and he recently received antibiotics in the ED. While settling patient, around 2310, he was no longer able to wake up upon sternal rub. His breathing was more shallow in nature, and his hands were cool tothe touch. FLOW COORDINATOR initiated, see subsequent note and orders. documented in this encounter ED Notes * Jamia Lozano M.D. - 12/26/2023 11:08 PM CDT I saw the patient with the medical student. I was present for or re-performed the History of Present Illness. I personally performed a Physical Exam and Medical Decision Making. I reviewed medical student documentation and agree or amended. 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 Exam Non communicative with words Intermittently will furrow his brow Atraumatic head Quarter-sized areas of erythema on the left shoulder and left upper extremity and posterior neck right and left, no vesicles Abdomen: Feeding tube is partially dislodged, the balloon is outside the abdomen but intact, soft abdomen Clear lung rios No diaper rash Impression/plan: Fever, diarrhea, partial dislodgement of GJ tube Immediately upon my arrival to the room, I was able to replace the GJ tube. I tested and then deflated the balloon (balloon was intact) prior to placing Surgilube and repositioning the tube and then placed 8 mL of saline into the balloon after we were able to get gastric secretion return and insufflate air with auscultation gastric bubbles. Labs, urine, CT abdomen and pelvis, and chest x-ray were ordered. IV fluids were initiated. There was difficulty getting access but ultimately we were able to get an IV in the saphenous vein on the right foot. ED Course as of 12/26/232314 Sun Dec 26, 20231947 Leukocytes: 9.4 1947 Lactate(!): 2.6 1947 Creatinine(!): 0.40 1947 Sodium, P(!): 131 1948 Nitrites, POCT, U: Negative 1948 Leukocytes, POCT, U: Negative 1948 Chest x-ray shows decreased patchy opacities from prior x-ray. 1956 CT abd: IMPRESSION: 1. GJ tube terminates in the proximal jejunum. No acute intra-abdominal findings. 2. Bibasilar mixed consolidative and groundglass opacities, concerning for new infection/inflammation. 2011 My inclination initially was to admit to the hospital for further evaluation of pneumonia in this patient with possible aspiration pneumonia. After talking to the parents, however, they wished to try to go home if possible. We will give IV ceftriaxone and doxy saline and IV fluids and recheck point of care lactate as to lactate levels have continued to be elevated. They understand that if the lactate remains elevated that I would not recommend dismissal but given the circumstances, I want to try to support the family's wishes. 2131 Lactate(!): 2.7 2313 The patient's parents initially preferred to take him home but when the lactate continued to be elevated, I recommended that he be admitted to the hospital and they were in agreement with that plan. I suspect that he has a pneumonia which may be aspiration derived given his seizure disorder. The feeding tube is in place and can be used. They are due to have it changed in a few days. Final Diagnoses: as of 12/26/232314 Pneumonia Sepsis (HCC) Aftercare Feeding Tube Dehydration Diarrhea Acidosis Lactic Jamia Lozano M.D. 12/26/232314 * Smith Paul A - 12/26/2023 5:59 PM CDT SUBJECTIVE CHIEF COMPLAINT/REASON FOR VISIT Fever (J-tube fell out) and Altered Mental Status HISTORY OF PRESENT ILLNESS Say Hilario is a 43-year-old male with past medical history of intellectual disability, brainstem stroke syndrome, Ayaan-Gastaut syndrome who presents with 3 days of altered mental status, 1 dayof fever, and fallen out J-tube. Parents report that he has been sleepier for the past 3 days and has had liquid stools during this time. Yesterday they noticed dark urine and low urine output on stra ight catheterization. Last night he did not sleep well and was crying with pain, prompting his mother to give him hydrocodone. They are unable to tell the source of his pain but seem more signs of pain today such as tears and grimacing. Also had a fever this morning and 1 episode of vomiting. He pulled his G-tube out around noon and has not received any of his seizure medicines since that time, he had a dose due at 2 and has had multiple short seizures since missing that dose. Seizures last less than 10 seconds and her mostly tonic in nature. Does not receive rescue medications unless they begin to cluster. Of note he had an episode of sepsis due to obstructing ureteral stone in February 2023 requiring ureteral stent placement. He had recurrence of ureteral stone in March 2023 which was treated with laser lithotripsy. History provided by: Patient History limited by: Patient nonverbal REVIEW OF SYSTEMS Reason unable to perform ROS: Patient nonverbal. OBJECTIVE Initial Vitals Temperature 12/26/23 1626 36.8 ??C Pulse Rate 12/26/23 1621 101 Heart Rate 12/26/23 1645 100 Resp Rate 12/26/23 1621 14 Blood Pressure 12/26/23 1621 115/64 SpO2 12/26/23 1621 98 % Pain Score 12/26/23 1646 5 - Moderate pain PHYSICAL EXAMINATION Reason for incomplete physical exam: Exam limited by patient inability to follow direction. Cardiovascular: Regular rhythm, S1 normal and S2 normal. No murmur heard. Pulmonary/Chest: Effort normal and breath sounds normal. Abdominal: Soft. exhibits no distension and no mass. There is no guarding. Skin: Skin is warm and dry. He is not diaphoretic. ASSESSMENT/PLAN Assessment and Plan Say Hilario is a 43-year-old male with past medical history of intellectual disability, brainstem stroke syndrome, Ayaan-Gastaut syndrome who presents with 3 days of altered mental status, 1 dayof fever, and fallen out J-tube. As patient has been more somnolent than normal and febrile we willpursue workup for infection. Initial lactate of 2.6, decreased to 1.3 with 1 L normal saline. Urinalysis was bland. CT demonstrated increased bibasilar opacities increasing concern for pneumonia. Patient was given IV ceftriaxone and doxycycline with plans to send home at request of his parents, however 3rd lactate check after 2 L normal saline was increased to 2.7. We will plan to admit for treatment of pneumonia and monitoring.. DIFFERENTIAL DIAGNOSES Urinary tract infection, pneumonia, ureteral stone, viral gastroenteritis.. I reviewed the following external records: inpatient records. Final Diagnoses: as of 12/26/232136 Pneumonia Sepsis (HCC) Aftercare Feeding Tube Paul Smith 12/26/232138 * Chiquita Motta, RMayN. - 12/26/2023 4:19 PM CDT Pt baseline nonverbal and wheelchair bound. J tube fell out, last intake via tube was this AM. Mother reports fever at home earlier today and increased lethargy , treated with tylenol @ 1300. Fever resolved. Mother later reports she believes he had a small seizure in waiting room. Per mother pt stiffened up quickly and came back out seconds later. [place] [facility] [place]ita [place]ta R.N. 12/26/23 1620 Chiquita Motta R.N. 12/26/23 1637 documented in this encounter Miscellaneous Notes * Documentation Clarification - Little Johnson M.D. - 12/30/2023 12:14 PM CDT PROVIDER RESPONSE TEXT: To clarify, the appropriate diagnosis supported by the clinical indicators: Other (explain): Patient uses nocturnal oxygen, suspect secondary to obstructive sleep apnea. <LCI> QUERY TEXT: DOCUMENTATION CLARIFICATION REQUEST Please clarify/specify the appropriate diagnosis supported in the clinical indicators below. Chronic hypoxic respiratory failure Other (explain) Clinically unable to determine (explain) Clinical Indicators/Risk Factors/Treatment: Date of admission: 12/26/2023 Clinical indicators: H&P by Fatmata Grier M.D. at 12/27/2023 43 year-old male with a history of Ayaan-Gastaut syndrome; recurrent aspiration pneumonia; suspected sleep apnoea, and other co-morbidities, who is presenting with recurrent pneumonia and significant PCO2 retention causing acidaemia. Provider documentation: Consults by Srinath Rodriguez M.D. at 12/27/2023 sleep Medicine Clinic on 07/08/2023...concern for obstructive sleep apnea...witnessed apneas, snort arousals, and snoring with excessive daytime sleepiness. At that time the plan was to perform an in-lab polysomnography, since the patient was already using nocturnal oxygen...deferred Treatment: 1 liter NC at night Please contact me if you have questions. Thank you, Lan Kumar., MMayH.Fabien., R.NMay, CCDS Clinical Documentation Model Technician Query created by: Charlie Kumar, Ct, RJuli, CCDS 12/30/2023 11:34 AM CDT </LCI> * Hospital Course - Ralph Neil M.D. - 12/27/2023 4:34 AM CDT Say Hilario is a 43 y.o. male admitted on 12/26 for GJ tube dislodgement, fever, diarrhea, and increased somnolence with concern for aspiration pneumonia. Past medical history significant for [place]-Gastaut syndrome, ALL (age 20 months, s/p chemoradiation), developmental delay (non verbal at baseline), chronic G-tube (placed age 10, converted to GJ tube 2019), lateral medullary stroke (age 12), recurrent seizures (1-4 seizures daily, on Keppra/Lamicta l/Clobazam/felbamate/rufinamide), CHEKO on nocturnal 1 L O2, urosepsis 02/2023 in the setting of UTI with left obstructing ureteral stone s/p ureteral stent placement. ED: In the emergency department, noted to be mildly hyponatremic with an elevated lactate level to 2.7.Chest x-ray demonstrated persistent patchy pulmonary opacities throughout both lungs. Emergency department was able to replace his GJ tube, and CT confirmed his tube terminates in the proximal jejunum with no other acute intra-abdominal findings. Medicine 6: FLOW COORDINATOR was called overnight on 12/26/2023 for increased somnolence, with decreased ability to respond to verbal stimuli. VBG demonstrated some respiratory acidosis, however lactate was improved. He was transferred to the MICU for further evaluation and management. MICU: Upon arrival to the MICU, he was afebrile and hemodynamically stable. Mental status at baseline permother. Antibiotics were continued for concern of aspiration pneumonia. A formal swallow study was without evidence of aspiration. Sleep Medicine was consulted given concern for sleep apnea and recommended outpatient follow up with an outpatient polysomnography test. EEGwas performed which demonstrated moderate degree of diffuse nonspecific slow wave abnormalities. Hebriefly required a narcan drip after Dilaudid 2mg PO for somnolence and decreased respiratory rate with hypoxia. Patient returned to cognitive and respiratory baseline. GJ tube exchange without incident. It is recommended to replace tube in 3 months. Patient was discharged with sleep medicine follow up scheduled. Post hospital PCP visit was strongly recommended. Mother of patient reports that they have supplemental oxygen at home and all necessary supplies. documented in this encounter Plan of Treatment Not on file documented as of this encounter Procedures Procedure Name Priority Date/Time Associated Diagnosis Comments FL SWALLOW FUNCTION WITH VIDEO AND SPEECH OR OT FOR RST RAD - Timed (for specific dates/times) 12/30/2023 9:29 AM CDT CBC WITH DIFFERENTIAL, B Routine 12/30/2023 3:21 AM CDT BASIC METABOLIC PANEL, S/P Routine 12/30/2023 3:21 AM CDT NON-ENDOSCOPIC TUBE PROCEDURE Routine 12/29/2023 1:23 PM CDT EGD ? PERCUTANEOUS ENDOSCOPIC GASTROSTOMY/JEJUNOST ROLLY Routine 12/29/2023 1:23 PM CDT FL FLUORO LESS THAN 1 HOUR RAD - Routine (most inpatients and all outpatients) 12/29/2023 1:19 PM CDT CBC WITH DIFFERENTIAL, B Routine 12/29/2023 4:01 AM CDT BASIC METABOLIC PANEL, S/P Routine 12/29/2023 4:01 AM CDT PATIENT STATUS [...] W/O COOX Routine 12/27/2023 1:34 AM CDT CBC WITH DIFFERENTIAL, B Routine 12/27/2023 1:34 AM CDT CREATININE WITH EGFR, S/P Routine 12/27/2023 1:34 AM CDT COMPREHENSIVE METABOLIC PANEL, S/P Routine 12/27/2023 1:34 AM CDT LACTATE, POCT, B Routine 12/26/2023 11:5 4 PM CDT VBG & LYTES CG8+, POCT, [...] DIPSTICK, U STAT 12/26/2023 7:07 PM CDT MICROSCOPIC AUTOMATED STAT 12/26/2023 7:07 PM CDT PH, U STAT 12/26/2023 7:07 PM CDT OSMOLALITY, U STAT 12/26/2023 7:07 PM CDT URINALYSIS WITH MICROSCOPIC STAT 12/26/2023 7:07 PM CDT HC URINALYSIS AUTO WO MICRO Routine 12/26/2023 7:06 PM CDT DX CHEST PORTABLE 1 VIEW RAD - Semiurgent (Fast; most ED patients; some inpatients) 12/26/2023 6:21 PM CDT BACTERIA / CHRISTOPHER CULTURE, BLOOD STAT 12/26/2023 6:06 PM CDT BACTERIA / CHRISTOPHER CULTURE, BLOOD STAT 12/26/2023 5:50 PM CDT LACTATE FOR SEPSIS WITH REFLEX STAT 12/26/2023 5:49 PM CDT HEPATIC FUNCTION PANEL, S STAT 12/26/2023 5:49 PM CDT PROTHROMBIN TIME (PT), P STAT 12/26/2023 5:49 PM CDT CBC WITH DIFFERENTIAL, B STAT 12/26/2023 5:49 PM CDT LIPASE, S/P STAT 12/26/2023 5:49 PM CDT BASIC METABOLIC PANEL, S/P STAT 12/26/2023 5:49 PM CDT CYSTATIN C WITH EGFR Routine 12/26/2023 5:48 PM CDT VITAMIN B12 ASSAY, S Routine 12/26/2023 5:48 PM CDT LACTATE, B/P STAT 12/26/2023 4:33 PM CDT GLUCOSE POCT, B Routine 12/26/2023 4:32 PM CDT documented in this encounter Results * FL Swallow Function with Video and [...] Basic Metabolic Panel (12/30/2023 3:21 AM CDT) Potassium, S 3.8 3.6 - 5.2 mmol/L [...] CDT Ralph Neil M.D. LAB BLOOD ADD-ON [facility] [place] [address] [place] [address], [facility] DTL [facility] [address] [place] [address] * (ABNORMAL) CBC with Differential, Blood (12/30/2023 3:21 AM CDT) Hemoglobin 10.7(L) 13.2 - 16.6 g/dL 12/30/2023 4:21 AM CDT DTL Hematocrit 31.7(L) 38.3 - 48.6 % 12/30/2023 4:21 AM CDT DTL Erythrocytes 3.13(L) 4.35 - 5.65 x10(12)/L 12/30/2023 4:21 AM CDT DTL MCV 101.3(H) 78.2 - 97.9 fL 12/30/2023 4:21 AM CDT DTL RBC Distrib Width 13.2 11.8 - 14.5 % 12/30/2023 4:21 AM CDT DTL Platelet Count 211 135 - 317 x10(9)/L 12/30/2023 4:21 AM CDT DTL Leukocytes 4.7 3.4 - 9.6 x10(9)/L 12/30/2023 4:21 AM CDT DTL Neutrophils 2.53 1.56 - 6.45 x10(9)/L 12/30/2023 4:21 AM CDT DHPM Lymphocytes 1.38 0.95 - 3.07 x10(9)/L 12/30/2023 4:21 AM CDT DTL Monocytes 0.34 0.26 - 0.81 x10(9)/L 12/30/2023 4:21 AM CDT DTL Eosinophils 0.42 0.03 - 0.48 x10(9)/L 12/30/2023 4:21 AM CDT DTL Basophils 0.03 0.01 - 0.08 x10(9)/L 12/30/2023 4:21 AM CDT DTL Blood (Blood, Venous) 12/30/2023 3:21 AM CDT 12/30/2023 4:10 AM CDT Ralph Neil M.D. LAB BLOOD ADD-ON [facility] [place] [address] [place] [address], [facility] DTL [facility] [address] [place] [address] [facility] [address] [place] [address] * Non-Endoscopic Tube Procedure (12/29/2023 1:23 PM CDT) 12/29/2023 1:23 PM CDT Impressions [facility] - 12/29/2023 1:52 PM CDT Post-op Diagnoses: ? - The PEG-J tube was dislodged and was removed and replaced with a 3.5 ? cm long, 22 Fr [employer] FARIHA-SMALL Low-profile PEG-J gastrostomy tube. ? - No specimens collected. Narrative [facility] - 12/29/2023 1:52 PM CDT Gary 6 [...] to tube site or tube call ? [phone] Wednesday - Wednesday 7;30 am-4:30 pm or after hours, weekends, ? holidays call [facility] drying tunnel operator [phone] ask them to page ? [phone] and wait for MD to answer. May [...] 3.5cm long. A 3.5cm long, 22 Fr [employer] FARIHA-SMALL ? Low-profile PEG-J tube was lubricated [...] GI PROCEDURE ORDERAB LES Performing Organization Address [facility] Co de Phone Number MAE PROVATION NA * FL Fluoro Less Than 1 Hour (12/29/2023 1:19 PM CDT) Narrative ERCP LOS RST - 12/29/2023 1:20 PM CDT This exam does not require a radiologist review or interpretation. Please refer to the patient's medical record on this date for clinical details. Pedro Pablo Kline M.D. IMG FLUOROSCOPY PROC EDURES Performing Organization Address [facility] Co de Phone Number ERCP LOS RST * (ABNORMAL) Basic Metabolic Panel (12/29/2023 4:01 AM CDT) Potassium, S 4.3 3.6 - 5.2 mmol/L 12/29/2023 6:00 AM CDT DTL Sodium, S 140 135 - 145 mmol/L 12/29/2023 6:00 AM CDT DTL Chloride, S 103 98 - 107 mmol/L 12/29/2023 6:00 AM CDT DTL Bicarbonate, S 26 22 - 29 mmol/L 12/29/2023 6:00 AM CDT DTL Anion Gap 11 7 - 15 12/29/2023 6:00 AM CDT DTL BUN (Blood Urea Nitrogen), S 11 8 - 24 mg/dL 12/29/2023 6:00 AM CDT DTL Creatinine 0.36(L) 0.74 - 1.35 mg/dL 12/29/2023 6:00 AM CDT DTL Estimated GFR (eGFR) >90 >=60 mL/min/BSA 12/29/2023 6:00 AM CDT DTL Comment: Estimated GFR calculated using the 2020 CKD_EPI creatinine equation. Calcium, Total, S 8.6 8.6 - 10.0 mg/dL 12/29/2023 6:00 AM CDT DTL Glucose, S 77 70 - 140 mg/dL 12/29/2023 6:00 AM CDT DTL Blood (Blood, Venous) 12/29/2023 4:01 AM CDT 12/29/2023 5:44 AM CDT Ralph Neil M.D. LAB BLOOD ADD-ON [facility] [place] [address] [place] [address], [facility] [address] [address] * (ABNORMAL) CBC with Differential, Blood (12/29/2023 4:01 AM CDT) Pathologist [facility] Hemoglobin 11.1(L) 13.2 - 16.6 g/dL 12/29/2023 5:37 AM CDT DTL Hematocrit 32.8(L) 38.3 - 48.6 % 12/29/2023 5:37 AM CDT DTL Erythrocytes 3.19(L) 4.35 - 5.65 x10(12)/L 12/29/2023 5:37 AM CDT DTL MCV 102.8(H) 78.2 - 97.9 fL 12/29/2023 5:37 AM CDT DTL RBC Distrib Width 13.3 11.8 - 14.5 % 12/29/2023 5:37 AM CDT DTL Platelet Count 205 135 - 317 x10(9)/L 12/29/2023 5:37 AM CDT DTL Leukocytes 6.2 3.4 - 9.6 x10(9)/L 12/29/2023 5:37 AM CDT DTL Neutrophils 3.52 1.56 - 6.45 x10(9)/L 12/29/2023 5:37 AM CDT DHPM Lymphocytes 1.89 0.95 - 3.07 x10(9)/L 12/29/2023 5:37 AM CDT DTL Monocytes 0.46 0.26 - 0.81 x10(9)/L 12/29/2023 5:37 AM CDT DTL Eosinophils 0.28 0.03 - 0.48 x10(9)/L 12/29/2023 5:37 AM CDT DTL Basophils 0.03 0.01 - 0.08 x10(9)/L 12/29/2023 5:37 AM CDT DTL Blood (Blood, Venous) 12/29/2023 4:01 AM CDT 12/29/2023 5:27 AM CDT Ralph Neil M.D. LAB BLOOD ADD-ON [facility] [place] [address] DTL [facility] [address] [place] [address] [facility] [address] [place] [address] * Patient Status (12/28/2023 11:11 PM CDT) O2 Flow 2.0 L/min 12/28/2023 11:15 PM CDT STMA Device NC 12/28/2023 11:15 PM CDT STMA Spont. breaths/min 19 12/28/2023 11:15 PM CDT STMA Blood 12/28/2023 11:1 1 PM CDT 12/28/2023 11:15 PM CDT Adia Samuel M.D. LAB BLOOD NON AD D-ON [facility] [place] [address] STMA [facility] [address] [place] [address] * (ABNORMAL) Blood Gas without Coox, Venous (12/28/2023 11:11 PM CDT) pO2, Venous, B 44 Not applicable mm [...] Samuel M.D. LAB BLOOD NON AD D-ON [facility] [place] [address] [place], [place] [id number] [place], [place] [address]A [facility] [address] [place] [address] * Patient Status (12/28/2023 4:39 PM CDT) O2 Flow 2.0 L/min 12/28/2023 4:45 PM CDT STMA Device NC 12/28/2023 4:45 PM CDT STMA Spont. breaths/min 10 12/28/2023 4:45 PM CDT STMA Blood 12/28/2023 4:39 PM CDT 12/28/2023 4:45 PM CDT Ralph Neil M.D. LAB BLOOD NON ADD- ON [facility] [place] [address] [place] [address], [facility] STMA [facility] [address] [place] [address] * (ABNORMAL) Blood Gas with Coox, Venous (12/28/2023 4:39 PM CDT) Pathologist [facility] pO2, Venous, B 77 Not applicable mm [...] Neil M.D. LAB BLOOD NON ADD- ON [facility] [address] [place] [address], [place] [facility] [place] [address] [place] [address] * (ABNORMAL) Venous Blood Gas and Electrolytes CG8+, POCT (12/28/2023 3:19 PM CDT) [facility] Sample Site, POCT Venstick 12/28/2023 3:26 PM [...] M.S. LAB POCT ORD ERABLES - DEVICE Performing Organization Address [facility] de Phone Number POC [facility] [address] [place] [address], [place] [facility] POC [address] [place] [address] [facility] POC [address] [place] [address] * EEG (12/28/2023 7:29 AM CDT) Narrative [...] Kline M.D. NEUROLOGY ORDERABLES Performing Organization Address [facility] Co de Phone Number MMODAL NA * (ABNORMAL) CBC with Differential, Blood (12/28/2023 6:42 AM CDT) Hemoglobin 11.1(L) 13.2 - 16.6 g/dL 12/28/2023 7:37 AM CDT DTL Hematocrit 33.0(L) 38.3 - 48.6 % 12/28/2023 7:37 AM CDT DTL Erythrocytes 3.26(L) 4.35 - 5.65 x10(12)/L 12/28/2023 7:37 AM CDT DTL MCV 101.2(H) 78.2 - 97.9 fL 12/28/2023 7:37 AM CDT DTL RBC Distrib Width 13.1 11.8 - 14.5 % 12/28/2023 7:37 AM CDT DTL Platelet Count 220 135 - 317 x10(9)/L 12/28/2023 7:37 AM CDT DTL Leukocytes 7.1 3.4 - 9.6 x10(9)/L 12/28/2023 7:37 AM CDT DTL Neutrophils 4.94 1.56 - 6.45 x10(9)/L 12/28/2023 7:37 AM CDT DHPM Lymphocytes 1.42 0.95 - 3.07 x10(9)/L 12/28/2023 7:37 AM CDT DTL Monocytes 0.51 0.26 - 0.81 x10(9)/L 12/28/2023 7:37 AM CDT DTL Eosinophils 0.20 0.03 - 0.48 x10(9)/L 12/28/2023 7:37 AM CDT DTL Basophils 0.03 0.01 - 0.08 x10(9)/L 12/28/2023 7:37 AM CDT DTL Blood (Blood, Venous) 12/28/2023 6:42 AM CDT 12/28/2023 7:04 AM CDT Adia Samuel M.D. LAB BLOOD ADD-ON [facility] [place] [address] [place] [address], [facility] DTL [facility] [address] [place] [address] [facility] [address] [place] [address] * (ABNORMAL) Basic Metabolic Panel (12/28/2023 6:42 AM CDT) [facility] Potassium, S 3.8 3.6 - 5.2 mmol/L 12/28/2023 7:50 AM CDT DTL Sodium, S 139 135 - 145 mmol/L 12/28/2023 7:50 AM CDT DTL Chloride, S 105 98 - 107 mmol/L 12/28/2023 7:50 AM CDT DTL Bicarbonate, S 25 22 - 29 mmol/L 12/28/2023 7:50 AM CDT DTL Anion Gap 9 7 - 15 12/28/2023 7:50 AM CDT DTL BUN (Blood Urea Nitrogen), S 7(L) 8 - 24 mg/dL 12/28/2023 7:50 AM CDT DTL Creatinine 0.37(L) 0.74 - 1.35 mg/dL 12/28/2023 7:50 AM CDT DTL Estimated GFR (eGFR) >90 >=60 mL/min/BSA 12/28/2023 7:50 AM CDT DTL Comment: Estimated GFR calculated using the 2020 CKD_EPI creatinine equation. Calcium, Total, S 8.8 8.6 - 10.0 mg/dL 12/28/2023 7:50 AM CDT DTL Glucose, S 98 70 - 140 mg/dL 12/28/2023 7:50 AM CDT DTL Blood (Blood, Venous) 12/28/2023 6:42 AM CDT 12/28/2023 7:28 AM CDT Adia Samuel M.D. LAB BLOOD ADD-ON [facility] [address] [place] [address], [facility] [address] [place] [address] * Glucose, POCT (12/28/2023 6:26 AM CDT) Glucose, POCT, B 97 70 - 140 mg/dL 12/29/2023 3:30 PM CDT PCLX Site Capillary 12/29/2023 3:30 PM CDT PCLX Last Intake ContTubFdg 12/29/2023 3:30 PM CDT PCLX Blood 12/28/2023 6:26 AM CDT 12/29/2023 3:30 PM CDT Unknown Provider LAB POCT ORDERABLES- MANUAL Performing Organization Address City/[facility] Co de Phone Number POC [facility] [address] [place] [address], [place] [facility] [address] [place] [address] * ECG 12 Lead (12/27/2023 2:34 PM CDT) Ventricular Rate ECG/Min 95 BPM MUSE MD Interval 150 ms MUSE QRSD Interval 96 ms MUSE QT Interval 358 ms MUSE QTC Interval 449 ms MUSE P Early 19 degrees MUSE R Early -4 degrees MUSE T Wave Early 84 degrees MUSE 12/27/2023 2:34 PM CDT [...] CRAT Pedro Pablo Kline M.D. ECG ORDERABLES Performing Organization Address City/[facility] Co de Phone Number MUSE NA * Patient Status (12/27/2023 2:33 PM CDT) FIO2 0.21 0.21=AIR 12/27/2023 2:37 PM CDT STMA Spont. breaths/min 14 12/27/2023 2:37 PM CDT STMA Blood 12/27/2023 2:33 PM CDT 12/27/2023 2:37 PM CDT Pedro Pablo Kline M.D. LAB BLOOD NON ADD-ON [facility] [place] [address] [place] [address], [facility] STMA [facility] [address] [place] [address] * (ABNORMAL) Blood Gas with Coox, Venous (12/27/2023 2:33 PM CDT) pO2, Venous, B 45 Not applicable mm Hg 12/27/2023 2:39 PM CDT STMA pCO2, Venous, B 49 41 - 51 mm Hg 12/27/2023 2:39 PM CDT STMA pH, Venous, B 7.37 7.32 - 7.43 pH 024 2:39 PM CDT STMA Base Excess, Venous, B 3 Not applicable mmol/L 12/27/2023 2:39 PM CDT STMA HCO3, Venous, B 29 Not applicable mmol/L 12/27/2023 2:39 PM CDT STMA Hemoglobin, Venous, B 11.7(L) 13.2 - 16.6 g/dL 12/27/2023 2:39 PM CDT STMA O2Hb, Venous, B 80.2 Not applicable % 12/27/2023 2:39 PM CDT STMA COHb, Venous, B 2.1 <3.0 % 12/27/2023 2:39 PM CDT STMA MetHb, Venous, B <1.0 <1.5 % 12/27/2023 2:39 PM CDT STMA CtO2, Venous, B 13.1 Not Applicable vol % 12/27/2023 2:39 PM CDT STMA Sample Site, Venous, B Venipunct 12/27/2023 2:37 PM CDT STMA Blood (Blood, Venous) 12/27/2023 2:33 PM CDT 12/27/2023 2:37 PM CDT Pedro Pablo Kline M.D. LAB BLOOD NON ADD-ON [facility] [place] [address] [place] [address], [facility] [facility] [address] [place] [address] * Patient Status (12/27/2023 10:30 AM CDT) Pathologist [facility] FIO2 0.21 0.21=AIR 12/27/2023 10:33 AM CDT STMA Spont. breaths/min 13 12/27/2023 10:33 AM CDT STMA Blood 12/27/2023 10:3 0 AM CDT 12/27/2023 10:33 AM CDT Pedro Pablo Kline M.D. LAB BLOOD NON ADD-ON [facility] [place] [address] [place] [address], [facility] STMA [facility] [address] [place] [address] * Blood Gas without Coox, Venous (12/27/2023 10:30 AM CDT) pO2, Venous, B 47 Not applicable mm Hg 12/27/2023 10:38 AM CDT STMA pCO2, Venous, B 49 41 - 51 mm Hg 12/27/2023 10:38 AM CDT STMA pH, Venous, B 7.35 7.32 - 7.43 pH 024 10:38 AM CDT STMA Base Excess, Venous, B 1 Not applicable mmol/L 12/27/2023 10:38 AM CDT STMA HCO3, Venous, B 26 Not applicable mmol/L 12/27/2023 10:38 AM CDT STMA Sample Site, Venous, B Venipunct 12/27/2023 10:33 AM CDT STMA Blood (Blood, Venous) 12/27/2023 10:30 AM CDT 12/27/2023 10:33 AM CDT Pedro Pablo Kline M.D. LAB BLOOD NON ADD-ON [facility] [place] [address] [place] [address] * Lactate (12/27/2023 10:29 AM CDT) Pathologist [facility] Lactate, P 0.6 0.5 - 2.2 mmol/L 12/27/2023 10:47 AM CDT STMA Blood (Blood, Venous) 12/27/2023 10:29 AM CDT 12/27/2023 10:33 AM CDT Pedro Pablo Kline M.D. LAB BLOOD NON ADD-ON Performing Organization Address City/[facility]/ZIP Co de Phone Number [facility] [place] [address] [place] [address] * Patient Status (12/27/2023 1:34 AM CDT) [facility] O2 Flow 2.0 L/min 12/27/2023 1:38 AM CDT STMA Device NC 12/27/2023 1:38 AM CDT STMA Spont. breaths/min 13 12/27/2023 1:38 AM CDT [facility] Blood 12/27/2023 1:34 AM CDT 12/27/2023 1:38 AM CDT Adia Samuel M.D. LAB BLOOD NON AD D-ON Performing Organization Address City/[facility]/ZIP Co de Phone Number [facility] [place] [address] [place], [place] [address] [place] [address] 200 [place] [address] * (ABNORMAL) Blood Gas without Coox, Venous (12/27/2023 1:34 AM CDT) Pathologist [facility] pO2, Venous, B 41 Not applicable mm Hg 12/27/2023 1:40 AM CDT STMA pCO2, Venous, B 54(H) 41 - 51 mm Hg 12/27/2023 1:40 AM CDT STMA pH, Venous, B 7.30(L) 7.32 - 7.43 pH 024 1:40 AM CDT STMA Base Excess, Venous, B 0 Not applicable mmol/L 12/27/2023 1:40 AM CDT STMA HCO3, Venous, B 27 Not applicable mmol/L 12/27/2023 1:40 AM CDT STMA Sample Site, Venous, B Venipunct 12/27/2023 1:38 AM CDT STMA Blood (Blood, Venous) 12/27/2023 1:34 AM CDT 12/27/2023 1:38 AM CDT Adia Samuel M.D. LAB BLOOD NON AD D-ON Performing Organization Address [facility] Co de Phone Number [facility] [place] [address] [place] [address], [facility] [address] * (ABNORMAL) Creatinine with Estimated GFR (12/27/2023 1:34 AM CDT) Creatinine 0.39(L) 0.74 - 1.35 mg/dL 12/27/2023 2:40 AM CDT DTL Estimated GFR (eGFR) >90 >=60 mL/min/BSA 12/27/2023 2:40 AM CDT DTL Comment: Estimated GFR calculated using the 2020 CKD_EPI creatinine equation. Blood (Blood, Venous) 12/27/2023 1:34 AM CDT 12/27/2023 2:01 AM CDT Fatmata Grier M.D. LAB BLOOD ADD-ON Performing Organization Address City/[facility]/ZIP Co de Phone Number [facility] [place] [address] [place] [address], [facility] [place] [address] * (ABNORMAL) CBC with Differential, Blood (12/27/2023 1:34 AM CDT) Hemoglobin 11.3(L) 13.2 - 16.6 g/dL 12/27/2023 1:56 AM CDT DTL Hematocrit 32.9(L) 38.3 - 48.6 % 12/27/2023 1:56 AM CDT DTL Erythrocytes 3.21(L) 4.35 - 5.65 x10(12)/L 12/27/2023 1:56 AM CDT DTL MCV 102.5(H) 78.2 - 97.9 fL 12/27/2023 1:56 AM CDT DTL RBC Distrib Width 13.1 11.8 - 14.5 % 12/27/2023 1:56 AM CDT DTL Platelet Count 170 135 - 317 x10(9)/L 12/27/2023 1:56 AM CDT DTL Leukocytes 10.3(H) 3.4 - 9.6 x10(9)/L 12/27/2023 1:56 AM CDT DTL Neutrophils 8.60(H) 1.56 - 6.45 x10(9)/L 12/27/2023 1:56 AM CDT DHPM Lymphocytes 1.12 0.95 - 3.07 x10(9)/L 12/27/2023 1:56 AM CDT DTL Monocytes 0.42 0.26 - 0.81 x10(9)/L 12/27/2023 1:56 AM CDT DTL Eosinophils 0.11 0.03 - 0.48 x10(9)/L 12/27/2023 1:56 AM CDT DTL Basophils <0.03 0.01 - 0.08 x10(9)/L 12/27/2023 1:56 AM CDT DTL Blood (Blood, Venous) 12/27/2023 1:34 AM CDT 12/27/2023 1:47 AM CDT Fatmata Grier M.D. LAB BLOOD ADD-ON [facility] [place] [address] [place] [address], [facility] DTL [facility] [address] [place] [address] DHPM [facility] [address] [place] [address] * (ABNORMAL) Comprehensive Metabolic Panel (12/27/2023 1:34 AM CDT) [facility] Potassium, S 4.4 3.6 - 5.2 mmol/L 12/27/2023 2:17 AM CDT DTL Sodium, S 139 135 - 145 mmol/L 12/27/2023 2:17 AM CDT DTL Chloride, S 105 98 - 107 mmol/L 12/27/2023 2:17 AM CDT DTL Bicarbonate, S 24 22 - 29 mmol/L 12/27/2023 2:17 AM CDT DTL Anion Gap 10 7 - 15 12/27/2023 2:17 AM CDT DTL BUN (Blood Urea Nitrogen), S 5(L) 8 - 24 mg/dL 12/27/2023 2:17 AM CDT DTL Creatinine 0.40(L) 0.74 - 1.35 mg/dL 12/27/2023 2:17 AM CDT DTL Estimated GFR (eGFR) >90 >=60 mL/min/BS A 12/27/2023 2:17 AM CDT DTL Comment: Estimated GFR calculated using the 2020 CKD_EPI creatinine equation. Calcium, Total, S 8.0(L) 8.6 - 10.0 mg/dL 12/27/2023 2:17 AM CDT DTL Glucose, S 90 70 - 140 mg/dL 12/27/2023 2:17 AM CDT DTL Protein, Total, S 6.4 6.3 - 7.9 g/dL 12/27/2023 2:17 AM CDT DTL Albumin, S 4.0 3.5 - 5.0 g/dL 12/27/2023 2:17 AM CDT DTL Aspartate Aminotransferase (AST), S 53(H) 8 - 48 U/L 12/27/2023 2:17 AM CDT DTL Alkaline Phosphatase, S 117 40 - 129 U/L 12/27/2023 2:17 AM CDT DTL Alanine Aminotransferase (ALT), S 32 7 - 55 U/L 12/27/2023 2:17 AM CDT DTL Bilirubin, Total, S 0.4 0.0 - 1.2 mg/dL 12/27/2023 2:17 AM CDT DTL Blood (Blood, Venous) 12/27/2023 1:34 AM CDT 12/27/2023 2:01 AM CDT Fatmata Grier M.D. LAB BLOOD ADD-ON Performing Organization Address City/[facility]/ZIP Co de Phone Number [facility] [place] [address] [place] [address], [facility] DTL [facility] [address] [place] [address] * Lactate, POCT (12/26/2023 11:54 PM CDT) [facility] Lactate, POCT 1.12 0.50 - 2.20 mmol/L 12/27/2023 12:10 AM CDT PCLX Sample Site, POCT Venstick 12/27/2023 12:10 AM CDT PCLX Blood 12/26/2023 11:5 4 PM CDT 12/27/2023 12:10 AM CDT Unknown Provider LAB POCT ORDERABLES - DEVICE Performing Organization Address [facility] de Phone Number POC [facility] [address] [place] [address], [facility] PCLX [facility] POC [address] [place] [address] * (ABNORMAL) Venous Blood Gas and Electrolytes CG8+, POCT (12/26/2023 11:50 PM CDT) Pathologist [facility] Sample Site, POCT Venstick 12/27/2023 12:10 AM CDT PCSM Comment: ----ADDITIONAL INFORMATION---- Performed at the Point of Care pH, Venous, POCT, B 7.30(L) 7.32 - 7.43 12/27/2023 12:10 AM CDT PCSM Comment: ----ADDITIONAL INFORMATION---- Performed at the Point of Care pCO2, Venous, POCT, B 58(H) 41 - 51 mm Hg 12/27/2023 12:10 AM CDT PCSM Comment: ----ADDITIONAL INFORMATION---- Performed at the Point of Care pO2, Venous, POCT, B 32 Not Applicable mm Hg 12/27/2023 12:10 AM CDT PCSM Comment: ----ADDITIONAL INFORMATION---- Performed at the Point of Care Base Excess, Venous, POCT, B 2 Not Applicable mmol/L 12/27/2023 12:10 AM CDT PCSM Comment: ----ADDITIONAL INFORMATION---- Performed at the Point of Care HCO3, Venous, POCT, B 28 Not Applicable mmol/L 12/27/2023 12:10 AM CDT PCSM Comment: ----ADDITIONAL INFORMATION---- Performed at the Point of Care Sodium, POCT, B 138 135 - 145 mmol/L 12/27/2023 12:10 AM CDT PCSM Comment: ----ADDITIONAL INFORMATION---- Performed at the Point of Care Potassium, POCT, B 4.5 3.6 - 5.2 mmol/L 12/27/2023 12:10 AM CDT PCSM Comment: ----ADDITIONAL INFORMATION---- Performed at the Point of Care Calcium, Ionized, POCT, B 5.00 4.65 - 5.30 mg/dL 12/27/2023 12:10 AM CDT PCSM Comment: ----ADDITIONAL INFORMATION---- Performed at the Point of Care Glucose, POCT, B 89 70 - 140 mg/dL 12/27/2023 12:10 AM CDT PCSM Comment: ----ADDITIONAL INFORMATION---- Performed at the Point of Care Hematocrit, POCT, B 37.0(L) 38.3 - 48.6 % 12/27/2023 12:10 AM CDT PCSM Comment: ----ADDITIONAL INFORMATION---- Performed at the Point of Care Blood 12/26/2023 11:5 0 PM CDT 12/27/2023 12:10 AM CDT Unknown Provider LAB POCT ORDERABLES - DEVICE POC [facility] [address] [place] [address], [facility] PCSM [facility] POC [address] [place] [address] * Feeding Tube Replacement (12/26/2023 9:36 PM [...] Lozano M.D. PROCEDURE/MINOR WADE GICAL ORDERABLES * (ABNORMAL) Lactate (12/26/2023 9:01 PM CDT) Lactate, P 2.7(H) 0.5 - 2.2 mmol/L 12/26/2023 9:19 PM CDT STMA Blood 12/26/2023 9:01 PM CDT 12/26/2023 9:05 PM CDT Jamia Lozano M.D. LAB BLOOD NON ADD-O N [facility] [place] [address] [place] [address], [facility] [address] [place] [address] * Influenza A/B, SARS CoV-2, PCR, Rapid [...] at the following links: For Healthcare Providers: https://www.fda.gov/media/457782/download For Patients: https://www.fda.gov/media/170485/download Infl A/B, SARS CoV-2, PCR, Source Swab, Nasopharynx 12/26/2023 7:56 PM CDT STMA Swab (Nasopharynx) 12/26/2023 7:50 PM CDT 12/26/2023 7:56 PM CDT Jamia Lozano M.D. LAB MICROBIOLOGY - GENERAL ORDERABLES [facility] [place] [address] [place] [address], [facility] [address] [place] [address] * Bacterial Culture, Aerobic + Susceptibility, Urine (12/26/2023 7:37 PM CDT) Urine Culture No growth after 1 day of incubation. 12/28/2023 7:28 AM CDT DTL Urine (Urine, Midstream) 12/26/2023 7:37 PM CDT 12/26/2023 8:36 PM CDT Comment:Specimen Source Site : Urine Jamia Lozano M.D. LAB MICROBIOLOGY - GENERAL ORDERABLES [facility] [address] [place] [address], [place] DTL [facility] [address] [place] [address] * CT Abdomen Pelvis with IV Contrast [...] Jamia Lozano M.D. LAB URINE ORDERABLE S [facility] [address] [place] [address], [facility] [address] [place] [address] * pH, Urine (12/26/2023 7:07 PM CDT) pH, U 7.0 4.5 - 8.0 12/26/2023 7:5 0 PM CDT DTL Urine 12/26/2023 7:07 PM CDT 12/26/2023 7:37 PM CDT Jamia Lozano M.D. LAB URINE ORDERABLE S [facility] [place] [address] [place] [address], [facility] [address] [place] [address] * Osmolality, Urine (12/26/2023 7:07 PM CDT) Osmolality, U 237 150 - 1150 mOsm/kg 12/26/2023 7:50 PM CDT DTL Urine 12/26/2023 7:07 PM CDT 12/26/2023 7:37 PM CDT Jamia Lozano M.D. LAB URINE ORDERABLE S Performing Organization Address [facility]/ZIP Co de Phone Number [facility] [place] [address] [place] [address], [facility] [address] [place] [address] * Microscopic Automated (12/26/2023 7:07 PM CDT) Microscopy Normal 12/26/2023 7:54 PM CDT DTL RBC None Seen <3 /hpf 12/26/2023 7:54 PM CDT DTL WBC None Seen /hpf 12/26/2023 7:54 PM CDT DTL Comment: ----REFERENCE VALUE---- <4 ??(Males) <11 (Females) Urine 12/26/2023 7:07 PM CDT 12/26/2023 7:37 PM CDT Jamia Lozano M.D. LAB URINE ORDERABLE S Performing Organization Address City/[facility]/ZIP Co de Phone Number [facility] [place] [address] [place], [place] [phone] [place] [address] [address] [place] [address] * (ABNORMAL) Urinalysis, with Microscopic: Urine, Catheter [...] Jamia Lozano M.D. LAB URINE ORDERABLE S [facility] [place] [address] [place] [address], [address] [address] * Dipstick, POCT, Urine (12/26/2023 7:06 PM CDT) Glucose, POCT, U Negative Negative mg/dL 12/26/2023 7:08 PM CDT PCED Ketone, POCT, U Negative Negative mg/dL 12/26/2023 7:08 PM CDT PCED Specific [place], POCT, U 1.015 1.005 - 1.030 12/26/2023 [...] LAB POCT ORDERABLES - DEVICE POC R[facility] [address] [place] [address], [place] PCED [facility] POC [address] [place] [address] * DX Chest Portable 1 View (12/26/2023 [...] ??DX CHEST PORTABLE 1 VIEW Procedure Note Ray, Say Trinidad M.D. - 12/26/2023 EXAM: DX CHEST PORTABLE 1 VIEW IMPRESSION: Since 03/18/2023, decreased but persistent patchy pulmonary opacitiesthroughout both lungs. Otherwise no significant change. Shallowinspiration with accentuation of the cardiac silhouette and pulmonaryvasculature. No pleural effusion or pneumothorax. Jamia [facility] PROCEDURES * Bacteria / Christopher Culture, Blood #2 (12/26/2023 6:06 PM CDT) Bacteria/Isabell da Culture, Blood No growth after 5 days of incubation. 12/31/2023 7:02 PM CDT DTL Blood (Blood, Peripheral Draw) 12/26/2023 6:06 PM CDT 12/26/2023 6:17 PM CDT Comment:Specimen Source Site : Blood Narrative [facility] [place] - 12/31/2023 7:02 PM CDT Received Bactec aerobic and Bactec anaerobic bottles Jamia Lozano M.D. LAB MICROBIOLOGY - GENERAL ORDERABLES Performing Organization Address City/[facility]/ZIP Co de Phone Number [facility] [place] [address] [place] [address], [facility] [address] [place] [address] * Bacteria / Christopher Culture, Blood #1 (12/26/2023 5:50 PM CDT) Bacteria/Isabell da Culture, Blood No growth after 5 days of incubation. 12/31/2023 7:02 PM CDT DTL Blood (Blood, Peripheral Draw) 12/26/2023 5:50 PM CDT 12/26/2023 6:17 PM CDT Comment:Specimen Source Site : Blood Narrative [facility] [place] - 12/31/2023 7:02 PM CDT Received Bactec aerobic and Bactec anaerobic bottles Jamia Lozano M.D. LAB MICROBIOLOGY - GENERAL ORDERABLES Performing Organization Address City/[facility] Co de Phone Number [facility] [place] [address] [place] [address], [facility] [address] [place] [address] * (ABNORMAL) Hepatic Function Panel (12/26/2023 5:49 PM CDT) Bilirubin, Total, S 1.2 0.0 - 1.2 mg/dL 12/26/2023 6:49 PM CDT DTL Bilirubin, Direct, S 0.7(H) 0.0 - 0.3 mg/dL 12/26/2023 6:49 PM CDT DTL Aspartate Aminotransferase (AST), S 68(H) 8 - 48 U/L 12/26/2023 6:49 PM CDT DTL Alanine Aminotransferase (ALT), S 37 7 - 55 U/L 12/26/2023 6:49 PM CDT DTL Alkaline Phosphatase, S 131(H) 40 - 129 U/L 12/26/2023 6:49 PM CDT DTL Albumin, S 4.3 3.5 - 5.0 g/dL 12/26/2023 6:49 PM CDT DTL Protein, Total, S 6.9 6.3 - 7.9 g/dL 12/26/2023 6:49 PM CDT DTL Blood (Blood, Venous) 12/26/2023 5:49 PM CDT 12/26/2023 6:34 PM CDT Jamia Lozano M.D. LAB BLOOD ADD-ON Performing Organization Address [facility]/ZIP Co de Phone Number [address] [place] [address] * (ABNORMAL) Lipase (12/26/2023 5:49 PM CDT) Lipase, S 8(L) 13 - 60 U/L 12/26/2023 6: 49 PM CDT DTL Blood (Blood, Venous) 12/26/2023 5:49 PM CDT 12/26/2023 6:34 PM CDT Jamia Lozano M.D. LAB BLOOD ADD-ON Performing Organization Address City/[facility]/ZIP Co de Phone Number [facility] [place] [address] [place] [address] * (ABNORMAL) Lactate for Sepsis with Reflex (12/26/2023 5:49 PM CDT) Lactate, P 2.3(H) 0.5 - 2.2 mmol/L 12/26/2023 6:25 PM CDT STMA Blood (Blood, Venous) 12/26/2023 5:49 PM CDT 12/26/2023 6:12 PM CDT Jamia Lozano M.D. LAB BLOOD NON ADD-O N Performing Organization Address [facility] Co de Phone Number [facility] [place] [address] [place] [address], [facility] [address] [place] [address] * (ABNORMAL) Prothrombin Time (PT) (12/26/2023 5:49 PM CDT) Prothrombin Time, P 12.8(H) 9.4 - 12.5 sec 12/26/2023 6:21 PM CDT STMA INR 1.2 0.9 - 1.1 12/26/2023 6:21 PM CDT STMA Comment: ----ADDITIONAL INFORMATION---- Standard intensity warfarin therapeutic range: 2.0 to 3.0 ?? High intensity warfarin therapeutic range: 2.5 to 3.5 Blood (Blood, Venous) 12/26/2023 5:49 PM CDT 12/26/2023 6:12 PM CDT Jamia Lozano M.D. LAB BLOOD ADD-ON Performing Organization Address [facility] de Phone Number [facility] [place] [address] [place] [address], [facility] [address] [place] [address] * (ABNORMAL) CBC with Differential, Blood (12/26/2023 5:49 PM CDT) Hemoglobin 12.2(L) 13.2 - 16.6 g/dL 12/26/2023 6:14 PM CDT STMA Hematocrit 35.9(L) 38.3 - 48.6 % 12/26/2023 6:14 PM CDT STMA Erythrocytes 3.54(L) 4.35 - 5.65 x10(12)/L 12/26/2023 6:14 PM CDT STMA MCV 101.4(H) 78.2 - 97.9 fL 12/26/2023 6:14 PM CDT STMA RBC Distrib Width 13.1 11.8 - 14.5 % 12/26/2023 6:14 PM CDT STMA Platelet Count 170 135 - 317 x10(9)/L 12/26/2023 6:14 PM CDT STMA Leukocytes 9.4 3.4 - 9.6 x10(9)/L 12/26/2023 6:14 PM CDT STMA Neutrophils 8.04(H) 1.56 - 6.45 x10(9)/L 12/26/2023 6:14 PM CDT DHPM Lymphocytes 0.85(L) 0.95 - 3.07 x10(9)/L 12/26/2023 6:14 PM CDT STMA Monocytes 0.38 0.26 - 0.81 x10(9)/L 12/26/2023 6:14 PM CDT STMA Eosinophils 0.09 0.03 - 0.48 x10(9)/L 12/26/2023 6:14 PM CDT STMA Basophils 0.03 0.01 - 0.08 x10(9)/L 12/26/2023 6:14 PM CDT STMA Blood (Blood, Venous) 12/26/2023 5:49 PM CDT 12/26/2023 6:12 PM CDT Jamia Lozano M.D. LAB BLOOD ADD-ON [facility] [place] [address] [place] [address], [facility] STMA [facility] [address] [place], [place] [address] [place] [address] [place] [address] * (ABNORMAL) Basic Metabolic Panel (12/26/2023 5:49 PM CDT) [facility] Potassium, P 4.4 3.6 - 5.2 mmol/L 12/26/2023 6:31 PM CDT STMA Sodium, P 131(L) 135 - 145 mmol/L 12/26/2023 6:31 PM CDT STMA Chloride, P 92(L) 98 - 107 mmol/L 12/26/2023 6:31 PM CDT STMA Bicarbonate, P 28 22 - 29 mmol/L 12/26/2023 6:31 PM CDT STMA Anion Gap, P 11 7 - 15 12/26/2023 6:31 PM CDT STMA BUN (Blood Urea Nitrogen), P 8 8 - 24 mg/dL 12/26/2023 6:31 PM CDT STMA Creatinine 0.40(L) 0.74 - 1.35 mg/dL 12/26/2023 6:31 PM CDT STMA Estimated GFR (eGFR) >90 >=60 mL/min/BSA 12/26/2023 6:31 PM CDT STMA Comment: Estimated GFR calculated using the 2020 CKD_EPI creatinine equation. Calcium, Total, P 9.0 8.6 - 10.0 mg/dL 12/26/2023 6:31 PM CDT STMA Glucose, P 103 70 - 140 mg/dL 12/26/2023 6:31 PM CDT STMA Blood (Blood, Venous) 12/26/2023 5:49 PM CDT 12/26/2023 6:12 PM CDT Jamia Lozano M.D. LAB BLOOD ADD-ON [address] [address], [facility] [address] [place] [address] * Vitamin B12 Assay (12/26/2023 5:48 PM CDT) Pathologist [facility] Vitamin B12 Assay, S [id number] 180 - [...] Pedro Pablo Kline M.D. LAB BLOOD ADD-ON [facility] [place] [address] [place] [address] * Cystatin C with Estimated GFR (12/26/2023 5:48 PM CDT) eGFR by Cystatin C 116 >60 mL/min/BSA [...] CDT Adia Samuel M.D. LAB BLOOD ADD-ON [facility] [place] [address] [place], [place] [address] [address] [place] [address] * (ABNORMAL) Lactate (12/26/2023 4:33 PM CDT) Lactate, P 2.6(H) 0.5 - 2.2 mmol/L 12/26/2023 5:02 PM CDT STMA Blood (Blood, Venous) 12/26/2023 4:33 PM CDT 12/26/2023 4:47 PM CDT Jamia Lozano M.D. LAB BLOOD NON ADD-O N Performing Organization Address City/[facility]/ZIP Co de Phone Number [facility] [place] [address] [place] [address], [facility] STMA [facility] [address] [place] [address] * Glucose, POCT (12/26/2023 4:32 PM CDT) [facility] Glucose, POCT, B 101 70 - 140 mg/dL 12/26/2023 4:55 PM CDT PCLX Site Venstick 12/26/2023 4:55 PM CDT PCLX Blood 12/26/2023 4:32 PM CDT 12/26/2023 4:56 PM CDT Unknown Provider LAB POCT ORDERABLES- MANUAL Performing Organization Address City/[facility] Co de Phone Number POC [facility] [address] [place] [address], [facility] PCLX 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) Apnea Sleep Obstructive Anemia Macrocytic Hyponatremia Change Mental Status documented in this encounter Administered Medications Inactive Administered Medications - up to 3 most recent administrations Medication Order MAR Action Action Date Dose Rate Site acetaminophen tablet 1,000 mg (TYLENOL) 1,000 mg, oral, Every 8 hours PRN, mild pain or score 1-3 of 10, moderate pain or score 4-6 of 10, severe pain or score 7-10 of 10, fever, Starting on Wed12/28/23 at 0724 Given 12/29/2023 8:38 AM CDT 1,000 mg Given 12/28/2023 8:13 AM CDT 1,000 mg azelastine 137 mcg/spray (0.1 %) nasal spray 1 spray (ASTELIN) 1 spray, each nostril, Daily, First dose on Wed12/27/23 at 0900 Given 12/30/2023 8:54 AM CDT 1 spray Given 12/29/2023 9:13 AM CDT 1 spray Given 12/28/2023 8:45 AM CDT 1 spray baclofen tablet 20 mg (LioresaL) 20 mg, gastric tube, 4 times daily, First dose on Wed12/27/23 at 0800 Given 12/30/2023 11:08 AM CDT 20 mg Given 12/30/2023 8:19 AM CDT 20 mg Given 12/29/2023 9:42 PM CDT 20 mg barium 40 % (w/v), 30% (w/w) paste 10 mL (VARIBAR PUDDING) 10 mL, oral, Once in imaging, contrast, Starting on Wed12/30/23 at 0923, For 1 dose Given 12/30/2023 9:24 AM CDT 10 mL barium 81 % (w/w) oral powder for suspension 6 g (VARIBAR THIN LIQUID) 6 g (15 mL), oral, Once in imaging, contrast, Starting on Wed12/30/23 at 0923, For 1 dose Given 12/30/2023 9:24 AM CDT 15 mL cannabidioL solution 200 mg (EPIDIOLEX) 200 mg, small bowel tube, Every morning, First dose on Wed12/27/23 at 0900 Given 12/27/2023 9:54 AM CDT 200 mg cannabidioL solution 200 mg (EPIDIOLEX) 200 mg, gastric tube, Once, On Wed12/27/23 at 1030, For 1 dose Given 12/27/2023 11:17 AM CDT 200 mg cannabidioL solution 400 mg (EPIDIOLEX) 400 mg, gastric tube, Every morning, First dose (after last modification) on Wed12/28/23 at 0900 Given 12/30/2023 8:19 AM CDT 400 mg Given 12/29/2023 9:14 AM CDT 400 mg Given 12/28/2023 9:38 AM CDT 400 mg cannabidioL solution 600 mg (EPIDIOLEX) 600 mg, gastric tube, Daily at bedtime, First dose (after last modification) on Wed12/27/23 at 2100 Given 12/29/2023 9:44 PM CDT 600 mg Given 12/28/2023 8:28 PM CDT 600 mg Given 12/27/2023 8:13 PM CDT 600 mg cefTRIAXone in dextrose (iso osm) IVPB 2 g (ROCEPHIN) 2 g, intravenous, at 200 mL/hr, Administer over 15 Minutes, Every 24 hours, First dose (after last modification) on Wed12/27/23 at 2000, For 4 doses, Drug Monitoring Program: Pharmacist to adjust medication dosing based on indication and drug clearance factors., Indications: Respiratory tract infection, community acquired New Bag 12/29/2023 8:17 PM CDT 2 g 200 mL/hr New Bag 12/28/2023 8:28 PM CDT 2 g 200 mL/hr New Bag 12/27/2023 8:11 PM CDT 2 g 200 mL/hr cefTRIAXone in dextrose (iso osm) IVPB 2 g (ROCEPHIN) 2 g, intravenous, at 200 mL/hr, Administer over 15 Minutes, Once, On [facility] 12/30/23 at 1200, For 1 dose, Drug Monitoring Program: Pharmacist to adjust medication dosing based on indication and drug clearance factors., Indications: Respiratory tract infection, community acquired New Bag 12/30/2023 11:00 AM CDT 2 g 200 mL/hr cefTRIAXone injection 2 g (ROCEPHIN) 2 g, intravenous, Once, On [place] 12/26/23 at 2013, For 1 dose, [place] IV push over 3 minutes., Drug Monitoring Program: Pharmacist to adjust medication dosing based on indication and drug clearance factors., Indications: Respiratory tract infection, community acquired Given 12/26/2023 8:20 PM CDT 2 g cloBAZam tablet 10 mg (ONFI) 10 mg, gastric tube, Daily at bedtime, First dose (after last modification) on Wed12/27/23 at 2100 Given 12/29/2023 9:43 PM CDT 10 mg Given 12/28/2023 8:23 PM CDT 10 mg Given 12/27/2023 8:13 PM CDT 10 mg cloBAZam tablet 15 mg (ONFI) 15 mg, gastric tube, Every morning, First dose on Wed12/27/23 at 0900 Given 12/30/2023 8:18 AM CDT 15 mg Given 12/29/2023 8:37 AM CDT 15 mg Given 12/28/2023 8:13 AM CDT 15 mg diazePAM tablet 10 mg (VALIUM) 10 mg, gastric tube, 3 times daily PRN, seizures, Starting on Wed12/27/23 at 1023 doxycycline 100 mg in NaCl 0.9% IVPB (VIBRAMYCIN) 100 mg, intravenous, at 100 mL/hr, Administer over 60 Minutes, Every 12 hours, First dose on Wed12/27/23 at 0800, For 8 doses, Mini-Bag Plus bag, Indications: Respiratory tract infection, community acquired New Bag 12/28/2023 8:48 AM CDT 100 mg 1 00 mL/hr New Bag 12/27/2023 8:36 PM CDT 100 mg 100 mL/hr New Bag 12/27/2023 7:55 AM CDT 100 mg 100 mL/hr doxycycline in NaCl 0.9% 100 ML IVPB (Mini-Bag Plus) 100 mg (VIBRAMYCIN) 100 mg, intravenous, at 100 mL/hr, Administer over 60 Minutes, Once, On Wed12/26/23 at 2011, For 1 dose, Mini-Bag Plus bag, Indications: Respiratory tract infection, community acquired New Bag 12/26/2023 8:20 PM CDT 100 mg 100 mL/hr doxycycline monohydrate suspension 100 mg (VIBRAMYCIN) 100 mg, gastric tube, 2 times daily before breakfast and dinner, First dose on Wed12/28/23 at 1600, For 6 doses, Administer 2 hours before or 6 hours after taking magnesium, aluminum (antacids, laxatives) or calcium and iron supplements (multivitamins). Ensure patient remains upright for 30 minutes post-dose., Indications: Respiratory tract infection, community acquired Given 12/28/2023 4:23 PM CDT 100 mg doxycycline monohydrate tablet 100 mg (ADOXA) 100 mg, gastric tube, 2 times daily before breakfast and dinner, First dose (after last modification) on Wed12/29/23 at 0700, For 5 doses, Administer 2 hours before or 6 hours after taking magnesium, aluminum (antacids, laxatives) or calcium and iron supplements (multivitamins). Ensure patient remains upright for 30 minutes post-dose., Indications: Respiratory tract infection, community acquired Given 12/30/2023 6:09 AM CDT 100 mg Given 12/29/2023 4:51 PM CDT 100 mg Given 12/29/2023 6:19 AM CDT 100 mg enoxaparin injection 40 mg (LOVENOX) 40 mg, subcutaneous, Every 24 hours scheduled, First dose on Wed12/26/23 at 2330, For 2 doses Given 12/28/2023 8:12 AM CDT 40 mg Left Lower Abdomen felbamate suspension 1,200 mg (FELBATOL) 1,200 mg, gastric tube, 2 times daily, First dose (after last modification) on Wed12/27/23 at 1400 Given 12/29/2023 9:44 PM CDT 1,200 mg Given 12/29/2023 2:55 PM CDT 1,200 mg Given 12/28/2023 8:27 PM CDT 1,200 mg felbamate suspension 1,500 mg (FELBATOL) 1,500 mg, oral, Daily before breakfast, First dose on Wed12/27/23 at 0700 Given 12/27/2023 6:11 AM CDT 1,500 mg felbamate suspension 1,500 mg (FELBATOL) 1,500 mg, gastric tube, Daily before breakfast, First dose (after last modification) on Wed12/28/23 at 0700 Given 12/30/2023 6:09 AM CDT 1,500 m g Given 12/29/2023 6:19 AM CDT 1,500 mg Given 12/28/2023 6:17 AM CDT 1,500 mg fentaNYL injection 75 mcg (SUBLIMAZE) 75 mcg, intravenous, Every 1 hour PRN, severe pain or score 7-10 of 10, Starting on Wed12/26/23 at 1745 Given 12/26/2023 6:56 PM CDT 75 mcg fluticasone propionate 50 mcg/actuation nasal spray 2 spray (FLONASE) 2 spray, each nostril, Daily, First dose on Wed12/27/23 at 0900, fluticasone intranasal 50 mcg/actuation was interchanged for mometasone intranasal Given 12/30/2023 8:53 AM CDT 2 sprays Given 12/29/2023 9:13 AM CDT 2 sprays Given 12/28/2023 8:43 AM CDT 2 sprays hydrocortisone 0.5 % cream 1 Application (INSTACORT) 1 Application, topical, 2 times daily, First dose on Wed12/27/23 at 0900 Given 12/30/2023 8:49 AM CDT 1 Applicat ion Given 12/29/2023 10:08 PM CDT 1 Application Given 12/29/2023 9:17 AM CDT 1 Application HYDROmorphone tablet 2 mg (DILAUDID) 2 mg, small bowel tube, Every 12 hours PRN, severe pain or score 7-10 of 10, Starting on Wed12/28/23 at 1131 Given 12/28/2023 11:58 AM CDT 2 mg iohexoL 300 mg iodine/mL solution 1-200 mL (OMNIPAQUE) 1-200 mL, intravenous, Once in imaging, contrast, Starting on Wed12/26/23 at 1905, For 1 dose, Imaging Protocol Orders, Dose per Radiant Medication Guidelines Given 12/26/2023 7:24 PM CDT 100 mL lamoTRIgine tablet 300 mg (LaMICtaL) 300 mg, gastric tube, Daily at bedtime, First dose (after last modification) on Wed12/27/23 at 2100 Given 12/29/2023 9:43 PM CDT 300 mg Given 12/28/2023 8:23 PM CDT 300 mg Given 12/27/2023 8:14 PM CDT 300 mg lamoTRIgine tablet 350 mg (LaMICtaL) 350 mg, oral, 2 times daily, First dose on Wed12/27/23 at 0900 Given 12/27/2023 9:54 AM CDT 350 mg lamoTRIgine tablet 350 mg (LaMICtaL) 350 mg, gastric tube, 2 times daily, First dose (after last modification) on Wed12/27/23 at 1400 Given 12/30/2023 8:20 AM CDT 350 mg Given 12/29/2023 2:55 PM CDT 350 mg Given 12/29/2023 8:38 AM CDT 350 mg levETIRAcetam solution 1,500 mg (KEPPRA) 1,500 mg, gastric tube, Every morning, First dose on Wed12/27/23 at 0900 Given 12/30/2023 8:18 AM CDT 1,500 mg Given 12/29/2023 9:15 AM CDT 1,500 mg Given 12/28/2023 8:14 AM CDT 1,500 mg levETIRAcetam solution 1,600 mg (KEPPRA) 1,600 mg, gastric tube, Daily at bedtime, First dose on Wed12/27/23 at 2100 Given 12/29/2023 9:44 PM CDT 1,600 mg Given 12/28/2023 8:26 PM CDT 1,600 mg Given 12/27/2023 8:15 PM CDT 1,600 mg loratadine tablet 10 mg (CLARITIN) 10 mg, oral, Daily, First dose on Wed12/27/23 at 0900, loratadine 10 mg oral daily was interchanged for levocetirizine 5 mg oral daily Given 12/27/2023 9:49 AM CDT 10 mg loratadine tablet 10 mg (CLARITIN) 10 mg, gastric tube, Daily, First dose (after last modification) on Wed12/28/23 at 0900, loratadine 10 mg oral daily was interchanged for levocetirizine 5 mg oral daily Given 12/30/2023 8:20 AM CDT 10 mg Given 12/29/2023 8:38 AM CDT 10 mg Given 12/28/2023 8:13 AM CDT 10 mg LORazepam injection 2 mg (ATIVAN) 2 mg, intravenous, Every 1 hour PRN, seizure, Starting on Wed12/26/23 at 1712, Shortage on injection, use oral when possible For intravenous use, dilute with equal volume of 0.9% NS xsnljdibydwa-bzpj-NA-Ca-minerals 400 mcg (folic acid) tablet 1 tablet (THERAPEUTIC-M) 1 tablet, gastric tube, Daily, First dose on Wed12/27/23 at 0900 Given 12/30/2023 8:20 AM CDT 1 tablet Given 12/29/2023 8:38 AM CDT 1 tablet Given 12/28/2023 8:13 AM CDT 1 tablet NaCl 0.9 % bolus 1,000 mL 1,000 mL, intravenous, at 1,000 mL/hr, Administer over 1 Hours, Once, On Wed12/26/23 at 1626, For 1 dose New Bag 12/26/2023 5:55 PM CDT 1,000 mL 1000 mL/hr NaCl 0.9 % bolus 1,000 mL 1,000 mL, intravenous, at 1,000 mL/hr, Administer over 1 Hours, Once, On Wed12/26/23 at 2012, For 1 dose New Bag 12/26/2023 8:18 PM CDT 1,000 mL 1000 mL/hr naloxone 0.4 mg/mL injection - ADS Override Pull Starting on Wed12/28/23 at 1507, For 1 dose, Created by cabinet override naloxone 10 mcg/mL in NaCl 0.9% 500 mL infusion (NARCAN) 0.3 mg/hr (30 mL/hr), intravenous, Continuous, Starting on Wed12/28/23 at 1715, For 6 hours, Protect from light. Rate/Dose Verify 12/28/2023 10:00 PM CDT 0.3 mg/hr 30 mL/hr Rate/Dose Verify 12/28/2023 9:00 PM CDT 0.3 mg/hr 30 mL/h r Rate/Dose Verify 12/28/2023 8:00 PM CDT 0.3 mg/hr 30 mL/h r naloxone injection 0.4 mg (NARCAN) 0.4 mg, intravenous, Once, On Wed12/28/23 at 1545, For 1 dose Given 12/28/2023 3:20 PM CDT 0.4 mg naloxone injection 0.4 mg (NARCAN) 0.4 mg, intravenous, As needed, reversal, Starting on Wed12/28/23 at 1524 Given 12/28/2023 4:43 PM CDT 0.4 mg Given 12/28/2023 4:27 PM CDT 0.4 mg Given 12/28/2023 3:51 PM CDT 0.4 mg nystatin 100,000 unit/gram cream 1 Application (MYCOSTATIN) 1 Application, topical, 2 times daily, First dose on Wed12/27/23 at 0900 Given 12/30/2023 8:50 AM CDT 1 Applicat ion Given 12/29/2023 10:08 PM CDT 1 Application Given 12/29/2023 9:17 AM CDT 1 Application nystatin 100,000 unit/gram powder 1 Application (NYSTOP) 1 Application, topical, 3 times daily, First dose on Wed12/27/23 at 0900 Given 12/30/2023 8:50 AM CDT 1 Applicat ion Given 12/29/2023 10:08 PM CDT 1 Application Given 12/29/2023 2:55 PM CDT 1 Application polyethylene glycol powder packet 17 g (MIRALAX) 17 g, oral, Daily, First dose (after last modification) on Wed12/28/23 at 0900, Dissolve in 240 mLs (8 ounces) of water prior to giving. Avoid mixing with starch-based thickened liquids. Given 12/28/2023 8:12 AM CDT 17 g rufinamide tablet 200 mg (BANZEL) 200 mg, gastric tube, Every morning, First dose on Wed12/27/23 at 0900 Given 12/30/2023 8:18 AM CDT 200 mg Given 12/29/2023 9:14 AM CDT 200 mg Given 12/28/2023 8:12 AM CDT 200 mg rufinamide tablet 400 mg (BANZEL) 400 mg, gastric tube, Daily at bedtime, First dose on Wed12/26/23 at 2330 Given 12/29/2023 9:45 PM CDT 400 mg Given 12/28/2023 8:23 PM CDT 400 mg Given 12/27/2023 8:15 PM CDT 400 mg sennosides tablet 8.6 mg (SENOKOT) 8.6 mg, oral, 2 times daily, First dose (after last modification) on Wed12/28/23 at 0900 Given 12/28/2023 8:13 AM CDT 8.6 mg sennosides tablet 8.6 mg (SENOKOT) 8.6 mg, gastric tube, 2 times daily, First dose (after last modification) on Wed12/28/23 at 2100 Given 12/29/2023 9:43 PM CDT 8.6 mg Given 12/29/2023 8:38 AM CDT 8.6 mg Given 12/28/2023 8:23 PM CDT 8.6 mg sodium chloride (PF) 0.9 % injection 1-100 mL 1-100 mL, intravenous, Once, On Wed12/26/23 at 1906, For 1 dose, Imaging Protocol Orders, Dose per Radiant Medication Guidelines Given 12/26/2023 7:25 PM CDT 50 mL sodium chloride 0.9 % injection 10 mL 10 mL, intravenous, As needed, line care, Starting on Wed12/26/23 at 1624, Peripheral Intravenous Catheter and Rapid Infusion Catheter, prior to blood sampling, post blood transfusion or post blood sampling sodium chloride 0.9 % injection 3 mL 3 mL, intravenous, As needed, line care, Starting on Wed12/26/23 at 1624, Prior to and following infusion and between multiple consecutive infusions: sodium chloride 0.9 % injection sodium chloride 0.9 % injection 3 mL 3 mL, intravenous, Every 12 hours scheduled, First dose on Wed12/26/23 at 2100, Peripheral Intravenous Catheter and Rapid Infusion Catheter, when no infusion to maintain patency Given 12/30/2023 8: 48 AM CDT 3 mL Given 12/29/2023 10:07 PM CDT 3 mL Given 12/28/2023 8:31 PM CDT 3 mL sodium chloride 0.9 % injection 3 mL 3 mL, intravenous, Every 12 hours scheduled, First dose on Wed12/27/23 at 0900, Peripheral Intravenous Catheter and Rapid Infusion Catheter, when no infusion to maintain patency Given 12/30/2023 8: 47 AM CDT 3 mL Given 12/29/2023 9:55 PM CDT 3 mL Given 12/29/2023 9:13 AM CDT 3 mL zinc oxide 20 % ointment 1 g 1 g, topical, 2 times daily, First dose on Wed12/27/23 at 0900, Apply to GT site for skin protectant. Given 12/30/2023 8:51 AM CDT 1 g Given 12/29/2023 10:22 PM CDT 1 g Given 12/29/2023 9:14 AM CDT 1 g documented in this encounter Active and Recently Administered Medications Times are shown in CDT. Scheduled Medication Order 12/28/2023 12/29/2023 12/30/2023 azelastine 137 mcg/spray (0.1 %) nasal spray 1 spray (ASTELIN) 1 spray, each nostril, Daily, First dose on Wed12/27/23 at 0900 0845 (Given - Provider: Jb Valencia RMayN.) 0913 (Given - Provider: Paris Magana RJuli, CCRN) 0854 (Given - Provider: Tong Gilbert R.N.) baclofen tablet 20 mg (LioresaL) 20 mg, gastric tube, 4 times daily, First dose on Wed12/27/23 at 0800 0813 (Given - Provider: Jb Valencia R.N.)1158 (Given - Provider: Jb Valencia R.N.)1623 (Given - Provider: Jb Valencia R.N.)202 (Given - Provider: Cosme Freire R.N., ZEFERINON) 0838 (Given - Provider: Paris Magana R.N., CCRN)1218 (Given - Provider: Paris Magana R.N., ZEFERINON)1651 (Given - Provider: Paris Magana R.N., ZEFERINON)2142 (Given - Provider: Amilcar Lin R.N.) 0819 (Given - Provider: Tong Gilbert R.N.)1108 (Given - Provider: Tong Gilbert R.N.) cannabidioL solution 400 mg (EPIDIOLEX) 400 mg, gastric tube, Every morning, First dose (after last modification) on Wed12/28/23 at 0900 0938 (Given - Provider: Jb Valencia R.N.) 0914 (Given - Provider: Paris Magana R.N., ZEFERINON) 0819 (Given - Provider: Tong Gilbert R.N.) cannabidioL solution 600 mg (EPIDIOLEX) 600 mg, gastric tube, Daily at bedtime, First dose (after last modification) on Wed12/27/23 at 2100 2027 (Given - Provider: Cosme Freire R.N., CCRN) 2143 (Given - Provider: Amilcar Lin R.N.) cefTRIAXone in dextrose (iso osm) IVPB 2 g (ROCEPHIN) (CANCELED) 2 g, intravenous, at 200 mL/hr, Administer over 15 Minutes, Every 24 hours, First dose (after last modification) on Wed12/27/23 at 2000, For 4 doses, Drug Monitoring Program: Pharmacist to adjust medication dosing based on indication and drug clearance factors., Indications: Respiratory tract infection, community acquired 2027 (New Bag - Provider: Cosme Freire R.N., CCRN) 2017 (New Bag - Provider: Amilcar Lin R.N.) cefTRIAXone in dextrose (iso osm) IVPB 2 g (ROCEPHIN) (COMPLETED) 2 g, intravenous, at 200 mL/hr, Administer over 15 Minutes, Once, On Wed12/30/23 at 1200, For 1 dose, Drug Monitoring Program: Pharmacist to adjust medication dosing based on indication and drug clearance factors., Indications: Respiratory tract infection, community acquired 1100 (New Bag - Provider: Tong Gilbert R.N.) cloBAZam tablet 10 mg (ONFI) 10 mg, gastric tube, Daily at bedtime, First dose (after last modification) on Wed12/27/23 at 2100 2022 (Given - Provider: Cosme Freire R.N., CCRN) 2142 (Given - Provider: Amilcar Lin R.N.) cloBAZam tablet 15 mg (ONFI) 15 mg, gastric tube, Every morning, First dose on Wed12/27/23 at 0900 0813 (Given - Provider: Jb Valencia R.N.) 0837 (Given - Provider: Paris Magana R.N., CCRN) 0818 (Given - Provider: Tong Gilbert R.N.) doxycycline 100 mg in NaCl 0.9% IVPB (VIBRAMYCIN) (CANCELED) 100 mg, intravenous, at 100 mL/hr, Administer over 60 Minutes, Every 12 hours, First dose on Wed12/27/23 at 0800, For 8 doses, Mini-Bag Plus bag, Indications: Respiratory tract infection, community acquired 0848 (New Bag - Provider: Jb Valencia R.N.) doxycycline monohydrate suspension 100 mg (VIBRAMYCIN) (CANCELED) 100 mg, gastric tube, 2 times daily before breakfast and dinner, First dose on Wed12/28/23 at 1600, For 6 doses, Administer 2 hours before or 6 hours after taking magnesium, aluminum (antacids, laxatives) or calcium and iron supplements (multivitamins). Ensure patient remains upright for 30 minutes post-dose., Indications: Respiratory tract infection, community acquired 1623 (Given - Provider: Jb Valencia R.N.) doxycycline monohydrate tablet 100 mg (ADOXA) 100 mg, gastric tube, 2 times daily before breakfast and dinner, First dose (after last modification) on Wed12/29/23 at 0700, For 5 doses, Administer 2 hours before or 6 hours after taking magnesium, aluminum (antacids, laxatives) or calcium and iron supplements (multivitamins). Ensure patient remains upright for 30 minutes post-dose., Indications: Respiratory tract infection, community acquired 0619 (Given - Provider: Cosme Freire R.N., ZEFERINON)1651 (Given - Provider: Paris Magana R.N., CCRN) 0609 (Given - Provider: Brittney Dsouza R.N.) enoxaparin injection 40 mg (LOVENOX) () 40 mg, subcutaneous, Every 24 hours scheduled, First dose on Wed12/26/23 at 2330, For 2 doses 0812 (Given - Provider: Jb Valencia R.N.) felbamate suspension 1,200 mg (FELBATOL) 1,200 mg, gastric tube, 2 times daily, First dose (after last modification) on Wed12/27/23 at 1400 1427 (Given - Provider: Jb Valencia R.N.)2027 (Given - Provider: Cosme Freire R.N., CCRN) 1455 (Given - Provider: Paris Magana R.N., CCRN)2144 (Given - Provider: Amilcar Lin R.N.) felbamate suspension 1,500 mg (FELBATOL) 1,500 mg, gastric tube, Daily before breakfast, First dose (after last modification) on Wed12/28/23 at 0700 0617 (Given - Provider: Cosme Freire R.N., CCRN) 0619 (Given - Provider: Cosme Freire R.N., ZEFERINON) 0609 (Given - Provider: Brittney Dsouza R.N.) fluticasone propionate 50 mcg/actuation nasal spray 2 spray (FLONASE) 2 spray, each nostril, Daily, First dose on Wed12/27/23 at 0900, fluticasone intranasal 50 mcg/actuation was interchanged for mometasone intranasal 0843 (Given - Provider: Jb Valencia R.N.) 0913 (Given - Provider: Paris Magana R.N., CCRN) 0853 (Given - Provider: Tong Gilbert R.N.) hydrocortisone 0.5 % cream 1 Application (INSTACORT) 1 Application, topical, 2 times daily, First dose on Wed12/27/23 at 0900 0844 (Given - Provider: Jb Valencia R.N.)2136 (Given - Provider: Cosme Freire R.N., ZEFERINON) 0917 (Given - Provider: Paris Magana R.N., CCRN)2208 (Given - Provider: Amilcar Lin R.N.) 0849 (Given - Provider: Tong Gilbert R.N.) lamoTRIgine tablet 300 mg (LaMICtaL) 300 mg, gastric tube, Daily at bedtime, First dose (after last modification) on Wed12/27/23 at 2100 202 (Given - Provider: Cosme Freire R.N., ZEFERINON) 214 (Given - Provider: Amilcar Lin R.N.) lamoTRIgine tablet 350 mg (LaMICtaL) 350 mg, gastric tube, 2 times daily, First dose (after last modification) on Wed12/27/23 at 1400 0813 (Given - Provider: Jb Valencia R.N.)1427 (Given - Provider: Jb Valencia R.N.) 0838 (Given - Provider: Paris Magana R.N., ZEFERINON)1455 (Given - Provider: Paris Magana R.N., ZEFERINON) 0820 (Given - Provider: Tong Gilbert R.N.) levETIRAcetam solution 1,500 mg (KEPPRA) 1,500 mg, gastric tube, Every morning, First dose on Wed12/27/23 at 0900 0814 (Given - Provider: Jb Valencia R.N.) 0915 (Given - Provider: Paris Magana R.N., CCRN) 0818 (Given - Provider: Tong Gilbert R.N.) levETIRAcetam solution 1,600 mg (KEPPRA) 1,600 mg, gastric tube, Daily at bedtime, First dose on Wed12/27/23 at 2100 2025 (Given - Provider: Cosme Freire R.N., CCRN) 2143 (Given - Provider: Amilcar Lin R.N.) loratadine tablet 10 mg (CLARITIN) 10 mg, gastric tube, Daily, First dose (after last modification) on Wed12/28/23 at 0900, loratadine 10 mg oral daily was interchanged for levocetirizine 5 mg oral daily 0813 (Given - Provider: Jb Valencia R.N.) 0838 (Given - Provider: Paris Magana R.N., CCRN) 0820 (Given - Provider: Tong Gilbert R.N.) cbgvlwmwwciz-lwno-HG-Ca-m inerals 400 mcg (folic acid) tablet 1 tablet (THERAPEUTIC-M) 1 tablet, gastric tube, Daily, First dose on Wed12/27/23 at 0900 0813 (Given - Provider: Jb Valencia R.N.) 0838 (Given - Provider: Paris Magana R.N., CCRN) 0820 (Given - Provider: Tong Gilbert R.N.) NaCl 0.9 % bolus 1,000 mL 1,000 mL, intravenous, at 1,000 mL/hr, Administer over 1 Hours, Once, On Wed12/27/23 at 0030, For 1 dose naloxone injection 0.4 mg (NARCAN) (COMPLETED) 0.4 mg, intravenous, Once, On Wed12/28/23 at 1545, For 1 dose 1520 (Given - Provider: Jb Valencia R.N.) nystatin 100,000 unit/gram cream 1 Application (MYCOSTATIN) 1 Application, topical, 2 times daily, First dose on Wed12/27/23 at 0900 0844 (Given - Provider: Jb Valencia R.N.)2136 (Given - Provider: Csome Freire R.N., CCRN) 0917 (Given - Provider: Paris Magana R.N., CCRN)220 (Given - Provider: Amilcar Lin R.N.) 0850 (Given - Provider: Tong Gilbert R.N.) nystatin 100,000 unit/gram powder 1 Application (NYSTOP) 1 Application, topical, 3 times daily, First dose on Wed12/27/23 at 0900 0844 (Given - Provider: Jb Valencia R.N.)1427 (Given - Provider: Jb Valencia R.N.)2136 (Given - Provider: Cosme Freire R.N., CCRN) 0917 (Given - Provider: Paris Magana R.N., ZEFERINON)1455 (Given - Provider: Paris Magana R.N., CCRN)2208 (Given - Provider: Amilcar Lin R.N.) 0850 (Given - Provider: Tong Gilbert R.N.) polyethylene glycol powder packet 17 g (MIRALAX) 17 g, oral, Daily, First dose (after last modification) on Wed12/28/23 at 0900, Dissolve in 240 mLs (8 ounces) of water prior to giving. Avoid mixing with starch-based thickened liquids. 0812 (Given - Provider: Jb Valencia R.N.) 0914 (Not Given - Provider: Paris Magana R.N., ZEFERINON - Reason: Other) 0854 (Not Given - Provider: Tong Gilbert R.N. - Reason: Contraindicated) rufinamide tablet 200 mg (BANZEL) 200 mg, gastric tube, Every morning, First dose on Wed12/27/23 at 0900 0812 (Given - Provider: Jb Valencia R.N.) 0914 (Given - Provider: Paris Magana R.N., CCRN) 0818 (Given - Provider: Tong Gilbert R.N.) rufinamide tablet 400 mg (BANZEL) 400 mg, gastric tube, Daily at bedtime, First dose on Wed12/26/23 at 2330 2022 (Given - Provider: Cosme Freire R.N., CCRN) 2144 (Given - Provider: Amilcar Lin R.N.) sennosides tablet 8.6 mg (SENOKOT) (CANCELED) 8.6 mg, oral, 2 times daily, First dose (after last modification) on Wed12/28/23 at 0900 0813 (Given - Provider: Jb Valencia R.N.) sennosides tablet 8.6 mg (SENOKOT) 8.6 mg, gastric tube, 2 times daily, First dose (after last modification) on Wed12/28/23 at 2100 2022 (Given - Provider: Cosme Freire R.N., ZEFERINON) 0838 (Given - Provider: Paris Magana R.N., ZEFERINON)2142 (Given - Provider: Amilcar Lin R.N.) 0854 (Not Given - Provider: Tong Gilbert R.N. - Reason: Contraindicated) sodium chloride 0.9 % injection 3 mL 3 mL, intravenous, Every 12 hours scheduled, First dose on Wed12/26/23 at 2100, Peripheral Intravenous Catheter and Rapid Infusion Catheter, when no infusion to maintain patency 0815 (Given - Provider: Jb Valencia R.N.)2030 (Given - Provider: Cosme Freire R.N., ZEFERINON) 0839 (Not Given - Provider: Paris Magana R.N., ZEFERINON - Reason: See Provider Order)2206 (Given - Provider: Amilcar Lin R.N.) 0848 (Given - Provider: Tong Gilbert R.N.) sodium chloride 0.9 % injection 3 mL 3 mL, intravenous, Every 12 hours scheduled, First dose on Wed12/27/23 at 0900, Peripheral Intravenous Catheter and Rapid Infusion Catheter, when no infusion to maintain patency 0815 (Given - Provider: Jb Valencia R.N.)2030 (Given - Provider: Cosme Freire R.N., ZEFERINON) 0913 (Given - Provider: Paris Magana R.N., ZEFERINON)2154 (Given - Provider: Amilcar Lin R.N.) 0847 (Given - Provider: Tong Gilbert R.N.) zinc oxide 20 % ointment 1 g 1 g, topical, 2 times daily, First dose on Wed12/27/23 at 0900, Apply to GT site for skin protectant. 0844 (Given - Provider: Jb Valencia R.N.)2136 (Given - Provider: Cosme Freire R.N., CCRN) 0914 (Given - Provider: Paris Magana R.N., CCRN)2222 (Given - Provider: Amilcar Lin R.N.) 0851 (Given - Provider: Tong Gilbert R.N.) Continuous Medication Order 12/28/2023 12/29/2023 12/30/2023 naloxone 10 mcg/mL in NaCl 0.9% 500 mL infusion (NARCAN) () 0.3 mg/hr (30 mL/hr), intravenous, Continuous, Starting on Wed12/28/23 at 1715, For 6 hours, Protect from light. 1758 (New Bag - Provider: Umang Whatley R.N.)1900 (Rate/Dose Verify - Provider: Jb Valencia R.N.)190 (Handoff - Provider: Jb Valencia R.N.)195 (Rate/Dose Change - Provider: Cosme Freire R.N., CCRN)2000 (Rate/Dose Verify - Provider: Cosme Freire R.N., CCRN)2100 (Rate/Dose Verify - Provider: Cosme Freire R.N., CCRN)2200 (Rate/Dose Verify - Provider: Cosme Freire R.N., CCRN)2352 (Stopped - Provider: Cosme Freire R.N., ZEFERINON) PRN Medication Order 12/28/2023 12/29/2023 12/30/2023 acetaminophen tablet 1,000 mg (TYLENOL) 1,000 mg, oral, Every 8 hours PRN, mild pain or score 1-3 of 10, moderate pain or score 4-6 of 10, severe pain or score 7-10 of 10, fever, Starting on Wed12/28/23 at 0724 0813 (Given - Provider: Jb Valencia R.N.) 0838 (Given - Provider: Paris Magana R.N., CCRN - Comment: Gtube) bacitracin 500 unit/gram ointment packet 1 packet 1 packet (1 Application), topical, As needed, redness, inflammation on skin, Starting on Wed12/26/23 at 2302 barium 40 % (w/v), 30% (w/w) paste 10 mL (VARIBAR PUDDING) (COMPLETED) 10 mL, oral, Once in imaging, contrast, Starting on Tata 12/30/23 at 0923, For 1 dose 0924 (Given - Provider: Shamir Parekh(R)) barium 81 % (w/w) oral powder for suspension 6 g (VARIBAR THIN LIQUID) (COMPLETED) 6 g (15 mL), oral, Once in imaging, contrast, Starting on Tata 12/30/23 at 0923, For 1 dose 0924 (Given - Provider: Shamir Parekh(R)) clotrimazole 1 % external solution 1 Application (FUNGI CURE) 1 Application, topical, Daily PRN, rash on head, Starting on 12/26/23 at 2302 clotrimazole-betamethas one 1-0.05 % cream 1 Application (LOTRISONE) 1 Application, topical, 2 times daily PRN, rash or concerns for yeast infection, Starting on 12/26/23 at 2302 diazePAM tablet 10 mg (VALIUM) 10 mg, gastric tube, 3 times daily PRN, seizures, Starting on 12/27/23 at 1023 HYDROmorphone tablet 2 mg (DILAUDID) (CANCELED) 2 mg, small bowel tube, Every 12 hours PRN, severe pain or score 7-10 of 10, Starting on Wed12/28/23 at 1131 1158 (Given - Provider: Jb Valencia RHarika.) ketotifen 0.025 % (0.035 %) ophthalmic solution 1 drop (ZADITOR) 1 drop, both eyes, 4 times daily PRN, redness, Starting on 12/26/23 at 2302, ketotifen 0.025% ophthalmic solution was interchanged for olopatadine 0.2% ophthalmic solution levETIRAcetam solution 200 mg (KEPPRA) 200 mg, gastric tube, 3 times daily PRN, seizures, Starting on 12/26/23 at 2302 0914 (Canceled Entry - Provider: Paris Magana RJuli, CCRN) loperamide liquid 2 mg (IMODIUM A-D) 2 mg, oral, Daily PRN, diarrhea, Starting on Wed12/26/23 at 2302 LORazepam injection 2 mg (ATIVAN) 2 mg, intravenous, Every 1 hour PRN, seizure, Starting on Wed12/26/23 at 1712, Shortage on injection, use oral when possible For intravenous use, dilute with equal volume of 0.9% NS naloxone injection 0.4 mg (NARCAN) 0.4 mg, intravenous, As needed, reversal, Starting on Wed12/28/23 at 1524 1535 (Given - Provider: Jb Valencia R.N.)1551 (Given - Provider: Nico FortuneN.)1627 (Given - Provider: Jb Valencia R.N.)1643 (Given - Provider: Jb Valencia R.N.) prochlorperazine injection 5 mg (COMPAZINE) 5 mg, intravenous, Every 6 hours PRN, vomiting, nausea, Starting on Wed12/26/23 at 2302 simethicone chewable tablet 125 mg (MYLICON) 125 mg, oral, Every 6 hours PRN, flatulence, bloating, Starting on Wed12/26/23 at 2302 sodium chloride 0.9 % injection 10 mL 10 mL, intravenous, As needed, line care, Starting on Wed12/26/23 at 1624, Peripheral Intravenous Catheter and Rapid Infusion Catheter, prior to blood sampling, post blood transfusion or post blood sampling sodium chloride 0.9 % injection 10 mL 10 mL, intravenous, As needed, line care, Starting on Wed12/26/23 at 2301, Peripheral Intravenous Catheter and Rapid Infusion Catheter, prior to blood sampling, post blood transfusion or post blood sampling sodium chloride 0.9 % injection 3 mL 3 mL, intravenous, As needed, line care, Starting on Wed12/26/23 at 1624, Prior to and following infusion and between multiple consecutive infusions: sodium chloride 0.9 % injection sodium chloride 0.9 % injection 3 mL 3 mL, intravenous, As needed, line care, Starting on Wed12/26/23 at 2301, Prior to and following infusion and between multiple consecutive infusions: sodium chloride 0.9 % injection zinc oxide 13 % cream 1 Application (DESITIN) 1 Application, topical, As needed, skin cares, Starting on 12/26/23 at 2302 documented in this encounter Additional Health Concerns Infection Onset Date Last Indicated Resolved Time COVID19 Pending 12/26/2023 12/26/2023 12/26/2023 8 :18 PM CDT documented as of this encounter Care Teams Crime Scene Specialist Relationship Specialty Start Date End Date Elsewhere, Pcp PCP - General Family Medicine 06/24/18 documented as of this encounter
--- OUTSIDE RECORDS SUMMARY | 2024-02-28 11:40 | XMS_ITS | Encounter Summary ---
Author Organization [facility] Address [address] [place] [address] Care Team Providers Care Private Branch Exchange Service Advisor Name Role Phone Elsewhere, Pcp Primary Care Provider Unavailabl e Encounter Details Date Type Department Care Team (Latest Contact Info) Description 12/29/2023 11:05 AM CDT - 12/29/2023 11:59 PM CDT Hospital Encounter Department of Radiology, [facility] in [place], [place] [address] [place] [phone] Pedro Pablo Kline M.D. [address] [place] [address] Discharge Disposition: Home or Self Care Social [...] declined 12/11/2021 How often do you attend worship or rastafari serv ices? Patient declined 12/11/2021 Do you belong to any clubs o r organizations such as worship groups, unions, fraternal or athletic groups, or [...] and heating? Not hard at all 12/11/2021 [facility]at ional [facility] - [...] infection, community acquired. 2 tablet 12/30/2023 12/31/2023 HYDROcodone-acetamino phen (NORCO) 10-325 mg per tablet Take 1 tablet by mouth every 6 (six) hours as needed. 03/29/2023 12/30/2023 LaMICtal 200 mg tablet TAKE 1 TABLET VIA GTUBE THREE TIMES DAILY 03/10/2023 12/30/2023 rufinamide (BANZEL) 200 mg tablet Administer 200 mg via gastric tube every morning. 12/30/2023 silver nitrate (ARZOL) 75-25 % topical stick Apply 1 Application topically as needed (redness). Apply 1-2x/week as needed for redness topically around GT stoma until redness is gone or no longer needed. 12/30/2023 documented as of this encounter Plan of Treatment Not on file documented as of this encounter Procedures Procedure Name Priority Date/Time Associated Diagnosis Comments FL FLUORO LESS THAN 1 HOUR RAD - Routine (most inpatients and all outpatients) 12/29/2023 1:19 PM CDT documented in this encounter Results * FL Fluoro Less Than 1 Hour (12/29/2023 1:19 PM CDT) Narrative ERCP LOS RST - 12/29/2023 1:20 PM CDT This exam does not require a radiologist review or interpretation. Please refer to the patient's medical record on this date for clinical details. Pedro Pablo Kline M.D. IMG FLUOROSCOPY PROC EDURES ERCP LOS RST documented in this encounter Visit Diagnoses Not on filedocumented in this encounter Care Teams Private Branch Exchange Service Advisor Relationship Specialty Start Date End Date Elsewhere, Pcp PCP - General Family Medicine 06/24/18 documented as of this encounter
--- OUTSIDE RECORDS SUMMARY | 2024-02-28 11:40 | XMS_ITS | Encounter Summary ---
Author Organization [facility] Address [address] [place] [address] Care Team Providers Care Janitorial Assistant Name Role Phone Elsewhere, Pcp Primary Care Provider Unavailabl e Encounter Details Date Type Department Care Team (Late st Contact Info) Description 12/27/2023 12:50 AM CDT Ancillary Procedure Department of Pulmonary and CC Medicine Social History Tobacco Use Types Packs/Day Years [...] How often do you attend jainism or mandaeism serv ices? Patient declined 12/11/2021 Do you [...] and heating? Not hard at all 12/11/2021 [facility] Occupat ional Health - [...] place to sleep or slept in a correction (including now)? No 12/11/2021 Nutrition Answer Date [...] PM CDT documented as of this encounter Plan of Treatment Not on file documented as of this encounter Procedures Procedure Name Priority Date/Time Associated Diagnosis Comments PULMONARY AND CC MEDICINE IMAGE EXAM Routine 12/27/2023 12:50 AM CDT documented in this encounter Results * Non-Radiology Image-Pulmonary And CC Medicine Image [...] System IMG NON RAD IMAGI NG PROCEDURES IIMS NA documented in this encounter Visit Diagnoses Not on filedocumented in this encounter Care Teams Janitorial Assistant Relationship Specialty Start Date End Date Elsewhere, Pcp PCP - General Family Medicine 06/24/18 documented as of this encounter
--- OUTSIDE RECORDS SUMMARY | 2024-02-28 11:40 | XMS_ITS | Encounter Summary ---
Author Organization [facility] Address [address] [place] [address] Care Team Providers Care V Block Saw Operator Name Role Phone Elsewhere, Pcp Primary Care Provider Unavailabl e Reason for Referral * Outpatient (Routine) - Closed Specialty Diagnoses / Procedures Referred By Valorie copeland Referred To Contact Sleep Medicine Srinath Rodriguez M.D. [address] [place] [phone] Jessy Pisano M.D. [address] [place] [phone] Referral ID Status Reason Start Date Expiration Date Visits Re quested Visits Authorized [id number] Closed 12/27/2023 06/27/2025 1 1 Scheduling Instructions Pre PSG visit Encounter Details Date Type Department Care Team (Late st Contact Info) Description 12/27/2023 Orders Only [facility] in [place], [place] [address] [place] [phone] Srinath Rodriguez M.D. [address] [place] [phone] Social History Tobacco Use Types Packs/Day Years [...] declined 12/11/2021 How often do you attend adventist or anabaptism serv ices? Patient declined 12/11/2021 Do you belong to any clubs o r organizations such as adventist groups, unions, fraternal or athletic groups, or [...] and heating? Not hard at all 12/11/2021 [facility] of Occupat ional Health - Occupational Stress [...] place to sleep or slept in a [place] facility (including now)? No 12/11/2021 Nutrition Answer Date [...] as of this encounter Plan of Treatment Scheduled Referrals Name Type Priority Associated Diagnoses Orde r Schedule Sleep Medicine office visit (clinic) Outpatient Referral Routine Expected: 12/27/2023, Expires: 03/27/2025 documented as of this encounter Visit Diagnoses Not on filedocumented in this encounter Care Teams V Block Saw Operator Relationship Specialty Start Date End Date Elsewhere, Pcp PCP - General Family Medicine 06/24/18 documented as of this encounter
--- OUTSIDE RECORDS SUMMARY | 2024-02-28 11:40 | XMS_ITS | Encounter Summary ---
Author Organization [facility] Address [address] [place] [address] Care Team Providers Care Sports Fitness And Wellness Director Name Role Phone Elsewhere, Pcp Primary Care Provider Unavailabl e Reason for Referral * Outpatient (Routine) - Authorized Specialty Diagnoses / Procedures Referred By Contac t Referred To Contact Diagnoses Dietary Counseling And Surveillance For Enteral Nutrition Procedures EGD ? Percutaneous Endoscopic Gastrostomy/Jejunostomy Sis Bronw APRN, C.N.P., D.N.P. [address] [place] [phone] [facility] Referral ID Status Reason Start Date Expiration Date V isits Requested Visits Authorized [id number] Authorized 12/20/2023 12/19/2024 1 1 * Outpatient (Routine) - Authorized Specialty Diagnoses / Procedures Referred By Contac t Referred To Contact Endocrinology Diagnoses Dietary Counseling And Surveillance For Enteral Nutrition Sis Brown APRN, C.N.P., D.N.P. [address] [place] [phone] [facility] Referral ID Status Reason Start Date Expiration Date V isits Requested Visits Authorized [id number] Authorized 12/20/2023 06/20/2025 1 1 Scheduling Instructions For triage only Encounter Details Date Type Department Care Team ([facility] st Contact Info) Description 12/20/2023 Orders Only Division of Endocrinology in [place], [place] [address] [place] [phone] Anastasia Chaney RMayN. Dietary Counseling And Surveillance For Enteral Nutrition (Primary Dx) Social History Tobacco Use Types Packs/Day Years [...] declined 12/11/2021 How often do you attend baptism or roman catholic serv ices? Patient declined 12/11/2021 Do you belong to any clubs o r organizations such as baptism groups, unions, fraternal or athletic groups, or [...] and heating? Not hard at all 12/11/2021 [facility] of Occupat ional Health - Occupational Stress [...] place to sleep or slept in a fpc (including now)? No 12/11/2021 Nutrition Answer Date [...] of this encounter Plan of Treatment Scheduled Orders Name Type Priority Associated Diagnoses Orde r Schedule EGD ? Percutaneous Endoscopic Gastrostomy/Jejunostomy GI Routine Dietary Counseling And Surveillance For Enteral Nutrition Expected: 12/20/2023, Expires: 03/20/2025 Scheduled Referrals Name Type Priority Associated Diagnoses Orde r Schedule Endocrinology - Home enteral medical nutrition therapy consult (clinic) Outpatient Referral Routine Dietary Counseling And Surveillance For Enteral Nutrition Expected: 12/20/2023, Expires: 03/20/2025 documented as of this encounter Visit Diagnoses Diagnosis Dietary Counseling And Surveillance For Enteral Nutrition- Primary documented in this encounter Additional Health Concerns Infection Onset Date Last Indicated Resolved Time COVID19 Pending 12/26/2023 12/26/2023 12/26/2023 8 :18 PM CDT documented as of this encounter Care Teams Sports Fitness And Wellness Director Relationship Specialty Start Date End Date Elsewhere, Pcp PCP - General Family Medicine 06/24/18 documented as of this encounter
--- OUTSIDE RECORDS SUMMARY | 2024-02-28 11:40 | XMS_ITS | Encounter Summary ---
Author Organization [facility] Address [address] [place] [address] Care Team Providers Care Eyelet Maker Name Role Phone Elsewhere, Pcp Primary Care Provider Unavailabl e Reason for Referral * Speech Pathology (Routine) - Authorized Specialty Diagnoses / Procedures [facility] Referred To Contact Diagnoses Dietary Counseling And Surveillance For Enteral Nutrition Procedures DIESEL ENGINE ERECTOR - Ongoing treatment Sis Brown APRN, C.N.P., D.N.P. [address] [place] [phone] [facility] Referral ID Status Reason Start Date Expiration Date V isits Requested Visits Authorized [id number] Authorized 12/22/2023 12/21/2024 99 99 * Outpatient (Routine) - Authorized Specialty Diagnoses / Procedures Referred By Contac t Referred To Contact Diagnoses Dietary Counseling And Surveillance For Enteral Nutrition Procedures FL Swallow Function with Video and Speech or OT Sis Brown APRN, C.N.P., D.N.P. [address] [place] [phone] [facility] Referral ID Status Reason Start Date Expiration Date V isits Requested Visits Authorized [id number] Authorized 12/22/2023 12/21/2024 1 1 * Speech Pathology (Routine) - Authorized Specialty Diagnoses / Procedures Referred By Contac t Referred To Contact Diagnoses Dietary Counseling And Surveillance For Enteral Nutrition Procedures DIESEL ENGINE ERECTOR Dysphagia evaluate and treat Sis Brown APRN, C.N.PMay, Keren.N.P. [address] [place] [phone] [facility] Referral ID Status Reason Start Date Expiration Date V isits Requested Visits Authorized [id number] Authorized 12/22/2023 12/21/2024 99 99 Reason for Visit * Reason Onset Date Comments Follow-up Orders 12/20/2023 Encounter Details Date Type Department Care Team (Latest Contact Info) Description 12/20/2023 Clinical Communication Division of Endocrinology in [place], [place] [address] [place] [phone] Provider, Unknown Follow-up Orders Social History Tobacco Use Types Packs/Day Years [...] declined 12/11/2021 How often do you attend jehovah's witness or caodaism serv ices? Patient declined 12/11/2021 Do you belong to any clubs o r organizations such as jehovah's witness groups, unions, fraternal or athletic groups, or [...] and heating? Not hard at all 12/11/2021 [facility] [place] of Occupat ional Health - Occupational Stress [...] place to sleep or slept in a assisted (including now)? No 12/11/2021 Nutrition Answer Date [...] Type Priority Associated Diagnoses Orde r Schedule FL Swallow Function with Video and Speech or OT Imaging RAD - Routine (most inpatients and all outpatients) Dietary Counseling And Surveillance For Enteral Nutrition Expected: 12/22/2023, Expires: 03/21/2025 documented as of this encounter Visit Diagnoses Diagnosis Dietary Counseling And Surveillance For Enteral Nutrition- Primary documented in this encounter Additional Health Concerns Infection Onset Date Last Indicated Resolved Time COVID19 Pending 12/26/2023 12/26/2023 12/26/2023 8 :18 PM CDT documented as of this encounter Care Teams Eyelet Maker Relationship Specialty Start Date End Date Elsewhere, Pcp PCP - General Family Medicine 06/24/18 documented as of this encounter
--- OUTSIDE RECORDS SUMMARY | 2024-02-28 11:40 | XMS_ITS | Encounter Summary ---
Author Organization [facility] Address [address] [place] [address] Care Team Providers Care Granite Installer Name Role Phone Luis Angel Flores MD Primary Care Provider [phone] Encounter Details Date Type Department Care Team (Late st Contact Info) Description 02/01/2024 Orders Only [address] [address] Luis Angel Flores MD [address] [place] [phone] Dermatitis (Primary Dx) Social History Tobacco Use Types [...] [place] [facility] [place] (including now)? No 01/18/2024 Sex and Gender Information Value Date Recorded Sex Assigned at Not on file Gender Identity Not on file Sexual Orientation Not on file documented as of this encounter Plan of Treatment Not on file documented as of this encounter Visit Diagnoses Diagnosis Dermatitis- Primary Contact dermatitis and other eczema, due to unspecified cause documented in this encounter Care Teams Granite Installer Relationship Specialty Start Date End Date Luis Angel Flores MD [address] [place] [phone] PCP - General 05/27/18 documented as of this encounter
--- OUTSIDE RECORDS SUMMARY | 2024-02-28 11:40 | XMS_ITS | Encounter Summary ---
Author Organization [facility] Address [address] [place] [address] Care Team Providers Care Hospitality Host Name Role Phone Elsewhere, Pcp Primary Care Provider Unavailabl e Reason for Visit * Reason Onset Date Comments Vomiting 12/26/2023 Tube Problem 12/26/2023 Encounter Details Date Type Department Care Team (Late st Contact Info) Description 12/26/2023 Nurse Triage Department of Family Medicine, [facility], in [place], [place] [address] [place] [phone] Poonam Jasmine RJuli [address] [place] [phone] Vomiting; Tube Problem Social History Tobacco Use Types Packs/Day Years [...] How often do you attend temple or oriental orthodox serv ices? Patient declined 12/11/2021 Do you [...] heating? Not hard at all 12/11/2021 [facility] of Occupat ional Health - Occupational [...] place to sleep or slept in a detention (including now)? No 12/11/2021 Nutrition Answer Date [...] PM CDT documented as of this encounter Miscellaneous Notes * Telephone Encounter - Poonam Jasmine R.N. - 12/26/2023 1:39 PM CDT Chief Complaint / Reason for Call Patient is a 43 y.o. male, mother Shelby, calling regarding Vomiting and Tube Problem. Assessment Concern: [facility] patient pulled out feeding tube this morning. States has been running a fever TMAX 100. States this morning also started vomiting x 1 and has been in pain (is unable to discern where pain is located as patient is non- verbal). States has had a rash on back as well, states was in a lot of pain last night which seemed to improve after taking Hydrocodone. States is also not having a lot of urinary output, and what he is having is dark. States stools have also been looser over the last 2 days. This nurse recommended ED evaluation d/t tube dislodgement, fever, vomiting and patient'smultiple comorbidities, advised if unable to safely transport patient to ED, would be appropriate to call 911, caller verbalized understanding. Present for: couple days (sickness), tube removal (today) Home cares tried: Hydrocodone, Tylenol Calling to request: advice The recommended disposition is Go to ED Now, See a health care provider within 4 hours. Care Advice Patient/Caregiver understands and will follow care advice?: Yes, able to teach back [id number] Poonam Jasmine R.N. Sun Dec 26, 2023 01:46 PM Care Advice FEVER MEDICINE - ACETAMINOPHEN: * Fever above 101 F (38.3 C) should be treated with acetaminophen (e.g., Tylenol). This can be taken by mouth as pills or per rectum using a suppository. Both are available over the counter. Usual adult dose is 650 mg by mouth or per rectum every 6 hours. * The goal of fever therapy is to bring the fever down to a comfortable level. Remember that fever medicine usually lowers fever 2-3 F (1-1.5 C). CALL BACK IF: * You become worse Feeding Tube Symptoms and [id number] Poonam Jasmine R.N. Sun Dec 26, 2023 01:46 PM Care Advice GO TO ED NOW: * You need to be seen in the Emergency Department. * Go to the ED at nearest Hospital. * Leave now. Drive carefully. NOTE TO TRIAGER - TUBE REPLACEMENT: * Contacting the patient's doctor (or ENGINEERING EQUIPMENT OPERATOR/PA) may be indicated in some cases to determine where to go to get tube replaced. It depends on the healthcare system and the type of tube. Places where the tube can be replaced include: * In the home by a Home Health Care (visiting) nurse * Outpatient area of a hospital: Meet the physician there. * Interventional radiology * Emergency department DISLODGED TUBE: * When a tube comes out, the opening typically closes within 4-24 hours. * Therefore, the patient should be seen within 4 hours to replace the tube. BRING MEDICINES: * Please bring a list of your current medicines when you go to see the doctor. * It is also a good idea to bring the pill bottles too. This will help the doctor to make certain you are taking the right medicines and the right dose. CALL BACK IF: * You become worse Reason for Disposition [1] Fever > 100.0 F (37.8 C) AND [2] bedridden (e.g., CVA, chronic illness, recovering from surgery) G-tube (or PEG), J-tube, or GJ-tube came completely out of site in abdominal wall Protocols used: Bzoxyyis-MRALC-FG, Feeding Tube Symptoms and Jhlvsokvr-MIQDB-TI documented in this encounter Plan of Treatment Not on file documented as of this encounter Visit Diagnoses Not on filedocumented in this encounter Care Teams Hospitality Host Relationship Specialty Start Date End Date Elsewhere, Pcp PCP - General Family Medicine 06/24/18 documented as of this encounter
[2024-02-28 11:41] LABS: Basophils Absolute Auto 0.01 K/uL (0.00-0.30); Basophils Percent Auto 0.2 % (0.0-3.0); Eosinophils Absolute Auto 0.18 K/uL (0.00-0.50); Eosinophils Percent Auto 3.6 % (0.0-7.0); Hematocrit 38.5 % (37.0-53.0); Hemoglobin* 13.3 gm/dL (13.5-17.5); Lymphocytes Absolute Auto 1.33 K/uL (0.90-2.90); Lymphocytes Percent Auto 26.8 % (20-44); Mean Corpuscular HGB Conc 35 gm/dL (32-36); Mean Corpuscular Hemoglobin 35 pg (26-34); Mean Corpuscular Volume 100 fL (80-100); Monocytes Percent Auto 7.3 % (0.0-11.0); Neutrophils Absolute Auto 3.08 K/uL (1.7-7.0); Neutrophils Percent Auto 62.1 % (42.0-72.0); Platelet Count* 128 K/uL (140-440); Red Blood Count 3.85 m/uL (4.30-5.90); White Blood Count* 4.96 K/uL (4.50-11.00)
--- OUTSIDE RECORDS SUMMARY | 2024-02-28 11:41 | XMS_ITS | Encounter Summary ---
Author Organization [facility] er Address [address] [place] [address] Care Team Providers Care Desk Director Name Role Phone Luis Angel Flores MD Primary Care Provider [phone] Encounter Details Date Type Department Care Team (Late st Contact Info) Description 11/24/[address] [address] Luis Angel Flores MD [address] [place] [phone] Primary insomnia (Primary Dx) Social History Tobacco Use Types Packs/Day Years Used Date Smoking Tobacco: Never Smokeless Tobacco: Never Alcohol Use Standard Drinks/Week Comments Never 0 (1 standard drink = 0.6 oz pur e alcohol) AUDIT-C Answer Date Recorded Q1: How often do you have a drink containing alc ohol? Never 07/12/2020 Average Number of Drinks Not on file 020 Frequency of Binge Drinking Not on file 06/15 PHQ-2 Answer Date Recorded PHQ-9 Total Score 0 03/11/2022 Sex and Gender Information Value Date Recorded Sex Assigned at Not on file Gender Identity Not on file Sexual Orientation Not on file documented as of this encounter Plan of Treatment Not on file documented as of this encounter Visit Diagnoses Diagnosis Primary insomnia- Primary Persistent disorder of initiating or maintaining sleep documented in this encounter Care Teams Desk Director Relationship Specialty Start Date End Date Luis Angel Flores MD [address] [place] [phone] PCP - General 05/27/18 documented as of this encounter
--- OUTSIDE RECORDS SUMMARY | 2024-02-28 11:41 | XMS_ITS | Encounter Summary ---
Author Organization [facility] er Address [address] [place] [address] Care Team Providers Care Steel Shot Header Operator Name Role Phone Luis Angel Flores MD Primary Care Provider [phone] Reason for Visit * Reason Onset Date Comments Med Refill 07/21/2018 Encounter Details Date Type Department Care Team (Late st Contact Info) Description 07/21/[address] [id number] Luis Angel Flores MD [address] [place] [phone] Social History Tobacco Use Types Packs/Day Years Used Date Smoking Tobacco: Never Assessed Sex and Gender Information Value Date Recorded Sex Assigned at Not on file Gender Identity Not on file Sexual Orientation Not on file documented as of this encounter Plan of Treatment Not on file documented as of this encounter Visit Diagnoses Not on filedocumented in this encounter Care Teams Steel Shot Header Operator Relationship Specialty Start Date End Date Luis Angel Flores MD [address] [place] [phone] PCP - General 05/27/18 documented as of this encounter
--- OUTSIDE RECORDS SUMMARY | 2024-02-28 11:41 | XMS_ITS | Encounter Summary ---
Author Organization [facility] er Address [address] [place] [address] Care Team Providers Care Rn Pacu Name Role Phone Luis Angel Flores MD Primary Care Provider Reason for Visit * Reason Onset Date Comments Med Refill 10/18/2018 Encounter Details Date Type Department Care Team (Late st Contact Info) Description 09/19/[address] [address] Luis Angel Flores MD [address] [place] [phone] Chronic pain syndrome (Primary Dx) Social History Tobacco Use Types Packs/Day Years Used Date Smoking Tobacco: Never Assessed Sex and Gender Information Value Date Recorded Sex Assigned at Not on file Gender Identity Not on file Sexual Orientation Not on file documented as of this encounter Miscellaneous Notes * Telephone Encounter - Gardenia Alfaro LPN - 09/19/2018 1:09 PM GOLF STARTER AND RANGER Patient seen 05/19/18. Per visit note Chronic pain syndrome. [place] given for 3 months should call back for refills. Has been on this medication for many years. STARTER AND RANGER * Telephone Encounter - Kindra Abreu - 09/19/2018 8:59 AM CST Needs refill on vicadin STARTER AND RANGER documented in this encounter Plan of Treatment Not on file documented as of this encounter Visit Diagnoses Diagnosis Chronic pain syndrome- Primary documented in this encounter Care Teams Rn Pacu Relationship Specialty Start Date End Date Luis Angel Flores MD [address] [place] [phone] PCP - General 05/27/18 documented as of this encounter
--- OUTSIDE RECORDS SUMMARY | 2024-02-28 11:41 | XMS_ITS | Encounter Summary ---
Author Organization [facility] er Address [address] [place] [address] Care Team Providers Care Railway Yard Assistant Name Role Phone Luis Angel Flores MD Primary Care Provider [phone] Reason for Visit * Reason Comments Med Refill Encounter Details Date Type Department Care Team (Late st Contact Info) Description 01/30/[address] [address] Luis Angel Flores MD [address] [place] [phone] Chronic pain syndrome Social History Tobacco Use Types Packs/Day Years [...] of Binge Drinking Not on file 06/15 Sex and Gender Information Value Date Recorded Sex Assigned at Not on file Gender Identity Not on file Sexual Orientation Not on file documented as of this encounter Miscellaneous Notes * Telephone Encounter - Gardenia Alfaro LPN - 02/02/2022 9:53 AM CDT RX sent to [facility] * Telephone Encounter - Gardenia Alfaro LPN - 01/30/2022 1:15 PM CDT My chart message sent for clarification of pharmacy. * Telephone Encounter - Patrick Garcia LPN - 01/30/2022 12:47 PM CDT HYDROcodone-acetaminophen (NORCO) 10-325 MG per tablet x 3 Rx's were sent to [id number] - [place] - [address], [place] [address] ?? Today. Now [facility] [place] - [address], [facility] [address] ?? is requesting Rx. Please review and advise patient and pharmacy. documented in this encounter Plan of Treatment Not on file documented as of this encounter Visit Diagnoses Diagnosis Chronic pain syndrome documented in this encounter Care Teams Railway Yard Assistant Relationship Specialty Start Date End Date Luis Angel Flores MD [address] [place] [address] PCP - General 05/27/18 documented as of this encounter
--- OUTSIDE RECORDS SUMMARY | 2024-02-28 11:41 | XMS_ITS | Encounter Summary ---
Author Organization [facility] er Address [address] [place] [address] Care Team Providers Care Regulatory Services Consultant Name Role Phone Luis Angel Flores MD Primary Care Provider [phone] Reason for Visit * Reason Onset Date Comments Med Refill 07/31/2020 Med Refill 08/12/2020 Encounter Details Date Type Department Care Team (Late st Contact Info) Description 07/31/[address] [phone] Luis Angel Flores MD [address] [place] [phone] Aspiration pneumonia, unspecified aspiration pneumonia type, unspecified laterality, unspecified part of lung (HCC) (Primary Dx) Social History Tobacco Use Types [...] Telephone Encounter - Gardenia Alfaro LPN - 07/31/2020 9:46 AM SSIS SSRS DEVELOPER [facility] requesting RX for oxygen. Please review. SSRS DEVELOPER documented in this encounter Plan of Treatment Not on file documented as of this encounter Visit Diagnoses Diagnosis Aspiration pneumonia, unspecified aspiration pneumonia type, unspecified laterality, unspecified part of lung (HCC)- Primary documented in this encounter Care Teams Regulatory Services Consultant Relationship Specialty Start Date End Date Luis Angel Flores MD [address] [place] [address] PCP - General 05/27/18 documented as of this encounter
--- OUTSIDE RECORDS SUMMARY | 2024-02-28 11:41 | XMS_ITS | Encounter Summary ---
Author Organization [facility] er Address [address] [place] [address] Care Team Providers Care Vp Customer Development Name Role Phone Luis Angel Flores MD Primary Care Provider [phone] Encounter Details Date Type Department Care Team (Late st Contact Info) Description 08/21/2020 [facility] [address] [place] [address] Luis Angel Flores MD [address] [place] [address] Social History Tobacco Use Types Packs/Day [...] on filedocumented in this encounter Care Teams Vp Customer Development Relationship Specialty Start Date End Date Luis Angel Flores MD [address] [place] [phone] PCP - General 05/27/18 documented as of this encounter
--- OUTSIDE RECORDS SUMMARY | 2024-02-28 11:41 | XMS_ITS | Encounter Summary ---
Author Organization [facility] er Address [address] [place] [address] Care Team Providers Care Operations Support Specialist Name Role Phone Luis Angel Flores MD Primary Care Provider [phone] Reason for Visit * Reason Onset Date Comments TCM Follow-up 12/31/2023 Encounter Details Date Type Department Care Team (Late st Contact Info) Description 12/31/2023 [facility] [address] [place] [address] Luis Angel Flores MD [address] [place] [address] TCM Follow-up Social History Tobacco Use Types Packs/Day Years [...] encounter Miscellaneous Notes * Telephone Encounter - Shanika Chavarria RN - 01/03/2024 1:54 PM CDT Whyd message read. * Telephone Encounter - Shanika Chavarria RN - 12/31/2023 10:21 AM CDT Transitional Care Management Follow-Up Phone Call Patient: Say Hilario : 1980 PCP: Luis Angel Flores MD Admission Date: 12/26/23 Discharge Date: 12/30/23 Discharging Facility: [facility] Discharge Diagnosis: Aspiration Pneumonia Secondary to Procedure Complexity Level: High Does the patient have a scheduled appt based on complexity level within 7 days or 14 days?: -- (needs) Any referrals or testing to be ordered after D/C?: Yes What was ordered?: see notes Follow-Up Call: Date of Call: 12/31/23 Time of Call: [phone] Number of Call Attempts: 2 (lmtcb + mychart message) DISCHARGE DISPOSITION Home or Self Care [1] ACTIVE ISSUES REQUIRING FOLLOW UP Tube will need to be replaced in 3 months (sooner if needed) If at anytime questions or concerns related to tube site or tube call [phone] Wednesday - Wednesday 7;30 am-4:30 pm or after hours, weekends, holidays call [facility] picker machine operator [phone] ask them to page [phone] and wait for MD to answer. May need to repeat call if they don't answer they could be busy doing procedure. Sleep medicine follow up has been arranged Strongly recommend PCP follow up within 1 week documented in this encounter Plan of Treatment Not on file documented as of this encounter Visit Diagnoses Not on filedocumented in this encounter Care Teams Operations Support Specialist Relationship Specialty Start Date End Date Luis Angel Flores MD [address] [place] [address] PCP - General 05/27/18 documented as of this encounter
[2024-02-28 11:43] LABS: Slide Review Reflex No
[2024-02-28] MEDS: 0.9 % SODIUM CHLORIDE 500 ML 500 ML 1000 ML IV (11:43)
[2024-02-28 12:12] LABS: Procalcitonin* 0.05 ng/mL (<0.50)
[2024-02-28] MEDS: 0.9 % SODIUM CHLORIDE 1000 ml 1,000 ML 500 ML IV (12:12)
[2024-02-28 12:14] LABS: Troponin I* 0.07 ng/mL (0.01-0.04)
[2024-02-28 12:16] LABS: Chloride* 90 mmol/L (96-114)
[2024-02-28 12:17] LABS: Potassium* 4.1 mmol/L (3.6-5.1)
[2024-02-28 12:19] LABS: Creatinine* 0.3 mg/dL (0.5-1.5); Estimated Glomerular Filt Rate 151 ml/min
[2024-02-28 12:20] LABS: Alanine Aminotransferase* 26 U/L (4-50); Alkaline Phosphatase* 149 U/L (40-150); Anion Gap 8 mEq/L (7-15); Aspartate Amino Transferase* 36 U/L (12-35); Bilirubin Direct* 0.4 mg/dL (0.0-0.5); Bilirubin Total* 0.5 mg/dL (0.1-1.5); Blood Urea Nitrogen* 10 mg/dL (5-24); Calcium* 8.2 mg/dL (8.4-10.6); Carbon Dioxide* 26 mmol/L (20-32); Glucose* 85 mg/dL (60-115); Total Protein* 6.8 g/dL (6.0-8.3)
[2024-02-28 12:21] LABS: Sodium* 124 mmol/L (135-149)
[2024-02-28 12:22] LABS: C Reactive Protein* 1.5 mg/dL (0.5-1.0)
[2024-02-28 12:27] LABS: D Dimer Quantitative* < 0.27 ug/ml (0.00-0.50)
[2024-02-28 12:29] LABS: NT Pro B Type NatriureticPept* 124 pg/mL
[2024-02-28 12:59] LABS: PCR FLU A Negative PCR FLU A (Negative); PCR FLU B Negative PCR FLU B (Negative); PCR RSV Negative PCR RSV (Negative); SARS PCR* Negative SARS-CoV-2 (Negative)
[2024-02-28 13:09] LABS: Appearance Urine Clear (Clear); Bilirubin Urine Negative (Negative); Blood Urine Negative (Negative); Color Urine Yellow (Yellow); Glucose Urine Negative (Negative); Ketones Urine Negative (Negative); Leukocyte Esterase Urine Negative (Negative); Nitrite Urine Negative (Negative); Protein Urine Negative (Negative); Specific Gravity Urine 1.015 (1.000-1.030); Urobilinogen Urine 0.2 (0.2-1.0)
[2024-02-28] MEDS: 0.9 % SODIUM CHLORIDE 1000 ml 1,000 ML IV (13:24)
[2024-02-28 13:50] LABS: RBC Urine 0-2 (0-2); Squamous Epithelial Cell Urine Few (None-Few); WBC Urine 0-2 (0-5)
== END 2024-02-28 13:35 | disposition short-term general hospital (02) ==
PROVIDERS: Emergency Provider Family Medicine; PCP Family Medicine
DX: J96.01 Acute respiratory failure with hypoxia (principal); I95.9 Hypotension, unspecified; I82.402 Acute embolism and thrombosis of unspecified deep veins of left lower extremity
CPT/HCPCS: 36415; 71045; 80048; 80076; 81001; 82803; 83605; 83880; 84145; 84484; 85025; 85379; 86140; 87040; 87086; 87186; 87631; 93005; 93970; 94761; 99285; 99291; J0743; J7030

== ENCOUNTER 2024-02-28 13:15 | Outpatient (CLI) | payer MEDICARE, MEDICAID, SELFPAY ==
--- OUTSIDE RECORDS SUMMARY | 2024-03-04 05:14 | XMS_ITS | Clinical Summary ---
Author Organization [facility] Address [place], [place] [address] Care Team Providers Care Metal Polisher And Buffer Apprentice Name Role Phone Luis Angel Flores Unavailable [phone] MarkLuis Angel Primary Care Provider [phone] Allergies Active Allergy Reactions Criticality Noted Date Comments Aspirin 07/10/2010 Cefaclor 07/10/2010 Codeine GI Upset 12/20/2010 Converted from Generic Allergy: Codeinenausea/dyspepsia nausea/dyspepsia Penicillins 07/10/2010 Tvhfyhd-Fqhbvcohgz-Ecisuag *Unknown 1 Medications Medication Sig Dispensed Refills [...] Protocol After Arrest Oc curs Care Teams Metal Polisher And Buffer Apprentice Relationship Specialty Start Date End Date Luis Angel Flores [address] [place] [address] PCP - General Family Practice 06/15/20 Luis Angel Flores [facility] 03/02/14
--- OUTSIDE RECORDS SUMMARY | 2024-03-04 05:14 | XMS_ITS | Patient Health Record ---
Author Organization [facility] Address [address] [place] [address] Care Team Providers Care Molasses And Caramel Operator Name Role Phone Rogelio Flores Primary Care Provider Jose Martin Maria Unavailable [phone] ALLERGIES Allergen (clinical drug ingredient) Drug/Non Drug [...] UREA NITROGEN (BUN) CREATININE 0.36 eGFR NON-AFR. 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 Banks-Gastaut syndrome, refractory (740834552872436) Problem Other cerebrovascular disease (I67.89) Active confirmed Cerebrovasc ular disease (69472226) Problem Encounter for attention to gastrostomy (Z43.1) Active confirmed Attention to gastrostomy (158025690) Problem Other ocean transportation intermediary (current) drug therapy (Z79.899) Active confirmed Long-term current use of drug therapy (212710879) VITAL SIGNS Height-cm 151 cm 08/11/2023 Weight 60 kg 08/11/2023 BMI 26.31 kg/m2 08/11/2023 Encounters Encounter Location Date Provider Diagnosis [facility] [address] [place] [address] 08/11/2023 Jose Martin White Ayaan-Gastaut syndrome, intractable, 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 and Other ocean transportation intermediary (current) drug therapy Z79.899 [facility] [address] [place] [address] 04/29/2023 [facility] [address] [place] [address] 06/03/2023 Jose Martin White [facility] [address] [place] [address] 06/24/2023 [facility] [address] [place] [address] 06/24/2023 [facility] [address] [place] [address] 07/21/2023 [facility] [address] [place] [address] 07/22/2023 Jose Martin White Ayaan-Gastaut syndrome, intractable, 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 [facility] [address] [place] [address] 08/11/2023 Jose Martin White [facility] [address] [place] [address] 08/20/2023 Jose Martin White Banks-Gastaut syndrome, intractable, 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 [facility] [address] [place] [address] 08/24/2023 Jose Martin Eaton Ayaan-Gastaut syndrome, intractable, 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 [facility] [address] [place] [address] 10/18/2023 Jose Martin White Banks-Gastaut syndrome, intractable, 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 [facility] [address] [place] [address] 10/18/2023 Jose Martin Eaton Ayaan-Gastaut syndrome, intractable, 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 [facility] [address] [place] [address] 10/18/2023 Jose Martin Eaton Banks-Gastaut syndrome, intractable, 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 [facility] [address] [place] [address] 01/18/2024 Jose Martin Eaton [facility] [address] [place] [address] 01/25/2024 Jose Martin Eaton Banks-Gastaut syndrome, intractable, 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 [facility] [address] [place] [address] 01/31/2024 Jose Martin Eaton Ayaan-Gastaut syndrome, intractable, 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 and Other jail (current) drug therapy Z79.899 [facility] [address] [place] [address] 02/03/2024 Jose Martin Eaton [facility] [address] [place] [address] 02/14/2024 Jose Martin Eaton Ayaan-Gastaut syndrome, intractable, 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 [facility] [address] [place] [address] 03/03/2024 Jose Martin Eaton ASSESSMENTS Encounter Date Diagnosis Assessment Notes Treatment Notes Treatment Clinical Notes 07/22/2023 Ayaan-Gastaut syndrome, intractable, without status epilepticus (ICD-10 - G40.814) 08/11/2023 Banks-Gastaut syndrome, intractable, without status epilepticus (ICD-10 - G40.814) 08/20/2023 Ayaan-Gastaut syndrome, intractable, without status epilepticus (ICD-10 - G40.814) 08/24/2023 Ayaan-Gastaut syndrome, intractable, without status epilepticus (ICD-10 - G40.814) 10/18/2023 Banks-Gastaut syndrome, intractable, without status epilepticus (ICD-10 - G40.814) 10/18/2023 Ayaan-Gastaut syndrome, intractable, without status epilepticus (ICD-10 - G40.814) 10/18/2023 Ayaan-Gastaut syndrome, intractable, without status epilepticus (ICD-10 - G40.814) 01/25/2024 Banks-Gastaut syndrome, intractable, without status epilepticus (ICD-10 - G40.814) 01/31/2024 Ayaan-Gastaut syndrome, intractable, without status epilepticus (ICD-10 - G40.814) 01/31/2024 Other jail (current) drug therapy (ICD-10 - Z79.899) 02/14/2024 Banks-Gastaut syndrome, intractable, without status epilepticus (ICD-10 - G40.814) 08/11/2023 Other ocean transportation intermediary (current) drug therapy (ICD-10 - Z79.899) PLAN OF TREATMENT Pending Test Test Name Order Date COMPREHENSIVE METABOLIC PANEL 05/14/2022 CBC (INCLUDES DIFF/PLT) 05/14/2022 CLOBAZAM 05/14/2022 FELBAMATE 05/14/2022 LAMOTRIGINE 05/14/2022 LEVETIRACETAM 05/14/2022 RUFINAMIDE 05/14/2022 Next Appt Details Provider Name:Jose Martin Eaton, 03/08/2024 01:00:00 PM, [address] [facility] [address], [place], [address], Insurance Providers Payer Name Payer Address Payer Phone Subscriber Number Group Number Insured Name Patient Relationship to Insured Coverage Start Date Coverage End Date MEDICARE [place] [address] ROCHELLE Thornton [id number] aSy Hilario Self - patient is the insured 2 MEDICAID [place] [facility] [address] [address] [place] [address] [id number] Say Hilario Self - patient is the insured MEDICAL (GENERAL) HISTORY Medical History History ICD Code Static encephalopathy Lymphoblastic leukemia, now in remission . History of chronic hiccups. Gastrointestinal reflux/gastrointestinal ulcers. Status post lateral medullary stroke. Surgical History Surgery Date(Month/Year) Status post gastrostomy tube placement. Hospitalization History Reason Date(Month/Year) pneumonia 07/2020 At [facility] for seizures 09/27/18 None in the past six months
--- OUTSIDE RECORDS SUMMARY | 2024-03-04 05:15 | XMS_ITS | Clinical Summary ---
Author Organization [facility] Address [address] [place] [address] Care Team Providers Care Positive Printer Operator Name Role Phone Elsewhere, Pcp Primary Care Provider Unavailabl e Source Comments Patient records contain information from all sites at [facility]. For routine questions regarding patient records, call [phone] during business hours, M-F 8:00 AM - 5:00 PM Central Time. Record requests for emergency care only can be directed to [phone] at any time.[facility] Allergies Active Allergy Reactions Criticality Noted Date Comments Amoxicillin-Pot Clavulanate Other (see comments) High 07/01/2020 Acute generalized exanthematous pustulosis (severe cutaneous adverse reaction) noted 07/01/2020. Augmentin/ Amoxicillin use contraindicated. Camphor Other (see comments) 12/20/2010 Converted from Generic Allergy: Eucalyptus/Menthol/Campho r Lnednid-Nbrtqcrpyv-Z enthol Other (see comments) 12/01/2020 Cefaclor Other (see comments) 02/17/2010 Converted from Generic Allergy: Cefaclorleukopenia leukopenia Euc Rgx-Qwkx-Dam,Rosem Oils-Pt Rash 05/14/2022 Levofloxacin Rash 05/14/2022 Penicillin [...] into each nostril daily. 49 g 3 8 Suspended Additional Information DIASTAT ACUDIAL 12.5-15-17.5-20 mg rectal kit Insert 20 mg into the rectum as needed for seizures (if having more than 10 generalized tonic-clonic seizures per hour or if seizure lasts more than 3 minutes, may repeat once. if seizures continue, call 911). 8 Suspended acetaminophen (TYLENOL) 325 mg tablet 1,000 mg by g-tube route every 6 (six) hours as needed. 02/29/20 24 Discontinued albuterol (ACCUNEB) 2.5 mg /3 mL nebulizer solution Inhale 2.5 mg every 6 (six) hours as needed for wheezing. 0 Suspended cloBAZam (ONFI) 10 mg tablet 15 mg by g-tube route every morning. 0 Suspended ibuprofen (ADVIL,MOTRIN) 600 mg tablet 600 mg by g-tube route every 8 (eight) hours as needed for pain. Suspended levocetirizine (XYZAL) 5 mg tablet 5 mg by gastric tube route every evening. Suspended rufinamide (BANZEL) 400 mg tablet 400 mg by g-tube route at bedtime. Suspended cloBAZam (ONFI) 10 mg tablet Take 10 mg by mouth at bedtime. Suspended levETIRAcetam (KEPPRA) 100 mg/mL solution Administer 1,600 mg via gastric tube at bedtime. Suspended diazePAM (VALIUM) 10 mg tablet 1 tablet (10 mg total) by g-tube route 3 (three) times a day as needed (seizures). 30 tablet 0 Suspended Additional Information bacitracin 500 unit/gram ointment Apply 1 Application topically as needed (redness, inflammation on skin). Suspended LORazepam (ATIVAN) 2 mg tablet Administer 2 mg via gastric tube daily as needed (seizures, agitation). Suspended baclofen (LIORESAL) 20 mg tablet TAKE 1 TABLET (20MG) PER G-TUBE FOUR TIMES A DAY. DO NOT EXCEED 80MG PER DAY. 1 Suspended LaMICtaL 100 mg tablet Take 100 mg by mouth 3 (three) times a day. 350 mg morning, 350 mg at 2pm, 300 mg at bedtime. (has both 100 mg & 200 mg for the total of 350mg and 300 mg doses) 1 Suspended haloperidol (HALDOL) 2 mg/mL concentrated solution Take 1 mg by mouth 4 (four) times a day as needed for agitation. 0 Suspended bisacodyL (DULCOLAX) 10 mg suppository Insert 10 mg into the rectum daily as needed for constipation (if no results from AM miralax). 3 Suspended felbamate (FELBATOL) 600 mg/5 mL suspension Take 1,500 mg by mouth every morning before breakfast. Suspended felbamate (FELBATOL) 600 mg/5 mL suspension Take 1,200 mg by mouth 2 (two) times a day. At 1400 and 2100 Suspended ipratropium-albut Chencho (DUONEB) 0.5-2.5 mg/3 mL nebulizer solution Inhale 3 mL by nebulization 4 (four) times a day as needed for shortness of breath. 2 Suspended ketoconazole (NIZORAL) 2 % cream Apply 1 Application topically 2 (two) times a day as needed for irritation or rash. 1 Suspended levETIRAcetam (KEPPRA) 100 mg/mL solution Administer 1,500 mg via gastric tube every morning. Suspended magnesium hydroxide (MILK OF MAGNESIA) 400 mg/5 mL suspension Administer 30 mL via gastric tube daily as needed (if needed for constipation If no results from Miralax, Dulcolax Sup, Fleet, and Mineral Oil enemas.). 3 Suspended diphenhydramine-l idocaine-antacid (MAGIC MOUTHWASH) 1:1:1 Swish and spit 15 mL every 4 (four) hours as needed. Suspended levETIRAcetam (KEPPRA) 100 mg/mL solution Administer 200 mg via gastric tube 3 (three) times a day as needed (seizures). Suspended clotrimazole-beta methasone (LOTRISONE) 1-0.05 % cream Apply 1 Application topically 2 (two) times a day as needed (rash or concerns for yeast infection). Apply to affected areas. Suspended nystatin-triamcin olone (MYCOLOG II) 100,000 Unit/g-0.1 % cream Apply 1 Application topically 2 (two) times a day as needed (fungal infection). Apply to affected areas. Suspended olopatadine (PATADAY) 0.2 % ophthalmic solution Administer 1 drop into both eyes 4 (four) times a day as needed for allergies (redness). Suspended silver sulfADIAZINE (SILVADENE, SSD) 1 % cream Apply 1 Application topically daily as needed for wound care. Apply to skin break down in groin. Suspended zinc oxide 40 % ointment Apply 1 g topically 2 (two) times a day. Apply to GT site for skin protectant. Suspended simethicone (MYLICON,GAS-X) 125 mg capsule Take 125 mg by mouth every 6 (six) hours as needed for flatulence (bloating). Suspended torsemide (DEMADEX) 10 mg tablet Administer 10 mg via gastric tube daily as needed (edema). Suspended cannabidioL (EPIDIOLEX) 100 mg/mL solution Administer 400-600 mg via gastric tube 2 (two) times a day. 400 mg AM, 600 mg PM Suspended azelastine (ASTEPRO) 205.5 mcg/spray (0.15 %) nasal spray Administer 1 spray into each nostril daily. 11 mL 3 Suspended Additional Information hydrocortisone (HYTONE) 2.5 % cream Apply 1 Application topically daily as needed (itching). 20 g 3 Suspended Additional Information clotrimazole (FUNGI CURE) 1 % external solution Apply 1 Application topically daily as needed (rash on head). 15 mL 3 Suspended Additional Information pseudoephedrine (Sudafed) 30 mg tablet Take 30 mg by mouth every 6 (six) hours as needed for congestion. 2 Suspended acetic acid 0.25 % irrigation (sterile) Irrigate with as directed 2 (two) times a day. For groin to perirectal/perine al area. 1000 mL 3 Suspended Additional Information zinc oxide (DESITIN) 13 % cream Apply 1 Application topically as needed (skin cares). Apply to irritated perineal/jennifer-rec paddy skin. 136 g 3 Suspended Additional Information nystatin (MYCOSTATIN) 100,000 unit/gram cream Apply 1 Application topically 2 (two) times a day. Apply to groin irritation. 30 g 3 Suspended Additional Information nystatin (NYSTOP) 100,000 unit/gram powder Apply 1 Application topically 3 (three) times a day. Apply to groin irritation. 60 g 3 Suspended Additional Information multivitamin with minerals liquid 10 mL by g-tube route. 2 Suspended gabapentin (NEURONTIN) 300 mg capsule Take 300 mg by mouth 3 (three) times a day as needed (pain). 1 Suspended loperamide (IMODIUM A-D) 1 mg/7.5 mL liquid Take 15 mL by mouth daily as needed. 3 Suspended benzoyl peroxide (BREVOXYL) 4 % external liquid Apply 1 Application topically. Suspended clindamycin (CLEOCIN T) 1 % external solution Apply 1 Application topically. 1 Suspended mineral oil enema Insert 1 enema into the rectum daily as needed. 3 Suspended polyethylene glycol (MIRALAX) 17 gram/dose oral powder Administer 17 g via gastric tube daily as needed for constipation. 510 g 3 Suspended Additional Information silver nitrate (ARZOL) 75-25 % topical stick Apply 1 Application topically as needed (for treatment of granulation tissue). Use every 3-4 days as needed as educated by HEN nurse 100 Stick 3 06/24/20 24 Suspended Additional Information zaleplon (SONATA) 5 mg capsule Take 1 capsule (5 mg total) by mouth See Admin Instructions. Take as needed, if unable to sleep during sleep study. May repeat if needed. Allow a minimum of 4 hours prior to driving after last dose. If drowsy after sleep study do not drive until adequately alert. 2 capsule 3 02/29/20 24 Discontinued naloxone (NARCAN) 4 mg/actuation nasal spray Administer 1 spray (4 mg total) into one nostril as needed for reversal. Use 1 spray in 1 nostril. Repeat with second device in other nostril after 2-3 minutes if no or minimal response. 2 each 4 Suspended Additional Information lamoTRIgine (LaMICtaL) 200 mg tablet Administer 1 tablet (200 mg total) via gastric tube 3 (three) times a day. 350 mg morning, 350 mg at 2pm, 300 mg at bedtime. (has both 100 mg & 200 mg for the total of 350mg and 300 mg doses 270 tablet 3 4 12/30/19 25 Suspended Additional Information rufinamide (BANZEL) 200 mg tablet Administer 1 tablet (200 mg total) via gastric tube every morning. 90 tablet 3 4 12/30/19 25 Suspended Additional Information HYDROcodone-aceta minophen (NORCO) 10-325 mg per tabletIndications :Chronic Pain/Nonacute Pain Take 0.5 tablets by mouth every 6 (six) hours as needed for severe pain or score 7-10 of 10 Indication: Chronic Pain/Nonacute Pain. 4 Suspended Additional Information nystatin (NYSTOP) 100,000 unit/gram powder Apply 1 Application topically 3 (three) times a day. Apply to areas of intertrigo 60 g 4 Suspended Additional Information nystatin (NYSTOP) 100,000 unit/gram powder Apply 1 Application topically 3 (three) times a day. Apply to areas of intertrigo 60 g 4 Suspended Additional Information nystatin (MYCOSTATIN) 100,000 unit/gram cream Apply 1 Application topically 2 (two) times a day. Apply to areas of intertrigo 30 g 4 Suspended Additional Information acetaminophen (TYLENOL) 650 mg/20.3 mL solution Administer 650 mg via gastric tube every 6 (six) hours as needed for pain, fever or mild pain or score 1-3 of 10. Suspended esomeprazole (NexIUM) [address] capsule Take 20 mg by mouth every morning before breakfast. Suspended oxyBUTYnin (DITROPAN XL) 15 mg 24 hr tablet Take 15 mg by mouth daily. Suspended zolpidem (AMBIEN) 5 mg tablet Take 5 mg by mouth at bedtime as needed for sleep. 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 Acute Respiratory Failure With Hypoxia 4 Change Mental Status 12/27/2023 Apnea Sleep Obstructive [...] 12/01/2020 Dysphagia 06/26/2020 Aftercare Feeding Tube 06/26/2020 Pneumonia 06/25/2020 Overgrowth Bacterial Small Bowel 06/19/2020 Ayaan Gastaut [...] Hypoxia Sleep Related 06/27/20202019 Hypokalemia 06/27/2020 06/30/2020 Encounters Date Type Department Care Team Description 03/03/2024 10:15 PM CDT Ancillary Procedure Department of Nursing Arrived 03/01/2024 12:20 PM CDT Ancillary Procedure Department of Nursing Arrived 02/29/2024 9:00 AM CDT Ancillary Procedure Department of Nursing 02/29/2024 8:55 AM CDT Ancillary Procedure Department of Nursing 02/29/2024 6:00 AM CDT Ancillary Procedure Department of Radiology in [place], [place] [address] [place] [address] Erasmo Lloyd APRN, C.N.P., D.N.P. 02/28/2024 4:50 PM CDT Ancillary Procedure Department of Nursing 02/28/2024 3:50 PM CDT Ancillary Procedure Department of Nursing 02/28/2024 2:51 PM CDT - Present Hospital Encounter [facility], [facility], Sixth Floor [address] [place] [phone] Wes Person M.B.BMayS. Acute Respiratory Failure With Hypoxia (HCC) (Primary Dx); Aspiration Pneumonia Secondary to Procedure 02/28/2024 Intake [facility] 02/02/2024 10:40 AM CDT - 02/02/2024 11:59 PM CDT Hospital Encounter Department of Laboratory Medicine in [place] [address] [place] [address] Jose Martin Eaton M.D. 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 Snoring (Primary Dx); Hypoxemia; Stroke Cerebrovascular Accident Personal History 12/30/2023 Orders Only Department of Nutrition and Diabetes Education in [place], [place] [address] [place] [phone] Na Brennan, SHAYY, LD Ayaan Gastaut Syndrome (HCC) (Primary Dx); Gastrojejunostomy Percutaneous Status Post ; Dietary Counseling And Surveillance For Enteral Nutrition 12/29/2023 12:52 PM CDT Anesthesia Event Division of Gastroenterology in [address] [phone] Cruz Edmonds APRN, EMBRYOLOGY TEACHER 12/29/2023 11:05 AM CDT - 12/29/2023 11:59 PM CDT Hospital Encounter Department of Radiology, [facility], in [place], [place] [address] [place] [phone] Pedro Pablo Kline M.D. Discharge Disposition: Home or Self Care 12/27/2023 12:50 AM CDT Ancillary Procedure Department of Pulmonary and CC Medicine 12/27/2023 Orders Only [facility] in [place], [place] [address] [place] [phone] Srinath Rodriguez M.D. 12/26/2023 4:16 PM CDT - 12/30/2023 12:14 PM CDT Hospital Encounter [facility], [facility], [facility], Sixth Floor [address] [place] [phone] Jamia Lozano M.D. Andria Sahffer M.B.B.S., M.D. Wes Person M.B.B.S. Feliciano Alejandre M.D., Ph.D. Pneumonia (Primary Dx); Sepsis (HCC); Aftercare Feeding Tube; Dehydration; Diarrhea; Acidosis Lactic; Dysphagia Oropharyngeal Phase [R13.12] Discharge Disposition: Home or Self Care 12/26/2023 Nurse Triage Department of Family Medicine, [facility], in [place], [place] [address] [place] [address] Poonam Jasmine R.N. Vomiting; Tube Problem 12/20/2023 Documentation Division of Endocrinology in [place], [place] [address] [place] [phone] Anastasia Chaney RHarika. Scheduling 12/20/2023 Orders Only Division of Endocrinology in [place], [place] [address] [place] [phone] Anastasia Chaney RHarika. Dietary Counseling And Surveillance For Enteral Nutrition (Primary Dx) 12/20/2023 Clinical Communication Division of Endocrinology in [place], [place] [address] [place] [phone] Provider, Unknown Follow-up Orders from Last 3 [...] Heart failure Grandmother maternal Arthritis Maternal Grandfather champ timothy Coronary artery disease Maternal Grandmother Champ josef painter Depression Maternal Grandmother Champ edward Hypertension Maternal Grandmother Champ edward Sleep apnea Maternal Grandmother Champ edward Transient ischemic attack Maternal Grandmother Champ conchitau chinocencio Anemia Mother Ke hilario Anxiety disorder Mother Ke hilario Hyperlipidemia Mother Ke hilario Leukemia Mother Ke hilario Migraines Mother Ke hilario Diabetes Paternal Grandfather Suleman timothy Stroke Paternal Grandfather Suleman timothy Dementia Paternal Grandmother shauna hilario Gestational diabetes Sister 1 neeta hilario Thyroid disease Sister 2 etta a yanelis Relation Name Status Comments Daughter neeta hilario Father etta a yanelis Grandfather Grandmother maternal Maternal Grandfather champ timothy Maternal Grandmother Champ [place] Mother Ke hilario Paternal Grandfather Suleman timothy Paternal Grandmother shauna hilario Sister 1 neeta hilario Sister 2 etta a yanelis Social History Tobacco Use Types Packs/Day Years Used Date Smoking Tobacco: Never Smokeless Tobacco: Never Alcohol Use Standard Drinks/Week Comments Never 0 (1 standard drink = 0.6 oz pur e alcohol) [facility] Utilities Answer Date Recorded In the past 12 months has e [employer], gas, oil, or water [employer] threatened to shut off services in your home? Patient unable to answer 03/03/2024 Humiliation, Afraid, Rape, a nd Kick questionnaire Answer Date Recorded Within the last year, have y ou been afraid of your partner or ex-partner? Patient unable to answer 03/03/2024 Within the last year, have y ou been humiliated or emotionally abused in other ways by your partner or ex-partner? Patient unable to answer 03/03/2024 Within the last year, have y ou been kicked, hit, slapped, or otherwise physically hurt by your partner or ex-partner? Patient unable to answer 03/03/2024 Within the last year, have y ou been raped or forced to have any kind of sexual activity by your partner or ex-partner? Patient unable to answer 03/03/2024 Social Connection and Isolation Panel [NHANES] A nswer Date Recorded In a typical week, how many times do you talk on the phone with family, friends, or neighbors? Never 12/11/2021 How often do you get togethe r with friends or relatives? Patient declined 12/11/2021 How often do you attend adventism or baptism serv ices? Patient declined 12/11/2021 Do you belong to any clubs o r organizations such as adventism groups, unions, fraternal or athletic groups, or [...] heating? Not hard at all 12/11/2021 [facility] Occupat ional Health - Occupational Stress [...] you got the money to buy more. Patient unable to answer 03/03/2024 Within the past 12 months, t he food you bought just didn't last and you didn't have money to get more. Patient unable to answer 03/03/2024 PRAPARE - Transportation Answer Date Re corded In the past 12 months, has l ack of transportation kept you from medical appointments or from getting medications? Patient unable to answer 03/03/2024 In the past 12 months, has l ack of transportation kept you from meetings, work, or from getting things needed for daily living? Patient unable to answer 03/03/2024 Nutrition Answer Date Recorded On average, how many serving s of fruits and vegetables do you eat per day (serving size is equal to 1 cup or approximately the size of a tennis ball)? 3-5 03/10/2023 Dental Answer Date Recorded Dental: Regular Dentist Yes 11/01/19 Employment Answer Date Recorded Employment status N/A 12/11/2021 Housing Stability Answer Date Recorded What is your living situation today? Patient jimmie ble to answer 03/03/2024 Sex and Gender Information Value Date Recorded Sex Assigned at Male 12/11/2021 2:11 PM CDT Gender Identity Male 12/11/2021 1:44 PM CDT Sexual Orientation Straight 12/11/2021 2: 11 PM CDT Last Filed Vital Signs Vital Sign Reading Time Taken Comments Blood Pressure 93/49 03/02/2024 7:45 AM CDT Pulse 97 03/04/2024 5:00 AM CDT Temperature 37 ??C (98.6 ??F) 03/04/2024 4:00 AM CDT Respiratory Rate 15 03/04/2024 5:00 AM CDT Oxygen Saturation 96% 03/04/2024 5:00 AM CDT Inhaled Oxygen Concentration - - Weight 69.5 kg (153 lb 3.5 oz) 03/04/2024 12:00 AM CDT Height 156 cm (5' 1.42) 03/01/2024 8:38 AM CDT Body Mass Index 28.56 03/01/2024 8:38 AM CDT Plan of Treatment Health Maintenance Due Date Last Done Comments HIV Screening 1980 Hepatitis C Screening 1980 Lipid (Cholesterol) Screening 1980 Hepatitis A Vaccines (1 of 2 - Risk 2-dose series) 02/15/1999 Hepatitis B Vaccines (1 of 3 - 19+ 3-dose series) 02/15/1999 DTaP,Tdap,and Td Vaccines (8 - Td or Tdap) 07/10/2020 07/10/2010, 07/07/2010, 02/11/1991, Additional history exists COVID-19 Vaccine (2022- season) 2023 04/28/2022, 06/11/2021, 12/18/2020, Additional history exists Influenza Vaccine (#1) 2023 , 06/04/2021, 05/28/2020, Additional history exists Depression Screening (Annual PHQ-2) 09/13/2023 Creatinine Level (Kidney Function Test) 03/04/2025 03/04/2024, 03/03/2024, 03/02/2024, Additional history exists Potassium Level 03/04/2025 03/04/2024, 02/12, 03/02/2024, Additional history exists Sodium Level 03/04/2025 03/04/2024, 02/12, 03/02/2024, Additional history exists Pneumococcal vaccine (0-64 years) Aged Out 01/13/2016, 09/20/2006 No longer eligibl e based on patient's age to complete this topic Glucose Test for Med Monitoring Discontinued 03/04/2024, 03/03/2024, 03/03/2024, Additional history exists HPV Vaccines Aged Out No longer eligi ble based on patient's age to complete this topic Medical Devices Implanted Type Area [employer] Device Identifier Shelf Expiration Date Model / Serial / Lot Stnt Uret Inl 6fx24 - Sna - [id number] Implanted:Qty : 1 on 04/05/2023 by Erika Londono M.D. at [facility] Ureteral Stent [employer] [id number] 04/28/2027 [id number] / NA / [id number] Explanted Type [employer] Device Identifier Shelf Expiration Date Model / Serial / Lot Stnt Uret Inl 7fx24 - [id number] Implanted:Qty : 1 on 02/22/2023 by Danita Munoz M.D. at [facility] Explanted:Qty : 1 on 04/05/2023 by Erika Londono M.D. Ureteral Stent Left: Ureter [employer] [id number] 08/06/2026 [id number] / / [id number] Procedures The patient is currently admitted. The information in this section might not be complete until the patient is discharged. Procedure Name Priority Date/Time Associated Diagnosis Comments PHOSPHORUS (INORGANIC), S Routine 03/04/2024 3:27 AM CDT CBC WITHOUT DIFFERENTIAL, B Routine 03/04/2024 3:27 AM CDT BASIC METABOLIC PANEL, S/P Routine 03/04/2024 3:27 AM CDT NURSING IMAGE EXAM Routine 03/03/2024 10:15 PM CDT GLUCOSE POCT, B Routine 03/03/2024 8:48 PM CDT GLUCOSE POCT, B Routine 03/03/2024 5:23 PM CDT GLUCOSE POCT, B Routine 03/03/2024 12:23 PM CDT GLUCOSE POCT, B Routine 03/03/2024 7:38 AM CDT CBC WITHOUT DIFFERENTIAL, B Routine 03/03/2024 4:03 AM CDT BASIC METABOLIC PANEL, S/P Routine 03/03/2024 4:03 AM CDT MECHANICAL VENTILATOR Routine 03/03/2024 3:00 AM CDT MECHANICAL VENTILATOR Routine 03/02/2024 11:01 PM CDT GLUCOSE POCT, B Routine 03/02/2024 9:59 PM CDT AIRWAY CARE Routine 03/02/2024 8:00 PM CDT ADULT OXYGEN THERAPY Routine 03/02/2024 8:00 PM CDT MECHANICAL VENTILATOR Routine 03/02/2024 7:00 PM CDT PATIENT STATUS, ABG STAT 03/02/2024 5 :15 PM CDT ABG W/O COOX STAT 03/02/2024 5:15 PM CDT GLUCOSE POCT, B Routine 03/02/2024 5:13 PM CDT MECHANICAL VENTILATOR Routine 03/02/2024 3:00 PM CDT DX CHEST PORTABLE POST-PICC PLACEMENT 1 VIEW RAD - Emergent (Fastest; for the most critically ill patients) 03/02/2024 1:36 PM CDT DX ABDOMEN PORTABLE ANTERIOR POSTERIOR 1 VIEW RAD - Emergent (Fastest; for the most critically ill patients) 03/02/2024 1:36 PM CDT AMMONIA Routine 03/02/2024 12:50 PM CDT GLUCOSE POCT, B Routine 03/02/2024 12:[address] PERIPHERALLY INSERTED CENTRAL CATHETER (PICC) Routine 03/02/2024 11:59 AM CDT LEVETIRACETAM LEVEL, S Routine 03/02/2024 11:18 AM CDT LAMOTRIGINE LEVEL, S Routine 03/02/2024 11:18 AM CDT FELBAMATE (FELBATOL) LEVEL, S Routine 03/02/2024 11:18 AM CDT MECHANICAL VENTILATOR Routine 03/02/2024 11:00 AM CDT CBC WITHOUT DIFFERENTIAL, B STAT 03/02/2024 10:[address] HEAD WITHOUT IV CONTRAST RAD - Routine (most inpatients and all outpatients) 03/02/2024 9:50 AM CDT AIRWAY CARE Routine 03/02/2024 8:01 AM CDT ADULT OXYGEN THERAPY Routine 03/02/2024 8:01 AM CDT GLUCOSE POCT, B Routine 03/02/2024 7:49 AM CDT MECHANICAL VENTILATOR Routine 03/02/2024 7:01 AM CDT AIRWAY CARE Routine 03/02/2024 6:51 AM CDT AIRWAY CARE Routine 03/02/2024 6:51 AM CDT AIRWAY CARE Routine 03/02/2024 6:51 AM CDT PATIENT STATUS, ABG Routine 03/02/2024 3 :46 AM CDT ABG W/O COOX Routine 03/02/2024 3:46 AM CDT COMPREHENSIVE METABOLIC PANEL, S/P Routine 03/02/2024 3:46 AM CDT CBC WITHOUT DIFFERENTIAL, B Routine 03/02/2024 3:46 AM CDT CYSTATIN C WITH EGFR Routine 03/02/2024 3:42 AM CDT MECHANICAL VENTILATOR Routine 03/02/2024 3:00 AM CDT CELL COUNT AND DIFFERENTIAL, BROCHOALVEOLAR LAVAGE Routine 03/02/2024 2:38 AM CDT LEGIONELLA AG, U Routine 03/02/2024 12:44 AM CDT STREPTOCOCCUS PNEUMONIAE AG, U Routine 03/02/2024 12:44 AM CDT DX CHEST PORTABLE 1 VIEW RAD - Emergent (Fastest; for the most critically ill patients) 03/01/2024 11:18 PM CDT DX ABDOMEN PORTABLE ANTERIOR POSTERIOR 1 VIEW RAD - Emergent (Fastest; for the most critically ill patients) 03/01/2024 11:18 PM CDT PATIENT STATUS, ABG STAT 03/01/2024 11:08 PM CDT ABG W/O COOX STAT 03/01/2024 11:08 PM CDT BACTERIA / CHRISTOPHER CULTURE, BLOOD Routine 03/01/2024 11:08 PM CDT CYSTATIN C WITH EGFR STAT 03/01/2024 11:07 PM CDT BACTERIA / CHRISTOPHER CULTURE, BLOOD Routine 03/01/2024 11:07 PM CDT MECHANICAL VENTILATOR Routine 03/01/2024 11:01 PM CDT MC ANE INVASIVE CATHETER Routine 03/01/2024 10:55 PM CDT RI BRONCHOSCOPY W ALVEOLAR LAVAGE Routine 03/01/2024 10:30 PM CDT Acute Respiratory Failure With Hypoxia (HCC) Aspiration Pneumonia Secondary to Procedure MECHANICAL VENTILATOR Routine 03/01/2024 10:28 PM CDT MECHANICAL VENTILATOR Routine 03/01/2024 10:28 PM CDT MECHANICAL VENTILATOR Routine 03/01/2024 10:28 PM CDT MECHANICAL VENTILATOR Routine 03/01/2024 10:28 PM CDT MECHANICAL VENTILATOR Routine 03/01/2024 10:28 PM CDT MECHANICAL VENTILATOR Routine 03/01/2024 10:28 PM CDT MECHANICAL VENTILATOR Routine 03/01/2024 10:28 PM CDT INTUBATION Routine 03/01/2024 10:28 PM CDT LDA ANE ENDOTRACHEAL AIRWAY Routine 03/01/2024 10:00 PM CDT Acute Respiratory Failure With Hypoxia (HCC) RI INTUB W ETT Routine 03/01/2024 10:00 PM CDT Acute Respiratory Failure With Hypoxia (HCC) PATIENT STATUS STAT 03/01/2024 9:02 PM CDT VENOUS BLOOD GAS W/O COOX STAT 03/01/2024 9:02 PM CDT DX CHEST PORTABLE 1 VIEW RAD - Emergent (Fastest; for the most critically ill patients) 03/01/2024 9:00 PM CDT PH BLOOD GAS STAT 03/01/2024 8:59 PM CDT TYPE AND SCREEN STAT 03/01/2024 8:59 PM CDT HEPATIC FUNCTION PANEL, S STAT 03/01/2024 8:59 PM CDT LACTATE, B/P STAT 03/01/2024 8:59 PM CDT CALCIUM, IONIZED, S/B STAT 03/01/2024 8:59 PM CDT PHOSPHORUS (INORGANIC), S STAT 03/01/2024 8:59 PM CDT MAGNESIUM, S STAT 03/01/2024 8:59 PM CDT BASIC METABOLIC PANEL, S/P STAT 03/01/2024 8:59 PM CDT CBC WITHOUT DIFFERENTIAL, B STAT 03/01/2024 8:59 PM CDT GLUCOSE POCT, B Routine 03/01/2024 8:53 PM CDT ADULT OXYGEN THERAPY Routine 03/01/2024 8:00 PM CDT GLUCOSE POCT, B Routine 03/01/2024 5:12 PM CDT CHEST PHYSIOTHERAPY Routine 03/01/2024 3 :35 PM CDT LACTATE, B/P STAT 03/01/2024 2:05 PM CDT (TTE) 2D ECHO DOPPLER COLOR AND CONTRAST Routine 03/01/2024 12:44 PM CDT NURSING IMAGE EXAM Routine 03/01/2024 12:20 PM CDT GLUCOSE POCT, B Routine 03/01/2024 11:57 AM CDT DX CHEST PORTABLE 1 VIEW RAD - Routine (most inpatients and all outpatients) 03/01/2024 9:56 AM CDT PATIENT STATUS, ABG STAT 03/01/2024 9 :51 AM CDT ABG W/O COOX STAT 03/01/2024 9:51 AM CDT GLUCOSE POCT, B Routine 03/01/2024 9:06 AM CDT CHEST PHYSIOTHERAPY Routine 03/01/2024 8 :18 AM CDT ADULT OXYGEN THERAPY Routine 03/01/2024 8:01 AM CDT CBC WITHOUT DIFFERENTIAL, B Routine 03/01/2024 4:33 AM CDT BASIC METABOLIC PANEL, S/P Routine 03/01/2024 4:33 AM CDT GLUCOSE POCT, B Routine 03/01/2024 12:15 AM CDT GLUCOSE POCT, B Routine 02/29/2024 10:56 PM CDT GLUCOSE POCT, B Routine 02/29/2024 10:28 PM CDT GLUCOSE POCT, B Routine 02/29/2024 9:40 PM CDT GLUCOSE POCT, B Routine 02/29/2024 9:11 PM CDT ADULT OXYGEN THERAPY Routine 02/29/2024 8:00 PM CDT GLUCOSE POCT, B Routine 02/29/2024 6:50 PM CDT GLUCOSE POCT, B Routine 02/29/2024 6:28 PM CDT GLUCOSE POCT, B Routine 02/29/2024 5:56 PM CDT GLUCOSE POCT, B Routine 02/29/2024 5:39 PM CDT GLUCOSE POCT, B Routine 02/29/2024 5:15 PM CDT GRAM STAIN Routine 02/29/2024 12:37 PM CDT BACTERIAL CULTURE, AEROBIC + SUSC, RESP Routine 02/29/2024 12:[address] CHEST ANGIOGRAM AND PULMONARY ARTERIES WITH IV CONTRAST RAD - Routine (most inpatients and all outpatients) 02/29/2024 12:22 PM CDT RESPIRATORY PANEL, PCR, BEVEL GEAR GENERATOR OPERATOR Routine 02/29/2024 9:12 AM CDT NURSING IMAGE EXAM Routine 02/29/2024 8: 57 AM CDT NURSING IMAGE EXAM Routine 02/29/2024 8: 55 AM CDT MRSA/STAPHYLOCOCCUS AUREUS, NASAL, BY PCR Routine 02/29/2024 8:05 AM CDT ADULT OXYGEN THERAPY Routine 02/29/2024 8:00 AM CDT INTERPRETATION OF OUTSIDE US VASCULAR RAD - Routine (most inpatients and all outpatients) 02/29/2024 6:05 AM CDT BASIC METABOLIC PANEL, S/P Routine 02/29/2024 4:48 AM CDT CBC WITHOUT DIFFERENTIAL, B Routine 02/29/2024 4:48 AM CDT GLUCOSE POCT, B Routine 02/28/2024 9:10 PM CDT ADULT OXYGEN THERAPY Routine 02/28/2024 8:00 PM CDT PATIENT STATUS, ABG STAT 02/28/2024 5 :45 PM CDT ABG W/O COOX STAT 02/28/2024 5:45 PM CDT NURSING IMAGE EXAM Routine 02/28/2024 4: 50 PM CDT ADULT OXYGEN THERAPY Routine 02/28/2024 4:25 PM CDT ADULT OXYGEN THERAPY Routine 02/28/2024 4:25 PM CDT NURSING IMAGE EXAM Routine 02/28/2024 3: 50 PM CDT PATIENT STATUS STAT 02/28/2024 3:30 PM CDT VENOUS BLOOD GAS W/O COOX STAT 02/28/2024 3:30 PM CDT CBC WITHOUT DIFFERENTIAL, B STAT 02/28/2024 3:29 PM CDT BASIC METABOLIC PANEL, S/P STAT 02/28/2024 3:29 PM CDT OUTSIDE US Routine 02/28/2024 11:50 AM CDT OUTSIDE DX CHEST Routine 02/28/2024 11:30 AM CDT LAMOTRIGINE LEVEL, S Routine 02/02/2024 11:03 AM CDT 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) HEPATIC FUNCTION PANEL, S Routine 02/02/2024 11:03 AM CDT Medication Therapy Longterm Not Anticoagulant CBC WITH DIFFERENTIAL, B Routine 02/02/2024 11:03 AM CDT Medication Therapy Longterm Not Anticoagulant FELBAMATE (FELBATOL) LEVEL, S Routine 02/02/2024 11:03 AM CDT 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) LEVETIRACETAM LEVEL, S Routine 02/02/2024 11:03 AM CDT 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) RUFINAMIDE, S Routine 02/02/2024 11:03 AM CDT 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 Hemoglobin 8.9(L) 13.2 - 16.6 g/dL 03/04/2024 3:48 AM CDT DTL Hematocrit 26.6(L) 38.3 - 48.6 % 03/04/2024 3:48 AM CDT DTL Erythrocytes 2.62(L) 4.35 - 5.65 x10(12)/L 03/04/2024 3:48 AM CDT DTL MCV 101.5(H) 78.2 - 97.9 fL 03/04/2024 3:48 AM CDT DTL RBC Distrib Width 14.1 11.8 - 14.5 % 03/04/2024 3:48 AM CDT DTL Platelet Count 159 135 - 317 x10(9)/L 03/04/2024 3:48 AM CDT DTL Leukocytes 6.5 3.4 - 9.6 x10(9)/L 03/04/2024 3:48 AM CDT DTL Blood (Blood, Venous) 03/04/2024 3:27 AM CDT 03/04/2024 3:42 AM CDT Ivory Paredes P.A.-C., M.S. LAB BLO OD ADD-ON Performing Organization Address [facility] [place] [address] * Phosphorus Inorganic (03/04/2024 3:27 AM CDT) Only the most recent of2 resultswithin the time period is included. Phosphorus (Inorganic), S 4.2 2.5 - 4.5 mg/dL 03/04/2024 4:21 AM CDT DTL Blood (Blood, Venous) 03/04/2024 3:27 AM CDT 03/04/2024 3:58 AM CDT Basil Miranda APRN, C.N.P. LAB BLOOD ADD-ON Performing Organization Address [facility] Co de Phone Number [facility] [address] [place] [address] * (ABNORMAL) Basic Metabolic Panel (03/04/2024 3:27 AM CDT) Only the most recent of10 resultswithin the time period is included. Potassium, S 4.5 3.6 - 5.2 mmol/L 03/04/2024 4:21 AM CDT DTL Sodium, S 135 135 - 145 mmol/L 03/04/2024 4:21 AM CDT DTL Chloride, S 101 98 - 107 mmol/L 03/04/2024 4:21 AM CDT DTL Bicarbonate, S 24 22 - 29 mmol/L 03/04/2024 4:21 AM CDT DTL Anion Gap 10 7 - 15 03/04/2024 4:21 AM CDT DTL BUN (Blood Urea Nitrogen), S 10 8 - 24 mg/dL 03/04/2024 4:21 AM CDT DTL Creatinine 0.51(L) 0.74 - 1.35 mg/dL 03/04/2024 4:21 AM CDT DTL Estimated GFR (eGFR) >90 >=60 mL/min/BSA 03/04/2024 4:21 AM CDT DTL Comment: Estimated GFR calculated using the 2020 CKD_EPI creatinine equation. Calcium, Total, S 8.6 8.6 - 10.0 mg/dL 03/04/2024 4:21 AM CDT DTL Glucose, S 100 70 - 140 mg/dL 03/04/2024 4:21 AM CDT DTL Blood (Blood, Venous) 03/04/2024 3:27 AM CDT 03/04/2024 3:58 AM CDT Ivory Paredes P.A.-C., M.S. LAB BLO OD ADD-ON [facility] [address] [place] [address], [facility] [address] [place] [address] * Buttock/Sacrum-Nursing Image Exam (03/03/2024 10:15 PM CDT) Only the most recent of6 resultswithin the time period is included. 03/03/2024 10:1 4 PM CDT Narrative IIMS - 03/03/2024 10:16 PM CDT This order has been created and auto-finalized to support the import of images acquired without order. The clinical documentation to support these images can be found on the encounter that produced images. Provider Not In System IMG NON RAD IMAGI NG PROCEDURES IIMS NA * Glucose, POCT (03/03/2024 8:48 PM CDT) Only the most recent of25 resultswithin the time period is included. Glucose, POCT, B 91 70 - 140 mg/dL 03/03/2024 8:49 PM CDT PCLX Site ARTLINE 03/03/2024 8:49 PM CDT PCLX Last Intake ContTubFdg 03/03/2024 8:49 PM CDT PCLX Blood 03/03/2024 8:48 PM CDT 03/03/2024 8:49 PM CDT Unknown Provider LAB POCT ORDERABLES- MANUAL Performing Organization Address City/[facility] Co de Phone Number POC [facility] [address] PCLX [facility] [address] [place] [address] * Patient Status (03/02/2024 5:15 PM CDT) Only the most recent of5 resultswithin the time period is included. Pathologist [facility] FIO2 0.30 0.21=AIR 03/02/2024 5:1 8 PM CDT STMA Device Vent 03/02/2024 5:1 8 PM CDT STMA Blood 03/02/2024 5:15 PM CDT 03/02/2024 5:18 PM CDT Gardenia Gordillo APRN C.N.P., M.S.N. LAB BLOOD NON ADD-ON Performing Organization Address City/[facility]/ZIP Co de Phone Number [facility] [address] [facility] [address] [place] [address] * Blood Gas without Coox, Arterial (03/02/2024 5:15 PM CDT) Only the most recent of5 resultswithin the time period is included. pO2 88 83 - 108 mm Hg 03/02/2024 5:21 PM CDT STMA pCO2 41 35 - 48 mm Hg 03/02/2024 5:21 PM CDT STMA pH 7.40 7.35 - 7.45 pH 03/02/2024 5:21 PM CDT STMA Base Excess 0 -2 - 3 mmol/L 03/02/2024 5:21 PM CDT STMA HCO3 25 22 - 26 mmol/L 03/02/2024 5:21 PM CDT STMA Arterial Sample Site Art Line 03/02/2024 5:18 PM CDT STMA Comment:Wilfredo's test not don e. Blood (Blood, Arterial) 03/02/2024 5:15 PM CDT 03/02/2024 5:18 PM CDT Girish Donald APRN.N.P., M.S.N. LAB BLOOD NON ADD-ON [facility] [address] [place] [address], [facility] [address] [place] [address] * DX Chest Portable Post PICC Placement 1 View (03/02/2024 1:36 PM CDT) Anatomical Region Laterality Modality Chest, Thoracic RST LOS, Tho racic ARZ LOS, Thoracic FLA LOS N/A Digital Radiography Impressions 03/02/2024 1:39 PM CDT Right PICC tip near the superior cavoatrial junction. Narrative 03/02/2024 1:39 PM CDT EXAM: ??DX CHEST PORTABLE POST-PICC PLACEMENT 1 VIEW Procedure Note Meena Groves M.D. - 03/02/2024 EXAM: DX CHEST PORTABLE POST-PICC PLACEMENT 1 VIEW IMPRESSION: Right PICC tip near the superior cavoatrial junction. Girish Donald APRN.N.P., M.S.N. IMG DIAGNOSTIC IMAGING PROCEDURES * DX Abdomen Portable Anterior Posterior 1 View (03/02/2024 1:36 PM CDT) Only the most recent of2 resultswithin the time period is included. Anatomical Region Laterality Modality Abdomen, Abdominal RST LOS, Abdominal ARZ LOS, Abdominal FLA LOS N/A Digital Radiography Impressions 03/02/2024 1:39 PM CDT Comparison is made to 03/01/2024. Again noted is gaseous dilatation of small bowel loops in the central abdomen and the transverse colon. Findings are most suggestive of adynamic ileus. Gastrostomy tube. Partially visualized airspace opacities in both lower lungs. ETT. Narrative 03/02/2024 1:39 PM CDT EXAM: ??DX ABDOMEN PORTABLE ANTERIOR POSTERIOR 1 VIEW Procedure Note Meena Groves M.D. - 03/02/2024 EXAM: DX ABDOMEN PORTABLE ANTERIOR POSTERIOR 1 VIEW IMPRESSION: Comparison is made to 03/01/2024. Again noted is gaseous dilatation ofsmall bowel loops in the central abdomen and the transverse colon.Findings are most suggestive of adynamic ileus. Gastrostomy tube.Partially visualized airspace opacities in both lower lungs. ETT. Girish Donald APRN.N.P., M.S.N. IMG DIAGNOSTIC IMAGING PROCEDURES * Ammonia (03/02/2024 12:50 PM CDT) Ammonia, P 27 <=30 mcmol/L 03/02/2024 1:36 PM CDT DTL Blood (Blood, Arterial) 03/02/2024 12:50 PM CDT 03/02/2024 1:06 PM CDT Girish Donald APRN.N.P., M.S.N. LAB BLOOD NON ADD-ON [facility] [address] [place] [address], [place] DTL [facility] [address] [place] [address] * Place peripherally inserted central catheter (PICC) (03/02/2024 11:59 AM CDT) Narrative MMODAL - 03/02/2024 11:59 AM CDT Elisa Chapman R.N. ? 03/02/2024 12:[address] peripherally inserted central catheter (PICC) Performed by: Elisa Chapman R.N. Authorized by: Tam Huang P.A.-C., M.S. ?? Care team members present 1. Elisa Chapman R.N. 2. Marylin White R.N. PROCEDURE DETAILS Select line: PICC ?? Line type: temporary (non-tunneled, non-implanted) Line size: 4.0 FR Adult or Adelfo/Peds: adult # of lumens: double lumen Type of catheter: power injectable and valved Laterality: right IV location: basilic Optimal site selected: yes ?? Number of insertion attempts: 1 Blood return: yes ?? Placement assistance: ECG guidance Tip verification: ECG Catheter length (cm): 38 Initial exposed catheter (cm): 0 Mid upper arm circumference (cm): 34 All lumens flushed (Document volume in I/O): yes ?? CONSENT Consent obtained: written (Risks, benefits and alternatives were discussed and a written Informed Consent was obtained. Please see Informed Consent form for further details.) UNIVERSAL PROTOCOL All relevant documentation and testing [...] confirmed in a procedural pause. PRE-PROCEDURE DETAILS Indications: ??Medication/nutrition requiring central access, insufficient peripheral access and frequent lab draws Appropriate hand hygiene, gown, cap, mask, protective eyewear, sterile gloves, skin preparation, sterile drape, and strict aseptic technique were utilized as applicable for the procedure.: yes ?? Site preparation: ??Chlorhexidine SEDATION / ANESTHESIA Anesthesia method: local infiltration Local infiltrate type: lidocaine POST-PROCEDURE DETAILS ?? Procedure completed successfully: yes ?? Complications: no apparent complications Tam Huang P.A.-C., M.S. PROCE DURE/MINOR SURGICAL ORDERABLES MMODAL NA * (ABNORMAL) Felbamate (Felbatol) Level (03/02/2024 11:18 AM CDT) Only the most recent of2 resultswithin the time period is included. Felbamate (Felbatol), S 246.2(H) 30.0 - 80.0 mcg/mL 03/03/2024 3:14 PM CDT [facility] Comment: ----ADDITIONAL INFORMATION---- This test was developed and its performance characteristics determined by [facility] in a manner consistent with CLIA requirements. This test has not been cleared or approved by the U.S. Food and Drug Administration. Blood (Blood, Arterial) 03/02/2024 11:18 AM CDT 03/02/2024 6:03 PM CDT Gardenia Gordillo APRN, C.N.P., M.S.N. LAB BLOOD NON ADD-ON Performing Organization Address City/[facility]/ZIP Co de Phone Number [facility] [address] [place], [place] [id number] [place] [address] [place] [address] [place] [address] * (ABNORMAL) Levetiracetam Level (03/02/2024 11:18 AM CDT) Only the most recent of2 resultswithin the time period is included. Levetiracetam, S 134.2(H) 10.0 - 40.0 mcg/mL 03/03/2024 11:29 AM CDT [facility] Comment: ----ADDITIONAL INFORMATION---- This test was developed and its performance characteristics determined by [facility] in a manner consistent with CLIA requirements. This test has not been cleared or approved by the U.S. Food and Drug Administration. Blood (Blood, Arterial) 03/02/2024 11:18 AM CDT 03/02/2024 2:48 PM CDT Gardenia Gordillo APRN, C.N.P., M.S.N. LAB BLOOD NON ADD-ON Performing Organization Address City/[facility]/ZIP Co de Phone Number [facility] [address] [place] [address] [facility] [address] [place] [address] [place] [address] * Lamotrigine Level (03/02/2024 11:18 AM CDT) Only the most recent of2 resultswithin the time period is included. [facility] Lamotrigine, S 19.4 3.0 - 15.0 mcg/mL 03/03/2024 12:03 PM CDT [facility] Comment: ----ADDITIONAL INFORMATION---- This test was developed and its performance characteristics determined by [facility] in a manner consistent with CLIA requirements. This test has not been cleared or approved by the U.S. Food and Drug Administration. Blood (Blood, Arterial) 03/02/2024 11:18 AM CDT 03/02/2024 2:48 PM CDT Gardenia Gordillo APRN, C.N.P., M.S.N. LAB BLOOD NON ADD-ON Performing Organization Address [facility] Co de Phone Number [facility] [address] [place] [address] [facility] [address] [place] [address] [place] [address] * CT Head without IV Contrast (03/02/2024 9:50 AM CDT) Anatomical Region Laterality Modality Head, Neuroradiology RST LOS , Neuroradiology ARZ LOS, Neuroradiology FLA LOS N/A Computed Tomography, Compute d Tomography 03/02/2024 9:47 AM CDT Impressions 03/02/2024 10:27 AM CDT No acute abnormality is evident. Narrative 03/02/2024 10:27 AM CDT EXAM: CT HEAD WITHOUT IV CONTRAST COMPARISON: CT head 03/18/2023. FINDINGS: No evidence of an acute infarct. Similar appearance of a focus of high attenuation in the right superior cerebellum and middle cerebellar peduncle, again potentially a cavernous reformation. No evidence of acute hemorrhage. Stable size and configuration of the ventricles, with no evidence of hydrocephalus. No midline shift or other significant mass effect. Mild generalized cerebral volume loss and moderate cerebellar volume loss, similar to prior. Intact calvaria. Mild to moderate paranasal sinus mucosal thickening, predominantly in the ethmoid sinuses. Well-aerated bilateral mastoid air cells. Procedure Note Dimitri Shukla M.D. - 03/02/2024 EXAM: CT HEAD WITHOUT IV CONTRAST COMPARISON: CT head 03/18/2023. FINDINGS: No evidence of an acute infarct. Similar appearance of a focusof high attenuation in the right superior cerebellum and middle cerebellarpeduncle, again potentially a cavernous reformation. No evidence of acutehemorrhage. Stable size and configuration of the ventricles, with no evidence of hydrocephalus. Nomidline shift or other significant mass effect. Mild generalized cerebralvolume loss and moderate cerebellar volume loss, similar to prior. Intact calvaria. Mild to moderate paranasal sinus mucosal thickening,predominantly in the ethmoid sinuses. Well-aerated bilateral mastoid aircells. IMPRESSION: No acute abnormality is evident. Tam Huang P.A.-C., M.S. G C T PROCEDURES * (ABNORMAL) Comprehensive Metabolic Panel (03/02/2024 3:46 AM CDT) Only the most recent of3 resultswithin the time period is included. Potassium, S 4.1 3.6 - 5.2 mmol/L 03/02/2024 4:56 AM CDT DTL Sodium, S 135 135 - 145 mmol/L 03/02/2024 4:56 AM CDT DTL Chloride, S 100 98 - 107 mmol/L 03/02/2024 4:49 AM CDT DTL Bicarbonate, S 24 22 - 29 mmol/L 03/02/2024 4:49 AM CDT DTL Anion Gap 11 7 - 15 03/02/2024 4:56 AM CDT DTL BUN (Blood Urea Nitrogen), S 12 8 - 24 mg/dL 03/02/2024 4:49 AM CDT DTL Creatinine 0.60(L) 0.74 - 1.35 mg/dL 03/02/2024 4:49 AM CDT DTL Estimated GFR (eGFR) >90 >=60 mL/min/BS A 03/02/2024 4:49 AM CDT DTL Comment: Estimated GFR calculated using the 2020 CKD_EPI creatinine equation. Calcium, Total, S 8.7 8.6 - 10.0 mg/dL 03/02/2024 4:49 AM CDT DTL Glucose, S 101 70 - 140 mg/dL 03/02/2024 4:49 AM CDT DTL Protein, Total, S 5.3(L) 6.3 - 7.9 g/dL 03/02/2024 4:49 AM CDT DTL Albumin, S 3.3(L) 3.5 - 5.0 g/dL 03/02/2024 4:49 AM CDT DTL Aspartate Aminotransferase (AST), S 40 8 - 48 U/L 03/02/2024 4:49 AM CDT DTL Alkaline Phosphatase, S 120 40 - 129 U/L 03/02/2024 4:49 AM CDT DTL Alanine Aminotransferase (ALT), S 35 7 - 55 U/L 03/02/2024 4:49 AM CDT DTL Bilirubin, Total, S 0.5 0.0 - 1.2 mg/dL 03/02/2024 4:49 AM CDT DTL Blood (Blood, Venous) 03/02/2024 3:46 AM CDT 03/02/2024 4:32 AM CDT Gardenia Gordillo APRN, C.N.P., M.S.N. LAB BLOOD ADD-ON [facility] [address] [place] [address], [facility] DTL [facility] [address] [place] [address] * (ABNORMAL) Cystatin C with Estimated GFR (03/02/2024 3:42 AM CDT) Only the most recent of3 resultswithin the time period is included. eGFR by Cystatin C 76 >60 mL/min/BSA 03/02/2024 8:54 AM CDT DTL Comment: Estimated GFR calculated [...] lower with the new assay. Cystatin C 1.07(H) 0.63 - 1.03 mg/L 03/02/2024 8:54 AM CDT DTL Blood (Blood, Venous) 03/02/2024 3:42 AM CDT 03/02/2024 8:32 AM CDT Wes Meng LAB BLOOD ADD-ON [facility] [address] [address], [place] [address] * Cell Count and Differential, Bronchoalveolar Lavage (03/02/2024 2:38 AM CDT) Fluid Type BAL DEFAULT 03/02/2024 3:03 AM CDT [facility] Gross appearance Clear 03/02/20 3:03 AM CDT [facility] Total Nucleated Cells 10.8 x10(6) 03/02/2024 3:03 AM CDT [facility] Comment: ----REFERENCE VALUE---- The reference range and other method performance specifications have not been established for this body fluid. The test result must be integrated into the clinical context for interpretation. ----ADDITIONAL INFORMATION---- This test has been modified from the fabric designer's instructions. Its performance characteristics were determined by [facility] in a manner consistent with CLIA requirements. This test has not been cleared or approved by the U.S. Food and Drug Administration. Volume Recovered 25 mL 03/02/20 3:03 AM CDT [facility] Alveolar Macrophage 15 % 03/02 4:08 AM CDT [facility] Comment: ----REFERENCE VALUE---- The reference range and other method performance specifications have not been established for this body fluid. The test result must be integrated into the clinical context for interpretation. Lymphocytes 3 % 03/02/2024 4:08 AM T [facility] Comment: ----REFERENCE VALUE---- The reference range and other method performance specifications have not been established for this body fluid. The test result must be integrated into the clinical context for interpretation. Neutrophils 76 % 03/02/2024 4:08 AM CDT [facility] Comment: ----REFERENCE VALUE---- The reference range and other method performance specifications have not been established for this body fluid. The test result must be integrated into the clinical context for interpretation. Other Cells 6 % 03/02/2024 4:08 AM T [facility] Comment: ----REFERENCE VALUE---- The reference range and other method performance specifications have not been established for this body fluid. The test result must be integrated into the clinical context for interpretation. Comment See Comment 03/02/2024 10:55 AM CDT [facility] Comment:Others are lining ce lls.Bacteria present. Fluid 03/02/2024 2:38 AM CDT 03/02/2024 2:38 AM CDT Ivory Paredes P.A.-C., M.S. LAB BOD Y FLUIDS AND STOOLS ORDERABLES [facility] [address] [place] [address], [facility] [address] [place] [address] * Streptococcus pneumoniae Antigen, Urine (03/02/2024 12:44 AM CDT) [facility] Streptococcus pneumoniae Ag, U Negative Negative 03/02/2024 2:42 PM CDT [facility] Comment: Negative for pneumococcal pneumonia, suggesting no current or recent infection. ??Infection due to S. pneumoniae cannot be ruled out since the antigen present in the sample may be below detection limit of the test. ----ADDITIONAL INFORMATION---- This assay was performed using the FDA-cleared BinaxNOW Streptococcus pneumoniae Antigen test, a rapid immunochromatographic assay. Urine (Urine, Indwelling Catheter) 03/02/2024 12:44 AM CDT 03/02/2024 7:25 AM CDT vIory Paredes P.A.-C. MMaySMay LAB [facility] ROBIOLOGY - GENERAL ORDERABLES Performing Organization Address [facility] Co de Phone Number [facility] [address] [place] [address] [facility] [address] [place] [address] [place] [address] * Legionella Antigen, Urine (03/02/2024 12:44 AM CDT) [facility] Legionella Ag, U Negative Negative 03/02/20 24 2:20 PM CDT [facility] Comment: Negative for L. pneumophila serogroup 1 antigen, suggesting no recent or current infection. ??Infection due to Legionella cannot be ruled out since other serogroups and species may cause disease, antigen may not be present in urine in early infection, and the level of antigen present in the urine may be below the detection limit of the test. ----ADDITIONAL INFORMATION---- This assay was performed using the FDA-cleared BinaxNOW Legionella Urinary Antigen Test, a rapid immunochromatographic assay. Urine (Urine, Indwelling Catheter) 03/02/2024 12:44 AM CDT 03/02/2024 7:25 AM CDT Ivory Paredes P.A.-C. MMaySMay [facility] ROBIOLOGY - GENERAL ORDERABLES Performing Organization Address City/[facility]/ZIP Co de Phone Number [facility] [address] [place] [address] [facility] [address] [place] [address] [address] * DX Chest Portable 1 View (03/01/2024 11:18 PM CDT) Only the most recent of4 resultswithin the time period is included. Anatomical Region Laterality Modality Chest, Thoracic RST LOS, Tho racic ARZ LOS, Thoracic FLA LOS N/A Digital Radiography Impressions 03/02/2024 8:47 AM CDT Since earlier today at 8:58 PM, interval intubation with ETT tip 2.5 cm above the lauro. Remainder not substantially changed. Low lung volumes which accentuate the cardiac silhouette and pulmonary vasculature. Bilateral alveolar and interstitial airspace opacities throughout both lungs. No pneumothorax. Narrative 03/02/2024 8:47 AM CDT EXAM: ??DX CHEST PORTABLE 1 VIEW Procedure Note Meena Groves M.D. - 03/02/2024 EXAM: DX CHEST PORTABLE 1 VIEW IMPRESSION: Since earlier today at 8:58 PM, interval intubation with ETT tip 2.5 cmabove the lauro. Remainder not substantially changed. Low lung volumeswhich accentuate the cardiac silhouette and pulmonary vasculature.Bilateral alveolar and interstitial airspace opacities throughout both lungs. No pneumothorax. Ivory Paredes P.A.-C., M.S. IMG QUITA GNOSTIC IMAGING PROCEDURES * Invasive Line (03/01/2024 10:55 PM CDT) Narrative Gregorio Comer R.R.T., L.R.T. - 03/01/2024 10:55 PM CDT Gregorio Comer R.R.Pedro., L.R.T. ? 03/01/2024 10:55 PM Invasive Line Performed by: Gregorio Comer R.RMayT., L.R.T. Authorized by: Wes Person M.B.B.S. ?? Location: ICU/PCU PROCEDURE DETAILS: Line type: arterial ?? Laterality: right Location: radial Location details: new site ? Age group: adult Catheter diameter: 20 Ga Technique: ultrasound guided ?? Ultrasound guidance: image not saved Monitored: yes ?? Number of attempts: 1 UNIVERSAL PROTOCOL All relevant documentation and testing [...] and confirmed in a procedural pause. PRE-PROCEDURE DETAILS: Indication(s): hemodynamic monitoring Appropriate hand hygiene, gown, cap, mask, protective eyewear, sterile gloves, skin preparation, sterile drape, and strict aseptic technique were utilized as applicable for the procedure.: yes ?? Skin preparation: chlorhexidine ?? SEDATION / ANESTHESIA Anesthesia method: local infiltration Local infiltrate type: lidocaine POST-PROCEDURE DETAILS: Procedure completed successfully: yes ?? Line secured: secured with sutureless device Chlorhexidine disc around insertion site and under catheter with slight turn: yes ?? Notable Events - arterial: none Patient tolerance of procedure: successful Wes Meng PROCEDURE/MINOR RANDOLPH RGICAL ORDERABLES * RI BRONCHOSCOPY W ALVEOLAR LAVAGE (03/01/2024 10:30 PM CDT) Narrative Tam Brower M.D. - 03/01/2024 10:30 PM CDT Ivory Paredes P.A.-C., M.S. ? 03/01/2024 10:41 PM Bronchoscopy (Adult) Performed by: Ivory Paredes P.A.-C., M.S. Authorized by: Ivory Paredes P.A.-C., M.S. ?? Care team members present 1. Tam Brower M.D. PROCEDURE DETAILS Route: endotracheal tube Obstructing secretion removal: yes (Thick, blood-tinged secretions removed from the ETT, main lauro and throughout all airways bilaterally..) Bronchial washings: no ?? BAL (bronchoalveolar lavage): yes (Performed prior to airway inspection and secretion removal.) Location(s): left upper lobe, superior lingula segment (LB4) Brushing: no Biopsy: no Removal foreign body: no Other procedures performed: no CONSENT Consent obtained: verbal Consent given by: parent The benefits, risks and alternatives to the procedure and the potential need for sedation or anesthesia as well as the names, roles, and responsibilities of healthcare team members performing significant interventional tasks were discussed with the patient and/or decision maker. UNIVERSAL PROTOCOL All relevant documentation and testing [...] confirmed in a procedural pause. PRE-PROCEDURE DETAILS Procedure purpose: diagnostic and therapeutic Indications: airway inspection, aspiration and respiratory failure Airborne infection precaution assessment made: yes SEDATION / ANESTHESIA Anesthesia method: already under sedation POST-PROCEDURE DETAILS Post-procedure x-ray ordered: yes X-ray findings: pending Procedure successful: yes Complications: no apparent complications ATTESTATION STATEMENT An PHYLICIA participated or performed the procedure. The leadership development consultant participated in or was aware of the procedure. Ivory Paredes P.A.-C., M.S. PROCEDU RE/MINOR SURGICAL ORDERABLES * RI INTUB W ETT, LDA ANE ENDOTRACHEAL AIRWAY (03/01/2024 10:00 PM CDT) Narrative Tam Brower M.D. - 03/01/2024 10:00 PM CDT Ivory Paredes P.A.-C. MMaySMay ? 03/01/2024 10:37 PM Intubation Performed by: Ivory Paredes P.A.-C. MMaySMay Authorized by: Ivory Paredes P.A.-C. MMaySMay ?? Care team members present 1. Tam Brower M.D. Patient location during procedure: ICU / PCU PROCEDURE DETAILS: Mask difficulty assessment: easy mask Final airway type: video laryngoscope Laryngeal Manipulation: no ?? Final best view of glottic structures - Cormack/Lehane Score: grade 2A ETT location: oral VL device: glide scope [place] scope blade size: 4 Tube size: 7.5 ETT distance at teeth/gum: 22 Oral tube type: standard ETT Cuffed: yes Leak Test Performed: no ?? Number of attempt to successful placement: 1 Airway confirmation: bilateral breath sounds, positive ETCO2, bilateral chest rise, fiber optic confirmation of tube placement/position and chest x-ray Other previous techniques attempted: none CONSENT Consent obtained: verbal Consent given by: parent The benefits, risks and alternatives to the procedure and the potential need for sedation or anesthesia as well as the names, roles, and responsibilities of healthcare team members performing significant interventional tasks were discussed with the patient and/or decision maker. UNIVERSAL PROTOCOL All relevant documentation and testing [...] procedure and confirmed in a procedural pause. PRE PROCEDURE DETAILS: Pre evaluation for airway management: airway protection Urgency: emergent Preop assessment of probable difficulty: no difficulty anticipated Preoxygenation: bag valve mask SEDATION / ANESTHESIA Anesthesia method: none POST PROCEDURE DETAILS: ? Procedure outcome: successful ?? Notable Events: no complications ATTESTATION STATEMENT An PHYLICIA participated or performed the procedure. The leadership development consultant participated in or was aware of the procedure. Ivory Paredes P.A.-C., M.S. ANESTHE BANDAR ORDERABLES * Patient Status (03/01/2024 9:02 PM CDT) Only the most recent of7 resultswithin the time period is included. FIO2 0.28 0.21=AIR 03/01/2024 9:07 PM CDT STMA O2 Flow 8.0 L/min 03/01/2024 9:07 PM CDT STMA Device CFM 03/01/2024 9:07 PM CDT STMA Spont. breaths/min 25 03/01/2024 9:07 PM CDT STMA Blood 03/01/2024 9:02 PM CDT 03/01/2024 9:07 PM CDT Ivory Paredes P.A.-C., M.S. LAB BLO OD NON ADD-ON [facility] [address] [place] [address], [facility] [address] [place] [address] * (ABNORMAL) Blood Gas without Coox, Venous (03/01/2024 9:02 PM CDT) Only the most recent of5 resultswithin the time period is included. pO2, Venous, B 40 Not applicable mm Hg 03/01/2024 9:09 PM CDT STMA pCO2, Venous, B 60(H) 41 - 51 mm Hg 03/01/2024 9:09 PM CDT STMA pH, Venous, B 7.30(L) 7.32 - 7.43 pH 024 9:09 PM CDT STMA Base Excess, Venous, B 3 Not applicable mmol/L 03/01/2024 9:09 PM CDT STMA HCO3, Venous, B 29 Not applicable mmol/L 03/01/2024 9:09 PM CDT STMA Sample Site, Venous, B Venipunct 03/01/2024 9:07 PM CDT STMA Blood (Blood, Venous) 03/01/2024 9:02 PM CDT 03/01/2024 9:07 PM CDT Ivory Paredes P.A.-C., M.S. LAB BLO OD NON ADD-ON Performing Organization Address City/[facility]/ZIP Co de Phone Number [facility] [address] [place] [address] * (ABNORMAL) pH (03/01/2024 8:59 PM CDT) pH 7.29(L) 7.35 - 7.45 pH 03/01/2024 9:10 PM CDT STMA Blood 03/01/2024 8:59 PM CDT 03/01/2024 9:07 PM CDT Ivory Paredes P.A.-C., M.S. LAB HIS TORICAL ORDERS [facility] [address] [place] [address] * (ABNORMAL) Hepatic Function Panel (03/01/2024 8:59 PM CDT) Only the most recent of3 resultswithin the time period is included. Bilirubin, Total, S 0.3 0.0 - 1.2 mg/dL 03/01/2024 10:19 PM CDT DTL Bilirubin, Direct, S <0.2 0.0 - 0.3 mg/dL 03/01/2024 11:10 PM CDT DTL Aspartate Aminotransferase (AST), S 44 8 - 48 U/L 03/01/2024 11:10 PM CDT DTL Alanine Aminotransferase (ALT), S 38 7 - 55 U/L 03/01/2024 10:55 PM CDT DTL Alkaline Phosphatase, S 140(H) 40 - 129 U/L 03/01/2024 10:19 PM CDT DTL Albumin, S 3.1(L) 3.5 - 5.0 g/dL 03/01/2024 10:31 PM CDT DTL Protein, Total, S 5.6(L) 6.3 - 7.9 g/dL 03/01/2024 10:19 PM CDT DTL Blood (Blood, Venous) 03/01/2024 8:59 PM CDT 03/01/2024 9:43 PM CDT Ivory Paredes P.A.-C., M.S. LAB BLO OD ADD-ON [facility] [address] [place] [address], [facility] [address] [place] [address] * Type and Screen (with Reflex Antibody ID) (03/01/2024 8:59 PM CDT) ABORh O Pos Not applicable 03/01/2024 9:30 PM CDT STRM Antibody Screen Negative Negative 03/01/2024 9:49 PM CDT STRM Type & Screen Expiration 03/04/2024 23:59 03/01/2024 9:30 PM CDT STRM Testing Location [facility] 03/01/2024 9:09 PM CDT STRM Blood (Blood, Venous) 03/01/2024 8:59 PM CDT 03/01/2024 9:09 PM CDT Ivory Paredes P.A.-C., M.S. LAB BLO OD BANK TEST ORDERABLES Performing Organization Address City/[facility]/ZIP Co de Phone Number [facility] [address] STRM [facility] [address] [place] [address] * Magnesium (03/01/2024 8:59 PM CDT) Magnesium, S 1.8 1.7 - 2.3 mg/dL 03/01/2024 10:19 PM CDT DTL Blood (Blood, Venous) 03/01/2024 8:59 PM CDT 03/01/2024 9:43 PM CDT Ivory Paredes P.A.-C., M.SMay LAB BLO OD ADD-ON Performing Organization Address [facility] Co de Phone Number [facility] [address] [facility] [address] [place] [address] * Lactate (03/01/2024 8:59 PM CDT) Only the most recent of5 resultswithin the time period is included. Lactate, P 1.4 0.5 - 2.2 mmol/L 03/01/2024 9:22 PM CDT STMA Blood (Blood, Venous) 03/01/2024 8:59 PM CDT 03/01/2024 9:07 PM CDT Ivory Paredes P.A.-C., M.S. LAB BLO OD NON ADD-ON Performing Organization Address City/[facility]/ZIP Co de Phone Number [facility] [address] [place] [address] * Calcium, Ionized (03/01/2024 8:59 PM CDT) [facility] Calcium, Ionized, B 5.17 4.65 - 5.30 mg/dL 03/01/2024 9:10 PM CDT [facility] Blood (Blood, Venous) 03/01/2024 8:59 PM CDT 03/01/2024 9:07 PM CDT Ivory Paredes P.A.-C., M.S. LAB BLO OD NON ADD-ON [facility] [address] [place] [address] * (TTE) 2D ECHO DOPPLER COLOR AND CONTRAST (03/01/2024 12:44 PM CDT) [facility] Ejection Fraction 66 MC CV EIMS Mid-Ascending Aorta 23 MC CV EIMS LV Mass Index 91 MC CV EIMS LV End-Diastolic Diameter 49 MC CV EIMS LV End-Systolic Diameter 30 MC CV EIMS LV End-Diastolic Volume 127 MC CV EIMS LV End-Systolic Volume 45 MC CV EIMS MV e' Velocity Medial 0.13 MC CV EIMS Left ventricular stroke volume index 42 MC CV EIMS Cardiac Output 6.65 MC CV EIMS Cardiac Index 3.98 MC CV EIMS LV Interventricular Septal Wall Thickness 10 MC CV EIMS LV Posterior Wall Thickness 8 MC CV EIMS LV Relative Wall Thickness 33 MC CV EIMS RV 4-Chamber Basal Diameter 38 MC CV EIMS RV 4-Chamber Mid Diameter 29 MC CV EIMS RV 4-Chamber Length 79 MC CV EIMS TAPSE 21 MC CV EIMS Tricuspid Annular S? 0.14 MC CV EIMS TR Vmax 2.68 MC CV EIMS RA Pressure 5 MC CV EIMS RV Systolic Pressure 34 MC CV EIMS Aortic valve area 2.88 MC CV EIMS Aortic Valve Dimensionless Index 0.83 MC CV EIMS LA Volume Index 29 MC CV EIMS Aortic Valve Systolic Peak Velocity 1.3 MC CV EIMS Anatomical Region Laterality Modality Echocardiography 03/01/2024 10:5 1 AM CDT Impressions 03/01/2024 1:39 PM CDT Trivial intrapulmonary shunt. Echo performed at the patient's bedside. LEFT VENTRICLE:Normal left ventricular chamber size. Normal left ventricular wall thickness. Calculated 2-D linear left ventricular ejection fraction 66%. Respirophasic changes in mitral inflow. No regional wall motion abnormalities. Normal left ventricular filling pressure. RIGHT VENTRICLE:Normal right ventricular chamber size. Borderline reduced right ventricular systolic function. Estimated right ventricular systolic pressure 34 mmHg (right atrial pressure of 5 mmHg). ATRIA:Normal left atrial size. Left atrial volume index 29 ml/m2. Normal right atrial size. CARDIAC VALVES:Trileaflet aortic valve. Normal aortic valve. No aortic valve regurgitation. Normal mitral valve. Trivial mitral valve regurgitation. Normal pulmonary valve. Normal pulmonary valve systolic velocities. No pulmonary valve regurgitation. Normal tricuspid valve. Mild-moderate tricuspid valve regurgitation. OTHER ECHO FINDINGS:Normal inferior vena cava size with normal inspiratory collapse (>50%). Normal mid ascending aorta diameter of 23 mm. Upper limit of normal of the mid ascending aorta, for age, sex and BSA is 35 mm. Abdominal aorta incompletely visualized. Imaging inadequate for detection of atrial level shunt by color flow imaging. No intracardiac mass or thrombus, but the left atrial appendage cannot be visualized adequately with transthoracic echo to exclude thrombus in this location. Tiny posterior pericardial effusion. Prominent ??epicardial fat layer. Agitated saline contrast administered. For the complete report, see the Order-Level Documents. Narrative 03/01/2024 1:39 PM CDT For the complete report, see the Order-Level Documents. Hemodynamics Heart Rate: 95 BPM Blood Pressure: 91 / 61 mmHg ECG: Sinus rhythm Final Impressions 1. Normal left ventricular chamber size, no regional wall motion abnormalities, calculated 2-D linear ejection fraction 66%. 2. Respirophasic changes in mitral inflow. 3. Normal left ventricular filling pressure. 4. Normal right ventricular chamber size, borderline reduced systolic function, estimated right ventricular systolic pressure 34 mmHg (right atrial pressure of 5 mmHg). 5. Mild-moderate tricuspid valve regurgitation. 6. Normal inferior vena cava size with normal inspiratory collapse (>50%). 7. Tiny posterior pericardial effusion. 8. No intracardiac or intrapulmonary shunt. 9. Compared to the report of 06/27/2020 significant change has occurred. Procedure Note Osmel Shukla M.D. - 03/01/2024 For the complete report, see the Order-Level Documents. Hemodynamics Heart Rate: 95 BPM Blood Pressure: 91 / 61 mmHg ECG: Sinus rhythm Final Impressions 1. Normal left ventricular chamber size, no regional wall motionabnormalities, calculated 2-D linear ejection fraction 66%. 2. Respirophasic changes in mitral inflow. 3. Normal left ventricular filling pressure. 4. Normal right ventricular chamber size, borderline reduced systolicfunction, estimated right ventricular systolic pressure 34 mmHg (rightatrial pressure of 5 mmHg). 5. Mild-moderate tricuspid valve regurgitation. 6. Normal inferior vena cava size with normal inspiratory collapse(>50%). 7. Tiny posterior pericardial effusion. 8. No intracardiac or intrapulmonary shunt. 9. Compared to the report of 06/27/2020 significant change has occurred. Findings Trivial intrapulmonary shunt. Echo performed at the patient's bedside. LEFT VENTRICLE:Normal left ventricular chamber size. Normal leftventricular wall thickness. Calculated 2-D linear left ventricularejection fraction 66%. Respirophasic changes in mitral inflow. No regionalwall motion abnormalities. Normal left ventricular filling pressure. RIGHT VENTRICLE:Normal right ventricular chamber size. Borderline reducedright ventricular systolic function. Estimated right ventricular systolicpressure 34 mmHg (right atrial pressure of 5 mmHg). ATRIA:Normal left atrial size. Left atrial volume index 29 ml/m2. Normalright atrial size. CARDIAC VALVES:Trileaflet aortic valve. Normal aortic valve. No aorticvalve regurgitation. Normal mitral valve. Trivial mitral valveregurgitation. Normal pulmonary valve. Normal pulmonary valve systolicvelocities. No pulmonary valve regurgitation. Normal tricuspid valve.Mild-moderate tricuspid valve regurgitation. OTHER ECHO FINDINGS:Normal inferior vena cava size with normal inspiratorycollapse (>50%). Normal mid ascending aorta diameter of 23 mm. Upper limitof normal of the mid ascending aorta, for age, sex and BSA is 35 mm.Abdominal aorta incompletely visualized. Imaging inadequate for detectionof atrial level shunt by color flow imaging. No intracardiac mass orthrombus, but the left atrial appendage cannot be visualized adequatelywith transthoracic echo to exclude thrombus in this location. Tinyposterior pericardial effusion. Prominent epicardial fat layer. Agitatedsaline contrast administered. For the complete report, see the Order-Level Documents. Tam Huang P.A.-C., M.S. CV EC HO PROCEDURES * Gram Stain (02/29/2024 12:37 PM CDT) Gram Stain No organisms seen. White blood cells, Many. Epithelial cells, Moderate. 02/29/2024 2:53 PM CDT DTL Tracheal Secretions 02/29/2024 12:37 PM CDT 02/29/2024 1:41 PM CDT Comment:Specimen Source Site : Sputum Neel Love APRNNLuis Fernando, D.N.P. LAB MICROBIOLOGY - GENERAL ORDERABLES [facility] [address] [place] [address], [facility] [address] [place] [address] * CT Chest Angiogram and Pulmonary Arteries with IV Contrast (02/29/2024 12:22 PM CDT) Anatomical Region Laterality Modality Chest, Cardiovascular RST LO S, Thoracic ARZ LOS, Thoracic FLA LOS N/A Computed Tomography, Compute d Tomography 02/29/2024 12:1 9 PM CDT Impressions 02/29/2024 12:49 PM CDT 1. Negative for acute pulmonary embolism. 2. Multiple ill-defined lower lobe predominant consolidative opacities in both lungs are consistent with multifocal pneumonia or aspiration pneumonia. Narrative 02/29/2024 12:49 PM CDT EXAM: CT CHEST ANGIOGRAM AND PULMONARY ARTERIES WITH IV CONTRAST Including 3D image postprocessing with or without AI assistance. COMPARISON: Compared to CT 01/06/2021 FINDINGS: Negative for pulmonary embolism. Mildly prominent main pulmonary artery and its branches. Main pulmonary artery measures 3.1 cm. Multiple ill-defined patchy consolidative opacities are seen throughout both lobes, mostly coalescing in the lower lobes. Trace bilateral pleural effusions. No lymphadenopathy by size criteria. Patulous esophagus. Demineralization. No aggressive osseous lesion. Procedure Note Flynn Shaffer M.B.B.S., M.D. - 02/29/2024 EXAM: CT CHEST ANGIOGRAM AND PULMONARY ARTERIES WITH IV CONTRAST Including 3D image postprocessing with or without AI assistance. COMPARISON: Compared to CT 01/06/2021 FINDINGS: Negative for pulmonary embolism. Mildly prominent main pulmonaryartery and its branches. Main pulmonary artery measures 3.1 cm. Multiple ill-defined patchy consolidative opacities are seen throughoutboth lobes, mostly coalescing in the lower lobes. Trace bilateral pleuraleffusions. No lymphadenopathy by size criteria. Patulous esophagus. Demineralization.No aggressive osseous lesion. IMPRESSION: 1. Negative for acute pulmonary embolism. 2. Multiple ill-defined lower lobe predominant consolidative opacities inboth lungs are consistent with multifocal pneumonia or aspirationpneumonia. Erasmo Lloyd APRN, C.N.P., D.N.P. [facility] [place] * Respiratory Panel, PCR, Nasopharyngeal (02/29/2024 9:12 AM CDT) Specimen Source NASOPHARYNGEAL SWAB 02/29/2024 11:04 AM CDT DTL Adenovirus Undetected Undetected 02/29/2024 11:04 AM CDT DTL Coronavirus 229E Undetected Undetected 02/29/20 24 11:04 AM CDT DTL Coronavirus HKU1 Undetected Undetected 02/29/20 11:04 AM CDT DTL Coronavirus NL63 Undetected Undetected 02/29/20 11:04 AM CDT DTL Coronavirus OC43 Undetected Undetected 02/29/20 11:04 AM CDT DTL SARS Coronavirus-2 Undetected Undetected 02/29/2024 11:04 AM CDT DTL Comment: SARS-CoV-2 RNA absent. This result does not rule out COVID-19 in the patient, as the sensitivity of the test depends on the timing of the specimen collection and the quality of the specimen. Result should be correlated with patient's history and clinical presentation. Human Metapneumovirus Undetected Undetected 02/29/2024 11:04 AM CDT DTL Human Rhinovirus/ Enterovirus Undetected Undetected 02/29/2024 11:04 AM CDT DTL Influenza A Undetected Undetected 02/29/2024 11:04 AM CDT DTL Influenza B Undetected Undetected 02/29/2024 11:04 AM CDT DTL Parainfluenza Virus 1 Undetected Undetected 02/29/2024 11:04 AM CDT DTL Parainfluenza Virus 2 Undetected Undetected 02/29/2024 11:04 AM CDT DTL Parainfluenza Virus 3 Undetected Undetected 02/29/2024 11:04 AM CDT DTL Parainfluenza Virus 4 Undetected Undetected 02/29/2024 11:04 AM CDT DTL Respiratory Syncytial Virus Undetected Undetected 02/29/2024 11:04 AM CDT DTL Bordetella parapertussis Undetected Undetected 02/29/2024 11:04 AM CDT DTL Bordetella pertussis Undetected Undetected 02/29/2024 11:04 AM CDT DTL Chlamydia pneumoniae Undetected Undetected 02/29/2024 11:04 AM CDT DTL Mycoplasma pneumoniae Undetected Undetected 02/29/2024 11:04 AM CDT DTL Interpretation This assay is not predicted to detect SARS-coronavirus (CoV), or MERS-CoV. If SARS-CoV or MERS-CoV is suspected, coordinate testing through a local public health laboratory. 02/29/2024 11:04 AM CDT DTL Comment: ----ADDITIONAL INFORMATION---- This assay is performed using the FDA-Cleared FilmArray Respiratory Panel 2.1 ([employer]). Swab (Nasopharynx) 02/29/2024 9:12 AM CDT 02/29/2024 9:12 AM CDT Erasmo Lloyd APRN C.N.P., D.N.P. LAB MICROBIOLOGY - GENERAL ORDERABLES [facility] [address] [place] [address], [facility] [address] [place] [address] * Staph aureus / MRSA, Nasal, PCR (02/29/2024 8:05 AM CDT) [facility] Staphylococcus aureus, PCR Negative Negative 02/29/2024 11:46 AM CDT DTL MRSA, PCR Negative Negative 02/29/2024 11:46 AM CDT DTL Swab (Nares) 02/29/2024 8:05 AM CDT 02/29/2024 9:12 AM CDT Erasmo Lloyd AKASH, C.N.P., D.N.P. LAB MICROBIOLOGY - GENERAL ORDERABLES [facility] [address] [place] [address], [place] DTL [facility] [address] [place] [address] * Interpretation of Outside US Vascular (02/29/2024 6:05 AM CDT) Anatomical Region Laterality Modality Ultrasound RST LOS, Ultrasou nd ARZ LOS, Ultrasound FLA LOS, Procedural, Other, Vascular N/A Ultrasound Impressions 02/29/2024 10:22 AM CDT Positive for acute DVT in the mid to lower femoral vein through popliteal vein. Result discussed with BETO Nguyen ([id number]) by Dr. Schulte on 02/29/2024 at 0950 hours. Narrative 02/29/2024 10:22 AM CDT EXAM: ??INTERPRETATION OF OUTSIDE US VASCULAR. Bilateral lower extremity venous ultrasound performed on 02/28/2024 at outside facility. Interpretation provided without the benefit of real-time scanning or discussion with the enamel cracker. COMPARISON: ??None FINDINGS: ?? RIGHT: The common femoral, upper deep femoral, femoral, and popliteal veins are patent, without thrombus. The posterior tibial and peroneal veins were segmentally visualized and are unremarkable where seen. The upper great saphenous vein is patent and negative for thrombus. LEFT: Occlusive DVT in the mid to lower femoral vein. Nonocclusive DVT in the popliteal vein. The common femoral and upper deep femoral veins are patent, without thrombus. The posterior tibial and peroneal veins were segmentally visualized and are unremarkable where seen. The upper great saphenous vein is patent and negative for thrombus. Procedure Note Anthony Schulte M.D., M.S. - 02/29/2024 EXAM: INTERPRETATION OF OUTSIDE US VASCULAR. Bilateral lower extremityvenous ultrasound performed on 02/28/2024 at outside facility.Interpretation provided without the benefit of real-time scanning ordiscussion with the enamel cracker. COMPARISON: None FINDINGS: RIGHT: The common femoral, upper deep femoral, femoral, and poplitealveins are patent, without thrombus. The posterior tibial and peronealveins were segmentally visualized and are unremarkable where seen. Theupper great saphenous vein is patent and negative for thrombus. LEFT: Occlusive DVT in the mid to lower femoral vein. Nonocclusive DVT inthe popliteal vein. The common femoral and upper deep femoral veins arepatent, without thrombus. The posterior tibial and peroneal veins weresegmentally visualized and are unremarkable where seen. The upper great saphenous vein is patent andnegative for thrombus. IMPRESSION: Positive for acute DVT in the mid to lower femoral vein through poplitealvein. Result discussed with BETO Nguyen ([id number]) by Dr. Schulte on02/29/2024 at 0950 hours. Girish Love APRN.NAlexandra., D.N.P. IMG US PROCEDURES * US venous LE BI-Outside US (02/28/2024 11:50 AM CDT) 02/28/2024 11:5 0 AM CDT Narrative [facility] - 02/28/2024 12:53 PM CDT This order has been created and auto-finalized to support the import of outside images. If available, original interpretation can be found on the Media Tab in Chart Review, in Document Viewer, as an image in QREADS or as an Addendum. If a re-interpretation or overread is required please follow defined workflow.?? Provider Not In System IMG US PROCEDURES [facility] NA * XR CHEST 1V PORTABLE-Outside Chest Xray (02/28/2024 11:30 AM CDT) 02/28/2024 11:3 0 AM CDT Narrative [facility] - 02/28/2024 12:17 PM CDT This order has been created and auto-finalized to support the import of outside images. If available, original interpretation can be found on the Media Tab in Chart Review, in Document Viewer, as an image in QREADS or as an Addendum. If a re-interpretation or overread is required please follow defined workflow.?? Provider Not In System IMG DIAGNOSTIC IM AGING PROCEDURES Performing Organization Address [facility] de Phone Number [facility] NA * (ABNORMAL) Clobazam and Metabolite (02/02/2024 11:03 AM CDT) Clobazam 313.0(H) 30 - 300 ng/mL 02/04/2024 3:01 AM CDT [facility] N-desmethylclobazam >18264(H) 300 - 3000 ng/mL 02/04/2024 3:01 AM CDT [facility] Comment: ----ADDITIONAL INFORMATION---- This test was developed and its performance characteristics determined by [facility] in a manner consistent with CLIA requirements. This test has not been cleared or approved by the U.S. Food and Drug Administration. Blood (Blood, Venous) 02/02/2024 11:03 AM CDT 02/03/2024 2:51 PM CDT Jose Martin Eatno M.D. LAB BLOOD ADD-ON Performing Organization Address [facility] Co de Phone Number [facility] [address] [place] [address] [facility] [address] [place] [address] [place] [address] * Rufinamide, S (02/02/2024 11:03 AM CDT) Rufinamide, S 9.0 5.0 - 30.0 mcg/mL 02/03/2024 1:20 PM CDT [facility] Comment: ----ADDITIONAL INFORMATION---- This test was developed and its performance characteristics determined by [facility] in a manner consistent with CLIA requirements. This test has not been cleared or approved by the U.S. Food and Drug Administration. Blood (Blood, Venous) 02/02/2024 11:03 AM CDT 02/03/2024 7:47 AM CDT Jose Martin Eaton M.D. LAB BLOOD NON ADD-ON [facility] [address] [place] [address] [facility] [address] [place] [address] [place] [address] * Reticulocytes (02/02/2024 11:03 AM CDT) Reticulocytes, B 1.76 0.60 - 2.71 % 02/02/2024 3:18 PM CDT [facility] Absolute Reticulocyte 63.7 30.4 - 110.9 x10(9)/L 02/02/2024 3:18 PM CDT [facility] Blood (Blood, Venous) 02/02/2024 11:03 AM CDT 02/02/2024 3:00 PM CDT Jose Martin Eaton M.D. LAB BLOOD ADD-ON Performing Organization Address [facility]/ZIP Co de Phone Number [facility] [address] [place] [address], [facility] [address] [place] [address] * (ABNORMAL) CBC with Differential, Blood (02/02/2024 [...] Jose Martin Eaton M.D. LAB BLOOD ADD-ON [facility] [address] [place] [address], [facility] FB60 [facility] [place] [address] [place] [address] * FL Swallow Function with Video and [...] COMPARISON: video swallow 06/26/2020. Procedure Note Bob Ldad M.D. - 12/30/2023 EXAM: FL SWALLOW FUNCTION [...] further details andrecommendations. Pedro Pablo Kline M.D. [facility] FLUOR[facility] PROC EDURES * Non-Endoscopic Tube Procedure (12/29/2023 1:23 PM CDT) 12/29/2023 1:23 PM CDT Impressions [facility] - 12/29/2023 1:52 PM CDT Post-op Diagnoses: ? - The PEG-J tube was dislodged and was removed and replaced with a 3.5 ? cm long, 22 Fr Avanos FARIHA-SMALL Low-profile PEG-J gastrostomy tube. ? - No specimens collected. Narrative [facility] - 12/29/2023 1:52 PM CDT Gary 6 [...] to tube site or tube call ? [phone] Wednesday - Wednesday 7;30 am-4:30 pm or after hours, weekends, ? holidays call [facility] flue tile press operator [phone] ask them to page ? [phone] and wait for MD to answer. May [...] PROCEDURE ORDERAB LES Performing Organization Address [facility] Co de Phone Number [facility] NA * FL Fluoro Less Than 1 Hour (12/29/2023 1:19 PM CDT) Narrative [facility] LOS RST - 12/29/2023 1:20 PM CDT This exam does not require a radiologist review or interpretation. Please refer to the patient's medical record on this date for clinical details. Perdo Pablo Kline M.D. IMG FLUOROSCOPY PROC EDURES Performing Organization Address [facility] Co de Phone Number [facility] LOS RST * (ABNORMAL) Blood Gas with Coox, Venous [...] Neil M.D. LAB BLOOD NON ADD- ON [facility] [address] [place] [address], [facility] [address] [place] [address] * (ABNORMAL) Venous Blood Gas and Electrolytes CG8+, POCT (12/28/2023 3:19 PM CDT) Only the most recent of2 resultswithin the time period is included. Pathologist [facility] Sample Site, POCT Venstick 12/28/2023 3:26 PM [...] ORD ERABLES - DEVICE Performing Organization Address [facility] de Phone Number POC [facility] [address] [place] [address], [place] PCLX [facility] [address] [place] [address] PCSM [facility] [address] [place] [address] * EEG (12/28/2023 7:29 AM CDT) Narrative [...] Kline M.D. NEUROLOGY ORDERABLES Performing Organization Address [facility] de Phone Number MMODAL NA * ECG 12 Lead (12/27/2023 2:34 PM CDT) Ventricular Rate ECG/Min 95 BPM MUSE RI Interval 150 ms MUSE QRSD Interval 96 ms MUSE QT Interval 358 ms MUSE QTC Interval 449 ms MUSE P [place] 19 degrees MUSE R [place] -4 degrees MUSE T Wave [place] 84 degrees MUSE 12/27/2023 2:34 PM CDT [...] Kline M.D. ECG ORDERABLES Performing Organization Address [facility] Co de Phone Number MUSE NA * (ABNORMAL) Creatinine with Estimated GFR (12/27/2023 1:34 AM CDT) Creatinine 0.39(L) 0.74 - 1.35 mg/dL 12/27/2023 2:40 AM CDT DTL Estimated GFR (eGFR) >90 >=60 mL/min/BSA 12/27/2023 2:40 AM CDT DTL Comment: Estimated GFR calculated using the 2020 CKD_EPI creatinine equation. Blood (Blood, Venous) 12/27/2023 1:34 AM CDT 12/27/2023 2:01 AM CDT Fatmata Grier M.D. LAB BLOOD ADD-ON Performing Organization Address [facility] Co de Phone Number [facility] [address] DTL [facility] [address] [place] [address] * Non-Radiology Image-Pulmonary And CC Medicine Image [...] RAD IMAGI NG PROCEDURES Performing Organization Address City/[facility]/ZIP Co de Phone Number [facility] NA * Lactate, POCT (12/26/2023 11:54 PM CDT) Lactate, POCT 1.12 0.50 - 2.20 mmol/L 12/27/2023 12:10 AM CDT [facility] Sample Site, POCT Venstick 12/27/2023 12:10 AM CDT PCLX Blood 12/26/2023 11:5 4 PM CDT 12/27/2023 12:10 AM CDT Unknown Provider LAB POCT ORDERABLES - DEVICE Performing Organization Address City/[facility] Co de Phone Number POC [facility] [address] [place] [address], [facility] PCLX [facility] [address] [place] [address] * Feeding Tube Replacement (12/26/2023 9:36 PM [...] at the following links: For Healthcare Providers: https://www.fda.gov/media/125301/download For Patients: https://www.fda.gov/media/687781/download Infl A/B, SARS CoV-2, PCR, Source Swab, Nasopharynx 12/26/2023 7:56 PM CDT [facility] Swab (Nasopharynx) 12/26/2023 7:50 PM CDT 12/26/2023 7:56 PM CDT Jamia Lozano M.D. LAB MICROBIOLOGY - GENERAL ORDERABLES [facility] [address] [place] [address], [facility] STMA [facility] [address] [place] [address] * Bacterial Culture, Aerobic + Susceptibility, Urine (12/26/2023 7:37 PM CDT) Urine Culture No growth after 1 day of incubation. 12/28/2023 7:28 AM CDT DTL Urine (Urine, Midstream) 12/26/2023 7:37 PM CDT 12/26/2023 8:36 PM CDT Comment:Specimen Source Site : Urine Jamia Lozano M.D. LAB MICROBIOLOGY - GENERAL ORDERABLES [facility] [address] [place] [address], [facility] DTL [facility] [address] [place] [address] * CT Abdomen Pelvis with IV Contrast [...] bronchial wall thickening, likely infectious/inflammatory. Procedure Note Ray, Say Trinidad M.D. - 12/26/2023 EXAM: CT [...] Jamia Lozano M.D. LAB URINE ORDERABLE S [facility] [address] [place] [address], [place] [facility] [address] [place] [address] * Microscopic Automated (12/26/2023 7:07 PM CDT) Microscopy Normal 12/26/2023 7:54 PM CDT DTL RBC None Seen <3 /hpf 12/26/2023 7:54 PM CDT DTL WBC None Seen /hpf 12/26/2023 7:54 PM CDT DTL Comment: ----REFERENCE VALUE---- <4 ??(Males) <11 (Females) Urine 12/26/2023 7:07 PM CDT 12/26/2023 7:37 PM CDT Jamia Lozano M.D. LAB URINE ORDERABLE S Performing Organization Address City/[facility]/ZIP Co de Phone Number [facility] [address] [place] [address] * pH, Urine (12/26/2023 7:07 PM CDT) pH, U 7.0 4.5 - 8.0 12/26/2023 7:5 0 PM CDT DT Urine 12/26/2023 7:07 PM CDT 12/26/2023 7:37 PM CDT Jamia Lozano M.D. LAB URINE ORDERABLE S Performing Organization Address [facility] Co de Phone Number [facility] [address] [place], [place] [address] [place] [address] [address] [place] [address] * Osmolality, Urine (12/26/2023 7:07 PM CDT) Osmolality, U 237 150 - 1150 mOsm/kg 12/26/2023 7:50 PM CDT DT Urine 12/26/2023 7:07 PM CDT 12/26/2023 7:37 PM CDT Jamia Lozano M.D. LAB URINE ORDERABLE S [facility] [address] [place] [address], [facility] [address] [place] [address] * (ABNORMAL) Urinalysis, with Microscopic: Urine, Catheter [...] LAB URINE ORDERABLE S Performing Organization Address [facility]/ZIP Co de Phone Number [facility] [address] [place] [address], [facility] [address] [place] [address] * Dipstick, POCT, Urine (12/26/2023 7:06 PM CDT) Glucose, POCT, U Negative Negative mg/dL 12/26/2023 7:08 PM CDT PCED Ketone, POCT, U Negative Negative mg/dL 12/26/2023 7:08 PM CDT PC[facility] Specific [place], POCT, U 1.015 1.005 - 1.030 12/26/2023 [...] POCT ORDERABLES - DEVICE Performing Organization Address City/[facility]/ZIP Co de Phone Number POC RST [facility] [address] [place] [address], [facility] PCED [facility] [address] [place] [address] * Bacteria / Christopher Culture, Blood #2 (12/26/2023 6:06 PM CDT) Only the most recent of2 resultswithin the time period is included. Pathologist [facility] Bacteria/Isabell da Culture, Blood No growth after 5 days of incubation. 12/31/2023 7:02 PM CDT DTL Blood (Blood, Peripheral Draw) 12/26/2023 6:06 PM CDT 12/26/2023 6:17 PM CDT Comment:Specimen Source Site : Blood Narrative [facility] - 12/31/2023 7:02 PM CDT Received Bactec aerobic and Bactec anaerobic bottles Jamia Lozano M.D. LAB MICROBIOLOGY - GENERAL ORDERABLES Performing Organization Address City/[facility]/ZIP Co de Phone Number [facility] [address] [place] [address], [facility] [address] [place] [address] * (ABNORMAL) Lactate for Sepsis with Reflex (12/26/2023 5:49 PM CDT) Pathologist [facility] Lactate, P 2.3(H) 0.5 - 2.2 mmol/L 12/26/2023 6:25 PM CDT [facility] Blood (Blood, Venous) 12/26/2023 5:49 PM CDT 12/26/2023 6:12 PM CDT Jamia Lozano M.D. LAB BLOOD NON ADD-O N Performing Organization Address [facility] Co de Phone Number [facility] [address] [place] [address], [facility] [address] [place] [address] * (ABNORMAL) Prothrombin Time (PT) (12/26/2023 5:49 PM CDT) Prothrombin Time, P 12.8(H) 9.4 - 12.5 sec 12/26/2023 6:21 PM CDT [facility] INR 1.2 0.9 - 1.1 12/26/2023 6:21 PM CDT [facility] Comment: ----ADDITIONAL INFORMATION---- Standard intensity warfarin therapeutic range: 2.0 to 3.0 ?? High intensity warfarin therapeutic range: 2.5 to 3.5 Blood (Blood, Venous) 12/26/2023 5:49 PM CDT 12/26/2023 6:12 PM CDT Jamia Lozano M.D. LAB BLOOD ADD-ON Performing Organization Address City/[facility] Co de Phone Number [facility] [address] [place] [address], [facility] [address] [place] [address] * (ABNORMAL) Lipase (12/26/2023 5:49 PM CDT) Lipase, S 8(L) 13 - 60 U/L 12/26/2023 6: 49 PM CDT DTL Blood (Blood, Venous) 12/26/2023 5:49 PM CDT 12/26/2023 6:34 PM CDT Jamia Lozano M.D. LAB BLOOD ADD-ON Performing Organization Address City/[facility] Co de Phone Number [facility] [address] [place] [address], [facility] [address] [place] [address] * Vitamin B12 Assay (12/26/2023 5:48 PM CDT) Vitamin B12 Assay, S 656 180 - 914 ng/L 12/28/2023 8:37 AM CDT DT Comment: ----ADDITIONAL INFORMATION---- In patients being evaluated [...] LAB BLOOD ADD-ON Performing Organization Address [facility] Co de Phone Number [facility] [address] [place] [address], [facility] [address] [place] [address] from Last 3 Months Advance Directives For more information, please contact: [phone] * Full Code (Latest Code Status on File) Date Activated Date Inactivated Comments 02/28/2024 3:15 PM Question Answer Comments Full Code: Not Discussed Due to: Patient does not have the capaci ty * Full Code Date Activated Date Inactivated Comments 12/26/2023 11:02 [...] Full Code: Discussed Discussed with james arias Care Teams Positive Printer Operator Relationship Specialty Start Date End Date Elsewhere, Pcp PCP - General Family Medicine 06/24/18
--- OUTSIDE RECORDS SUMMARY | 2024-03-04 05:16 | XMS_ITS | Encounter Summary ---
Author Organization [facility] Address [address] [place] [address] Care Team Providers Care Ticket Scheduler Name Role Phone Elsewhere, Pcp Primary Care Provider Unavailabl e Encounter Details Date Type Department Care Team (Late st Contact Info) Description 03/01/2024 12:20 PM CDT Ancillary Procedure Department of Nursing Arrived Social History Tobacco Use Types Packs/Day Years Used Date Smoking Tobacco: Never Smokeless Tobacco: Never Alcohol Use Standard Drinks/Week Comments Never 0 (1 standard drink = 0.6 oz pur e alcohol) [facility] Utilities Answer Date Recorded In the past 12 months has th e [employer], gas, oil, or water [facility] threatened to shut off services in your home? No 03/02/2024 Humiliation, Afraid, Rape, a nd Kick questionnaire Answer Date Recorded Within the last year, have y ou been afraid of your partner or ex-partner? Patient unable to answer 03/02/2024 Within the last year, have y ou been humiliated or emotionally abused in other ways by your partner or ex-partner? Patient unable to answer 03/02/2024 Within the last year, have y ou been kicked, hit, slapped, or otherwise physically hurt by your partner or ex-partner? Patient unable to answer 03/02/2024 Within the last year, have y ou been raped or forced to have any kind of sexual activity by your partner or ex-partner? Patient unable to answer 03/02/2024 Social Connection and Isolation Panel [NHANES] A nswer Date Recorded In a typical week, how many times do you talk on the phone with family, friends, or neighbors? Never 12/11/2021 How often do you get togethe r with friends or relatives? Patient declined 12/11/2021 How often do you attend roman catholic or worship serv ices? Patient declined 12/11/2021 Do you belong to any clubs o r organizations such as roman catholic groups, unions, fraternal or athletic groups, or [...] 12/11/2021 [facility] ional [facility] - Occupational Stress Questionnaire Answer Date [...] the money to buy more. Never true 03/02/20 24 Within the past 12 months, t he food you bought just didn't last and you didn't have money to get more. Never true 03/02/2024 PRAPARE - Transportation Answer Date Re corded In the past 12 months, has l ack of transportation kept you from medical appointments or from getting medications? No 02/12 In the past 12 months, has l ack of transportation kept you from meetings, work, or from getting things needed for daily living? No 03/02/2024 Nutrition Answer Date Recorded On average, how [...] Recorded What is your living situation today? I have a [facility] place to live 03/02/2024 Sex and Gender Information Value Date Recorded Sex Assigned at Male 12/11/2021 2:11 PM CDT Gender Identity Male 12/11/2021 1:44 PM CDT Sexual Orientation Straight 12/11/2021 2: 11 PM CDT documented as of this encounter Plan of Treatment Not on file documented as of this encounter Procedures Procedure Name Priority Date/Time Associated Diagnosis Comments NURSING IMAGE EXAM Routine 03/01/2024 12 :20 PM CDT documented in this encounter Results * Abdomen-Nursing Image Exam (03/01/2024 12:20 PM CDT) 03/01/2024 12:1 9 PM CDT Narrative [facility] - 03/01/2024 12:22 PM CDT This order has been created and auto-finalized to support the import of images acquired without order. The clinical documentation to support these images can be found on the encounter that produced images. Provider Not In System IMG NON RAD IMAGI NG PROCEDURES [facility] NA documented in this encounter Visit Diagnoses Not on filedocumented in this encounter Care Teams Ticket Scheduler Relationship Specialty Start Date End Date Elsewhere, Pcp PCP - General Family Medicine 06/24/18 documented as of this encounter
--- OUTSIDE RECORDS SUMMARY | 2024-03-04 05:16 | XMS_ITS | Encounter Summary ---
Author Organization [facility] Address [address] [place] [address] Care Team Providers Care Watch Repairer Name Role Phone Elsewhere, Pcp Primary Care Provider Unavailabl e Encounter Details Date Type Department Care Team (Late st Contact Info) Description 03/03/2024 10:15 PM CDT Ancillary Procedure Department of Nursing Arrived Social History Tobacco Use Types Packs/Day Years Used Date Smoking Tobacco: Never Smokeless Tobacco: Never Alcohol Use Standard Drinks/Week Comments Never 0 (1 standard drink = 0.6 oz pur e alcohol) [facility] Utilities Answer Date Recorded In the past 12 months has th e [employer], gas, oil, or water [employer] threatened to shut off services in your [...] declined 12/11/2021 How often do you attend druze or orthodox serv ices? Patient declined 12/11/2021 Do you belong to any clubs o r organizations such as druze groups, unions, fraternal or athletic groups, or [...] heating? Not hard at all 12/11/2021 [facility] - Occupational [...] Associated Diagnosis Comments NURSING IMAGE EXAM Routine 03/03/2024 10 :15 PM CDT documented in this encounter Results * Buttock/Sacrum-Nursing Image Exam (03/03/2024 10:15 PM CDT) 03/03/2024 10:1 4 PM CDT Narrative [facility] [...] on filedocumented in this encounter Care Teams Watch Repairer Relationship Specialty Start Date End Date Elsewhere, Pcp PCP - General Family Medicine 06/24/18 documented as of this encounter
--- OUTSIDE RECORDS SUMMARY | 2024-03-04 05:16 | XMS_ITS | Encounter Summary ---
Author Organization [facility] Address [address] [place] [address] Care Team Providers Care Cone Marker Name Role Phone Elsewhere, Pcp Primary Care Provider Unavailabl e Encounter Details Date Type Department Care Team (Late st Contact Info) Description 02/28/2024 4:50 PM CDT Ancillary Procedure Department of Nursing Social History Tobacco Use Types Packs/Day Years [...] declined 12/11/2021 How often do you attend orthodox or hindu serv ices? Patient declined 12/11/2021 Do you belong to any clubs o r organizations such as orthodox groups, unions, fraternal or athletic groups, or [...] and heating? Not hard at all 12/11/2021 [facility] [place] of Occupat ional Health - Occupational Stress [...] place to sleep or slept in a long-term (including now)? No 12/11/2021 Nutrition Answer Date Recorded On average, how [...] Associated Diagnosis Comments NURSING IMAGE EXAM Routine 02/28/2024 4: 50 PM CDT documented in this encounter Results * Buttock/Sacrum-Nursing Image Exam (02/28/2024 4:50 PM CDT) 02/28/2024 4:50 PM CDT Narrative IIMS - 02/28/2024 4:53 PM CDT This order has been created and auto-finalized to support the import of images acquired without order. The clinical documentation to support these images can be found on the encounter that produced images. Provider Not In System IMG NON RAD IMAGI NG PROCEDURES [facility] NA documented in this encounter Visit Diagnoses Not on filedocumented in this encounter Care Teams Cone Marker Relationship Specialty Start Date End Date Elsewhere, Pcp PCP - General Family Medicine 06/24/18 documented as of this encounter
--- OUTSIDE RECORDS SUMMARY | 2024-03-04 05:16 | XMS_ITS ---
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 Treatments may have been administered in another system. Lifetime Dose Tracking * Chemical Lifetime Dose Automatic Entry Manual Entr y Radiation 399.56 mGy 399.56 mGy 0 mGy Fluoro Time 33.855 minutes 33.855 minutes 0 minutes Resolved Problems Problem Noted Date Diagnosed Date Resolved Date Hypoxia Sleep Related 06/27/20202019 Hypokalemia 06/27/2020 06/30/2020
--- OUTSIDE RECORDS SUMMARY | 2024-03-04 05:16 | XMS_ITS | Encounter Summary ---
Author Organization [facility] Address [address] [place] [address] Care Team Providers Care Ballistician Name Role Phone Elsewhere, Pcp Primary Care Provider Unavailabl e Encounter Details Date Type Department Care Team (Late st Contact Info) Description 02/29/2024 9:00 AM CDT Ancillary Procedure Department of Nursing Social [...] How often do you attend worship or sabianist serv ices? Patient declined 12/11/2021 Do you [...] and heating? Not hard at all 12/11/2021 [facility] [place] of Occupat ional Health - Occupational Stress [...] in a long term (including now)? No 12/11/2021 Nutrition Answer Date [...] Associated Diagnosis Comments NURSING IMAGE EXAM Routine 02/29/2024 8: 57 AM CDT documented in this encounter Results * Buttock/Sacrum-Nursing Image Exam (02/29/2024 8:57 AM CDT) 02/29/2024 8:54 AM CDT Narrative IIMS - 02/29/2024 8:57 AM CDT This order has been created and auto-finalized to support the import of images acquired without order. The clinical documentation to support these images can be found on the encounter that produced images. Provider Not In System IMG NON RAD IMAGI NG PROCEDURES IIM[facility] NA documented in this encounter Visit Diagnoses Not on filedocumented in this encounter Additional Health Concerns Infection Onset Date Last Indicated Resolved Time COVID19 Pending 02/29/2024 02/29/2024 02/29/2024 1 1:04 AM CDT documented as of this encounter Care Teams Ballistician Relationship Specialty Start Date End Date Elsewhere, Pcp PCP - General Family Medicine 06/24/18 documented as of this encounter
--- OUTSIDE RECORDS SUMMARY | 2024-03-04 05:16 | XMS_ITS | Encounter Summary ---
Author Organization [facility] Address [address] [place] [address] Care Team Providers Care Lasting Machine Operator Name Role Phone Elsewhere, Pcp Primary Care Provider Unavailabl e Encounter Details Date Type Department Care Team (Late st Contact Info) Description 02/28/2024 3:50 PM CDT Ancillary Procedure Department [...] declined 12/11/2021 How often do you attend anabaptist or evangelical serv ices? Patient declined 12/11/2021 Do you belong to any clubs o r organizations such as anabaptist groups, unions, fraternal or athletic groups, or [...] and heating? Not hard at all 12/11/2021 [facility] [place] of Occupat ional Health - Occupational Stress [...] Diagnosis Comments NURSING IMAGE EXAM Routine 02/28/2024 3: 50 PM CDT documented in this encounter Results * Abdomen-Nursing Image Exam (02/28/2024 3:50 PM CDT) 02/28/2024 3:47 PM CDT Narrative IIMS - 02/28/2024 3:50 PM CDT This order has been created and auto-finalized to support the import of images acquired without order. The clinical documentation to support these images can be found on the encounter that produced images. Provider Not In System IMG NON RAD IMAGI NG PROCEDURES [facility]IM[facility] NA documented in this encounter Visit Diagnoses Not on filedocumented in this encounter Care Teams Lasting Machine Operator Relationship Specialty Start Date End Date Elsewhere, Pcp PCP - General Family Medicine 06/24/18 documented as of this encounter
--- OUTSIDE RECORDS SUMMARY | 2024-03-04 05:16 | XMS_ITS ---
Author Organization [facility] Address [address] [place] [address] Care Team Providers Care Information Technology Administrator Name Role Phone Unavailable Unavailable Unavailable Surgery Details Not on file Complications Check Surgery Details section. Procedure Estimated Blood Loss Check Surgery Details section. Procedure Findings Check Surgery Details section. Procedure Specimens Taken Check Surgery Details section.
--- OUTSIDE RECORDS SUMMARY | 2024-03-04 05:16 | XMS_ITS | Encounter Summary ---
Author Organization [facility] Address [address] [place] [address] Care Team Providers Care Batch Records Clerk Name Role Phone Elsewhere, Pcp Primary Care Provider Unavailabl e Encounter Details Date Type Department Care Team (Late st Contact Info) Description 02/29/2024 6:00 AM CDT Ancillary Procedure Department of Radiology in [place], [place] [address] [place] [phone] Erasmo Lloyd APRN, C.N.P., D.N.P. [address] [place] [phone] Social History Tobacco Use Types Packs/Day Years [...] declined 12/11/2021 How often do you attend zoroastrian or muslim serv ices? Patient declined 12/11/2021 Do you belong to any clubs o r organizations such as zoroastrian groups, unions, fraternal or athletic groups, or [...] and heating? Not hard at all 12/11/2021 [facility] of Occupat ional Health - Occupational Stress [...] place to sleep or slept in a penitentiary (including now)? No 12/11/2021 Nutrition Answer Date [...] Procedure Name Priority Date/Time Associated Diagnosis Comments INTERPRETATION OF OUTSIDE US VASCULAR RAD - Routine (most inpatients and all outpatients) 02/29/2024 6:05 AM CDT documented in this encounter Results * Interpretation of Outside US Vascular (02/29/2024 6:05 AM CDT) Anatomical Region Laterality Modality Ultrasound RST LOS, Ultrasou nd ARZ LOS, Ultrasound FLA LOS, Procedural, Other, Vascular N/A Ultrasound Impressions 02/29/2024 10:22 AM CDT Positive for acute DVT in the mid to lower femoral vein through popliteal vein. Result discussed with BETO Nguyen ([id number]) by Dr. Schulte on 02/29/2024 at 0950 hours. Narrative 02/29/2024 10:22 AM CDT EXAM: ??INTERPRETATION OF OUTSIDE US VASCULAR. Bilateral lower extremity venous ultrasound performed on 02/28/2024 at outside facility. Interpretation provided without the benefit of real-time scanning or discussion with the plant utility person. COMPARISON: ??None FINDINGS: ?? RIGHT: The common [...] benefit of real-time scanning ordiscussion with the plant utility person. COMPARISON: None FINDINGS: RIGHT: The common femoral, [...] through poplitealvein. Result discussed with BETO Nguyen ([id number]) by Dr. Schulte on02/29/2024 at 0950 hours. Erasmo Lloyd APRN, C.N.P., D.N.P. IMG US PROCEDURES documented in this encounter Visit Diagnoses Not on filedocumented in this encounter Care Teams Batch Records Clerk Relationship Specialty Start Date End Date Elsewhere, Pcp PCP - General Family Medicine 06/24/18 documented as of this encounter
--- OUTSIDE RECORDS SUMMARY | 2024-03-04 05:16 | XMS_ITS | Referral Summary ---
Author Organization [facility] Address [address] [place] [address] Care Team Providers Care Database Admin Name Role Phone Elsewhere, Pcp Primary Care Provider Unavailabl e Source Comments Patient records contain information from all sites at [facility]. For routine questions regarding patient records, call [phone] during business hours, M-F 8:00 AM - 5:00 PM Central Time. Record requests for emergency care only can be directed to [phone] at any time.[facility] Encounters Date Type Department Care Team Description 03/03/2024 10:15 PM CDT Ancillary Procedure Department of Nursing Arrived 03/01/2024 12:20 PM CDT Ancillary Procedure Department of Nursing Arrived 02/29/2024 9:00 AM CDT Ancillary Procedure Department of Nursing 02/29/2024 8:55 AM CDT Ancillary Procedure Department of Nursing 02/29/2024 6:00 AM CDT Ancillary Procedure Department of Radiology in [place], [place] [address] [place] [address] Erasmo Lloyd APRN, C.N.P., D.N.P. 02/28/2024 4:50 PM CDT Ancillary Procedure Department of Nursing 02/28/2024 3:50 PM CDT Ancillary Procedure Department of Nursing 02/28/2024 2:51 PM CDT - Present Hospital Encounter [facility], [facility], [facility], Sixth Floor [address] [place] [address] Wes Person M.B.B.S. Acute Respiratory Failure With Hypoxia (HCC) (Primary Dx); Aspiration Pneumonia Secondary to Procedure 02/28/2024 Intake [facility] 02/02/2024 10:40 AM CDT - 02/02/2024 11:59 PM CDT Hospital Encounter Department of Laboratory Medicine in [place], [place] [address] [place] [address] Jose Martin Eaton M.D. 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 Snoring (Primary Dx); Hypoxemia; Stroke Cerebrovascular Accident Personal History 12/30/2023 Orders Only Department of Nutrition and Diabetes Education in [place], [place] [address] [place] [phone] Na Brennan RDN, ADELA [place] Gastaut Syndrome (HCC) (Primary Dx); Gastrojejunostomy Percutaneous Status Post ; Dietary Counseling And Surveillance For Enteral Nutrition 12/26/2023 4:16 PM CDT - 12/30/2023 12:14 PM CDT Hospital Encounter [facility], [facility], Sixth Floor [address] [place] [phone] Jamia Lozano M.D. Andria Shaffer M.B.B.S., MElsy. Wes Person M.B.BMayS. Feliciano Alejandre M.D., Ph.D. Pneumonia (Primary Dx); Sepsis (HCC); Aftercare Feeding Tube; Dehydration; Diarrhea; Acidosis Lactic; Dysphagia Oropharyngeal Phase [R13.12] Discharge Disposition: Home or Self Care 12/29/2023 12:52 PM CDT Anesthesia Event Division of Gastroenterology in [address] [phone] Cruz Edmonds APRN, KRISHAN 12/29/2023 11:05 AM CDT - 12/29/2023 11:59 PM CDT Hospital Encounter Department of Radiology, [facility] in [address] [phone] Pedro Pablo Kline M.D. Discharge Disposition: Home or Self Care 12/27/2023 Orders Only [facility] in [place], [place] [address] [place] [address] Srinath Rodriguez M.D. 12/27/2023 12:50 AM CDT Ancillary Procedure Department of Pulmonary and CC Medicine 12/26/2023 Nurse Triage Department of Family Medicine, [facility], in [place], [place] [address] [place] [phone] Poonam Jasmine R.N. Vomiting; Tube Problem 12/20/2023 Documentation Division of Endocrinology in [place], [place] [address] [place] [address] Anastasia Chaney R.N. Scheduling 12/20/2023 Orders Only Division of Endocrinology in [place], [place] [address] [place] [phone] Anastasia Chaney R.N. 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 Augmentin/ Amoxicillin use contraindicated. Camphor Other (see comments) 12/20/2010 Converted from Generic Allergy: Eucalyptus/Menthol/Campho r Ywtnrrb-Oihdhmtfhj-F enthol Other (see comments) 12/01/2020 Cefaclor Other (see comments) 02/17/2010 Converted from Generic Allergy: Cefaclorleukopenia leukopenia Euc Yyp-Uaij-Gid,Rosem Oils-Pt Rash 05/14/2022 Levofloxacin Rash 05/14/2022 Penicillin [...] Hypoxia Sleep Related 06/27/20202019 Hypokalemia 06/27/2020 06/30/2020 Immunizations Name Administration Dates Next Due DTP 02/11/1991, 2,1980,1979,1980 Influenza, Unspecified 05/26/2017,2015,06/27/2015,2013,06/29/2012,07/07/2010,06/26/2008,1 ,07/12/2006,07/16/2005, 004,08/27/2003 MMR 05/14/1981 PCV13 01/13/2016 PPSV23 09/20/2006 SARS-COV-2 (COVID-19) - MODERNA(Discontinued) 04/28/2022,06/11/2021 Td (Adult), adsorbed 07/07/2010 Social History Tobacco Use Types Packs/Day Years Used Date Smoking Tobacco: Never Smokeless Tobacco: Never Alcohol Use Standard Drinks/Week Comments Never 0 (1 standard drink = 0.6 oz pur e alcohol) [facility] Utilities Answer Date Recorded In the past 12 months has e [employer], gas, oil, or water [employer] threatened to shut off services in your [...] declined 12/11/2021 How often do you attend samaritan or episcopal serv ices? Patient declined 12/11/2021 Do you belong to any clubs o r organizations such as samaritan groups, unions, fraternal or athletic groups, or [...] and heating? Not hard at all 12/11/2021 [facility] - Occupational Stress Questionnaire Answer Date Recorded [...] 03/01/2024 8:38 AM CDT Plan of Treatment Not on file Medical Devices Implanted Type Area Personal Attendant Device Identifier Shelf Expiration Date Model / Serial / Lot Stnt Uret Inl 6fx24 - Sna - [id number] Implanted:Qty : 1 on 04/05/2023 by Erika Londono M.D. at [facility] Ureteral Stent C.[employer].Bard [id number] 04/28/2027 [id number] / NA / [id number] Explanted Type Area Personal Attendant Device Identifier Shelf Expiration Date Model / Serial / Lot Stnt Uret Inl 7fx24 - [id number] Implanted:Qty : 1 on 02/22/2023 by Danita Munoz M.D. at [facility] Explanted:Qty : 1 on 04/05/2023 by Erika Londono M.D. Ureteral Stent Left: Ureter C.R.Bard [id number] 08/06/2026 [id number] / / [id number] Procedures The patient is currently admitted. 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 CBC WITH DIFFERENTIAL, B Routine 02/02/2024 11:03 AM CDT Medication Therapy Retirement Not Anticoagulant FELBAMATE (FELBATOL) LEVEL, S Routine 02/02/2024 11:03 AM CDT 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) LEVETIRACETAM LEVEL, S Routine 02/02/2024 11:03 AM CDT 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) RUFINAMIDE, S Routine 02/02/2024 11:03 AM CDT 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) COMPREHENSIVE METABOLIC PANEL, S/P Routine 02/02/2024 11:03 AM CDT Medication Therapy Retirement Not Anticoagulant RETICULOCYTES, B Routine 02/02/2024 11:03 AM CDT 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 Phosphorus (Inorganic), S 4.2 2.5 - 4.5 mg/dL 03/04/2024 4:21 AM CDT DTL Blood (Blood, Venous) 03/04/2024 3:27 AM CDT 03/04/2024 3:58 AM CDT Basil Miranda APRN, C.N.P. LAB BLOOD ADD-ON Performing Organization Address [facility] [place] [address] * (ABNORMAL) Basic Metabolic Panel (03/04/2024 3:27 [...] LAB BLO OD ADD-ON Performing Organization Address [facility] Co de Phone Number [facility] [address] [place] [address], [facility] [address] [place] [address] * Buttock/Sacrum-Nursing Image Exam (03/03/2024 10:15 PM [...] RAD IMAGI NG PROCEDURES Performing Organization Address [facility] Co de Phone Number IIMS NA * Glucose, POCT (03/03/2024 8:48 [...] LAB POCT ORDERABLES- MANUAL Performing Organization Address [facility] Co de Phone Number [facility] [address] [place] [address], [facility] PCLX [facility] [address] [place] [address] * Patient Status (03/02/2024 5:15 PM CDT) Only the most recent of5 resultswithin the time period is included. FIO2 0.30 0.21=AIR 03/02/2024 5:1 8 PM CDT [facility] Device Vent 03/02/2024 5:1 8 PM CDT [facility] Blood 03/02/2024 5:15 PM CDT 03/02/2024 5:18 PM CDT Gardenia Gordillo APRN, C.N.P., M.S.N. LAB BLOOD NON ADD-ON Performing Organization Address [facility]/ZIP Co de Phone Number [facility] [address] [place] [address], [facility] STMA [facility] [address] [place] [address] * Blood Gas without Coox, Arterial (03/02/2024 [...] CDT 03/02/2024 5:18 PM CDT Gardenia Gordillo APRN, C.N.P., M.S.N. LAB BLOOD NON ADD-ON [facility] [address] [place] [address], [facility] [address] [place] [address] * DX Chest Portable Post PICC Placement [...] PICC tip near the superior cavoatrial junction. Gardenia Gordillo APRN, C.N.P., M.S.N. IMG DIAGNOSTIC IMAGING PROCEDURES * DX [...] airspace opacities in both lower lungs. ETT. Gardenia Gordillo APRN, C.N.P., M.S.N. IMG DIAGNOSTIC IMAGING PROCEDURES * Ammonia (03/02/2024 12:50 PM CDT) Ammonia, P 27 <=30 mcmol/L 03/02/2024 1:36 PM CDT DTL Blood (Blood, Arterial) 03/02/2024 12:50 PM CDT 03/02/2024 1:06 PM CDT Gardenia Gordillo APRN, C.N.P., M.S.N. LAB BLOOD NON ADD-ON [facility] [address] [place] [address], [facility] [address] [place] [address] * Place peripherally inserted central catheter (PICC) [...] - 80.0 mcg/mL 03/03/2024 3:14 PM CDT [facility] Comment: ----ADDITIONAL INFORMATION---- This test was developed and its performance characteristics determined by [facility] in a manner consistent with CLIA requirements. This test has not been cleared or approved by the U.S. Food and Drug Administration. Blood (Blood, Arterial) 03/02/2024 11:18 AM CDT 03/02/2024 6:03 PM CDT Gardenia Gordillo APRN, C.N.P., M.S.N. LAB BLOOD NON ADD-ON Performing Organization Address [facility]/ZIP Co de Phone Number [facility] [address] [place] [address] [facility] [address] [place] [address] [place] [address] * (ABNORMAL) Levetiracetam Level (03/02/2024 11:18 AM CDT) Only the most recent of2 resultswithin the time period is included. Levetiracetam, S 134.2(H) 10.0 - 40.0 mcg/mL 03/03/2024 11:29 AM CDT [facility] Comment: ----ADDITIONAL INFORMATION---- This test was developed and its performance characteristics determined by [facility] in a manner consistent with CLIA requirements. This test has not been cleared or approved by the U.S. Food and Drug Administration. Blood (Blood, Arterial) 03/02/2024 11:18 AM CDT 03/02/2024 2:48 PM CDT Gardenia Gordillo APRN, C.N.P., M.S.N. LAB BLOOD NON ADD-ON Performing Organization Address [facility]/ZIP Co de Phone Number [facility] [address] [place] [address] [facility] [address] [place] [address] [place] [address] * Lamotrigine Level (03/02/2024 11:18 AM CDT) Only the most recent of2 resultswithin the time period is included. Lamotrigine, S 19.4 3.0 - 15.0 mcg/mL 03/03/2024 12:03 PM CDT [facility] Comment: ----ADDITIONAL INFORMATION---- This test was developed and its performance characteristics determined by [facility] in a manner consistent with CLIA requirements. This test has not been cleared or approved by the U.S. Food and Drug Administration. Blood (Blood, Arterial) 03/02/2024 11:18 AM CDT 03/02/2024 2:48 PM CDT Gardenia Gordillo APRN C.N.P., M.S.N. LAB BLOOD NON ADD-ON [facility] [address] [place] [address] [facility] [address] [place] [address] [place] [address] * CT Head without IV Contrast (03/02/2024 [...] No acute abnormality is evident. Tam Huang P.A.-C. M.S. IMG C T PROCEDURES * (ABNORMAL) Comprehensive Metabolic [...] Gordillo APRN, C.N.P., M.S.N. LAB BLOOD ADD-ON [facility] [address] [place] [address], [facility] [address] [place] [address] * (ABNORMAL) Cystatin C with Estimated GFR [...] AM CDT Wes Meng LAB BLOOD ADD-ON [facility] [address] [place] [address], [place] [facility] [facility] [address] [place] [address] * Cell Count and Differential, Bronchoalveolar Lavage (03/02/2024 2:38 AM CDT) Fluid Type BAL DEFAULT 03/02/2024 3:03 AM CDT DH[facility] Gross appearance Clear 03/02/20 3:03 AM CDT DH[facility] Total Nucleated Cells 10.8 x10(6) 03/02/2024 3:03 AM CDT DH Comment: ----REFERENCE VALUE---- The reference range and other method performance specifications have not been established for this body fluid. The test result must be integrated into the clinical context for interpretation. ----ADDITIONAL INFORMATION---- This test has been modified from the chassis wirer's instructions. Its performance characteristics were determined by [facility] in a manner consistent with CLIA requirements. This test has not been cleared or approved by the U.S. Food and Drug Administration. Volume Recovered 25 mL 03/02/20 3:03 AM CDT [facility] Alveolar Macrophage 15 % 03/02 4:08 AM CDT [facility] Comment: ----REFERENCE VALUE---- The reference range and other method performance specifications have not been established for this body fluid. The test result must be integrated into the clinical context for interpretation. Lymphocytes 3 % 03/02/2024 4:08 AM CDT [facility] Comment: ----REFERENCE VALUE---- The reference range and other method performance specifications have not been established for this body fluid. The test result must be integrated into the clinical context for interpretation. Neutrophils 76 % 03/02/2024 4:08 AM CDT [facility] Comment: ----REFERENCE VALUE---- The reference range and other method performance specifications have not been established for this body fluid. The test result must be integrated into the clinical context for interpretation. Other Cells 6 % 03/02/2024 4:08 AM CDT [facility] Comment: ----REFERENCE VALUE---- The reference range and other method performance specifications have not been established for this body fluid. The test result must be integrated into the clinical context for interpretation. Comment See Comment 03/02/2024 10:55 AM CDT [facility] Comment:Others are lining ce lls.Bacteria present. Fluid 03/02/2024 2:38 AM CDT 03/02/2024 2:38 AM CDT Ivory Paredes P.A.-C. MMaySMay LAB BOD Y FLUIDS AND STOOLS ORDERABLES Performing Organization Address [facility] de Phone Number [facility] [address] [place] [address], [address] [address] * Streptococcus pneumoniae Antigen, Urine (03/02/2024 12:44 AM CDT) [facility] Streptococcus pneumoniae Ag, U Negative Negative 03/02/2024 2:42 PM CDT [facility] Comment: Negative for pneumococcal pneumonia, suggesting no [...] 03/02/2024 7:25 AM CDT Ivory Paredes P.A.-C. M.SMay LAB FARIHA ROBIOLOGY - GENERAL ORDERABLES Performing Organization Address [facility] Co de Phone Number [facility] [address] [place] [address] [facility] [address] [place] [address] [place] [address] * Legionella Antigen, Urine (03/02/2024 12:44 AM CDT) Legionella Ag, U Negative Negative 03/02/20 2:20 PM CDT [facility] Comment: Negative for L. pneumophila serogroup 1 [...] This assay was performed using the FDA-cleared [employer] Legionella Urinary Antigen Test, a rapid immunochromatographic assay. Urine (Urine, Indwelling Catheter) 03/02/2024 12:44 AM CDT 03/02/2024 7:25 AM CDT Ivory Paredes P.A.-C., M.S. LAB FARIHA ROBIOLOGY - GENERAL ORDERABLES Performing Organization Address City/State/[facility] Co de Phone Number [facility] [address] [place] [address] [facility] [address] [place] [address] [place] [address] * DX Chest Portable 1 View (03/01/2024 [...] (03/01/2024 10:55 PM CDT) Narrative Gregorio Comer R.R.TMay, L.R.T. - 03/01/2024 10:55 PM CDT Gregorio Comer R.R.TMay, L.R.T. ? 03/01/2024 10:55 PM Invasive Line Performed by: Gregorio Comer R.RBarbara, L.R.T. Authorized by: Wes Person M.B.B.S. ?? [...] Wes Meng PROCEDURE/MINOR RANDOLPH RGICAL ORDERABLES * IL BRONCHOSCOPY W ALVEOLAR LAVAGE (03/01/2024 10:30 PM [...] PHYLICIA participated or performed the procedure. The seo consultant participated in or was aware of the procedure. Ivory Paredes P.A.-C., MMaySMay PROCEDU RE/MINOR SURGICAL ORDERABLES * IL INTUB W ETT, LDA ANE ENDOTRACHEAL AIRWAY [...] ETT location: oral VL device: glide scope [place] scope blade size: 4 Tube size: 7.5 [...] PHYLICIA participated or performed the procedure. The seo consultant participated in or was aware of the procedure. Ivory Paredes P.A.-C. MMayS. ANESTHE BANDRA ORDERABLES * Patient Status (03/01/2024 9:02 PM CDT) Only the most recent of7 resultswithin the time period is included. FIO2 0.28 0.21=AIR 03/01/2024 9:07 PM CDT ST[facility] O2 Flow 8.0 L/min 03/01/2024 9:07 PM CDT [facility] Device CFM 03/01/2024 9:07 PM CDT [facility] Spont. breaths/min 25 03/01/2024 9:07 PM CDT [facility] Blood 03/01/2024 9:02 PM CDT 03/01/2024 9:07 PM CDT Ivory Paredes P.A.-C. M.S. LAB BLO OD NON ADD-ON [facility] [address] [place] [address], [facility] [address] [place] [address] * (ABNORMAL) Blood Gas without Coox, Venous [...] CDT 03/01/2024 9:07 PM CDT Ivory Paredes P.A.-C. MEfe LAB BLO OD NON ADD-ON Performing Organization Address [facility]/ZIP Co de Phone Number [facility] [address] [place] [address] * (ABNORMAL) pH (03/01/2024 8:59 PM CDT) pH 7.29(L) 7.35 - 7.45 pH 03/01/2024 9:10 PM CDT [facility] Blood 03/01/2024 8:59 PM CDT 03/01/2024 9:07 PM CDT Ivory Paredes P.A.-C. MMaySMay LAB HIS TORICAL ORDERS Performing Organization Address [facility] Co de Phone Number [facility] [address] [place] [address] * (ABNORMAL) Hepatic Function Panel (03/01/2024 8:59 [...] LAB BLO OD ADD-ON Performing Organization Address [facility] Co de Phone Number [facility] [address] DTL [facility] [address] [place] [address] * Type and Screen (with Reflex Antibody ID) (03/01/2024 8:59 PM CDT) [facility] O Pos Not applicable 03/01/2024 9:30 PM CDT STRM Antibody Screen Negative Negative 03/01/2024 9:49 PM CDT STRM Type & Screen Expiration 03/04/2024 23:59 03/01/2024 9:30 PM CDT STRM Testing Location Kim DEFAULT 03/01/2024 9:09 PM CDT STRM Blood (Blood, Venous) 03/01/2024 8:59 PM CDT 03/01/2024 9:09 PM CDT Ivory Paredes P.A.-C., MMaySMay LAB BLO OD BANK TEST ORDERABLES Performing Organization Address [facility] Co de Phone Number [facility] [address] [place] [address], [facility] STRM [facility] [address] [place] [address] * Magnesium (03/01/2024 8:59 PM CDT) Pathologist [facility] Magnesium, S 1.8 1.7 - 2.3 mg/dL 03/01/2024 10:19 PM CDT DTL Blood (Blood, Venous) 03/01/2024 8:59 PM CDT 03/01/2024 9:43 PM CDT Ivory Paredes P.A.-C. MMaySMay LAB BLO OD ADD-ON Performing Organization Address City/[facility]/ZIP Co de Phone Number [facility] [address] [place] [address], [facility] [address] [place] [address] * Lactate (03/01/2024 8:59 PM CDT) Only the most recent of5 resultswithin the time period is included. [facility] Lactate, P 1.4 0.5 - 2.2 mmol/L 03/01/2024 9:22 PM CDT STM Blood (Blood, Venous) 03/01/2024 8:59 PM CDT 03/01/2024 9:07 PM CDT Ivory Paredes P.A.-C. MMaySMay LAB BLO OD NON ADD-ON Performing Organization Address [facility] Co de Phone Number [facility] [address] [place] [address], [facility] [address] [place] [address] * Calcium, Ionized (03/01/2024 8:59 PM CDT) [facility] Calcium, Ionized, B 5.17 4.65 - 5.30 mg/dL 03/01/2024 9:10 PM CDT [facility] Blood (Blood, Venous) 03/01/2024 8:59 PM CDT 03/01/2024 9:07 PM CDT Ivory Paredes P.A.-C., M.S. LAB BLO OD NON ADD-ON [facility] [address] [place] [address], [place] STMA [facility] [address] [place] [address] * (TTE) 2D ECHO DOPPLER COLOR AND CONTRAST (03/01/2024 12:44 PM CDT) Pathologist [facility] Ejection Fraction 66 MC CV EIMS Mid-Ascending [...] PM CDT Comment:Specimen Source Site : Sputum Erasmo Lloyd Favio BUSTOS., Keren.N.P. LAB MICROBIOLOGY - GENERAL ORDERABLES [facility] [address] [place] [address], [place] DTL [facility] [address] [place] [address] * CT Chest Angiogram and Pulmonary Arteries [...] osseous lesion. Procedure Note Flynn Shaffer M.B.B.S., MElsy. - 02/29/2024 EXAM: CT CHEST ANGIOGRAM AND [...] pneumonia or aspirationpneumonia. Erasmo Lloyd APRN, C.N.P., BradleyN.P. IM CT PROCEDURES * Respiratory Panel, PCR, Nasopharyngeal (02/29/2024 9:12 AM CDT) Specimen Source NASOPHARYNGEAL SWAB 02/29/2024 11:04 AM CDT DTL Adenovirus Undetected Undetected 02/29/2024 11:04 AM CDT DTL Coronavirus 229E Undetected Undetected 02/29/20 11:04 AM CDT DTL Coronavirus HKU1 Undetected [...] This assay is performed using the FDA-Cleared AlticastArray Respiratory Panel 2.1 ([employer]). Swab (Nasopharynx) 02/29/2024 9:12 AM CDT 02/29/2024 9:12 AM CDT Neel Love APRNN.P., D.N.P. LAB MICROBIOLOGY - GENERAL ORDERABLES [facility] [address] [place] [address] * Staph aureus / MRSA, Nasal, PCR (02/29/2024 8:05 AM CDT) Staphylococcus aureus, PCR Negative Negative 02/29/2024 11:46 AM CDT DTL MRSA, PCR Negative Negative 02/29/2024 11:46 AM CDT DTL Swab (Nares) 02/29/2024 8:05 AM CDT 02/29/2024 9:12 AM CDT Girish Love APRN.N.P., D.N.P. LAB MICROBIOLOGY - GENERAL ORDERABLES Performing Organization Address City/[facility] Care [facility]/ZIP Co de Phone Number [facility] [address] [place] [address], [facility] [address] [place] [address] * Interpretation of Outside US Vascular (02/29/2024 6:05 AM CDT) Anatomical Region Laterality Modality Ultrasound RST LOS, Ultrasou nd ARZ LOS, Ultrasound FLA LOS, Procedural, Other, Vascular N/A Ultrasound Impressions 02/29/2024 10:22 AM CDT Positive for acute DVT in the mid to lower femoral vein through popliteal vein. Result discussed with BETO Nguyen ([id number]) by Dr. Schulte on 02/29/2024 at 0950 hours. Narrative 02/29/2024 10:22 AM CDT EXAM: ??INTERPRETATION OF OUTSIDE US VASCULAR. Bilateral lower extremity venous ultrasound performed on 02/28/2024 at outside facility. Interpretation provided without the benefit of real-time scanning or discussion with the special service representative. COMPARISON: ??None FINDINGS: ?? RIGHT: The common [...] benefit of real-time scanning ordiscussion with the special service representative. COMPARISON: None FINDINGS: RIGHT: The common femoral, [...] through poplitealvein. Result discussed with BETO Nguyen ([id number]) by Dr. Schulte on02/29/2024 at 0950 hours. Neel Love APRNN.Thierry., D.N.P. IMG US PROCEDURES * US venous LE BI-Outside US (02/28/2024 11:50 AM CDT) 02/28/2024 11:5 0 AM CDT Narrative [facility] - 02/28/2024 12:53 PM CDT This order [...] CDT) 02/28/2024 11:3 0 AM CDT Narrative [facility] - 02/28/2024 12:17 PM CDT This order [...] In System IMG DIAGNOSTIC IM AGING PROCEDURES [facility] NA * (ABNORMAL) Clobazam and Metabolite (02/02/2024 11:03 AM CDT) Clobazam 313.0(H) 30 - 300 ng/mL 02/04/2024 3:01 AM CDT [facility] N-desmethylclobazam >26726(H) 300 - 3000 ng/mL 02/04/2024 3:01 AM CDT [facility] Comment: ----ADDITIONAL INFORMATION---- This test was developed and its performance characteristics determined by [facility] in a manner consistent with CLIA requirements. This test has not been cleared or approved by the U.S. Food and Drug Administration. Blood (Blood, Venous) 02/02/2024 11:03 AM CDT 02/03/2024 2:51 PM CDT Jose Martin Eaton M.D. LAB BLOOD ADD-ON Performing Organization Address City/[facility]/ZIP Co de Phone Number [facility] [address] [place] [address] [facility] [address] [place] [address] [place] [address] * Rufinamide, S (02/02/2024 11:03 AM CDT) Rufinamide, S 9.0 5.0 - 30.0 mcg/mL 02/03/2024 1:20 PM CDT [facility] Comment: ----ADDITIONAL INFORMATION---- This test was developed and its performance characteristics determined by [facility] in a manner consistent with CLIA requirements. This test has not been cleared or approved by the U.S. Food and Drug Administration. Blood (Blood, Venous) 02/02/2024 11:03 AM CDT 02/03/2024 7:47 AM CDT Jose Martin Eaton M.D. LAB BLOOD NON ADD-ON [facility] [address] [place] [address] [facility] [address] [place] [address] [place] [address] * Reticulocytes (02/02/2024 11:03 AM CDT) Reticulocytes, B 1.76 0.60 - 2.71 % 02/02/2024 3:18 PM CDT [facility] Absolute Reticulocyte 63.7 30.4 - 110.9 x10(9)/L 02/02/2024 3:18 PM CDT [facility] Blood (Blood, Venous) 02/02/2024 11:03 AM CDT 02/02/2024 3:00 PM CDT Jose Martin Eaton M.D. LAB BLOOD ADD-ON [facility] [address] [place] [address], [facility] AUST [facility] - [facility] [address] [place] [address] * (ABNORMAL) CBC with Differential, Blood (02/02/2024 [...] Jose Martin Eaton M.D. LAB BLOOD ADD-ON [facility] [address] [place] [address], [facility] FB60 [facility] [place] [address] [place] [address] * [place] Swallow Function with Video and [...] further details andrecommendations. Pedro Pablo Kline M.D. [facility] FLUOROSCOPY PROC EDURES * Non-Endoscopic Tube Procedure (12/29/2023 1:23 PM CDT) 12/29/2023 1:23 PM CDT Impressions [facility] - 12/29/2023 1:52 PM CDT Post-op Diagnoses: ? - The PEG-J tube was dislodged and was removed and replaced with a 3.5 ? cm long, 22 Fr Avanos FARIHA-SMALL Low-profile PEG-J gastrostomy tube. ? - No specimens collected. Narrative [facility] - 12/29/2023 1:52 PM CDT Gary 6 [...] to tube site or tube call ? [phone] Wednesday - Wednesday 7;30 am-4:30 pm or after hours, weekends, ? 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 [phone] and wait for MD to answer. May [...] 3.5cm long. A 3.5cm long, 22 Fr frestyls FARIHA-SMALL ? Low-profile PEG-J tube was lubricated [...] GI PROCEDURE ORDERAB LES Performing Organization Address [facility] Co de Phone Number MAE PROVATION NA * [place] Fluoro Less Than 1 Hour (12/29/2023 1:19 PM CDT) Narrative [facility] LOS RST - 12/29/2023 1:20 PM CDT This exam does not require a radiologist review or interpretation. Please refer to the patient's medical record on this date for clinical details. Pedro Pablo Kline M.D. IMG FLUOROSCOPY PROC EDURES Performing Organization Address [facility] de Phone Number ERCP LOS RST * [...] Neil M.D. LAB BLOOD NON ADD- ON [facility] [address] [place] [address], [facility] STMA [facility] [address] [place] [address] * (ABNORMAL) Venous Blood Gas and Electrolytes [...] LAB POCT ORD ERABLES - DEVICE POC [facility] [address] [place] [address], [facility] [address] [place] [address] [facility] [address] [place] [address] * EEG (12/28/2023 7:29 AM CDT) Narrative [...] Kline M.D. NEUROLOGY ORDERABLES Performing Organization Address [facility] de Phone Number MMODAL NA * ECG 12 Lead (12/27/2023 2:34 PM CDT) Ventricular Rate ECG/Min 95 BPM MUSE IL Interval 150 ms MUSE QRSD Interval 96 ms MUSE QT Interval 358 ms MUSE QTC Interval 449 ms MUSE P [place] 19 degrees MUSE R [place] -4 degrees MUSE T Wave [place] 84 degrees MUSE 12/27/2023 2:34 PM CDT [...] Kline M.D. ECG ORDERABLES Performing Organization Address [facility] de Phone Number MUSE NA * (ABNORMAL) [...] M.D. LAB BLOOD ADD-ON Performing Organization Address [facility] Co de Phone Number [facility] [address] [place] [address], [facility] [address] [facility] [address] [place] [address] * Non-Radiology Image-Pulmonary And CC Medicine Image [...] RAD IMAGI NG PROCEDURES Performing Organization Address [facility] de Phone Number IIOR NA * Lactate, POCT (12/26/2023 11:54 PM CDT) Lactate, POCT 1.12 0.50 - 2.20 mmol/L 12/27/2023 12:10 AM CDT PCL[facility] Sample Site, POCT Venstick 12/27/2023 12:10 AM CDT PCLX Blood 12/26/2023 11:5 4 PM CDT 12/27/2023 12:10 AM CDT Unknown Provider LAB POCT ORDERABLES - DEVICE Performing Organization Address [facility] Co de Phone Number POC [facility] [address] [place] [address], [facility] [address] [place] [address] * Feeding Tube Replacement (12/26/2023 9:36 PM [...] CONSENT Consent obtained: verbal Consent given by: [facility] [employer] All relevant documentation and testing [...] at the following links: For Healthcare Providers: https://www.fda.gov/media/004144/download For Patients: https://www.fda.gov/media/992800/download Infl A/B, SARS CoV-2, PCR, Source Swab, Nasopharynx 12/26/2023 7:56 PM CDT [facility] Swab (Nasopharynx) 12/26/2023 7:50 PM CDT 12/26/2023 7:56 PM CDT Jamia Lozano M.D. LAB MICROBIOLOGY - GENERAL ORDERABLES Performing Organization Address City/[facility]/ZIP Co de Phone Number [facility] [address] [place] [address] * Bacterial Culture, Aerobic + Susceptibility, Urine (12/26/2023 7:37 PM CDT) Urine Culture No growth after 1 day of incubation. 12/28/2023 7:28 AM CDT DTL Urine (Urine, Midstream) 12/26/2023 7:37 PM CDT 12/26/2023 8:36 PM CDT Comment:Specimen Source Site : Urine Jamia Lozano M.D. LAB MICROBIOLOGY - GENERAL ORDERABLES Performing Organization Address City/[facility]/ZIP Co de Phone Number [facility] [address] [place] [address], [facility] DTL [facility] [address] [place] [address] * CT Abdomen Pelvis with IV Contrast [...] LAB URINE ORDERABLE S Performing Organization Address City/[facility]/ZIP Co de Phone Number [address] [address], [facility] [address] [address] * Microscopic Automated (12/26/2023 7:07 PM CDT) Microscopy Normal 12/26/2023 7:54 PM CDT DTL RBC None Seen <3 /hpf 12/26/2023 7:54 PM CDT DTL WBC None Seen /hpf 12/26/2023 7:54 PM CDT DTL Comment: ----REFERENCE VALUE---- <4 ??(Males) <11 (Females) Urine 12/26/2023 7:07 PM CDT 12/26/2023 7:37 PM CDT Jamia Lozano M.D. LAB URINE ORDERABLE S [facility] [address] [place] [address], [facility] [address] [place] [address] * pH, Urine (12/26/2023 7:07 PM CDT) pH, U 7.0 4.5 - 8.0 12/26/2023 7:5 0 PM CDT DTL Urine 12/26/2023 7:07 PM CDT 12/26/2023 7:37 PM CDT Jamia Lozano M.D. LAB URINE ORDERABLE S Performing Organization Address City/[facility]/ZIP Co de Phone Number [facility] [address] [place], [place] [address] [address] [place] [address] * Osmolality, Urine (12/26/2023 7:07 PM CDT) Osmolality, U 237 150 - 1150 mOsm/kg 12/26/2023 7:50 PM CDT DTL Urine 12/26/2023 7:07 PM CDT 12/26/2023 7:37 PM CDT Jamia Lozano M.D. LAB URINE ORDERABLE S Performing Organization Address City/[facility]/ZIP Co de Phone Number [facility] [address] [place] [address], [facility] [address] [place] [address] * (ABNORMAL) Urinalysis, with Microscopic: Urine, Catheter [...] LAB URINE ORDERABLE S Performing Organization Address City/State/[facility] Co de Phone Number [facility] [address] [place] [address], [place] [address] [facility] [address] [place] [address] * Dipstick, POCT, Urine (12/26/2023 7:06 PM CDT) Glucose, POCT, U Negative Negative mg/dL 12/26/2023 7:08 PM CDT [facility] Ketone, POCT, U Negative Negative mg/dL 12/26/2023 7:08 PM CDT [facility] Specific [place], POCT, U 1.015 1.005 - 1.030 12/26/2023 [...] LAB POCT ORDERABLES - DEVICE POC RST [facility] [address] [place] [address], [facility] PC[facility] [address] [place] [address] * Bacteria / Christopher Culture, Blood #2 (12/26/2023 6:06 PM CDT) Only the most recent of2 resultswithin the time period is included. Bacteria/Isabell da Culture, Blood No growth after 5 days of incubation. 12/31/2023 7:02 PM CDT DTL Blood (Blood, Peripheral Draw) 12/26/2023 6:06 PM CDT 12/26/2023 6:17 PM CDT Comment:Specimen Source Site : Blood Narrative [facility] - 12/31/2023 7:02 PM CDT Received Bactec aerobic and Bactec anaerobic bottles Jamia Lozano M.D. LAB MICROBIOLOGY - GENERAL ORDERABLES Performing Organization Address [facility]/ZIP Co de Phone Number [facility] [address] [place] [address], [facility] DTL [facility] [address] [place] [address] * (ABNORMAL) Lactate for Sepsis with Reflex (12/26/2023 5:49 PM CDT) Pathologist [facility] Lactate, P 2.3(H) 0.5 - 2.2 mmol/L 12/26/2023 6:25 PM CDT [facility] Blood (Blood, Venous) 12/26/2023 5:49 PM CDT 12/26/2023 6:12 PM CDT Jamia Lozano M.D. LAB BLOOD NON ADD-O N Performing Organization Address City/[facility]/ZIP Co de Phone Number [facility] [address] [place], [place] [address] STMA [facility] [address] [place] [address] * (ABNORMAL) Prothrombin Time (PT) (12/26/2023 5:49 PM CDT) [facility] Prothrombin Time, P 12.8(H) 9.4 - 12.5 sec 12/26/2023 6:21 PM CDT [facility] INR 1.2 0.9 - 1.1 12/26/2023 6:21 PM CDT [facility] Comment: ----ADDITIONAL INFORMATION---- Standard intensity warfarin therapeutic range: 2.0 to 3.0 ?? High intensity warfarin therapeutic range: 2.5 to 3.5 Blood (Blood, Venous) 12/26/2023 5:49 PM CDT 12/26/2023 6:12 PM CDT Jamia Lozano M.D. LAB BLOOD ADD-ON Performing Organization Address City/[facility]/ZIP Co de Phone Number [facility] [address] [place] [address] * (ABNORMAL) Lipase (12/26/2023 5:49 PM CDT) [facility] Lipase, S 8(L) 13 - 60 U/L 12/26/2023 6: 49 PM CDT DTL Blood (Blood, Venous) 12/26/2023 5:49 PM CDT 12/26/2023 6:34 PM CDT Jamia Lozano M.D. LAB BLOOD ADD-ON Performing Organization Address City/[facility]/ZIP Co de Phone Number [facility] [address] [place], [place] [address] [place] [address] DTL [facility] [address] [place] [address] * Vitamin B12 Assay (12/26/2023 5:48 PM CDT) [facility] Vitamin B12 Assay, S 656 180 - [...] Pedro Pablo Kline M.D. LAB BLOOD ADD-ON [facility] [address] [place] [address], [place] [address] [facility] [address] [place] [address] from Last 3 Months Advance Directives For more information, please contact: [phone] * Full Code (Latest Code Status on [...] Answer Comments Full Code: Discussed Discussed with thierry arias Care Teams Database Admin Relationship Specialty Start Date End Date Elsewhere, Pcp PCP - General Family Medicine 06/24/18
--- OUTSIDE RECORDS SUMMARY | 2024-03-04 05:16 | XMS_ITS | Encounter Summary ---
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 Patient declined 12/11/2021 Do you belong to any clubs o r organizations such as [employer] groups, unions, fraternal or athletic groups, or [...] and heating? Not hard at all 12/11/2021 [facility] - Occupational Stress [...] Comments NURSING IMAGE EXAM Routine 02/29/2024 8: 55 AM CDT documented in this encounter Results * Abdomen-Nursing Image Exam (02/29/2024 8:55 AM CDT) 02/29/2024 8:54 AM CDT Narrative [...] documented as of this encounter Care Teams Rope Silica Machine Operator Relationship Specialty Start Date End Date Elsewhere, Pcp PCP - General Family Medicine 06/24/18 documented as of this encounter
--- OUTSIDE RECORDS SUMMARY | 2024-03-04 05:17 | XMS_ITS | Encounter Summary ---
Author Organization [facility] Address [address] [place] [id number] Care Team Providers Care Stogy Roller Name Role Phone Elsewhere, Pcp Primary Care Provider Unavailabl e Encounter Details Date Type Department Care Team (Latest Contact Info) Description 02/28/2024 2:51 PM CDT - Present Hospital Encounter [facility], [facility], Sixth Floor [address] [place] [phone] Wes Person M.B.B.S. [address] [place] [phone] Acute Respiratory Failure With Hypoxia (HCC) (Primary Dx); Aspiration Pneumonia Secondary to Procedure Social History Tobacco Use Types Packs/Day Years Used Date Smoking Tobacco: Never Smokeless Tobacco: Never Alcohol Use Standard Drinks/Week Comments Never 0 (1 standard drink = 0.6 oz pur e alcohol) [facility] Utilities Answer Date Recorded In the past 12 months has e riskmethods, gas, oil, or water [employer] threatened to shut off services in your [...] declined 12/11/2021 How often do you attend mu-ism or adventist serv ices? Patient declined 12/11/2021 Do you belong to any clubs o r organizations such as mu-ism groups, unions, fraternal or athletic groups, or [...] and heating? Not hard at all 12/11/2021 [facility] - [...] Mass Index 28.56 03/01/2024 8:38 AM CDT documented in this encounter Discharge Instructions * Discharge Instr - Diet* Fela Mann RDN, LD - 03/01/2024 2:28 PM CDT NUTRITION Summary provided by: Fela Mann RDN, LD Date completed: 03/01/2024 Oral diet: {Oral diet:65197} Feeding tube information: Transgastric Jejunal 22 [facility] TGJ (transgastric jejunal) *Do Not Rotate* Who placed the tube: [facility] Date of tube placement: December 29, 2023 To maintain enteral access the patient's feeding tube should be replaced at regular intervals. Recommended replacement for feeding tube with internal balloon is every 3-5 months. Tube feeding program: Formula: Promote Feeding method: Continuous pump controlled Feeding schedule/goal: mL/hour over hours. Water flushes: {Water flushes:01774} Vitamin/mineral supplementation: {Vitamin/mineral supplementation:23089} This program provides calories and grams protein per day. Monitor your weight 1-2 time(s) per week. Anthropometrics: Weight: 66.9 kg Height: 156 cm BMI (Calculated): 27.5 kg/m?? Estimated Needs: Total Calorie Needs: 2552-2925 calories/day Method to Estimate Energy Needs: kcal/kg (22-25 kcal/kg) Weight Used for Equation Calculations: 66.9 kg Total Protein Needs: 80 - 100 grams/day Method to Estimate Protein Needs (g/kg): 1.2 - 1.5 gm/kg Weight Used to Calculate Protein Needs (Kg): 66.9 kg Your Durable Medical Equipment (DME)/Infusion company for tube feeding supplies is: [place]: ; [employer] . Please contact this DME company with questions about delivery or re-ordering your supplies and formula. To schedule an appointment with Home Enteral Nutrition team, call . For questions about the recommended tube feeding program and care of your tube, contact Home Enteral Nutrition clinic department. Wednesday - Wednesday, 8 a.m. - 4 p.m. documented in this encounter Progress Notes * Gunjan Pickering, PharmMayD., R.Ph., [facility] - 03/03/2024 1:46 PM CDT Pharmacist Progress Note Reason for admission: 44 year old male admitted to [facility] Medical ICU on 02/28/2024 for acute hypoxemicrespiratory secondary to community acquired pneumonia. 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 Family will provide guidance on when to use rescue benzodiazepines vs extra 200mg of Keppra if needed. Cardiovascular: blood pressure supported with NE, sinus Respiratory: intubated due to difficulty maintaining secretions, SCMV 30% Neph: Scr at approximate BL 0.3-0.4, cystatin C eGFR demonstrating normal renal function, UOP ID: no leukocytosis, afebrile Does have documented AGEP/SJS to Augmentin, however has tolerated ceftriaxone TALK SHOW HOST/doxycycline for CAP OSH blood culture representing a contaminant 1/2 (+) Staph epidermidis Endo/GI: goal BG <180 and not hypoglycemic, Tube feeds restarted, + BR Heme: acute LLE DVT, apixaban initiated Prophylaxis: Apixaban, PPI ASSESSMENT / PLAN Persistent somnolence: History of complex seizure disorder with regular breakthrough seizures. Has not returned to baseline mentation since admission. AED levels pending. Neurology consulted to assist in interpretation and potential adjustment. Acute hypoxic respiratory failure secondary to pneumonia with likely some component of aspiration as well: Plan to continue ceftriaxone for a 7-day course and 5-day course of doxycyline. BAL culturesgrowing GNB thus far. Acute LLE DVT: Continuing Apixaban. Had some oozing around G-tube site as well as some mucosal oozing in mouth/nose. Deferring initial 10 mg BID dosing. Hemoglobin stable. Gunjan Pickering PharmMayD., R.Ph., [facility] [phone] * Eloy Epps M.T.S. - 03/03/2024 10:00 AM CDT [facility] Spiritual Care Progress Note Patient: Say Hilario Age:44 y.o. Location: [id number] Reason(s) for encounter: Spiritual Care contact to introduce spiritual care service and assess for potential spiritual care needs. Spiritual Care contact for ongoing spiritual care. Spiritual Care contact per Family's request. Spiritual Care contact for adventist rites/sacramental encounter. Summary: I was able to meet with Say Hilario who was in bed and intubated and unable to engage. Family members were present at his bedside. One of the healthcare staff was also present. The family shared a bit about his health journey. The family narrated that they are hopeful . The family expressed their solid julito in God and requested for continued prayer for Say. Spiritual Assessment Anabaptism Identification / Spiritual Practices: Say is a Latter Day Coping and support: Has family support Spiritual well-being, hopes and resources: Prayer was shared for the continued healing of the patient Spiritual Needs and/or Concerns: No new spiritual needs identified at the time Spiritual Care interventions: Introduced the role as member of the interdisciplinary care team and assessed spiritual care needs/concerns of patient and/or family Therapeutic and supportive listening was provided with the aim of allowing patient/family expression of emotions, hopes and worries regarding current medical condition and life stage. Facilitated adventist/spiritual practices (prayer, blessing, sacred texts, adventist item) with theaim to reinforce patient's spiritual wellness and connection with source of sacredness. Spiritual Care outcomes: Patient/family became familiar with the role of spiritual care provider and identified spiritual care needs. Patient/family achieved a sense of spiritual peace. Patient/family expressed feeling comforted by prayer Patient/family was appreciative of spiritual care support. Spiritual Care Plan / Recommendations: Will remain available for spiritual care as needed or requested. Chaplains can be contacted by paging [phone] ([place]) or [phone] ([employer]). * Wes Person M.B.B.S. - 03/03/2024 7:01 AM CDT SUBJECTIVE This is a supervisory note for the ICU team. I have personally seen and examined the patient, and reviewed all pertinent laboratory, vital signs and imaging data. I have reviewed the history, physical examination, impression, report, and plan with the team in detail and agree with the documentationoutlined in their notes from today. Relatively stable night. Still minimally interactive on no sedation, and not initiating spontaneousventilation currently. OBJECTIVE BP (!) 93/49 (BP Location: Right arm;Lower, Patient Position: Semi-recumbent) Pulse 84 Temp 37 ??C (Axillary) Resp 18 Ht 156 cm Wt 68.6 kg SpO2 98% BMI 28.19 kg/m?? 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 male who is admitted to the ICU with acute respiratory failure secondary to aspiration pneumonia. His presentation was complicated by DVT. He also had worsening of his mental status. At baseline, he sits in bed and plays with toys, and is able to eat for pleasure. Currently, he is minimally responsive only opening eyes and frequently withabnormal reflexes including poor cough. PLAN BY SYSTEMS: 1. FOREIGN EXCHANGE TRADER: We have sent off antiepileptic levels although many of these are send out tests. Our Neurology ICU team are following. CT head was negative. We are continuing his complex home medication regimen. 2. Cardiovascular: Continue norepinephrine for a mean arterial pressure of 60-65 mmHg. He is central access via PICC line. 3. Respiratory: Spontaneous breathing trial today. He is currently on ASV 80% with no spontaneous effort. We will trial spontaneous mode with long apnea time later today. 4. Renal: He has been fluid positive last two days, and we will plan on some diuresis today. 5. GI: On home tube feeds. PPI. 6. Hematology: Apixaban 5 mg b.i.d. for deep venous thrombosis. 7. ID: Antibiotics will finish on 03/05 (completed doxycycline, currently finishing a course of cefepime). Outside blood cultures grew one bottle of Staph epidermidis, presumed contaminant. 8. Lines/Devices: Arterial line and PICC line are both needed for ongoing care. 9. PT/Rehab: Passive stretches. 10: Goals of care / disposition: Remain in the ICU. Update family daily. Remainder of issues per the systems-based plan of care as outlined in the ICU notes from today. Critical care time 30 minutes. This is time spent at this critically ill patient's bedside activelyinvolved in patient care as well as the coordination of care and discussions as appropriate. This does not include any procedural time which has been billed separately. * Basil Miranda, ASSISTANT COUNSEL, C.N.P. - 03/03/2024 4:37 AM CDT SUBJECTIVE Brief Summary: Mr. Hilario is a 44-year-old male patient with medical comorbidities consisting of [place]-Gastaut syndrome who was admitted to the medical intensive care unit for hypoxic and hypercapnic respiratory failure in the setting of community- acquired pneumonia. Interval Events: Night 03/02: - Contacted Neuro re: query subclinical seizures > Recommended Neuro Cx in AM with possible spotEEG and/or MRI - Off sedation, still altered - remains on NE Day 03/02: - Sedation vacation - Continue Cefepime - Wean Norepinephrine - No further oozing from calista tube - OSH blood cultures Staph Epi 1/2 bottles, contaminant - Head CT negative - Curbside neuro, consult in 48 hours if mental status not improved - AED levels pending - Ileus found, NPO and gastric residual pulled, further decompression not warranted OBJECTIVE VITAL SIGNS I have reviewed the current vital sign data as applicable. PHYSICAL EXAMINATION General: 44 y.o. male lying in bed. No acute distress. Skin: No rash or lesion noted and skin warm and dry. Eyes: Pupils equal, round and reactive to light. Anicteric Sclerae. ENT: Oropharynx anterior and posterior clear, mucous membranes moist. Currently on Mechanical Ventilator. Heart: Regular rate and rhythm. S1/S2. No M/G/C/R noted. Lungs: Diminished to auscultation with good air entry bilaterally. No accessory muscle usage. Abdomen: Soft and nondistended. Normoactive bowel sounds in all 4 quadrants. Extremities: Trace bilateral lower extremity edema. Mental: Opens eyes spontaneously at times. DIAGNOSTICS I have reviewed relevant laboratory, imaging, and other diagnostics as applicable. ASSESSMENT / PLAN #1 Leukemia Lymphocytic Acute Remission (HCC) #2 Pneumonia #3 Brain Stem Stroke Syndrome #4 Apnea Sleep Obstructive #5 Acute Respiratory Failure With Hypoxia (HCC) #6 Acute Embolism And Thrombosis Of Left Femoral Vein ([facility]) Plan By Systems: NEURO # Ayaan-Gastaut Syndrome # Developmental Delay # History of Lateral Medullary Stroke # Sedation # Query Subclinical Seizure Activity - Monitor neuro status - Seizure precautions - Sedation: Propofol, wean for sedation vacation. Weaned off on 03/02. - Daily SAT/SBT - Continue home medications: Baclofen 20 mg QID, Cannabidiol 400 mg AM and 600 mg PM, Clobazam 15 mg AM and 10 mg PM, Felbamate 1500 mg AM and 1200 mg BID, Lamotrigine 350 mg BID and 350 mg QHS, Levetiracetam 1500 mg AM and 1600 mg PM, and Rufinamide 200 mg AM and 400 mg PM. - Pain regimen: Acetaminophen 1000 m g Q6H PRN - Head CT 03/02: Negative - Neurology ICU consulted CARDIAC/CV # Hypotension - Maintain MAP > 65 - 75 - Arterial line - Continue Norepinephrine to maintain MAP goal - Fluid status: net negative PULMONARY # Chronic Nocturnal Supplemental Oxygen (1 L nasal cannula) # Community Acquired Pneumonia # Acute on Chronic Respiratory Failure with Hypoxemia # Mechanical Intubation # Status Post Bronchoscopy 03/01/24 - Maintain SpO2 > 92% - Continue mechanical ventilation: ASV P 5, 40%. - Intubated 03/01 (ETT 7.5) - Chronic oxygen home use: 1 L NC nocturnally. - Daily SBT - Pulmonary hygiene: DuoNeb QID PRN, Chlorhexidine mouthwash BID, and frequent oral care. - Bronch with BAL sent 03/01/24 - CXR 03/02: Right PICC tip near the superior cavoatrial junction. RENAL # No acute issues - Goal net fluid balance: even - Gama catheter - Strict I&O and daily weight - Monitor renal function and electrolytes daily - Avoid nephrotoxins and renally adjust medications as able - Ditropan 5 mg TID GI # Calista Tube Status # Oozing/Bleeding from Calista Tube Site - Diet: NPO and TF: Peptamen AF with a goal of 55 cc/hr. - Antiemetics: None - Bowel regimen: Bisacodyl suppository 10 mg daily PRN, MiraLAX 17 g daily, and Senokot-S 1 tablet BID. - GI PPX: Pantoprazole 40 mg IV daily - ABD XRAY 03/02: gaseous dilatation of small bowel loops in the central abdomen and the transverse colon. Findings are most suggestive of adynamic ileus ID # Community Acquired Pneumonia # Leukocytosis, resolved - Blood cultures 02/27 OSH: 1/2 bottles + GPC - Blood culture 03/01: NGTD - Sputum cultures 02/28: 2+ Yeast and Stenotrophomonas 2+ - BAL 03/01: pending - Antibiotics: - Cefepime (03/02-03/03) - Vancomycin (03/01) - Doxycycline (02/27 - EOT 03/02) - Ceftriaxone (02/27 - 03/01 and 03/03) - Bactrim (03/03 start) HEME/ONC # Anemia # Left Lower Extremity DVT # Oozing/Bleeding from Calista Tube Site - No signs of active/acute bleeding - Monitor CBC daily - DVT PPX: Apixaban 5 mg BID (L LE DVT) - Loading dosing stopped 03/01 due to oozing. ENDOCRINE # Hypoglycemia secondary to lack of Tube Feeding - Monitor blood glucose 4 times daily - Notify provider for blood glucose > 140 or <70 - Hypoglycemia protocol ordered RHEUM/MUSK # No active issues OTHER PT/OT/ST: As indicated by therapy services Code Status: Full Code Disposition: - ICU Level Cares - Family: Shelby Sapp * David Arreaga, R.N., C.W.C.N. - 03/02/2024 10:[address] [facility] Wound RN consulted to assess Say Hilario skin alterations. Wound assessment, pain, andBraden score noted in the flowsheet. The patient consented to photography of the affected area for clinical trending purposes. Images were taken and are available in QREADS. History: Per provider note, the patient was admitted to the hospital for acute hypoxemic respiratory failure secondary to community-acquired versus aspiration pneumonia. The patient's significant history includes cerebrovascular disease, [place] Gastaut Syndrome, chronic dysphagia with PEJ placement, and intellectual disability. Assessment: The [facility] nurse was asked to reassess a worsening PEGJ site secondary to increased sanguinous exudate after Eliquis was initiated. On assessment, the area appears more denuded, erythemic, and with the top layer of epidermal eroded. The [facility] nurse conversed with the family/primary nurse about options to treat and manage the moisture associated skin damage. It was decided that trialing acetic acid and continuing with Mepilex Up dressings would be advantageous for the patient. 03/02/24 1000 Pain Assessment Resp Rate 15 Wound 03/12/23 Other Moisture Associated Skin Damage Abdomen Left;Lower GJ-Tube Date First Assessed/Time First Assessed: 03/12/23 0900 Present on Original Admission: Yes Wound Approximate Age at First Assessment: Unknown Primary Wound Type: Other Moisture Associated Skin Damage Location: Abdomen Wound Location Orientation: ... *Shape Irregular *Tunneling none *Signs of Infection None Unable to Measure Y *Wound Bed Open;Partial thickness;Red Odor None *Exudate Amount Scant Drainage Description Serosanguineous Ana-wound Assessment Erythema;Denuded Treatments Cleansed Periwound Treatment Cleansed (Comment) *Primary Dressing Acetic acid (with Victor/Nystatin Cream) *Primary Dressing Frequency of Change 2x/day & PRN *Secondary Dressing Foam (Mepilex Up) *Secondary Dressing Frequency of Change 2x/day & PRN Changed by Unit based nurse Ongoing management Nursing;Wound/movie operator Focused assessment completed DRESSING RECOMMENDATIONS: #1 Friction Injury Buttocks -Cleanse with Vashe wound cleanser. Pat dry. -Apply Cavilon Advanced Skin Protectant to the area. -Hold the skin apart and allow to dry at least 60 seconds, or longer, until it is no longer tacky to the touch. -Cavilon must be completely dry before applying a dressing. -Reapply Wednesday, , and Wednesday. -DO NOT apply creams, ointments, or barrier products over the Cavilon. #2 Moisture Associated Skin Damage Abdomen Left;Lower GJ-Tube -Cleanse the area with foam cleanser, being sure to remove all previous product prior to next application. -Mix equal parts of Hydrocortisone 1% cream and Nystatin cream and apply a nickel thick layer to the affected area(s). -Moisten a WypAll with 0.25% Acetic Acid. Ensure that it is not dripping wet. Lay over the affectedarea(s). -Leave in place for two hours. -Repeat two times daily. In Between Treatments: -Apply a Mepilex Up. Lift dressing daily to assess skin and perform wound cares. -Change BID after acetic acid soaks and PRN Recommended interventions for pressure redistribution and shear reduction: Offload heels on pillows at all times when in bed. Full 30 degree turns side to side every 2 hours with supine positioning only for meals. Apply and utilize the LEAF monitoring system. Reposition at least every hour while in the chair. Reposition medical devices per policy. Assess and pad the skin under and surrounding the medical devices with a prophylactic foam dressing. Keep the HOB below 30 degrees except for meals unless medically contraindicated. Apply a prophylactic sacral Mepilex?? border dressing to cover the coccyx/sacral area. Ensure the dressing is in full contact with the skin to prevent moisture- related skin breakdown. Lift twice daily to assess when used for prevention. Change every 3 days and PRN. Apply prophylactic Mepilex?? heel borders. Lift twice daily to assess the skin when used for prevention. Change every 3 days and PRN. Recommended interventions for moisture control: InterDry?? Ag placed between folds. Allow at least 2 inches of fabric exposed to air on at least one side of the skin fold for moisture evaporation. Can be used up to 5 days unless soiled with stool or urine. Do not rinse with water. Cleanse with foaming cleanser or wipes after each incontinence episode and for routine hygiene cares. Consult recommendations: NA Education: Discussed the plan of care with the patient and nursing. They agree to the plan. The WOC RN will continue to see the patient, contact or reconsult for worsening wounds or new wounds. * Gunjan Pickering, D., R.Ph., [facility] - 03/02/2024 9:34 AM CDT Pharmacist Progress Note Reason for admission: 44 year old male admitted to [facility] Medical ICU on 02/28/2024 for acute hypoxemicrespiratory secondary to community acquired pneumonia. 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 Family will provide guidance on when to use rescue benzodiazepines vs extra 200mg of Keppra if needed. Cardiovascular: blood pressure supported with NE, sinus Respiratory: intubated overnight due to difficulty maintaining secretions, SCMV 30% Neph: difficult to interpret Scr BL 0.3-0.4, today 0.6, cystatin C eGFR demonstrating normal renal function ID: no leukocytosis, afebrile Does have documented AGEP/SJS to Augmentin, however has tolerated ceftriaxone Cefepime/doxycycline for CAP OSH blood culture representing a contaminant 1/2 (+) Staph epidermidis Endo/GI: goal BG <180 and not hypoglycemic, Tube feeds restarted, + BR Heme: acute LLE DVT, apixaban initiated Prophylaxis: Apixaban, add a PPI ASSESSMENT / PLAN Acute hypoxic respiratory failure secondary to pneumonia with likely some component of aspiration as well: Plan to continue cefepime for an anticipated 7- day course and 5-day course of doxycyline. Will follow BAL cultures. Persistent somnolence: History of complex seizure disorder with regular breakthrough seizures. Has not returned to baseline mentation since admission. We had initially deferred anti-epileptic drug levels as he was early in ICU course and possible limited utility without the assistance of neurology to drive interpretation of complex drug regimen levels. Now with continued somnolence plan to discuss with neurology utility of drug levels (most are send out levels that will return in 2-5 days) verses assess utility of EEG for subclinical seizure activity. Acute LLE DVT: Continuing Apixaban. Had some oozing around G-tube site as well as some mucosal oozing in mouth/nose. Deferring initial 10 mg BID dosing. Hemoglobin downtrending, will continue to monitor. Gunjan Pickering Pharm.D., R.Ph., [facility] [phone] * Fela Mann RDN, LD - 03/02/2024 9:33 AM CDT Nutrition Care Plan Follow Up Clinical Nutrition continuing to follow patient requiring nutrition support. Patient intubated on 03/01 around 2240 ASPEN Criteria Malnutrition Status: Malnutrition criteria not met ASSESSMENT Current nutrition orders: Formula: Peptamen AF Goal: 55 mL/hr x 24 hours (currently running at 20 mL/hr) TF Supplements: none Water flushes: None ordered Calorie containing medications/therapies: none; propofol stopped today at 0540 Pressor use: norepinephrine at 0.06 mcg/kg/min Tube feeds at goal are providing a total of: 1584 kcal and 100 g protein Total free water from feeds and flushes:1070 mL Tube information: GI Tubes (Adults) Gastrostomy-jejunostomy;Percutaneous endoscopic 22 Fr Left;Lower;Quadrant (abdomen) (Active) Placement Date/Time: 12/29/23 1309 Placed by: AL6 GI Tube Type: Gastrostomy-jejunostomy;Percutaneous endoscopic Low Profile? : Yes Does it have a balloon? : Yes Balloon Volume: 10 mL GI Tube Size: 22Fr Stoma Length (cm): 3.5 Tube Location: L... RN notes the bleeding has slowed and Eliquis has since been stopped. Medications: Scheduled Meds:apixaban, 5 mg, gastric tube, BID baclofen, 20 mg, gastric tube, 4x Daily cannabidioL, 400 mg, gastric tube, Daily And cannabidioL, 600 mg, gastric tube, Daily at bedtime ceFEPIme, 2 g, intravenous, Q12H chlorhexidine, 15 mL, swish & spit, BID cloBAZam, 10 mg, gastric tube, QPM cloBAZam, 15 mg, gastric tube, QAM doxycycline, 100 mg, intravenous, Q12H felbamate, 1,200 mg, gastric tube, BID felbamate, 1,500 mg, gastric tube, Daily before breakfast fentaNYL, , , lamoTRIgine, 350 mg, gastric tube, QAM And lamoTRIgine, 350 mg, gastric tube, Every afternoon And lamoTRIgine, 300 mg, gastric tube, Daily at bedtime levETIRAcetam, 1,500 mg, gastric tube, QAM levETIRAcetam, 1,600 mg, gastric tube, Daily at bedtime lidocaine, 0-10 mL, intradermal, Once oxyBUTYnin, 5 mg, gastric tube, TID polyethylene glycol, 17 g, gastric tube, Daily rufinamide, 200 mg, gastric tube, QAM rufinamide, 400 mg, gastric tube, Daily at bedtime sennosides-docusate sodium, 1 tablet, gastric tube, BID sodium chloride, 10-30 mL, intravenous, Once Continuous Infusions:norepinephrine 16 mcg/mL in D5W 250 mL infusion, 0-0.3 mcg/kg/min (Dosing Weight), Last Rate: 0.05 mcg/kg/min (03/02/24 0832) propofol 10 mg/mL infusion (Diprivan), 5-80 mcg/kg/min (Dosing Weight), Last Rate: Stopped (03/02/24 0537) Pertinent Labs: Last 3 results Lab Units 03/02/24 0346 03/01/249 03/01/24 0433 02/29/24 0448 02/29/24 0448 02/28/24 1529 SODIUM P mmol/L -- 134* -- -- -- 131* SODIUM mmol/L 135 -- 135 < > 132* -- POTASSIUM mmol/L 4.1 -- 4.7 -- 4.9 -- POTASSIUM P mmol/L -- 4.5 -- -- -- 4.2 CHLORIDE P mmol/L -- 98 -- -- -- 94* CHLORIDE mmol/L 100 -- 99 < > 98 -- BUN P mg/dL -- 7* -- -- -- 8 BUN mg/dL 12 -- 4* < > 6* -- CREATININE mg/dL 0.60* 0.54* 0.39* < > 0.40* 0.32* MAGNESIUM mg/dL -- 1.8 -- -- -- -- < > = values in this interval not displayed. GI Function: Last BM Date: 03/02/24, [place] Stool Chart: Type 7: Watery, no solid pieces, Passing Flatus: Yes. Received tap water enema at 0000 on 03/02. 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 Imaging of abdomen on 03/01 showed Gas is visualized to the level of the distal descending colon, suggestive of a nonobstructive pattern. Estimated Needs: Calories: 1300-1412 calories/day Method to Estimate Energy Needs: kcal/kg (22-25 kcal/kg) Weight Used for Equation Calculations: 66.9 kg Protein: 80 - 100 grams/day Method to Estimate Protein Needs (g/kg): 1.2 - 1.5 gm/kg Weight Used to Calculate Protein Needs (Kg): 66.9 kg PLAN No changes at this time; continue current nutrition orders. Continue to advance tube feeds per orders to goal rate of 55 mL/hr. Clinical Nutrition will continue to follow. For questions about patient's nutritional care please contact pager [phone] on weekdays 07:30-16:00 or [phone] on weekends/holidays ([facility]). * Wes Person M.B.B.SMay - 03/02/2024 6:33 AM CDT SUBJECTIVE This is a supervisory note for the ICU team. I have personally seen and examined the patient, and reviewed all pertinent laboratory, vital signs and imaging data. I have reviewed the history, physical examination, impression, report, and plan with the team in detail and agree with the documentationoutlined in their notes from today. Last night, due to concern for secretion clearance, he was intubated and placed on mechanical ventilation. Since that time, gas exchange has been reasonable. Bronchoscopy was performed and showed blood-tinged purulent secretions. OBJECTIVE BP 107/64 Pulse 69 Temp (!) 35.9 ??C (Axillary) Resp 14 Ht 156 cm Wt 68.6 kg SpO2 100% BMI 28.19 kg/m?? 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 male who is admitted to the ICU with acute respiratory failure secondary to aspiration pneumonia. His presentation was complicated by DVT. Specific plan as outlined below. PLAN BY SYSTEMS: 1. 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 At this point, we held off on re drawing levels given we would be unlikely to act on them in the inpatient setting. Given overall responsiveness is substantially lower than his baseline, we will pursue head CT and consult our Nephrology ICU colleagues for whether any further testing is needed (EEG, anticonvulsant drug levels). 2. Cardiovascular: He is on norepinephrine currently, with a MAP target of 60-65 mmHg. Given persistent pressor need we are proceeding to PICC line placement. 3. Respiratory: Underwent bronchoscopy yesterday. Cultures pending. The BAL was neutrophil predominant. SBT today may transition to ASV. 4. Renal: Diuresis as needed for an even to slightly negative fluid balance. 5. GI: Home tube feeds. PPI. 6. Hematology: Apixaban 5 mg b.i.d. for DVT. 7. ID: Antibiotics were broadened from ceftriaxone to cefepime yesterday. We will follow growth from BAL. Doxycycline can finish after five days (end 03/03). For beta-lactam, we can plan for a total of seven days antibiotics unless there is specific growth from BAL (03/05). The longer duration for beta lactam is primarily in the context of probable recurrent aspiration events leading up to intubation. 8. Lines/Devices: He has an arterial line for close blood pressure monitoring. We will get a PICC line today. 9. PT/Rehab: Currently unable to participate. 10: Goals of care / disposition: Remains in ICU. Remainder of issues per the systems-based plan of care as outlined in the ICU notes from today. Critical care time 60 minutes. This is time spent at this critically ill patient's bedside activelyinvolved in patient care as well as the coordination of care and discussions as appropriate. This does not include any procedural time which has been billed separately. * Gardenia Gordillo APRN, C.N.P., M.S.N. - 03/02/2024 5:59 AM CDT SUBJECTIVE Brief Summary: Mr. Hilario is a 44-year-old male patient with medical comorbidities consisting of Ayaan-Gastaut syndrome, developmental delay, ALL treated with chemoradiation, chronic oxygen use (1 L nasal cannula nocturnally), and history of a lateral medullary stroke who was admitted to the medical intensive care unit for hypoxic and hypercapnic respiratory failure in the setting of community-acquired pneumonia. Interval Events: Night 03/01: - Hypotensive > Back on NE - VBG: pH 7.30/CO2 60 - Intubated at 2230 - Bronchoscopy with BAL sent - thick, blood-tinged secretions throughout all airways - Antibiotics broadened to Cefepime - Blood cultures sent - Propofol and NE - 500 mL 5% albumin - AXR: distention > enema given Day 03/02: - Sedation vacation - Continue Cefepime - Wean Norepinephrine - No further oozing from calista tube OBJECTIVE VITAL SIGNS I have reviewed the current vital sign data as applicable. PHYSICAL EXAM General: Elderly appearing male, resting comfortably, no acute distress, mechanically ventilated HEENT: Pupils equally reactive 5 mm, dry mucous membranes, unable to assess hearing or vision Neuro: drowsy, does not follow commands, mechanically ventilated, does not move extremities Cardiac: RRR, S1 and S2 present, no rub/murmur/gallop Respiratory: Bilateral breath sounds clear with diminished bases, symmetrical chest expansion, easy, unlabored, no accessory muscle use, mechanically ventilated Abdomen: Soft, nontender, nondistended, active bowel sounds throughout, PEG in LUQ with blood-tinged drainage without active oozing Skin: Warm, clean, dry, intact, no visible open wounds, no rashes Extremities: Warm, moves all extremities, peripheral edema of bilateral hands and bilateral lower extremities, pulses 2+ Psych: Unable to assess DIAGNOSTICS I have reviewed relevant laboratory, imaging, and other diagnostics as applicable. ASSESSMENT / PLAN #1 Leukemia Lymphocytic Acute Remission (HCC) #2 Pneumonia #3 Brain Stem Stroke Syndrome #4 Apnea Sleep Obstructive #5 Acute Respiratory Failure With Hypoxia (HCC) #6 Acute Embolism And Thrombosis Of Left Femoral Vein ([facility]) Mr. Hilario was resting comfortably. Due to increasing respiratory failure with hypercapnia, he wasintubated and subsequently bronched overnight with BAL cultures sent. Antibiotics were broadened toCefepime from Ceftriaxone as well. He will complete a 5 day course of Doxycycline today (03/02) but will continue with Cefepime for now. His blood cultures from outside hospital were positive in 1/2 bottles for GPC which warranted a one time dose of Vancomycin while awaiting speciation. We will [facility] for an update on these cultures and continue to follow in house blood cultures from 03/01. A sedation vacation and potential breathing trial will be attempted today. GI was curbsided on 03/01 due to continued oozing from the calista tube site; however, oozing has since subsided this morning. We will hold off on further interventions at this time unless oozing resumes. His overallmentation continues to be less than his baseline without clear cause. At this time, it would not beunreasonable to pursue a head CT and consult Neurology to determine if Mr. Hilario were having subclinical seizures. He will remain in the ICU. Remainder of cares as outlined below. 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 # Sedation # Query Subclinical Seizure Activity - Monitor neuro status - Seizure precautions - Sedation: Propofol, wean for sedation vacation - Daily SAT/SBT - Continue home medications: Baclofen, Cannabidiol , Clobazam, Felbamate, Lamotrigine, Levetiracetam, and Rufinamide - Pain regimen: Acetaminophen 1 g Q6H PRN - Consider head CT and consult to Neurology CARDIAC/CV # Hypotension - Maintain MAP > 65 - Arterial line - Continue Norepinephrine to maintain MAP goal - Fluid status: net negative 482 cc since admission PULMONARY # Chronic Nocturnal Supplemental Oxygen (1 L nasal cannula) # Community Acquired Pneumonia # Acute on Chronic Respiratory Failure with Hypoxemia # Mechanical Intubation # Status Post Bronchoscopy 03/01/24 - Maintain SpO2 > 92% - Continue mechanical ventilation - Daily SBT - Pulmonary hygiene: DuoNeb QID PRN, chlorhexidine mouthwash BID, frequent oral care - Bronch with BAL sent 03/01/24 - AB.47/36/127/26 RENAL/ # No acute issues - Urine output 90 cc since 0000 - Goal net fluid balance: even - Renal function: creatinine 0.60, BUN 12 - Gama catheter - Strict I&O and daily weight - Monitor renal function and electrolytes daily - Avoid nephrotoxins and renally adjust medications as able GI # Calista Tube Status # Oozing/Bleeding from Calista Tube Site - Diet: NPO + TF - Antiemetics: None - Bowel regimen: Bisacodyl suppository 10 mg daily PRN, Miralax 17 g daily, and Senokot-S 1 tablet BID - GI PPX: Not indicated ID # Community Acquired Pneumonia # Leukocytosis, resolved - Blood cultures 02/27 OSH: 1/2 bottles + GPC - Blood culture 03/01: NGTD - Sputum cultures 02/28: 2+ Yeast - BAL 03/01: pending - Antibiotics: - Cefepime (03/01 - current) - Vancomycin (03/01) - Doxycycline (02/27 - EOT 03/02) - Ceftriaxone (02/27 - 03/01) HEME/ONC # Anemia # Left Lower Extremity DVT # Oozing/Bleeding from Calista Tube Site - Hgb 8.9 - No signs of active/acute bleeding - Monitor CBC daily - DVT PPX: Apixaban 5 mg BID - Loading dosing stopped 03/01 due to oozing ENDOCRINE # Hypoglycemia secondary to lack of Tube Feeding - Monitor blood glucose 4 times daily - Notify provider for blood glucose > 140 or <70 - Hypoglycemia protocol ordered RHEUM/MUSK # No active issues Prophylaxis: No GI PPX indicated; Apixaban for DVT PT/OT/ST: As indicated by therapy services Code Status: Full Code Disposition: ICU Family: Mother, Shelby Varner Lan Gordillo, AKASH Stahl * Gregorio Comer R.R.T., L.R.T. - 03/01/2024 10:57 PM CDT Arterial line placed in the right radial artery * Gregorio Comer R.R.T., L.R.T. - 03/01/2024 10:30 PM CDT Patient intubated for airway protection and secretion burden. 7.5 ETT secured at 22 cm at teeth. Bronchoscopy performed post intubation, BAL. * Gregorio Comer R.R.T., L.R.T. - 03/01/2024 7:11 PM CDT Patient NT suctioned for thick bloody secretions through Nasal-Pharyngeal airway in the right nare.CCS Team 2 notified of bloody secretions * Gunjan Pickering Pharm.D., R.Ph., [facility] - 03/01/2024 11:38 AM CDT Pharmacist Progress Note Reason for admission: 44 year old male admitted to [facility] Medical ICU on 02/28/2024 for acute hypoxemicrespiratory secondary to community acquired pneumonia. 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 Family will provide guidance on when to use rescue benzodiazepines vs [id number] of Keppra if needed. Cardiovascular: HD stable, pressers weaned OFF, sinus Respiratory: Aerosol mask 5 L, Neph: Scr at approximate BL ~0.4, likely overestimates function given low muscle mass ID: uptrending leukocytosis afebrile Does have documented AGEP/SJS to Augmentin, however has tolerated ceftriaxone Ceftriaxone/doxycycline for CAP OSH blood cultures reportedly 1/2 (+) GPC Endo/GI: goal BG <180 and not hypoglycemic, Tube feeds to be restarted, prn BR Heme: acute LLE DVT, apixaban initiated Prophylaxis: Apixaban, SUP not strictly indicated ASSESSMENT / PLAN Acute hypoxic respiratory failure secondary to pneumonia: There has been some improvement in oxygenrequirements, however patient not quite at baseline mentation. Plan to continue 5-day course of ceftriaxone and doxycycline. Acute LLE DVT: Apixaban started yesterday. Has had some oozing around G-tube site as well as some mucosal oozing in mouth/nose. Hemoglobin largely stable, will continue to monitor. OSH blood cultures reportedly 1/2 (+) GPC: Giving a one time dose of vancomycin this afternoon and following up on speciation. Culture could represent contaminant. Gunjan Pickering Pharm.D., R.Ph., [facility] [phone] * Malini Lamb L.G.S.Riya., M.S.W. - 03/01/2024 10:29 AM CDT SUBJECTIVE Social Work met with the patient's parents to inform that all in home services have been reconnected. We discussed that the patient is on a CAC waiver and has not been getting the full benefits due to the difficulty in find RN's that provide in home cares. The patient's mother requested assistance in finding in home half-way services to help fill the gap. Social Work will check into available resources for patient and family. OBJECTIVE Say Hilario is a 44 year old male who resides at home with his parents. The patient is in need of full cares. His mother, Shelby, informed that when Say is feeling better, his baseline abilities are that of an 18 month old. The patient's parents are his full-time caregivers. The patient is on a CAC waiver through [facility], his parent's/guardians gave this manager social work permission to contact [facility] to inquire about available services under the CAC waiver. Social Work called and left a message with the [facility] worker. [facility] Their services have been reconnected as has [facility] for patients oxygen needs and services through [facility] for patients TPN nutrition needs. ASSESSMENT / PLAN ASSESSMENT The patient was not assessed as he is intubated and ventilated. Social Work met with the patient's parents who are primary caregivers for the patient. They are very knowledgeable regarding the patients medical condition and care needs. They are planning appropriately for post hospitalization care needs. PLAN - The patient will return to his parents home in [place], [place] at time of discharge. - The patient's family will provide transportation at time of discharge. - Social Work will continue to follow for supportive visits and discharge planning needs. 1.) Patient will return home with their previous nutrition services. Dialysis/Infusion - Admitted Since 02/28/2024 Service Provider Selected Services Address Phone Fax Patient Preferred [facility] Justin Saha, [facility] [phone] -- Contact: Tc They will continue to provide the nutrition and supplies for this patient. What infusion is being provided (ie: antibiotics, nutrition, etc): TPN Nutrition Peptamen 3 cartons/day (250 mL/carton. 90 cartons per month). Prosource unflavored 3 packs/day (90 per month). Pump rate: Peptamen 85 mL/hour x9 hours. Prosource 85 mL/hour x9 hour. If HPN is following, they will send updates to provider if there is a change in the nutrition recommendations. NURSING: - Notify nutrition provider when patient dismisses. - Send updated nutrition prescription and recommendations in After Visit Summary to provider. - Complete documentation in the Discharge Navigator including Nursing Report Info and Facility/NextLevel of Care Info PRIMARY SERVICE: -If HPN not following: -Provide updated prescriptions and recommendations in the After Visit Summary if there is a change in the nutrition recommendations. SOCIAL WORK: -Will continue to follow and assist if needs arise. 2.) Patient to discharge with home health care. Home Medical Care - Admitted Since 02/28/2024 Service Provider Selected Services Address Phone Fax Patient Preferred [facility] [address] [place], [facility] [phone] -- Contact: Jesica What Care are they providing for the patient: Half-Way visit 7 days a week for 1 hour. How do we reach your agency on a weekend/holiday? [phone] NURSING: - Complete documentation in the Discharge Navigator including Nursing Report Info and Facility/NextLevel of Care Info - Call report and arrange for the patient???s first visit. - Send required packet of dismissal information with patient, including After Visit Summary and advance directive. PRIMARY SERVICE: - Please provide a non-[place] home health order for resumption of previous services [...] coverage for the services noted above. The mother Shelby appear(s) to have an understanding of this. -Will continue to follow and assist if needs arise. 3.) Oxygen Reconnect: Durable Medical Equipment - Admitted Since 02/28/2024 Service Provider Selected Services Address Phone Fax Patient Preferred [facility] Durable Medical Equipment [address] [place] [phone] -- Contact: Imelda Respiratory Equipment : Concentrator Oxygen provider reports patient???s current orders are for 2 liters continuous. NURSING: - Arrange transportation oxygen tank if needed. - If new oxygen requirements are needed, assist primary service with new prescription and fax to provider. PRIMARY SERVICE: - Complete and sign new oxygen prescription if needed. SOCIAL WORK: -Reviewed patient's insurance coverage for the services noted above. The mother Shelby Hilario appear(s) to have an understanding of this. -Will continue to follow and assist if needs arise. Emma Kim, M.S.W. 03/01/24 * Wes Person M.B.B.S. - 03/01/2024 6:58 AM CDT SUBJECTIVE This is a supervisory note for the ICU team. I have personally seen and examined the patient, and reviewed all pertinent laboratory, vital signs and imaging data. I have reviewed the history, physical examination, impression, report, and plan with the team in detail and agree with the documentationoutlined in their notes from today. Overnight, he remained on low-dose norepinephrine. No other major issues. Overall activity level remains below home baseline. OBJECTIVE BP (!) 110/53 Pulse 91 Temp 37.1 ??C (Axillary) Resp 13 Ht 156 cm Wt 66.9 kg SpO2 94% BMI 27.49 kg/m?? ASSESSMENT / PLAN #1 Acute hypoxemic respiratory failure secondary to aspiration/community- acquired pneumonia #2 Dysphagia, on long-term tube feeds via a gastrojejunal tube (placed 2019, previously G-tube; last replaced 12/28) #3 Acute DVT #4 Ayaan-Gastaut syndrome with recurrent seizures #5 Severe cognitive delay #6 Probable sleep disordered breathing; further evaluation deferred for now given complexities withany PAP implementation #7 History of ALL, status post treatment with chemoradiation at 20 months #8 History of recurrent aspiration pneumonias #9 History of prior urinary infections secondary to nephrolithiasis, 2022 #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 male who is admitted to the ICU with acute hypoxemic respiratory failure secondary to community- acquired versus aspiration pneumonia. His presentation was complicated by DVT. Overnight, his respiratory status remained stable and he was on low-dose norepinephrine for blood pressures. SUMMARY PLAN: 1. In view of the extensive radiographic infiltrates and borderline-low blood pressures I think we will plan on completing five days of antibiotics for CAP (previously planned a short 3-day course). 2. MAP target 55 mmHg. 3. Enteric feeds. 4. Benzodiazepines for generalized tonic-clonic seizure that lasts for a protracted period. Of note, he does have multiple seizures daily at baseline. 5. Apixaban for deep venous thrombosis. This is 10 mg b.i.d. for a week, followed by 5 mg b.i.d. for three months. Since this is his first event I would favor short-term anticoagulation only. 6. He should remain in the ICU. Remaining issues per the systems-based plan outlined in the ICU notes from today. * Gardenia Gordillo APRN, C.N.P., M.S.N. - 03/01/2024 5:51 AM CDT SUBJECTIVE Brief Summary: Mr. Hilario is a 44-year-old male patient with medical comorbidities consisting of [place]-Gastaut syndrome, developmental delay, ALL treated with chemoradiation, chronic oxygen use (1 L nasal cannula nocturnally), and history of a lateral medullary stroke who was admitted to the medical intensive care unit for hypoxic and hypercapnic respiratory failure in the setting of community-acquired pneumonia. Interval Events: Night 02/28: - Remains on low dose NE Day 03/01: - Remains on low dose Norepinephrine - Increase pulmonary hygiene regimen with ongoing lethargy - Continue Doxycycline and Ceftriaxone for 3 days - Follow up blood cultures with [facility] OBJECTIVE VITAL SIGNS I have reviewed the current vital sign data as applicable. PHYSICAL EXAM General: Elderly appearing male, resting comfortably, no acute distress HEENT: Pupils equally reactive 3 mm, dry mucous membranes, hearing intact, vision intact Neuro: Lethargic, does not follow commands, intermittent movement of all extremities Cardiac: RRR, S1 and S2 present, no rub/murmur/gallop Respiratory: Bilateral breath sounds coarse and rhonchus, symmetrical chest expansion, easy, unlabored, no accessory muscle use, aerosolizing mask present Abdomen: Soft, nontender, nondistended, active bowel sounds throughout, PEG in LUQ with blood-tinged drainage Skin: Warm, clean, dry, intact, no visible open wounds, no rashes Extremities: Warm, moves all extremities, peripheral edema of bilateral hands and bilateral lower extremities, pulses 2+ Psych: Unable to assess DIAGNOSTICS I have reviewed relevant laboratory, imaging, and other diagnostics as applicable. ASSESSMENT / PLAN #1 Leukemia Lymphocytic Acute Remission (HCC) #2 Pneumonia #3 Brain Stem Stroke Syndrome #4 Apnea Sleep Obstructive #5 Acute Respiratory Failure With Hypoxia (HCC) #6 Acute Embolism And Thrombosis Of Left Femoral Vein ([facility]) Mr. Hilario was resting comfortably this morning with his mother at bedside. He remains lethargic which is abnormal for his baseline per his mother. His white blood cell count has increased to 12.4 today in the setting of known community acquired pneumonia with thick secretions. There continues to remain high concern for mucous plugging. He remains in a mild shock state with the ongoing need for low-dose norepinephrine. We will continue to aim for a MAP of 55. Remainder of cares as outlined below. 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 - Monitor neuro status - Seizure precautions - Continue home medications: Baclofen, Cannabidiol , Clobazam, Felbamate, Lamotrigine, Levetiracetam, and Rufinamide - Pain regimen: Acetaminophen 1 g Q6H PRN CARDIAC/CV # Hypotension - Maintain MAP > 55 - Continue Norepinephrine to maintain MAP goal - Fluid status: net negative 1.9 L since admission PULMONARY # Chronic Nocturnal Supplemental Oxygen (1 L nasal cannula) # Community Acquired Pneumonia # Acute on Chronic Respiratory Failure with Hypoxemia - Maintain SpO2 > 92% - Use supplemental oxygen as needed to maintain SpO2 goal - Pulmonary hygiene: NT suctioning, DuoNeb QID PRN - Monitor for signs of mucous plugging RENAL/ # No acute issues - Urine output 150 cc since 0000 - Goal net fluid balance: even - Renal function: creatinine 0.39, BUN 4 - Gama catheter - Strict I&O and daily weight - Monitor renal function and electrolytes daily - Avoid nephrotoxins and renally adjust medications as able GI # PEG Status - Diet: NPO + TF - Antiemetics: None - Bowel regimen: Bisacodyl suppository 10 mg daily PRN - GI PPX: Not indicated ID # Community Acquired Pneumonia # Leukocytosis - Blood cultures 02/27 OSH: will call for update - Sputum cultures 02/28: NGTD - Antibiotics: - Doxycycline (02/27 - current) - Ceftriaxone (02/27 - current) HEME/ONC # Anemia # Left Lower Extremity DVT - Hgb 10.8 - No signs of active/acute bleeding - Monitor CBC daily - DVT PPX: Apixaban 10 mg x7 days followed by 5 mg BID ENDOCRINE # Hypoglycemia secondary to lack of Tube Feeding - Monitor blood glucose 4 times daily - Notify provider for blood glucose > 140 or <70 - Hypoglycemia protocol ordered RHEUM/MUSK # No active issues Prophylaxis: No GI PPX indicated; Apixaban for DVT PT/OT/ST: As indicated by therapy services Code Status: Full Code Disposition: ICU Family: Mother, Shelby Tracey Ly.S.Violet, C.N.P, AKASH * Erasmo Lloyd APRN, C.N.PMay, D.N.P. - 02/29/2024 11:24 AM CDT SUBJECTIVE Brief Summary: 44 year old male patient with history of CVA and seizure disorder, admitted to the MICU for acute hypoxemic respiratory failure due to CAP vs possible aspiration. Interval Events: Day shift 02/29/2024 - Continue to wean oxygen as tolerated - Continue Ceftriaxone and Doxycycline for now - Sent respiratory panel - Positive DVT US- started on Eliquis Night: -No acute events overnight -Weaning norepi OBJECTIVE VITAL SIGNS Height: 156 cm, Weight: 69.4 kg, BMI (Calculated): 28.5 kg/m??, Blood Pressure: 94/55, Heart Rate: 94, Pulse Rate: 95, Resp Rate: 14, Temperature: 36.7 ??C, SpO2: 95 % PHYSICAL EXAM Vitals reviewed. Cardiovascular Rate and Rhythm: Normal rate. Pulmonary Effort: No respiratory distress. Breath sounds: Rales present. No wheezing. Abdominal General: There is no distension. Musculoskeletal Right lower leg: Edema present. Left lower leg: Edema present. Neurological Mental Status: He is alert. Motor: Weakness present. DIAGNOSTICS I have reviewed relevant laboratory, imaging, and other diagnostics as applicable. 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 Will continue to work on weaning O2. Will continue Ceftriaxone and Doxy for now for suspected CAP vs aspiration Pneumonia. We also found out that he has a left lower extremity DVT which we will treat with Eliquis. Patient will remain in the ICU for today. Plan by Systems: Neuro: # [place]-Gastaut syndrome # Developmental delay (non verbal at baseline) # Recurrent seizures # History of remote lateral medullary stroke Plan Pain management: Tylenol, and Baclofen as needed. Holding [place] at this time. Home Medications to be continued include: Keppra, Lamictal, Cannabidiol, Clobazam, Felbamate, Seizure Rescue: Consider IV Ativan 2 mg for seizures lasting longer than 2 minutes Pulm: # Acute hypoxic respiratory failure # Pneumonia (likely community-acquired) Oxygenation goal > 92 ; currently on aerosol mask at 5 liters/minute, 28% FiO2 Chest x-ray from outside facility reveals right-sided mid/lower lung opacity Neb regimen per RT Protocol Plan Continue ceftriaxone and doxycycline for total of 3 days Sent respiratory panel this AM. Cardio: # Shock Currently requiring low-dose norepinephrine for hypotension. MAP goal 60-65 EKG: Normal sinus rhythm with a QTC of 4 4 with nonspecific T-waves abnormalities. Fluid boluses prior to arrival to the MICU: 3 L Lactate 1.6 Plan Pressors: Norepinephrine Holding home medications to include torsemide in the setting of hypotension GI: Diet: Busperson Consult entered to consider restarting feeds Endo: Glucose POC 4 times a day Glucose today was 72 Renal: # Mild hyponatremia (observe for now) Net negative 2L Monitor and replace electrolytes as needed Strict I/Os Heme: Goal Hgb > 7.0. Today's hemoglobin is 10.7, Platelets 128, Leukocytes 5.8 Transfuse as indicated Start Eliquis for DVT 10mg bid for 7 days followed by 5mg bid for at least 3 months of therapy. ID: Cultures obtained at outside facility. I communicated with [facility] today 02/29/2024, they state that both blood cultures and urine culture preliminary results showed no growth to date Procalcitonin 0.05 C reactive- 1.5 Antimicrobials received prior to ICU: Imipenem Plan Antimicrobial: Ceftriaxone & Doxycycline for a total of 3 days Access: -PIVs -Art line : N/A -CVC N/A Other: -Code Status: Full -Dispo: ICU Level of Care -Social: Family updated : yes * Gunjan Pickering, Pharm.D., R.Ph., [facility] - 02/29/2024 11:04 AM CDT Pharmacist Progress Note Reason for admission: 44 year old male admitted to [facility] Medical ICU on 02/28/2024 for acute hypoxemicrespiratory secondary to community acquired pneumonia. 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 Family will provide guidance on when to use rescue benzodiazepines vs extra 200mg of Keppra if needed. Cardiovascular: hemodynamics supported by low-dose NE, sinus tachycardia Respiratory: Aerosol mask 5 L weaned from initial 10L Neph: Scr at approximate BL ~0.4, likely overestimates function given low muscle mass ID: WBC 5.8 from 2.3, afebrile Does have documented AGEP/SJS to Augmentin, however has tolerated ceftriaxone Ceftriaxone/doxycycline for CAP Endo/GI: goal BG <180 and not hypoglycemic, Tube feeds to be restarted, prn BR Heme: acute LLE DVT, apixaban initiated Prophylaxis: Apixaban, SUP not strictly indicated ASSESSMENT / PLAN Acute hypoxic respiratory failure secondary to pneumonia: There has been some improvement in oxygenrequirements, however patient remains more somnolent than baseline mentation. Plan to continue 5-day course of ceftriaxone and doxycycline. Acute LLE DVT: No evidence of pulmonary emboli on CT today. Plan to initiate apixaban today. Gunjan Pickering Pharm.D., R.Ph., [facility] [phone] * David Arreaga R.N., C.W.C.N. - 02/29/2024 10:[address] [facility] Wound RN consulted to assess Say Hilario skin alterations. Wound assessment, pain, andBraden score noted in the flowsheet. The patient consented to photography of the affected area for clinical trending purposes. Images were taken and are available in QREADS. History: Per provider note, the patient was admitted to the hospital for acute hypoxemic respiratory failure secondary to community-acquired versus aspiration pneumonia. The patient's significant history includes cerebrovascular disease, [place] Gastaut Syndrome, chronic dysphagia with PEJ placement, and intellectual disability. Assessment: The patient was assessed while in bed and with the patient's mother at the bedside. 02/29/24 0815 Pain Assessment Respiratory Depth/Rhythm Regular Respiratory Pattern Regular Wound 02/28/24 Friction Injury Buttocks Date First Assessed/Time First Assessed: 02/28/24 1600 Present on Original Admission: Yes Wound Approximate Age at First Assessment: 1 month Primary Wound Type: Friction Injury Location: Buttocks *Shape Irregular *Tunneling none *Signs of Infection None Unable to Measure Y *Wound Bed Open;Red;Partial thickness Odor None *Exudate Amount Scant Drainage Description Serosanguineous Ana-wound Assessment Dry;Fragile Treatments Cleansed Periwound Treatment Cleansed (Comment) Wound Cleansed with Wound cleanser *Primary Dressing Liquid skin protectant (Cavilon Advanced) *Primary Dressing Frequency of Change 3x/week & PRN Primary Dressing Changed New Changed by Unit based nurse Ongoing management Nursing;Wound/movie operator Wound 03/12/23 Other Moisture Associated Skin Damage Abdomen Left;Lower GJ-Tube Date First Assessed/Time First Assessed: 03/12/23 0900 Present on Original Admission: Yes Wound Approximate Age at First Assessment: Unknown Primary Wound Type: Other Moisture Associated Skin Damage Location: Abdomen Wound Location Orientation: ... *Shape Irregular *Tunneling none *Signs of Infection None Unable to Measure Y *Wound Bed Open;Red Odor None *Exudate Amount Small Drainage Description Serosanguineous Ana-wound Assessment Erythema;Denuded Treatments Cleansed Periwound Treatment Cleansed (Comment) Wound Cleansed with Wound cleanser *Primary Dressing Foam (Mepilex Ag) *Primary Dressing Frequency of Change Daily & PRN Primary Dressing Changed New Primary Dressing Status Intact Changed by Wound undercover agent Ongoing management Nursing;Wound/movie operator Head to toe skin assessment completed and no other concerns DRESSING RECOMMENDATIONS: #1 Friction Injury Buttocks -Cleanse with Vashe wound cleanser. Pat dry. -Apply Cavilon Advanced Skin Protectant to the area. -Hold the skin apart and allow to dry at least 60 seconds, or longer, until it is no longer tacky to the touch. -Cavilon must be completely dry before applying a dressing. -Reapply Wednesday, , and Wednesday. -DO NOT apply creams, ointments, or barrier products over the Cavilon. #2 Moisture Associated Skin Damage Abdomen Left;Lower GJ-Tube -Cleanse the area with Vashe wound cleanser. Pat dry. -Apply a Mepilex Ag foam. Lift dressing daily to assess skin and perform wound cares. -Change once daily and PRN. Recommended interventions for pressure redistribution and shear reduction: Offload heels on pillows at all times when in bed. Full 30 degree turns side to side every 2 hours with supine positioning only for meals. Apply and utilize the LEAF monitoring system. Reposition at least every hour while in the chair. Reposition medical devices per policy. Assess and pad the skin under and surrounding the medical devices with a prophylactic foam dressing. Keep the HOB below 30 degrees except for meals unless medically contraindicated. Apply a prophylactic sacral Mepilex?? border dressing to cover the coccyx/sacral area. Ensure the dressing is in full contact with the skin to prevent moisture- related skin breakdown. Lift twice daily to assess when used for prevention. Change every 3 days and PRN. Apply prophylactic Mepilex?? heel borders. Lift twice daily to assess the skin when used for prevention. Change every 3 days and PRN. Recommended interventions for moisture control: InterDry?? Ag placed between folds. Allow at least 2 inches of fabric exposed to air on at least one side of the skin fold for moisture evaporation. Can be used up to 5 days unless soiled with stool or urine. Do not rinse with water. Cleanse with foaming cleanser or wipes after each incontinence episode and for routine hygiene cares. Consult recommendations: NA Education: Discussed the plan of care with the patient and nursing. They agree to the plan. The WOC RN will continue to see the patient, contact or reconsult for worsening wounds or new wounds. * Gunjan Pickering, PharmMayD., R.Ph., [facility] - 02/29/2024 9:26 AM CDT Images from the original note were not included. Admission Medication History Note Adherence issues: No concerns Medication list source: Family member, Outside facility MAR, and Pharmacy or dispense records Prior to Admission Medications Med List Status: Pharmacy Complete Set By: Gunjan Pickering, Pharm.D., R.Ph., [facility] at 02/29/2024 9:26 AM Taking? Last Dose Informant Start Date End Date LT acetaminophen (TYLENOL) 650 mg/20.3 mL solution -- -- -- -- Administer 650 mg via gastric tube every 6 (six) hours as needed for pain, fever or mild pain or score 1-3 of 10. acetic acid 0.25 % irrigation (sterile) -- -- 03/13/23 -- Irrigate with as directed 2 (two) times a day. For groin to perirectal/perineal area. albuterol (ACCUNEB) 2.5 mg /3 mL nebulizer solution () -- -- 09/21/19 02/23/23 Inhale 2.5 mg every 6 (six) hours as needed for wheezing. azelastine (ASTEPRO) 205.5 mcg/spray (0.15 %) nasal spray -- -- 02/26/23 -- Administer 1 spray into each nostril daily. bacitracin 500 unit/gram ointment -- -- -- -- Apply 1 Application topically as needed (redness, inflammation on skin). baclofen (LIORESAL) 20 mg tablet -- -- 01/27/21 -- TAKE 1 TABLET (20MG) PER G-TUBE FOUR TIMES A DAY. DO NOT EXCEED 80MG PER DAY. benzoyl peroxide (BREVOXYL) 4 % external liquid -- -- -- -- Apply 1 Application topically. bisacodyL (DULCOLAX) 10 mg suppository -- -- 12/22/22 -- Insert 10 mg into the rectum daily as needed for constipation (if no results from AM miralax). cannabidioL (EPIDIOLEX) 100 mg/mL solution -- -- -- -- Administer 400-600 mg via gastric tube 2 (two) times a day. 400 mg AM, 600 mg PM clindamycin (CLEOCIN T) 1 % external solution -- -- 08/11/21 -- Apply 1 Application topically. cloBAZam (ONFI) 10 mg tablet -- -- 05/06/20 -- 15 mg by g-tube route every morning. cloBAZam (ONFI) 10 mg tablet -- -- -- -- Take 10 mg by mouth at bedtime. clotrimazole (FUNGI CURE) 1 % external solution -- -- 02/26/23 -- Apply 1 Application topically daily as needed (rash on head). clotrimazole-betamethasone (LOTRISONE) 1-0.05 % cream -- -- -- -- Apply 1 Application topically 2 (two) times a day as needed (rash or concerns for yeast infection).Apply to affected areas. DIASTAT ACUDIAL 12.5-15-17.5-20 mg rectal kit -- -- 11/26/17 -- Insert 20 mg into [...] times a day as needed (seizures). Notes: Jj--[place] ddydpnhfbgspcyr-ebzrktxzo-hnpfhyy (MAGIC MOUTHWASH) 1:1:1 -- -- -- -- Swish and spit 15 mL every 4 (four) hours as needed. esomeprazole (NexIUM) [address] capsule -- -- -- -- Take 20 mg by mouth every morning before breakfast. felbamate (FELBATOL) 600 mg/5 mL suspension -- -- -- -- Take 1,500 mg by mouth every morning before breakfast. felbamate (FELBATOL) 600 mg/5 mL suspension -- -- -- -- Take 1,200 mg by mouth 2 (two) times a day. At 1400 and 2100 gabapentin (NEURONTIN) 300 mg capsule -- -- 07/28/21 -- Take 300 mg by mouth 3 (three) times a day as needed (pain). haloperidol (HALDOL) 2 mg/mL concentrated solution -- -- 07/18/20 -- Take 1 mg by mouth 4 (four) times a day as needed for agitation. HYDROcodone-acetaminophen (NORCO) 10-325 mg per tablet -- -- 12/30/23 -- Take 0.5 tablets by mouth every 6 (six) hours as needed for severe pain or score 7-10 of 10 Indication: Chronic Pain/Nonacute Pain. hydrocortisone (HYTONE) 2.5 % cream -- -- 02/26/23 -- Apply 1 Application topically daily as needed (itching). ibuprofen (ADVIL,MOTRIN) 600 mg tablet -- -- -- -- 600 mg by g-tube route every 8 (eight) hours as needed for pain. ipratropium-albuteroL (DUONEB) 0.5-2.5 mg/3 mL nebulizer solution -- -- 06/26/22 -- Inhale 3 mL by nebulization 4 (four) times a day as needed for shortness of breath. ketoconazole (NIZORAL) 2 % cream -- -- 07/08/21 -- Apply 1 Application topically 2 (two) times a day as needed for irritation or rash. LaMICtaL 100 mg tablet -- Self 01/27/21 -- Take 100 mg by mouth 3 (three) times a day. 350 mg morning, 350 mg at 2pm, 300 mg at bedtime. (has both 100 mg & 200 mg for the total of 350mg and 300 mg doses) lamoTRIgine (LaMICtaL) 200 mg tablet -- -- 12/30/23 12/29/24 Administer 1 tablet (200 mg total) via gastric tube 3 (three) times a day. 350 mg morning, 350 mg at 2pm, 300 mg at bedtime. (has both 100 mg & 200 mg for the total of 350mg and 300 mg doses levETIRAcetam (KEPPRA) 100 mg/mL solution -- -- -- -- Administer 1,600 mg via gastric tube at bedtime. levETIRAcetam (KEPPRA) 100 mg/mL solution -- -- -- -- Administer 1,500 mg via gastric tube every morning. levETIRAcetam (KEPPRA) 100 mg/mL solution -- -- -- -- Administer 200 mg via gastric tube 3 (three) times a day as needed (seizures). levocetirizine (XYZAL) 5 mg tablet -- -- -- -- 5 mg by gastric tube route every evening. loperamide (IMODIUM A-D) 1 mg/7.5 mL liquid -- -- 11/27/22 -- Take 15 mL by mouth daily as needed. LORazepam (ATIVAN) 2 mg tablet -- -- -- -- Administer 2 mg via gastric tube daily as needed (seizures, agitation). magnesium hydroxide (MILK OF MAGNESIA) 400 mg/5 mL suspension -- -- 10/09/22 -- Administer 30 mL via gastric tube daily as needed (if needed for constipation If no results from Miralax, Dulcolax Sup, Fleet, and Mineral Oil enemas.). mineral oil enema -- -- 10/09/22 -- Insert 1 enema into the rectum daily as needed. mometasone (NASONEX) 50 mcg/actuation nasal spray -- -- 12/29/17 -- Administer 2 sprays into each nostril daily. multivitamin with minerals liquid -- -- 06/26/22 -- 10 mL by g-tube route. naloxone (NARCAN) 4 mg/actuation nasal spray -- -- 12/30/23 -- Administer 1 spray (4 mg total) into one nostril as needed for reversal. Use 1 spray in 1 nostril. Repeat with second device in other nostril after 2-3 minutes if no or minimal response. Notes: Based on insurance and cost, may sub with 2 x Naloxone 2 mg/2 mL Inj (Nasal) with MAD: sig: Assemble as directed and spray 1 mL into each nostril. Repeat in 2-3 minutes if no or minimal response. nystatin (MYCOSTATIN) 100,000 unit/gram cream -- -- 03/13/23 -- Apply 1 Application topically 2 (two) times a day. Apply to groin irritation. nystatin (MYCOSTATIN) 100,000 unit/gram cream -- -- 12/30/23 -- Apply 1 Application topically 2 (two) times a day. Apply to areas of intertrigo nystatin (NYSTOP) 100,000 unit/gram powder -- -- 03/13/23 -- Apply 1 Application topically 3 (three) times a day. Apply to groin irritation. nystatin (NYSTOP) 100,000 unit/gram powder -- -- 12/30/23 -- Apply 1 Application topically 3 (three) times a day. Apply to areas of intertrigo nystatin (NYSTOP) 100,000 unit/gram powder -- -- 12/30/23 -- Apply 1 Application topically 3 (three) times a day. Apply to areas of intertrigo nystatin-triamcinolone (MYCOLOG II) 100,000 Unit/g-0.1 % cream -- -- -- -- Apply 1 Application topically 2 (two) times a day as needed (fungal infection). Apply to affected areas. olopatadine (PATADAY) 0.2 % ophthalmic solution -- -- -- -- Administer 1 drop into both eyes 4 (four) times a day as needed for allergies (redness). oxyBUTYnin (DITROPAN XL) 15 mg 24 hr tablet -- -- -- -- Take 15 mg by mouth daily. polyethylene glycol (MIRALAX) 17 gram/dose oral powder -- -- 04/05/23 -- Administer 17 g via gastric tube daily as needed for constipation. pseudoephedrine (Sudafed) 30 mg tablet -- -- 01/27/22 -- Take 30 mg by mouth every 6 (six) hours as needed for congestion. rufinamide (BANZEL) 200 mg tablet -- -- 12/30/23 12/29/24 Administer 1 tablet (200 mg total) via gastric tube every morning. rufinamide (BANZEL) 400 mg tablet -- -- -- -- 400 mg by g-tube route at bedtime. silver nitrate (ARZOL) 75-25 % topical stick -- -- 06/25/23 06/24/24 Apply 1 Application topically as needed (for treatment of granulation tissue). Use every 3-4 days as needed as educated by HEN nurse silver sulfADIAZINE (SILVADENE, SSD) 1 % cream -- -- -- -- Apply 1 Application topically daily as needed for wound care. Apply to skin break down in groin. simethicone (MYLICON,GAS-X) 125 mg capsule -- -- -- -- Take 125 mg by mouth every 6 (six) hours as needed for flatulence (bloating). torsemide (DEMADEX) 10 mg tablet -- -- -- -- Administer 10 mg via gastric tube daily as needed (edema). zaleplon (SONATA) 5 mg capsule -- -- 07/08/23 -- Take 1 capsule (5 mg total) by mouth See Admin Instructions. Take as needed, if unable to sleep during sleep study. May repeat if needed. Allow a minimum of 4 hours prior to driving after last dose. If drowsy after sleep study do not drive until adequately alert. zinc oxide (DESITIN) 13 % cream -- -- 03/13/23 -- Apply 1 Application topically as needed (skin cares). Apply to irritated perineal/ana-rectal skin. zinc oxide 40 % ointment -- -- -- -- Apply 1 g topically 2 (two) times a day. Apply to GT site for skin protectant. * Wes Person M.B.B.S. - 02/29/2024 7:14 AM CDT SUBJECTIVE This is a supervisory note for the ICU team. I have personally seen and examined the patient, and reviewed all pertinent laboratory, vital signs and imaging data. I have reviewed the history, physical examination, impression, report, and plan with the team in detail and agree with the documentationoutlined in their notes from today. Overnight was placed on low-dose norepinephrine. Respiratory status is stable. OBJECTIVE BP 103/55 Pulse 90 Temp 36.7 ??C (Axillary) Resp 12 Ht 156 cm Wt 69.4 kg SpO2 99% BMI28.52 kg/m?? ASSESSMENT / PLAN #1 Acute hypoxemic respiratory failure secondary to aspiration/community- acquired pneumonia #2 Dysphagia, on long-term tube feeds via a gastrojejunal tube (placed 2019, previously G-tube; last replaced 12/28) #3 Ayaan-Gastaut syndrome with recurrent seizures #4 Severe cognitive delay #5 Probable sleep disordered breathing; further evaluation deferred for now given complexities withany PAP implementation #6 History of ALL, status post treatment with chemoradiation at 20 months #7 History of recurrent aspiration pneumonias #8 History of prior urinary infections secondary to nephrolithiasis, 2022 #9 History of lateral medullary stroke, age 12 #10 Code status: Full code (surrogate decision maker are his parents) This is hospital day 1 for Say Hilario, a 44 y.o. male who is admitted to the ICU with acute hypoxemic respiratory failure secondary to community- acquired versus aspiration pneumonia. SUMMARY PLAN: 1. Complete three days of antibiotics for CAP versus aspiration pneumonia. Noninvasive infectious testing for respiratory pathogens. If this comes back positive for a viral pathogen I think we could stop antibiotics today. 2. I would favor targeting a lower MAP goal (55 mmHg). He has adequate perfusion (e.g. urine output) at these lower goals. 3. Continue tube feeds and home medications. 4. Benzodiazepines for generalized tonic-clonic seizure that lasts for a protracted period. Of note, he does have multiple seizures daily at baseline. 5. Interpret outside hospital DVT scan and if this is difficult for our radiologists to interpret, we will plan on repeating it. 6. Remain in the ICU for now. Remaining issues per the systems-based plan outlined in the ICU notes from today. * Rosanna Joiner, Pharm.D., R.Ph. - 02/28/2024 4:06 PM CDT Pharmacist Progress Note Reason for admission: 44 y.o. 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 Home meds: provider reviewed seizure regimen with mom, will try to review home meds ASSESSMENT and PLAN: Neuro: - resume area captain felbamate, clobazam, lamotrigine, levetiracetam, epidiolex, rufinamide and baclofen. Seizures typically not treated unless they are prolonged or generalized tonic-clonic. Family will provide guidance on when to use rescue benzodiazepines vs extra 200mg of keppra. PRN lorazepam more for agitation. - Will hold home PRN norco as he is a bit somnolent. Resp: Bipap--> aeromask 8L - Chest x-ray from outside facility reveals right-sided mid/lower lung opacity CV: low dose NE Neph: Scr 0.32 but likely over-estimates give low muscle mass. Mild hyponatremia ID: He was given a single dose of imipenem at outside hospital. Hospitalized in December 2023 and did receive/tolerate ceftriaxone. However, noting allergy recommend complete avoidance of beta lactams in future in view of SJS like and AGEP like reactions from a 2022 allergy note. Ceftriaxone likely would be reasonable with ID guidance, especially given the complex seizure history. Added doxy for atypical coverage. Opting to not cover nosocomial organisms for now but if needed, aztreonam is an option. No recent micro hx but has had some kleb UTIs in 2022 GI: TF to continue Endo: goal glucose of less than 180 and not hypoglycemic Weight Based Dosing: , last measured Weight: 70.2 kg (12/30/2023 8:00 AM) Height: 156 cm (02/28/2024 3:15 PM) , and BMI 28.85 kg/m?? . Medications reviewed Proph: [facility] Joanne Joiner, Pharm.D., R.Ph. * Wes Person M.B.BMayS. - 02/28/2024 3:52 PM CDT SUBJECTIVE CHIEF COMPLAINT: Hypoxemic respiratory failure HISTORY OF PRESENTING ILLNESS: This is a supervisory note for the multidisciplinary critical care team. I have personally seen andexamined the patient, and reviewed all pertinent laboratory, vital signs and imaging data. I have reviewed the history, physical examination, impression, report, and plan with the team in detail and agree with the documentation outlined in their notes from today. Say Hilario is a 44 y.o. male who is admitted to the ICU with acute hypoxemic respiratory failure secondary to community-acquired pneumonia. 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 His mother called EMS earlier today due to increased lethargy, and increased secretions. He was found to be hypoxemic with oxygen saturation of 80%. He was given 3 L of IV fluids, was briefly placed on norepinephrine and started on BiPAP. He was given a single dose of imipenem. On arrival to the medical ICU, he is normotensive and appears reasonably comfortable on humidified facemask. OBJECTIVE BP 105/86 Pulse 103 Temp (!) 35.7 ??C (Axillary) Resp 13 Ht 156 cm SpO2 95% BMI 28.85 kg/m?? ASSESSMENT / PLAN #1 Acute hypoxemic respiratory failure secondary to aspiration/community- acquired pneumonia #2 Dysphagia, on long-term tube feeds via a gastrojejunal tube (placed 2019, previously G-tube; last replaced 12/28) #3 Ayaan-Gastaut syndrome with recurrent seizures #4 Severe cognitive delay #5 Probable sleep disordered breathing; further evaluation deferred for now given complexities withany PAP implementation #6 History of ALL, status post treatment with chemoradiation at 20 months #7 History of recurrent aspiration pneumonias #8 History of prior urinary infections secondary to nephrolithiasis, 2022 #9 History of lateral medullary stroke, age 12 #10 Code status: Full code (surrogate decision maker are his parents) Say Hilario is a 44 y.o. male who is admitted to the ICU with acute hypoxemic respiratory failure secondary to community-acquired versus aspiration pneumonia. SUMMARY PLAN: 1. Transition antimicrobials to ceftriaxone and doxycycline. He has a history of Ren Anthony syndrome with penicillins, but has tolerated cephalosporins in the past. 2. Continue tube feeds and home medications. 3. Collateral history from family regarding precipitating events for today. 4. Noninvasive infectious testing for possible pathogen identification. 5. Benzodiazepines for generalized tonic-clonic seizure that lasts for a protracted period. Of note, he does have multiple seizures today at baseline. 6. Update family when they arrive. Remaining issues per the systems-based plan outlined in the ICU notes from today. Critical care time 30 minutes. This is time spent at this critically ill patient's bedside activelyinvolved in patient care as well as the coordination of care and discussions as appropriate. This does not include any procedural time which has been billed separately. documented in this encounter H&P Notes * Jose Delatorre M.D. - 03/03/2024 10:17 AM CDT Say Hilario 03/03/24 10:17 AM CDT Hospital Day: 4 Neuro ICU Consult Referral: MICU Chief Complaint: Coma History of Present Illness: Say Hilario is a 44 y.o. male patient with developmental delay secondary to [place]-Gastautsyndrome with medically refractory seizures, ALL treated with chemoradiation, prior lateral medullary stroke at age 12 who admitted to the medical ICU on 02/28/24 with hypoxemic respiratory failure and hypotension from community-acquired pneumonia. CT chest shows bilateral multifocal infiltrates consistent with aspiration pneumonia. Blood and respiratory secretion cultures are negative. Patient completed doxycycline and is on cefepime until 03/05. Patient he is afebrile. CT head yesterday showed no acute abnormality. The patient has a poor baseline. He sits in a wheelchair, interacts with family, no significant verbal output, moves both upper limbs symmetrically. He has almost daily short tonic-clonic seizures, mostly right after waking up. Over the last years his seizures have became less frequent. His last clinical seizure in the hospital was the day before yesterday, it was brief similar to hisusual ones. The patient's mental status remains very poor, neurology have been consulted to evaluate him in this context. The patient is receiving his home antiseizure medications. He has been on IV drips for sedation, propofol was discontinued yesterday at 5:37 a.m, and fentanyl at 9:44 a.m. Past Medical History: Diagnosis Date Apnea Sleep Obstructive Chronic Kidney Disease NOS Complication Anesthesia Initial Dermatitis 2017 Dysphagia Gastroesophageal Reflux Disease NOS 1985 Intellectual Disability Profound 12/01/2020 Leukemia 1981 Pneumonia Post Operative Nausea/Vomiting Seizure (HCC) Lennoy Guustaut Syndrome Sepsis (HCC) 02/22/2023 Sickness Motion Personal History Stroke (HCC) brain stem stroke Social History Tobacco Use Smoking status: Never Smokeless tobacco: Never Substance Use Topics Alcohol use: Never Drug use: Never Family History Problem Relation Name Age of [...] colitis Father andrés hilario Arthritis Maternal Grandfather champrosetta aguirre Coronary artery disease Maternal Grandmother [place] leon Transient ischemic attack Maternal Grandmother [place] Hypertension Maternal Grandmother [place] Sleep apnea Maternal Grandmother Champ bahenaniburt Depression Maternal Grandmother [place] Stroke Paternal Grandfather Suleman robertniburt Diabetes Paternal Grandfather Suleman sainichniburt Dementia Paternal Grandmother shauna hilario Gestational diabetes Sister neeta hilario Gestational diabetes Daughter neeta hilario Thyroid disease Sister andrés hilario Review of Systems: Unable to obtain due to medical condition Physical Exam: General: No acute distress, intubated, receiving low-dose norepinephrine to achieve blood pressure goal. Neurologic: Coma, pupils are 5 mm, initially minimally reactive. As my examination progressed, the pupils became more reactive particularly the left. Corneal and oculocephalic reflexes are present. Weak gag/cough. No response to pain. Tone is decreased throughout. Plantar response equivocal. Neck is supple. Assessment/Plan: Coma Severe encephalopathy Acute hypoxemic respiratory failure secondary to aspiration pneumonia Ayaan-Gastaut syndrome Medically refractory epilepsy Cognitive delay The patient has a poor baseline due to an epileptic encephalopathy, and has been in the ICU for 4 days for the treatment of community-acquired pneumonia requiring IV sedation. CT head yesterday showsno obvious acute structural abnormality. Patient with poor neurologic status are more susceptible to acute illness and polypharmacy, which is my main suspicion to explain his encephalopathy. He has abaseline abnormal EEG and his seizures are mostly clinical. In this setting I think EEG monitoring may be more confusing done helpful. Recommendation Consider switching cefepime to an alternative drug due to risk of neurotoxicity Continue to hold sedation AEDs levels were sent, we will follow Continue home AED regimen I will reexamine him later today to decide further workup My assessment was explained to patient's family at bedside. I answered all their questions. Discussed with CCM and bedside nurse. Critical care time 45 minutes Patient is critically ill, with organ failure, risk of further deterioration Thank you for this consult. We will continue to follow along. Please page [phone] with additional questions. Addendum I re examined the patient around 12 30 p.m. and for p.m.. At 12:30 p.m. the patient opens his eyes to pain a kept them open for brief periods of time. Between 12 30 and 2 he kept his eyes opened intermittently and moved his head [id number] as per family and bedside nurse report. He is also triggering the ventilator. He received his antiseizure medications around 2 and became more somnolent. At 4:00 p.m. the neurologic examination was similar to the morning, likely due to recent administrationof antiseizure medications. We will continue to monitor clinically. Continue to avoid sedation. Continue AEDs at home doses. Bedside nurse, family, and [facility] senior energy consultant updated. * Erasmo Lloyd APRN, C.N.P., D.N.P. - 02/28/2024 1:07 PM CDT SUBJECTIVE CHIEF COMPLAINT 44-year-old male patient with history of Ayaan-Gastaut syndrome presenting to the medical intensive care unit for further evaluation and management of acute respiratory failure. HISTORY OF PRESENT ILLNESS Say Hilario is a 44 y.o. male patient with history of Ayaan-Gastaut syndrome, developmental delay, ALL treated with chemoradiation, hx of lateral medullary stroke at age 12, seizures, who presents to [facility] Intensive Care unit via ambulance for further evaluation and management of acute respiratory failure in the setting of pneumonia (most likely community-acquired). Patient presented to [facility] Emergency Department the morning of 02/28/2024 for evaluation of shortness for breath and hypotension. In the past 24 hours, patient has had increased secretions accompanied by lethargy and increased oxygen requirements from 1 L which is his normal at night to 2 L per nasal cannula. He was admitted in January 01, 2024 for aspiration pneumonia treated with ceftriaxone and doxycycline. Emergency department course Upon his presentation to the emergency department at [facility], patient was started on BiPAP for hypoxia. Hypotension was treated with norepinephrine which was started at 0.05 mcg. Laboratory results significant for a hemoglobin of 13.3, sodium of 124, VBG pH 7.3, pCO2 58, potassium 4.1, creatinine 0.3, AST mildly elevated at 36, troponin 0.07, C-reactive 1.5, procalcitonin 0.05. COVID, influenza and RSV are negative. Chest x-ray revealed opacities in the right middle and lower lung rios. Hereceived a reported total of 3 L of crystalloids as well as a dose of imipenem. Patient arrived to the medical intensive care unit at [facility] alert, to IVs in place,as well as a Gama catheter with approximately a 1000 cc of clear yellow urine. The following portions of the patient's history were reviewed and updated as appropriate: allergies, current medications, family history, medical history, social history, surgical history, and problem list. REVIEW OF SYSTEMS Constitutional: positive for less interactive Respiratory: positive for cough and sputum All other systems negative. OBJECTIVE I have reviewed the current vital sign data as applicable to this admission. PHYSICAL EXAM General appearance: acutely ill appearing Chest: rhonchi bilaterally Heart: regular rate and rhythm, S1 and S2 normal, no murmur Skin: Mild erythema in the sacrum area. Neuro: Moans and groans. Opens eyes to verbal stimuli DIAGNOSTICS I have reviewed relevant laboratory, imaging, and other diagnostics as applicable to this admission. 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 Patient currently hemodynamically stable without the need for vasopressors. Arrives on BiPAP. Planning on switching to nasal cannula. Does have a allergy to penicillin. Curb sided Infectious Disease and they have recommended ceftriaxone and doxycycline. These 2 agents were well tolerated back in January 01, 2024. We will continue to wean oxygen, use norepinephrine as needed, p Plan by Systems: Neuro: # Ayaan-Gastaut syndrome # Developmental delay (non verbal at baseline) # Recurrent seizures # History of remote lateral medullary stroke Plan Pain management: Tylenol, [place] and Baclofen as needed. Home Medications to be continued include: Keppra, Lamictal, Cannabidiol, Clobazam, Felbamate, Seizure Rescue: Consider IV Ativan 2 mg for seizures lasting longer than 2 minutes Pulm: # Acute hypoxic respiratory failure # Pneumonia (likely community-acquired) Oxygenation goal > 92 ; currently on aerosol mask at 8 liters/minute, 35% FiO2 Chest x-ray from outside facility reveals right-sided mid/lower lung opacity Neb regimen per RT Protocol Plan Curb sided ID, agreeable to continue ceftriaxone and doxycycline. Cardio: # Shock Currently requiring low-dose norepinephrine for hypotension. EKG: Normal sinus rhythm with a QTC of 4 4 with nonspecific T-waves abnormalities. Fluid boluses prior to arrival to the MICU: 3 L Lactate 1.6 Plan Pressors: Norepinephrine Holding home medications to include torsemide in the setting of hypotension GI: Diet: NPO at this time. Consider restarting tube feeds tomorrow 02/29/2024 Endo: Glucose POC 4 times a day Renal: Monitor and replace electrolytes as needed Strict I/Os Heme: Goal Hgb > 7.0 Transfuse as indicated Will check coags and correct as necessary ID: Cultures obtained at outside facility. We will contact them tomorrow. Procalcitonin 0.05 C reactive- 1.5 Antimicrobials received prior to ICU: Imipenem Plan Antimicrobial: Ceftriaxone doxycycline Access: -PIVs -Art line : N/A -CVC N/A Other: -Code Status: Full -Dispo: ICU Level of Care -Social: Family updated : yes documented in this encounter Procedure Notes * Elisa Chapman R.N. - 03/02/2024 11:59 AM CDTAssociated Order(s): Place peripherally inserted central catheter (PICC) Place peripherally inserted central catheter (PICC) Performed by: Elisa Chapman R.N. Authorized by: Tam Huang PMayABrian, M.S. Care team members present 1. Elisa Chapman R.N. 2. Marylin White R.N. PROCEDURE DETAILS Select line: PICC Line type: temporary (non-tunneled, non-implanted) Line size: 4.0 FR Adult or Adelfo/Peds: adult # of lumens: double lumen Type of catheter: power injectable and valved Laterality: right IV location: basilic Optimal site selected: yes Number of insertion attempts: 1 Blood return: yes Placement assistance: ECG guidance Tip verification: ECG Catheter length (cm): 38 Initial exposed catheter (cm): 0 Mid upper arm circumference (cm): 34 All lumens flushed (Document volume in I/O): yes CONSENT Consent obtained: written (Risks, benefits and [...] in a procedural pause. PRE-PROCEDURE DETAILS Indications: Medication/nutrition requiring central access, insufficient peripheral access and frequent lab draws Appropriate hand hygiene, gown, cap, mask, protective eyewear, sterile gloves, skin preparation, sterile drape, and strict aseptic technique were utilized as applicable for the procedure.: yes Site preparation: Chlorhexidine SEDATION / ANESTHESIA Anesthesia method: local infiltration Local infiltrate type: lidocaine POST-PROCEDURE DETAILS Procedure completed successfully: yes Complications: no apparent complications Tissue adhesive has been applied to the PICC insertion site for securement, stabilization, and sealant. The purpose of the tissue adhesive is to reduce bleeding, reduce catheter movement/dislodgement, and protect the site from contamination. The tissue adhesive takes the place of a chlorhexidine gluconate (CHG) disk or dressing and also any other devices used for securement. Tissue adhesive will remain attached to the skin surface until natural cellular regeneration occurs(approx. 5-7 days). It is intended to be used with a transparent film dressing. Site care is recommended every 7 days. If tissue adhesive is not reapplied at the time of site care, please assess, clean, and dress the site per institutional guidelines. Residual tissue adhesive on the catheter tubing or skin during the dressing change does NOT need lavelle removed. If needed, any medical adhesive remover product may be used to release the adhesive from the skin. http://[employer]/products/secureportiv * Gregorio Comer R.R.T., L.R.T. - 03/01/2024 10:55 PM CDTAssociated Order(s): Invasive Line Invasive Line Performed by: Gregorio Comer R.RBarbara, L.R.T. Authorized by: Wes Person M.B.BMaySMay Location: ICU/PCU PROCEDURE DETAILS: Line type: arterial Laterality: right Location: radial Location details: new site Age group: adult Catheter diameter: 20 Ga Technique: ultrasound guided Ultrasound guidance: image not saved Monitored: yes Number of attempts: 1 UNIVERSAL PROTOCOL All [...] utilized as applicable for the procedure.: yes Skin preparation: chlorhexidine SEDATION / ANESTHESIA Anesthesia method: local infiltration Local infiltrate type: lidocaine POST-PROCEDURE DETAILS: Procedure completed successfully: yes Line secured: secured with sutureless device Chlorhexidine disc around insertion site and under catheter with slight turn: yes Notable Events - arterial: none Patient tolerance of procedure: successful * Ivory Paredes P.A.-C., M.S. - 03/01/2024 10:30 PM CDTAssociated Order(s): Bronchoscopy (Adult) Post-Procedure Diagnose(s): Aspiration Pneumonia Secondary to Procedure; Acute Respiratory Failure With Hypoxia (HCC) Bronchoscopy (Adult) Performed by: Ivory Paredes P.A.-C., M.S. Authorized by: Ivory Paredes P.A.-C., M.S. Care team members present 1. Tam Brower M.D. PROCEDURE DETAILS Route: endotracheal tube Obstructing secretion removal: yes (Thick, blood-tinged secretions removed from the ETT, main lauro and throughout all airways bilaterally..) Bronchial washings: no BAL (bronchoalveolar lavage): yes (Performed prior to [...] PHYLICIA participated or performed the procedure. The senior energy consultant participated in or was aware of the procedure. Associated attestation - Tam Brower M.D. - 03/02/2024 5:23 AM CDT [facility] Procedure Attestations: Accredited PHYLICIA participated in the case, and the senior energy consultant was present for the entire case. * Ivory Paredes P.A.-C., M.S. - 03/01/2024 10:00 PM CDTAssociated Order(s): Intubation Post-Procedure Diagnose(s): Acute Respiratory Failure With Hypoxia (HCC) Intubation Performed by: Ivory Paredes P.A.-C., M.S. Authorized by: Ivory Paredes P.A.-C., M.S. Care team members present 1. Tam Brower M.D. Patient location during procedure: ICU / PCU PROCEDURE DETAILS: Mask difficulty assessment: easy mask Final airway type: video laryngoscope Laryngeal Manipulation: no Final best view of glottic structures - Cormack/Lehane Score: grade 2A ETT location: oral VL device: glide scope [place] scope blade size: 4 Tube size: 7.5 ETT distance at teeth/gum: 22 Oral tube type: standard ETT Cuffed: yes Leak Test Performed: no Number of attempt to successful placement: 1 [...] ANESTHESIA Anesthesia method: none POST PROCEDURE DETAILS: Procedure outcome: successful Notable Events: no complications ATTESTATION STATEMENT An PHYLICIA participated or performed the procedure. The senior energy consultant participated in or was aware of the procedure. Associated attestation - Tam Brower M.D. - 03/02/2024 5:23 AM CDT Procedure Attestations: Accredited PHYLICIA participated in the case, and the senior energy consultant was present for the entire case. documented in this encounter Consult Notes * Fela Mann RDN, LD - 03/03/2024 9:38 AM CDTAssociated Order(s): IP CONSULT TO DIETITIAN Nutrition Care Plan Follow Up Clinical Nutrition continuing to follow patient requiring nutrition support. Patient intubated on 03/01 and remains intubated at this time. ASPEN Criteria Malnutrition Status: Malnutrition criteria not met ASSESSMENT Patient had enteral nutrition started on 02/28 with Peptamen 1.5. This was changed to Peptamen AF on03/01 to better reflect his home tube feed program. Feeds were kept at 20 mL/hr and ultimately stopped on 03/02 around 1200 due to concern for ileus after imaging of abdomen performed. Service would like to restart feeds today as patient has been having increased bowel movements. Current nutrition orders: Formula: Peptamen AF Goal: 55 mL/hr x 24 hours (not yet restarted) TF Supplements: none Water flushes: None ordered Calorie containing medications/therapies: none; propofol stopped on 03/02 at 0540 Pressor use: norepinephrine at 0.06 mcg/kg/min Tube feeds at goal are providing a total of: 1584 kcal and 100 g protein Total free water from feeds and flushes:1070 mL Tube information: GI Tubes (Adults) Gastrostomy-jejunostomy;Percutaneous endoscopic 22 Fr Left;Lower;Quadrant (abdomen) (Active) Placement Date/Time: 12/29/23 1309 Placed by: [id number] GI Tube Type: Gastrostomy-jejunostomy;Percutaneous endoscopic Low Profile? : Yes Does it have a balloon? : Yes Balloon Volume: 10 mL GI Tube Size: 22Fr Stoma Length (cm): 3.5 Tube Location: L... RN notes some sanguinous oozing from around tube site Medications: Scheduled Meds:acetic acid, 1 Application, topical, TID apixaban, 5 mg, gastric tube, BID baclofen, 20 mg, gastric tube, 4x Daily cannabidioL, 400 mg, gastric tube, Daily And cannabidioL, 600 mg, gastric tube, Daily at bedtime ceFEPIme, 2 g, intravenous, Q12H chlorhexidine, 15 mL, swish & spit, BID cloBAZam, 10 mg, gastric tube, QPM cloBAZam, 15 mg, gastric tube, QAM felbamate, 1,200 mg, gastric tube, BID felbamate, 1,500 mg, gastric tube, Daily before breakfast hydrocortisone, , topical, TID lamoTRIgine, 350 mg, gastric tube, QAM And lamoTRIgine, 350 mg, gastric tube, Every afternoon And lamoTRIgine, 300 mg, gastric tube, Daily at bedtime levETIRAcetam, 1,500 mg, gastric tube, QAM levETIRAcetam, 1,600 mg, gastric tube, Daily at bedtime lidocaine, 0-10 mL, intradermal, Once nystatin, 1 Application, topical, TID oxyBUTYnin, 5 mg, gastric tube, TID pantoprazole, 40 mg, intravenous, Daily polyethylene glycol, 17 g, gastric tube, Daily rufinamide, 200 mg, gastric tube, QAM rufinamide, 400 mg, gastric tube, Daily at bedtime sennosides-docusate sodium, 1 tablet, gastric tube, BID sodium chloride, 10-30 mL, intravenous, Once sodium chloride, 10-30 mL, intravenous, Q7 Days Continuous Infusions:norepinephrine 16 mcg/mL in D5W 250 mL infusion, 0-0.3 mcg/kg/min (Dosing Weight), Last Rate: 0.06 mcg/kg/min (03/03/24 0922) propofol 10 mg/mL infusion (Diprivan), 5-80 mcg/kg/min (Dosing Weight), Last Rate: Stopped (03/02/24 0537) Pertinent Labs: Latest Reference Range & Units 03/02/24 17:13 03/02/24 21:59 03/03/24 07:38 Glucose, POCT, B 70 - 140 mg/dL 86 98 84 Latest Reference Range & Units 03/01/24 20:59 03/02/24 03:46 03/03/24 04:03 Sodium, S 135 - 145 mmol/L 135 136 Sodium, P 135 - 145 mmol/L 134 (L) Potassium, S 3.6 - 5.2 mmol/L 4.1 4.3 Potassium, P 3.6 - 5.2 mmol/L 4.5 Chloride, S 98 - 107 mmol/L 100 102 Chloride, P 98 - 107 mmol/L 98 Bicarbonate, S 22 - 29 mmol/L 24 23 Bicarbonate, P 22 - 29 mmol/L 26 Anion Gap 7 - 15 11 11 Anion Gap, P 7 - 15 10 BUN (Blood Urea Nitrogen), S 8 - 24 mg/dL 12 12 BUN (Blood Urea Nitrogen), P 8 - 24 mg/dL 7 (L) Creatinine 0.74 - 1.35 mg/dL 0.54 (L) 0.60 (L) 0.56 (L) Estimated GFR (eGFR) >=60 mL/min/BSA >90 >90 >90 Calcium, Total, S 8.6 - 10.0 mg/dL 8.7 8.8 Calcium, Total, P 8.6 - 10.0 mg/dL 9.1 Glucose, S 70 - 140 mg/dL 101 94 Glucose, P 70 - 140 mg/dL 103 Magnesium 1.7 - 2.3 mg/dL 1.8 Phosphorus (Inorganic), S 2.5 - 4.5 mg/dL 3.0 (L): Data is abnormally low Latest Reference Range & Units 03/01/24 14:05 03/01/24 20:59 Lactate 0.5 - 2.2 mmol/L 1.4 1.4 GI Function: Last BM Date: 03/02/24, [place] Stool Chart: Type 7: Watery, no solid pieces, Passing Flatus: Yes. Total of 8 BMs noted yesterday (03/02) that were all [place] stool type 7. Noted to havereceived lactulose yesterday Estimated Needs: Calories: 7587-2490 calories/day Method to Estimate Energy Needs: kcal/kg (22-25 kcal/kg) Weight Used for Equation Calculations: 66.9 kg Protein: 80 - 100 grams/day Method to Estimate Protein Needs (g/kg): 1.2 - 1.5 gm/kg Weight Used to Calculate Protein Needs (Kg): 66.9 kg PLAN Tube feed recommendations are as follows to be given through J-port: Start enteral nutrition: Peptamen AF with standard initiation and advancement to goal rate of 55 mL/hour for 24 hours/day. Water flushes: 30 mL Q6H for tube patency through J port and G-port (additional 30 mL flushes afterany venting through G-port); additional flushes per ICU team. Do not exceed 125 mL water flushes through J-port Tube feeding of Peptamen AF at goal rate of 55 mL/hr over 24 hours will provide 1320 mL total volume, 1584 kcal, 100 grams protein, 148 grams carbohydrate, 1069 mL free water, and 106 % RDIs daily. Clinical Nutrition will continue to follow. For questions about patient's nutritional care please contact pager [phone] on weekdays 07:30-16:00 or [phone] on weekends/holidays ([facility]). * Fritz Arteaga M.T.S. - 03/02/2024 12:50 PM CDTAssociated Order(s): IP CONSULT TO AUTO BODY REPAIRER PHOTOGRAPHER ASSISTANT [facility] Spiritual Care Consult Note Patient: Say Hilario Age:44 y.o. Location: [id number] Reason(s) for encounter: Spiritual Care contact to introduce spiritual care service and assess for potential spiritual care needs. Responded to Spiritual Care Consult. Spiritual Care contact for adventist rites/sacramental encounter. Summary: I was able to meet with Say Hilario and his family. Say was unable to engage and his mom shared that he had pneumonia and much more better than before. Spiritual Assessment Anabaptism Identification / Spiritual Practices: Say is a Latter Day. The sacrament of Anointing of the sick was administered per requested. Sacraments administered: The Sacrament of Anointing was administered on Say with prayers and blessings for his continuedhealing. Coping and support: Say's parents, grand mom and other family members were present and very supportive of him. Spiritual Care interventions: Introduced the role as member of the interdisciplinary care team and assessed spiritual care needs/concerns of patient and/or family. Therapeutic and supportive listening was provided with the aim of allowing patient/family expression of emotions, hopes and worries regarding current medical condition and life stage. Facilitated adventist/spiritual practices (prayer, blessing, sacred texts, adventist item) with theaim to reinforce patient's spiritual wellness and connection with source of sacredness. Spiritual Care outcomes: Patient/family became familiar with the role of spiritual care provider and identified spiritual care needs. Spiritual and emotional distress was visibly reduced during intervention. Patient/family identified and utilized sources of spiritual wellness. Patient/family achieved a sense of spiritual peace. Patient/family reported feeling calmer, more trusting, less afraid, etc. as a result of visit. Patient/family expressed feeling comforted by prayer. Patient/family expressed peace, comfort through meeting of ritual/sacramental needs. Patient/family was appreciative of spiritual care support. Spiritual Care Plan / Recommendations: Will remain available for spiritual care as needed or requested. Chaplains can be contacted by paging [phone] ([place]) or [phone] ([facility]). * Fela Mann RDN, LD - 03/01/2024 8:23 AM CDTAssociated Order(s): IP CONSULT TO DIETITIAN; IP CONSULT TO DIETITIAN Clinical Nutrition: Initial Assessment Clinical Nutrition was requested to evaluate patient for tube feeding order consult SUBJECTIVE Mr. Hilario is a 44 y.o. male admitted for hypoxic and hypercapnic respiratory failure in the setting of community-acquired pneumonia. PMH: [place]-Gastaut syndrome, developmental delay, ALL treated with chemoradiation, chronic oxygen use (1 L nasal cannula nocturnally), and history of a lateral medullary stroke Completed visit with patient and family today as part of face to face care. Current Nutrition (since admission): Patient was started on enteral nutrition with Peptamen 1.5 at 20 mL/hr on 02/28. Feeds had increased to 30 mL/hr at this time. Norepinephrine is currently not running but is ordered. Nutrition history: Patient uses tube feeds at home via TGJ tube (J-port) with Peptamen 1.0 at 85 ml/hr overnight for 9 hrs. His mother, Shelby shares that he has stopped using [employer] packets about 9months ago. He is provided with 60 mL water flushes before and after feeds plus 250 mL water which is added to his formula occassionally when requiring additional fluid. This provides 765 kcal and 31g protien. Medications do go through the G-port and are flushes with 30 mL water aftferwards and isoccassionally vented to release gas. He was eating up until 1-2 weeks ago small amounts of soft foods like jello, pudding, and half of [employer] hamburgers. Over the past 1-2 weeks, intake has been minimal to none. Patient does use [facility] as DME for tube feed supplies. He may require updated orders for increased cartons per day if intake remains minimal to none. Food Allergies: NKFA Chewing/Swallowing Issues: VFSS with SUPERVISOR ESTIMATOR AND DRAFTER last noted to be completed on 12/30/23 and recommended regular textured foods with thin liquids for pleasure. Nutrition education/counseling: Patient is followed by [facility] with last phone call on 12/30/23 OBJECTIVE Current nutrition orders: Dietary Orders (From admission, onward) Start Ordered 02/29/24 1833 Tube feeding without oral diet -Peptamen 1.5 (RTH); Feeding route: PEG/Gastrostomy; Feed options: Continuous; Starting rate (ml/hr): 20 mL/hr; Rate advancement (ml/hrs): 10 mL/hr every 12 hours; Continuous goal rate (ml/hr): 40 mL/hr; Daily goal v... ([facility] NTR PROVIDER TO INITIATE, DIETITIAN TO MANAGE TUBE FEEDS) Continuous Question Answer Comment Tube Feeding Formula: Peptamen 1.5 (RTH) Feeding route: PEG/Gastrostomy Feed options: Continuous Starting rate (ml/hr): 20 mL/hr Rate advancement (ml/hrs): 10 mL/hr every 12 hours Continuous goal rate (ml/hr): 40 mL/hr Daily goal volume (mL): 960 02/29/24 1833 02/29/24 1805 No oral nutrition, tube feeding allowed ([facility] NTR PROVIDER TO INITIATE, DIETITIAN TOMANAGE TUBE FEEDS) Diet effective now 02/29/24 1806 Tube information: GI Tubes (Adults) Gastrostomy-jejunostomy;Percutaneous endoscopic 22 Fr Left;Lower;Quadrant (abdomen) (Active) Placement Date/Time: 12/29/23 1309 Placed by: AL6 GI Tube Type: Gastrostomy-jejunostomy;Percutaneous endoscopic Low Profile? : Yes Does it have a balloon? : Yes Balloon Volume: 10 mL GI Tube Size: 22Fr Stoma Length (cm): 3.5 Tube Location: L... Seen by NSS RN today for tube site check with increased bleeding. Pertinent Labs: Latest Reference Range & Units 02/29/24 22:28 02/29/24 22:56 03/01/24 00:15 Glucose, POCT, B 70 - 140 mg/dL 84 85 99 Latest Reference Range & Units 02/28/24 15:29 02/29/24 04:48 03/01/24 04:33 Sodium, S 135 - 145 mmol/L 132 (L) 135 Sodium, P 135 - 145 mmol/L 131 (L) Potassium, S 3.6 - 5.2 mmol/L 4.9 4.7 Potassium, P 3.6 - 5.2 mmol/L 4.2 Chloride, S 98 - 107 mmol/L 98 99 Chloride, P 98 - 107 mmol/L 94 (L) Bicarbonate, S 22 - 29 mmol/L 24 26 Bicarbonate, P 22 - 29 mmol/L 22 Anion Gap 7 - 15 10 10 Anion Gap, P 7 - 15 15 BUN (Blood Urea Nitrogen), S 8 - 24 mg/dL 6 (L) 4 (L) BUN (Blood Urea Nitrogen), P 8 - 24 mg/dL 8 Creatinine 0.74 - 1.35 mg/dL 0.32 (L) 0.40 (L) 0.39 (L) Estimated GFR (eGFR) >=60 mL/min/BSA >90 >90 >90 Calcium, Total, S 8.6 - 10.0 mg/dL 7.9 (L) 8.4 (L) Calcium, Total, P 8.6 - 10.0 mg/dL 8.4 (L) (L): Data is abnormally low GI Function: Last BM Date: 02/29/24- currently on senokot and MiraLAX for bowel regimen Integumentary/Wounds: Lines/Drains/Airways Wound Duration Wound 03/12/23 Other Moisture Associated Skin Damage Abdomen Left;Lower GJ-Tube 355 days Wound 02/28/24 Friction Injury Buttocks 1 day Medications: Scheduled Meds:apixaban, 10 mg, gastric tube, BID [START ON 03/07/2024] apixaban, 5 mg, gastric tube, BID baclofen, 20 mg, gastric tube, 4x Daily cannabidioL, 400 mg, gastric tube, Daily And cannabidioL, 600 mg, gastric tube, Daily at bedtime cefTRIAXone, 2 g, intravenous, Q24H cloBAZam, 10 mg, gastric tube, QPM cloBAZam, 15 mg, gastric tube, QAM doxycycline, 100 mg, intravenous, Q12H felbamate, 1,200 mg, gastric tube, BID felbamate, 1,500 mg, gastric tube, Daily before breakfast lamoTRIgine, 350 mg, gastric tube, QAM And lamoTRIgine, 350 mg, gastric tube, Every afternoon And lamoTRIgine, 300 mg, gastric tube, Daily at bedtime levETIRAcetam, 1,500 mg, gastric tube, QAM levETIRAcetam, 1,600 mg, gastric tube, Daily at bedtime polyethylene glycol, 17 g, gastric tube, Daily rufinamide, 200 mg, gastric tube, QAM rufinamide, 400 mg, gastric tube, Daily at bedtime sennosides-docusate sodium, 1 tablet, gastric tube, BID Continuous Infusions:norepinephrine 16 mcg/mL in D5W 250 mL infusion, 0-0.3 mcg/kg/min (Dosing Weight) Anthropometrics: Height: 156 cm Admission Weight: 69.4 kg (02/28/2024) Current Weight: 66.9 kg BMI (Calculated): 27.5 kg/m?? Weight change since admission: -2.5 kg Net IO Since Admission: -1,811.92 mL [03/01/24 1421] Weight history: No significant weight loss seen over the past year Wt Readings from Last 12 Encounters: 03/01/24 66.9 kg 12/30/23 70.2 kg 06/25/23 66.6 kg 03/31/23 69 kg 03/11/23 72.5 kg 02/26/23 70.8 kg 06/25/20 67.4 kg 06/18/20 68 kg Estimated Needs: Total Calorie Needs: 9597-6345 calories/day Method to Estimate Energy Needs: kcal/kg (22-25 kcal/kg) Weight Used for Equation Calculations: 66.9 kg Total Protein Needs: 80 - 100 grams/day (Method to Estimate Protein Needs (g/kg): 1.2 - 1.5 gm/kg) Weight Used to Calculate Protein Needs (Kg): 66.9 kg Nutrition Diagnosis: Inadequate oral intake related to dysphagia as evidenced by long wall mining machine helper dependence on supplemental enteral feeds to meet estimated needs Malnutrition Criteria: Malnutrition criteria not met The patient does not meet the ASPEN Criteria of malnutrition based on: Energy Intake: No Change Interpretation of Weight Loss: No Change Body Fat: Normal Muscle Mass: Normal Fluid Accumulation: Mild This is in the context of Chronic Illness. ASSESSMENT / PLAN ASPEN Criteria Malnutrition Status: Malnutrition criteria not met Nutrition Intervention: Interventions: Enteral nutrition. Recommendations: Tube feed recommendations are as follows to be given through J-port: Start enteral nutrition: Peptamen AF with standard initiation and advancement to goal rate of 55 mL/hour for 24 hours/day. Water flushes: 30 mL Q6H for tube patency through J port and G-port (additional 30 mL flushes afterany venting through G-port); additional flushes per ICU team. Do not exceed 125 mL water flushes through J-port Tube feeding of Peptamen AF at goal rate of 55 mL/hr over 24 hours will provide 1320 mL total volume, 1584 kcal, 100 grams protein, 148 grams carbohydrate, 1069 mL free water, and 106 % RDIs daily. Monitoring/Evaluation: Nutrition parameter to monitor: Diet Progression/NPO Status, Enteral, Pertinent Labs, Chewing/Swallowing, Nausea/Vomiting/Diarrhea, Weight Status Desired Outcome: Tolerate enteral nutrition at goal Patient Goal(s): Tolerate enteral nutrition at goal rate Clinical Nutrition will continue to follow. For questions about patient's nutritional care please contact pager [phone] on weekdays 07:30-16:00 or [phone] on weekends/holidays ([facility]). * Malini Lamb L.G.S.W., M.S.W. - 02/29/2024 1:34 PM CDTAssociated Order(s): IP CONSULT TO CARE MANAGEMENT SUBJECTIVE Social Work met with the family to address the care management consult for reconnection of both HHCand oxygen services. The patient was lying in bed sleeping, parents Shelby and Andrés were bedside. Social Work introduced self and explained both the role of an inpatient manager social work and purpose of the visit. Both Shelby and Andrés acknowledged understanding and were agreeable to meet. Shelby confirmed that patient's oxygen supplies are provided by [facility], HHC services are provided by [facility], as well as nutrition supplies are provided by [facility]. She also shared that the patient is on a [facility] waiver through [facility]. They are being provided [facility] at [facility]. The patient's parents inquired if this senior grant writer had other resources as they would like more in home supports. They gave manager social work permission to contact [facility] and talkwith the [facility] manager social work to get information on [facility]. OBJECTIVE Say Hilario is a 44 year old male who resides at home with his parents. The patient is in need of full cares. His mother, Shelby, informed that when Say is feeling better, his baseline abilities are that of an 18 month old. The patient's parents are his full-time caregivers. The patient is on a CAC waiver through [facility], his parent's/guardians gave this manager social work permission to contact [facility] to inquire about available services under the [facility] waiver. Social Work called and left a message with the CAC worker. ASSESSMENT / PLAN ASSESSMENT The patient was not assessed as he was sleeping. The patient's parents, Shelby and Andrés, are his fulltime care providers. They are wonderful advocates for their son. They are fully knowledgeable with the patient's medical and care needs. They are planning appropriately for post hospital medical and care needs. PLAN - The patient will be discharged back to his parent's home in [place], [place] - The patient's parents will provide transportation at time of discharge. - Social Work will continue to follow for supportive needs and discharge planning needs. Emma Kim, M.S.W. 02/29/24 documented in this encounter Nursing Notes * Paula Cruz, Tess., L.R.T. - 03/03/2024 9:12 AM CDT Patient is a 44 y.o. male admitted on 02/28/2024 Alert Information: Plan of Care: Patient remained intubated and mechanically ventilated on CMV RT to monitor respiratory status while in the ICU, maintain ETT depth and patency, manage and wean ventilator per ABG values, suction as needed and provide supplemental oxygen to maintain adequate saturations. RT will also maintain hemodynamic lines. Shift Summary: 0730: AM assessment done, suctioned and lavaged for small amounts of thick clear barrow secretions, nospontaneous breathing unless aroused. 1100: vent checked on ASV 80% 1527: patient placed on SPONT 15/+5 30% Principal Problem Acute Respiratory Failure With Hypoxia (HCC) Airway: ETT Standard ETT (Active) Placement Date/Time: 03/01/24 (c) 7976 Mask Ventilation: Easy mask Technique: Video laryngoscopy ETT Type: Standard ETT Tube Size: 7.5 mm Cuffed: Yes Location: Oral Airway secured at (Initial measurement) : 22 Grade View: Grade 2A Airway Ins... ETT Standard ETT-Currently secured at (cm): 22 ETT Standard ETT-Measured from: Teeth Ventilator Info: Ventilator Mode: ASV PEEP (cmH2O): 5 cm H20 FiO2 (%): 35 % Peak Airway Pressure: 21 cm H2O Plateau (Pause) Airway Pressure: 21 cm H2O Compliance (mL/cm H2O): 13.7 mL/cm H2O Driving Pressure: 13.7 cm H2O Oxygen Therapy: $Delivery Method: Ventilator FiO2 (%): 35 % Flow Rate (L/min): 8 L/min Hemodynamic monitoring: Arterial Line 03/01/24 Right Radial (Active) Placement Date/Time: 03/01/24 (c) 1031 Procedural Pause Completed: Yes Catheter Time Out Checklist Completed: Yes Hand Hygiene Performed Prior to Insertion: Yes Site Prep: Chlorhexidine (Preferred) Sterile Barriers Used : Cap;Gloves;Gown;Large d... Recent ABG: Recent Labs 03/02/24 1715 PO2 ART 88 PCO2 ART 41 PH ART 7.40 HCO3 ART 25 BASE EXC ART 0 Paula Cruz R.R.T., L.R.T. 03/03/24 9:13 AM CDT * Anthony Montilla R.R.T., L.R.T., WET PROCESS TECHNICIAN-[facility] - 03/03/2024 4:53 AM CDT Patient is a 44 y.o. 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 Remains on ASV 80%, PEEP 5, FiO2 increased to 40% due to SpO2 88%. Small amounts of barrow secretions suctioned via ETT. 2247: Vent assessed, no changes 0335: Vent assessed, no changes Plan of Care: Continue to monitor respiratory status while in the ICU, maintain airway patency, and provide mechanical ventilation, RT to maintain, manage and wean ventilation and oxygenation per protocols and ABGvalues, Manage hemodynamic lines per protocol, Skin clean and intact with no areas of redness on the face, lips, toungue, neck or ears, and ETT repositioned Q4 hours Airway: ETT Standard ETT (Active) Placement Date/Time: 03/01/24 (c) 5 Mask Ventilation: Easy mask Technique: Video laryngoscopy ETT Type: Standard ETT Tube Size: 7.5 mm Cuffed: Yes Location: Oral Airway secured at (Initial measurement) : 22 Grade View: Grade 2A Airway Ins... ETT Standard ETT-Currently secured at (cm): 22 ETT Standard ETT-Measured from: Teeth Ventilation: Ventilator Mode: ASV Respiratory Rate Settin Breaths/min PEEP (cmH2O): 5 cm H20 FiO2 (%): 40 % Peak Airway Pressure: 23 cm H2O Plateau (Pause) Airway Pressure: 21 cm H2O Compliance (mL/cm H2O): 13.7 mL/cm H2O Driving Pressure: 14.6 cm H2O Oxygen Therapy: $Delivery Method: Ventilator FiO2 (%): 40 % Flow Rate (L/min): 8 L/min Hemodynamic monitoring: Arterial Line 03/01/24 Right Radial (Active) Placement Date/Time: 03/01/24 (c) Procedural Pause Completed: Yes Catheter Time Out Checklist Completed: Yes Hand Hygiene Performed Prior to Insertion: Yes Site Prep: Chlorhexidine (Preferred) Sterile Barriers Used : Cap;Gloves;Gown;Large d... Recent ABG: Recent Labs 03/02/24 1715 PO2 ART 88 PCO2 ART 41 PH ART 7.40 HCO3 ART 25 BASE EXC ART 0 Anthony Montilla R.R.T., L.R.T., WET PROCESS TECHNICIAN-[facility] 03/03/24 4:53 AM CDT * Teagan Beverly, RMayNMay, CCRN - 03/02/2024 3:43 PM CDT Shift Goals: Clinical Goals for the Shift: MAP >65 Identify possible barriers to meeting goals/advancing plan of care: Altered mental status End of Shift Summary: Assumed care of pt at 0700. Pt RASS -2 throughout day - intermittently opening eyes to stimuli. Not moving extremities. Service aware and pt remains off sedation. CT head also obtained. Pt still requiring norepinephrine, titrating to MAP goal 65-75. Sinus rhythm w/ HR 70-80s. CXR and abdominal xray done. TF stopped d/t ileus on imaging. Lactulose given as ordered. X1 loose stool after. Family at bedside throughout day, poultry service technician visited at bedside. Problem: RESPIRATORY - ADULT Goal: Achieves optimal ventilation and oxygenation Outcome: Progressing; Improvement in secretion burden noted. Pt still continues to have a small amount of thick barrow/blood-tinged secretions w/ ETT suctioning. Electronically signed by: Teagan Beverly R.N., NIKKO 03/02/24 3:50 PM CDT * Paula Cruz, R.R.T., L.R.T. - 03/02/2024 10:06 AM CDT Patient is a 44 y.o. male admitted on 02/28/2024 Alert Information: Plan of Care: Patient remained intubated and mechanically ventilated on CMV RT to monitor respiratory status while in the ICU, maintain ETT depth and patency, manage and wean ventilator per ABG values, suction as needed and provide supplemental oxygen to maintain adequate saturations. RT will also maintain hemodynamic lines. Shift Summary: 0730: AM assessment done, suctioned and lavaged for large amounts of thick clear barrow secretions. 0930: patient transported to CT on transport vent, APVcmv 14, 320, +5, 30% 1115: patient placed on ASV 100%, +5 30% 1500: vent checked, no changes made 1700: ASV decreased to 80% Principal Problem Acute Respiratory Failure With Hypoxia (HCC) Airway: ETT Standard ETT (Active) Placement Date/Time: 03/01/24 (c) 8420 Mask Ventilation: Easy mask Technique: Video laryngoscopy ETT Type: Standard ETT Tube Size: 7.5 mm Cuffed: Yes Location: Oral Airway secured at (Initial measurement) : 22 Grade View: Grade 2A Airway Ins... ETT Standard ETT-Currently secured at (cm): 22 ETT Standard ETT-Measured from: Teeth Ventilator Info: Ventilator Mode: (S)CMV PEEP (cmH2O): 5 cm H20 FiO2 (%): 30 % Peak Airway Pressure: 28 cm H2O Plateau (Pause) Airway Pressure: 24 cm H2O Compliance (mL/cm H2O): 17.6 mL/cm H2O Driving Pressure: 18.4 cm H2O Oxygen Therapy: $Delivery Method: Ventilator FiO2 (%): 30 % Flow Rate (L/min): 8 L/min Hemodynamic monitoring: Arterial Line 03/01/24 Right Radial (Active) Placement Date/Time: 03/01/24 (c) 3554 Procedural Pause Completed: Yes Catheter Time Out Checklist Completed: Yes Hand Hygiene Performed Prior to Insertion: Yes Site Prep: Chlorhexidine (Preferred) Sterile Barriers Used : Cap;Gloves;Gown;Large d... Recent ABG: Recent Labs 03/02/24 0346 PO2 ART 127 H PCO2 ART 36 PH ART 7.47 H HCO3 ART 26 BASE EXC ART 2 Paula Cruz R.R.T., L.R.T. 03/02/24 10:06 AM CDT * Zayda Nielson, R.N. - 03/02/2024 5:20 AM CDT Problem: KNOWLEDGE DEFICIT Goal: Patient/family/caregiver demonstrates understanding of disease process, treatment plan, medications, and discharge instructions Outcome: Progressing Problem: INFECTION - ADULT Goal: Absence of infection during hospitalization Outcome: Progressing Problem: SAFETY ADULT Goal: Maintain a safe environment Outcome: Progressing Shift Goals: Clinical Goals for the Shift: Patient will remain hemodynamically stable throughout the night Identify possible barriers to meeting goals/advancing plan of care: ICU level of care, secretions End of Shift Summary: Patient is nonverbal, unable to follow commands. Patient was intubated [id number] (03/01), and placed on a propofol drip which is currently at a rate of 10. Bronch and ramon placement followed afterwards. Patient is on (S)CMV: peep of 5, rate of 14, and fiO2 at 35%. MAPs dropped in the 40s at the beginning of the night, norepi restarted and is on at .05 now. Norepi is running through a peripheral IV, service is aware. Albumin given at 2330. * Gregorio Comer R.R.T., L.R.T. - 03/02/2024 2:37 AM CDT Alert Information: Shift Summary: 1899: Patient NT suctioned 2229: Patient intubated and bronchoscopy performed 2299: Arterial line placed Plan of Care: Maintain ETT and mechanical ventilation. Monitor arterial line. Principal Problem Acute Respiratory Failure With Hypoxia (HCC) ETT Standard ETT (Active) Placement Date/Time: 03/01/24 (c) 2236 Mask Ventilation: Easy mask Technique: Video laryngoscopy ETT Type: Standard ETT Tube Size: 7.5 mm Cuffed: Yes Location: Oral Airway secured at (Initial measurement) : 22 Grade View: Grade 2A Airway Ins... Arterial Line 03/01/24 Right Radial (Active) Placement Date/Time: 03/01/24 (c) 2254 Procedural Pause Completed: Yes Catheter Time Out Checklist Completed: Yes Hand Hygiene Performed Prior to Insertion: Yes Site Prep: Chlorhexidine (Preferred) Sterile Barriers Used : Cap;Gloves;Gown;Large d... Ventilator Info: Ventilator Mode: (S)CMV FiO2 (%): 35 % PEEP (cmH2O): 5 cm H20 Plateau (Pause) Airway Pressure: 21 cm H2O Compliance (mL/cm H2O): 20.5 mL/cm H2O Recent Labs 03/01/242307 PO2 ART 73 L PCO2 ART 38 PH ART 7.43 * Teagan Beverly R.N., CCRN - 03/01/2024 5:59 PM CDT Shift Goals: Clinical Goals for the Shift: MAP>55 Identify possible barriers to meeting goals/advancing plan of care: Secretion burden, somnolence End of Shift Summary: Assumed care of pt at 0700. Pt RASS -1 to -2, non-verbal, unable to follow commands. Required frequent suctioning with copious secretions - see RT note. ABG/CXR obtained in AM. Remains on aerosol mask w/ nasal airway. SpO2 >92%. Norepi shut off at start of shift - MAP remains >55 per CCM2 goals. Urine output dropped off to <20 cc/hr in afternoon - lactate drawn and WDL. UCI irrigated by urology d/t red clots in catheter tubing. PEG/J site continues to ooze diane red blood - service aware. WOC nurse and PEG nurse assessed at bedside. Dressings changed frequently with skin protectant applied. Problem: RESPIRATORY - ADULT Goal: Achieves optimal ventilation and oxygenation Outcome: Progressing; see above. Electronically signed by: Teagan Beverly R.N., ZEFERINON 03/01/24 6:03 PM CDT * Paula Cruz, R.R.T., L.R.T. - 03/01/2024 4:00 PM CDT Patient is a 44 y.o. male admitted on 02/28/2024 Principal Problem: Acute Respiratory Failure With Hypoxia (HCC) Plan of Care: Patient remains on Aerosal mask . RT will continue to assess and monitor while in ICU, emergency bag and mask at bedside. Shift Summary: 0730: patient assessed, course breath sounds on aerosal mask 28% 5L, very hard to arouse. Talked with service about getting chest xray and abg, both came back. 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 Try to go down the patients right nare and could not pass and had some bleeding. Patient coughed at this time and coughed up a small amount of thick secretions.patient is having snoring and sounds like obstruction, head positioned so he was moving air. 1500: Hand held percussion for 15 min with suctioning. Nasal pharyngeal airway placed in the right nare, 6.5 fr. Through the treatment a moderate amount of blood tinged secretions were suctioned out,not an effective cough. Communicated concerns to service. Airway: 6.5 nasal pharyngeal airway placed today at 1530. Oxygen Therapy: $Delivery Method: Aerosol mask FiO2 (%): 28 % Flow Rate (L/min): 5 L/min Recent ABG: Recent Labs 03/01/24 0951 PO2 ART 94 PCO2 ART 53 H PH ART 7.33 L HCO3 ART 28 H BASE EXC ART 2 Paula Cruz R.R.T., TezRBarbara 03/01/24 4:03 PM CDT * Carole Ellis, RJuli, C.M.S.R.N. - 03/01/2024 12:49 PM CDT Feeding Tube Site Care Indication for Consult: Feeding tube site check Leaking tube Tube Type and size: FAROOQ low profile Transgastric jejunal ([employer] Size: 22 Zimbabwean, 3.5 stoma length Connector Type: Small bore (ENFit) Date of tube placement: Replaced 12/30/2023 Placed by: GI Skin integrity at tube site: Moderate redness around entire site. The area of greatest redness was from the 6 to 9 o'clock position and measured about 3.5cm. The remainder of the insertion site had redness that extended about 1 cm out from site. Pain at tube site: Patient was not able to indicate pain. Disc position: This type of tube has no skin disc. Tube Rotation: Tube was not rotated due to tube type. This tube is not to be rotated. Tube insertion site was assessed and there was moderate amount of bloody drainage at the site. Mepilex Up was present. The site was cleaned with soap and water and Mepilex UP was replaced. A small amount of bleeding was noted as site care was completed. Applied barrier spray around tube for skin protection. No hypergranulation tissue noted. Yeast not present. Family stated that bilious drainage started at the site about a week ago, but the bleeding started after he was admitted. He was recently started on blood thinners. Findings discussed with primary team. Recommendations: Site care to be completed per enteral feeding tube exit site care procedure. Leave insertion site open to air if there is no drainage. If drainage is present, Mepilex UP can be used to collect the drainage. Secure tube to abdomen with a tube murphy (Flexi-Trak or other). Do not rotate tube. Clean the ENFit?? tube connector every 24 hours and when visibly soiled using a cleaning brush. Barrier spray can be used to protect the skin from drainage. Findings discussed with primary team and they plan to follow up with GI. * Ellie Coello, R.R.T., C.R.T., L.R.T. - 03/01/2024 6:05 AM CDT Patient is a 44 y.o. 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 Around 0030 patient sounded quite course and was having multiple desaturation episodes. He was NTS and a copious amount of thick, barrow/blood tinged secretions were obtained. His oxygen was increased to 35% / 8L at this time but was weaned back to settings below around 0400. Plan of Care: Continue to monitor respiratory status while in the ICU, maintain airway patency, and provide mechanical ventilation and RT to maintain, manage and wean ventilation and oxygenation per protocols and ABG values Oxygen Therapy: $Delivery Method: Aerosol mask FiO2 (%): 28 % Flow Rate (L/min): 5 L/min Ellie Coello R.R.T., NeelRBarbara, TezRMayT. 03/01/24 6:05 AM CDT * Zayda Nielson R.N. - 03/01/2024 5:20 AM CDT Shift Goals: Clinical Goals for the Shift: Patient will remain hemodynimallcy stable throughout the night Identify possible barriers to meeting goals/advancing plan of care: ICU level of care End of Shift Summary: Patient is nonverbal, unable to assess orientation status and is unable to follow commands. Baseline, patient plays with toys at home and tends to be more interactive with others. Overnight, the patient was drowsy and had diminished arousability. HR in the 80s, MAPs >55 while on .02 of norepi. Patient's Sp02 would periodically dip to low 80s while sleeping, and patient was suctioned around 0000am. Patient is on the aerosol mask 28%/5L. Problem: KNOWLEDGE DEFICIT Goal: Patient/family/caregiver demonstrates understanding of disease process, treatment plan, medications, and discharge instructions Outcome: Progressing Problem: INFECTION - ADULT Goal: Absence of infection during hospitalization Outcome: Progressing * Abdon Elliott R.R.T., LMayR.T. - 02/29/2024 4:50 PM CDT Patient is a 44 y.o. male admitted on 02/28/2024 Shift Summary: 08:15 Patient remains aerosol mask for secretions mobilization, and decreased settings from 35%/8 Lto 28%/5L due to high SpO2. 11:00 Nasotracheal Suction Therap completed at this time with large Barrow and blood tinged secretions. Patiens aerosol mask during the day, and Oxygen device checks completed. Respiratory Therapies and Medications: DuoNeb QID PRN. NTS PRN PLAN OF CARE: RT will continue to assess respiratory status while in the ICU, and provide respiratory care as needed. RT to provide NTS and needed, supplemental oxygen to maintain adequate saturations, and manage oxygen devices per protocol. 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 02/29/24 4:50 PM CDT * Ellie Coello, Fawad.Fawad.T., C.R.T., L.R.T. - 02/29/2024 4:56 AM CDT Patient is a 44 y.o. 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 Around 0140 he desaturated and his oxygen was increased to 40% and 10L. Around 0300 patient appeared to be snoring with NPA in and it was removed around 0330. Plan of Care: Continue to monitor respiratory status while in the ICU, maintain airway patency, and provide mechanical ventilation and RT to maintain, manage and wean ventilation and oxygenation per protocols and ABG values Oxygen Therapy: $Delivery Method: Aerosol mask FiO2 (%): 35 % Flow Rate (L/min): 8 L/min Recent ABG: Recent Labs 02/28/24 1745 PO2 ART 77 L PCO2 ART 45 PH ART 7.34 L HCO3 ART 23 BASE EXC ART -2 Ellie Coello R.R.T., Girsih.R.TMay, L.R.TMay 02/29/24 4:56 AM CDT * Paula Cruz R.R.T., L.R.TMay - 02/28/2024 4:26 PM CDT Patient is a 44 y.o. male admitted on 02/28/2024 Principal Problem: Acute Respiratory Failure With Hypoxia (HCC) Plan of Care: Patient remains on Aerosal mask 35%. RT will continue to assess and monitor while in ICU, emergency bag and mask at bedside. Shift Summary: 1450: patient arrived to unit on BiPAP 04/17 with EMS, patient looked tachypneic and was removed fromthe PAP and placed on 4L nasal cannula, He had a very wet cough and crackles in the lung rios, patient was NT suctioned was not able to pass through the left nare but it triggered aggressive coughing to help get secretions up. After talking with mom she had mentioned what was his norm at home andshe was concerned about the grunting or Snoring so we placed a Nasal pharyngeal airway in the right nare to prevent obstruction. 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 02/28/24 4:26 PM CDT documented in this encounter Miscellaneous Notes * Documentation Clarification - Gardenia Gordillo APRN, C.N.PMay, M.S.N. - 03/02/2024 8:35 AM CDT PROVIDER RESPONSE TEXT: To clarify, the appropriate diagnosis supported by the clinical indicators: Pancytopenia, QUERY TEXT: Clarification DOCUMENTATION CLARIFICATION REQUEST Please clarify/specify the appropriate diagnosis supported in the clinical indicators below. Clinical Indicators/Risk Factors/Treatment: Date of admission: 02/28/2024 Clinical indicators: H&P by Erasmo Lloyd APRN, C.N.PMay, D.N.P. at 02/28/2024 44 y.o. 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 Labs: 02/28/2024 WBC 2.3, Hgb 12.0, PLT 119 02/29/2024 WBC 5.8, Hgb 10.6, PLT 128 03/01/2024 WBC 12.4, Hgb 10.8, PLT 130 Treatment: Monitoring labs Options provided: -- Pancytopenia -- Other - I will add my own diagnosis -- Disagree - Clinically unable to determine / Unknown -- Refer to Clinical Documentation Reviewer Query created by: Jossy Gayle on 03/02/2024 8:33 AM Electronically signed by: Gardenia Gordillo APRN 03/02/2024 8:35 AM * Documentation Clarification - Gardenia Gordillo APRN, C.N.PMya, M.S.N. - 03/02/2024 8:33 AM CDT PROVIDER RESPONSE TEXT: To clarify, the appropriate diagnosis supported by the clinical indicators: Sepsis with septic shock due to aspiration pneumonia, QUERY TEXT: Clarification DOCUMENTATION CLARIFICATION REQUEST Please clarify/specify the appropriate diagnosis supported in the clinical indicators below. Clinical Indicators/Risk Factors/Treatment: Date of admission: 02/28/2024 Clinical indicators: H&P by Erasmo Lloyd APRN, C.N.PMay, D.N.P. at 02/28/2024 44 y.o. 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 Vitals: Pulse 103 Temp (!) 35.7 ??C Labs: 02/28/2024 WBC 2.3 02/29/2024 WBC 5.8 03/01/2024 WBC 12.4 Provider documentation: H&P by Erasmo Lloyd APRN, C.N.PMay, D.N.P. at 02/28/2024 # Shock- Currently requiring low-dose norepinephrine for hypotension. PN by Erasmo Lloyd APRN C.N.P., D.N.P. at 02/29/2024 Patient continues to require oxygen supplementation and low dose norepinephrine this AM. Will continue Ceftriaxone and Doxy for now for suspected CAP vs aspiration Pneumonia. Treatment: ICU cares, treatment of CAP ceftriaxone and doxycycline, oxygen therapy, NE as required Options provided: -- Sepsis with septic shock due to aspiration pneumonia -- Other - I will add my own diagnosis -- Disagree - Clinically unable to determine / Unknown -- Refer to Clinical Documentation Reviewer Query created by: Jossy Gayle on 03/02/2024 8:31 AM Electronically signed by: Gardenia Gordillo APRN 03/02/2024 8:33 AM * Documentation Clarification - Gardenia Gordillo APRN, C.N.P., M.S.N. - 03/02/2024 8:21 AM CDT PROVIDER RESPONSE TEXT: To clarify, the appropriate diagnosis supported by the clinical indicators: Respiratory acidosis, QUERY TEXT: Clarification DOCUMENTATION CLARIFICATION REQUEST Please clarify/specify the appropriate diagnosis supported in the clinical indicators below. Clinical Indicators/Risk Factors/Treatment: Date of admission: 02/28/2024 Clinical indicators: H&P by Erasmo Lloyd APRN, C.N.PMay, D.N.P. at 02/28/2024 44 y.o. male patient with history of Aya[place]-Gastaut syndrome, developmental delay, ALL treated with chemoradiation, hx of lateral medullary stroke at age 12, seizures, who presents with acute respiratory failure in the setting of pneumonia (most likely community-acquired). Labs: 02/28/2024 venous pH 7.27, pCO2 62 03/01/2024 venous pH 7.30, pCO2 60 Oxygen therapy: On CFM FIO2 0.40 dropped to CFM FIO2 0.28 on 03/01 Treatment: Monitoring labs, oxygen therapy Options provided: -- Respiratory acidosis -- Other - I will add my own diagnosis -- Disagree - Clinically unable to determine / Unknown -- Refer to Clinical Documentation Reviewer Query created by: Jossy Gayle on 03/02/2024 8:19 AM Electronically signed by: Gardenia Gordillo APRN 03/02/2024 8:21 AM * Documentation Clarification - Gardenia Gordillo APRN C.N.P., M.S.N. - 03/02/2024 8:21 AM CDT PROVIDER RESPONSE TEXT: To clarify, the appropriate diagnosis supported by the clinical indicators: Anemia is other chronic disease, QUERY TEXT: Clarification DOCUMENTATION CLARIFICATION REQUEST Please clarify/specify the appropriate diagnosis supported in the clinical indicators below. Clinical Indicators/Risk Factors/Treatment: Date of admission: 02/28/2024 Clinical indicators: H&P by Erasmo Lloyd APRN, Girish.N.P., D.N.P. at 02/28/2024 44 y.o. male patient with history of Ayaan-Gastaut syndrome, developmental delay, ALL treated with chemoradiation, hx of lateral medullary stroke at age 12, seizures, who presents with acute respiratory failure in the setting of pneumonia (most likely community-acquired). Labs: 12/29/2023 Hgb 11.1 02/02/2024 Hgb 12.5 02/28/2024 Hgb 12.0 02/29/2024 Hgb 10.6 03/01/2024 Hgb 10.8 03/01/2024 Hgb 9.9 03/02/2024 Hgb 8.9 Provider documentation: Progress Notes by Gardenia Gordillo APRN, C.N.P., M.S.N. at 03/01/2024 # Anemia Treatment: Monitoring labs Options provided: -- Anemia is other chronic disease -- Other - I will add my own diagnosis -- Disagree - Clinically unable to determine / Unknown -- Refer to Clinical Documentation Reviewer Query created by: Jossy Gayle on 03/02/2024 8:09 AM Electronically signed by: Gardenia Gordillo APRN 03/02/2024 8:21 AM * Hospital Course - Erasmo Lloyd APRN, C.N.P., D.N.P. - 02/28/2024 5:12 PM CDT Say Hilario is a 44 y.o. 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 Patient presented to [facility] Emergency Department the morning of 02/28/2024 for evaluation of shortness for breath and hypotension. In the past 24 hours, patient has had increased secretions accompanied by lethargy and increased oxygen requirements from 1 L which is his normal at night to 2 L per nasal cannula. He was admitted in January 01, 2024 for aspiration pneumonia treated with ceftriaxone and doxycycline. Emergency department course Upon his presentation to the emergency department at [facility], patient was started on BiPAP for hypoxia. Hypotension was treated with norepinephrine which was started at 0.05 mcg/kg/min. Laboratoryresults significant for a hemoglobin of 13.3, sodium of 124, VBG pH 7.3, pCO2 58, potassium 4.1, creatinine 0.3, AST mildly elevated at 36, troponin 0.07, C-reactive 1.5, procalcitonin 0.05. COVID, influenza and RSV are negative. Chest x-ray revealed opacities in the right middle and lower lung rios. He received a reported total of 3 L of crystalloids as well as a dose of imipenem. Patient arrived to the medical intensive care unit at [facility] alert, two IVs in place, as well as a Gama catheter with approximately a 1000 cc of clear yellow urine. Medical intensive care unit course In the ICU, patient was transitioned from BiPAP to face mask. He initially required vasopressor support. He was started on doxycycline and ceftriaxone for community-acquired pneumonia versus aspiration pneumonia. Positive lower extremity ultrasound for DVT. Started on Eliquis. CT for PE negative for acute pulmonary embolism but showed bilateral multifocal opacities concerning for community-acquired pneumonia versus aspiration pneumonia. Patient was intubated the evening of 03/01 for concern for secretion clearance. Neurology was also consulted for encephalopathy. CT of the head revealed no structural abnormality. His symptoms were thought to be related to his acute illness and polypharmacy. documented in this encounter Plan of Treatment Pending Results Name Type Priority Associated Diagnoses Date /Time Bacterial Culture, Aerobic + Susceptibility, Respiratory Microbiology Routine 02/29/2024 12:37 PM CDT Bacteria / Christopher Culture, Blood #1 Microbiology Routine 03/01/2024 11: 08 PM CDT Bacteria / Christopher Culture, Blood #2 Microbiology Routine 03/01/2024 11: 07 PM CDT Bacterial Culture, Aerobic + Susceptibility, Respiratory Microbiology Routine 03/02/2024 12:44 AM CDT Clobazam and Metabolite Lab Routine 03/02/2024 11:18 AM CDT Rufinamide, S Lab Routine 03/02/2024 11:18 AM CDT Scheduled Orders Name Type Priority Associated Diagnoses Order Schedule Pulse oximetry, continuous Intensive Care Unit (ICU) status Respiratory Care Routine respiratory use [id number]-leuk reminder at 8am and 8pm until discontinued starting 02/28/2024 Adult Oxygen Therapy Continuous (RT) Respiratory Care Routine respiratory use [id number] reminder at 8am and 8pm until discontinued starting 02/28/2024, 9 completed Glucose, POCT Point of Care Testing-Docked Device Routine 0800, 1200, 1700, 2100 until discontinued starting 02/28/2024, 17 completed Glucose, POCT Point of Care Testing-Docked Device Timed As needed until discontinued starting 02/29/2024 Bacterial Culture, Aerobic + Susceptibility, Respiratory Microbiology Routine Routine lab collection (next collection) for 1 Occurrences starting 03/01/2024 until 03/01/2024 Mechanical Ventilator - Adult; Synchronized Controlled Mandatory Vent (ACV/S-CMV); Respiratory Therapy; 90% - 95%; Respiratory Therapy; 6 Respiratory Care Routine respiratory use only - 0700, 1100, 1500, 1900, 2300 until discontinued starting 03/01/2024, 15 completed Airway Care Respiratory Care Routine respira tory use only - 0800, 2000 until discontinued starting 03/02/2024, 5 completed Clobazam and Metabolite Lab Routine Routine lab collection (next collection) for 1 Occurrences starting 03/02/2024 until 03/02/2024 Rufinamide, S Lab Routine Routine lab collection (next collection) for 1 Occurrences starting 03/02/2024 until 03/02/2024 Basic Metabolic Panel Lab Routine Daily for 10 Day s starting 03/03/2024 until 03/12/2024, 2 completed CBC without Differential Lab Routine Daily for 10 Day s starting 03/03/2024 until 03/12/2024, 2 completed documented as of this encounter Procedures The patient is currently admitted. The information in this section might not be complete until the patient is discharged. Procedure Name Priority Date/Time Associated Diagnosis Comments CBC WITHOUT DIFFERENTIAL, B Routine 03/04/2024 3:27 AM CDT PHOSPHORUS (INORGANIC), S Routine 03/04/2024 3:27 AM CDT BASIC METABOLIC PANEL, S/P Routine 03/04/2024 3:27 AM CDT GLUCOSE POCT, B Routine 03/03/2024 8:48 [...] POCT, B Routine 03/02/2024 9:59 PM CDT ADULT OXYGEN THERAPY Routine 03/02/2024 8:00 PM CDT AIRWAY CARE Routine 03/02/2024 8:00 PM CDT MECHANICAL VENTILATOR [...] CATHETER (PICC) Routine 03/02/2024 11:59 AM CDT FELBAMATE (FELBATOL) LEVEL, S Routine 03/02/2024 11:18 AM CDT LEVETIRACETAM LEVEL, S Routine 03/02/2024 11:18 AM CDT LAMOTRIGINE LEVEL, S Routine 03/02/2024 11:18 AM CDT MECHANICAL VENTILATOR Routine 03/02/2024 11:00 AM CDT CBC WITHOUT DIFFERENTIAL, B STAT 03/02/2024 10:[address] HEAD WITHOUT IV CONTRAST RAD - Routine (most inpatients and all outpatients) 03/02/2024 9:50 AM CDT ADULT OXYGEN THERAPY Routine 03/02/2024 8:01 AM CDT AIRWAY CARE Routine 03/02/2024 8:01 AM CDT GLUCOSE POCT, B Routine 03/02/2024 7:49 AM CDT MECHANICAL VENTILATOR Routine 03/02/2024 7:01 AM CDT AIRWAY CARE Routine 03/02/2024 6:51 AM CDT AIRWAY CARE Routine 03/02/2024 6:51 AM CDT AIRWAY CARE Routine 03/02/2024 6:51 AM CDT PATIENT STATUS, ABG Routine 03/02/2024 3 :46 AM CDT CBC WITHOUT DIFFERENTIAL, B Routine 03/02/2024 3:46 AM CDT ABG W/O COOX Routine 03/02/2024 3:46 AM CDT COMPREHENSIVE METABOLIC PANEL, S/P Routine 03/02/2024 3:46 AM CDT CYSTATIN C WITH EGFR Routine 03/02/2024 3:42 AM CDT MECHANICAL VENTILATOR Routine 03/02/2024 3:00 AM CDT CELL COUNT AND DIFFERENTIAL, BROCHOALVEOLAR LAVAGE Routine 03/02/2024 2:38 AM CDT STREPTOCOCCUS PNEUMONIAE AG, U Routine 03/02/2024 12:44 AM CDT LEGIONELLA AG, U Routine 03/02/2024 12:44 AM CDT DX ABDOMEN PORTABLE ANTERIOR POSTERIOR 1 VIEW RAD - Emergent (Fastest; for the most critically ill patients) 03/01/2024 11:18 PM CDT DX CHEST PORTABLE 1 VIEW RAD - Emergent (Fastest; for the most critically ill patients) 03/01/2024 11:18 PM CDT PATIENT STATUS, ABG STAT 03/01/2024 11:08 PM CDT BACTERIA / CHRISTOPHER CULTURE, BLOOD Routine 03/01/2024 11:08 PM CDT ABG W/O COOX STAT 03/01/2024 11:08 PM CDT CYSTATIN C WITH EGFR STAT 03/01/2024 11:07 PM CDT BACTERIA / CHRISTOPHER CULTURE, BLOOD Routine 03/01/2024 11:07 PM CDT MECHANICAL VENTILATOR Routine 03/01/2024 11:01 PM CDT MC ANE INVASIVE CATHETER Routine 03/01/2024 10:55 PM CDT AR BRONCHOSCOPY W ALVEOLAR LAVAGE Routine 03/01/2024 10:30 [...] CDT Acute Respiratory Failure With Hypoxia (HCC) AR INTUB W ETT Routine 03/01/2024 10:00 PM CDT Acute Respiratory Failure With Hypoxia (HCC) PATIENT STATUS STAT 03/01/2024 9:02 PM CDT VENOUS BLOOD GAS W/O COOX STAT 03/01/2024 9:02 PM CDT DX CHEST PORTABLE 1 VIEW RAD - Emergent (Fastest; for the most critically ill patients) 03/01/2024 9:00 PM CDT PH BLOOD GAS STAT 03/01/2024 8:59 PM CDT HEPATIC FUNCTION PANEL, S STAT 03/01/2024 8:59 PM CDT CBC WITHOUT DIFFERENTIAL, B STAT 03/01/2024 8:59 PM CDT TYPE AND SCREEN STAT 03/01/2024 8:59 PM CDT PHOSPHORUS (INORGANIC), S STAT 03/01/2024 8:59 PM CDT MAGNESIUM, S STAT 03/01/2024 8:59 PM CDT LACTATE, B/P STAT 03/01/2024 8:59 PM CDT CALCIUM, IONIZED, S/B STAT 03/01/2024 8:59 PM CDT BASIC METABOLIC PANEL, S/P STAT 03/01/2024 8:59 PM CDT GLUCOSE POCT, B Routine 03/01/2024 8:53 PM CDT ADULT OXYGEN THERAPY Routine 03/01/2024 8:00 PM CDT GLUCOSE POCT, B Routine 03/01/2024 5:12 PM CDT CHEST PHYSIOTHERAPY Routine 03/01/2024 3 :35 PM CDT LACTATE, B/P STAT 03/01/2024 2:05 PM CDT (TTE) 2D ECHO DOPPLER COLOR AND CONTRAST Routine 03/01/2024 12:44 PM CDT GLUCOSE POCT, B Routine 03/01/2024 [...] POCT, B Routine 02/29/2024 5:15 PM CDT BACTERIAL CULTURE, AEROBIC + SUSC, RESP Routine 02/29/2024 12:37 PM CDT GRAM STAIN Routine 02/29/2024 12:[address] CHEST ANGIOGRAM AND PULMONARY ARTERIES WITH IV CONTRAST RAD - Routine (most inpatients and all outpatients) 02/29/2024 12:22 PM CDT RESPIRATORY PANEL, PCR, CHIEF ENGINEER WATERWORKS Routine 02/29/2024 9:12 AM CDT MRSA/STAPHYLOCOCCUS AUREUS, NASAL, BY PCR Routine 02/29/2024 8:05 AM CDT ADULT OXYGEN THERAPY Routine 02/29/2024 8:00 AM CDT INTERPRETATION OF OUTSIDE US VASCULAR RAD - Routine (most inpatients and all outpatients) 02/29/2024 6:05 AM CDT CBC WITHOUT DIFFERENTIAL, B Routine 02/29/2024 4:48 AM CDT BASIC METABOLIC PANEL, S/P Routine 02/29/2024 4:48 AM CDT GLUCOSE POCT, B Routine 02/28/2024 9:10 PM CDT ADULT OXYGEN THERAPY Routine 02/28/2024 8:00 PM CDT PATIENT STATUS, ABG STAT 02/28/2024 5 :45 PM CDT ABG W/O COOX STAT 02/28/2024 5:45 PM CDT ADULT OXYGEN THERAPY Routine 02/28/2024 4:25 PM CDT ADULT OXYGEN THERAPY Routine 02/28/2024 4:25 PM CDT PATIENT STATUS STAT 02/28/2024 3:30 PM CDT VENOUS BLOOD GAS W/O COOX STAT 02/28/2024 3:30 PM CDT CBC WITHOUT DIFFERENTIAL, B STAT 02/28/2024 3:29 PM CDT BASIC METABOLIC PANEL, S/P STAT 02/28/2024 3:29 PM CDT documented in this encounter Results * Phosphorus Inorganic (03/04/2024 3:27 AM CDT) [facility] Phosphorus (Inorganic), S 4.2 2.5 - 4.5 mg/dL 03/04/2024 4:21 AM CDT DTL Blood (Blood, Venous) 03/04/2024 3:27 AM CDT 03/04/2024 3:58 AM CDT Basil Miranda APRN, C.N.P. LAB BLOOD ADD-ON [facility] [address] [place] [address], [place] [facility] [place] [address] [place] [address] * (ABNORMAL) CBC without Differential (03/04/2024 3:27 AM CDT) Pathologist [facility] Hemoglobin 8.9(L) 13.2 - 16.6 g/dL 03/04/2024 [...] Paredes P.A.-C., M.S. [place] [address], [facility] [place] [place] [address] [place] [address] * (ABNORMAL) Basic Metabolic Panel (03/04/2024 3:27 AM CDT) Pathologist [facility] Potassium, S 4.5 3.6 - 5.2 mmol/L [...] LAB BLO OD ADD-ON Performing Organization Address City/[facility]/ZIP Co de Phone Number [facility] [address] [place] [address], [facility] [place] [place] [address] [place] [address] * Glucose, POCT (03/03/2024 8:48 PM CDT) Pathologist [facility] Glucose, POCT, B 91 70 - 140 mg/dL 03/03/2024 8:49 PM CDT PCLX Site ARTLINE 03/03/2024 8:49 PM CDT PCLX Last Intake ContTubFdg 03/03/2024 8:49 PM CDT PCLX Blood 03/03/2024 8:48 PM CDT 03/03/2024 8:49 PM CDT Unknown Provider LAB POCT ORDERABLES- MANUAL Performing Organization Address City/[facility]/ZIP Co de Phone Number POC [facility] [address] [place] [address], [facility] PCLX [facility] [address] [place] [address] * Glucose, POCT (03/03/2024 5:23 PM CDT) Glucose, POCT, B 93 70 - 140 mg/dL 03/03/2024 5:24 PM CDT PCLX Site ARTLINE 03/03/2024 5:24 PM CDT PCLX Last Intake ContTubFdg 03/03/2024 5:24 PM CDT PCLX Blood 03/03/2024 5:23 PM CDT 03/03/2024 5:25 PM CDT Unknown Provider LAB POCT ORDERABLES- MANUAL Performing Organization Address City/[facility]/ZIP Co de Phone Number POC [facility] [address] [place] [address], [place] PCLX [facility] POC [address] [place] [address] * Glucose, POCT (03/03/2024 12:23 PM CDT) Glucose, POCT, B 99 70 - 140 mg/dL 03/03/2024 12:24 PM CDT PCLX Site ARTLINE 03/03/2024 12:24 PM CDT PCLX Blood 03/03/2024 12:2 3 PM CDT 03/03/2024 12:25 PM CDT Unknown Provider LAB POCT ORDERABLES- MANUAL Performing Organization Address City/[facility]/ZIP Co de Phone Number POC [facility] [address] [place] [address], [place] PCLX [facility] POC [address] [place] [address] * Glucose, POCT (03/03/2024 7:38 AM CDT) Glucose, POCT, B 84 70 - 140 mg/dL 03/03/2024 7:39 AM CDT PCLX Site ARTLINE 03/03/2024 7:39 AM CDT PCLX Last Intake NPO 03/03/2024 7:39 AM CDT PCLX Blood 03/03/2024 7:38 AM CDT 03/03/2024 7:40 AM CDT Unknown Provider LAB POCT ORDERABLES- MANUAL Performing Organization Address City/[facility]/ZIP Co de Phone Number POC [facility] [address] [place] [address], [facility] PCLX [facility] [address] [place] [address] * (ABNORMAL) CBC without Differential (03/03/2024 4:03 AM CDT) Hemoglobin 9.3(L) 13.2 - 16.6 g/dL 03/03/2024 4:34 AM CDT DTL Hematocrit 26.9(L) 38.3 - 48.6 % 03/03/2024 4:34 AM CDT DTL Erythrocytes 2.68(L) 4.35 - 5.65 x10(12)/L 03/03/2024 4:34 AM CDT DTL MCV 100.4(H) 78.2 - 97.9 fL 03/03/2024 4:34 AM CDT DTL RBC Distrib Width 13.6 11.8 - 14.5 % 03/03/2024 4:34 AM CDT DTL Platelet Count 161 135 - 317 x10(9)/L 03/03/2024 4:34 AM CDT DTL Leukocytes 7.8 3.4 - 9.6 x10(9)/L 03/03/2024 4:34 AM CDT DTL Blood (Blood, Venous) 03/03/2024 4:03 AM CDT 03/03/2024 4:27 AM CDT Ivory Paredes P.A.-C. M.S. LAB BLO OD ADD-ON Performing Organization Address City/[facility]/ZIP Co de Phone Number [facility] [address] [place] [address], [facility] DTL [facility] [address] [place] [address] * (ABNORMAL) Basic Metabolic Panel (03/03/2024 4:03 AM CDT) Potassium, S 4.3 3.6 - 5.2 mmol/L 03/03/2024 5:03 AM CDT DTL Sodium, S 136 135 - 145 mmol/L 03/03/2024 5:03 AM CDT DTL Chloride, S 102 98 - 107 mmol/L 03/03/2024 5:03 AM CDT DTL Bicarbonate, S 23 22 - 29 mmol/L 03/03/2024 5:03 AM CDT DTL Anion Gap 11 7 - 15 03/03/2024 5:03 AM CDT DTL BUN (Blood Urea Nitrogen), S 12 8 - 24 mg/dL 03/03/2024 5:03 AM CDT DTL Creatinine 0.56(L) 0.74 - 1.35 mg/dL 03/03/2024 5:03 AM CDT DTL Estimated GFR (eGFR) >90 >=60 mL/min/BSA 03/03/2024 5:03 AM CDT DTL Comment: Estimated GFR calculated using the 2020 CKD_EPI creatinine equation. Calcium, Total, S 8.8 8.6 - 10.0 mg/dL 03/03/2024 5:03 AM CDT DTL Glucose, S 94 70 - 140 mg/dL 03/03/2024 5:03 AM CDT DTL Blood (Blood, Venous) 03/03/2024 4:03 AM CDT 03/03/2024 4:41 AM CDT Ivory Paredes P.A.-C., M.S. LAB BLO OD ADD-ON Performing Organization Address City/State/[facility] Co de Phone Number [facility] [address] [place] [address], [facility] [place] [place] [address] [place] [address] * Glucose, POCT (03/02/2024 9:59 PM CDT) Glucose, POCT, B 98 70 - 140 mg/dL 03/02/2024 10:00 PM CDT PCLX Blood 03/02/2024 9:59 PM CDT 03/02/2024 10:01 PM CDT Unknown Provider LAB POCT ORDERABLES- MANUAL Performing Organization Address City/State/[facility] Co de Phone Number POC [facility] [address] [place] [address], [facility] PCLX [facility] POC [address] [place] [address] * Patient Status (03/02/2024 5:15 PM CDT) FIO2 0.30 0.21=AIR 03/02/2024 5:1 8 PM CDT STMA Device Vent 03/02/2024 5:1 8 PM CDT STMA Blood 03/02/2024 5:15 PM CDT 03/02/2024 5:18 PM CDT Gardenia Gordillo APRN, C.N.P., M.S.N. LAB BLOOD NON ADD-ON Performing Organization Address [facility] Co de Phone Number [facility] [address] [place] [address], [facility] STMA [facility] [address] [place] [address] * Blood Gas without Coox, Arterial (03/02/2024 5:15 PM CDT) pO2 88 83 - 108 mm Hg [...] 5:15 PM CDT 03/02/2024 5:18 PM CDT Neel Donald APRNNAlexandra., M.S.N. LAB BLOOD NON ADD-ON [facility] [address] [place] [address], [facility] STMA [facility] [address] [place] [address] * Glucose, POCT (03/02/2024 5:13 PM CDT) Glucose, POCT, B 86 70 - 140 mg/dL 03/02/2024 5:41 PM CDT PCLX Site ARTLINE 03/02/2024 5:41 PM CDT PCLX Blood 03/02/2024 5:13 PM CDT 03/02/2024 5:42 PM CDT Unknown Provider LAB POCT ORDERABLES- MANUAL POC [facility] [address] [place] [address], [facility] PCLX [facility] POC [address] [place] [address] * DX Chest Portable Post PICC Placement [...] Posterior 1 View (03/02/2024 1:36 PM CDT) Anatomical Region Laterality Modality Abdomen, Abdominal RST [...] 12:50 PM CDT 03/02/2024 1:06 PM CDT Neel Donald APRNN.Thierry., M.S.N. LAB BLOOD NON ADD-ON [facility] [address] [place] [address], [place] [facility] Laboratories[facility] [address] [place] [address] * Glucose, POCT (03/02/2024 12:29 PM CDT) Glucose, POCT, B 111 70 - 140 mg/dL 03/02/2024 12:31 PM CDT PCLX Site ARTLINE 03/02/2024 12:31 PM CDT PCLX Last Intake ContTubFdg 03/02/2024 12:31 PM CDT PCLX Blood 03/02/2024 12:2 9 PM CDT 03/02/2024 12:31 PM CDT Unknown Provider LAB POCT ORDERABLES- MANUAL POC [facility] [address] [place] [address], [facility] PCLX [facility] POC [address] [place] [address] * Place peripherally inserted central catheter (PICC) (03/02/2024 11:59 AM CDT) Narrative MMODAL - 03/02/2024 11:59 AM CDT Elisa Chapman R.N. ? 03/02/2024 12:[address] peripherally inserted central catheter (PICC) Performed by: Elisa Chapman R.N. Authorized by: Tam Huang, Ralph., M.S. ?? Care team members present 1. [...] ?? Complications: no apparent complications Tam Huang P.A.-C. M.S. PROCE DURE/MINOR SURGICAL ORDERABLES MMODAL NA * (ABNORMAL) Levetiracetam Level (03/02/2024 11:18 AM CDT) Levetiracetam, S 134.2(H) 10.0 - 40.0 mcg/mL 03/03/2024 11:29 AM CDT [facility] Comment: ----ADDITIONAL INFORMATION---- This test was developed and its performance characteristics determined by [facility] in a manner consistent with CLIA requirements. This test has not been cleared or approved by the U.S. Food and Drug Administration. Blood (Blood, Arterial) 03/02/2024 11:18 AM CDT 03/02/2024 2:48 PM CDT Girish Donald APRN.NLuis Fernando, M.S.N. LAB BLOOD NON ADD-ON [facility] [address] [place] [address] [facility] [address] [place] [address] * Lamotrigine Level (03/02/2024 11:18 AM CDT) Lamotrigine, S 19.4 3.0 - 15.0 mcg/mL 03/03/2024 12:03 PM CDT [facility] Comment: ----ADDITIONAL INFORMATION---- This test was developed and its performance characteristics determined by [facility] in a manner consistent with CLIA requirements. This test has not been cleared or approved by the U.S. Food and Drug Administration. Blood (Blood, Arterial) 03/02/2024 11:18 AM CDT 03/02/2024 2:48 PM CDT Gardenia Gordillo APRN, C.N.P., M.S.N. LAB BLOOD NON ADD-ON [facility] [address] [place] [address] [facility] [address] [place] [address] * (ABNORMAL) Felbamate (Felbatol) Level (03/02/2024 11:18 AM CDT) Felbamate (Felbatol), S 246.2(H) 30.0 - 80.0 mcg/mL 03/03/2024 3:14 PM CDT [facility] Comment: ----ADDITIONAL INFORMATION---- This test was developed and its performance characteristics determined by [facility] in a manner consistent with CLIA requirements. This test has not been cleared or approved by the U.S. Food and Drug Administration. Blood (Blood, Arterial) 03/02/2024 11:18 AM CDT 03/02/2024 6:03 PM CDT Gardenia Gordillo APRN, C.N.P., M.S.N. LAB BLOOD NON ADD-ON [facility] [address] [place] [address] [facility] [address] [place] [address] * (ABNORMAL) CBC without Differential (03/02/2024 10:35 AM CDT) Hemoglobin 9.6(L) 13.2 - 16.6 g/dL 03/02/2024 10:49 AM CDT STMA Hematocrit 28.6(L) 38.3 - 48.6 % 03/02/2024 10:49 AM CDT STMA Erythrocytes 2.82(L) 4.35 - 5.65 x10(12)/L 03/02/2024 10:49 AM CDT STMA MCV 101.4(H) 78.2 - 97.9 fL 03/02/2024 10:49 AM CDT STMA RBC Distrib Width 13.7 11.8 - 14.5 % 03/02/2024 10:49 AM CDT STMA Platelet Count 134(L) 135 - 317 x10(9)/L 03/02/2024 10:49 AM CDT STMA Leukocytes 9.7(H) 3.4 - 9.6 x10(9)/L 03/02/2024 11:13 AM CDT [facility] Blood (Blood, Venous) 03/02/2024 10:35 AM CDT 03/02/2024 10:45 AM CDT Ivory Paredes P.A.-C., M.S. LAB BLO OD ADD-ON [facility] [address] [place] [address], [facility] ST[facility] [address] [place], [place] [id number] [place] [address] [address] [place] [address] * CT Head without IV Contrast (03/02/2024 [...] abnormality is evident. Tam Huang P.A.-C., M.S. IMG C T PROCEDURES * Glucose, POCT (03/02/2024 7:49 AM CDT) Glucose, POCT, B 93 70 - 140 mg/dL 03/02/2024 7:54 AM CDT PCLX Site Capillary 03/02/2024 7:54 AM CDT PCLX Last Intake ContTubFdg 03/02/2024 7:54 AM CDT PCLX Blood 03/02/2024 7:49 AM CDT 03/02/2024 7:54 AM CDT Unknown Provider LAB POCT ORDERABLES- MANUAL POC [facility] [address] [place] [address], [facility] PCLX [facility] POC [address] [place] [address] * Patient Status (03/02/2024 3:46 AM CDT) FIO2 0.35 0.21=AIR 03/02/2024 3:5 0 AM CDT ST[facility] Device Vent 03/02/2024 3:5 0 AM CDT ST[facility] Blood 03/02/2024 3:46 AM CDT 03/02/2024 3:50 AM CDT Ivory Paredes P.A.-C., M.S. LAB BLO OD NON ADD-ON Performing Organization Address City/[facility] Co de Phone Number [facility] [address] [place] [address] * (ABNORMAL) Blood Gas without Coox, Arterial (03/02/2024 3:46 AM CDT) pO2 127(H) 83 - 108 mm Hg 03/02/2024 3:54 AM CDT STMA pCO2 36 35 - 48 mm Hg 03/02/2024 3:54 AM CDT ST[facility] pH 7.47(H) 7.35 - 7.45 pH 03/02/2024 3:54 AM CDT ST[facility] Base Excess 2 -2 - 3 mmol/L 03/02/2024 3:54 AM CDT [facility] HCO3 26 22 - 26 mmol/L 03/02/2024 3:54 AM CDT [facility] Arterial Sample Site Art Line 03/02/2024 3:50 AM CDT [facility] Comment:Wilfredo's test not don e. Blood (Blood, Arterial Line) 03/02/2024 3:46 AM CDT 03/02/2024 3:50 AM CDT Ivory Paredes P.A.-C., M.S. LAB BLO OD NON ADD-ON Performing Organization Address City/[facility]/ZIP Co de Phone Number [facility] [address] [facility] [address] [address] * (ABNORMAL) Comprehensive Metabolic Panel (03/02/2024 3:46 AM CDT) [facility] Potassium, S 4.1 3.6 - 5.2 mmol/L [...] Gordillo APRN, C.N.P., M.S.N. LAB BLOOD ADD-ON [facility] [address] [place] [address], [facility] DTL [facility] [address] [place] [address] * (ABNORMAL) CBC without Differential (03/02/2024 3:46 AM CDT) Hemoglobin 8.9(L) 13.2 - 16.6 g/dL 03/02/2024 4:26 AM CDT DTL Hematocrit 26.9(L) 38.3 - 48.6 % 03/02/2024 4:26 AM CDT DTL Erythrocytes 2.66(L) 4.35 - 5.65 x10(12)/L 03/02/2024 4:26 AM CDT DTL MCV 101.1(H) 78.2 - 97.9 fL 03/02/2024 4:26 AM CDT DTL RBC Distrib Width 13.5 11.8 - 14.5 % 03/02/2024 4:26 AM CDT DTL Platelet Count 130(L) 135 - 317 x10(9)/L 03/02/2024 4:26 AM CDT DTL Leukocytes 8.2 3.4 - 9.6 x10(9)/L 03/02/2024 4:26 AM CDT DTL Blood (Blood, Venous) 03/02/2024 3:46 AM CDT 03/02/2024 4:21 AM CDT Gardenia Gordillo APRN, C.N.P., M.S.N. LAB BLOOD ADD-ON [facility] [address] [place] [address], [facility] DTL [facility] [address] [place] [address] * (ABNORMAL) Cystatin C with Estimated GFR (03/02/2024 3:42 AM CDT) [facility] eGFR by Cystatin C 76 >60 mL/min/BSA [...] AM CDT Wes Meng LAB BLOOD ADD-ON [address] [address], [address] [address] * Cell Count and Differential, Bronchoalveolar Lavage (03/02/2024 2:38 AM CDT) Pathologist [facility] Fluid Type BAL DEFAULT 03/02/2024 3:03 AM CDT [facility] Gross appearance Clear 03/02/20 24 3:03 AM CDT [facility] Total Nucleated Cells 10.8 x10(6) 03/02/2024 3:03 AM CDT [facility] Comment: ----REFERENCE VALUE---- The reference range and other method performance specifications have not been established for this body fluid. The test result must be integrated into the clinical context for interpretation. ----ADDITIONAL INFORMATION---- This test has been modified from the epic manager's instructions. Its performance characteristics were determined by [facility] in a manner consistent with CLIA requirements. This test has not been cleared or approved by the U.S. Food and Drug Administration. Volume Recovered 25 mL 03/02/20 3:03 AM T [facility] Alveolar Macrophage 15 % 03/02 4:08 AM CDT [facility] Comment: ----REFERENCE VALUE---- The reference range and other method performance specifications have not been established for this body fluid. The test result must be integrated into the clinical context for interpretation. Lymphocytes 3 % 03/02/2024 4:08 AM T [facility] Comment: ----REFERENCE VALUE---- The reference range and other method performance specifications have not been established for this body fluid. The test result must be integrated into the clinical context for interpretation. Neutrophils 76 % 03/02/2024 4:08 AM T [facility] Comment: ----REFERENCE VALUE---- The reference range and other method performance specifications have not been established for this body fluid. The test result must be integrated into the clinical context for interpretation. Other Cells 6 % 03/02/2024 4:08 AM T [facility] Comment: ----REFERENCE VALUE---- The reference range and other method performance specifications have not been established for this body fluid. The test result must be integrated into the clinical context for interpretation. Comment See Comment 03/02/2024 10:55 AM T [facility] Comment:Others are lining ce lls.Bacteria present. Fluid 03/02/2024 2:38 AM CDT 03/02/2024 2:38 AM CDT Ivory Paredes P.A.-C., M.S. LAB BOD Y FLUIDS AND STOOLS ORDERABLES [facility] [address] [place] [address], [facility] [address] [place] [address] * Legionella Antigen, Urine (03/02/2024 12:44 AM CDT) Legionella Ag, U Negative Negative 03/02/20 2:20 PM T [facility] Comment: Negative for L. pneumophila serogroup 1 [...] AM CDT Ivory Paredes P.A.-C. M.SMay LAB [facility] ROBIOLOGY - GENERAL ORDERABLES Performing Organization Address [facility] Co de Phone Number [facility] [address] [place] [address] [facility] [address] [place] [address] * Streptococcus pneumoniae Antigen, Urine (03/02/2024 12:44 AM CDT) [facility] Streptococcus pneumoniae Ag, U Negative Negative 03/02/2024 2:42 PM CDT [facility] Comment: Negative for pneumococcal pneumonia, suggesting no [...] AM CDT Ivory Paredes P.A.-C. M.SMay LAB [facility] ROBIOLOGY - GENERAL ORDERABLES Performing Organization Address [facility] Co de Phone Number [facility] [address] [place] [address] [facility] [address] [place] [id number] * DX Chest Portable 1 View (03/01/2024 11:18 PM CDT) Anatomical Region Laterality Modality Chest, [...] M.S. IMG QUITA GNOSTIC IMAGING PROCEDURES * DX Abdomen Portable Anterior Posterior 1 View (03/01/2024 11:18 PM CDT) Anatomical Region Laterality Modality Abdomen, Abdominal RST LOS, Abdominal ARZ LOS, Abdominal FLA LOS N/A Digital Radiography Impressions 03/02/2024 7:29 AM CDT Since 05/29/2022, slight interval increased gaseous distention and mild dilatation of small bowel loops in the central abdomen. Gas is visualized to the level of the distal descending colon, suggestive of a nonobstructive pattern. Patchy airspace opacities in the lower lungs. Narrative 03/02/2024 7:29 AM CDT EXAM: ??DX ABDOMEN PORTABLE ANTERIOR POSTERIOR 1 VIEW Procedure Note Shai Haile M.D. - 03/02/2024 EXAM: DX ABDOMEN PORTABLE ANTERIOR POSTERIOR 1 VIEW IMPRESSION: Since 05/29/2022, slight interval increased gaseous distention and milddilatation of small bowel loops in the central abdomen. Gas is visualizedto the level of the distal descending colon, suggestive of anonobstructive pattern. Patchy airspace opacities in the lower lungs. Ivory Paredes P.A.-C., M.S. IMG QUITA GNOSTIC IMAGING PROCEDURES * Patient Status (03/01/2024 11:08 PM CDT) [facility] FIO2 0.40 0.21=AIR 03/01/2024 11: 15 PM CDT STMA Device Vent 03/01/2024 11: 15 PM CDT STMA Blood 03/01/2024 11:0 8 PM CDT 03/01/2024 11:15 PM CDT Ivory Paredes P.A.-C., M.S. LAB BLO OD NON ADD-ON [facility] [address] [place] [address], [facility] [address] [place] [address] * (ABNORMAL) Blood Gas without Coox, Arterial (03/01/2024 11:08 PM CDT) [facility] pO2 73(L) 83 - 108 mm Hg 03/01/2024 11:17 PM CDT STMA pCO2 38 35 - 48 mm Hg 03/01/2024 11:17 PM CDT STMA pH 7.43 7.35 - 7.45 pH 03/01/2024 11:17 PM CDT STMA Base Excess 1 -2 - 3 mmol/L 03/01/2024 11:17 PM CDT STMA HCO3 25 22 - 26 mmol/L 03/01/2024 11:17 PM CDT STMA Arterial Sample Site Art Line 03/01/2024 11:15 PM CDT STMA Comment:Wilfredo's test not don e. Blood (Blood, Arterial) 03/01/2024 11:08 PM CDT 03/01/2024 11:15 PM CDT Carmela Baeza P.A.-C.SMay LAB BLO OD NON ADD-ON Performing Organization Address City/[facility]/ZIP Co de Phone Number [facility] [address] [place] [address], [facility] ST[facility] [address] [place] [address] * Cystatin C with Estimated GFR (03/01/2024 11:07 PM CDT) eGFR by Cystatin C 81 >60 mL/min/BSA 03/02/2024 12:00 AM CDT DTL Comment: Estimated GFR calculated [...] lower with the new assay. Cystatin C 1.02 0.63 - 1.03 mg/L 03/02/2024 12:00 AM CDT DTL Blood (Blood, Venous) 03/01/2024 11:07 PM CDT 03/01/2024 11:35 PM CDT Ivory Paredes P.A.-C. MMaySMay LAB BLO OD ADD-ON [facility] [address] [place] [address], [facility] DTL [facility] [address] [place] [address] * Invasive Line (03/01/2024 10:55 PM CDT) Narrative Gregorio Comer R.R.T., L.R.T. - 03/01/2024 10:55 PM CDT Gregorio Comer R.RRoberth., L.R.T. ? 03/01/2024 10:55 PM Invasive Line Performed by: Gregorio Comer R.R.TMay, L.R.T. Authorized by: Wes Person M.B.B.S. ?? [...] none Patient tolerance of procedure: successful Wes Megn PROCEDURE/MINOR RANDOLPH RGICAL ORDERABLES * AR BRONCHOSCOPY W ALVEOLAR LAVAGE (03/01/2024 10:30 PM CDT) Narrative Tam Brower M.D. - 03/01/2024 10:30 PM CDT Ivory Paredes P.A.-Neel, M.S. ? 03/01/2024 10:41 PM Bronchoscopy (Adult) Performed by: Ivory Paredes P.Armaan-CMay, M.S. Authorized by: Ivory Paredes P.A.-CMay, M.S. ?? Care team members present 1. [...] PHYLICIA participated or performed the procedure. The senior energy consultant participated in or was aware of the procedure. Ivory Paredes P.A.-C., M.SMay PROCEDU RE/MINOR SURGICAL ORDERABLES * AR INTUB W ETT, LDA ANE ENDOTRACHEAL AIRWAY (03/01/2024 10:00 PM CDT) Narrative Tam Brower M.D. - 03/01/2024 10:00 PM CDT Ivory Paredes P.A.-C., M.S. ? 03/01/2024 10:37 PM Intubation Performed by: Ivory Paredes P.A.-C., M.S. Authorized by: Ivory Paredes P.A.-C., M.S. ?? Care team members present 1. Tam Brower M.D. Patient location during procedure: ICU / PCU PROCEDURE DETAILS: Mask difficulty assessment: easy mask Final airway type: video laryngoscope Laryngeal Manipulation: no ?? Final best view of glottic structures - Cormack/Lehane Score: grade 2A ETT location: oral VL device: glide scope [place] scope blade size: 4 Tube size: 7.5 [...] PHYLICIA participated or performed the procedure. The senior energy consultant participated in or was aware of the procedure. Ivory Paredes P.A.-C., M.S. ANESTHE BANDAR ORDERABLES * Patient Status (03/01/2024 9:02 PM CDT) FIO2 0.28 0.21=AIR 03/01/2024 9:07 PM CDT STMA O2 Flow 8.0 L/min 03/01/2024 9:07 PM CDT STMA Device CFM 03/01/2024 9:07 PM CDT STMA Spont. breaths/min 25 03/01/2024 9:07 PM CDT STMA Blood 03/01/2024 9:02 PM CDT 03/01/2024 9:07 PM CDT Ivory Paredes P.A.-C. MMaySMay LAB BLO OD NON ADD-ON Performing Organization Address City/[facility]/ZIP Co de Phone Number [facility] [address] [place] [address], [facility] [address] [place] [address] * (ABNORMAL) Blood Gas without Coox, Venous (03/01/2024 9:02 PM CDT) pO2, Venous, B 40 Not applicable mm [...] BLO OD NON ADD-ON Performing Organization Address City/[facility]/ZIP Co de Phone Number [facility] [address] [place] [address], [facility] [address] [place] [address] * DX Chest Portable 1 View (03/01/2024 9:00 PM CDT) Anatomical Region Laterality Modality Chest, Thoracic RST LOS, Tho racic ARZ LOS, Thoracic FLA LOS N/A Digital Radiography Impressions 03/02/2024 8:41 AM CDT No significant change since earlier today. Low lung volumes. Diffuse bilateral airspace opacities throughout both lungs, concerning for infectious/inflammatory etiology. No pneumothorax or pleural effusion. Stable enlargement of the cardiac silhouette. Narrative 03/02/2024 8:41 AM CDT EXAM: ??DX CHEST PORTABLE 1 VIEW Procedure Note Meena Groves M.D. - 03/02/2024 EXAM: DX CHEST PORTABLE 1 VIEW IMPRESSION: No significant change since earlier today. Low lung volumes. Diffusebilateral airspace opacities throughout both lungs, concerning forinfectious/inflammatory etiology. No pneumothorax or pleural effusion.Stable enlargement of the cardiac silhouette. Ivory Paredes P.A.-C., M.S. IMG QUITA GNOSTIC IMAGING PROCEDURES * (ABNORMAL) pH (03/01/2024 8:59 PM CDT) Pathologist [facility] pH 7.29(L) 7.35 - 7.45 pH 03/01/2024 9:10 PM CDT STMA Blood 03/01/2024 8:59 PM CDT 03/01/2024 9:07 PM CDT Ivory Paredes P.A.-C., M.S. LAB HIS TORICAL ORDERS [facility] [address] [place] [address], [facility] STMA [facility] [address] [place] [address] * Type and Screen (with Reflex Antibody ID) (03/01/2024 8:59 PM CDT) Pathologist [facility] ABORh O Pos Not applicable 03/01/2024 9:30 PM CDT STRM Antibody Screen Negative Negative 03/01/2024 9:49 PM CDT STRM Type & Screen Expiration 03/04/2024 23:59 03/01/2024 9:30 PM CDT STRM Testing Location [place] DEFAULT 03/01/2024 9:09 PM CDT STRM Blood (Blood, Venous) 03/01/2024 8:59 PM CDT 03/01/2024 9:09 PM CDT Ivory Paredes P.A.-C., M.S. LAB BLO OD BANK TEST ORDERABLES Performing Organization Address [facility] Co de Phone Number [facility] [address] [place] [address], [facility] [address] [place] [address] * (ABNORMAL) Hepatic Function Panel (03/01/2024 8:59 PM CDT) Bilirubin, Total, S 0.3 0.0 - 1.2 [...] LAB BLO OD ADD-ON Performing Organization Address City/[facility]/ZIP Co de Phone Number [facility] [address] [place], [place] [address] [place] [address] [place] [address] * Lactate (03/01/2024 8:59 PM CDT) Lactate, P 1.4 0.5 - 2.2 mmol/L 03/01/2024 9:22 PM CDT STMA Blood (Blood, Venous) 03/01/2024 8:59 PM CDT 03/01/2024 9:07 PM CDT Ivory Paredes P.A.-C., M.S. LAB BLO OD NON ADD-ON Performing Organization Address City/[facility]/ZIP Co de Phone Number [facility] [address] [place] [address], [facility] [address] [place] [address] * Calcium, Ionized (03/01/2024 8:59 PM CDT) [facility] Calcium, Ionized, B 5.17 4.65 - 5.30 mg/dL 03/01/2024 9:10 PM CDT [facility] Blood (Blood, Venous) 03/01/2024 8:59 PM CDT 03/01/2024 9:07 PM CDT Ivory Paredes P.A.-C., M.S. LAB BLO OD NON ADD-ON [facility] [address] [place] [address], [facility] [address] [place] [address] * Phosphorus Inorganic (03/01/2024 8:59 PM CDT) Pathologist [facility] Phosphorus (Inorganic), S 3.0 2.5 - 4.5 mg/dL 03/01/2024 10:19 PM CDT DTL Blood (Blood, Venous) 03/01/2024 8:59 PM CDT 03/01/2024 9:43 PM CDT Ivory Paredes P.A.-C., MMaySMay LAB BLO OD ADD-ON [facility] [address] [place] [address] * Magnesium (03/01/2024 8:59 PM CDT) Pathologist [facility] Magnesium, S 1.8 1.7 - 2.3 mg/dL 03/01/2024 10:19 PM CDT DTL Blood (Blood, Venous) 03/01/2024 8:59 PM CDT 03/01/2024 9:43 PM CDT Ivory Paredes P.A.-C., MMaySMay LAB BLO OD ADD-ON Performing Organization Address City/[facility] Co de Phone Number [facility] [address] [place] [address] * (ABNORMAL) Basic Metabolic Panel (03/01/2024 8:59 PM CDT) [facility] Potassium, P 4.5 3.6 - 5.2 mmol/L 03/01/2024 9:25 PM CDT STMA Sodium, P 134(L) 135 - 145 mmol/L 03/01/2024 9:25 PM CDT STMA Chloride, P 98 98 - 107 mmol/L 03/01/2024 9:25 PM CDT STMA Bicarbonate, P 26 22 - 29 mmol/L 03/01/2024 9:25 PM CDT STMA Anion Gap, P 10 7 - 15 03/01/2024 9:25 PM CDT STMA BUN (Blood Urea Nitrogen), P 7(L) 8 - 24 mg/dL 03/01/2024 9:25 PM CDT STMA Creatinine 0.54(L) 0.74 - 1.35 mg/dL 03/01/2024 9:25 PM CDT STMA Estimated GFR (eGFR) >90 >=60 mL/min/BSA 03/01/2024 9:25 PM CDT STMA Comment: Estimated GFR calculated using the 2020 CKD_EPI creatinine equation. Calcium, Total, P 9.1 8.6 - 10.0 mg/dL 03/01/2024 9:25 PM CDT STMA Glucose, P 103 70 - 140 mg/dL 03/01/2024 9:25 PM CDT STMA Blood (Blood, Venous) 03/01/2024 8:59 PM CDT 03/01/2024 9:07 PM CDT Ivory Paredes P.A.-C., M.S. LAB BLO OD ADD-ON [facility] [address] [place] [address], [facility] [address] [place] [address] * (ABNORMAL) CBC without Differential (03/01/2024 8:59 PM CDT) [facility] Hemoglobin 9.9(L) 13.2 - 16.6 g/dL 03/01/2024 9:14 PM CDT STMA Hematocrit 31.0(L) 38.3 - 48.6 % 03/01/2024 9:14 PM CDT STMA Erythrocytes 2.99(L) 4.35 - 5.65 x10(12)/L 03/01/2024 9:14 PM CDT STMA MCV 103.7(H) 78.2 - 97.9 fL 03/01/2024 9:14 PM CDT STMA RBC Distrib Width 13.8 11.8 - 14.5 % 03/01/2024 9:14 PM CDT STMA Platelet Count 116(L) 135 - 317 x10(9)/L 03/01/2024 9:14 PM CDT STMA Leukocytes 8.8 3.4 - 9.6 x10(9)/L 03/01/2024 10:01 PM CDT [facility] Blood (Blood, Venous) 03/01/2024 8:59 PM CDT 03/01/2024 9:07 PM CDT Ivory Paredes P.A.-C. MMayS. LAB BLO OD ADD-ON [facility] [address] [place] [address], [place] STMA [facility] [address] [place] [address] DHPM [facility] [address] [place] [address] * Glucose, POCT (03/01/2024 8:53 PM CDT) Glucose, POCT, B 97 70 - 140 mg/dL 03/01/2024 8:56 PM CDT PCLX Site Capillary 03/01/2024 8:56 PM CDT PCLX Blood 03/01/2024 8:53 PM CDT 03/01/2024 8:57 PM CDT Unknown Provider LAB POCT ORDERABLES- MANUAL Performing Organization Address City/[facility]/ZIP Co de Phone Number POC [facility] [address] [place] [address], [place] PCLX [facility] POC [address] [place] [address] * Glucose, POCT (03/01/2024 5:12 PM CDT) Glucose, POCT, B 79 70 - 140 mg/dL 03/01/2024 5:14 PM CDT PCLX Site Capillary 03/01/2024 5:14 PM CDT PCLX Last Intake ContTubFdg 03/01/2024 5:14 PM CDT PCLX Blood 03/01/2024 5:12 PM CDT 03/01/2024 5:14 PM CDT Unknown Provider LAB POCT ORDERABLES- MANUAL Performing Organization Address City/[facility]/ZIP Co de Phone Number POC [facility] [address] [place] [address], [place] PCLX [facility] POC [address] [place] [address] * Lactate (03/01/2024 2:05 PM CDT) Lactate, P 1.4 0.5 - 2.2 mmol/L 03/01/2024 2:24 PM CDT STMA Blood (Blood, Venous) 03/01/2024 2:05 PM CDT 03/01/2024 2:10 PM CDT Gardenia Gordillo APRN, C.N.P., M.S.N. LAB BLOOD NON ADD-ON [facility] [address] [place] [address], [facility] [address] [place] [address] * (TTE) 2D ECHO DOPPLER COLOR AND CONTRAST (03/01/2024 12:44 PM CDT) [facility] Ejection Fraction 66 MC CV EIMS [...] P.A.-C., M.S. CV EC HO PROCEDURES * Glucose, POCT (03/01/2024 11:57 AM CDT) Glucose, POCT, B 85 70 - 140 mg/dL 03/01/2024 11:59 AM CDT PCLX Site Capillary 03/01/2024 11:59 AM CDT PCLX Last Intake ContTubFdg 03/01/2024 11:59 AM CDT PCLX Blood 03/01/2024 11:5 7 AM CDT 03/01/2024 11:59 AM CDT Unknown Provider LAB POCT ORDERABLES- MANUAL POC [facility] [address] [place] [address], [facility] PCLX [facility] POC [address] [place] [address] * DX Chest Portable 1 View (03/01/2024 9:56 AM CDT) Anatomical Region Laterality Modality Chest, Thoracic RST LOS, Tho racic ARZ LOS, Thoracic FLA LOS N/A Digital Radiography Impressions 03/01/2024 10:11 AM CDT New significant bilateral alveolar and interstitial airspace opacities throughout both lungs since 02/28/2024 in keeping with diffuse pneumonia. No obvious pleural effusions. No pneumothorax. Cardiac silhouette obscured. Narrative 03/01/2024 10:11 AM CDT EXAM: ??DX CHEST PORTABLE 1 VIEW Procedure Note Andrés West M.D. - 03/01/2024 EXAM: DX CHEST PORTABLE 1 VIEW IMPRESSION: New significant bilateral alveolar and interstitial airspace opacitiesthroughout both lungs since 02/28/2024 in keeping with diffuse pneumonia.No obvious pleural effusions. No pneumothorax. Cardiac silhouetteobscured. Gardenia Gordillo APRN, C.N.P., M.S.N. IMG DIAGNOSTIC IMAGING PROCEDURES * Patient Status (03/01/2024 9:51 AM CDT) FIO2 0.28 0.21=AIR 03/01/2024 9:56 AM CDT STMA Device CFM 03/01/2024 9:56 AM CDT STMA Spont. breaths/min 16 03/01/2024 9:56 AM CDT STMA Blood 03/01/2024 9:51 AM CDT 03/01/2024 9:56 AM CDT Girish Donald APRN.N.P., M.S.N. LAB BLOOD NON ADD-ON [facility] [address] [place] [address], [facility] STMA [facility] [address] [place] [address] * (ABNORMAL) Blood Gas without Coox, Arterial (03/01/2024 9:51 AM CDT) pO2 94 83 - 108 mm Hg 03/01/2024 9:59 AM CDT STMA pCO2 53(H) 35 - 48 mm Hg 03/01/2024 9:59 AM CDT STMA pH 7.33(L) 7.35 - 7.45 pH 03/01/2024 9:59 AM CDT STMA Base Excess 2 -2 - 3 mmol/L 03/01/2024 9:59 AM CDT STMA HCO3 28(H) 22 - 26 mmol/L 03/01/2024 9:59 AM CDT STMA Arterial Sample Site L-Radial 03/01/2024 9:56 AM CDT STMA Comment:Wilfredo's test not don e. Blood (Blood, Arterial) 03/01/2024 9:51 AM CDT 03/01/2024 9:56 AM CDT Girish Donald APRN.N.P., M.S.N. LAB BLOOD NON ADD-ON [facility] [address] [place] [address], [facility] STMA [facility] [address] [place] [address] [place] [address] * Glucose, POCT (03/01/2024 9:06 AM CDT) [facility] Glucose, POCT, B 81 70 - 140 mg/dL 03/01/2024 9:08 AM CDT PCLX Site Capillary 03/01/2024 9:08 AM CDT PCLX Blood 03/01/2024 9:06 AM CDT 03/01/2024 9:08 AM CDT Unknown Provider LAB POCT ORDERABLES- MANUAL POC [facility] [address] [place] [address], [facility] PCL[facility] POC [address] [place] [address] * (ABNORMAL) CBC without Differential (03/01/2024 4:33 AM CDT) [facility] Hemoglobin 10.8(L) 13.2 - 16.6 g/dL 03/01/2024 5:22 AM CDT DTL Hematocrit 32.1(L) 38.3 - 48.6 % 03/01/2024 5:22 AM CDT DTL Erythrocytes 3.13(L) 4.35 - 5.65 x10(12)/L 03/01/2024 5:22 AM CDT DTL MCV 102.6(H) 78.2 - 97.9 fL 03/01/2024 5:22 AM CDT DTL RBC Distrib Width 13.6 11.8 - 14.5 % 03/01/2024 5:22 AM CDT DTL Platelet Count 130(L) 135 - 317 x10(9)/L 03/01/2024 5:22 AM CDT DTL Leukocytes 12.4(H) 3.4 - 9.6 x10(9)/L 03/01/2024 5:22 AM CDT DTL Blood (Blood, Venous) 03/01/2024 4:33 AM CDT 03/01/2024 5:14 AM CDT Neel Love APRNNLuis Fernando, D.N.P. LAB BLOOD ADD-ON [facility] [address] [place] [address], [facility] DTL [facility] [address] [place] [address] * (ABNORMAL) Basic Metabolic Panel (03/01/2024 4:33 AM CDT) [facility] Potassium, S 4.7 3.6 - 5.2 mmol/L 03/01/2024 5:46 AM CDT DTL Sodium, S 135 135 - 145 mmol/L 03/01/2024 5:46 AM CDT DTL Chloride, S 99 98 - 107 mmol/L 03/01/2024 5:46 AM CDT DTL Bicarbonate, S 26 22 - 29 mmol/L 03/01/2024 5:46 AM CDT DTL Anion Gap 10 7 - 15 03/01/2024 5:46 AM CDT DTL BUN (Blood Urea Nitrogen), S 4(L) 8 - 24 mg/dL 03/01/2024 5:46 AM CDT DTL Creatinine 0.39(L) 0.74 - 1.35 mg/dL 03/01/2024 5:46 AM CDT DTL Estimated GFR (eGFR) >90 >=60 mL/min/BSA 03/01/2024 5:46 AM CDT DTL Comment: Estimated GFR calculated using the 2020 CKD_EPI creatinine equation. Calcium, Total, S 8.4(L) 8.6 - 10.0 mg/dL 03/01/2024 5:46 AM CDT DTL Glucose, S 87 70 - 140 mg/dL 03/01/2024 5:46 AM CDT DTL Blood (Blood, Venous) 03/01/2024 4:33 AM CDT 03/01/2024 5:30 AM CDT Neel Love APRNNAlexandra., D.N.P. LAB BLOOD ADD-ON [facility] [address] [place] [address], [facility] DTL [facility] [address] [place] [address] * Glucose, POCT (03/01/2024 12:15 AM CDT) Glucose, POCT, B 99 70 - 140 mg/dL 03/01/2024 12:17 AM CDT PCLX Site Capillary 03/01/2024 12:17 AM CDT PCLX Blood 03/01/2024 12:1 5 AM CDT 03/01/2024 12:17 AM CDT Unknown Provider LAB POCT ORDERABLES- MANUAL [facility] [address] [place] [address], [place] PCLX [facility] POC [address] [place] [address] * Glucose, POCT (02/29/2024 10:56 PM CDT) Glucose, POCT, B 85 70 - 140 mg/dL 02/29/2024 10:58 PM CDT PCLX Site Capillary 02/29/2024 10:58 PM CDT PCLX Blood 02/29/2024 10:5 6 PM CDT 02/29/2024 10:58 PM CDT Unknown Provider LAB POCT ORDERABLES- MANUAL [facility] [address] [place] [address], [facility] P[facility] POC [address] [place] [address] * Glucose, POCT (02/29/2024 10:28 PM CDT) Glucose, POCT, B 84 70 - 140 mg/dL 02/29/2024 10:29 PM CDT PCLX Site Capillary 02/29/2024 10:29 PM CDT PCLX Blood 02/29/2024 10:2 8 PM CDT 02/29/2024 10:29 PM CDT Unknown Provider LAB POCT ORDERABLES- MANUAL Performing Organization Address City/[facility]/ZIP Co de Phone Number POC [facility] [address] [place] [address], [facility] PCL[facility] POC [address] [place] [address] * Glucose, POCT (02/29/2024 9:40 PM CDT) Glucose, POCT, B 112 70 - 140 mg/dL 02/29/2024 9:42 PM CDT PCLX Site Capillary 02/29/2024 9:42 PM CDT PCLX Blood 02/29/2024 9:40 PM CDT 02/29/2024 9:42 PM CDT Unknown Provider LAB POCT ORDERABLES- MANUAL Performing Organization Address [facility] Co de Phone Number POC [facility] [address] [place] [address], [facility] PCL[facility] POC [address] [place] [address] * (ABNORMAL) Glucose, POCT (02/29/2024 9:11 PM CDT) Glucose, POCT, B 60(L) 70 - 140 mg/dL 02/29/2024 9:14 PM CDT PCLX Site Capillary 02/29/2024 9:14 PM CDT PCLX Blood 02/29/2024 9:11 PM CDT 02/29/2024 9:14 PM CDT Unknown Provider LAB POCT ORDERABLES- MANUAL Performing Organization Address City/[facility]/ZIP Co de Phone Number POC [facility] [address] [place] [address], [facility] P[facility] POC [address] [place] [address] * Glucose, POCT (02/29/2024 6:50 PM CDT) Glucose, POCT, B 98 70 - 140 mg/dL 03/01/2024 3:25 PM CDT PCLX Site Capillary 03/01/2024 3:25 PM CDT PCLX Blood 02/29/2024 6:50 PM CDT 03/01/2024 3:25 PM CDT Unknown Provider LAB POCT ORDERABLES- MANUAL Performing Organization Address City/[facility]/ZIP Co de Phone Number POC [facility] [address] [place] [address], [place] PCLX [facility] POC [address] [place] [address] * Glucose, POCT (02/29/2024 6:28 PM CDT) Glucose, POCT, B 72 70 - 140 mg/dL 03/01/2024 3:25 PM CDT PCLX Site Capillary 03/01/2024 3:25 PM CDT PCLX Blood 02/29/2024 6:28 PM CDT 03/01/2024 3:25 PM CDT Unknown Provider LAB POCT ORDERABLES- MANUAL Performing Organization Address [facility]/ZIP Co de Phone Number POC [facility] [address] [place] [address], [facility] PCL[facility] POC [address] [place] [address] * (ABNORMAL) Glucose, POCT (02/29/2024 5:56 PM CDT) Glucose, POCT, B 64(L) 70 - 140 mg/dL 03/01/2024 3:25 PM CDT PCLX Site Capillary 03/01/2024 3:25 PM CDT PCLX Blood 02/29/2024 5:56 PM CDT 03/01/2024 3:25 PM CDT Unknown Provider LAB POCT ORDERABLES- MANUAL Performing Organization Address City/[facility]/ZIP Co de Phone Number POC [facility] [address] [place] [address], [place] PCLX [facility] POC [address] [place] [address] * (ABNORMAL) Glucose, POCT (02/29/2024 5:39 PM CDT) Glucose, POCT, B 60(L) 70 - 140 mg/dL 03/01/2024 3:25 PM CDT PCLX Site Capillary 03/01/2024 3:25 PM CDT PCLX Last Intake NPO 03/01/2024 3:25 PM CDT PCLX Blood 02/29/2024 5:39 PM CDT 03/01/2024 3:25 PM CDT Unknown Provider LAB POCT ORDERABLES- MANUAL POC [facility] [address] [place] [address], [facility] P[facility] POC [address] [place] [address] * (ABNORMAL) Glucose, POCT (02/29/2024 5:15 PM CDT) Glucose, POCT, B 50(L) 70 - 140 mg/dL 02/29/2024 5:17 PM CDT PCLX Site Capillary 02/29/2024 5:17 PM CDT PCLX Last Intake NPO 02/29/2024 5:17 PM CDT PCLX Blood 02/29/2024 5:15 PM CDT 02/29/2024 5:18 PM CDT Unknown Provider LAB POCT ORDERABLES- MANUAL Performing Organization Address City/[facility]/ZIP Co de Phone Number POC [facility] [address] [place] [address], [facility] P[facility] POC [address] [place] [address] * Gram Stain (02/29/2024 12:37 PM CDT) Gram Stain No organisms seen. White blood cells, Many. Epithelial cells, Moderate. 02/29/2024 2:53 PM CDT DTL Tracheal Secretions 02/29/2024 12:37 PM CDT 02/29/2024 1:41 PM CDT Comment:Specimen Source Site : Sputum Girish Love APRN.N.P., D.N.P. LAB MICROBIOLOGY - GENERAL ORDERABLES [facility] [address] [place] [address], [place] [facility] [address] [place] [address] * CT Chest Angiogram and Pulmonary Arteries [...] osseous lesion. Procedure Note Flynn Shaffer M.B.B.S., M.Keren. - 02/29/2024 EXAM: CT CHEST ANGIOGRAM AND [...] with multifocal pneumonia or aspirationpneumonia. Erasmo Lloyd APRN C.N.P., BradleyN.P. [facility] [place] * Respiratory Panel, PCR, Nasopharyngeal [...] using the FDA-Cleared FilmArray Respiratory Panel 2.1 (Open [facility]). Swab (Nasopharynx) 02/29/2024 9:12 AM CDT 02/29/2024 9:12 AM CDT Girish Love APRN.N.P., D.N.P. LAB MICROBIOLOGY - GENERAL ORDERABLES Performing Organization Address City/[facility]/ZIP Co de Phone Number [facility] [address] DTL [address] [place] [address] * Staph aureus / MRSA, Nasal, PCR (02/29/2024 8:05 AM CDT) Staphylococcus aureus, PCR Negative Negative 02/29/2024 11:46 AM CDT DTL MRSA, PCR Negative Negative 02/29/2024 11:46 AM CDT DTL Swab (Nares) 02/29/2024 8:05 AM CDT 02/29/2024 9:12 AM CDT Girish Love APRN.N.P., D.N.P. LAB MICROBIOLOGY - GENERAL ORDERABLES [facility] [address] [facility] [place] [address] [place] [address] * Interpretation of Outside [place] Vascular (02/29/2024 6:05 AM CDT) Anatomical Region Laterality Modality Ultrasound RST LOS, Ultrasou nd ARZ LOS, Ultrasound FLA LOS, Procedural, Other, Vascular N/A Ultrasound Impressions 02/29/2024 10:22 AM CDT Positive for acute DVT in the mid to lower femoral vein through popliteal vein. Result discussed with BETO Nguyen ([id number]) by Dr. Schulte on 02/29/2024 at 0950 hours. Narrative 02/29/2024 10:22 AM CDT EXAM: ??INTERPRETATION OF OUTSIDE US VASCULAR. Bilateral lower extremity venous ultrasound performed on 02/28/2024 at outside facility. Interpretation provided without the benefit of real-time scanning or discussion with the gymnastics instructor. COMPARISON: ??None FINDINGS: ?? RIGHT: The common [...] benefit of real-time scanning ordiscussion with the gymnastics instructor. COMPARISON: None FINDINGS: RIGHT: The common femoral, [...] through poplitealvein. Result discussed with BETO Nguyen ([id number]) by Dr. Schulte on02/29/2024 at 0950 hours. Neel Love APRNNLuis Fernando, Keren.N.P. IMG US PROCEDURES * (ABNORMAL) Basic Metabolic Panel (02/29/2024 4:48 AM CDT) Pathologist [facility] Potassium, S 4.9 3.6 - 5.2 mmol/L 02/29/2024 6:21 AM CDT DTL Sodium, S 132(L) 135 - 145 mmol/L 02/29/2024 6:21 AM CDT DTL Chloride, S 98 98 - 107 mmol/L 02/29/2024 6:21 AM CDT DTL Bicarbonate, S 24 22 - 29 mmol/L 02/29/2024 6:21 AM CDT DTL Anion Gap 10 7 - 15 02/29/2024 6:21 AM CDT DTL BUN (Blood Urea Nitrogen), S 6(L) 8 - 24 mg/dL 02/29/2024 6:21 AM CDT DTL Creatinine 0.40(L) 0.74 - 1.35 mg/dL 02/29/2024 6:21 AM CDT DTL Estimated GFR (eGFR) >90 >=60 mL/min/BSA 02/29/2024 6:21 AM CDT DTL Comment: Estimated GFR calculated using the 2020 CKD_EPI creatinine equation. Calcium, Total, S 7.9(L) 8.6 - 10.0 mg/dL 02/29/2024 6:21 AM CDT DTL Glucose, S 72 70 - 140 mg/dL 02/29/2024 6:21 AM CDT DTL Blood (Blood, Venous) 02/29/2024 4:48 AM CDT 02/29/2024 6:03 AM CDT Girish Love APRN.N.PMay, D.N.P. LAB BLOOD ADD-ON [facility] [address] [place] [address], [facility] [place] [address] [place] [address] * (ABNORMAL) CBC without Differential (02/29/2024 4:48 AM CDT) Pathologist [facility] Hemoglobin 10.6(L) 13.2 - 16.6 g/dL 02/29/2024 6:00 AM CDT DTL Hematocrit 31.5(L) 38.3 - 48.6 % 02/29/2024 6:00 AM CDT DTL Erythrocytes 3.08(L) 4.35 - 5.65 x10(12)/L 02/29/2024 6:00 AM CDT DTL MCV 102.3(H) 78.2 - 97.9 fL 02/29/2024 6:00 AM CDT DTL RBC Distrib Width 13.3 11.8 - 14.5 % 02/29/2024 6:00 AM CDT DTL Platelet Count 128(L) 135 - 317 x10(9)/L 02/29/2024 6:00 AM CDT DTL Leukocytes 5.8 3.4 - 9.6 x10(9)/L 02/29/2024 6:00 AM CDT DTL Blood (Blood, Venous) 02/29/2024 4:48 AM CDT 02/29/2024 5:46 AM CDT Girish Love APRN.N.P., D.N.P. LAB BLOOD ADD-ON [facility] [address] [place] [address], [facility] [place] [address] [place] [address] * Glucose, POCT (02/28/2024 9:10 PM CDT) Pathologist [facility] Glucose, POCT, B 87 70 - 140 mg/dL 02/28/2024 9:11 PM CDT PCLX Site Capillary 02/28/2024 9:11 PM CDT PCLX Blood 02/28/2024 9:10 PM CDT 02/28/2024 9:11 PM CDT Unknown Provider LAB POCT ORDERABLES- MANUAL POC [facility] [address] [place] [address], [facility] P[facility] [address] [place] [address] * Patient Status (02/28/2024 5:45 PM CDT) O2 Flow 7.0 L/min 02/28/2024 5:50 PM CDT STMA Device CFM 02/28/2024 5:50 PM CDT STMA Spont. breaths/min 14 02/28/2024 5:50 PM CDT STMA Blood 02/28/2024 5:45 PM CDT 02/28/2024 5:50 PM CDT Erasmo Lloyd APRN C.N.P., D.N.P. LAB BLOOD NON ADD-ON [facility] [address] [place] [address], [facility] ST[facility] [address] [place] [address] * (ABNORMAL) Blood Gas without Coox, Arterial (02/28/2024 5:45 PM CDT) pO2 77(L) 83 - 108 mm Hg 02/28/2024 6:00 PM CDT STMA pCO2 45 35 - 48 mm Hg 02/28/2024 6:00 PM CDT STMA pH 7.34(L) 7.35 - 7.45 pH 02/28/2024 6:00 PM CDT STMA Base Excess -2 -2 - 3 mmol/L 02/28/2024 6:00 PM CDT STMA HCO3 23 22 - 26 mmol/L 02/28/2024 6:00 PM CDT STMA Arterial Sample Site R-Radial 02/28/2024 5:50 PM CDT STMA Comment:Wilfredo's test not don e. Blood (Blood, Arterial Line) 02/28/2024 5:45 PM CDT 02/28/2024 5:50 PM CDT Neel Love APRNN.P., D.N.P. LAB BLOOD NON ADD-ON [facility] [address] [place] [address], [facility] [address] [place] [address] * Patient Status (02/28/2024 3:30 PM CDT) Pathologist [facility] FIO2 0.40 0.21=AIR 02/28/2024 3:35 PM CDT STMA Device CFM 02/28/2024 3:35 PM CDT STMA Spont. breaths/min 13 02/28/2024 3:35 PM CDT STMA Blood 02/28/2024 3:30 PM CDT 02/28/2024 3:35 PM CDT Neel Love APRNN.P., D.N.P. LAB BLOOD NON ADD-ON [facility] [address] [place] [address], [facility] [address] [place] [address] * (ABNORMAL) Blood Gas without Coox, Venous (02/28/2024 3:30 PM CDT) pO2, Venous, B 26 Not applicable mm Hg 02/28/2024 3:40 PM CDT STMA pCO2, Venous, B 62(H) 41 - 51 mm Hg 02/28/2024 3:40 PM CDT STMA pH, Venous, B 7.27(L) 7.32 - 7.43 pH 024 3:40 PM CDT STMA Base Excess, Venous, B 2 Not applicable mmol/L 02/28/2024 3:40 PM CDT STMA HCO3, Venous, B 28 Not applicable mmol/L 02/28/2024 3:40 PM CDT STMA Sample Site, Venous, B Venipunct 02/28/2024 3:35 PM CDT STMA Blood (Blood, Venous) 02/28/2024 3:30 PM CDT 02/28/2024 3:35 PM CDT Erasmo Lloyd APRN C.N.P., D.N.P. LAB BLOOD NON ADD-ON [facility] [address] [place] [address], [facility] ST[facility] [address] [place] [address] * (ABNORMAL) CBC without Differential (02/28/2024 3:29 PM CDT) Hemoglobin 12.0(L) 13.2 - 16.6 g/dL 02/28/2024 3:44 PM CDT STMA Hematocrit 35.0(L) 38.3 - 48.6 % 02/28/2024 3:44 PM CDT STMA Erythrocytes 3.51(L) 4.35 - 5.65 x10(12)/L 02/28/2024 3:44 PM CDT STMA MCV 99.7(H) 78.2 - 97.9 fL 02/28/2024 3:44 PM CDT STMA RBC Distrib Width 13.0 11.8 - 14.5 % 02/28/2024 3:44 PM CDT STMA Platelet Count 119(L) 135 - 317 x10(9)/L 02/28/2024 3:44 PM CDT STMA Leukocytes 2.3(L) 3.4 - 9.6 x10(9)/L 02/28/2024 3:44 PM CDT STMA Blood (Blood, Venous) 02/28/2024 3:29 PM CDT 02/28/2024 3:36 PM CDT Erasmo Lloyd APRN C.N.P., D.N.P. LAB BLOOD ADD-ON [facility] [address] [place] [address], [facility] [address] [place] [address] * (ABNORMAL) Basic Metabolic Panel (02/28/2024 3:29 PM CDT) Pathologist [facility] Potassium, P 4.2 3.6 - 5.2 mmol/L 02/28/2024 4:10 PM CDT STMA Sodium, P 131(L) 135 - 145 mmol/L 02/28/2024 4:10 PM CDT STMA Chloride, P 94(L) 98 - 107 mmol/L 02/28/2024 4:10 PM CDT STMA Bicarbonate, P 22 22 - 29 mmol/L 02/28/2024 4:10 PM CDT STMA Anion Gap, P 15 7 - 15 02/28/2024 4:10 PM CDT STMA BUN (Blood Urea Nitrogen), P 8 8 - 24 mg/dL 02/28/2024 4:10 PM CDT STMA Creatinine 0.32(L) 0.74 - 1.35 mg/dL 02/28/2024 4:10 PM CDT STMA Estimated GFR (eGFR) >90 >=60 mL/min/BSA 02/28/2024 4:10 PM CDT STMA Comment: Estimated GFR calculated using the 2020 CKD_EPI creatinine equation. Calcium, Total, P 8.4(L) 8.6 - 10.0 mg/dL 02/28/2024 4:10 PM CDT STMA Glucose, P 87 70 - 140 mg/dL 02/28/2024 4:10 PM CDT STMA Blood (Blood, Venous) 02/28/2024 3:29 PM CDT 02/28/2024 3:36 PM CDT Neel Love APRNNAlexandra., D.N.P. 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) documented in this encounter Admitting Diagnoses Diagnosis Acute Respiratory Failure With Hypoxia (HCC) documented in this encounter Administered Medications Active Administered Medications - up to 3 most recent administrations Medication Order MAR Action Action Date Dose Rate Site acetaminophen tablet 1,000 mg (TYLENOL) 1,000 mg, gastric tube, Every 6 hours PRN, mild pain or score 1-3 of 10, fever, Starting on Wed02/28/24 at 1617 Given 03/01/2024 6:56 PM CDT 1,000 mg Given 02/28/2024 8:01 PM CDT 1,000 mg acetic acid 0.25 % irrigation solution (sterile) 1 Application 1 Application, topical, 3 times daily, First dose on Wed03/02/24 at 2100, Place 0.25% Acetic acid on Wypalls??, apply on top of ointment/cream as soon as applied and leave in place for 2 hours. Given 03/03/2024 8:16 PM CDT 1 Application Given 03/03/2024 2:52 PM CDT 1 Application Given 03/03/2024 8:03 AM CDT 1 Application apixaban tablet 5 mg (Eliquis) 5 mg, gastric tube, 2 times daily, First dose (after last modification) on Wed03/02/24 at 2100 Given 03/03/2024 8:17 PM CDT 5 mg Given 03/03/2024 8:04 AM CDT 5 mg Given 03/02/2024 8:37 PM CDT 5 mg baclofen tablet 20 mg (LioresaL) 20 mg, gastric tube, 4 times daily, First dose on Wed02/28/24 at 1700 Given 03/03/2024 8:17 PM CDT 20 mg Given 03/03/2024 5:07 PM CDT 20 mg Given 03/03/2024 12:16 PM CDT 20 mg cannabidioL solution 400 mg (EPIDIOLEX) 400 mg, gastric tube, Daily, First dose on Wed02/29/24 at 0900 Given 03/03/2024 8:04 AM CDT 400 mg Given 03/02/2024 9:00 AM CDT 400 mg Given 03/01/2024 8:41 AM CDT 400 mg cannabidioL solution 600 mg (EPIDIOLEX) 600 mg, gastric tube, Daily at bedtime, First dose on Wed02/28/24 at 2100 Given 03/03/2024 8:18 PM CDT 600 mg Given 03/02/2024 8:37 PM CDT 600 mg Given 03/01/2024 8:14 PM CDT 600 mg chlorhexidine 0.12 % mouthwash 15 mL (Peridex) 15 mL, swish & spit, 2 times daily, First dose on Wed03/02/24 at 0900, Swab oral cavity while on ventilator. Avoid brushing or use of mouthwash for at least 2 hours after application. Discontinue after extubation. Given 03/03/2024 8:16 PM CDT 1 5 mL Given 03/03/2024 8:04 AM CDT 15 mL Given 03/02/2024 8:36 PM CDT 15 mL cloBAZam tablet 10 mg (ONFI) 10 mg, gastric tube, Every evening, First dose on Wed02/28/24 at 1800 Given 03/03/2024 5:06 PM CDT 10 mg Given 03/02/2024 5:00 PM CDT 10 mg Given 03/01/2024 5:01 PM CDT 10 mg cloBAZam tablet 15 mg (ONFI) 15 mg, gastric tube, Every morning, First dose on Wed02/29/24 at 0900 Given 03/03/2024 8:03 AM CDT 15 mg Given 03/02/2024 8:57 AM CDT 15 mg Given 03/01/2024 8:41 AM CDT 15 mg D10W bolus 125 mL 125 mL (12.5 g), intravenous, at 500 mL/hr, Administer over 15 Minutes, As needed, low blood sugar, For glucose 54-70 mg/dL, Starting on Wed02/29/24 at 1803, If the patient has intravenous access available, is not able to take oral feeding safely, does not have a functioning gastrointestinal tract or feeding tube, or is NPO, administer D10W intravenously. New Bag 02/29/2024 9:15 PM CDT 125 mL 500 mL/hr D10W bolus 250 mL 250 mL (25 g), intravenous, at 1,000 mL/hr, Administer over 15 Minutes, As needed, low blood sugar, For glucose less than 54 mg/dL, Starting on Wed02/29/24 at 1803, If intravenous access is available, administer D10W intravenously D5W infusion 1-999 mL/hr, intravenous, As needed, Medications Incompatible with 0.9% NaCL, Starting on Wed03/02/24 at 1105, Infuse at the same rate as the piggyback until tubing clears or up to a volume of 20 mL pre and post infusion for medications incompatible with 0.9% NaCL. Use 50 mL bag then discard. dextrose 40 % gel 15 g (GLUTOSE) 15 g, oral, As needed, low blood sugar, For glucose 54-70 mg/dL, Starting on Wed02/29/24 at 1803, If patient is conscious and able to swallow safely and has a fuctioning gastrointestinal tract or on Acarbose (Precose??) or Miglitol (Glyset??). May use tablets or gel. felbamate suspension 1,200 mg (FELBATOL) 1,200 mg, gastric tube, 2 times daily, First dose on Wed02/28/24 at 2100 Given 03/03/2024 8:18 PM CDT 1,200 mg Given 03/03/2024 2:52 PM CDT 1,200 mg Given 03/02/2024 8:37 PM CDT 1,200 mg felbamate suspension 1,500 mg (FELBATOL) 1,500 mg, gastric tube, Daily before breakfast, First dose on Wed02/29/24 at 0700 Given 03/03/2024 7:48 AM CDT 1,500 mg Given 03/02/2024 6:03 AM CDT 1,500 mg Given 03/01/2024 6:23 AM CDT 1,500 mg glucose chewable tablet 16 g 16 g, oral, As needed, low blood sugar, For glucose 54-70 mg/dL, Starting on Wed02/29/24 at 1803, If patient is conscious and able to swallow safely and has a functioning gastrointestinal tract or on Acarbose (Precose??) or Miglitol (Glyset??). Administer 4 tablets to total 16 grams. May use tablets or gel. hydrocortisone 1 % ointment topical, 3 times daily, First dose on Wed03/02/24 at 2100, Apply ointment to the affected skin around the PEJ tube. If using ointment and cream, mix 50/50 and apply as directed. Given 03/03/2024 8:16 PM CDT Given 03/03/2024 2:52 PM CDT Given 03/03/2024 8:04 AM CDT ipratropium-albuteroL 0.5-2.5 mg/3 mL nebulizer solution 3 mL (DUONEB) 3 mL, nebulization, 4 times daily PRN, wheezing, shortness of breath, Starting on Wed02/28/24 at 1625 lamoTRIgine tablet 300 mg (LaMICtaL) 300 mg, gastric tube, Daily at bedtime, First dose on Wed02/28/24 at 2100 Given 03/03/2024 8:16 PM CDT 300 mg Given 03/02/2024 8:36 PM CDT 300 mg Given 03/01/2024 8:16 PM CDT 300 mg lamoTRIgine tablet 350 mg (LaMICtaL) 350 mg, gastric tube, Every morning, First dose on Wed02/29/24 at 0900 Given 03/03/2024 8:03 AM CDT 350 mg Given 03/02/2024 8:57 AM CDT 350 mg Given 03/01/2024 8:41 AM CDT 350 mg lamoTRIgine tablet 350 mg (LaMICtaL) 350 mg, gastric tube, Every afternoon, First dose on Wed02/29/24 at 1400 Given 03/03/2024 5:00 PM CDT 350 mg Given 03/02/2024 5:00 PM CDT 350 mg Given 03/01/2024 5:00 PM CDT 350 mg levETIRAcetam solution 1,500 mg (Keppra) 1,500 mg, gastric tube, Every morning, First dose on Wed02/29/24 at 0900 Given 03/03/2024 8:04 AM CDT 1,500 mg Given 03/02/2024 8:58 AM CDT 1,500 mg Given 03/01/2024 8:41 AM CDT 1,500 mg levETIRAcetam solution 1,600 mg (Keppra) 1,600 mg, gastric tube, Daily at bedtime, First dose on 02/28/24 at 2100 Given 03/03/2024 8:18 PM CDT 1,600 mg Given 03/02/2024 8:38 PM CDT 1,600 mg Given 03/01/2024 8:13 PM CDT 1,600 mg NaCl 0.9% bacteriostatic 0.9 % injection 20 mL 20 mL, intravenous, As needed, for agitated saline (bubble) studies, Starting on Wed03/01/24 at 1233, Intraprocedure - Diagnostic, See Ani. Given 03/01/2024 12:34 PM CDT 20 mL NaCl 0.9% infusion 1-999 mL/hr, intravenous, As needed, Between Consecutive Piggyback Medications, Starting on Tata 03/02/24 at 1105, Infuse at the same rate as the piggyback until tubing clears or up to a volume of 20 mL. Select for IV medication administration when no maintenance IV available or when IV medications are not compatible with maintenance fluid. NaCl 0.9% infusion 1-999 mL/hr, intravenous, As needed, Post Medications (Hazardous/Low Fluid Volume), Starting on Tata 03/02/24 at 1105, Infuse at the same rate as the medication until tubing cleared of medication, then discard. norepinephrine 16 mcg/mL in D5W 250 mL infusion 0-0.3 mcg/kg/min ? 69.4 kg Dosing weight (0-78.075 mL/hr, rounded to 0-78.08 mL/hr), intravenous, Continuous, Starting on Wed03/01/24 at 2045, Protect from light and avoid extravasation, Patient Type: Sepsis, Initiate at: 0.05 mcg/kg/min, Titrate at: 0.05 mcg/kg/min. every 5 min., Wean at: 0.01 mcg/kg/min. every 5 min., Goal: MAP 65-75 Rate/Dose Verify 03/04/2024 5:00 AM CDT 0.01 mcg/kg/min 2.6 mL/hr Rate/Dose Change 03/04/2024 4:44 AM CDT 0.01 mcg/kg/min 2. 6 mL/hr Rate/Dose Change 03/04/2024 4:34 AM CDT 0.02 mcg/kg/min 5. 21 mL/hr nystatin 100,000 unit/gram cream 1 Application (Mycostatin) 1 Application, topical, 3 times daily, First dose on Wed03/02/24 at 2100, Apply cream to affected tissue around the PEJ tube. If using ointment and cream, mix 50/50 and apply as directed. Given 03/03/2024 8:16 PM CDT 1 Application Given 03/03/2024 2:52 PM CDT 1 Application Given 03/03/2024 8:04 AM CDT 1 Application oxyBUTYnin tablet 5 mg (Ditropan) 5 mg, gastric tube, 3 times daily, First dose on Wed03/02/24 at 0900 Given 03/03/2024 8:17 PM CDT 5 mg Given 03/03/2024 2:52 PM CDT 5 mg Given 03/03/2024 8:03 AM CDT 5 mg pantoprazole injection 40 mg (Protonix) 40 mg, intravenous, Daily, First dose (after last modification) on Wed03/02/24 at 1730, Administer IV push over 2 minutes. Add 10 mL NS to 40 mg vial for a final concentration of 4 mg/mL. Given 03/03/2024 8:03 AM CDT 40 mg Given 03/02/2024 6:18 PM CDT 40 mg polyethylene glycol powder packet 17 g (Miralax) 17 g, gastric tube, Daily, First dose on Wed03/01/24 at 1415, Dissolve in 240 mLs (8 ounces) of water prior to giving. Avoid mixing with starch-based thickened liquids. Given 03/03/2024 8:03 AM CDT 17 g Given 03/02/2024 8:57 AM CDT 17 g Given 03/01/2024 2:12 PM CDT 17 g propofol 10 mg/mL infusion (Diprivan) 5-80 mcg/kg/min ? 69.4 kg Dosing weight (2.082-33.312 mL/hr, rounded to 2.08-33.31 mL/hr), intravenous, Continuous, Starting on Wed03/01/24 at 2245, Type: Titrate, Initiate at: 5 mcg/kg/min., Titrate at: 5 mcg/kg/min. every 5 min., Goal: For sedation - refer to titratable arousal order for RASS goal Rate/Dose Verify 03/02/2024 5:00 AM CDT 10 mcg/kg/min 4.16 mL/hr Rate/Dose Verify 03/02/2024 4:00 AM CDT 10 mcg/kg/min 4.16 mL/hr Rate/Dose Verify 03/02/2024 3:00 AM CDT 10 mcg/kg/min 4.16 mL/hr rufinamide tablet 200 mg (BANZEL) 200 mg, gastric tube, Every morning, First dose on Wed02/29/24 at 0900 Given 03/03/2024 8:04 AM CDT 200 mg Given 03/02/2024 8:58 AM CDT 200 mg Given 03/01/2024 8:43 AM CDT 200 mg rufinamide tablet 400 mg (BANZEL) 400 mg, gastric tube, Daily at bedtime, First dose on Wed02/28/24 at 2100 Given 03/03/2024 8:17 PM CDT 400 mg Given 03/02/2024 8:37 PM CDT 400 mg Given 03/01/2024 8:14 PM CDT 400 mg sennosides-docusate sodium 8.6-50 mg per tablet 1 tablet (Senokot-S) 1 tablet, gastric tube, 2 times daily, First dose on Wed03/01/24 at 2100 Given 03/03/2024 8:17 PM CDT 1 tablet Given 03/03/2024 8:03 AM CDT 1 tablet Given 03/02/2024 8:36 PM CDT 1 tablet sodium chloride 0.9 % injection 10 mL 10 mL, intravenous, As needed, line care, Starting on Wed03/01/24 at 1233, Prior to and following infusion and between multiple consecutive infusions: sodium chloride 0.9 % injection sodium chloride 0.9 % injection 10-30 mL 10-30 mL, intravenous, As needed, line care, Peripherally Inserted Central Catheter (PICC) Valved, Starting on Wed03/02/24 at 1106, Prior to and following infusion, between multiple consecutive infusions, flush 10 mL per lumen. sodium chloride 0.9 % injection 10-30 mL 10-30 mL, intravenous, Every 7 days, First dose on Wed03/03/24 at 0900, Peripherally Inserted Central Catheter (PICC) Valved: When no infusion to maintain patency flush 10 mL per lumen. Given 03/03/2024 8:05 AM CDT 10 mL sodium chloride 0.9 % injection 20-60 mL 20-60 mL, intravenous, As needed, line care, Peripherally Inserted Central Catheter (PICC) Valved, Starting on Wed03/02/24 at 1106, Prior to and following blood sampling or post blood transfusion, flush 20 mL per lumen. sulfamethoxazole-trimethoprim suspension 240 mg of trimethoprim 240 mg of trimethoprim (rounded from 240.1 mg of trimethoprim = 3.5 mg/kg of trimethoprim ? 68.6 kg), gastric tube, Every 8 hours, First dose on Wed03/03/24 at 1545, Drug Monitoring Program: Pharmacist to adjust medication dosing based on indication and drug clearance factors., Indications: Respiratory tract infection, healthcare associated Given 03/04/2024 12:19 AM CDT 240 mg of trimethoprim Given 03/03/2024 5:00 PM CDT 240 mg of trimethoprim Inactive Administered Medications - up to 3 most recent administrations Medication Order MAR Action Action Date Dose Rate Site albumin human 5 % injection 25 g 25 g, intravenous, Once, On Wed03/01/24 at 2300, For 1 dose, If no infusion rate specified: Administer the 5% solution at 999 mL/hr or less if ICU/shock, otherwise infuse at 250 mL/hr. New Bag 03/01/2024 11:25 PM CDT 25 g apixaban tablet 10 mg (ELIQUIS) 10 mg, gastric tube, 2 times daily, First dose on Wed02/29/24 at 1045, For 7 days Given 03/01/2024 8:42 AM CDT 10 mg Given 02/29/2024 8:47 PM CDT 10 mg Given 02/29/2024 11:28 AM CDT 10 mg cefepime in dextrose (iso osm) IVPB 2 g (Maxipime) 2 g, intravenous, at 200 mL/hr, Administer over 30 Minutes, Every 12 hours, First dose (after last modification) on Wed03/01/24 at 2300, Drug Monitoring Program: Pharmacist to adjust medication dosing based on indication and drug clearance factors., Indications: Respiratory tract infection, community acquired New Bag 03/02/2024 11:25 PM CDT 2 g 200 mL/hr New Bag 03/02/2024 11:04 AM CDT 2 g 200 mL/hr New Bag 03/02/2024 12:31 AM CDT 2 g 200 mL/hr cefTRIAXone in dextrose (iso osm) IVPB 2 g (ROCEPHIN) 2 g, intravenous, at 200 mL/hr, Administer over 15 Minutes, Every 24 hours, First dose on Wed02/28/24 at 1630, Monitor for rash/allergy. Approved by ID, Drug Monitoring Program: Pharmacist to adjust medication dosing based on indication and drug clearance factors., Indications: Respiratory tract infection, community acquired New Bag 02/28/2024 6:27 PM CDT 2 g 2 00 mL/hr cefTRIAXone in dextrose (iso osm) IVPB 2 g (ROCEPHIN) 2 g, intravenous, at 200 mL/hr, Administer over 15 Minutes, Every 24 hours, First dose (after last modification) on Wed02/29/24 at 1630, For 3 days, Monitor for rash/allergy. Approved by ID, Drug Monitoring Program: Pharmacist to adjust medication dosing based on indication and drug clearance factors., Indications: Respiratory tract infection, community acquired New Bag 03/01/2024 3:58 PM CDT 2 g 2 00 mL/hr New Bag 02/29/2024 3:49 PM CDT 2 g 200 mL/hr cefTRIAXone in dextrose (iso osm) IVPB 2 g (Rocephin) 2 g, intravenous, at 200 mL/hr, Administer over 15 Minutes, Every 24 hours, First dose (after last modification) on Wed03/03/24 at 1030, For 3 doses, Drug Monitoring Program: Pharmacist to adjust medication dosing based on indication and drug clearance factors., Indications: Respiratory tract infection, community acquired New Bag 03/03/2024 12:16 PM CDT 2 g 200 mL/hr doxycycline 100 mg in NaCl 0.9% IVPB (VIBRAMYCIN) 100 mg, intravenous, at 100 mL/hr, Administer over 60 Minutes, Every 12 hours, First dose on Wed02/28/24 at 1630, Mini-Bag Plus bag, Indications: Respiratory tract infection, community acquired New Bag 02/29/2024 4:29 AM CDT 100 mg 100 mL/hr New Bag 02/28/2024 7:13 PM CDT 100 mg 100 mL/hr doxycycline 100 mg in NaCl 0.9% IVPB (VIBRAMYCIN) 100 mg, intravenous, at 100 mL/hr, Administer over 60 Minutes, Every 12 hours, First dose (after last modification) on Wed02/29/24 at 1630, For 3 days, Mini-Bag Plus bag, Indications: Respiratory tract infection, community acquired New Bag 03/02/2024 5:00 PM CDT 100 mg 1 00 mL/hr New Bag 03/02/2024 3:31 AM CDT 100 mg 100 mL/hr New Bag 03/01/2024 5:01 PM CDT 100 mg 100 mL/hr etomidate injection 20 mg (Amidate) 20 mg, intravenous, Once, On Wed03/01/24 at 2245, For 1 dose Given 03/01/2024 9:49 PM CDT 20 mg felbamate suspension 1,200 mg (FELBATOL) 1,200 mg, gastric tube, Once, On Wed02/28/24 at 1630, For 1 dose Given 02/28/2024 6:27 PM CDT 1,200 mg heparin (porcine) injection 5,000 Units 5,000 Units, subcutaneous, Every 8 hours scheduled, First dose on Wed02/28/24 at 1530 Given 02/29/2024 6:06 AM CDT 5,000 Units Right Upper Arm (Back) Given 02/28/2024 9:53 PM CDT 5,000 Units L eft Lower Abdomen Given 02/28/2024 4:20 PM CDT 5,000 Units R ight Lower Abdomen iopromide 370 mg iodine/mL injection 1-162 mL (ULTRAVIST) 1-162 mL, intravenous, Once in imaging, contrast, Starting on Wed02/29/24 at 1209, For 1 dose, Imaging Protocol Orders, Dose per [facility] Medication Guidelines Given 02/29/2024 12:17 PM CDT 80 mL lactulose in sterile water 200 gram/1000 mL enema 1,000 mL 1,000 mL, rectal, Once, On Wed03/02/24 at 1245, For 1 dose, Total dose= 1000 mL; Instill ~ 300 mL at a time, and retain for 15-20 minutes each Given 03/02/2024 2:07 PM CDT 1,000 mL lactulose solution 20 g 20 g, gastric tube, Once, On Tata 03/02/24 at 1245, For 1 dose Given 03/02/2024 12:52 PM CDT 20 g lamoTRIgine tablet 350 mg (LaMICtaL) 350 mg, gastric tube, Once, On Wed02/28/24 at 1545, For 1 dose Given 02/28/2024 4:18 PM CDT 350 mg NaCl 0.9 % bolus 500 mL 500 mL, intravenous, at 1,000 mL/hr, Administer over 30 Minutes, Once, On Wed02/29/24 at 1830, For 1 dose New Bag 02/29/2024 6:13 PM CDT 500 mL 1000 mL/hr norepinephrine 16 mcg/mL in D5W 250 mL infusion - ADS Override Pull Starting on Wed03/01/24 at 2020, For 1 dose, Created by cabinet override Protect from light and avoid extravasation norepinephrine 16 mcg/mL in D5W 250 mL infusion 0-0.3 mcg/kg/min ? 69.4 kg Dosing weight (0-78.075 mL/hr, rounded to 0-78.08 mL/hr), intravenous, Continuous, Starting on Wed02/28/24 at 1915, Protect from light and avoid extravasation, Patient Type: Sepsis, Initiate at: 0.05 mcg/kg/min, Titrate at: 0.05 mcg/kg/min. every 5 min., Wean at: 0.01 mcg/kg/min. every 5 min., Goal: MAP 65-75 Rate/Dose Change 03/01/2024 8:19 AM CDT 0.01 mcg/kg/min 2.6 mL/hr Rate/Dose Verify 03/01/2024 8:00 AM CDT 0.02 mcg/kg/min 5. 21 mL/hr Rate/Dose Verify 03/01/2024 7:00 AM CDT 0.02 mcg/kg/min 5. 21 mL/hr phenylephrine 1 mg/10 mL (100 mcg/mL) injection - ADS Override Pull Starting on Wed03/01/24 at 2132, For 1 dose, Created by cabinet override phenylephrine injection 200 mcg 200 mcg, intravenous, Once, On Wed03/01/24 at 2245, For 1 dose Given 03/01/2024 9:49 PM CDT 200 mcg propofoL (Diprivan) 10 mg/mL injection - ADS Override Pull Starting on Wed03/01/24 at 2134, For 1 dose, Created by cabinet override rocuronium (Zemuron) 10 mg/mL injection - ADS Override Pull Starting on Wed03/01/24 at 2132, For 1 dose, Created by cabinet override rocuronium injection 50 mg (Zemuron) 50 mg, intravenous, Once, On Wed03/01/24 at 2245, For 1 dose Given 03/01/2024 9:49 PM CDT 50 mg sodium chloride (PF) 0.9 % injection 1-100 mL 1-100 mL, intravenous, Once, On Wed02/29/24 at 1230, For 1 dose, Imaging Protocol Orders, Dose per Radiant Medication Guidelines Given 02/29/2024 12:17 PM CDT 50 mL vancomycin in NaCl 0.9% IVPB 1,250 mg 1,250 mg (rounded from 1,174 mg = 20 mg/kg ? 58.7 kg Adjusted weight), intravenous, at 167 mL/hr, Administer over 90 Minutes, Once, On Wed03/01/24 at 0945, For 1 dose, Drug Monitoring Program: Pharmacist to adjust medication dosing based on indication and drug clearance factors., Indications: Blood stream infection New Bag 03/01/2024 10:17 AM CDT 1,250 mg 167 mL/hr documented in this encounter Active and Recently Administered Medications Times are shown in CDT. Scheduled Medication Order 03/02/2024 03/03/2024 03/04/2024 acetic acid 0.25 % irrigation solution (sterile) 1 Application 1 Application, topical, 3 times daily, First dose on Wed03/02/24 at 2100, Place 0.25% Acetic acid on Wypalls??, apply on top of ointment/cream as soon as applied and leave in place for 2 hours. 2145 (Given - Provider: Cira Paredes R.N.) 0803 (Given - Provider: Vanessa Rae RHarika.)1452 (Given - Provider: Vanessa Rae R.N.)2016 (Given - Provider: Jennifer Arreola R.N., CCRN) 0900 (Due)1400 (Due)2100 (Due) apixaban tablet 5 mg (Eliquis) 5 mg, gastric tube, 2 times daily, First dose (after last modification) on Wed03/02/24 at 2099 2036 (Given - Provider: Cira Paredes R.N.) 0804 (Given - Provider: Vanessa Rae R.N.)2016 (Given - Provider: Jennifer Arreola R.N., CCRN) 0900 (Due)2099 (Due) baclofen tablet 20 mg (LioresaL) 20 mg, gastric tube, 4 times daily, First dose on Wed02/28/24 at 1700 0857 (Given - Provider: Teagan Beverly R.N., CCRN)1104 (Given - Provider: Teagan Beverly R.N., CCRN)1700 (Given - Provider: Teagan Beverly R.N., CCRN)203 (Given - Provider: Cira Paredes R.N.) 0803 (Given - Provider: Nico GeorgeN.)1216 (Given - Provider: Vanessa Rae RMayN.)1707 (Given - Provider: Vanessa Rae, RMayNMay)2016 (Given - Provider: Jennifer Arreola R.N., CCRN) 0800 (Due)1200 (Due)1700 (Due)2099 (Due) cannabidioL solution 400 mg (EPIDIOLEX)(Linked Group 1) 400 mg, gastric tube, Daily, First dose on Wed02/29/24 at 0900 0900 (Given - Provider: Teagan Beverly R.N., CCRN) 0804 (Given - Provider: Vanessa Rae RMayNMay) 0900 (Due) cannabidioL solution 600 mg (EPIDIOLEX)(Linked Group 1) 600 mg, gastric tube, Daily at bedtime, First dose on Wed02/28/24 at 2099 2036 (Given - Provider: Cira Paredes R.N.) 2017 (Given - Provider: Jennifer Arreola R.N., CCRN) 2099 (Due) cefepime in dextrose (iso osm) IVPB 2 g (Maxipime) (CANCELED) 2 g, intravenous, at 200 mL/hr, Administer over 30 Minutes, Every 12 hours, First dose (after last modification) on Wed03/01/24 at 2300, Drug Monitoring Program: Pharmacist to adjust medication dosing based on indication and drug clearance factors., Indications: Respiratory tract infection, community acquired 0031 (New Bag - Provider: Zayda Nielson R.N.)1104 (New Bag - Provider: Teagan Beverly R.N., CCRN)2325 (New Bag - Provider: Cira Paredes R.N.) cefTRIAXone in dextrose (iso osm) IVPB 2 g (Rocephin) (CANCELED) 2 g, intravenous, at 200 mL/hr, Administer over 15 Minutes, Every 24 hours, First dose (after last modification) on Wed03/03/24 at 1030, For 3 doses, Drug Monitoring Program: Pharmacist to adjust medication dosing based on indication and drug clearance factors., Indications: Respiratory tract infection, community acquired 1216 (New Bag - Provider: Vanessa Rae R.N.) chlorhexidine 0.12 % mouthwash 15 mL (Peridex) 15 mL, swish & spit, 2 times daily, First dose on Wed03/02/24 at 0900, Swab oral cavity while on ventilator. Avoid brushing or use of mouthwash for at least 2 hours after application. Discontinue after extubation. 1010 (Given - Provider: Teagan Beverly R.N., CCRN)2036 (Given - Provider: Cira Paredes R.N.) 0804 (Given - Provider: Vanessa Rae R.N.)2016 (Given - Provider: Jennifer Arreola R.N., CCRN) 0900 (Due)2100 (Due) cloBAZam tablet 10 mg (ONFI) 10 mg, gastric tube, Every evening, First dose on Wed02/28/24 at 1800 1700 (Given - Provider: Teagan Beverly R.N., CCRN) 1706 (Given - Provider: Vanessa Rae R.N.) 1800 (Due) cloBAZam tablet 15 mg (ONFI) 15 mg, gastric tube, Every morning, First dose on Wed02/29/24 at 0900 0857 (Given - Provider: Teagan Beverly R.N., CCRN) 0803 (Given - Provider: Vanessa Rae R.N.) 0900 (Due) doxycycline 100 mg in NaCl 0.9% IVPB (VIBRAMYCIN) (COMPLETED) 100 mg, intravenous, at 100 mL/hr, Administer over 60 Minutes, Every 12 hours, First dose (after last modification) on Wed02/29/24 at 1630, For 3 days, Mini-Bag Plus bag, Indications: Respiratory tract infection, community acquired 0331 (New Bag - Provider: Zayda Nielson R.N.)1700 (New Bag - Provider: Teagan Beverly R.N., CCRN) felbamate suspension 1,200 mg (FELBATOL) 1,200 mg, gastric tube, 2 times daily, First dose on Wed02/28/24 at 2100 1500 (Given - Provider: Teagan Beverly R.N., CCRN)2037 (Given - Provider: Cira Paredes R.N.) 1452 (Given - Provider: Vanessa Rae R.N.)2017 (Given - Provider: Jennifer Arreola R.N., CCRN) 1400 (Due)2100 (Due) felbamate suspension 1,500 mg (FELBATOL) 1,500 mg, gastric tube, Daily before breakfast, First dose on Wed02/29/24 at 0700 0603 (Given - Provider: Zayda Nielson R.N.) 0748 (Given - Provider: Vanessa Rae R.N.) 0700 (Due) hydrocortisone 1 % ointment topical, 3 times daily, First dose on Wed03/02/24 at 2100, Apply ointment to the affected skin around the PEJ tube. If using ointment and cream, mix 50/50 and apply as directed. 2145 (Given - Provider: Cira Paredes R.N.) 0804 (Given - Provider: Vanessa Rae R.N.)1452 (Given - Provider: Vanessa Rae R.N.)2015 (Given - Provider: Jennifer Arreola R.N., CCRN) 0900 (Due)1400 (Due)2100 (Due) lactulose in sterile water 200 gram/1000 mL enema 1,000 mL (COMPLETED) 1,000 mL, rectal, Once, On Wed03/02/24 at 1245, For 1 dose, Total dose= 1000 mL; Instill ~ 300 mL at a time, and retain for 15-20 minutes each 1407 (Given - Provider: Teagan Beverly R.N., CCRN) lactulose solution 20 g (COMPLETED) 20 g, gastric tube, Once, On Wed03/02/24 at 1245, For 1 dose 1252 (Given - Provider: Teagan Beverly R.N., CCRN) lamoTRIgine tablet 300 mg (LaMICtaL)(Linked Group 2) 300 mg, gastric tube, Daily at bedtime, First dose on Wed02/28/24 at 2100 2036 (Given - Provider: Cira Paredes R.N.) 2016 (Given - Provider: Jennifer Arreola R.N., CCRN) 2100 (Due) lamoTRIgine tablet 350 mg (LaMICtaL)(Linked Group 2) 350 mg, gastric tube, Every morning, First dose on Wed02/29/24 at 0900 0857 (Given - Provider: Teagan Beverly R.N., ZEFERINON) 0803 (Given - Provider: Vanessa Rae RJuli) 0900 (Due) lamoTRIgine tablet 350 mg (LaMICtaL)(Linked Group 2) 350 mg, gastric tube, Every afternoon, First dose on Wed02/29/24 at 1400 1700 (Given - Provider: Teagan Beverly R.N., CCRN) 1700 (Given - Provider: Vanessa Rae R.N.) 1600 (Due) levETIRAcetam solution 1,500 mg (Keppra) 1,500 mg, gastric tube, Every morning, First dose on Wed02/29/24 at 0900 0858 (Given - Provider: Teagan Beverly R.N., ZEFERINON) 0804 (Given - Provider: Vanessa Rae R.N.) 0900 (Due) levETIRAcetam solution 1,600 mg (Keppra) 1,600 mg, gastric tube, Daily at bedtime, First dose on Wed02/28/24 at 2100 2037 (Given - Provider: Cira Paredes R.N.) 2017 (Given - Provider: Jennifer Arreola R.N., CCRN) 2100 (Due) lidocaine 10 mg/mL (1 %) injection 0-10 mL (Xylocaine) 0-10 mL, intradermal, Once, On Wed03/02/24 at 0900, For 1 dose, Administer intradermally prior to PICC placement. Patient 18 years and older - 1 mL (may repeat twice up to 1 mL each PICC insertion attempt if patient complains or pain or discomfort at injection site. 1434 (Not Given - Provider: Teagan Beverly R.N., CCRN - Reason: Other - Comment: ordered for picc placement, not given by bedside RN) nystatin 100,000 unit/gram cream 1 Application (Mycostatin) 1 Application, topical, 3 times daily, First dose on Wed03/02/24 at 2100, Apply cream to affected tissue around the PEJ tube. If using ointment and cream, mix 50/50 and apply as directed. 2145 (Given - Provider: Cira Paredes R.N.) 0804 (Given - Provider: Vanessa Rae R.N.)1452 (Given - Provider: Vanessa Rae R.N.)2016 (Given - Provider: Jennifer Arreola R.N., CCRN) 0900 (Due)1400 (Due)2100 (Due) oxyBUTYnin tablet 5 mg (Ditropan) 5 mg, gastric tube, 3 times daily, First dose on Wed03/02/24 at 0900 0857 (Given - Provider: Teagan Beverly R.N., CCRN)1500 (Given - Provider: Teagan Beverly R.N., CCRN)2036 (Given - Provider: Cira Paredes R.N.) 0803 (Given - Provider: Vanessa Rae R.N.)1452 (Given - Provider: Vanessa Rae R.N.)2017 (Given - Provider: Jennifer Arreola R.N., CCRN) 0900 (Due)1400 (Due)2100 (Due) pantoprazole injection 40 mg (Protonix) 40 mg, intravenous, Daily, First dose (after last modification) on Wed03/02/24 at 1730, Administer IV push over 2 minutes. Add 10 mL NS to 40 mg vial for a final concentration of 4 mg/mL. 1818 (Given - Provider: Teagan Beverly R.N., ZEFERINON) 0803 (Given - Provider: Vanessa Rae R.N.) 0900 (Due) polyethylene glycol powder packet 17 g (Miralax) 17 g, gastric tube, Daily, First dose on Wed03/01/24 at 1415, Dissolve in 240 mLs (8 ounces) of water prior to giving. Avoid mixing with starch-based thickened liquids. 0857 (Given - Provider: Teagan Beverly R.N., ZEFERINON) 0803 (Given - Provider: Vanessa Rae R.N.) 0900 (Due) rufinamide tablet 200 mg (BANZEL) 200 mg, gastric tube, Every morning, First dose on Wed02/29/24 at 0900 0858 (Given - Provider: Teagan Beverly R.N., CCRN) 0804 (Given - Provider: Vanessa Rae R.N.) 0900 (Due) rufinamide tablet 400 mg (BANZEL) 400 mg, gastric tube, Daily at bedtime, First dose on Wed02/28/24 at 2100 2036 (Given - Provider: Cira Paredes R.N.) 2016 (Given - Provider: Jennifer Arreola R.N., CCRN) 2099 (Due) sennosides-docusate sodium 8.6-50 mg per tablet 1 tablet (Senokot-S) 1 tablet, gastric tube, 2 times daily, First dose on Wed03/01/24 at 2100 0857 (Given - Provider: Teagan Beverly R.N., CCRN)2035 (Given - Provider: Cira Paredes R.N.) 08 (Given - Provider: Vanessa J Westrom, R.N.)2017 (Given - Provider: Jennifer Arreola R.N., CCRN) 0900 (Due)2100 (Due) sodium chloride 0.9 % injection 10-30 mL 10-30 mL, intravenous, Once, On Tata 03/02/24 at 0900, For 1 dose, 10 mL flush to each lumen 1433 (Not Given - Provider: Teagan Beverly R.N., CCRN - Reason: Other - Comment: ordered for picc placement, not given by bedside RN) sodium chloride 0.9 % injection 10-30 mL 10-30 mL, intravenous, Every 7 days, First dose on Wed03/03/24 at 0900, Peripherally Inserted Central Catheter (PICC) Valved: When no infusion to maintain patency flush 10 mL per lumen. 0805 (Given - Provider: Vanessa Rae R.N.) sulfamethoxazole-trimeth oprim suspension 240 mg of trimethoprim 240 mg of trimethoprim (rounded from 240.1 mg of trimethoprim = 3.5 mg/kg of trimethoprim ? 68.6 kg), gastric tube, Every 8 hours, First dose on Wed03/03/24 at 1545, Drug Monitoring Program: Pharmacist to adjust medication dosing based on indication and drug clearance factors., Indications: Respiratory tract infection, healthcare associated 1700 (Given - Provider: Vanessa Rae R.N.) 0019 (Given - Provider: Jennifer Arreola R.N., CCRN)0745 (Due)1545 (Due)2345 (Due) Continuous Medication Order 03/02/2024 03/03/2024 03/04/2024 norepinephrine 16 mcg/mL in D5W 250 mL infusion 0-0.3 mcg/kg/min ? 69.4 kg Dosing weight (0-78.075 mL/hr, rounded to 0-78.08 mL/hr), intravenous, Continuous, Starting on Wed03/01/24 at 2045, Protect from light and avoid extravasation, Patient Type: Sepsis, Initiate at: 0.05 mcg/kg/min, Titrate at: 0.05 mcg/kg/min. every 5 min., Wean at: 0.01 mcg/kg/min. every 5 min., Goal: MAP 65-75 0000 (Rate/Dose Verify - Provider: Zayda M Naga, R.N.)0100 (Rate/Dose Verify - Provider: Zayda Nielson R.N.)0200 (Rate/Dose Verify - Provider: Zayda Nielson R.N.)0226 (Rate/Dose Change - Provider: Zayda Nielson R.N.)0255 (Rate/Dose Change - Provider: Zayda Nielson R.N.)0300 (Canceled Entry - Provider: Zayda Nielson R.N. - Comment: Cancelled from back documented administration.)0330 (Rate/Dose Change - Provider: Zayda Nielson R.N.)0400 (Rate/Dose Verify - Provider: Zayda Nielson R.N.)0432 (Rate/Dose Change - Provider: Zayda Nielson R.N.)0435 (Rate/Dose Change - Provider: Zayda Nielson R.N.)0500 (Rate/Dose Verify - Provider: Zayda Nielson R.N.)0600 (Rate/Dose Verify - Provider: Zayda Nielson R.N.)0609 (Rate/Dose Change - Provider: Zayda Nielson R.N.)0642 (Rate/Dose Change - Provider: Zayda Nielson R.N.)0700 (Rate/Dose Verify - Provider: Zayda Nielson R.N.)0728 (Rate/Dose Change - Provider: Teagan Beverly R.N., CCRN)0735 (Rate/Dose Change - Provider: Teagan Beverly RJuli, CCRN)0743 (Rate/Dose Change - Provider: Teagan Beverly R.Alice, CCRN)0800 (Rate/Dose Verify - Provider: Teagan Beverly R.N., CCRN)0805 (Rate/Dose Change - Provider: Fawad Anderson.Alice, CCRN)0817 (Rate/Dose Change - Provider: Teagan Beverly R.N., CCRN)0825 (Rate/Dose Change - Provider: Fawad Anderson.Alice, CCRN)0832 (Rate/Dose Change - Provider: Teagan Beverly R.N., CCRN)0845 (Rate/Dose Change - Provider: Teagan Beverly R.N., CCRN)0900 (Rate/Dose Verify - Provider: Fawad Anderson.N., CCRN)0915 (Rate/Dose Change - Provider: Fawad Anderson.N., CCRN)0940 (Rate/Dose Change - Provider: Teagan Beverly R.N., CCRN)0945 (Rate/Dose Change - Provider: Fawad Anderson.N., CCRN)0955 (Rate/Dose Change - Provider: Teagan Beverly R.N., CCRN)1000 (Rate/Dose Verify - Provider: Fawad Anderson.N., CCRN)1001 (Rate/Dose Change - Provider: Fawad Anderson.Violet., CCRN)1015 (Rate/Dose Change - Provider: Fawad Anderson.N., CCRN)1028 (Rate/Dose Change - Provider: Fawad Anderson.N., CCRN)1051 (Rate/Dose Change - Provider: Teagan Beverly R.N., CCRN)1054 (Rate/Dose Change - Provider: Teagan Beverly R.N., CCRN)1100 (Rate/Dose Verify - Provider: Fawad Anderson.N., CCRN)1116 (New Bag - Provider: Teagan Beverly R.N., CCRN)1200 (Rate/Dose Verify - Provider: Teagan Beverly R.N., CCRN)1201 (Rate/Dose Change - Provider: Teagan Beverly R.N., CCRN)1224 (Rate/Dose Change - Provider: Teagan Beverly R.N., CCRN)1300 (Rate/Dose Verify - Provider: Fawad Anderson.N., CCRN)1400 (Rate/Dose Verify - Provider: Teagan Beverly R.N., CCRN)1430 (Rate/Dose Change - Provider: Teagan Beverly R.N., CCRN)1500 (Rate/Dose Verify - Provider: Teagan Beverly R.N., CCRN)1502 (Rate/Dose Change - Provider: Teagan Beverly R.N., CCRN)1532 (Rate/Dose Change - Provider: Teagan Beverly R.N., CCRN)1600 (Rate/Dose Change - Provider: Fawad Anderson.Alice, CCRN)1648 (Rate/Dose Change - Provider: Teagan Beverly R.N., CCRN)1700 (Rate/Dose Verify - Provider: Teagan Beverly R.N., CCRN)1800 (Rate/Dose Verify - Provider: Teagan Beverly R.N., CCRN)1825 (Rate/Dose Change - Provider: Teagan Beverly R.N., CCRN)1845 (Canceled Entry - Provider: Teagan Beverly R.N., CCRN)1900 (Rate/Dose Verify - Provider: Teagan Beverly R.N., CCRN)1923 (Handoff - Provider: Teagan Beverly R.N., CCRN)2015 (Rate/Dose Change - Provider: Cira Paredes R.N.)2226 (Rate/Dose Change - Provider: Cira Paredes R.N.)2300 (Rate/Dose Verify - Provider: Cira Paredes R.N.) 0000 (Rate/Dose Verify - Provider: Cira Paredes R.N.)0200 (Rate/Dose Verify - Provider: Cira Paredes R.N.)0400 (Rate/Dose Verify - Provider: Cira Paredes R.N.)0409 (Rate/Dose Change - Provider: Cira Paredes R.N.)0423 (Rate/Dose Change - Provider: Cira M Lena, R.N.)0500 (Rate/Dose Verify - Provider: Cira Paredes R.N.)0600 (Rate/Dose Verify - Provider: Cira Paredes R.N.)0606 (New Bag - Provider: Cira Paredes R.N.)0650 (Rate/Dose Change - Provider: Cira Paredes R.N.)0658 (Rate/Dose Change - Provider: Cira Paredes R.N.)0722 (Handoff - Provider: Cira Paredes R.N.)0723 (Rate/Dose Change - Provider: Cira Paredes R.N.)0800 (Rate/Dose Verify - Provider: Vanessa Rae R.N.)0900 (Rate/Dose Verify - Provider: Vanessa Rae R.N.)0906 (Rate/Dose Change - Provider: Vanessa Rae R.N.)0922 (Rate/Dose Change - Provider: Vanessa Rae R.N.)1000 (Rate/Dose Verify - Provider: Vanessa Rae R.N.)1100 (Rate/Dose Verify - Provider: Fawad George.Violet.)1200 (Rate/Dose Verify - Provider: Vanessa Rae R.N.)1320 (Rate/Dose Change - Provider: Charlie Galarza, R.N., CCRN)1600 (Rate/Dose Verify - Provider: Vanessa Rae R.N.)1700 (Rate/Dose Verify - Provider: Vanessa Rae R.N.)1800 (Rate/Dose Verify - Provider: Fawad George.N.)1900 (Rate/Dose Verify - Provider: Jennifer Arreola R.N., CCRN)2000 (Rate/Dose Verify - Provider: Jennifer Arreola R.N., CCRN)2008 (Rate/Dose Change - Provider: Jennifer Arreola R.N., CCRN)2100 (Rate/Dose Verify - Provider: Jennifer Arreola R.N., CCRN)2121 (Rate/Dose Change - Provider: Jennifer Arreola R.N., CCRN)2138 (Rate/Dose Change - Provider: Jennifer Arreola R.N., CCRN)2200 (Rate/Dose Verify - Provider: Jennifer Arreola R.N., CCRN)2237 (New Bag - Provider: Jennifer Arreola R.N., CCRN)2300 (Rate/Dose Verify - Provider: Jennifer Arreola R.N., CCRN) 0000 (Rate/Dose Verify - Provider: Jennifer Arreola R.N., CCRN)0053 (Rate/Dose Change - Provider: Jennifer Arreola R.N., CCRN)0100 (Rate/Dose Verify - Provider: Jennifer Arreola R.N., CCRN)0200 (Rate/Dose Verify - Provider: Jennifer Arreola R.N., CCRN)0300 (Rate/Dose Verify - Provider: Jennifer Arreola R.N., CCRN)0400 (Rate/Dose Verify - Provider: Jennifer Arreola R.N., CCRN)0434 (Rate/Dose Change - Provider: Jennifer Arreola R.N., CCRN)0444 (Rate/Dose Change - Provider: Jennifer Arreola R.N., CCRN)0500 (Rate/Dose Verify - Provider: Jennifer Arreola R.N., CCRN) propofol 10 mg/mL infusion (Diprivan) 5-80 mcg/kg/min ? 69.4 kg Dosing weight (2.082-33.312 mL/hr, rounded to 2.08-33.31 mL/hr), intravenous, Continuous, Starting on Wed03/01/24 at 2245, Type: Titrate, Initiate at: 5 mcg/kg/min., Titrate at: 5 mcg/kg/min. every 5 min., Goal: For sedation - refer to titratable arousal order for RASS goal 0000 (Rate/Dose Verify - Provider: Zayda Nielson R.N.)0100 (Rate/Dose Verify - Provider: Zayda Nielson R.N.)0200 (Rate/Dose Verify - Provider: Zayda Nielson R.N.)0252 (Rate/Dose Change - Provider: Zayda Nielson R.N.)0300 (Rate/Dose Verify - Provider: Zayda Nielson R.N.)0400 (Rate/Dose Verify - Provider: Zayda Nielson R.N.)0500 (Rate/Dose Verify - Provider: Zayda Nielson R.N.)0551 (Stopped - Provider: Zayda Nielson R.N.) 0501 (Due) PRN Medication Order 03/02/2024 03/03/2024 03/04/2024 acetaminophen tablet 1,000 mg (TYLENOL) 1,000 mg, gastric tube, Every 6 hours PRN, mild pain or score 1-3 of 10, fever, Starting on Wed02/28/24 at 1617 bisacodyL suppository 10 mg (DULCOLAX) 10 mg, rectal, Daily PRN, constipation, if no results from AM miralax, Starting on Wed02/28/24 at 1643 D10W bolus 125 mL 125 mL (12.5 g), intravenous, at 500 mL/hr, Administer over 15 Minutes, As needed, low blood sugar, For glucose 54-70 mg/dL, Starting on Wed02/29/24 at 1803, If the patient has intravenous access available, is not able to take oral feeding safely, does not have a functioning gastrointestinal tract or feeding tube, or is NPO, administer D10W intravenously. D10W bolus 250 mL 250 mL (25 g), intravenous, at 1,000 mL/hr, Administer over 15 Minutes, As needed, low blood sugar, For glucose less than 54 mg/dL, Starting on Wed02/29/24 at 1803, If intravenous access is available, administer D10W intravenously D5W infusion 1-999 mL/hr, intravenous, As needed, Medications Incompatible with 0.9% NaCL, Starting on Wed03/02/24 at 1105, Infuse at the same rate as the piggyback until tubing clears or up to a volume of 20 mL pre and post infusion for medications incompatible with 0.9% NaCL. Use 50 mL bag then discard. dextrose 40 % gel 15 g (GLUTOSE) 15 g, oral, As needed, low blood sugar, For glucose 54-70 mg/dL, Starting on Wed02/29/24 at 1803, If patient is conscious and able to swallow safely and has a fuctioning gastrointestinal tract or on Acarbose (Precose??) or Miglitol (Glyset??). May use tablets or gel. glucose chewable tablet 16 g 16 g, oral, As needed, low blood sugar, For glucose 54-70 mg/dL, Starting on Wed02/29/24 at 1803, If patient is conscious and able to swallow safely and has a functioning gastrointestinal tract or on Acarbose (Precose??) or Miglitol (Glyset??). Administer 4 tablets to total 16 grams. May use tablets or gel. ipratropium-albuteroL 0.5-2.5 mg/3 mL nebulizer solution 3 mL (DUONEB) 3 mL, nebulization, 4 times daily PRN, wheezing, shortness of breath, Starting on Wed02/28/24 at 1625 NaCl 0.9% bacteriostatic 0.9 % injection 20 mL 20 mL, intravenous, As needed, for agitated saline (bubble) studies, Starting on Wed03/01/24 at 1233, Intraprocedure - Diagnostic, See Ani. NaCl 0.9% infusion 1-999 mL/hr, intravenous, As needed, Between Consecutive Piggyback Medications, Starting on Wed03/02/24 at 1105, Infuse at the same rate as the piggyback until tubing clears or up to a volume of 20 mL. Select for IV medication administration when no maintenance IV available or when IV medications are not compatible with maintenance fluid. NaCl 0.9% infusion 1-999 mL/hr, intravenous, As needed, Post Medications (Hazardous/Low Fluid Volume), Starting on Wed03/02/24 at 1105, Infuse at the same rate as the medication until tubing cleared of medication, then discard. sodium chloride 0.9 % injection 10 mL 10 mL, intravenous, As needed, line care, Starting on Wed03/01/24 at 1233, Prior to and following infusion and between multiple consecutive infusions: sodium chloride 0.9 % injection sodium chloride 0.9 % injection 10-30 mL 10-30 mL, intravenous, As needed, line care, Peripherally Inserted Central Catheter (PICC) Valved, Starting on Wed03/02/24 at 1106, Prior to and following infusion, between multiple consecutive infusions, flush 10 mL per lumen. sodium chloride 0.9 % injection 20-60 mL 20-60 mL, intravenous, As needed, line care, Peripherally Inserted Central Catheter (PICC) Valved, Starting on Wed03/02/24 at 1106, Prior to and following blood sampling or post blood transfusion, flush 20 mL per lumen. Linked Groups Order Group 1: cannabidioL solution 400 mg (EPIDIOLEX)Jump to med 400 mg, gastric tube, Daily, First dose on Wed02/29/24 at 0900 And cannabidioL solution 600 mg (EPIDIOLEX)Jump to med 600 mg, gastric tube, Daily at bedtime, First dose on Wed02/28/24 at 2100 Group 2: lamoTRIgine tablet 350 mg (LaMICtaL)Jump to med 350 mg, gastric tube, Every morning, First dose on Wed02/29/24 at 0900 And lamoTRIgine tablet 350 mg (LaMICtaL)Jump to med 350 mg, gastric tube, Every afternoon, First dose on Wed02/29/24 at 1400 And lamoTRIgine tablet 300 mg (LaMICtaL)Jump to med 300 mg, gastric tube, Daily at bedtime, First dose on Wed02/28/24 at 2100 documented in this encounter Additional Health Concerns Infection Onset Date Last Indicated Resolved Time COVID19 Pending 02/29/2024 02/29/2024 02/29/2024 1 1:04 AM CDT documented as of this encounter Care Teams Stogy Roller Relationship Specialty Start Date End Date Elsewhere, Pcp PCP - General Family Medicine 06/24/18 documented as of this encounter
--- OUTSIDE RECORDS SUMMARY | 2024-03-04 05:17 | XMS_ITS | Encounter Summary ---
Author Organization [facility] Address [address] [place] [address] Care Team Providers Care Delivery Driver/Customer Service Name Role Phone Elsewhere, Pcp Primary Care Provider Unavailabl e Encounter Details Date Type Department Care Team (Late st Contact Info) Description 12/30/2023 Orders Only Department of Nutrition and Diabetes Education in [place], [place] [address] [place] [address] Na Brennan, RDN, LD [address] [place] [phone] Ayaan Gastaut Syndrome (HCC) (Primary Dx); Gastrojejunostomy [...] How often do you attend jainism or episcopal serv ices? Patient declined 12/11/2021 [...] and heating? Not hard at all 12/11/2021 [facility] Occupat ional Health - [...] place to sleep or slept in a longterm (including now)? No 12/11/2021 Nutrition Answer Date [...] needed adaptors/extension sets and will fax to [place] once signed by our provider. Reminded mom that the feeding tube will need to be replaced in 3 to 5 months and Say will be due for his yearly home enteral clinic visits this Fall (May/early June). She verbalized understanding. documented in this encounter Plan of Treatment Not on file documented as of this encounter Visit Diagnoses Diagnosis [place] Gastaut Syndrome (HCC)- Primary Gastrojejunostomy Percutaneous Status Post Dietary Counseling And Surveillance For Enteral Nutrition documented in this encounter Care Teams Delivery Driver/Customer Service Relationship Specialty Start Date End Date Elsewhere, Pcp PCP - General Family Medicine 06/24/18 documented as of this encounter
--- OUTSIDE RECORDS SUMMARY | 2024-03-04 05:17 | XMS_ITS | Encounter Summary ---
Author Organization [facility] Address [address] [place] [address] Care Team Providers Care Hand Lens Polisher Name Role Phone Elsewhere, Pcp Primary Care Provider Unavailabl e Reason for Visit * Outpatient (Routine) - Closed Specialty Diagnoses / Procedures Referred By Valorie copeland Referred To Contact Sleep Medicine Srinath Rodriguez M.D. [address] [place] [phone] Jessy Pisano M.D. [address] [place] [phone] Referral ID Status Reason Start Date Expiration Date Visits Re quested Visits Authorized [id number] Closed 12/27/2023 06/27/2025 1 1 Encounter Details Date Type Department Care Team (Latest Contact Info) Description 01/12/2024 9:30 AM CDT Telemedicine Center for [facility] Medicine in [place], [place] [address] [place] [phone] Jessy Pisano M.D. [address] [place] [phone] Snoring (Primary Dx); Hypoxemia; Stroke Cerebrovascular Accident [...] declined 12/11/2021 How often do you attend zoroastrianism or christian serv ices? Patient declined 12/11/2021 Do you belong to any clubs o r organizations such as zoroastrianism groups, unions, fraternal or athletic groups, or [...] and heating? Not hard at all 12/11/2021 [facility] of Occupat ional Health - Occupational Stress [...] somnolence during his stay for which an WEBSITE PROJECT MANAGER was called, VBG showed pH 7.27, pCO2 [...] he can do/participate in during the day. 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
--- OUTSIDE RECORDS SUMMARY | 2024-03-04 05:17 | XMS_ITS | Encounter Summary ---
Author Organization [facility] Address [address] [place] [address] Care Team Providers Care Alliance Consultant Name Role Phone Elsewhere, Pcp Primary Care Provider Unavailabl e Encounter Details Date Type Department Care Team (Latest Contact Info) Description 02/28/2024 Intake [facility] Social History Tobacco Use Types Packs/Day Years Used Date Smoking Tobacco: Never Smokeless Tobacco: Never Alcohol Use Standard Drinks/Week Comments Never 0 (1 standard drink = 0.6 oz pur e alcohol) [facility] Utilities Answer Date Recorded In the past 12 months has e adaffix, gas, oil, or water [place] threatened to shut off services in your [...] How often do you attend temple or temple serv ices? Patient declined 12/11/2021 Do you [...] and heating? Not hard at all 12/11/2021 [facility] of Occupat ional [facility] - Occupational Stress Questionnaire Answer Date [...] Sign Reading Time Taken Comments Blood Pressure 110/53 02/28/2024 2:45 PM CDT Pulse - - Temperature 36.8 ??C (98.2 ??F) 02/28/2024 2:45 PM CD T Respiratory Rate - - Oxygen Saturation 95% 02/28/2024 2:45 PM CDT Inhaled Oxygen Concentration - - Weight - - Height - - Body Mass Index - - documented in this encounter Plan of Treatment Not on file documented as of this encounter Visit Diagnoses Not on filedocumented in this encounter Additional Health Concerns Infection Onset Date Last Indicated Resolved Time COVID19 Pending 02/29/2024 02/29/2024 02/29/2024 1 1:04 AM CDT documented as of this encounter Care Teams Alliance Consultant Relationship Specialty Start Date End Date Elsewhere, Pcp PCP - General Family Medicine 06/24/18 documented as of this encounter
--- OUTSIDE RECORDS SUMMARY | 2024-03-04 05:17 | XMS_ITS | Encounter Summary ---
Author Organization [facility] Address [address] [place] [address] Care Team Providers Care Bobbin Dumper Name Role Phone Elsewhere, Pcp Primary Care Provider Unavailabl e Encounter Details Date Type Department Care Team (Latest Contact Info) Description 02/02/2024 10:40 AM CDT - 02/02/2024 11:59 PM CDT Hospital Encounter Department of Laboratory Medicine in [place], [place] [address] [facility] [place] [phone] Jose Martin Eaton M.D. 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 Patient declined 12/11/2021 Do you belong to any clubs o r organizations such as baptist groups, unions, fraternal or athletic groups, or [...] and heating? Not hard at all 12/11/2021 [facility] [place] of Occupat ional Health - Occupational Stress [...] Sig Dispensed Refills Start Date End Date acetic acid 0.25 % irrigation (sterile) Irrigate [...] via gastric tube daily as needed (edema). zinc oxide (DESITIN) 13 % cream Apply 1 Application topically as needed (skin cares). Apply to irritated perineal/jennifer-rectal skin. 136 g 03/13/2023 zinc oxide 40 % ointment Apply 1 g topically 2 (two) times a day. Apply to GT site for skin protectant. acetaminophen (TYLENOL) 325 mg tablet 1,000 mg by g-tube route every 6 (six) hours as needed. 02/29/2024 zaleplon (SONATA) 5 mg capsule Take 1 capsule (5 mg total) by mouth See Admin Instructions. Take as needed, if unable to sleep during sleep study. May repeat if needed. Allow a minimum of 4 hours prior to driving after last dose. If drowsy after sleep study do not drive until adequately alert. 2 capsule 07/08/2023 02/29/2024 documented as of this encounter Plan of Treatment Not on file documented as of this encounter Procedures Procedure Name Priority Date/Time Associated Diagnosis Comments CLOBAZAM AND METABOLITE Routine 02/02/2024 11:03 AM CDT [place] Gastaut Syndrome Intractable Without Status Epilepticus (HCC) RUFINAMIDE, S Routine 02/02/2024 11:03 AM CDT 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) HEPATIC FUNCTION PANEL, S Routine 02/02/2024 11:03 AM CDT Medication Therapy Jail Not Anticoagulant FELBAMATE (FELBATOL) LEVEL, S Routine 02/02/2024 11:03 AM CDT 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) LEVETIRACETAM LEVEL, S Routine 02/02/2024 11:03 AM CDT 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) LAMOTRIGINE LEVEL, S Routine 02/02/2024 11:03 AM CDT 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) RETICULOCYTES, B Routine 02/02/2024 11:0 3 AM CDT Medication Therapy Echocardiograph Technician Not Anticoagulant CBC WITH DIFFERENTIAL, B Routine 02/02/2024 11:03 AM CDT Medication Therapy Jail Not Anticoagulant COMPREHENSIVE METABOLIC PANEL, S/P Routine 02/02/2024 11:03 AM CDT Medication Therapy Echocardiograph Technician Not Anticoagulant documented in this encounter Results * Lamotrigine Level (02/02/2024 11:03 AM CDT) [facility] Signature Lamotrigine, S 13.9 3.0 - 15.0 mcg/mL 02/03/2024 9:35 AM CDT [facility] Comment: ----ADDITIONAL INFORMATION---- This test was developed and its performance characteristics determined by [facility] in a manner consistent with CLIA requirements. This test has not been cleared or approved by the U.S. Food and Drug Administration. Blood (Blood, Venous) 02/02/2024 11:03 AM CDT 02/03/2024 7:47 AM CDT Jose Martin R White M.D. LAB BLOOD NON ADD-ON [facility] [address] [place], [place] [address] [facility] [address] [place] [address] [place] [address] * Hepatic Function Panel (02/02/2024 11:03 AM [...] Jose Martin Eaton M.D. LAB BLOOD ADD-ON [facility] [address] [place] [address], [facility] in [place] [address] [place] [address] * (ABNORMAL) CBC with Differential, Blood (02/02/2024 [...] Jose Martin Eaton M.D. LAB BLOOD ADD-ON [facility] [address] [place] [address], [facility] FB60 [facility] in [place] [address] [place] [address] * (ABNORMAL) Felbamate (Felbatol) Level (02/02/2024 11:03 AM CDT) Felbamate (Felbatol), S 145.7(H) 30.0 - 80.0 mcg/mL 02/04/2024 3:14 PM CDT [facility] Comment: ----ADDITIONAL INFORMATION---- This test was developed and its performance characteristics determined by [facility] in a manner consistent with CLIA requirements. This test has not been cleared or approved by the U.S. Food and Drug Administration. Blood (Blood, Venous) 02/02/2024 11:03 AM CDT 02/03/2024 7:41 AM CDT Jose Martin Eaton M.D. LAB BLOOD NON ADD-ON Performing Organization Address City/[facility]/ZIP Co de Phone Number [facility] [address] [place] [address] [facility] [address] [place] [address] [place] [address] * (ABNORMAL) Levetiracetam Level (02/02/2024 11:03 AM CDT) Levetiracetam, S 71.9(H) 10.0 - 40.0 mcg/mL 02/03/2024 11:39 AM CDT [facility] Comment: ----ADDITIONAL INFORMATION---- This test was developed and its performance characteristics determined by [facility] in a manner consistent with CLIA requirements. This test has not been cleared or approved by the U.S. Food and Drug Administration. Blood (Blood, Venous) 02/02/2024 11:03 AM CDT 02/03/2024 7:48 AM CDT Jose Martin Eaton M.D. LAB BLOOD NON ADD-ON Performing Organization Address City/[facility]/ZIP Co de Phone Number [facility] [address] [place] [address] [facility] [address] [place] [address] [place] [address] * Rufinamide, S (02/02/2024 11:03 AM CDT) Rufinamide, S 9.0 5.0 - 30.0 mcg/mL 02/03/2024 1:20 PM CDT [facility] Comment: ----ADDITIONAL INFORMATION---- This test was developed and its performance characteristics determined by [facility] in a manner consistent with CLIA requirements. This test has not been cleared or approved by the U.S. Food and Drug Administration. Blood (Blood, Venous) 02/02/2024 11:03 AM CDT 02/03/2024 7:47 AM CDT Jose Martin Eaton M.D. LAB BLOOD NON ADD-ON [facility] [address] [place] [address] [facility] [address] [place] [address] [place] [address] * (ABNORMAL) Comprehensive Metabolic Panel (02/02/2024 11:03 [...] M.D. LAB BLOOD ADD-ON Performing Organization Address City/[facility]/ZIP Co de Phone Number [facility] [address], [place] [address], [facility] [place] [address], [place] [address] * Reticulocytes (02/02/2024 11:03 AM CDT) Reticulocytes, B 1.76 0.60 - 2.71 % 02/02/2024 3:18 PM CDT [facility] Absolute Reticulocyte 63.7 30.4 - 110.9 x10(9)/L 02/02/2024 3:18 PM CDT [facility] Blood (Blood, Venous) 02/02/2024 11:03 AM CDT 02/02/2024 3:00 PM CDT Jose Martin Eaton M.D. LAB BLOOD ADD-ON Performing Organization Address City/[facility]/ZIP Co de Phone Number [facility] [address] [place] [address], [place] [facility] [address] [place] [address] * (ABNORMAL) Clobazam and Metabolite (02/02/2024 11:03 AM CDT) Clobazam 313.0(H) 30 - 300 ng/mL 02/04/2024 3:01 AM CDT [facility] N-desmethylclobazam >30727(H) 300 - 3000 ng/mL 02/04/2024 3:01 AM CDT [facility] Comment: ----ADDITIONAL INFORMATION---- This test was developed and its performance characteristics determined by [facility] in a manner consistent with CLIA requirements. This test has not been cleared or approved by the U.S. Food and Drug Administration. Blood (Blood, Venous) 02/02/2024 11:03 AM CDT 02/03/2024 2:51 PM CDT Jose Martin Eaton M.D. LAB BLOOD ADD-ON [facility] [address] [place] [address] [facility] [address] [place] [address] [place] [address] documented in this encounter Visit Diagnoses Diagnosis [place] Gastaut Syndrome Intractable Without Status Epilepticus (HCC) Medication Therapy Jail Not Anticoagulant documented in this encounter Care Teams Bobbin Dumper Relationship Specialty Start Date End Date Elsewhere, Pcp PCP - General Family Medicine 06/24/18 documented as of this encounter
--- OUTSIDE RECORDS SUMMARY | 2024-03-04 05:18 | XMS_ITS | Encounter Summary ---
Author Organization [facility] Address [address] [place] [address] Care Team Providers Care Jail Officer Name Role Phone Elsewhere, Pcp Primary Care Provider Unavailabl e Reason for Referral * Outpatient (Routine) - Closed Specialty Diagnoses / Procedures Referred By Valorie copeland Referred To Contact Sleep Medicine Srinath Rodriguez M.D. [address] [place] [phone] Jessy Pisano M.D. [address] [place] [phone] Referral ID Status Reason Start Date Expiration Date Visits Re quested Visits Authorized [id number] Closed 12/27/2023 06/27/2025 1 1 Scheduling Instructions Pre PSG visit Encounter Details Date Type Department Care Team (Late st Contact Info) Description 12/27/2023 Orders Only Center for Sleep Medicine in [place], [place] [address] [place] [phone] Srinath Rodriguez M.D. [address] [place] [phone] Social History Tobacco Use Types Packs/Day Years [...] How often do you attend adventist or gnosticist serv ices? Patient declined 12/11/2021 Do you [...] and heating? Not hard at all 12/11/2021 [facility] [place] of Occupat ional Health - Occupational Stress [...] on filedocumented in this encounter Care Teams Jail Officer Relationship Specialty Start Date End Date Elsewhere, Pcp PCP - General Family Medicine 06/24/18 documented as of this encounter
--- OUTSIDE RECORDS SUMMARY | 2024-03-04 05:18 | XMS_ITS | Encounter Summary ---
Author Organization [facility] Address [address] [place] [address] Care Team Providers Care Linter Tender Name Role Phone Elsewhere, Pcp Primary Care Provider Unavailabl e Encounter Details Date Type Department Care Team (Latest Contact Info) Description 12/29/2023 12:52 PM CDT Anesthesia Event Division of Gastroenterology in [place], [place] [address] [place] [phone] Cruz Edmonds APRN, COTTON CLASSER [address] [place] [phone] Anesthesia Record Procedure Summary Procedure Name Responsible Anesthesiologist Anesthesia Start Time Anesthesia Stop Time EGD ? PERCUTANEOUS ENDOSCOPIC GASTROSTOMY/JEJUNOSTOM Y Cruz Edmonds APRN, COTTON CLASSER 12/29/23 1252 12/29/23 1315 Events Date Time [...] Details Placement Removal Wound 03/12/23; 0900; Y; Unknown; Moisture; Abdomen; Left, Lower; GJ-Tube 03/12/23 0900 by Shanika Tucker R.N., C.W.O.C.N. NG/OG Tube 12/29/23; 1309; Gastrostomy-jejunostomy, Percutaneous endoscopic; Yes; Yes; 10 mL; 22 Fr; 3.5; Left, Lower, Quadrant (abdomen); Small bore (ENFit??) 12/29/23 1309 by Tricia España RHarika. Wound 03/12/23; 0900; Y; Unknown; Incontinence; Groin; to Perineum and Perirectal Area; 02/29/24; 1026; Duplicate LDA 03/12/23 0900 by Shanika Tucker R.N., C.W.O.C.N. 02/29/24 1026 by David Arreaga R.Alice, C.W.C.N. NG/OG Tube 06/10/23; 1318; Percutaneous endoscopic, Gastrostomy-jejunostomy; No; 22 Fr; 4.5 cm; Left, Quadrant (abdomen), Lower; Small bore (ENFit??); 12/29/23; 1309 06/10/23 1318 by Rowdy Chandler RMayNMay 12/29/23 1309 by Tricia España R.Alice Peripheral IV Placement Date: 12/12 01/04; Placement Time: 175; Catheter Size: 20 G; Orientation: Anterior, Right; Site Prep: Chlorhexidine (Preferred); Technique: Anatomical landmarks; Insertion Attempts: 4; Removal Date: 12/30/23; Removal Time: 1144 12/26/23 175 by Blade Mathis, R.NMay 12/30/23 1144 by Tong Gilbert, R.NMay Peripheral IV Placement Date: 12/12 02/03; Placement Time: 000; Catheter Size: 20 G; Orientation: Anterior, Lower, Right; Location: Forearm; Site Prep: Chlorhexidine (Preferred); Technique: Ultrasound guidance; Inserted by: kmb; Insertion Attempts: 1; Removal Date: 12/30/23; Removal Time: 1144; Removal Reason: Patient discharged 12/27/23 000 by Pebbles Avelar R.N. 12/30/23 1144 by Tong Gilbert RHarika. Airway Adjuncts Placement Date: 12/12 03/06; Placement Time: 1504; Non-Surgical Airway Device: Nasal pharyngeal airway; Airway Size: 6.5; Removal Date: 02/28/24; Removal Time: 15412/28/23 1504 by Jenny Middleton, R.R.T., L.R.T. 02/28/24 1549 by Paula Cruz, R.R.T., L.R.T. documented in this encounter Social History Tobacco [...] declined 12/11/2021 How often do you attend jewish or samaritan serv ices? Patient declined 12/11/2021 Do you belong to any clubs o r organizations such as jewish groups, unions, fraternal or athletic groups, or [...] and heating? Not hard at all 12/11/2021 [facility] of Occupat ional Health - Occupational [...] Room / Location: Division of Gastroenterology in [place], [place] Anesthesia Start: 1252 Anesthesia Stop: 131 Procedure: EGD - PERCUTANEOUS ENDOSCOPIC GASTROSTOMY/JEJUNOSTOMY Diagnosis: Scheduled Providers: Cosme Hutchinson M.D., M.H.P.E. Responsible Provider: Cruz Edmonds APRN, CRNA Anesthesia Type: MAC ASA Status: [...] Start Date/Time: 12/29/23 1252 Scheduled providers: Cosme Hutchinson M.D., M.H.P.E. Procedure: EGD - PERCUTANEOUS ENDOSCOPIC GASTROSTOMY/JEJUNOSTOMY Location: Division of Gastroenterology in [place], [place] Pertinent components of the patient's history [...] with patient /legal guardian or through an bead filler. The use of blood products not discussed [...] CDT documented in this encounter Care Teams Linter Tender Relationship Specialty Start Date End Date Elsewhere, Pcp PCP - General Family Medicine 06/24/18 documented as of this encounter
--- OUTSIDE RECORDS SUMMARY | 2024-03-04 05:18 | XMS_ITS | Encounter Summary ---
Author Organization [facility] Address [address] [place] [address] Care Team Providers Care Labor Supervisor Name Role Phone Elsewhere, Pcp Primary Care Provider Unavailabl e Reason for Visit * Reason Comments Fever J-tube fell out Altered Mental Status Encounter Details Date Type Department Care Team (Latest Contact Info) Description 12/26/2023 4:16 PM CDT - 12/30/2023 12:14 PM CDT Hospital Encounter [facility], [facility], [facility], Sixth Floor [address] [place] [phone] Jamia Lozano M.D. [address] [place] [address] [phone] Andria Shaffer M.B.B.S., M.D. [address] [place] [phone] Wes Person M.B.B.S. [address] [place] [address] [phone] Feliciano Alejandre M.D., Ph.D. [address] [place] [phone] Pneumonia (Primary Dx); Sepsis (HCC); Aftercare [...] declined 12/11/2021 How often do you attend christian or yazidi serv ices? Patient declined 12/11/2021 Do you belong to any clubs o r organizations such as christian groups, unions, fraternal or athletic groups, or [...] heating? Not hard at all 12/11/2021 [facility] of Occupat ional Health - Occupational Stress [...] AM CDT DISCHARGE SUMMARY BRIEF OVERVIEW Hospital: [facility] Discharge Provider: Feliciano Alejandre M.D. Primary Team: T [facility] Medicine 3 Primary Care Providers: Elsewhere, Pcp (General) No address on file Primary Care Provider Phone Number: None Primary Care Provider Fax Number: None Admission Date: 12/26/2023 Discharge Date: 12/30/2023 PRINCIPAL DIAGNOSIS Aspiration Pneumonia Secondary to Procedure SECONDARY DIAGNOSES Principal Problem: Aspiration Pneumonia Secondary to Procedure Active Problems: Leukemia Lymphocytic Acute Remission (HCC) Seizure (HCC) Newcastle Gastaut Syndrome (HCC) Dysphagia Reflux Esophageal Nephrolithiasis [...] related to tube site or tube call [phone] Wednesday - Wednesday 7;30 am-4:30 pm or after hours, weekends, holidays call [facility] pusher operator [phone] ask them to page [phone] and wait for MD to answer. May need to repeat call if they don't answer they could be busy doing procedure. Sleep medicine follow up has been arranged Strongly recommend PCP follow up within 1 week OUTPATIENT FOLLOW UP Scheduled Appointments 01/12/2024 9:30 AM Jessy Pisano M.D. Sleep Medicine For appointment details refer [...] aspiration pneumonia. Past medical history significant for Newcastle-Gastaut syndrome, ALL (age 20 months, s/p chemoradiation), [...] no other acute intra-abdominal findings. Medicine 6: BUSINESS CONSULTANT was called overnight on 12/26/2023 for increased [...] related to tube site or tube call [phone] Wednesday - Wednesday 7;30 am-4:30 pm or after hours, weekends, holidays call [facility] pusher operator [phone] ask themto page [phone] and wait for MD to answer. May need to repeat call if they don't answer they could be busy doing procedure. Intranasal naloxone has been prescribed and sent to your pharmacy. * Patient Instructions* Imelda Judge M.S., [facility]-TELEPHONE ENGINEER - 12/30/2023 11:38 AM CDT SPEECH PATHOLOGY DISCHARGE SUMMARY DIAGNOSIS: Moderate oral stage dysphagia, pharyngeal stage [facility] SPEECH PATHOLOGY TREATMENT COURSE: Mr. Hilario was [...] provided on 12/30/2023 by Imelda Judge M.S., CCC-TELEPHONE ENGINEER Should you have questions/concerns regarding Speech Pathology services received during this hospitalization please contact: [facility], Department of Neurology, . * Discharge Instr - Diet* Anastasiya Davalos RDN, LD, M.P.H. - 12/30/2023 11:28 AM CDT NUTRITION Date completed: 12/30/2023 Oral diet: Per TELEPHONE ENGINEER Feeding tube information: Transgastric Jejunal 22 [place] Who placed the tube: [place] [address] Date of tube placement: December 29, 2023 [...] 28.8 kg/m?? Estimated Needs: Total Calorie Needs: 1935-7076 calories/day Method to Estimate Energy Needs: kcal/kg [...] mL every 4 (four) hours as needed. doxycycline monohydrate (ADOXA) 100 mg tabletIndications:Res piratory tract infection, community acquired Administer 1 tablet (100 mg total) via gastric tube 2 (two) times a day before breakfast and dinner for 2 doses Indications: Respiratory tract infection, community acquired. 2 tablet 12/30/2023 12/31/2023 felbamate (FELBATOL) 600 mg/5 mL suspension Take [...] 07/08/2023 02/29/2024 documented as of this encounter Progress Notes [...] to goal rate. VFSS scheduled today with TELEPHONE ENGINEER. GI Tubes (Adults) Gastrostomy-jejunostomy;Percutaneous endoscopic 22 Fr [...] movement documented was 12/29; type 6 per cruller maker. Estimated Needs: Calories: 0214-2585 calories/day Method to Estimate Energy Needs: kcal/kg [...] about patient's nutritional care please contact pager [phone] on weekdays 07:30-16:00 or [phone] on weekends/holidays. * Little Johnson M.D. 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 * Breanna Alicea, RDN, LD - 12/29/2023 8:41 AM CDT [...] 12/27/23 0134 12/27/23 0134 12/26/23 2350 12/26/23 8769 SODIUM P mmol/L -- -- -- -- [...] movement documented was 12/28; type 6 per cruller maker. Estimated Needs: Calories: 4109-3430 calories/day Method to Estimate Energy Needs: kcal/kg [...] about patient's nutritional care please contact pager [phone] on weekdays 07:30-16:00 or [phone] on weekends/holidays. * Little Johnson M.D. 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 - 12/29/2023 6:23 AM CDT T [facility] Medicine 3 Progress Note SUBJECTIVE Brief Summary: Say Hilario is a 43 y.o. male admitted on 12/26 for aspiration pneumonia. BUSINESS CONSULTANT'd to ICU for AMS.PMH significant for Ayaan-Gastaut syndrome, developmental delay (non verbal at baseline), chronic G-tube (placed age 10, converted to GJ tube 2019), recurrent seizures (1-4 seizures daily, on Kepp ra/Lamictal/Clobazam/ felbamate/rufinamide), CHEKO on nocturnal 1 L O2. Interval Events: Patient received 2 mg dilaudid yesterday for pain control, as the patient had increased BP and heart rate. At home he takes Woodbury (10 mg hydrocodone/acetaminophen). Patient became difficulty to [...] and heart rate. At home he takes Woodbury (10 mg hydrocodone/acetaminophen). Patient became difficulty to arouse with decreased respiratory rate. He received 5 doses of Narcan before Narco drip was initiated. There was a subsequent improvement in respiratory status with pC02 improved from of 62 to 50. He is planned for GJ tube exchange and video swallow study today. Plan for Today GJ tube exchange Video swallow study, Epilepsy Consult Newcastle-Gastaut syndrome # Developmental delay (non verbal at [...] Pain management: Tylenol 100 mg q8h PRN Woodbury 10-325 q6h PRN Baclofen 20 mg 4x [...] level of cares. * Imelda Judge M.S., [facility]-TELEPHONE ENGINEER - 12/28/2023 3:30 PM CDT TELEPHONE ENGINEER attempted to initiate clinical swallow evaluation. Mr. [...] tube exchange. Please page Imelda Judge M.S., CCC-TELEPHONE ENGINEER with questions or concerns at [phone] Mon-Fri or Speech Pathology Service Pager: Dysphagia [phone] Sat/Sun. * Breanna Alicea RDN, LD - 12/28/2023 8:58 AM CDT Nutrition Care Plan Follow Up Clinical Nutrition continuing to follow patient requiring nutrition support. ASSESSMENT Tube feeds initiated 12/26; advancing towards goal per protocol. TELEPHONE ENGINEER attempted evaluation yesterday but pt was very [...] BM charted during admission Estimated Needs: Calories: 8615-0168 calories/day Method to Estimate Energy Needs: kcal/kg [...] about patient's nutritional care please contact pager [phone] on weekdays 07:30-16:00 or [phone] on weekends/holidays. * Little Johnson M.D. 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 Yesterday, his mom was hoping for a [...] M.D. - 12/28/2023 6:09 AM CDT RST [facility] Medicine 3 Progress Note SUBJECTIVE Brief Summary: Say Hilario is a 43 y.o. male admitted on 12/26 for GJ tube dislodgement, fever, diarrhea, and increased somnolence. BUSINESS CONSULTANT'd to ICU for AMS. PMH significant for Newcastle-Gastaut syndrome, developmental delay (non verbal at baseline), [...] Miralax and senna Tylenol prn for pain Ayaan-Gastaut syndrome # Developmental delay (non verbal [...] Pain management: Tylenol 100 mg q8h PRN Woodbury 10-325 q6h PRN Baclofen 20 mg 4x [...] PM CDT SUBJECTIVE Patient is in of [address], [address] HISTORY OF PRESENT ILLNESS [...] (HCC) #4 Jejunostomy Status Post (HCC) #5 Newcastle Gastaut Syndrome (HCC) #6 Leukemia Lymphocytic Acute [...] management BILLING: Margin Code: SH3 * Imelda uJdge M.S., CCC-TELEPHONE ENGINEER - 12/27/2023 11:26 AM CDT TELEPHONE ENGINEER received orders to evaluate Mr. Hilario's swallow [...] swallow evaluation. Please page Imelda Judge M.S., CCC-TELEPHONE ENGINEER with questions or concerns at [phone] Mon-Fri or Speech Pathology Service Pager: Dysphagia [phone] Sat/Sun. * Rosanna Joiner Pharm.D., R.Ph. - [...] times a day as needed (seizures). Notes: Jj--Franklin kvrsvhjddtuvxcn-ampowmvki-iirsouc (MAGIC MOUTHWASH) 1:1:1 More than a month [...] male admitted 12/26/2023.GJ tube dislodgement, fever, diarrhea. BUSINESS CONSULTANT for somnolence PMH: Newcastle-Gastaut syndrome, ALL (age 20 months, s/p chemoradiation), developmental delay (non verbal at baseline), chronic G-tube (placed age 10, converted to GJ tube 2019), lateral medullary stroke (age 12), recurrent seizures (1-4 seizures daily), CHEKO on nocturnal 1 L O2, urosepsis 02/2023 in the setting of UTI with left obstructing ureteral stone s/p ureteral stent placement. Home meds: reviewed by [facility] ASSESSMENT and PLAN: Neuro: mentation back to BL, nonverbal of BL - resumed relief captain felbamate, clobazam, lamotrigine, levetiracetam, epidiolex, rufinamide [...] ID: Afeb, mild WBC. CAP coverage with MAINTENANCE PAINTER and doxy. Noted PCN allergy but appears [...] CCM 3 Progress Note SUBJECTIVE Brief Summary: Sya Hilario is a 43 y.o. male admitted on 12/26 for GJ tube dislodgement, fever, diarrhea, and increased somnolence. BUSINESS CONSULTANT'd to ICU for AMS. PMH significant for Newcastle-Gastaut syndrome, developmental delay (non verbal at baseline), chronic G-tube (placed age 10, converted to GJ tube 2019), recurrent seizures (1-4 seizures daily, on Keppra/Lamictal/Clobazam/felbamate/rufinamide), CHEKO on nocturnal 1 L O2. Edited by: Pedro Pablo Kline M.D. at 12/27/2023 0702 Interval Events: BUSINESS CONSULTANT'd due to Somnolence, appeared to be at [...] 67.8 kg (12/27/2023 9:01 AM) I/Os I/O 12/24 04/15 0000 04/15 2359 Enteric (NG/OG) Tube 75 Intermittent Medications 100 [...] increased somnolence with concern for aspiration pneumonia. BUSINESS CONSULTANT'd to ICU for AMS. Summary 12/26: Mr. [...] floor today. PLAN BY SYSTEMS: NEUROLOGICAL: # Newcastle-Gastaut syndrome # Developmental delay (non verbal at [...] Pain management: Tylenol 650 mg q6h PRN [place]bury 10-325 q6h PRN Baclofen 20 mg 4x [...] See ID for ABX, concern for aspiration/CAP. TELEPHONE ENGINEER consult for concern of aspiration. Sleep medicine [...] with GI. Recommended placing inpatient order and is manager will look at availability. 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 - 12/27/2023 12:43 AM CDT Patient is a 43 y.o. male admitted on 12/26/2023 2331- RT responded to BUSINESS CONSULTANT call for somnolence. Patient on a 2L [...] at baseline and at time of the BUSINESS CONSULTANT the snoring and breathing pattern were at [...] with a past medical history significant for Newcastle-Gastaut syndrome, ALL (age 20 months, s/p chemoradiation), [...] presented to the emergency department. ED Course: [facility] Vitals: Afebrile, HR 90-100s, BP [...] emergency department, able to replace G J-tube. BUSINESS CONSULTANT was called for increased somnolence. On arrival, [...] mg (CLARITIN) 10 mg, oral, Daily Ordered fdolvvpvutsl-uuki-PR-Ca-minerals 400 mcg (folic acid) tablet 1 tablet [...] Syndrome 02/17/2010 Camphor Other (see comments) 12/20/2010 Wenszaq-vmybxboinz-jwbjpbf Other (see comments) 12/01/2020 Cefaclor Other (see comments) 02/17/2010 Euc avp-sqao-ubo,rosem oils-pt Rash 05/14/2022 Levofloxacin Rash 05/14/2022 Petrolatum [...] with a past medical history significant for Newcastle-Gastaut syndrome, ALL (age 20 months, s/p chemoradiation), [...] setting of his vomiting episode. He was BUSINESS CONSULTANT'd to the MICU for concerns of increased [...] Tylenol prn for fevers and pain. Home Woodbury 10-325 Q6H PRN, Baclofen (20 mg fourtimes [...] likely related to a drug reaction. - TELEPHONE ENGINEER consult - Will email sleep physician Dr. [...] If any questions arise, please page the [facility] 3 service pagerat [phone]. Adia Samuel M.D. PGY-2 #[id number] * Wes Person M.B.BMayS. 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 He was brought to the [...] initial presentation and repositioned in ER #3 Newcastle-Gastaut syndrome with recurrent seizures #4 Severe cognitive [...] Grier M.D. - 12/27/2023 12:[address] [facility] Medicine 6 ([facility]) Admission Note SUBJECTIVE 43 year-old male with [...] and other co-morbidities.. He presented to the [facility] ED with 1-day complaint of subjective [...] mg) was ordered to the bedside, An BUSINESS CONSULTANT was activated, because he did not appear [...] stayawake or take adequate depths of breaths.The BUSINESS CONSULTANT members also attempted to wake him up [...] (three) times a day as needed (seizures). iuszwgvbpoxztap-tozvcnaoe-xzlwhkf (MAGIC MOUTHWASH) 1:1:1, Swish and spit 15 [...] the disruption in administration. #7 History of Newcastle-Gastaut syndrome #8 Recurrent seizure activity with intermittent [...] Disposition: Home with Home Health Discussed with BUSINESS CONSULTANT Team I personally spent a total of 75 min + 60 minutes of BUSINESS CONSULTANT time minutes providing and coordinating care today. [...] encounter Consult Notes * Imelda Judge M.S., [facility]-TELEPHONE ENGINEER - 12/30/2023 9:15 AM CDT Images from the original note were not included. Speech Pathology Dysphagia Videofluoroscopic Swallow Study (VFSS) Outpatient Session Type: Evaluation Length of session: 30 minutes SUBJECTIVE Referred By: RST [facility] Medicine 3 Reason for Consult: Dysphagia History: Mr. Hilario was seen for a clinical swallow evaluation yesterday and this VFSS was arranged for today. Please see yesterday's TELEPHONE ENGINEER consult note for history. Pain Patient does [...] care to reduce oral bacteria as able TELEPHONE ENGINEER will follow while hospitalized Discharge Location: Home TELEPHONE ENGINEER Ongoing Services: Ongoing formal Speech Pathology services Duration of Treatment: until goals are met * Erika Scruggs CCC-TELEPHONE ENGINEER - 12/29/2023 10:35 AM CDT Speech Language Pathology Dysphagia Evaluation- Acute Care Session Type: Evaluation Length of session: 10 minutes Time of Dysphagia Session: 1035 SUBJECTIVE Referred By: RST [facility] Medicine 3 History: Mr. Hilario is a 43 y.o. male who was admitted to [facility] on 12/26/2023 due to fever andJ-tube becoming dislodged. There is concern for aspiration PNA. His history is significant for Newcastle-Gastaut syndrome, developmental delay, prior L medullary stroke [...] afternoon. This is now scheduled for 12/30/23 [id number] with further recommendations to follow. His parents expressed excellent understanding. Goals: Dysphagia Shelter Goal Dysphagia Manufacturing Project Engineer Goal: Patient will tolerate least restrictive diet without overt s/s suggestiveof aspiration Dysphagia Manufacturing Project Engineer Goal Progress Toward Goal: Progress toward goal [...] assessment Plan DYSPHAGIA RECOMMENDATIONS: Video swallow study 4/118/24 at 0915 TELEPHONE ENGINEER will follow. Please page [phone] M-F or [phone] on weekends/holidays with questions or concerns. Discharge Location: Home TELEPHONE ENGINEER Ongoing Services: Ongoing formal Speech Pathology services Duration of Treatment: until goals are met Speech Pathology Service Pager: Dysphagia [phone] Speech Pathology Service Pager: Communication [phone] [place] Rothman, CCC-TELEPHONE ENGINEER, CBIS * Pebblse Shaikh, Judy.S.W., M.S.W. - 12/27/2023 2:20 PM [...] Selected Services Address Phone Fax Patient Preferred [facility] [address] [place] [address] [phone] -- Contact: Jesica NURSING: - Complete documentation in the Discharge Navigator including Nursing Report Info and Facility/NextLevel of Care Info - Call report and arrange for the patient???s first visit. - Send required packet of dismissal information with patient, including After Visit Summary and advance directive. PRIMARY SERVICE: - Please provide a non-[facility] health order for resumption of previous services [...] Selected Services Address Phone Fax Patient Preferred [facility] Durable Medical Equipment [address] [facility] [phone] -- Contact: Intake Respiratory Equipment : [...] setting of his vomiting episode. He was BUSINESS CONSULTANT'd to the MICU for concerns of increased somnolence. Past medical history includes but is not limited to: Newcastle-Gastaut syndrome, ALL (age 20 months, s/p chemoradiation), [...] changes noted. Estimated Needs: Total Calorie Needs: 0133-1800 calories/day Method to Estimate Energy Needs: kcal/kg (15-20 kcal/kg) Weight Used for Equation Calculations: 67.8 kg Total Protein Needs: 81 - 102 grams/day (Method to Estimate Protein Needs (g/kg): 1.2 - 1.5 gm/kg) Weight Used to Calculate Protein Needs (Kg): 67.8 kg Nutrition Diagnosis: Inadequate oral intake related to dysphagia as evidenced by computer terminal operator dependence on supplemental enteral feeds to meet [...] about patient's nutritional care please contact pager [phone] on weekdays 07:30-16:00 or [phone] on weekends/holidays. Addendum At 1412: RDN was [...] Duenas M.D. - 12/26/2023 11:42 PM CDT BUSINESS CONSULTANT EVALUATION REASON FOR BUSINESS CONSULTANT: Increased somnolence SUBJECTIVE SUMMARY OF SITUATION Say [...] in the ED approximately 5 hours prior. BUSINESS CONSULTANT was called in this setting. On arrival by the BUSINESS CONSULTANT team, the patient is somnolent as above. [...] him awake). MEDICAL COMORBIDITIES Brainstem stroke syndrome, Newcastle-Gastaut syndrome and difficult to control seizures, recent [...] U Negative Ketone, POCT, U Negative Specific [place], POCT, U 1.015 Blood, POCT, U Negative [...] Influenza A/B, SARS CoV-2, PCR, Rapid Symptomatic [[id number]] Collected: 12/26/23 1950 Lab Status: Final result [...] at the following links: For Healthcare Providers: https://www.fda.gov/media/455766/download For Patients: https://www.fda.gov/media/518655/download Infl A/B, SARS CoV-2, PCR, Source Swab, Nasopharynx Bacterial Culture, Aerobic + Susceptibility, Urine [[id number]] Collected: 12/26/23 193 Lab Status: In process Specimen: Urine, Midstream Updated: 12/26/232035 Bacteria / Christopher Culture, Blood #2 [[id number]] Collected: 12/26/23 180 Lab Status: In process Specimen: Blood, Peripheral Draw Updated: 12/26/231816 Narrative: Received Bactec aerobic and Bactec anaerobic bottles Specimen Information: Specimen ID: [id number] Specimen Source: Blood, Peripheral Draw Specimen Comment: Specimen Source Site: Blood Specimen Collection Start Date: 12/26/2023 6:06 PM Specimen Received Date: 12/26/2023 6:17 PM Specimen ID: [id number] Specimen Source: Blood, Peripheral Draw Specimen Comment: Specimen Source Site: Blood Specimen Collection Start Date: 12/26/2023 6:06 PM Specimen Received Date: 12/26/2023 6:17 PM Specimen ID: [id number] Specimen Source: Blood, Peripheral Draw Specimen Comment: Specimen Source Site: Blood Specimen Collection Start Date: 12/26/2023 6:06 PM Specimen Received Date: 12/26/2023 6:17 PM Bacteria / Christopher Culture, Blood #1 [[id number]] Collected: 12/26/231749 Lab Status: In process Specimen: Blood, Peripheral Draw Updated: 12/26/231816 Narrative: Received Bactec aerobic and Bactec anaerobic bottles Specimen Information: Specimen ID: [id number] Specimen Source: Blood, Peripheral Draw Specimen Comment: Specimen Source Site: Blood Specimen Collection Start Date: 12/26/2023 5:50 PM Specimen Received Date: 12/26/2023 6:17 PM Specimen ID: [id number] Specimen Source: Blood, Peripheral Draw Specimen Comment: Specimen Source Site: Blood Specimen Collection Start Date: 12/26/2023 5:50 PM Specimen Received Date: 12/26/2023 6:17 PM Specimen ID: [id number] Specimen Source: Blood, Peripheral Draw Specimen Comment: Specimen Source Site: Blood Specimen Collection Start Date: 12/26/2023 5:50 PM Specimen Received Date: 12/26/2023 6:17 PM ASSESSMENT / PLAN BUSINESS CONSULTANT ASSESSMENT Say Hilario is a 43 y.o. male who presented with fever, diarrhea, partial dislodgment of GJ tube, found to have pneumonia in the ED. Medical comorbidities are notable for brainstem stroke syndrome, Ayaan-Gastaut syndrome and difficult [...] STATUS: Full Code Disposition discussed with eICU quality assurance consultant, Dr. Booth. Recommendations and disposition discussed with primary team and bedside nurse who are in agreement. Thank you for this consultation. Ravi Duenas M.D. Internal Medicine PGY-3 Pager [phone] documented in this encounter Nursing Notes * [...] CDT Under the direction of Heidi Rock BUSINESS CONSULTANT * Africa Winkler RMayN. - 12/29/2023 1:18 PM CDT PEG/PEJ Nursing Procedure Note ASSESSMENT / PLAN Patient Name: Say Hilario Department : [facility] SIXTH FLOOR SUBJECTIVE Past Medical History: Diagnosis [...] URETER; Surgeon: Ermias Young M.D., M.P.H.; Location: [facility] EXCHANGE URETERAL STENT Left 04/05/2023 Procedure: EXCHANGE URETERAL STENT.; Surgeon: Bi Rivera M.D.; Location: [facility] OR OTHER SURGICAL HISTORY N/A Gastrocnemius recession (eg, Maren procedure).. RETROGRADE PYELOGRAM Left 04/05/2023 Procedure: RETROGRADE PYELOGRAM; Surgeon: Bi Rivera M.D.; Location: [facility] OR SINUS SURGERY 1987 URETEROSCOPY WITH LASER LITHOTRIPSY Left 04/05/2023 Procedure: URETEROSCOPY WITH LASER LITHOTRIPSY.; Surgeon: Bi Rivera M.D.; Location: [facility] OR Social History Socioeconomic History Marital status: [...] Year: No OBJECTIVE Procedure Patient presents to [facility] 6 Patient being seen for: TGJ Type [...] Learning preference: Listening Education: PEG/PEJ Wallet Card ([id number]) Exchanged without sedation. Stoma was measured for [...] the direction of Ermias May R.R.T., TezRMayTMay, BUSINESS CONSULTANT-ACCS * Jb Valencia RHarika. - 12/28/2023 7:19 PM CDT Problem: SAFETY [...] AM CDT * Ermias May R.R.T., TezR.TMay, BUSINESS CONSULTANT-ACCS - 12/28/2023 6:04 AM CDT Patient is a 43 y.o. male admitted on 12/26/2023 Principal Problem: Aspiration Pneumonia Secondary to Procedure PMH: Past Medical History: Diagnosis Date Apnea Sleep Obstructive Chronic Kidney Disease NOS Complication Anesthesia Initial Dermatitis 2016 Dysphagia Gastroesophageal Reflux Disease NOS 1984 Intellectual Disability Profound 12/01/2020 Leukemia 1981 Pneumonia [...] the last 24hours. Ermias May R.R.T., TezRMayTMay, BUSINESS CONSULTANT-ACCS 12/28/23 6:04 AM CDT * Carine Lopez [...] CDT Under the direction of Say Swartz BUSINESS CONSULTANT * Mariana Marsh M.S.N., R.N. - 12/27/2023 [...] and his hands were cool tothe touch. BUSINESS CONSULTANT initiated, see subsequent note and orders. documented [...] the right foot. ED Course as of 12/26/23 2315 Sun Dec 26, 20231947 Leukocytes: 9.4 1947 [...] Acidosis Lactic Jamia Lozano M.D. 12/26/232314 * SmithPaul - 12/26/2023 5:59 PM CDT SUBJECTIVE CHIEF [...] history of intellectual disability, brainstem stroke syndrome, Newcastle-Gastaut syndrome who presents with 3 days of [...] came back out seconds later. Roomed in C17 Chiquita Motta R.N. 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 Thank you, Lan Kumar., M.H.Fabien., R.NMay, CCDS Clinical Documentation Horseradish Grinder Query created by: Charlie Kumar, Ct, RJuli, CCDS 12/30/2023 11:34 AM CDT </LCI> * Hospital Course - Ralph Neil M.D. - 12/27/2023 4:34 AM CDT Say Hilario is a 43 y.o. male admitted on 12/26 for GJ tube dislodgement, fever, diarrhea, and increased somnolence with concern for aspiration pneumonia. Past medical history significant for Newcastle-Gastaut syndrome, ALL (age 20 months, s/p chemoradiation), [...] no other acute intra-abdominal findings. Medicine 6: BUSINESS CONSULTANT was called overnight on 12/26/2023 for increased [...] CDT Ralph Neil M.D. LAB BLOOD ADD-ON [facility] [address] [place] [address], [facility] DTL [facility] [address] [place] [address] * (ABNORMAL) CBC with Differential, Blood (12/30/2023 [...] CDT Ralph Neil M.D. LAB BLOOD ADD-ON [facility] [address] [place] [address], [facility] DTL [facility] [address] [place] [address] [facility] [address] [place] [address] * Non-Endoscopic Tube Procedure (12/29/2023 1:23 PM CDT) 12/29/2023 1:23 PM CDT Impressions [facility] - 12/29/2023 1:52 PM CDT Post-op Diagnoses: ? - The PEG-J tube was dislodged and was removed and replaced with a 3.5 ? cm long, 22 Fr Avanos FARIHA-SMALL Low-profile PEG-J gastrostomy tube. ? - No specimens collected. Narrative [facility] - 12/29/2023 1:52 PM CDT Gary 6 [...] to tube site or tube call ? [phone] Wednesday - Wednesday 7;30 am-4:30 pm or after hours, weekends, ? holidays call [facility] pusher operator [phone] ask them to page ? [phone] and wait for MD to answer. May [...] 3.5cm long. A 3.5cm long, 22 Fr woohoo mobile marketings FARIHA-SMALL ? Low-profile PEG-J tube was lubricated [...] GI PROCEDURE ORDERAB LES Performing Organization Address [facility]/ZIP Co de Phone Number MAE PROVATION NA * FL Fluoro Less Than 1 Hour (12/29/2023 1:19 PM CDT) Narrative [facility] LOS RST - 12/29/2023 1:20 PM CDT This exam does not require a radiologist review or interpretation. Please refer to the patient's medical record on this date for clinical details. Pedro Pablo Kline M.D. IMG FLUOROSCOPY PROC EDURES Performing Organization Address [facility] Co de Phone Number ERCP [...] CDT Ralph Neil M.D. LAB BLOOD ADD-ON [facility] [address] [place] [address], [facility] [address] [address] * (ABNORMAL) CBC with Differential, Blood (12/29/2023 4:01 AM CDT) Pathologist [facility] Hemoglobin 11.1(L) 13.2 - 16.6 g/dL 12/29/2023 [...] CDT Ralph Neil M.D. LAB BLOOD ADD-ON [facility] [address] [place], [place] [id number] [place] [address] DTL [facility] [address] [place] [address] DHPM [facility] [address] [place] [address] * Patient Status (12/28/2023 11:11 PM CDT) [facility] Signature O2 Flow 2.0 L/min 12/28/2023 11:15 PM CDT [facility] Device NC 12/28/2023 11:15 PM CDT [facility] Spont. breaths/min 19 12/28/2023 11:15 PM CDT [facility] Blood 12/28/2023 11:1 1 PM CDT 12/28/2023 11:15 PM CDT Adia Samuel M.D. LAB BLOOD NON AD D-ON [facility] [address] [place], [place] [id number] [place] [address] STMA [facility] [address] [place] [address] * (ABNORMAL) Blood Gas without Coox, Venous [...] Samuel M.D. LAB BLOOD NON AD D-ON [facility] [address] [place] [address], [facility] [address] [place] [address] * Patient Status (12/28/2023 4:39 PM CDT) O2 Flow 2.0 L/min 12/28/2023 4:45 PM CDT [facility] Device NC 12/28/2023 4:45 PM CDT [facility] Spont. breaths/min 10 12/28/2023 4:45 PM CDT [facility] Blood 12/28/2023 4:39 PM CDT 12/28/2023 4:45 PM CDT Ralph Neil M.D. LAB BLOOD NON ADD- ON [facility] [address] [place] [address], [facility] STMA [facility] [address] [place] [address] * (ABNORMAL) Blood Gas with Coox, Venous (12/28/2023 4:39 PM CDT) Pathologist [facility] pO2, Venous, B 77 Not applicable mm [...] Neil M.D. LAB BLOOD NON ADD- ON [facility] [address] [place] [address], [facility] [address] [place] [address] * (ABNORMAL) Venous Blood Gas and Electrolytes CG8+, POCT (12/28/2023 3:19 PM CDT) [facility] Sample Site, POCT Venstick 12/28/2023 3:26 PM [...] ORD ERABLES - DEVICE Performing Organization Address [facility] Co de Phone Number POC [facility] [address] [place] [address], [facility] PCLX [facility] [address] [place] [address] PCSM [facility] POC [address] [place] [address] * EEG (12/28/2023 7:29 AM CDT) Narrative [...] Kline M.D. NEUROLOGY ORDERABLES Performing Organization Address [facility] Co de Phone Number MMODAL NA * [...] CDT Adia Samuel M.D. LAB BLOOD ADD-ON [facility] [address] [place] [address], [place] DTL [facility] [address] [place] [address] [facility] [address] [place] [address] * (ABNORMAL) Basic Metabolic Panel (12/28/2023 6:42 AM CDT) [facility] Potassium, S 3.8 3.6 - 5.2 mmol/L [...] CDT Adia Samuel M.D. LAB BLOOD ADD-ON [facility] [address] [place] [address], [facility] [address] [place] [address] * Glucose, POCT (12/28/2023 6:26 AM CDT) Glucose, POCT, B 97 70 - 140 mg/dL 12/29/2023 3:30 PM CDT PCLX Site Capillary 12/29/2023 3:30 PM CDT PCLX Last Intake ContTubFdg 12/29/2023 3:30 PM CDT PCLX Blood 12/28/2023 6:26 AM CDT 12/29/2023 3:30 PM CDT Unknown Provider LAB POCT ORDERABLES- MANUAL Performing Organization Address City/[facility] Co de Phone Number POC [facility] [address] [place] [address], [place] PCLX [facility] POC [address] [place] [address] * ECG 12 Lead (12/27/2023 2:34 PM CDT) Ventricular Rate ECG/Min 95 BPM MUSE IL Interval 150 ms MUSE QRSD Interval 96 ms MUSE QT Interval 358 ms MUSE QTC Interval 449 ms MUSE P Custer 19 degrees MUSE R Custer -4 degrees MUSE T Wave Custer 84 degrees MUSE 12/27/2023 2:34 PM CDT [...] Kline M.D. ECG ORDERABLES Performing Organization Address City/[facility] Co de Phone Number MUSE NA * Patient Status (12/27/2023 2:33 PM CDT) FIO2 0.21 0.21=AIR 12/27/2023 2:37 PM CDT STMA Spont. breaths/min 14 12/27/2023 2:37 PM CDT STMA Blood 12/27/2023 2:33 PM CDT 12/27/2023 2:37 PM CDT Pedro Pablo Kline M.D. LAB BLOOD NON ADD-ON [facility] [address] [place] [address], [facility] STMA [facility] [address] [place] [address] * (ABNORMAL) Blood Gas with Coox, Venous [...] Pablo Kline M.D. LAB BLOOD NON ADD-ON [facility] [address] [place] [address], [facility] [address] [place] [address] * Patient Status (12/27/2023 10:30 AM CDT) Pathologist [facility] FIO2 0.21 0.21=AIR 12/27/2023 10:33 AM CDT STMA Spont. breaths/min 13 12/27/2023 10:33 AM CDT [facility] Blood 12/27/2023 10:3 0 AM CDT 12/27/2023 10:33 AM CDT Pedro Pablo Kline M.D. LAB BLOOD NON ADD-ON [facility] [address] [place] [address], [facility] [address] [place] [address] * Blood Gas without Coox, Venous (12/27/2023 [...] Pablo Kline M.D. LAB BLOOD NON ADD-ON [facility] [address] [place] [address] * Lactate (12/27/2023 10:29 AM CDT) Pathologist [facility] Lactate, P 0.6 0.5 - 2.2 mmol/L 12/27/2023 10:47 AM CDT STMA Blood (Blood, Venous) 12/27/2023 10:29 AM CDT 12/27/2023 10:33 AM CDT Pedro Pablo Kline M.D. LAB BLOOD NON ADD-ON [facility] [address] [place] [address] * Patient Status (12/27/2023 1:34 AM CDT) [facility] O2 Flow 2.0 L/min 12/27/2023 1:38 AM CDT [facility] Device NC 12/27/2023 1:38 AM CDT [facility] Spont. breaths/min 13 12/27/2023 1:38 AM [facility] Blood 12/27/2023 1:34 AM CDT 12/27/2023 1:38 AM CDT Adia Samuel M.D. LAB BLOOD NON AD D-ON Performing Organization Address City/[facility]/ZIP Co de Phone Number [facility] [address] [place], [place] [id number] [place] [address] [address] [place] [address] * (ABNORMAL) Blood Gas without Coox, Venous (12/27/2023 1:34 AM CDT) Pathologist [facility] pO2, Venous, B 41 Not applicable mm [...] BLOOD NON AD D-ON Performing Organization Address [facility] Co de Phone Number [facility] [address] [place] [address] * (ABNORMAL) Creatinine with Estimated GFR (12/27/2023 1:34 AM CDT) Creatinine 0.39(L) 0.74 - 1.35 mg/dL 12/27/2023 2:40 AM CDT DTL Estimated GFR (eGFR) >90 >=60 mL/min/BSA 12/27/2023 2:40 AM CDT DTL Comment: Estimated GFR calculated using the 2020 CKD_EPI creatinine equation. Blood (Blood, Venous) 12/27/2023 1:34 AM CDT 12/27/2023 2:01 AM CDT Fatmata Grier M.D. LAB BLOOD ADD-ON Performing Organization Address City/[facility]/ZIP Co de Phone Number [facility] [address] [place] [address], [facility] [place] [address] * (ABNORMAL) CBC with Differential, Blood (12/27/2023 [...] CDT Fatmata Grier M.D. LAB BLOOD ADD-ON [facility] [address] [place] [address], [facility] DTL [facility] [address] [place] [address] DHPM [facility] [address] [place] [address] * (ABNORMAL) Comprehensive Metabolic Panel (12/27/2023 1:34 AM CDT) [facility] Potassium, S 4.4 3.6 - 5.2 mmol/L [...] M.D. LAB BLOOD ADD-ON Performing Organization Address City/[facility]/ZIP Co de Phone Number [facility] [address] [place] [address], [facility] DTL [facility] [address] [place] [address] * Lactate, POCT (12/26/2023 11:54 PM CDT) [facility] Lactate, POCT 1.12 0.50 - 2.20 mmol/L 12/27/2023 12:10 AM CDT PCLX Sample Site, POCT Venstick 12/27/2023 12:10 AM CDT PCLX Blood 12/26/2023 11:5 4 PM CDT 12/27/2023 12:10 AM CDT Unknown Provider LAB POCT ORDERABLES - DEVICE Performing Organization Address [facility] de Phone Number POC [facility] [address] [place] [address], [facility] PCLX [facility] [address] [place] [address] * (ABNORMAL) Venous Blood Gas and Electrolytes CG8+, POCT (12/26/2023 11:50 PM CDT) Pathologist [facility] Sample Site, POCT Venstick 12/27/2023 12:10 AM [...] LAB POCT ORDERABLES - DEVICE POC RST [facility] [address] [place] [address], [facility] PCSM [facility] POC [address] [place] [address] * Feeding Tube Replacement (12/26/2023 9:36 PM [...] Lozano M.D. LAB BLOOD NON ADD-O N [facility] [address] [place] [address], [facility] [address] [place] [address] * Influenza A/B, SARS CoV-2, PCR, Rapid [...] at the following links: For Healthcare Providers: https://www.fda.gov/media/250491/download For Patients: https://www.fda.gov/media/230643/download Infl A/B, SARS CoV-2, PCR, Source Swab, Nasopharynx 12/26/2023 7:56 PM CDT [facility] Swab (Nasopharynx) 12/26/2023 7:50 PM CDT 12/26/2023 7:56 PM CDT Jamia Lozano M.D. LAB MICROBIOLOGY - GENERAL ORDERABLES [facility] [address] [place] [address], [facility] [address] [place] [address] * Bacterial Culture, Aerobic + Susceptibility, Urine (12/26/2023 7:37 PM CDT) Urine Culture No growth after 1 day of incubation. 12/28/2023 7:28 AM CDT DTL Urine (Urine, Midstream) 12/26/2023 7:37 PM CDT 12/26/2023 8:36 PM CDT Comment:Specimen Source Site : Urine Jamia Lozano M.D. LAB MICROBIOLOGY - GENERAL ORDERABLES [facility] [address] [place] [address], [place] DTL [facility] [address] [place] [address] * CT Abdomen Pelvis with IV Contrast [...] Jamia Lozano M.D. LAB URINE ORDERABLE S [facility] [address] [place] [address], [facility] [address] [place] [address] * pH, Urine (12/26/2023 7:07 PM CDT) pH, U 7.0 4.5 - 8.0 12/26/2023 7:5 0 PM CDT DTL Urine 12/26/2023 7:07 PM CDT 12/26/2023 7:37 PM CDT Jamia Lozano M.D. LAB URINE ORDERABLE S [facility] [address] [place] [address], [facility] [address] [place] [address] * Osmolality, Urine (12/26/2023 7:07 PM CDT) Osmolality, U 237 150 - 1150 mOsm/kg 12/26/2023 7:50 PM CDT DTL Urine 12/26/2023 7:07 PM CDT 12/26/2023 7:37 PM CDT Jamia Lozano M.D. LAB URINE ORDERABLE S Performing Organization Address [facility]/ZIP Co de Phone Number [facility] [address] [place] [address], [facility] [address] [place] [address] * Microscopic Automated (12/26/2023 7:07 PM CDT) Microscopy Normal 12/26/2023 7:54 PM CDT DTL RBC None Seen <3 /hpf 12/26/2023 7:54 PM CDT DTL WBC None Seen /hpf 12/26/2023 7:54 PM CDT DTL Comment: ----REFERENCE VALUE---- <4 ??(Males) <11 (Females) Urine 12/26/2023 7:07 PM CDT 12/26/2023 7:37 PM CDT Jamia Lozano M.D. LAB URINE ORDERABLE S Performing Organization Address City/[facility]/ZIP Co de Phone Number [facility] [address] [place] [address], [facility] [address] [place] [address] * (ABNORMAL) Urinalysis, with Microscopic: Urine, Catheter [...] Jamia Lozano M.D. LAB URINE ORDERABLE S [facility] [address] [place] [address], [address] [address] * Dipstick, POCT, Urine (12/26/2023 7:06 PM CDT) Glucose, POCT, U Negative Negative mg/dL 12/26/2023 7:08 PM CDT PCED Ketone, POCT, U Negative Negative mg/dL 12/26/2023 7:08 PM CDT PCED Specific [place], POCT, U 1.015 1.005 - 1.030 12/26/2023 [...] LAB POCT ORDERABLES - DEVICE POC RST [facility] OUT[facility] [address] [place] [address], [place] PCED [facility] POC [address] [place] [address] * DX Chest Portable 1 View (12/26/2023 [...] CDT Comment:Specimen Source Site : Blood Narrative [facility] - 12/31/2023 7:02 PM CDT Received Bactec aerobic and Bactec anaerobic bottles Jamia Lozano M.D. LAB MICROBIOLOGY - GENERAL ORDERABLES Performing Organization Address City/[facility]/ZIP Co de Phone Number [facility] [address] [place] [address], [facility] [address] [place] [address] * Bacteria / Christopher Culture, Blood #1 (12/26/2023 5:50 PM CDT) Pathologist [facility] Bacteria/Isabell da Culture, Blood No growth after 5 days of incubation. 12/31/2023 7:02 PM CDT DTL Blood (Blood, Peripheral Draw) 12/26/2023 5:50 PM CDT 12/26/2023 6:17 PM CDT Comment:Specimen Source Site : Blood Narrative [facility] - 12/31/2023 7:02 PM CDT Received Bactec aerobic and Bactec anaerobic bottles Jamia Lozano M.D. LAB MICROBIOLOGY - GENERAL ORDERABLES Performing Organization Address [facility] Co de Phone Number [facility] [address] [place] [address], [facility] [address] [place] [address] * (ABNORMAL) Hepatic Function Panel (12/26/2023 5:49 [...] M.D. LAB BLOOD ADD-ON Performing Organization Address [facility]/ZIP Co de Phone Number [address] [place] [address] * (ABNORMAL) Lipase (12/26/2023 5:49 PM CDT) Lipase, S 8(L) 13 - 60 U/L 12/26/2023 6: 49 PM CDT DTL Blood (Blood, Venous) 12/26/2023 5:49 PM CDT 12/26/2023 6:34 PM CDT Jamia Lozano M.D. LAB BLOOD ADD-ON Performing Organization Address City/[facility]/ZIP Co de Phone Number [facility] 200 [place] [address] * (ABNORMAL) Lactate for Sepsis with Reflex (12/26/2023 5:49 PM CDT) Lactate, P 2.3(H) 0.5 - 2.2 mmol/L 12/26/2023 6:25 PM CDT [facility] Blood (Blood, Venous) 12/26/2023 5:49 PM CDT 12/26/2023 6:12 PM CDT Jamia Lozano M.D. LAB BLOOD NON ADD-O N Performing Organization Address [facility] Co de Phone Number [facility] [address] [place] [address], [facility] [address] [place] [address] * (ABNORMAL) Prothrombin Time (PT) (12/26/2023 5:49 [...] M.D. LAB BLOOD ADD-ON Performing Organization Address [facility] de Phone Number [facility] [address] [place] [address], [facility] [address] [place] [address] * (ABNORMAL) CBC with Differential, Blood (12/26/2023 [...] CDT Jamia Lozano M.D. LAB BLOOD ADD-ON [facility] [address] [place] [address], [facility] STMA [facility] [address] [place], [place] [address] [place] [address] [place] [address] * (ABNORMAL) Basic Metabolic Panel (12/26/2023 5:49 PM CDT) [facility] Potassium, P 4.4 3.6 - 5.2 mmol/L [...] CDT Jamia Lozano M.D. [place] [address], [facility] [address] [place] [address] * Vitamin B12 Assay (12/26/2023 5:48 PM [...] Pedro Pablo Kline M.D. LAB BLOOD ADD-ON [facility] [address] [place] [address] * Cystatin C with Estimated GFR (12/26/2023 [...] CDT Adia Samuel M.D. LAB BLOOD ADD-ON [facility] [address] [place], [place] [address] [address] [place] [address] * (ABNORMAL) Lactate (12/26/2023 4:33 PM CDT) Lactate, P 2.6(H) 0.5 - 2.2 mmol/L 12/26/2023 5:02 PM CDT [facility] Blood (Blood, Venous) 12/26/2023 4:33 PM CDT 12/26/2023 4:47 PM CDT Jamia Lozano M.D. LAB BLOOD NON ADD-O N Performing Organization Address City/[facility]/ZIP Co de Phone Number [facility] [address] [place] [address], [facility] STMA [facility] [address] [place] [address] * Glucose, POCT (12/26/2023 4:32 PM CDT) Glucose, POCT, B 101 70 - 140 mg/dL 12/26/2023 4:55 PM CDT PCLX Site Venstick 12/26/2023 4:55 PM CDT PCLX Blood 12/26/2023 4:32 PM CDT 12/26/2023 4:56 PM CDT Unknown Provider LAB POCT ORDERABLES- MANUAL Performing Organization Address City/[facility] Co de Phone Number POC [facility] [address] [place] [address], [facility] PCLX [facility] POC [address] [place] [address] documented in this encounter Visit Diagnoses Diagnosis Aspiration Pneumonia Secondary to Procedure- Primary Pneumonia Sepsis (HCC) Aftercare Feeding Tube Dehydration Diarrhea Acidosis Lactic Dysphagia Oropharyngeal Phase [R13.12] Leukemia Lymphocytic Acute Remission (HCC) Seizure (HCC) Newcastle Gastaut Syndrome (HCC) Dysphagia Intellectual Disability Profound [...] mL/hr, Administer over 15 Minutes, Once, On [facility] 12/30/23 at 1200, For 1 dose, Drug Monitoring Program: Pharmacist to adjust medication dosing based on indication and drug clearance factors., Indications: Respiratory tract infection, community acquired New Bag 12/30/2023 11:00 AM CDT 2 g 200 mL/hr cefTRIAXone injection 2 g (ROCEPHIN) 2 g, intravenous, Once, On [facility] 12/26/23 at 2013, For 1 dose, [place] [...] dilute with equal volume of 0.9% NS nnbkcpiemegf-hupl-PI-Ca-minerals 400 mcg (folic acid) tablet 1 tablet [...] 0900 0845 (Given - Provider: Jb Valencia R.N.) 0913 (Given - Provider: Paris Magana RMayN., CCRN) 0854 (Given - Provider: Tong Gilbert RMayN.) baclofen tablet 20 mg (LioresaL) 20 mg, [...] acquired 2027 (New Bag - Provider: Cosme H Tani, R.N., CCRN) 2017 (New Bag - Provider: [...] 0917 (Given - Provider: Paris Magana R.N., ZEFERINON)2208 (Given - Provider: Amilcar Lin R.N.) 0849 [...] 0915 (Given - Provider: Paris Magana R.N., ZEFERINON) 0818 (Given - Provider: Tong Gilbert R.N.) [...] 0820 (Given - Provider: Tong Gilbert R.N.) asxwidgkmoda-fvnc-XJ-Ca-m inerals 400 mcg (folic acid) tablet 1 [...] skin protectant. 0844 (Given - Provider: Jb W Kampfer, R.N.)2136 (Given - Provider: Cosme Freire R.N., [...] CCRN)2352 (Stopped - Provider: Cosme Freire R.N., CCRN) PRN Medication Order 12/28/2023 12/29/2023 12/30/2023 acetaminophen [...] Provider: Jb Valencia R.N.)1551 (Given - Provider: Jb Valencia R.N.)1627 (Given - Provider: Jb Valencia R.N.)1643 (Given [...] documented as of this encounter Care Teams Labor Supervisor Relationship Specialty Start Date End Date Elsewhere, Pcp PCP - General Family Medicine 06/24/18 documented as of this encounter
--- OUTSIDE RECORDS SUMMARY | 2024-03-04 05:18 | XMS_ITS | Encounter Summary ---
Author Organization [facility] Address [address] [place] [address] Care Team Providers Care Aviation Technician Name Role Phone Elsewhere, Pcp Primary Care Provider Unavailabl e Reason for Referral * Outpatient (Routine) - Authorized Specialty Diagnoses / Procedures Referred By Contac t Referred To Contact Diagnoses Dietary Counseling And Surveillance For Enteral Nutrition Procedures EGD ? Percutaneous Endoscopic Gastrostomy/Jejunostomy Sis Brown APRN, C.N.P., D.N.P. [address] [place] [phone] [facility] Referral ID Status Reason Start Date Expiration Date V isits Requested Visits Authorized [id number] Authorized 12/20/2023 12/19/2024 1 1 * Outpatient (Routine) - Authorized Specialty Diagnoses / Procedures Referred By Contac t Referred To Contact Endocrinology Diagnoses Dietary Counseling And Surveillance For Enteral Nutrition Sis Brown APRN, C.N.P., D.N.P. [address] [place] [phone] [facility] Referral ID Status Reason Start Date Expiration Date V isits Requested Visits Authorized [id number] Authorized 12/20/2023 06/20/2025 1 1 Scheduling Instructions For triage only Encounter Details Date Type Department Care Team ([facility] st Contact Info) Description 12/20/2023 Orders Only Division of Endocrinology in [place], [place] [address] [place] [address] Anastasia Chaney RMayN. Dietary Counseling And Surveillance [...] declined 12/11/2021 How often do you attend orthodoxy or evangelical serv ices? Patient declined 12/11/2021 Do you belong to any clubs o r organizations such as orthodoxy groups, unions, fraternal or athletic groups, or [...] and heating? Not hard at all 12/11/2021 [facility] of Occupat ional Health - Occupational Stress [...] place to sleep or slept in a residential (including now)? No 12/11/2021 Nutrition Answer Date [...] documented as of this encounter Care Teams Aviation Technician Relationship Specialty Start Date End Date Elsewhere, Pcp PCP - General Family Medicine 06/24/18 documented as of this encounter
--- OUTSIDE RECORDS SUMMARY | 2024-03-04 05:18 | XMS_ITS | Encounter Summary ---
Author Organization [facility] Address [address] [place] [address] Care Team Providers Care Shredder Operator Name Role Phone Elsewhere, Pcp Primary Care Provider Unavailabl e Reason for Referral * Speech Pathology (Routine) - Authorized Specialty Diagnoses / Procedures [facility] Referred To Contact Diagnoses Dietary Counseling And Surveillance For Enteral Nutrition Procedures CIVIL ENGINEER IN TRAINING - Ongoing treatment Sis Brown APRN, C.N.P., D.N.P. [address] [place] [phone] [facility] Referral ID Status Reason Start Date Expiration Date V isits Requested Visits Authorized [id number] Authorized 12/22/2023 12/21/2024 99 99 * Outpatient (Routine) - Authorized Specialty Diagnoses / Procedures Referred By Contac t Referred To Contact Diagnoses Dietary Counseling And Surveillance For Enteral Nutrition Procedures FL Swallow Function with Video and Speech or OT Sis Brown APRN, C.N.P., D.N.P. [address] [place] [phone] [facility] Referral ID Status Reason Start Date Expiration Date V isits Requested Visits Authorized [id number] Authorized 12/22/2023 12/21/2024 1 1 * Speech Pathology (Routine) - Authorized Specialty Diagnoses / Procedures Referred By Contac t Referred To Contact Diagnoses Dietary Counseling And Surveillance For Enteral Nutrition Procedures CIVIL ENGINEER IN TRAINING Dysphagia evaluate and treat Sis Brown APRN, C.N.PMay, Keren.N.P. [address] [place] [address] [facility] Referral ID Status Reason Start Date Expiration Date V isits Requested Visits Authorized [id number] Authorized 12/22/2023 12/21/2024 99 99 Reason for Visit * Reason Onset Date Comments Follow-up Orders 12/20/2023 Encounter Details Date Type Department Care Team (Latest Contact Info) Description 12/20/2023 Clinical Communication Division of Endocrinology in [place], [place] [address] [place] [address] Provider, Unknown Follow-up Orders Social History Tobacco [...] declined 12/11/2021 How often do you attend gnosticist or caodaism serv ices? Patient declined 12/11/2021 Do you belong to any clubs o r organizations such as gnosticist groups, unions, fraternal or athletic groups, or [...] and heating? Not hard at all 12/11/2021 [facility] of Occupat ional Health - Occupational [...] documented as of this encounter Care Teams Shredder Operator Relationship Specialty Start Date End Date Elsewhere, Pcp PCP - General Family Medicine 06/24/18 documented as of this encounter
--- OUTSIDE RECORDS SUMMARY | 2024-03-04 05:18 | XMS_ITS | Encounter Summary ---
Author Organization [facility] Address [address] [place] [address] Care Team Providers Care Estate Planner Name Role Phone Elsewhere, Pcp Primary Care Provider Unavailabl e Reason for Visit * Reason Comments Scheduling Encounter Details Date Type Department Care Team ( Contact Info) Description 12/20/2023 Documentation Division of Endocrinology in [place], [place] [address] [place] [address] Anastasia Chaney, RMayNMay Scheduling Social History Tobacco [...] declined 12/11/2021 How often do you attend hoahaoism or anabaptist serv ices? Patient declined 12/11/2021 Do you belong to any clubs o r organizations such as hoahaoism groups, unions, fraternal or athletic groups, or [...] and heating? Not hard at all 12/11/2021 [facility] of Occupat ional Health - [...] in GI. Patient has a history of Ayaan-Gastout syndrome and developmental delay. He currently has a 8250-22 TGJ tube last replaced 06/10/23 in GI. He will need a 30 minute slot, no anesthesia at --[facility], any complex doctor to do. Patient is not currently on any anticoagulants. No HEN appointments are needed at this time. HEN annual appointmentsdone June 2023. Requesting appointments next available. documented in this encounter Plan of Treatment Not on file documented as of this encounter Visit Diagnoses Not on filedocumented in this encounter Care Teams Estate Planner Relationship Specialty Start Date End Date Elsewhere, Pcp PCP - General Family Medicine 06/24/18 documented as of this encounter
--- OUTSIDE RECORDS SUMMARY | 2024-03-04 05:18 | XMS_ITS | Encounter Summary ---
Author Organization [facility] Address [address] [place] [address] Care Team Providers Care Locker Attendant Name Role Phone Elsewhere, Pcp Primary Care Provider Unavailabl e Reason for Visit * Reason Onset Date Comments Vomiting 12/26/2023 Tube Problem 12/26/2023 Encounter Details Date Type Department Care Team (Late st Contact Info) Description 12/26/2023 Nurse Triage Department of Family Medicine, [facility], in [place], [place] [address] [facility] [place] [phone] Poonam Jasmine RJuli [address] [place] [phone] Vomiting; Tube Problem Social History Tobacco Use [...] How often do you attend worship or mosque serv ices? Patient declined 12/11/2021 Do you [...] and heating? Not hard at all 12/11/2021 [facility] of Occupat ional Health - Occupational [...] place to sleep or slept in a group home (including now)? No 12/11/2021 Nutrition Answer Date [...] regarding Vomiting and Tube Problem. Assessment Concern: States patient pulled out feeding tube this morning. States has been running a fever TMAX 100. States this morning also started vomiting x 1 and has been in pain (is unable to discern where pain is located as patient is non- verbal). has had a rash on back as well, states was in a lot of pain last night which seemed to improve after taking Hydrocodone. is also not having a lot of [...] care advice?: Yes, able to teach back Ynukpiar-TNBFC-QGPoonam De La Cruz R.N. Sun Dec 26, 2023 01:46 PM [...] You become worse Feeding Tube Symptoms and Tjjlmogua-PKCHT-DAPoonam De La Cruz R.N. Sun Dec 26, 2023 01:46 PM Care Advice GO TO ED NOW: * You need to be seen in the Emergency Department. * Go to the ED at nearest Hospital. * Leave now. Drive carefully. NOTE TO TRIAGER - TUBE REPLACEMENT: * Contacting the patient's doctor (or ZOO DIRECTOR/PA) may be indicated in some cases to [...] of site in abdominal wall Protocols used: Rdmrvtay-ZWORJ-QJ, Feeding Tube Symptoms and Emdxhyzkq-FYQMV-AA documented in this encounter Plan of Treatment Not on file documented as of this encounter Visit Diagnoses Not on filedocumented in this encounter Care Teams Locker Attendant Relationship Specialty Start Date End Date Elsewhere, Pcp PCP - General Family Medicine 06/24/18 documented as of this encounter
--- OUTSIDE RECORDS SUMMARY | 2024-03-04 05:18 | XMS_ITS | Encounter Summary ---
Author Organization [facility] Address [address] [place] [address] Care Team Providers Care Coagulation Operator Name Role Phone Elsewhere, Pcp Primary [...] declined 12/11/2021 How often do you attend catholic or jain serv ices? Patient declined 12/11/2021 Do you belong to any clubs o r organizations such as catholic groups, unions, fraternal or athletic groups, [...] and heating? Not hard at all 12/11/2021 [facility] of Occupat ional Health [...] on filedocumented in this encounter Care Teams Coagulation Operator Relationship Specialty Start Date End Date Elsewhere, Pcp PCP - General Family Medicine 06/24/18 documented as of this encounter
--- OUTSIDE RECORDS SUMMARY | 2024-03-04 05:18 | XMS_ITS | Encounter Summary ---
Author Organization [facility] Address [address] [place] [address] Care Team Providers Care Brilliandeer Looper Name Role Phone Elsewhere, Pcp Primary Care Provider Unavailabl e Encounter Details Date Type Department Care Team (Latest Contact Info) Description 12/29/2023 11:05 AM CDT - 12/29/2023 11:59 PM CDT Hospital Encounter Department of Radiology, [facility] in [place], [place] [address] [place] [address] Pedro Pablo Kline M.D. [address] [place] [address] Discharge Disposition: Home or Self Care Social [...] declined 12/11/2021 How often do you attend taoism or evangelical serv ices? Patient declined 12/11/2021 Do you belong to any clubs o r organizations such as taoism groups, unions, fraternal or athletic groups, or [...] and heating? Not hard at all 12/11/2021 [facility] of Occupat ional Health - Occupational [...] every 6 (six) hours as needed. 02/29/2024 HYDROcodone-acetamino phen (NORCO) 10-325 mg per tablet [...] is gone or no longer needed. 12/30/2023 zaleplon (SONATA) 5 mg capsule Take 1 [...] on filedocumented in this encounter Care Teams Brilliandeer Looper Relationship Specialty Start Date End Date Elsewhere, Pcp PCP - General Family Medicine 06/24/18 documented as of this encounter
--- OUTSIDE RECORDS SUMMARY | 2024-03-04 05:19 | XMS_ITS | Encounter Summary ---
Author Organization [facility] er Address [address] [place] [address] Care Team Providers Care Conference Organizer Name Role Phone Luis Angel Flores MD Primary Care Provider [phone] Reason for Visit * Reason Comments Med Refill Encounter Details Date Type Department Care Team (Late st Contact Info) Description 01/30/[address] [address] Luis Angel Flores MD [address] [place] [phone] Chronic pain syndrome Social History Tobacco [...] tablet x 3 Rx's were sent to [id number] - [place] - [address], [place] [address] ?? Today. Now [facility] [place] - [address], [place] [place] [address] ?? is requesting Rx. Please review and advise patient and pharmacy. documented in this encounter Plan of Treatment Not on file documented as of this encounter Visit Diagnoses Diagnosis Chronic pain syndrome documented in this encounter Care Teams Conference Organizer Relationship Specialty Start Date End Date Luis Angel Flores MD [address] [place] [address] PCP - General 05/27/18 documented as of this encounter
--- OUTSIDE RECORDS SUMMARY | 2024-03-04 05:19 | XMS_ITS | Encounter Summary ---
Author Organization [facility] er Address [address] [place] [address] Care Team Providers Care Research Associate Name Role Phone Luis Angel Flores MD Primary Care Provider [phone] Reason for Visit * Reason Onset Date Comments Med Refill 07/21/2018 Encounter Details Date Type Department Care Team (Late st Contact Info) Description 07/21/[address] [phone] Luis Angel Flores MD [address] [place] [phone] Social History Tobacco Use Types Packs/Day Years Used Date Smoking Tobacco: Never Assessed Sex and Gender Information Value Date Recorded Sex Assigned at Not on file Gender Identity Not on file Sexual Orientation Not on file documented as of this encounter Plan of Treatment Not on file documented as of this encounter Visit Diagnoses Not on filedocumented in this encounter Care Teams Research Associate Relationship Specialty Start Date End Date Luis Angel Flores MD [address] [place] [phone] PCP - General 05/27/18 documented as of this encounter
--- OUTSIDE RECORDS SUMMARY | 2024-03-04 05:19 | XMS_ITS | Encounter Summary ---
Author Organization [facility] er Address [address] [place] [address] Care Team Providers Care Household Coordinator Name Role Phone Luis Angel Flores MD Primary Care Provider [phone] Reason for Visit * Reason Onset Date Comments Med Refill 07/31/2020 Med Refill 08/12/2020 Encounter Details Date Type Department Care Team (Late st Contact Info) Description 07/31/[address] [phone] Luis Angel Flores MD [address] [place] [phone] Aspiration pneumonia, unspecified aspiration pneumonia type, unspecified [...] Gardenia Alfaro LPN - 07/31/2020 9:46 AM FREELANCE RECRUITER [facility] requesting RX for oxygen. Please review. LANCE RECRUITER documented in this encounter Plan of Treatment Not on file documented as of this encounter Visit Diagnoses Diagnosis Aspiration pneumonia, unspecified aspiration pneumonia type, unspecified laterality, unspecified part of lung (HCC)- Primary documented in this encounter Care Teams Household Coordinator Relationship Specialty Start Date End Date Luis Angel Flores MD [address] [place] [address] PCP - General 05/27/18 documented as of this encounter
--- OUTSIDE RECORDS SUMMARY | 2024-03-04 05:19 | XMS_ITS | Encounter Summary ---
Author Organization [facility] er Address [address] [place] [address] Care Team Providers Care Insurance Underwriter Sales Name Role Phone Luis Angel Flores MD Primary Care Provider [phone] Encounter Details Date Type Department Care Team (Late st Contact Info) Description 01/18/2024 3:45 PM CDT Telemedicine [address] [address] Luis Angel Flores MD [address] [place] [phone] Social History Tobacco Use Types Packs/Day [...] place to sleep or slept in a chcf (including now)? No 01/18/2024 Sex and Gender [...] on filedocumented in this encounter Care Teams Insurance Underwriter Sales Relationship Specialty Start Date End Date Luis Angel Flores MD [address] [place] [address] PCP - General 05/27/18 documented as of this encounter
--- OUTSIDE RECORDS SUMMARY | 2024-03-04 05:19 | XMS_ITS | Encounter Summary ---
Author Organization [facility] er Address [address] [place] [address] Care Team Providers Care Inspector Set Up And Lay Out Name Role Phone Luis Angel Flores MD Primary Care Provider [phone] Reason for Visit * Reason Onset Date Comments Med Refill 10/18/2018 Encounter Details Date Type Department Care Team (Late st Contact Info) Description 09/19/[address] [address] Luis Angel Flores MD [address] [place] [phone] Chronic pain syndrome (Primary Dx) Social History Tobacco Use Types Packs/Day Years Used Date Smoking Tobacco: Never Assessed Sex and Gender Information Value Date Recorded Sex Assigned at Not on file Gender Identity Not on file Sexual Orientation Not on file documented as of this encounter Miscellaneous Notes * Telephone Encounter - Gardenia Alfaro LPN - 09/19/2018 1:09 PM REPLANTING MACHINE OPERATOR Patient seen 05/19/18. Per visit note Chronic pain syndrome. [place] given for 3 months should call back for refills. Has been on this medication for many years. ANTING MACHINE OPERATOR * Telephone Encounter - Kindra Abreu - 09/19/2018 8:59 AM CST Needs refill on vicadin ANTING MACHINE OPERATOR documented in this encounter Plan of Treatment Not on file documented as of this encounter Visit Diagnoses Diagnosis Chronic pain syndrome- Primary documented in this encounter Care Teams Inspector Set Up And Lay Out Relationship Specialty Start Date End Date Luis Angel Flores MD [address] [place] [address] PCP - General 05/27/18 documented as of this encounter
--- OUTSIDE RECORDS SUMMARY | 2024-03-04 05:19 | XMS_ITS | Encounter Summary ---
Author Organization [facility] er Address [address] [place] [address] Care Team Providers Care Construction Specialist Name Role Phone Luis Angel Flores MD Primary Care Provider [phone] Reason for Visit * Reason Onset Date Comments TCM Follow-up 12/31/2023 Encounter Details Date Type Department Care Team (Late st Contact Info) Description 12/31/2023 [facility] [address] [place] [address] Luis Angel Florse MD [address] [place] [address] TCM Follow-up Social History Tobacco [...] Chavarria RN - 01/03/2024 1:54 PM CDT Blip message read. * Telephone Encounter - Shanika Chavarria RN - 12/31/2023 10:21 AM CDT Transitional Care Management Follow-Up Phone Call Patient: Say Hilario : 1980 PCP: Luis Angel Flores MD Admission Date: 12/26/23 Discharge Date: 12/30/23 Discharging Facility: [facility] Discharge Diagnosis: Aspiration Pneumonia Secondary to Procedure [...] related to tube site or tube call [phone] Wednesday - Wednesday 7;30 am-4:30 pm or after hours, weekends, holidays call [facility] rail transit operator [phone] ask them to page [phone] and wait for MD to answer. May need to repeat call if they don't answer they could be busy doing procedure. Sleep medicine follow up has been arranged Strongly recommend PCP follow up within 1 week documented in this encounter Plan of Treatment Not on file documented as of this encounter Visit Diagnoses Not on filedocumented in this encounter Care Teams Construction Specialist Relationship Specialty Start Date End Date Luis Angel Flores MD [address] [place] [address] PCP - General 05/27/18 documented as of this encounter
--- OUTSIDE RECORDS SUMMARY | 2024-03-04 05:19 | XMS_ITS | Encounter Summary ---
Author Organization [facility] er Address [address] [place] [address] Care Team Providers Care Broker Agricultural Produce Name Role Phone Luis Angel Flores MD Primary Care Provider [phone] Encounter Details Date Type Department Care Team (Late st Contact Info) Description 02/01/2024 Orders Only [address] [address] Luis Angel Flores MD [address] [place] [phone] Dermatitis (Primary Dx) Social History Tobacco [...] cause documented in this encounter Care Teams Broker Agricultural Produce Relationship Specialty Start Date End Date Luis Angel Flores MD [address] [place] [address] PCP - General 05/27/18 documented as of this encounter
--- OUTSIDE RECORDS SUMMARY | 2024-03-04 05:19 | XMS_ITS | Clinical Summary ---
Author Organization [facility] er Address [address] [place] [address] Care Team Providers Care Dba Manager Name Role Phone Luis Angel Flores MD Primary Care Provider [phone] Allergies Active Allergy Reactions Criticality Noted Date Comments Aspirin 07/10/2010 Camphor 12/20/2010 Other reaction(s): Other (see comments) Converted from Generic Allergy: Eucalyptus/Menthol/ Camphor Pbfpond-Ehlhrjpxgp-Sijz hol 12/01/2020 Other reaction(s): *Unknown, Other (see [...] topically 1 (one) time each day Active Ytdlpi-Gkdoqf-Uuzx sorb-Zn Sulf (CLEAR EYES COMPLETE) solution Administer [...] 3 0 Active LIDOCAINE/DIPHENHY DRAMINE/AL-MG SIM 1:1:1 195-57-030-40 mg/30 mL mouth washIndications:Mo uth pain Use [...] 1 4 02/01/20 25 Active HYDROcodone-acetam inophen (Victor) 5-325 MG per tabletIndications: Chronic pain syndrome Take 2 tablets by mouth every 6 (six) hours if needed for severe pain 240 tablet 4 Active HYDROcodone-acetam inophen (Victor) 5-325 MG per tabletIndications: Chronic pain syndrome Take 2 tablets by mouth every 6 (six) hours if needed for severe pain 240 tablet 4 02/17/20 24 Discontinu ed(Reorder ) Active Problems Problem Noted Date Diagnosed Date Encephalopathy chronic 07/12/2020 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 No 01/18/2024 Sex and Gender [...] T Respiratory Rate 20 10/06/2022 1:05 PM SHIRT TURNER Oxygen Saturation 99% 10/06/2022 1:05 PM SHIRT TURNER Inhaled Oxygen Concentration - - Weight 61.7 [...] age to complete this topic Care Teams Dba Manager Relationship Specialty Start Date End Date Luis Angel Flores MD [address] [place] [address] PCP - General 05/27/18
--- OUTSIDE RECORDS SUMMARY | 2024-03-04 05:19 | XMS_ITS | Encounter Summary ---
Author Organization [facility] er Address [address] [place] [address] Care Team Providers Care Coke Still Cleaner Name Role Phone Luis Angel Flores MD Primary Care Provider [phone] Encounter Details Date Type Department Care Team (Late st Contact Info) Description 08/21/2020 [facility] [address] [place] [address] Luis Angel Flores MD [address] [place] [address] Social History Tobacco Use Types [...] on filedocumented in this encounter Care Teams Coke Still Cleaner Relationship Specialty Start Date End Date Luis Angel Flores MD [address] [place] [phone] PCP - General 05/27/18 documented as of this encounter
== END 2024-02-28 13:16 | disposition home or self-care (01) ==
LOC: AMB 03-04 05:11
PROVIDERS: PCP Family Medicine; Visit Provider Family Medicine
DX: J96.01 Acute respiratory failure with hypoxia (principal); I95.9 Hypotension, unspecified
CPT/HCPCS: A0425; A0434

== ENCOUNTER 2024-09-28 21:35 | Outpatient (CLI) | payer MEDICARE, MEDICAID, SELFPAY | END 2024-09-28 21:36 | disposition home or self-care (01) | LOC: AMB 10-13 00:01 | PROVIDERS: PCP Family Medicine; Visit Provider Emergency Medicine Emergency Medical Services | DX: R09.02 Hypoxemia (principal) | CPT/HCPCS: A0998 ==

== ENCOUNTER 2025-05-19 12:14 | Emergency (ER) | payer MEDICARE, MEDICAID, SELFPAY ==
--- OUTSIDE RECORDS SUMMARY | 2025-04-26 08:36 | XMS_ITS | Encounter Summary ---
Author Organization [facility] Address [address] [place] [address] Care Team Providers Care Fisheries Technician Name Role Phone Elsewhere, Pcp Primary Care Provider Unavailabl e Reason for Referral * Gastrointestinal (Routine) - Closed Specialty Diagnoses / Procedures Referred By Valorie copeland Referred To Contact Diagnoses Dietary Counseling And Surveillance For Enteral Nutrition Procedures EGD Percutaneous Endoscopic Gastrostomy/Jejunostomy Sis Ruiz APRN, C.N.P., D.N.P. [address] [place] [phone] Phone: tel: fax: [facility] Referral ID Status Reason Start Date Expiration Date Visits Re quested Visits Authorized [id number] Closed 04/16/2025 07/17/2026 1 1 Reason for Visit * Gastrointestinal (Routine) - Closed Specialty Diagnoses / Procedures Referred By Valorie copeland Referred To Contact Diagnoses Dietary Counseling And Surveillance For Enteral Nutrition Procedures EGD Percutaneous Endoscopic Gastrostomy/Jejunostomy Sis Ruiz APRN, C.N.P., D.N.P. [address] [place] [phone] Phone: tel: fax: [facility] Referral ID Status Reason Start Date Expiration Date Visits Re quested Visits Authorized [id number] Closed 04/16/2025 07/17/2026 1 1 Encounter Details Date Type Department Care Team (Latest Contact Info) Description 04/26/2025 8:36 AM CDT - 04/26/2025 11:59 PM CDT Hospital Encounter Division of Gastroenterology in [place], [place] [address] [place] [phone] Sis Ruiz, AKASH, C.N.P., D.N.P. [address] [place] [phone] Chiqui Wiggins APRN, KRISHAN, DNAP [address] [place] [phone] Dietary Counseling And Surveillance For Enteral Nutrition Discharge Disposition: Home or Self Care Social History Tobacco Use Types Packs/Day Years Used Date Smoking Tobacco: Never Smokeless Tobacco: Never Alcohol Use Standard Drinks/Week Comments Never 0 (1 standard drink = 0.6 oz pur e alcohol) [facility] Utilities Answer Date Recorded In the past [address] [facility] [employer], gas, oil, or water [employer] threatened to shut off services in your home? No 05/30/2024 Humiliation, Afraid, Rape, and Kick questionnair e Answer Date Recorded Within the last year, have y ou been afraid of your partner or ex-partner? No 04/23/2024 Within the last year, have y ou been humiliated or emotionally abused in other ways by your partner or ex-partner? No Within the last year, have y ou been kicked, hit, slapped, or otherwise physically hurt by your partner or ex-partner? No 04/23/2024 Within the last year, have y ou been raped or forced to have any kind of sexual activity by your partner or ex-partner? No 04/23/2024 Hunger Vital Sign Answer Date Recorded Within the past 12 months, y ou worried that your food would run out before you got the money to buy more. Never true 05/30/20 24 Within the past 12 months, t he food you bought just didn't last and you didn't have money to get more. Never true 05/30/2024 PRAPARE - Transportation Answer Date Re corded In the past 12 months, has l ack of transportation kept you from medical appointments or from getting medications? No 05/14 In the past 12 months, has l ack of transportation kept you from meetings, work, or from getting things needed for daily living? No 05/30/2024 Housing Stability Answer Date Recorded What is your living situation today? 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 4 acetic acid 0.25 % irrigation (sterile) Irrigate with as directed 2 (two) times a day. For groin to perirectal/perin eal area. 1000 mL 3 azelastine (ASTEPRO) 205.5 mcg/spray (0.15 %) nasal spray Administer 1 spray into each nostril daily. 11 mL 3 bacitracin 500 unit/gram ointment Apply 1 Application topically as needed (redness, inflammation on skin). benzoyl peroxide (BREVOXYL) 4 % external liquid Apply 1 Application topically. cannabidioL (Epidiolex) 100 mg/mL solution Administer 4 mL (400 mg total) via small bowel tube every morning AND 6 mL (600 mg total) every evening. 900 mL 4 clindamycin (CLEOCIN T) 1 % external solution Apply 1 Application topically. 1 clotrimazole (FUNGI CURE) 1 % external solution Apply 1 Application topically daily as needed (rash on head). 15 mL 3 clotrimazole-betame thasone (LOTRISONE) 1-0.05 % cream Apply 1 Application [...] once. if seizures continue, call 911). 8 diphenhydramine-lid ocaine-antacid (MAGIC MOUTHWASH) 1:1:1 Swish and spit 15 mL every 4 (four) hours as needed. DME Ostomy suppliesIndications :Acute Respiratory Failure With Hypoxia (HCC) DME Order 1 Unspecified 11 4 felbamate (FelbatoL) 600 mg/5 mL suspension Take 10 mL (1,200 mg total) by mouth 2 (two) times a day AND 12.5 mL (1,500 mg total) daily. 2925 mL 4 HYDROcodone-acetami nophen ([place]) 5-325 mg per tablet Take 2 tablets by mouth every 6 (six) hours as needed. 4 ibuprofen (ADVIL,MOTRIN) 600 mg tablet 600 mg by g-tube route every 8 (eight) hours as needed for pain. ipratropium-albuter oL (DUONEB) 0.5-2.5 mg/3 mL nebulizer solution Inhale 3 mL by nebulization 4 (four) times a day as needed for shortness of breath. 2 ketoconazole (NIZORAL) 2 % cream Apply 1 Application topically 2 (two) times a day as needed for irritation or rash. 1 lamoTRIgine (LaMICtaL) 100 mg tablet Administer 3.5 tablets (350 mg total) via small bowel tube 2 (two) times a day, in the morning and at 2 PM, AND 3 tablets (300 mg total) every evening. 900 tablet 4 levETIRAcetam (Keppra) 1,000 mg tablet Administer 2 tablets (2,000 mg total) via small bowel tube 2 (two) times a day. 360 tablet 04/04/2024 12:25 PM CDT 4 levocetirizine (XYZAL) 5 mg tablet 5 mg by gastric tube route every evening. mometasone (NASONEX) 50 mcg/actuation nasal spray Administer 2 sprays into each nostril daily. 49 g 3 8 multivitamin with minerals liquid 10 mL by g-tube route. 2 naloxone (NARCAN) 4 mg/actuation nasal spray Administer 1 spray (4 mg total) into one nostril as needed for reversal. Use 1 spray in 1 nostril. Repeat with second device in other nostril after 2-3 minutes if no or minimal response. 2 each 4 nystatin (NYSTOP) 100,000 unit/gram powder Apply 1 Application topically 3 (three) times a day. Apply to areas of intertrigo 60 g 4 nystatin (NYSTOP) 100,000 unit/gram powder Apply 1 Application topically 3 (three) times a day. Apply to areas of intertrigo 60 g 4 nystatin-triamcinol one (MYCOLOG II) 100,000 Unit/g-0.1 % cream Apply 1 Application topically 2 (two) times a day as needed (fungal infection). Apply to affected areas. olopatadine (PATADAY) 0.2 % ophthalmic solution Administer 1 drop into both eyes 4 (four) times a day as needed for allergies (redness). oxyCODONE (Roxicodone) 5 mg immediate release tabletIndications:A cute Pain Administer 1 tablet (5 mg total) via gastric tube every 6 (six) hours as needed for pain or severe pain or score 7-10 of 10 for up to 12 doses Indication: Acute Pain. 12 tablet 4 polyethylene glycol (MIRALAX) 17 gram/dose oral powder Administer 17 g via gastric tube daily as needed for constipation. 510 g 3 pseudoephedrine (Sudafed) 30 mg tablet Take 30 mg by mouth every 6 (six) hours as needed for congestion. 2 silver nitrate (ArzoL) 75-25 % topical stick Apply topically daily as needed. 3 silver nitrate (ArzoL) 75-25 % topical stick Apply 1 Application topically See Admin Instructions. Apply to abdominal wounds as directed 100 each 4 silver sulfADIAZINE (SILVADENE, SSD) 1 % cream Apply 1 Application topically daily as needed for wound care. Apply to skin break down in groin. simethicone (MYLICON,GAS-X) 125 mg capsule Take 125 mg by mouth every 6 (six) hours as needed for flatulence (bloating). sodium chloride 1,000 mg disintegrating tablet 4 torsemide (DEMADEX) 10 mg tablet Administer 10 mg via gastric tube daily as needed (edema). zinc oxide (DESITIN) 13 % cream Apply 1 Application topically as needed (skin cares). Apply to irritated perineal/jennifer-re ctal skin. 136 g 3 zinc oxide 40 % ointment Apply 1 g topically 2 (two) times a day. Apply to GT site for skin protectant. zolpidem (AMBIEN) 5 mg tablet Take 5 mg by mouth at bedtime as needed for sleep. documented as of this encounter Nursing Notes * Lionel Mabry R.N. - 04/26/2025 12:04 PM CDT PEG/PEJ Nursing Procedure Note ASSESSMENT / PLAN Patient Name: Say Hilario Tube Replacement Procedure Department : DIVISION OF GASTROENTEROLOGY IN [place], [place] SUBJECTIVE Medical History[1] Surgical History[2] Social History[3] OBJECTIVE Procedure Patient presents to [place] [id number] Patient being seen for: TGJ Type of procedure: Replacement Location of tube: Stomach and Small Bowel (Gastric site with tip in small bowel) Brand of tube: Avanos Type of connector: small-bore Reference number: [id number] Size of Tube: 22 Fr Top of skin disc level: 4 Internal Retention Device: Balloon Balloon volume in mL: 10 T Fasteners: Not Present Skin integrity of site: Normal/intact Ostomy appliance not applied. Complications: None Was the tube labeled: No Verification of tube done by: Fluoroscopy After Visit Information Recommendations for after procedure: Follow nursing guideline PEG/PEJ Tube Site Care and Tube Replacement, Home Enteral Nutrition Clinic, Follow instructions page 6-12 in PEG/PEJ booklet for post tube placement activity, pain control, site care, Contact number is in wallet card and PEG/PEJ booklet for any questions or concers related to tube and Once dressing is removed secure tube to abdomen with se pro net for Flexi-Trak Return appointment timeframe: 3-5 months Tube is used for: Venting and Feeding When may you use tube: May use tube immediately Tube placed to gravity: No Patient Education Learning needs assessment. Who is being assessed: Caregiver and Family Any barriers to learning: None Learning preference: Doing, Listening, Reading and Seeing Education: PEG/PEJ Wallet Card ([id number]) Supplies sent with patient: None [1] Past Medical History: Diagnosis Date Apnea Sleep Obstructive Chronic Kidney Disease NOS Complication Anesthesia Initial Dermatitis 2017 Dysphagia Gastroesophageal Reflux Disease NOS 1985 Intellectual Disability Profound 12/01/2020 Leukemia 1981 Pneumonia 1989 Post Operative Nausea/Vomiting Seizure ([facility]) 1983 Lennoy Guustaut Syndrome Sepsis (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 [2] Past Surgical History: Procedure Laterality Date APPLICATION WOUND VAC ABDOMEN Midline 03/21/2024 Procedure: APPLICATION WOUND VACUUM ABDOMEN, irrigation, debridement, partial Skin Closure; Surgeon: Isreal Katz M.D.; Location: [facility] APPLICATION WOUND VAC ABDOMEN N/A 03/23/2024 Procedure: APPLICATION WOUND VACUUM ABDOMEN; Surgeon: Isreal Katz M.D.; Location: [facility] CYSTOSCOPY INSERTION STENT URETER Left 02/22/2023 Procedure: CYSTOSCOPY INSERTION STENT URETER; Surgeon: Ermias Young M.D., M.P.H.; Location: [facility] DEBRIDEMENT AND IRRIGATION Midline 03/21/2024 Procedure: DEBRIDEMENT, IRRIGATION.; Surgeon: Isreal Katz M.D.; Location: [facility] DEBRIDEMENT AND IRRIGATION - ABDOMINAL WOUND Midline 03/18/2024 Procedure: fascial closure with bridging vicryl mesh. wound vac placement; Surgeon: Armand Barr M.D.; Location: [facility] DEBRIDEMENT AND IRRIGATION ABDOMEN N/A 03/17/2024 Procedure: IRRIGATION AND WOUND PACKING OF THE ABDOMEN; Surgeon: Sonido Cruz M.D., Ph.D.; Location: [facility] DEBRIDEMENT AND IRRIGATION ABDOMEN N/A 03/23/2024 Procedure: DEBRIDEMENT AND IRRIGATION ABDOMEN, DRAIN PLACEMENT; Surgeon: Isreal Katz M.D.; Location: [facility] ESOPHAGOGASTRODUODENOSCOPY N/A 03/17/2024 Procedure: ESOPHAGOGASTRODUODENOSCOPY.; Surgeon: Sonido Cruz M.D., Ph.D.; Location: [facility] EXCHANGE URETERAL STENT Left 04/05/2023 Procedure: EXCHANGE URETERAL STENT.; Surgeon: Bi Rivera M.D.; Location: [facility] EXPLORATION ABDOMINAL N/A 03/11/2024 Procedure: EXPLORATION ABDOMINAL, cholecystectomy, sigmoidectomy, ileocolonic anastomosis, descending colostomy; Surgeon: Aleks Hinkle M.D.; Location: [facility] LAPAROSCOPIC EXPLORATION - DIAGNOSTIC N/A 03/10/2024 Procedure: LAPAROSCOPIC EXPLORATION CONVERTED TO OPEN EXPLORATION LAPAROTOMY, RIGHT YAMIL-COLECTOMY,TEMPORARY ABDOMINAL CLOSURE; Surgeon: Aleks Hinkle M.D.; Location: [facility] OTHER SURGICAL HISTORY N/A Gastrocnemius recession (eg, Maren procedure).. RETROGRADE PYELOGRAM Left 04/05/2023 Procedure: RETROGRADE PYELOGRAM; Surgeon: Bi Rivera M.D.; Location: [facility] SINUS SURGERY 1988 TRACHEOSTOMY N/A 03/17/2024 Procedure: TRACHEOSTOMY.; Surgeon: Sonido Cruz M.D., Ph.D.; Location: [facility] URETEROSCOPY WITH LASER LITHOTRIPSY Left 04/05/2023 Procedure: URETEROSCOPY WITH LASER LITHOTRIPSY.; Surgeon: Bi Rivera M.D.; Location: [facility] OR [3] Social History Socioeconomic History Marital status: Single Tobacco Use Smoking status: Never Smokeless tobacco: Never Substance and Sexual Activity Alcohol use: Never Drug use: Never Social Drivers of Health Food Insecurity: No Food Insecurity (05/30/2024) Hunger Vital Sign Worried About Running Out of Food in the Last Year: Never true Ran Out of Food in the Last Year: Never true Transportation Needs: No Transportation Needs (05/30/2024) PRAPARE - Transportation Lack of Transportation (Medical): No Lack of Transportation (Non-Medical): No Intimate Partner Violence: Not At Risk (04/23/2024) Humiliation, Afraid, Rape, and Kick questionnaire Fear of Current or Ex-Partner: No Emotionally Abused: No Physically Abused: No Sexually Abused: No Housing Stability: Low Risk (04/23/2024) Housing Stability Housing: Living Situation: I have a steady place to live documented in this encounter Plan of Treatment Upcoming Encounters Date Type Department Care Team (Latest Contact Info) Description 05/28/2025 1:15 PM CDT Clinical Communication Virtual Review in [place], [place] 200 [place] [phone] 05/29/2025 10:00 AM CDT Comprehensive Visit Department of Nutrition and Diabetes Education in [place], [place] [address] [place] [phone] Ivon Franklin APRN, C.N.P., M.S. [address] [place] [phone] 05/29/2025 11:00 AM CDT Comprehensive Visit Division of Endocrinology in [place], [place] [address] [place] [phone] Ivon Franklin APRN, C.N.P., M.S. [address] [place] [phone] documented as of this encounter Procedures Procedure Name Priority Date/Time Associated Diagnosis Comments FL FLUORO LESS THAN 1 HOUR RAD - Routine (most inpatients and all outpatients) 04/26/2025 9:45 AM CDT Dietary Counseling And Surveillance For Enteral Nutrition NON-ENDOSCOPIC TUBE PROCEDURE Routine 04/26/2025 9:19 AM CDT Dietary Counseling And Surveillance For Enteral Nutrition EGD PERCUTANEOUS ENDOSCOPIC GASTROSTOMY/JEJUNOS CLAUDINE Routine 04/26/2025 9:19 AM CDT Dietary Counseling And Surveillance For Enteral Nutrition documented in this encounter Results * FL Fluoro Less Than 1 Hour (04/26/2025 9:45 AM CDT) Narrative ERCP LOS RST - 04/26/2025 9:45 AM CDT This exam does not require a radiologist review or interpretation. Please refer to the patient's medical record on this date for clinical details. us Sis Ruiz APRN, C.N.P., D.N.P. IMG FLUOROSCO PY PROCEDURES Final Result ERCP LOS RST * Non-Endoscopic Tube Procedure (04/26/2025 9:19 AM CDT) 04/26/2025 9:19 AM CDT Impressions [facility] EM[facility]ENC[facility] - 04/26/2025 9:43 AM CDT Post-op Diagnoses: - The gastrostomy tube had been in place for an extended length of time and was removed and replaced with a 22 Fr Avanos FARIHA PEG-J gastrostomy tube. - No specimens collected. Narrative [facility] EM[facility] - 04/26/2025 9:43 AM CDT [facility] 6 GI GI Patient Name: Say Hilario Date of : 1980 Age: 45 Procedure Date: 04/26/2025 Procedure: Non-endoscopic Tube Procedure Providers: Anthony Alamo MD Referring Provider: Sis Ruiz Pre-op Diagnoses: Routine exchange PEG-J tube Recommendation: - The patient will be observed post-procedure, until all discharge criteria are met. - Repeat the tube procedure PRN to replace the enteral tube. Findings: Upon external examination, normal-appearing skin was found surrounding the stomal opening. The gastrostomy tube was patent. The gastrostomy tube required removal because it had been in place for an extended length of time. The existing PEG-J site was cleaned. A guidewire was advanced through the existing tube. The existing PEG-J balloon was deflated and by using traction, removal was accomplished without difficulty. A 22 Fr Avanos FARIHA PEG-J gastrostomy tube was lubricated and placed into the existing gastrostomy port over the guidewire. A total of 10 mL saline was used to distend the balloon that was previously tested and the guidewire was removed. The final tension and compression of the abdominal wall by the gastrostomy tube and external bumper were checked and revealed that the bumper was loose and lightly touching the skin. Placement into the jejunum was confirmed using fluoroscopy with contrast. The tube was capped, and the tube site was cleaned and dressed. Procedural Details: The patient was seen, evaluated, history reviewed, airway and heart-lung exams were performed by licensed provider and were satisfactory for planned level of sedation care. The risks, benefits and alternatives for the procedure and sedation were discussed and informed consent was obtained. A procedural pause was conducted in the presence of assisting personnel to verify the correct patient identity and procedure to be performed. Throughout the procedure, the patient's blood pressure, pulse, and oxygen saturations were monitored continuously. The procedure was accomplished without difficulty. The patient tolerated the procedure well. Estimated Blood Loss: Estimated blood loss: none. Complications: No immediate complications. Attending Participation: I personally performed the entire procedure. Anthony Alamo MD 04/26/2025 9:43:04 AM This report has been signed electronically. Number of Addenda: 0 Sis Ruiz APRN C.N.P., D.N.P. GI PROCEDURE ORDERABLES Final Result Performing Organization Address City/State/[facility] Phone Number [facility] documented in this encounter Visit Diagnoses Diagnosis Dietary Counseling And Surveillance For Enteral Nutrition documented in this encounter Care Teams Fisheries Technician Relationship Specialty Start Date End Date Elsewhere, Pcp PCP - General Family Medicine 06/24/18 documented as of this encounter
--- OUTSIDE RECORDS SUMMARY | 2025-04-26 08:43 | XMS_ITS | Encounter Summary ---
Author Organization [facility] Address [address] [place] [phone] Care Team Providers Care Supply Chain Assistant Name Role Phone Elsewhere, Pcp Primary Care Provider Unavailabl e Encounter Details Date Type Department Care Team (Latest Contact Info) Description 04/26/2025 8:43 AM CDT - 04/26/2025 11:59 PM CDT Hospital Encounter Department of Radiology, [facility] in [place], [place] [address] [place] [phone] Sis Brown, AKASH, C.N.P., D.N.P. [address] [place] [phone] Discharge Disposition: Home or Self Care Social History Tobacco Use Types Packs/Day Years Used Date Smoking Tobacco: Never Smokeless Tobacco: Never Alcohol Use Standard Drinks/Week Comments Never 0 (1 standard drink = 0.6 oz pur e alcohol) [facility] Utilities Answer Date Recorded In the past 12 months has [facility] [employer], gas, oil, or water [employer] threatened to shut off services in your [...] your living situation today? 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 2925 mL 4 HYDROcodone-acetami nophen ([place]) 5-325 mg per tablet Take 2 tablets [...] for sleep. documented as of this encounter Plan of Treatment Upcoming Encounters Date Type Department Care Team (Latest Contact Info) Description 05/28/2025 1:15 PM CDT Clinical Communication Virtual Review in [place], [place] 200 [place] [phone] 05/29/2025 10:00 AM CDT Comprehensive Visit Department of Nutrition and Diabetes Education in [place], [place] [address] [place] [phone] Ivon Franklin APRN, C.N.P., M.S. [address] [place] [phone] 05/29/2025 11:00 AM CDT Comprehensive Visit Division of Endocrinology in [place], [place] [address] [place] [phone] Ivon Franklin APRN, C.N.P., M.S. [address] [place] [phone] documented as of this encounter Procedures Procedure [...] record on this date for clinical details. [facility] Girish Brown APRN, C.N.P., D.N.P. IMG FLUOROSCO PY PROCEDURES Final Result ERCP LOS RST documented in this encounter Visit Diagnoses Not on filedocumented in this encounter Care Teams Supply Chain Assistant Relationship Specialty Start Date End Date Elsewhere, Pcp PCP - General Family Medicine 06/24/18 documented as of this encounter
--- OUTSIDE RECORDS SUMMARY | 2025-05-19 12:18 | XMS_ITS | Encounter Summary ---
Author Organization [facility] er Address [address] [place] [address] Care Team Providers Care Potato Chip Sacking Machine Operator Name Role Phone Luis Angel Flores MD Primary Care Provider [phone] Reason for Visit * Reason Onset Date Comments [facility] 04/09/2025 Encounter Details Date Type Department Care Team (Late st Contact Info) Description 04/09/2025 Telephone [place] [address] [place] [address] Luis Angel Flores MD [address] [place] [address] [facility] Social History Tobacco Use Types Packs/Day Years Used Date Smoking Tobacco: Never Smokeless Tobacco: Never Alcohol Use Standard Drinks/Week Comments Never 0 (1 standard drink = 0.6 oz pur e alcohol) B1300 Health Literacy Answer Date Recor ded How often do you need to hav e someone help you when you read instructions, pamphlets, or other written material from your doctor or pharmacy? Always 04/12/2024 AUDIT-C Answer Date Recorded Q1: How often [...] slept in a intermediate (including now)? No 01/18/2024 Sex and Gender Information Value Date Recorded Sex Assigned at Not on file Legal Sex Male 1:41 PM CDT Gender Identity Not on file Sexual Orientation Not on file documented as of this encounter Miscellaneous Notes * Telephone Encounter - Ginger Maier RN - 04/10/2025 8:59 AM CDT Spoke with mother. [place] was set up through caseworker but [place] has not yet contacted mother. She thinks she wants to stick with [facility]. Mother will call back to discuss how to proceed. * Telephone Encounter - Tamra Dimas - 04/09/2025 2:11 PM CDT Johanne from [facility] called and is asking if someone could fax Pts demographics , Insurance , Living arrangements , address . The social worker psychiatric stated to her that they are not happy with the Medical supply they aren't currently using [facility] ? Please call Johanne back after discussing with Sandra Jody Gutierrez fax [phone] documented in this encounter Plan of Treatment Upcoming Encounters Date Type Department Care Team (Late st Contact Info) Description 06/11/2025 1:00 PM CDT Office Visit [facility] 210 [facility] [address] [place] [phone] Danelle Vicente, DPM [address] [place] [phone] documented as of this encounter Visit Diagnoses Not on filedocumented in this encounter Care Teams Potato Chip Sacking Machine Operator Relationship Specialty Start Date End Date Luis Angel Flores MD [address] [place] [address] PCP - General 05/27/18 documented as of this encounter
--- OUTSIDE RECORDS SUMMARY | 2025-05-19 12:18 | XMS_ITS | Encounter Summary ---
Author Organization [facility] er Address [address] [place] [address] Care Team Providers Care Clinical Scientist Name Role Phone Luis Angel Flores MD Primary Care Provider [phone] Reason for Visit * Reason Onset Date Comments faxed Paperwork -please call Mom 04/09/2025 Encounter Details Date Type Department Care Team (Late st Contact Info) Description 04/09/2025 [facility] [address] [place] [address] Luis Angel Flores MD [address] [place] [address] faxed Paperwork -please call Mom Social History Tobacco Use Types Packs/Day Years [...] slept in a prison (including now)? No 01/18/2024 Sex and Gender Information Value Date Recorded Sex Assigned at Not on file Legal Sex Male 1:41 PM CDT Gender Identity Not on file Sexual Orientation Not on file documented as of this encounter Miscellaneous Notes * Telephone Encounter - Ginger Maier RN - 04/10/2025 9:00 AM CDT Spoke to mother. She asked if we received anything from [facility]. I did discuss that paperwork was signed by Dr. Flores last week therefore it should be in the process of getting to them. She will contact [facility] to see if they have what they need. She does not wish to change to [place] at this time (see other telephone message). * Telephone Encounter - Tamra Dimas - 04/09/2025 9:59 AM CDT Pts Mom called and would like Ginger to give her a call back and is asking if we received the paperwork from [facility] ? Thank you . Please call her back Ginger documented in this encounter Plan of Treatment Upcoming Encounters Date Type Department Care Team (Late st Contact Info) Description 06/11/2025 1:00 PM CDT Office Visit [facility] 210 [facility] [address] [place] [phone] Danelle Vicente, DPM [address] [place] [phone] documented as of this encounter Visit Diagnoses Not on filedocumented in this encounter Care Teams Clinical Scientist Relationship Specialty Start Date End Date Luis Angel Flores MD [address] [place] [address] PCP - General 05/27/18 documented as of this encounter
--- OUTSIDE RECORDS SUMMARY | 2025-05-19 12:18 | XMS_ITS | Encounter Summary ---
Author Organization [facility] er Address [address] [place] [address] Care Team Providers Care Relief Man Name Role Phone Luis Angel Flores MD Primary Care Provider [phone] Reason for Visit * Reason Onset Date Comments Med Refill 07/21/2018 Encounter Details Date Type Department Care Team (Late st Contact Info) Description 07/21/[address] [id number] Luis Angel Flores MD [address] [place] [phone] Social History Tobacco Use Types Packs/Day Years Used Date Smoking Tobacco: Never Assessed Sex and Gender Information Value Date Recorded Sex Assigned at Not on file Legal Sex Male 1:41 PM CDT Gender Identity Not on file Sexual Orientation Not on file documented as of this encounter Plan of Treatment Upcoming Encounters Date Type Department Care Team ([facility] Contact Info) Description 06/11/2025 1:00 PM CDT Office Visit [facility] [address] [place] [address] [address] [place] [phone] Danelle Vicente, DPM [address] [place] [phone] documented as of this encounter Visit Diagnoses Not on filedocumented in this encounter Care Teams Relief Man Relationship Specialty Start Date End Date Luis Angel Flores MD [address] [place] [phone] PCP - General 05/27/18 documented as of this encounter
--- OUTSIDE RECORDS SUMMARY | 2025-05-19 12:18 | XMS_ITS | Encounter Summary ---
Author Organization [facility] er Address [address] [place] [address] Care Team Providers Care Media Analytics Manager Name Role Phone Luis Angel Flores MD Primary Care Provider [phone] Reason for Visit * Reason Comments Med Refill Encounter Details Date Type Department Care Team (Late st Contact Info) Description 01/30/2022 Refill [place] [address] [place] [address] Luis Angel Flores MD [address] [place] [address] Chronic pain syndrome Social History Tobacco [...] 02/02/2022 9:53 AM CDT [facility] * Telephone Encounter - Gardenia Alfaro LPN - 01/30/2022 1:15 PM CDT My chart message sent for clarification of pharmacy. * Telephone Encounter - Patrick Garcia LPN - 01/30/2022 12:47 PM CDT HYDROcodone-acetaminophen (NORCO) 10-325 MG per tablet x 3 Rx's were sent to [facility] #[id number] - [place] - [address], [place] [address] ?? Today. Now [facility] [place] - [address], [place] [address] ?? is requesting Rx. Please review and advise patient and pharmacy. documented in this encounter Plan of Treatment Upcoming Encounters Date Type Department Care Team (Late st Contact Info) Description 06/11/2025 1:00 PM CDT Office Visit [facility] [address] [address] [place] [address] Danelle Vicente, DPM [address] [place] [address] documented as of this encounter Visit Diagnoses Diagnosis Chronic pain syndrome documented in this encounter Care Teams Media Analytics Manager Relationship Specialty Start Date End Date Luis Angel Flores MD [address] [place] [phone] PCP - General 05/27/18 documented as of this encounter
--- OUTSIDE RECORDS SUMMARY | 2025-05-19 12:18 | XMS_ITS | Encounter Summary ---
Author Organization [facility] er Address [address] [place] [address] Care Team Providers Care Acura Sales Consultant Name Role Phone Luis Angel Flores MD Primary Care Provider [phone] Reason for Visit * Reason Onset Date Comments Med Refill 10/18/2018 Encounter Details Date Type Department Care Team ([facility] st Contact Info) Description 09/19/[address] [phone] Luis Angel Flores MD [address] [place] [phone] Chronic pain syndrome (Primary Dx) Social History [...] Gardenia Alfaro LPN - 09/19/2018 1:09 PM MUSIC LIBRARY ASSISTANT Patient seen 05/19/18. Per visit note Chronic pain syndrome. [place] given for 3 months should call back for refills. Has been on this medication for many years. C LIBRARY ASSISTANT * Telephone Encounter - Kindra Abreu - 09/19/2018 8:59 AM CST Needs refill on vicadin C LIBRARY ASSISTANT documented in this encounter Plan of Treatment Upcoming Encounters Date Type Department Care Team ([facility] st Contact Info) Description 06/11/2025 1:00 PM CDT Office Visit [facility] 210 [facility] [address] [place] [address] Danelle Vicente, DPM [address] [place] [phone] documented as of this encounter Visit Diagnoses Diagnosis Chronic pain syndrome- Primary documented in this encounter Care Teams Acura Sales Consultant Relationship Specialty Start Date End Date Luis Angel Flores MD [address] [place] [address] PCP - General 05/27/18 documented as of this encounter
--- OUTSIDE RECORDS SUMMARY | 2025-05-19 12:18 | XMS_ITS | Encounter Summary ---
Author Organization [facility] er Address [address] [place] [address] Care Team Providers Care Bore Miner Operator Name Role Phone Luis Angel Flores MD Primary Care Provider [phone] Reason for Visit * Reason Onset Date Comments Rx for Bed 04/16/2025 Encounter Details Date Type Department Care Team (Late st Contact Info) Description 04/16/2025 Telephone [place] [address] [place] [address] Luis Angel Flores MD [address] [place] [address] Rx for Bed Social History Tobacco Use Types Packs/Day Years [...] in a nursing home (including now)? No 01/18/2024 Sex and Gender Information Value Date Recorded Sex Assigned at Not on file Legal Sex Male 1:41 PM CDT Gender Identity Not on file Sexual Orientation Not on file documented as of this encounter Miscellaneous Notes * Telephone Encounter - Gardenia Alexis RN - 04/18/2025 2:[address] Flores has signed paperwork and PSR will fax. * Telephone Encounter - Gardenia Alexis RN - 04/18/2025 10:55 AM CDT Received fax and awaiting signature. * Telephone Encounter - Gardenia Alexis RN - 04/16/2025 2:12 PM CDT Waiting on fax. * Telephone Encounter - Tamra Dimas - 04/16/2025 9:06 AM CDT Pts Mom called and wanted us to look for a Rx for Say's bed that should be faxed today or tomorrow . It broke so hoping to get some parts or new bed . documented in this encounter Plan of Treatment Upcoming Encounters Date Type Department Care Team (Late st Contact Info) Description 06/11/2025 1:00 PM CDT Office Visit [facility] 210 [facility] 100 [place] [address] Danelle Vicente, DPM [address] [place] [phone] documented as of this encounter Visit Diagnoses Not on filedocumented in this encounter Care Teams Bore Miner Operator Relationship Specialty Start Date End Date Luis Angel Flores MD [address] [place] [address] PCP - General 05/27/18 documented as of this encounter
--- OUTSIDE RECORDS SUMMARY | 2025-05-19 12:18 | XMS_ITS | Clinical Summary ---
Author Organization [facility] Address [address] [place] [address] Care Team Providers Care Steam Pipe Fitter Name Role Phone Luis Angel Flores Unavailable [phone] Luis Angel Flores [place] Primary Care Provider [phone] Allergies Active Allergy Reactions Criticality Noted Date Comments Aspirin 07/10/2010 Cefaclor 07/10/2010 Codeine GI Upset 12/20/2010 Converted from Generic Allergy: Codeinenausea/dyspepsia nausea/dyspepsia Penicillins 07/10/2010 Mcgsmln-Itbsnlhchg-[id number] *Unknown 1 Medications baclofen (LIORESAL) 20 mg tablet Administer 20 mg via G-tube four times daily. Active cetirizine-pseud oephedrine, 5-120 mg, (ZYRTEC-D) 5-120 mg tablet Administer 1 tablet via G-tube once daily. Active diazePAM RECTAL (Diastat) 2.5 mg kitIndications:a cute repetitive seizures Insert 20 mg rectally each [...] once daily. Active bisacodyl (DULCOLAX) 10 mg suppositoryIndic ations:constipat ion Insert 10 mg rectally once daily if needed. Active cloBAZam (ONFI) 10 mg Administer 15 mg via G-tube in the AM and give 10 mg at bedtime. Active HYDROcodone-acet aminophen, 10-325 mg, (NORCO) 10-325 mg per tablet Administer 1 Tablet via G-tube every 6 hours if needed for Pain. Max acetaminophen 4000mg in 24 hours. Active acetaminophen (TYLENOL) 325 mg tablet Administer 650 mg via G-tube every 6 hours if needed. Max acetaminophen dose: 4000mg in 24 hrs. Active bacitracin ointmentIndicati ons:minor bacterial skin infections Apply topically to affected area(s) 2 times daily if needed. Active mupirocin (BACTROBAN) 2 % cream Apply topically to affected area(s) 2 times daily if needed. Active carboxymethylcel lulose (REFRESH CELLUVISC) 1 % eye gel in [...] G-tube every 8 hours if needed. 0 09/30/19 19 Active albuterol (PROVENTIL) 0.083 % neb solution Inhale 2.5 mg via a nebulizer every 4 hours if needed. Active diphenhydrAMINE- zinc acetate, 1%-0.1%, (BENADRYL ITCH STOPPING CREAM) cream Apply topically to affected area(s) 4 times daily if needed for Itching. Active omeprazole 2 mg/mL suspension Administer 20 mg via G-tube once daily. Active cannabidioL (Epidiolex) 100 mg/mL soln oral solution Administer 2 mL via G-tube in the AM and give 4 mL at bedtime. Active albuterol-ipratr opium (DUONEB) (2.5-0.5 mg) in 3 mL NEBULIZATION solutionIndicati ons:Pneumonia of right middle lobe due to infectious organism,Pneumon ia of right lower lobe due to infectious organism Inhale 3 mL via a nebulizer 4 times daily if needed (SOB/cough/wheeze ). 180 mL 12/02/2020 1:28 PM CDT 12/03/19 Active NebulizerIndicat ions:Pneumonia of right lower lobe due to infectious organism,Pneumon ia of right middle lobe due to infectious organism Nebulizer, disposable neb kit x 4, reuseable neb kit x 1, mask x 1, filters x 1. 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 Use of cannabis oil 12/01/2020 On tube feeding diet 12/01/2020 Overview (12/01/2020): Via J-tube: 85 ml/hr for 10-12 hours. 4 boxes of specific formula. Starts at 21:30. 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 Overview (12/01/2020): Lymphoid leukemia, other, specified, in remission lymphoblastic leukemia Gastro-esophageal reflux disease without esophag itis 12/07/2011 Immunizations Immunization Administration Dates Next Due COVID-19 vaccine (Moderna [...] at Not on file Legal Sex Male 6:15 AM CASH ANALYST Gender Identity Not on file Sexual Orientation Not on file Obstetrics History Last Filed Vital Signs Vital Sign Reading Time Taken Comments Blood Pressure 100/56 12/02/2020 9:00 AM CDT Pulse 92 12/02/2020 12:00 PM CDT Temperature 36.4 C (97.6 F) 12/02/2020 11:18 AM CDT Respiratory Rate 18 12/02/2020 12:04 PM CDT Oxygen Saturation 99% 12/02/2020 12:04 PM CDT Inhaled Oxygen Concentration - - Weight 59 kg (130 lb) 11/21/2024 5:21 PM CDT Height 144.8 cm (4' 9) 11/21/2024 5:21 PM CDT Body Mass Index 28.13 11/21/2024 5:21 PM CDT Plan of Treatment Health Maintenance Due Date Last Done Comments Depression screening for age 12+ 1992 HIV for age 15-65 02/15/1995 BMI (ht and wt on same day) for age 18+ 02/15/1998 Hepatitis C screening for ag e 18-79 02/15/1998 Hepatitis B series for 19+ ( 1 of 3 - 19+ 3-dose series) 02/15/1999 Pneumococcal series for age 6-49 (3 of 3 - PPSV23, PCV20 or PCV21) 03/09/2016 01/13/2016, 09/20/2006 Tetanus booster 07/10/2020 07/10/2010, 06/14, 07/07/2010 COVID-19 vaccine series ( season) 2024 04/28/2022, 06/11/2021, 12/18/2020, Additional history exists Colonoscopy through age 75 02/15/2025 Lipids for age 45-75 02/15/2025 Influenza Vaccine (#1) 2025 , 06/27/2019, 07/06/2018, Additional history exists RSV vaccine for adults or (1 - 1-dose 75+ series) 02/15/2055 Insurance MEDICAID MEDICARE PART B HB ONLY MEDICARE PART A HB ONLY MEDICAID Advance Directives * DNR (Latest Code Status [...] Protocol After Arrest Oc curs Care Teams Steam Pipe Fitter Relationship Specialty Start Date End Date Luis Angel Flores [address] [place] [address] PCP - General Family Practice 06/15/20 Luis Angel Flores [facility] 03/02/14
--- OUTSIDE RECORDS SUMMARY | 2025-05-19 12:18 | XMS_ITS | Encounter Summary ---
Author Organization [facility] er Address [address] [place] [address] Care Team Providers Care Activities Director Name Role Phone Luis Angel Flores MD Primary Care Provider [phone] Encounter Details Date Type Department Care Team ([facility] Contact Info) Description 08/21/2020 [facility] [address] [place], [place] [phone] Luis Angel Flores MD [address] [place] [phone] Social History Tobacco Use Types Packs/Day Years [...] Upcoming Encounters Date Type Department Care Team ([facility] Contact Info) Description 06/11/2025 1:00 PM CDT Office Visit [facility] 210 [facility] [address] [place] [phone] Danelle Vicente, DPM [address] [place] [phone] documented as of this encounter Visit Diagnoses Not on filedocumented in this encounter Care Teams Activities Director Relationship Specialty Start Date End Date Luis Angel Flores MD [address] [place] [address] PCP - General 05/27/18 documented as of this encounter
--- OUTSIDE RECORDS SUMMARY | 2025-05-19 12:18 | XMS_ITS | Clinical Summary ---
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 Augmentin/ Amoxicillin use contraindicated. Aspirin 07/10/2010 Camphor 12/20/2010 Other reaction(s): Other (see comments) Converted from Generic Allergy: Eucalyptus/Menthol/Cam phor Smoplwr-Pawdstllpu-Sue thol 12/01/2020 Other reaction(s): *Unknown, Other (see comments) Cefaclor 07/10/2010 Codeine GI intolerance,Unknow n 12/20/2010 Other reaction(s): GI intolerance Converted from Generic Allergy: Codeinenausea/dyspepsi a nausea/dyspepsia Converted from Generic Allergy: Codeinenausea/dyspepsi a nausea/dyspepsia Cephalexin Other (see comments) High 03/13/2025 Ren's Anthony Syndrome Levofloxacin 05/14/2022 Other reaction(s): Unknown Other High 04/07/2019 Vicks rub Penicillins 07/10/2010 Petrolatum 12/20/2010 Other reaction(s): Other (see comments) Converted from Generic Allergy: Eucalyptus/Menthol/Cam phor Turpentine Oil 12/20/2010 Other reaction(s): Other (see comments) Converted from Generic Allergy: Eucalyptus/Menthol/Cam phor Medications DiphenhydrAMINE HCl (ALLERGY MED PO) 1-2 capsules by Per G Tube route 1 (one) time each day Allergy Pro Active Wound Dressings (AQUACEL HYDROFIBER PACKING EX) Apply 1 application topically 1 (one) time each day if needed (Fill cavity space around GT Topically.) Active Emollient (AQUAPHOR EX)Indications:Ur inary Incontinence Apply 1 application topically 2 (two) times a day And PRN Active benzoyl peroxide (BREVOXYL) 4 % external liquidIndications :Folliculitis Apply 1 application topically 1 (one) time each day Active Rilppc-Ozxkbd-Pcf ysorb-Zn Sulf (CLEAR EYES COMPLETE) solution Administer 1-2 drops into affected eye(s) 4 (four) times a day if needed (Red Watery Eyes) Active EMOLLIENT EXIndications:Fol liculitis Apply 1 application topically 1 (one) time [...] day 85 ML/per hour of Replete Active Carboxymethylcell ulose Sod PF 1 % gel Apply 1 drop to affected eye(s) Active Oral Syringe miscIndications:C ognitive developmental delay 1 Syringe every 2 (two) hours if needed (PRN for oral medication) 2 each 11 06/07/20 19 Active Respiratory Therapy Supplies (NEBULIZER/ADULT MASK) kitIndications:Wh eezing,SOB (shortness of breath) 1 Device every 4 (four) hours if needed (Wheezing/SOB) 4 each 3 09/21/19 20 Active LAMICTAL 100 MG tabletIndications :Seizure (HCC) Take 1.5 tablet in AM, 1 tablet at 2pm, 1.5 tablet PM (Use with 200mg tablet to = 350mg, 300mg, 350mg) 360 tablet 3 11/09/19 20 Active LAMICTAL 200 MG tabletIndications :Seizure (HCC) TAKE 1 TABLET BY MOUTH THREE TIMES A DAY WITH 1&1/2-100MG TABS IN THE MORNING AND 9PM AND WITH 1-100MG TABLET AT 2PM (350mg, 300mg, 350mg) 180 tablet 3 03/07/20 20 Active Syringe, Disposable, 60 ML miscIndications:G astrostomy tube in place (HCC) USE NEEDED 4 each 04/15/20 20 Active Syringe, Disposable, 10 ML miscIndications:G astrostomy tube in place (HCC) USE NEEDED 200 each 04/15/20 20 Active Gauze Pads 2X2 padsIndications:G astrostomy tube in place (HCC) SPLIT GAUZE. USE NEEDED 200 each 04/15/20 20 Active Disposable Gloves (RA NITRILE MEDICAL GLOVES) miscIndications:G astrostomy tube in place (HCC) USE NEEDED 400 each 04/15/20 20 Active Distilled Water (Purified Water) liquid 07/06/20 20 Active oxygen (O2) gas Inhale 2 L/min continuously via nasal canula at night and PRN Active LIDOCAINE/DIPHENH YDRAMINE/AL-MG SIM 1:1:1 [id number] mg/30 mL mouth washIndications:M outh pain Use 15 mL in the mouth or throat every 4 (four) hours if needed (pain) 250 mL 12/14/19 21 Active omeprazole 2 mg/mL in sodium bicarbonateIndica tions:Gastroesoph ageal reflux disease with esophagitis, unspecified whether hemorrhage Take 20 mL (40 mg total) by mouth 1 (one) time each day 600 mL 07/08/20 21 Active ketoconazole (NIZORAL) 2 % creamIndications: Folliculitis Apply 1 application topically 2 (two) times a day if needed for itching or rash 60 g 07/08/20 21 Active Lubricants (K-Y Jelly) gelIndications:Ur inary retention Apply 1 application topically every 6 (six) hours 113 g 07/08/20 21 Active silver sulfADIAZINE (Silvadene) 1 % creamIndications: Dermatitis Apply topically 2 (two) times a day 400 g 07/08/20 21 Active clotrimazole-beta methasone (Lotrisone) creamIndications: Yeast Apply 1 application topically 2 (two) times a day if needed (scalp) 30 g 1 08/11/20 21 Active clindamycin (Cleocin-T) 1 % external solutionIndicatio ns:Folliculitis Apply 1 application topically 1 (one) time each day DX: folliculitis 30 mL 1 08/11/20 21 Active acetaminophen (TYLENOL) 325 MG tabletIndications :Rash 2-3 tablets (650-975 mg total) by Per G Tube route every 6 (six) hours if needed for mild pain (Not to exceed 5 doses in 24 hours) 30 tablet 3 08/11/20 Active Additional Information Patient taking differently:650-1,000 mg Per G Tube Every 6 hours PRN, mild pain, Not to exceed 5 doses in 24 hours,Administer 2 tablets (650 mg total) via small bowel tube 4 (four) times a day., Reported on 04/27/2024 bacitracin 500 UNIT/GM ointmentIndicatio ns:Rash Apply 1 g (500 Units total) topically 1 (one) time each day if needed for wound care (Redness and Inflammation) 15 g 3 08/11/20 21 Active Catheters (Self-Cath Plus Straight Tip) miscIndications:U rinary retention USE SIX TIMES DAILY DIRECTED 180 each 11 09/01/20 21 Active pseudoephedrine (SUDAFED) 30 MG tabletIndications :Head congestion Take 1 tablet (30 mg total) by mouth every 4 (four) hours if needed for congestion 30 tablet 3 01/28/20 Active Additional Information Patient taking differently:30 mg OralEvery 6 hours PRN, congestion, Reported on 04/27/2024 Control Gel Formula Dressing (DuoDerm Signal Dressing) miscIndications:P ressure injury of coccygeal region, stage 2 (HCC) Apply 1 each topically every 3rd (third) day And PRN 10 each 3 01/30/20 22 Active hydrocortisone 2.5 % creamIndications: Rash APPLY TO AFFECTED AREAS 2 (TWO) TIMES A DAY 28 g 03/04/20 22 Active simethicone (MYLICON) 125 MG chewable tabletIndications :Gas bloat syndrome Chew 1 tablet (125 mg total) every 6 (six) hours if needed for flatulence 270 tablet 3 06/02/20 22 Active Multiple Vitamins-Minerals (multivitamin with iron-minerals) liquidIndications :Takes dietary supplements 9 mL by Per G Tube route 1 (one) time each day 236 mL 11 06/26/20 22 Active polyethylene glycol (MiraLax) 17 GM/SCOOP powderIndications :Chronic constipation Take 17 g by mouth 2 (two) times a day 850 g 11 10/09/19 23 Active magnesium hydroxide (MILK OF MAGNESIA) 400 MG/5ML suspensionIndicat ions:Chronic constipation Take 30 mL by mouth 1 (one) time each day if needed for constipation If no results from Miralax, Dulcolax Sup, Fleet, and Mineral Oil enemas. 769 mL 11 10/09/19 23 Active silver nitrate 75-25 % applicatorIndicat ions:Attention to G-tube (HCC) Apply topically 1 (one) time each day if needed (Stoma care) 100 each 07/01/20 23 Active mupirocin (BACTROBAN) 2 % ointmentIndicatio ns:Skin Breakdown Apply 1 application topically 3 (three) times a day Until resolved, then TID PRN 30 g 1 07/02/20 23 Active LORazepam (ATIVAN) 2 MG tabletIndications :Agitation TAKE 1 TABLET(2 MG) BY MOUTH EVERY DAY NEEDED FOR AGITATION 30 tablet 2 10/21/19 24 Active Additional Information Patient taking differently: Administer 2 tablets (2 mg total) via small bowel tube every 8 (eight) hours for 3 days, THEN 2 tablets (2 mg total) every 12 (twelve) hours for 7 days, THEN 1 tablet (1 mg total) every 12 (twelve) hours for 7 days, THEN 1 tablet (1 mg total) at bedtime for 8 days., Reported on 04/27/2024 ibuprofen (ADVIL) 600 MG tablet 1 tablet (600 mg total) by Per G Tube route every 8 (eight) hours if needed for moderate pain Active Naloxone HCl 4 MG/0.1ML liquid Administer 1 spray (4 mg total) into affected nostril(s) once daily as needed 12/30/19 24 Active nystatin (MYCOSTATIN) cream Apply 1 Application topically 2 times daily 12/30/19 24 Active nystatin-triamcin olone (MYCOLOG II) cream Apply 1 Application topically 2 times daily as needed Fungal areas Active nystatin (MYCOSTATIN) 598794 UNIT/GM powder Apply 1 Application topically 3 times daily intertrigo 12/30/19 Active olopatadine (PATADAY) 0.2 % ophthalmic solution Administer 1 drop into affected eye(s) 4 times daily as needed Active PHENobarbital (LUMINAL) 30 MG tablet by Enteral route Administer 2 tablets (60 mg total) via small bowel tube 2 (two) times a day for 3 days, THEN 2 tablets (60 mg total) at bedtime for 14 days, THEN 1 tablet (30 mg total) at bedtime for 7 days. 04/04/20 24 Active sodium chloride 0.9 % flush 5 mL by Other route 3 times daily For dressing changes 04/26/20 24 Active zolpidem (AMBIEN) 5 MG tablet Take 1 tablet (5 mg total) by mouth once daily as needed Active Cannabidiol 100 MG/ML solution by Enteral route Administer 4 mL (400 mg total) via small bowel tube every morning AND 6 mL (600 mg total) every evening. 04/04/20 24 Active diazePAM (DIASTAT) 2.5 MG gel Insert 20 mg into the rectum once daily as needed Insert 20 mg into the rectum as needed for seizures (if having more than 10 generalized tonic-clonic seizures per hour or if seizure lasts more than 3 minutes, may repeat once. if seizures continue, call 911). Active levETIRAcetam (KEPPRA) 1000 MG tablet 2 tablets (2,000 mg total) by Enteral route 2 times daily 04/04/20 24 Active levocetirizine (XYZAL) 5 MG tablet 1 tablet (5 mg total) by Intragastric route daily Active rufinamide (BANZEL) 200 MG tablet by Enteral route Administer 1 tablet (200 mg total) via small bowel tube every morning AND 2 tablets (400 mg total) at bedtime. 04/04/20 24 Active acetic acid 0.25 % irrigation Irrigate with as directed 1 (one) time each day Irrigate as directed BID - perirectal/perin eal area Active ipratropium-albut brit (DUO-NEB) 0.5-2.5 mg/3 mL nebulizer solutionIndicatio ns:Wheezing Take 3 mL by nebulization 4 (four) times a day if needed for wheezing or shortness of breath 180 mL 11 05/23/20 24 Active torsemide (DEMADEX) 20 MG tabletIndications :Edema, unspecified type TAKE 1 TABLET(20 MG) VIA GTUBE 1 TIME EACH DAY 90 tablet 3 06/05/20 24 Active sodium chloride 1 g tabletIndications :Hyponatremia Take 1 tablet (1 g total) by mouth 3 (three) times a day 90 tablet 06/20/20 24 Active mometasone (NASONEX) 50 MCG/ACT nasal sprayIndications: Allergy, initial encounter Administer 2 sprays into each nostril 2 (two) times a day 17 g 11 01/26/20 25 Active triamcinolone (KENALOG) 0.1 % creamIndications: Dermatitis APPLY TO AFFECTED AREA TWICE DAILY NEEDED. AVOID FACE AND GROIN 454 g 1 02/27/20 25 Active cloBAZam (ONFI) 10 MG tablet TAKE 1.5 TABLETS EVERY MORNING VIA J-TUBE AND 1 AT BEDTIME FOR 30 DAYS 02/23/20 25 Active Keppra 100 MG/ML solution 03/13/20 25 Active mupirocin (BACTROBAN) 2 % ointmentIndicatio ns:Ingrown toenail with infection Apply topically 3 (three) times a day 30 g 03/13/20 25 Active HYDROcodone-aceta minophen ([place]) 5-325 MG per tabletIndications :Chronic pain syndrome Take 2 tablets by mouth every 6 (six) hours if needed for severe pain 240 tablet 03/21/20 25 Active HYDROcodone-aceta minophen (NORCO) 5-325 MG per tabletIndications :Chronic pain syndrome Take 2 tablets by mouth every 6 (six) hours if needed for severe pain 240 tablet 04/20/20 25 Active HYDROcodone-aceta minophen (NORCO) 5-325 MG per tabletIndications :Chronic pain syndrome Take 2 tablets by mouth every 6 (six) hours if needed for severe pain 240 tablet 05/20/20 25 Active azelastine (ASTELIN) 0.1 % nasal sprayIndications: Allergy, initial encounter INSTILL 2 SPRAYS INTO EACH NOSTRIL TWICE DAILY 30 mL 11 04/06/20 25 Active oxybutynin (DITROPAN) 5 MG tabletIndications :Urinary retention Take 1 tablet (5 mg total) by mouth 3 (three) times a day Via g tube 270 tablet 1 04/30/20 25 Active oxybutynin (DITROPAN) 5 MG tablet Take 1 tablet (5 mg total) by mouth 3 (three) times a day Via g tube 025 Discontin ued(Reord er) Active Problems Problem Noted Date Diagnosed Date Encephalopathy chronic 07/12/2020 Intractable epilepsy without status epilepticus 07/12/2020 Gastroesophageal reflux disease with esophagitis 07/12/2020 Encounters Date Type Department Care Team Description 04/16/[address] [place] [address] Luis Angel Flores MD Rx for Bed 04/09/2025 [facility] [address] [place] [address], [place] [address] Luis Angel Flores MD [facility] 04/09/[address] [place] [address] Luis Angel Flores MD faxed [place]work [place] [facility]/[address] [place] [address] Luis Angel Flores MD Allergy, initial encounter 03/20/[address] [place] [address] Luis Angel Flores MD Chronic pain syndrome 03/13/2025 Orders Only [address] [place] [address] Luis Angel Flores MD Ingrown toenail with infection (Primary Dx) 03/13/2025 Orders Only Internal Medicine [address] [place] [address] Cammie Myrick 03/12/2025 Orders Only [address] [address] Luis Angel Flores MD Ingrown toenail with infection (Primary Dx) 02/23/2025 Orders Only [address] [place] [address] Luis Angel Flores MD 02/20/[address] [place] [address] Luis Angel Flores MD Dermatitis from Last 3 Months Immunizations Immunization Administration Dates Next Due DTP 02/11/1991, 2,1980,07/14,1980 INFLUENZA QUADRIVALENT MDV (IM) 06/04/2021 Influenza 6mo-64yrs Quad Pre servative Free IM 06/02/2022,05/28/2020,06/27/2019,07/06,06/01/2017,07/16/2016 Influenza, Split Virus, Triv alent, Preservative 07/06/2018,05/26/2017,06/24/2016,06/27,07/01/2014,06/27/2014,06/29/2012 ,06/19/2011,09/06/2010,07/10/2004,08/13 Influenza, Trivalent, PF 06/10/2010,06/13,07/05/2007,07/12,07/16/2005 Influenza, Unspecified 05/26/2017,2015,06/27/2015,06/27,06/29/2012,07/07/2010,06/26/2008 ,07/05/2007,07/12/2006,07/16/2005,06/14,08/27/2003 MMR 05/14/1981 Pneumococcal [...] to sleep or slept in a senior living (including now)? No 01/18/2024 Sex and Gender Information Value Date Recorded Sex Assigned at Not on file Legal Sex Male 1:41 PM CDT Gender Identity Not on file Sexual Orientation Not on file Last Filed Vital Signs Vital Sign Reading Time Taken Comments Blood Pressure 111/71 12/18/2022 12:15 PM CDT Pulse 86 12/18/2022 12:15 PM CDT Temperature 35.6 C (96.1 F) 10/06/2022 1:05 PM TUMBLING INSTRUCTOR Respiratory Rate 20 10/06/2022 1:05 PM TUMBLING INSTRUCTOR Oxygen Saturation 99% 10/06/2022 1:05 PM TUMBLING INSTRUCTOR Inhaled Oxygen Concentration - - Weight 61.7 kg (136 lb) 06/02/2022 11:18 AM CDT Height 149.9 cm (4' 11) 06/02/2022 11:18 AM CDT Body Mass Index 27.47 06/02/2022 11:18 AM CDT Plan of Treatment Upcoming Encounters Date Type Department Care Team (Late st Contact Info) Description 06/11/2025 1:00 PM CDT Office Visit [facility] [address] [facility] [address] [place] [address] Danelle Vicente, DP [address] [place] [address] Health Maintenance Due Date Last Done Comments CT Colonography 1980 Colonoscopy 1980 Colorectal Cancer Screening 1980 FIT-DNA 1980 Sigmoidoscopy 1980 iFOBT 1980 HPV Vaccines (1 - Risk male 3-dose series) 02/15/1991 Medicare Annual Wellness Vis it (AWV) 02/15/1998 Pneumococcal Vaccine: Pediat rics (0 to 5 Years) and At-Risk Patients (6 to 49 Years) (3 of 3 - PCV20 or PCV21) 03/09/2016 01/13/2016, 09/20/2006 DTaP,Tdap,and Td Vaccines (9 - Td or Tdap) 07/10/2020 07/10/2010, 07/07/2010, 07/07/2010, Additional history exists COVID-19 Vaccine (2024- 6 season) 2025 04/28/2022, 06/11/2021, 12/18/2020, Additional history exists Influenza Vaccine (#1) 2025 , 06/04/2021, 05/28/2020, Additional history exists Insurance [employer] MEDICARE Care Teams Chemical Production Technician Relationship Specialty Start Date End Date Luis Angel Flores MD [address] [place] [phone] PCP - General 05/27/18
--- OUTSIDE RECORDS SUMMARY | 2025-05-19 12:18 | XMS_ITS | Encounter Summary ---
Author Organization [facility] er Address [address] [address] Care Team Providers Care Vice President Sales Name Role Phone Luis Angel Flores MD Primary Care Provider [phone] Reason for Visit * Reason Comments Med Refill Encounter Details Date Type Department Care Team (Late st Contact Info) Description 04/02/[address] [address] Luis Angel Flores MD [address] [place] [address] Allergy, initial encounter Social History Tobacco Use Types Packs/Day [...] slept in a halfway (including now)? No 01/18/2024 Sex and Gender Information Value Date Recorded Sex Assigned at Not on file Legal Sex Male 1:41 PM CDT Gender Identity Not on file Sexual Orientation Not on file documented as of this encounter Miscellaneous Notes * Telephone Encounter - Isamar Mendiola MA - 04/05/2025 2:41 PM CDT Upcoming appointment with provider: Visit date not found Last visit in provider department: 05/04/2024 Last visit requested medication was discussed: med not discussed in the last year Last Rx: 11/03/2023 # 30 mL, 11 refill Requested Prescriptions Pending Prescriptions Disp Refills azelastine (ASTELIN) 0.1 % nasal spray [Pharmacy Med Name: AZELASTINE 0.1%(137MCG) NASAL-200SP] 30 mL 11 Sig: INSTILL 2 SPRAYS INTO EACH NOSTRIL TWICE DAILY Labs: Vitals: BP Readings from Last 2 Encounters: 12/18/22 111/71 10/06/22 (!) 89/53 Last Controlled Substance Agreement (CSA): Last Random Urine Drug Screen (RUDS): documented in this encounter Plan of Treatment Upcoming Encounters Date Type Department Care Team (Late st Contact Info) Description 06/11/2025 1:00 PM CDT Office Visit [facility] [address] [facility] [address] [place] [address] Danelle Vicente, DPM [address] [place] [phone] documented as of this encounter Visit Diagnoses Diagnosis Allergy, initial encounter documented in this encounter Care Teams Vice President Sales Relationship Specialty Start Date End Date Luis Angel Flores MD [address] [place] [address] PCP - General 05/27/18 documented as of this encounter
--- OUTSIDE RECORDS SUMMARY | 2025-05-19 12:18 | XMS_ITS | Encounter Summary ---
Author Organization [facility] er Address [address] [place] [address] Care Team Providers Care Payroll Coordinator Name Role Phone Luis Angel Flores MD Primary Care Provider Reason for Visit * Reason Onset Date Comments Med Refill 07/31/2020 Med Refill 08/12/2020 Encounter Details Date Type Department Care Team (Late st Contact Info) Description 07/31/[address] [id number] Luis Angel Flores MD [address] [place] [address] Aspiration pneumonia, unspecified aspiration pneumonia type, unspecified [...] Gardenia Alfaro LPN - 07/31/2020 9:46 AM RECYCLABLE MATERIALS DISTRIBUTOR [facility] requesting RX for oxygen. Please review. CLABLE MATERIALS DISTRIBUTOR documented in this encounter Plan of Treatment Upcoming Encounters Date Type Department Care Team (Late st Contact Info) Description 06/11/2025 1:00 PM CDT Office Visit [facility] 210 [facility] [address] [place] [address] Danelle Vicente, DPM [address] [place] [phone] documented as of this encounter Visit Diagnoses Diagnosis Aspiration pneumonia, unspecified aspiration pneumonia type, unspecified laterality, unspecified part of lung (HCC)- Primary documented in this encounter Care Teams Payroll Coordinator Relationship Specialty Start Date End Date Luis Angel Flores MD [address] [place] [address] PCP - General 05/27/18 documented as of this encounter
[2025-05-19 12:36] VITALS: BP 102/67; PULSE 92; RESP 18; TEMP 36.2; O2SAT 99
--- NOTE | 2025-05-19 12:52 | ED.GENADULT ---
HPI - General Adult General Date Seen: 05/19/25 Chief complaint: Skin/Abscess/Foreign Body Stated complaint: red/warm area on right lower leg Time Seen by Provider: 05/19/25 12:50 History of Present Illness HPI narrative: 45-year-old male who is wheelchair bound with some cognitive disability. He is nonverbal. He has a history of Ayaan-Gastaut syndrome. He has occasional seizures. He has a colostomy. He has a GJ tube for feeding and meds. He has tracheostomy. He presents to the ER today with the providers with concern that he has a red swollen area on his right medial ankle. He has a day history of DVT in the mid left femoral vein into the popliteal vein noted on ultrasound in February 2024. He was treated with a course of anticoagulants but has been off them for at least several months. His parents who brought him to the ER today and notes that yesterday evening when they were getting him in his wheelchair they noted a small area of redness and warmth on the patient's right medial ankle. They circled it. It is roughly 6 x 10 cm in oblong size. It seemed as though his ankle was hurting him yesterday he. He seemed to grown more when they touched or moved it. Today the medial ankle is still red but is less brightly red than it was yesterday. As they are concerned that he might have an infection or some problem with his ankle. They have not noticed any trouble breathing. No fever. No change in his GI status. Tube feeds and meds are going well. Ostomy output is normal. He does not have any swelling or redness more proximally in his leg, calf, knee, or hip. No swelling or redness or apparent discomfort of his left ankle. There is no known injury or trauma to the right ankle. He when I take off his sock for exam I noticed that he does have redness and swelling on the dorsum of the right foot over the great toe/1st ray. There appears to be a healing ingrown toenail with a little bit of granulation tissue at the distal/lateral corner of the great toenail plate. No definite palpable fluid collection around the toenail or active paronychia. Parents note that he did have this ingrown toenail which had been present a few weeks ago. They had not noticed the redness of his toe or foot at home. Related Data Home Medications ?Medication ?Instructions ?Recorded ?Confirmed baclofen 20 mg tablet 20 mg PO QID 02/28/24 02/28/24 cannabidiol 100 mg/mL oral mg PO 02/28/24 solution (Epidiolex) clobazam 10 mg tablet mg 02/28/24 diazepam 12.5 mg-15 mg-17.5 mg-20 [place] 02/28/24 mg rectal kit felbamate 600 mg/5 mL oral mg PO 02/28/24 suspension hydrocodone 5 mg-acetaminophen 325 2 tab PO Q6H PRN severe pain 02/28/24 02/28/24 mg tablet lamotrigine 100 mg tablet mg PO 02/28/24 (Lamictal) lamotrigine 200 mg tablet 200 mg 3XD 02/28/24 (Lamictal) levetiracetam 100 mg/mL oral PO 02/28/24 solution (Keppra) rufinamide 200 mg tablet mg PO 02/28/24 triamcinolone acetonide 0.1 % applic topical BID PRN 02/28/24 topical cream Previous Rx's ?Medication ?Instructions ?Recorded cefdinir 250 mg/5 mL oral 300 mg (6 mL) PO BID 7 days #84 mL 05/19/25 suspension Allergies Allergy/AdvReac Type Severity Reaction Status Date / Time Penicillins Allergy Intermediate Verified 05/19/25 12:43 cephalexin (From Keflex) Allergy Unknown Verified 05/19/25 12:43 doxycycline Allergy Unknown Verified 05/19/25 12:43 [facility] Social History Smoking Status: Never smoker Do you use any of these nicotine containing products: None Second hand tobacco smoke exposure: No How often do you have a drink containing alcohol: never How often do you have six or more drinks on one occasion: Never AUDIT-C Alcohol total score: 0 Non-prescribed substance use: denies use service: No Exam Narrative: Exam Narrative: Constitutional: Appears well-developed and well-nourished. Alert. Sitting up in his chair. Breathing easily through tracheostomy. While in the chair he did briefly fall asleep. He had a brief mild tonic-clonic seizure that lasted a few seconds and stopped on its own. This is baseline for him and he does have frequent seizures, well known to his parents.. HENT: Head: Atraumatic. Nose: Nose normal. Mouth/Throat: Oral mucosa is clear and moist. no trismus. Eyes: Conjunctivae normal. EOM normal. Pupils equal, round, and reactive to light. No scleral icterus. Neck: Normal range of motion. Neck supple. No tracheal deviation present. Cardiovascular: Normal rate, regular rhythm. No gallop. No friction rub. No murmur heard. Symmetric radial artery pulses Pulmonary/Chest: Effort normal. No stridor. No respiratory distress. No wheezes. No rales. No rhonchi . No tenderness. Abdominal: GJ tube in place. Skin around the tube looks good. Multiple healed abdominal incisions. Ostomy in place. Soft. Bowel sounds normal. No distension. No mass. No tenderness. No rebound. No guarding. Musculoskeletal: RUE: Normal range of motion. No tenderness. No deformity LUE: Normal range of motion. No tenderness. No deformity RLE: Normal passive range of motion. No deformity. He does have an area of redness that is roughly 6 x 10 cm on the medial ankle/foot with redness extending distally from that down the dorsum of 1st ray down to the 1st toe. The toenail of the 1st toe appears to be affected by an ingrown toenail. There is no active pus or paronychia at this time. Clinical presentation very suspicious for a spreading cellulitis on his toe, foot, up to his ankle. The redness is slightly warm. There is no palpable fluctuance. No crepitus. No apparent tenderness to palpation and he does seem to have normal passive range of motion in the ankle and toes. Brisk distal cap refill. LLE: Normal range of motion. No edema. No tenderness. No deformity Lymph: No ascending lymphangitis above the ankle. Neurological: Alert and oriented to person, place, and time. Normal strength. CN II-VII intact. No sensory deficit. GCS eye subscore is 4. GCS verbal subscore is 5. GCS motor subscore is 6. Normal coordination Skin: Skin is warm and dry. No rash noted. No pallor. Normal capillary refill. Psychiatric: Limited by mental status. Is at baseline according to his parents. Both parents seem appropriate and attentive. No concern for abuse or neglect Const: Vital Signs, click to edit/add: Vital Signs - 24 hr 05/19/25 12:36 Temperature 97.2 F L Pulse Rate [Right Pulse Oximeter] 92 Respiratory Rate 18 Blood Pressure [Le ft Forearm] 102/67 Pulse Oximetry 99 Oxygen Delivery Me thod Room Air Course Course ED Course: Recheck-patient transferred to bed for ultrasound. I re-evaluated his right ankle and foot. All the previous erythema from the toe and on the dorsum of the foot is gone and now he has a well-circumscribed erythema directly in a roughly 6 x 8 cm oval shaped on his medial ankle. There is no anterior or lateral redness or warmth. No signs of swelling of the ankle joint itself. The previous foot erythema is completely gone. Toe looks normal save for the healing ingrown toenail. Vital Signs Vital signs: Initial Vital Signs Temperature 97.2 F L 05/19/25 12:36 Temperature Source Temporal Artery Scan 05/19/25 12:36 Pulse Rate 92 05/19/25 12:36 Pulse Rhythm Regular 05/19/25 12:36 Pulse Strength 3+ Normal 05/19/25 12:36 Respiratory Rate 18 05/19/25 12:36 Blood Pressure 102/67 05/19/25 12:36 Blood Pressure Mean 78 05/19/25 12:36 Blood Pressure Position Sitting 05/19/25 12:36 Pulse Oximetry 99 05/19/25 12:36 Oxygen Delivery Method Room Air 05/19/25 12:36 Vital Signs Temperature 97.2 F L 05/19/25 12:36 Pulse Rate 92 05/19/25 12:36 Respiratory Rate 18 05/19/25 12:36 Blood Pressure 102/67 05/19/25 12:36 Pulse Oximetry 99 05/19/25 12:36 Oxygen Delivery Method Room Air 05/19/25 12:36 Temperature 97.2 F L 05/19/25 12:36 Pulse Rate 92 05/19/25 12:36 Respiratory Rate 18 05/19/25 12:36 Blood Pressure 102/67 05/19/25 12:36 Pulse Oximetry 99 05/19/25 12:36 Oxygen Delivery Method Room Air 05/19/25 12:36 Medical Decision Making MDM Narrative Medical decision making narrative: This patient presents for evaluation of skin redness affecting the medial aspect of his right ankle that was 1st noted yesterday by his caregiver/family. The history, physical exam is consistent with cellulitis. Interestingly when I initially evaluated him he had the erythema on the medial ankle and also a some erythema on the dorsum of the foot down to the big toe. On reexamination all the erythema in the foot and toe has resolved but the erythema on the ankle is persistent. Overall he is hemodynamically stable and nontoxic appearing. He is at his neurologic baseline. Laboratory workup is reassuring with normal white count. With a history of DVT, even though this erythema was pretty localized to the ankle, we did do an ultrasound is negative for DVT. There do not appear at this time to be any complication of cellulitis including abscess, necrotizing fascitis, lymphangitis, lymphadenitis, osteomyelitis, sepsis, or shock. The patient is not immunosuppressed or diabetic. Supportive outpatient management is indicated with antibiotics. Will put him on cefdinir. Patient has tolerated this in the past. Although the computer list cephalosporin is an allergy, mom says that it was more of complication. When the patient had a LL and he was given a cephalosporin (possibly Ceclor, his mother thinks) hit his white count withdraw. He does not truly have an allergic reaction to other cephalosporins. He has had cefdinir in the past without trouble. The family is instructed to follow-up with primary care physician to ensure no progression and rapid resolution and given precautions to return if high fever, spread greater than 2cm outside of the marked area, worsening pain, vomiting or any other worsening. Questions answered and return precautions reviewed. Lab Data Labs: Lab Results 05/19/25 Range/Units 13:50 WBC 5.71 (4.50-11.00) K/uL RBC 3.59 L (4.30-5.90) m/uL Hgb 12.6 L (13.5-17.5) gm/dL Hct 37.7 (37.0-53.0) % MCV 105 H (80-100) fL MCH 35 H (26-34) pg MCHC 33 (32-36) gm/dL RDW Coeff of An 12.3 (11.5-15.5) % Plt Count 208 (140-440) K/uL Neut % (Auto) 52.9 (42.0-72.0) % Lymph % (Auto) 26.6 (20-44) % [place] % (Auto) 9.6 (0.0-11.0) % Eos % (Auto) 6.3 (0.0-7.0) % Baso % (Auto) 0.9 (0.0-3.0) % Neut # (Auto) 3.02 (1.7-7.0) K/uL Lymph # (Auto) 1.52 (0.90-2.90) K/uL [place] # (Auto) 0.50 (0.00-0.90) K/UL Eos # (Auto) 0.36 (0.00-0.50) K/uL Baso # (Auto) 0.05 (0.00-0.30) K/uL Abs Immat Gran (auto) 0.21 (0.00-0.30) K/uL Imm/Tot Granulo (auto) 3.7 % Diff Slide Review Acceptable Review (Acceptable) Sodium 137 (135-149) mmol/L Potassium 4.6 (3.6-5.1) mmol/L Chloride 94 L (96-114) mmol/L Carbon Dioxide 33 H (20-32) mmol/L Anion Gap 10 (7-15) mEq/L BUN 16 (5-24) mg/dL Creatinine 0.4 L (0.5-1.5) mg/dL Estimated GFR 137 ml/min Glucose 95 (60-115) mg/dL Calcium 9.4 (8.4-10.6) mg/dL Imaging Data US Right LE: Attestation: I have reviewed the pertinent imaging results. Radiologist's impression: IMPRESSION: No DVT identified in the right lower extremity. Discharge Plan Discharge Clinical Impression: Cellulitis Patient Disposition: Home w/ Parent or Adult Condition: Stable Instructions: Cellulitis (ED) Additional Instructions: As we discussed, please start on the antibiotic (clindamycin) 3 times daily through his G-tube. This will help treat the skin infection on his foot and ankle. Even on the antibiotics, monitor the area of redness carefully. If he has spreading redness, higher fever, or if you notice other concerning symptoms, please come back to the ER right away. Please monitor the toenail on his big toe. If you notice increasing swelling, pus draining from around the toe, or if you have any other problems, please see his doctor or return to the ER right away. Please recheck with his regular doctor in 2-4 days. Prescriptions: New cefdinir 250 mg/5 mL suspension for reconstitution 300 mg PO BID 7 Days Qty: 84 0RF No Action lamotrigine [Lamictal] 200 mg tablet 200 mg 3XD hydrocodone-acetaminophen 5-325 mg tablet 2 tab PO Q6H PRN (Reason: severe pain) triamcinolone acetonide 0.1 % cream topical BID PRN baclofen 20 mg tablet 20 mg PO QID felbamate 600 mg/5 mL suspension PO lamotrigine [Lamictal] 100 mg tablet PO levetiracetam [Keppra] 100 mg/mL solution PO diazepam 12.5-15-17.5-20 mg kit [place] rufinamide 200 mg tablet PO clobazam 10 mg tablet Patient Comments: TAKE 1 1/2 TABLET VIA GIVE TUBE EVERY AM AND 1 TABLET EVERY PM Epidiolex 100 mg/mL solution PO Follow Up/Referrals: Luis Angel Flores MD [Primary Care Provider, Family Practice] Stand Alone Forms: [facility] Info Instructions
--- NOTE | 2025-05-19 13:05 | CRLHL7_ITS ---
For Patients: As a result of the Cures Act, medical imaging exams and procedure reports are released immediately into your electronic medical record. You may view this report before your referring provider. If you have questions, please contact your health care provider. INDICATION: Swelling. Pain. Redness. TECHNIQUE: Ultrasound venous duplex lower right extremity. Compression venous exam was performed using early-scale, color Doppler, and spectral Doppler imaging. FINDINGS: Sonographic imaging demonstrates the right common femoral, deep femoral, superficial femoral, popliteal, posterior tibial and greater saphenous veins to be fully compressible with normal color Doppler blood flow. IMPRESSION: No DVT identified in the right lower extremity. Dictated by Scott Murguia MD @ 05/19/2025 2:58:32 PM Dictated by: Scott Murguia MD @ 05/19/2025 14:58:45 (Electronically Signed)
--- OUTSIDE RECORDS SUMMARY | 2025-05-19 13:37 | XMS_ITS | Clinical Summary ---
Author Organization [facility] Address [address] [place] [address] Care Team Providers Care Impregnator Helper Name Role Phone Elsewhere, Pcp Primary Care Provider Unavailabl e Source Comments Patient records contain information from all sites at [facility]. For routine questions regarding patient records, call [phone] during business hours, M-F 8:00 AM - 5:00 PM Central Time. Record requests for emergency care only can be directed to [phone] at any time.[facility] Allergies Active Allergy Reactions Criticality Noted Date Comments Amoxicillin-Pot Clavulanate Other (see comments) High 07/01/2020 Acute generalized exanthematous pustulosis (severe cutaneous adverse reaction) noted 07/01/2020. Augmentin/ Amoxicillin use contraindicated. Camphor Other (see comments) 12/20/2010 Converted from Generic Allergy: Eucalyptus/Menthol/Campho r Fmcqemi-Iopncnityo-J enthol Other (see comments) 12/01/2020 Cefaclor Other (see comments) 02/17/2010 Converted from Generic Allergy: Cefaclorleukopenia leukopenia Euc Eqg-Ynaf-Omb,Rosem Oils-Pt Rash 05/14/2022 Levofloxacin Rash 05/14/2022 Penicillin Rash,Huang-Robin son Syndrome High 02/17/2010 SJS like reaction Petrolatum Other (see comments) 12/20/2010 Converted from Generic Allergy: Eucalyptus/Menthol/Campho r Turpentine Oil Other (see comments) 12/20/2010 Converted from Generic Allergy: Eucalyptus/Menthol/Campho r Medications mometasone (NASONEX) 50 mcg/actuation nasal spray Administer 2 sprays into each nostril daily. 49 g 3 12/30/19 Active DIASTAT ACUDIAL 12.5-15-17.5-20 mg rectal kit Insert 20 mg into the rectum as needed for seizures (if having more than 10 generalized tonic-clonic seizures per hour or if seizure lasts more than 3 minutes, may repeat once. if seizures continue, call 911). 11/27/19 Active albuterol (ACCUNEB) 2.5 mg /3 mL nebulizer solution Inhale 2.5 mg every 6 (six) hours as needed for wheezing. 09/21/19 Active ibuprofen (ADVIL,MOTRIN) 600 mg tablet 600 mg by g-tube route every 8 (eight) hours as needed for pain. Active levocetirizine (XYZAL) 5 mg tablet 5 mg by gastric tube route every evening. Active diazePAM (VALIUM) 10 mg tablet 1 tablet (10 mg total) by g-tube route 3 (three) times a day as needed (seizures). 30 tablet 06/30/20 Active bacitracin 500 unit/gram ointment Apply 1 Application topically as needed (redness, inflammation on skin). Active ipratropium-albut Chencho (DUONEB) 0.5-2.5 mg/3 mL nebulizer solution Inhale 3 mL by nebulization 4 (four) times a day as needed for shortness of breath. 06/26/20 22 Active ketoconazole (NIZORAL) 2 % cream Apply 1 Application topically 2 (two) times a day as needed for irritation or rash. 07/08/20 21 Active diphenhydramine-l idocaine-antacid (MAGIC MOUTHWASH) 1:1:1 Swish and spit 15 mL every 4 (four) hours as needed. Active clotrimazole-beta methasone (LOTRISONE) 1-0.05 % cream Apply 1 Application topically 2 (two) times a day as needed (rash or concerns for yeast infection). Apply to affected areas. Active nystatin-triamcin olone (MYCOLOG II) 100,000 Unit/g-0.1 % [...] gastric tube daily as needed (edema). Active azelastine (ASTEPRO) 205.5 mcg/spray (0.15 %) nasal spray Administer 1 spray into each nostril daily. 11 mL 02/27/20 23 Active clotrimazole (FUNGI CURE) 1 % external solution Apply 1 Application topically daily as needed (rash on head). 15 mL 02/27/20 23 Active pseudoephedrine (Sudafed) 30 mg tablet Take 30 mg by mouth every 6 (six) hours as needed for congestion. 01/28/20 22 Active acetic acid 0.25 % irrigation (sterile) Irrigate with as directed 2 (two) times a day. For groin to perirectal/jennifer kelsey area. 1000 mL 03/13/20 23 Active zinc oxide (DESITIN) 13 % cream Apply 1 Application topically as needed (skin cares). Apply to irritated perineal/jennifer-r ectal skin. 136 g 03/13/20 23 Active multivitamin with minerals liquid 10 mL by g-tube route. 06/26/20 22 Active benzoyl peroxide (BREVOXYL) 4 % external liquid Apply 1 Application topically. Active clindamycin (CLEOCIN T) 1 % external solution Apply 1 Application topically. 08/11/20 21 Active polyethylene glycol (MIRALAX) 17 gram/dose oral powder Administer 17 g via gastric tube daily as needed for constipation. 510 g 04/05/20 23 Active naloxone (NARCAN) 4 mg/actuation nasal spray Administer 1 spray (4 mg total) into one nostril as needed for reversal. Use 1 spray in 1 nostril. Repeat with second device in other nostril after 2-3 minutes if no or minimal response. 2 each 12/30/19 Active nystatin (NYSTOP) 100,000 unit/gram powder Apply 1 Application topically 3 (three) times a day. Apply to areas of intertrigo 60 g 12/30/19 24 Active nystatin (NYSTOP) 100,000 unit/gram powder Apply 1 Application topically 3 (three) times a day. Apply to areas of intertrigo 60 g 12/30/19 24 Active zolpidem (AMBIEN) 5 mg tablet Take 5 mg by mouth at bedtime as needed for sleep. Active acetaminophen (TylenoL) 325 mg tablet Administer 2 tablets (650 mg total) via small bowel tube 4 (four) times a day. 04/04/20 24 Active cannabidioL (Epidiolex) 100 mg/mL solution Administer 4 mL (400 mg total) via small bowel tube every morning AND 6 mL (600 mg total) every evening. 900 mL 04/04/20 Active felbamate (FelbatoL) 600 mg/5 mL suspension Take 10 mL (1,200 mg total) by mouth 2 (two) times a day AND 12.5 mL (1,500 mg total) daily. 2925 mL 04/04/20 Active lamoTRIgine (LaMICtaL) 100 mg tablet Administer 3.5 tablets (350 mg total) via small bowel tube 2 (two) times a day, in the morning and at 2 PM, AND 3 tablets (300 mg total) every evening. 900 tablet 04/04/20 Active levETIRAcetam (Keppra) 1,000 mg tablet Administer 2 tablets (2,000 mg total) via small bowel tube 2 (two) times a day. 360 tablet 4 12:25 PM CDT 04/04/20 Active rufinamide (BanzeL) 200 mg tablet Administer 1 tablet (200 mg total) via small bowel tube every morning AND 2 tablets (400 mg total) at bedtime. 90 tablet 11 04/04/20 24 Active LORazepam (Ativan) 1 mg tablet Administer 2 tablets (2 mg total) via small bowel tube every 8 (eight) hours for 3 days, THEN 2 tablets (2 mg total) every 12 (twelve) hours for 7 days, THEN 1 tablet (1 mg total) every 12 (twelve) hours for 7 days, THEN 1 tablet (1 mg total) at bedtime for 8 days. 68 tablet 4 12:25 PM CDT 04/04/20 24 Active DME Ostomy suppliesIndicatio ns:Acute Respiratory Failure With Hypoxia (HCC) DME Order 1 Unspecified 11 04/04/20 24 Active enoxaparin (Lovenox) 40 mg/0.4 mL injection Inject 0.4 mL (40 mg total) under the skin at bedtime. 16.8 mL 4 12:25 PM CDT 04/04/20 24 Active cloBAZam (Onfi) 2.5 mg/mL suspension Administer 6 mL (15 mg total) via small bowel tube daily AND 4 mL (10 mg total) at bedtime. 840 mL 04/04/20 24 Active oxyCODONE (Roxicodone) 5 mg immediate release tabletIndications :Acute Pain Administer 1 tablet (5 mg total) via gastric tube every 6 (six) hours as needed for pain or severe pain or score 7-10 of 10 for up to 12 doses Indication: Acute Pain. 12 tablet 04/17/20 24 Active triamcinolone (Kenalog) 0.1 % cream Apply 1 Application topically 2 (two) times a day for 14 days. Apply to trunk and extremities. 30 g 04/26/20 24 Active HYDROcodone-aceta minophen (Belfast) 5-325 mg per tablet Take 2 tablets by mouth every 6 (six) hours as needed. 06/16/20 24 Active silver nitrate (ArzoL) 75-25 % topical stick Apply topically daily as needed. 07/01/20 23 Active sodium chloride 1,000 mg disintegrating tablet 05/18/20 24 Active silver nitrate (ArzoL) 75-25 % topical stick Apply 1 Application topically See Admin Instructions. 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 Gastrostomy Status 09/27/2018 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, other, specified, in remission lymphoblastic leukemia Ulcer Skin Chronic 01/31/2014 Overview (02/02/2017): Pressure Ulcer, Other Site Cerebrovascular Disease 01/31/2014 Overview (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 Med Refill 04/26/2025 8:43 AM CDT - 04/26/2025 11:59 PM CDT Hospital Encounter Department of Radiology, [facility] in [place], [place] [address] [place] [phone] Sis Ruiz APRN, C.N.P., D.N.P. Discharge Disposition: Home or Self Care 04/26/2025 8:36 AM CDT - 04/26/2025 11:59 PM CDT Hospital Encounter Division of Gastroenterology in [address] [phone] Sis Ruiz, AKASH, C.N.P., D.N.P. Chiqui Wiggins APRN, BYPRODUCTS MAKER, DNAP Dietary Counseling And Surveillance For Enteral Nutrition Discharge Disposition: Home or Self Care 04/16/2025 Orders Only Division of Endocrinology in [place], [place] [address] [place] [phone] Mariela Vieyra R.N. Dietary Counseling And Surveillance For Enteral Nutrition (Primary Dx) 04/15/2025 Refill Division of Trauma Critical Care and General Surgery in [address] [phone] Yadira Fam C.N.P., R.N. Med Refill 03/13/2025 11:20 AM CDT - 03/13/2025 11:59 PM CDT Hospital Encounter Department of Laboratory Medicine in [place], [place] [address] [place] [phone] Jose Martin Eaton M.D. Medication Therapy Ferry Captain Not Anticoagulant Discharge Disposition: Home or Self Care 03/13/2025 Orders Only Division of Trauma Critical Care and General Surgery in [address] [phone] Osmel Diaz P.A.-C. Jejunostomy Status Post (HCC) (Primary Dx) 03/13/2025 Orders Only Division of Trauma Critical Care and General Surgery in [place], [place] [address] [place] [phone] Osmel Diaz P.A.-C. Wound Abdominal Wall Open Subsequent (Primary Dx) from Last 3 Months Immunizations Immunization Administration Dates Next Due DTP 02/11/1991, 2,1980,1979,1980 Influenza, Unspecified 05/26/2017,2015,06/27/2015,2013,06/29/2012,07/07/2010,06/26/2008,1 ,07/12/2006,07/16/2005, 004,08/27/2003 MMR 05/14/1981 PCV13 01/13/2016 PPSV23 09/20/2006 SARS-COV-2 (COVID-19) - MODERNA(Discontinued) 04/28/2022,06/11/2021 Td (Adult), adsorbed 07/07/2010 Family History Medical History Relation Name Comments Gestational diabetes Daughter neeta hilario Sleep apnea Father andrés a yanelis Ulcerative colitis Father andrés a yanelis Diabetes type II Grandfather Pernicious [...] 1 neeta hilario Thyroid disease Sister 2 andrés a yanelis Relation Name Status Comments Daughter neeta hilario Father andrés a yanelis Grandfather Grandmother maternal Maternal Grandfather teresa aguirre Maternal Grandmother Teresa leon Mother Ke hilario Paternal Grandfather Suleman aguirre Paternal Grandmother shauna hilario Sister 1 neeta hilario Sister 2 andrés hilario Social History Tobacco Use Types Packs/Day Years Used Date Smoking Tobacco: Never Smokeless Tobacco: Never Tobacco Cessation:Counseling Given: Not Answered Alcohol Use Standard Drinks/Week Comments Never 0 (1 standard drink = 0.6 oz pur e alcohol) [facility] Utilities Answer Date Recorded In the past 12 months has e [employer], gas, oil, or water [employer] threatened to shut off services in your [...] your living situation today? I have a [facility] place to live 04/23/2024 Sex and Gender Information Value Date Recorded Sex Assigned at Male 12/11/2021 2:11 PM CDT Legal Sex Male 7:53 AM JANITOR CARETAKER Gender Identity Male 12/11/2021 1:44 PM CDT Sexual Orientation Straight 12/11/2021 2: 11 PM CDT Last Filed Vital Signs Vital Sign Reading Time Taken Comments Blood Pressure 118/99 09/08/2024 1:37 PM JANITOR CARETAKER Pulse 85 09/08/2024 1:37 PM JANITOR CARETAKER Temperature 36.6 C (97.9 F) 06/23/2024 12:51 PM CDT Respiratory Rate 16 05/03/2024 10:48 AM CDT Oxygen Saturation 98% 05/03/2024 12:00 PM CDT Inhaled Oxygen Concentration - - Weight 60.6 kg (133 lb 9.6 oz) 09/08/2024 3:02 P M JANITOR CARETAKER Height 156 cm (5' 1.42) 04/23/2024 10:15 AM CDT Body Mass Index 24.9 04/23/2024 10:15 AM CDT Plan of Treatment Upcoming Encounters Date Type Department Care Team (Latest Contact Info) Description 05/28/2025 1:15 PM CDT Clinical Communication Virtual Review in [place], [place] [address] [place] [phone] 05/29/2025 10:00 AM CDT Comprehensive Visit Department of Nutrition and Diabetes Education in [place], [place] [address] [place] [phone] Ivon Franklin APRN, C.N.P., M.S. [address] [place] [phone] 05/29/2025 11:00 AM CDT Comprehensive Visit Division of Endocrinology in [address] [phone] Ivon Franklin APRN, C.N.P., M.S. [address] [place] [phone] Health Maintenance Due Date Last Done Comments CT Colonography 1980 Cologuard 1980 Colonoscopy 1980 Colorectal Cancer Screening 1980 FIT 1980 HIV Screening 1980 Hepatitis C Screening 1980 Lipid (Cholesterol) Screening 1980 IPV Vaccines (4 of 4 - 4-dose series) 1984 1980, 1980, 1980 Hepatitis A Vaccines (1 of 2 - Risk 2-dose series) 02/15/1999 Hepatitis B Vaccines (1 of 3 - 19+ 3-dose series) 02/15/1999 HPV Vaccines (1 - 3-dose SCDM series) 02/15/2007 DTaP,Tdap,and Td Vaccines (8 - Td or Tdap) 07/10/2020 07/10/2010, 07/07/2010, 02/11/1991, Additional history exists Depression Screening (Annual PHQ-2) 09/13/2024 COVID-19 Vaccine (2024- season) 2025 04/28/2022, 06/11/2021, 12/18/2020, Additional history exists Influenza Vaccine (#1) 2025 , 06/04/2021, 05/28/2020, Additional history exists Creatinine Level (Kidney Function Test) 08/28/2025 08/28/2024, 07/25/2024, 06/27/2024, Additional history exists Potassium Level 08/28/2025 08/28/2024, 07/14, 06/27/2024, Additional history exists Sodium Level 08/28/2025 08/28/2024, 07/14, 06/27/2024, Additional history exists Fasting Glucose for Diabetes Screening 08/28/2027 08/28/2024, 07/25/2024, 06/27/2024, Additional history exists Pneumococcal vaccine (0-49 years) Aged Out 01/13/2016, 09/20/2006 No longer eligibl e based on patient's age to complete this topic Glucose Test for Med Monitoring Discontinued 08/28/2024, 07/25/2024, 06/27/2024, Additional history exists Medical Devices Implanted Type Area Skein Washer Device Identifier Shelf Expiration Date Model / Serial / Lot Parker [employer]hn Seprafilm 3x5 - [id number] Implanted:Qt y: 1 on 03/10/2024 by Aleks Hinkle M.D. at [facility] Mesh or Patch N/A: Abdomen Moore 03/11/2026 [id number] / / [id number] [facility] Treasure Vicrl Knit 12x12 - [id number] Implanted:Qt y: 1 on 03/18/2024 by Armand Barr M.D. at [facility] Mesh or Patch Midline: Abdomen Ethicon 08/12/2028 [id number] / / [id number] Stnt Uret Inl 6fx24 - Sna - [id number] Implanted:Qt y: 1 on 04/05/2023 by Erika Londono M.D. at [facility] Ureteral Stent C.R.Bard [id number] 04/28/2027 [id number] / NA / [id number] Explanted Type Area Skein Washer Device Identifier Shelf Expiration Date Model / Serial / Lot Stnt Uret Inl 7fx24 - [id number] Implanted:Qty : 1 on 02/22/2023 by Danita Munoz M.D. at [facility] Explanted:Qty : 1 on 04/05/2023 by Erika Londono M.D. Ureteral Stent Left: Ureter C.R.Bard [id number] 08/06/2026 [id number] / / [id number] Procedures Procedure Name Priority Date/Time Associated Diagnosis [...] Dietary Counseling And Surveillance For Enteral Nutrition FELBAMATE (FELBATOL) LEVEL, S Routine 03/13/2025 11:52 AM CDT Medication Therapy [facility] Not Anticoagulant LEVETIRACETAM LEVEL, S Routine 03/13/2025 11:52 AM CDT Medication Therapy [place] Not Anticoagulant LAMOTRIGINE LEVEL, S Routine 03/13/2025 11:52 AM CDT Medication Therapy [facility] Not Anticoagulant RUFINAMIDE, S Routine 03/13/2025 11:52 AM CDT Medication Therapy [facility] Not Anticoagulant CLOBAZAM AND METABOLITE Routine 03/13/2025 11:52 AM CDT Medication Therapy [facility] Not Anticoagulant BASIC METABOLIC PANEL, S/P Routine 08/28/2024 2:07 PM JANITOR CARETAKER Hyponatremia from Last 3 Months or Most Recently Relevant to Health Maintenance Results * [place] Fluoro Less Than 1 [...] AM CDT) 04/26/2025 9:19 AM CDT Impressions [facility] - 04/26/2025 9:43 AM CDT Post-op Diagnoses: - The gastrostomy tube had been in place for an extended length of time and was removed and replaced with a 22 Fr Avanos FARIHA PEG-J gastrostomy tube. - No specimens collected. Narrative [facility] - 04/26/2025 9:43 AM CDT Gary 6 [...] been signed electronically. Number of Addenda: 0 us Sis Ruiz APRN, C.N.P., D.N.P. GI PROCEDURE ORDERABLES Final Result [facility] NA * (ABNORMAL) Clobazam and Metabolite (03/13/2025 11:52 AM CDT) Clobazam 336.0(H) 30 - 300 ng/mL 03/15/2025 12:43 AM CDT [facility] N-desmethylclobazam 9530.0(H) 300 - 3000 ng/mL 03/15/2025 12:43 AM CDT [facility] Comment: ----ADDITIONAL INFORMATION---- This test was developed and its performance characteristics determined by [facility] in a manner consistent with CLIA requirements. This test has not been cleared or approved by the U.S. Food and Drug Administration. Blood (Blood, Venous) 03/13/2025 11:52 AM CDT 03/14/2025 3:06 PM CDT Jose Martin Eaton M.D. LAB BLOOD ADD-ON Final Result Performing Organization Address [facility] Co de Phone Number [facility] [address] [place] [address] [facility] [address] [place] [address] [place] [address] * Rufinamide, S (03/13/2025 11:52 AM CDT) Rufinamide, S 12.7 5.0 - 30.0 mcg/mL 03/15/2025 3:49 PM CDT [facility] Comment: ----ADDITIONAL INFORMATION---- This test was developed and its performance characteristics determined by [facility] in a manner consistent with CLIA requirements. This test has not been cleared or approved by the U.S. Food and Drug Administration. Blood (Blood, Venous) 03/13/2025 11:52 AM CDT 03/14/2025 7:16 AM CDT us Jose Martin Eaton M.D. LAB BLOOD NON ADD-ON Final Re sult Performing Organization Address City/[facility]/ZIP Co de Phone Number [facility] [address] [place] [address] [facility] [address] [place] [address] [place] [id number] * (ABNORMAL) Felbamate (Felbatol) Level (03/13/2025 11:52 AM CDT) Felbamate (Felbatol), S 149.6(H) 30.0 - 80.0 mcg/mL 03/14/2025 4:15 PM CDT [facility] Comment: ----ADDITIONAL INFORMATION---- This test was developed and its performance characteristics determined by [facility] in a manner consistent with CLIA requirements. This test has not been cleared or approved by the U.S. Food and Drug Administration. Blood (Blood, Venous) 03/13/2025 11:52 AM CDT 03/14/2025 7:16 AM CDT Jose Martin Eaton M.D. LAB BLOOD NON ADD-ON Final Re sult Performing Organization Address [facility] Co de Phone Number [facility] [address] [place] [address] [facility] [address] [place] [address] * (ABNORMAL) Levetiracetam Level (03/13/2025 11:52 AM CDT) Levetiracetam, S 123.7(H) 10.0 - 40.0 mcg/mL 03/14/2025 4:22 PM CDT [facility] Comment: ----ADDITIONAL INFORMATION---- This test was developed and its performance characteristics determined by [facility] in a manner consistent with CLIA requirements. This test has not been cleared or approved by the U.S. Food and Drug Administration. Blood (Blood, Venous) 03/13/2025 11:52 AM CDT 03/14/2025 7:16 AM CDT us Jose Martin Eaton M.D. LAB BLOOD NON ADD-ON Final Re sult Performing Organization Address [facility]/ZIP Co de Phone Number [facility] [address] [place] [address] [facility] [address] [place] [address] [place] [address] * Lamotrigine Level (03/13/2025 11:52 AM CDT) Pathologist [facility] Lamotrigine, S 12.2 3.0 - 15.0 mcg/mL 03/14/2025 12:16 PM CDT [facility] Comment: ----ADDITIONAL INFORMATION---- This test was developed and its performance characteristics determined by [facility] in a manner consistent with CLIA requirements. This test has not been cleared or approved by the U.S. Food and Drug Administration. Blood (Blood, Venous) 03/13/2025 11:52 AM CDT 03/14/2025 7:16 AM CDT us Jose Martin Eaton M.D. LAB BLOOD NON ADD-ON Final Re sult [facility] [address] [place] [address] [facility] [address] [place] [address] [place] [address] * (ABNORMAL) Basic Metabolic Panel (08/28/2024 2:07 PM JANITOR CARETAKER) Pathologist [facility] Potassium, P 4.3 3.6 - 5.2 mmol/L 08/29/2024 4:02 AM JANITOR CARETAKER [facility] Sodium, P 134(L) 135 - 145 mmol/L 08/29/2024 4:02 AM JANITOR CARETAKER [facility] Chloride, P 93(L) 98 - 107 mmol/L 08/29/2024 4:02 AM JANITOR CARETAKER [place] Bicarbonate, P 30(H) 22 - 29 mmol/L 08/29/2024 4:02 AM JANITOR CARETAKER [facility] Anion Gap, P 11 7 - 15 08/29/2024 4:02 AM JANITOR CARETAKER [facility] BUN (Blood Urea Nitrogen), P 9 8 - 24 mg/dL 08/29/2024 4:02 AM JANITOR CARETAKER [facility] Creatinine 0.45(L) 0.74 - 1.35 mg/dL 08/29/2024 4:02 AM JANITOR CARETAKER [facility] Estimated GFR (eGFR) >90 >=60 mL/min/BSA 08/29/2024 4:02 AM JANITOR CARETAKER [facility] Comment: Estimated GFR calculated using the 2020 CKD_EPI creatinine equation. Calcium, Total, P 9.4 8.6 - 10.0 mg/dL 08/29/2024 4:02 AM JANITOR CARETAKER [facility] Glucose, P 85 70 - 140 mg/dL 08/29/2024 4:02 AM JANITOR CARETAKER [facility] Blood (Blood, Venous) 08/28/2024 2:07 PM JANITOR CARETAKER 08/28/2024 6:07 PM JANITOR CARETAKER us Sis Girish Ruiz APRN, C.N.P., D.N.P. LAB BLOOD ADD -ON Final Result [facility] [address] [place] [address], [facility] [address] [place] [address] from Last 3 Months or Most Recently Relevant to Health Maintenance Insurance [place] [address] MEDICARE Advance Directives For more information, please contact: [phone] * Full Code (Latest Code Status on File) Date Activated Date Inactivated Comments 04/20/2024 11:48 PM 04/26/2024 2:32 PM Question Answer Comments Full Code: Discussed * Full Code Date Activated Date Inactivated Comments 02/28/2024 3:15 PM 04/04/2024 3:49 PM Question Answer Comments Full Code: Not [...] PM Question Answer Comments Full Code: Discussed Healthcare Agents on File Name Relationship Healthcare Agent Relationshi p Communication Shelby Hilario Mother Health Care Agent Andrés Hilario Health Care Agent Care Teams Impregnator Helper Relationship Specialty Start Date End Date Elsewhere, Pcp PCP - General Family Medicine 06/24/18
--- OUTSIDE RECORDS SUMMARY | 2025-05-19 13:37 | XMS_ITS | Encounter Summary ---
Author Organization [facility] Address [address] [place] [id number] Care Team Providers Care Bottling Room Worker Name Role Phone Elsewhere, Pcp Primary Care Provider Unavailabl e Reason for Visit * Reason Comments Med Refill Encounter Details Date Type Department Care Team (Late st Contact Info) Description 04/27/2025 Refill Division of Trauma Critical Care and General Surgery in [place], [place] [address] [place] [phone] Yadira Douglass C.N.Thierry., R.N. [address] [place] [phone] Med Refill Social History Tobacco Use Types Packs/Day Years Used Date Smoking Tobacco: Never Smokeless Tobacco: Never Alcohol Use Standard Drinks/Week Comments Never 0 (1 standard drink = 0.6 oz pur e alcohol) [facility] Utilities Answer Date Recorded In the past 12 months has [facility] [employer], gas, oil, or water [employer] threatened to shut off services in your [...] your living situation today? 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 [address] [place] [phone] 05/29/2025 11:00 AM CDT Comprehensive Visit Division of Endocrinology in [address] [phone] Ivon Franklin APRN, C.N.P., M.S. [address] [place] [phone] documented as of this encounter Visit Diagnoses Not on filedocumented in this encounter Care Teams Bottling Room Worker Relationship Specialty Start Date End Date Elsewhere, Pcp PCP - General Family Medicine 06/24/18 documented as of this encounter
--- OUTSIDE RECORDS SUMMARY | 2025-05-19 13:37 | XMS_ITS ---
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 Other Current Plans iron dextran (INFED)* Plan Start Date:06/22/2024 Plan Provider:Sis Brown APRN, C.N.P., D.N.P. Linked Problems Anemia Macrocytic Treatment Medications No medications scheduled. Past Treatment and Therapy Plans No past plan information found. Lifetime Dose Tracking * Chemical Lifetime Dose Automatic Entry Manual Entr y Radiation 478.15 mGy 478.15 mGy 0 mGy Fluoro Time 43.455 minutes 43.455 minutes 0 minutes DAP (uGy-m2) 434.32 uGy-m2 434.32 uGy-m2 0 uGy-m2 Resolved Problems Problem Noted Date Diagnosed Date Resolved Date Hypoxia Sleep Related 06/27/20202019 Hypokalemia 06/27/2020 06/30/2020
--- OUTSIDE RECORDS SUMMARY | 2025-05-19 13:38 | XMS_ITS | Encounter Summary ---
Author Organization [facility] Address [address] [place] [phone] Care Team Providers Care Endoscopy Rn Name Role Phone Elsewhere, Pcp Primary Care Provider Unavailabl e Reason for Referral * Gastrointestinal (Routine) - Closed Specialty Diagnoses / Procedures Referred By Valorie copeland Referred To Contact Diagnoses Dietary Counseling And Surveillance For Enteral Nutrition Procedures EGD Percutaneous Endoscopic Gastrostomy/Jejunostomy Sis Brown APRN, C.N.P., D.N.P. [address] [place] [phone] Phone: tel: fax: [facility] Referral ID Status Reason Start Date Expiration Date Visits Re quested Visits Authorized [id number] Closed 04/16/2025 07/17/2026 1 1 Encounter Details Date Type Department Care Team (Late st Contact Info) Description 04/16/2025 Orders Only Division of Endocrinology in [place], [place] [address] [place] [phone] Mariela Vieyra RMayNMay [address] [place] [phone] Dietary Counseling And Surveillance For Enteral Nutrition (Primary Dx) Social History Tobacco Use Types Packs/Day Years Used Date Smoking Tobacco: Never Smokeless Tobacco: Never Alcohol Use Standard Drinks/Week Comments Never 0 (1 standard drink = 0.6 oz pur e alcohol) [facility] Utilities Answer Date Recorded In the past 12 months has [employer], gas, oil, or water [employer] threatened to shut off services in your [...] your living situation today? 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 [address] [place] [phone] 05/29/2025 11:00 AM CDT Comprehensive Visit Division of Endocrinology in [place], [place] [address] [place] [address] Ivon Franklin APRN, Girish.N.P., M.S. 200 [place] [phone] documented as of this encounter Visit Diagnoses Diagnosis Dietary Counseling And Surveillance For Enteral Nutrition- Primary documented in this encounter Care Teams Endoscopy Rn Relationship Specialty Start Date End Date Elsewhere, Pcp PCP - General Family Medicine 06/24/18 documented as of this encounter
--- OUTSIDE RECORDS SUMMARY | 2025-05-19 13:38 | XMS_ITS | Encounter Summary ---
Author Organization [facility] Address [address] [place] [address] Care Team Providers Care Procurement Accountant Name Role Phone Elsewhere, Pcp Primary Care Provider Unavailabl e Reason for Visit * Reason Comments Med Refill Encounter Details Date Type Department Care Team (Late st Contact Info) Description 04/15/2025 Refill Division of Trauma Critical Care and General Surgery in [place], [place] [address] [place] [phone] Yadira Douglass C.N.Thierry., R.N. [address] [place] [phone] Med Refill Social History Tobacco Use Types Packs/Day Years Used Date Smoking Tobacco: Never Smokeless Tobacco: Never Alcohol Use Standard Drinks/Week Comments Never 0 (1 standard drink = 0.6 oz pur e alcohol) [facility] Utilities Answer Date Recorded In the past [address] [facility] [employer], gas, oil, or water [employer] threatened to shut off services in your [...] your living situation today? 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 [address] [place] [phone] 05/29/2025 11:00 AM CDT Comprehensive Visit Division of Endocrinology in [address] [phone] Ivon Franklin APRN, C.N.P., M.S. [address] [place] [phone] documented as of this encounter Visit Diagnoses Not on filedocumented in this encounter Care Teams Procurement Accountant Relationship Specialty Start Date End Date Elsewhere, Pcp PCP - General Family Medicine 06/24/18 documented as of this encounter
[2025-05-19 14:00] LABS: Hematocrit 37.7 % (37.0-53.0); Hemoglobin* 12.6 gm/dL (13.5-17.5); Immature Granulocytes Abs Auto 0.21 K/uL (0.00-0.30); Immature Granulocytes Pct Auto 3.7 %; Lymphocytes Absolute Auto 1.52 K/uL (0.90-2.90); Mean Corpuscular HGB Conc 33 gm/dL (32-36); Mean Corpuscular Hemoglobin 35 pg (26-34); Mean Corpuscular Volume 105 fL (80-100); RDW Coefficient of Variation % 12.3 % (11.5-15.5); Red Blood Count 3.59 m/uL (4.30-5.90); White Blood Count* 5.71 K/uL (4.50-11.00)
[2025-05-19 14:16] LABS: Chloride* 94 mmol/L (96-114)
[2025-05-19 14:17] LABS: Potassium* 4.6 mmol/L (3.6-5.1); Sodium* 137 mmol/L (135-149)
[2025-05-19 14:19] LABS: Blood Urea Nitrogen* 16 mg/dL (5-24); Creatinine* 0.4 mg/dL (0.5-1.5); Estimated Glomerular Filt Rate 137 ml/min
[2025-05-19 14:20] LABS: Anion Gap 10 mEq/L (7-15); Calcium* 9.4 mg/dL (8.4-10.6); Carbon Dioxide* 33 mmol/L (20-32); Glucose* 95 mg/dL (60-115)
[2025-05-19 14:22] LABS: Slide Review Reflex Yes
[2025-05-19 14:23] LABS: Slide Review Acceptable Review (Acceptable)
== END 2025-05-19 15:58 | disposition home or self-care (01) ==
PROVIDERS: Emergency Provider Emergency Medicine; PCP Family Medicine
DX: L03.115 Cellulitis of right lower limb (principal); F79 Unspecified intellectual disabilities; F81.9 Developmental disorder of scholastic skills, unspecified
CPT/HCPCS: 36415; 80048; 85025; 93971; 99283; 99284